=== PATIENT | male | born 1950 | race Caucasian/White ===

== ENCOUNTER 2017-12-04 18:30 | Inpatient (IN) | payer MEDICARE, MEDICAID, SELFPAY ==
[2017-02-20 12:18] VITALS: BMI 46.4
[2017-12-04 18:59] VITALS: BP 154/86; PULSE 102; RESP 18; TEMP 36.7; O2SAT 94; BMI 35.9
--- NOTE | 2017-12-04 19:48 | PCM.HP.STD ---
Problem List (1) Fall Status: Acute (2) Traumatic brain injury Status: Acute (3) Intraparenchymal hemorrhage of brain Status: Acute (4) Subarachnoid hemorrhage Status: Acute (5) Subdural hematoma Status: Acute (6) Intraventricular hemorrhage Status: Acute (7) Right scapula fracture Status: Acute (8) Alcohol intoxication Status: Acute (9) Tobacco abuse Status: Chronic (10) Sleep apnea Status: Chronic (11) Acute respiratory failure Status: Acute (12) Acute kidney injury Status: Acute (13) Aspiration pneumonia Status: Acute (14) Dysphagia Status: Acute (15) Diabetes mellitus Status: Chronic (16) Insomnia Status: Chronic (17) Vitamin D deficiency Status: Chronic (18) Depression Status: Chronic (19) GERD (gastroesophageal reflux disease) Status: Chronic (20) BPH (benign prostatic hyperplasia) Status: Chronic (21) Restless leg syndrome Status: Chronic (22) Hyperlipidemia Status: Chronic Qualifiers: (23) COPD (chronic obstructive pulmonary disease) Status: Chronic (24) Hypertension Status: Chronic Qualifiers: (25) Morbid obesity Status: Chronic (26) CAD (coronary artery disease) Status: Chronic History of Present Illness Date of Admission: 12/04/17 Chief Complaint: Here for rehabilitation, strengthening, prior to disposition determination. The patient is a 67 year old Male with below past medical history presented to [facility] as trauma after a falling down 15 steps while intoxicated by alcohol. Patient suffered multiple brain bleeds including intraparenchymal hemorrhage, subarachnoid hemorrhage, subdural hematoma, intraventricular hemorrhage, pulmonary contusions. He had right scapular fracture which was treated conservatively without surgery, also had right iliac hematoma. Patient suffered right sided weakness, was intubated, and admitted to NSICU. His respiratory status improved, and he was extubated, and transferred to the floor. However, he was weak, and had increased respiratory secretions, developed respiratory distress, and was transferred back to SICU and reintubated. He was eventually weaned off ventilator and extubated, transferred to the floor again. Again, he went into respiratory distress, transferred back to SICU and reintubated. Was extubated again, became stronger, respiratory secretions decreased, and was able to clear his secretions. Due to risk of aspiration,failed swallowing study, NPO recommended, PEG tube was placed for feeding. Patient is DNRCC-A and does not want tracheostomy. He suffers right hemiplegia, flaccid paralysis. He is on home CPAP with setting of 14CM, with 5 Liters oxygen bled in. He is on Flagyl, Cefepime via left upper extremity PICC for aspiration pneumonia, fever. He has moist non-productive cough, and was given Lasix 40MG IV for fluid overload. He is incontinent of urine. He has stage 2 coccyx pressure ulcer. 12/04/2017 Admit to TCU with debility, here for rehabilitation, strengthening, prior to disposition determination. 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) S/P CABG x3 with right radial to LAD, SVG to RCA, and SVG to OM 2; stenting to LAD in February 2017; Presence of aortocoronary bypass graft (Chronic) CABG X 3 2001 ?, Radial artery -LAD, SVG-RCA, SVG-OM2 Non-ST elevation myocardial infarction (NSTEMI), initial care episode (Chronic) 02/16/17 Nicotine dependence (Chronic) Ischemic cardiomyopathy (Chronic) Restless leg syndrome (Chronic) Hyperlipidemia (Chronic) COPD (chronic obstructive pulmonary disease) (Chronic) Hypertension (Chronic) Morbid obesity (Chronic) CAD (coronary artery disease) (Chronic) Stented coronary artery (Chronic) [facility] w/[id number] LAD (grafts occluded X 3) 02/20/17 Former smoker (Chronic) quit February 2017 Diabetes mellitus type 2 in obese (Chronic) Hx of CABG (Chronic) CABG X3 rADIAL ARTERY-lad, svg-rca, svg-om2. MULTIPLE CORONARY STENTS Medical History: Medical History (Last Updated 10/13/17 @ 09:44 by Jeannie Zavala) Encounter for long-term current use of high risk medication (Acute) Z79.899 Obstructive sleep apnea (Acute) G47.33 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) I25.810 S/P CABG x3 with right radial to LAD, SVG to RCA, and SVG to OM 2; stenting to LAD in February 2017; Non-ST elevation myocardial infarction (NSTEMI), initial care episode (Chronic) I21.4 02/16/17 Nicotine dependence (Chronic) F17.200 Ischemic cardiomyopathy (Chronic) I25.5 FUO (fever of unknown origin) (Acute) Restless leg syndrome (Chronic) Hyperlipidemia (Chronic) E78.5 Hypertensive emergency (Acute) I16.1 Demand ischemia (Acute) I24.8 COPD (chronic obstructive pulmonary disease) (Chronic) J44.9 Hypertension (Chronic) I10 Morbid obesity (Chronic) E66.01 Systolic CHF, acute (Acute) I50.21 CAD (coronary artery disease) (Chronic) I25.10 Stented coronary artery (Chronic) [facility] w/[id number] LAD (grafts occluded X 3) 02/20/17 Former smoker (Chronic) Z87.891 quit February 2017 Acute respiratory failure with hypoxemia (Acute) J96.01 Diabetes mellitus type 2 in obese (Chronic) E11.69, E66.9 Allergies atorvastatin Allergy (Verified 10/16/17 09:47) Hives cilostazol Allergy (Verified 10/16/17 09:47) Hives colestipol Allergy (Verified 10/16/17 09:47) Hives diltiazem Allergy (Verified 10/16/17 09:47) Hives gemfibrozil Allergy (Verified 10/16/17 09:47) Hives naproxen [From Naprosyn] Allergy (Verified 10/16/17 09:47) Hives niacin Allergy (Verified 10/16/17 09:47) Hives Penicillins Allergy (Verified 10/16/17 09:47) Hives pravastatin Allergy (Verified 10/16/17 09:47) Hives procaine [From Novocain] Allergy (Verified 10/16/17 09:47) Hives rosuvastatin Allergy (Verified 10/16/17 09:47) Hives simvastatin Allergy (Verified 10/16/17 09:47) Hives isosorbide Adverse Reaction (Severe, Verified 10/16/17 09:47) Unknown Home Medications: Ambulatory Orders Medication Instructions Recorded Amitriptyline HCl 100 mg GT QHS 02/16/17 Cholecalciferol (Vitamin D3) 5,000 unit GT DAILY 02/16/17 [Vitamin D3] Duloxetine HCl 60 mg GT DAILY 02/16/17 Lactase 1 tab GT TIDCM 02/16/17 Lansoprazole [Prevacid] 30 mg GT BIDCM 02/16/17 Nitroglycerin 0.4 mg SL PRN PRN 02/16/17 Ropinirole HCl [Requip] 0.5 mg GT QHS 02/16/17 Tamsulosin HCl [Flomax] 0.4 mg GT QHS 02/16/17 traMADol [Ultram] 50 mg GT TID PRN 02/16/17 Nicotine [Nicoderm] 14 mg TRANSDERM. DAILY 03/30/17 lisinopril 20 mg tablet 20 mg GT QDAY 05/20/17 glyburide 5 mg tablet 5 mg GT DAILY@1800 10/13/17 Acetaminophen 650 mg GT 4X/DAY PRN 12/04/17 Acetylcysteine 200 mg MC Q4H 12/04/17 Albuterol Inhaler [Ventolin Hfa 1 - 2 puff INHALATION 4X/DAY PRN 12/04/17 (SP)] PRN Amantadine Liquid 100 mg GT DAILY 12/04/17 Aspirin [Aspirin, Baby] 81 mg GT DAILY@0800 12/04/17 Budesonide Aerosol [Pulmicort 0.5 mg INHALATION BID 12/04/17 Aerosol] Cefepime HCl [Maxipime] 2 gm IV Q12 12/04/17 Clopidogrel Bisulfate [Plavix] 75 mg GT DAILY 12/04/17 Furosemide [Lasix] 40 mg GT BID 12/04/17 Guaifenesin [Mucinex] 600 mg PO BID 12/04/17 Insulin Glargine,Hum.rec.anlog 10 unit SQ DAILY@0600 12/04/17 [Lantus] Insulin Glargine,Hum.rec.anlog 15 unit SQ QHS 12/04/17 [Lantus] Ipratropium [Atrovent Aerosols] 0.5 mg INHALATION Q6H.RT 12/04/17 Isosorbide Mononitrate [Imdur] 60 mg GT BID 12/04/17 Magnesium Oxide [Mag-Ox 400] 400 mg GT TIDCM 12/04/17 Metoprolol Tartrate [Lopressor 75 mg GT TID 12/04/17 (beta stepan)] Metronidazole [Flagyl] 500 mg IV Q8H 12/04/17 Potassium Chloride [K-Dur] 20 meq GT DAILY@0800 12/04/17 Pravastatin [Pravachol] 80 mg PO QHS 12/04/17 ranitidine 150 mg capsule 150 mg GT QHS 12/04/17 Surgical History: Surgical History (Last Reviewed 10/16/17 @ 09:47 by Adele Bueno) Presence of coronary angioplasty implant and graft (Acute) Z95.5 Presence of aortocoronary bypass graft (Chronic) Z95.1 CABG X 3 2002 ?, Radial artery -LAD, SVG-RCA, SVG-OM2 Hx of CABG (Chronic) CABG X3 rADIAL ARTERY-lad, svg-rca, svg-om2. MULTIPLE CORONARY STENTS Surgical History: angioplasty, coronary bypass surgery, - - PEG tube. Psychiatric History: Depression Lives: Spouse/ Significant Other Smoking Status: Current every day smoker Tobacco Use: Cigarettes Alcohol: Heavy Drugs: None - *Family History Maternal Family History: Family History (Last Updated 10/16/17 @ 09:48 by Adele Bueno) Brother Heart disease Father Heart disease History Items: No pertinent history Paternal Family History: Family History (Last Updated 10/16/17 @ 09:48 by Adele Bueno) Brother Heart disease Father Heart disease History Items: No pertinent history Review of Systems Constitutional: Denies: Chills, Fever, Weight Change HEENT: Denies: Head Aches, Sinus Congestion, Sinus Drainage Cardiovascular: Denies: Chest Pain, Palpitations Respiratory: Denies: Cough, Shortness of breath at rest, Sputum production Gastrointestinal: Denies: Abdominal Pain, Nausea, Vomiting Genitourinary: Denies: Dysuria Musculoskeletal: Denies: Joint Pain, Joint Tenderness Skin: Denies: Rash, Wounds Neurological: Denies: Numbness, Tingling, Focal weakness Psychiatric: Denies: Anxiety, Depression, Homicidal Ideations, Suicidal Ideations Hematologic/ Lymphatic: Denies: Easy Bruising, Easy Bleeding VTE Information - Inpt Only VTE Present on Admission: No VTE Mechan Device Prophylaxis: Knee High OTILIA Hose VTE Pharm Prophylaxis ordered?: No Patient Problems: Active and Suspected Problems (Last Updated 10/13/17 @ 09:44 by Jeannie Zavala) Fall (Acute) Traumatic brain injury (Acute) Intraparenchymal hemorrhage of brain (Acute) Subarachnoid hemorrhage (Acute) Subdural hematoma (Acute) Intraventricular hemorrhage (Acute) Right scapula fracture (Acute) Alcohol intoxication (Acute) Acute respiratory failure (Acute) Acute kidney injury (Acute) Aspiration pneumonia (Acute) Dysphagia (Acute) - Physical Exam General: Alert, Oriented x3, Cooperative HEENT: Atraumatic, PERRLA, EOMI, Normocephalic Neck: Supple, No JVD, Negative Carotid Bruits Lungs: Clear to auscultation, Normal air movement Cardiovascular: Regular rate, No murmurs Abdomen: Bowel Sounds Present, Soft, Non Tender, - - PEG. Extremities: No edema, Capillary Refill Less than 3 Seconds, - - LUE PICC line. Skin: No rashes, No breakdown Musculoskeletal: No Tenderness to Palpation of Joints or Extremities Neurological: Cranial nerves II-XII grossly intact, - - Right hemiplegia. Psych/Mental Status: Normal Affect, Appropriate Finger Stick Blood Glucose 95 Assessment/Plan All Active Problems (Last Updated 10/13/17 @ 09:44 by Jeannie Zavala) Fall (Acute) Traumatic brain injury (Acute) Intraparenchymal hemorrhage of brain (Acute) Subarachnoid hemorrhage (Acute) Subdural hematoma (Acute) Intraventricular hemorrhage (Acute) Right scapula fracture (Acute) Alcohol intoxication (Acute) Acute respiratory failure (Acute) Acute kidney injury (Acute) Aspiration pneumonia (Acute) Dysphagia (Acute) Encounter for long-term current use of high risk medication (Acute) Obstructive sleep apnea (Acute) Presence of coronary angioplasty implant and graft (Acute) FUO (fever of unknown origin) (Acute) Hypertensive emergency (Acute) Demand ischemia (Acute) Systolic CHF, acute (Acute) Acute respiratory failure with hypoxemia (Acute) Acute respiratory failure with hypoxia and hypercarbia (Resolved) Multifocal community-acquired pneumonia (Resolved) Severe sepsis (Resolved) 67 year old male with below past medical history hospitalized for fall, traumatic brain injury, brain bleed resulting in right hemiplegia, complicated by aspiration pneumonia requiring PEG tube placement, admitted to TCU with debility, here for rehabilitation, strengthening, prior to disposition determination. Debility - PT/OT. Dysphagia - ST. Pain - Tylenol 650MG GT Q6H PRN mild pain, Tramadol 50MG TID PRN moderate pain. Bowel - Miralax 17GM GT daily, Dulcolax 10MG GT daily PRN. Pneumonia vaccination - Administer Prevnar 13 and/or Pneumovax 23 as necessary. DVT prophylaxis - Hold due to recent brain bleed. COPD - Pulmicort 0.5MG BID, Albuterol MDI 1-2 puffs 4x/day PRN, Atrovent 0.5MG Q6H. Congestion - Mucomyst 200MG inhaled Q4H thru 12/07/2017, Mucinex 600MG GT BID. Traumatic Brain Injury - Amantadine 100MG GT daily. Restless Legs syndrome - Mirapex 0.25MG GT QHS, Taper off Elavil ([employer] Drug) Coronary Artery Disease - Metoprolol 75MG TID, Aspirin 81MG daily, NTG 0.4MG PRN. Aspiration pneumonia - Cefepime 2GM IV Q12H thru 12/06/2017, Flagyl 500MG IV Q8H thru 12/07/2017. Vitamin D deficiency - D3 5000IU daily. Depression - Monitor. Edema - Lasix 40MG GT BID. Diabetes Mellitus II - Lantus 15 units BID, Humalog 10 units TID. Lactose intolerance - Lactase 1 tablet GT TID. GERD - Lansoprazole 30MG GT BID. Hypomagnesemia - Mag Oxide 400MG GT TID. Tobacco Abuse - Nicotine patch 14MG TD daily. Nutrition - Pivot 1.5 108ML/hour. Hypokalemia - K-Dur 20MEQ daily. Hyperlipidemia - Pravastatin 80MG GT QHS. BPH - Monitor. Code Status - DNRCC-A, resident does not want trach, if he does not progress with therapy, consider hospice care.
--- NOTE | 2017-12-04 20:04 | HP.PCM_ITS ---
Problem List (1) Fall Status: Acute (2) Traumatic brain injury Status: Acute (3) Intraparenchymal hemorrhage of brain Status: Acute (4) Subarachnoid hemorrhage Status: Acute (5) Subdural hematoma Status: Acute (6) Intraventricular hemorrhage Status: Acute (7) Right scapula fracture Status: Acute (8) Alcohol intoxication Status: Acute (9) Tobacco abuse Status: Chronic (10) Sleep apnea Status: Chronic (11) Acute respiratory failure Status: Acute (12) Acute kidney injury Status: Acute (13) Aspiration pneumonia Status: Acute (14) Dysphagia Status: Acute (15) Diabetes mellitus Status: Chronic (16) Insomnia Status: Chronic (17) Vitamin D deficiency Status: Chronic (18) Depression Status: Chronic (19) GERD (gastroesophageal reflux disease) Status: Chronic (20) BPH (benign prostatic hyperplasia) Status: Chronic (21) Restless leg syndrome Status: Chronic (22) Hyperlipidemia Status: Chronic Qualifiers: (23) COPD (chronic obstructive pulmonary disease) Status: Chronic (24) Hypertension Status: Chronic Qualifiers: (25) Morbid obesity Status: Chronic (26) CAD (coronary artery disease) Status: Chronic History of Present Illness Date of Admission: 12/04/17 Chief Complaint: Here for rehabilitation, strengthening, prior to disposition determination. The patient is a 67 year old Male with below past medical history presented to [facility] as trauma after a falling down 15 steps while intoxicated by alcohol. Patient suffered multiple brain bleeds including intraparenchymal hemorrhage, subarachnoid hemorrhage, subdural hematoma, intraventricular hemorrhage, pulmonary contusions. He had right scapular fracture which was treated conservatively without surgery, also had right iliac hematoma. Patient suffered right sided weakness, was intubated, and admitted to NSICU. His respiratory status improved, and he was extubated, and transferred to the floor. However, he was weak, and had increased respiratory secretions, developed respiratory distress, and was transferred back to SICU and reintubated. He was eventually weaned off ventilator and extubated, transferred to the floor again. Again, he went into respiratory distress, transferred back to SICU and reintubated. Was extubated again, became stronger, respiratory secretions decreased, and was able to clear his secretions. Due to risk of aspiration,failed swallowing study, NPO recommended, PEG tube was placed for feeding. Patient is DNRCC-A and does not want tracheostomy. He suffers right hemiplegia, flaccid paralysis. He is on home CPAP with setting of 14CM, with 5 Liters oxygen bled in. He is on Flagyl, Cefepime via left upper extremity PICC for aspiration pneumonia , fever. He has moist non-productive cough, and was given Lasix 40MG IV for fluid overload. He is incontinent of urine. He has stage 2 coccyx pressure ulcer. 12/04/2017 Admit to TCU with debility, here for rehabilitation, strengthening, prior to disposition determination. 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) S/P CABG x3 with right radial to LAD, SVG to RCA, and SVG to OM 2; stenting to LAD in February 2017; Presence of aortocoronary bypass graft (Chronic) CABG X 3 2001 ?, Radial artery -LAD, SVG-RCA, SVG-OM2 Non-ST elevation myocardial infarction (NSTEMI), initial care episode (Chronic) 02/16/17 Nicotine dependence (Chronic) Ischemic cardiomyopathy (Chronic) Restless leg syndrome (Chronic) Hyperlipidemia (Chronic) COPD (chronic obstructive pulmonary disease) (Chronic) Hypertension (Chronic) Morbid obesity (Chronic) CAD (coronary artery disease) (Chronic) Stented coronary artery (Chronic) [facility] w/PRC-EYN-Pbql LAD (grafts occluded X 3) 02/20/17 Former smoker (Chronic) quit February 2017 Diabetes mellitus type 2 in obese (Chronic) Hx of CABG (Chronic) CABG X3 rADIAL ARTERY-lad, svg-rca, svg-om2. MULTIPLE CORONARY STENTS Medical History: Medical History (Last Updated 10/13/17 @ 09:44 by Jeannie Zavala) Encounter for long-term current use of high risk medication (Acute) Z79.899 Obstructive sleep apnea (Acute) G47.33 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) I25.810 S/P CABG x3 with right radial to LAD, SVG to RCA, and SVG to OM 2; stenting to LAD in February 2017; Non-ST elevation myocardial infarction (NSTEMI), initial care episode (Chronic) I21.4 02/16/17 Nicotine dependence (Chronic) F17.200 Ischemic cardiomyopathy (Chronic) I25.5 FUO (fever of unknown origin) (Acute) Restless leg syndrome (Chronic) Hyperlipidemia (Chronic) E78.5 Hypertensive emergency (Acute) I16.1 Demand ischemia (Acute) I24.8 COPD (chronic obstructive pulmonary disease) (Chronic) J44.9 Hypertension (Chronic) I10 Morbid obesity (Chronic) E66.01 Systolic CHF, acute (Acute) I50.21 CAD (coronary artery disease) (Chronic) I25.10 Stented coronary artery (Chronic) [facility] w/VCI-DEX-Xhpw LAD (grafts occluded X 3) 02/20/17 Former smoker (Chronic) Z87.891 quit February 2017 Acute respiratory failure with hypoxemia (Acute) J96.01 Diabetes mellitus type 2 in obese (Chronic) E11.69, E66.9 Allergies atorvastatin Allergy (Verified 10/16/17 09:47) Hives cilostazol Allergy (Verified 10/16/17 09:47) Hives colestipol Allergy (Verified 10/16/17 09:47) Hives diltiazem Allergy (Verified 10/16/17 09:47) Hives gemfibrozil Allergy (Verified 10/16/17 09:47) Hives naproxen [From Naprosyn] Allergy (Verified 10/16/17 09:47) Hives niacin Allergy (Verified 10/16/17 09:47) Hives Penicillins Allergy (Verified 10/16/17 09:47) Hives pravastatin Allergy (Verified 10/16/17 09:47) Hives procaine [From Novocain] Allergy (Verified 10/16/17 09:47) Hives rosuvastatin Allergy (Verified 10/16/17 09:47) Hives simvastatin Allergy (Verified 10/16/17 09:47) Hives isosorbide Adverse Reaction (Severe, Verified 10/16/17 09:47) Unknown Home Medications: Ambulatory Orders Medication Instructions Recorded Amitriptyline HCl 100 mg GT QHS 02/16/17 Cholecalciferol (Vitamin D3) 5,000 unit GT DAILY 02/16/17 [Vitamin D3] Duloxetine HCl 60 mg GT DAILY 02/16/17 Lactase 1 tab GT TIDCM 02/16/17 Lansoprazole [Prevacid] 30 mg GT BIDCM 02/16/17 Nitroglycerin 0.4 mg SL PRN PRN 02/16/17 Ropinirole HCl [Requip] 0.5 mg GT QHS 02/16/17 Tamsulosin HCl [Flomax] 0.4 mg GT QHS 02/16/17 traMADol [Ultram] 50 mg GT TID PRN 02/16/17 Nicotine [Nicoderm] 14 mg TRANSDERM. DAILY 03/30/17 lisinopril 20 mg tablet 20 mg GT QDAY 05/20/17 glyburide 5 mg tablet 5 mg GT DAILY@1800 10/13/17 Acetaminophen 650 mg GT 4X/DAY PRN 12/04/17 Acetylcysteine 200 mg MC Q4H 12/04/17 Albuterol Inhaler [Ventolin Hfa 1 - 2 puff INHALATION 4X/DAY PRN 12/04/17 (SP)] PRN Amantadine Liquid 100 mg GT DAILY 12/04/17 Aspirin [Aspirin, Baby] 81 mg GT DAILY@0800 12/04/17 Budesonide Aerosol [Pulmicort 0.5 mg INHALATION BID 12/04/17 Aerosol] Cefepime HCl [Maxipime] 2 gm IV Q12 12/04/17 Clopidogrel Bisulfate [Plavix] 75 mg GT DAILY 12/04/17 Furosemide [Lasix] 40 mg GT BID 12/04/17 Guaifenesin [Mucinex] 600 mg PO BID 12/04/17 Insulin Glargine,Hum.rec.anlog 10 unit SQ DAILY@0600 12/04/17 [Lantus] Insulin Glargine,Hum.rec.anlog 15 unit SQ QHS 12/04/17 [Lantus] Ipratropium [Atrovent Aerosols] 0.5 mg INHALATION Q6H.RT 12/04/17 Isosorbide Mononitrate [Imdur] 60 mg GT BID 12/04/17 Magnesium Oxide [Mag-Ox 400] 400 mg GT TIDCM 12/04/17 Metoprolol Tartrate [Lopressor 75 mg GT TID 12/04/17 (beta stepan)] Metronidazole [Flagyl] 500 mg IV Q8H 12/04/17 Potassium Chloride [K-Dur] 20 meq GT DAILY@0800 12/04/17 Pravastatin [Pravachol] 80 mg PO QHS 12/04/17 ranitidine 150 mg capsule 150 mg GT QHS 12/04/17 Surgical History: Surgical History (Last Reviewed 10/16/17 @ 09:47 by Adele Bueno) Presence of coronary angioplasty implant and graft (Acute) Z95.5 Presence of aortocoronary bypass graft (Chronic) Z95.1 CABG X 3 2002 ?, Radial artery -LAD, SVG-RCA, SVG-OM2 Hx of CABG (Chronic) CABG X3 rADIAL ARTERY-lad, svg-rca, svg-om2. MULTIPLE CORONARY STENTS Surgical History: angioplasty, coronary bypass surgery, - - PEG tube. Psychiatric History: Depression Lives: Spouse/ Significant Other Smoking Status: Current every day smoker Tobacco Use: Cigarettes Alcohol: Heavy Drugs: None - *Family History Maternal Family History: Family History (Last Updated 10/16/17 @ 09:48 by Adele Bueno) Brother Heart disease Father Heart disease History Items: No pertinent history Paternal Family History: Family History (Last Updated 10/16/17 @ 09:48 by Adele Bueno) Brother Heart disease Father Heart disease History Items: No pertinent history Review of Systems Constitutional: Denies: Chills, Fever, Weight Change HEENT: Denies: Head Aches, Sinus Congestion, Sinus Drainage Cardiovascular: Denies: Chest Pain, Palpitations Respiratory: Denies: Cough, Shortness of breath at rest, Sputum production Gastrointestinal: Denies: Abdominal Pain, Nausea, Vomiting Genitourinary: Denies: Dysuria Musculoskeletal: Denies: Joint Pain, Joint Tenderness Skin: Denies: Rash, Wounds Neurological: Denies: Numbness, Tingling, Focal weakness Psychiatric: Denies: Anxiety, Depression, Homicidal Ideations, Suicidal Ideations Hematologic/ Lymphatic: Denies: Easy Bruising, Easy Bleeding VTE Information - Inpt Only VTE Present on Admission: No VTE Mechan Device Prophylaxis: Knee High OTILIA Hose VTE Pharm Prophylaxis ordered?: No Patient Problems: Active and Suspected Problems (Last Updated 10/13/17 @ 09:44 by Jeannie Zavala) Fall (Acute) Traumatic brain injury (Acute) Intraparenchymal hemorrhage of brain (Acute) Subarachnoid hemorrhage (Acute) Subdural hematoma (Acute) Intraventricular hemorrhage (Acute) Right scapula fracture (Acute) Alcohol intoxication (Acute) Acute respiratory failure (Acute) Acute kidney injury (Acute) Aspiration pneumonia (Acute) Dysphagia (Acute) - Physical Exam General: Alert, Oriented x3, Cooperative HEENT: Atraumatic, PERRLA, EOMI, Normocephalic Neck: Supple, No JVD, Negative Carotid Bruits Lungs: Clear to auscultation, Normal air movement Cardiovascular: Regular rate, No murmurs Abdomen: Bowel Sounds Present, Soft, Non Tender, - - PEG. Extremities: No edema, Capillary Refill Less than 3 Seconds, - - LUE PICC line. Skin: No rashes, No breakdown Musculoskeletal: No Tenderness to Palpation of Joints or Extremities Neurological: Cranial nerves II-XII grossly intact, - - Right hemiplegia. Psych/Mental Status: Normal Affect, Appropriate Finger Stick Blood Glucose 95 Assessment/Plan All Active Problems (Last Updated 10/13/17 @ 09:44 by Jeannie Zavala) Fall (Acute) Traumatic brain injury (Acute) Intraparenchymal hemorrhage of brain (Acute) Subarachnoid hemorrhage (Acute) Subdural hematoma (Acute) Intraventricular hemorrhage (Acute) Right scapula fracture (Acute) Alcohol intoxication (Acute) Acute respiratory failure (Acute) Acute kidney injury (Acute) Aspiration pneumonia (Acute) Dysphagia (Acute) Encounter for long-term current use of high risk medication (Acute) Obstructive sleep apnea (Acute) Presence of coronary angioplasty implant and graft (Acute) FUO (fever of unknown origin) (Acute) Hypertensive emergency (Acute) Demand ischemia (Acute) Systolic CHF, acute (Acute) Acute respiratory failure with hypoxemia (Acute) Acute respiratory failure with hypoxia and hypercarbia (Resolved) Multifocal community-acquired pneumonia (Resolved) Severe sepsis (Resolved) 67 year old male with below past medical history hospitalized for fall, traumatic brain injury, brain bleed resulting in right hemiplegia, complicated by aspiration pneumonia requiring PEG tube placement, admitted to TCU with debility, here for rehabilitation, strengthening, prior to disposition determination. * Debility - PT/OT. * Dysphagia - ST. * Pain - Tylenol 650MG GT Q6H PRN mild pain, Tramadol 50MG TID PRN moderate pain. * Bowel - Miralax 17GM GT daily, Dulcolax 10MG GT daily PRN. * Pneumonia vaccination - Administer Prevnar 13 and/or Pneumovax 23 as necessary. * DVT prophylaxis - Hold due to recent brain bleed. * COPD - Pulmicort 0.5MG BID, Albuterol MDI 1-2 puffs 4x/day PRN, Atrovent 0.5MG Q6H. * Congestion - Mucomyst 200MG inhaled Q4H thru 12/07/2017, Mucinex 600MG GT BID. * Traumatic Brain Injury - Amantadine 100MG GT daily. * Restless Legs syndrome - Mirapex 0.25MG GT QHS, Taper off Elavil ([employer]) * Coronary Artery Disease - Metoprolol 75MG TID, Aspirin 81MG daily, NTG 0.4MG PRN. * Aspiration pneumonia - Cefepime 2GM IV Q12H thru 12/06/2017, Flagyl 500MG IV Q8H thru 12/07/2017. * Vitamin D deficiency - D3 5000IU daily. * Depression - Monitor. * Edema - Lasix 40MG GT BID. * Diabetes Mellitus II - Lantus 15 units BID, Humalog 10 units TID. * Lactose intolerance - Lactase 1 tablet GT TID. * GERD - Lansoprazole 30MG GT BID. * Hypomagnesemia - Mag Oxide 400MG GT TID. * Tobacco Abuse - Nicotine patch 14MG TD daily. * Nutrition - Pivot 1.5 108ML/hour. * Hypokalemia - K-Dur 20MEQ daily. * Hyperlipidemia - Pravastatin 80MG GT QHS. * BPH - Monitor. * Code Status - DNRCC-A, resident does not want trach, if he does not progress with therapy, consider hospice care.
[2017-12-04 20:05] VITALS: BMI 35.9
[2017-12-04 21:06] LABS: Bedside Glucose 128 mg/dL (70-110)
[2017-12-04 21:06] LABS: Bedside Glucose 131 mg/dL (70-110)
[2017-12-04 22:41] VITALS: PULSE 110; RESP 20; O2SAT 95
[2017-12-04] MEDS: Cefepime HCl 2 GM in 0.9% NS 100 ML Minibag Q12 IV (23:31)
[2017-12-04 23:39] VITALS: BP 159/79; PULSE 108
[2017-12-04] MEDS: Pramipexole Di-HCl 0.25 MG Tablet GT (23:39)
[2017-12-04] MEDS: Amitriptyline 100 MG Tablet GT (23:39)
[2017-12-04] MEDS: traMADol 50 MG Tablet GT (23:39)
[2017-12-04] MEDS: Metoprolol Tartrate 25 MG Tablet 75 MG GT (23:39)
[2017-12-04] MEDS: 0.9% NaCl IVPB Med Flush (250 mL) 15 ML IV (23:58)
[2017-12-05] VITALS (8 sets, daily range): BP systolic 134–155; BP diastolic 68–76; PULSE 87–107; RESP 16–25; TEMP 36.7; O2SAT 94–98
[2017-12-05] MEDS: Acetylcysteine 800 MG/4 ML VIAL.NEB. 200 MG INHALATION ×4 (00:09→19:02)
[2017-12-05] MEDS: Ipratropium 0.5 MG/2.5 ML SOLUTION INHALATION ×4 (00:10→19:02)
--- NOTE | 2017-12-05 01:59 | NURSING ---
Mucinex ordered adjusted with Dr Luis for peg tube administration. Pharmacist Darnell recommends starting pt at Robitussin 10ml QID and increase as needed. Will continue to monitor.
[2017-12-05] MEDS: Cefepime HCl 2 GM in 0.9% NS 100 ML Minibag Q12 IV ×2 (04:59→18:00)
[2017-12-05] MEDS: Clopidogrel Bisulfate 75 MG Tablet GT (05:05)
[2017-12-05] MEDS: Furosemide 40 MG Tablet GT ×2 (05:05→18:04)
[2017-12-05] MEDS: Lisinopril 20 MG Tablet GT (05:05)
[2017-12-05] MEDS: Metoprolol Tartrate 25 MG Tablet 75 MG GT ×3 (05:06→21:14)
[2017-12-05] MEDS: Polyethylene Glycol 3350 17 GM PACKET GT (05:06)
[2017-12-05] MEDS: guaiFENesin 10 ML UDC (200MG/10ML) GT ×4 (05:22→21:16)
[2017-12-05] MEDS: AMANTADINE HCL 50 MG/5ML 100 MG GT (05:22)
[2017-12-05 07:01] LABS: Bedside Glucose 179 mg/dL (70-110)
[2017-12-05 07:11] LABS: Absolute Lymphocyte Count 1.81 X10^3/ul (0.83-4.51); Absolute Neutrophil Count 6.7 X10^3/uL (2.0-7.7); Basophil# 0.04 X10^3/uL; Basophil% 0.4 % (0-1); Eosinophil# 0.11 X10^3/uL; Eosinophils% 1.1 % (0-5); Hematocrit 34.6 % (40-54); Hemoglobin 10.7 g/dl (13.0-16.5); Lymphocyte # 1.81 X10^3/ul (4.0); Lymphocyte % 18.6 % (19-41); Mean Corp Hgb Conc 30.9 g/gl (32-36); Mean Corpuscular Hgb 31.4 pg (27.0-32.0); Mean Corpuscular Volume 101.5 fL (80-94); Mean Platelet Vol. 11.1 fl (6.2-12.0); Monocyte# 0.96 X10^3/uL; Monocyte% 9.8 % (0-10); Neutrophil # 6.74 X10^3/uL (2.7-7.7); Neutrophil % 69.2 % (47-70); Platelet Count 251 K/mm3 (150-450); RBC Distribution Width SD 57.1 fl (35.1-43.9); Red Blood Count 3.41 M/mm3 (4.6-6.2); White Blood Count 9.8 K/mm3 (4.4-11.0)
[2017-12-05] MEDS: Budesonide Respules 0.5 MG/2 ML AMPUL.NEB. INHALATION ×2 (07:12→19:02)
[2017-12-05 07:14] LABS: POSITIVE COUNT NO; POSITIVE DIFFERENTIAL NO; POSITIVE MORPHOLOGY NO
[2017-12-05 07:52] LABS: Anion Gap 6 (5-15); BUN 21 mg/dL (7-18); BUN/Creat Ratio 38.9 RATIO (10-20); Calcium,Total 9.4 mg/dL (8.5-10.1); Chloride 104 mmol/L (98-107); Creatinine, Serum 0.54 mg/dL (0.70-1.30); EST Glomerular Filtration Rate 161 mL/min (>60); Est Glom Filt Rate - Afr Amer 195 mL/min (>60); Estimated Creatinine Clearance 78.68 ml/min; Glucose 172 mg/dL (74-106); Potassium 3.3 mmol/L (3.5-5.1); Sodium Level 142 mmol/L (136-145)
[2017-12-05] MEDS: Aspirin 81 MG TAB.CHEW GT (10:03)
[2017-12-05] MEDS: Magnesium Oxide 400 MG Tablet GT ×3 (10:04→18:04)
[2017-12-05] MEDS: Pivot 1.5 Cal 1,000 ML 108 ML GT (10:06)
[2017-12-05 11:51] LABS: Bedside Glucose 243 mg/dL (70-110)
[2017-12-05] MEDS: Tuberculin,Purif.prot.deriv. 50 TU/ML Vial 5 ML ID (12:36)
[2017-12-05] MEDS: 0.9% NaCl PICC Flush IV ×2 (13:45→21:31)
--- NOTE | 2017-12-05 15:01 | NURSING ---
Dr Brown from [facility] called this RN and explained that some meds that were on their D/C list were not actually being given. they were holding the lisinopril, gliburide, plavix, flomax, imdur, and celexa. he stated that they had ordered amantadine for 30 days to improve neuro function. antibiotics to be given at least until December 06 as prophylactic measure of aspiration pneumonia. Dr Luis was informed and stated to follow med recommendations per [facility] MD. Dr Brown said to call him if there were any further questions or concerns.
[2017-12-05 16:45] LABS: Bedside Glucose 346 mg/dL (70-110)
[2017-12-05 21:11] LABS: Bedside Glucose 362 mg/dL (70-110)
[2017-12-05] MEDS: Amitriptyline 25 MG Tablet 50 MG GT (21:14)
[2017-12-05] MEDS: Pravastatin 80 MG Tablet GT (21:14)
[2017-12-05] MEDS: Pramipexole Di-HCl 0.25 MG Tablet GT (21:14)
[2017-12-05] MEDS: 0.9% NaCl IVPB Med Flush (250 mL) 15 ML IV (21:31)
--- NOTE | 2017-12-05 22:17 | NURSING ---
Dr Luis aware of blood sugar of 362 this evening. Insulins previously adjusted, NNO.
[2017-12-06] VITALS (7 sets, daily range): BP systolic 141–170; BP diastolic 69–89; PULSE 78–101; RESP 18–24; TEMP 36.3; O2SAT 24–97
[2017-12-06] MEDS: Cefepime HCl 2 GM in 0.9% NS 100 ML Minibag Q12 IV ×2 (05:10→17:58)
[2017-12-06] MEDS: 0.9% NaCl PICC Flush IV ×3 (05:10→21:52)
[2017-12-06] MEDS: Furosemide 40 MG Tablet GT ×2 (06:24→17:57)
[2017-12-06] MEDS: AMANTADINE HCL 50 MG/5ML 100 MG GT (06:24)
[2017-12-06] MEDS: Polyethylene Glycol 3350 17 GM PACKET GT (06:25)
[2017-12-06] MEDS: Metoprolol Tartrate 25 MG Tablet 75 MG GT ×3 (06:25→21:52)
[2017-12-06] MEDS: guaiFENesin 10 ML UDC (200MG/10ML) GT ×4 (06:26→22:13)
[2017-12-06 06:32] LABS: Anion Gap 8 (5-15); BUN 23 mg/dL (7-18); BUN/Creat Ratio 43.9 RATIO (10-20); Chloride 104 mmol/L (98-107); Creatinine, Serum 0.52 mg/dL (0.70-1.30); EST Glomerular Filtration Rate 167 mL/min (>60); Est Glom Filt Rate - Afr Amer 202 mL/min (>60); Estimated Creatinine Clearance 78.68 ml/min; Glucose 214 mg/dL (74-106); Potassium 3.6 mmol/L (3.5-5.1); Sodium Level 143 mmol/L (136-145)
[2017-12-06 07:06] LABS: Bedside Glucose 194 mg/dL (70-110)
[2017-12-06] MEDS: Ipratropium 0.5 MG/2.5 ML SOLUTION INHALATION ×3 (07:08→19:35)
[2017-12-06] MEDS: Budesonide Respules 0.5 MG/2 ML AMPUL.NEB. INHALATION ×2 (07:08→19:40)
[2017-12-06] MEDS: Acetylcysteine 800 MG/4 ML VIAL.NEB. 200 MG INHALATION ×3 (07:08→19:35)
[2017-12-06] MEDS: Aspirin 81 MG TAB.CHEW GT (09:44)
[2017-12-06] MEDS: Magnesium Oxide 400 MG Tablet GT ×3 (09:44→17:56)
[2017-12-06] MEDS: Insulin Lispro 100 UNIT/ML INSULN.PEN 10 UNIT SC ×3 (09:53→17:53)
[2017-12-06] MEDS: Pivot 1.5 Cal 1,000 ML 108 ML GT (10:30)
[2017-12-06 11:46] LABS: Bedside Glucose 215 mg/dL (70-110)
[2017-12-06 17:10] LABS: Bedside Glucose 344 mg/dL (70-110)
[2017-12-06 20:55] LABS: Bedside Glucose 367 mg/dL (70-110)
[2017-12-06] MEDS: Amitriptyline 25 MG Tablet 50 MG GT (21:52)
[2017-12-06] MEDS: Pramipexole Di-HCl 0.25 MG Tablet GT (21:52)
[2017-12-06] MEDS: Pravastatin 80 MG Tablet GT (21:52)
[2017-12-06] MEDS: Menthol/Lanolin/Calamine/Znox 113 GM Tube 1 APPLIC TOPICAL (22:01)
[2017-12-07] VITALS (7 sets, daily range): BP systolic 152–155; BP diastolic 68–85; PULSE 89–107; RESP 16–20; TEMP 36.7; O2SAT 92–99
[2017-12-07 02:46] LABS: Bedside Glucose 207 mg/dL (70-110)
[2017-12-07] MEDS: 0.9% NaCl PICC Flush IV ×3 (04:50→20:06)
[2017-12-07] MEDS: Magnesium Oxide 400 MG Tablet GT ×3 (04:52→17:59)
[2017-12-07] MEDS: Polyethylene Glycol 3350 17 GM PACKET GT (04:53)
[2017-12-07] MEDS: Metoprolol Tartrate 25 MG Tablet 75 MG GT ×3 (04:53→19:54)
[2017-12-07] MEDS: Furosemide 40 MG Tablet GT ×2 (04:53→18:00)
[2017-12-07] MEDS: AMANTADINE HCL 50 MG/5ML 100 MG GT (04:54)
[2017-12-07] MEDS: guaiFENesin 10 ML UDC (200MG/10ML) GT ×4 (05:09→19:54)
[2017-12-07] MEDS: Menthol/Lanolin/Calamine/Znox 113 GM Tube 1 APPLIC TOPICAL ×3 (05:09→19:54)
[2017-12-07] MEDS: Ipratropium 0.5 MG/2.5 ML SOLUTION INHALATION ×2 (06:33→12:27)
[2017-12-07] MEDS: Budesonide Respules 0.5 MG/2 ML AMPUL.NEB. INHALATION (06:33)
[2017-12-07] MEDS: Acetylcysteine 800 MG/4 ML VIAL.NEB. 200 MG INHALATION ×2 (06:33→12:27)
[2017-12-07 07:01] LABS: Bedside Glucose 242 mg/dL (70-110)
[2017-12-07] MEDS: Pivot 1.5 Cal 1,000 ML 108 ML GT ×2 (08:12→19:51)
[2017-12-07] MEDS: Insulin Lispro 100 UNIT/ML INSULN.PEN 10 UNIT SC ×3 (08:12→17:58)
[2017-12-07] MEDS: Aspirin 81 MG TAB.CHEW GT (08:13)
[2017-12-07 11:21] LABS: Bedside Glucose 363 mg/dL (70-110)
--- NOTE | 2017-12-07 12:14 | RAD_ITS ---
STUDY: X-RAY CHEST REASON FOR EXAM: Male, 67 years old. Positive TB test. TECHNIQUE: AP and lateral views of the chest. COMPARISON: Comparison is made with prior study dated April 02, 2017. FINDINGS: A left-sided PICC line catheter is in situ. The tip is at the junction of the superior vena cava and right atrium. Mild degree of increased markings at the lung bases. This is slightly worse on the left side. This may represent a mild degree of bibasilar atelectasis and/or infiltrate superimposed on scarring. Follow-up is recommended. There is no demonstrated pleural abnormality. Sternal cerclage wires and vascular clips are present from a prior sternotomy and coronary artery bypass graft procedure (CABG). Normal mediastinum and ita. Normal visualized pulmonary arteries. There is atherosclerotic tortuosity of the aortic arch and descending thoracic aorta. Normal visualized thoracic spine. Normal visualized ribs, clavicles, and shoulders. There is no demonstrated abnormality of the visualized soft tissue structures of the upper abdomen. RAD/Chest PA and Lateral IMPRESSION: Increased markings at the lung bases suggestive of atelectasis and/or early infiltrate superimposed on scarring. Electronically Signed: Bakari Briggs MD at 15:52 EDT Tel [phone], Service support ,
--- NOTE | 2017-12-07 12:16 | NURSING ---
Dr Luis notified of pt + TB test, pt states he had it 45 yrs. new order chest xray. also fire lookout changed water flushes to 160cc q4h, run pivot as ordered but change run time from 1999 to 0800
--- NOTE | 2017-12-07 14:26 | NURSING ---
Was consulted on patient for pressure area coccyx. pt is currently with therapy. will assess at a later time.
--- NOTE | 2017-12-07 14:53 | PCM.PN.RX ---
<Sid Amanda D - Last Filed: 12/07/17 14:53> Progress Note - Pharmacy Subjective: [facility] Admission Objective: Allergies atorvastatin Allergy (Verified 10/16/17 09:47) Hives cilostazol Allergy (Verified 10/16/17 09:47) Hives colestipol Allergy (Verified 10/16/17 09:47) Hives diltiazem Allergy (Verified 10/16/17 09:47) Hives gemfibrozil Allergy (Verified 10/16/17 09:47) Hives naproxen [From Naprosyn] Allergy (Verified 10/16/17 09:47) Hives niacin Allergy (Verified 10/16/17 09:47) Hives Penicillins Allergy (Verified 10/16/17 09:47) Hives pravastatin Allergy (Verified 10/16/17 09:47) Hives procaine [From Novocain] Allergy (Verified 10/16/17 09:47) Hives rosuvastatin Allergy (Verified 10/16/17 09:47) Hives simvastatin Allergy (Verified 10/16/17 09:47) Hives isosorbide Adverse Reaction (Severe, Verified 10/16/17 09:47) Unknown Current Medications Generic Name Dose Route Start Last Admin Trade Name Freq PRN Reason Stop Dose Admin Acetaminophen 650 mg 12/04/17 20:58 Tylenol Liquid GT 4X/DAY PRN PRN MILD PAIN (1-3/10) Acetylcysteine 200 mg 12/05/17 00:00 12/07/17 12:27 Mucomyst INHALATION 12/22/17 00:01 200 mg Q6H.RT BULL Administration Albuterol Sulfate 1 - 2 puff 12/04/17 20:24 Ventolin Hfa (Sp) INHALATION 4X/DAY PRN PRN SOB &/OR WHEEZING Amantadine HCl 100 mg 12/05/17 06:00 12/07/17 04:54 GT 100 mg DAILY BULL Administration Amitriptyline HCl 50 mg 12/05/17 22:00 12/06/17 21:52 Elavil GT 12/08/17 22:01 50 mg QHS BULL Administration Amitriptyline HCl 25 mg 12/09/17 22:00 Elavil PO 12/12/17 22:01 QHS BULL Aspirin 81 mg 12/05/17 08:00 12/07/17 08:13 Aspirin, Baby GT 81 mg DAILY@0800 BULL Administration Bisacodyl 10 mg 12/04/17 20:57 Dulcolax RECTAL DAILY PRN Constipation Budesonide 0.5 mg 12/05/17 06:00 12/07/17 06:33 Pulmicort Aerosol INHALATION 0.5 mg BID.RT BULL Administration Calamine/Phenol 1 applic 12/06/17 22:00 12/07/17 14:44 Calmoseptine Ointment TOPICAL 1 applicatio TID BULL Administration Protocol Cholecalciferol 5,000 unit 12/05/17 06:00 12/07/17 04:52 Vitamin D GT 5,000 unit DAILY BULL Administration Furosemide 40 mg 12/05/17 06:00 12/07/17 04:53 Lasix GT 40 mg BID BULL Administration Guaifenesin 10 ml 12/05/17 06:00 12/07/17 11:47 Robitussin GT 10 ml 0600,1200,1800,2200 BULL Administration Heparin Sodium (Beef Lung) 500 unit 12/04/17 21:35 Heparin 500 Unit/5 Ml (100/Ml) IV UD PRN HEPARIN FLUSH Sodium Chloride 250 mls @ 15 mls/hr 12/04/17 21:35 12/05/17 21:31 IV 15 mls/hr .[id number] PRN Administration SALINE FLUSH Lactose 1,000 mls @ 108 mls/hr 12/07/17 20:00 Pivot 1.5 Luis GT .[id number] [facility] Insulin Glargine 15 units 12/06/17 06:00 12/07/17 06:46 Lantus ([facility]) SC 15 units BID BULL Administration Insulin Human Lispro 10 unit 12/06/17 06:45 12/07/17 11:44 Humalog Kwikpen ([facility]) SC 10 units TIDAC BULL Administration Ipratropium [place] 0.5 mg 12/05/17 00:00 12/07/17 12:27 Atrovent INHALATION 0.5 mg Q6H.RT BULL Administration Lansoprazole 30 mg 12/05/17 08:00 12/07/17 11:43 Prevacid PO 30 mg BIDCM BULL Administration Magnesium Oxide 400 mg 12/05/17 07:45 12/07/17 11:44 Mag-Ox 400 GT 400 mg TIDCM BULL Administration Metoprolol Tartrate 75 mg 12/04/17 22:00 12/07/17 04:53 Lopressor (Beta [facility]) GT 75 mg TID BULL Administration Nicotine 14 mg 12/05/17 06:00 12/07/17 04:53 Nicoderm Cq ([facility]) TRANSDERM. 14 mg DAILY BULL Administration Nitroglycerin 0.4 mg 12/04/17 20:24 Nitrostat SUBLINGUAL Q5M PRN CARDIAC/CHEST PAIN Polyethylene Glycol 17 gm 12/05/17 06:00 12/07/17 04:53 Miralax GT 17 gm DAILY BULL Administration Potassium Chloride 20 meq 12/05/17 17:00 12/07/17 08:13 K-Dur NG 20 meq BIDCM BULL Administration Pramipexole Dihydrochloride 0.25 mg 12/04/17 22:00 12/06/17 21:52 Mirapex GT 0.25 mg QHS BULL Administration Pravastatin Sodium 80 mg 12/04/17 22:00 12/06/17 21:52 Pravachol GT 80 mg QHS BULL Administration Sodium Chloride 10 - 20 ml 12/04/17 21:35 12/07/17 04:50 IV 20 ml UD PRN Administration PICC FLUSH Tramadol HCl 50 mg 12/04/17 20:58 12/04/17 23:39 Ultram GT 50 mg TID PRN PRN Administration MODERATE PAIN (4-5/10) Tuberculin PPD 5 tu 12/12/17 10:00 Tubersol, Aplisol, Ppd ID 12/12/17 10:01 X1 ONE Problem List (Last Updated 10/13/17 @ 09:44 by Jeannie Zavala) Fall (Acute) Traumatic brain injury (Acute) Intraparenchymal hemorrhage of brain (Acute) Subarachnoid hemorrhage (Acute) Subdural hematoma (Acute) Intraventricular hemorrhage (Acute) Right scapula fracture (Acute) Alcohol intoxication (Acute) Tobacco abuse (Chronic) Sleep apnea (Chronic) Acute respiratory failure (Acute) Acute kidney injury (Acute) Aspiration pneumonia (Acute) Dysphagia (Acute) Diabetes mellitus (Chronic) Insomnia (Chronic) Vitamin D deficiency (Chronic) Depression (Chronic) GERD (gastroesophageal reflux disease) (Chronic) BPH (benign prostatic hyperplasia) (Chronic) Vital Signs Temp Pulse Resp BP Pulse Ox 97.3 F L 89 16 152/80 H 95 12/06/17 16:00 12/07/17 12:27 12/07/17 12:27 12/07/17 04:53 12/07/17 06:33 Oxygen Flow Rate (L/min) 6 Oxygen Delivery Method Nasal Cannula Weight: 120.202 kg Body Mass Index (BMI) 35.9 Finger Stick Blood Glucose 95 Sodium 143 mmol/L (136-145) 12/06/17 05:52 Potassium 3.6 mmol/L (3.5-5.1) 12/06/17 05:52 Chloride 104 mmol/L (98-107) 12/06/17 05:52 Carbon Dioxide 31.0 mmol/L (21.0-32.0) 12/06/17 05:52 Anion Gap 8 (5-15) 12/06/17 05:52 BUN 23 mg/dL (7-18) H 12/06/17 05:52 Creatinine 0.52 mg/dL (0.70-1.30) L 12/06/17 05:52 Est GFR (MDRD) Af Amer 202 mL/min (>60) 12/06/17 05:52 Est GFR (MDRD) Non-Af 167 mL/min (>60) 12/06/17 05:52 BUN/Creatinine Ratio 43.9 RATIO (10-20) H 12/06/17 05:52 Glucose 214 mg/dL (74-106) H 12/06/17 05:52 Assessment/Plan: 1) Pain APAP for mild pain, tramadol for moderate pain. Continue to monitor prn medication use, daily pain scores. 2) Pulm Budesonide, albuterol prn, acetylcysteine inh, guaifenesin syrup, ipratropium. Continue to monitor prn medication use, for shortness of breath. 3) TBI Amantadine daily. Continue to monitor clinically. 4) HLD Pravastatin at HS. Continue to monitor lipids. 5) CAD ASA, metoprolol, ntg prn. Continue to monitor prn medication use, BP/HR, s/s chest pain. 6) Edema Furosemide/KCl. Continue to monitor renal function, electrolytes, swelling. 7) DM2 Insulin glargine, lispro. Avg BGT > 200 mg/dL. Continue to monitor BGT, s/s hyper/hypoglycemia, insulin requirements. 8) GI Lansoprazole twice daily. Continue to monitor s/s GI distress. 9) Nutrition Pivot, Mg, D. Continue to monitor electrolytes. 10) Restless Legs Pramipexole at HS (tapering off amitriptyline). Continue to monitor for restless legs. Psychotropic Medications: None Unnecessary Medications: None Bowel Regimen: 11) PEG, prn bisacodyl. Continue to monitor prn medication use, for constipation/diarrhea. Date of Note:: 12/07/17 - Provider Comments Provider responsibility: Provider responsible to enter orders to implement recommendations <Pierre Luis Chi - Last Filed: 12/07/17 17:52> Progress Note - Pharmacy Subjective: [] Objective: Allergies atorvastatin Allergy (Verified 10/16/17 09:47) Hives cilostazol Allergy (Verified 10/16/17 09:47) Hives colestipol Allergy (Verified 10/16/17 09:47) Hives diltiazem Allergy (Verified 10/16/17 09:47) Hives gemfibrozil Allergy (Verified 10/16/17 09:47) Hives naproxen [From Naprosyn] Allergy (Verified 10/16/17 09:47) Hives niacin Allergy (Verified 10/16/17 09:47) Hives Penicillins Allergy (Verified 10/16/17 09:47) Hives pravastatin Allergy (Verified 10/16/17 09:47) Hives procaine [From Novocain] Allergy (Verified 10/16/17 09:47) Hives rosuvastatin Allergy (Verified 10/16/17 09:47) Hives simvastatin Allergy (Verified 10/16/17 09:47) Hives isosorbide Adverse Reaction (Severe, Verified 10/16/17 09:47) Unknown Current Medications Generic Name Dose Route Start Last Admin Trade Name Freq PRN Reason Stop Dose Admin Acetaminophen 650 mg 12/04/17 20:58 Tylenol Liquid GT 4X/DAY PRN PRN MILD PAIN (1-3/10) Acetylcysteine 200 mg 12/05/17 00:00 12/07/17 12:27 Mucomyst INHALATION 12/22/17 00:01 200 mg Q6H.RT BULL Administration Albuterol Sulfate 1 - 2 puff 12/04/17 20:24 Ventolin Hfa (Sp) INHALATION 4X/DAY PRN PRN SOB &/OR WHEEZING Amantadine HCl 100 mg 12/05/17 06:00 12/07/17 04:54 GT 100 mg DAILY BULL Administration Amitriptyline HCl 50 mg 12/05/17 22:00 12/06/17 21:52 Elavil GT 12/08/17 22:01 50 mg QHS BULL Administration Amitriptyline HCl 25 mg 12/09/17 22:00 Elavil PO 12/12/17 22:01 QHS BULL Aspirin 81 mg 12/05/17 08:00 12/07/17 08:13 Aspirin, Baby GT 81 mg DAILY@0800 [facility] Administration Bisacodyl 10 mg 12/04/17 20:57 Dulcolax RECTAL DAILY PRN Constipation Budesonide 0.5 mg 12/05/17 06:00 12/07/17 06:33 Pulmicort Aerosol INHALATION 0.5 mg BID.RT [facility] Administration Calamine/Phenol 1 applic 12/06/17 22:00 12/07/17 14:44 Calmoseptine Ointment TOPICAL 1 applicatio TID [facility] Administration Protocol Cholecalciferol 5,000 unit 12/05/17 06:00 12/07/17 04:52 Vitamin D GT 5,000 unit DAILY [facility] Administration Furosemide 40 mg 12/05/17 06:00 12/07/17 04:53 Lasix GT 40 mg BID BULL Administration Guaifenesin 10 ml 12/05/17 06:00 12/07/17 11:47 Robitussin GT 10 ml 0600,1200,1800,2200 [facility] Administration Heparin Sodium (Beef Lung) 500 unit 12/04/17 21:35 Heparin 500 Unit/5 Ml (100/Ml) IV UD PRN HEPARIN FLUSH Sodium Chloride 250 mls @ 15 mls/hr 12/04/17 21:35 12/05/17 21:31 IV 15 mls/hr .[id number] PRN Administration SALINE FLUSH Lactose 1,000 mls @ 108 mls/hr 12/07/17 20:00 Pivot 1.5 Luis GT .[id number] [facility] Insulin Glargine 15 units 12/06/17 06:00 12/07/17 06:46 Lantus ([facility]) SC 15 units BID BULL Administration Insulin Human Lispro 10 unit 12/06/17 06:45 12/07/17 11:44 Humalog Kwikpen ([facility]) SC 10 units TIDAC BULL Administration Ipratropium [place] 0.5 mg 12/05/17 00:00 12/07/17 12:27 Atrovent INHALATION 0.5 mg Q6H.RT BULL Administration Lansoprazole 30 mg 12/05/17 08:00 12/07/17 11:43 Prevacid PO 30 mg BIDCM BULL Administration Magnesium Oxide 400 mg 12/05/17 07:45 12/07/17 11:44 Mag-Ox 400 GT 400 mg TIDCM BULL Administration Metoprolol Tartrate 75 mg 12/04/17 22:00 12/07/17 15:02 Lopressor (Beta [facility]) GT 75 mg TID BULL Administration Nicotine 14 mg 12/05/17 06:00 12/07/17 04:53 Nicoderm Cq ([facility]) TRANSDERM. 14 mg DAILY BULL Administration Nitroglycerin 0.4 mg 12/04/17 20:24 Nitrostat SUBLINGUAL Q5M PRN CARDIAC/CHEST PAIN Polyethylene Glycol 17 gm 12/05/17 06:00 12/07/17 04:53 Miralax GT 17 gm DAILY BULL Administration Potassium Chloride 20 meq 12/05/17 17:00 12/07/17 08:13 K-Dur NG 20 meq BIDCM BULL Administration Pramipexole Dihydrochloride 0.25 mg 12/04/17 22:00 12/06/17 21:52 Mirapex GT 0.25 mg QHS BULL Administration Pravastatin Sodium 80 mg 12/04/17 22:00 12/06/17 21:52 Pravachol GT 80 mg QHS BULL Administration Sodium Chloride 10 - 20 ml 12/04/17 21:35 12/07/17 04:50 IV 20 ml UD PRN Administration PICC FLUSH Tramadol HCl 50 mg 12/04/17 20:58 12/04/17 23:39 Ultram GT 50 mg TID PRN PRN Administration MODERATE PAIN (4-5/10) Tuberculin PPD 5 tu 12/12/17 10:00 Tubersol, Aplisol, Ppd ID 12/12/17 10:01 X1 ONE Problem List (Last Updated 10/13/17 @ 09:44 by Jeannie Zavala) Fall (Acute) Traumatic brain injury (Acute) Intraparenchymal hemorrhage of brain (Acute) Subarachnoid hemorrhage (Acute) Subdural hematoma (Acute) Intraventricular hemorrhage (Acute) Right scapula fracture (Acute) Alcohol intoxication (Acute) Tobacco abuse (Chronic) Sleep apnea (Chronic) Acute respiratory failure (Acute) Acute kidney injury (Acute) Aspiration pneumonia (Acute) Dysphagia (Acute) Diabetes mellitus (Chronic) Insomnia (Chronic) Vitamin D deficiency (Chronic) Depression (Chronic) GERD (gastroesophageal reflux disease) (Chronic) BPH (benign prostatic hyperplasia) (Chronic) Vital Signs Temp Pulse Resp BP Pulse Ox 98.0 F 99 18 153/68 H 99 12/07/17 16:00 12/07/17 16:00 12/07/17 16:00 12/07/17 16:00 12/07/17 16:00 Oxygen Flow Rate (L/min) 4 Oxygen Delivery Method Nasal Cannula Weight: 120.202 kg Body Mass Index (BMI) 35.9 Finger Stick Blood Glucose 95 Sodium 143 mmol/L (136-145) 12/06/17 05:52 Potassium 3.6 mmol/L (3.5-5.1) 12/06/17 05:52 Chloride 104 mmol/L (98-107) 12/06/17 05:52 Carbon Dioxide 31.0 mmol/L (21.0-32.0) 12/06/17 05:52 Anion Gap 8 (5-15) 12/06/17 05:52 BUN 23 mg/dL (7-18) H 12/06/17 05:52 Creatinine 0.52 mg/dL (0.70-1.30) L 12/06/17 05:52 Est GFR (MDRD) Af Amer 202 mL/min (>60) 12/06/17 05:52 Est GFR (MDRD) Non-Af 167 mL/min (>60) 12/06/17 05:52 BUN/Creatinine Ratio 43.9 RATIO (10-20) H 12/06/17 05:52 Glucose 214 mg/dL (74-106) H 12/06/17 05:52 Assessment/Plan: Psychotropic Medications: Unnecessary Medications: Bowel Regimen: - Provider Comments Provider responsibility: Provider responsible to enter orders to implement recommendations Provider Comments to Recommendations by Pharmacy: Agree
--- NOTE | 2017-12-07 15:03 | PHA.CONS_ITS ---
<Sid Amanda D - Last Filed: 12/07/17 14:53> Progress Note - Pharmacy Subjective: TCU Admission Objective: Allergies atorvastatin Allergy (Verified 10/16/17 09:47) Hives cilostazol Allergy (Verified 10/16/17 09:47) Hives colestipol Allergy (Verified 10/16/17 09:47) Hives diltiazem Allergy (Verified 10/16/17 09:47) Hives gemfibrozil Allergy (Verified 10/16/17 09:47) Hives naproxen [From Naprosyn] Allergy (Verified 10/16/17 09:47) Hives niacin Allergy (Verified 10/16/17 09:47) Hives Penicillins Allergy (Verified 10/16/17 09:47) Hives pravastatin Allergy (Verified 10/16/17 09:47) Hives procaine [From Novocain] Allergy (Verified 10/16/17 09:47) Hives rosuvastatin Allergy (Verified 10/16/17 09:47) Hives simvastatin Allergy (Verified 10/16/17 09:47) Hives isosorbide Adverse Reaction (Severe, Verified 10/16/17 09:47) Unknown Current Medications Generic Name Dose Route Start Last Admin Trade Name Freq PRN Reason Stop Dose Admin Acetaminophen 650 mg 12/04/17 20:58 Tylenol Liquid GT 4X/DAY PRN PRN MILD PAIN (1-3/10) Acetylcysteine 200 mg 12/05/17 00:00 12/07/17 12:27 Mucomyst INHALATION 12/22/17 00:01 200 mg Q6H.RT BULL Administration Albuterol Sulfate 1 - 2 puff 12/04/17 20:24 Ventolin Hfa (Sp) INHALATION 4X/DAY PRN PRN SOB &/OR WHEEZING Amantadine HCl 100 mg 12/05/17 06:00 12/07/17 04:54 GT 100 mg DAILY BULL Administration Amitriptyline HCl 50 mg 12/05/17 22:00 12/06/17 21:52 Elavil GT 12/08/17 22:01 50 mg QHS BULL Administration Amitriptyline HCl 25 mg 12/09/17 22:00 Elavil PO 12/12/17 22:01 QHS BULL Aspirin 81 mg 12/05/17 08:00 12/07/17 08:13 Aspirin, Baby GT 81 mg DAILY@0800 BULL Administration Bisacodyl 10 mg 12/04/17 20:57 Dulcolax RECTAL DAILY PRN Constipation Budesonide 0.5 mg 12/05/17 06:00 12/07/17 06:33 Pulmicort Aerosol INHALATION 0.5 mg BID.RT BULL Administration Calamine/Phenol 1 applic 12/06/17 22:00 12/07/17 14:44 Calmoseptine Ointment TOPICAL 1 applicatio TID BULL Administration Protocol Cholecalciferol 5,000 unit 12/05/17 06:00 12/07/17 04:52 Vitamin D GT 5,000 unit DAILY BULL Administration Furosemide 40 mg 12/05/17 06:00 12/07/17 04:53 Lasix GT 40 mg BID BULL Administration Guaifenesin 10 ml 12/05/17 06:00 12/07/17 11:47 Robitussin GT 10 ml 0600,1200,1800,2200 BULL Administration Heparin Sodium (Beef Lung) 500 unit 12/04/17 21:35 Heparin 500 Unit/5 Ml (100/Ml) IV UD PRN HEPARIN FLUSH Sodium Chloride 250 mls @ 15 mls/hr 12/04/17 21:35 12/05/17 21:31 IV 15 mls/hr .[id number] PRN Administration SALINE FLUSH Lactose 1,000 mls @ 108 mls/hr 12/07/17 20:00 Pivot 1.5 Luis GT .[id number] [facility] Insulin Glargine 15 units 12/06/17 06:00 12/07/17 06:46 Lantus ([facility]) SC 15 units BID BULL Administration Insulin Human Lispro 10 unit 12/06/17 06:45 12/07/17 11:44 Humalog Kwikpen ([facility]) SC 10 units TIDAC BULL Administration Ipratropium Hector 0.5 mg 12/05/17 00:00 12/07/17 12:27 Atrovent INHALATION 0.5 mg Q6H.RT BULL Administration Lansoprazole 30 mg 12/05/17 08:00 12/07/17 11:43 Prevacid PO 30 mg BIDCM BULL Administration Magnesium Oxide 400 mg 12/05/17 07:45 12/07/17 11:44 Mag-Ox 400 GT 400 mg TIDCM BULL Administration Metoprolol Tartrate 75 mg 12/04/17 22:00 12/07/17 04:53 Lopressor (Beta [facility]ante) GT 75 mg TID BULL Administration Nicotine 14 mg 12/05/17 06:00 12/07/17 04:53 Nicoderm Cq ([facility]) TRANSDERM. 14 mg DAILY BULL Administration Nitroglycerin 0.4 mg 12/04/17 20:24 Nitrostat SUBLINGUAL Q5M PRN CARDIAC/CHEST PAIN Polyethylene Glycol 17 gm 12/05/17 06:00 12/07/17 04:53 Miralax GT 17 gm DAILY BULL Administration Potassium Chloride 20 meq 12/05/17 17:00 12/07/17 08:13 K-Dur NG 20 meq BIDCM BULL Administration Pramipexole Dihydrochloride 0.25 mg 12/04/17 22:00 12/06/17 21:52 Mirapex GT 0.25 mg QHS BULL Administration Pravastatin Sodium 80 mg 12/04/17 22:00 12/06/17 21:52 Pravachol GT 80 mg QHS BULL Administration Sodium Chloride 10 - 20 ml 12/04/17 21:35 12/07/17 04:50 IV 20 ml UD PRN Administration PICC FLUSH Tramadol HCl 50 mg 12/04/17 20:58 12/04/17 23:39 Ultram GT 50 mg TID PRN PRN Administration MODERATE PAIN (4-5/10) Tuberculin PPD 5 tu 12/12/17 10:00 Tubersol, Aplisol, Ppd ID 12/12/17 10:01 X1 ONE Problem List (Last Updated 10/13/17 @ 09:44 by Jeannie Zavala) Fall (Acute) Traumatic brain injury (Acute) Intraparenchymal hemorrhage of brain (Acute) Subarachnoid hemorrhage (Acute) Subdural hematoma (Acute) Intraventricular hemorrhage (Acute) Right scapula fracture (Acute) Alcohol intoxication (Acute) Tobacco abuse (Chronic) Sleep apnea (Chronic) Acute respiratory failure (Acute) Acute kidney injury (Acute) Aspiration pneumonia (Acute) Dysphagia (Acute) Diabetes mellitus (Chronic) Insomnia (Chronic) Vitamin D deficiency (Chronic) Depression (Chronic) GERD (gastroesophageal reflux disease) (Chronic) BPH (benign prostatic hyperplasia) (Chronic) Vital Signs Temp Pulse Resp BP Pulse Ox 97.3 F L 89 16 152/80 H 95 12/06/17 16:00 12/07/17 12:27 12/07/17 12:27 12/07/17 04:53 12/07/17 06:33 Oxygen Flow Rate (L/min) 6 Oxygen Delivery Method Nasal Cannula Weight: 120.202 kg Body Mass Index (BMI) 35.9 Finger Stick Blood Glucose 95 Sodium 143 mmol/L (136-145) 12/06/17 05:52 Potassium 3.6 mmol/L (3.5-5.1) 12/06/17 05:52 Chloride 104 mmol/L (98-107) 12/06/17 05:52 Carbon Dioxide 31.0 mmol/L (21.0-32.0) 12/06/17 05:52 Anion Gap 8 (5-15) 12/06/17 05:52 BUN 23 mg/dL (7-18) H 12/06/17 05:52 Creatinine 0.52 mg/dL (0.70-1.30) L 12/06/17 05:52 Est GFR (MDRD) Af Amer 202 mL/min (>60) 12/06/17 05:52 Est GFR (MDRD) Non-Af 167 mL/min (>60) 12/06/17 05:52 BUN/Creatinine Ratio 43.9 RATIO (10-20) H 12/06/17 05:52 Glucose 214 mg/dL (74-106) H 12/06/17 05:52 Assessment/Plan: 1) Pain APAP for mild pain, tramadol for moderate pain. Continue to monitor prn medication use, daily pain scores. 2) Pulm Budesonide, albuterol prn, acetylcysteine inh, guaifenesin syrup, ipratropium. Continue to monitor prn medication use, for shortness of breath. 3) TBI Amantadine daily. Continue to monitor clinically. 4) HLD Pravastatin at HS. Continue to monitor lipids. 5) CAD ASA, metoprolol, ntg prn. Continue to monitor prn medication use, BP/HR, s/s chest pain. 6) Edema Furosemide/KCl. Continue to monitor renal function, electrolytes, swelling. 7) DM2 Insulin glargine, lispro. Avg BGT > 200 mg/dL. Continue to monitor BGT, s/s hyper/hypoglycemia, insulin requirements. 8) GI Lansoprazole twice daily. Continue to monitor s/s GI distress. 9) Nutrition Pivot, Mg, D. Continue to monitor electrolytes. 10) Restless Legs Pramipexole at HS (tapering off amitriptyline). Continue to monitor for restless legs. Psychotropic Medications: None Unnecessary Medications: None Bowel Regimen: 11) PEG, prn bisacodyl. Continue to monitor prn medication use, for constipation /diarrhea. Date of Note:: 12/07/17 - Provider Comments Provider responsibility: Provider responsible to enter orders to implement recommendations <Pierre Luis Chi - Last Filed: 12/07/17 17:52> Progress Note - Pharmacy Subjective: [] Objective: Allergies atorvastatin Allergy (Verified 10/16/17 09:47) Hives cilostazol Allergy (Verified 10/16/17 09:47) Hives colestipol Allergy (Verified 10/16/17 09:47) Hives diltiazem Allergy (Verified 10/16/17 09:47) Hives gemfibrozil Allergy (Verified 10/16/17 09:47) Hives naproxen [From Naprosyn] Allergy (Verified 10/16/17 09:47) Hives niacin Allergy (Verified 10/16/17 09:47) Hives Penicillins Allergy (Verified 10/16/17 09:47) Hives pravastatin Allergy (Verified 10/16/17 09:47) Hives procaine [From Novocain] Allergy (Verified 10/16/17 09:47) Hives rosuvastatin Allergy (Verified 10/16/17 09:47) Hives simvastatin Allergy (Verified 10/16/17 09:47) Hives isosorbide Adverse Reaction (Severe, Verified 10/16/17 09:47) Unknown Current Medications Generic Name Dose Route Start Last Admin Trade Name Freq PRN Reason Stop Dose Admin Acetaminophen 650 mg 12/04/17 20:58 Tylenol Liquid GT 4X/DAY PRN PRN MILD PAIN (1-3/10) Acetylcysteine 200 mg 12/05/17 00:00 12/07/17 12:27 Mucomyst INHALATION 12/22/17 00:01 200 mg Q6H.RT BULL Administration Albuterol Sulfate 1 - 2 puff 12/04/17 20:24 Ventolin Hfa (Sp) INHALATION 4X/DAY PRN PRN SOB &/OR WHEEZING Amantadine HCl 100 mg 12/05/17 06:00 12/07/17 04:54 GT 100 mg DAILY BULL Administration Amitriptyline HCl 50 mg 12/05/17 22:00 12/06/17 21:52 Elavil GT 12/08/17 22:01 50 mg QHS BULL Administration Amitriptyline HCl 25 mg 12/09/17 22:00 Elavil PO 12/12/17 22:01 QHS BULL Aspirin 81 mg 12/05/17 08:00 12/07/17 08:13 Aspirin, Baby GT 81 mg DAILY@0800 [facility] Administration Bisacodyl 10 mg 12/04/17 20:57 Dulcolax RECTAL DAILY PRN Constipation Budesonide 0.5 mg 12/05/17 06:00 12/07/17 06:33 Pulmicort Aerosol INHALATION 0.5 mg BID.RT [facility] Administration Calamine/Phenol 1 applic 12/06/17 22:00 12/07/17 14:44 Calmoseptine Ointment TOPICAL 1 applicatio TID [facility] Administration Protocol Cholecalciferol 5,000 unit 12/05/17 06:00 12/07/17 04:52 Vitamin D GT 5,000 unit DAILY [facility] Administration Furosemide 40 mg 12/05/17 06:00 12/07/17 04:53 Lasix GT 40 mg BID BULL Administration Guaifenesin 10 ml 12/05/17 06:00 12/07/17 11:47 Robitussin GT 10 ml 0600,1200,1800,2200 [facility] Administration Heparin Sodium (Beef Lung) 500 unit 12/04/17 21:35 Heparin 500 Unit/5 Ml (100/Ml) IV UD PRN HEPARIN FLUSH Sodium Chloride 250 mls @ 15 mls/hr 12/04/17 21:35 12/05/17 21:31 IV 15 mls/hr .[id number] PRN Administration SALINE FLUSH Lactose 1,000 mls @ 108 mls/hr 12/07/17 20:00 Pivot 1.5 Luis GT .[id number] [facility] Insulin Glargine 15 units 12/06/17 06:00 12/07/17 06:46 Lantus ([facility]) SC 15 units BID BULL Administration Insulin Human Lispro 10 unit 12/06/17 06:45 12/07/17 11:44 Humalog Kwikpen ([facility]) SC 10 units TIDAC BULL Administration Ipratropium Hector 0.5 mg 12/05/17 00:00 12/07/17 12:27 Atrovent INHALATION 0.5 mg Q6H.RT BULL Administration Lansoprazole 30 mg 12/05/17 08:00 12/07/17 11:43 Prevacid PO 30 mg BIDCM BULL Administration Magnesium Oxide 400 mg 12/05/17 07:45 12/07/17 11:44 Mag-Ox 400 GT 400 mg TIDCM BULL Administration Metoprolol Tartrate 75 mg 12/04/17 22:00 12/07/17 15:02 Lopressor (Beta [facility]ante) GT 75 mg TID BULL Administration Nicotine 14 mg 12/05/17 06:00 12/07/17 04:53 Nicoderm Cq ([facility]) TRANSDERM. 14 mg DAILY BULL Administration Nitroglycerin 0.4 mg 12/04/17 20:24 Nitrostat SUBLINGUAL Q5M PRN CARDIAC/CHEST PAIN Polyethylene Glycol 17 gm 12/05/17 06:00 12/07/17 04:53 Miralax GT 17 gm DAILY BULL Administration Potassium Chloride 20 meq 12/05/17 17:00 12/07/17 08:13 K-Dur NG 20 meq BIDCM BULL Administration Pramipexole Dihydrochloride 0.25 mg 12/04/17 22:00 12/06/17 21:52 Mirapex GT 0.25 mg QHS BULL Administration Pravastatin Sodium 80 mg 12/04/17 22:00 12/06/17 21:52 Pravachol GT 80 mg QHS BULL Administration Sodium Chloride 10 - 20 ml 12/04/17 21:35 12/07/17 04:50 IV 20 ml UD PRN Administration PICC FLUSH Tramadol HCl 50 mg 12/04/17 20:58 12/04/17 23:39 Ultram GT 50 mg TID PRN PRN Administration MODERATE PAIN (4-5/10) Tuberculin PPD 5 tu 12/12/17 10:00 Tubersol, Aplisol, Ppd ID 12/12/17 10:01 X1 ONE Problem List (Last Updated 10/13/17 @ 09:44 by Jeannie Zavala) Fall (Acute) Traumatic brain injury (Acute) Intraparenchymal hemorrhage of brain (Acute) Subarachnoid hemorrhage (Acute) Subdural hematoma (Acute) Intraventricular hemorrhage (Acute) Right scapula fracture (Acute) Alcohol intoxication (Acute) Tobacco abuse (Chronic) Sleep apnea (Chronic) Acute respiratory failure (Acute) Acute kidney injury (Acute) Aspiration pneumonia (Acute) Dysphagia (Acute) Diabetes mellitus (Chronic) Insomnia (Chronic) Vitamin D deficiency (Chronic) Depression (Chronic) GERD (gastroesophageal reflux disease) (Chronic) BPH (benign prostatic hyperplasia) (Chronic) Vital Signs Temp Pulse Resp BP Pulse Ox 98.0 F 99 18 153/68 H 99 12/07/17 16:00 12/07/17 16:00 12/07/17 16:00 12/07/17 16:00 12/07/17 16:00 Oxygen Flow Rate (L/min) 4 Oxygen Delivery Method Nasal Cannula Weight: 120.202 kg Body Mass Index (BMI) 35.9 Finger Stick Blood Glucose 95 Sodium 143 mmol/L (136-145) 12/06/17 05:52 Potassium 3.6 mmol/L (3.5-5.1) 12/06/17 05:52 Chloride 104 mmol/L (98-107) 12/06/17 05:52 Carbon Dioxide 31.0 mmol/L (21.0-32.0) 12/06/17 05:52 Anion Gap 8 (5-15) 12/06/17 05:52 BUN 23 mg/dL (7-18) H 12/06/17 05:52 Creatinine 0.52 mg/dL (0.70-1.30) L 12/06/17 05:52 Est GFR (MDRD) Af Amer 202 mL/min (>60) 12/06/17 05:52 Est GFR (MDRD) Non-Af 167 mL/min (>60) 12/06/17 05:52 BUN/Creatinine Ratio 43.9 RATIO (10-20) H 12/06/17 05:52 Glucose 214 mg/dL (74-106) H 12/06/17 05:52 Assessment/Plan: Psychotropic Medications: Unnecessary Medications: Bowel Regimen: - Provider Comments Provider responsibility: Provider responsible to enter orders to implement recommendations Provider Comments to Recommendations by Pharmacy: Agree
[2017-12-07 16:46] LABS: Bedside Glucose 192 mg/dL (70-110)
[2017-12-07] MEDS: Pramipexole Di-HCl 0.25 MG Tablet GT (19:54)
[2017-12-07] MEDS: Amitriptyline 25 MG Tablet 50 MG GT (19:54)
[2017-12-07] MEDS: Pravastatin 80 MG Tablet GT (19:55)
[2017-12-07 21:26] LABS: Bedside Glucose 183 mg/dL (70-110)
[2017-12-08] VITALS (8 sets, daily range): BP systolic 150–151; BP diastolic 73–76; PULSE 82–112; RESP 18–20; TEMP 36.9; O2SAT 97–98
[2017-12-08 00:15] LABS: Bedside Glucose 337 mg/dL (70-110)
[2017-12-08] MEDS: Pivot 1.5 Cal 1,000 ML 108 ML GT ×2 (02:34→20:15)
[2017-12-08] MEDS: Polyethylene Glycol 3350 17 GM PACKET GT (06:22)
[2017-12-08] MEDS: guaiFENesin 10 ML UDC (200MG/10ML) GT ×4 (06:22→21:26)
[2017-12-08] MEDS: Furosemide 40 MG Tablet GT ×2 (06:23→18:58)
[2017-12-08] MEDS: Metoprolol Tartrate 25 MG Tablet 75 MG GT ×3 (06:23→21:27)
[2017-12-08] MEDS: AMANTADINE HCL 50 MG/5ML 100 MG GT (06:23)
[2017-12-08] MEDS: Menthol/Lanolin/Calamine/Znox 113 GM Tube 1 APPLIC TOPICAL ×3 (06:42→21:36)
[2017-12-08 06:46] LABS: Bedside Glucose 386 mg/dL (70-110)
[2017-12-08] MEDS: Ipratropium 0.5 MG/2.5 ML SOLUTION INHALATION ×3 (07:40→20:00)
[2017-12-08] MEDS: Acetylcysteine 800 MG/4 ML VIAL.NEB. 200 MG INHALATION ×3 (07:40→20:00)
[2017-12-08] MEDS: Budesonide Respules 0.5 MG/2 ML AMPUL.NEB. INHALATION ×2 (07:40→20:10)
--- NOTE | 2017-12-08 09:06 | CASEMGMT ---
Plan of care meeting held. Resident present as well as resident spouse. No discharge date set at this time. Resident to continue with further care and treatment on the Transitional Care Unit at this time. Current discharge plan is for resident to discharge home with spouse. Resident and resident spouse aware that a plan B may need to be put in place such as further placement in a facility. This adoption social worker providing resident spouse with a list of facilities within the [facility]. Resident spouse reporting that a first choice for a facility would be the [facility] [place] and the second choice would be [facility]. Resident does have an insurance update due on 12/10/17 and is aware that continued stay approval is not guaranteed. Support given. Will continue to follow. Tentative Discharge Plan: Home vs. extended care facility. Nora JERONIMO, MANUFACTURING PROJECT MANAGER
[2017-12-08] MEDS: Aspirin 81 MG TAB.CHEW GT (10:01)
[2017-12-08] MEDS: Magnesium Oxide 400 MG Tablet GT ×3 (10:01→18:58)
[2017-12-08] MEDS: Insulin Lispro 100 UNIT/ML INSULN.PEN 13 UNIT SC ×3 (10:05→18:59)
--- NOTE | 2017-12-08 10:57 | NURSING ---
Per patient and family request, provide mouth care every 2 hours, trim patients nails and keep patient shaved. Also, per 's request, podiatry consult done to have patient's toenails trimmed.
[2017-12-08 11:21] LABS: Bedside Glucose 342 mg/dL (70-110)
--- NOTE | 2017-12-08 12:04 | PCM.PROGNOTE ---
Patient Problems: Active and Suspected Problems (Last Updated 10/13/17 @ 09:44 by Jeannie Zavala) Fall (Acute) Traumatic brain injury (Acute) Intraparenchymal hemorrhage of brain (Acute) Subarachnoid hemorrhage (Acute) Subdural hematoma (Acute) Intraventricular hemorrhage (Acute) Right scapula fracture (Acute) Alcohol intoxication (Acute) Acute respiratory failure (Acute) Acute kidney injury (Acute) Aspiration pneumonia (Acute) Dysphagia (Acute) Subjective: This 67-year-old male was consulted to podiatry for thickened, discolored, elongated, tender toenails 1, 2, 3, 4 and 5 of the right and left foot. Patient resting comfortably bedside. He is unable to properly communicate due to traumatic brain injury. - Physical Exam General: Alert, Cooperative, No apparent distress Extremities: No cyanosis, Capillary Refill Less than 3 Seconds - 2 distal digits 1 through 5 bilateral, Diminished Peripheral Pulses - DP pulses nonpalpable and PT pulses palpable bilateral, Edema - Slight lower extremity edema Skin: - - Thickened, discolored, elongated, tender toenails with the presence of subungual debris of toenails 1, 2, 3, 4, and 5 of the right and left foot. Musculoskeletal: Muscle Wasting Neurological: Sensory exam intact to light touch and pain Psych/Mental Status: - - Traumatic brain injury following fall Vital Signs Temp Pulse Resp BP Pulse Ox 98.0 F 87 20 H 155/85 H 92 12/07/17 16:00 12/08/17 07:35 12/08/17 07:35 12/07/17 19:54 12/07/17 20:08 Oxygen Flow Rate (L/min) 2 Oxygen Delivery Method Nasal Cannula Weight: 120.202 kg Body Mass Index (BMI) 35.9 Finger Stick Blood Glucose 95 Intake and Output for Last 24 Hours 12/06/17 12/07/17 12/08/17 23:59 23:59 23:59 Intake Total 1470 / 1470 442 / 442 Balance 1470 / 1470 442 / 442 POC Glucose 12/08/17 12/08/17 12/08/17 11:17 06:40 00:08 POC Glucose 342 H 386 H 337 H 12/07/17 12/07/17 21:18 16:36 POC Glucose 183 H 192 H Medical Necessity - Tobacco Use Smoking Status: Current every day smoker Tobacco Use: Cigarettes Assessment/Plan All Active Problems (Last Updated 10/13/17 @ 09:44 by Jeannie Zavala) Fall (Acute) Traumatic brain injury (Acute) Intraparenchymal hemorrhage of brain (Acute) Subarachnoid hemorrhage (Acute) Subdural hematoma (Acute) Intraventricular hemorrhage (Acute) Right scapula fracture (Acute) Alcohol intoxication (Acute) Acute respiratory failure (Acute) Acute kidney injury (Acute) Aspiration pneumonia (Acute) Dysphagia (Acute) Encounter for long-term current use of high risk medication (Acute) Obstructive sleep apnea (Acute) Presence of coronary angioplasty implant and graft (Acute) FUO (fever of unknown origin) (Acute) Hypertensive emergency (Acute) Demand ischemia (Acute) Systolic CHF, acute (Acute) Acute respiratory failure with hypoxemia (Acute) Acute respiratory failure with hypoxia and hypercarbia (Resolved) Multifocal community-acquired pneumonia (Resolved) Severe sepsis (Resolved) Tinea unguium Pain right toe(s) Pain left toe(s) Patient was carefully examined and evaluated. Toenails 1, 2, 3, 4, and 5 of the right and left foot were carefully debrided in length using a nail nipper. This was done without incident. No rough edges remained following debridement. Patient to continue with OTILIA hose bilateral. At this time, the patient can be followed on an as-needed basis by podiatry. Thank you for this consult. Please contact with any questions or concerns.
--- NOTE | 2017-12-08 14:50 | NURSING ---
Still unable to assess coccyx at this time. pt is currently with therapy. patient is not able to get back into bed at this time either because the bed is broken. Maintenance called for repair. CAMILA Brown and CAMILA Benedict aware that this nurse has not been able to assess coccyx wound.
[2017-12-08 17:01] LABS: Bedside Glucose 218 mg/dL (70-110)
[2017-12-08 21:01] LABS: Bedside Glucose 197 mg/dL (70-110)
[2017-12-08] MEDS: Pramipexole Di-HCl 0.25 MG Tablet GT (21:26)
[2017-12-08] MEDS: Amitriptyline 25 MG Tablet 50 MG GT (21:26)
[2017-12-08] MEDS: Pravastatin 80 MG Tablet GT (21:27)
[2017-12-09] VITALS (8 sets, daily range): BP systolic 140–153; BP diastolic 65–75; PULSE 80–103; RESP 18–22; TEMP 36.4; O2SAT 93–97
[2017-12-09] MEDS: Pivot 1.5 Cal 1,000 ML 108 ML GT (01:18)
[2017-12-09] MEDS: Polyethylene Glycol 3350 17 GM PACKET GT (05:11)
[2017-12-09] MEDS: Metoprolol Tartrate 25 MG Tablet 75 MG GT ×3 (05:14→20:52)
[2017-12-09] MEDS: AMANTADINE HCL 50 MG/5ML 100 MG GT (05:15)
[2017-12-09] MEDS: 0.9% NaCl PICC Flush IV ×3 (05:15→21:05)
[2017-12-09] MEDS: Furosemide 40 MG Tablet GT ×2 (05:15→19:29)
[2017-12-09] MEDS: Menthol/Lanolin/Calamine/Znox 113 GM Tube 1 APPLIC TOPICAL ×2 (05:16→20:55)
[2017-12-09] MEDS: guaiFENesin 10 ML UDC (200MG/10ML) GT ×3 (05:16→19:30)
[2017-12-09 06:55] LABS: Bedside Glucose 360 mg/dL (70-110)
[2017-12-09] MEDS: Budesonide Respules 0.5 MG/2 ML AMPUL.NEB. INHALATION ×2 (07:10→20:51)
[2017-12-09] MEDS: Acetylcysteine 800 MG/4 ML VIAL.NEB. 200 MG INHALATION (07:10)
[2017-12-09] MEDS: Ipratropium 0.5 MG/2.5 ML SOLUTION INHALATION ×2 (07:10→20:45)
[2017-12-09] MEDS: Insulin Lispro 100 UNIT/ML INSULN.PEN 13 UNIT SC (08:18)
[2017-12-09] MEDS: Aspirin 81 MG TAB.CHEW GT (08:24)
[2017-12-09] MEDS: Magnesium Oxide 400 MG Tablet GT ×3 (08:24→19:29)
[2017-12-09 11:10] LABS: Bedside Glucose 351 mg/dL (70-110)
[2017-12-09] MEDS: traMADol 50 MG Tablet GT (11:58)
[2017-12-09] MEDS: Insulin Lispro 100 UNIT/ML INSULN.PEN 17 UNIT SC ×2 (13:39→19:36)
[2017-12-09 17:06] LABS: Bedside Glucose 162 mg/dL (70-110)
[2017-12-09] MEDS: Acetaminophen 650 MG/20 ML UDC GT (19:32)
[2017-12-09] MEDS: Pramipexole Di-HCl 0.25 MG Tablet GT (20:52)
[2017-12-09] MEDS: Pravastatin 80 MG Tablet GT (20:52)
[2017-12-09] MEDS: Amitriptyline 25 MG Tablet PO (20:55)
[2017-12-09 21:21] LABS: Bedside Glucose 198 mg/dL (70-110)
[2017-12-10] VITALS (9 sets, daily range): BP systolic 135–179; BP diastolic 78–95; PULSE 76–121; RESP 18–20; TEMP 35.6; O2SAT 91–98
[2017-12-10] MEDS: Pivot 1.5 Cal 1,000 ML 108 ML GT (01:09)
[2017-12-10] MEDS: guaiFENesin 10 ML UDC (200MG/10ML) GT ×5 (01:10→21:08)
[2017-12-10 04:01] LABS: Bedside Glucose 235 mg/dL (70-110)
[2017-12-10] MEDS: Polyethylene Glycol 3350 17 GM PACKET GT (05:40)
[2017-12-10] MEDS: Furosemide 40 MG Tablet GT ×2 (05:41→17:42)
[2017-12-10] MEDS: Menthol/Lanolin/Calamine/Znox 113 GM Tube 1 APPLIC TOPICAL ×3 (05:42→21:08)
[2017-12-10] MEDS: Metoprolol Tartrate 25 MG Tablet 75 MG GT ×3 (05:42→21:08)
[2017-12-10] MEDS: Acetaminophen 650 MG/20 ML UDC GT (05:45)
[2017-12-10] MEDS: AMANTADINE HCL 50 MG/5ML 100 MG GT (05:45)
[2017-12-10 06:21] LABS: Bedside Glucose 377 mg/dL (70-110)
[2017-12-10] MEDS: Ipratropium 0.5 MG/2.5 ML SOLUTION INHALATION ×3 (07:31→19:05)
[2017-12-10] MEDS: Acetylcysteine 800 MG/4 ML VIAL.NEB. 200 MG INHALATION ×3 (07:32→19:05)
[2017-12-10] MEDS: Budesonide Respules 0.5 MG/2 ML AMPUL.NEB. INHALATION ×2 (07:33→19:05)
[2017-12-10] MEDS: Aspirin 81 MG TAB.CHEW GT (09:10)
[2017-12-10] MEDS: Magnesium Oxide 400 MG Tablet GT ×3 (09:11→17:42)
[2017-12-10] MEDS: Insulin Lispro 100 UNIT/ML INSULN.PEN 17 UNIT SC ×3 (09:14→17:45)
[2017-12-10] MEDS: traMADol 50 MG Tablet GT (09:51)
[2017-12-10 11:25] LABS: Bedside Glucose 261 mg/dL (70-110)
--- NOTE | 2017-12-10 11:29 | CASEMGMT ---
Insurance Clinical information faxed. Pending continued stay approval at this time. Auth#[id number] Nora JERONIMO, GUN EXAMINER
--- NOTE | 2017-12-10 16:29 | NURSING ---
This nurse called to Pt bedside family notified that Pt has passed, No spontaneous movements are present, there is no response to verbal or tactile stimuli, pupils are dilated and fixed, no lungs sounds appreciated over either lung field, no cardioid pulses palpable, No heartbeat heard from auscultation. No readable BP on monitor, Cheryl JENSEN to verify. Pt time of 1605. Family grieving appropriately.
[2017-12-10 16:51] LABS: Bedside Glucose 206 mg/dL (70-110)
[2017-12-10] MEDS: 0.9% NaCl PICC Flush IV ×2 (18:22→21:03)
[2017-12-10] MEDS: Pravastatin 80 MG Tablet GT (21:08)
[2017-12-10] MEDS: Amitriptyline 25 MG Tablet PO (21:08)
[2017-12-10] MEDS: Pramipexole Di-HCl 0.25 MG Tablet GT (21:08)
--- NOTE | 2017-12-10 21:47 | NURSING ---
Dr Luis aware unable to flush red lumen. N.O. for cathflo. Repeat if needed.
--- NOTE | 2017-12-10 21:48 | NURSING ---
RN entered room to find O2 off SPO2 91%. O2 applied 3L pt 98%. O2 decreased to 2L SPO2 93%. Will continue to monitor and asses.
[2017-12-11] VITALS (8 sets, daily range): BP systolic 132–168; BP diastolic 87–94; PULSE 87–110; RESP 18–20; TEMP 36.7; O2SAT 92–99
[2017-12-11] MEDS: Pivot 1.5 Cal 1,000 ML 108 ML GT (01:33)
[2017-12-11 03:01] LABS: Bedside Glucose 271 mg/dL (70-110)
--- NOTE | 2017-12-11 04:22 | NURSING ---
Pt not void since beginning of shift. Bladder scan 515. St Cath 520. Will continue to monitor and asses.
[2017-12-11] MEDS: Menthol/Lanolin/Calamine/Znox 113 GM Tube 1 APPLIC TOPICAL ×3 (04:45→21:57)
[2017-12-11] MEDS: Polyethylene Glycol 3350 17 GM PACKET GT (04:45)
[2017-12-11] MEDS: Nystatin Powder 15gm Bottle 1 APPLIC TOPICAL ×2 (04:45→22:17)
[2017-12-11] MEDS: AMANTADINE HCL 50 MG/5ML 100 MG GT (04:45)
[2017-12-11] MEDS: Metoprolol Tartrate 25 MG Tablet 75 MG GT ×3 (04:45→22:08)
[2017-12-11] MEDS: Furosemide 40 MG Tablet GT ×2 (04:45→18:15)
[2017-12-11] MEDS: Acetaminophen 650 MG/20 ML UDC GT ×2 (04:46→22:20)
[2017-12-11] MEDS: guaiFENesin 10 ML UDC (200MG/10ML) GT ×4 (04:46→22:20)
[2017-12-11] MEDS: Alteplase 2 MG/2 ML Vial IV (05:50)
[2017-12-11 07:01] LABS: Bedside Glucose 398 mg/dL (70-110)
[2017-12-11] MEDS: Ipratropium 0.5 MG/2.5 ML SOLUTION INHALATION ×3 (07:29→20:18)
[2017-12-11] MEDS: Acetylcysteine 800 MG/4 ML VIAL.NEB. 200 MG INHALATION ×2 (07:29→13:10)
[2017-12-11] MEDS: Budesonide Respules 0.5 MG/2 ML AMPUL.NEB. INHALATION ×2 (07:29→20:19)
[2017-12-11] MEDS: Insulin Lispro 100 UNIT/ML INSULN.PEN 20 UNIT SC ×2 (09:29→12:22)
[2017-12-11] MEDS: Magnesium Oxide 400 MG Tablet GT ×3 (09:31→18:15)
[2017-12-11] MEDS: Aspirin 81 MG TAB.CHEW GT (09:31)
--- NOTE | 2017-12-11 09:39 | NURSING ---
Blood sugars reviewed by Dr. Luis, insulins increased, pt updated.
[2017-12-11 11:21] LABS: Bedside Glucose 295 mg/dL (70-110)
--- NOTE | 2017-12-11 14:48 | NURSING ---
wound photo: sacrum
--- NOTE | 2017-12-11 15:03 | CASEMGMT ---
Insurance Continued stay approved with next update due on 12/15/17. Auth#[id number] Nora JERONIMO, FORGING OPERATOR
--- NOTE | 2017-12-11 15:24 | RAD_ITS ---
STUDY: X-RAY CHEST REASON FOR EXAM: Male, 67 years old. Follow-up positive TB test. TECHNIQUE: PA and lateral chest COMPARISON: 12/07/2017. FINDINGS: Median sternotomy, CABG. No cardiomegaly. Normal mediastinal silhouette, ita and pleural margins. Left PICC line tip in distal SVC near SVC atrial junction. Mild chronic interstitial changes of the lungs, favoring mild COPD/emphysema. Correlate any smoking history. The lungs are otherwise clear. No effusion or pneumothorax. No acute osseous or upper abdominal process. RAD/Chest PA and Lateral IMPRESSION: No acute cardiopulmonary process. There is no specific evidence of acute or chronic tuberculosis infection. Electronically Signed: José Miguel Ramírez, at 15:45 EDT Tel , Service support ,
[2017-12-11] MEDS: 0.9% NaCl PICC Flush IV (16:18)
[2017-12-11 16:46] LABS: Bedside Glucose 134 mg/dL (70-110)
--- NOTE | 2017-12-11 17:01 | CASEMGMT ---
Brief interview for mental status (BIMS) and resident mood interview (PHQ-9) completed on this day. BIMS score 11/20. PHQ-9 score 12/02
[2017-12-11] MEDS: Insulin Lispro 100 UNIT/ML INSULN.PEN 23 UNIT SC (18:18)
[2017-12-11 21:15] LABS: Bedside Glucose 94 mg/dL (70-110)
[2017-12-11] MEDS: Amitriptyline 25 MG Tablet PO (21:58)
[2017-12-11] MEDS: Pramipexole Di-HCl 0.25 MG Tablet GT (22:16)
[2017-12-11] MEDS: Pravastatin 80 MG Tablet GT (22:18)
[2017-12-12] VITALS (11 sets, daily range): BP systolic 155–165; BP diastolic 84–103; PULSE 85–122; RESP 18–34; TEMP 36.4–36.6; O2SAT 92–94
[2017-12-12] MEDS: Pivot 1.5 Cal 1,000 ML 108 ML GT ×2 (00:22→21:55)
[2017-12-12] MEDS: Ipratropium 0.5 MG/2.5 ML SOLUTION INHALATION ×4 (01:35→19:29)
[2017-12-12 02:00] LABS: Bedside Glucose 165 mg/dL (70-110)
[2017-12-12] MEDS: Budesonide Respules 0.5 MG/2 ML AMPUL.NEB. INHALATION ×2 (06:25→19:29)
[2017-12-12] MEDS: AMANTADINE HCL 50 MG/5ML 100 MG GT (06:26)
[2017-12-12] MEDS: Menthol/Lanolin/Calamine/Znox 113 GM Tube 1 APPLIC TOPICAL ×2 (06:26→21:53)
[2017-12-12] MEDS: Furosemide 40 MG Tablet GT ×2 (06:27→18:14)
[2017-12-12] MEDS: Nystatin Powder 15gm Bottle 1 APPLIC TOPICAL ×2 (06:27→21:54)
[2017-12-12] MEDS: guaiFENesin 10 ML UDC (200MG/10ML) GT ×4 (06:28→21:52)
[2017-12-12] MEDS: Insulin Lispro 100 UNIT/ML INSULN.PEN 23 UNIT SC ×2 (06:35→11:17)
[2017-12-12 06:45] LABS: Bedside Glucose 339 mg/dL (70-110)
[2017-12-12] MEDS: Metoprolol Tartrate 25 MG Tablet 75 MG GT ×3 (06:48→21:52)
[2017-12-12] MEDS: Magnesium Oxide 400 MG Tablet GT ×3 (06:50→18:14)
--- NOTE | 2017-12-12 07:09 | NURSING ---
Pt resting comfortably on entering room. Respiratory staff entered room at same time to give breathing treatment. During breathing treatment pt became very restless and RR increased to 34bpm. Denies pain. Hr increased also but had just had breathing treatment. Meds given for elevated blood pressure. Handed over to AM staff to monitor pt to see if he settles down and HR/RR slow down once pt settles.
[2017-12-12] MEDS: 0.9% NaCl PICC Flush IV ×3 (07:30→18:30)
[2017-12-12 07:41] LABS: Absolute Lymphocyte Count 1.48 X10^3/ul (0.83-4.51); Absolute Neutrophil Count 8.4 X10^3/uL (2.0-7.7); Basophil# 0.03 X10^3/uL; Basophil% 0.3 % (0-1); Eosinophils% 0.9 % (0-5); Hemoglobin 12.1 g/dl (13.0-16.5); Lymphocyte # 1.48 X10^3/ul (4.0); Mean Corpuscular Hgb 31.1 pg (27.0-32.0); Mean Corpuscular Volume 100.3 fL (80-94); Mean Platelet Vol. 11.3 fl (6.2-12.0); Monocyte# 0.53 X10^3/uL; Neutrophil # 8.44 X10^3/uL (2.7-7.7); Neutrophil % 79.6 % (47-70); Platelet Count 281 K/mm3 (150-450); RBC Distribution Width CV 15.8 % (11.6-14.6); RBC Distribution Width SD 57.4 fl (35.1-43.9); Red Blood Count 3.89 M/mm3 (4.6-6.2); White Blood Count 10.6 K/mm3 (4.4-11.0)
[2017-12-12 07:43] LABS: POSITIVE COUNT NO; POSITIVE DIFFERENTIAL NO; POSITIVE MORPHOLOGY NO
[2017-12-12 07:55] LABS: Anion Gap 8 (5-15); BUN 28 mg/dL (7-18); BUN/Creat Ratio 41.2 RATIO (10-20); Calcium,Total 9.3 mg/dL (8.5-10.1); Chloride 101 mmol/L (98-107); Creatinine, Serum 0.68 mg/dL (0.70-1.30); EST Glomerular Filtration Rate 124 mL/min (>60); Est Glom Filt Rate - Afr Amer 150 mL/min (>60); Estimated Creatinine Clearance 78.68 ml/min; Glucose 306 mg/dL (74-106); Potassium 3.5 mmol/L (3.5-5.1); Sodium Level 141 mmol/L (136-145)
[2017-12-12] MEDS: Aspirin 81 MG TAB.CHEW GT (08:20)
[2017-12-12 11:16] LABS: Bedside Glucose 195 mg/dL (70-110)
[2017-12-12] MEDS: Acetaminophen 650 MG/20 ML UDC GT (11:22)
--- NOTE | 2017-12-12 13:51 | NURSING ---
Dr. Luis reviewed morning labs, NNO
[2017-12-12] MEDS: traMADol 50 MG Tablet GT (14:13)
--- NOTE | 2017-12-12 16:48 | NURSING ---
Dr. Luis updated on vitals, RR, pulse and BP high today. Placed on home CPAP during nap. CXR from yesterday reviewed. N.O. to change Ventolin inhaler to aerosol and begin steroids. Pt updated and LM for .
[2017-12-12 17:00] LABS: Bedside Glucose 98 mg/dL (70-110)
--- NOTE | 2017-12-12 17:53 | NURSING ---
R' is coughing persistent this afternoon, reports small amounts of yellow and brown tinged sputum. Encouraged to use incentive spirometer. Will continue to monitor
[2017-12-12] MEDS: MethylPREDNISolone 125 MG/2 ML Vial IV (18:35)
[2017-12-12 20:51] LABS: Bedside Glucose 148 mg/dL (70-110)
[2017-12-12] MEDS: MethylPREDNISolone DosePak 4 MG BOX PO (21:51)
[2017-12-12] MEDS: Pravastatin 80 MG Tablet GT (21:53)
[2017-12-12] MEDS: Amitriptyline 25 MG Tablet PO (21:53)
[2017-12-12] MEDS: Pramipexole Di-HCl 0.25 MG Tablet GT (21:53)
[2017-12-13 00:24] LABS: D-Dimer Quantitative (DVT/PE) 1.85 FEU/ug/m (0.27-0.49)
[2017-12-13 00:45] VITALS: PULSE 85; RESP 18
[2017-12-13] MEDS: Ipratropium 0.5 MG/2.5 ML SOLUTION INHALATION ×2 (00:45→07:03)
[2017-12-13] MEDS: Furosemide 40 MG Tablet GT (06:29)
[2017-12-13] MEDS: Magnesium Oxide 400 MG Tablet GT (06:29)
[2017-12-13] MEDS: Nystatin Powder 15gm Bottle 1 APPLIC TOPICAL (06:30)
[2017-12-13] MEDS: guaiFENesin 10 ML UDC (200MG/10ML) GT (06:31)
[2017-12-13 06:32] VITALS: PULSE 76
[2017-12-13] MEDS: Metoprolol Tartrate 25 MG Tablet 75 MG GT (06:32)
[2017-12-13] MEDS: AMANTADINE HCL 50 MG/5ML 100 MG GT (06:34)
[2017-12-13] MEDS: Menthol/Lanolin/Calamine/Znox 113 GM Tube 1 APPLIC TOPICAL (06:35)
[2017-12-13 06:41] LABS: Bedside Glucose 396 mg/dL (70-110)
[2017-12-13] MEDS: Insulin Lispro 100 UNIT/ML INSULN.PEN 20 UNIT SC (06:49)
[2017-12-13 07:03] VITALS: PULSE 120; RESP 20; O2SAT 94
[2017-12-13] MEDS: Budesonide Respules 0.5 MG/2 ML AMPUL.NEB. INHALATION (07:03)
[2017-12-13] MEDS: Aspirin 81 MG TAB.CHEW GT (09:02)
[2017-12-13] MEDS: MethylPREDNISolone DosePak 4 MG BOX PO (09:02)
--- NOTE | 2017-12-13 10:32 | NURSING ---
Addendum entered by Cindy Huitron 12/13/17 15:16: Patient being admitted to PCU for dx of acute hypoxic respiratory failure. here to collect belongings. Dr. Luis aware. Original Note: Upon assessment, patient tachypneic with c/o SOB. Oxygen level 77% on 3L, oxygen increased to 4L and oxygen increased to 83%. RT at bedside, NRB mask put on, patient increased to 91% on 15L, with some deep breathing, increased to 98%. Lungs course in upper lobes and diminished in posterior lobes, respirations 24/min. Patient has moist, ENTERTAINMENT MANAGER cough. Dr. Luis updated, NO to send to ER for evaluation. Patient's at bedside and aware of order to send to ER. Report called to CAMILA Alcocer in ER. Patient left until at 1030 via bed with NRB on at 15L, satting 98% before leaving unit.
--- NOTE | 2017-12-13 14:51 | PCM.DC ---
- Discharge Diagnoses Current Active Problems: Current Active and Chronic Problems (Last Updated 10/13/17 @ 09:44 by Jeannie Zavala) Fall (Acute) Traumatic brain injury (Acute) Intraparenchymal hemorrhage of brain (Acute) Subarachnoid hemorrhage (Acute) Subdural hematoma (Acute) Intraventricular hemorrhage (Acute) Right scapula fracture (Acute) Alcohol intoxication (Acute) Tobacco abuse (Chronic) Sleep apnea (Chronic) Acute respiratory failure (Acute) Acute kidney injury (Acute) Aspiration pneumonia (Acute) Dysphagia (Acute) Diabetes mellitus (Chronic) Insomnia (Chronic) Vitamin D deficiency (Chronic) Depression (Chronic) GERD (gastroesophageal reflux disease) (Chronic) BPH (benign prostatic hyperplasia) (Chronic) You will use the following diet at home:: Other - Tubefeeding only. Discharge Activity: Use Walker Weight Bearing Status: Weight bearing as tolerated Call your doctor if you observe: Fever of 101 or Higher, Inability to urinate, Inability to have a bowel movement, Shortness of breath, Chest pain, Uncontrolled pain Allergies/Adverse Reactions: Allergies atorvastatin Allergy (Verified 10/16/17 09:47) Hives cilostazol Allergy (Verified 10/16/17 09:47) Hives colestipol Allergy (Verified 10/16/17 09:47) Hives diltiazem Allergy (Verified 10/16/17 09:47) Hives gemfibrozil Allergy (Verified 10/16/17 09:47) Hives naproxen [From Naprosyn] Allergy (Verified 10/16/17 09:47) Hives niacin Allergy (Verified 10/16/17 09:47) Hives Penicillins Allergy (Verified 10/16/17 09:47) Hives pravastatin Allergy (Verified 10/16/17 09:47) Hives procaine [From Novocain] Allergy (Verified 10/16/17 09:47) Hives rosuvastatin Allergy (Verified 10/16/17 09:47) Hives simvastatin Allergy (Verified 10/16/17 09:47) Hives isosorbide Adverse Reaction (Severe, Verified 10/16/17 09:47) Unknown Medications to take at Discharge Amitriptyline HCl 100 mg GT QHS 02/16/17 Cholecalciferol (Vitamin D3) [Vitamin D3] 5,000 unit GT DAILY 02/16/17 Duloxetine HCl 60 mg GT DAILY 02/16/17 Lactase 1 tab GT TIDCM 02/16/17 Lansoprazole [Prevacid] 30 mg GT BIDCM 02/16/17 Nitroglycerin 0.4 mg SL PRN PRN 02/16/17 Ropinirole HCl [Requip] 0.5 mg GT QHS 02/16/17 Tamsulosin HCl [Flomax] 0.4 mg GT QHS 02/16/17 traMADol [Ultram] 50 mg GT TID PRN 02/16/17 Nicotine [Nicoderm] 14 mg TRANSDERM. DAILY 03/30/17 lisinopril 20 mg tablet 20 mg GT QDAY 05/20/17 glyburide 5 mg tablet 5 mg GT DAILY@1800 10/13/17 Acetaminophen 650 mg GT 4X/DAY PRN 12/04/17 Acetylcysteine 200 mg MC Q4H 12/04/17 Albuterol Inhaler [Ventolin Hfa (SP)] 1 - 2 puff INHALATION 4X/DAY PRN PRN 12/04/17 Amantadine Liquid 100 mg GT DAILY 12/04/17 Aspirin [Aspirin, Baby] 81 mg GT DAILY@0800 12/04/17 Budesonide Aerosol [Pulmicort Aerosol] 0.5 mg INHALATION BID 12/04/17 Cefepime HCl [Maxipime] 2 gm IV Q12 12/04/17 Clopidogrel Bisulfate [Plavix] 75 mg GT DAILY 12/04/17 Furosemide [Lasix] 40 mg GT BID 12/04/17 Guaifenesin [Mucinex] 600 mg PO BID 12/04/17 Insulin Glargine,Hum.rec.anlog [Lantus] 10 unit SQ DAILY@0600 12/04/17 Insulin Glargine,Hum.rec.anlog [Lantus] 15 unit SQ QHS 12/04/17 Ipratropium [Atrovent Aerosols] 0.5 mg INHALATION Q6H.RT 12/04/17 Isosorbide Mononitrate [Imdur] 60 mg GT BID 12/04/17 Magnesium Oxide [Mag-Ox 400] 400 mg GT TIDCM 12/04/17 Metoprolol Tartrate [Lopressor (beta stepan)] 75 mg GT TID 12/04/17 Metronidazole [Flagyl] 500 mg IV Q8H 12/04/17 Potassium Chloride [K-Dur] 20 meq GT DAILY@0800 12/04/17 Pravastatin [Pravachol] 80 mg PO QHS 12/04/17 ranitidine 150 mg capsule 150 mg GT QHS 12/04/17 Primary Care Physician: Julissa Lamb MD [Primary Care Provider] - Please follow up with your Primary Care Physician in: 1 week. Test Results: Test results from this visit will be discussed in further detail at your follow-up appointment, if applicable. Proposed Discharge Date: 12/13/17
[2017-12-13 14:53] VITALS: BP 138/78; PULSE 120; RESP 24; TEMP 36.8; O2SAT 90
--- NOTE | 2017-12-13 14:54 | PCM.DC.SUM ---
Discharge Date and Diagnosis - Problem List Patient Problems: Active and Suspected Problems (Last Updated 10/13/17 @ 09:44 by Jeannie Zavala) Fall (Acute) Traumatic brain injury (Acute) Intraparenchymal hemorrhage of brain (Acute) Subarachnoid hemorrhage (Acute) Subdural hematoma (Acute) Intraventricular hemorrhage (Acute) Right scapula fracture (Acute) Alcohol intoxication (Acute) Acute respiratory failure (Acute) Acute kidney injury (Acute) Aspiration pneumonia (Acute) Dysphagia (Acute) Date of Admission: 12/04/17 Date of Discharge: 12/13/17 - Primary Discharge Diagnosis Active and Suspected Problems (Last Updated 10/13/17 @ 09:44 by Jeannie Zavala) Fall (Acute) Traumatic brain injury (Acute) Intraparenchymal hemorrhage of brain (Acute) Subarachnoid hemorrhage (Acute) Subdural hematoma (Acute) Intraventricular hemorrhage (Acute) Right scapula fracture (Acute) Alcohol intoxication (Acute) Acute respiratory failure (Acute) Acute kidney injury (Acute) Aspiration pneumonia (Acute) Dysphagia (Acute) - Secondary Discharge Diagnosis Chronic Problems (Last Reviewed 10/16/17 @ 09:47 by Adele Bueno) Tobacco abuse (Chronic) Sleep apnea (Chronic) Diabetes mellitus (Chronic) Insomnia (Chronic) Vitamin D deficiency (Chronic) Depression (Chronic) GERD (gastroesophageal reflux disease) (Chronic) BPH (benign prostatic hyperplasia) (Chronic) 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) S/P CABG x3 with right radial to LAD, SVG to RCA, and SVG to OM 2; stenting to LAD in February 2017; Presence of aortocoronary bypass graft (Chronic) CABG X 3 2001 ?, Radial artery -LAD, SVG-RCA, SVG-OM2 Non-ST elevation myocardial infarction (NSTEMI), initial care episode (Chronic) 02/16/17 Nicotine dependence (Chronic) Ischemic cardiomyopathy (Chronic) Restless leg syndrome (Chronic) Hyperlipidemia (Chronic) COPD (chronic obstructive pulmonary disease) (Chronic) Hypertension (Chronic) Morbid obesity (Chronic) CAD (coronary artery disease) (Chronic) Stented coronary artery (Chronic) [facility] w/[id number] LAD (grafts occluded X 3) 02/20/17 Former smoker (Chronic) quit February 2017 Diabetes mellitus type 2 in obese (Chronic) Hx of CABG (Chronic) CABG X3 rADIAL ARTERY-lad, svg-rca, svg-om2. MULTIPLE CORONARY STENTS Hospital Course and Treatment Imaging Results: 12/04/17 20:47 NPO [Diet: Nothing Per Oral] Is pt able to select menu?: No Clinical Impression(s) from Imaging Studies Chest X-Ray 12/11/17 15:24 IMPRESSION: No acute cardiopulmonary process. There is no specific evidence of acute or chronic tuberculosis infection. Electronically Signed: José Miguel Ramírez, at 15:45 EDT Tel , Service support , Labs (Last 48 Hours) 12/11/17 12/11/17 12/12/17 16:38 21:10 01:36 WBC RBC Hgb Hct MCV MCH MCHC RDW RDW Differential Plt Count MPV Immature Gran % (Auto) Neut % (Auto) Lymph % (Auto) [place] % (Auto) Eos % (Auto) Baso % (Auto) Absolute Neuts (auto) Absolute Lymphs (auto) Total Counted D-Dimer Quant (PE/DVT) Sodium Potassium Chloride Carbon Dioxide Anion Gap BUN Creatinine Estim Creat Clear Calc Est GFR (MDRD) Af Amer Est GFR (MDRD) Non-Af BUN/Creatinine Ratio Glucose Calcium POC Glucose 134 H 94 165 H 12/12/17 12/12/17 12/12/17 06:34 07:25 07:25 WBC 10.6 RBC 3.89 L Hgb 12.1 L Hct 39.0 L MCV 100.3 H MCH 31.1 MCHC 31.0 L RDW 15.8 H RDW Differential 57.4 H Plt Count 281 MPV 11.3 Immature Gran % (Auto) 0.200 Neut % (Auto) 79.6 H Lymph % (Auto) 14.0 L [place] % (Auto) 5.0 Eos % (Auto) 0.9 Baso % (Auto) 0.3 Absolute Neuts (auto) 8.4 H Absolute Lymphs (auto) 1.48 Total Counted Not Reportable D-Dimer Quant (PE/DVT) Sodium 141 Potassium 3.5 Chloride 101 Carbon Dioxide 32.0 Anion Gap 8 BUN 28 H Creatinine 0.68 L Estim Creat Clear Calc 78.68 Est GFR (MDRD) Af Amer 150 Est GFR (MDRD) Non-Af 124 BUN/Creatinine Ratio 41.2 H Glucose 306 H Calcium 9.3 POC Glucose 339 H 12/12/17 12/12/17 12/12/17 11:09 16:52 20:42 WBC RBC Hgb Hct MCV MCH MCHC RDW RDW Differential Plt Count MPV Immature Gran % (Auto) Neut % (Auto) Lymph % (Auto) [place] % (Auto) Eos % (Auto) Baso % (Auto) Absolute Neuts (auto) Absolute Lymphs (auto) Total Counted D-Dimer Quant (PE/DVT) Sodium Potassium Chloride Carbon Dioxide Anion Gap BUN Creatinine Estim Creat Clear Calc Est GFR (MDRD) Af Amer Est GFR (MDRD) Non-Af BUN/Creatinine Ratio Glucose Calcium POC Glucose 195 H 98 148 H 12/12/17 12/13/17 23:20 06:30 WBC RBC Hgb Hct MCV MCH MCHC RDW RDW Differential Plt Count MPV Immature Gran % (Auto) Neut % (Auto) Lymph % (Auto) [place] % (Auto) Eos % (Auto) Baso % (Auto) Absolute Neuts (auto) Absolute Lymphs (auto) Total Counted D-Dimer Quant (PE/DVT) 1.85 H* Sodium Potassium Chloride Carbon Dioxide Anion Gap BUN Creatinine Estim Creat Clear Calc Est GFR (MDRD) Af Amer Est GFR (MDRD) Non-Af BUN/Creatinine Ratio Glucose Calcium POC Glucose 396 H Consultations 12/06/17 15:31 Consult: Onc/Wound/vegetable preparer Routine Comment: Reason for Consult:: coccyx wound Operations: None Procedures: None Summary of Care Provided: The patient is a 67 year old Male with below past medical history hospitalized for fall, traumatic brain injury, brain bleed resulting in right hemiplegia, complicated by aspiration pneumonia requiring PEG tube placement, admitted to TCU with debility, here for rehabilitation, strengthening, prior to disposition determination. Discharge to [facility] Emergency Department for evaluation and admission to Hospital. Discharge Diet: - - Tubefeeding only. Discharge Activity: Use Walker Weight Bearing Status: Weight bearing as tolerated Call your doctor if you observe: Fever of 101 or Higher, Inability to urinate, Inability to have a bowel movement, Shortness of breath, Chest pain, Uncontrolled pain Home Medications: Medications to take at Discharge Amitriptyline HCl 100 mg GT QHS 02/16/17 Cholecalciferol (Vitamin D3) [Vitamin D3] 5,000 unit GT DAILY 02/16/17 Duloxetine HCl 60 mg GT DAILY 02/16/17 Lactase 1 tab GT TIDCM 02/16/17 Lansoprazole [Prevacid] 30 mg GT BIDCM 02/16/17 Nitroglycerin 0.4 mg SL PRN PRN 02/16/17 Ropinirole HCl [Requip] 0.5 mg GT QHS 02/16/17 Tamsulosin HCl [Flomax] 0.4 mg GT QHS 02/16/17 traMADol [Ultram] 50 mg GT TID PRN 02/16/17 Nicotine [Nicoderm] 14 mg TRANSDERM. DAILY 03/30/17 lisinopril 20 mg tablet 20 mg GT QDAY 05/20/17 glyburide 5 mg tablet 5 mg GT DAILY@1800 10/13/17 Acetaminophen 650 mg GT 4X/DAY PRN 12/04/17 Acetylcysteine 200 mg MC Q4H 12/04/17 Albuterol Inhaler [Ventolin Hfa (SP)] 1 - 2 puff INHALATION 4X/DAY PRN PRN 12/04/17 Amantadine Liquid 100 mg GT DAILY 12/04/17 Aspirin [Aspirin, Baby] 81 mg GT DAILY@0800 12/04/17 Budesonide Aerosol [Pulmicort Aerosol] 0.5 mg INHALATION BID 12/04/17 Cefepime HCl [Maxipime] 2 gm IV Q12 12/04/17 Clopidogrel Bisulfate [Plavix] 75 mg GT DAILY 12/04/17 Furosemide [Lasix] 40 mg GT BID 12/04/17 Guaifenesin [Mucinex] 600 mg PO BID 12/04/17 Insulin Glargine,Hum.rec.anlog [Lantus] 10 unit SQ DAILY@0600 12/04/17 Insulin Glargine,Hum.rec.anlog [Lantus] 15 unit SQ QHS 12/04/17 Ipratropium [Atrovent Aerosols] 0.5 mg INHALATION Q6H.RT 12/04/17 Isosorbide Mononitrate [Imdur] 60 mg GT BID 12/04/17 Magnesium Oxide [Mag-Ox 400] 400 mg GT TIDCM 12/04/17 Metoprolol Tartrate [Lopressor (beta stepan)] 75 mg GT TID 12/04/17 Metronidazole [Flagyl] 500 mg IV Q8H 12/04/17 Potassium Chloride [K-Dur] 20 meq GT DAILY@0800 12/04/17 Pravastatin [Pravachol] 80 mg PO QHS 12/04/17 ranitidine 150 mg capsule 150 mg GT QHS 12/04/17 Primary Care Physician: Julissa Lamb MD [Primary Care Provider] - Please follow up with your Primary Care Physician in: 1 week. Disposition: Acute care Hospital Minutes spent on discharge:: 15 Patient Condition:: Guarded Medical Necessity - Tobacco Use Smoking Status: Current every day smoker Tobacco Use: Cigarettes Meaningful Use Info Meaningful Use Diagnoses (Choose all that apply): None applicable
--- NOTE | 2017-12-14 12:54 | CASEMGMT ---
Insurance Notified insurance of resident discharge on 12/13/17 to acute hospital setting. Auth#[id number] Nora JERONIMO, MOHS SURGEON/GENERAL DERMATOLOGIST
--- NOTE | 2017-12-16 15:44 | MDS.RN ---
Information for the mds was obtained from review of the clinical record, interview of resident, staff, and direct observation of resident's care.
== END 2017-12-13 15:20 | disposition short-term general hospital (02) | DRG 949 ==
PROVIDERS: Admitting Provider Family Medicine Geriatric Medicine; Family Provider Family Medicine; PCP Family Medicine; Visit Provider Family Medicine Geriatric Medicine
DX: S06.6X9D Traumatic subarachnoid hemorrhage with loss of consciousness of unspecified duration, subsequent encounter (principal); I50.21 Acute systolic (congestive) heart failure; J69.0 Pneumonitis due to inhalation of food and vomit; I25.810 Atherosclerosis of coronary artery bypass graft(s) without angina pectoris; W10.8XXD Fall (on) (from) other stairs and steps, subsequent encounter; S06.5X9D Traumatic subdural hemorrhage with loss of consciousness of unspecified duration, subsequent encounter; L89.152 Pressure ulcer of sacral region, stage 2; R32 Unspecified urinary incontinence; G25.81 Restless legs syndrome; E66.01 Morbid (severe) obesity due to excess calories; Z68.36 Body mass index [BMI] 36.0-36.9, adult; Z71.3 Dietary counseling and surveillance; K21.9 Gastro-esophageal reflux disease without esophagitis; N40.0 Benign prostatic hyperplasia without lower urinary tract symptoms; I25.2 Old myocardial infarction; J44.9 Chronic obstructive pulmonary disease, unspecified; Z95.1 Presence of aortocoronary bypass graft; S42.101D Fracture of unspecified part of scapula, right shoulder, subsequent encounter for fracture with routine healing; E78.5 Hyperlipidemia, unspecified; I11.0 Hypertensive heart disease with heart failure; F32.9 Major depressive disorder, single episode, unspecified; G47.33 Obstructive sleep apnea (adult) (pediatric); F17.210 Nicotine dependence, cigarettes, uncomplicated; Z66 Do not resuscitate; E87.6 Hypokalemia; L60.8 Other nail disorders; R13.10 Dysphagia, unspecified; B35.1 Tinea unguium; M79.675 Pain in left toe(s); M79.674 Pain in right toe(s); S06.369D Traumatic hemorrhage of cerebrum, unspecified, with loss of consciousness of unspecified duration, subsequent encounter
CPT/HCPCS: 71046; 80048; 82962; 85025; 85379; 92526; 92610; 94640; 97110; 97112; 97140; 97162; 97163; 97167; 97530; 97535; 97537; 97802; 99406; J2997; J7050; A4216

== ENCOUNTER 2017-12-13 10:48 | Inpatient (IN) | payer MEDICARE, MEDICAID, SELFPAY ==
[2017-02-20 12:18] VITALS: BMI 46.4
[2017-12-13] VITALS (12 sets, daily range): BP systolic 132–172; BP diastolic 65–102; PULSE 82–123; RESP 15–28; TEMP 36.7–37.7; O2SAT 96–100; BMI 35.4; BMI 35.3
--- NOTE | 2017-12-13 10:54 | EKG12_ITS ---
Test Reason : SOB Blood Pressure : / mmHG Vent. Rate : 120 BPM Atrial Rate : 120 BPM P-R Int : 136 ms QRS Dur : 102 ms QT Int : 334 ms P-R-T Axes : 061 045 -07 degrees QTc Int : 472 ms Sinus tachycardia with Premature supraventricular complexes Inferior infarct , age undetermined , cannot be excluded Abnormal ECG Confirmed by SANDRA MATTA, ANTONY ([id number]), food expeditor NEL FERRO ([id number]) on 12/17/2017 1:04:08 PM Referred By: PHILLIP Confirmed By:ANTONY FLORES MD
--- NOTE | 2017-12-13 10:56 | RAD_ITS ---
STUDY: X-RAY CHEST REASON FOR EXAM: Male, 67 years old. Cough and shortness of breath. TECHNIQUE: AP upright portable view. COMPARISON: 12/11/2017. FINDINGS: Left PICC line catheter tip remains in the SVC/right upper atrial chamber junction. The sternal wires are not fractured. Breast shadow in the right midlung. The lungs are clear. There is no demonstrated pleural abnormality. Normal size heart. Normal mediastinum and ita. Normal visualized pulmonary arteries. Normal visualized aortic arch and descending thoracic aorta. Normal visualized thoracic spine. Normal visualized ribs, clavicles, and shoulders. There is no demonstrated abnormality of the visualized soft tissue structures of the upper abdomen. RAD/Chest 1 View (Portable) IMPRESSION: 1. No acute cardiopulmonary pathology. 2. No interval changes when compared to 12/11/2017. Electronically Signed: Cristofer Vann MD at 11:12 EDT , Service support ,
--- NOTE | 2017-12-13 11:03 | ED.DCSUM_ITS ---
- ER Visit Summary Date of Service: 12/13/17 Chief Complaint: Shortness of breath History of Present Illness: The patient is a 67 M presents to the emergency department from TCU with increasing dyspnea. Patient has a rather complex medical history. He was recently hospitalized at [facility]. The patient was a trauma. He fell down 15 stairs while intoxicated. He had intraparenchymal, subdural, and subarachnoid hemorrhage. He was intubated for a period of time. When extubated, was found that he had right-sided weakness. The patient does have underlying history of coronary vascular disease and CHF. He is verbal, but will only answer questions yes or no. states that he is confused but this is his baseline. The patient has been being treated for aspiration pneumonia. He is on IV antibiotics through PICC line. Over the past 24 hours, his shortness of breath is worsened. He has been on oxygen, but his oxygen demand has increased. He denies any chest pain. He has had a scant cough with difficulty clearing his secretions. He denies any abdominal pain. The patient apparently had an elevated d-dimer last night. He is not an anticoagulation candidate given recent multiple brain hemorrhages. Physical Examination: Vital signs reviewed General: Well-nourished, well-developed Head: Normocephalic, atraumatic Eyes: Pupils equal and reactive, extraocular muscles intact Neck, supple, no lymphadenopathy Heart: Regular tachycardic rhythm Respiratory: No distress, diminished lung sounds throughout Abdomen: Soft, nontender, nondistended, no peritoneal signs Back: Nontender Extremities: Nontender, no edema, no cords Skin: Normal color no rash Neuro: Diffuse right-sided weakness, chronic Test Results: [] Emergency Department Course and Treatment: The patient presents with shortness of breath, low-grade fever, and chills. Sepsis workup was pursued. His EKG shows sinus tachycardia without evidence of acute ischemia. Chest x-ray does not show volume overload or infiltrate. Screening labs do show leukocytosis and a lactate of 2. Cardiac enzymes are normal. Urine shows no infection. I was concerned given the patient's dyspnea and increasing oxygen requirement. I did obtain a CT of his chest. There is no large pulmonary embolus that is visible. There is atelectasis but no definitive infiltrate. Blood cultures were obtained. At this time, the patient does meet sepsis criteria but I am unsure of the cause. He has multiple risks and has had an indwelling PICC for over 3 weeks. The patient will be started on broad-spectrum antibiotics here and he was discussed with the hospitalist will be admitted to the PCU. The patient is DNR comfort care arrest with no intubation. This was relayed to the hospitalist. Treatment Plan: [] Disposition: Admission Impression: 1. Sepsis 2. Dyspnea This note was generated with [employer] dictation software. It may contain incorrect words, spelling, and punctuation that were not noted in review of the chart prior to signing ED Disposition - Plan for ED Patient: Chief Complaint: Shortness of Breath Referrals: Julissa Lamb MD [Primary Care Provider] -
[2017-12-13 11:16] LABS: Absolute Lymphocyte Count 1.81 X10^3/ul (0.83-4.51); Basophil# 0.02 X10^3/uL; Basophil% 0.1 % (0-1); Eosinophil# 0.01 X10^3/uL; Eosinophils% 0.1 % (0-5); Hemoglobin 12.5 g/dl (13.0-16.5); Lymphocyte # 1.81 X10^3/ul (4.0); Lymphocyte % 12.2 % (19-41); Mean Corp Hgb Conc 31.3 g/gl (32-36); Mean Corpuscular Hgb 30.8 pg (27.0-32.0); Mean Corpuscular Volume 98.5 fL (80-94); Mean Platelet Vol. 11.7 fl (6.2-12.0); Monocyte# 0.92 X10^3/uL; Monocyte% 6.2 % (0-10); Neutrophil # 12.03 X10^3/uL (2.7-7.7); Neutrophil % 81.3 % (47-70); Platelet Count 316 K/mm3 (150-450); RBC Distribution Width CV 15.9 % (11.6-14.6); RBC Distribution Width SD 57.5 fl (35.1-43.9); Red Blood Count 4.06 M/mm3 (4.6-6.2); White Blood Count 14.8 K/mm3 (4.4-11.0)
[2017-12-13 11:17] LABS: POSITIVE COUNT NO; POSITIVE DIFFERENTIAL NO; POSITIVE MORPHOLOGY NO
--- NOTE | 2017-12-13 11:20 | CT_ITS ---
STUDY: CTA CHEST REASON FOR EXAM: Male, 67 years old. Hypoxia. Elevated WBC. Elevated d-dimer. RADIATION DOSAGE (If Supplied By Facility): CTDIvol = ( 13.35 ) mGy, DLP = ( 732.37 ) mGycm TECHNIQUE: The examination was performed with the intravenous administration of 100mL ml of Isovue 370 contrast material. Post-processing of the angiographic images was performed, with multiplanar reformation and MIP reconstruction. Individualized dose optimization techniques were used for this CT. COMPARISON: None. FINDINGS: Normal enhancement of the main pulmonary artery and right and left pulmonary arteries. Suboptimal contrast enhancement of the bilateral peripheral pulmonary arteries. No central pulmonary thromboemboli. Peripheral pulmonary thromboemboli cannot be evaluated. Normal thoracic aorta and visualized great vessels. There is no demonstrated aortic dissection. Normal cardiac size. No pericardial fluid. Median sternotomy from prior CABG procedure. Normal mediastinum. Normal hilar regions. Normal visualized trachea and bronchi. Mild pulmonary hypoinflation. Minimal subsegmental atelectasis in the posterior lung bases. No suspicious pulmonary nodules or infiltrates. Normal pleura. Normal chest wall structures. Acute fractures of the right scapula. Normal visualized upper abdomen. CT/CTA Chest W/WO Contrast IMPRESSION: 1. No CTA evidence of central pulmonary thromboemboli but suboptimal contrast opacification of the peripheral pulmonary arteries. Peripheral pulmonary thromboemboli cannot be excluded. Ventilation/perfusion lung scan may be helpful for further evaluation. 2. No CTA evidence of thoracic aortic aneurysm or thoracic aortic dissection. 3. Minimal subsegmental atelectases in the posterior lung bases. 4. Acute fracture comminution of the right scapula. Electronically Signed: Cristofer Vann MD at 12:30 EDT , Service support ,
[2017-12-13 11:31] LABS: ALB/GLOB Ratio 0.6 RATIO (0.9-2.4); AST(SGOT) 27 U/L (15-37); Alanine Aminotransfer ALT/SGPT 80 U/L (16-61); Albumin, Serum 3.2 g/dL (3.2-5.0); Alkaline Phosphatase 88 U/L (45-117); Anion Gap 7 (5-15); BUN 33 mg/dL (7-18); Calcium,Total 9.4 mg/dL (8.5-10.1); Chloride 102 mmol/L (98-107); Creatinine, Serum 0.77 mg/dL (0.70-1.30); EST Glomerular Filtration Rate 107 mL/min (>60); Est Glom Filt Rate - Afr Amer 130 mL/min (>60); Estimated Creatinine Clearance 74.01 ml/min; Globulin 5.2 g/dL (2.2-4.2); Glucose 278 mg/dL (74-106); Protein, Total 8.4 g/dL (6.4-8.2); Sodium Level 141 mmol/L (136-145)
[2017-12-13 11:38] LABS: Mucous, Urine 0 SEEN /hpf (<or=2+); Red Blood Cells-Urine 0 SEEN /hpf (0-5); Squamous Epithelial Cells - UA 0 SEEN /hpf (0-5); White Blood Cells 0 SEEN /hpf (0-5)
[2017-12-13 11:43] LABS: BNP,B-Type NATRIURETIC PEPTIDE 125.6 pg/mL (0-100)
[2017-12-13 11:46] LABS: Color, Urine Yellow (Yellow); Glucose, Dipstick 1000 mg/dl (Normal); Ketone-Dipstick Negative (Negative); Leukocyte Esterase-Dipstick Negative /ul (Negative); Nitrite-Dipstick Negative (Negative); Occult Blood-Urine 10 /ul (Negative); Protein-Dipstick Negative (Negative); Specific Gravity, Urine 1.015 (1.002-1.030); Urine Bilirubin Dipstick Negative (Negative); Urine Clarity Clear (Clear); Urine Urobilinogen Normal (Normal)
[2017-12-13 11:56] LABS: Bacteria RARE /hpf (None Seen); Hyaline Cast 0-5 SEEN /lpf (0-5)
[2017-12-13 12:16] LABS: Allen Test POS; Base Excess 8 mmol/L (-2 to +2); Blood Gas Specimen Type ART; O2 Delivery Device NRB Mask; PO2 188 mmHG (75-100); SITE R Radial; SO2 100 % (95-99); Time Given 1205; Total Carbon Dioxide 33 mmol/L; pCO2 43.6 mmHg (35-45); pH 7.47 (7.35-7.45)
--- NOTE | 2017-12-13 13:34 | ED.RN ---
called pharmacy at 10 min after order placed to remind about antibiotics and now at 38 min and also called for trandate for BP
[2017-12-13 15:04] LABS: Reflex Lactate? Y
--- NOTE | 2017-12-13 15:05 | PCM.HP.STD ---
Problem List (1) Acute and chronic respiratory failure with hypoxia Status: Acute (2) Traumatic brain injury Status: Chronic Qualifiers: Encounter type: sequela Loss of consciousness presence/duration: with LOC of unspecified duration Qualified Code(s): S06.9X9S - Unspecified intracranial injury with loss of consciousness of unspecified duration, sequela (3) Intraparenchymal hemorrhage of brain Status: Acute (4) Subarachnoid hemorrhage Status: Chronic (5) Subdural hematoma Status: Chronic (6) Intraventricular hemorrhage Status: Chronic (7) Right scapula fracture Status: Chronic (8) Tobacco abuse Status: Chronic (9) Sleep apnea Status: Chronic (10) Dysphagia Status: Chronic (11) Diabetes mellitus Status: Chronic Qualifiers: Diabetes mellitus type: type 2 Diabetes mellitus complication status: with unspecified complications (12) Depression Status: Chronic (13) GERD (gastroesophageal reflux disease) Status: Chronic (14) BPH (benign prostatic hyperplasia) Status: Chronic (15) Obstructive sleep apnea Status: Chronic (16) Arteriosclerosis of arterial coronary artery bypass graft Status: Chronic Comment: S/P CABG x3 with right radial to LAD, SVG to RCA, and SVG to OM 2; stenting to LAD in February 2017; (17) Presence of aortocoronary bypass graft Status: Chronic Comment: CABG X 3 2001 ?, Radial artery -LAD, SVG-RCA, SVG-OM2 (18) Ischemic cardiomyopathy Status: Chronic (19) Restless leg syndrome Status: Chronic (20) COPD (chronic obstructive pulmonary disease) Status: Chronic (21) Hypertension Status: Chronic Qualifiers: (22) Morbid obesity Status: Chronic (23) CAD (coronary artery disease) Status: Chronic (24) Former smoker Status: Chronic Comment: quit February 2017 (25) Diabetes mellitus type 2 in obese Status: Chronic (26) Hx of CABG Status: Chronic Comment: CABG X3 rADIAL ARTERY-lad, svg-rca, svg-om2. MULTIPLE CORONARY STENTS History of Present Illness Date of Admission: 12/13/17 Chief Complaint: Shortness of breath x 1 day The patient is a 67 M was transferred from the TCU to the ED because of increasing dyspnea. Patient has a significant medical history of CAD status post CABG about 20 years ago and coronary stents in 2017, systolic heart failure, COPD, obstructive sleep apnea, diabetes; tobacco abuse and was hospitalized in a hospital at [facility] ( around October 27) after sustaining a traumatic brain injury (including intraparenchymal, subdural, and subarachnoid hemorrhage) secondary to a fall while intoxicated with alcohol. After his intracranial injury he was found to have right sided stroke. During the course of his hospitalization at [facility], he was intubated about 2 times. He has had bouts of aspiration pneumonia and has received multiple doses of cefepime and Flagyl. He had a PICC line placed for antibiotics administration. After his hospitalization at [facility] he was brought to a transitional care unit for rehabilitation. Because of his multiple aspiration patient has been on tube feeding. A day before this admission he was noted to have increasing shortness of breath and a positive d-dimer. He denies any vomiting. His oxygen saturation was in the 70s-80s requiring non-rebreather mask. At the Emergency department his d-dimer was elevated, chest x-ray and CTA showed minimal subsegmental atelectases in the posterior lung bases. Past Medical History Past Medical History (Chronic Problems): Chronic Problems (Last Reviewed 10/16/17 @ 09:47 by Adele Bueno) Traumatic brain injury (Chronic) Subarachnoid hemorrhage (Chronic) Subdural hematoma (Chronic) Intraventricular hemorrhage (Chronic) Right scapula fracture (Chronic) Tobacco abuse (Chronic) Sleep apnea (Chronic) Dysphagia (Chronic) Diabetes mellitus (Chronic) Insomnia (Chronic) Vitamin D deficiency (Chronic) Depression (Chronic) GERD (gastroesophageal reflux disease) (Chronic) BPH (benign prostatic hyperplasia) (Chronic) Obstructive sleep apnea (Chronic) 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) S/P CABG x3 with right radial to LAD, SVG to RCA, and SVG to OM 2; stenting to LAD in February 2017; Presence of aortocoronary bypass graft (Chronic) CABG X 3 2001 ?, Radial artery -LAD, SVG-RCA, SVG-OM2 Non-ST elevation myocardial infarction (NSTEMI), initial care episode (Chronic) 02/16/17 Nicotine dependence (Chronic) Ischemic cardiomyopathy (Chronic) Restless leg syndrome (Chronic) Hyperlipidemia (Chronic) COPD (chronic obstructive pulmonary disease) (Chronic) Hypertension (Chronic) Morbid obesity (Chronic) CAD (coronary artery disease) (Chronic) Stented coronary artery (Chronic) [facility] [id number] LAD (grafts occluded X 3) 02/20/17 Former smoker (Chronic) quit February 2017 Diabetes mellitus type 2 in obese (Chronic) Hx of CABG (Chronic) CABG X3 rADIAL ARTERY-lad, svg-rca, svg-om2. MULTIPLE CORONARY STENTS Medical History: Medical History (Last Updated 10/13/17 @ 09:44 by Jeannie Zavala) Encounter for long-term current use of high risk medication (Acute) Z79.899 Obstructive sleep apnea (Chronic) G47.33 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) I25.810 S/P CABG x3 with right radial to LAD, SVG to RCA, and SVG to OM 2; stenting to LAD in February 2017; Non-ST elevation myocardial infarction (NSTEMI), initial care episode (Chronic) I21.4 02/16/17 Nicotine dependence (Chronic) F17.200 Ischemic cardiomyopathy (Chronic) I25.5 FUO (fever of unknown origin) (Acute) Restless leg syndrome (Chronic) Hyperlipidemia (Chronic) E78.5 Hypertensive emergency (Acute) I16.1 Demand ischemia (Acute) I24.8 COPD (chronic obstructive pulmonary disease) (Chronic) J44.9 Hypertension (Chronic) I10 Morbid obesity (Chronic) E66.01 Systolic CHF, acute (Acute) I50.21 CAD (coronary artery disease) (Chronic) I25.10 Stented coronary artery (Chronic) [facility] w/[id number] LAD (grafts occluded X 3) 02/20/17 Former smoker (Chronic) Z87.891 quit February 2017 Acute respiratory failure with hypoxemia (Acute) J96.01 Diabetes mellitus type 2 in obese (Chronic) E11.69, E66.9 Allergies atorvastatin Allergy (Verified 10/16/17 09:47) Hives cilostazol Allergy (Verified 10/16/17 09:47) Hives colestipol Allergy (Verified 10/16/17 09:47) Hives diltiazem Allergy (Verified 10/16/17 09:47) Hives gemfibrozil Allergy (Verified 10/16/17 09:47) Hives naproxen [From Naprosyn] Allergy (Verified 10/16/17 09:47) Hives niacin Allergy (Verified 10/16/17 09:47) Hives Penicillins Allergy (Verified 10/16/17 09:47) Hives pravastatin Allergy (Verified 10/16/17 09:47) Hives procaine [From Novocain] Allergy (Verified 10/16/17 09:47) Hives rosuvastatin Allergy (Verified 10/16/17 09:47) Hives simvastatin Allergy (Verified 10/16/17 09:47) Hives isosorbide Adverse Reaction (Severe, Verified 10/16/17 09:47) Unknown Home Medications: Ambulatory Orders Medication Instructions Recorded Amitriptyline HCl 100 mg GT QHS 02/16/17 Cholecalciferol (Vitamin D3) 5,000 unit GT DAILY 02/16/17 [Vitamin D3] Duloxetine HCl 60 mg GT DAILY 02/16/17 Lactase 1 tab GT TIDCM 02/16/17 Lansoprazole [Prevacid] 30 mg GT BIDCM 02/16/17 Nitroglycerin 0.4 mg SL PRN PRN 02/16/17 Ropinirole HCl [Requip] 0.5 mg GT QHS 02/16/17 Tamsulosin HCl [Flomax] 0.4 mg GT QHS 02/16/17 traMADol [Ultram] 50 mg GT TID PRN 02/16/17 Nicotine [Nicoderm] 14 mg TRANSDERM. DAILY 03/30/17 lisinopril 20 mg tablet 20 mg GT QDAY 05/20/17 glyburide 5 mg tablet 5 mg GT DAILY@1800 10/13/17 Acetaminophen 650 mg GT 4X/DAY PRN 12/04/17 Acetylcysteine 200 mg MC Q4H 12/04/17 Albuterol Inhaler [Ventolin Hfa 1 - 2 puff INHALATION 4X/DAY PRN 12/04/17 (SP)] PRN Amantadine Liquid 100 mg GT DAILY 12/04/17 Aspirin [Aspirin, Baby] 81 mg GT DAILY@0800 12/04/17 Budesonide Aerosol [Pulmicort 0.5 mg INHALATION BID 12/04/17 Aerosol] Cefepime HCl [Maxipime] 2 gm IV Q12 12/04/17 Clopidogrel Bisulfate [Plavix] 75 mg GT DAILY 12/04/17 Furosemide [Lasix] 40 mg GT BID 12/04/17 Guaifenesin [Mucinex] 600 mg PO BID 12/04/17 Insulin Glargine,Hum.rec.anlog 10 unit SQ DAILY@0600 12/04/17 [Lantus] Insulin Glargine,Hum.rec.anlog 15 unit SQ QHS 12/04/17 [Lantus] Ipratropium [Atrovent Aerosols] 0.5 mg INHALATION Q6H.RT 12/04/17 Isosorbide Mononitrate [Imdur] 60 mg GT BID 12/04/17 Magnesium Oxide [Mag-Ox 400] 400 mg GT TIDCM 12/04/17 Metoprolol Tartrate [Lopressor 75 mg GT TID 12/04/17 (beta stepan)] Metronidazole [Flagyl] 500 mg IV Q8H 12/04/17 Potassium Chloride [K-Dur] 20 meq GT DAILY@0800 12/04/17 Pravastatin [Pravachol] 80 mg PO QHS 12/04/17 ranitidine 150 mg capsule 150 mg GT QHS 12/04/17 Surgical History: Surgical History (Last Reviewed 10/16/17 @ 09:47 by Adele Bueno) Presence of coronary angioplasty implant and graft (Acute) Z95.5 Presence of aortocoronary bypass graft (Chronic) Z95.1 CABG X 3 2002 ?, Radial artery -LAD, SVG-RCA, SVG-OM2 Hx of CABG (Chronic) CABG X3 rADIAL ARTERY-lad, svg-rca, svg-om2. MULTIPLE CORONARY STENTS Surgical History: angioplasty, coronary bypass surgery, - - PEG tube. Psychiatric History: Depression Smoking Status: Former smoker - *Family History Maternal Family History: Family History (Last Updated 10/16/17 @ 09:48 by Adele Bueno) Brother Heart disease Father Heart disease History Items: No pertinent history, - - Alzheimer Paternal Family History: Family History (Last Updated 10/16/17 @ 09:48 by Adele Bueno) Brother Heart disease Father Heart disease History Items: No pertinent history Review of Systems Constitutional: Reports: Malaise Eyes: Denies: Pain HEENT: Reports: Dysphasia. Denies: Head Aches, Hearing Changes Cardiovascular: Denies: Chest Pain, Chest Pressure Respiratory: Reports: - - wet cough but unable to clear secretions. Gastrointestinal: Denies: Abdominal Pain, Nausea, Vomiting Genitourinary: Denies: Dysuria Musculoskeletal: Reports: Shoulder Pain Skin: Reports: Wounds - coccyx-sacral, - Neurological: Reports: Difficulty swallowing, Focal weakness Hematologic/ Lymphatic: Denies: Easy Bruising, Easy Bleeding VTE Information - Inpt Only VTE Present on Admission: No VTE Mechan Device Prophylaxis: None VTE Pharm Prophylaxis ordered?: Yes Patient Problems: Active and Suspected Problems (Last Updated 10/13/17 @ 09:44 by Jeannie Zavala) Acute and chronic respiratory failure with hypoxia (Acute) - Physical Exam General: Alert, Oriented x3, Cooperative HEENT: Normocephalic Oral: Dry Mucosa Neck: No JVD Lungs: Diminished Cardiovascular: Tachycardic Abdomen: Bowel Sounds Present Extremities: Tenderness - Right shoulder Lymphatic: No Cervical, Supraclavicular, or Inguinal Adenopathy Neurological: - - Flaccid right upper extremity, flaccid right lower extremity. Psych/Mental Status: Normal Affect Vital Signs Temp Pulse Resp BP Pulse Ox 99.8 F H 105 H 22 H 171/102 H 100 12/13/17 10:50 12/13/17 14:04 12/13/17 14:04 12/13/17 14:04 12/13/17 14:04 Oxygen Flow Rate (L/min) 4 Oxygen Delivery Method Nasal Cannula Assessment/Plan All Active Problems (Last Updated 10/13/17 @ 09:44 by Jeannie Zavala) Fall (Acute) Intraparenchymal hemorrhage of brain (Acute) Alcohol intoxication (Resolved) Acute respiratory failure (Acute) Acute kidney injury (Acute) Aspiration pneumonia (Acute) Acute and chronic respiratory failure with hypoxia (Acute) Encounter for long-term current use of high risk medication (Acute) Presence of coronary angioplasty implant and graft (Acute) FUO (fever of unknown origin) (Acute) Hypertensive emergency (Acute) Demand ischemia (Acute) Systolic CHF, acute (Acute) Acute respiratory failure with hypoxemia (Acute) Acute respiratory failure with hypoxia and hypercarbia (Resolved) Multifocal community-acquired pneumonia (Resolved) Severe sepsis (Resolved) This is a 67-year-old patient with past medical history systolic heart failure, COPD, CAD status post CABG and stents, and with multiple aspiration pneumonia after a traumatic brain injury who presented with increasing shortness of breath above his baseline and also was found to be severely hypoxic. Acute on chronic respiratory failure with hypoxia White blood count 14.8 Lactic acid 2.5 With his recurrent bouts of aspiration pneumonia although his chest x-ray is not impressive will treat empirically for aspiration pneumonia with cefepime and metronidazole. Patient is allergic to penicillins (hives). This patient has been admitted in the healthcare settings since October 2017 and he is at risk for multidrug-resistant pneumonia. Vancomycin ?1 dose was ordered at the ED. Vancomycin IV continued. Pharmacy to dose. MRSA screening ordered. If MRSA screen is negative vancomycin can be discontinued. We will hydrate with gentle IV fluids in view of positive lactic acidosis. He has a history of systolic heart failure but he does not look fluid overloaded at this time and his BNP is in the 100s. Repeat lactic acid per protocol. Blood cultures x2 from PICC line and peripherally are pending. Pulmonary toileting Sputum cultures, strep antigen and Legionella antigen ordered Diabetes mellitus type 2 Glyburide continued Home basal insulin a continued Placed on every 6 Accu-Cheks with correction scale. We will continue his tube feeding that he was on falls at transitional care units [employer] consult for tube feeding. Hypertension Isosorbide mononitrate, lisinopril,metoprolol continued. At admission received labetalol 10 mg IV ?1. Tobacco abuse Nicotine 14 mg patch discontinued in view of his recent change in condition. If his acute symptoms resolved. Recommend to discontinue Nicotine patch. Fracture of the right shoulder Family stated that this is not new. Continue tramadol. BPH Home medications continued Pressure Ulcer Wound Care consult. DVT prophylaxis Lovenox subcutaneous. Code Visit Inpatient E&M: 35742 Init Hosp L2
[2017-12-13 16:05] LABS: Lactic Acid 2.5 mmol/L (0.4-2.0)
--- NOTE | 2017-12-13 16:06 | PCM.RX.CS ---
Consult Pharmacy has been consulted to manage selected antiobiotic: Vancomycin Type of Consult: New start Suspected Infection: Other Prior Doses of Antibiotics Received/Current Regimen: VANCOMYCIN 1500MG X1 IN ED 12/13 @1345 Labs: Sodium 141 mmol/L (136-145) 12/13/17 10:58 Potassium 4.0 mmol/L (3.5-5.1) 12/13/17 10:58 Chloride 102 mmol/L (98-107) 12/13/17 10:58 Carbon Dioxide 32.0 mmol/L (21.0-32.0) 12/13/17 10:58 Anion Gap 7 (5-15) 12/13/17 10:58 BUN 33 mg/dL (7-18) H 12/13/17 10:58 Creatinine 0.77 mg/dL (0.70-1.30) 12/13/17 10:58 Est GFR (MDRD) Af Amer 130 mL/min (>60) 12/13/17 10:58 Est GFR (MDRD) Non-Af 107 mL/min (>60) 12/13/17 10:58 BUN/Creatinine Ratio 43.0 RATIO (10-20) H 12/13/17 10:58 Glucose 278 mg/dL (74-106) H 12/13/17 10:58 Weight used for dosin kg Estimated Creatinine Clearance: 74ML/MIN Goal Trough: 15-20 mcg/mL Pharmacy Plan for Drug Dosing: PLAN/RECOMMENDATIONS 1. Vancomycin 1750mg IV Q12hrs to start 12/14 @0200 2. Trough scheduled 12/15 @0130, prior to 4th total vancomycin dose 3. Pharmacy Service will continue to monitor and adjust dosing as required.
[2017-12-13] MEDS: 0.9% Normal Saline 1,000 ML 75 ML IV (17:52)
[2017-12-13] MEDS: Insulin Lispro 100 UNIT/ML INSULN.PEN SQ (18:18)
[2017-12-13] MEDS: Magnesium Oxide 400 MG Tablet GT (18:19)
[2017-12-13 18:36] LABS: Bedside Glucose 277 mg/dL (70-110)
[2017-12-13] MEDS: Ipratropium/Albuterol Sulfate 3 ML AMPUL.NEB INHALATION (19:01)
[2017-12-13] MEDS: Budesonide Respules 0.5 MG/2 ML AMPUL.NEB. INHALATION (19:02)
[2017-12-13 19:33] LABS: M R Staph aureus DNA By PCR Negative (Negative); Probe Check PASS; Specimen Processing Control PASS
[2017-12-13] MEDS: Pivot 1.5 Cal 1,000 ML 108 ML GT (20:49)
[2017-12-13] MEDS: Tamsulosin HCl 0.4 MG Capsule PO (21:58)
[2017-12-13] MEDS: amLODIPine 10 MG Tablet PO (21:58)
[2017-12-13] MEDS: Pramipexole Di-HCl 0.25 MG Tablet GT (21:59)
[2017-12-13] MEDS: Metoprolol Tartrate 50 MG Tablet 150 MG GT (21:59)
[2017-12-13] MEDS: Amitriptyline 100 MG Tablet GT (22:00)
[2017-12-13] MEDS: Pravastatin 80 MG Tablet PO (22:00)
[2017-12-13 22:46] LABS: Bedside Glucose 271 mg/dL (70-110)
[2017-12-14] VITALS (19 sets, daily range): BP systolic 103–138; BP diastolic 52–68; PULSE 73–118; RESP 18–22; TEMP 36.9–37.3; O2SAT 93–98
[2017-12-14] MEDS: 0.9% NaCl PICC Flush IV ×5 (00:06→21:41)
[2017-12-14] MEDS: Insulin Lispro 100 UNIT/ML INSULN.PEN SQ ×5 (00:07→23:56)
[2017-12-14 00:16] LABS: Bedside Glucose 368 mg/dL (70-110)
[2017-12-14 05:17] LABS: Absolute Lymphocyte Count 1.42 X10^3/ul (0.83-4.51); Absolute Neutrophil Count 8.7 X10^3/uL (2.0-7.7); Basophil# 0.03 X10^3/uL; Basophil% 0.3 % (0-1); Eosinophil# 0.04 X10^3/uL; Eosinophils% 0.4 % (0-5); Hematocrit 35.6 % (40-54); Hemoglobin 10.7 g/dl (13.0-16.5); Lymphocyte # 1.42 X10^3/ul (4.0); Mean Corp Hgb Conc 30.1 g/gl (32-36); Mean Corpuscular Hgb 30.5 pg (27.0-32.0); Mean Corpuscular Volume 101.4 fL (80-94); Mean Platelet Vol. 11.8 fl (6.2-12.0); Monocyte# 0.76 X10^3/uL; Monocyte% 6.9 % (0-10); Neutrophil % 79.3 % (47-70); Platelet Count 255 K/mm3 (150-450); RBC Distribution Width CV 16.6 % (11.6-14.6); RBC Distribution Width SD 61.3 fl (35.1-43.9); Red Blood Count 3.51 M/mm3 (4.6-6.2)
[2017-12-14 05:31] LABS: Anion Gap 8 (5-15); BUN 36 mg/dL (7-18); BUN/Creat Ratio 54.6 RATIO (10-20); Chloride 107 mmol/L (98-107); Creatinine, Serum 0.66 mg/dL (0.70-1.30); EST Glomerular Filtration Rate 128 mL/min (>60); Est Glom Filt Rate - Afr Amer 155 mL/min (>60); Estimated Creatinine Clearance 74.01 ml/min; Glucose 384 mg/dL (74-106); Potassium 4.1 mmol/L (3.5-5.1); Sodium Level 145 mmol/L (136-145)
[2017-12-14 06:06] LABS: Bedside Glucose 394 mg/dL (70-110)
[2017-12-14 06:33] LABS: POSITIVE COUNT NO; POSITIVE DIFFERENTIAL NO; POSITIVE MORPHOLOGY NO
[2017-12-14] MEDS: Metoprolol Tartrate 50 MG Tablet 150 MG GT ×3 (07:00→21:13)
[2017-12-14] MEDS: Pivot 1.5 Cal 1,000 ML 108 ML GT ×2 (07:04→21:01)
[2017-12-14] MEDS: Ipratropium/Albuterol Sulfate 3 ML AMPUL.NEB INHALATION ×3 (07:23→19:30)
[2017-12-14] MEDS: Lisinopril 20 MG Tablet GT (11:00)
[2017-12-14] MEDS: amLODIPine 10 MG Tablet PO (11:00)
[2017-12-14] MEDS: Aspirin 81 MG TAB.CHEW GT (11:00)
[2017-12-14] MEDS: Magnesium Oxide 400 MG Tablet GT ×2 (11:00→16:22)
[2017-12-14] MEDS: Clopidogrel Bisulfate 75 MG Tablet GT (11:00)
[2017-12-14] MEDS: AMANTADINE HCL 50 MG/5ML 100 MG GT (11:04)
[2017-12-14] MEDS: Enoxaparin 40 MG/0.4 ML Syringe SC (11:07)
[2017-12-14 12:51] LABS: Bedside Glucose 327 mg/dL (70-110)
--- NOTE | 2017-12-14 13:27 | PCM.PN.HOSP ---
Patient Problems: Active and Suspected Problems (Last Updated 10/13/17 @ 09:44 by Jeannie Zavala) Acute and chronic respiratory failure with hypoxia (Acute) Subjective: breathing better. +productive cough. Vitals/I&O's: Vital Signs Temp Pulse Resp BP Pulse Ox 36.9 C 100 18 135/68 H 96 12/14/17 11:00 12/14/17 11:00 12/14/17 11:00 12/14/17 11:00 12/14/17 11:00 Oxygen Flow Rate (L/min) 2 Oxygen Delivery Method CPAP Weight: 111.9 kg Body Mass Index (BMI) 35.3 Intake and Output for Last 24 Hours 12/12/17 12/13/17 12/14/17 23:59 23:59 23:59 Intake Total 1868 3133 / 3133 Balance 1868 3133 / 3133 General: Alert, No apparent distress, - - on CPAP. no resp distress. hypophonic voice. HEENT: Atraumatic, Normocephalic Neck: No Nodes, Thyroid Normal Size and Texture Lungs: No rhonchi, No wheeze, Diminished Cardiovascular: Regular rate, Regular Rhythm, Normal S1, Normal S2 Abdomen: Bowel Sounds Present, Soft, Non Tender, Non-Distended Extremities: No edema, No Calf Tenderness Musculoskeletal: No Tenderness to Palpation of Joints or Extremities, No Muscle Wasting Psych/Mental Status: Normal Affect, Appropriate Laboratory Results 12/13/17 15:24: Lactic Acid 2.5 H 12/13/17 18:00: MRSA (PCR) Negative 12/13/17 18:17: POC Glucose 277 H 12/13/17 21:58: POC Glucose 271 H 12/14/17 00:05: POC Glucose 368 H 12/14/17 05:05: WBC 11.0, RBC 3.51 L, Hgb 10.7 L, Hct 35.6 L, MCV 101.4 H, MCH 30.5, MCHC 30.1 L, RDW 16.6 H, RDW Differential 61.3 H, Plt Count 255, MPV 11.8, Immature Gran % (Auto) 0.100, Neut % (Auto) 79.3 H, Lymph % (Auto) 13.0 L, [place] % (Auto) 6.9, Eos % (Auto) 0.4, Baso % (Auto) 0.3, Absolute Neuts (auto) 8.7 H, Absolute Lymphs (auto) 1.42, Total Counted Not Reportable 12/14/17 05:05: Sodium 145, Potassium 4.1, Chloride 107, Carbon Dioxide 30.0, Anion Gap 8, BUN 36 H, Creatinine 0.66 L, Estim Creat Clear Calc 74.01, Est GFR (MDRD) Af Amer 155, Est GFR (MDRD) Non-Af 128, BUN/Creatinine Ratio 54.6 H, Glucose 384 H, Calcium 9.0 12/14/17 06:00: POC Glucose 394 H 12/14/17 12:39: POC Glucose 327 H Current Medications Acetaminophen (Tylenol Liquid) 650 mg GT Q4H PRN PRN PRN Reason: FEVER Al Hydroxide/Mg Hydroxide (Mylanta Ii) 30 ml GT Q6H PRN PRN PRN Reason: Gastric burning Albuterol Sulfate (Ventolin Aerosols) 2.5 mg INHALATION Q2H PRN PRN PRN Reason: SHORTNESS OF BREATH Albuterol/Ipratropium (Duoneb) 3 ml INHALATION Q6H.RT [facility] Last Admin: 12/14/17 13:01 Dose: 3 ml Amantadine HCl () 100 mg GT DAILY [facility] Last Admin: 12/14/17 11:04 Dose: 100 mg Amitriptyline HCl (Elavil) 100 mg GT QHS [facility] Last Admin: 12/13/17 22:00 Dose: 100 mg Amlodipine Besylate (Norvasc) 10 mg PO DAILY [facility] Last Admin: 12/14/17 11:00 Dose: 10 mg Aspirin (Aspirin, Baby) 81 mg GT DAILY@0800 [facility] Last Admin: 12/14/17 11:00 Dose: 81 mg Bisacodyl (Dulcolax) 5 mg PO DAILY PRN PRN PRN Reason: Constipation Budesonide (Pulmicort Aerosol) 0.5 mg INHALATION BID [facility] Last Admin: 12/13/17 19:02 Dose: 0.5 mg Cholecalciferol (Vitamin D) 5,000 unit GT DAILY [facility] Last Admin: 12/14/17 11:00 Dose: 5,000 unit Clopidogrel Bisulfate (Plavix) 75 mg GT DAILY [facility] Last Admin: 12/14/17 11:00 Dose: 75 mg Dextromethorphan HBr (Robitussin Pediatric, Benylin Pediatric) 30 mg PO TID [facility] Last Admin: 12/14/17 07:02 Dose: 30 mg Dextrose (D50w Syringe) 0 gm IV X1 PRN; Protocol PRN Reason: Hypoglycemia Enoxaparin Sodium (Lovenox) 40 mg SC DAILY@1000 [facility] Last Admin: 12/14/17 11:07 Dose: 40 mg Glucagon () 1 mg IM .X1 PRN PRN Reason: Hypoglycemia Heparin Sodium (Beef Lung) (Heparin 500 Unit/5 Ml (100/Ml)) 500 unit IV UD PRN PRN Reason: HEPARIN FLUSH Metronidazole (Flagyl) 500 mg in 100 mls @ 100 mls/hr IV Q8 [facility] Last Admin: 12/14/17 06:59 Dose: 100 mls/hr Vancomycin IV Pharmacy to Dose (1 ea/ Sodium Chloride) 500 mls @ 250 mls/hr IV PRN PRN PRN Reason: Protocol Vancomycin HCl 1,750 mg/ (Sodium Chloride) 535 mls @ 260 mls/hr IV Q12H [facility] Last Admin: 12/14/17 01:43 Dose: 260 mls/hr Lactose (Pivot 1.5 Luis) 1,000 mls @ 108 mls/hr GT .Q9H16M [facility] Last Admin: 12/14/17 07:04 Dose: 108 mls/hr Cefepime HCl 2 gm/ Sodium (Chloride) 100 mls @ 200 mls/hr IV Q12 [facility] Last Admin: 12/14/17 11:00 Dose: 200 mls/hr Insulin Glargine (Lantus (Bkc)) 10 units SC DAILY [facility] Last Admin: 12/14/17 11:07 Dose: 10 unit Insulin Glargine (Lantus (Bkc)) 15 units SC QHS [facility] Last Admin: 12/13/17 22:01 Dose: 15 u Insulin Human Lispro (Humalog Kwikpen (Bk)) 0 unit SQ Q6 BULL PRN Reason: Protocol Last Admin: 12/14/17 12:40 Dose: 3 units Lansoprazole (Prevacid) 30 mg PO BIDCM [facility] Last Admin: 12/14/17 11:04 Dose: 30 mg Lisinopril (Zestril) 20 mg GT DAILY [facility] Last Admin: 12/14/17 11:00 Dose: 20 mg Magnesium Hydroxide (Milk Of Magnesia) 30 ml PO DAILY PRN PRN Reason: Constipation Magnesium Oxide (Mag-Ox 400) 400 mg GT TIDCM [facility] Last Admin: 12/14/17 12:36 Dose: Not Given Metoprolol Tartrate (Lopressor (Beta Devante)) 150 mg GT TID [facility] Last Admin: 12/14/17 07:00 Dose: 150 mg Nicotine (Nicoderm Cq (Pbkc)) 14 mg TRANSDERM. DAILY [facility] Last Admin: 12/14/17 11:00 Dose: 14 mg Nitroglycerin (Nitrostat) 0.4 mg SUBLINGUAL PRN PRN PRN Reason: CARDIAC/CHEST PAIN Ondansetron HCl (Zofran) 4 mg IV Q8H PRN PRN PRN Reason: NAUSEA Pramipexole Dihydrochloride (Mirapex) 0.25 mg GT QHS [facility] Last Admin: 12/13/17 21:59 Dose: 0.25 mg Pravastatin Sodium (Pravachol) 80 mg PO QHS [facility] Last Admin: 12/13/17 22:00 Dose: 80 mg Sodium Chloride () 10 - 20 ml IV UD PRN PRN Reason: PICC FLUSH Last Admin: 12/14/17 07:04 Dose: 10 ml Tamsulosin HCl (Flomax) 0.4 mg PO QHS [facility] Last Admin: 12/13/17 21:58 Dose: 0.4 mg Tramadol HCl (Ultram) 50 mg GT TID PRN PRN Reason: PAIN Zolpidem Tartrate (Ambien (Generic)) 5 mg PO QHS PRN PRN PRN Reason: INSOMNIA Medical Necessity - Tobacco Use Smoking Status: Former smoker Assessment/Plan All Active Problems (Last Updated 10/13/17 @ 09:44 by Jeannie Zavala) Fall (Acute) Intraparenchymal hemorrhage of brain (Acute) Alcohol intoxication (Resolved) Acute respiratory failure (Acute) Acute kidney injury (Acute) Aspiration pneumonia (Acute) Acute and chronic respiratory failure with hypoxia (Acute) Encounter for long-term current use of high risk medication (Acute) Presence of coronary angioplasty implant and graft (Acute) FUO (fever of unknown origin) (Acute) Hypertensive emergency (Acute) Demand ischemia (Acute) Systolic CHF, acute (Acute) Acute respiratory failure with hypoxemia (Acute) Acute respiratory failure with hypoxia and hypercarbia (Resolved) Multifocal community-acquired pneumonia (Resolved) Severe sepsis (Resolved) 1. acute on chronic hypoxic resp failure improved secondary to pneumonia 2. presumed gram negative pneumonia cefepime and vanc pulm toilet 3. TBI after falling down stairs while intoxicated w ICH, SAH, SDH, IVH. right sided weakness 4. Dysphagia s/p PEG 5. DVT proph: SCDs, DC lovenox given TBI 6. CAD. ASA and metoprolol. Code Visit Inpatient E&M: 10514 Subs Hosp L2
--- NOTE | 2017-12-14 13:37 | PN_ITS ---
Patient Problems: Active and Suspected Problems (Last Updated 10/13/17 @ 09:44 by Jeannie Zavala) Acute and chronic respiratory failure with hypoxia (Acute) Subjective: breathing better. +productive cough. Vitals/I&O's: Vital Signs Temp Pulse Resp BP Pulse Ox 36.9 C 100 18 135/68 H 96 12/14/17 11:00 12/14/17 11:00 12/14/17 11:00 12/14/17 11:00 12/14/17 11:00 Oxygen Flow Rate (L/min) 2 Oxygen Delivery Method CPAP Weight: 111.9 kg Body Mass Index (BMI) 35.3 Intake and Output for Last 24 Hours 12/12/17 12/13/17 12/14/17 23:59 23:59 23:59 Intake Total 1868 3133 / 3133 Balance 1868 3133 / 3133 General: Alert, No apparent distress, - - on CPAP. no resp distress. hypophonic voice. HEENT: Atraumatic, Normocephalic Neck: No Nodes, Thyroid Normal Size and Texture Lungs: No rhonchi, No wheeze, Diminished Cardiovascular: Regular rate, Regular Rhythm, Normal S1, Normal S2 Abdomen: Bowel Sounds Present, Soft, Non Tender, Non-Distended Extremities: No edema, No Calf Tenderness Musculoskeletal: No Tenderness to Palpation of Joints or Extremities, No Muscle Wasting Psych/Mental Status: Normal Affect, Appropriate Laboratory Results 12/13/17 15:24: Lactic Acid 2.5 H 12/13/17 18:00: MRSA (PCR) Negative 12/13/17 18:17: POC Glucose 277 H 12/13/17 21:58: POC Glucose 271 H 12/14/17 00:05: POC Glucose 368 H 12/14/17 05:05: WBC 11.0, RBC 3.51 L, Hgb 10.7 L, Hct 35.6 L, MCV 101.4 H, MCH 30.5, MCHC 30.1 L, RDW 16.6 H, RDW Differential 61.3 H, Plt Count 255, MPV 11.8 , Immature Gran % (Auto) 0.100, Neut % (Auto) 79.3 H, Lymph % (Auto) 13.0 L, [place] % (Auto) 6.9, Eos % (Auto) 0.4, Baso % (Auto) 0.3, Absolute Neuts (auto) 8.7 H, Absolute Lymphs (auto) 1.42, Total Counted Not Reportable 12/14/17 05:05: Sodium 145, Potassium 4.1, Chloride 107, Carbon Dioxide 30.0, Anion Gap 8, BUN 36 H, Creatinine 0.66 L, Estim Creat Clear Calc 74.01, Est GFR (MDRD) Af Amer 155, Est GFR (MDRD) Non-Af 128, BUN/Creatinine Ratio 54.6 H, Glucose 384 H, Calcium 9.0 12/14/17 06:00: POC Glucose 394 H 12/14/17 12:39: POC Glucose 327 H Current Medications Acetaminophen (Tylenol Liquid) 650 mg GT Q4H PRN PRN PRN Reason: FEVER Al Hydroxide/Mg Hydroxide (Mylanta Ii) 30 ml GT Q6H PRN PRN PRN Reason: Gastric burning Albuterol Sulfate (Ventolin Aerosols) 2.5 mg INHALATION Q2H PRN PRN PRN Reason: SHORTNESS OF BREATH Albuterol/Ipratropium (Duoneb) 3 ml INHALATION Q6H.RT [facility] Last Admin: 12/14/17 13:01 Dose: 3 ml Amantadine HCl () 100 mg GT DAILY [facility] Last Admin: 12/14/17 11:04 Dose: 100 mg Amitriptyline HCl (Elavil) 100 mg GT QHS [facility] Last Admin: 12/13/17 22:00 Dose: 100 mg Amlodipine Besylate (Norvasc) 10 mg PO DAILY [facility] Last Admin: 12/14/17 11:00 Dose: 10 mg Aspirin (Aspirin, Baby) 81 mg GT DAILY@0800 [facility] Last Admin: 12/14/17 11:00 Dose: 81 mg Bisacodyl (Dulcolax) 5 mg PO DAILY PRN PRN PRN Reason: Constipation Budesonide (Pulmicort Aerosol) 0.5 mg INHALATION BID [facility] Last Admin: 12/13/17 19:02 Dose: 0.5 mg Cholecalciferol (Vitamin D) 5,000 unit GT DAILY [facility] Last Admin: 12/14/17 11:00 Dose: 5,000 unit Clopidogrel Bisulfate (Plavix) 75 mg GT DAILY [facility] Last Admin: 12/14/17 11:00 Dose: 75 mg Dextromethorphan HBr (Robitussin Pediatric, Benylin Pediatric) 30 mg PO TID [facility] Last Admin: 12/14/17 07:02 Dose: 30 mg Dextrose (D50w Syringe) 0 gm IV X1 PRN; Protocol PRN Reason: Hypoglycemia Enoxaparin Sodium (Lovenox) 40 mg SC DAILY@1000 [facility] Last Admin: 12/14/17 11:07 Dose: 40 mg Glucagon () 1 mg IM .X1 PRN PRN Reason: Hypoglycemia Heparin Sodium (Beef Lung) (Heparin 500 Unit/5 Ml (100/Ml)) 500 unit IV UD PRN PRN Reason: HEPARIN FLUSH Metronidazole (Flagyl) 500 mg in 100 mls @ 100 mls/hr IV Q8 [facility] Last Admin: 12/14/17 06:59 Dose: 100 mls/hr Vancomycin IV Pharmacy to Dose (1 ea/ Sodium Chloride) 500 mls @ 250 mls/hr IV PRN PRN PRN Reason: Protocol Vancomycin HCl 1,750 mg/ (Sodium Chloride) 535 mls @ 260 mls/hr IV Q12H [facility] Last Admin: 12/14/17 01:43 Dose: 260 mls/hr Lactose (Pivot 1.5 Luis) 1,000 mls @ 108 mls/hr GT .Q9H16M [facility] Last Admin: 12/14/17 07:04 Dose: 108 mls/hr Cefepime HCl 2 gm/ Sodium (Chloride) 100 mls @ 200 mls/hr IV Q12 [facility] Last Admin: 12/14/17 11:00 Dose: 200 mls/hr Insulin Glargine (Lantus (Bkc)) 10 units SC DAILY [facility] Last Admin: 12/14/17 11:07 Dose: 10 unit Insulin Glargine (Lantus (Bkc)) 15 units SC QHS [facility] Last Admin: 12/13/17 22:01 Dose: 15 u Insulin Human Lispro (Humalog Kwikpen (Bk)) 0 unit SQ Q6 BULL PRN Reason: Protocol Last Admin: 12/14/17 12:40 Dose: 3 units Lansoprazole (Prevacid) 30 mg PO BIDCM [facility] Last Admin: 12/14/17 11:04 Dose: 30 mg Lisinopril (Zestril) 20 mg GT DAILY [facility] Last Admin: 12/14/17 11:00 Dose: 20 mg Magnesium Hydroxide (Milk Of Magnesia) 30 ml PO DAILY PRN PRN Reason: Constipation Magnesium Oxide (Mag-Ox 400) 400 mg GT TIDCM [facility] Last Admin: 12/14/17 12:36 Dose: Not Given Metoprolol Tartrate (Lopressor (Beta Devante)) 150 mg GT TID [facility] Last Admin: 12/14/17 07:00 Dose: 150 mg Nicotine (Nicoderm Cq (Pbkc)) 14 mg TRANSDERM. DAILY [facility] Last Admin: 12/14/17 11:00 Dose: 14 mg Nitroglycerin (Nitrostat) 0.4 mg SUBLINGUAL PRN PRN PRN Reason: CARDIAC/CHEST PAIN Ondansetron HCl (Zofran) 4 mg IV Q8H PRN PRN PRN Reason: NAUSEA Pramipexole Dihydrochloride (Mirapex) 0.25 mg GT QHS [facility] Last Admin: 12/13/17 21:59 Dose: 0.25 mg Pravastatin Sodium (Pravachol) 80 mg PO QHS [facility] Last Admin: 12/13/17 22:00 Dose: 80 mg Sodium Chloride () 10 - 20 ml IV UD PRN PRN Reason: PICC FLUSH Last Admin: 12/14/17 07:04 Dose: 10 ml Tamsulosin HCl (Flomax) 0.4 mg PO QHS [facility] Last Admin: 12/13/17 21:58 Dose: 0.4 mg Tramadol HCl (Ultram) 50 mg GT TID PRN PRN Reason: PAIN Zolpidem Tartrate (Ambien (Generic)) 5 mg PO QHS PRN PRN PRN Reason: INSOMNIA Medical Necessity - Tobacco Use Smoking Status: Former smoker Assessment/Plan All Active Problems (Last Updated 10/13/17 @ 09:44 by Jeannie Zavala) Fall (Acute) Intraparenchymal hemorrhage of brain (Acute) Alcohol intoxication (Resolved) Acute respiratory failure (Acute) Acute kidney injury (Acute) Aspiration pneumonia (Acute) Acute and chronic respiratory failure with hypoxia (Acute) Encounter for long-term current use of high risk medication (Acute) Presence of coronary angioplasty implant and graft (Acute) FUO (fever of unknown origin) (Acute) Hypertensive emergency (Acute) Demand ischemia (Acute) Systolic CHF, acute (Acute) Acute respiratory failure with hypoxemia (Acute) Acute respiratory failure with hypoxia and hypercarbia (Resolved) Multifocal community-acquired pneumonia (Resolved) Severe sepsis (Resolved) 1. acute on chronic hypoxic resp failure * improved * secondary to pneumonia 2. presumed gram negative pneumonia * cefepime and vanc * pulm toilet 3. 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 * right sided weakness 4. Dysphagia * s/p PEG 5. DVT proph: SCDs, DC lovenox given TBI 6. CAD. ASA and metoprolol. Code Visit Inpatient E&M: 82440 Subs Hosp L2
--- NOTE | 2017-12-14 14:12 | PCM.CONS.GEN ---
Problem List (1) Acute and chronic respiratory failure with hypoxia Status: Acute (2) COPD (chronic obstructive pulmonary disease) Status: Chronic (3) Traumatic brain injury Status: Chronic Qualifiers: Encounter type: sequela Loss of consciousness presence/duration: with LOC of unspecified duration Qualified Code(s): S06.9X9S - Unspecified intracranial injury with loss of consciousness of unspecified duration, sequela (4) Intraparenchymal hemorrhage of brain Status: Chronic (5) Subarachnoid hemorrhage Status: Chronic (6) Subdural hematoma Status: Chronic (7) Dysphagia Status: Chronic (8) Aspiration pneumonia Status: Acute (9) Diabetes mellitus Status: Chronic Qualifiers: Diabetes mellitus type: type 2 Diabetes mellitus assisted insulin use: with assisted use Diabetes mellitus complication status: with unspecified complications Qualified Code(s): E11.8 - Type 2 diabetes mellitus with unspecified complications; 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 (10) Depression Status: Chronic (11) GERD (gastroesophageal reflux disease) Status: Chronic Qualifiers: Esophagitis presence: esophagitis presence not specified Qualified Code(s): K21.9 - Gastro-esophageal reflux disease without esophagitis (12) BPH (benign prostatic hyperplasia) Status: Chronic (13) Obstructive sleep apnea Status: Chronic (14) Presence of aortocoronary bypass graft Status: Chronic Comment: CABG X 3 2001 ?, Radial artery -LAD, SVG-RCA, SVG-OM2 (15) Ischemic cardiomyopathy Status: Chronic (16) FUO (fever of unknown origin) Status: Acute (17) Restless leg syndrome Status: Chronic (18) Hyperlipidemia Status: Chronic Qualifiers: (19) Hypertension Status: Chronic Qualifiers: (20) Morbid obesity Status: Chronic (21) CAD (coronary artery disease) Status: Chronic Reason for Consult Date of Consultation: 12/14/17 Reason for Consultation: respiratory failure History of Present Illness: The patient is a 67 year old M with a complicated past medical history as below, presented to the ED from the TCU with increasing dyspnea. Patient is confused at baseline and is verbal and will answer yes/no questions at times. According to his [id number], who is a nurse at the hospital, he is able to carry on conversations which is new for him since being at [facility]. He does have residual right-sided weakness from intraparenchymal, subdural, and subarachnoid hemorrhages status post traumatic brain injury from fall. He was hospitalized for an extensive period of time at [facility]. He has been on the transitional care unit since December 04. Review of systems and most of HPI obtained from patient's gtoinjoe-qe-egn, as he was lethargic at the time of interview. She does state he had some fevers, increased cough, shortness of breath, and hypoxia in TCU. His pulse ox was 78% on his baseline requirement of 2 L. Prior to events and stay at [facility], the patient did not require any home oxygen therapy. He does have a CPAP unit that he is compliant with 14 cm of H20. His baseline inhaler therapy includes Pulmicort and ipratropium. He does not use albuterol anymore. He does have a significant smoking history of 2 packs a day for 50 years. He has not smoked since his traumatic fall. He has never followed with pulmonology in the past. 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 The patient has self-reported COPD, known pulmonary function tests to clarify. Plain film chest x-ray showed no acute pathology. CTA of the chest demonstrated no evidence of central pulmonary thromboemboli, but suboptimal contrast opacification of the peripheral pulmonary arteries. No evidence of aneurysm or dissection. Minimal subsegmental atelectasis in the posterior lung bases, and acute fracture of the right scapula which was reportedly a result of his fall several weeks ago. Initial vitals BP 155/81, pulse 117, RR 28, 99.8?F, and 100% on nonrebreather. Initial labs showed leukocytosis of 14,800, hemoglobin 12.5, neutrophil 81.3% lymphocytes 12.2%. Chemistry remarkable for a BUN of 33 and creatinine 0.77. Glucose elevated to 70. Lactate also elevated at 2.5. BNP mildly elevated at 125. ALT 80. Urinalysis positive for glucose and 10 occult. Nitrates were negative and rare bacteria present. MRSA PCR was negative. Urine strep/Legionella antigens were negative. Blood cultures were obtained and are pending. The patient was given broad-spectrum antibiotics and IV fluids and was transferred to the progressive care unit for further evaluation and management. Patient has been maintained on 2 L of oxygen and CPAP. His LOC fluctuates by family reporting he is holding conversations and joking around. He does have residual right-sided weakness. Past Medical History Past Medical History (Chronic Problems): Chronic Problems (Last Reviewed 10/16/17 @ 09:47 by Adele Bueno) Traumatic brain injury (Chronic) Intraparenchymal hemorrhage of brain (Chronic) Subarachnoid hemorrhage (Chronic) Subdural hematoma (Chronic) Intraventricular hemorrhage (Chronic) Right scapula fracture (Chronic) Tobacco abuse (Chronic) Sleep apnea (Chronic) Acute kidney injury (Chronic) Dysphagia (Chronic) Diabetes mellitus (Chronic) Insomnia (Chronic) Vitamin D deficiency (Chronic) Depression (Chronic) GERD (gastroesophageal reflux disease) (Chronic) BPH (benign prostatic hyperplasia) (Chronic) Obstructive sleep apnea (Chronic) 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) S/P CABG x3 with right radial to LAD, SVG to RCA, and SVG to OM 2; stenting to LAD in February 2017; Presence of aortocoronary bypass graft (Chronic) CABG X 3 2001 ?, Radial artery -LAD, SVG-RCA, SVG-OM2 Non-ST elevation myocardial infarction (NSTEMI), initial care episode (Chronic) 02/16/17 Ischemic cardiomyopathy (Chronic) Restless leg syndrome (Chronic) Hyperlipidemia (Chronic) COPD (chronic obstructive pulmonary disease) (Chronic) Hypertension (Chronic) Morbid obesity (Chronic) CAD (coronary artery disease) (Chronic) Stented coronary artery (Chronic) [facility] w/[id number] LAD (grafts occluded X 3) 02/20/17 Former smoker (Chronic) quit February 2017 Diabetes mellitus type 2 in obese (Chronic) Hx of CABG (Chronic) CABG X3 rADIAL ARTERY-lad, svg-rca, svg-om2. MULTIPLE CORONARY STENTS Medical History: Medical History (Last Updated 12/14/17 @ 15:23 by Jocelyn Machuca, KELLY-C) Encounter for long-term current use of high risk medication (Acute) Z79.899 Obstructive sleep apnea (Chronic) G47.33 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) I25.810 S/P CABG x3 with right radial to LAD, SVG to RCA, and SVG to OM 2; stenting to LAD in February 2017; Non-ST elevation myocardial infarction (NSTEMI), initial care episode (Chronic) I21.4 02/16/17 Ischemic cardiomyopathy (Chronic) I25.5 FUO (fever of unknown origin) (Acute) Restless leg syndrome (Chronic) Hyperlipidemia (Chronic) E78.5 Hypertensive emergency (Acute) I16.1 Demand ischemia (Acute) I24.8 COPD (chronic obstructive pulmonary disease) (Chronic) J44.9 Hypertension (Chronic) I10 Morbid obesity (Chronic) E66.01 Systolic CHF, acute (Acute) I50.21 CAD (coronary artery disease) (Chronic) I25.10 Stented coronary artery (Chronic) [facility] w/EHR-VUL-Fmcq LAD (grafts occluded X 3) 02/20/17 Former smoker (Chronic) Z87.891 quit February 2017 Acute respiratory failure with hypoxemia (Acute) J96.01 Diabetes mellitus type 2 in obese (Chronic) E11.69, E66.9 Nicotine dependence F17.200 Allergies atorvastatin Allergy (Verified 10/16/17 09:47) Hives cilostazol Allergy (Verified 10/16/17 09:47) Hives colestipol Allergy (Verified 10/16/17 09:47) Hives diltiazem Allergy (Verified 10/16/17 09:47) Hives gemfibrozil Allergy (Verified 10/16/17 09:47) Hives naproxen [From Naprosyn] Allergy (Verified 10/16/17 09:47) Hives niacin Allergy (Verified 10/16/17 09:47) Hives Penicillins Allergy (Verified 10/16/17 09:47) Hives pravastatin Allergy (Verified 10/16/17 09:47) Hives procaine [From Novocain] Allergy (Verified 10/16/17 09:47) Hives rosuvastatin Allergy (Verified 10/16/17 09:47) Hives simvastatin Allergy (Verified 10/16/17 09:47) Hives isosorbide Adverse Reaction (Severe, Verified 10/16/17 09:47) Unknown Home Medications: Ambulatory Orders Medication Instructions Recorded Amitriptyline HCl 100 mg GT QHS 02/16/17 Cholecalciferol (Vitamin D3) 5,000 unit GT DAILY 02/16/17 [Vitamin D3] Duloxetine HCl 60 mg GT DAILY 02/16/17 Lactase 1 tab GT TIDCM 02/16/17 Lansoprazole [Prevacid] 30 mg GT BIDCM 02/16/17 Nitroglycerin 0.4 mg SL PRN PRN 02/16/17 Ropinirole HCl [Requip] 0.5 mg GT QHS 02/16/17 Tamsulosin HCl [Flomax] 0.4 mg GT QHS 02/16/17 traMADol [Ultram] 50 mg GT TID PRN 02/16/17 Nicotine [Nicoderm] 14 mg TRANSDERM. DAILY 03/30/17 lisinopril 20 mg tablet 20 mg GT QDAY 05/20/17 glyburide 5 mg tablet 5 mg GT DAILY@1800 10/13/17 Acetaminophen 650 mg GT 4X/DAY PRN 12/04/17 Acetylcysteine 200 mg MC Q4H 12/04/17 Albuterol Inhaler [Ventolin Hfa 1 - 2 puff INHALATION 4X/DAY PRN 12/04/17 (SP)] PRN Amantadine Liquid 100 mg GT DAILY 12/04/17 Aspirin [Aspirin, Baby] 81 mg GT DAILY@0800 12/04/17 Budesonide Aerosol [Pulmicort 0.5 mg INHALATION BID 12/04/17 Aerosol] Cefepime HCl [Maxipime] 2 gm IV Q12 12/04/17 Clopidogrel Bisulfate [Plavix] 75 mg GT DAILY 12/04/17 Furosemide [Lasix] 40 mg GT BID 12/04/17 Guaifenesin [Mucinex] 600 mg PO BID 12/04/17 Insulin Glargine,Hum.rec.anlog 10 unit SQ DAILY@0600 12/04/17 [Lantus] Insulin Glargine,Hum.rec.anlog 15 unit SQ QHS 12/04/17 [Lantus] Ipratropium [Atrovent Aerosols] 0.5 mg INHALATION Q6H.RT 12/04/17 Isosorbide Mononitrate [Imdur] 60 mg GT BID 12/04/17 Magnesium Oxide [Mag-Ox 400] 400 mg GT TIDCM 12/04/17 Metoprolol Tartrate [Lopressor 75 mg GT TID 12/04/17 (beta stepan)] Metronidazole [Flagyl] 500 mg IV Q8H 12/04/17 Potassium Chloride [K-Dur] 20 meq GT DAILY@0800 12/04/17 Pravastatin [Pravachol] 80 mg PO QHS 12/04/17 ranitidine 150 mg capsule 150 mg GT QHS 12/04/17 Surgical History: Surgical History (Last Reviewed 10/16/17 @ 09:47 by Adele Bueno) Presence of coronary angioplasty implant and graft (Acute) Z95.5 Presence of aortocoronary bypass graft (Chronic) Z95.1 CABG X 3 2002 ?, Radial artery -LAD, SVG-RCA, SVG-OM2 Hx of CABG (Chronic) CABG X3 rADIAL ARTERY-lad, svg-rca, svg-om2. MULTIPLE CORONARY STENTS Surgical History: angioplasty, coronary bypass surgery, - - PEG tube. Psychiatric History: Depression Lives: Spouse/ Significant Other Smoking Status: Former smoker Tobacco Use: Cigarettes Alcohol: Heavy - No alcohol since traumatic brain injury Drugs: None - *Family History Maternal Family History: Family History (Last Updated 10/16/17 @ 09:48 by Adele Bueno) Brother Heart disease Father Heart disease History Items: No pertinent history, - - Alzheimer Paternal Family History: Family History (Last Updated 10/16/17 @ 09:48 by Aedle Bueno) Brother Heart disease Father Heart disease History Items: No pertinent history Review of Systems Unable to obtain accurate/complete ROS d/t: Lethargy Patient Problems: Active and Suspected Problems (Last Updated 12/14/17 @ 15:23 by Jocelyn Machuca NP-C) Acute and chronic respiratory failure with hypoxia (Acute) Subjective: Patient was seen and examined. He is wearing his CPAP and oxygenating appropriately. Otherwise, he has been weaned to 2 L per nasal cannula. He is intermittently tachycardic but remains afebrile. Blood pressure is stable. Objective: Clinical Impression(s) from Imaging Studies Chest X-Ray 12/13/17 10:56 IMPRESSION: 1. No acute cardiopulmonary pathology. 2. No interval changes when compared to 12/11/2017. Electronically Signed: Cristofer Vann MD at 11:12 EDT , Service support , Chest CTA 12/13/17 11:20 IMPRESSION: 1. No CTA evidence of central pulmonary thromboemboli but suboptimal contrast opacification of the peripheral pulmonary arteries. Peripheral pulmonary thromboemboli cannot be excluded. Ventilation/perfusion lung scan may be helpful for further evaluation. 2. No CTA evidence of thoracic aortic aneurysm or thoracic aortic dissection. 3. Minimal subsegmental atelectases in the posterior lung bases. 4. Acute fracture comminution of the right scapula. Electronically Signed: Cristofer Vann MD at 12:30 EDT , Service support , - Physical Exam General: No apparent distress, Lethargic HEENT: Atraumatic, PERRLA, Normocephalic Oral: No Gingival or Mucosal Lesions/ Ulcerations, Dry Mucosa Neck: Supple, No Nodes, Trachea Midline Lungs: No rhonchi, No wheeze, Diminished, - - Bibasilar posterior rales. Symmetric expansion, no dullness to percussion. No tachypnea or accessory muscle use. Cardiovascular: Regular rate, Regular Rhythm, Normal S1, Normal S2, No murmurs, No rub noted, No Gallop Abdomen: Bowel Sounds Present, Soft, Non Tender, Obese, - - PEG tube site left upper quadrant intact, no erythema or drainage Extremities: No cyanosis, No edema, Capillary Refill Less than 3 Seconds, Clubbing, Peripheral Pulses Normal Skin: No rashes, No breakdown Musculoskeletal: No Tenderness to Palpation of Joints or Extremities Lymphatic: No Cervical, Supraclavicular, or Inguinal Adenopathy Neurological: - - Decreased LOC, awakens to voice. Moving left extremities, right upper extremity with minimal movement. Psych/Mental Status: - - Lethargic. Mumbling Vital Signs Temp Pulse Resp BP Pulse Ox 98.5 F 99 20 H 135/68 H 96 12/14/17 11:00 12/14/17 13:01 12/14/17 13:01 12/14/17 11:00 12/14/17 11:00 Oxygen Flow Rate (L/min) 2 Oxygen Delivery Method CPAP Weight: 246 lb 11.156 oz Body Mass Index (BMI) 35.3 Intake and Output for Last 24 Hours 12/12/17 12/13/17 12/14/17 23:59 23:59 23:59 Intake Total 1868 / 1868 3133 / 3133 Balance 1868 / 1868 3133 / 3133 Laboratory Tests Past 24 Hrs 12/13/17 12/13/17 12/14/17 15:24 18:00 05:05 WBC 11.0 RBC 3.51 L Hgb 10.7 L Hct 35.6 L MCV 101.4 H MCH 30.5 MCHC 30.1 L RDW 16.6 H RDW Differential 61.3 H Plt Count 255 MPV 11.8 Immature Gran % (Auto) 0.100 Neut % (Auto) 79.3 H Lymph % (Auto) 13.0 L [place] % (Auto) 6.9 Eos % (Auto) 0.4 Baso % (Auto) 0.3 Absolute Neuts (auto) 8.7 H Absolute Lymphs (auto) 1.42 Total Counted Not Reportable Sodium Potassium Chloride Carbon Dioxide Anion Gap BUN Creatinine Estim Creat Clear Calc Est GFR (MDRD) Af Amer Est GFR (MDRD) Non-Af BUN/Creatinine Ratio Glucose Lactic Acid 2.5 H Calcium MRSA (PCR) Negative 12/14/17 05:05 WBC RBC Hgb Hct MCV MCH MCHC RDW RDW Differential Plt Count MPV Immature Gran % (Auto) Neut % (Auto) Lymph % (Auto) [place] % (Auto) Eos % (Auto) Baso % (Auto) Absolute Neuts (auto) Absolute Lymphs (auto) Total Counted Sodium 145 Potassium 4.1 Chloride 107 Carbon Dioxide 30.0 Anion Gap 8 BUN 36 H Creatinine 0.66 L Estim Creat Clear Calc 74.01 Est GFR (MDRD) Af Amer 155 Est GFR (MDRD) Non-Af 128 BUN/Creatinine Ratio 54.6 H Glucose 384 H Lactic Acid Calcium 9.0 MRSA (PCR) POC Glucose 12/14/17 12/14/17 12/14/17 12:39 06:00 00:05 POC Glucose 327 H 394 H 368 H 12/13/17 12/13/17 21:58 18:17 POC Glucose 271 H 277 H Assessment/Plan All Active Problems (Last Updated 12/14/17 @ 15:23 by Jocelyn Machuca, KELLY-C) Fall (Acute) Alcohol intoxication (Resolved) Acute respiratory failure (Acute) Aspiration pneumonia (Acute) Acute and chronic respiratory failure with hypoxia (Acute) Encounter for long-term current use of high risk medication (Acute) Presence of coronary angioplasty implant and graft (Acute) FUO (fever of unknown origin) (Acute) Hypertensive emergency (Acute) Demand ischemia (Acute) Systolic CHF, acute (Acute) Acute respiratory failure with hypoxemia (Acute) Acute respiratory failure with hypoxia and hypercarbia (Resolved) Multifocal community-acquired pneumonia (Resolved) Severe sepsis (Resolved) RECOMMENDATIONS 1. Wean oxygen supplementation to keep saturations 88% or above 2. Encourage incentive spirometer/Acapella 3. Continue PT/OT 4. Continue bronchodilators and Pulmicort 5. Continue broad-spectrum antibiotics pending infectious workup 6. If patient unable to perform IS/CPT, can try vest therapy 7. Maintain strict aspiration precautions 8. Consult speech therapy, known to them 9. PEG tube management per hospitalist 10. Obtain sputum culture 11. Likely okay to discontinue nicotine therapy 12. Avoid sedating medications IMPRESSIONS 1. Acute on chronic hypoxic respiratory failure Likely secondary to recurrent aspiration pneumonia. Patient has been weaned to 2 L while on TCU, had abrupt decline in respiratory status. Chest x-ray relatively unremarkable, CT of the chest does have evidence of right upper lobe consolidation, reviewed with Dr. Swain. No evidence of PE but suboptimal contrast. The patient is on broad-spectrum antibiotics, continue pending infectious workup. Unclear why he is on Flagyl. Patient does have a PICC line that appears intact without any evidence of infection. MRSA nasal was negative. Encourage incentive spirometer/Acapella, can transition to vest therapy if patient remains lethargic or too weak to perform pulmonary toileting. He is hemodynamically stable. He did tolerate vest therapy well at [facility] per [id number]-vb-jef, Lary. 2. Dysphagia Chronic, has PEG tube with nutritional supplement. Consult speech for ongoing therapy. Consult nutrition for recommendations of tube feeds, patient does have elevated blood sugars. 3. History of tobacco abuse and self-reported COPD Patient has not smoked several months, would likely be okay to discontinue his nicotine patch. No pulmonary function tests available. 4. HTN/morbid obesity/CHF/type 2 diabetes/history of CABG/BPH/GERD/depression/JIM/subarachnoid, subdural, and intraparenchymal hemorrhage/TBI Complicates care, management, recovery, and prognosis. Continue home medications via PEG tube as indicated.
--- NOTE | 2017-12-14 14:23 | CON.PCM_ITS ---
Problem List (1) Acute and chronic respiratory failure with hypoxia Status: Acute (2) COPD (chronic obstructive pulmonary disease) Status: Chronic (3) Traumatic brain injury Status: Chronic Qualifiers: Encounter type: sequela Loss of consciousness presence/duration: with LOC of unspecified duration Qualified Code(s): S06.9X9S - Unspecified intracranial injury with loss of consciousness of unspecified duration, sequela (4) Intraparenchymal hemorrhage of brain Status: Chronic (5) Subarachnoid hemorrhage Status: Chronic (6) Subdural hematoma Status: Chronic (7) Dysphagia Status: Chronic (8) Aspiration pneumonia Status: Acute (9) Diabetes mellitus Status: Chronic Qualifiers: Diabetes mellitus type: type 2 Diabetes mellitus mcc insulin use: with mcc use Diabetes mellitus complication status: with unspecified complications Qualified Code(s): E11.8 - Type 2 diabetes mellitus with unspecified complications; 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 (10) Depression Status: Chronic (11) GERD (gastroesophageal reflux disease) Status: Chronic Qualifiers: Esophagitis presence: esophagitis presence not specified Qualified Code(s) : K21.9 - Gastro-esophageal reflux disease without esophagitis (12) BPH (benign prostatic hyperplasia) Status: Chronic (13) Obstructive sleep apnea Status: Chronic (14) Presence of aortocoronary bypass graft Status: Chronic Comment: CABG X 3 2001 ?, Radial artery -LAD, SVG-RCA, SVG- OM2 (15) Ischemic cardiomyopathy Status: Chronic (16) FUO (fever of unknown origin) Status: Acute (17) Restless leg syndrome Status: Chronic (18) Hyperlipidemia Status: Chronic Qualifiers: (19) Hypertension Status: Chronic Qualifiers: (20) Morbid obesity Status: Chronic (21) CAD (coronary artery disease) Status: Chronic Reason for Consult Date of Consultation: 12/14/17 Reason for Consultation: respiratory failure History of Present Illness: The patient is a 67 year old M with a complicated past medical history as below , presented to the ED from the TCU with increasing dyspnea. Patient is confused at baseline and is verbal and will answer yes/no questions at times. According to his atswmcgh-oh-fqa, who is a nurse at the hospital, he is able to carry on conversations which is new for him since being at [facility]. He does have residual right-sided weakness from intraparenchymal, subdural, and subarachnoid hemorrhages status post traumatic brain injury from fall. He was hospitalized for an extensive period of time at [facility]. He has been on the transitional care unit since December 04. Review of systems and most of HPI obtained from patient's dybmptaf-qa-jpm, as he was lethargic at the time of interview. She does state he had some fevers, increased cough, shortness of breath, and hypoxia in TCU. His pulse ox was 78% on his baseline requirement of 2 L. Prior to events and stay at [facility], the patient did not require any home oxygen therapy. He does have a CPAP unit that he is compliant with 14 cm of H20. His baseline inhaler therapy includes Pulmicort and ipratropium. He does not use albuterol anymore. He does have a significant smoking history of 2 packs a day for 50 years. He has not smoked since his traumatic fall. He has never followed with pulmonology in the past. 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 The patient has self-reported COPD, known pulmonary function tests to clarify. Plain film chest x-ray showed no acute pathology. CTA of the chest demonstrated no evidence of central pulmonary thromboemboli, but suboptimal contrast opacification of the peripheral pulmonary arteries. No evidence of aneurysm or dissection. Minimal subsegmental atelectasis in the posterior lung bases, and acute fracture of the right scapula which was reportedly a result of his fall several weeks ago. Initial vitals BP 155/81, pulse 117, RR 28, 99.8?F , and 100% on nonrebreather. Initial labs showed leukocytosis of 14,800, hemoglobin 12.5, neutrophil 81.3% lymphocytes 12.2%. Chemistry remarkable for a BUN of 33 and creatinine 0.77. Glucose elevated to 70. Lactate also elevated at 2.5. BNP mildly elevated at 125. ALT 80. Urinalysis positive for glucose and 10 occult. Nitrates were negative and rare bacteria present. MRSA PCR was negative. Urine strep/Legionella antigens were negative. Blood cultures were obtained and are pending. The patient was given broad-spectrum antibiotics and IV fluids and was transferred to the progressive care unit for further evaluation and management. Patient has been maintained on 2 L of oxygen and CPAP. His LOC fluctuates by family reporting he is holding conversations and joking around. He does have residual right-sided weakness. Past Medical History Past Medical History (Chronic Problems): Chronic Problems (Last Reviewed 10/16/17 @ 09:47 by Adele Bueno) Traumatic brain injury (Chronic) Intraparenchymal hemorrhage of brain (Chronic) Subarachnoid hemorrhage (Chronic) Subdural hematoma (Chronic) Intraventricular hemorrhage (Chronic) Right scapula fracture (Chronic) Tobacco abuse (Chronic) Sleep apnea (Chronic) Acute kidney injury (Chronic) Dysphagia (Chronic) Diabetes mellitus (Chronic) Insomnia (Chronic) Vitamin D deficiency (Chronic) Depression (Chronic) GERD (gastroesophageal reflux disease) (Chronic) BPH (benign prostatic hyperplasia) (Chronic) Obstructive sleep apnea (Chronic) 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) S/P CABG x3 with right radial to LAD, SVG to RCA, and SVG to OM 2; stenting to LAD in February 2017; Presence of aortocoronary bypass graft (Chronic) CABG X 3 2001 ?, Radial artery -LAD, SVG-RCA, SVG-OM2 Non-ST elevation myocardial infarction (NSTEMI), initial care episode (Chronic) 02/16/17 Ischemic cardiomyopathy (Chronic) Restless leg syndrome (Chronic) Hyperlipidemia (Chronic) COPD (chronic obstructive pulmonary disease) (Chronic) Hypertension (Chronic) Morbid obesity (Chronic) CAD (coronary artery disease) (Chronic) Stented coronary artery (Chronic) [facility] w/[id number] LAD (grafts occluded X 3) 02/20/17 Former smoker (Chronic) quit February 2017 Diabetes mellitus type 2 in obese (Chronic) Hx of CABG (Chronic) CABG X3 rADIAL ARTERY-lad, svg-rca, svg-om2. MULTIPLE CORONARY STENTS Medical History: Medical History (Last Updated 12/14/17 @ 15:23 by Jocelyn Machuca, KELLY-C) Encounter for long-term current use of high risk medication (Acute) Z79.899 Obstructive sleep apnea (Chronic) G47.33 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) I25.810 S/P CABG x3 with right radial to LAD, SVG to RCA, and SVG to OM 2; stenting to LAD in February 2017; Non-ST elevation myocardial infarction (NSTEMI), initial care episode (Chronic) I21.4 02/16/17 Ischemic cardiomyopathy (Chronic) I25.5 FUO (fever of unknown origin) (Acute) Restless leg syndrome (Chronic) Hyperlipidemia (Chronic) E78.5 Hypertensive emergency (Acute) I16.1 Demand ischemia (Acute) I24.8 COPD (chronic obstructive pulmonary disease) (Chronic) J44.9 Hypertension (Chronic) I10 Morbid obesity (Chronic) E66.01 Systolic CHF, acute (Acute) I50.21 CAD (coronary artery disease) (Chronic) I25.10 Stented coronary artery (Chronic) [facility] w/[id number]-[id number]-Gwav LAD (grafts occluded X 3) 02/20/17 Former smoker (Chronic) Z87.891 quit February 2017 Acute respiratory failure with hypoxemia (Acute) J96.01 Diabetes mellitus type 2 in obese (Chronic) E11.69, E66.9 Nicotine dependence F17.200 Allergies atorvastatin Allergy (Verified 10/16/17 09:47) Hives cilostazol Allergy (Verified 10/16/17 09:47) Hives colestipol Allergy (Verified 10/16/17 09:47) Hives diltiazem Allergy (Verified 10/16/17 09:47) Hives gemfibrozil Allergy (Verified 10/16/17 09:47) Hives naproxen [From Naprosyn] Allergy (Verified 10/16/17 09:47) Hives niacin Allergy (Verified 10/16/17 09:47) Hives Penicillins Allergy (Verified 10/16/17 09:47) Hives pravastatin Allergy (Verified 10/16/17 09:47) Hives procaine [From Novocain] Allergy (Verified 10/16/17 09:47) Hives rosuvastatin Allergy (Verified 10/16/17 09:47) Hives simvastatin Allergy (Verified 10/16/17 09:47) Hives isosorbide Adverse Reaction (Severe, Verified 10/16/17 09:47) Unknown Home Medications: Ambulatory Orders Medication Instructions Recorded Amitriptyline HCl 100 mg GT QHS 02/16/17 Cholecalciferol (Vitamin D3) 5,000 unit GT DAILY 02/16/17 [Vitamin D3] Duloxetine HCl 60 mg GT DAILY 02/16/17 Lactase 1 tab GT TIDCM 02/16/17 Lansoprazole [Prevacid] 30 mg GT BIDCM 02/16/17 Nitroglycerin 0.4 mg SL PRN PRN 02/16/17 Ropinirole HCl [Requip] 0.5 mg GT QHS 02/16/17 Tamsulosin HCl [Flomax] 0.4 mg GT QHS 02/16/17 traMADol [Ultram] 50 mg GT TID PRN 02/16/17 Nicotine [Nicoderm] 14 mg TRANSDERM. DAILY 03/30/17 lisinopril 20 mg tablet 20 mg GT QDAY 05/20/17 glyburide 5 mg tablet 5 mg GT DAILY@1800 10/13/17 Acetaminophen 650 mg GT 4X/DAY PRN 12/04/17 Acetylcysteine 200 mg MC Q4H 12/04/17 Albuterol Inhaler [Ventolin Hfa 1 - 2 puff INHALATION 4X/DAY PRN 12/04/17 (SP)] PRN Amantadine Liquid 100 mg GT DAILY 12/04/17 Aspirin [Aspirin, Baby] 81 mg GT DAILY@0800 12/04/17 Budesonide Aerosol [Pulmicort 0.5 mg INHALATION BID 12/04/17 Aerosol] Cefepime HCl [Maxipime] 2 gm IV Q12 12/04/17 Clopidogrel Bisulfate [Plavix] 75 mg GT DAILY 12/04/17 Furosemide [Lasix] 40 mg GT BID 12/04/17 Guaifenesin [Mucinex] 600 mg PO BID 12/04/17 Insulin Glargine,Hum.rec.anlog 10 unit SQ DAILY@0600 12/04/17 [Lantus] Insulin Glargine,Hum.rec.anlog 15 unit SQ QHS 12/04/17 [Lantus] Ipratropium [Atrovent Aerosols] 0.5 mg INHALATION Q6H.RT 12/04/17 Isosorbide Mononitrate [Imdur] 60 mg GT BID 12/04/17 Magnesium Oxide [Mag-Ox 400] 400 mg GT TIDCM 12/04/17 Metoprolol Tartrate [Lopressor 75 mg GT TID 12/04/17 (beta stepan)] Metronidazole [Flagyl] 500 mg IV Q8H 12/04/17 Potassium Chloride [K-Dur] 20 meq GT DAILY@0800 12/04/17 Pravastatin [Pravachol] 80 mg PO QHS 12/04/17 ranitidine 150 mg capsule 150 mg GT QHS 12/04/17 Surgical History: Surgical History (Last Reviewed 10/16/17 @ 09:47 by Adele Bueno) Presence of coronary angioplasty implant and graft (Acute) Z95.5 Presence of aortocoronary bypass graft (Chronic) Z95.1 CABG X 3 2002 ?, Radial artery -LAD, SVG-RCA, SVG-OM2 Hx of CABG (Chronic) CABG X3 rADIAL ARTERY-lad, svg-rca, svg-om2. MULTIPLE CORONARY STENTS Surgical History: angioplasty, coronary bypass surgery, - - PEG tube. Psychiatric History: Depression Lives: Spouse/ Significant Other Smoking Status: Former smoker Tobacco Use: Cigarettes Alcohol: Heavy - No alcohol since traumatic brain injury Drugs: None - *Family History Maternal Family History: Family History (Last Updated 10/16/17 @ 09:48 by Adele Bueno) Brother Heart disease Father Heart disease History Items: No pertinent history, - - Alzheimer Paternal Family History: Family History (Last Updated 10/16/17 @ 09:48 by Adele Bueno) Brother Heart disease Father Heart disease History Items: No pertinent history Review of Systems Unable to obtain accurate/complete ROS d/t: Lethargy Patient Problems: Active and Suspected Problems (Last Updated 12/14/17 @ 15:23 by Jocelyn Machuca NP-C) Acute and chronic respiratory failure with hypoxia (Acute) Subjective: Patient was seen and examined. He is wearing his CPAP and oxygenating appropriately. Otherwise, he has been weaned to 2 L per nasal cannula. He is intermittently tachycardic but remains afebrile. Blood pressure is stable. Objective: Clinical Impression(s) from Imaging Studies Chest X-Ray 12/13/17 10:56 IMPRESSION: 1. No acute cardiopulmonary pathology. 2. No interval changes when compared to 12/11/2017. Electronically Signed: Cristofer Vann MD at 11:12 EDT , Service support , Chest CTA 12/13/17 11:20 IMPRESSION: 1. No CTA evidence of central pulmonary thromboemboli but suboptimal contrast opacification of the peripheral pulmonary arteries. Peripheral pulmonary thromboemboli cannot be excluded. Ventilation/perfusion lung scan may be helpful for further evaluation. 2. No CTA evidence of thoracic aortic aneurysm or thoracic aortic dissection. 3. Minimal subsegmental atelectases in the posterior lung bases. 4. Acute fracture comminution of the right scapula. Electronically Signed: Cristofer Vann MD at 12:30 EDT , Service support , - Physical Exam General: No apparent distress, Lethargic HEENT: Atraumatic, PERRLA, Normocephalic Oral: No Gingival or Mucosal Lesions/ Ulcerations, Dry Mucosa Neck: Supple, No Nodes, Trachea Midline Lungs: No rhonchi, No wheeze, Diminished, - - Bibasilar posterior rales. Symmetric expansion, no dullness to percussion. No tachypnea or accessory muscle use. Cardiovascular: Regular rate, Regular Rhythm, Normal S1, Normal S2, No murmurs, No rub noted, No Gallop Abdomen: Bowel Sounds Present, Soft, Non Tender, Obese, - - PEG tube site left upper quadrant intact, no erythema or drainage Extremities: No cyanosis, No edema, Capillary Refill Less than 3 Seconds, Clubbing, Peripheral Pulses Normal Skin: No rashes, No breakdown Musculoskeletal: No Tenderness to Palpation of Joints or Extremities Lymphatic: No Cervical, Supraclavicular, or Inguinal Adenopathy Neurological: - - Decreased LOC, awakens to voice. Moving left extremities, right upper extremity with minimal movement. Psych/Mental Status: - - Lethargic. Mumbling Vital Signs Temp Pulse Resp BP Pulse Ox 98.5 F 99 20 H 135/68 H 96 12/14/17 11:00 12/14/17 13:01 12/14/17 13:01 12/14/17 11:00 12/14/17 11:00 Oxygen Flow Rate (L/min) 2 Oxygen Delivery Method CPAP Weight: 246 lb 11.156 oz Body Mass Index (BMI) 35.3 Intake and Output for Last 24 Hours 12/12/17 12/13/17 12/14/17 23:59 23:59 23:59 Intake Total 1868 / 1868 3133 / 3133 Balance 1868 / 1868 3133 / 3133 Laboratory Tests Past 24 Hrs 12/13/17 12/13/17 12/14/17 15:24 18:00 05:05 WBC 11.0 RBC 3.51 L Hgb 10.7 L Hct 35.6 L MCV 101.4 H MCH 30.5 MCHC 30.1 L RDW 16.6 H RDW Differential 61.3 H Plt Count 255 MPV 11.8 Immature Gran % (Auto) 0.100 Neut % (Auto) 79.3 H Lymph % (Auto) 13.0 L [place] % (Auto) 6.9 Eos % (Auto) 0.4 Baso % (Auto) 0.3 Absolute Neuts (auto) 8.7 H Absolute Lymphs (auto) 1.42 Total Counted Not Reportable Sodium Potassium Chloride Carbon Dioxide Anion Gap BUN Creatinine Estim Creat Clear Calc Est GFR (MDRD) Af Amer Est GFR (MDRD) Non-Af BUN/Creatinine Ratio Glucose Lactic Acid 2.5 H Calcium MRSA (PCR) Negative 12/14/17 05:05 WBC RBC Hgb Hct MCV MCH MCHC RDW RDW Differential Plt Count MPV Immature Gran % (Auto) Neut % (Auto) Lymph % (Auto) [place] % (Auto) Eos % (Auto) Baso % (Auto) Absolute Neuts (auto) Absolute Lymphs (auto) Total Counted Sodium 145 Potassium 4.1 Chloride 107 Carbon Dioxide 30.0 Anion Gap 8 BUN 36 H Creatinine 0.66 L Estim Creat Clear Calc 74.01 Est GFR (MDRD) Af Amer 155 Est GFR (MDRD) Non-Af 128 BUN/Creatinine Ratio 54.6 H Glucose 384 H Lactic Acid Calcium 9.0 MRSA (PCR) POC Glucose 12/14/17 12/14/17 12/14/17 12:39 06:00 00:05 POC Glucose 327 H 394 H 368 H 12/13/17 12/13/17 21:58 18:17 POC Glucose 271 H 277 H Assessment/Plan All Active Problems (Last Updated 12/14/17 @ 15:23 by Jocelyn Machuca, KELLY-C) Fall (Acute) Alcohol intoxication (Resolved) Acute respiratory failure (Acute) Aspiration pneumonia (Acute) Acute and chronic respiratory failure with hypoxia (Acute) Encounter for long-term current use of high risk medication (Acute) Presence of coronary angioplasty implant and graft (Acute) FUO (fever of unknown origin) (Acute) Hypertensive emergency (Acute) Demand ischemia (Acute) Systolic CHF, acute (Acute) Acute respiratory failure with hypoxemia (Acute) Acute respiratory failure with hypoxia and hypercarbia (Resolved) Multifocal community-acquired pneumonia (Resolved) Severe sepsis (Resolved) RECOMMENDATIONS 1. Wean oxygen supplementation to keep saturations 88% or above 2. Encourage incentive spirometer/Acapella 3. Continue PT/OT 4. Continue bronchodilators and Pulmicort 5. Continue broad-spectrum antibiotics pending infectious workup 6. If patient unable to perform IS/CPT, can try vest therapy 7. Maintain strict aspiration precautions 8. Consult speech therapy, known to them 9. PEG tube management per hospitalist 10. Obtain sputum culture 11. Likely okay to discontinue nicotine therapy 12. Avoid sedating medications IMPRESSIONS 1. Acute on chronic hypoxic respiratory failure Likely secondary to recurrent aspiration pneumonia. Patient has been weaned to 2 L while on TCU, had abrupt decline in respiratory status. Chest x-ray relatively unremarkable, CT of the chest does have evidence of right upper lobe consolidation, reviewed with Dr. Swain. No evidence of PE but suboptimal contrast. The patient is on broad-spectrum antibiotics, continue pending infectious workup. Unclear why he is on Flagyl. Patient does have a PICC line that appears intact without any evidence of infection. MRSA nasal was negative. Encourage incentive spirometer/Acapella, can transition to vest therapy if patient remains lethargic or too weak to perform pulmonary toileting. He is hemodynamically stable. He did tolerate vest therapy well at [facility] per [id number], Lary. 2. Dysphagia Chronic, has PEG tube with nutritional supplement. Consult speech for ongoing therapy. Consult nutrition for recommendations of tube feeds, patient does have elevated blood sugars. 3. History of tobacco abuse and self-reported COPD Patient has not smoked several months, would likely be okay to discontinue his nicotine patch. No pulmonary function tests available. 4. HTN/morbid obesity/CHF/type 2 diabetes/history of CABG/BPH/GERD/depression/ JIM/subarachnoid, subdural, and intraparenchymal hemorrhage/TBI Complicates care, management, recovery, and prognosis. Continue home medications via PEG tube as indicated.
[2017-12-14 19:06] LABS: Bedside Glucose 233 mg/dL (70-110)
[2017-12-14] MEDS: Budesonide Respules 0.5 MG/2 ML AMPUL.NEB. INHALATION (19:30)
[2017-12-14] MEDS: Pravastatin 80 MG Tablet PO (21:13)
[2017-12-14] MEDS: Tamsulosin HCl 0.4 MG Capsule PO ×2 (21:13)
[2017-12-14] MEDS: Amitriptyline 100 MG Tablet GT (21:14)
[2017-12-14] MEDS: Pramipexole Di-HCl 0.25 MG Tablet GT (21:17)
[2017-12-14] MEDS: traMADol 50 MG Tablet GT (21:27)
[2017-12-14 23:26] LABS: Bedside Glucose 209 mg/dL (70-110)
[2017-12-15] VITALS (18 sets, daily range): BP systolic 129–165; BP diastolic 68–80; PULSE 71–101; RESP 16–21; TEMP 36.5–37.1; O2SAT 94–98
[2017-12-15] LABS: Bedside Glucose 296 mg/dL (70-110)
[2017-12-15] MEDS: Ipratropium/Albuterol Sulfate 3 ML AMPUL.NEB INHALATION ×4 (01:00→18:45)
[2017-12-15 01:57] LABS: Absolute Lymphocyte Count 1.72 X10^3/ul (0.83-4.51); Absolute Neutrophil Count 8.4 X10^3/uL (2.0-7.7); Basophil# 0.04 X10^3/uL; Basophil% 0.4 % (0-1); Eosinophil# 0.04 X10^3/uL; Eosinophils% 0.4 % (0-5); Hematocrit 34.1 % (40-54); Hemoglobin 10.4 g/dl (13.0-16.5); Lymphocyte # 1.72 X10^3/ul (4.0); Lymphocyte % 15.5 % (19-41); Mean Corp Hgb Conc 30.5 g/gl (32-36); Mean Corpuscular Hgb 31.7 pg (27.0-32.0); Mean Platelet Vol. 12.3 fl (6.2-12.0); Monocyte# 0.87 X10^3/uL; Monocyte% 7.8 % (0-10); Neutrophil # 8.42 X10^3/uL (2.7-7.7); Neutrophil % 75.8 % (47-70); POSITIVE COUNT NO; POSITIVE DIFFERENTIAL NO; POSITIVE MORPHOLOGY NO; Platelet Count 208 K/mm3 (150-450); RBC Distribution Width CV 16.7 % (11.6-14.6); RBC Distribution Width SD 61.9 fl (35.1-43.9); Red Blood Count 3.28 M/mm3 (4.6-6.2); White Blood Count 11.1 K/mm3 (4.4-11.0)
[2017-12-15] MEDS: 0.9% NaCl PICC Flush IV (02:17)
[2017-12-15 03:32] LABS: Vancomycin, Trough Level 13.9 ug/mL (5.0-15.0)
[2017-12-15 03:36] LABS: Anion Gap 10 (5-15); BUN 29 mg/dL (7-18); BUN/Creat Ratio 55.9 RATIO (10-20); Calcium,Total 8.7 mg/dL (8.5-10.1); Chloride 112 mmol/L (98-107); Creatinine, Serum 0.52 mg/dL (0.70-1.30); EST Glomerular Filtration Rate 169 mL/min (>60); Est Glom Filt Rate - Afr Amer 204 mL/min (>60); Estimated Creatinine Clearance 74.01 ml/min; Glucose 319 mg/dL (74-106); Potassium 3.9 mmol/L (3.5-5.1); Sodium Level 149 mmol/L (136-145)
[2017-12-15 06:05] LABS: Bedside Glucose 312 mg/dL (70-110)
[2017-12-15] MEDS: Pivot 1.5 Cal 1,000 ML 108 ML GT ×2 (06:24→23:18)
[2017-12-15] MEDS: Metoprolol Tartrate 50 MG Tablet 150 MG GT ×3 (06:25→22:27)
[2017-12-15] MEDS: Insulin Lispro 100 UNIT/ML INSULN.PEN SQ ×4 (06:26→23:56)
[2017-12-15] MEDS: Budesonide Respules 0.5 MG/2 ML AMPUL.NEB. INHALATION ×2 (06:51→18:45)
--- NOTE | 2017-12-15 07:20 | PCM.RX.CS ---
Consult Pharmacy has been consulted to manage selected antiobiotic: Vancomycin Type of Consult: Follow-up Suspected Infection: Pneumonia Prior Doses of Antibiotics Received/Current Regimen: Medications Vancomycin HCl 1,750 mg/ (Sodium Chloride) 535 mls @ 260 mls/hr IV Q12H BULL Last Admin: 12/15/17 02:16 Dose: 260 mls/hr Labs: Sodium 149 mmol/L (136-145) H 12/15/17 01:45 Potassium 3.9 mmol/L (3.5-5.1) 12/15/17 01:45 Chloride 112 mmol/L (98-107) H 12/15/17 01:45 Carbon Dioxide 27.0 mmol/L (21.0-32.0) 12/15/17 01:45 Anion Gap 10 (5-15) 12/15/17 01:45 BUN 29 mg/dL (7-18) H 12/15/17 01:45 Creatinine 0.52 mg/dL (0.70-1.30) L 12/15/17 01:45 Est GFR (MDRD) Af Amer 204 mL/min (>60) 12/15/17 01:45 Est GFR (MDRD) Non-Af 169 mL/min (>60) 12/15/17 01:45 BUN/Creatinine Ratio 55.9 RATIO (10-20) H 12/15/17 01:45 Glucose 319 mg/dL (74-106) H 12/15/17 01:45 Vancomycin Trough 13.9 ug/mL (5.0-15.0) 12/15/17 01:45 Weight used for dosin kg Estimated Creatinine Clearance: 74 mL/min Goal Trough: 15-20 mcg/mL Pharmacy Plan for Drug Dosing: Vancomycin trough below goal. However, considering patient's large BMI, subtherapeutic loading dose, and lack of positive microbiologic data will recommend to continue at this time. Will d/w physician to consider d/c. Will not plan to re-check trough at this time. Pharmacy Service will continue to monitor and adjust dosing as required.
[2017-12-15] MEDS: Aspirin 81 MG TAB.CHEW GT (08:09)
[2017-12-15] MEDS: Magnesium Oxide 400 MG Tablet GT ×3 (08:09→17:20)
[2017-12-15] MEDS: AMANTADINE HCL 50 MG/5ML 100 MG GT (08:11)
[2017-12-15] MEDS: amLODIPine 10 MG Tablet PO (08:12)
[2017-12-15] MEDS: Lisinopril 20 MG Tablet GT (08:14)
[2017-12-15 09:31] LABS: Bedside Glucose 261 mg/dL (70-110)
[2017-12-15] MEDS: Acetaminophen 650 MG/20 ML UDC GT (10:13)
--- NOTE | 2017-12-15 10:37 | NURSING ---
wound photo: sacrum
--- NOTE | 2017-12-15 11:00 | PCM.PROGNOTE ---
Patient Problems: Active and Suspected Problems (Last Updated 12/14/17 @ 15:23 by Jocelyn Machuca, DIRECTOR PERSONAL-C) Acute and chronic respiratory failure with hypoxia (Acute) Subjective: Patient was seen and examined. He is more alert this morning, conversing. is at the bedside. He sounds more congested this morning, reports he is unable to expectorate any sputum. She is assisting him with using the incentive spirometer and Acapella. Objective: Some lab and culture data reviewed. Urine strep/Legionella antigens were negative. Blood cultures from 12/13 are still pending. - Physical Exam General: Alert, No apparent distress, - - Oriented to self HEENT: Atraumatic, Normocephalic Oral: Moist Mucosa Neck: Supple, Trachea Midline Lungs: No wheeze, Diminished, Rales, Rhonchi, - - Symmetric expansion Cardiovascular: Regular rate, Regular Rhythm, Normal S1, Normal S2, No murmurs, No rub noted, No Gallop Abdomen: Bowel Sounds Present, Soft, Non Tender, Non-Distended, Obese, - - PEG tube site intact with abdominal binder Extremities: No cyanosis, No edema Skin: - - No changes from previous Musculoskeletal: No Tenderness to Palpation of Joints or Extremities Lymphatic: No Cervical, Supraclavicular, or Inguinal Adenopathy Neurological: - - More alert today, following commands Psych/Mental Status: Flat Affect Vital Signs Temp Pulse Resp BP Pulse Ox 97.7 F L 79 16 165/80 H 97 12/15/17 05:36 12/15/17 07:16 12/15/17 06:50 12/15/17 06:25 12/15/17 06:50 Oxygen Flow Rate (L/min) 4 Oxygen Delivery Method Nasal Cannula Weight: 246 lb 11.156 oz Body Mass Index (BMI) 35.3 Intake and Output for Last 24 Hours 12/13/17 12/14/17 12/15/17 23:59 23:59 23:59 Intake Total 1868 5135 / 5135 1611 / 1611 Balance 1868 5135 / 5135 1611 / 1611 Laboratory Tests Past 24 Hrs 12/15/17 12/15/17 12/15/17 01:45 01:45 01:45 WBC 11.1 H RBC 3.28 L Hgb 10.4 L Hct 34.1 L MCV 104.0 H MCH 31.7 MCHC 30.5 L RDW 16.7 H RDW Differential 61.9 H Plt Count 208 MPV 12.3 H Immature Gran % (Auto) 0.100 Neut % (Auto) 75.8 H Lymph % (Auto) 15.5 L Collin % (Auto) 7.8 Eos % (Auto) 0.4 Baso % (Auto) 0.4 Absolute Neuts (auto) 8.4 H Absolute Lymphs (auto) 1.72 Total Counted Not Reportable Sodium 149 H Potassium 3.9 Chloride 112 H Carbon Dioxide 27.0 Anion Gap 10 BUN 29 H Creatinine 0.52 L Estim Creat Clear Calc 74.01 Est GFR (MDRD) Af Amer 204 Est GFR (MDRD) Non-Af 169 BUN/Creatinine Ratio 55.9 H Glucose 319 H Calcium 8.7 Vancomycin Trough 13.9 POC Glucose 12/15/17 12/14/17 12/14/17 05:53 23:53 21:05 POC Glucose 312 H 296 H 209 H 12/14/17 12/14/17 12/13/17 18:51 12:39 16:02 POC Glucose 233 H 327 H 261 H Medical Necessity - Tobacco Use Smoking Status: Former smoker Tobacco Use: Cigarettes Assessment/Plan All Active Problems (Last Updated 12/14/17 @ 15:23 by Jocelyn Machuca, DIRECTOR PERSONAL-C) Fall (Acute) Alcohol intoxication (Resolved) Acute respiratory failure (Acute) Aspiration pneumonia (Acute) Acute and chronic respiratory failure with hypoxia (Acute) FUO (fever of unknown origin) (Acute) Demand ischemia (Resolved) Systolic CHF, acute (Acute) Acute respiratory failure with hypoxia and hypercarbia (Resolved) Multifocal community-acquired pneumonia (Resolved) Severe sepsis (Resolved) RECOMMENDATIONS 1. Wean oxygen supplementation to keep saturations 88% or above 2. Encourage incentive spirometer/Acapella 3. Continue PT/OT 4. Continue bronchodilators and Pulmicort 5. Continue broad-spectrum antibiotics 6. Switch to vest therapy 7. Maintain strict aspiration precautions 8. Obtain sputum culture 9. Likely okay to discontinue nicotine therapy 10. Avoid sedating medications IMPRESSIONS 1. Acute on chronic hypoxic respiratory failure Likely secondary to recurrent aspiration pneumonia. Patient has been weaned to 2 L while on TCU, had abrupt decline in respiratory status. Chest x-ray relatively unremarkable, CT of the chest does have evidence of right upper lobe consolidation, reviewed with Dr. Swain. No evidence of PE but suboptimal contrast. The patient is on broad-spectrum antibiotics, continue pending infectious workup. Patient does have a PICC line that appears intact without any evidence of infection. MRSA nasal was negative. Patient having difficulty with effective incentive spirometer/Acapella, sounds congested today, transition to vest therapy. 2. Dysphagia Chronic, has PEG tube with nutritional supplement. Consult speech for ongoing therapy. Consult nutrition for recommendations of tube feeds, patient does have elevated blood sugars. 3. History of tobacco abuse and self-reported COPD Patient has not smoked several months, would likely be okay to discontinue his nicotine patch. No pulmonary function tests available. 4. HTN/morbid obesity/CHF/type 2 diabetes/history of CABG/BPH/GERD/depression/JIM/subarachnoid, subdural, and intraparenchymal hemorrhage/TBI Complicates care, management, recovery, and prognosis. Continue home medications via PEG tube as indicated. This note was generated with [employer] dictation software. It may contain incorrect words, spelling, and punctuation that were not noted in checking the note before signing.
--- NOTE | 2017-12-15 11:00 | CASEMGMT ---
Social Work Patient spouse provided this social media coordinator with completed medicaid application. Medicaid application faxed to [employer]. Social work to continue to follow as needed. Nora JERONIMO, GATE TENDER
--- NOTE | 2017-12-15 11:10 | PN_ITS ---
Patient Problems: Active and Suspected Problems (Last Updated 12/14/17 @ 15:23 by Jocelyn Machuca , SMOKED MEAT PREPARER-C) Acute and chronic respiratory failure with hypoxia (Acute) Subjective: Patient was seen and examined. He is more alert this morning, conversing. is at the bedside. He sounds more congested this morning, reports he is unable to expectorate any sputum. She is assisting him with using the incentive spirometer and Acapella. Objective: Some lab and culture data reviewed. Urine strep/Legionella antigens were negative. Blood cultures from 12/13 are still pending. - Physical Exam General: Alert, No apparent distress, - - Oriented to self HEENT: Atraumatic, Normocephalic Oral: Moist Mucosa Neck: Supple, Trachea Midline Lungs: No wheeze, Diminished, Rales, Rhonchi, - - Symmetric expansion Cardiovascular: Regular rate, Regular Rhythm, Normal S1, Normal S2, No murmurs, No rub noted, No Gallop Abdomen: Bowel Sounds Present, Soft, Non Tender, Non-Distended, Obese, - - PEG tube site intact with abdominal binder Extremities: No cyanosis, No edema Skin: - - No changes from previous Musculoskeletal: No Tenderness to Palpation of Joints or Extremities Lymphatic: No Cervical, Supraclavicular, or Inguinal Adenopathy Neurological: - - More alert today, following commands Psych/Mental Status: Flat Affect Vital Signs Temp Pulse Resp BP Pulse Ox 97.7 F L 79 16 165/80 H 97 12/15/17 05:36 12/15/17 07:16 12/15/17 06:50 12/15/17 06:25 12/15/17 06:50 Oxygen Flow Rate (L/min) 4 Oxygen Delivery Method Nasal Cannula Weight: 246 lb 11.156 oz Body Mass Index (BMI) 35.3 Intake and Output for Last 24 Hours 12/13/17 12/14/17 12/15/17 23:59 23:59 23:59 Intake Total 1868 5135 / 5135 1611 / 1611 Balance 1868 5135 / 5135 1611 / 1611 Laboratory Tests Past 24 Hrs 12/15/17 12/15/17 12/15/17 01:45 01:45 01:45 WBC 11.1 H RBC 3.28 L Hgb 10.4 L Hct 34.1 L MCV 104.0 H MCH 31.7 MCHC 30.5 L RDW 16.7 H RDW Differential 61.9 H Plt Count 208 MPV 12.3 H Immature Gran % (Auto) 0.100 Neut % (Auto) 75.8 H Lymph % (Auto) 15.5 L Door % (Auto) 7.8 Eos % (Auto) 0.4 Baso % (Auto) 0.4 Absolute Neuts (auto) 8.4 H Absolute Lymphs (auto) 1.72 Total Counted Not Reportable Sodium 149 H Potassium 3.9 Chloride 112 H Carbon Dioxide 27.0 Anion Gap 10 BUN 29 H Creatinine 0.52 L Estim Creat Clear Calc 74.01 Est GFR (MDRD) Af Amer 204 Est GFR (MDRD) Non-Af 169 BUN/Creatinine Ratio 55.9 H Glucose 319 H Calcium 8.7 Vancomycin Trough 13.9 POC Glucose 12/15/17 12/14/17 12/14/17 05:53 23:53 21:05 POC Glucose 312 H 296 H 209 H 12/14/17 12/14/17 12/13/17 18:51 12:39 16:02 POC Glucose 233 H 327 H 261 H Medical Necessity - Tobacco Use Smoking Status: Former smoker Tobacco Use: Cigarettes Assessment/Plan All Active Problems (Last Updated 12/14/17 @ 15:23 by Jocelyn Machuca, SMOKED MEAT PREPARER-C) Fall (Acute) Alcohol intoxication (Resolved) Acute respiratory failure (Acute) Aspiration pneumonia (Acute) Acute and chronic respiratory failure with hypoxia (Acute) FUO (fever of unknown origin) (Acute) Demand ischemia (Resolved) Systolic CHF, acute (Acute) Acute respiratory failure with hypoxia and hypercarbia (Resolved) Multifocal community-acquired pneumonia (Resolved) Severe sepsis (Resolved) RECOMMENDATIONS 1. Wean oxygen supplementation to keep saturations 88% or above 2. Encourage incentive spirometer/Acapella 3. Continue PT/OT 4. Continue bronchodilators and Pulmicort 5. Continue broad-spectrum antibiotics 6. Switch to vest therapy 7. Maintain strict aspiration precautions 8. Obtain sputum culture 9. Likely okay to discontinue nicotine therapy 10. Avoid sedating medications IMPRESSIONS 1. Acute on chronic hypoxic respiratory failure Likely secondary to recurrent aspiration pneumonia. Patient has been weaned to 2 L while on TCU, had abrupt decline in respiratory status. Chest x-ray relatively unremarkable, CT of the chest does have evidence of right upper lobe consolidation, reviewed with Dr. Swain. No evidence of PE but suboptimal contrast. The patient is on broad-spectrum antibiotics, continue pending infectious workup. Patient does have a PICC line that appears intact without any evidence of infection. MRSA nasal was negative. Patient having difficulty with effective incentive spirometer/Acapella, sounds congested today, transition to vest therapy. 2. Dysphagia Chronic, has PEG tube with nutritional supplement. Consult speech for ongoing therapy. Consult nutrition for recommendations of tube feeds, patient does have elevated blood sugars. 3. History of tobacco abuse and self-reported COPD Patient has not smoked several months, would likely be okay to discontinue his nicotine patch. No pulmonary function tests available. 4. HTN/morbid obesity/CHF/type 2 diabetes/history of CABG/BPH/GERD/depression/ JIM/subarachnoid, subdural, and intraparenchymal hemorrhage/TBI Complicates care, management, recovery, and prognosis. Continue home medications via PEG tube as indicated. This note was generated with [employer] dictation software. It may contain incorrect words, spelling, and punctuation that were not noted in checking the note before signing.
--- NOTE | 2017-12-15 11:11 | PCM.PN.HOSP ---
Patient Problems: Active and Suspected Problems (Last Updated 12/14/17 @ 15:23 by Jocelyn Machuca, INSURANCE UNDERWRITER-C) Acute and chronic respiratory failure with hypoxia (Acute) Subjective: Breathing well on nasal canula. Vitals/I&O's: Vital Signs Temp Pulse Resp BP Pulse Ox 36.5 C L 79 16 165/80 H 97 12/15/17 05:36 12/15/17 07:16 12/15/17 06:50 12/15/17 06:25 12/15/17 06:50 Oxygen Flow Rate (L/min) 4 Oxygen Delivery Method Nasal Cannula Weight: 111.9 kg Body Mass Index (BMI) 35.3 Intake and Output for Last 24 Hours 12/13/17 12/14/17 12/15/17 23:59 23:59 23:59 Intake Total 1868 5135 / 5135 1611 / 1611 Balance 1868 5135 / 5135 1611 / 1611 General: Alert, Cooperative, No apparent distress, - - hypophonic. HEENT: Atraumatic, Normocephalic Oral: Moist Mucosa, No Gingival or Mucosal Lesions/ Ulcerations Neck: No Nodes, Thyroid Normal Size and Texture Lungs: Diminished, - - coarse BS bilaterally. Cardiovascular: Regular rate, Regular Rhythm, Normal S1, Normal S2, No murmurs Abdomen: Bowel Sounds Present, Soft, Non Tender, Non-Distended Extremities: No edema, No Calf Tenderness Psych/Mental Status: Normal Affect, Appropriate Laboratory Results 12/13/17 16:02: POC Glucose 261 H 12/14/17 12:39: POC Glucose 327 H 12/14/17 18:51: POC Glucose 233 H 12/14/17 21:05: POC Glucose 209 H 12/14/17 23:53: POC Glucose 296 H 12/15/17 01:45: Vancomycin Trough 13.9 12/15/17 01:45: WBC 11.1 H, RBC 3.28 L, Hgb 10.4 L, Hct 34.1 L, MCV 104.0 H, MCH 31.7, MCHC 30.5 L, RDW 16.7 H, RDW Differential 61.9 H, Plt Count 208, MPV 12.3 H, Immature Gran % (Auto) 0.100, Neut % (Auto) 75.8 H, Lymph % (Auto) 15.5 L, Randall % (Auto) 7.8, Eos % (Auto) 0.4, Baso % (Auto) 0.4, Absolute Neuts (auto) 8.4 H, Absolute Lymphs (auto) 1.72, Total Counted Not Reportable 12/15/17 01:45: Sodium 149 H, Potassium 3.9, Chloride 112 H, Carbon Dioxide 27.0, Anion Gap 10, BUN 29 H, Creatinine 0.52 L, Estim Creat Clear Calc 74.01, Est GFR (MDRD) Af Amer 204, Est GFR (MDRD) Non-Af 169, BUN/Creatinine Ratio 55.9 H, Glucose 319 H, Calcium 8.7 12/15/17 05:53: POC Glucose 312 H Current Medications Acetaminophen (Tylenol Liquid) 650 mg GT Q4H PRN PRN PRN Reason: FEVER Last Admin: 12/15/17 10:13 Dose: 650 mg Al Hydroxide/Mg Hydroxide (Mylanta Ii) 30 ml GT Q6H PRN PRN PRN Reason: Gastric burning Albuterol Sulfate (Ventolin Aerosols) 2.5 mg INHALATION Q2H PRN PRN PRN Reason: SHORTNESS OF BREATH Albuterol/Ipratropium (Duoneb) 3 ml INHALATION Q6H.RT [facility] Last Admin: 12/15/17 06:50 Dose: 3 ml Amantadine HCl () 100 mg GT DAILY [facility] Last Admin: 12/15/17 08:11 Dose: 100 mg Amitriptyline HCl (Elavil) 100 mg GT QHS [facility] Last Admin: 12/14/17 21:14 Dose: 100 mg Amlodipine Besylate (Norvasc) 10 mg PO DAILY [facility] Last Admin: 12/15/17 08:12 Dose: 10 mg Aspirin (Aspirin, Baby) 81 mg GT DAILY@0800 [facility] Last Admin: 12/15/17 08:09 Dose: 81 mg Bisacodyl (Dulcolax) 5 mg PO DAILY PRN PRN PRN Reason: Constipation Budesonide (Pulmicort Aerosol) 0.5 mg INHALATION BID [facility] Last Admin: 12/15/17 06:51 Dose: 0.5 mg Cholecalciferol (Vitamin D) 5,000 unit GT DAILY [facility] Last Admin: 12/15/17 08:13 Dose: 5,000 unit Dextromethorphan HBr (Robitussin Pediatric, Benylin Pediatric) 30 mg PO TID [facility] Last Admin: 12/15/17 06:25 Dose: 30 mg Dextrose (D50w Syringe) 0 gm IV X1 PRN; Protocol PRN Reason: Hypoglycemia Glucagon () 1 mg IM .X1 PRN PRN Reason: Hypoglycemia Heparin Sodium (Beef Lung) (Heparin 500 Unit/5 Ml (100/Ml)) 500 unit IV UD PRN PRN Reason: HEPARIN FLUSH Metronidazole (Flagyl) 500 mg in 100 mls @ 100 mls/hr IV Q8 [facility] Last Admin: 12/15/17 06:25 Dose: 100 mls/hr Lactose (Pivot 1.5 Luis) 1,000 mls @ 108 mls/hr GT .[id number] [facility] Last Admin: 12/15/17 06:24 Dose: 108 mls/hr Cefepime HCl 2 gm/ Sodium (Chloride) 100 mls @ 200 mls/hr IV Q12 [facility] Last Admin: 12/15/17 10:10 Dose: 200 mls/hr Insulin Glargine (Lantus (Bkc)) 10 units SC DAILY [facility] Last Admin: 12/15/17 10:12 Dose: 10 unit Insulin Glargine (Lantus (Bkc)) 15 units SC QHS [facility] Last Admin: 12/14/17 21:16 Dose: 15 u Insulin Human Lispro (Humalog Kwikpen (Bkc)) 0 unit SQ Q6 [facility] PRN Reason: Protocol Last Admin: 12/15/17 06:26 Dose: 3 units Lansoprazole (Prevacid) 30 mg PO BIDCM [facility] Last Admin: 12/15/17 08:10 Dose: 30 mg Lisinopril (Zestril) 20 mg GT DAILY [facility] Last Admin: 12/15/17 08:14 Dose: 20 mg Magnesium Hydroxide (Milk Of Magnesia) 30 ml PO DAILY PRN PRN Reason: Constipation Magnesium Oxide (Mag-Ox 400) 400 mg GT TIDCM [facility] Last Admin: 12/15/17 08:09 Dose: 400 mg Metoprolol Tartrate (Lopressor (Beta Devante)) 150 mg GT TID [facility] Last Admin: 12/15/17 06:25 Dose: 150 mg Multi-Ingredient Cream (Eucerin) 1 applic TOPICAL BID [facility] PRN Reason: Protocol Last Admin: 12/15/17 08:11 Dose: 1 applic Nicotine (Nicoderm Cq (Pbkc)) 14 mg TRANSDERM. DAILY [facility] Last Admin: 12/15/17 08:12 Dose: 14 mg Nitroglycerin (Nitrostat) 0.4 mg SUBLINGUAL PRN PRN PRN Reason: CARDIAC/CHEST PAIN Ondansetron HCl (Zofran) 4 mg IV Q8H PRN PRN PRN Reason: NAUSEA Pramipexole Dihydrochloride (Mirapex) 0.25 mg GT QHS [facility] Last Admin: 12/14/17 21:17 Dose: 0.25 mg Pravastatin Sodium (Pravachol) 80 mg PO QHS [facility] Last Admin: 12/14/17 21:13 Dose: 80 mg Sodium Chloride () 10 - 20 ml IV UD PRN PRN Reason: PICC FLUSH Last Admin: 12/15/17 02:17 Dose: 10 ml Tamsulosin HCl (Flomax) 0.4 mg PO QHS [facility] Last Admin: 12/14/17 21:13 Dose: 0.4 mg Tramadol HCl (Ultram) 50 mg GT TID PRN PRN Reason: PAIN Last Admin: 12/14/17 21:27 Dose: 50 mg Zolpidem Tartrate (Ambien (Generic)) 5 mg PO QHS PRN PRN PRN Reason: INSOMNIA Medical Necessity - Tobacco Use Smoking Status: Former smoker Tobacco Use: Cigarettes Assessment/Plan All Active Problems (Last Updated 12/14/17 @ 15:23 by Jocelyn Machuca, INSURANCE UNDERWRITER-C) Fall (Acute) Alcohol intoxication (Resolved) Acute respiratory failure (Acute) Aspiration pneumonia (Acute) Acute and chronic respiratory failure with hypoxia (Acute) Encounter for long-term current use of high risk medication (Acute) Presence of coronary angioplasty implant and graft (Acute) FUO (fever of unknown origin) (Acute) Hypertensive emergency (Acute) Demand ischemia (Acute) Systolic CHF, acute (Acute) Acute respiratory failure with hypoxemia (Acute) Acute respiratory failure with hypoxia and hypercarbia (Resolved) Multifocal community-acquired pneumonia (Resolved) Severe sepsis (Resolved) 1. acute on chronic hypoxic resp failure improved secondary to pneumonia 2. presumed gram negative pneumonia cefepime and vanc pulm toilet pulmonology on consult vest therapy 3. TBI after falling down stairs while intoxicated w ICH, SAH, SDH, IVH. right sided weakness SNF/rehab upon discharge 4. Dysphagia s/p PEG speech therapy. 5. DVT proph: SCDs, DC lovenox given TBI 6. CAD. ASA and metoprolol. DW patient's at bedside. Code Visit Inpatient E&M: 95027 Subs Hosp L2
--- NOTE | 2017-12-15 11:14 | PN_ITS ---
Patient Problems: Active and Suspected Problems (Last Updated 12/14/17 @ 15:23 by Jocelyn Machuca , BEAUTY THERAPIST-C) Acute and chronic respiratory failure with hypoxia (Acute) Subjective: Breathing well on nasal canula. Vitals/I&O's: Vital Signs Temp Pulse Resp BP Pulse Ox 36.5 C L 79 16 165/80 H 97 12/15/17 05:36 12/15/17 07:16 12/15/17 06:50 12/15/17 06:25 12/15/17 06:50 Oxygen Flow Rate (L/min) 4 Oxygen Delivery Method Nasal Cannula Weight: 111.9 kg Body Mass Index (BMI) 35.3 Intake and Output for Last 24 Hours 12/13/17 12/14/17 12/15/17 23:59 23:59 23:59 Intake Total 1868 5135 / 5135 1611 / 1611 Balance 1868 5135 / 5135 1611 / 1611 General: Alert, Cooperative, No apparent distress, - - hypophonic. HEENT: Atraumatic, Normocephalic Oral: Moist Mucosa, No Gingival or Mucosal Lesions/ Ulcerations Neck: No Nodes, Thyroid Normal Size and Texture Lungs: Diminished, - - coarse BS bilaterally. Cardiovascular: Regular rate, Regular Rhythm, Normal S1, Normal S2, No murmurs Abdomen: Bowel Sounds Present, Soft, Non Tender, Non-Distended Extremities: No edema, No Calf Tenderness Psych/Mental Status: Normal Affect, Appropriate Laboratory Results 12/13/17 16:02: POC Glucose 261 H 12/14/17 12:39: POC Glucose 327 H 12/14/17 18:51: POC Glucose 233 H 12/14/17 21:05: POC Glucose 209 H 12/14/17 23:53: POC Glucose 296 H 12/15/17 01:45: Vancomycin Trough 13.9 12/15/17 01:45: WBC 11.1 H, RBC 3.28 L, Hgb 10.4 L, Hct 34.1 L, MCV 104.0 H, MCH 31.7, MCHC 30.5 L, RDW 16.7 H, RDW Differential 61.9 H, Plt Count 208, MPV 12.3 H, Immature Gran % (Auto) 0.100, Neut % (Auto) 75.8 H, Lymph % (Auto) 15.5 L, [place] % (Auto) 7.8, Eos % (Auto) 0.4, Baso % (Auto) 0.4, Absolute Neuts (auto ) 8.4 H, Absolute Lymphs (auto) 1.72, Total Counted Not Reportable 12/15/17 01:45: Sodium 149 H, Potassium 3.9, Chloride 112 H, Carbon Dioxide 27.0 , Anion Gap 10, BUN 29 H, Creatinine 0.52 L, Estim Creat Clear Calc 74.01, Est GFR (MDRD) Af Amer 204, Est GFR (MDRD) Non-Af 169, BUN/Creatinine Ratio 55.9 H, Glucose 319 H, Calcium 8.7 12/15/17 05:53: POC Glucose 312 H Current Medications Acetaminophen (Tylenol Liquid) 650 mg GT Q4H PRN PRN PRN Reason: FEVER Last Admin: 12/15/17 10:13 Dose: 650 mg Al Hydroxide/Mg Hydroxide (Mylanta Ii) 30 ml GT Q6H PRN PRN PRN Reason: Gastric burning Albuterol Sulfate (Ventolin Aerosols) 2.5 mg INHALATION Q2H PRN PRN PRN Reason: SHORTNESS OF BREATH Albuterol/Ipratropium (Duoneb) 3 ml INHALATION Q6H.RT [facility] Last Admin: 12/15/17 06:50 Dose: 3 ml Amantadine HCl () 100 mg GT DAILY [facility] Last Admin: 12/15/17 08:11 Dose: 100 mg Amitriptyline HCl (Elavil) 100 mg GT QHS [facility] Last Admin: 12/14/17 21:14 Dose: 100 mg Amlodipine Besylate (Norvasc) 10 mg PO DAILY [facility] Last Admin: 12/15/17 08:12 Dose: 10 mg Aspirin (Aspirin, Baby) 81 mg GT DAILY@0800 [facility] Last Admin: 12/15/17 08:09 Dose: 81 mg Bisacodyl (Dulcolax) 5 mg PO DAILY PRN PRN PRN Reason: Constipation Budesonide (Pulmicort Aerosol) 0.5 mg INHALATION BID [facility] Last Admin: 12/15/17 06:51 Dose: 0.5 mg Cholecalciferol (Vitamin D) 5,000 unit GT DAILY [facility] Last Admin: 12/15/17 08:13 Dose: 5,000 unit Dextromethorphan HBr (Robitussin Pediatric, Benylin Pediatric) 30 mg PO TID [facility] Last Admin: 12/15/17 06:25 Dose: 30 mg Dextrose (D50w Syringe) 0 gm IV X1 PRN; Protocol PRN Reason: Hypoglycemia Glucagon () 1 mg IM .X1 PRN PRN Reason: Hypoglycemia Heparin Sodium (Beef Lung) (Heparin 500 Unit/5 Ml (100/Ml)) 500 unit IV UD PRN PRN Reason: HEPARIN FLUSH Metronidazole (Flagyl) 500 mg in 100 mls @ 100 mls/hr IV Q8 [facility] Last Admin: 12/15/17 06:25 Dose: 100 mls/hr Lactose (Pivot 1.5 Luis) 1,000 mls @ 108 mls/hr GT .Q9H16M [facility] Last Admin: 12/15/17 06:24 Dose: 108 mls/hr Cefepime HCl 2 gm/ Sodium (Chloride) 100 mls @ 200 mls/hr IV Q12 [facility] Last Admin: 12/15/17 10:10 Dose: 200 mls/hr Insulin Glargine (Lantus (Bkc)) 10 units SC DAILY [facility] Last Admin: 12/15/17 10:12 Dose: 10 unit Insulin Glargine (Lantus (Bkc)) 15 units SC QHS [facility] Last Admin: 12/14/17 21:16 Dose: 15 u Insulin Human Lispro (Humalog Kwikpen (Bkc)) 0 unit SQ Q6 [facility] PRN Reason: Protocol Last Admin: 12/15/17 06:26 Dose: 3 units Lansoprazole (Prevacid) 30 mg PO BIDCM [facility] Last Admin: 12/15/17 08:10 Dose: 30 mg Lisinopril (Zestril) 20 mg GT DAILY [facility] Last Admin: 12/15/17 08:14 Dose: 20 mg Magnesium Hydroxide (Milk Of Magnesia) 30 ml PO DAILY PRN PRN Reason: Constipation Magnesium Oxide (Mag-Ox 400) 400 mg GT TIDCM [facility] Last Admin: 12/15/17 08:09 Dose: 400 mg Metoprolol Tartrate (Lopressor (Beta Devante)) 150 mg GT TID [facility] Last Admin: 12/15/17 06:25 Dose: 150 mg Multi-Ingredient Cream (Eucerin) 1 applic TOPICAL BID [facility] PRN Reason: Protocol Last Admin: 12/15/17 08:11 Dose: 1 applic Nicotine (Nicoderm Cq (Pbkc)) 14 mg TRANSDERM. DAILY [facility] Last Admin: 12/15/17 08:12 Dose: 14 mg Nitroglycerin (Nitrostat) 0.4 mg SUBLINGUAL PRN PRN PRN Reason: CARDIAC/CHEST PAIN Ondansetron HCl (Zofran) 4 mg IV Q8H PRN PRN PRN Reason: NAUSEA Pramipexole Dihydrochloride (Mirapex) 0.25 mg GT QHS [facility] Last Admin: 12/14/17 21:17 Dose: 0.25 mg Pravastatin Sodium (Pravachol) 80 mg PO QHS [facility] Last Admin: 12/14/17 21:13 Dose: 80 mg Sodium Chloride () 10 - 20 ml IV UD PRN PRN Reason: PICC FLUSH Last Admin: 12/15/17 02:17 Dose: 10 ml Tamsulosin HCl (Flomax) 0.4 mg PO QHS [facility] Last Admin: 12/14/17 21:13 Dose: 0.4 mg Tramadol HCl (Ultram) 50 mg GT TID PRN PRN Reason: PAIN Last Admin: 12/14/17 21:27 Dose: 50 mg Zolpidem Tartrate (Ambien (Generic)) 5 mg PO QHS PRN PRN PRN Reason: INSOMNIA Medical Necessity - Tobacco Use Smoking Status: Former smoker Tobacco Use: Cigarettes Assessment/Plan All Active Problems (Last Updated 12/14/17 @ 15:23 by Jocelyn Machuca, BEAUTY THERAPIST-C) Fall (Acute) Alcohol intoxication (Resolved) Acute respiratory failure (Acute) Aspiration pneumonia (Acute) Acute and chronic respiratory failure with hypoxia (Acute) Encounter for long-term current use of high risk medication (Acute) Presence of coronary angioplasty implant and graft (Acute) FUO (fever of unknown origin) (Acute) Hypertensive emergency (Acute) Demand ischemia (Acute) Systolic CHF, acute (Acute) Acute respiratory failure with hypoxemia (Acute) Acute respiratory failure with hypoxia and hypercarbia (Resolved) Multifocal community-acquired pneumonia (Resolved) Severe sepsis (Resolved) 1. acute on chronic hypoxic resp failure * improved * secondary to pneumonia 2. presumed gram negative pneumonia * cefepime and vanc * pulm toilet * pulmonology on consult * vest therapy 3. 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 * right sided weakness * SNF/rehab upon discharge 4. Dysphagia * s/p PEG * speech therapy. 5. DVT proph: SCDs, DC lovenox given TBI 6. CAD. ASA and metoprolol. DW patient's at bedside. Code Visit Inpatient E&M: 09668 Subs Hosp L2
[2017-12-15 12:00] LABS: Bedside Glucose 292 mg/dL (70-110)
[2017-12-15] MEDS: traMADol 50 MG Tablet GT (14:10)
[2017-12-15] MEDS: Furosemide 40 MG Tablet PO ×2 (14:10→19:55)
[2017-12-15 17:51] LABS: Bedside Glucose 231 mg/dL (70-110)
[2017-12-15] MEDS: Amitriptyline 100 MG Tablet GT (22:25)
[2017-12-15] MEDS: Pramipexole Di-HCl 0.25 MG Tablet GT (22:27)
[2017-12-15] MEDS: Pravastatin 80 MG Tablet PO (22:27)
[2017-12-15 23:55] LABS: Bedside Glucose 186 mg/dL (70-110)
[2017-12-16] VITALS (19 sets, daily range): BP systolic 97–164; BP diastolic 42–67; PULSE 76–98; RESP 16–20; TEMP 36.9–37.2; O2SAT 94–96
[2017-12-16 00:06] LABS: Bedside Glucose 190 mg/dL (70-110)
[2017-12-16] MEDS: Ipratropium/Albuterol Sulfate 3 ML AMPUL.NEB INHALATION ×4 (00:24→19:26)
[2017-12-16] MEDS: 0.9% NaCl PICC Flush IV ×2 (04:42→04:50)
[2017-12-16] MEDS: Metoprolol Tartrate 50 MG Tablet 150 MG GT ×3 (05:04→21:36)
[2017-12-16 05:08] LABS: Absolute Neutrophil Count 7.8 X10^3/uL (2.0-7.7); Basophil# 0.04 X10^3/uL; Basophil% 0.4 % (0-1); Eosinophil# 0.05 X10^3/uL; Eosinophils% 0.5 % (0-5); Hematocrit 35.2 % (40-54); Hemoglobin 10.8 g/dl (13.0-16.5); Lymphocyte % 14.9 % (19-41); Mean Corp Hgb Conc 30.7 g/gl (32-36); Mean Corpuscular Hgb 31.8 pg (27.0-32.0); Mean Corpuscular Volume 103.5 fL (80-94); Mean Platelet Vol. 12.6 fl (6.2-12.0); Monocyte# 0.69 X10^3/uL; Monocyte% 6.9 % (0-10); Neutrophil # 7.76 X10^3/uL (2.7-7.7); Neutrophil % 77.1 % (47-70); Platelet Count 212 K/mm3 (150-450); RBC Distribution Width SD 59.2 fl (35.1-43.9); White Blood Count 10.1 K/mm3 (4.4-11.0)
[2017-12-16 05:10] LABS: POSITIVE COUNT NO; POSITIVE DIFFERENTIAL NO; POSITIVE MORPHOLOGY NO
[2017-12-16] MEDS: Insulin Lispro 100 UNIT/ML INSULN.PEN SQ ×3 (05:11→17:00)
[2017-12-16 05:24] LABS: Anion Gap 7 (5-15); BUN 25 mg/dL (7-18); BUN/Creat Ratio 43.6 RATIO (10-20); Chloride 108 mmol/L (98-107); Creatinine, Serum 0.57 mg/dL (0.70-1.30); EST Glomerular Filtration Rate 150 mL/min (>60); Est Glom Filt Rate - Afr Amer 182 mL/min (>60); Estimated Creatinine Clearance 74.01 ml/min; Glucose 364 mg/dL (74-106); Potassium 3.4 mmol/L (3.5-5.1); Sodium Level 146 mmol/L (136-145)
[2017-12-16 05:31] LABS: Bedside Glucose 358 mg/dL (70-110)
[2017-12-16] MEDS: Budesonide Respules 0.5 MG/2 ML AMPUL.NEB. INHALATION ×2 (06:38→19:26)
[2017-12-16] MEDS: Magnesium Oxide 400 MG Tablet GT ×3 (07:57→17:00)
[2017-12-16] MEDS: Aspirin 81 MG TAB.CHEW GT (07:57)
[2017-12-16] MEDS: AMANTADINE HCL 50 MG/5ML 100 MG GT (07:58)
[2017-12-16] MEDS: amLODIPine 10 MG Tablet PO (08:00)
[2017-12-16] MEDS: Lisinopril 20 MG Tablet GT (08:01)
[2017-12-16] MEDS: Furosemide 40 MG Tablet PO ×2 (08:02→17:00)
--- NOTE | 2017-12-16 10:33 | PCM.PROGNOTE ---
Patient Problems: Active and Suspected Problems (Last Updated 12/15/17 @ 11:14 by Jocelyn Machuca, INSURANCE LOSS ASSESSOR-C) Acute and chronic respiratory failure with hypoxia (Acute) Subjective: Patient was seen and examined. His is at the bedside. She reports he was just alert and conversing, he seems fatigued at this time. Also had a large amount of expectorated mucus, she was unaware we needed a sample so this was thrown away. Kyaw does complain of some shortness of breath and coarse cough. Objective: Recent lab and culture data reviewed. Blood cultures from 12/13 are pending. Urine strep/Legionella antigens were negative. Patient remains afebrile and hemodynamically stable. He is maintaining appropriate saturations on 3 L of oxygen, weaned from 4 L. - Physical Exam General: Alert, Oriented x3, Cooperative, No apparent distress HEENT: Atraumatic, Normocephalic Oral: Moist Mucosa, No Gingival or Mucosal Lesions/ Ulcerations Neck: Supple, No Nodes, Thyroid Normal Size and Texture Lungs: No wheeze, Diminished, Rales, Rhonchi, - - Symmetric expansion, no tachypnea or accessory muscle use Cardiovascular: Regular rate, Regular Rhythm, Normal S1, Normal S2 Abdomen: Bowel Sounds Present, Soft, Non Tender, Obese Extremities: No cyanosis, No edema Skin: - - No changes from previous Musculoskeletal: No Tenderness to Palpation of Joints or Extremities Lymphatic: No Cervical, Supraclavicular, or Inguinal Adenopathy Neurological: - - Semi-lethargic, states was just alert and conversing. Psych/Mental Status: - - Calm, cooperative Vital Signs Temp Pulse Resp BP Pulse Ox 99.0 F 90 18 97/50 L 96 12/16/17 09:22 12/16/17 09:22 12/16/17 09:22 12/16/17 09:22 12/16/17 09:22 Oxygen Flow Rate (L/min) 3 Oxygen Delivery Method Nasal Cannula Weight: 246 lb 11.156 oz Body Mass Index (BMI) 35.3 Intake and Output for Last 24 Hours 12/14/17 12/15/17 12/16/17 23:59 23:59 23:59 Intake Total 5135 / 5135 2896 / 2896 1743 / 1743 Balance 5135 / 5135 2896 / 2896 1743 / 1743 Laboratory Tests Past 24 Hrs 12/16/17 12/16/17 04:55 04:55 WBC 10.1 RBC 3.40 L Hgb 10.8 L Hct 35.2 L MCV 103.5 H MCH 31.8 MCHC 30.7 L RDW 16.0 H RDW Differential 59.2 H Plt Count 212 MPV 12.6 H Immature Gran % (Auto) 0.200 Neut % (Auto) 77.1 H Lymph % (Auto) 14.9 L [place] % (Auto) 6.9 Eos % (Auto) 0.5 Baso % (Auto) 0.4 Absolute Neuts (auto) 7.8 H Absolute Lymphs (auto) 1.50 Total Counted Not Reportable Sodium 146 H Potassium 3.4 L Chloride 108 H Carbon Dioxide 31.0 Anion Gap 7 BUN 25 H Creatinine 0.57 L Estim Creat Clear Calc 74.01 Est GFR (MDRD) Af Amer 182 Est GFR (MDRD) Non-Af 150 BUN/Creatinine Ratio 43.6 H Glucose 364 H Calcium 9.0 POC Glucose 12/16/17 12/15/17 12/15/17 05:09 23:55 22:21 POC Glucose 358 H 190 H 186 H 12/15/17 12/15/17 17:23 11:58 POC Glucose 231 H 292 H Medical Necessity - Tobacco Use Smoking Status: Former smoker Tobacco Use: Cigarettes Assessment/Plan All Active Problems (Last Updated 12/15/17 @ 11:14 by Jocelyn Machuca, INSURANCE LOSS ASSESSOR-C) Fall (Acute) Alcohol intoxication (Resolved) Acute respiratory failure (Acute) Aspiration pneumonia (Acute) Acute and chronic respiratory failure with hypoxia (Acute) FUO (fever of unknown origin) (Acute) Demand ischemia (Resolved) Systolic CHF, acute (Acute) Acute respiratory failure with hypoxia and hypercarbia (Resolved) Multifocal community-acquired pneumonia (Resolved) Severe sepsis (Resolved) RECOMMENDATIONS 1. Wean oxygen supplementation to keep saturations 88% or above 2. Encourage incentive spirometer/Acapella 3. Continue PT/OT 4. Continue bronchodilators and Pulmicort 5. Continue broad-spectrum antibiotics 6. Continue vest therapy in conjunction with aerosols 7. Maintain strict aspiration precautions 8. Obtain sputum culture today 9. Avoid sedating medications IMPRESSIONS 1. Acute on chronic hypoxic respiratory failure Likely secondary to recurrent aspiration pneumonia. Patient has been weaned to 2 L while on TCU, had abrupt decline in respiratory status. Chest x-ray relatively unremarkable, CT of the chest does have evidence of right upper lobe consolidation, reviewed with Dr. Swain. No evidence of PE but suboptimal contrast. The patient is on broad-spectrum antibiotics, continue pending infectious workup. Patient does have a PICC line that appears intact without any evidence of infection. MRSA nasal was negative. Patient having difficulty with effective incentive spirometer/Acapella, improved with vest therapy. Vest therapy in conjunction with aerosols. Wean oxygen supplementation and maintain aspiration precautions. 2. Dysphagia Chronic, has PEG tube with nutritional supplement. Consult speech for ongoing therapy. Consult nutrition for recommendations of tube feeds, patient does have elevated blood sugars. Adjust insulin as indicated. 3. History of tobacco abuse and self-reported COPD Patient has not smoked several months, would likely be okay to discontinue his nicotine patch. No pulmonary function tests available. 4. HTN/morbid obesity/CHF/type 2 diabetes/history of CABG/BPH/GERD/depression/JIM/subarachnoid, subdural, and intraparenchymal hemorrhage/TBI Complicates care, management, recovery, and prognosis. Continue home medications via PEG tube as indicated. This note was generated with [employer] software. It may contain incorrect words, spelling, and punctuation that were not noted in checking the note before signing.
--- NOTE | 2017-12-16 10:47 | PN_ITS ---
Patient Problems: Active and Suspected Problems (Last Updated 12/15/17 @ 11:14 by Jocelyn Machuca , LIGHTNING ROD INSTALLER-C) Acute and chronic respiratory failure with hypoxia (Acute) Subjective: Patient was seen and examined. His is at the bedside. She reports he was just alert and conversing, he seems fatigued at this time. Also had a large amount of expectorated mucus, she was unaware we needed a sample so this was thrown away. Kyaw does complain of some shortness of breath and coarse cough. Objective: Recent lab and culture data reviewed. Blood cultures from 12/13 are pending. Urine strep/Legionella antigens were negative. Patient remains afebrile and hemodynamically stable. He is maintaining appropriate saturations on 3 L of oxygen, weaned from 4 L. - Physical Exam General: Alert, Oriented x3, Cooperative, No apparent distress HEENT: Atraumatic, Normocephalic Oral: Moist Mucosa, No Gingival or Mucosal Lesions/ Ulcerations Neck: Supple, No Nodes, Thyroid Normal Size and Texture Lungs: No wheeze, Diminished, Rales, Rhonchi, - - Symmetric expansion, no tachypnea or accessory muscle use Cardiovascular: Regular rate, Regular Rhythm, Normal S1, Normal S2 Abdomen: Bowel Sounds Present, Soft, Non Tender, Obese Extremities: No cyanosis, No edema Skin: - - No changes from previous Musculoskeletal: No Tenderness to Palpation of Joints or Extremities Lymphatic: No Cervical, Supraclavicular, or Inguinal Adenopathy Neurological: - - Semi-lethargic, states was just alert and conversing. Psych/Mental Status: - - Calm, cooperative Vital Signs Temp Pulse Resp BP Pulse Ox 99.0 F 90 18 97/50 L 96 12/16/17 09:22 12/16/17 09:22 12/16/17 09:22 12/16/17 09:22 12/16/17 09:22 Oxygen Flow Rate (L/min) 3 Oxygen Delivery Method Nasal Cannula Weight: 246 lb 11.156 oz Body Mass Index (BMI) 35.3 Intake and Output for Last 24 Hours 12/14/17 12/15/17 12/16/17 23:59 23:59 23:59 Intake Total 5135 / 5135 2896 / 2896 1743 / 1743 Balance 5135 / 5135 2896 / 2896 1743 / 1743 Laboratory Tests Past 24 Hrs 12/16/17 12/16/17 04:55 04:55 WBC 10.1 RBC 3.40 L Hgb 10.8 L Hct 35.2 L MCV 103.5 H MCH 31.8 MCHC 30.7 L RDW 16.0 H RDW Differential 59.2 H Plt Count 212 MPV 12.6 H Immature Gran % (Auto) 0.200 Neut % (Auto) 77.1 H Lymph % (Auto) 14.9 L [place] % (Auto) 6.9 Eos % (Auto) 0.5 Baso % (Auto) 0.4 Absolute Neuts (auto) 7.8 H Absolute Lymphs (auto) 1.50 Total Counted Not Reportable Sodium 146 H Potassium 3.4 L Chloride 108 H Carbon Dioxide 31.0 Anion Gap 7 BUN 25 H Creatinine 0.57 L Estim Creat Clear Calc 74.01 Est GFR (MDRD) Af Amer 182 Est GFR (MDRD) Non-Af 150 BUN/Creatinine Ratio 43.6 H Glucose 364 H Calcium 9.0 POC Glucose 12/16/17 12/15/17 12/15/17 05:09 23:55 22:21 POC Glucose 358 H 190 H 186 H 12/15/17 12/15/17 17:23 11:58 POC Glucose 231 H 292 H Medical Necessity - Tobacco Use Smoking Status: Former smoker Tobacco Use: Cigarettes Assessment/Plan All Active Problems (Last Updated 12/15/17 @ 11:14 by Jocelyn Machuca, LIGHTNING ROD INSTALLER-C) Fall (Acute) Alcohol intoxication (Resolved) Acute respiratory failure (Acute) Aspiration pneumonia (Acute) Acute and chronic respiratory failure with hypoxia (Acute) FUO (fever of unknown origin) (Acute) Demand ischemia (Resolved) Systolic CHF, acute (Acute) Acute respiratory failure with hypoxia and hypercarbia (Resolved) Multifocal community-acquired pneumonia (Resolved) Severe sepsis (Resolved) RECOMMENDATIONS 1. Wean oxygen supplementation to keep saturations 88% or above 2. Encourage incentive spirometer/Acapella 3. Continue PT/OT 4. Continue bronchodilators and Pulmicort 5. Continue broad-spectrum antibiotics 6. Continue vest therapy in conjunction with aerosols 7. Maintain strict aspiration precautions 8. Obtain sputum culture today 9. Avoid sedating medications IMPRESSIONS 1. Acute on chronic hypoxic respiratory failure Likely secondary to recurrent aspiration pneumonia. Patient has been weaned to 2 L while on TCU, had abrupt decline in respiratory status. Chest x-ray relatively unremarkable, CT of the chest does have evidence of right upper lobe consolidation, reviewed with Dr. wSain. No evidence of PE but suboptimal contrast. The patient is on broad-spectrum antibiotics, continue pending infectious workup. Patient does have a PICC line that appears intact without any evidence of infection. MRSA nasal was negative. Patient having difficulty with effective incentive spirometer/Acapella, improved with vest therapy. Vest therapy in conjunction with aerosols. Wean oxygen supplementation and maintain aspiration precautions. 2. Dysphagia Chronic, has PEG tube with nutritional supplement. Consult speech for ongoing therapy. Consult nutrition for recommendations of tube feeds, patient does have elevated blood sugars. Adjust insulin as indicated. 3. History of tobacco abuse and self-reported COPD Patient has not smoked several months, would likely be okay to discontinue his nicotine patch. No pulmonary function tests available. 4. HTN/morbid obesity/CHF/type 2 diabetes/history of CABG/BPH/GERD/depression/ JIM/subarachnoid, subdural, and intraparenchymal hemorrhage/TBI Complicates care, management, recovery, and prognosis. Continue home medications via PEG tube as indicated. This note was generated with [employer] software. It may contain incorrect words, spelling, and punctuation that were not noted in checking the note before signing.
[2017-12-16 11:21] LABS: Bedside Glucose 288 mg/dL (70-110)
--- NOTE | 2017-12-16 12:46 | PCM.PROGNOTE ---
<Lula Ledesma - Last Filed: 12/16/17 13:01> Patient Problems: Active and Suspected Problems (Last Updated 12/15/17 @ 11:14 by Jocelyn Machuca, KELLY-C) Acute and chronic respiratory failure with hypoxia (Acute) Subjective: Patient seen and examined. No acute events overnight. Patient continues to feel improved. at bedside. States patient has had increased productive cough following vest therapy. - Physical Exam General: Alert, Oriented x3, Cooperative, No apparent distress HEENT: Atraumatic, PERRLA, EOMI, Normocephalic Oral: Moist Mucosa Neck: Supple, No JVD, Negative Carotid Bruits Lungs: Diminished, Rales, Rhonchi Cardiovascular: Regular rate, Regular Rhythm, Normal S1, Normal S2 Abdomen: Bowel Sounds Present, Soft, Non Tender, Non-Distended, Obese, - - PEG tube site intact. Extremities: No clubbing, No cyanosis, No edema, Capillary Refill Less than 3 Seconds Skin: No rashes, - - Abrasion bridge of nose. Coccyx pressure ulcer, dressing dry and intact. Musculoskeletal: No Tenderness to Palpation of Joints or Extremities Neurological: Cranial nerves II-XII grossly intact, Neuro grossly intact Psych/Mental Status: Normal Affect, Appropriate Vital Signs Temp Pulse Resp BP Pulse Ox 99.0 F 93 18 97/50 L 96 12/16/17 09:22 12/16/17 11:22 12/16/17 09:22 12/16/17 09:22 12/16/17 09:22 Oxygen Flow Rate (L/min) 3 Oxygen Delivery Method Nasal Cannula Weight: 111.9 kg Body Mass Index (BMI) 35.3 Intake and Output for Last 24 Hours 12/14/17 12/15/17 12/16/17 23:59 23:59 23:59 Intake Total 5135 / 5135 2896 / 2896 2008 Balance 5135 / 5135 2896 / 2896 2008 Laboratory Tests Past 24 Hrs 12/16/17 12/16/17 04:55 04:55 WBC 10.1 RBC 3.40 L Hgb 10.8 L Hct 35.2 L MCV 103.5 H MCH 31.8 MCHC 30.7 L RDW 16.0 H RDW Differential 59.2 H Plt Count 212 MPV 12.6 H Immature Gran % (Auto) 0.200 Neut % (Auto) 77.1 H Lymph % (Auto) 14.9 L [place] % (Auto) 6.9 Eos % (Auto) 0.5 Baso % (Auto) 0.4 Absolute Neuts (auto) 7.8 H Absolute Lymphs (auto) 1.50 Total Counted Not Reportable Sodium 146 H Potassium 3.4 L Chloride 108 H Carbon Dioxide 31.0 Anion Gap 7 BUN 25 H Creatinine 0.57 L Estim Creat Clear Calc 74.01 Est GFR (MDRD) Af Amer 182 Est GFR (MDRD) Non-Af 150 BUN/Creatinine Ratio 43.6 H Glucose 364 H Calcium 9.0 POC Glucose 12/16/17 12/16/17 12/15/17 10:57 05:09 23:55 POC Glucose 288 H 358 H 190 H 12/15/17 12/15/17 22:21 17:23 POC Glucose 186 H 231 H Medical Necessity - Tobacco Use Smoking Status: Former smoker Tobacco Use: Cigarettes Assessment/Plan All Active Problems (Last Updated 12/15/17 @ 11:14 by Jocelyn Machuca, KELLY-C) Fall (Acute) Alcohol intoxication (Resolved) Acute respiratory failure (Acute) Aspiration pneumonia (Acute) Acute and chronic respiratory failure with hypoxia (Acute) FUO (fever of unknown origin) (Acute) Demand ischemia (Resolved) Systolic CHF, acute (Acute) Acute respiratory failure with hypoxia and hypercarbia (Resolved) Multifocal community-acquired pneumonia (Resolved) Severe sepsis (Resolved) Patient is a 67-year-old male admitted 12/13/2017 from TCU due to increased dyspnea. He has a past medical history of CAD status post CABG and stents, chronic systolic CHF, COPD, JIM, type 2 diabetes mellitus, tobacco dependence, recent traumatic brain injury including intraparenchymal, subdural and subarachnoid hemorrhage secondary to fall while intoxicated with alcohol, recent right-sided CVA. 1. Acute on chronic hypoxic respiratory failure secondary to recurrent aspiration pneumonia- Pulmonary medicine following. Continue vest therapy. Obtain sputum for culture. Continue IV cefepime. Continue supplemental oxygen to maintain O2 at or above 90%. Remain n.p.o. Tube feed in place. ST consulted. Blood cultures pending. MRSA PCR negative. Vancomycin discontinued. 2. Recent traumatic brain injury/CVA-residual right-sided weakness, dysphasia. PT/OT/ST. S/p PEG tube. Rehab vs. TCU at [place]. 3. Coccyx pressure ulcer-present on admission. Wound RN consult. Frequent position changes. Continue Mepilex dressing. 4. CAD status post CABG and stents-continue aspirin, metoprolol. Reported allergy to statin. 5. Type 2 diabetes [id number] before meals at bedtime with sliding scale insulin. Blood glucose stable. 6. Chronic systolic CHF-stable, continue Lasix and lisinopril regimen. 7. Hypertension-stable, continue current regimen. 8. COPD-no acute exacerbation. Continue albuterol and DuoNeb aerosols. 9. Obstructive sleep apnea-continue CPAP nightly, as needed. 10. Tobacco dependence-nicotine replacement patch discontinued. 11. BPH-continue Flomax regimen. DVT prophylaxis-SCDs [place] planning: Rehab vs. TCU pending pre-cert. This patient was seen by SB Penny under the supervision of Dr. Felix. <Darnell Felix - Last Filed: 12/16/17 14:53> - Physical Exam General: Alert, Oriented x3, Cooperative, No apparent distress HEENT: Atraumatic, PERRLA, EOMI, Normocephalic Oral: Moist Mucosa Lungs: Diminished, Rhonchi Cardiovascular: Regular rate, Regular Rhythm, Normal S1, Normal S2 Abdomen: Bowel Sounds Present, Soft, Non Tender, Non-Distended Extremities: No edema, No Calf Tenderness Skin: - Psych/Mental Status: Normal Affect, Appropriate Vital Signs Temp Pulse Resp BP Pulse Ox 37.2 C 89 18 97/50 L 94 12/16/17 09:22 12/16/17 13:25 12/16/17 12:49 12/16/17 09:22 12/16/17 12:49 Oxygen Flow Rate (L/min) 3 Oxygen Delivery Method Nasal Cannula Weight: 111.9 kg Body Mass Index (BMI) 35.3 Intake and Output for Last 24 Hours 12/14/17 12/15/17 12/16/17 23:59 23:59 23:59 Intake Total 2086 / 5125 2896 / 2896 2008 Balance 5135 / 5105 2896 / 2896 2008 Microbiology Past 72 Hours 12/16/17 12:32 Gram Stain - Final Sputum, Expectorated/Coughed Laboratory Tests Past 24 Hrs 12/16/17 12/16/17 04:55 04:55 WBC 10.1 RBC 3.40 L Hgb 10.8 L Hct 35.2 L MCV 103.5 H MCH 31.8 MCHC 30.7 L RDW 16.0 H RDW Differential 59.2 H Plt Count 212 MPV 12.6 H Immature Gran % (Auto) 0.200 Neut % (Auto) 77.1 H Lymph % (Auto) 14.9 L [place] % (Auto) 6.9 Eos % (Auto) 0.5 Baso % (Auto) 0.4 Absolute Neuts (auto) 7.8 H Absolute Lymphs (auto) 1.50 Total Counted Not Reportable Sodium 146 H Potassium 3.4 L Chloride 108 H Carbon Dioxide 31.0 Anion Gap 7 BUN 25 H Creatinine 0.57 L Estim Creat Clear Calc 74.01 Est GFR (MDRD) Af Amer 182 Est GFR (MDRD) Non-Af 150 BUN/Creatinine Ratio 43.6 H Glucose 364 H Calcium 9.0 POC Glucose 12/16/17 12/16/17 12/15/17 10:57 05:09 23:55 POC Glucose 288 H 358 H 190 H 12/15/17 12/15/17 22:21 17:23 POC Glucose 186 H 231 H Assessment/Plan Patient seen and examined independently. Data reviewed. I agree with the above note by the nurse practitioner. 1. acute on chronic hypoxic resp failure improved secondary to pneumonia 2. presumed gram negative pneumonia cefepime and vanc pulm toilet pulmonology on consult vest therapy 3. TBI after falling down stairs while intoxicated w ICH, SAH, SDH, IVH. right sided weakness SNF/rehab upon discharge 4. Dysphagia s/p PEG speech therapy. 5. DVT proph: SCDs, DC lovenox given TBI 6. CAD. ASA and metoprolol. Code Visit Inpatient E&M: 15256 Subs Hosp L2
--- NOTE | 2017-12-16 13:01 | PN_ITS ---
<Lula Ledesma - Last Filed: 12/16/17 13:01> Patient Problems: Active and Suspected Problems (Last Updated 12/15/17 @ 11:14 by Jocelyn Machuca , KELLY-C) Acute and chronic respiratory failure with hypoxia (Acute) Subjective: Patient seen and examined. No acute events overnight. Patient continues to feel improved. at bedside. States patient has had increased productive cough following vest therapy. - Physical Exam General: Alert, Oriented x3, Cooperative, No apparent distress HEENT: Atraumatic, PERRLA, EOMI, Normocephalic Oral: Moist Mucosa Neck: Supple, No JVD, Negative Carotid Bruits Lungs: Diminished, Rales, Rhonchi Cardiovascular: Regular rate, Regular Rhythm, Normal S1, Normal S2 Abdomen: Bowel Sounds Present, Soft, Non Tender, Non-Distended, Obese, - - PEG tube site intact. Extremities: No clubbing, No cyanosis, No edema, Capillary Refill Less than 3 Seconds Skin: No rashes, - - Abrasion bridge of nose. Coccyx pressure ulcer, dressing dry and intact. Musculoskeletal: No Tenderness to Palpation of Joints or Extremities Neurological: Cranial nerves II-XII grossly intact, Neuro grossly intact Psych/Mental Status: Normal Affect, Appropriate Vital Signs Temp Pulse Resp BP Pulse Ox 99.0 F 93 18 97/50 L 96 12/16/17 09:22 12/16/17 11:22 12/16/17 09:22 12/16/17 09:22 12/16/17 09:22 Oxygen Flow Rate (L/min) 3 Oxygen Delivery Method Nasal Cannula Weight: 111.9 kg Body Mass Index (BMI) 35.3 Intake and Output for Last 24 Hours 12/14/17 12/15/17 12/16/17 23:59 23:59 23:59 Intake Total 5135 / 5135 2896 / 2896 2008 Balance 5135 / 5135 2896 / 2896 2008 Laboratory Tests Past 24 Hrs 12/16/17 12/16/17 04:55 04:55 WBC 10.1 RBC 3.40 L Hgb 10.8 L Hct 35.2 L MCV 103.5 H MCH 31.8 MCHC 30.7 L RDW 16.0 H RDW Differential 59.2 H Plt Count 212 MPV 12.6 H Immature Gran % (Auto) 0.200 Neut % (Auto) 77.1 H Lymph % (Auto) 14.9 L [place] % (Auto) 6.9 Eos % (Auto) 0.5 Baso % (Auto) 0.4 Absolute Neuts (auto) 7.8 H Absolute Lymphs (auto) 1.50 Total Counted Not Reportable Sodium 146 H Potassium 3.4 L Chloride 108 H Carbon Dioxide 31.0 Anion Gap 7 BUN 25 H Creatinine 0.57 L Estim Creat Clear Calc 74.01 Est GFR (MDRD) Af Amer 182 Est GFR (MDRD) Non-Af 150 BUN/Creatinine Ratio 43.6 H Glucose 364 H Calcium 9.0 POC Glucose 12/16/17 12/16/17 12/15/17 10:57 05:09 23:55 POC Glucose 288 H 358 H 190 H 12/15/17 12/15/17 22:21 17:23 POC Glucose 186 H 231 H Medical Necessity - Tobacco Use Smoking Status: Former smoker Tobacco Use: Cigarettes Assessment/Plan All Active Problems (Last Updated 12/15/17 @ 11:14 by Jocelyn Machuca, KELLY-C) Fall (Acute) Alcohol intoxication (Resolved) Acute respiratory failure (Acute) Aspiration pneumonia (Acute) Acute and chronic respiratory failure with hypoxia (Acute) FUO (fever of unknown origin) (Acute) Demand ischemia (Resolved) Systolic CHF, acute (Acute) Acute respiratory failure with hypoxia and hypercarbia (Resolved) Multifocal community-acquired pneumonia (Resolved) Severe sepsis (Resolved) Patient is a 67-year-old male admitted 12/13/2017 from TCU due to increased dyspnea. He has a past medical history of CAD status post CABG and stents, chronic systolic CHF, COPD, JIM, type 2 diabetes mellitus, tobacco dependence, recent traumatic brain injury including intraparenchymal, subdural and subarachnoid hemorrhage secondary to fall while intoxicated with alcohol, recent right-sided CVA. 1. Acute on chronic hypoxic respiratory failure secondary to recurrent aspiration pneumonia- Pulmonary medicine following. Continue vest therapy. Obtain sputum for culture. Continue IV cefepime. Continue supplemental oxygen to maintain O2 at or above 90%. Remain n.p.o. Tube feed in place. ST consulted. Blood cultures pending. MRSA PCR negative. Vancomycin discontinued. 2. Recent traumatic brain injury/CVA-residual right-sided weakness, dysphasia. PT/OT/ST. S/p PEG tube. Rehab vs. TCU at [place]. 3. Coccyx pressure ulcer-present on admission. Wound RN consult. Frequent position changes. Continue Mepilex dressing. 4. CAD status post CABG and stents-continue aspirin, metoprolol. Reported allergy to statin. 5. Type 2 diabetes [id number] before meals at bedtime with sliding scale insulin. Blood glucose stable. 6. Chronic systolic CHF-stable, continue Lasix and lisinopril regimen. 7. Hypertension-stable, continue current regimen. 8. COPD-no acute exacerbation. Continue albuterol and DuoNeb aerosols. 9. Obstructive sleep apnea-continue CPAP nightly, as needed. 10. Tobacco dependence-nicotine replacement patch discontinued. 11. BPH-continue Flomax regimen. DVT prophylaxis-SCDs [place] planning: Rehab vs. TCU pending pre-cert. This patient was seen by SB Penny under the supervision of Dr. Felix. <Darnell Felix - Last Filed: 12/16/17 14:53> - Physical Exam General: Alert, Oriented x3, Cooperative, No apparent distress HEENT: Atraumatic, PERRLA, EOMI, Normocephalic Oral: Moist Mucosa Lungs: Diminished, Rhonchi Cardiovascular: Regular rate, Regular Rhythm, Normal S1, Normal S2 Abdomen: Bowel Sounds Present, Soft, Non Tender, Non-Distended Extremities: No edema, No Calf Tenderness Skin: - Psych/Mental Status: Normal Affect, Appropriate Vital Signs Temp Pulse Resp BP Pulse Ox 37.2 C 89 18 97/50 L 94 12/16/17 09:22 12/16/17 13:25 12/16/17 12:49 12/16/17 09:22 12/16/17 12:49 Oxygen Flow Rate (L/min) 3 Oxygen Delivery Method Nasal Cannula Weight: 111.9 kg Body Mass Index (BMI) 35.3 Intake and Output for Last 24 Hours 12/14/17 12/15/17 12/16/17 23:59 23:59 23:59 Intake Total 8283 / 5182 2896 / 2896 2008 Balance 5135 / 5194 2896 / 2896 2008 Microbiology Past 72 Hours 12/16/17 12:32 Gram Stain - Final Sputum, Expectorated/Coughed Laboratory Tests Past 24 Hrs 12/16/17 12/16/17 04:55 04:55 WBC 10.1 RBC 3.40 L Hgb 10.8 L Hct 35.2 L MCV 103.5 H MCH 31.8 MCHC 30.7 L RDW 16.0 H RDW Differential 59.2 H Plt Count 212 MPV 12.6 H Immature Gran % (Auto) 0.200 Neut % (Auto) 77.1 H Lymph % (Auto) 14.9 L [place] % (Auto) 6.9 Eos % (Auto) 0.5 Baso % (Auto) 0.4 Absolute Neuts (auto) 7.8 H Absolute Lymphs (auto) 1.50 Total Counted Not Reportable Sodium 146 H Potassium 3.4 L Chloride 108 H Carbon Dioxide 31.0 Anion Gap 7 BUN 25 H Creatinine 0.57 L Estim Creat Clear Calc 74.01 Est GFR (MDRD) Af Amer 182 Est GFR (MDRD) Non-Af 150 BUN/Creatinine Ratio 43.6 H Glucose 364 H Calcium 9.0 POC Glucose 12/16/17 12/16/17 12/15/17 10:57 05:09 23:55 POC Glucose 288 H 358 H 190 H 12/15/17 12/15/17 22:21 17:23 POC Glucose 186 H 231 H Assessment/Plan Patient seen and examined independently. Data reviewed. I agree with the above note by the nurse practitioner. 1. acute on chronic hypoxic resp failure * improved * secondary to pneumonia 2. presumed gram negative pneumonia * cefepime and vanc * pulm toilet * pulmonology on consult * vest therapy 3. 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 * right sided weakness * SNF/rehab upon discharge 4. Dysphagia * s/p PEG * speech therapy. 5. DVT proph: SCDs, DC lovenox given TBI 6. CAD. ASA and metoprolol. Code Visit Inpatient E&M: 54024 Subs Hosp L2
[2017-12-16 17:16] LABS: Bedside Glucose 243 mg/dL (70-110)
[2017-12-16] MEDS: Pivot 1.5 Cal 1,000 ML 108 ML GT (20:06)
[2017-12-16] MEDS: Amitriptyline 100 MG Tablet GT (21:35)
[2017-12-16] MEDS: Tamsulosin HCl 0.4 MG Capsule PO (21:36)
[2017-12-16] MEDS: Pramipexole Di-HCl 0.25 MG Tablet GT (21:38)
[2017-12-16] MEDS: Pravastatin 80 MG Tablet PO (21:39)
[2017-12-16] MEDS: traMADol 50 MG Tablet GT (22:59)
[2017-12-16 23:26] LABS: Bedside Glucose 267 mg/dL (70-110)
[2017-12-17] VITALS (16 sets, daily range): BP systolic 115–158; BP diastolic 57–78; PULSE 78–105; RESP 16–20; TEMP 36.6–37.1; O2SAT 94–97
[2017-12-17] MEDS: Insulin Lispro 100 UNIT/ML INSULN.PEN SQ ×5 (00:43→23:42)
[2017-12-17 00:46] LABS: Bedside Glucose 369 mg/dL (70-110)
[2017-12-17 05:12] LABS: Hematocrit 35.4 % (40-54); Hemoglobin 10.9 g/dl (13.0-16.5); Mean Corp Hgb Conc 30.8 g/gl (32-36); Mean Corpuscular Hgb 31.7 pg (27.0-32.0); Mean Corpuscular Volume 102.9 fL (80-94); Mean Platelet Vol. 12.9 fl (6.2-12.0); Platelet Count 190 K/mm3 (150-450); RBC Distribution Width CV 15.8 % (11.6-14.6); RBC Distribution Width SD 58.7 fl (35.1-43.9); Red Blood Count 3.44 M/mm3 (4.6-6.2); White Blood Count 9.4 K/mm3 (4.4-11.0)
[2017-12-17 05:18] LABS: Scan Indicated on CBC? Y/N NO
[2017-12-17 05:21] LABS: Anion Gap 5 (5-15); BUN 33 mg/dL (7-18); BUN/Creat Ratio 53.1 RATIO (10-20); Calcium,Total 8.9 mg/dL (8.5-10.1); Chloride 107 mmol/L (98-107); Creatinine, Serum 0.62 mg/dL (0.70-1.30); EST Glomerular Filtration Rate 137 mL/min (>60); Est Glom Filt Rate - Afr Amer 166 mL/min (>60); Estimated Creatinine Clearance 74.01 ml/min; Glucose 410 mg/dL (74-106); Potassium 3.4 mmol/L (3.5-5.1); Sodium Level 146 mmol/L (136-145)
[2017-12-17] MEDS: Ipratropium/Albuterol Sulfate 3 ML AMPUL.NEB INHALATION ×2 (06:46→13:08)
[2017-12-17] MEDS: Budesonide Respules 0.5 MG/2 ML AMPUL.NEB. INHALATION (06:46)
[2017-12-17] MEDS: Metoprolol Tartrate 50 MG Tablet 150 MG GT ×3 (07:13→23:52)
[2017-12-17] MEDS: Pivot 1.5 Cal 1,000 ML 108 ML GT ×2 (07:21→19:50)
[2017-12-17 07:36] LABS: Bedside Glucose 346 mg/dL (70-110)
--- NOTE | 2017-12-17 08:15 | PCM.PROGNOTE ---
Patient Problems: Active and Suspected Problems (Last Updated 12/15/17 @ 11:14 by Jocelyn Machuca, FLAVOR MAKER-C) Acute and chronic respiratory failure with hypoxia (Acute) Subjective: Patient did well overnight. Patient was on CPAP therapy and tolerated this well. Vest therapy has been initiated and patient reports good response. Patient remains on supplemental oxygen. Nursing reports elevated blood sugars overnight. Patient with no real complaints this morning. Patient tolerating tube feeds. - Physical Exam General: Alert, Cooperative, No apparent distress, - - Appears older than stated age. No accessory muscle use noted. HEENT: Atraumatic, PERRLA, EOMI, Normocephalic, - - No scleral injection or icterus noted. Oral: Moist Mucosa, No Gingival or Mucosal Lesions/ Ulcerations Neck: Supple, No JVD, No Nodes, Trachea Midline Lungs: No wheeze, Diminished, Rhonchi - Continues to improve, - - Symmetric expansion Cardiovascular: Regular rate, Regular Rhythm, Normal S1, Normal S2, No murmurs, No rub noted, No Gallop Abdomen: Bowel Sounds Present, Soft, Non Tender, Non-Distended, Obese Extremities: No clubbing, No cyanosis, No edema, Capillary Refill Less than 3 Seconds Skin: No rashes, No breakdown Musculoskeletal: No Tenderness to Palpation of Joints or Extremities Lymphatic: No Cervical, Supraclavicular, or Inguinal Adenopathy Neurological: - - Neurologic exam is grossly unchanged compared to previous. Patient is alert and interactive. Psych/Mental Status: Normal Affect Vital Signs Temp Pulse Resp BP Pulse Ox 36.9 C 100 16 137/73 H 97 12/17/17 06:55 12/17/17 07:16 12/17/17 06:55 12/17/17 06:55 12/17/17 06:55 Oxygen Flow Rate (L/min) 3 Oxygen Delivery Method Nasal Cannula Weight: 111.9 kg Body Mass Index (BMI) 35.3 Intake and Output for Last 24 Hours 12/15/17 12/16/17 12/17/17 23:59 23:59 23:59 Intake Total 2896 / 2896 2489 / 2489 1839 / 1839 Balance 2896 / 2896 2489 / 2489 1839 / 1839 Microbiology Past 72 Hours 12/16/17 12:32 Gram Stain - Final Sputum, Expectorated/Coughed Laboratory Tests Past 24 Hrs 12/17/17 12/17/17 04:55 04:55 WBC 9.4 RBC 3.44 L Hgb 10.9 L Hct 35.4 L MCV 102.9 H MCH 31.7 MCHC 30.8 L RDW 15.8 H RDW Differential 58.7 H Plt Count 190 MPV 12.9 H Sodium 146 H Potassium 3.4 L Chloride 107 Carbon Dioxide 34.0 H Anion Gap 5 BUN 33 H Creatinine 0.62 L Estim Creat Clear Calc 74.01 Est GFR (MDRD) Af Amer 166 Est GFR (MDRD) Non-Af 137 BUN/Creatinine Ratio 53.1 H Glucose 410 H Calcium 8.9 POC Glucose 12/17/17 12/17/17 12/16/17 07:09 00:37 21:33 POC Glucose 346 H 369 H 267 H 12/16/17 12/16/17 16:51 10:57 POC Glucose 243 H 288 H Medical Necessity - Tobacco Use Smoking Status: Former smoker Tobacco Use: Cigarettes Assessment/Plan All Active Problems (Last Updated 12/15/17 @ 11:14 by Jocelyn Machuca, FLAVOR MAKER-C) Fall (Acute) Alcohol intoxication (Resolved) Acute respiratory failure (Acute) Aspiration pneumonia (Acute) Acute and chronic respiratory failure with hypoxia (Acute) FUO (fever of unknown origin) (Acute) Demand ischemia (Resolved) Systolic CHF, acute (Acute) Acute respiratory failure with hypoxia and hypercarbia (Resolved) Multifocal community-acquired pneumonia (Resolved) Severe sepsis (Resolved) RECOMMENDATIONS 1. Wean oxygen supplementation to keep saturations 88% or above 2. Encourage incentive spirometer/Acapella/Vest 3. Continue PT/OT 4. Continue bronchodilators and Pulmicort 5. Antibiotics per primary service 6. Increase insulin, basal and sliding scale 7. Maintain strict aspiration precautions IMPRESSIONS 1. Acute on chronic hypoxic respiratory failure Patient appears to be responding to aggressive pulmonary toileting measures. Patient is currently on broad-spectrum antibiotics, but cultures have been no growth to date. Patient does have a weak cough secondary to neurologic condition. We will continue with aggressive pulmonary toileting. Wean oxygen as tolerated. Continue with Pulmicort therapy. 2. Dysphagia Chronic, has PEG tube with nutritional supplement. Consult speech for ongoing therapy. Nutrition providing recommendations of tube feeds, patient does have elevated blood sugars. Adjust insulin as indicated. 3. History of tobacco abuse and self-reported COPD Patient has not smoked several months, would likely be okay to discontinue his nicotine patch. No pulmonary function tests available. 4. HTN/morbid obesity/CHF/type 2 diabetes/history of CABG/BPH/GERD/depression/JIM/subarachnoid, subdural, and intraparenchymal hemorrhage/TBI Complicates care, management, recovery, and prognosis. Continue home medications via PEG tube as indicated. Increased basal and sliding scale insulin today. Patient appears to have responded to reinitiation of baseline Lasix therapy. This note was generated with [employer] dictation software. It may contain incorrect words, spelling, and punctuation that were not noted in checking the note before signing. Code Visit Inpatient E&M: 73745 Subs Hosp L3
[2017-12-17] MEDS: Magnesium Oxide 400 MG Tablet GT ×3 (08:20→17:35)
[2017-12-17] MEDS: Aspirin 81 MG TAB.CHEW GT (08:20)
--- NOTE | 2017-12-17 08:21 | PN_ITS ---
Patient Problems: Active and Suspected Problems (Last Updated 12/15/17 @ 11:14 by Jocelyn Machuca , MODERATE NEEDS TEACHER-C) Acute and chronic respiratory failure with hypoxia (Acute) Subjective: Patient did well overnight. Patient was on CPAP therapy and tolerated this well. Vest therapy has been initiated and patient reports good response. Patient remains on supplemental oxygen. Nursing reports elevated blood sugars overnight. Patient with no real complaints this morning. Patient tolerating tube feeds. - Physical Exam General: Alert, Cooperative, No apparent distress, - - Appears older than stated age. No accessory muscle use noted. HEENT: Atraumatic, PERRLA, EOMI, Normocephalic, - - No scleral injection or icterus noted. Oral: Moist Mucosa, No Gingival or Mucosal Lesions/ Ulcerations Neck: Supple, No JVD, No Nodes, Trachea Midline Lungs: No wheeze, Diminished, Rhonchi - Continues to improve, - - Symmetric expansion Cardiovascular: Regular rate, Regular Rhythm, Normal S1, Normal S2, No murmurs, No rub noted, No Gallop Abdomen: Bowel Sounds Present, Soft, Non Tender, Non-Distended, Obese Extremities: No clubbing, No cyanosis, No edema, Capillary Refill Less than 3 Seconds Skin: No rashes, No breakdown Musculoskeletal: No Tenderness to Palpation of Joints or Extremities Lymphatic: No Cervical, Supraclavicular, or Inguinal Adenopathy Neurological: - - Neurologic exam is grossly unchanged compared to previous. Patient is alert and interactive. Psych/Mental Status: Normal Affect Vital Signs Temp Pulse Resp BP Pulse Ox 36.9 C 100 16 137/73 H 97 12/17/17 06:55 12/17/17 07:16 12/17/17 06:55 12/17/17 06:55 12/17/17 06:55 Oxygen Flow Rate (L/min) 3 Oxygen Delivery Method Nasal Cannula Weight: 111.9 kg Body Mass Index (BMI) 35.3 Intake and Output for Last 24 Hours 12/15/17 12/16/17 12/17/17 23:59 23:59 23:59 Intake Total 2896 / 2896 2489 / 2489 1839 / 1839 Balance 2896 / 2896 2489 / 2489 1839 / 1839 Microbiology Past 72 Hours 12/16/17 12:32 Gram Stain - Final Sputum, Expectorated/Coughed Laboratory Tests Past 24 Hrs 12/17/17 12/17/17 04:55 04:55 WBC 9.4 RBC 3.44 L Hgb 10.9 L Hct 35.4 L MCV 102.9 H MCH 31.7 MCHC 30.8 L RDW 15.8 H RDW Differential 58.7 H Plt Count 190 MPV 12.9 H Sodium 146 H Potassium 3.4 L Chloride 107 Carbon Dioxide 34.0 H Anion Gap 5 BUN 33 H Creatinine 0.62 L Estim Creat Clear Calc 74.01 Est GFR (MDRD) Af Amer 166 Est GFR (MDRD) Non-Af 137 BUN/Creatinine Ratio 53.1 H Glucose 410 H Calcium 8.9 POC Glucose 12/17/17 12/17/17 12/16/17 07:09 00:37 21:33 POC Glucose 346 H 369 H 267 H 12/16/17 12/16/17 16:51 10:57 POC Glucose 243 H 288 H Medical Necessity - Tobacco Use Smoking Status: Former smoker Tobacco Use: Cigarettes Assessment/Plan All Active Problems (Last Updated 12/15/17 @ 11:14 by Jocelyn Machuca, MODERATE NEEDS TEACHER-C) Fall (Acute) Alcohol intoxication (Resolved) Acute respiratory failure (Acute) Aspiration pneumonia (Acute) Acute and chronic respiratory failure with hypoxia (Acute) FUO (fever of unknown origin) (Acute) Demand ischemia (Resolved) Systolic CHF, acute (Acute) Acute respiratory failure with hypoxia and hypercarbia (Resolved) Multifocal community-acquired pneumonia (Resolved) Severe sepsis (Resolved) RECOMMENDATIONS 1. Wean oxygen supplementation to keep saturations 88% or above 2. Encourage incentive spirometer/Acapella/Vest 3. Continue PT/OT 4. Continue bronchodilators and Pulmicort 5. Antibiotics per primary service 6. Increase insulin, basal and sliding scale 7. Maintain strict aspiration precautions IMPRESSIONS 1. Acute on chronic hypoxic respiratory failure Patient appears to be responding to aggressive pulmonary toileting measures. Patient is currently on broad-spectrum antibiotics, but cultures have been no growth to date. Patient does have a weak cough secondary to neurologic condition. We will continue with aggressive pulmonary toileting. Wean oxygen as tolerated. Continue with Pulmicort therapy. 2. Dysphagia Chronic, has PEG tube with nutritional supplement. Consult speech for ongoing therapy. Nutrition providing recommendations of tube feeds, patient does have elevated blood sugars. Adjust insulin as indicated. 3. History of tobacco abuse and self-reported COPD Patient has not smoked several months, would likely be okay to discontinue his nicotine patch. No pulmonary function tests available. 4. HTN/morbid obesity/CHF/type 2 diabetes/history of CABG/BPH/GERD/ depression/JIM/subarachnoid, subdural, and intraparenchymal hemorrhage/TBI Complicates care, management, recovery, and prognosis. Continue home medications via PEG tube as indicated. Increased basal and sliding scale insulin today. Patient appears to have responded to reinitiation of baseline Lasix therapy. This note was generated with [employer] dictation software. It may contain incorrect words, spelling, and punctuation that were not noted in checking the note before signing. Code Visit Inpatient E&M: 73190 Subs Hosp L3
[2017-12-17] MEDS: Acetaminophen 650 MG/20 ML UDC GT (09:49)
--- NOTE | 2017-12-17 10:07 | CASEMGMT ---
CONTRERAS spoke with Yari and Noni and at this time patient is not appropriate for the 4th floor rehab unit. Yari started the pre-cert request this am for patient to go back to TCU at d/c. Plan: d/c back to TCU when ready and pending insurance approval. Nydia MADDEN MSW
[2017-12-17] MEDS: amLODIPine 10 MG Tablet PO (11:05)
[2017-12-17] MEDS: Furosemide 40 MG Tablet PO ×2 (11:05→17:35)
[2017-12-17] MEDS: Lisinopril 20 MG Tablet GT (11:06)
--- NOTE | 2017-12-17 11:26 | PCM.RX.CS ---
Consult Pharmacy has been consulted to manage selected antiobiotic: Vancomycin Type of Consult: New start Suspected Infection: Pneumonia Labs: Sodium 146 mmol/L (136-145) H 12/17/17 04:55 Potassium 3.4 mmol/L (3.5-5.1) L 12/17/17 04:55 Chloride 107 mmol/L (98-107) 12/17/17 04:55 Carbon Dioxide 34.0 mmol/L (21.0-32.0) H 12/17/17 04:55 Anion Gap 5 (5-15) 12/17/17 04:55 BUN 33 mg/dL (7-18) H 12/17/17 04:55 Creatinine 0.62 mg/dL (0.70-1.30) L 12/17/17 04:55 Est GFR (MDRD) Af Amer 166 mL/min (>60) 12/17/17 04:55 Est GFR (MDRD) Non-Af 137 mL/min (>60) 12/17/17 04:55 BUN/Creatinine Ratio 53.1 RATIO (10-20) H 12/17/17 04:55 Glucose 410 mg/dL (74-106) H 12/17/17 04:55 Vancomycin Trough 13.9 ug/mL (5.0-15.0) 12/15/17 01:45 Microbiology: Microbiology 12/16/17 12:32 Sputum, Expectorated/Coughed Gram Stain - Final 12/16/17 12:32 Sputum, Expectorated/Coughed Respiratory Culture - Preliminary Staphylococcus aureus Yeast Weight used for dosin kg Estimated Creatinine Clearance: 74 ml/min Goal Trough: 15-20 mcg/mL Pharmacy Plan for Drug Dosing: Recommend vancomycin per previous regimen [place] 1750mg IV q12h. Recommend no trough at this time until culture/sensitivity returns tomorrow. Pharmacy Service will continue to monitor and adjust dosing as required.
[2017-12-17] MEDS: AMANTADINE HCL 50 MG/5ML 100 MG GT (12:26)
[2017-12-17] MEDS: traMADol 50 MG Tablet GT (12:29)
[2017-12-17 12:30] LABS: Bedside Glucose 278 mg/dL (70-110)
--- NOTE | 2017-12-17 12:47 | PCM.PROGNOTE ---
<Julio Estrada - Last Filed: 12/17/17 12:47> Patient Problems: Active and Suspected Problems (Last Updated 12/15/17 @ 11:14 by Jocelyn Machuca, KELLY-C) Acute and chronic respiratory failure with hypoxia (Acute) Subjective: Pt does not feel SOB. He is very weak. He is able to speak with very weak voice. He struggles to have more than a whisper. No fever or chills. He and family are agreeable to TCU placement. - Physical Exam General: Alert, Oriented x3, Cooperative HEENT: Atraumatic, PERRLA, EOMI, Normocephalic Neck: Supple, No JVD, Negative Carotid Bruits Lungs: Diminished Cardiovascular: Regular rate, No murmurs Abdomen: Bowel Sounds Present, Soft, Non Tender Extremities: No edema, Capillary Refill Less than 3 Seconds Skin: No rashes, No breakdown Musculoskeletal: No Tenderness to Palpation of Joints or Extremities Neurological: Cranial nerves II-XII grossly intact Psych/Mental Status: Normal Affect, Appropriate, Alert and oriented to time, place, person, mood and affect Vital Signs Temp Pulse Resp BP Pulse Ox 98.7 F 80 18 123/57 H 97 12/17/17 12:35 12/17/17 12:35 12/17/17 12:35 12/17/17 12:35 12/17/17 12:35 Oxygen Flow Rate (L/min) 3 Oxygen Delivery Method Nasal Cannula Weight: 111.9 kg Body Mass Index (BMI) 35.3 Intake and Output for Last 24 Hours 12/15/17 12/16/17 12/17/17 23:59 23:59 23:59 Intake Total 2896 / 2896 2489 / 2489 2206 / 2206 Balance 2896 / 2896 2489 / 2489 2206 / 2206 Microbiology Past 72 Hours 12/16/17 12:32 Gram Stain - Final Sputum, Expectorated/Coughed Respiratory Culture - Preliminary Staphylococcus aureus Yeast Laboratory Tests Past 24 Hrs 12/17/17 12/17/17 04:55 04:55 WBC 9.4 RBC 3.44 L Hgb 10.9 L Hct 35.4 L MCV 102.9 H MCH 31.7 MCHC 30.8 L RDW 15.8 H RDW Differential 58.7 H Plt Count 190 MPV 12.9 H Sodium 146 H Potassium 3.4 L Chloride 107 Carbon Dioxide 34.0 H Anion Gap 5 BUN 33 H Creatinine 0.62 L Estim Creat Clear Calc 74.01 Est GFR (MDRD) Af Amer 166 Est GFR (MDRD) Non-Af 137 BUN/Creatinine Ratio 53.1 H Glucose 410 H Calcium 8.9 POC Glucose 12/17/17 12/17/17 12/17/17 12:21 07:09 00:37 POC Glucose 278 H 346 H 369 H 12/16/17 12/16/17 21:33 16:51 POC Glucose 267 H 243 H Medical Necessity - Tobacco Use Smoking Status: Former smoker Tobacco Use: Cigarettes Assessment/Plan All Active Problems (Last Updated 12/15/17 @ 11:14 by Jocelyn Machuca, CHROME PLATER-C) Fall (Acute) Alcohol intoxication (Resolved) Acute respiratory failure (Acute) Aspiration pneumonia (Acute) Acute and chronic respiratory failure with hypoxia (Acute) FUO (fever of unknown origin) (Acute) Demand ischemia (Resolved) Systolic CHF, acute (Acute) Acute respiratory failure with hypoxia and hypercarbia (Resolved) Multifocal community-acquired pneumonia (Resolved) Severe sepsis (Resolved) 1. Acute on chronic hypoxic respiratory failure 2/2 recurrent aspiration pna - conitnue speech therapy. Sputum with MRSA, on vanco (restarted) and cefipime. NPO. PEG feedings. Strep/legionella antigens neg. Blood cultures pending. Afebrile, no white count. Pulm following. 2. Dysphagia - 2/2 TBI fall down stairs with cerebral hemorrhages. ST. Peg feedings. 3. Coccyx pressure ulcer present on admission - wound care nursing following. 4. CAD - hx CABG, stents - continiue asa/bb/DANII inhibitor. statin allergy. 5. T2DM - fluctuant - insulins being increased while here. 6. Chronic systolic CHF-stable continue Lasix and DANII inhibitor 7. Hypertension-stable, continue current regimen 8. COPD with no acute exacerbation-continue aerosols 9. Obstructive sleep apnea-continue CPAP at night 10. Tobacco dependence-off patch 11. BPH-continue Flomax 12. Macrocytic anemia - stable. Check folate/b12. 13. Hypokalemia - repleted. DVT prophylaxis-SCDs Discharge planning: Not a candidate for rehab given his severe weakness, plans to go to TCU. Precert is pending. This patient was seen by Julio Estrada PA-C under the supervision of Doctor Isidro. <Darnell Felix - Last Filed: 12/17/17 13:56> Subjective: Feeling better. Breathing better. Coughing up some phlegm. - Physical Exam General: Alert, Cooperative HEENT: Atraumatic, PERRLA, EOMI Neck: No Nodes, Thyroid Normal Size and Texture Lungs: Diminished, - - coarse breath sounds bilaterally. Cardiovascular: Regular rate, Regular Rhythm, Normal S1, Normal S2, No murmurs Abdomen: Bowel Sounds Present, Soft, Non Tender, Non-Distended Extremities: No edema, No Calf Tenderness Skin: No rashes, No breakdown Psych/Mental Status: Normal Affect, Appropriate Vital Signs Temp Pulse Resp BP Pulse Ox 37.1 C 81 16 123/57 H 97 12/17/17 12:35 12/17/17 13:08 12/17/17 13:08 12/17/17 12:35 12/17/17 12:35 Oxygen Flow Rate (L/min) 3 Oxygen Delivery Method Nasal Cannula Weight: 111.9 kg Body Mass Index (BMI) 35.3 Intake and Output for Last 24 Hours 12/15/17 12/16/17 12/17/17 23:59 23:59 23:59 Intake Total 2896 / 2896 2489 / 2489 2206 / 2206 Balance 2896 / 2896 2489 / 2489 2206 / 2206 Microbiology Past 72 Hours 12/16/17 12:32 Gram Stain - Final Sputum, Expectorated/Coughed Respiratory Culture - Preliminary Staphylococcus aureus Yeast Laboratory Tests Past 24 Hrs 12/17/17 12/17/17 12/17/17 04:55 04:55 04:55 WBC 9.4 RBC 3.44 L Hgb 10.9 L Hct 35.4 L MCV 102.9 H MCH 31.7 MCHC 30.8 L RDW 15.8 H RDW Differential 58.7 H Plt Count 190 MPV 12.9 H Sodium 146 H Potassium 3.4 L Chloride 107 Carbon Dioxide 34.0 H Anion Gap 5 BUN 33 H Creatinine 0.62 L Estim Creat Clear Calc 74.01 Est GFR (MDRD) Af Amer 166 Est GFR (MDRD) Non-Af 137 BUN/Creatinine Ratio 53.1 H Glucose 410 H Calcium 8.9 Vitamin B12 Pending Folate 07/12/18 04:55 WBC RBC Hgb Hct MCV MCH MCHC RDW RDW Differential Plt Count MPV Sodium Potassium Chloride Carbon Dioxide Anion Gap BUN Creatinine Estim Creat Clear Calc Est GFR (MDRD) Af Amer Est GFR (MDRD) Non-Af BUN/Creatinine Ratio Glucose Calcium Vitamin B12 Folate Pending POC Glucose 12/17/17 12/17/17 12/17/17 12:21 07:09 00:37 POC Glucose 278 H 346 H 369 H 12/16/17 12/16/17 21:33 16:51 POC Glucose 267 H 243 H Assessment/Plan Patient seen and examined independently. Data reviewed. I agree with the above note by the physician showroom sales assistant. 1. acute on chronic hypoxic resp failure improved secondary to pneumonia Wean oxygen as tolerated 2. presumed gram negative pneumonia/aspiration number cefepime and vanc pulm toilet pulmonology on consult vest therapy Sputum positive for staph aureus 3. TBI after falling down stairs while intoxicated w ICH, SAH, SDH, IVH. right sided weakness SNF/rehab upon discharge 4. Dysphagia s/p PEG speech therapy. 5. DVT proph: SCDs, DC lovenox given TBI 6. CAD. ASA and metoprolol. Code Visit Inpatient E&M: 47640 Subs Hosp L2
--- NOTE | 2017-12-17 12:57 | PN_ITS ---
<Julio Estrada - Last Filed: 12/17/17 12:47> Patient Problems: Active and Suspected Problems (Last Updated 12/15/17 @ 11:14 by Jocelyn Machuca , KELLY-C) Acute and chronic respiratory failure with hypoxia (Acute) Subjective: Pt does not feel SOB. He is very weak. He is able to speak with very weak voice. He struggles to have more than a whisper. No fever or chills. He and family are agreeable to TCU placement. - Physical Exam General: Alert, Oriented x3, Cooperative HEENT: Atraumatic, PERRLA, EOMI, Normocephalic Neck: Supple, No JVD, Negative Carotid Bruits Lungs: Diminished Cardiovascular: Regular rate, No murmurs Abdomen: Bowel Sounds Present, Soft, Non Tender Extremities: No edema, Capillary Refill Less than 3 Seconds Skin: No rashes, No breakdown Musculoskeletal: No Tenderness to Palpation of Joints or Extremities Neurological: Cranial nerves II-XII grossly intact Psych/Mental Status: Normal Affect, Appropriate, Alert and oriented to time, place, person, mood and affect Vital Signs Temp Pulse Resp BP Pulse Ox 98.7 F 80 18 123/57 H 97 12/17/17 12:35 12/17/17 12:35 12/17/17 12:35 12/17/17 12:35 12/17/17 12:35 Oxygen Flow Rate (L/min) 3 Oxygen Delivery Method Nasal Cannula Weight: 111.9 kg Body Mass Index (BMI) 35.3 Intake and Output for Last 24 Hours 12/15/17 12/16/17 12/17/17 23:59 23:59 23:59 Intake Total 2896 / 2896 2489 / 2489 2206 / 2206 Balance 2896 / 2896 2489 / 2489 2206 / 2206 Microbiology Past 72 Hours 12/16/17 12:32 Gram Stain - Final Sputum, Expectorated/Coughed Respiratory Culture - Preliminary Staphylococcus aureus Yeast Laboratory Tests Past 24 Hrs 12/17/17 12/17/17 04:55 04:55 WBC 9.4 RBC 3.44 L Hgb 10.9 L Hct 35.4 L MCV 102.9 H MCH 31.7 MCHC 30.8 L RDW 15.8 H RDW Differential 58.7 H Plt Count 190 MPV 12.9 H Sodium 146 H Potassium 3.4 L Chloride 107 Carbon Dioxide 34.0 H Anion Gap 5 BUN 33 H Creatinine 0.62 L Estim Creat Clear Calc 74.01 Est GFR (MDRD) Af Amer 166 Est GFR (MDRD) Non-Af 137 BUN/Creatinine Ratio 53.1 H Glucose 410 H Calcium 8.9 POC Glucose 12/17/17 12/17/17 12/17/17 12:21 07:09 00:37 POC Glucose 278 H 346 H 369 H 12/16/17 12/16/17 21:33 16:51 POC Glucose 267 H 243 H Medical Necessity - Tobacco Use Smoking Status: Former smoker Tobacco Use: Cigarettes Assessment/Plan All Active Problems (Last Updated 12/15/17 @ 11:14 by Jocelyn Machuca, DOUBLE END TRIMMER-C) Fall (Acute) Alcohol intoxication (Resolved) Acute respiratory failure (Acute) Aspiration pneumonia (Acute) Acute and chronic respiratory failure with hypoxia (Acute) FUO (fever of unknown origin) (Acute) Demand ischemia (Resolved) Systolic CHF, acute (Acute) Acute respiratory failure with hypoxia and hypercarbia (Resolved) Multifocal community-acquired pneumonia (Resolved) Severe sepsis (Resolved) 1. Acute on chronic hypoxic respiratory failure 2/2 recurrent aspiration pna - conitnue speech therapy. Sputum with MRSA, on vanco (restarted) and cefipime. NPO. PEG feedings. Strep/legionella antigens neg. Blood cultures pending. Afebrile, no white count. Pulm following. 2. Dysphagia - 2/2 TBI fall down stairs with cerebral hemorrhages. ST. Peg feedings. 3. Coccyx pressure ulcer present on admission - wound care nursing following. 4. CAD - hx CABG, stents - continiue asa/bb/DANII inhibitor. statin allergy. 5. T2DM - fluctuant - insulins being increased while here. 6. Chronic systolic CHF-stable continue Lasix and DANII inhibitor 7. Hypertension-stable, continue current regimen 8. COPD with no acute exacerbation-continue aerosols 9. Obstructive sleep apnea-continue CPAP at night 10. Tobacco dependence-off patch 11. BPH-continue Flomax 12. Macrocytic anemia - stable. Check folate/b12. 13. Hypokalemia - repleted. DVT prophylaxis-SCDs Discharge planning: Not a candidate for rehab given his severe weakness, plans to go to TCU. Precert is pending. This patient was seen by Julio Estrada PA-C under the supervision of Doctor Isidro. <Darnell Felix - Last Filed: 12/17/17 13:56> Subjective: Feeling better. Breathing better. Coughing up some phlegm. - Physical Exam General: Alert, Cooperative HEENT: Atraumatic, PERRLA, EOMI Neck: No Nodes, Thyroid Normal Size and Texture Lungs: Diminished, - - coarse breath sounds bilaterally. Cardiovascular: Regular rate, Regular Rhythm, Normal S1, Normal S2, No murmurs Abdomen: Bowel Sounds Present, Soft, Non Tender, Non-Distended Extremities: No edema, No Calf Tenderness Skin: No rashes, No breakdown Psych/Mental Status: Normal Affect, Appropriate Vital Signs Temp Pulse Resp BP Pulse Ox 37.1 C 81 16 123/57 H 97 12/17/17 12:35 12/17/17 13:08 12/17/17 13:08 12/17/17 12:35 12/17/17 12:35 Oxygen Flow Rate (L/min) 3 Oxygen Delivery Method Nasal Cannula Weight: 111.9 kg Body Mass Index (BMI) 35.3 Intake and Output for Last 24 Hours 12/15/17 12/16/17 12/17/17 23:59 23:59 23:59 Intake Total 2896 / 2896 2489 / 2489 2206 / 2206 Balance 2896 / 2896 2489 / 2489 2206 / 2206 Microbiology Past 72 Hours 12/16/17 12:32 Gram Stain - Final Sputum, Expectorated/Coughed Respiratory Culture - Preliminary Staphylococcus aureus Yeast Laboratory Tests Past 24 Hrs 12/17/17 12/17/17 12/17/17 04:55 04:55 04:55 WBC 9.4 RBC 3.44 L Hgb 10.9 L Hct 35.4 L MCV 102.9 H MCH 31.7 MCHC 30.8 L RDW 15.8 H RDW Differential 58.7 H Plt Count 190 MPV 12.9 H Sodium 146 H Potassium 3.4 L Chloride 107 Carbon Dioxide 34.0 H Anion Gap 5 BUN 33 H Creatinine 0.62 L Estim Creat Clear Calc 74.01 Est GFR (MDRD) Af Amer 166 Est GFR (MDRD) Non-Af 137 BUN/Creatinine Ratio 53.1 H Glucose 410 H Calcium 8.9 Vitamin B12 Pending Folate 07/12/18 04:55 WBC RBC Hgb Hct MCV MCH MCHC RDW RDW Differential Plt Count MPV Sodium Potassium Chloride Carbon Dioxide Anion Gap BUN Creatinine Estim Creat Clear Calc Est GFR (MDRD) Af Amer Est GFR (MDRD) Non-Af BUN/Creatinine Ratio Glucose Calcium Vitamin B12 Folate Pending POC Glucose 12/17/17 12/17/17 12/17/17 12:21 07:09 00:37 POC Glucose 278 H 346 H 369 H 12/16/17 12/16/17 21:33 16:51 POC Glucose 267 H 243 H Assessment/Plan Patient seen and examined independently. Data reviewed. I agree with the above note by the physician assistant business manager. 1. acute on chronic hypoxic resp failure * improved * secondary to pneumonia * Wean oxygen as tolerated 2. presumed gram negative pneumonia/aspiration number * cefepime and vanc * pulm toilet * pulmonology on consult * vest therapy * Sputum positive for staph aureus 3. 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 * right sided weakness * SNF/rehab upon discharge 4. Dysphagia * s/p PEG * speech therapy. 5. DVT proph: SCDs, DC lovenox given TBI 6. CAD. ASA and metoprolol. Code Visit Inpatient E&M: 23170 Subs Hosp L2
[2017-12-17 18:11] LABS: Bedside Glucose 206 mg/dL (70-110)
[2017-12-17] MEDS: Amitriptyline 100 MG Tablet GT (23:52)
[2017-12-17] MEDS: Tamsulosin HCl 0.4 MG Capsule PO (23:52)
[2017-12-17] MEDS: Pramipexole Di-HCl 0.25 MG Tablet GT (23:53)
[2017-12-17] MEDS: Pravastatin 80 MG Tablet GT (23:53)
[2017-12-18] VITALS (15 sets, daily range): BP systolic 109–143; BP diastolic 58–73; PULSE 70–89; RESP 14–20; TEMP 36.6–36.9; O2SAT 93–98
[2017-12-18 00:40] LABS: Bedside Glucose 290 mg/dL (70-110)
[2017-12-18] MEDS: Ipratropium/Albuterol Sulfate 3 ML AMPUL.NEB INHALATION ×3 (01:55→18:41)
[2017-12-18] MEDS: 0.9% NaCl PICC Flush IV ×2 (04:53→21:43)
[2017-12-18 05:03] LABS: Absolute Neutrophil Count 6.7 X10^3/uL (2.0-7.7); Basophil# 0.06 X10^3/uL; Basophil% 0.6 % (0-1); Eosinophil# 0.08 X10^3/uL; Eosinophils% 0.9 % (0-5); Hemoglobin 11.1 g/dl (13.0-16.5); Lymphocyte % 18.3 % (19-41); Mean Corp Hgb Conc 31.7 g/gl (32-36); Mean Corpuscular Hgb 32.3 pg (27.0-32.0); Mean Corpuscular Volume 101.7 fL (80-94); Mean Platelet Vol. 12.6 fl (6.2-12.0); Monocyte# 0.76 X10^3/uL; Monocyte% 8.2 % (0-10); Neutrophil # 6.66 X10^3/uL (2.7-7.7); Neutrophil % 71.8 % (47-70); Platelet Count 189 K/mm3 (150-450); RBC Distribution Width CV 15.5 % (11.6-14.6); RBC Distribution Width SD 56.7 fl (35.1-43.9); Red Blood Count 3.44 M/mm3 (4.6-6.2); White Blood Count 9.3 K/mm3 (4.4-11.0)
[2017-12-18 05:08] LABS: POSITIVE COUNT NO; POSITIVE DIFFERENTIAL NO; POSITIVE MORPHOLOGY NO
[2017-12-18 05:40] LABS: Anion Gap 8 (5-15); BUN 31 mg/dL (7-18); BUN/Creat Ratio 51.3 RATIO (10-20); Calcium,Total 8.8 mg/dL (8.5-10.1); Chloride 105 mmol/L (98-107); EST Glomerular Filtration Rate 142 mL/min (>60); Est Glom Filt Rate - Afr Amer 171 mL/min (>60); Estimated Creatinine Clearance 74.01 ml/min; Glucose 419 mg/dL (74-106); Potassium 3.2 mmol/L (3.5-5.1); Sodium Level 145 mmol/L (136-145)
[2017-12-18] MEDS: Metoprolol Tartrate 50 MG Tablet 150 MG GT ×3 (06:08→21:57)
[2017-12-18] MEDS: Insulin Lispro 100 UNIT/ML INSULN.PEN SQ ×3 (06:22→17:46)
[2017-12-18 06:45] LABS: Bedside Glucose 385 mg/dL (70-110)
[2017-12-18] MEDS: Budesonide Respules 0.5 MG/2 ML AMPUL.NEB. INHALATION ×2 (06:47→18:41)
[2017-12-18 07:01] LABS: Bedside Glucose 376 mg/dL (70-110)
[2017-12-18] MEDS: Magnesium Oxide 400 MG Tablet GT ×3 (08:10→17:47)
[2017-12-18] MEDS: Aspirin 81 MG TAB.CHEW GT (08:13)
--- NOTE | 2017-12-18 08:31 | PCM.PROGNOTE ---
Patient Problems: Active and Suspected Problems (Last Updated 12/15/17 @ 11:14 by Jocelyn Machuca, SALES TECH[employer]ICIAN [employer]-C) Acute and chronic respiratory failure with hypoxia (Acute) Subjective: Patient did well overnight. No acute issues were reported. Patient continues to have high blood sugars. Patient is tolerating tube feeds per nursing. Patient is more groggy this morning compared to yesterday, but is still doing well on nasal cannula oxygen. - Physical Exam General: - - RASS -1. Peers older than stated age. Obese. HEENT: Atraumatic, PERRLA, EOMI, Normocephalic, - - No scleral icterus or injection noted. Oral: Moist Mucosa, No Gingival or Mucosal Lesions/ Ulcerations Neck: Supple, No JVD, No Nodes, Trachea Midline Lungs: No rhonchi, No wheeze, No rales, Diminished, - - Fair effort. No cough with deep inhalation. Cardiovascular: Regular rate, Regular Rhythm, Normal S1, Normal S2, No murmurs, No rub noted, No Gallop Abdomen: Bowel Sounds Present, Soft, Non Tender, Non-Distended, Obese, - - PEG is clean, dry and intact. Extremities: No clubbing, No cyanosis, No edema, Capillary Refill Less than 3 Seconds Skin: - - No significant change compared to previous Musculoskeletal: No Tenderness to Palpation of Joints or Extremities Lymphatic: No Cervical, Supraclavicular, or Inguinal Adenopathy Neurological: - - Unchanged compared to previous except less interactive today compared to previous Psych/Mental Status: Flat Affect Vital Signs Temp Pulse Resp BP Pulse Ox 36.9 C 70 20 H 143/73 H 96 12/18/17 05:50 12/18/17 06:59 12/18/17 06:47 12/18/17 05:50 12/18/17 06:47 Oxygen Flow Rate (L/min) 3 Oxygen Delivery Method Nasal Cannula Weight: 111.9 kg Body Mass Index (BMI) 35.3 Intake and Output for Last 24 Hours 12/16/17 12/17/17 12/18/17 23:59 23:59 23:59 Intake Total 2489 / 2489 4301 / 4301 1545 / 1545 Output Total 0 / 0 Balance 2489 / 2489 4301 / 4301 1545 / 1545 Microbiology Past 72 Hours 12/16/17 12:32 Gram Stain - Final Sputum, Expectorated/Coughed Respiratory Culture - Preliminary Staphylococcus aureus Yeast Laboratory Tests Past 24 Hrs 12/17/17 12/17/17 12/18/17 04:55 04:55 04:50 WBC 9.3 RBC 3.44 L Hgb 11.1 L Hct 35.0 L MCV 101.7 H MCH 32.3 H MCHC 31.7 L RDW 15.5 H RDW Differential 56.7 H Plt Count 189 MPV 12.6 H Immature Gran % (Auto) 0.200 Neut % (Auto) 71.8 H Lymph % (Auto) 18.3 L [place] % (Auto) 8.2 Eos % (Auto) 0.9 Baso % (Auto) 0.6 Absolute Neuts (auto) 6.7 Absolute Lymphs (auto) 1.70 Total Counted Not Reportable Sodium Potassium Chloride Carbon Dioxide Anion Gap BUN Creatinine Estim Creat Clear Calc Est GFR (MDRD) Af Amer Est GFR (MDRD) Non-Af BUN/Creatinine Ratio Glucose Calcium Vitamin B12 Pending Folate 28.20 12/18/17 04:50 WBC RBC Hgb Hct MCV MCH MCHC RDW RDW Differential Plt Count MPV Immature Gran % (Auto) Neut % (Auto) Lymph % (Auto) [place] % (Auto) Eos % (Auto) Baso % (Auto) Absolute Neuts (auto) Absolute Lymphs (auto) Total Counted Sodium 145 Potassium 3.2 L Chloride 105 Carbon Dioxide 32.0 Anion Gap 8 BUN 31 H Creatinine 0.60 L Estim Creat Clear Calc 74.01 Est GFR (MDRD) Af Amer 171 Est GFR (MDRD) Non-Af 142 BUN/Creatinine Ratio 51.3 H Glucose 419 H Calcium 8.8 Vitamin B12 Folate POC Glucose 12/18/17 12/18/17 12/17/17 06:55 06:20 23:35 POC Glucose 376 H 385 H 290 H 12/17/17 12/17/17 17:30 12:21 POC Glucose 206 H 278 H Medical Necessity - Tobacco Use Smoking Status: Former smoker Tobacco Use: Cigarettes Assessment/Plan All Active Problems (Last Updated 12/15/17 @ 11:14 by Jocelyn Machuca, SALES TECHNICIAN HOME [employer]-C) Fall (Acute) Alcohol intoxication (Resolved) Acute respiratory failure (Acute) Aspiration pneumonia (Acute) Acute and chronic respiratory failure with hypoxia (Acute) FUO (fever of unknown origin) (Acute) Demand ischemia (Resolved) Systolic CHF, acute (Acute) Acute respiratory failure with hypoxia and hypercarbia (Resolved) Multifocal community-acquired pneumonia (Resolved) Severe sepsis (Resolved) RECOMMENDATIONS 1. Wean oxygen supplementation to keep saturations 88% or above 2. Encourage incentive spirometer/Acapella/Vest 3. Continue PT/OT 4. Continue bronchodilators and Pulmicort 5. Antibiotics per primary service 6. Increase basal insulin and continue sliding scale 7. Maintain strict aspiration precautions IMPRESSIONS 1. Acute on chronic hypoxic respiratory failure Patient appears to be responding to aggressive pulmonary toileting measures. Patient is currently on broad-spectrum antibiotics, but cultures have been no growth to date. Patient does have a weak cough secondary to neurologic condition. We will continue with aggressive pulmonary toileting. Wean oxygen as tolerated. Continue with Pulmicort therapy. Clinical suspicion that vest therapy will be required indefinitely, including as an outpatient given his weak cough from a neurologic insult. 2. Dysphagia Chronic, has PEG tube with nutritional supplement. Consult speech for ongoing therapy. Nutrition providing recommendations of tube feeds, patient does have elevated blood sugars. Adjust insulin as indicated. 3. History of tobacco abuse and self-reported COPD Patient has not smoked several months, would likely be okay to discontinue his nicotine patch. No pulmonary function tests available. 4. HTN/morbid obesity/CHF/type 2 diabetes/history of CABG/BPH/GERD/depression/JIM/subarachnoid, subdural, and intraparenchymal hemorrhage/TBI Complicates care, management, recovery, and prognosis. Continue home medications via PEG tube as indicated. Increased basal and continued sliding scale insulin today. Patient appears to have responded to reinitiation of baseline Lasix therapy. This note was generated with [employer] dictation software. It may contain incorrect words, spelling, and punctuation that were not noted in checking the note before signing. Code Visit Inpatient E&M: 92979 Subs Hosp L3
--- NOTE | 2017-12-18 08:35 | PN_ITS ---
Patient Problems: Active and Suspected Problems (Last Updated 12/15/17 @ 11:14 by Jocelyn Machuca , [employer]-C) Acute and chronic respiratory failure with hypoxia (Acute) Subjective: Patient did well overnight. No acute issues were reported. Patient continues to have high blood sugars. Patient is tolerating tube feeds per nursing. Patient is more groggy this morning compared to yesterday, but is still doing well on nasal cannula oxygen. - Physical Exam General: - - RASS -1. Peers older than stated age. Obese. HEENT: Atraumatic, PERRLA, EOMI, Normocephalic, - - No scleral icterus or injection noted. Oral: Moist Mucosa, No Gingival or Mucosal Lesions/ Ulcerations Neck: Supple, No JVD, No Nodes, Trachea Midline Lungs: No rhonchi, No wheeze, No rales, Diminished, - - Fair effort. No cough with deep inhalation. Cardiovascular: Regular rate, Regular Rhythm, Normal S1, Normal S2, No murmurs, No rub noted, No Gallop Abdomen: Bowel Sounds Present, Soft, Non Tender, Non-Distended, Obese, - - PEG is clean, dry and intact. Extremities: No clubbing, No cyanosis, No edema, Capillary Refill Less than 3 Seconds Skin: - - No significant change compared to previous Musculoskeletal: No Tenderness to Palpation of Joints or Extremities Lymphatic: No Cervical, Supraclavicular, or Inguinal Adenopathy Neurological: - - Unchanged compared to previous except less interactive today compared to previous Psych/Mental Status: Flat Affect Vital Signs Temp Pulse Resp BP Pulse Ox 36.9 C 70 20 H 143/73 H 96 12/18/17 05:50 12/18/17 06:59 12/18/17 06:47 12/18/17 05:50 12/18/17 06:47 Oxygen Flow Rate (L/min) 3 Oxygen Delivery Method Nasal Cannula Weight: 111.9 kg Body Mass Index (BMI) 35.3 Intake and Output for Last 24 Hours 12/16/17 12/17/17 12/18/17 23:59 23:59 23:59 Intake Total 2489 / 2489 4301 / 4301 1545 / 1545 Output Total 0 / 0 Balance 2489 / 2489 4301 / 4301 1545 / 1545 Microbiology Past 72 Hours 12/16/17 12:32 Gram Stain - Final Sputum, Expectorated/Coughed Respiratory Culture - Preliminary Staphylococcus aureus Yeast Laboratory Tests Past 24 Hrs 12/17/17 12/17/17 12/18/17 04:55 04:55 04:50 WBC 9.3 RBC 3.44 L Hgb 11.1 L Hct 35.0 L MCV 101.7 H MCH 32.3 H MCHC 31.7 L RDW 15.5 H RDW Differential 56.7 H Plt Count 189 MPV 12.6 H Immature Gran % (Auto) 0.200 Neut % (Auto) 71.8 H Lymph % (Auto) 18.3 L [place] % (Auto) 8.2 Eos % (Auto) 0.9 Baso % (Auto) 0.6 Absolute Neuts (auto) 6.7 Absolute Lymphs (auto) 1.70 Total Counted Not Reportable Sodium Potassium Chloride Carbon Dioxide Anion Gap BUN Creatinine Estim Creat Clear Calc Est GFR (MDRD) Af Amer Est GFR (MDRD) Non-Af BUN/Creatinine Ratio Glucose Calcium Vitamin B12 Pending Folate 28.20 12/18/17 04:50 WBC RBC Hgb Hct MCV MCH MCHC RDW RDW Differential Plt Count MPV Immature Gran % (Auto) Neut % (Auto) Lymph % (Auto) [place] % (Auto) Eos % (Auto) Baso % (Auto) Absolute Neuts (auto) Absolute Lymphs (auto) Total Counted Sodium 145 Potassium 3.2 L Chloride 105 Carbon Dioxide 32.0 Anion Gap 8 BUN 31 H Creatinine 0.60 L Estim Creat Clear Calc 74.01 Est GFR (MDRD) Af Amer 171 Est GFR (MDRD) Non-Af 142 BUN/Creatinine Ratio 51.3 H Glucose 419 H Calcium 8.8 Vitamin B12 Folate POC Glucose 12/18/17 12/18/17 12/17/17 06:55 06:20 23:35 POC Glucose 376 H 385 H 290 H 12/17/17 12/17/17 17:30 12:21 POC Glucose 206 H 278 H Medical Necessity - Tobacco Use Smoking Status: Former smoker Tobacco Use: Cigarettes Assessment/Plan All Active Problems (Last Updated 12/15/17 @ 11:14 by Jocelyn Machuca, [employer]-C) Fall (Acute) Alcohol intoxication (Resolved) Acute respiratory failure (Acute) Aspiration pneumonia (Acute) Acute and chronic respiratory failure with hypoxia (Acute) FUO (fever of unknown origin) (Acute) Demand ischemia (Resolved) Systolic CHF, acute (Acute) Acute respiratory failure with hypoxia and hypercarbia (Resolved) Multifocal community-acquired pneumonia (Resolved) Severe sepsis (Resolved) RECOMMENDATIONS 1. Wean oxygen supplementation to keep saturations 88% or above 2. Encourage incentive spirometer/Acapella/Vest 3. Continue PT/OT 4. Continue bronchodilators and Pulmicort 5. Antibiotics per primary service 6. Increase basal insulin and continue sliding scale 7. Maintain strict aspiration precautions IMPRESSIONS 1. Acute on chronic hypoxic respiratory failure Patient appears to be responding to aggressive pulmonary toileting measures. Patient is currently on broad-spectrum antibiotics, but cultures have been no growth to date. Patient does have a weak cough secondary to neurologic condition. We will continue with aggressive pulmonary toileting. Wean oxygen as tolerated. Continue with Pulmicort therapy. Clinical suspicion that vest therapy will be required indefinitely, including as an outpatient given his weak cough from a neurologic insult. 2. Dysphagia Chronic, has PEG tube with nutritional supplement. Consult speech for ongoing therapy. Nutrition providing recommendations of tube feeds, patient does have elevated blood sugars. Adjust insulin as indicated. 3. History of tobacco abuse and self-reported COPD Patient has not smoked several months, would likely be okay to discontinue his nicotine patch. No pulmonary function tests available. 4. HTN/morbid obesity/CHF/type 2 diabetes/history of CABG/BPH/GERD/ depression/JIM/subarachnoid, subdural, and intraparenchymal hemorrhage/TBI Complicates care, management, recovery, and prognosis. Continue home medications via PEG tube as indicated. Increased basal and continued sliding scale insulin today. Patient appears to have responded to reinitiation of baseline Lasix therapy. This note was generated with [employer] dictation software. It may contain incorrect words, spelling, and punctuation that were not noted in checking the note before signing. Code Visit Inpatient E&M: 95356 Subs Hosp L3
[2017-12-18 08:59] LABS: Vitamin B12 1154 pg/mL (211-911)
[2017-12-18 09:28] LABS: Magnesium 2.1 mg/dL (1.6-2.6)
[2017-12-18 09:40] LABS: Phosphorus 3.1 mg/dL (2.5-4.9)
[2017-12-18] MEDS: AMANTADINE HCL 50 MG/5ML 100 MG GT (10:39)
[2017-12-18] MEDS: Furosemide 40 MG Tablet GT ×2 (10:41→17:47)
[2017-12-18] MEDS: amLODIPine 10 MG Tablet GT (10:41)
[2017-12-18] MEDS: Lisinopril 20 MG Tablet GT (10:42)
--- NOTE | 2017-12-18 10:49 | CASEMGMT ---
Addendum entered by Nydia Paniagua 12/18/17 11:02: CONTRERAS let patient and his know this information. Nydia RAMOS Original Note: Received insurance approval for patient to go to [facility]. Pre-cert is good through the weekend. SW will put a green sheet on chart if patient is not ready today. Plan: [facility] when ready. Nydia RAMOS
[2017-12-18 12:36] LABS: Bedside Glucose 266 mg/dL (70-110)
--- NOTE | 2017-12-18 13:56 | PCM.PROGNOTE ---
<Julio Estrada - Last Filed: 12/18/17 13:56> Patient Problems: Active and Suspected Problems (Last Updated 12/15/17 @ 11:14 by Jocelyn Machuca, KELLY-C) Acute and chronic respiratory failure with hypoxia (Acute) Subjective: Patient resting comfortably in bed with at bedside. No acute issues overnight. Patient without fevers or chills, no increased shortness of breath, no cough. Still remains very weak, has a very weak voice. With encouragement he is able to speak up loudly for conversation. He and his are agreeable to placement when approved. They are accepted to TCU and they have about however we are waiting for the final culture on the staph aureus to come back. - Physical Exam General: Alert, Oriented x3, Cooperative HEENT: Atraumatic, PERRLA, EOMI, Normocephalic Neck: Supple, No JVD, Negative Carotid Bruits Lungs: Diminished Cardiovascular: Regular rate, No murmurs Abdomen: Bowel Sounds Present, Soft, Non Tender Extremities: No edema, Capillary Refill Less than 3 Seconds Skin: No rashes, No breakdown Musculoskeletal: No Tenderness to Palpation of Joints or Extremities Neurological: Cranial nerves II-XII grossly intact Psych/Mental Status: Normal Affect, Appropriate, Alert and oriented to time, place, person, mood and affect Vital Signs Temp Pulse Resp BP Pulse Ox 97.9 F 78 16 109/58 L 98 12/18/17 11:50 12/18/17 11:50 12/18/17 11:50 12/18/17 11:50 12/18/17 11:50 Oxygen Flow Rate (L/min) 3 Oxygen Delivery Method Nasal Cannula Weight: 111.9 kg Body Mass Index (BMI) 35.3 Intake and Output for Last 24 Hours 12/16/17 12/17/17 12/18/17 23:59 23:59 23:59 Intake Total 2489 / 2489 4301 / 4301 1879 / 1879 Output Total 0 / 0 Balance 2489 / 2489 4301 / 4301 1879 Microbiology Past 72 Hours 12/16/17 12:32 Gram Stain - Final Sputum, Expectorated/Coughed Respiratory Culture - Preliminary Staphylococcus aureus Presumptive C albicans Laboratory Tests Past 24 Hrs 12/17/17 12/17/17 12/18/17 04:55 04:55 04:50 WBC 9.3 RBC 3.44 L Hgb 11.1 L Hct 35.0 L MCV 101.7 H MCH 32.3 H MCHC 31.7 L RDW 15.5 H RDW Differential 56.7 H Plt Count 189 MPV 12.6 H Immature Gran % (Auto) 0.200 Neut % (Auto) 71.8 H Lymph % (Auto) 18.3 L [place] % (Auto) 8.2 Eos % (Auto) 0.9 Baso % (Auto) 0.6 Absolute Neuts (auto) 6.7 Absolute Lymphs (auto) 1.70 Total Counted Not Reportable Sodium Potassium Chloride Carbon Dioxide Anion Gap BUN Creatinine Estim Creat Clear Calc Est GFR (MDRD) Af Amer Est GFR (MDRD) Non-Af BUN/Creatinine Ratio Glucose Calcium Phosphorus Magnesium Vitamin B12 1154 H Folate 28.20 12/18/17 12/18/17 12/18/17 04:50 04:50 04:50 WBC RBC Hgb Hct MCV MCH MCHC RDW RDW Differential Plt Count MPV Immature Gran % (Auto) Neut % (Auto) Lymph % (Auto) [place] % (Auto) Eos % (Auto) Baso % (Auto) Absolute Neuts (auto) Absolute Lymphs (auto) Total Counted Sodium 145 Potassium 3.2 L Chloride 105 Carbon Dioxide 32.0 Anion Gap 8 BUN 31 H Creatinine 0.60 L Estim Creat Clear Calc 74.01 Est GFR (MDRD) Af Amer 171 Est GFR (MDRD) Non-Af 142 BUN/Creatinine Ratio 51.3 H Glucose 419 H Calcium 8.8 Phosphorus 3.1 Magnesium 2.1 Vitamin B12 Folate POC Glucose 12/18/17 12/18/17 12/18/17 12:24 06:55 06:20 POC Glucose 266 H 376 H 385 H 12/17/17 12/17/17 23:35 17:30 POC Glucose 290 H 206 H Medical Necessity - Tobacco Use Smoking Status: Former smoker Tobacco Use: Cigarettes Assessment/Plan All Active Problems (Last Updated 12/15/17 @ 11:14 by Jocelyn Machuca NP-C) Fall (Acute) Alcohol intoxication (Resolved) Acute respiratory failure (Acute) Aspiration pneumonia (Acute) Acute and chronic respiratory failure with hypoxia (Acute) FUO (fever of unknown origin) (Acute) Demand ischemia (Resolved) Systolic CHF, acute (Acute) Acute respiratory failure with hypoxia and hypercarbia (Resolved) Multifocal community-acquired pneumonia (Resolved) Severe sepsis (Resolved) 1. Acute on chronic hypoxic respiratory failure 2/2 recurrent aspiration pna - conitnue speech therapy. Sputum with Staph - nondifferentiated at this point, on vanco and cefipime. NPO. PEG feedings. Strep/legionella antigens neg. Blood cultures pending. Afebrile, no white count. Pulm following. I called microbiology to discuss his culture and sensitivity report, they report that the MRSA versus non-MRSA results will not be back till tomorrow he will remain on empiric antibiotics until we have the final C&S tomorrow. 2. Dysphagia - 2/2 TBI fall down stairs with cerebral hemorrhages. ST. Peg feedings. 3. Coccyx pressure ulcer present on admission - wound care nursing following. 4. CAD - hx CABG, stents - continiue asa/bb/DANII inhibitor. statin allergy. 5. T2DM - fluctuant - insulins being increased while here. 6. Chronic systolic CHF-stable continue Lasix and DANII inhibitor. No edema. Lungs are clear, diminished. 7. Hypertension-stable, continue current regimen 8. COPD with no acute exacerbation-continue aerosols 9. Obstructive sleep apnea-continue CPAP at night 10. Tobacco dependence-off patch 11. BPH-continue Flomax 12. Macrocytic anemia - stable. Check folate/b12. 13. Hypokalemia - repleted. Mag and phos are normal today. DVT prophylaxis-SCDs Discharge planning: Plan is to discharge the patient to TCU tomorrow, his culture and sensitivity report should be back so that we can direct his therapy for the staph infection. This patient was seen by Julio Estrada PA-C under the supervision of Doctor Isidro. <Darnell Felix - Last Filed: 12/18/17 15:43> Subjective: Breathing better. Expectorating more phlegm. - Physical Exam General: Alert, Cooperative HEENT: Atraumatic, PERRLA, EOMI, Normocephalic Oral: Moist Mucosa, No Gingival or Mucosal Lesions/ Ulcerations Neck: No Nuchal Rigidity, Thyroid Normal Size and Texture Lungs: Diminished, - - coarse breath sounds bilaterally. Cardiovascular: Regular rate, Regular Rhythm, Normal S1, Normal S2, No murmurs Abdomen: Bowel Sounds Present, Soft, Non Tender Extremities: No edema, No Calf Tenderness Skin: No rashes Psych/Mental Status: Normal Affect, Appropriate Vital Signs Temp Pulse Resp BP Pulse Ox 36.6 C 78 16 109/58 L 98 12/18/17 11:50 12/18/17 14:58 12/18/17 11:50 12/18/17 11:50 12/18/17 11:50 Oxygen Flow Rate (L/min) 3 Oxygen Delivery Method Nasal Cannula Weight: 111.9 kg Body Mass Index (BMI) 35.3 Intake and Output for Last 24 Hours 12/16/17 12/17/17 12/18/17 23:59 23:59 23:59 Intake Total 2489 / 2489 4301 / 4301 1880 / 1880 Output Total 0 / 0 Balance 2489 / 2489 4301 / 4301 1880 / 1880 Microbiology Past 72 Hours 12/16/17 12:32 Gram Stain - Final Sputum, Expectorated/Coughed Respiratory Culture - Preliminary Staphylococcus aureus Presumptive C albicans Laboratory Tests Past 24 Hrs 12/17/17 12/18/17 12/18/17 04:55 04:50 04:50 WBC 9.3 RBC 3.44 L Hgb 11.1 L Hct 35.0 L MCV 101.7 H MCH 32.3 H MCHC 31.7 L RDW 15.5 H RDW Differential 56.7 H Plt Count 189 MPV 12.6 H Immature Gran % (Auto) 0.200 Neut % (Auto) 71.8 H Lymph % (Auto) 18.3 L [place] % (Auto) 8.2 Eos % (Auto) 0.9 Baso % (Auto) 0.6 Absolute Neuts (auto) 6.7 Absolute Lymphs (auto) 1.70 Total Counted Not Reportable Sodium 145 Potassium 3.2 L Chloride 105 Carbon Dioxide 32.0 Anion Gap 8 BUN 31 H Creatinine 0.60 L Estim Creat Clear Calc 74.01 Est GFR (MDRD) Af Amer 171 Est GFR (MDRD) Non-Af 142 BUN/Creatinine Ratio 51.3 H Glucose 419 H Calcium 8.8 Phosphorus Magnesium Vitamin B12 1154 H 12/18/17 12/18/17 04:50 04:50 WBC RBC Hgb Hct MCV MCH MCHC RDW RDW Differential Plt Count MPV Immature Gran % (Auto) Neut % (Auto) Lymph % (Auto) [place] % (Auto) Eos % (Auto) Baso % (Auto) Absolute Neuts (auto) Absolute Lymphs (auto) Total Counted Sodium Potassium Chloride Carbon Dioxide Anion Gap BUN Creatinine Estim Creat Clear Calc Est GFR (MDRD) Af Amer Est GFR (MDRD) Non-Af BUN/Creatinine Ratio Glucose Calcium Phosphorus 3.1 Magnesium 2.1 Vitamin B12 POC Glucose 12/18/17 12/18/17 12/18/17 12:24 06:55 06:20 POC Glucose 266 H 376 H 385 H 12/17/17 12/17/17 23:35 17:30 POC Glucose 290 H 206 H Assessment/Plan Patient seen and examined independently. Data reviewed. I agree with the above note by the physician assistant in nursing. 1. acute on chronic hypoxic resp failure improved secondary to pneumonia Wean oxygen as tolerated 2. presumed gram negative pneumonia/aspiration number cefepime and vanc pulm toilet pulmonology on consult vest therapy Sputum positive for staph aureus, sensitivities pending. deescalate therapy pending final culture results. 3. TBI after falling down stairs while intoxicated w ICH, SAH, SDH, IVH. right sided weakness SNF/rehab upon discharge 4. Dysphagia s/p PEG speech therapy. 5. DVT proph: SCDs, DC lovenox given TBI 6. CAD. ASA and metoprolol. Code Visit Inpatient E&M: 76401 Subs Hosp L2
--- NOTE | 2017-12-18 14:01 | PN_ITS ---
<Julio Estrada - Last Filed: 12/18/17 13:56> Patient Problems: Active and Suspected Problems (Last Updated 12/15/17 @ 11:14 by Jocelyn Machuca , KELLY-C) Acute and chronic respiratory failure with hypoxia (Acute) Subjective: Patient resting comfortably in bed with at bedside. No acute issues overnight. Patient without fevers or chills, no increased shortness of breath, no cough. Still remains very weak, has a very weak voice. With encouragement he is able to speak up loudly for conversation. He and his are agreeable to placement when approved. They are accepted to TCU and they have about however we are waiting for the final culture on the staph aureus to come back. - Physical Exam General: Alert, Oriented x3, Cooperative HEENT: Atraumatic, PERRLA, EOMI, Normocephalic Neck: Supple, No JVD, Negative Carotid Bruits Lungs: Diminished Cardiovascular: Regular rate, No murmurs Abdomen: Bowel Sounds Present, Soft, Non Tender Extremities: No edema, Capillary Refill Less than 3 Seconds Skin: No rashes, No breakdown Musculoskeletal: No Tenderness to Palpation of Joints or Extremities Neurological: Cranial nerves II-XII grossly intact Psych/Mental Status: Normal Affect, Appropriate, Alert and oriented to time, place, person, mood and affect Vital Signs Temp Pulse Resp BP Pulse Ox 97.9 F 78 16 109/58 L 98 12/18/17 11:50 12/18/17 11:50 12/18/17 11:50 12/18/17 11:50 12/18/17 11:50 Oxygen Flow Rate (L/min) 3 Oxygen Delivery Method Nasal Cannula Weight: 111.9 kg Body Mass Index (BMI) 35.3 Intake and Output for Last 24 Hours 12/16/17 12/17/17 12/18/17 23:59 23:59 23:59 Intake Total 2489 / 2489 4301 / 4301 1879 / 1879 Output Total 0 / 0 Balance 2489 / 2489 4301 / 4301 1879 Microbiology Past 72 Hours 12/16/17 12:32 Gram Stain - Final Sputum, Expectorated/Coughed Respiratory Culture - Preliminary Staphylococcus aureus Presumptive C albicans Laboratory Tests Past 24 Hrs 12/17/17 12/17/17 12/18/17 04:55 04:55 04:50 WBC 9.3 RBC 3.44 L Hgb 11.1 L Hct 35.0 L MCV 101.7 H MCH 32.3 H MCHC 31.7 L RDW 15.5 H RDW Differential 56.7 H Plt Count 189 MPV 12.6 H Immature Gran % (Auto) 0.200 Neut % (Auto) 71.8 H Lymph % (Auto) 18.3 L Reynolds % (Auto) 8.2 Eos % (Auto) 0.9 Baso % (Auto) 0.6 Absolute Neuts (auto) 6.7 Absolute Lymphs (auto) 1.70 Total Counted Not Reportable Sodium Potassium Chloride Carbon Dioxide Anion Gap BUN Creatinine Estim Creat Clear Calc Est GFR (MDRD) Af Amer Est GFR (MDRD) Non-Af BUN/Creatinine Ratio Glucose Calcium Phosphorus Magnesium Vitamin B12 1154 H Folate 28.20 12/18/17 12/18/17 12/18/17 04:50 04:50 04:50 WBC RBC Hgb Hct MCV MCH MCHC RDW RDW Differential Plt Count MPV Immature Gran % (Auto) Neut % (Auto) Lymph % (Auto) Reynolds % (Auto) Eos % (Auto) Baso % (Auto) Absolute Neuts (auto) Absolute Lymphs (auto) Total Counted Sodium 145 Potassium 3.2 L Chloride 105 Carbon Dioxide 32.0 Anion Gap 8 BUN 31 H Creatinine 0.60 L Estim Creat Clear Calc 74.01 Est GFR (MDRD) Af Amer 171 Est GFR (MDRD) Non-Af 142 BUN/Creatinine Ratio 51.3 H Glucose 419 H Calcium 8.8 Phosphorus 3.1 Magnesium 2.1 Vitamin B12 Folate POC Glucose 12/18/17 12/18/17 12/18/17 12:24 06:55 06:20 POC Glucose 266 H 376 H 385 H 12/17/17 12/17/17 23:35 17:30 POC Glucose 290 H 206 H Medical Necessity - Tobacco Use Smoking Status: Former smoker Tobacco Use: Cigarettes Assessment/Plan All Active Problems (Last Updated 12/15/17 @ 11:14 by Jocelyn Machuca NP-C) Fall (Acute) Alcohol intoxication (Resolved) Acute respiratory failure (Acute) Aspiration pneumonia (Acute) Acute and chronic respiratory failure with hypoxia (Acute) FUO (fever of unknown origin) (Acute) Demand ischemia (Resolved) Systolic CHF, acute (Acute) Acute respiratory failure with hypoxia and hypercarbia (Resolved) Multifocal community-acquired pneumonia (Resolved) Severe sepsis (Resolved) 1. Acute on chronic hypoxic respiratory failure 2/2 recurrent aspiration pna - conitnue speech therapy. Sputum with Staph - nondifferentiated at this point, on vanco and cefipime. NPO. PEG feedings. Strep/legionella antigens neg. Blood cultures pending. Afebrile, no white count. Pulm following. I called microbiology to discuss his culture and sensitivity report, they report that the MRSA versus non-MRSA results will not be back till tomorrow he will remain on empiric antibiotics until we have the final C&S tomorrow. 2. Dysphagia - 2/2 TBI fall down stairs with cerebral hemorrhages. ST. Peg feedings. 3. Coccyx pressure ulcer present on admission - wound care nursing following. 4. CAD - hx CABG, stents - continiue asa/bb/DANII inhibitor. statin allergy. 5. T2DM - fluctuant - insulins being increased while here. 6. Chronic systolic CHF-stable continue Lasix and DANII inhibitor. No edema. Lungs are clear, diminished. 7. Hypertension-stable, continue current regimen 8. COPD with no acute exacerbation-continue aerosols 9. Obstructive sleep apnea-continue CPAP at night 10. Tobacco dependence-off patch 11. BPH-continue Flomax 12. Macrocytic anemia - stable. Check folate/b12. 13. Hypokalemia - repleted. Mag and phos are normal today. DVT prophylaxis-SCDs Discharge planning: Plan is to discharge the patient to TCU tomorrow, his culture and sensitivity report should be back so that we can direct his therapy for the staph infection. This patient was seen by Julio Estrada PA-C under the supervision of Doctor Isidro. <Darnell Felix - Last Filed: 12/18/17 15:43> Subjective: Breathing better. Expectorating more phlegm. - Physical Exam General: Alert, Cooperative HEENT: Atraumatic, PERRLA, EOMI, Normocephalic Oral: Moist Mucosa, No Gingival or Mucosal Lesions/ Ulcerations Neck: No Nuchal Rigidity, Thyroid Normal Size and Texture Lungs: Diminished, - - coarse breath sounds bilaterally. Cardiovascular: Regular rate, Regular Rhythm, Normal S1, Normal S2, No murmurs Abdomen: Bowel Sounds Present, Soft, Non Tender Extremities: No edema, No Calf Tenderness Skin: No rashes Psych/Mental Status: Normal Affect, Appropriate Vital Signs Temp Pulse Resp BP Pulse Ox 36.6 C 78 16 109/58 L 98 12/18/17 11:50 12/18/17 14:58 12/18/17 11:50 12/18/17 11:50 12/18/17 11:50 Oxygen Flow Rate (L/min) 3 Oxygen Delivery Method Nasal Cannula Weight: 111.9 kg Body Mass Index (BMI) 35.3 Intake and Output for Last 24 Hours 12/16/17 12/17/17 12/18/17 23:59 23:59 23:59 Intake Total 2489 / 2489 4301 / 4301 1880 / 1880 Output Total 0 / 0 Balance 2489 / 2489 4301 / 4301 1880 / 1880 Microbiology Past 72 Hours 12/16/17 12:32 Gram Stain - Final Sputum, Expectorated/Coughed Respiratory Culture - Preliminary Staphylococcus aureus Presumptive C albicans Laboratory Tests Past 24 Hrs 12/17/17 12/18/17 12/18/17 04:55 04:50 04:50 WBC 9.3 RBC 3.44 L Hgb 11.1 L Hct 35.0 L MCV 101.7 H MCH 32.3 H MCHC 31.7 L RDW 15.5 H RDW Differential 56.7 H Plt Count 189 MPV 12.6 H Immature Gran % (Auto) 0.200 Neut % (Auto) 71.8 H Lymph % (Auto) 18.3 L Reynolds % (Auto) 8.2 Eos % (Auto) 0.9 Baso % (Auto) 0.6 Absolute Neuts (auto) 6.7 Absolute Lymphs (auto) 1.70 Total Counted Not Reportable Sodium 145 Potassium 3.2 L Chloride 105 Carbon Dioxide 32.0 Anion Gap 8 BUN 31 H Creatinine 0.60 L Estim Creat Clear Calc 74.01 Est GFR (MDRD) Af Amer 171 Est GFR (MDRD) Non-Af 142 BUN/Creatinine Ratio 51.3 H Glucose 419 H Calcium 8.8 Phosphorus Magnesium Vitamin B12 1154 H 12/18/17 12/18/17 04:50 04:50 WBC RBC Hgb Hct MCV MCH MCHC RDW RDW Differential Plt Count MPV Immature Gran % (Auto) Neut % (Auto) Lymph % (Auto) Reynolds % (Auto) Eos % (Auto) Baso % (Auto) Absolute Neuts (auto) Absolute Lymphs (auto) Total Counted Sodium Potassium Chloride Carbon Dioxide Anion Gap BUN Creatinine Estim Creat Clear Calc Est GFR (MDRD) Af Amer Est GFR (MDRD) Non-Af BUN/Creatinine Ratio Glucose Calcium Phosphorus 3.1 Magnesium 2.1 Vitamin B12 POC Glucose 12/18/17 12/18/17 12/18/17 12:24 06:55 06:20 POC Glucose 266 H 376 H 385 H 12/17/17 12/17/17 23:35 17:30 POC Glucose 290 H 206 H Assessment/Plan Patient seen and examined independently. Data reviewed. I agree with the above note by the physician construction project assistant. 1. acute on chronic hypoxic resp failure * improved * secondary to pneumonia * Wean oxygen as tolerated 2. presumed gram negative pneumonia/aspiration number * cefepime and vanc * pulm toilet * pulmonology on consult * vest therapy * Sputum positive for staph aureus, sensitivities pending. * deescalate therapy pending final culture results. 3. 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 * right sided weakness * SNF/rehab upon discharge 4. Dysphagia * s/p PEG * speech therapy. 5. DVT proph: SCDs, DC lovenox given TBI 6. CAD. ASA and metoprolol. Code Visit Inpatient E&M: 60498 Subs Hosp L2
[2017-12-18] MEDS: Insulin Lispro 100 UNIT/ML INSULN.PEN 10 UNIT SC (17:46)
[2017-12-18 18:06] LABS: Bedside Glucose 195 mg/dL (70-110)
[2017-12-18] MEDS: Amitriptyline 100 MG Tablet GT (21:56)
[2017-12-18] MEDS: Tamsulosin HCl 0.4 MG Capsule PO (21:57)
[2017-12-18] MEDS: Pramipexole Di-HCl 0.25 MG Tablet GT (21:57)
[2017-12-18] MEDS: Pravastatin 80 MG Tablet GT (21:58)
[2017-12-18 22:36] LABS: Bedside Glucose 243 mg/dL (70-110)
[2017-12-19] VITALS (10 sets, daily range): BP systolic 108–150; BP diastolic 61–79; PULSE 72–87; RESP 15–19; TEMP 36.1–36.8; O2SAT 95–99
[2017-12-19] MEDS: Insulin Lispro 100 UNIT/ML INSULN.PEN SQ ×3 (00:19→11:36)
[2017-12-19] MEDS: Insulin Lispro 100 UNIT/ML INSULN.PEN 10 UNIT SC ×3 (00:20→11:37)
[2017-12-19] MEDS: Ipratropium/Albuterol Sulfate 3 ML AMPUL.NEB INHALATION ×3 (00:37→13:22)
[2017-12-19 00:56] LABS: Bedside Glucose 277 mg/dL (70-110)
[2017-12-19] MEDS: Pivot 1.5 Cal 1,000 ML 108 ML GT (03:49)
[2017-12-19 05:25] LABS: Anion Gap 7 (5-15); BUN 30 mg/dL (7-18); BUN/Creat Ratio 58.5 RATIO (10-20); Calcium,Total 8.7 mg/dL (8.5-10.1); Chloride 104 mmol/L (98-107); Creatinine, Serum 0.51 mg/dL (0.70-1.30); EST Glomerular Filtration Rate 171 mL/min (>60); Est Glom Filt Rate - Afr Amer 207 mL/min (>60); Estimated Creatinine Clearance 74.01 ml/min; Glucose 344 mg/dL (74-106); Potassium 3.1 mmol/L (3.5-5.1); Sodium Level 143 mmol/L (136-145)
[2017-12-19] MEDS: Metoprolol Tartrate 50 MG Tablet 150 MG GT ×2 (05:36→14:06)
[2017-12-19] MEDS: Budesonide Respules 0.5 MG/2 ML AMPUL.NEB. INHALATION (07:05)
[2017-12-19 07:06] LABS: Bedside Glucose 305 mg/dL (70-110)
--- NOTE | 2017-12-19 07:24 | PCM.PROGNOTE ---
Patient Problems: Active and Suspected Problems (Last Updated 12/15/17 @ 11:14 by Jocelyn Machuca, REPAIRER RECREATIONAL VEHICLE-C) Acute and chronic respiratory failure with hypoxia (Acute) Subjective: Patient did well overnight. No acute issues were reported. Patient reportedly wore his CPAP. Patient was being seen by respiratory on my arrival and was to have a vest therapy. Patient reportedly has tolerated tube feeds without difficulty. Patient with no complaints this morning. - Physical Exam General: Alert, Cooperative, No apparent distress, - - Speaking in full sentences. HEENT: Atraumatic, PERRLA, EOMI, Normocephalic, - - No scleral icterus or injection noted. Oral: Moist Mucosa, No Gingival or Mucosal Lesions/ Ulcerations Neck: Supple, No JVD, No Nodes, Trachea Midline Lungs: No rhonchi, No wheeze, No rales, Diminished, - - Symmetric expansion. No dullness to percussion. Cardiovascular: Regular rate, Regular Rhythm, Normal S1, Normal S2, No murmurs, No rub noted, No Gallop Abdomen: Bowel Sounds Present, Soft, Non Tender, Non-Distended, - - PEG is clean, dry and intact. Extremities: No clubbing, No cyanosis, No edema, Capillary Refill Less than 3 Seconds Skin: - - No significant change compared to previous Musculoskeletal: No Tenderness to Palpation of Joints or Extremities Lymphatic: No Cervical, Supraclavicular, or Inguinal Adenopathy Neurological: - - Grossly unchanged from previous Psych/Mental Status: Appropriate, Flat Affect Vital Signs Temp Pulse Resp BP Pulse Ox 36.8 C 84 15 150/79 H 95 12/19/17 03:46 12/19/17 05:36 12/19/17 03:46 12/19/17 05:36 12/19/17 03:46 Oxygen Flow Rate (L/min) 3 Oxygen Delivery Method CPAP Weight: 111.9 kg Body Mass Index (BMI) 35.3 Intake and Output for Last 24 Hours 12/17/17 12/18/17 12/19/17 23:59 23:59 23:59 Intake Total 4301 / 4301 3706 / 3706 1108 / 1108 Output Total 0 / 0 Balance 4301 / 4301 3706 / 3706 1108 / 1108 Microbiology Past 72 Hours 12/16/17 12:32 Gram Stain - Final Sputum, Expectorated/Coughed Respiratory Culture - Preliminary Staphylococcus aureus Presumptive C albicans Laboratory Tests Past 24 Hrs 12/17/17 12/18/17 12/18/17 04:55 04:50 04:50 Sodium Potassium Chloride Carbon Dioxide Anion Gap BUN Creatinine Estim Creat Clear Calc Est GFR (MDRD) Af Amer Est GFR (MDRD) Non-Af BUN/Creatinine Ratio Glucose Calcium Phosphorus 3.1 Magnesium 2.1 Vitamin B12 1154 H 12/19/17 05:00 Sodium 143 Potassium 3.1 L Chloride 104 Carbon Dioxide 32.0 Anion Gap 7 BUN 30 H Creatinine 0.51 L Estim Creat Clear Calc 74.01 Est GFR (MDRD) Af Amer 207 Est GFR (MDRD) Non-Af 171 BUN/Creatinine Ratio 58.5 H Glucose 344 H Calcium 8.7 Phosphorus Magnesium Vitamin B12 POC Glucose 12/19/17 12/19/17 12/18/17 06:59 00:17 21:50 POC Glucose 305 H 277 H 243 H 12/18/17 12/18/17 17:41 12:24 POC Glucose 195 H 266 H Medical Necessity - Tobacco Use Smoking Status: Former smoker Tobacco Use: Cigarettes Assessment/Plan All Active Problems (Last Updated 12/15/17 @ 11:14 by Jocelyn Machuca, REPAIRER [employer]LE-C) Fall (Acute) Alcohol intoxication (Resolved) Acute respiratory failure (Acute) Aspiration pneumonia (Acute) Acute and chronic respiratory failure with hypoxia (Acute) FUO (fever of unknown origin) (Acute) Demand ischemia (Resolved) Systolic CHF, acute (Acute) Acute respiratory failure with hypoxia and hypercarbia (Resolved) Multifocal community-acquired pneumonia (Resolved) Severe sepsis (Resolved) RECOMMENDATIONS 1. Wean oxygen supplementation to keep saturations 88% or above 2. Encourage incentive spirometer/Acapella/Vest 3. Continue PT/OT 4. Continue bronchodilators and Pulmicort 5. Antibiotics per primary service 6. Increase basal insulin and continue sliding scale 7. Maintain strict aspiration precautions IMPRESSIONS 1. Acute on chronic hypoxic respiratory failure Patient appears to be responding to aggressive pulmonary toileting measures. Patient is currently on broad-spectrum antibiotics, but cultures have been no growth to date. Patient does have a weak cough secondary to neurologic condition. We will continue with aggressive pulmonary toileting. Wean oxygen as tolerated. Continue with Pulmicort therapy. Clinical suspicion that vest therapy will be required indefinitely, including as an outpatient given his weak cough from a neurologic insult. Pulmonary toileting will be vital to avoiding future pulmonary complications. 2. Dysphagia Chronic, has PEG tube with nutritional supplement. Consult speech for ongoing therapy. Nutrition providing recommendations of tube feeds, patient does have elevated blood sugars. Adjust insulin as indicated. 3. History of tobacco abuse and self-reported COPD Patient has not smoked several months. No pulmonary function tests available. Will treat empirically. Doubt patient would be able to perform pulmonary function testing maneuvers. 4. HTN/morbid obesity/CHF/type 2 diabetes/history of CABG/BPH/GERD/depression/JIM/subarachnoid, subdural, and intraparenchymal hemorrhage/TBI Complicates care, management, recovery, and prognosis. Continue home medications via PEG tube as indicated. Increased basal and continued sliding scale insulin today. Patient appears to have responded to reinitiation of baseline Lasix therapy. Continue with potassium supplementation as indicated. This note was generated with [employer] dictation software. It may contain incorrect words, spelling, and punctuation that were not noted in checking the note before signing. Code Visit Inpatient E&M: 99384 Subs Hosp L3
--- NOTE | 2017-12-19 07:28 | PN_ITS ---
Patient Problems: Active and Suspected Problems (Last Updated 12/15/17 @ 11:14 by Jocelyn Machuca , PROJECT DEVELOPMENT LEADER-C) Acute and chronic respiratory failure with hypoxia (Acute) Subjective: Patient did well overnight. No acute issues were reported. Patient reportedly wore his CPAP. Patient was being seen by respiratory on my arrival and was to have a vest therapy. Patient reportedly has tolerated tube feeds without difficulty. Patient with no complaints this morning. - Physical Exam General: Alert, Cooperative, No apparent distress, - - Speaking in full sentences. HEENT: Atraumatic, PERRLA, EOMI, Normocephalic, - - No scleral icterus or injection noted. Oral: Moist Mucosa, No Gingival or Mucosal Lesions/ Ulcerations Neck: Supple, No JVD, No Nodes, Trachea Midline Lungs: No rhonchi, No wheeze, No rales, Diminished, - - Symmetric expansion. No dullness to percussion. Cardiovascular: Regular rate, Regular Rhythm, Normal S1, Normal S2, No murmurs, No rub noted, No Gallop Abdomen: Bowel Sounds Present, Soft, Non Tender, Non-Distended, - - PEG is clean , dry and intact. Extremities: No clubbing, No cyanosis, No edema, Capillary Refill Less than 3 Seconds Skin: - - No significant change compared to previous Musculoskeletal: No Tenderness to Palpation of Joints or Extremities Lymphatic: No Cervical, Supraclavicular, or Inguinal Adenopathy Neurological: - - Grossly unchanged from previous Psych/Mental Status: Appropriate, Flat Affect Vital Signs Temp Pulse Resp BP Pulse Ox 36.8 C 84 15 150/79 H 95 12/19/17 03:46 12/19/17 05:36 12/19/17 03:46 12/19/17 05:36 12/19/17 03:46 Oxygen Flow Rate (L/min) 3 Oxygen Delivery Method CPAP Weight: 111.9 kg Body Mass Index (BMI) 35.3 Intake and Output for Last 24 Hours 12/17/17 12/18/17 12/19/17 23:59 23:59 23:59 Intake Total 4301 / 4301 3706 / 3706 1108 / 1108 Output Total 0 / 0 Balance 4301 / 4301 3706 / 3706 1108 / 1108 Microbiology Past 72 Hours 12/16/17 12:32 Gram Stain - Final Sputum, Expectorated/Coughed Respiratory Culture - Preliminary Staphylococcus aureus Presumptive C albicans Laboratory Tests Past 24 Hrs 12/17/17 12/18/17 12/18/17 04:55 04:50 04:50 Sodium Potassium Chloride Carbon Dioxide Anion Gap BUN Creatinine Estim Creat Clear Calc Est GFR (MDRD) Af Amer Est GFR (MDRD) Non-Af BUN/Creatinine Ratio Glucose Calcium Phosphorus 3.1 Magnesium 2.1 Vitamin B12 1154 H 12/19/17 05:00 Sodium 143 Potassium 3.1 L Chloride 104 Carbon Dioxide 32.0 Anion Gap 7 BUN 30 H Creatinine 0.51 L Estim Creat Clear Calc 74.01 Est GFR (MDRD) Af Amer 207 Est GFR (MDRD) Non-Af 171 BUN/Creatinine Ratio 58.5 H Glucose 344 H Calcium 8.7 Phosphorus Magnesium Vitamin B12 POC Glucose 12/19/17 12/19/17 12/18/17 06:59 00:17 21:50 POC Glucose 305 H 277 H 243 H 12/18/17 12/18/17 17:41 12:24 POC Glucose 195 H 266 H Medical Necessity - Tobacco Use Smoking Status: Former smoker Tobacco Use: Cigarettes Assessment/Plan All Active Problems (Last Updated 12/15/17 @ 11:14 by Jocelyn Machuca, PROJECT DEVELOPMENT LEADER-C) Fall (Acute) Alcohol intoxication (Resolved) Acute respiratory failure (Acute) Aspiration pneumonia (Acute) Acute and chronic respiratory failure with hypoxia (Acute) FUO (fever of unknown origin) (Acute) Demand ischemia (Resolved) Systolic CHF, acute (Acute) Acute respiratory failure with hypoxia and hypercarbia (Resolved) Multifocal community-acquired pneumonia (Resolved) Severe sepsis (Resolved) RECOMMENDATIONS 1. Wean oxygen supplementation to keep saturations 88% or above 2. Encourage incentive spirometer/Acapella/Vest 3. Continue PT/OT 4. Continue bronchodilators and Pulmicort 5. Antibiotics per primary service 6. Increase basal insulin and continue sliding scale 7. Maintain strict aspiration precautions IMPRESSIONS 1. Acute on chronic hypoxic respiratory failure Patient appears to be responding to aggressive pulmonary toileting measures. Patient is currently on broad-spectrum antibiotics, but cultures have been no growth to date. Patient does have a weak cough secondary to neurologic condition. We will continue with aggressive pulmonary toileting. Wean oxygen as tolerated. Continue with Pulmicort therapy. Clinical suspicion that vest therapy will be required indefinitely, including as an outpatient given his weak cough from a neurologic insult. Pulmonary toileting will be vital to avoiding future pulmonary complications. 2. Dysphagia Chronic, has PEG tube with nutritional supplement. Consult speech for ongoing therapy. Nutrition providing recommendations of tube feeds, patient does have elevated blood sugars. Adjust insulin as indicated. 3. History of tobacco abuse and self-reported COPD Patient has not smoked several months. No pulmonary function tests available. Will treat empirically. Doubt patient would be able to perform pulmonary function testing maneuvers. 4. HTN/morbid obesity/CHF/type 2 diabetes/history of CABG/BPH/GERD/ depression/JIM/subarachnoid, subdural, and intraparenchymal hemorrhage/TBI Complicates care, management, recovery, and prognosis. Continue home medications via PEG tube as indicated. Increased basal and continued sliding scale insulin today. Patient appears to have responded to reinitiation of baseline Lasix therapy. Continue with potassium supplementation as indicated. This note was generated with [employer] dictation software. It may contain incorrect words, spelling, and punctuation that were not noted in checking the note before signing. Code Visit Inpatient E&M: 62798 Subs Hosp L3
[2017-12-19 07:46] LABS: Bedside Glucose 321 mg/dL (70-110)
[2017-12-19] MEDS: amLODIPine 10 MG Tablet GT (08:46)
[2017-12-19] MEDS: Magnesium Oxide 400 MG Tablet GT ×2 (08:46→11:37)
[2017-12-19] MEDS: Lisinopril 20 MG Tablet GT (08:48)
[2017-12-19] MEDS: Furosemide 40 MG Tablet GT (08:48)
[2017-12-19] MEDS: Aspirin 81 MG TAB.CHEW GT (08:49)
[2017-12-19] MEDS: AMANTADINE HCL 50 MG/5ML 100 MG GT (08:53)
--- NOTE | 2017-12-19 10:26 | PCM.TXEXTCAR ---
- Routine Orders/Code Status Suppository Type: Dulcolax 10mg Suppository Frequency: Daily PRN O2 Frequency: Continuous Routine Lab Work: CBC - 3 days, BMP - daily x 3 Code Status: [facility] - Wound(s) coccyx Wound Type: Pressure Injury Dressing Change: Mepilex bridge of nose Wound Type: Abrasion - Therapies Physical Therapy: Eval and Treat Occupational Therapy: Eval and Treat Speech Therapy: Eval and Treat - Problem/Diagnosis (1) Aspiration pneumonia Status: Acute Current Visit: No (2) Traumatic brain injury Status: Chronic Current Visit: No (3) Tobacco abuse Status: Chronic Current Visit: No (4) Dysphagia Status: Chronic Current Visit: No (5) Insomnia Status: Chronic Current Visit: No (6) Vitamin D deficiency Status: Chronic Current Visit: No (7) Depression Status: Chronic Current Visit: No (8) GERD (gastroesophageal reflux disease) Status: Chronic Current Visit: No (9) BPH (benign prostatic hyperplasia) Status: Chronic Current Visit: No (10) Acute and chronic respiratory failure with hypoxia Status: Acute Current Visit: Yes (11) Obstructive sleep apnea Status: Chronic Current Visit: No (12) Ischemic cardiomyopathy Status: Chronic Current Visit: No (13) Restless leg syndrome Status: Chronic Current Visit: No (14) Hyperlipidemia Status: Chronic Current Visit: No (15) COPD (chronic obstructive pulmonary disease) Status: Chronic Current Visit: No (16) Hypertension Status: Chronic Current Visit: No (17) Morbid obesity Status: Chronic Current Visit: No (18) CAD (coronary artery disease) Status: Chronic Current Visit: No (19) Stented coronary artery Status: Chronic Comment: [facility] w/[id number] LAD (grafts occluded X 3) 02/20/17 Current Visit: No (20) Former smoker Status: Chronic Comment: quit February 2017 Current Visit: No (21) Diabetes mellitus type 2 in obese Status: Chronic Current Visit: No (22) Hx of CABG Status: Chronic Comment: CABG X3 rADIAL ARTERY-lad, svg-rca, [id number]. MULTIPLE CORONARY STENTS Current Visit: No - Allergies/Procedures Done in Hospital Allergies/Adverse Reactions: Allergies atorvastatin Allergy (Verified 10/16/17 09:47) Hives cilostazol Allergy (Verified 10/16/17 09:47) Hives colestipol Allergy (Verified 10/16/17 09:47) Hives diltiazem Allergy (Verified 10/16/17 09:47) Hives gemfibrozil Allergy (Verified 10/16/17 09:47) Hives naproxen [From Naprosyn] Allergy (Verified 10/16/17 09:47) Hives niacin Allergy (Verified 10/16/17 09:47) Hives Penicillins Allergy (Verified 10/16/17 09:47) Hives pravastatin Allergy (Verified 10/16/17 09:47) Hives procaine [From Novocain] Allergy (Verified 10/16/17 09:47) Hives rosuvastatin Allergy (Verified 10/16/17 09:47) Hives simvastatin Allergy (Verified 10/16/17 09:47) Hives isosorbide Adverse Reaction (Severe, Verified 10/16/17 09:47) Unknown Procedures: None - Type of Care/Length of Stay Estimated LOS: Convalescent Care Less Than 30 days Type of Care Needed: Skilled Rehab Potential: Fair Prognosis: Fair - Additional Orders/Day of Discharge Additional Orders: continue daily chest vest therapy Day of Discharge: 12/19/17 - Dietary and Speech Recommendations Dietitian Recommendations/Changes: To help with glycemic control, rec change to Glucerna 1.5 at 116 cc/hr 8p-8a (12 hours/day) with 170 cc H2O flushes every 4 hours to provide 2088 calories, 115g protein, and 2076 cc total fluid per day. - Follow Up Care Primary Care Physician: Julissa Lamb MD [Primary Care Provider] - Please follow up with your Primary Care Physician in: 2 weeks Please Follow Up With: Griffin Swain MD When: 2 weeks
--- NOTE | 2017-12-19 10:32 | TREXTCAR_ITS ---
- Routine Orders/Code Status Suppository Type: Dulcolax 10mg Suppository Frequency: Daily PRN O2 Frequency: Continuous Routine Lab Work: CBC - 3 days, BMP - daily x 3 [facility] coccyx Wound Type: Pressure Injury Dressing Change: Mepilex bridge of nose Wound Type: Abrasion - Therapies Physical Therapy: Eval and Treat Occupational Therapy: Eval and Treat Speech Therapy: Eval and Treat - Problem/Diagnosis (1) Aspiration pneumonia Status: Acute Current Visit: No (2) Traumatic brain injury Status: Chronic Current Visit: No (3) Tobacco abuse Status: Chronic Current Visit: No (4) Dysphagia Status: Chronic Current Visit: No (5) Insomnia Status: Chronic Current Visit: No (6) Vitamin D deficiency Status: Chronic Current Visit: No (7) Depression Status: Chronic Current Visit: No (8) GERD (gastroesophageal reflux disease) Status: Chronic Current Visit: No (9) BPH (benign prostatic hyperplasia) Status: Chronic Current Visit: No (10) Acute and chronic respiratory failure with hypoxia Status: Acute Current Visit: Yes (11) Obstructive sleep apnea Status: Chronic Current Visit: No (12) Ischemic cardiomyopathy Status: Chronic Current Visit: No (13) Restless leg syndrome Status: Chronic Current Visit: No (14) Hyperlipidemia Status: Chronic Current Visit: No (15) COPD (chronic obstructive pulmonary disease) Status: Chronic Current Visit: No (16) Hypertension Status: Chronic Current Visit: No (17) Morbid obesity Status: Chronic Current Visit: No (18) CAD (coronary artery disease) Status: Chronic Current Visit: No (19) Stented coronary artery Status: Chronic Comment: [facility] w/[id number] LAD (grafts occluded X 3) 02/20/17 Current Visit: No (20) Former smoker Status: Chronic Comment: quit February 2017 Current Visit: No (21) Diabetes mellitus type 2 in obese Status: Chronic Current Visit: No (22) Hx of CABG Status: Chronic Comment: CABG X3 rADIAL ARTERY-lad, svg-rca, svg-om2. MULTIPLE CORONARY STENTS Current Visit: No - Allergies/Procedures Done in Hospital Allergies/Adverse Reactions: Allergies atorvastatin Allergy (Verified 10/16/17 09:47) Hives cilostazol Allergy (Verified 10/16/17 09:47) Hives colestipol Allergy (Verified 10/16/17 09:47) Hives diltiazem Allergy (Verified 10/16/17 09:47) Hives gemfibrozil Allergy (Verified 10/16/17 09:47) Hives naproxen [From Naprosyn] Allergy (Verified 10/16/17 09:47) Hives niacin Allergy (Verified 10/16/17 09:47) Hives Penicillins Allergy (Verified 10/16/17 09:47) Hives pravastatin Allergy (Verified 10/16/17 09:47) Hives procaine [From Novocain] Allergy (Verified 10/16/17 09:47) Hives rosuvastatin Allergy (Verified 10/16/17 09:47) Hives simvastatin Allergy (Verified 10/16/17 09:47) Hives isosorbide Adverse Reaction (Severe, Verified 10/16/17 09:47) Unknown Procedures: None - Type of Care/Length of Stay Estimated LOS: Convalescent Care Less Than 30 days Type of Care Needed: Skilled Rehab Potential: Fair Prognosis: Fair - Additional Orders/Day of Discharge Additional Orders: continue daily chest vest therapy Day of Discharge: 12/19/17 - Dietary and Speech Recommendations Dietitian Recommendations/Changes: To help with glycemic control, rec change to Glucerna 1.5 at 116 cc/hr 8p-8a (12 hours/day) with 170 cc H2O flushes every 4 hours to provide 2088 calories, 115g protein, and 2076 cc total fluid per day. - Follow Up Care Primary Care Physician: Julissa Lamb MD [Primary Care Provider] - Please follow up with your Primary Care Physician in: 2 weeks Please Follow Up With: Griffin Swain MD When: 2 weeks
[2017-12-19 12:31] LABS: Bedside Glucose 252 mg/dL (70-110)
--- NOTE | 2017-12-19 12:50 | PCM.DC.SUM ---
<Julio Estrada - Last Filed: 12/19/17 12:50> Discharge Date and Diagnosis - Problem List Patient Problems: Active and Suspected Problems (Last Updated 12/15/17 @ 11:14 by Jocelyn Machuca NP-C) Acute and chronic respiratory failure with hypoxia (Acute) Date of Admission: 12/13/17 Date of Discharge: 12/19/17 - Primary Discharge Diagnosis Active and Suspected Problems (Last Updated 12/15/17 @ 11:14 by Jocelyn Machuca NP-C) Acute and chronic respiratory failure with hypoxia (Acute) Aspiration pna, MSSA COPD Dysphagia Traumatic brain injury with hx intracranial hemorrhages CAD, hx CABG, ischemic cardiomyopathy DMt2 HTN Hx tobacco abuse in remission JIM Depression GERD - Secondary Discharge Diagnosis Chronic Problems (Last Updated 12/15/17 @ 11:14 by Jocelyn Machuca NP-C) Traumatic brain injury (Chronic) Intraparenchymal hemorrhage of brain (Chronic) Subarachnoid hemorrhage (Chronic) Subdural hematoma (Chronic) Intraventricular hemorrhage (Chronic) Right scapula fracture (Chronic) Tobacco abuse (Chronic) Dysphagia (Chronic) Insomnia (Chronic) Vitamin D deficiency (Chronic) Depression (Chronic) GERD (gastroesophageal reflux disease) (Chronic) BPH (benign prostatic hyperplasia) (Chronic) Encounter for long-term current use of high risk medication (Chronic) Obstructive sleep apnea (Chronic) 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) S/P CABG x3 with right radial to LAD, SVG to RCA, and SVG to OM 2; stenting to LAD in February 2017; Presence of coronary angioplasty implant and graft (Chronic) Presence of aortocoronary bypass graft (Chronic) CABG X 3 2001 ?, Radial artery -LAD, SVG-RCA, SVG-OM2 Non-ST elevation myocardial infarction (NSTEMI), initial care episode (Chronic) 02/16/17 Ischemic cardiomyopathy (Chronic) Restless leg syndrome (Chronic) Hyperlipidemia (Chronic) Hypertensive emergency (Chronic) COPD (chronic obstructive pulmonary disease) (Chronic) Hypertension (Chronic) Morbid obesity (Chronic) CAD (coronary artery disease) (Chronic) Stented coronary artery (Chronic) [facility] w/ICG-[id number]-Kquu LAD (grafts occluded X 3) 02/20/17 Former smoker (Chronic) quit February 2017 Diabetes mellitus type 2 in obese (Chronic) Hx of CABG (Chronic) CABG X3 rADIAL ARTERY-lad, svg-rca, svg-om2. MULTIPLE CORONARY STENTS Hospital Course and Treatment Imaging Results: RAD/Chest 1 View (Portable) IMPRESSION: 1. No acute cardiopulmonary pathology. 2. No interval changes when compared to 12/11/2017. CT/CTA Chest W/WO Contrast IMPRESSION: 1. No CTA evidence of central pulmonary thromboemboli but suboptimal contrast opacification of the peripheral pulmonary arteries. Peripheral pulmonary thromboemboli cannot be excluded. Ventilation/perfusion lung scan may be helpful for further evaluation. 2. No CTA evidence of thoracic aortic aneurysm or thoracic aortic dissection. 3. Minimal subsegmental atelectases in the posterior lung bases. 4. Acute fracture comminution of the right scapula. Consultations Wiliam - Pulm 12/13/17 15:38 Consult: Onc/Wound/acoustic warfare analyst Routine Comment: Reason for Consult:: Pressure ulcer Operations: None Procedures: None Summary of Care Provided: Physical exam on day of discharge: General: Resting comfortably NAD Psych: A/Ox3 normal affect HEENT: PEARRLA AT NC Neck: Supple NT CV: RRR no m/t/r/g/h Resp: CTA, no adventitious sounds, diminished throughout. Abd: [id number] Soft NT no guarding or rigidity Ext: DP2+= no edema Skin: W/D normal turgor Lymph/Heme: No active bleeding or adenopathy Neuro: CN2-12 intact Hospital course: The patient is a 67 year old M with medical history as above notable for traumatic brain injury and subsequent right sided stroke and a history of aspiration pneumonia currently on PEG feedings, with dysphagia, sleep apnea, COPD, who presented to the emergency room from the TCU with increased shortness of breath and productive cough. He is found to have leukocytosis and lactic acidosis, was in acute on chronic hypoxic respiratory failure, was felt to have recurrence of aspiration pneumonia given his history and was admitted to the PCU with pulmonary consultation. He was started on vancomycin and cefepime was added. Blood cultures were obtained. He is maintained with antibiotics, aerosol treatments, chest physiotherapy, PT OT and speech therapy involvement. He was maintained on CPAP at night. Patient did very well. Sputum cultures were obtained which grew out MSSA. He completed 7 days of IV antibiotic therapy while here and will be transitioned to p.o. Levaquin for a total of 8 days of therapy. He remained very weak and was agreeable to returning back to TCU for further rehab. Patient was not on oxygen prior to this admission but he is currently requiring oxygenation via nasal cannula and will need to continue this at least temporarily as he recovers from this hospital stay and pneumonia. He will also need to continue his CPAP at night. He will need to continue following up with pulmonology as an outpatient. He will need to continue PEG tube feedings and speech therapy. Also of note his potassium has been running low and increase supplementation has been ordered, this will necessitate monitoring his BMP closely over the next few days to ensure adequate supplementation. His magnesium and phosphorus are normal. His insulins were also adjusted while here as his blood sugars were poorly controlled. He is discharged to TCU in stable condition. This patient was seen by Julio Estrada PA-C under the supervision of Doctor Isidro. [] Discharge Diet: Low fat/ Low Cholesterol, 1800 Calorie Control Diet, 2000 mg Sodium Diet Discharge Activity: Return to Normal Activity Home Medications: Medications to take at Discharge Amitriptyline HCl 100 mg GT QHS 02/16/17 Cholecalciferol (Vitamin D3) [Vitamin D3] 5,000 unit GT DAILY 02/16/17 Duloxetine HCl 60 mg GT DAILY 02/16/17 Lactase 1 tab GT TIDCM 02/16/17 Lansoprazole [Prevacid] 30 mg GT BIDCM 02/16/17 Nitroglycerin 0.4 mg SL PRN PRN 02/16/17 Ropinirole HCl [Requip] 0.5 mg GT QHS 02/16/17 Tamsulosin HCl [Flomax] 0.4 mg GT QHS 02/16/17 traMADol [Ultram] 50 mg GT TID PRN 02/16/17 lisinopril 20 mg tablet 20 mg GT QDAY 05/20/17 Albuterol Inhaler [Ventolin Hfa] 1 - 2 puff INHALATION 4X/DAY PRN PRN 12/04/17 Amantadine Liquid 100 mg GT DAILY 12/04/17 Aspirin [Aspirin, Baby] 81 mg GT DAILY@0800 12/04/17 Budesonide Aerosol [Pulmicort Respules] 0.5 mg INHALATION BID 12/04/17 Magnesium Oxide [Mag-Ox 400] 400 mg GT TIDCM 12/04/17 Pravastatin [Pravachol] 80 mg PO QHS 12/04/17 ranitidine 150 mg capsule 150 mg GT QHS 12/04/17 Acetaminophen Liquid [Tylenol Liquid] 650 mg GT Q4H PRN PRN udc 12/19/17 Albuterol Aerosols [Ventolin Aerosols] 2.5 mg INHALATION Q2H PRN PRN vial.neb. 12/19/17 Amlodipine [Norvasc] 10 mg GT DAILY tablet 12/19/17 Bisacodyl [Dulcolax] 5 mg PO DAILY PRN PRN tablet 12/19/17 Furosemide [Lasix] 40 mg GT BIDLX tablet 12/19/17 Insulin Glargine [Lantus SoloStar Pen] 35 units SC DAILY pen 12/19/17 Insulin Glargine [Lantus SoloStar Pen] 50 units SC QHS pen 12/19/17 Insulin Lispro [Humalog KwikPen] 10 unit SC Q6 insuln.pen 12/19/17 Ipratropium/Albuterol Sulfate [Duoneb] 3 ml INHALATION Q6H.RT ampul.neb 12/19/17 Levofloxacin [Levaquin] 750 mg PO DAILY #1 tablet 12/19/17 Mag Hydrox/Al Hydrox/Simeth [Mylanta II] 30 ml GT Q6H PRN PRN udc 12/19/17 Magnesium Hydroxide [Milk Of Magnesia] 30 ml GT DAILY PRN udc 12/19/17 Metoprolol Tartrate [Lopressor (beta stepan)] 150 mg GT TID tablet 12/19/17 Mineral Oil/Petrolatum,White [Eucerin] 1 applic TOPICAL BID jar 12/19/17 Potassium Cloride Effervescent [Potassium Chl 25 Meq Eff (For Liquid)] 50 meq GT BIDCM tablet.eff 12/19/17 Pramipexole Di-HCl [Mirapex] 0.25 mg GT QHS tablet 12/19/17 Zolpidem Tartrate [Ambien] 5 mg GT QHS PRN PRN tablet 12/19/17 Following Prescrptions Were Given to Patient: Levofloxacin [Levaquin] 750 mg PO DAILY #1 tablet Primary Care Physician: Julissa Lamb MD [Primary Care Provider] - Please follow up with your Primary Care Physician in: 2 weeks Please Follow Up With: Griffin Swain MD When: 2 weeks Disposition: Nursing Home facility Minutes spent on discharge:: 35 Patient Condition:: Stable Medical Necessity - Tobacco Use Smoking Status: Former smoker Tobacco Use: Cigarettes Meaningful Use Info Meaningful Use Diagnoses (Choose all that apply): None applicable <Darnell Felix - Last Filed: 12/19/17 13:17> Discharge Date and Diagnosis - Primary Discharge Diagnosis Active and Suspected Problems (Last Updated 12/15/17 @ 11:14 by Jocelyn Machuca NP-C) Acute and chronic respiratory failure with hypoxia (Acute) - Secondary Discharge Diagnosis Chronic Problems (Last Updated 12/15/17 @ 11:14 by Jocelyn Machuca NP-C) Traumatic brain injury (Chronic) Intraparenchymal hemorrhage of brain (Chronic) Subarachnoid hemorrhage (Chronic) Subdural hematoma (Chronic) Intraventricular hemorrhage (Chronic) Right scapula fracture (Chronic) Tobacco abuse (Chronic) Dysphagia (Chronic) Insomnia (Chronic) Vitamin D deficiency (Chronic) Depression (Chronic) GERD (gastroesophageal reflux disease) (Chronic) BPH (benign prostatic hyperplasia) (Chronic) Encounter for long-term current use of high risk medication (Chronic) Obstructive sleep apnea (Chronic) 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) S/P CABG x3 with right radial to LAD, SVG to RCA, and SVG to OM 2; stenting to LAD in February 2017; Presence of coronary angioplasty implant and graft (Chronic) Presence of aortocoronary bypass graft (Chronic) CABG X 3 2001 ?, Radial artery -LAD, SVG-RCA, SVG-OM2 Non-ST elevation myocardial infarction (NSTEMI), initial care episode (Chronic) 02/16/17 Ischemic cardiomyopathy (Chronic) Restless leg syndrome (Chronic) Hyperlipidemia (Chronic) Hypertensive emergency (Chronic) COPD (chronic obstructive pulmonary disease) (Chronic) Hypertension (Chronic) Morbid obesity (Chronic) CAD (coronary artery disease) (Chronic) Stented coronary artery (Chronic) [facility] w/[id number] LAD (grafts occluded X 3) 02/20/17 Former smoker (Chronic) quit February 2017 Diabetes mellitus type 2 in obese (Chronic) Hx of CABG (Chronic) CABG X3 rADIAL ARTERY-lad, svg-rca, svg-om2. MULTIPLE CORONARY STENTS Hospital Course and Treatment Consultations 12/13/17 15:38 Consult: Onc/Wound/acoustic warfare analyst Routine Comment: Reason for Consult:: Pressure ulcer Operations: None Procedures: None Summary of Care Provided: Patient seen and examined independently. Data reviewed. I agree with the above note by the physician front office medical assistant. The patient is a 67 year old M presents with recurrent pneumonia. Additionally, patient had acute on chronic hypoxic respiratory failures. Patient's events them from traumatic brain injury and bleeds that patient had after falling downstairs roughly 2 months ago. Patient had a comp gated course at outside hospitals and other facilities. Patient was admitted and started broad-spectrum antibiotics. Culture eventually grew out MSSA that was sensitive to Levaquin. Patient was seen in consultation by pulmonology. Patient did require chest physiotherapy to help with expectoration. Patient has a very weak cough and phonation likely related with his traumatic brain injury and hemorrhagic bleeds. Patient has remained stable and patient will be discharged to transitional care unit in stable condition. [] Discharge Diet: Low fat/ Low Cholesterol, 1800 Calorie Control Diet, 2000 mg Sodium Diet Discharge Activity: Return to Normal Activity Disposition: Nursing Home facility Minutes spent on discharge:: 35 Patient Condition:: Stable Meaningful Use Info Meaningful Use Diagnoses (Choose all that apply): None applicable Code Visit Inpatient E&M: 83806 Disch Hosp
--- NOTE | 2017-12-19 13:00 | DS.PCM_ITS ---
<Julio Estrada - Last Filed: 12/19/17 12:50> Discharge Date and Diagnosis - Problem List Patient Problems: Active and Suspected Problems (Last Updated 12/15/17 @ 11:14 by Jocelyn Machuca NP-C) Acute and chronic respiratory failure with hypoxia (Acute) Date of Admission: 12/13/17 Date of Discharge: 12/19/17 - Primary Discharge Diagnosis Active and Suspected Problems (Last Updated 12/15/17 @ 11:14 by Jocelyn Machuca NP-C) Acute and chronic respiratory failure with hypoxia (Acute) Aspiration pna, MSSA COPD Dysphagia Traumatic brain injury with hx intracranial hemorrhages CAD, hx CABG, ischemic cardiomyopathy DMt2 HTN Hx tobacco abuse in remission JIM Depression GERD - Secondary Discharge Diagnosis Chronic Problems (Last Updated 12/15/17 @ 11:14 by Jocelyn Machuca NP-C) Traumatic brain injury (Chronic) Intraparenchymal hemorrhage of brain (Chronic) Subarachnoid hemorrhage (Chronic) Subdural hematoma (Chronic) Intraventricular hemorrhage (Chronic) Right scapula fracture (Chronic) Tobacco abuse (Chronic) Dysphagia (Chronic) Insomnia (Chronic) Vitamin D deficiency (Chronic) Depression (Chronic) GERD (gastroesophageal reflux disease) (Chronic) BPH (benign prostatic hyperplasia) (Chronic) Encounter for long-term current use of high risk medication (Chronic) Obstructive sleep apnea (Chronic) 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) S/P CABG x3 with right radial to LAD, SVG to RCA, and SVG to OM 2; stenting to LAD in February 2017; Presence of coronary angioplasty implant and graft (Chronic) Presence of aortocoronary bypass graft (Chronic) CABG X 3 2001 ?, Radial artery -LAD, SVG-RCA, SVG-OM2 Non-ST elevation myocardial infarction (NSTEMI), initial care episode (Chronic) 02/16/17 Ischemic cardiomyopathy (Chronic) Restless leg syndrome (Chronic) Hyperlipidemia (Chronic) Hypertensive emergency (Chronic) COPD (chronic obstructive pulmonary disease) (Chronic) Hypertension (Chronic) Morbid obesity (Chronic) CAD (coronary artery disease) (Chronic) Stented coronary artery (Chronic) [facility] w/[id number] LAD (grafts occluded X 3) 02/20/17 Former smoker (Chronic) quit February 2017 Diabetes mellitus type 2 in obese (Chronic) Hx of CABG (Chronic) CABG X3 rADIAL ARTERY-lad, svg-rca, svg-om2. MULTIPLE CORONARY STENTS Hospital Course and Treatment Imaging Results: RAD/Chest 1 View (Portable) IMPRESSION: 1. No acute cardiopulmonary pathology. 2. No interval changes when compared to 12/11/2017. CT/CTA Chest W/WO Contrast IMPRESSION: 1. No CTA evidence of central pulmonary thromboemboli but suboptimal contrast opacification of the peripheral pulmonary arteries. Peripheral pulmonary thromboemboli cannot be excluded. Ventilation/perfusion lung scan may be helpful for further evaluation. 2. No CTA evidence of thoracic aortic aneurysm or thoracic aortic dissection. 3. Minimal subsegmental atelectases in the posterior lung bases. 4. Acute fracture comminution of the right scapula. Consultations Wiliam - Pulm 12/13/17 15:38 Consult: Onc/Wound/leach runner Routine Comment: Reason for Consult:: Pressure ulcer Operations: None Procedures: None Summary of Care Provided: Physical exam on day of discharge: General: Resting comfortably NAD Psych: A/Ox3 normal affect HEENT: PEARRLA AT NC Neck: Supple NT CV: RRR no m/t/r/g/h Resp: CTA, no adventitious sounds, diminished throughout. Abd: [id number] Soft NT no guarding or rigidity Ext: DP2+= no edema Skin: W/D normal turgor Lymph/Heme: No active bleeding or adenopathy Neuro: CN2-12 intact Hospital course: The patient is a 67 year old M with medical history as above notable for traumatic brain injury and subsequent right sided stroke and a history of aspiration pneumonia currently on PEG feedings, with dysphagia, sleep apnea, COPD, who presented to the emergency room from the TCU with increased shortness of breath and productive cough. He is found to have leukocytosis and lactic acidosis, was in acute on chronic hypoxic respiratory failure, was felt to have recurrence of aspiration pneumonia given his history and was admitted to the PCU with pulmonary consultation. He was started on vancomycin and cefepime was added. Blood cultures were obtained. He is maintained with antibiotics, aerosol treatments, chest physiotherapy, PT OT and speech therapy involvement. He was maintained on CPAP at night. Patient did very well. Sputum cultures were obtained which grew out MSSA. He completed 7 days of IV antibiotic therapy while here and will be transitioned to p.o. Levaquin for a total of 8 days of therapy. He remained very weak and was agreeable to returning back to TCU for further rehab. Patient was not on oxygen prior to this admission but he is currently requiring oxygenation via nasal cannula and will need to continue this at least temporarily as he recovers from this hospital stay and pneumonia. He will also need to continue his CPAP at night. He will need to continue following up with pulmonology as an outpatient. He will need to continue PEG tube feedings and speech therapy. Also of note his potassium has been running low and increase supplementation has been ordered, this will necessitate monitoring his BMP closely over the next few days to ensure adequate supplementation. His magnesium and phosphorus are normal. His insulins were also adjusted while here as his blood sugars were poorly controlled. He is discharged to TCU in stable condition. This patient was seen by Julio Estrada PA-C under the supervision of Doctor Isidro. [] Discharge Diet: Low fat/ Low Cholesterol, 1800 Calorie Control Diet, 2000 mg Sodium Diet Discharge Activity: Return to Normal Activity Home Medications: Medications to take at Discharge Amitriptyline HCl 100 mg GT QHS 02/16/17 Cholecalciferol (Vitamin D3) [Vitamin D3] 5,000 unit GT DAILY 02/16/17 Duloxetine HCl 60 mg GT DAILY 02/16/17 Lactase 1 tab GT TIDCM 02/16/17 Lansoprazole [Prevacid] 30 mg GT BIDCM 02/16/17 Nitroglycerin 0.4 mg SL PRN PRN 02/16/17 Ropinirole HCl [Requip] 0.5 mg GT QHS 02/16/17 Tamsulosin HCl [Flomax] 0.4 mg GT QHS 02/16/17 traMADol [Ultram] 50 mg GT TID PRN 02/16/17 lisinopril 20 mg tablet 20 mg GT QDAY 05/20/17 Albuterol Inhaler [Ventolin Hfa] 1 - 2 puff INHALATION 4X/DAY PRN PRN 12/04/17 Amantadine Liquid 100 mg GT DAILY 12/04/17 Aspirin [Aspirin, Baby] 81 mg GT DAILY@0800 12/04/17 Budesonide Aerosol [Pulmicort Respules] 0.5 mg INHALATION BID 12/04/17 Magnesium Oxide [Mag-Ox 400] 400 mg GT TIDCM 12/04/17 Pravastatin [Pravachol] 80 mg PO QHS 12/04/17 ranitidine 150 mg capsule 150 mg GT QHS 12/04/17 Acetaminophen Liquid [Tylenol Liquid] 650 mg GT Q4H PRN PRN udc 12/19/17 Albuterol Aerosols [Ventolin Aerosols] 2.5 mg INHALATION Q2H PRN PRN vial.neb. 12/19/17 Amlodipine [Norvasc] 10 mg GT DAILY tablet 12/19/17 Bisacodyl [Dulcolax] 5 mg PO DAILY PRN PRN tablet 12/19/17 Furosemide [Lasix] 40 mg GT BIDLX tablet 12/19/17 Insulin Glargine [Lantus SoloStar Pen] 35 units SC DAILY pen 12/19/17 Insulin Glargine [Lantus SoloStar Pen] 50 units SC QHS pen 12/19/17 Insulin Lispro [Humalog KwikPen] 10 unit SC Q6 insuln.pen 12/19/17 Ipratropium/Albuterol Sulfate [Duoneb] 3 ml INHALATION Q6H.RT ampul.neb Levofloxacin [Levaquin] 750 mg PO DAILY #1 tablet 12/19/17 Mag Hydrox/Al Hydrox/Simeth [Mylanta II] 30 ml GT Q6H PRN PRN udc 12/19/17 Magnesium Hydroxide [Milk Of Magnesia] 30 ml GT DAILY PRN udc 12/19/17 Metoprolol Tartrate [Lopressor (beta stepan)] 150 mg GT TID tablet 12/19/17 Mineral Oil/Petrolatum,White [Eucerin] 1 applic TOPICAL BID jar 12/19/17 Potassium Cloride Effervescent [Potassium Chl 25 Meq Eff (For Liquid)] 50 meq GT BIDCM tablet.eff 12/19/17 Pramipexole Di-HCl [Mirapex] 0.25 mg GT QHS tablet 12/19/17 Zolpidem Tartrate [Ambien] 5 mg GT QHS PRN PRN tablet 12/19/17 Following Prescrptions Were Given to Patient: Levofloxacin [Levaquin] 750 mg PO DAILY #1 tablet Primary Care Physician: Julissa Lamb MD [Primary Care Provider] - Please follow up with your Primary Care Physician in: 2 weeks Please Follow Up With: Griffin Swain MD When: 2 weeks Disposition: [facility] facility Minutes spent on discharge:: 35 Patient Condition:: Stable Medical Necessity - Tobacco Use Smoking Status: Former smoker Tobacco Use: Cigarettes Meaningful Use Info Meaningful Use Diagnoses (Choose all that apply): None applicable <Darnell Felix - Last Filed: 12/19/17 13:17> Discharge Date and Diagnosis - Primary Discharge Diagnosis Active and Suspected Problems (Last Updated 12/15/17 @ 11:14 by Jocelyn Machuca NP-C) Acute and chronic respiratory failure with hypoxia (Acute) - Secondary Discharge Diagnosis Chronic Problems (Last Updated 12/15/17 @ 11:14 by Jocelyn Machuca NP-C) Traumatic brain injury (Chronic) Intraparenchymal hemorrhage of brain (Chronic) Subarachnoid hemorrhage (Chronic) Subdural hematoma (Chronic) Intraventricular hemorrhage (Chronic) Right scapula fracture (Chronic) Tobacco abuse (Chronic) Dysphagia (Chronic) Insomnia (Chronic) Vitamin D deficiency (Chronic) Depression (Chronic) GERD (gastroesophageal reflux disease) (Chronic) BPH (benign prostatic hyperplasia) (Chronic) Encounter for long-term current use of high risk medication (Chronic) Obstructive sleep apnea (Chronic) 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) S/P CABG x3 with right radial to LAD, SVG to RCA, and SVG to OM 2; stenting to LAD in February 2017; Presence of coronary angioplasty implant and graft (Chronic) Presence of aortocoronary bypass graft (Chronic) CABG X 3 2001 ?, Radial artery -LAD, SVG-RCA, SVG-OM2 Non-ST elevation myocardial infarction (NSTEMI), initial care episode (Chronic) 02/16/17 Ischemic cardiomyopathy (Chronic) Restless leg syndrome (Chronic) Hyperlipidemia (Chronic) Hypertensive emergency (Chronic) COPD (chronic obstructive pulmonary disease) (Chronic) Hypertension (Chronic) Morbid obesity (Chronic) CAD (coronary artery disease) (Chronic) Stented coronary artery (Chronic) [facility] w/[id number] LAD (grafts occluded X 3) 02/20/17 Former smoker (Chronic) quit February 2017 Diabetes mellitus type 2 in obese (Chronic) Hx of CABG (Chronic) CABG X3 rADIAL ARTERY-lad, svg-rca, svg-om2. MULTIPLE CORONARY STENTS Hospital Course and Treatment Consultations 12/13/17 15:38 Consult: Onc/Wound/leach runner Routine Comment: Reason for Consult:: Pressure ulcer Operations: None Procedures: None Summary of Care Provided: Patient seen and examined independently. Data reviewed. I agree with the above note by the physician customer service assistant. The patient is a 67 year old M presents with recurrent pneumonia. Additionally , patient had acute on chronic hypoxic respiratory failures. Patient's events them from traumatic brain injury and bleeds that patient had after falling downstairs roughly 2 months ago. Patient had a comp gated course at outside hospitals and other facilities. Patient was admitted and started broad- spectrum antibiotics. Culture eventually grew out MSSA that was sensitive to Levaquin. Patient was seen in consultation by pulmonology. Patient did require chest physiotherapy to help with expectoration. Patient has a very weak cough and phonation likely related with his traumatic brain injury and hemorrhagic bleeds. Patient has remained stable and patient will be discharged to transitional care unit in stable condition. [] Discharge Diet: Low fat/ Low Cholesterol, 1800 Calorie Control Diet, 2000 mg Sodium Diet Discharge Activity: Return to Normal Activity Disposition: [facility] facility Minutes spent on discharge:: 35 Patient Condition:: Stable Meaningful Use Info Meaningful Use Diagnoses (Choose all that apply): None applicable Code Visit Inpatient E&M: 15042 Disch Hosp
== END 2017-12-19 14:25 | disposition skilled nursing facility (03) | DRG 178 ==
LOC: ED 11:38 → PCU 15:00
PROVIDERS: Nurse Practitioner Family; Physician Assistant; Admitting Provider Hospitalist; Emergency Provider Emergency Medicine; Family Provider Family Medicine; PCP Family Medicine
DX: J69.0 Pneumonitis due to inhalation of food and vomit (principal); G81.91 Hemiplegia, unspecified affecting right dominant side; I50.22 Chronic systolic (congestive) heart failure; J96.11 Chronic respiratory failure with hypoxia; Z79.4 Long term (current) use of insulin; Z95.1 Presence of aortocoronary bypass graft; I25.10 Atherosclerotic heart disease of native coronary artery without angina pectoris; Z66 Do not resuscitate; Z95.5 Presence of coronary angioplasty implant and graft; Z93.1 Gastrostomy status; Z88.0 Allergy status to penicillin; N40.0 Benign prostatic hyperplasia without lower urinary tract symptoms; F32.9 Major depressive disorder, single episode, unspecified; K21.9 Gastro-esophageal reflux disease without esophagitis; G47.33 Obstructive sleep apnea (adult) (pediatric); Z87.891 Personal history of nicotine dependence; G25.81 Restless legs syndrome; S06.6X9S Traumatic subarachnoid hemorrhage with loss of consciousness of unspecified duration, sequela; W10.9XXS Fall (on) (from) unspecified stairs and steps, sequela; S06.369S Traumatic hemorrhage of cerebrum, unspecified, with loss of consciousness of unspecified duration, sequela; R13.10 Dysphagia, unspecified; L89.150 Pressure ulcer of sacral region, unstageable; I11.0 Hypertensive heart disease with heart failure; J44.9 Chronic obstructive pulmonary disease, unspecified; D53.9 Nutritional anemia, unspecified; E87.6 Hypokalemia; E11.9 Type 2 diabetes mellitus without complications; B95.61 Methicillin susceptible Staphylococcus aureus infection as the cause of diseases classified elsewhere
CPT/HCPCS: 36415; 36592; 36600; 71045; 71275; 80048; 80053; 80202; 81001; 82607; 82746; 82803; 82962; 83605; 83735; 83880; 84100; 84484; 85025; 85027; 87040; 87070; 87077; 87186; 87205; 87449; 87641; 92526; 93005; 94640; 94667; 94668; 97110; 97112; 97161; 97165; 97530; 97802; 99282; J7030; J7040; Q9967; A4216

== ENCOUNTER 2017-12-19 14:40 | Inpatient (IN) | payer MEDICARE, MEDICAID, SELFPAY ==
[2017-02-20 12:18] VITALS: BMI 46.4
[2017-12-19 15:07] VITALS: BP 129/60; PULSE 65; RESP 20; TEMP 36.4; O2SAT 96; BMI 31.4; BMI 31.5
--- NOTE | 2017-12-19 15:27 | NURSING ---
PT ARRIVED VIA BED FROM PCU, AT SIDE
--- NOTE | 2017-12-19 15:53 | PCM.HP.STD ---
Problem List (1) Sepsis Status: Acute (2) Healthcare associated bacteremia due to Staphylococcus aureus Status: Acute (3) Right hemiplegia Status: Chronic (4) Congestive heart failure Status: Chronic (5) Alcohol abuse Status: Chronic (6) Sleep apnea Status: Chronic (7) Diabetes mellitus Status: Chronic (8) Fall Status: Chronic (9) Intraparenchymal hemorrhage of brain Status: Chronic (10) Subarachnoid hemorrhage Status: Chronic (11) Subdural hematoma Status: Chronic (12) Intraventricular hemorrhage Status: Chronic (13) Right scapula fracture Status: Chronic (14) Tobacco abuse Status: Chronic (15) Aspiration pneumonia Status: Acute (16) Dysphagia Status: Chronic (17) Depression Status: Chronic (18) GERD (gastroesophageal reflux disease) Status: Chronic Qualifiers: (19) BPH (benign prostatic hyperplasia) Status: Chronic (20) Restless leg syndrome Status: Chronic (21) COPD (chronic obstructive pulmonary disease) Status: Chronic (22) Hypertension Status: Chronic Qualifiers: (23) CAD (coronary artery disease) Status: Chronic History of Present Illness Date of Admission: 12/19/17 Chief Complaint: Here for rehabilitation, strengthening, prior to disposition determination. The patient is a 67 year old Male with complicated past medical history presented to [facility] Emergency Department 12/13/2017 with acute shortness of breath. TCU resident with worsening shortness of breath. Recent fall, head trauma, IPH, SDH, SAH, IVH. Right hemiplegia. TF via PEG. Was on IV antibiotics for aspiration pneumonia. EKG sinus tachycardia. Chest X-ray okay. Elevated WBC, Lactate 2, Troponin negative, UA negative. CT chest negative pulmonary embolism, but atelectasis present. Broad spectrum IV antibiotics given. 12/13/2017 Admit to Hospital. Vancomycin, Cefepime, Flagyl for Aspiration pneumonia, Healthcare associated pneumonia. l IV fluids for sepsis. Pancultured. 12/14/2017 Cefepime, Vancomycin for gram negative pneumonia. Pulmonary toilet. 12/16/2017 Add VEST therapy. 12/17/2017 Wean oxygen. Sputum growing S. Aureus. 12/18/2017 Sputum S. Aureus sensitive to multiple antibiotics. Deescalate antibiotic therapy. 12/19/2017 Admit to TCU with debility, here for rehabilitation, strengthening, prior to disposition determination. Past Medical History Past Medical History (Chronic Problems): Chronic Problems (Last Updated 12/15/17 @ 11:14 by Jocelyn Machuca BROOMCORN THRESHER-C) Right hemiplegia (Chronic) Congestive heart failure (Chronic) Alcohol abuse (Chronic) Sleep apnea (Chronic) Diabetes mellitus (Chronic) Fall (Chronic) Traumatic brain injury (Chronic) Intraparenchymal hemorrhage of brain (Chronic) Subarachnoid hemorrhage (Chronic) Subdural hematoma (Chronic) Intraventricular hemorrhage (Chronic) Right scapula fracture (Chronic) Tobacco abuse (Chronic) Dysphagia (Chronic) Insomnia (Chronic) Vitamin D deficiency (Chronic) Depression (Chronic) GERD (gastroesophageal reflux disease) (Chronic) BPH (benign prostatic hyperplasia) (Chronic) Encounter for long-term current use of high risk medication (Chronic) Obstructive sleep apnea (Chronic) 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) S/P CABG x3 with right radial to LAD, SVG to RCA, and SVG to OM 2; stenting to LAD in February 2017; Presence of coronary angioplasty implant and graft (Chronic) Presence of aortocoronary bypass graft (Chronic) CABG X 3 2002 ?, Radial artery -LAD, SVG-RCA, SVG-OM2 Non-ST elevation myocardial infarction (NSTEMI), initial care episode (Chronic) 02/16/17 Ischemic cardiomyopathy (Chronic) Restless leg syndrome (Chronic) Hyperlipidemia (Chronic) Hypertensive emergency (Chronic) COPD (chronic obstructive pulmonary disease) (Chronic) Hypertension (Chronic) Morbid obesity (Chronic) CAD (coronary artery disease) (Chronic) Stented coronary artery (Chronic) [facility] w/[id number] LAD (grafts occluded X 3) 02/20/17 Former smoker (Chronic) quit February 2017 Diabetes mellitus type 2 in obese (Chronic) Hx of CABG (Chronic) CABG X3 rADIAL ARTERY-lad, svg-rca, svg-om2. MULTIPLE CORONARY STENTS Medical History: Medical History (Last Updated 12/15/17 @ 11:14 by Jocelyn Machuca BROOMCORN THRESHER-C) Encounter for long-term current use of high risk medication (Chronic) Z79.899 Obstructive sleep apnea (Chronic) G47.33 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) I25.810 S/P CABG x3 with right radial to LAD, SVG to RCA, and SVG to OM 2; stenting to LAD in February 2017; Non-ST elevation myocardial infarction (NSTEMI), initial care episode (Chronic) I21.4 02/16/17 Ischemic cardiomyopathy (Chronic) I25.5 FUO (fever of unknown origin) (Acute) Restless leg syndrome (Chronic) Hyperlipidemia (Chronic) E78.5 Hypertensive emergency (Chronic) I16.1 Demand ischemia (Resolved) I24.8 COPD (chronic obstructive pulmonary disease) (Chronic) J44.9 Hypertension (Chronic) I10 Morbid obesity (Chronic) E66.01 Systolic CHF, acute (Acute) I50.21 CAD (coronary artery disease) (Chronic) I25.10 Stented coronary artery (Chronic) [facility] w/GID-YRO-Rumu LAD (grafts occluded X 3) 02/20/17 Former smoker (Chronic) Z87.891 quit February 2017 Diabetes mellitus type 2 in obese (Chronic) E11.69, E66.9 Nicotine dependence F17.200 Allergies atorvastatin Allergy (Verified 10/16/17 09:47) Hives cilostazol Allergy (Verified 10/16/17 09:47) Hives colestipol Allergy (Verified 10/16/17 09:47) Hives diltiazem Allergy (Verified 10/16/17 09:47) Hives gemfibrozil Allergy (Verified 10/16/17 09:47) Hives naproxen [From Naprosyn] Allergy (Verified 10/16/17 09:47) Hives niacin Allergy (Verified 10/16/17 09:47) Hives Penicillins Allergy (Verified 10/16/17 09:47) Hives pravastatin Allergy (Verified 10/16/17 09:47) Hives procaine [From Novocain] Allergy (Verified 10/16/17 09:47) Hives rosuvastatin Allergy (Verified 10/16/17 09:47) Hives simvastatin Allergy (Verified 10/16/17 09:47) Hives isosorbide Adverse Reaction (Severe, Verified 10/16/17 09:47) Unknown Home Medications: Ambulatory Orders Medication Instructions Recorded Amitriptyline HCl 100 mg GT QHS 02/16/17 Cholecalciferol (Vitamin D3) 5,000 unit GT DAILY 02/16/17 [Vitamin D3] Duloxetine HCl 60 mg GT DAILY 02/16/17 Lactase 1 tab GT TIDCM 02/16/17 Lansoprazole [Prevacid] 30 mg GT BIDCM 02/16/17 Nitroglycerin 0.4 mg SL PRN PRN 02/16/17 Ropinirole HCl [Requip] 0.5 mg GT QHS 02/16/17 Tamsulosin HCl [Flomax] 0.4 mg GT QHS 02/16/17 traMADol [Ultram] 50 mg GT TID PRN 02/16/17 lisinopril 20 mg tablet 20 mg GT QDAY 05/20/17 Albuterol Inhaler [Ventolin Hfa] 1 - 2 puff INHALATION 4X/DAY PRN 12/04/17 PRN Amantadine Liquid 100 mg GT DAILY 12/04/17 Aspirin [Aspirin, Baby] 81 mg GT DAILY@0800 12/04/17 Budesonide Aerosol [Pulmicort 0.5 mg INHALATION BID 12/04/17 Respules] Magnesium Oxide [Mag-Ox 400] 400 mg GT TIDCM 12/04/17 Pravastatin [Pravachol] 80 mg PO QHS 12/04/17 ranitidine 150 mg capsule 150 mg GT QHS 12/04/17 Acetaminophen Liquid [Tylenol 650 mg GT Q4H PRN PRN udc 12/19/17 Liquid] Albuterol Aerosols [Ventolin 2.5 mg INHALATION Q2H PRN PRN 12/19/17 Aerosols] vial.neb. Amlodipine [Norvasc] 10 mg GT DAILY 12/19/17 Bisacodyl [Dulcolax] 5 mg PO DAILY PRN PRN tablet 12/19/17 Furosemide [Lasix] 40 mg GT BIDLX 12/19/17 Insulin Glargine [Lantus SoloStar 35 units SC DAILY 12/19/17 Pen] Insulin Glargine [Lantus SoloStar 50 units SC QHS 12/19/17 Pen] Insulin Lispro [Humalog KwikPen] 10 unit SC Q6 12/19/17 Ipratropium/Albuterol Sulfate 3 ml INHALATION Q6H.RT 12/19/17 [Duoneb] Levofloxacin [Levaquin] 750 mg PO DAILY 12/19/17 Mag Hydrox/Al Hydrox/Simeth 30 ml GT Q6H PRN PRN udc 12/19/17 [Mylanta II] Magnesium Hydroxide [Milk Of 30 ml GT DAILY PRN udc 12/19/17 Magnesia] Metoprolol Tartrate [Lopressor 150 mg GT TID 12/19/17 (beta stepan)] Mineral Oil/Petrolatum,White 1 applic TOPICAL BID 12/19/17 [Eucerin] Potassium Cloride Effervescent 50 meq GT BIDCM 12/19/17 [Potassium Chl 25 Meq Eff (For Liquid)] Pramipexole Di-HCl [Mirapex] 0.25 mg GT QHS 12/19/17 Zolpidem Tartrate [Ambien] 5 mg GT QHS PRN PRN tablet 12/19/17 Surgical History: Surgical History (Last Updated 12/15/17 @ 11:14 by Jocelyn Machuca NP-C) Presence of coronary angioplasty implant and graft (Chronic) Z95.5 Presence of aortocoronary bypass graft (Chronic) Z95.1 CABG X 3 2002 ?, Radial artery -LAD, SVG-RCA, SVG-OM2 Hx of CABG (Chronic) CABG X3 rADIAL ARTERY-lad, svg-rca, svg-om2. MULTIPLE CORONARY STENTS Surgical History: angioplasty, coronary bypass surgery - x 3., - - PEG tube. Psychiatric History: Depression Lives: Spouse/ Significant Other Smoking Status: Former smoker Tobacco Use: Non-smoker Alcohol: Heavy Drugs: None - *Family History Maternal Family History: Family History (Last Updated 10/16/17 @ 09:48 by Adele Bueno) Brother Heart disease Father Heart disease History Items: No pertinent history, - - Alzheimer Paternal Family History: Family History (Last Updated 10/16/17 @ 09:48 by Adele Bueno) Brother Heart disease Father Heart disease History Items: No pertinent history Review of Systems Constitutional: Denies: Chills, Fever, Weight Change HEENT: Denies: Head Aches, Sinus Congestion, Sinus Drainage Cardiovascular: Denies: Chest Pain, Palpitations Respiratory: Denies: Cough, Shortness of breath at rest, Sputum production Gastrointestinal: Denies: Abdominal Pain, Nausea, Vomiting Genitourinary: Denies: Dysuria Musculoskeletal: Denies: Joint Pain, Joint Tenderness Skin: Denies: Rash, Wounds Neurological: Denies: Numbness, Tingling, Focal weakness Psychiatric: Denies: Anxiety, Depression, Homicidal Ideations, Suicidal Ideations Hematologic/ Lymphatic: Denies: Easy Bruising, Easy Bleeding VTE Information - Inpt Only VTE Present on Admission: No VTE Mechan Device Prophylaxis: SCD's VTE Pharm Prophylaxis ordered?: No Reason prophylaxis not ordered:: Medical Contraindication - Recent brain bleed. Patient Problems: Active and Suspected Problems (Last Updated 12/15/17 @ 11:14 by Jocelyn Machuca BROOMC[employer] THRESHER-C) Sepsis (Acute) Healthcare associated bacteremia due to Staphylococcus aureus (Acute) - Physical Exam General: Alert, Oriented x3, Cooperative HEENT: Atraumatic, PERRLA, EOMI, Normocephalic Neck: Supple, No JVD, Negative Carotid Bruits Lungs: Clear to auscultation, Normal air movement Cardiovascular: Regular rate, No murmurs Abdomen: Bowel Sounds Present, Soft, Non Tender, - - PEG tube. Extremities: No edema, Capillary Refill Less than 3 Seconds, - - LUE PICC. Skin: No rashes, No breakdown Musculoskeletal: No Tenderness to Palpation of Joints or Extremities Neurological: Cranial nerves II-XII grossly intact Psych/Mental Status: Normal Affect, Appropriate Vital Signs Temp Pulse Resp BP Pulse Ox 97.6 F L 65 20 H 129/60 H 96 12/19/17 15:07 12/19/17 15:07 12/19/17 15:07 12/19/17 15:07 12/19/17 15:07 Oxygen Flow Rate (L/min) 4 Oxygen Delivery Method Nasal Cannula Weight: 111.13 kg Body Mass Index (BMI) 31.4 Finger Stick Blood Glucose 95 Assessment/Plan All Active Problems (Last Updated 12/15/17 @ 11:14 by Jocelyn Machuca BROOMCORN THRESHER-C) Sepsis (Acute) Healthcare associated bacteremia due to Staphylococcus aureus (Acute) Alcohol intoxication (Resolved) Acute respiratory failure (Acute) Aspiration pneumonia (Acute) Acute and chronic respiratory failure with hypoxia (Acute) FUO (fever of unknown origin) (Acute) Demand ischemia (Resolved) Systolic CHF, acute (Acute) Acute respiratory failure with hypoxia and hypercarbia (Resolved) Multifocal community-acquired pneumonia (Resolved) Severe sepsis (Resolved) 67 year old male with below past medical history significant for recent fall, head trauma, brain bleed, stroke, hospitalized for sepsis, shortness of breath secondary to s. aureus pneumonia, aspiration pneumonia, admitted to TCU with debility, here for rehabilitation, strengthening, prior to disposition determination. Debility - PT/OT. Dysphagia - ST. Pain - Tylenol 650MG Q4H PRN mild pain, Tramadol 50MG TID PRN moderate pain. Bowel - Miralax 17GM daily, Dulcolax 10MG daily PRN. Pneumonia vaccination - Administer Prevnar 13 and/or Pneumovax 23 as necessary. DVT prophylaxis - Hold due to recent brain bleed. COPD - Pulmicort 0.5MG BID, Duoneb 3ML Q6H, Albuterol 2.5MG Q2H PRN, Albuterol MDI 1-2 puffs 4x/day PRN. Traumatic brain injury - Amantadine 100MG daily. Restless Leg syndrome - Elavil 100MG QHS, Mirapex 0.25MG QHS. Hypertension - Metoprolol 150MG TID, Lisinopril 20MG daily, Amlodipine 10MG daily. Coronary Artery Disease - Metoprolol 150MG TID, Lisinopril 20MG daily, Aspirin 81MG daily. Vitamin D deficiency - D3 5000IU daily. Depression - Duloxetine 60MG daily. Edema - Lasix 40MG BID. Diabetes Mellitus II - Lantus 33 units QAM, 50 units QHS, Humalog 10 units SC Q6H. Lactose intolerance - Lactase 1 tablet TID. GERD - Lansoprazole 30MG BID, Ranitidine 150MG QHS, Mylanta 2 30ML GT Q6H PRN. S. Aureus HCAP - Levaquin 750MG daily thru 12/20/2017. Hypomagnesemia - Magnesium Oxide 40MG TID. Skin irritation - Eucerin BID bilateral legs, feet. Nutrition - Pivot 1.5 108ML/hour. Hypokalemia - KCL 50MEQ BID. Hyperlipidemia - Pravastatin 80MG QHS. BPH - Tamsulosin 0.4MG QHS. Insomnia - Zolpidem 5MG QHS PRN.
--- NOTE | 2017-12-19 16:03 | HP.PCM_ITS ---
Problem List (1) Sepsis Status: Acute (2) Healthcare associated bacteremia due to Staphylococcus aureus Status: Acute (3) Right hemiplegia Status: Chronic (4) Congestive heart failure Status: Chronic (5) Alcohol abuse Status: Chronic (6) Sleep apnea Status: Chronic (7) Diabetes mellitus Status: Chronic (8) Fall Status: Chronic (9) Intraparenchymal hemorrhage of brain Status: Chronic (10) Subarachnoid hemorrhage Status: Chronic (11) Subdural hematoma Status: Chronic (12) Intraventricular hemorrhage Status: Chronic (13) Right scapula fracture Status: Chronic (14) Tobacco abuse Status: Chronic (15) Aspiration pneumonia Status: Acute (16) Dysphagia Status: Chronic (17) Depression Status: Chronic (18) GERD (gastroesophageal reflux disease) Status: Chronic Qualifiers: (19) BPH (benign prostatic hyperplasia) Status: Chronic (20) Restless leg syndrome Status: Chronic (21) COPD (chronic obstructive pulmonary disease) Status: Chronic (22) Hypertension Status: Chronic Qualifiers: (23) CAD (coronary artery disease) Status: Chronic History of Present Illness Date of Admission: 12/19/17 Chief Complaint: Here for rehabilitation, strengthening, prior to disposition determination. The patient is a 67 year old Male with complicated past medical history presented to [facility] Emergency Department 12/13/2017 with acute shortness of breath. TCU resident with worsening shortness of breath. Recent fall, head trauma, IPH, SDH, SAH, IVH. Right hemiplegia. TF via PEG. Was on IV antibiotics for aspiration pneumonia. EKG sinus tachycardia. Chest X-ray okay. Elevated WBC, Lactate 2, Troponin negative, UA negative. CT chest negative pulmonary embolism, but atelectasis present. Broad spectrum IV antibiotics given. 12/13/2017 Admit to Hospital. Vancomycin, Cefepime, Flagyl for Aspiration pneumonia, Healthcare associated pneumonia. l IV fluids for sepsis. Pancultured. 12/14/2017 Cefepime, Vancomycin for gram negative pneumonia. Pulmonary toilet. 12/16/2017 Add VEST therapy. 12/17/2017 Wean oxygen. Sputum growing S. Aureus. 12/18/2017 Sputum S. Aureus sensitive to multiple antibiotics. Deescalate antibiotic therapy. 12/19/2017 Admit to TCU with debility, here for rehabilitation, strengthening, prior to disposition determination. Past Medical History Past Medical History (Chronic Problems): Chronic Problems (Last Updated 12/15/17 @ 11:14 by Jocelyn Machuca COLLECTION CORRESPONDENT-C) Right hemiplegia (Chronic) Congestive heart failure (Chronic) Alcohol abuse (Chronic) Sleep apnea (Chronic) Diabetes mellitus (Chronic) Fall (Chronic) Traumatic brain injury (Chronic) Intraparenchymal hemorrhage of brain (Chronic) Subarachnoid hemorrhage (Chronic) Subdural hematoma (Chronic) Intraventricular hemorrhage (Chronic) Right scapula fracture (Chronic) Tobacco abuse (Chronic) Dysphagia (Chronic) Insomnia (Chronic) Vitamin D deficiency (Chronic) Depression (Chronic) GERD (gastroesophageal reflux disease) (Chronic) BPH (benign prostatic hyperplasia) (Chronic) Encounter for long-term current use of high risk medication (Chronic) Obstructive sleep apnea (Chronic) 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) S/P CABG x3 with right radial to LAD, SVG to RCA, and SVG to OM 2; stenting to LAD in February 2017; Presence of coronary angioplasty implant and graft (Chronic) Presence of aortocoronary bypass graft (Chronic) CABG X 3 2002 ?, Radial artery -LAD, SVG-RCA, SVG-OM2 Non-ST elevation myocardial infarction (NSTEMI), initial care episode (Chronic) 02/16/17 Ischemic cardiomyopathy (Chronic) Restless leg syndrome (Chronic) Hyperlipidemia (Chronic) Hypertensive emergency (Chronic) COPD (chronic obstructive pulmonary disease) (Chronic) Hypertension (Chronic) Morbid obesity (Chronic) CAD (coronary artery disease) (Chronic) Stented coronary artery (Chronic) [facility] w/[id number] LAD (grafts occluded X 3) 02/20/17 Former smoker (Chronic) quit February 2017 Diabetes mellitus type 2 in obese (Chronic) Hx of CABG (Chronic) CABG X3 rADIAL ARTERY-lad, svg-rca, svg-om2. MULTIPLE CORONARY STENTS Medical History: Medical History (Last Updated 12/15/17 @ 11:14 by Jocelyn Machuca COLLECTION CORRESPONDENT-C) Encounter for long-term current use of high risk medication (Chronic) Z79.899 Obstructive sleep apnea (Chronic) G47.33 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) I25.810 S/P CABG x3 with right radial to LAD, SVG to RCA, and SVG to OM 2; stenting to LAD in February 2017; Non-ST elevation myocardial infarction (NSTEMI), initial care episode (Chronic) I21.4 02/16/17 Ischemic cardiomyopathy (Chronic) I25.5 FUO (fever of unknown origin) (Acute) Restless leg syndrome (Chronic) Hyperlipidemia (Chronic) E78.5 Hypertensive emergency (Chronic) I16.1 Demand ischemia (Resolved) I24.8 COPD (chronic obstructive pulmonary disease) (Chronic) J44.9 Hypertension (Chronic) I10 Morbid obesity (Chronic) E66.01 Systolic CHF, acute (Acute) I50.21 CAD (coronary artery disease) (Chronic) I25.10 Stented coronary artery (Chronic) [facility] w/[id number] LAD (grafts occluded X 3) 02/20/17 Former smoker (Chronic) Z87.891 quit February 2017 Diabetes mellitus type 2 in obese (Chronic) E11.69, E66.9 Nicotine dependence F17.200 Allergies atorvastatin Allergy (Verified 10/16/17 09:47) Hives cilostazol Allergy (Verified 10/16/17 09:47) Hives colestipol Allergy (Verified 10/16/17 09:47) Hives diltiazem Allergy (Verified 10/16/17 09:47) Hives gemfibrozil Allergy (Verified 10/16/17 09:47) Hives naproxen [From Naprosyn] Allergy (Verified 10/16/17 09:47) Hives niacin Allergy (Verified 10/16/17 09:47) Hives Penicillins Allergy (Verified 10/16/17 09:47) Hives pravastatin Allergy (Verified 10/16/17 09:47) Hives procaine [From Novocain] Allergy (Verified 10/16/17 09:47) Hives rosuvastatin Allergy (Verified 10/16/17 09:47) Hives simvastatin Allergy (Verified 10/16/17 09:47) Hives isosorbide Adverse Reaction (Severe, Verified 10/16/17 09:47) Unknown Home Medications: Ambulatory Orders Medication Instructions Recorded Amitriptyline HCl 100 mg GT QHS 02/16/17 Cholecalciferol (Vitamin D3) 5,000 unit GT DAILY 02/16/17 [Vitamin D3] Duloxetine HCl 60 mg GT DAILY 02/16/17 Lactase 1 tab GT TIDCM 02/16/17 Lansoprazole [Prevacid] 30 mg GT BIDCM 02/16/17 Nitroglycerin 0.4 mg SL PRN PRN 02/16/17 Ropinirole HCl [Requip] 0.5 mg GT QHS 02/16/17 Tamsulosin HCl [Flomax] 0.4 mg GT QHS 02/16/17 traMADol [Ultram] 50 mg GT TID PRN 02/16/17 lisinopril 20 mg tablet 20 mg GT QDAY 05/20/17 Albuterol Inhaler [Ventolin Hfa] 1 - 2 puff INHALATION 4X/DAY PRN 12/04/17 PRN Amantadine Liquid 100 mg GT DAILY 12/04/17 Aspirin [Aspirin, Baby] 81 mg GT DAILY@0800 12/04/17 Budesonide Aerosol [Pulmicort 0.5 mg INHALATION BID 12/04/17 Respules] Magnesium Oxide [Mag-Ox 400] 400 mg GT TIDCM 12/04/17 Pravastatin [Pravachol] 80 mg PO QHS 12/04/17 ranitidine 150 mg capsule 150 mg GT QHS 12/04/17 Acetaminophen Liquid [Tylenol 650 mg GT Q4H PRN PRN udc 12/19/17 Liquid] Albuterol Aerosols [Ventolin 2.5 mg INHALATION Q2H PRN PRN 12/19/17 Aerosols] vial.neb. Amlodipine [Norvasc] 10 mg GT DAILY 12/19/17 Bisacodyl [Dulcolax] 5 mg PO DAILY PRN PRN tablet 12/19/17 Furosemide [Lasix] 40 mg GT BIDLX 12/19/17 Insulin Glargine [Lantus SoloStar 35 units SC DAILY 12/19/17 Pen] Insulin Glargine [Lantus SoloStar 50 units SC QHS 12/19/17 Pen] Insulin Lispro [Humalog KwikPen] 10 unit SC Q6 12/19/17 Ipratropium/Albuterol Sulfate 3 ml INHALATION Q6H.RT 12/19/17 [Duoneb] Levofloxacin [Levaquin] 750 mg PO DAILY 12/19/17 Mag Hydrox/Al Hydrox/Simeth 30 ml GT Q6H PRN PRN udc 12/19/17 [Mylanta II] Magnesium Hydroxide [Milk Of 30 ml GT DAILY PRN udc 12/19/17 Magnesia] Metoprolol Tartrate [Lopressor 150 mg GT TID 12/19/17 (beta stepan)] Mineral Oil/Petrolatum,White 1 applic TOPICAL BID 12/19/17 [Eucerin] Potassium Cloride Effervescent 50 meq GT BIDCM 12/19/17 [Potassium Chl 25 Meq Eff (For Liquid)] Pramipexole Di-HCl [Mirapex] 0.25 mg GT QHS 12/19/17 Zolpidem Tartrate [Ambien] 5 mg GT QHS PRN PRN tablet 12/19/17 Surgical History: Surgical History (Last Updated 12/15/17 @ 11:14 by Jocelyn Machuca NP-C) Presence of coronary angioplasty implant and graft (Chronic) Z95.5 Presence of aortocoronary bypass graft (Chronic) Z95.1 CABG X 3 2002 ?, Radial artery -LAD, SVG-RCA, SVG-OM2 Hx of CABG (Chronic) CABG X3 rADIAL ARTERY-lad, svg-rca, svg-om2. MULTIPLE CORONARY STENTS Surgical History: angioplasty, coronary bypass surgery - x 3., - - PEG tube. Psychiatric History: Depression Lives: Spouse/ Significant Other Smoking Status: Former smoker Tobacco Use: Non-smoker Alcohol: Heavy Drugs: None - *Family History Maternal Family History: Family History (Last Updated 10/16/17 @ 09:48 by Adele Bueno) Brother Heart disease Father Heart disease History Items: No pertinent history, - - Alzheimer Paternal Family History: Family History (Last Updated 10/16/17 @ 09:48 by Adele Bueno) Brother Heart disease Father Heart disease History Items: No pertinent history Review of Systems Constitutional: Denies: Chills, Fever, Weight Change HEENT: Denies: Head Aches, Sinus Congestion, Sinus Drainage Cardiovascular: Denies: Chest Pain, Palpitations Respiratory: Denies: Cough, Shortness of breath at rest, Sputum production Gastrointestinal: Denies: Abdominal Pain, Nausea, Vomiting Genitourinary: Denies: Dysuria Musculoskeletal: Denies: Joint Pain, Joint Tenderness Skin: Denies: Rash, Wounds Neurological: Denies: Numbness, Tingling, Focal weakness Psychiatric: Denies: Anxiety, Depression, Homicidal Ideations, Suicidal Ideations Hematologic/ Lymphatic: Denies: Easy Bruising, Easy Bleeding VTE Information - Inpt Only VTE Present on Admission: No VTE Mechan Device Prophylaxis: SCD's VTE Pharm Prophylaxis ordered?: No Reason prophylaxis not ordered:: Medical Contraindication - Recent brain bleed. Patient Problems: Active and Suspected Problems (Last Updated 12/15/17 @ 11:14 by Jocelyn Machuca COLLECTION CORRESPONDENT-C) Sepsis (Acute) Healthcare associated bacteremia due to Staphylococcus aureus (Acute) - Physical Exam General: Alert, Oriented x3, Cooperative HEENT: Atraumatic, PERRLA, EOMI, Normocephalic Neck: Supple, No JVD, Negative Carotid Bruits Lungs: Clear to auscultation, Normal air movement Cardiovascular: Regular rate, No murmurs Abdomen: Bowel Sounds Present, Soft, Non Tender, - - PEG tube. Extremities: No edema, Capillary Refill Less than 3 Seconds, - - LUE PICC. Skin: No rashes, No breakdown Musculoskeletal: No Tenderness to Palpation of Joints or Extremities Neurological: Cranial nerves II-XII grossly intact Psych/Mental Status: Normal Affect, Appropriate Vital Signs Temp Pulse Resp BP Pulse Ox 97.6 F L 65 20 H 129/60 H 96 12/19/17 15:07 12/19/17 15:07 12/19/17 15:07 12/19/17 15:07 12/19/17 15:07 Oxygen Flow Rate (L/min) 4 Oxygen Delivery Method Nasal Cannula Weight: 111.13 kg Body Mass Index (BMI) 31.4 Finger Stick Blood Glucose 95 Assessment/Plan All Active Problems (Last Updated 12/15/17 @ 11:14 by Jocelyn Machuca NP-C) Sepsis (Acute) Healthcare associated bacteremia due to Staphylococcus aureus (Acute) Alcohol intoxication (Resolved) Acute respiratory failure (Acute) Aspiration pneumonia (Acute) Acute and chronic respiratory failure with hypoxia (Acute) FUO (fever of unknown origin) (Acute) Demand ischemia (Resolved) Systolic CHF, acute (Acute) Acute respiratory failure with hypoxia and hypercarbia (Resolved) Multifocal community-acquired pneumonia (Resolved) Severe sepsis (Resolved) 67 year old male with below past medical history significant for recent fall, head trauma, brain bleed, stroke, hospitalized for sepsis, shortness of breath secondary to s. aureus pneumonia, aspiration pneumonia, admitted to TCU with debility, here for rehabilitation, strengthening, prior to disposition determination. * Debility - PT/OT. * Dysphagia - ST. * Pain - Tylenol 650MG Q4H PRN mild pain, Tramadol 50MG TID PRN moderate pain. * Bowel - Miralax 17GM daily, Dulcolax 10MG daily PRN. * Pneumonia vaccination - Administer Prevnar 13 and/or Pneumovax 23 as necessary. * DVT prophylaxis - Hold due to recent brain bleed. * COPD - Pulmicort 0.5MG BID, Duoneb 3ML Q6H, Albuterol 2.5MG Q2H PRN, Albuterol MDI 1-2 puffs 4x/day PRN. * Traumatic brain injury - Amantadine 100MG daily. * Restless Leg syndrome - Elavil 100MG QHS, Mirapex 0.25MG QHS. * Hypertension - Metoprolol 150MG TID, Lisinopril 20MG daily, Amlodipine 10MG daily. * Coronary Artery Disease - Metoprolol 150MG TID, Lisinopril 20MG daily, Aspirin 81MG daily. * Vitamin D deficiency - D3 5000IU daily. * Depression - Duloxetine 60MG daily. * Edema - Lasix 40MG BID. * Diabetes Mellitus II - Lantus 33 units QAM, 50 units QHS, Humalog 10 units SC Q6H. * Lactose intolerance - Lactase 1 tablet TID. * GERD - Lansoprazole 30MG BID, Ranitidine 150MG QHS, Mylanta 2 30ML GT Q6H PRN. * S. Aureus HCAP - Levaquin 750MG daily thru 12/20/2017. * Hypomagnesemia - Magnesium Oxide 40MG TID. * Skin irritation - Eucerin BID bilateral legs, feet. * Nutrition - Pivot 1.5 108ML/hour. * Hypokalemia - KCL 50MEQ BID. * Hyperlipidemia - Pravastatin 80MG QHS. * BPH - Tamsulosin 0.4MG QHS. * Insomnia - Zolpidem 5MG QHS PRN.
[2017-12-19] MEDS: Insulin Lispro 100 UNIT/ML INSULN.PEN 10 UNIT SC (18:05)
--- NOTE | 2017-12-19 18:13 | NURSING ---
Mouth care given. Peg tube flushed per orders.
[2017-12-19 20:05] VITALS: PULSE 79; RESP 17; O2SAT 99
[2017-12-19] MEDS: Ipratropium/Albuterol Sulfate 3 ML AMPUL.NEB INHALATION (20:05)
[2017-12-19] MEDS: Budesonide Respules 0.5 MG/2 ML AMPUL.NEB. INHALATION (20:05)
[2017-12-19] MEDS: Pivot 1.5 Cal 1,000 ML 108 ML GT (20:33)
[2017-12-19] MEDS: Pravastatin 80 MG Tablet PO (20:41)
[2017-12-19] MEDS: Amitriptyline 100 MG Tablet GT (20:41)
[2017-12-19] MEDS: Pramipexole Di-HCl 0.25 MG Tablet GT (20:41)
[2017-12-19] MEDS: Magnesium Oxide 400 MG Tablet GT (20:41)
[2017-12-19 20:42] VITALS: BP 124/67; PULSE 79
[2017-12-19] MEDS: Metoprolol Tartrate 50 MG Tablet 150 MG GT (20:42)
[2017-12-19] MEDS: Tamsulosin HCl 0.4 MG Capsule PO (20:55)
[2017-12-19 22:25] LABS: Bedside Glucose 149 mg/dL (70-110)
[2017-12-19] MEDS: Zolpidem Tartrate 5 MG Tablet GT (22:57)
[2017-12-19] MEDS: 0.9% NaCl PICC Flush IV (23:04)
[2017-12-20] VITALS (9 sets, daily range): BP systolic 135–149; BP diastolic 71–89; PULSE 77–98; RESP 16–18; TEMP 36.2; O2SAT 95–100
[2017-12-20 00:26] LABS: Bedside Glucose 222 mg/dL (70-110)
[2017-12-20] MEDS: Insulin Lispro 100 UNIT/ML INSULN.PEN 10 UNIT SC ×4 (00:35→17:41)
[2017-12-20] MEDS: 0.9% NaCl PICC Flush IV ×2 (04:36→12:07)
[2017-12-20] MEDS: levoFLOXacin 750 MG Tablet GT (04:44)
[2017-12-20] MEDS: amLODIPine 10 MG Tablet GT (04:44)
[2017-12-20] MEDS: Furosemide 40 MG Tablet GT ×2 (04:44→13:59)
[2017-12-20] MEDS: Polyethylene Glycol 3350 17 GM PACKET GT (04:44)
[2017-12-20] MEDS: Lisinopril 20 MG Tablet GT (04:44)
[2017-12-20] MEDS: Metoprolol Tartrate 50 MG Tablet 150 MG GT ×3 (04:44→19:52)
[2017-12-20] MEDS: Acetaminophen 650 MG/20 ML UDC GT (04:44)
[2017-12-20] MEDS: AMANTADINE HCL 50 MG/5ML 100 MG GT (04:46)
[2017-12-20 05:02] LABS: Absolute Lymphocyte Count 1.71 X10^3/ul (0.83-4.51); Absolute Neutrophil Count 5.4 X10^3/uL (2.0-7.7); Basophil# 0.04 X10^3/uL; Basophil% 0.5 % (0-1); Eosinophil# 0.07 X10^3/uL; Eosinophils% 0.9 % (0-5); Hematocrit 33.8 % (40-54); Hemoglobin 10.7 g/dl (13.0-16.5); Lymphocyte # 1.71 X10^3/ul (4.0); Lymphocyte % 21.6 % (19-41); Mean Corp Hgb Conc 31.7 g/gl (32-36); Mean Corpuscular Hgb 31.8 pg (27.0-32.0); Mean Corpuscular Volume 100.3 fL (80-94); Mean Platelet Vol. 13.2 fl (6.2-12.0); Monocyte# 0.67 X10^3/uL; Monocyte% 8.4 % (0-10); Neutrophil # 5.42 X10^3/uL (2.7-7.7); Neutrophil % 68.3 % (47-70); Platelet Count 171 K/mm3 (150-450); RBC Distribution Width CV 15.3 % (11.6-14.6); Red Blood Count 3.37 M/mm3 (4.6-6.2); White Blood Count 7.9 K/mm3 (4.4-11.0)
[2017-12-20 05:06] LABS: Anion Gap 8 (5-15); BUN 27 mg/dL (7-18); BUN/Creat Ratio 53.3 RATIO (10-20); Chloride 104 mmol/L (98-107); Creatinine, Serum 0.51 mg/dL (0.70-1.30); EST Glomerular Filtration Rate 173 mL/min (>60); Est Glom Filt Rate - Afr Amer 210 mL/min (>60); Estimated Creatinine Clearance 83.34 ml/min; Glucose 331 mg/dL (74-106); Potassium 3.6 mmol/L (3.5-5.1); Sodium Level 143 mmol/L (136-145)
[2017-12-20 05:09] LABS: POSITIVE COUNT NO; POSITIVE DIFFERENTIAL NO; POSITIVE MORPHOLOGY NO
[2017-12-20] MEDS: Pivot 1.5 Cal 1,000 ML 108 ML GT ×2 (06:33→20:03)
[2017-12-20] MEDS: Budesonide Respules 0.5 MG/2 ML AMPUL.NEB. INHALATION ×2 (07:07→18:57)
[2017-12-20] MEDS: Ipratropium/Albuterol Sulfate 3 ML AMPUL.NEB INHALATION ×3 (07:07→18:57)
[2017-12-20 07:26] LABS: Bedside Glucose 315 mg/dL (70-110)
[2017-12-20] MEDS: Magnesium Oxide 400 MG Tablet GT ×3 (08:34→17:40)
[2017-12-20] MEDS: Aspirin 81 MG TAB.CHEW GT (08:34)
[2017-12-20] MEDS: traMADol 50 MG Tablet GT ×3 (08:37→19:56)
--- NOTE | 2017-12-20 08:47 | NURSING ---
Pivot stopped per order, meds given via PEG tube. pt c/o pain rt hip 01/15, ultram given. Tylenol ineffective. Pt resting in bed, staff going to get pt up to chair via faustino. Soft touch call light in reach.
[2017-12-20 11:40] LABS: Bedside Glucose 267 mg/dL (70-110)
--- NOTE | 2017-12-20 12:12 | NURSING ---
TB test not given, pt had positive reactor last week, chest xray done negative.
[2017-12-20 17:15] LABS: Bedside Glucose 205 mg/dL (70-110)
[2017-12-20] MEDS: Amitriptyline 100 MG Tablet GT (19:51)
[2017-12-20] MEDS: Pramipexole Di-HCl 0.25 MG Tablet GT (19:51)
[2017-12-20] MEDS: Pravastatin 80 MG Tablet PO (19:52)
[2017-12-20] MEDS: Bisacodyl 10 MG Suppository RECTAL (19:52)
[2017-12-20] MEDS: Tamsulosin HCl 0.4 MG Capsule PO (19:52)
[2017-12-20 21:16] LABS: Bedside Glucose 158 mg/dL (70-110)
--- NOTE | 2017-12-20 21:16 | NURSING ---
Dr. Luis updated on pt not feeling well and strong odor to urine. New order to straight cath x1 for UA and culture.
[2017-12-20 21:55] LABS: Bacteria 0 SEEN /hpf (None Seen); Mucous, Urine 0 SEEN /hpf (<or=2+); Red Blood Cells-Urine 0 SEEN /hpf (0-5); Squamous Epithelial Cells - UA 0 SEEN /hpf (0-5); White Blood Cells 0 SEEN /hpf (0-5)
[2017-12-20 21:57] LABS: Color, Urine Yellow (Yellow); Glucose, Dipstick 50 mg/dl (Normal); Ketone-Dipstick Negative (Negative); Leukocyte Esterase-Dipstick Negative /ul (Negative); Nitrite-Dipstick Negative (Negative); Occult Blood-Urine Negative /ul (Negative); Protein-Dipstick Negative (Negative); Specific Gravity, Urine 1.015 (1.002-1.030); Urine Bilirubin Dipstick Negative (Negative); Urine Clarity Clear (Clear); Urine Urobilinogen Normal (Normal)
[2017-12-21] VITALS (9 sets, daily range): BP systolic 122–142; BP diastolic 55–85; PULSE 86–101; RESP 12–18; TEMP 36.5; O2SAT 94–99
[2017-12-21] MEDS: Insulin Lispro 100 UNIT/ML INSULN.PEN 10 UNIT SC ×4 (00:14→17:23)
[2017-12-21 00:25] LABS: Bedside Glucose 289 mg/dL (70-110)
[2017-12-21] MEDS: Ipratropium/Albuterol Sulfate 3 ML AMPUL.NEB INHALATION ×4 (01:20→19:16)
[2017-12-21] MEDS: Pivot 1.5 Cal 1,000 ML 108 ML GT ×2 (04:16→20:20)
[2017-12-21] MEDS: Metoprolol Tartrate 50 MG Tablet 150 MG GT ×3 (04:17→20:19)
[2017-12-21] MEDS: amLODIPine 10 MG Tablet GT (04:17)
[2017-12-21] MEDS: Lisinopril 20 MG Tablet GT (04:18)
[2017-12-21] MEDS: Furosemide 40 MG Tablet GT ×2 (04:18→14:44)
[2017-12-21] MEDS: Polyethylene Glycol 3350 17 GM PACKET GT (04:18)
[2017-12-21] MEDS: AMANTADINE HCL 50 MG/5ML 100 MG GT (04:18)
[2017-12-21] MEDS: 0.9% NaCl PICC Flush IV ×2 (04:26→14:44)
[2017-12-21 06:45] LABS: Bedside Glucose 339 mg/dL (70-110)
[2017-12-21] MEDS: Budesonide Respules 0.5 MG/2 ML AMPUL.NEB. INHALATION ×2 (07:30→19:16)
[2017-12-21 07:45] LABS: Bedside Glucose 143 mg/dL (70-110)
[2017-12-21] MEDS: Magnesium Oxide 400 MG Tablet GT ×3 (08:09→17:18)
[2017-12-21] MEDS: Aspirin 81 MG TAB.CHEW GT (08:09)
[2017-12-21] MEDS: traMADol 50 MG Tablet GT (10:26)
[2017-12-21 11:26] LABS: Bedside Glucose 328 mg/dL (70-110)
[2017-12-21 17:20] LABS: Bedside Glucose 249 mg/dL (70-110)
[2017-12-21] MEDS: Pravastatin 80 MG Tablet PO (20:19)
[2017-12-21] MEDS: Tamsulosin HCl 0.4 MG Capsule PO (20:19)
[2017-12-21] MEDS: Pramipexole Di-HCl 0.25 MG Tablet GT (20:19)
[2017-12-21] MEDS: Amitriptyline 100 MG Tablet GT (20:19)
[2017-12-21 21:46] LABS: Bedside Glucose 224 mg/dL (70-110)
[2017-12-22] VITALS (7 sets, daily range): BP systolic 116–146; BP diastolic 66–80; PULSE 84–105; RESP 18–21; TEMP 36.8; O2SAT 95–100
[2017-12-22 00:16] LABS: Bedside Glucose 295 mg/dL (70-110)
[2017-12-22] MEDS: Insulin Lispro 100 UNIT/ML INSULN.PEN 10 UNIT SC ×2 (00:21→07:16)
[2017-12-22] MEDS: Pivot 1.5 Cal 1,000 ML 108 ML GT (03:43)
[2017-12-22] MEDS: Furosemide 40 MG Tablet GT ×2 (05:59→13:35)
[2017-12-22] MEDS: Metoprolol Tartrate 50 MG Tablet 150 MG GT ×3 (05:59→20:27)
[2017-12-22] MEDS: Lisinopril 20 MG Tablet GT (05:59)
[2017-12-22] MEDS: amLODIPine 10 MG Tablet GT (05:59)
[2017-12-22] MEDS: Polyethylene Glycol 3350 17 GM PACKET GT (06:00)
[2017-12-22 07:06] LABS: Bedside Glucose 322 mg/dL (70-110)
[2017-12-22] MEDS: Ipratropium/Albuterol Sulfate 3 ML AMPUL.NEB INHALATION ×3 (07:30→18:35)
[2017-12-22] MEDS: Budesonide Respules 0.5 MG/2 ML AMPUL.NEB. INHALATION ×2 (07:35→18:35)
--- NOTE | 2017-12-22 08:20 | NURSING ---
Dr. Luis reviewed blood sugars, insulins increased.
[2017-12-22] MEDS: AMANTADINE HCL 50 MG/5ML 100 MG GT (09:01)
[2017-12-22] MEDS: Magnesium Oxide 400 MG Tablet GT ×3 (09:01→17:05)
[2017-12-22] MEDS: Aspirin 81 MG TAB.CHEW GT (09:01)
[2017-12-22] MEDS: traMADol 50 MG Tablet GT (09:06)
--- NOTE | 2017-12-22 10:30 | CPS ---
did not do vest, pt sleeping
[2017-12-22 11:46] LABS: Bedside Glucose 254 mg/dL (70-110)
[2017-12-22] MEDS: Insulin Lispro 100 UNIT/ML INSULN.PEN 27 UNIT SC ×2 (13:34→22:04)
--- NOTE | 2017-12-22 14:05 | CASEMGMT ---
Insurance Clinical information faxed. Pending continued stay approval at this time. Auth#[id number] Nora JERONIMO, SLEEPING CAR SERVICE ATTENDANT
[2017-12-22 14:06] LABS: Bedside Glucose 240 mg/dL (70-110)
[2017-12-22 17:11] LABS: Bedside Glucose 93 mg/dL (70-110)
[2017-12-22] MEDS: 0.9% NaCl PICC Flush IV (18:30)
[2017-12-22] MEDS: Amitriptyline 100 MG Tablet GT (20:26)
[2017-12-22] MEDS: Tamsulosin HCl 0.4 MG Capsule PO (20:26)
[2017-12-22] MEDS: Pramipexole Di-HCl 0.25 MG Tablet GT (20:27)
[2017-12-22] MEDS: Pravastatin 80 MG Tablet PO (20:27)
[2017-12-22 21:01] LABS: Bedside Glucose 126 mg/dL (70-110)
[2017-12-23] VITALS (7 sets, daily range): BP systolic 100–118; BP diastolic 59–71; PULSE 82–112; RESP 18; TEMP 36.1; O2SAT 91
[2017-12-23 00:26] LABS: Bedside Glucose 141 mg/dL (70-110)
[2017-12-23] MEDS: Ipratropium/Albuterol Sulfate 3 ML AMPUL.NEB INHALATION ×3 (01:23→19:02)
[2017-12-23 02:16] LABS: Bedside Glucose 214 mg/dL (70-110)
[2017-12-23] MEDS: Pivot 1.5 Cal 1,000 ML 108 ML GT ×3 (03:46→20:15)
[2017-12-23] MEDS: AMANTADINE HCL 50 MG/5ML 100 MG GT (05:47)
[2017-12-23] MEDS: Metoprolol Tartrate 50 MG Tablet 150 MG GT ×3 (05:48→20:17)
[2017-12-23] MEDS: Furosemide 40 MG Tablet GT ×2 (05:48→13:55)
[2017-12-23] MEDS: Lisinopril 20 MG Tablet GT (05:50)
[2017-12-23] MEDS: amLODIPine 10 MG Tablet GT (05:50)
[2017-12-23] MEDS: Polyethylene Glycol 3350 17 GM PACKET GT (05:50)
[2017-12-23] MEDS: Insulin Lispro 100 UNIT/ML INSULN.PEN 27 UNIT SC ×3 (06:47→22:07)
[2017-12-23] MEDS: Budesonide Respules 0.5 MG/2 ML AMPUL.NEB. INHALATION ×2 (07:05→19:02)
[2017-12-23 07:15] LABS: Bedside Glucose 317 mg/dL (70-110)
[2017-12-23] MEDS: Magnesium Oxide 400 MG Tablet GT ×3 (09:42→18:13)
[2017-12-23] MEDS: Aspirin 81 MG TAB.CHEW GT (09:42)
--- NOTE | 2017-12-23 09:56 | NURSING ---
TF stopped at 0930. No residual, PEG in place.
--- NOTE | 2017-12-23 10:34 | CASEMGMT ---
Plan of care meeting held. Resident present as well as resident spouse. No discharge date set at this time. Resident to continue to with further care and treatment on the Transitional Care Unit. Resident currently has a pending [facility] application. Resident spouse has been working with [facility] on this. Team recommending for resident to transition to a facility at time of discharge as this time. Resident pending insurance approval. Resident spouse voicing that first choice for prison at this time would be [facility] and second choice would be [facility]. Support given. Will continue to follow. Nora JERONIMO, BENCH MECHANIC
[2017-12-23 12:11] LABS: Bedside Glucose 281 mg/dL (70-110)
[2017-12-23] MEDS: 0.9% NaCl PICC Flush IV ×2 (12:17→20:17)
[2017-12-23] MEDS: traMADol 50 MG Tablet GT (12:21)
--- NOTE | 2017-12-23 12:39 | CASEMGMT ---
Insurance Continued stay approved with next update due on 12/28/17. Auth#[id number] Nora JERONIMO, UTILITY MECHANIC
[2017-12-23 17:11] LABS: Bedside Glucose 102 mg/dL (70-110)
[2017-12-23] MEDS: Amitriptyline 100 MG Tablet GT (20:13)
[2017-12-23] MEDS: Pramipexole Di-HCl 0.25 MG Tablet GT (20:13)
[2017-12-23] MEDS: Pravastatin 80 MG Tablet PO (20:14)
[2017-12-23] MEDS: Tamsulosin HCl 0.4 MG Capsule PO (20:14)
[2017-12-23 21:20] LABS: Bedside Glucose 164 mg/dL (70-110)
[2017-12-24] VITALS (9 sets, daily range): BP systolic 104–125; BP diastolic 63–78; PULSE 80–115; RESP 16–20; TEMP 35.7; O2SAT 94–99
[2017-12-24 00:26] LABS: Bedside Glucose 268 mg/dL (70-110)
[2017-12-24] MEDS: Pivot 1.5 Cal 1,000 ML 108 ML GT ×2 (01:21→20:35)
[2017-12-24] MEDS: Ipratropium/Albuterol Sulfate 3 ML AMPUL.NEB INHALATION ×4 (01:30→19:45)
[2017-12-24] MEDS: Furosemide 40 MG Tablet GT ×2 (05:04→13:47)
[2017-12-24] MEDS: Metoprolol Tartrate 50 MG Tablet 150 MG GT ×3 (05:04→20:36)
[2017-12-24] MEDS: Lisinopril 20 MG Tablet GT (05:04)
[2017-12-24] MEDS: Polyethylene Glycol 3350 17 GM PACKET GT (05:04)
[2017-12-24] MEDS: amLODIPine 10 MG Tablet GT (05:04)
[2017-12-24] MEDS: Insulin Lispro 100 UNIT/ML INSULN.PEN 27 UNIT SC ×3 (06:45→20:53)
[2017-12-24 07:06] LABS: Bedside Glucose 365 mg/dL (70-110)
[2017-12-24] MEDS: Budesonide Respules 0.5 MG/2 ML AMPUL.NEB. INHALATION ×2 (07:21→19:45)
[2017-12-24] MEDS: AMANTADINE HCL 50 MG/5ML 100 MG GT (08:39)
[2017-12-24] MEDS: Magnesium Oxide 400 MG Tablet GT ×3 (08:40→17:26)
[2017-12-24] MEDS: Aspirin 81 MG TAB.CHEW GT (08:40)
--- NOTE | 2017-12-24 11:00 | MDS.RN ---
Pain interview for [facility] 12/26/17 completed.
[2017-12-24 11:25] LABS: Bedside Glucose 321 mg/dL (70-110)
--- NOTE | 2017-12-24 11:46 | CASEMGMT ---
BIMS and PHQ9 interviews completed for MDS assessment. BIMS score 04/22 PHQ9 score 10/02. KANDACE Smith
--- NOTE | 2017-12-24 12:57 | PCM.PN.RX ---
Progress Note - Pharmacy Subjective: TCU Admission Objective: Allergies atorvastatin Allergy (Verified 10/16/17 09:47) Hives cilostazol Allergy (Verified 10/16/17 09:47) Hives colestipol Allergy (Verified 10/16/17 09:47) Hives diltiazem Allergy (Verified 10/16/17 09:47) Hives gemfibrozil Allergy (Verified 10/16/17 09:47) Hives naproxen [From Naprosyn] Allergy (Verified 10/16/17 09:47) Hives niacin Allergy (Verified 10/16/17 09:47) Hives Penicillins Allergy (Verified 10/16/17 09:47) Hives pravastatin Allergy (Verified 10/16/17 09:47) Hives procaine [From Novocain] Allergy (Verified 10/16/17 09:47) Hives rosuvastatin Allergy (Verified 10/16/17 09:47) Hives simvastatin Allergy (Verified 10/16/17 09:47) Hives isosorbide Adverse Reaction (Severe, Verified 10/16/17 09:47) Unknown Current Medications Generic Name Dose Route Start Last Admin Trade Name Freq PRN Reason Stop Dose Admin Acetaminophen 650 mg 12/19/17 16:24 12/20/17 04:44 Tylenol Liquid GT 650 mg Q4H PRN PRN Administration MILD PAIN (1-3/10) Al Hydroxide/Mg Hydroxide 30 ml 12/19/17 15:28 Mylanta Ii GT Q6H PRN PRN Gastric burning Albuterol Sulfate 2.5 mg 12/19/17 15:28 Ventolin Aerosols INHALATION Q2H PRN PRN SHORTNESS OF BREATH Albuterol/Ipratropium 3 ml 12/19/17 15:30 12/24/17 07:21 Duoneb INHALATION 3 ml Q6H.RT BULL Administration Amantadine HCl 100 mg 12/20/17 06:00 12/24/17 08:39 GT 100 mg DAILY BULL Administration Amitriptyline HCl 100 mg 12/19/17 22:00 12/23/17 20:13 Elavil GT 100 mg QHS BULL Administration Amlodipine Besylate 10 mg 12/20/17 06:00 12/24/17 05:04 Norvasc GT 10 mg DAILY BULL Administration Aspirin 81 mg 12/20/17 08:00 12/24/17 08:40 Aspirin, Baby GT 81 mg DAILY@0800 BULL Administration Bisacodyl 10 mg 12/20/17 14:29 12/20/17 19:52 Dulcolax RECTAL 10 mg DAILY PRN Administration Constipation Budesonide 0.5 mg 12/20/17 06:00 12/24/17 07:21 Pulmicort Aerosol INHALATION 0.5 mg BID.RT BULL Administration Furosemide 40 mg 12/20/17 06:00 12/24/17 05:04 Lasix GT 40 mg BIDLX BULL Administration Heparin Sodium (Beef Lung) 500 unit 12/19/17 18:09 Heparin 500 Unit/5 Ml (100/Ml) IV UD PRN HEPARIN FLUSH Lactose 1,000 mls @ 108 mls/hr 12/19/17 20:00 12/24/17 12:24 Pivot 1.5 Luis GT Not Given .Q9H16M BULL Insulin Glargine 40 units 12/22/17 18:00 12/24/17 06:44 Lantus ([facility]) SC 40 units BID BULL Administration Insulin Human Lispro 27 unit 12/22/17 14:00 12/24/17 12:25 Humalog Kwikpen ([facility]) SC 27 units TID BULL Administration Lansoprazole 30 mg 12/20/17 17:00 12/24/17 08:40 Prevacid PO 30 mg BIDCM BULL Administration Lisinopril 20 mg 12/20/17 06:00 12/24/17 05:04 Zestril GT 20 mg DAILY BULL Administration Magnesium Oxide 400 mg 12/19/17 17:45 12/24/17 12:25 Mag-Ox 400 GT 400 mg TIDCM BULL Administration Metoprolol Tartrate 150 mg 12/19/17 22:00 12/24/17 05:04 Lopressor (Beta Devante) GT 150 mg TID BULL Administration Multi-Ingredient Cream 1 applic 12/19/17 18:00 12/24/17 05:05 Eucerin TOPICAL 1 applic BID BULL Administration Protocol Nitroglycerin 0.4 mg 12/19/17 15:30 Nitrostat SUBLINGUAL PRN PRN CARDIAC/CHEST PAIN Polyethylene Glycol 17 gm 12/20/17 06:00 12/24/17 05:04 Miralax GT 17 gm DAILY BULL Administration Potassium Bicarb/Potassium Chloride 50 meq 12/19/17 17:00 12/24/17 08:40 Potassium Chl 25 Meq Eff (For Liquid) GT 50 meq BIDCM BULL Administration Pramipexole Dihydrochloride 0.25 mg 12/19/17 22:00 12/23/17 20:13 Mirapex GT 0.25 mg QHS BULL Administration Pravastatin Sodium 80 mg 12/19/17 22:00 12/23/17 20:14 Pravachol PO 80 mg QHS BULL Administration Sodium Chloride 10 - 20 ml 12/19/17 18:09 12/23/17 20:17 IV 20 ml UD PRN Administration PICC FLUSH Tamsulosin HCl 0.4 mg 12/19/17 22:00 12/23/17 20:14 Flomax PO 0.4 mg QHS BULL Administration Tramadol HCl 50 mg 12/19/17 16:24 12/23/17 12:21 Ultram GT 50 mg TID PRN Administration MODERATE PAIN (4-5/10) Zolpidem Tartrate 5 mg 12/19/17 15:30 12/19/17 22:57 Ambien (Generic) GT 5 mg QHS PRN PRN Administration INSOMNIA Problem List (Last Updated 12/15/17 @ 11:14 by Jocelyn aMchuca, DITCH DIGGER-C) Sepsis (Acute) Healthcare associated bacteremia due to Staphylococcus aureus (Acute) Right hemiplegia (Chronic) Congestive heart failure (Chronic) Alcohol abuse (Chronic) Sleep apnea (Chronic) Diabetes mellitus (Chronic) Vital Signs Temp Pulse Resp BP Pulse Ox 97.0 F L 90 16 125/78 H 95 12/23/17 16:00 12/24/17 07:21 12/24/17 07:21 12/24/17 05:04 12/24/17 07:21 Oxygen Flow Rate (L/min) 1.5 Oxygen Delivery Method Nasal Cannula Weight: 111.13 kg Body Mass Index (BMI) 31.4 Finger Stick Blood Glucose 95 Sodium 143 mmol/L (136-145) 12/20/17 04:45 Potassium 3.6 mmol/L (3.5-5.1) 12/20/17 04:45 Chloride 104 mmol/L (98-107) 12/20/17 04:45 Carbon Dioxide 31.0 mmol/L (21.0-32.0) 12/20/17 04:45 Anion Gap 8 (5-15) 12/20/17 04:45 BUN 27 mg/dL (7-18) H 12/20/17 04:45 Creatinine 0.51 mg/dL (0.70-1.30) L 12/20/17 04:45 Est GFR (MDRD) Af Amer 210 mL/min (>60) 12/20/17 04:45 Est GFR (MDRD) Non-Af 173 mL/min (>60) 12/20/17 04:45 BUN/Creatinine Ratio 53.3 RATIO (10-20) H 12/20/17 04:45 Glucose 331 mg/dL (74-106) H 12/20/17 04:45 Assessment/Plan: 1) Pain APAP for mild pain, tramadol for moderate pain. Continue to monitor daily pain scores, prn medication use. 2) HTN/CAD Amlodipine, lisinopril, metoprolol, prn ntg, pravastatin, ASA. Continue to monitor BP/HR, renal function, electrolytes, lipids, s/s chest pain. 3) DM2 Insulin glargine, lispro 3x daily. Continue to monitor BGT, s/s hyper/hypoglycemia. 4) Pulm Budesonide,Duoneb aerosols scheduled, albuterol aerosols prn. Continue to monitor prn medication use, for shortness of breath. 5) TBI Amantadine. Continue to monitor clinically. 6) Edema Furosemide. Continue to monitor swelling, electrolytes, renal function. 7) BPH Tamsulosin at HS. Continue to monitor s/s BPH. 8) RLS Amitriptyline, pramipexole at HS. Continue to monitor for symptoms. 9) GI Lansoprazole twice daily, Maalox prn. Continue to monitor prn medication use, s/s GI distress. Psychotropic Medications: 10) Insomnia Zolpidem at HS prn. Continue to monitor prn medication use, for insomnia. Unnecessary Medications: None Bowel Regimen: 11) PEG daily, prn bisacodyl. Continue to monitor Date of Note:: 12/24/17 - Provider Comments Provider responsibility: Provider responsible to enter orders to implement recommendations
--- NOTE | 2017-12-24 13:09 | PHA.CONS_ITS ---
Progress Note - Pharmacy Subjective: TCU Admission Objective: Allergies atorvastatin Allergy (Verified 10/16/17 09:47) Hives cilostazol Allergy (Verified 10/16/17 09:47) Hives colestipol Allergy (Verified 10/16/17 09:47) Hives diltiazem Allergy (Verified 10/16/17 09:47) Hives gemfibrozil Allergy (Verified 10/16/17 09:47) Hives naproxen [From Naprosyn] Allergy (Verified 10/16/17 09:47) Hives niacin Allergy (Verified 10/16/17 09:47) Hives Penicillins Allergy (Verified 10/16/17 09:47) Hives pravastatin Allergy (Verified 10/16/17 09:47) Hives procaine [From Novocain] Allergy (Verified 10/16/17 09:47) Hives rosuvastatin Allergy (Verified 10/16/17 09:47) Hives simvastatin Allergy (Verified 10/16/17 09:47) Hives isosorbide Adverse Reaction (Severe, Verified 10/16/17 09:47) Unknown Current Medications Generic Name Dose Route Start Last Admin Trade Name Freq PRN Reason Stop Dose Admin Acetaminophen 650 mg 12/19/17 16:24 12/20/17 04:44 Tylenol Liquid GT 650 mg Q4H PRN PRN Administration MILD PAIN (1-3/10) Al Hydroxide/Mg Hydroxide 30 ml 12/19/17 15:28 Mylanta Ii GT Q6H PRN PRN Gastric burning Albuterol Sulfate 2.5 mg 12/19/17 15:28 Ventolin Aerosols INHALATION Q2H PRN PRN SHORTNESS OF BREATH Albuterol/Ipratropium 3 ml 12/19/17 15:30 12/24/17 07:21 Duoneb INHALATION 3 ml Q6H.RT BULL Administration Amantadine HCl 100 mg 12/20/17 06:00 12/24/17 08:39 GT 100 mg DAILY BULL Administration Amitriptyline HCl 100 mg 12/19/17 22:00 12/23/17 20:13 Elavil GT 100 mg QHS BULL Administration Amlodipine Besylate 10 mg 12/20/17 06:00 12/24/17 05:04 Norvasc GT 10 mg DAILY BULL Administration Aspirin 81 mg 12/20/17 08:00 12/24/17 08:40 Aspirin, Baby GT 81 mg DAILY@0800 BULL Administration Bisacodyl 10 mg 12/20/17 14:29 12/20/17 19:52 Dulcolax RECTAL 10 mg DAILY PRN Administration Constipation Budesonide 0.5 mg 12/20/17 06:00 12/24/17 07:21 Pulmicort Aerosol INHALATION 0.5 mg BID.RT BULL Administration Furosemide 40 mg 12/20/17 06:00 12/24/17 05:04 Lasix GT 40 mg BIDLX BULL Administration Heparin Sodium (Beef Lung) 500 unit 12/19/17 18:09 Heparin 500 Unit/5 Ml (100/Ml) IV UD PRN HEPARIN FLUSH Lactose 1,000 mls @ 108 mls/hr 12/19/17 20:00 12/24/17 12:24 Pivot 1.5 Luis GT Not Given .Q9H16M BULL Insulin Glargine 40 units 12/22/17 18:00 12/24/17 06:44 Lantus ([facility]) SC 40 units BID BLUL Administration Insulin Human Lispro 27 unit 12/22/17 14:00 12/24/17 12:25 Humalog Kwikpen ([facility]) SC 27 units TID BULL Administration Lansoprazole 30 mg 12/20/17 17:00 12/24/17 08:40 Prevacid PO 30 mg BIDCM BULL Administration Lisinopril 20 mg 12/20/17 06:00 12/24/17 05:04 Zestril GT 20 mg DAILY BULL Administration Magnesium Oxide 400 mg 12/19/17 17:45 12/24/17 12:25 Mag-Ox 400 GT 400 mg TIDCM BULL Administration Metoprolol Tartrate 150 mg 12/19/17 22:00 12/24/17 05:04 Lopressor (Beta [facility]) GT 150 mg TID BULL Administration Multi-Ingredient Cream 1 applic 12/19/17 18:00 12/24/17 05:05 Eucerin TOPICAL 1 applic BID BULL Administration Protocol Nitroglycerin 0.4 mg 12/19/17 15:30 Nitrostat SUBLINGUAL PRN PRN CARDIAC/CHEST PAIN Polyethylene Glycol 17 gm 12/20/17 06:00 12/24/17 05:04 Miralax GT 17 gm DAILY BULL Administration Potassium Bicarb/Potassium Chloride 50 meq 12/19/17 17:00 12/24/17 08:40 Potassium Chl 25 Meq Eff (For Liquid) GT 50 meq BIDCM BULL Administration Pramipexole Dihydrochloride 0.25 mg 12/19/17 22:00 12/23/17 20:13 Mirapex GT 0.25 mg QHS BULL Administration Pravastatin Sodium 80 mg 12/19/17 22:00 12/23/17 20:14 Pravachol PO 80 mg QHS BULL Administration Sodium Chloride 10 - 20 ml 12/19/17 18:09 12/23/17 20:17 IV 20 ml UD PRN Administration PICC FLUSH Tamsulosin HCl 0.4 mg 12/19/17 22:00 12/23/17 20:14 Flomax PO 0.4 mg QHS BULL Administration Tramadol HCl 50 mg 12/19/17 16:24 12/23/17 12:21 Ultram GT 50 mg TID PRN Administration MODERATE PAIN (4-5/10) Zolpidem Tartrate 5 mg 12/19/17 15:30 12/19/17 22:57 Ambien (Generic) GT 5 mg QHS PRN PRN Administration INSOMNIA Problem List (Last Updated 12/15/17 @ 11:14 by Jocelyn Machuca, PROP MAKER-C) Sepsis (Acute) Healthcare associated bacteremia due to Staphylococcus aureus (Acute) Right hemiplegia (Chronic) Congestive heart failure (Chronic) Alcohol abuse (Chronic) Sleep apnea (Chronic) Diabetes mellitus (Chronic) Vital Signs Temp Pulse Resp BP Pulse Ox 97.0 F L 90 16 125/78 H 95 12/23/17 16:00 12/24/17 07:21 12/24/17 07:21 12/24/17 05:04 12/24/17 07:21 Oxygen Flow Rate (L/min) 1.5 Oxygen Delivery Method Nasal Cannula Weight: 111.13 kg Body Mass Index (BMI) 31.4 Finger Stick Blood Glucose 95 Sodium 143 mmol/L (136-145) 12/20/17 04:45 Potassium 3.6 mmol/L (3.5-5.1) 12/20/17 04:45 Chloride 104 mmol/L (98-107) 12/20/17 04:45 Carbon Dioxide 31.0 mmol/L (21.0-32.0) 12/20/17 04:45 Anion Gap 8 (5-15) 12/20/17 04:45 BUN 27 mg/dL (7-18) H 12/20/17 04:45 Creatinine 0.51 mg/dL (0.70-1.30) L 12/20/17 04:45 Est GFR (MDRD) Af Amer 210 mL/min (>60) 12/20/17 04:45 Est GFR (MDRD) Non-Af 173 mL/min (>60) 12/20/17 04:45 BUN/Creatinine Ratio 53.3 RATIO (10-20) H 12/20/17 04:45 Glucose 331 mg/dL (74-106) H 12/20/17 04:45 Assessment/Plan: 1) Pain APAP for mild pain, tramadol for moderate pain. Continue to monitor daily pain scores, prn medication use. 2) HTN/CAD Amlodipine, lisinopril, metoprolol, prn ntg, pravastatin, ASA. Continue to monitor BP/HR, renal function, electrolytes, lipids, s/s chest pain. 3) DM2 Insulin glargine, lispro 3x daily. Continue to monitor BGT, s/s hyper/ hypoglycemia. 4) Pulm Budesonide,Duoneb aerosols scheduled, albuterol aerosols prn. Continue to monitor prn medication use, for shortness of breath. 5) TBI Amantadine. Continue to monitor clinically. 6) Edema Furosemide. Continue to monitor swelling, electrolytes, renal function. 7) BPH Tamsulosin at HS. Continue to monitor s/s BPH. 8) RLS Amitriptyline, pramipexole at HS. Continue to monitor for symptoms. 9) GI Lansoprazole twice daily, Maalox prn. Continue to monitor prn medication use , s/s GI distress. Psychotropic Medications: 10) Insomnia Zolpidem at HS prn. Continue to monitor prn medication use, for insomnia. Unnecessary Medications: None Bowel Regimen: 11) PEG daily, prn bisacodyl. Continue to monitor Date of Note:: 12/24/17 - Provider Comments Provider responsibility: Provider responsible to enter orders to implement recommendations
[2017-12-24] MEDS: 0.9% NaCl PICC Flush IV (13:45)
[2017-12-24] MEDS: Mag Hydrox/Al Hydrox/Simeth 30 ML UDC GT (13:56)
[2017-12-24 17:05] LABS: Bedside Glucose 130 mg/dL (70-110)
[2017-12-24] MEDS: Tamsulosin HCl 0.4 MG Capsule PO (20:36)
[2017-12-24] MEDS: Amitriptyline 100 MG Tablet GT (20:36)
[2017-12-24] MEDS: Pramipexole Di-HCl 0.25 MG Tablet GT (20:37)
[2017-12-24] MEDS: Pravastatin 80 MG Tablet PO (20:37)
[2017-12-24 21:05] LABS: Bedside Glucose 152 mg/dL (70-110)
[2017-12-25] VITALS (8 sets, daily range): BP systolic 111–151; BP diastolic 60–79; PULSE 84–107; RESP 16–18; TEMP 36.7; O2SAT 92–99
[2017-12-25] MEDS: traMADol 50 MG Tablet GT (00:15)
[2017-12-25 00:31] LABS: Bedside Glucose 209 mg/dL (70-110)
[2017-12-25] MEDS: Polyethylene Glycol 3350 17 GM PACKET GT (04:55)
[2017-12-25] MEDS: Metoprolol Tartrate 50 MG Tablet 150 MG GT ×3 (04:55→19:49)
[2017-12-25] MEDS: amLODIPine 10 MG Tablet GT (04:55)
[2017-12-25] MEDS: Lisinopril 20 MG Tablet GT (04:56)
[2017-12-25] MEDS: Furosemide 40 MG Tablet GT ×2 (04:56→14:30)
[2017-12-25] MEDS: 0.9% NaCl PICC Flush IV ×3 (05:10→22:27)
[2017-12-25] MEDS: AMANTADINE HCL 50 MG/5ML 100 MG GT (05:18)
[2017-12-25 06:16] LABS: Bedside Glucose 325 mg/dL (70-110)
[2017-12-25] MEDS: Insulin Lispro 100 UNIT/ML INSULN.PEN 27 UNIT SC ×3 (06:19→22:26)
[2017-12-25] MEDS: Ipratropium/Albuterol Sulfate 3 ML AMPUL.NEB INHALATION ×3 (06:45→19:50)
[2017-12-25] MEDS: Budesonide Respules 0.5 MG/2 ML AMPUL.NEB. INHALATION ×2 (06:45→20:00)
[2017-12-25] MEDS: Magnesium Oxide 400 MG Tablet GT ×3 (09:15→17:23)
[2017-12-25] MEDS: Aspirin 81 MG TAB.CHEW GT (09:16)
[2017-12-25 11:10] LABS: Bedside Glucose 189 mg/dL (70-110)
[2017-12-25] MEDS: Acetaminophen 650 MG/20 ML UDC GT (11:31)
--- NOTE | 2017-12-25 13:30 | CPS ---
pt refused vest therapy, pt was sleeping and is very tired this round
[2017-12-25 14:46] LABS: Bedside Glucose 228 mg/dL (70-110)
[2017-12-25 17:01] LABS: Bedside Glucose 148 mg/dL (70-110)
[2017-12-25] MEDS: Pramipexole Di-HCl 0.25 MG Tablet GT (19:49)
[2017-12-25] MEDS: Pravastatin 80 MG Tablet PO (19:49)
[2017-12-25] MEDS: Amitriptyline 100 MG Tablet GT (19:49)
[2017-12-25] MEDS: Tamsulosin HCl 0.4 MG Capsule PO (19:49)
[2017-12-25] MEDS: Pivot 1.5 Cal 1,000 ML 108 ML GT (20:00)
[2017-12-25 21:21] LABS: Bedside Glucose 106 mg/dL (70-110)
[2017-12-26] VITALS (8 sets, daily range): BP systolic 116–122; BP diastolic 63–70; PULSE 80–108; RESP 18–20; TEMP 36.6; O2SAT 97
[2017-12-26 00:11] LABS: Bedside Glucose 229 mg/dL (70-110)
--- NOTE | 2017-12-26 02:03 | NURSING ---
Pt complaint of having the urge to void but unable to. Bladder scan 959. Pt straight cathed for 1100cc. Pt resting in bed with cpap on. Call light in reach.
[2017-12-26] MEDS: Polyethylene Glycol 3350 17 GM PACKET GT (04:44)
[2017-12-26] MEDS: Furosemide 40 MG Tablet GT ×2 (04:44→14:22)
[2017-12-26] MEDS: Metoprolol Tartrate 50 MG Tablet 150 MG GT ×3 (04:44→20:35)
[2017-12-26] MEDS: Lisinopril 20 MG Tablet GT (04:45)
[2017-12-26] MEDS: amLODIPine 10 MG Tablet GT (04:45)
[2017-12-26] MEDS: AMANTADINE HCL 50 MG/5ML 100 MG GT (04:46)
[2017-12-26] MEDS: Pivot 1.5 Cal 1,000 ML 108 ML GT (05:35)
[2017-12-26] MEDS: Insulin Lispro 100 UNIT/ML INSULN.PEN 27 UNIT SC (06:42)
[2017-12-26 07:15] LABS: Bedside Glucose 316 mg/dL (70-110)
[2017-12-26] MEDS: Ipratropium/Albuterol Sulfate 3 ML AMPUL.NEB INHALATION ×4 (07:15→18:57)
[2017-12-26] MEDS: Budesonide Respules 0.5 MG/2 ML AMPUL.NEB. INHALATION ×2 (07:30→18:57)
[2017-12-26] MEDS: Magnesium Oxide 400 MG Tablet GT ×3 (08:15→17:38)
[2017-12-26] MEDS: Aspirin 81 MG TAB.CHEW GT (08:15)
[2017-12-26] MEDS: 0.9% NaCl PICC Flush IV (09:09)
[2017-12-26 11:50] LABS: Bedside Glucose 248 mg/dL (70-110)
[2017-12-26] MEDS: Insulin Lispro 100 UNIT/ML INSULN.PEN 30 UNIT SC ×2 (14:22→22:22)
[2017-12-26 15:01] LABS: Bedside Glucose 203 mg/dL (70-110)
--- NOTE | 2017-12-26 16:15 | NURSING ---
Dr. Luis updated on PVR, N.O. to insert FC, pt and aware
[2017-12-26 17:11] LABS: Bedside Glucose 237 mg/dL (70-110)
[2017-12-26] MEDS: Tamsulosin HCl 0.4 MG Capsule PO (20:35)
[2017-12-26] MEDS: Pravastatin 80 MG Tablet PO (20:36)
[2017-12-26] MEDS: Amitriptyline 100 MG Tablet GT (20:36)
[2017-12-26] MEDS: Pramipexole Di-HCl 0.25 MG Tablet GT (20:37)
[2017-12-26 22:05] LABS: Bedside Glucose 234 mg/dL (70-110)
[2017-12-27] VITALS (8 sets, daily range): BP systolic 109–133; BP diastolic 55–75; PULSE 78–108; RESP 18–20; TEMP 36.4; O2SAT 92–96
[2017-12-27 00:15] LABS: Bedside Glucose 237 mg/dL (70-110)
[2017-12-27] MEDS: Ipratropium/Albuterol Sulfate 3 ML AMPUL.NEB INHALATION ×4 (00:50→19:44)
[2017-12-27] MEDS: Pivot 1.5 Cal 1,000 ML 108 ML GT (04:58)
[2017-12-27] MEDS: Lisinopril 20 MG Tablet GT (05:04)
[2017-12-27] MEDS: Polyethylene Glycol 3350 17 GM PACKET GT (05:04)
[2017-12-27] MEDS: Metoprolol Tartrate 50 MG Tablet 150 MG GT ×3 (05:04→20:34)
[2017-12-27] MEDS: amLODIPine 10 MG Tablet GT (05:04)
[2017-12-27] MEDS: Furosemide 40 MG Tablet GT ×2 (05:05→14:50)
[2017-12-27] MEDS: AMANTADINE HCL 50 MG/5ML 100 MG GT (05:09)
[2017-12-27] MEDS: Acetaminophen 650 MG/20 ML UDC GT ×2 (05:12→21:50)
[2017-12-27] MEDS: 0.9% NaCl PICC Flush IV (05:31)
[2017-12-27] MEDS: Insulin Lispro 100 UNIT/ML INSULN.PEN 30 UNIT SC ×3 (05:42→21:49)
[2017-12-27 06:03] LABS: Absolute Lymphocyte Count 1.86 X10^3/ul (0.83-4.51); Absolute Neutrophil Count 7.9 X10^3/uL (2.0-7.7); Basophil# 0.04 X10^3/uL; Basophil% 0.4 % (0-1); Eosinophil# 0.23 X10^3/uL; Eosinophils% 2.1 % (0-5); Hemoglobin 11.4 g/dl (13.0-16.5); Lymphocyte # 1.86 X10^3/ul (4.0); Mean Corp Hgb Conc 31.7 g/gl (32-36); Mean Corpuscular Hgb 31.6 pg (27.0-32.0); Mean Corpuscular Volume 99.7 fL (80-94); Mean Platelet Vol. 13.4 fl (6.2-12.0); Monocyte# 0.83 X10^3/uL; Monocyte% 7.6 % (0-10); Neutrophil # 7.94 X10^3/uL (2.7-7.7); Neutrophil % 72.6 % (47-70); Platelet Count 203 K/mm3 (150-450); RBC Distribution Width CV 15.2 % (11.6-14.6); Red Blood Count 3.61 M/mm3 (4.6-6.2); White Blood Count 10.9 K/mm3 (4.4-11.0)
[2017-12-27 06:04] LABS: POSITIVE COUNT NO; POSITIVE DIFFERENTIAL NO; POSITIVE MORPHOLOGY NO
[2017-12-27 06:06] LABS: Bedside Glucose 315 mg/dL (70-110)
[2017-12-27 06:19] LABS: Anion Gap 9 (5-15); BUN 38 mg/dL (7-18); BUN/Creat Ratio 57.5 RATIO (10-20); Calcium,Total 9.6 mg/dL (8.5-10.1); Chloride 99 mmol/L (98-107); Creatinine, Serum 0.66 mg/dL (0.70-1.30); EST Glomerular Filtration Rate 128 mL/min (>60); Est Glom Filt Rate - Afr Amer 154 mL/min (>60); Estimated Creatinine Clearance 83.34 ml/min; Glucose 305 mg/dL (74-106); Potassium 4.8 mmol/L (3.5-5.1); Sodium Level 138 mmol/L (136-145)
[2017-12-27] MEDS: Budesonide Respules 0.5 MG/2 ML AMPUL.NEB. INHALATION ×2 (06:54→19:44)
[2017-12-27 07:16] LABS: Bedside Glucose 297 mg/dL (70-110)
[2017-12-27] MEDS: Aspirin 81 MG TAB.CHEW GT (08:18)
[2017-12-27] MEDS: Magnesium Oxide 400 MG Tablet GT ×3 (08:18→17:20)
[2017-12-27 11:05] LABS: Bedside Glucose 188 mg/dL (70-110)
[2017-12-27] MEDS: traMADol 50 MG Tablet GT (11:28)
--- NOTE | 2017-12-27 16:20 | NURSING ---
Dr. Luis reviewed AM labs, NNO
[2017-12-27 17:00] LABS: Bedside Glucose 137 mg/dL (70-110)
[2017-12-27] MEDS: Amitriptyline 100 MG Tablet GT (20:35)
[2017-12-27] MEDS: Tamsulosin HCl 0.4 MG Capsule PO (20:35)
[2017-12-27] MEDS: Pramipexole Di-HCl 0.25 MG Tablet GT (20:36)
[2017-12-27] MEDS: Pravastatin 80 MG Tablet PO (20:36)
[2017-12-27 21:36] LABS: Bedside Glucose 115 mg/dL (70-110)
[2017-12-28] VITALS (12 sets, daily range): BP systolic 103–118; BP diastolic 57–68; PULSE 71–108; RESP 16–28; TEMP 36.3; O2SAT 94–98
[2017-12-28 00:30] LABS: Bedside Glucose 144 mg/dL (70-110)
[2017-12-28] MEDS: Ipratropium/Albuterol Sulfate 3 ML AMPUL.NEB INHALATION ×4 (00:54→18:59)
[2017-12-28] MEDS: amLODIPine 10 MG Tablet GT (03:45)
[2017-12-28] MEDS: Lisinopril 20 MG Tablet GT (03:45)
[2017-12-28] MEDS: Metoprolol Tartrate 50 MG Tablet 150 MG GT ×3 (03:45→20:00)
[2017-12-28] MEDS: Pivot 1.5 Cal 1,000 ML 108 ML GT ×2 (03:45→20:08)
[2017-12-28] MEDS: Furosemide 40 MG Tablet GT ×2 (03:46→12:36)
[2017-12-28] MEDS: AMANTADINE HCL 50 MG/5ML 100 MG GT (03:46)
[2017-12-28 05:41] LABS: Bedside Glucose 306 mg/dL (70-110)
[2017-12-28] MEDS: Insulin Lispro 100 UNIT/ML INSULN.PEN 30 UNIT SC ×2 (06:00→21:34)
[2017-12-28] MEDS: Budesonide Respules 0.5 MG/2 ML AMPUL.NEB. INHALATION ×2 (07:06→18:59)
[2017-12-28] MEDS: Magnesium Oxide 400 MG Tablet GT ×3 (08:26→17:29)
[2017-12-28] MEDS: Aspirin 81 MG TAB.CHEW GT (08:26)
[2017-12-28] MEDS: traMADol 50 MG Tablet GT (09:47)
[2017-12-28 11:40] LABS: Bedside Glucose 135 mg/dL (70-110)
[2017-12-28] MEDS: Acetaminophen 650 MG/20 ML UDC GT (12:36)
--- NOTE | 2017-12-28 12:45 | NURSING ---
O2 WAS REMOVED THIS MORNING. TOLERATING SPO2 ON ROOM AIR. SPO2 CHECKED AT THIS TIME. 96% ON ROOM AIR. WILL LEAVE O2 OFF AT THIS TIME AND MONITOR T/O THE DAY. DENIES SOB.
--- NOTE | 2017-12-28 12:57 | CASEMGMT ---
Insurance Clinical information faxed. Pending continued stay approval at this time. Auth#[id number] Nora JERONIMO, ROLLED HAM LACER
--- NOTE | 2017-12-28 14:32 | CPS ---
Patient sleeping after aerosol, placed on CPAP with 2 lpm bleed in.
--- NOTE | 2017-12-28 15:41 | NURSING ---
wound photo: sacrum
[2017-12-28 17:01] LABS: Bedside Glucose 213 mg/dL (70-110)
--- NOTE | 2017-12-28 17:28 | NURSING ---
R' HAS MAINTAINED ROOM AIR T/O DAY. R' 96% RA AT THIS TIME.
[2017-12-28] MEDS: Pravastatin 80 MG Tablet PO (19:59)
[2017-12-28] MEDS: Pramipexole Di-HCl 0.25 MG Tablet GT (20:00)
[2017-12-28] MEDS: Tamsulosin HCl 0.4 MG Capsule PO (20:00)
[2017-12-28] MEDS: Amitriptyline 100 MG Tablet GT (20:00)
[2017-12-28 21:16] LABS: Bedside Glucose 204 mg/dL (70-110)
[2017-12-29 00:35] LABS: Bedside Glucose 262 mg/dL (70-110)
[2017-12-29 01:23] VITALS: PULSE 82; RESP 18
[2017-12-29] MEDS: Ipratropium/Albuterol Sulfate 3 ML AMPUL.NEB INHALATION ×2 (01:23→07:20)
[2017-12-29] MEDS: 0.9% NaCl PICC Flush IV ×2 (01:47→15:43)
[2017-12-29] MEDS: Pivot 1.5 Cal 1,000 ML 108 ML GT (01:47)
[2017-12-29 04:45] VITALS: BP 151/71; PULSE 102
[2017-12-29] MEDS: amLODIPine 10 MG Tablet GT (04:45)
[2017-12-29] MEDS: Lisinopril 20 MG Tablet GT (04:45)
[2017-12-29] MEDS: Furosemide 40 MG Tablet GT ×2 (04:45→14:37)
[2017-12-29] MEDS: Metoprolol Tartrate 50 MG Tablet 150 MG GT ×3 (04:45→21:15)
[2017-12-29] MEDS: AMANTADINE HCL 50 MG/5ML 100 MG GT (04:51)
[2017-12-29] MEDS: Menthol/Lanolin/Calamine/Znox 113 GM Tube 1 APPLIC TOPICAL (04:59)
[2017-12-29] MEDS: Insulin Lispro 100 UNIT/ML INSULN.PEN 30 UNIT SC ×3 (06:52→21:23)
[2017-12-29 07:05] LABS: Bedside Glucose 342 mg/dL (70-110)
[2017-12-29 07:20] VITALS: PULSE 88; RESP 20; O2SAT 91
[2017-12-29 07:20] LABS: Bedside Glucose 372 mg/dL (70-110)
[2017-12-29] MEDS: Budesonide Respules 0.5 MG/2 ML AMPUL.NEB. INHALATION (07:20)
[2017-12-29] MEDS: Aspirin 81 MG TAB.CHEW GT (09:35)
[2017-12-29] MEDS: Magnesium Oxide 400 MG Tablet GT ×3 (09:35→17:54)
--- NOTE | 2017-12-29 09:44 | CASEMGMT ---
Insurance Continued stay approved with next update due on 01/04/18. Auth#[id number] Nora JERONIMO, CAMPUS RECRUITING COORDINATOR
[2017-12-29 11:35] LABS: Bedside Glucose 295 mg/dL (70-110)
[2017-12-29 14:36] VITALS: BP 109/70; PULSE 105
[2017-12-29 15:31] VITALS: BP 139/69; PULSE 87; RESP 18; TEMP 36.1; O2SAT 99
[2017-12-29 16:56] LABS: Bedside Glucose 141 mg/dL (70-110)
[2017-12-29 21:15] VITALS: BP 107/57; PULSE 93
[2017-12-29] MEDS: Pravastatin 80 MG Tablet PO (21:16)
[2017-12-29] MEDS: Pramipexole Di-HCl 0.25 MG Tablet GT (21:16)
[2017-12-29] MEDS: Tamsulosin HCl 0.4 MG Capsule PO (21:16)
[2017-12-29] MEDS: Amitriptyline 100 MG Tablet GT (21:17)
[2017-12-29 21:46] LABS: Bedside Glucose 107 mg/dL (70-110)
[2017-12-29 23:56] LABS: Bedside Glucose 85 mg/dL (70-110)
[2017-12-30] VITALS (9 sets, daily range): BP systolic 99–121; BP diastolic 46–84; PULSE 68–107; RESP 18–22; TEMP 36.1; O2SAT 91–98
[2017-12-30] MEDS: Ipratropium/Albuterol Sulfate 3 ML AMPUL.NEB INHALATION ×4 (00:17→19:40)
[2017-12-30] MEDS: Pivot 1.5 Cal 1,000 ML 108 ML GT ×3 (02:11→23:46)
[2017-12-30] MEDS: Menthol/Lanolin/Calamine/Znox 113 GM Tube 1 APPLIC TOPICAL (04:34)
--- NOTE | 2017-12-30 06:25 | NURSING ---
Patient's BP 100/[address] Luis notified orders given to d/c norvasc and give lisinopril, lopressor, and lasix.
[2017-12-30] MEDS: Metoprolol Tartrate 50 MG Tablet 150 MG GT ×3 (06:35→20:28)
[2017-12-30] MEDS: AMANTADINE HCL 50 MG/5ML 100 MG GT (06:35)
[2017-12-30] MEDS: Lisinopril 20 MG Tablet GT (06:36)
[2017-12-30] MEDS: Furosemide 40 MG Tablet GT ×2 (06:36→15:02)
--- NOTE | 2017-12-30 06:48 | NURSING ---
Dr. Luis notfied of patient tube feed residual of 60cc. Orders given to continue tube feed.
[2017-12-30] MEDS: Budesonide Respules 0.5 MG/2 ML AMPUL.NEB. INHALATION ×2 (07:07→19:40)
[2017-12-30 07:11] LABS: Bedside Glucose 334 mg/dL (70-110)
[2017-12-30] MEDS: Insulin Lispro 100 UNIT/ML INSULN.PEN 30 UNIT SC ×2 (07:11→14:59)
[2017-12-30] MEDS: Magnesium Oxide 400 MG Tablet GT ×3 (09:57→17:57)
[2017-12-30] MEDS: Aspirin 81 MG TAB.CHEW GT (09:57)
[2017-12-30] MEDS: traMADol 50 MG Tablet GT ×2 (10:01→17:59)
[2017-12-30 11:41] LABS: Bedside Glucose 238 mg/dL (70-110)
[2017-12-30] MEDS: Metoclopramide 10 MG/10 ML UDC GT ×3 (12:18→20:27)
[2017-12-30] MEDS: Acetaminophen 650 MG/20 ML UDC GT (14:59)
[2017-12-30] MEDS: 0.9% NaCl PICC Flush IV ×2 (15:02→20:39)
[2017-12-30 15:16] LABS: Bedside Glucose 141 mg/dL (70-110)
[2017-12-30 17:06] LABS: Bedside Glucose 91 mg/dL (70-110)
[2017-12-30] MEDS: Amitriptyline 100 MG Tablet GT (20:27)
[2017-12-30] MEDS: Pramipexole Di-HCl 0.25 MG Tablet GT (20:27)
[2017-12-30] MEDS: Tamsulosin HCl 0.4 MG Capsule PO (20:27)
[2017-12-30] MEDS: Pravastatin 80 MG Tablet PO (20:27)
[2017-12-30 20:50] LABS: Bedside Glucose 67 mg/dL (70-110)
[2017-12-30 21:36] LABS: Bedside Glucose 85 mg/dL (70-110)
[2017-12-31] VITALS (8 sets, daily range): BP systolic 102–141; BP diastolic 46–82; PULSE 77–93; RESP 16–20; TEMP 36; O2SAT 94–98
[2017-12-31 00:26] LABS: Bedside Glucose 199 mg/dL (70-110)
[2017-12-31] MEDS: Ipratropium/Albuterol Sulfate 3 ML AMPUL.NEB INHALATION ×3 (00:38→20:20)
[2017-12-31] MEDS: Lisinopril 20 MG Tablet GT (04:45)
[2017-12-31] MEDS: AMANTADINE HCL 50 MG/5ML 100 MG GT (04:45)
[2017-12-31] MEDS: Metoprolol Tartrate 50 MG Tablet 150 MG GT ×3 (04:46→19:58)
[2017-12-31] MEDS: Furosemide 40 MG Tablet GT ×2 (04:46→12:27)
[2017-12-31] MEDS: Menthol/Lanolin/Calamine/Znox 113 GM Tube 1 APPLIC TOPICAL (04:47)
[2017-12-31] MEDS: Insulin Lispro 100 UNIT/ML INSULN.PEN 13 UNIT SC ×3 (06:24→18:04)
[2017-12-31 06:35] LABS: Bedside Glucose 383 mg/dL (70-110)
[2017-12-31] MEDS: Budesonide Respules 0.5 MG/2 ML AMPUL.NEB. INHALATION ×2 (06:40→20:20)
--- NOTE | 2017-12-31 08:30 | NURSING ---
pt wound drsg changed to bilat buttocks, wound open, red. humphrey davenport noted, minimal amt. aqaucel AG applied after cleansing, pt incont of stool. covered with ABD.
[2017-12-31] MEDS: Aspirin 81 MG TAB.CHEW GT (09:17)
[2017-12-31] MEDS: Magnesium Oxide 400 MG Tablet GT ×3 (09:17→18:02)
[2017-12-31] MEDS: Metoclopramide 10 MG/10 ML UDC GT ×4 (09:17→19:58)
--- NOTE | 2017-12-31 09:34 | NURSING ---
pivot stopped, meds given via PEG tube. Pt tolerated well. at bedside. Dressing changed to bilat buttocks, cleansed then Aquacel AG applied with ABD. Flushed PEG with 160cc h20.
[2017-12-31 11:11] LABS: Bedside Glucose 332 mg/dL (70-110)
[2017-12-31] MEDS: 0.9% NaCl PICC Flush IV (12:19)
--- NOTE | 2017-12-31 14:14 | CASEMGMT ---
Brief interview for mental status (BIMS) and resident mood interview (PHQ-9) completed on this day. BIMS score 10/15. PHQ-9 score 10/02
--- NOTE | 2017-12-31 14:27 | MDS.RN ---
Information for the mds was obtained from review of the clinical record, interview of resident, staff, and direct observation of resident's care.
--- NOTE | 2017-12-31 15:25 | MDS.RN ---
Pain interview for ifrah 01/02/18 completed.
[2017-12-31 17:10] LABS: Bedside Glucose 145 mg/dL (70-110)
[2017-12-31] MEDS: Pravastatin 80 MG Tablet PO (19:58)
[2017-12-31] MEDS: Pramipexole Di-HCl 0.25 MG Tablet GT (19:58)
[2017-12-31] MEDS: Tamsulosin HCl 0.4 MG Capsule PO (19:58)
[2017-12-31] MEDS: Amitriptyline 100 MG Tablet GT (19:58)
[2017-12-31] MEDS: Pivot 1.5 Cal 1,000 ML 108 ML GT (20:14)
[2017-12-31 20:56] LABS: Bedside Glucose 145 mg/dL (70-110)
[2018-01-01] VITALS (7 sets, daily range): BP systolic 116–125; BP diastolic 58–70; PULSE 80–99; RESP 12–20; TEMP 36.1; O2SAT 93–95
[2018-01-01 00:16] LABS: Bedside Glucose 226 mg/dL (70-110)
[2018-01-01] MEDS: Ipratropium/Albuterol Sulfate 3 ML AMPUL.NEB INHALATION ×3 (01:12→19:30)
[2018-01-01] MEDS: Lisinopril 20 MG Tablet GT (04:27)
[2018-01-01] MEDS: Metoprolol Tartrate 50 MG Tablet 150 MG GT ×3 (04:27→21:54)
[2018-01-01] MEDS: Furosemide 40 MG Tablet GT ×2 (04:27→14:37)
[2018-01-01] MEDS: Menthol/Lanolin/Calamine/Znox 113 GM Tube 1 APPLIC TOPICAL (04:28)
[2018-01-01] MEDS: 0.9% NaCl PICC Flush IV ×2 (04:43→12:18)
[2018-01-01] MEDS: Pivot 1.5 Cal 1,000 ML 108 ML GT ×2 (05:48→12:04)
[2018-01-01] MEDS: AMANTADINE HCL 50 MG/5ML 100 MG GT (05:49)
[2018-01-01] MEDS: Metoclopramide 10 MG/10 ML UDC GT ×2 (05:49→12:03)
[2018-01-01] MEDS: Insulin Lispro 100 UNIT/ML INSULN.PEN 13 UNIT SC ×3 (05:58→17:23)
[2018-01-01 06:16] LABS: Bedside Glucose 359 mg/dL (70-110)
[2018-01-01] MEDS: Budesonide Respules 0.5 MG/2 ML AMPUL.NEB. INHALATION ×2 (06:55→19:30)
[2018-01-01] MEDS: Magnesium Oxide 400 MG Tablet GT ×3 (07:40→16:48)
[2018-01-01] MEDS: Aspirin 81 MG TAB.CHEW GT (07:40)
[2018-01-01 11:56] LABS: Bedside Glucose 238 mg/dL (70-110)
[2018-01-01] MEDS: traMADol 50 MG Tablet GT ×2 (12:04→21:53)
[2018-01-01 17:15] LABS: Bedside Glucose 159 mg/dL (70-110)
[2018-01-01 21:06] LABS: Bedside Glucose 118 mg/dL (70-110)
[2018-01-01] MEDS: Pramipexole Di-HCl 0.25 MG Tablet GT (21:55)
[2018-01-01] MEDS: Pravastatin 80 MG Tablet PO (21:55)
[2018-01-01] MEDS: Tamsulosin HCl 0.4 MG Capsule PO (21:56)
[2018-01-01] MEDS: Amitriptyline 100 MG Tablet GT (21:57)
[2018-01-01] MEDS: BACITRACIN 15 GM Tube 1 APPLIC TOPICAL (22:07)
[2018-01-02] VITALS (8 sets, daily range): BP systolic 99–135; BP diastolic 60–73; PULSE 76–109; RESP 16–18; TEMP 36.7; O2SAT 94–97
[2018-01-02 00:30] LABS: Bedside Glucose 217 mg/dL (70-110)
[2018-01-02] MEDS: Furosemide 40 MG Tablet GT ×2 (04:56→12:29)
[2018-01-02] MEDS: Metoprolol Tartrate 50 MG Tablet 150 MG GT ×3 (04:56→20:18)
[2018-01-02] MEDS: Lisinopril 20 MG Tablet GT (04:57)
[2018-01-02] MEDS: Menthol/Lanolin/Calamine/Znox 113 GM Tube 1 APPLIC TOPICAL (04:57)
[2018-01-02] MEDS: 0.9% NaCl PICC Flush IV (05:05)
[2018-01-02] MEDS: BACITRACIN 15 GM Tube 1 APPLIC TOPICAL ×2 (05:11→20:18)
[2018-01-02] MEDS: AMANTADINE HCL 50 MG/5ML 100 MG GT (05:36)
[2018-01-02] MEDS: Pivot 1.5 Cal 1,000 ML 108 ML GT ×2 (05:39→20:18)
[2018-01-02] MEDS: Budesonide Respules 0.5 MG/2 ML AMPUL.NEB. INHALATION ×2 (06:58→19:20)
[2018-01-02] MEDS: Ipratropium/Albuterol Sulfate 3 ML AMPUL.NEB INHALATION ×3 (06:58→19:25)
[2018-01-02 07:11] LABS: Bedside Glucose 385 mg/dL (70-110)
[2018-01-02] MEDS: Insulin Lispro 100 UNIT/ML INSULN.PEN 13 UNIT SC ×3 (09:18→17:41)
[2018-01-02] MEDS: Aspirin 81 MG TAB.CHEW GT (09:19)
[2018-01-02] MEDS: Magnesium Oxide 400 MG Tablet GT ×3 (09:19→17:43)
[2018-01-02 11:51] LABS: Bedside Glucose 314 mg/dL (70-110)
--- NOTE | 2018-01-02 13:44 | NURSING ---
Patient's blood sugars elevated, NO to increase HS dose of lantus to 22 units.
[2018-01-02] MEDS: traMADol 50 MG Tablet GT (15:43)
[2018-01-02 17:06] LABS: Bedside Glucose 225 mg/dL (70-110)
[2018-01-02] MEDS: Acetaminophen 650 MG/20 ML UDC GT (17:43)
[2018-01-02] MEDS: Pravastatin 80 MG Tablet PO (20:17)
[2018-01-02] MEDS: Amitriptyline 100 MG Tablet GT (20:17)
[2018-01-02] MEDS: Pramipexole Di-HCl 0.25 MG Tablet GT (20:17)
[2018-01-02] MEDS: Tamsulosin HCl 0.4 MG Capsule PO (20:18)
[2018-01-02 21:11] LABS: Bedside Glucose 177 mg/dL (70-110)
[2018-01-03] VITALS (7 sets, daily range): BP systolic 114–130; BP diastolic 62–71; PULSE 84–104; RESP 15–18; TEMP 35.7; O2SAT 93–99
[2018-01-03 00:20] LABS: Bedside Glucose 212 mg/dL (70-110)
[2018-01-03] MEDS: Pivot 1.5 Cal 1,000 ML 108 ML GT ×3 (02:53→20:02)
[2018-01-03] MEDS: Menthol/Lanolin/Calamine/Znox 113 GM Tube 1 APPLIC TOPICAL (05:19)
[2018-01-03] MEDS: BACITRACIN 15 GM Tube 1 APPLIC TOPICAL ×2 (05:19→20:02)
[2018-01-03] MEDS: Lisinopril 20 MG Tablet GT (05:22)
[2018-01-03] MEDS: Furosemide 40 MG Tablet GT ×2 (05:22→14:24)
[2018-01-03] MEDS: Metoprolol Tartrate 50 MG Tablet 150 MG GT ×3 (05:22→20:02)
[2018-01-03] MEDS: AMANTADINE HCL 50 MG/5ML 100 MG GT (05:23)
[2018-01-03 06:05] LABS: Absolute Lymphocyte Count 1.77 X10^3/ul (0.83-4.51); Basophil# 0.04 X10^3/uL; Basophil% 0.4 % (0-1); Eosinophil# 0.21 X10^3/uL; Eosinophils% 1.9 % (0-5); Hematocrit 34.3 % (40-54); Hemoglobin 11.1 g/dl (13.0-16.5); Lymphocyte # 1.77 X10^3/ul (4.0); Lymphocyte % 16.1 % (19-41); Mean Corp Hgb Conc 32.4 g/gl (32-36); Mean Corpuscular Hgb 31.1 pg (27.0-32.0); Mean Corpuscular Volume 96.1 fL (80-94); Mean Platelet Vol. 12.4 fl (6.2-12.0); Monocyte# 0.89 X10^3/uL; Monocyte% 8.1 % (0-10); Neutrophil # 8.04 X10^3/uL (2.7-7.7); Neutrophil % 73.1 % (47-70); Platelet Count 196 K/mm3 (150-450); RBC Distribution Width CV 14.6 % (11.6-14.6); RBC Distribution Width SD 48.9 fl (35.1-43.9); Red Blood Count 3.57 M/mm3 (4.6-6.2)
[2018-01-03 06:12] LABS: POSITIVE COUNT NO; POSITIVE DIFFERENTIAL NO; POSITIVE MORPHOLOGY NO
[2018-01-03 06:21] LABS: Anion Gap 10 (5-15); BUN 36 mg/dL (7-18); BUN/Creat Ratio 56.2 RATIO (10-20); Calcium,Total 9.5 mg/dL (8.5-10.1); Chloride 94 mmol/L (98-107); Creatinine, Serum 0.64 mg/dL (0.70-1.30); EST Glomerular Filtration Rate 132 mL/min (>60); Est Glom Filt Rate - Afr Amer 160 mL/min (>60); Estimated Creatinine Clearance 83.34 ml/min; Glucose 330 mg/dL (74-106); Potassium 4.7 mmol/L (3.5-5.1); Sodium Level 132 mmol/L (136-145)
[2018-01-03 06:50] LABS: Bedside Glucose 347 mg/dL (70-110)
[2018-01-03] MEDS: Ipratropium/Albuterol Sulfate 3 ML AMPUL.NEB INHALATION ×3 (08:05→19:20)
[2018-01-03] MEDS: Budesonide Respules 0.5 MG/2 ML AMPUL.NEB. INHALATION ×2 (08:05→19:20)
[2018-01-03] MEDS: Aspirin 81 MG TAB.CHEW GT (09:15)
[2018-01-03] MEDS: traMADol 50 MG Tablet GT ×2 (09:15→17:53)
[2018-01-03] MEDS: Magnesium Oxide 400 MG Tablet GT ×3 (09:15→17:45)
[2018-01-03] MEDS: Insulin Lispro 100 UNIT/ML INSULN.PEN 13 UNIT SC ×3 (09:16→17:44)
[2018-01-03 11:56] LABS: Bedside Glucose 272 mg/dL (70-110)
[2018-01-03] MEDS: Acetaminophen 650 MG/20 ML UDC GT (14:24)
[2018-01-03 17:05] LABS: Bedside Glucose 147 mg/dL (70-110)
--- NOTE | 2018-01-03 18:03 | NURSING ---
Dressing changed to patient's coccyx, patient tolerated well. Turned onto right side.
--- NOTE | 2018-01-03 19:54 | NURSING ---
Per Biju RECREATIONAL SPORTS DIRECTOR, pts lantus dose increased to 22u with breakfast d/t increased blood sugar readings. Pt updated.
[2018-01-03] MEDS: Amitriptyline 100 MG Tablet GT (20:01)
[2018-01-03] MEDS: Tamsulosin HCl 0.4 MG Capsule PO (20:01)
[2018-01-03] MEDS: Pramipexole Di-HCl 0.25 MG Tablet GT (20:01)
[2018-01-03] MEDS: Pravastatin 80 MG Tablet PO (20:01)
[2018-01-03 21:11] LABS: Bedside Glucose 101 mg/dL (70-110)
[2018-01-03] MEDS: 0.9% NaCl PICC Flush IV (22:43)
[2018-01-04] VITALS (7 sets, daily range): BP systolic 101–113; BP diastolic 48–62; PULSE 76–102; RESP 16–20; TEMP 36.4; O2SAT 98
[2018-01-04 00:45] LABS: Bedside Glucose 242 mg/dL (70-110)
[2018-01-04] MEDS: Pivot 1.5 Cal 1,000 ML 108 ML GT ×2 (00:58→23:28)
[2018-01-04] MEDS: Metoprolol Tartrate 50 MG Tablet 150 MG GT ×3 (05:43→19:48)
[2018-01-04] MEDS: Furosemide 40 MG Tablet GT ×2 (05:43→13:35)
[2018-01-04] MEDS: AMANTADINE HCL 50 MG/5ML 100 MG GT (05:43)
[2018-01-04] MEDS: Lisinopril 20 MG Tablet GT (05:43)
[2018-01-04] MEDS: Menthol/Lanolin/Calamine/Znox 113 GM Tube 1 APPLIC TOPICAL (05:43)
[2018-01-04] MEDS: BACITRACIN 15 GM Tube 1 APPLIC TOPICAL ×2 (05:44→19:59)
[2018-01-04 07:06] LABS: Bedside Glucose 337 mg/dL (70-110)
[2018-01-04] MEDS: Budesonide Respules 0.5 MG/2 ML AMPUL.NEB. INHALATION ×2 (07:36→19:00)
[2018-01-04] MEDS: Ipratropium/Albuterol Sulfate 3 ML AMPUL.NEB INHALATION ×2 (07:36→19:00)
[2018-01-04] MEDS: Aspirin 81 MG TAB.CHEW GT (08:06)
[2018-01-04] MEDS: Magnesium Oxide 400 MG Tablet GT ×3 (08:06→17:37)
[2018-01-04] MEDS: Insulin Lispro 100 UNIT/ML INSULN.PEN 13 UNIT SC ×3 (08:14→17:37)
--- NOTE | 2018-01-04 11:25 | CASEMGMT ---
Insurance Clinical information faxed. Pending continued stay approval at this time. Auth#[id number] Nora JERONIMO, LANDSCAPE ARCHITECTURE PROFESSOR
[2018-01-04 11:31] LABS: Bedside Glucose 234 mg/dL (70-110)
--- NOTE | 2018-01-04 11:37 | NURSING ---
wound photo: sacrum
--- NOTE | 2018-01-04 12:44 | NURSING ---
L UA PICC dressing changed. Pt tolerated well.
[2018-01-04 17:05] LABS: Bedside Glucose 159 mg/dL (70-110)
[2018-01-04] MEDS: Amitriptyline 100 MG Tablet GT (19:47)
[2018-01-04] MEDS: Tamsulosin HCl 0.4 MG Capsule PO (19:47)
[2018-01-04] MEDS: Pravastatin 80 MG Tablet PO (19:48)
[2018-01-04] MEDS: Pramipexole Di-HCl 0.25 MG Tablet GT (19:48)
[2018-01-04] MEDS: Acetaminophen 650 MG/20 ML UDC GT (19:49)
[2018-01-04 21:10] LABS: Bedside Glucose 166 mg/dL (70-110)
[2018-01-05] VITALS (8 sets, daily range): BP systolic 101–123; BP diastolic 54–72; PULSE 88–106; RESP 16–20; TEMP 36.9; O2SAT 90–98
[2018-01-05 00:10] LABS: Bedside Glucose 274 mg/dL (70-110)
[2018-01-05] MEDS: Ipratropium/Albuterol Sulfate 3 ML AMPUL.NEB INHALATION ×4 (00:45→19:15)
[2018-01-05] MEDS: BACITRACIN 15 GM Tube 1 APPLIC TOPICAL ×2 (04:39→20:19)
[2018-01-05] MEDS: Menthol/Lanolin/Calamine/Znox 113 GM Tube 1 APPLIC TOPICAL (04:39)
[2018-01-05] MEDS: Metoprolol Tartrate 50 MG Tablet 150 MG GT ×3 (04:42→20:06)
[2018-01-05] MEDS: AMANTADINE HCL 50 MG/5ML 100 MG GT (04:42)
[2018-01-05] MEDS: Lisinopril 20 MG Tablet GT (04:43)
[2018-01-05] MEDS: Furosemide 40 MG Tablet GT ×2 (04:43→13:16)
[2018-01-05 06:55] LABS: Bedside Glucose 348 mg/dL (70-110)
[2018-01-05] MEDS: Budesonide Respules 0.5 MG/2 ML AMPUL.NEB. INHALATION ×2 (07:59→19:15)
[2018-01-05] MEDS: Aspirin 81 MG TAB.CHEW GT (08:56)
[2018-01-05] MEDS: Magnesium Oxide 400 MG Tablet GT ×3 (08:56→16:39)
[2018-01-05] MEDS: Insulin Lispro 100 UNIT/ML INSULN.PEN 13 UNIT SC ×3 (08:57→17:54)
[2018-01-05] MEDS: 0.9% NaCl PICC Flush IV ×3 (09:14→20:21)
--- NOTE | 2018-01-05 09:24 | CASEMGMT ---
Insurance Continued stay approved with next update due on 01/11/18. Auth#[id number] Nora JERONIMO, [employer]
[2018-01-05] MEDS: Acetaminophen 650 MG/20 ML UDC GT ×2 (09:31→20:06)
--- NOTE | 2018-01-05 09:35 | CPS ---
Patient was on O2 through CPAP at night.
[2018-01-05 11:41] LABS: Bedside Glucose 318 mg/dL (70-110)
[2018-01-05] MEDS: traMADol 50 MG Tablet GT (13:16)
--- NOTE | 2018-01-05 15:02 | CASEMGMT ---
Social Work Nursing reporting to this social work therapist that resident was reporting to want to harm self. This social work therapist met with resident in room and completed suicide screening. Resident denies to have any thoughts of hurting self and to have been responding to horrible pain. Resident reporting to have no plans of hurting self. Resident reporting to have too much to live for, family would be so sad in regards to taking own life. Resident reporting to be feeling better now and to not have as much pain. Support given. Will continue to follow as needed. Nora JERONIMO, DEPOSITION OPERATOR
[2018-01-05 17:01] LABS: Bedside Glucose 152 mg/dL (70-110)
[2018-01-05] MEDS: Pivot 1.5 Cal 1,000 ML 108 ML GT (20:05)
[2018-01-05] MEDS: Pramipexole Di-HCl 0.25 MG Tablet GT (20:07)
[2018-01-05] MEDS: Tamsulosin HCl 0.4 MG Capsule PO (20:07)
[2018-01-05] MEDS: Pravastatin 80 MG Tablet PO (20:07)
[2018-01-05] MEDS: Amitriptyline 100 MG Tablet GT (20:07)
--- NOTE | 2018-01-05 20:26 | CPS ---
pt has own cpap with 5 l/m bleed-had radiologic technology program director look at nasal pillows due to large leak-replaced pillows
[2018-01-05 21:36] LABS: Bedside Glucose 138 mg/dL (70-110)
[2018-01-06] VITALS (9 sets, daily range): BP systolic 105–124; BP diastolic 59–68; PULSE 71–117; RESP 16–20; TEMP 36.8; O2SAT 94–100
[2018-01-06 00:06] LABS: Bedside Glucose 223 mg/dL (70-110)
[2018-01-06] MEDS: Metoprolol Tartrate 50 MG Tablet 150 MG GT ×3 (05:01→20:20)
[2018-01-06] MEDS: Lisinopril 20 MG Tablet GT (05:02)
[2018-01-06] MEDS: Furosemide 40 MG Tablet GT ×2 (05:02→14:18)
[2018-01-06] MEDS: AMANTADINE HCL 50 MG/5ML 100 MG GT (05:03)
[2018-01-06] MEDS: Menthol/Lanolin/Calamine/Znox 113 GM Tube 1 APPLIC TOPICAL (05:11)
[2018-01-06] MEDS: BACITRACIN 15 GM Tube 1 APPLIC TOPICAL ×2 (05:11→20:28)
[2018-01-06] MEDS: 0.9% NaCl PICC Flush IV ×3 (06:49→20:24)
[2018-01-06 07:00] LABS: Bedside Glucose 326 mg/dL (70-110)
[2018-01-06] MEDS: Ipratropium/Albuterol Sulfate 3 ML AMPUL.NEB INHALATION ×3 (08:01→19:10)
[2018-01-06] MEDS: Budesonide Respules 0.5 MG/2 ML AMPUL.NEB. INHALATION ×2 (08:02→19:10)
[2018-01-06] MEDS: Magnesium Oxide 400 MG Tablet GT ×3 (09:05→18:04)
[2018-01-06] MEDS: Aspirin 81 MG TAB.CHEW GT (09:05)
[2018-01-06] MEDS: Insulin Lispro 100 UNIT/ML INSULN.PEN 13 UNIT SC ×3 (09:05→18:01)
[2018-01-06 11:26] LABS: Bedside Glucose 255 mg/dL (70-110)
--- NOTE | 2018-01-06 13:30 | SP.MBSS_ITS ---
PRIMARY / SECONDARY DIAGNOSIS: dysphagia (R13.12) REFERRING PHYSICIAN: Dr. Ruddy Luis MD CURRENT DIET: NPO with PEG (Pivot 1.5 at 70cc/hr.) DENTITION: natural; disrepair MENTAL STATUS: impaired RESPIRATORY STATUS: O2 via room air PREVIOUS MODIFIED BARIUM SWALLOW STUDY: none REASON FOR REFERRAL: Patient is a 67 year old male referred for a modified barium swallow (MBS) study to objectively assess the Patients oropharyngeal swallow function under fluoroscopy secondary to a recent traumatic brain injury status post mechanical fall resulting in multiple intracranial hemorrhages (intraparenchymal hemorrhage , subarachnoid hemorrhage, subdural hematoma) in addition to subacute bilateral basal ganglia lacunar infarcts all resulting in right hemiplegia / flaccid paralysis, complicated by recurrent respiratory distress with aspiration pneumonia requiring multiple (x3) and prolonged intubations > 1 week and percutaneous endoscopic gastrostomy (PEG) tube placement. Patient currently admitted to [facility], initially admitted to [facility], family details what could be described as a tortuous course in regards to care and recovery prior to current admission, with the Patient initially intubated for 9 days; extubated and immediately developed aspiration pneumonia (was likely prematurely advanced to PO diet via subjective means) and intubated for another 9 days; extubated and again developed pulmonary complications requiring BiPaP intervention. This is combined with 2 additional intubations within the last year (February and March of 2017; pulmonary edema with acute hypoxemia and hypercarbic respiratory failure). Patients family reports no objective assessment of the oropharyngeal swallow function have been completed. Patient requires objective assessment of the oropharyngeal swallow function to be completed prior to any consideration for PO diet texture advancement due to multiple high risk factors for aspiration / SILENT aspiration (diagnosis of chronic obstructive pulmonary disease, dystussia, significance of intracranial hemorrhage, bilateral subacute basal ganglia infarcts ,iatrogenic factors / multiple and prolonged intubations ) in addition to high risk factors for pulmonary complications associated with aspiration (recent and frequent acute respiratory failure / aspiration pneumonia , non-ambulatory status requiring Kathryn transfer, inability to maintain seated upright posture, cognitive impairments, inability to provide own oral care, oral mucosa disrepair). MEDICAL HISTORY: Chronic obstructive pulmonary disease, acute respiratory failure with hypoxemia , non-ST elevation myocardial infarction, systolic congestive heart failure, coronary artery disease, arteriosclerosis of arterial coronary artery bypass graft status post coronary artery bypass graft x3 with stenting of the coronary artery, demand ischemia, ischemic cardiomyopathy, hypertension with hypertensive emergency, hyperlipidemia, hypertension, encounter for long-term current use of high risk medication, obstructive sleep apnea, type II diabetes mellitus, morbid obesity, nicotine dependence, former smoker (quit February 2017), restless leg syndrome. STUDY FINDINGS: Patient participated in a Modified Barium Swallow (MBS) study on 01/06/2018. Dr. Briggs was the radiologist present for this evaluation. This study was recorded in the lateral view and images were sent to PACs for storage. The following consistencies were presented to this patient for analysis of oropharyngeal swallow function: thin liquids, nectar thickened liquids, honey thickened liquids, pudding, and a regular textured, [place]aya Do[place] cookie. Results of the MBS are as follows: PENETRATION / ASPIRATION SCALE (JUAREZ): 1 = does not enter airway 2 = enters airway/above vocal folds/ejected 3 = enters airway/above vocal folds/not ejected 4 = enters airway/contacts vocal folds/ejected 5 = enters airway/contacts vocal folds/not ejected 6 = enters airway/below vocal folds/ejected 7 = enters airway/below vocal folds/not ejected despite effort 8 = enters airway/below vocal folds/no effort VIDEOFLOROSCOPIC SCALE SCORE (JUAREZ): Grade I = aspiration of material that has penetrated into the laryngeal vestibule, intact cough reflex Grade II = aspiration < 10 % of the bolus, intact cough reflex Grade III = aspiration of < 10 % of the bolus, reduced cough reflex or aspiration of > 10 % of the bolus, intact cough reflex Grade IV = aspiration of > 10 % of the bolus, reduced cough reflex PENETRATION / ASPIRATION SCALE (SCORE) WITH VIDEOFLOROSCOPIC SCALE SCORE: Thin liquid - 5 mL tsp.: 5 Thin liquids via cup (single sip): 2 Thin liquids via straw (single sip): 2 Thin liquids via straw (single sip): 2 Thin liquids via straw (sequential swallows): 8 - Grade III [place] thickened liquids via straw (single sip): 5 [place] thickened liquids via straw (single sip): 1 [place] thickened liquids via straw (single sip): 1 Honey thickened liquids via straw (single sip): 1 Honey thickened liquids via straw (single sip): 1 Honey thickened liquids via straw (sequential swallows): 1 Pudding via spoon: 1 Pudding via spoon: 1 Regular textured cookie: 1 Honey thickened liquids via straw (sequential swallow): 1 IMPRESSION: DIAGNOSIS: moderate oropharyngeal dysphagia (R13.12) ORAL PHASE CHARACTERIZED BY: LABIAL SEAL: no labial escape TONGUE CONTROL DURING BOLUS MANIPULATION: posterior escape of less than half of bolus BOLUS PREPARATION / MASTICATION: timely and efficient chewing and mashing BOLUS TRANSPORT / LINGUAL MOTION: slowed tongue motion ORAL RESIDUE: intermittent residue collection on oral structures PHARYNGEAL PHASE CHARACTERIZED BY: INITIATION OF PHARYNGEAL SWALLOW: bolus head in pyriforms at first hyoid excursion SOFT PALATE ELEVATION: no bolus between soft palate and pharyngeal wall LARYNGEAL ELEVATION: partial superior movement of thyroid cartilage/partial approximation of arytenoids cartilage to epiglottic petiole ANTERIOR HYOID EXCURSION: partial anterior movement EPIGLOTTIC MOVEMENT: complete epiglottic inversion LARYNGEAL VESTIBULE CLOSURE AT HEIGHT OF SWALLOW: incomplete laryngeal vestibule closure with narrow column of air/contrast in laryngeal vestibule PHARYNGEAL STRIPPING WAVE: pharyngeal stripping wave present / complete PHARYNGOESOPHAGEAL SEGMENT OPENING: complete distension and complete duration with no obstruction of flow TONGUE BASE RETRACTION: trace column of contrast between tongue base and posterior pharyngeal wall PHARYNGEAL RESIDUE: collection of residue within or on pharyngeal structures ESOPHAGEAL PHASE CHARACTERIZED BY: ESOPHAGEAL BOLUS CLEARANCE IN THE UPRIGHT POSITION: could not view EFFECTS OF TREATMENT STRATEGIES ATTEMPTED: Cued double swallow = effective Reduced bolus size = moderately effective DIET TEXTURE RECOMMENDATIONS: Will recommend a pureed textured, honey thickened liquid diet (following completion of a meal analysis) with continued use of alternative means of nutrition as needed. COMPENSATORY STRATEGIES RECOMMENDED: 100% supervision with assistance as needed, double swallow, reduced bolus volume, reduced rate of intake, straws with all liquids, seated upright at 90 degrees during PO intake, remain upright for 30-60 minutes post meal (GERD precaution), medications with applesauce. INTERPRETATION OF RESULTS: Patient presents with moderate oropharyngeal dysphagia (R13.12) secondary to recent traumatic brain injury status post mechanical fall resulting in multiple intracranial hemorrhages (intraparenchymal hemorrhage, subarachnoid hemorrhage, subdural hematoma) complicated by subacute bilateral basal ganglia lacunar infarcts and iatrogenic factors (multiple and prolonged intubations > 1 week). Oral phase primarily marked by suboptimal oral clearance secondary to mild reduction in intraoral strength, with mild slowing of movements (little impact noted under fluoroscopy). Pharyngeal phase primarily marked by impaired pharyngeal swallow onset timing resulting in suboptimal bolus location upon swallow onset; and impaired closure of the airway during deglutition attributed to reduced hyolaryngeal excursion resulting in poor laryngeal vestibule closure / pressure with insufficient / inconsistent laryngeal vestibule pressure generated to expel penetrated material; all deficits contributing to prandial penetration and SILENT aspiration of thin liquids. Large irregular collection posteriorly to the faucial pillars during the initial trials particularly with thin liquids; strongly suspect this is associated with dried collections of mucosa that released, as the mass reduced in size as trials progressed, with little appearance towards end of study, with the Patient frequently presenting with large collections of dried mucosa requiring removal via [place] suction throughout admission. All deficits ameliorated with bolus viscosity adjustments. Noted insufficient / inconsistent cough response to expel penetrated material / laryngotracheal aspiration (dystussia). Patient noted to SILENTLY aspirate with thin liquids, with clinical assessment at bedside relying on identification of classic overt signs and symptoms of aspiration unreliable. RECOMMENDATIONS: Would strongly discourage advancement past nectar thickened liquids without completion of a repeat modified barium swallow study due to the extent of aspirate identified that was SILENT in nature. Recommend a repeat modified barium swallow study within 4-6 weeks (if clinically appropriate) to further assess the presence and extent of silent and overt aspiration prior to advancement to thin liquids Patient currently placed on the [place] Free Water Protocol (FFWP), though would recommend removal from the FFWP prior to advancement to a PO diet, as the Patient has demonstrated a tortuous recovery course, with the Patient and family understandably expressing desire to proceed with more cautious approach. Recommend exercising caution with re-initiation of PO diet, with the Patient presenting with high risk factors for pulmonary complications associated with aspiration (recent and frequent acute respiratory failure / aspiration pneumonia, non-ambulatory status requiring Kathryn transfer, inability to maintain seated upright posture, cognitive impairments, inability to provide own oral care, oral mucosa disrepair), with continued access to alternative means of nutrition available. Patient considered at high risk of fatigue with return to PO intake, would consider limitations on meal duration. Patient requires intensive skilled speech-language intervention targeting continued diet texture management; training and implementation of recommended compensatory strategies; training and implementation of recommended oropharyngeal strengthening exercises to facilitate improved oropharyngeal strength and coordination; Patient and caregiver training targeting meal preparation / thickened liquid preparation. ADDITIONAL COMMENTS/RECOMMENDATIONS: Results and recommendations were discussed with the Patient immediately following MBS completion, with the Patient verbalizing understanding and agreement with all recommendations and education provided. IMAGE COUNT: [id number]
--- NOTE | 2018-01-06 13:30 | RAD_ITS ---
STUDY: SWALLOWING STUDY REASON FOR EXAM: Male, 67 years old. History of stroke. TECHNIQUE: The examination was performed with Speech Pathology in attendance. Under fluoroscopic observation, the patient ingested thin barium, thick barium, barium pudding, and barium coated cracker. FLUOROSCOPY TIME: 3:53 minutes/seconds. [id number] fluoroscopic images were obtained. RADIOLOGIST INVOLVEMENT: Radiologist was present and providing direct supervision. COMPARISON: None. FINDINGS: The following was observed during swallowing of the various mixtures of barium: Thin Barium: Penetration and silent aspiration with ingestion of thin liquids. Thick Barium: Penetration with ingestion of nectar thickened liquids. Honey thickened liquids are unremarkable. Barium Pudding: There was no evidence of aspiration or laryngeal penetration. Barium Coated Cracker: There was no evidence of aspiration or laryngeal penetration. RAD/Swallowing Function w/Video IMPRESSION: Penetration and silent aspiration with ingestion of thin liquids. Penetration with nectar thickened liquids. The swallow study findings were discussed with the patient by the speech pathologist at the conclusion of the examination. Please see speech pathology report for more information and recommendations. Electronically Signed: Bakari Briggs MD at 14:02 EDT Tel [phone], Service support ,
[2018-01-06] MEDS: Acetaminophen 650 MG/20 ML UDC GT (14:18)
--- NOTE | 2018-01-06 16:42 | NURSING ---
diamond expert rec: increase TF 120cc/hr x14 hrs/day w/200cc water flushes Q4h, running from 7p to 9am. orders changed.
[2018-01-06 17:06] LABS: Bedside Glucose 203 mg/dL (70-110)
[2018-01-06] MEDS: Pivot 1.5 Cal 1,000 ML 120 ML GT (19:02)
--- NOTE | 2018-01-06 19:02 | NURSING ---
tube feed started per new orders.
[2018-01-06] MEDS: Pramipexole Di-HCl 0.25 MG Tablet GT (20:20)
[2018-01-06] MEDS: Amitriptyline 100 MG Tablet GT (20:20)
[2018-01-06] MEDS: Pravastatin 80 MG Tablet PO (20:20)
[2018-01-06] MEDS: Tamsulosin HCl 0.4 MG Capsule PO (20:20)
[2018-01-06 21:26] LABS: Bedside Glucose 139 mg/dL (70-110)
[2018-01-07] VITALS (9 sets, daily range): BP systolic 104–122; BP diastolic 59–76; PULSE 78–106; RESP 16–18; TEMP 36.1; O2SAT 95–98
[2018-01-07 00:11] LABS: Bedside Glucose 234 mg/dL (70-110)
[2018-01-07] MEDS: Metoprolol Tartrate 50 MG Tablet 150 MG GT ×3 (04:45→20:32)
[2018-01-07] MEDS: AMANTADINE HCL 50 MG/5ML 100 MG GT (04:45)
[2018-01-07] MEDS: Lisinopril 20 MG Tablet GT (04:46)
[2018-01-07] MEDS: BACITRACIN 15 GM Tube 1 APPLIC TOPICAL ×2 (04:46→20:32)
[2018-01-07] MEDS: Furosemide 40 MG Tablet GT ×2 (04:46→12:56)
[2018-01-07] MEDS: Menthol/Lanolin/Calamine/Znox 113 GM Tube 1 APPLIC TOPICAL (04:47)
[2018-01-07] MEDS: Pivot 1.5 Cal 1,000 ML 120 ML GT ×2 (04:57→19:54)
[2018-01-07 07:06] LABS: Bedside Glucose 333 mg/dL (70-110)
[2018-01-07] MEDS: Ipratropium/Albuterol Sulfate 3 ML AMPUL.NEB INHALATION ×3 (07:06→19:50)
[2018-01-07] MEDS: Budesonide Respules 0.5 MG/2 ML AMPUL.NEB. INHALATION ×2 (07:06→19:50)
[2018-01-07] MEDS: Insulin Lispro 100 UNIT/ML INSULN.PEN 13 UNIT SC ×3 (09:07→17:43)
[2018-01-07] MEDS: Magnesium Oxide 400 MG Tablet GT ×3 (09:10→17:45)
[2018-01-07] MEDS: Aspirin 81 MG TAB.CHEW GT (09:10)
[2018-01-07] MEDS: traMADol 50 MG Tablet GT (09:24)
--- NOTE | 2018-01-07 09:35 | NURSING ---
Thorough mouth care provided, patient drank 200mL of water while sitting at a 90 degree angle, taking small sips. Tolerated well. HOB left at 50 degree angle. Will continue to monitor.
--- NOTE | 2018-01-07 11:15 | NURSING ---
NO for weekly CBC and BMP, Biju Cruz DNP updated on wound decline (foul odor, green color) NO for wound culture and to cleanse wound with dynahex and rinse with NS BID and cover with aquacel AG and CDD.
[2018-01-07 12:01] LABS: Bedside Glucose 251 mg/dL (70-110)
--- NOTE | 2018-01-07 12:49 | NURSING ---
Bedside swallow eval complete, per ST, okay for patient to start puree, honey thick liquid diet. D/C bates water protocol.
--- NOTE | 2018-01-07 15:14 | MDS.RN ---
Information for the mds was obtained from review of the clinical record, interview of resident, staff, and direct observation of resident's care.
[2018-01-07 17:01] LABS: Bedside Glucose 166 mg/dL (70-110)
[2018-01-07] MEDS: 0.9% NaCl PICC Flush IV ×2 (17:50→22:00)
[2018-01-07] MEDS: Pramipexole Di-HCl 0.25 MG Tablet GT (20:32)
[2018-01-07] MEDS: Amitriptyline 100 MG Tablet GT (20:32)
[2018-01-07] MEDS: Pravastatin 80 MG Tablet PO (20:32)
[2018-01-07] MEDS: Tamsulosin HCl 0.4 MG Capsule PO (20:32)
[2018-01-07 21:11] LABS: Bedside Glucose 292 mg/dL (70-110)
[2018-01-08] VITALS (8 sets, daily range): BP systolic 100–148; BP diastolic 50–72; PULSE 83–102; RESP 16–18; TEMP 36.3; O2SAT 95–100
[2018-01-08 00:46] LABS: Bedside Glucose 306 mg/dL (70-110)
[2018-01-08] MEDS: Ipratropium/Albuterol Sulfate 3 ML AMPUL.NEB INHALATION ×3 (01:03→17:00)
[2018-01-08] MEDS: Pivot 1.5 Cal 1,000 ML 120 ML GT (02:30)
[2018-01-08] MEDS: Metoprolol Tartrate 50 MG Tablet 150 MG GT ×3 (05:59→21:31)
[2018-01-08] MEDS: Furosemide 40 MG Tablet GT ×2 (05:59→13:26)
[2018-01-08] MEDS: Lisinopril 20 MG Tablet GT (05:59)
[2018-01-08] MEDS: AMANTADINE HCL 50 MG/5ML 100 MG GT (05:59)
[2018-01-08] MEDS: Menthol/Lanolin/Calamine/Znox 113 GM Tube 1 APPLIC TOPICAL (06:00)
[2018-01-08] MEDS: BACITRACIN 15 GM Tube 1 APPLIC TOPICAL ×2 (06:01→21:32)
[2018-01-08 07:10] LABS: Bedside Glucose 290 mg/dL (70-110)
[2018-01-08] MEDS: Magnesium Oxide 400 MG Tablet GT ×3 (08:56→17:37)
[2018-01-08] MEDS: Aspirin 81 MG TAB.CHEW GT (08:56)
[2018-01-08] MEDS: Insulin Lispro 100 UNIT/ML INSULN.PEN 13 UNIT SC (08:56)
[2018-01-08] MEDS: traMADol 50 MG Tablet GT (09:00)
[2018-01-08 11:51] LABS: Bedside Glucose 421 mg/dL (70-110)
[2018-01-08] MEDS: Insulin Lispro 100 UNIT/ML INSULN.PEN 17 UNIT SC ×2 (12:00→17:35)
[2018-01-08] MEDS: Budesonide Respules 0.5 MG/2 ML AMPUL.NEB. INHALATION ×2 (12:23→17:00)
[2018-01-08 16:56] LABS: Bedside Glucose 240 mg/dL (70-110)
[2018-01-08] MEDS: 0.9% NaCl PICC Flush IV ×2 (17:50→22:24)
[2018-01-08] MEDS: Tamsulosin HCl 0.4 MG Capsule PO (21:31)
[2018-01-08] MEDS: Pramipexole Di-HCl 0.25 MG Tablet GT (21:31)
[2018-01-08] MEDS: Pravastatin 80 MG Tablet PO (21:31)
[2018-01-08] MEDS: Amitriptyline 100 MG Tablet GT (21:31)
[2018-01-08 21:51] LABS: Bedside Glucose 237 mg/dL (70-110)
[2018-01-09] VITALS (7 sets, daily range): BP systolic 98–139; BP diastolic 64–80; PULSE 78–112; RESP 18–20; TEMP 36.4; O2SAT 93–95
[2018-01-09 00:10] LABS: Bedside Glucose 188 mg/dL (70-110)
[2018-01-09] MEDS: BACITRACIN 15 GM Tube 1 APPLIC TOPICAL ×2 (05:46→21:00)
[2018-01-09] MEDS: Menthol/Lanolin/Calamine/Znox 113 GM Tube 1 APPLIC TOPICAL (05:46)
[2018-01-09] MEDS: Furosemide 40 MG Tablet GT (05:48)
[2018-01-09] MEDS: Metoprolol Tartrate 50 MG Tablet 150 MG GT (05:48)
[2018-01-09] MEDS: Lisinopril 20 MG Tablet GT (05:48)
[2018-01-09 07:01] LABS: Bedside Glucose 212 mg/dL (70-110)
[2018-01-09] MEDS: Budesonide Respules 0.5 MG/2 ML AMPUL.NEB. INHALATION ×2 (07:18→19:49)
[2018-01-09] MEDS: Ipratropium/Albuterol Sulfate 3 ML AMPUL.NEB INHALATION ×3 (07:18→19:49)
[2018-01-09] MEDS: Aspirin 81 MG TAB.CHEW GT (09:18)
[2018-01-09] MEDS: Magnesium Oxide 400 MG Tablet GT (09:18)
[2018-01-09] MEDS: AMANTADINE HCL 50 MG/5ML 100 MG GT (09:19)
[2018-01-09] MEDS: Insulin Lispro 100 UNIT/ML INSULN.PEN 17 UNIT SC ×2 (09:19→12:03)
[2018-01-09] MEDS: traMADol 50 MG Tablet PO (11:14)
[2018-01-09] MEDS: Magnesium Oxide 400 MG Tablet PO ×2 (11:15→16:59)
[2018-01-09] MEDS: 0.9% NaCl PICC Flush IV (11:17)
[2018-01-09 11:20] LABS: Bedside Glucose 303 mg/dL (70-110)
[2018-01-09] MEDS: Furosemide 40 MG Tablet PO (13:45)
[2018-01-09] MEDS: Acetaminophen 325 MG Tablet 650 MG PO (13:45)
[2018-01-09] MEDS: Metoprolol Tartrate 50 MG Tablet 150 MG PO ×2 (13:45→20:50)
[2018-01-09 17:01] LABS: Bedside Glucose 123 mg/dL (70-110)
--- NOTE | 2018-01-09 17:58 | NURSING ---
DR RHODES UPDATED ON PT BLOOD SUGAR 123, NEW ORDER TO HOLD HYNALOG 17 UNITS
--- NOTE | 2018-01-09 18:31 | NURSING ---
Addendum entered by Barbara Benjamin 01/09/18 21:06: Dr. Luis updated on both lumens being occluded. New order to d/c PICC line. Original Note: tried flushing picc, totally occluded. dr luis notified, new order for cathflo. supervision notified.
[2018-01-09] MEDS: Pramipexole Di-HCl 0.25 MG Tablet PO (20:50)
[2018-01-09] MEDS: Tamsulosin HCl 0.4 MG Capsule PO (20:50)
[2018-01-09] MEDS: Amitriptyline 100 MG Tablet PO (20:51)
[2018-01-09] MEDS: Pravastatin 80 MG Tablet PO (20:51)
[2018-01-09] MEDS: Petrolatum,White 5 GM PACKET 1 APPLIC TOPICAL (21:20)
[2018-01-09 21:26] LABS: Bedside Glucose 215 mg/dL (70-110)
--- NOTE | 2018-01-09 22:54 | NURSING ---
PICC line removed from [facility]. PICC trimmed at 53cm. Pt tolerated well. Occlusive dressing with petroleum jelly applied.
[2018-01-10] VITALS (8 sets, daily range): BP systolic 113–141; BP diastolic 52–73; PULSE 98–113; RESP 18–20; TEMP 37.3; O2SAT 93–98
[2018-01-10 00:16] LABS: Bedside Glucose 174 mg/dL (70-110)
[2018-01-10] MEDS: Lisinopril 20 MG Tablet PO (05:35)
[2018-01-10] MEDS: Furosemide 40 MG Tablet PO ×2 (05:35→12:30)
[2018-01-10] MEDS: Metoprolol Tartrate 50 MG Tablet 150 MG PO ×3 (05:35→20:36)
[2018-01-10] MEDS: Amantadine 100 MG Capsule PO (05:36)
[2018-01-10] MEDS: BACITRACIN 15 GM Tube 1 APPLIC TOPICAL ×2 (05:36→20:37)
[2018-01-10] MEDS: Menthol/Lanolin/Calamine/Znox 113 GM Tube 1 APPLIC TOPICAL (05:47)
[2018-01-10 06:17] LABS: Absolute Lymphocyte Count 1.54 X10^3/ul (0.83-4.51); Absolute Neutrophil Count 8.7 X10^3/uL (2.0-7.7); Basophil# 0.02 X10^3/uL; Basophil% 0.2 % (0-1); Eosinophil# 0.21 X10^3/uL; Eosinophils% 1.8 % (0-5); Hematocrit 33.5 % (40-54); Hemoglobin 10.9 g/dl (13.0-16.5); Lymphocyte # 1.54 X10^3/ul (4.0); Lymphocyte % 13.2 % (19-41); Mean Corp Hgb Conc 32.5 g/gl (32-36); Mean Corpuscular Hgb 31.1 pg (27.0-32.0); Mean Corpuscular Volume 95.7 fL (80-94); Mean Platelet Vol. 11.4 fl (6.2-12.0); Monocyte% 10.3 % (0-10); Neutrophil # 8.68 X10^3/uL (2.7-7.7); Neutrophil % 74.1 % (47-70); Platelet Count 212 K/mm3 (150-450); RBC Distribution Width CV 14.4 % (11.6-14.6); RBC Distribution Width SD 48.5 fl (35.1-43.9); White Blood Count 11.7 K/mm3 (4.4-11.0)
[2018-01-10 06:23] LABS: POSITIVE COUNT NO; POSITIVE DIFFERENTIAL NO; POSITIVE MORPHOLOGY NO
[2018-01-10] MEDS: Ipratropium/Albuterol Sulfate 3 ML AMPUL.NEB INHALATION ×4 (06:30→19:20)
[2018-01-10] MEDS: Budesonide Respules 0.5 MG/2 ML AMPUL.NEB. INHALATION ×2 (06:30→19:20)
[2018-01-10 06:36] LABS: Anion Gap 8 (5-15); BUN 26 mg/dL (7-18); BUN/Creat Ratio 38.5 RATIO (10-20); Calcium,Total 9.8 mg/dL (8.5-10.1); Chloride 98 mmol/L (98-107); Creatinine, Serum 0.68 mg/dL (0.70-1.30); EST Glomerular Filtration Rate 124 mL/min (>60); Est Glom Filt Rate - Afr Amer 150 mL/min (>60); Estimated Creatinine Clearance 83.34 ml/min; Glucose 162 mg/dL (74-106); Potassium 4.9 mmol/L (3.5-5.1); Sodium Level 132 mmol/L (136-145)
[2018-01-10 06:51] LABS: Bedside Glucose 160 mg/dL (70-110)
[2018-01-10] MEDS: Aspirin 81 MG TAB.CHEW PO (09:07)
[2018-01-10] MEDS: Magnesium Oxide 400 MG Tablet PO ×3 (09:07→17:54)
[2018-01-10] MEDS: Insulin Lispro 100 UNIT/ML INSULN.PEN 17 UNIT SC ×3 (09:09→17:56)
[2018-01-10] MEDS: traMADol 50 MG Tablet PO (10:14)
[2018-01-10 11:31] LABS: Bedside Glucose 296 mg/dL (70-110)
--- NOTE | 2018-01-10 12:16 | NURSING ---
Envision wound mattress delivered and set up
[2018-01-10 16:55] LABS: Bedside Glucose 211 mg/dL (70-110)
[2018-01-10] MEDS: Pivot 1.5 Cal 1,000 ML BOTTLE 480 ML GT (18:06)
[2018-01-10] MEDS: Mag Hydrox/Al Hydrox/Simeth 30 ML UDC PO (20:06)
[2018-01-10] MEDS: Amitriptyline 100 MG Tablet PO (20:36)
[2018-01-10] MEDS: Pramipexole Di-HCl 0.25 MG Tablet PO (20:36)
[2018-01-10] MEDS: Pravastatin 80 MG Tablet PO (20:36)
[2018-01-10] MEDS: Tamsulosin HCl 0.4 MG Capsule PO (20:36)
[2018-01-10 20:46] LABS: Bedside Glucose 238 mg/dL (70-110)
[2018-01-11 05:46] VITALS: BP 132/64; PULSE 92
[2018-01-11] MEDS: Furosemide 40 MG Tablet PO ×2 (05:46→15:28)
[2018-01-11] MEDS: Lisinopril 20 MG Tablet PO (05:46)
[2018-01-11] MEDS: Amantadine 100 MG Capsule PO (05:46)
[2018-01-11] MEDS: Metoprolol Tartrate 50 MG Tablet 150 MG PO ×2 (05:46→21:32)
[2018-01-11] MEDS: BACITRACIN 15 GM Tube 1 APPLIC TOPICAL ×2 (05:50→21:39)
[2018-01-11] MEDS: Menthol/Lanolin/Calamine/Znox 113 GM Tube 1 APPLIC TOPICAL (05:51)
[2018-01-11 06:45] LABS: Bedside Glucose 218 mg/dL (70-110)
[2018-01-11] MEDS: Insulin Lispro 100 UNIT/ML INSULN.PEN 17 UNIT SC ×3 (09:46→18:10)
[2018-01-11] MEDS: Magnesium Oxide 400 MG Tablet PO ×3 (09:49→18:12)
[2018-01-11] MEDS: Aspirin 81 MG TAB.CHEW PO (09:49)
[2018-01-11] MEDS: traMADol 50 MG Tablet PO (09:57)
--- NOTE | 2018-01-11 10:01 | NURSING ---
Dr. Wilkerson in to see patient, states he will order ATB's for patient for positive wound culture.
--- NOTE | 2018-01-11 10:34 | PCM.HP.ID ---
Problem List (1) Infected decubitus ulcer Status: Acute Reason for Consult: mssa infection Consulted by: Dr. Luis History of Present Illness: The patient is a 67 year old M with admission to [facility] in December with resp failure, treated for mssa and aspiration pneumonia. Transferred to TCU 12/19 to complete course of levaquin. Breathing better, but has developed painful sacral decub ulcer with purulent drainage, surrounding redness. Area worsening per nursing. No fever. Pain is moderate, stabbing/dull. Wound cx sent, now with enterococcus, mssa, and strep. Full ROS Performed and neg except as noted above. - Medical History Past Medical History (Chronic Problems): Chronic Problems (Last Reviewed 12/31/17 @ 08:29 by Salome Angulo NP-C) Right hemiplegia (Chronic) Congestive heart failure (Chronic) Alcohol abuse (Chronic) Sleep apnea (Chronic) Diabetes mellitus (Chronic) Fall (Chronic) Traumatic brain injury (Chronic) Intraparenchymal hemorrhage of brain (Chronic) Subarachnoid hemorrhage (Chronic) Subdural hematoma (Chronic) Intraventricular hemorrhage (Chronic) Right scapula fracture (Chronic) Tobacco abuse (Chronic) Dysphagia (Chronic) Insomnia (Chronic) Vitamin D deficiency (Chronic) Depression (Chronic) GERD (gastroesophageal reflux disease) (Chronic) BPH (benign prostatic hyperplasia) (Chronic) Encounter for long-term current use of high risk medication (Chronic) Obstructive sleep apnea (Chronic) 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) S/P CABG x3 with right radial to LAD, SVG to RCA, and SVG to OM 2; stenting to LAD in February 2017; Presence of coronary angioplasty implant and graft (Chronic) Presence of aortocoronary bypass graft (Chronic) CABG X 3 2001 ?, Radial artery -LAD, SVG-RCA, SVG-OM2 Non-ST elevation myocardial infarction (NSTEMI), initial care episode (Chronic) 02/16/17 Ischemic cardiomyopathy (Chronic) Restless leg syndrome (Chronic) Hyperlipidemia (Chronic) Hypertensive emergency (Chronic) COPD (chronic obstructive pulmonary disease) (Chronic) Hypertension (Chronic) Morbid obesity (Chronic) CAD (coronary artery disease) (Chronic) Stented coronary artery (Chronic) [facility] w/TSH-MDJ-Autv LAD (grafts occluded X 3) 02/20/17 Former smoker (Chronic) quit February 2017 Diabetes mellitus type 2 in obese (Chronic) Hx of CABG (Chronic) CABG X3 rADIAL ARTERY-lad, svg-rca, svg-om2. MULTIPLE CORONARY STENTS Allergies/Adverse Reactions: Allergies atorvastatin Allergy (Verified 12/29/17 08:28) Hives cilostazol Allergy (Verified 12/29/17 08:28) Hives colestipol Allergy (Verified 12/29/17 08:28) Hives diltiazem Allergy (Verified 12/29/17 08:28) Hives gemfibrozil Allergy (Verified 12/29/17 08:28) Hives naproxen [From Naprosyn] Allergy (Verified 12/29/17 08:28) Hives niacin Allergy (Verified 12/29/17 08:28) Hives Penicillins Allergy (Verified 12/29/17 08:28) Hives pravastatin Allergy (Verified 12/29/17 08:28) Hives procaine [From Novocain] Allergy (Verified 12/29/17 08:28) Hives rosuvastatin Allergy (Verified 12/29/17 08:28) Hives simvastatin Allergy (Verified 12/29/17 08:28) Hives isosorbide Adverse Reaction (Severe, Verified 12/29/17 08:28) Unknown Home Medications: Ambulatory Orders Medication Instructions Recorded Amitriptyline HCl 100 mg GT QHS 02/16/17 Cholecalciferol (Vitamin D3) 5,000 unit GT DAILY 02/16/17 [Vitamin D3] Duloxetine HCl 60 mg GT DAILY 02/16/17 Lactase 1 tab GT TIDCM 02/16/17 Lansoprazole [Prevacid] 30 mg GT BIDCM 02/16/17 Nitroglycerin 0.4 mg SL PRN PRN 02/16/17 Ropinirole HCl [Requip] 0.5 mg GT QHS 02/16/17 Tamsulosin HCl [Flomax] 0.4 mg GT QHS 02/16/17 traMADol [Ultram] 50 mg GT TID PRN 02/16/17 lisinopril 20 mg tablet 20 mg GT QDAY 05/20/17 Albuterol Inhaler [Ventolin Hfa] 1 - 2 puff INHALATION 4X/DAY PRN 12/04/17 PRN Amantadine Liquid 100 mg GT DAILY 12/04/17 Aspirin [Aspirin, Baby] 81 mg GT DAILY@0800 12/04/17 Budesonide Aerosol [Pulmicort 0.5 mg INHALATION BID 12/04/17 Respules] Magnesium Oxide [Mag-Ox 400] 400 mg GT TIDCM 12/04/17 Pravastatin [Pravachol] 80 mg PO QHS 12/04/17 ranitidine 150 mg capsule 150 mg GT QHS 12/04/17 Acetaminophen Liquid [Tylenol 650 mg GT Q4H PRN PRN udc 12/19/17 Liquid] Albuterol Aerosols [Ventolin 2.5 mg INHALATION Q2H PRN PRN 12/19/17 Aerosols] vial.neb. Amlodipine [Norvasc] 10 mg GT DAILY 12/19/17 Bisacodyl [Dulcolax] 5 mg PO DAILY PRN PRN tab 12/19/17 Furosemide [Lasix] 40 mg GT BIDLX 12/19/17 Insulin Glargine [Lantus SoloStar 35 units SC DAILY 12/19/17 Pen] Insulin Glargine [Lantus SoloStar 50 units SC QHS 12/19/17 Pen] Insulin Lispro [Humalog KwikPen] 10 unit SC Q6 12/19/17 Ipratropium/Albuterol Sulfate 3 ml INHALATION Q6H.RT 12/19/17 [Duoneb] Levofloxacin [Levaquin] 750 mg PO DAILY 12/19/17 Mag Hydrox/Al Hydrox/Simeth 30 ml GT Q6H PRN PRN udc 12/19/17 [Mylanta II] Magnesium Hydroxide [Milk Of 30 ml GT DAILY PRN udc 12/19/17 Magnesia] Metoprolol Tartrate [Lopressor 150 mg GT TID 12/19/17 (beta stepan)] Mineral Oil/Petrolatum,White 1 applic TOPICAL BID 12/19/17 [Eucerin] Potassium Cloride Effervescent 50 meq GT BIDCM 12/19/17 [Potassium Chl 25 Meq Eff (For Liquid)] Pramipexole Di-HCl [Mirapex] 0.25 mg GT QHS 12/19/17 Zolpidem Tartrate [Ambien] 5 mg GT QHS PRN PRN tab 12/19/17 Vital Signs Temp Pulse Resp BP Pulse Ox 99.1 F 92 20 H 132/64 H 93 01/10/18 15:44 01/11/18 05:46 01/10/18 19:35 01/11/18 05:46 01/10/18 15:44 Oxygen Flow Rate (L/min) 5 Oxygen Delivery Method Room Air Weight: 106.367 kg Body Mass Index (BMI) 31.4 Finger Stick Blood Glucose 95 Microbiology Past 72 Hours 01/07/18 15:20 Gram Stain - Final Wound - Other Wound Culture - Final Staphylococcus aureus Enterococcus faecalis Streptococcus pseudoporcinus - Other Studies Radiology: [] reviewed Other Studies: [] Route of nutrition/ use of supplements: [] Nutritional Intake: [] IV Site: [] Lane Catheter: [] - Physical Exam General: Alert, Oriented x3, Cooperative HEENT: PERRLA, EOMI Neck: Supple Lungs: Clear to auscultation, Normal air movement Cardiovascular: Regular rate, Regular Rhythm, No murmurs Abdomen: Soft, Non Tender, Non-Distended Extremities: No edema Skin: - - reviewed photo of sacral wound Musculoskeletal: No Tenderness to Palpation of Joints or Extremities Neurological: Cranial nerves II-XII grossly intact - Assessment/Plan Antibiotics: [] Assessment/Plan: [] Active and Suspected Problems (Last Reviewed 12/31/17 @ 08:29 by Salome Angulo, KELLY-C) Infected sacral decub ulcer - cx with mssa, e.faecalis, strep. Recent admit with aspiration pneumonia and sputum cx with mssa. H/o hives with PCN, but tolerated cefepime while at [facility]. Cannot do linezolid due to tramadol and TCA. Will start iv vanc and po flagyl. Will follow, thank you.
[2018-01-11 11:31] LABS: Bedside Glucose 346 mg/dL (70-110)
--- NOTE | 2018-01-11 11:49 | NURSING ---
Dr. Wilkerson in to see patient, NO for IV vanco 1500mg IV [id number] and flagyl 500mg PO TID x 3 days. PT BP 86/54 after therapy with pulse of 90. Recheck after 15 minutes 79/50, 88. Dr. Luis updated, NO for 1L NS bolus and then recheck BP. cda teacher called to placement of PICC line, will be here at 1300 to insert line. Patient and updated.
--- NOTE | 2018-01-11 14:10 | PCM.RX.CS ---
Consult Pharmacy has been consulted to manage selected antiobiotic: Vancomycin Type of Consult: New start Suspected Infection: Skin/Soft tissue Prior Doses of Antibiotics Received/Current Regimen: Received 1500mg IV on 01.11.18 @1400. Labs: Sodium 132 mmol/L (136-145) L 01/10/18 06:05 Potassium 4.9 mmol/L (3.5-5.1) 01/10/18 06:05 Chloride 98 mmol/L (98-107) 01/10/18 06:05 Carbon Dioxide 26.0 mmol/L (21.0-32.0) 01/10/18 06:05 Anion Gap 8 (5-15) 01/10/18 06:05 BUN 26 mg/dL (7-18) H 01/10/18 06:05 Creatinine 0.68 mg/dL (0.70-1.30) L 01/10/18 06:05 Est GFR (MDRD) Af Amer 150 mL/min (>60) 01/10/18 06:05 Est GFR (MDRD) Non-Af 124 mL/min (>60) 01/10/18 06:05 BUN/Creatinine Ratio 38.5 RATIO (10-20) H 01/10/18 06:05 Glucose 162 mg/dL (74-106) H 01/10/18 06:05 Microbiology: Microbiology 01/07/18 15:20 Wound - Other Gram Stain - Final 01/07/18 15:20 Wound - Other Wound Culture - Final Staphylococcus aureus Enterococcus faecalis Streptococcus pseudoporcinus 12/20/17 21:42 Urine, Clean Catch Urine Culture - Final Culture exhibits no growth. Weight used for dosin.4 kg Estimated Creatinine Clearance: 83 ml/min Goal Trough: 15-20 mcg/mL Pharmacy Plan for Drug Dosing: Labs reviewed. Cr 0.68 and CrCl ~83. Will begin dose of 1750mg IV q12h and obtain trough level before 4th dose on 01.13.18 @2330. Pharmacy Service will continue to monitor and adjust dosing as required.
--- NOTE | 2018-01-11 15:00 | CASEMGMT ---
Insurance Clinical information faxed. Pending continued stay approval at this time. Auth#[id number] Nora JERONIMO, HEAD CHARRER
[2018-01-11] MEDS: 0.9% NaCl PICC Flush IV (15:22)
[2018-01-11 15:25] VITALS: BP 86/49; PULSE 102; RESP 20; TEMP 36.1; O2SAT 91
[2018-01-11] MEDS: 0.9% Normal Saline 1,000 ML 500 ML IV (15:26)
[2018-01-11] MEDS: metroNIDAZOLE 500 MG Tablet PO ×2 (15:27→21:33)
[2018-01-11 15:33] VITALS: BP 86/49; PULSE 102
--- NOTE | 2018-01-11 15:58 | NURSING ---
Addendum entered by Cindy Huitron 01/12/18 11:14: [facility] to p/u patient at 1500 by cot. Original Note: Appt made for 01/14 at 1530 at wound center for patient to have wound debrided. updated.
[2018-01-11 16:51] LABS: Bedside Glucose 251 mg/dL (70-110)
--- NOTE | 2018-01-11 17:50 | NURSING ---
sing lumen PICC inserted into left basilic vein by audit specialist. Total length 48cm, inserted at 46cm. Patient tolerated well. verified by EKG technology, in SVC. Dressing with tegaderm and gauze.
[2018-01-11 18:30] VITALS: PULSE 104; RESP 20
[2018-01-11] MEDS: Ipratropium/Albuterol Sulfate 3 ML AMPUL.NEB INHALATION (18:30)
[2018-01-11] MEDS: Budesonide Respules 0.5 MG/2 ML AMPUL.NEB. INHALATION (18:30)
[2018-01-11 20:06] LABS: Bedside Glucose 182 mg/dL (70-110)
[2018-01-11 21:15] LABS: Bedside Glucose 170 mg/dL (70-110)
[2018-01-11 21:32] VITALS: BP 124/74; PULSE 115
[2018-01-11] MEDS: Pramipexole Di-HCl 0.25 MG Tablet PO (21:32)
[2018-01-11] MEDS: Pravastatin 80 MG Tablet PO (21:32)
[2018-01-11] MEDS: Tamsulosin HCl 0.4 MG Capsule PO (21:32)
[2018-01-11] MEDS: Amitriptyline 100 MG Tablet PO (21:33)
[2018-01-12] MEDS: 0.9% NaCl PICC Flush IV ×3 (05:17→17:44)
[2018-01-12 05:51] VITALS: PULSE 100
[2018-01-12] MEDS: metroNIDAZOLE 500 MG Tablet PO ×3 (05:51→21:18)
[2018-01-12] MEDS: BACITRACIN 15 GM Tube 1 APPLIC TOPICAL ×2 (05:51→21:22)
[2018-01-12] MEDS: Furosemide 40 MG Tablet PO ×2 (05:51→14:58)
[2018-01-12] MEDS: Metoprolol Tartrate 50 MG Tablet 150 MG PO ×3 (05:51→21:18)
[2018-01-12] MEDS: Amantadine 100 MG Capsule PO (05:51)
[2018-01-12] MEDS: Lisinopril 20 MG Tablet PO (05:51)
[2018-01-12] MEDS: Menthol/Lanolin/Calamine/Znox 113 GM Tube 1 APPLIC TOPICAL (05:52)
[2018-01-12 06:25] LABS: Bedside Glucose 134 mg/dL (70-110)
[2018-01-12 07:15] VITALS: PULSE 80; RESP 16; O2SAT 94
[2018-01-12] MEDS: Ipratropium/Albuterol Sulfate 3 ML AMPUL.NEB INHALATION ×2 (07:15→13:30)
[2018-01-12] MEDS: Budesonide Respules 0.5 MG/2 ML AMPUL.NEB. INHALATION (07:15)
[2018-01-12] MEDS: Insulin Lispro 100 UNIT/ML INSULN.PEN 17 UNIT SC ×3 (07:40→17:35)
[2018-01-12] MEDS: Magnesium Oxide 400 MG Tablet PO ×3 (07:42→17:36)
[2018-01-12] MEDS: Aspirin 81 MG TAB.CHEW PO (07:43)
[2018-01-12] MEDS: traMADol 50 MG Tablet PO ×3 (07:50→21:16)
[2018-01-12 11:36] LABS: Bedside Glucose 213 mg/dL (70-110)
[2018-01-12] MEDS: Acetaminophen 325 MG Tablet 650 MG PO (11:54)
[2018-01-12 13:30] VITALS: PULSE 81; RESP 18
[2018-01-12 14:58] VITALS: PULSE 100
[2018-01-12 16:00] VITALS: BP 129/57; PULSE 103; RESP 18; TEMP 36.6; O2SAT 100
[2018-01-12 17:05] LABS: Bedside Glucose 204 mg/dL (70-110)
--- NOTE | 2018-01-12 19:43 | NURSING ---
PICC line dressing changed to LISA. sterile technique maintained. Patient tolerated well.
[2018-01-12 21:11] LABS: Bedside Glucose 177 mg/dL (70-110)
[2018-01-12 21:18] VITALS: BP 121/63; PULSE 92
[2018-01-12] MEDS: Tamsulosin HCl 0.4 MG Capsule PO (21:18)
[2018-01-12] MEDS: Pramipexole Di-HCl 0.25 MG Tablet PO (21:18)
[2018-01-12] MEDS: Amitriptyline 100 MG Tablet PO (21:19)
[2018-01-12] MEDS: Pravastatin 80 MG Tablet PO (21:19)
[2018-01-13] VITALS (7 sets, daily range): BP systolic 84–147; BP diastolic 34–75; PULSE 77–115; RESP 16–18; TEMP 36.4; O2SAT 95–99
[2018-01-13] MEDS: Metoprolol Tartrate 50 MG Tablet 150 MG PO ×2 (05:01→19:58)
[2018-01-13] MEDS: metroNIDAZOLE 500 MG Tablet PO ×3 (05:01→19:58)
[2018-01-13] MEDS: Furosemide 40 MG Tablet PO ×2 (05:01→15:04)
[2018-01-13] MEDS: Lisinopril 20 MG Tablet PO (05:02)
[2018-01-13] MEDS: Amantadine 100 MG Capsule PO (05:02)
[2018-01-13] MEDS: Menthol/Lanolin/Calamine/Znox 113 GM Tube 1 APPLIC TOPICAL (05:03)
[2018-01-13] MEDS: BACITRACIN 15 GM Tube 1 APPLIC TOPICAL ×2 (05:04→19:59)
[2018-01-13] MEDS: 0.9% NaCl PICC Flush IV ×2 (06:14→17:46)
[2018-01-13 06:35] LABS: Vancomycin, Trough Level 15.9 ug/mL (5.0-15.0)
[2018-01-13 06:56] LABS: Bedside Glucose 152 mg/dL (70-110)
[2018-01-13] MEDS: Budesonide Respules 0.5 MG/2 ML AMPUL.NEB. INHALATION ×2 (07:00→19:40)
[2018-01-13] MEDS: Ipratropium/Albuterol Sulfate 3 ML AMPUL.NEB INHALATION ×3 (07:00→19:40)
[2018-01-13] MEDS: Aspirin 81 MG TAB.CHEW PO (08:29)
[2018-01-13] MEDS: Magnesium Oxide 400 MG Tablet PO ×3 (08:29→17:40)
[2018-01-13] MEDS: Insulin Lispro 100 UNIT/ML INSULN.PEN 17 UNIT SC ×3 (08:31→17:36)
--- NOTE | 2018-01-13 09:19 | CASEMGMT ---
Insurance Continued stay approved with next update due on 01/15/18. Auth#[id number] Nora JERONIMO, RING CUTTER LATHE OPERATOR
--- NOTE | 2018-01-13 09:20 | PCM.RX.CS ---
Consult Pharmacy has been consulted to manage selected antiobiotic: Vancomycin Type of Consult: Follow-up Suspected Infection: Other Prior Doses of Antibiotics Received/Current Regimen: Currently on vancomycin 1750mg IV q12h with the previous 2 doses given on 01/12/18 at 17:43 and today 01/13/18 at 06:06 Labs: Sodium 132 mmol/L (136-145) L 01/10/18 06:05 Potassium 4.9 mmol/L (3.5-5.1) 01/10/18 06:05 Chloride 98 mmol/L (98-107) 01/10/18 06:05 Carbon Dioxide 26.0 mmol/L (21.0-32.0) 01/10/18 06:05 Anion Gap 8 (5-15) 01/10/18 06:05 BUN 26 mg/dL (7-18) H 01/10/18 06:05 Creatinine 0.68 mg/dL (0.70-1.30) L 01/10/18 06:05 Est GFR (MDRD) Af Amer 150 mL/min (>60) 01/10/18 06:05 Est GFR (MDRD) Non-Af 124 mL/min (>60) 01/10/18 06:05 BUN/Creatinine Ratio 38.5 RATIO (10-20) H 01/10/18 06:05 Glucose 162 mg/dL (74-106) H 01/10/18 06:05 Vancomycin Trough 15.9 ug/mL (5.0-15.0) H 01/13/18 06:00 Microbiology: Microbiology 01/07/18 15:20 Wound - Other Gram Stain - Final 01/07/18 15:20 Wound - Other Wound Culture - Final Staphylococcus aureus Enterococcus faecalis Streptococcus pseudoporcinus 12/20/17 21:42 Urine, Clean Catch Urine Culture - Final Culture exhibits no growth. Goal Trough: 15-20 mcg/mL Pharmacy Plan for Drug Dosing: Trough obtained at 06:00 before this morning's dose was 15.9. Since it is within goal range of 15-20, recommend to continue same dosing of 1750mg IV q12h and recheck trough in 4 days. Pharmacy Service will continue to monitor and adjust dosing as required. Follow-Up Labs: Trough Vancomycin Labs to be done on [date and time ordered]: 01/17/18 05:30
[2018-01-13 11:01] LABS: Bedside Glucose 267 mg/dL (70-110)
[2018-01-13] MEDS: traMADol 50 MG Tablet PO (11:39)
[2018-01-13] MEDS: Acetaminophen 325 MG Tablet 650 MG PO (13:12)
--- NOTE | 2018-01-13 13:26 | NURSING ---
[place] ordered per patternmaker metal recommendation for wound healing.
[2018-01-13 16:56] LABS: Bedside Glucose 190 mg/dL (70-110)
[2018-01-13] MEDS: Pravastatin 80 MG Tablet PO (19:58)
[2018-01-13] MEDS: Pramipexole Di-HCl 0.25 MG Tablet PO (19:58)
[2018-01-13] MEDS: Amitriptyline 100 MG Tablet PO (19:59)
[2018-01-13] MEDS: Tamsulosin HCl 0.4 MG Capsule PO (19:59)
[2018-01-13 20:51] LABS: Bedside Glucose 180 mg/dL (70-110)
[2018-01-14] MEDS: traMADol 50 MG Tablet PO (05:21)
[2018-01-14] MEDS: Amantadine 100 MG Capsule PO (05:32)
[2018-01-14] MEDS: Furosemide 40 MG Tablet PO ×2 (05:32→12:21)
[2018-01-14 05:33] VITALS: BP 150/73; PULSE 109
[2018-01-14] MEDS: metroNIDAZOLE 500 MG Tablet PO ×3 (05:33→21:01)
[2018-01-14] MEDS: Metoprolol Tartrate 50 MG Tablet 150 MG PO ×3 (05:33→21:01)
[2018-01-14] MEDS: BACITRACIN 15 GM Tube 1 APPLIC TOPICAL ×2 (05:34→21:02)
[2018-01-14] MEDS: Menthol/Lanolin/Calamine/Znox 113 GM Tube 1 APPLIC TOPICAL (05:34)
[2018-01-14] MEDS: 0.9% NaCl PICC Flush IV ×2 (05:35→17:21)
[2018-01-14] MEDS: 0.9% NaCl IVPB Med Flush (250 mL) 15 ML IV (05:41)
[2018-01-14 06:46] LABS: Bedside Glucose 170 mg/dL (70-110)
[2018-01-14 07:04] VITALS: PULSE 85; RESP 18; O2SAT 98
[2018-01-14] MEDS: Ipratropium/Albuterol Sulfate 3 ML AMPUL.NEB INHALATION ×2 (07:04→19:05)
[2018-01-14] MEDS: Budesonide Respules 0.5 MG/2 ML AMPUL.NEB. INHALATION ×2 (07:04→19:05)
[2018-01-14] MEDS: Magnesium Oxide 400 MG Tablet PO ×3 (08:57→17:27)
[2018-01-14] MEDS: Aspirin 81 MG TAB.CHEW PO (08:57)
[2018-01-14] MEDS: Insulin Lispro 100 UNIT/ML INSULN.PEN 17 UNIT SC ×3 (08:58→17:42)
--- NOTE | 2018-01-14 10:58 | PCM.PN.ID ---
Patient Problems: Active and Suspected Problems (Last Reviewed 12/31/17 @ 08:29 by Salome Angulo NP-C) Sepsis (Acute) Healthcare associated bacteremia due to Staphylococcus aureus (Acute) Infected decubitus ulcer (Acute) Subjective: Feeling ok, no issues with picc. Ulcer still sore. No fever. - Physical Exam General: Alert, Cooperative, No apparent distress Lungs: Clear to auscultation, Normal air movement Cardiovascular: Regular rate, Regular Rhythm Abdomen: Soft, Non Tender, Non-Distended Skin: Ulcer/ Wound - sacrum bandaged Vital Signs Temp Pulse Resp BP Pulse Ox 97.6 F L 85 18 150/73 H 98 01/13/18 15:16 01/14/18 07:04 01/14/18 07:04 01/14/18 05:33 01/14/18 07:04 Oxygen Flow Rate (L/min) 5 Oxygen Delivery Method Room Air Weight: 106.367 kg Body Mass Index (BMI) 31.4 Finger Stick Blood Glucose 95 Intake and Output for Last 24 Hours 01/12/18 01/13/18 01/14/18 23:59 23:59 23:59 Intake Total 2540 / 2540 1080 / 1080 360 / 360 Output Total 4025 / 4025 5475 / 5475 850 / 850 Balance -1485 / -1485 -4395 / -4395 -490 / -490 Microbiology Past 72 Hours 01/07/18 15:20 Gram Stain - Final Wound - Other Wound Culture - Final Staphylococcus aureus Enterococcus faecalis Streptococcus pseudoporcinus POC Glucose 01/14/18 01/13/18 01/13/18 06:18 20:40 16:51 POC Glucose 170 H 180 H 190 H 01/13/18 10:53 POC Glucose 267 H Medical Necessity - Tobacco Use Smoking Status: Former smoker Tobacco Use: Non-smoker Route of nutrition/ use of supplements: [] Nutritional Intake: [] IV Site: [] Lane Catheter: [] - Assessment/Plan Antibiotics: [] Assessment/Plan: [] Active and Suspected Problems (Last Reviewed 12/31/17 @ 08:29 by Salome Angulo INFRASTRUCTURE ENGINEER-C) Infected sacral decub ulcer - cx with mssa, e.faecalis, strep. Recent admit with aspiration pneumonia and sputum cx with mssa. H/o hives with PCN, but tolerated cefepime while at [facility]. Cannot do linezolid due to tramadol and TCA. On iv vanc and po flagyl. Will follow
[2018-01-14 11:26] LABS: Bedside Glucose 210 mg/dL (70-110)
[2018-01-14 12:24] VITALS: BP 118/69; PULSE 101
--- NOTE | 2018-01-14 13:24 | MDS.RN ---
Pain interview for TAMICA 01/16/18 completed.
[2018-01-14 15:25] VITALS: BP 112/62; PULSE 87; RESP 18; TEMP 36.9; O2SAT 95
--- NOTE | 2018-01-14 17:36 | NURSING ---
PT RETURNED FROM WOUND CENTER WITH NEW DRESSING CHANGES TO COCCYX WOUND, ALSO ORDER FOR SURGICAL CONSULT FOR WOUND DEBRIDEMENT.
[2018-01-14 17:41] LABS: Bedside Glucose 117 mg/dL (70-110)
[2018-01-14 19:05] VITALS: PULSE 90; RESP 18; O2SAT 96
[2018-01-14 21:01] VITALS: BP 137/53; PULSE 111
[2018-01-14] MEDS: Pravastatin 80 MG Tablet PO (21:01)
[2018-01-14] MEDS: Pramipexole Di-HCl 0.25 MG Tablet PO (21:01)
[2018-01-14] MEDS: Amitriptyline 100 MG Tablet PO (21:01)
[2018-01-14] MEDS: Tamsulosin HCl 0.4 MG Capsule PO (21:02)
[2018-01-14 21:06] LABS: Bedside Glucose 254 mg/dL (70-110)
[2018-01-15] VITALS (7 sets, daily range): BP systolic 116–159; BP diastolic 41–87; PULSE 78–108; RESP 16–20; TEMP 36.9; O2SAT 94–95; BMI 30.1
[2018-01-15] MEDS: 0.9% NaCl PICC Flush IV (05:14)
[2018-01-15] MEDS: 0.9% NaCl IVPB Med Flush (250 mL) 15 ML IV (05:15)
[2018-01-15] MEDS: Menthol/Lanolin/Calamine/Znox 113 GM Tube 1 APPLIC TOPICAL (05:21)
[2018-01-15] MEDS: BACITRACIN 15 GM Tube 1 APPLIC TOPICAL (05:22)
[2018-01-15] MEDS: metroNIDAZOLE 500 MG Tablet PO ×2 (05:24→13:21)
[2018-01-15] MEDS: Amantadine 100 MG Capsule PO (05:24)
[2018-01-15] MEDS: Furosemide 40 MG Tablet PO ×2 (05:24→12:04)
[2018-01-15] MEDS: Metoprolol Tartrate 50 MG Tablet 150 MG PO ×2 (05:24→12:06)
[2018-01-15] MEDS: Collagenase 30gm Tube 1 APPLIC TOPICAL (05:26)
[2018-01-15 06:21] LABS: Bedside Glucose 151 mg/dL (70-110)
--- NOTE | 2018-01-15 07:09 | WC ---
01/13/18: 15:00 Patient referred for wound center consult by Dr. Wilkerson, and Dr. Luis for pressure ulcer to to [facility]; duration > 2 months. Patient arrived via ED Cart from TCU Room #19 with nurse and nurse promotions assistant in attendance. Wound history is related to traumatic injury suffered after falling down stairs and suffering TBI in October 2017. Mr. Vargas was flown to [facility] for treatment. He was later transferred to [facility] December 19, 2017 for rehabilitive care. It was noted on admission, the ulcer was present according to Mrs. Vargas (Please review H&P and transfer records). Wound regimen at this time was calcium alginate dressing being covered with gauze; off-loading air mattress; SCD's for phlebitis protocol, I.V. antibiotics (Vancomycin q12h), frequent turning & repositioning while in bed. Examination of ulcer shows an area measuring 7.0 X 8.0 X 0.5 of devitalized, unstage able ulcer. Ulcer bed has hard, necrotic eschar of approximately 60%. Remainder is soft, white slough. Periwound is pale red. Mr. Vargas was seen by JOSE Crane. Attempt to excisionally debride slough and necrotic tissue using #7 currette was minimally successful. Recommendations for wound care was as follows: 1. Surgery Consult with possible future use of VAC 2. Collagenase Santyl to be applied nickel-thick daily covered with fluffed gauze and topped with Optifoam (Non-Adhesive) and secured using Medipore tape. 3. Continue turning and repositioning q2h and keep patient off of back as much as possible. 4. Increase protein supplements He was transported back to the hospital on ED Cart with assistance of nurse, clinical nursing intern, and wound center nurse.
[2018-01-15] MEDS: Budesonide Respules 0.5 MG/2 ML AMPUL.NEB. INHALATION (07:23)
[2018-01-15] MEDS: Ipratropium/Albuterol Sulfate 3 ML AMPUL.NEB INHALATION ×2 (07:23→14:25)
[2018-01-15] MEDS: Aspirin 81 MG TAB.CHEW PO (08:13)
[2018-01-15] MEDS: Magnesium Oxide 400 MG Tablet PO ×2 (08:14→12:04)
[2018-01-15] MEDS: Insulin Lispro 100 UNIT/ML INSULN.PEN 17 UNIT SC ×2 (08:14→12:04)
--- NOTE | 2018-01-15 11:28 | CASEMGMT ---
Insurance Clinical information faxed. Pending continued stay approval at this time. Auth#[id number] Nora JERONIMO, COMMUNITY DEVELOPMENT AIDE
[2018-01-15 11:41] LABS: Bedside Glucose 275 mg/dL (70-110)
[2018-01-15] MEDS: traMADol 50 MG Tablet PO (12:29)
[2018-01-15] MEDS: Pivot 1.5 Cal 1,000 ML BOTTLE 480 ML GT (13:04)
--- NOTE | 2018-01-15 13:37 | CASEMGMT ---
Brief interview for mental status (BIMS) and resident mood interview (PHQ-9) completed on this day. BIMS score 05/22. PHQ-9 score 08/04
--- NOTE | 2018-01-15 13:56 | CON.PCM_ITS ---
Reason for Consult Date of Consultation: 01/15/18 History of Present Illness: The patient is a 67 year old M admitted to's TCU for rehabilitation following a recent fall with intracranial bleeds and right-sided paraplegia. Patient has been seen the wound center for treatment of his sacral ulcer however per nursing it has gotten worse and looks darker in the center and his white blood cell count on 01/10 was 11.7. Currently patient complains about pain at his sacrum and Dr. Wilkerson with infectious disease also currently following the patient in TCU. Past Medical History Past Medical History (Chronic Problems): Chronic Problems (Last Reviewed 12/31/17 @ 08:29 by Salome Angulo, KELLY-C) Right hemiplegia (Chronic) Congestive heart failure (Chronic) Alcohol abuse (Chronic) Sleep apnea (Chronic) Diabetes mellitus (Chronic) Fall (Chronic) Traumatic brain injury (Chronic) Intraparenchymal hemorrhage of brain (Chronic) Subarachnoid hemorrhage (Chronic) Subdural hematoma (Chronic) Intraventricular hemorrhage (Chronic) Right scapula fracture (Chronic) Tobacco abuse (Chronic) Dysphagia (Chronic) Insomnia (Chronic) Vitamin D deficiency (Chronic) Depression (Chronic) GERD (gastroesophageal reflux disease) (Chronic) BPH (benign prostatic hyperplasia) (Chronic) Encounter for long-term current use of high risk medication (Chronic) Obstructive sleep apnea (Chronic) 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) S/P CABG x3 with right radial to LAD, SVG to RCA, and SVG to OM 2; stenting to LAD in February 2017; Presence of coronary angioplasty implant and graft (Chronic) Presence of aortocoronary bypass graft (Chronic) CABG X 3 2001 ?, Radial artery -LAD, SVG-RCA, SVG-OM2 Non-ST elevation myocardial infarction (NSTEMI), initial care episode (Chronic) 02/16/17 Ischemic cardiomyopathy (Chronic) Restless leg syndrome (Chronic) Hyperlipidemia (Chronic) Hypertensive emergency (Chronic) COPD (chronic obstructive pulmonary disease) (Chronic) Hypertension (Chronic) Morbid obesity (Chronic) CAD (coronary artery disease) (Chronic) Stented coronary artery (Chronic) [facility] w/[id number] LAD (grafts occluded X 3) 02/20/17 Former smoker (Chronic) quit February 2017 Diabetes mellitus type 2 in obese (Chronic) Hx of CABG (Chronic) CABG X3 rADIAL ARTERY-lad, svg-rca, svg-om2. MULTIPLE CORONARY STENTS Medical History: Medical History (Last Reviewed 12/31/17 @ 08:29 by SB Reeder) Encounter for long-term current use of high risk medication (Chronic) Z79.899 Obstructive sleep apnea (Chronic) G47.33 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) I25.810 S/P CABG x3 with right radial to LAD, SVG to RCA, and SVG to OM 2; stenting to LAD in February 2017; Non-ST elevation myocardial infarction (NSTEMI), initial care episode (Chronic) I21.4 02/16/17 Ischemic cardiomyopathy (Chronic) I25.5 FUO (fever of unknown origin) (Acute) Restless leg syndrome (Chronic) Hyperlipidemia (Chronic) E78.5 Hypertensive emergency (Chronic) I16.1 Demand ischemia (Resolved) I24.8 COPD (chronic obstructive pulmonary disease) (Chronic) J44.9 Hypertension (Chronic) I10 Morbid obesity (Chronic) E66.01 Systolic CHF, acute (Acute) I50.21 CAD (coronary artery disease) (Chronic) I25.10 Stented coronary artery (Chronic) [facility] w/[id number] LAD (grafts occluded X 3) 02/20/17 Former smoker (Chronic) Z87.891 quit February 2017 Diabetes mellitus type 2 in obese (Chronic) E11.69, E66.9 Nicotine dependence F17.200 Allergies atorvastatin Allergy (Verified 12/29/17 08:28) Hives cilostazol Allergy (Verified 12/29/17 08:28) Hives colestipol Allergy (Verified 12/29/17 08:28) Hives diltiazem Allergy (Verified 12/29/17 08:28) Hives gemfibrozil Allergy (Verified 12/29/17 08:28) Hives naproxen [From Naprosyn] Allergy (Verified 12/29/17 08:28) Hives niacin Allergy (Verified 12/29/17 08:28) Hives Penicillins Allergy (Verified 12/29/17 08:28) Hives pravastatin Allergy (Verified 12/29/17 08:28) Hives procaine [From Novocain] Allergy (Verified 12/29/17 08:28) Hives rosuvastatin Allergy (Verified 12/29/17 08:28) Hives simvastatin Allergy (Verified 12/29/17 08:28) Hives isosorbide Adverse Reaction (Severe, Verified 12/29/17 08:28) Unknown Home Medications: Ambulatory Orders Medication Instructions Recorded Amitriptyline HCl 100 mg GT QHS 02/16/17 Cholecalciferol (Vitamin D3) 5,000 unit GT DAILY 02/16/17 [Vitamin D3] Duloxetine HCl 60 mg GT DAILY 02/16/17 Lactase 1 tab GT TIDCM 02/16/17 Lansoprazole [Prevacid] 30 mg GT BIDCM 02/16/17 Nitroglycerin 0.4 mg SL PRN PRN 02/16/17 Ropinirole HCl [Requip] 0.5 mg GT QHS 02/16/17 Tamsulosin HCl [Flomax] 0.4 mg GT QHS 02/16/17 traMADol [Ultram] 50 mg GT TID PRN 02/16/17 lisinopril 20 mg tablet 20 mg GT QDAY 05/20/17 Albuterol Inhaler [Ventolin Hfa] 1 - 2 puff INHALATION 4X/DAY PRN 12/04/17 PRN Amantadine Liquid 100 mg GT DAILY 12/04/17 Aspirin [Aspirin, Baby] 81 mg GT DAILY@0800 12/04/17 Budesonide Aerosol [Pulmicort 0.5 mg INHALATION BID 12/04/17 Respules] Magnesium Oxide [Mag-Ox 400] 400 mg GT TIDCM 12/04/17 Pravastatin [Pravachol] 80 mg PO QHS 12/04/17 ranitidine 150 mg capsule 150 mg GT QHS 12/04/17 Acetaminophen Liquid [Tylenol 650 mg GT Q4H PRN PRN udc 12/19/17 Liquid] Albuterol Aerosols [Ventolin 2.5 mg INHALATION Q2H PRN PRN 12/19/17 Aerosols] vial.neb. Amlodipine [Norvasc] 10 mg GT DAILY 12/19/17 Bisacodyl [Dulcolax] 5 mg PO DAILY PRN PRN tab 12/19/17 Furosemide [Lasix] 40 mg GT BIDLX 12/19/17 Insulin Glargine [Lantus SoloStar 35 units SC DAILY 12/19/17 Pen] Insulin Glargine [Lantus SoloStar 50 units SC QHS 12/19/17 Pen] Insulin Lispro [Humalog KwikPen] 10 unit SC Q6 12/19/17 Ipratropium/Albuterol Sulfate 3 ml INHALATION Q6H.RT 12/19/17 [Duoneb] Levofloxacin [Levaquin] 750 mg PO DAILY 12/19/17 Mag Hydrox/Al Hydrox/Simeth 30 ml GT Q6H PRN PRN udc 12/19/17 [Mylanta II] Magnesium Hydroxide [Milk Of 30 ml GT DAILY PRN udc 12/19/17 Magnesia] Metoprolol Tartrate [Lopressor 150 mg GT TID 12/19/17 (beta stepan)] Mineral Oil/Petrolatum,White 1 applic TOPICAL BID 12/19/17 [Eucerin] Potassium Cloride Effervescent 50 meq GT BIDCM 12/19/17 [Potassium Chl 25 Meq Eff (For Liquid)] Pramipexole Di-HCl [Mirapex] 0.25 mg GT QHS 12/19/17 Zolpidem Tartrate [Ambien] 5 mg GT QHS PRN PRN tab 12/19/17 Surgical History: Surgical History (Last Reviewed 12/31/17 @ 08:29 by SB Reeder) Presence of coronary angioplasty implant and graft (Chronic) Z95.5 Presence of aortocoronary bypass graft (Chronic) Z95.1 CABG X 3 2002 ?, Radial artery -LAD, SVG-RCA, SVG-OM2 Hx of CABG (Chronic) CABG X3 rADIAL ARTERY-lad, svg-rca, svg-om2. MULTIPLE CORONARY STENTS Surgical History: angioplasty, coronary bypass surgery - x 3., - - PEG tube. Psychiatric History: Depression Lives: Spouse/ Significant Other Smoking Status: Former smoker Tobacco Use: Non-smoker Alcohol: Heavy Drugs: None - *Family History Maternal Family History: Family History (Last Reviewed 12/31/17 @ 08:29 by SB Reeder) Brother Heart disease Father Heart disease History Items: No pertinent history, - - Alzheimer Paternal Family History: Family History (Last Reviewed 12/31/17 @ 08:29 by SB Reeder) Brother Heart disease Father Heart disease History Items: No pertinent history Review of Systems Constitutional: Denies: Chills Eyes: Denies: Blurred vision Cardiovascular: Denies: Chest Pain Respiratory: Denies: Shortness of breath at rest Gastrointestinal: Denies: Abdominal Pain Skin: Reports: Wounds - sacral wound Neurological: Reports: - - right paraplegia Patient Problems: Active and Suspected Problems (Last Reviewed 12/31/17 @ 08:29 by Salome Angulo [employer]-C) Sepsis (Acute) Healthcare associated bacteremia due to Staphylococcus aureus (Acute) Infected decubitus ulcer (Acute) - Physical Exam General: Alert, Oriented x3, Cooperative HEENT: Atraumatic Lungs: Normal air movement Cardiovascular: Regular rate Abdomen: Soft, Non Tender, Non-Distended, - - PEG in place, no rebound or guarding Skin: Ulcer/ Wound - Sacral wound with necrotic tissue about 3 x 4 cm at the superior gluteal cleft with surrounding erythema Neurological: Cranial nerves II-XII grossly intact, - - Right-sided paraplegia Psych/Mental Status: Normal Affect Vital Signs Temp Pulse Resp BP Pulse Ox 98.4 F 108 H 18 116/41 L 95 01/14/18 15:25 01/15/18 13:30 01/15/18 13:30 01/15/18 13:30 01/15/18 13:30 Oxygen Flow Rate (L/min) 5 Oxygen Delivery Method Room Air Weight: 234 lb 8 oz Body Mass Index (BMI) 31.4 Finger Stick Blood Glucose 95 Intake and Output for Last 24 Hours 01/13/18 01/14/18 01/15/18 23:59 23:59 23:59 Intake Total 1080 / 1080 1020 / 1020 1420 / 1420 Output Total 5475 / 5475 3400 / 3400 Balance -4395 / -4395 -2380 / -2380 1420 / 1420 POC Glucose 01/15/18 01/15/18 01/14/18 11:24 06:12 20:53 POC Glucose 275 H 151 H 254 H 01/14/18 17:32 POC Glucose 117 H Assessment/Plan All Active Problems (Last Reviewed 12/31/17 @ 08:29 by Salome Angulo [employer]) Sepsis (Acute) Healthcare associated bacteremia due to Staphylococcus aureus (Acute) Infected decubitus ulcer (Acute) Alcohol intoxication (Resolved) Acute respiratory failure (Acute) Aspiration pneumonia (Acute) Acute and chronic respiratory failure with hypoxia (Acute) FUO (fever of unknown origin) (Acute) Demand ischemia (Resolved) Systolic CHF, acute (Acute) Acute respiratory failure with hypoxia and hypercarbia (Resolved) Multifocal community-acquired pneumonia (Resolved) Severe sepsis (Resolved) 67 y/o male with infected sacral wound, intracranial bleeds s/p recent fall, right side paraplegia, DM 1. Patient does have an infected sacral ulcer with necrotic tissue about 3 x 4 cm area at his superior gluteal cleft. Discussed patient would recommend debridement of the sacral wound. Discussed risk including but not limited to eating further debridement, bleeding, issues with wound healing and, anesthesia. Patient is agreeable to proceed with debridement of sacral wound. We will plan for wet-to-dry dressings 3 times daily after the debridement and consult wound care. Dr. Felix is agreeable to admit after debridement. Currently Dr. Juarez is not in town, plan to consult him once he is back on the . 2. Continue antibiotics per DIMITRIOS Arias M.D. Pager: [phone] [facility] [address] [place] [address], [facility], [address] [place] [address] Office: [phone] Code Visit Inpatient E&M: 12800 Init Hosp L1 - .57 modifier
--- NOTE | 2018-01-15 14:02 | NURSING ---
dr bender in to see coccyx wound and planning afternoon surgery. cps called for ekg and labs ordered. attempted to contact but no answer and message left.
[2018-01-15 14:18] LABS: Absolute Lymphocyte Count 1.48 X10^3/ul (0.83-4.51); Absolute Neutrophil Count 7.6 X10^3/uL (2.0-7.7); Basophil# 0.03 X10^3/uL; Basophil% 0.3 % (0-1); Eosinophil# 0.13 X10^3/uL; Eosinophils% 1.3 % (0-5); Hemoglobin 9.3 g/dl (13.0-16.5); Lymphocyte # 1.48 X10^3/ul (4.0); Lymphocyte % 15.1 % (19-41); Mean Corp Hgb Conc 32.1 g/gl (32-36); Mean Corpuscular Hgb 30.5 pg (27.0-32.0); Mean Corpuscular Volume 95.1 fL (80-94); Monocyte# 0.53 X10^3/uL; Monocyte% 5.4 % (0-10); Neutrophil # 7.58 X10^3/uL (2.7-7.7); Neutrophil % 77.4 % (47-70); Platelet Count 263 K/mm3 (150-450); RBC Distribution Width CV 14.3 % (11.6-14.6); RBC Distribution Width SD 49.5 fl (35.1-43.9); Red Blood Count 3.05 M/mm3 (4.6-6.2); White Blood Count 9.8 K/mm3 (4.4-11.0)
[2018-01-15 14:19] LABS: POSITIVE COUNT NO; POSITIVE DIFFERENTIAL NO; POSITIVE MORPHOLOGY NO
[2018-01-15 16:56] LABS: Bedside Glucose 157 mg/dL (70-110)
[2018-01-15 17:31] LABS: Bedside Glucose 138 mg/dL (70-110)
--- NOTE | 2018-01-16 08:12 | NURSING ---
Dr. Arias calls TCU, states pt did well overnight and will come back to TCU today. N.O. for wet to dry dressing to coccyx TID, to be seen by wound nurse Thursday, can continue with faraz as previously ordered.
--- NOTE | 2018-01-16 11:51 | NURSING ---
Pt returned from [facility] at this time
[2018-01-16] MEDS: Insulin Lispro 100 UNIT/ML INSULN.PEN 17 UNIT SC ×2 (12:05→18:09)
[2018-01-16 13:00] LABS: Bedside Glucose 228 mg/dL (70-110)
[2018-01-16 13:40] VITALS: PULSE 71; RESP 18
[2018-01-16] MEDS: Ipratropium/Albuterol Sulfate 3 ML AMPUL.NEB INHALATION ×2 (13:40→19:15)
[2018-01-16 14:32] VITALS: BP 139/63; PULSE 102
[2018-01-16] MEDS: Furosemide 40 MG Tablet PO (14:32)
[2018-01-16] MEDS: Metoprolol Tartrate 50 MG Tablet 150 MG PO ×2 (14:32→21:11)
[2018-01-16 14:43] VITALS: BP 139/63; PULSE 102; RESP 17; TEMP 36.9; O2SAT 94
[2018-01-16] MEDS: traMADol 50 MG Tablet PO (14:46)
[2018-01-16 17:00] LABS: Bedside Glucose 141 mg/dL (70-110)
[2018-01-16] MEDS: 0.9% NaCl PICC Flush IV ×2 (18:04→21:06)
[2018-01-16] MEDS: Magnesium Oxide 400 MG Tablet PO (18:08)
[2018-01-16 19:15] VITALS: PULSE 68; RESP 18; O2SAT 94
[2018-01-16] MEDS: Budesonide Respules 0.5 MG/2 ML AMPUL.NEB. INHALATION (19:15)
[2018-01-16 21:01] LABS: Bedside Glucose 180 mg/dL (70-110)
[2018-01-16 21:11] VITALS: BP 141/59; PULSE 90
[2018-01-16] MEDS: metroNIDAZOLE 500 MG Tablet PO (21:11)
[2018-01-16] MEDS: Amitriptyline 100 MG Tablet PO (21:12)
[2018-01-16] MEDS: Tamsulosin HCl 0.4 MG Capsule PO (21:12)
[2018-01-16] MEDS: Pravastatin 80 MG Tablet PO (21:12)
[2018-01-16] MEDS: Pramipexole Di-HCl 0.25 MG Tablet PO (21:13)
[2018-01-16] MEDS: BACITRACIN 15 GM Tube 1 APPLIC TOPICAL (21:18)
[2018-01-17] VITALS (7 sets, daily range): BP systolic 126–148; BP diastolic 68–71; PULSE 84–105; RESP 16–18; TEMP 36.7; O2SAT 98–99
[2018-01-17] MEDS: BACITRACIN 15 GM Tube 1 APPLIC TOPICAL ×2 (05:12→20:33)
[2018-01-17] MEDS: Menthol/Lanolin/Calamine/Znox 113 GM Tube 1 APPLIC TOPICAL (05:13)
[2018-01-17] MEDS: Metoprolol Tartrate 50 MG Tablet 150 MG PO ×3 (05:14→20:27)
[2018-01-17] MEDS: metroNIDAZOLE 500 MG Tablet PO ×3 (05:14→20:27)
[2018-01-17] MEDS: Furosemide 40 MG Tablet PO ×2 (05:15→13:49)
[2018-01-17] MEDS: Amantadine 100 MG Capsule PO (05:16)
[2018-01-17 05:36] LABS: Absolute Lymphocyte Count 1.56 X10^3/ul (0.83-4.51); Absolute Neutrophil Count 5.6 X10^3/uL (2.0-7.7); Basophil# 0.02 X10^3/uL; Basophil% 0.2 % (0-1); Eosinophil# 0.15 X10^3/uL; Eosinophils% 1.8 % (0-5); Hemoglobin 9.1 g/dl (13.0-16.5); Lymphocyte # 1.56 X10^3/ul (4.0); Lymphocyte % 19.2 % (19-41); Mean Corp Hgb Conc 32.5 g/gl (32-36); Mean Corpuscular Hgb 31.5 pg (27.0-32.0); Mean Corpuscular Volume 96.9 fL (80-94); Mean Platelet Vol. 9.9 fl (6.2-12.0); Monocyte# 0.78 X10^3/uL; Monocyte% 9.6 % (0-10); Neutrophil # 5.56 X10^3/uL (2.7-7.7); Neutrophil % 68.6 % (47-70); Platelet Count 241 K/mm3 (150-450); RBC Distribution Width CV 13.9 % (11.6-14.6); RBC Distribution Width SD 46.6 fl (35.1-43.9); Red Blood Count 2.89 M/mm3 (4.6-6.2); White Blood Count 8.1 K/mm3 (4.4-11.0)
[2018-01-17 05:37] LABS: POSITIVE COUNT NO; POSITIVE DIFFERENTIAL NO; POSITIVE MORPHOLOGY NO
[2018-01-17] MEDS: 0.9% NaCl IVPB Med Flush (250 mL) 15 ML IV (06:04)
[2018-01-17] MEDS: 0.9% NaCl PICC Flush IV ×3 (06:08→17:31)
[2018-01-17 06:31] LABS: Bedside Glucose 111 mg/dL (70-110)
[2018-01-17 06:53] LABS: Vancomycin, Trough Level 17.1 ug/mL (5.0-15.0)
[2018-01-17 06:55] LABS: Anion Gap 13 (5-15); BUN 6 mg/dL (7-18); BUN/Creat Ratio 16.1 RATIO (10-20); Calcium,Total 8.6 mg/dL (8.5-10.1); Chloride 103 mmol/L (98-107); Creatinine, Serum 0.37 mg/dL (0.70-1.30); EST Glomerular Filtration Rate 247 mL/min (>60); Est Glom Filt Rate - Afr Amer 299 mL/min (>60); Estimated Creatinine Clearance 83.34 ml/min; Glucose 99 mg/dL (74-106); Sodium Level 142 mmol/L (136-145)
--- NOTE | 2018-01-17 07:02 | PCM.RX.CS ---
Consult Pharmacy has been consulted to manage selected antiobiotic: Vancomycin Type of Consult: Follow-up Suspected Infection: Skin/Soft tissue Prior Doses of Antibiotics Received/Current Regimen: Medications Vancomycin HCl 1,750 mg/ (Sodium Chloride) 535 mls @ 250 mls/hr IV Q12H BULL Last Admin: 01/17/18 06:04 Dose: 250 mls/hr Labs: Sodium 142 mmol/L (136-145) 01/17/18 05:30 Potassium 4.0 mmol/L (3.5-5.1) 01/17/18 05:30 Chloride 103 mmol/L (98-107) 01/17/18 05:30 Carbon Dioxide 26.0 mmol/L (21.0-32.0) 01/17/18 05:30 Anion Gap 13 (5-15) 01/17/18 05:30 BUN 6 mg/dL (7-18) L 01/17/18 05:30 Creatinine 0.37 mg/dL (0.70-1.30) L 01/17/18 05:30 Est GFR (MDRD) Af Amer 299 mL/min (>60) 01/17/18 05:30 Est GFR (MDRD) Non-Af 247 mL/min (>60) 01/17/18 05:30 BUN/Creatinine Ratio 16.1 RATIO (10-20) 01/17/18 05:30 Glucose 99 mg/dL (74-106) 01/17/18 05:30 Vancomycin Trough 17.1 ug/mL (5.0-15.0) H 01/17/18 05:30 Microbiology: Microbiology 01/07/18 15:20 Wound - Other Gram Stain - Final 01/07/18 15:20 Wound - Other Wound Culture - Final Staphylococcus aureus Enterococcus faecalis Streptococcus pseudoporcinus 12/20/17 21:42 Urine, Clean Catch Urine Culture - Final Culture exhibits no growth. Weight used for dosin.4 kg Estimated Creatinine Clearance: 83 Goal Trough: 15-20 mcg/mL Pharmacy Plan for Drug Dosing: Pharmacy Service will continue to monitor and adjust dosing as required. Follow-Up Labs: Trough Vancomycin Labs to be done on [date and time ordered]: 01/18/18 @2577
--- NOTE | 2018-01-17 08:20 | PCM.PN.SRG ---
Patient Problems: Active and Suspected Problems (Last Updated 01/15/18 @ 18:40 by Darnell Felix DO) Infected decubitus ulcer (Acute) Subjective: pt reports sacrum is less sore than before debridement - Physical Exam General: Alert, Oriented x3, Cooperative, No apparent distress Lungs: Normal air movement Skin: Ulcer/ Wound - sacral wound base still healthy appearing with viable fat at base, no necrotic tissue seen Vital Signs Temp Pulse Resp BP Pulse Ox 98.4 F 84 18 137/71 H 94 01/16/18 14:43 01/17/18 05:14 01/16/18 19:15 01/17/18 05:14 01/16/18 19:15 Oxygen Flow Rate (L/min) 5 Oxygen Delivery Method Room Air Weight: 234 lb 8 oz Body Mass Index (BMI) 30.1 Finger Stick Blood Glucose 95 Intake and Output for Last 24 Hours 01/15/18 01/16/18 01/17/18 23:59 23:59 23:59 Intake Total 1420 / 1420 240 / 240 Output Total 1000 / 1000 3050 / 3050 350 / 350 Balance 420 / 420 -2810 / -2810 -350 / -350 Laboratory Tests Past 24 Hrs 01/17/18 01/17/18 01/17/18 05:30 05:30 05:30 WBC 8.1 RBC 2.89 L Hgb 9.1 L Hct 28.0 L MCV 96.9 H MCH 31.5 MCHC 32.5 RDW 13.9 RDW Differential 46.6 H Plt Count 241 MPV 9.9 Immature Gran % (Auto) 0.600 Neut % (Auto) 68.6 Lymph % (Auto) 19.2 [place] % (Auto) 9.6 Eos % (Auto) 1.8 Baso % (Auto) 0.2 Absolute Neuts (auto) 5.6 Absolute Lymphs (auto) 1.56 Total Counted Not Reportable Sodium 142 Potassium 4.0 Chloride 103 Carbon Dioxide 26.0 Anion Gap 13 BUN 6 L Creatinine 0.37 L Estim Creat Clear Calc 83.34 Est GFR (MDRD) Af Amer 299 Est GFR (MDRD) Non-Af 247 BUN/Creatinine Ratio 16.1 Glucose 99 Calcium 8.6 Vancomycin Trough 17.1 H POC Glucose 01/17/18 01/16/18 01/16/18 06:13 20:57 16:49 POC Glucose 111 H 180 H 141 H 01/16/18 12:03 POC Glucose 228 H Medical Necessity - Tobacco Use Smoking Status: Former smoker Tobacco Use: Non-smoker Assessment/Plan All Active Problems (Last Updated 01/15/18 @ 18:40 by Darnell Felix DO) Alcohol intoxication (Resolved) Acute respiratory failure (Acute) Aspiration pneumonia (Acute) Acute and chronic respiratory failure with hypoxia (Acute) Sepsis (Resolved) Healthcare associated bacteremia due to Staphylococcus aureus (Resolved) Infected decubitus ulcer (Acute) Infected decubitus ulcer (Acute) FUO (fever of unknown origin) (Acute) Demand ischemia (Resolved) Systolic CHF, acute (Acute) Acute respiratory failure with hypoxia and hypercarbia (Resolved) Multifocal community-acquired pneumonia (Resolved) Severe sepsis (Resolved) 67 y/o M s/p debridement of infected sacral decubitus ulcer 1. continue wound care- wet to dry TID with calmoseptine on superficial debrided areas. c/s wound care nurse 2. continue abx per ID, cx pending- GNR,
[2018-01-17] MEDS: Magnesium Oxide 400 MG Tablet PO ×3 (08:21→18:20)
[2018-01-17] MEDS: Aspirin 81 MG TAB.CHEW PO (08:23)
[2018-01-17] MEDS: Insulin Lispro 100 UNIT/ML INSULN.PEN 17 UNIT SC ×3 (08:26→18:18)
[2018-01-17 11:46] LABS: Bedside Glucose 197 mg/dL (70-110)
[2018-01-17] MEDS: Ipratropium/Albuterol Sulfate 3 ML AMPUL.NEB INHALATION ×2 (12:56→19:27)
--- NOTE | 2018-01-17 15:44 | NURSING ---
Dr. Luis reviewed AM labs, NNO
[2018-01-17 16:56] LABS: Bedside Glucose 157 mg/dL (70-110)
[2018-01-17] MEDS: Budesonide Respules 0.5 MG/2 ML AMPUL.NEB. INHALATION (19:27)
[2018-01-17] MEDS: Pramipexole Di-HCl 0.25 MG Tablet PO (20:28)
[2018-01-17] MEDS: Pravastatin 80 MG Tablet PO (20:28)
[2018-01-17] MEDS: Tamsulosin HCl 0.4 MG Capsule PO (20:28)
[2018-01-17] MEDS: Amitriptyline 100 MG Tablet PO (20:28)
[2018-01-17 21:15] LABS: Bedside Glucose 255 mg/dL (70-110)
[2018-01-18] VITALS (7 sets, daily range): BP systolic 145–150; BP diastolic 78–91; PULSE 82–100; RESP 16–18; TEMP 36.5; O2SAT 97–98
[2018-01-18] MEDS: Furosemide 40 MG Tablet PO ×2 (04:59→13:25)
[2018-01-18] MEDS: Amantadine 100 MG Capsule PO (04:59)
[2018-01-18] MEDS: metroNIDAZOLE 500 MG Tablet PO ×3 (04:59→20:04)
[2018-01-18] MEDS: Metoprolol Tartrate 50 MG Tablet 150 MG PO ×3 (05:00→20:04)
[2018-01-18] MEDS: 0.9% NaCl IVPB Med Flush (250 mL) 15 ML IV (05:00)
[2018-01-18] MEDS: Menthol/Lanolin/Calamine/Znox 113 GM Tube 1 APPLIC TOPICAL (05:10)
[2018-01-18] MEDS: BACITRACIN 15 GM Tube 1 APPLIC TOPICAL ×2 (05:11→20:11)
[2018-01-18] MEDS: 0.9% NaCl PICC Flush IV ×5 (05:27→21:22)
[2018-01-18 06:46] LABS: Bedside Glucose 151 mg/dL (70-110)
[2018-01-18] MEDS: Ipratropium/Albuterol Sulfate 3 ML AMPUL.NEB INHALATION ×3 (07:25→19:32)
[2018-01-18] MEDS: Budesonide Respules 0.5 MG/2 ML AMPUL.NEB. INHALATION ×2 (07:25→19:32)
[2018-01-18] MEDS: Insulin Lispro 100 UNIT/ML INSULN.PEN 17 UNIT SC ×3 (08:38→17:53)
[2018-01-18] MEDS: Magnesium Oxide 400 MG Tablet PO ×3 (08:40→17:28)
[2018-01-18] MEDS: Aspirin 81 MG TAB.CHEW PO (08:40)
[2018-01-18 11:06] LABS: Bedside Glucose 236 mg/dL (70-110)
--- NOTE | 2018-01-18 12:30 | NURSING ---
Addendum entered by Ailin Arreguin 01/18/18 15:15: Dr Wilkerson in to assess sacral wound, no new orders. continue IV ATB's Original Note: Dr Cheatham assess wound to coccyx. Wet to dry dressing applied.
--- NOTE | 2018-01-18 12:40 | PCM.PN.SRG ---
Patient Problems: Active and Suspected Problems (Last Updated 01/15/18 @ 18:40 by Darnell Felix DO) Infected decubitus ulcer (Acute) Subjective: Patient states he does have occasional burning at the area otherwise he is doing well. - Physical Exam General: Alert, Oriented x3, Cooperative, No apparent distress Skin: Ulcer/ Wound - Sacral ulcer may be a small amount of slough in the wound base however base was also viable fat previously which makes a little more difficult to tell but his erythema is improved continue wet to dries Vital Signs Temp Pulse Resp BP Pulse Ox 98.0 F 83 18 145/91 H 97 01/17/18 15:49 01/18/18 07:25 01/18/18 07:25 01/18/18 05:00 01/18/18 07:25 Oxygen Flow Rate (L/min) 5 Oxygen Delivery Method Room Air Weight: 234 lb 8 oz Body Mass Index (BMI) 30.1 Finger Stick Blood Glucose 95 Intake and Output for Last 24 Hours 01/16/18 01/17/18 01/18/18 23:59 23:59 23:59 Intake Total 240 / 240 1080 / 1080 360 / 360 Output Total 3050 / 3050 7400 / 7400 1600 / 1600 Balance -2810 / -2810 -6320 / -6320 -1240 / -1240 POC Glucose 01/18/18 01/18/18 01/17/18 11:00 06:38 21:02 POC Glucose 236 H 151 H 255 H 01/17/18 16:42 POC Glucose 157 H Medical Necessity - Tobacco Use Smoking Status: Former smoker Tobacco Use: Non-smoker Assessment/Plan All Active Problems (Last Updated 01/15/18 @ 18:40 by Darnell Felix DO) Alcohol intoxication (Resolved) Acute respiratory failure (Acute) Aspiration pneumonia (Acute) Acute and chronic respiratory failure with hypoxia (Acute) Sepsis (Resolved) Healthcare associated bacteremia due to Staphylococcus aureus (Resolved) Infected decubitus ulcer (Acute) Infected decubitus ulcer (Acute) FUO (fever of unknown origin) (Acute) Demand ischemia (Resolved) Systolic CHF, acute (Acute) Acute respiratory failure with hypoxia and hypercarbia (Resolved) Multifocal community-acquired pneumonia (Resolved) Severe sepsis (Resolved) 67 y/o M s/p debridement of infected sacral decubitus ulcer 1. continue wound care- wet to dry be sure to use unfold 4 x 4 completely so it is only 1 layer thick so will be more effective at debriding some of the tissue TID with calmoseptine on superficial debrided areas. c/s wound care nurse 2. continue abx per ID, cx pending- GNR-E. coli Joann Arias M.D. Pager: [phone] [facility] [address] [place] [address], [facility], [address] [place] [address] Office: [phone]
[2018-01-18] MEDS: traMADol 50 MG Tablet PO ×2 (13:28→20:37)
--- NOTE | 2018-01-18 14:27 | NURSING ---
dr mai aware of recent wound cultures of sacrum. Meds adjusted.
--- NOTE | 2018-01-18 14:57 | PCM.PN.ID ---
Patient Problems: Active and Suspected Problems (Last Updated 01/15/18 @ 18:40 by Darnell Felix DO) Infected decubitus ulcer (Acute) Subjective: Feeling better, back in TCU, no fever, no n/v/d. - Physical Exam General: Alert, Cooperative, No apparent distress Lungs: Clear to auscultation, Normal air movement Cardiovascular: Regular rate, Regular Rhythm Abdomen: Soft, Non Tender, Non-Distended Skin: No rashes, Incision - bandaged Vital Signs Temp Pulse Resp BP Pulse Ox 98.0 F 99 16 145/91 H 97 01/17/18 15:49 01/18/18 13:25 01/18/18 13:11 01/18/18 05:00 01/18/18 07:25 Oxygen Flow Rate (L/min) 5 Oxygen Delivery Method Room Air Weight: 106.367 kg Body Mass Index (BMI) 30.1 Finger Stick Blood Glucose 95 Intake and Output for Last 24 Hours 01/16/18 01/17/18 01/18/18 23:59 23:59 23:59 Intake Total 240 / 240 1080 / 1080 840 / 840 Output Total 3050 / 3050 7400 / 7400 3000 / 3000 Balance -2810 / -2810 -6320 / -6320 -2160 / -2160 POC Glucose 01/18/18 01/18/18 01/17/18 11:00 06:38 21:02 POC Glucose 236 H 151 H 255 H 01/17/18 16:42 POC Glucose 157 H Medical Necessity - Tobacco Use Smoking Status: Former smoker Tobacco Use: Non-smoker Route of nutrition/ use of supplements: [] Nutritional Intake: [] IV Site: [] Lane Catheter: [] - Assessment/Plan Antibiotics: [] Assessment/Plan: [] Active and Suspected Problems (Last Reviewed 12/31/17 @ 08:29 by Salome Angulo, KELLY-C) Infected sacral decub ulcer - wound cx with mssa, e.faecalis, strep. Recent admit with aspiration pneumonia and sputum cx with mssa. H/o hives with PCN, but tolerated cefepime while at [facility]. Surg cx with ecoli. On iv vanc, ceftriaxone, and po flagyl. Feeling better. Will follow
[2018-01-18 16:55] LABS: Bedside Glucose 185 mg/dL (70-110)
[2018-01-18] MEDS: Pramipexole Di-HCl 0.25 MG Tablet PO (20:04)
[2018-01-18] MEDS: Amitriptyline 100 MG Tablet PO (20:04)
[2018-01-18] MEDS: Pravastatin 80 MG Tablet PO (20:04)
[2018-01-18] MEDS: Tamsulosin HCl 0.4 MG Capsule PO (20:04)
[2018-01-18 21:06] LABS: Bedside Glucose 231 mg/dL (70-110)
[2018-01-18 21:28] LABS: Vancomycin, Trough Level 12.7 ug/mL (5.0-15.0)
--- NOTE | 2018-01-18 22:34 | PCM.RX.CS ---
Consult Pharmacy has been consulted to manage selected antiobiotic: Vancomycin Type of Consult: Follow-up Suspected Infection: Skin/Soft tissue Prior Doses of Antibiotics Received/Current Regimen: Medications Vancomycin HCl 1,750 mg/ (Sodium Chloride) 535 mls @ 250 mls/hr IV Q12H BULL Last Admin: 01/18/18 21:22 Dose: 250 mls/hr Labs: Sodium 142 mmol/L (136-145) 01/17/18 05:30 Potassium 4.0 mmol/L (3.5-5.1) 01/17/18 05:30 Chloride 103 mmol/L (98-107) 01/17/18 05:30 Carbon Dioxide 26.0 mmol/L (21.0-32.0) 01/17/18 05:30 Anion Gap 13 (5-15) 01/17/18 05:30 BUN 6 mg/dL (7-18) L 01/17/18 05:30 Creatinine 0.37 mg/dL (0.70-1.30) L 01/17/18 05:30 Est GFR (MDRD) Af Amer 299 mL/min (>60) 01/17/18 05:30 Est GFR (MDRD) Non-Af 247 mL/min (>60) 01/17/18 05:30 BUN/Creatinine Ratio 16.1 RATIO (10-20) 01/17/18 05:30 Glucose 99 mg/dL (74-106) 01/17/18 05:30 Vancomycin Trough 12.7 ug/mL (5.0-15.0) 01/18/18 20:34 Microbiology: Microbiology 01/07/18 15:20 Wound - Other Gram Stain - Final 01/07/18 15:20 Wound - Other Wound Culture - Final Staphylococcus aureus Enterococcus faecalis Streptococcus pseudoporcinus 12/20/17 21:42 Urine, Clean Catch Urine Culture - Final Culture exhibits no growth. Weight used for dosin.4 kg Estimated Creatinine Clearance: 83 Goal Trough: 15-20 mcg/mL Pharmacy Plan for Drug Dosing: Received trough level of 12.7, but was drawn at a 15+ hour level, so will continue with current dose and redraw after 4 doses. Pharmacy Service will continue to monitor and adjust dosing as required. Follow-Up Labs: Trough Vancomycin Labs to be done on [date and time ordered]: 01/20/18 @0956
[2018-01-19] VITALS (7 sets, daily range): BP systolic 136–163; BP diastolic 64–77; PULSE 88–103; RESP 18–20; TEMP 36.9; O2SAT 96–98
[2018-01-19] MEDS: 0.9% NaCl PICC Flush IV ×4 (05:07→17:45)
[2018-01-19] MEDS: 0.9% NaCl IVPB Med Flush (250 mL) 15 ML IV (05:07)
[2018-01-19] MEDS: traMADol 50 MG Tablet PO ×3 (05:12→22:41)
[2018-01-19] MEDS: Metoprolol Tartrate 50 MG Tablet 150 MG PO ×3 (05:15→20:46)
[2018-01-19] MEDS: Furosemide 40 MG Tablet PO ×2 (05:15→14:56)
[2018-01-19] MEDS: metroNIDAZOLE 500 MG Tablet PO ×3 (05:15→20:46)
[2018-01-19] MEDS: Amantadine 100 MG Capsule PO (05:15)
[2018-01-19] MEDS: Menthol/Lanolin/Calamine/Znox 113 GM Tube 1 APPLIC TOPICAL (05:16)
[2018-01-19] MEDS: BACITRACIN 15 GM Tube 1 APPLIC TOPICAL (05:17)
[2018-01-19 06:25] LABS: Bedside Glucose 126 mg/dL (70-110)
[2018-01-19] MEDS: Budesonide Respules 0.5 MG/2 ML AMPUL.NEB. INHALATION ×2 (07:20→19:00)
[2018-01-19] MEDS: Ipratropium/Albuterol Sulfate 3 ML AMPUL.NEB INHALATION (07:20)
[2018-01-19] MEDS: Aspirin 81 MG TAB.CHEW PO (07:48)
[2018-01-19] MEDS: Magnesium Oxide 400 MG Tablet PO ×3 (07:49→17:46)
--- NOTE | 2018-01-19 08:07 | NURSING ---
Blood sugar is [address] Bonilla in room and informed him. Dr. Bonilla verbally said it was okay not to give 17 units of Novolog this morning as it was scheduled to be given.
--- NOTE | 2018-01-19 08:19 | PCM.TCUNOT ---
Subjective: Resident feeling better after sacral decubitus ulcer debridement. He has no complaints to me, but reported right shoulder pain, ultram not helping, increased swelling in right arm. Vitals/I&O's: Vital Signs Temp Pulse Resp BP Pulse Ox 97.7 F L 88 18 136/66 H 96 01/18/18 15:13 01/19/18 07:20 01/19/18 07:20 01/19/18 05:15 01/19/18 07:20 Oxygen Flow Rate (L/min) 5 Oxygen Delivery Method Room Air Weight: 110.903 kg Body Mass Index (BMI) 30.1 Finger Stick Blood Glucose 95 Intake and Output for Last 24 Hours 01/17/18 01/18/18 01/19/18 23:59 23:59 23:59 Intake Total 1080 / 1080 1080 / 1080 Output Total 7400 / 7400 5400 / 5400 2049 / 2049 Balance -6320 / -6320 -4320 / -4320 -2049 / -2049 Laboratory Results 01/18/18 11:00: POC Glucose 236 H 01/18/18 16:51: POC Glucose 185 H 01/18/18 20:34: Vancomycin Trough 12.7 01/18/18 20:58: POC Glucose 231 H 01/19/18 06:07: POC Glucose 126 H Past Medical History Past Medical History (Chronic Problems): Chronic Problems (Last Reviewed 01/15/18 @ 18:40 by Darnell Felix DO) Fall (Chronic) Traumatic brain injury (Chronic) Intraparenchymal hemorrhage of brain (Chronic) Subarachnoid hemorrhage (Chronic) Subdural hematoma (Chronic) Intraventricular hemorrhage (Chronic) Right scapula fracture (Chronic) Tobacco abuse (Chronic) Dysphagia (Chronic) Insomnia (Chronic) Vitamin D deficiency (Chronic) Depression (Chronic) GERD (gastroesophageal reflux disease) (Chronic) BPH (benign prostatic hyperplasia) (Chronic) Right hemiplegia (Chronic) Congestive heart failure (Chronic) Alcohol abuse (Chronic) Sleep apnea (Chronic) Diabetes mellitus (Chronic) Encounter for long-term current use of high risk medication (Chronic) Obstructive sleep apnea (Chronic) 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) S/P CABG x3 with right radial to LAD, SVG to RCA, and SVG to OM 2; stenting to LAD in February 2017; Presence of coronary angioplasty implant and graft (Chronic) Presence of aortocoronary bypass graft (Chronic) CABG X 3 2002 ?, Radial artery -LAD, SVG-RCA, SVG-OM2 Non-ST elevation myocardial infarction (NSTEMI), initial care episode (Chronic) 02/16/17 Ischemic cardiomyopathy (Chronic) Restless leg syndrome (Chronic) Hyperlipidemia (Chronic) Hypertensive emergency (Chronic) COPD (chronic obstructive pulmonary disease) (Chronic) Hypertension (Chronic) Morbid obesity (Chronic) CAD (coronary artery disease) (Chronic) Stented coronary artery (Chronic) [facility] w/[id number] LAD (grafts occluded X 3) 02/20/17 Former smoker (Chronic) quit February 2017 Diabetes mellitus type 2 in obese (Chronic) Hx of CABG (Chronic) CABG X3 rADIAL ARTERY-lad, svg-rca, svg-om2. 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) I25.810 S/P CABG x3 with right radial to LAD, SVG to RCA, and SVG to OM 2; stenting to LAD in February 2017; Non-ST elevation myocardial infarction (NSTEMI), initial care episode (Chronic) I21.4 02/16/17 Ischemic cardiomyopathy (Chronic) I25.5 FUO (fever of unknown origin) (Acute) Restless leg syndrome (Chronic) Hyperlipidemia (Chronic) E78.5 Hypertensive emergency (Chronic) I16.1 Demand ischemia (Resolved) I24.8 COPD (chronic obstructive pulmonary disease) (Chronic) J44.9 Hypertension (Chronic) I10 Morbid obesity (Chronic) E66.01 Systolic CHF, acute (Acute) I50.21 CAD (coronary artery disease) (Chronic) I25.10 Stented coronary artery (Chronic) [facility] w/[id number] LAD (grafts occluded X 3) 02/20/17 Former smoker (Chronic) Z87.891 quit February 2017 Diabetes mellitus type 2 in obese (Chronic) E11.69, E66.9 PEG (percutaneous endoscopic gastrostomy) adjustment/replacement/removal Z43.1 Nicotine dependence F17.200 Allergies atorvastatin Allergy (Verified 12/29/17 08:28) Hives cilostazol Allergy (Verified 12/29/17 08:28) Hives colestipol Allergy (Verified 12/29/17 08:28) Hives diltiazem Allergy (Verified 12/29/17 08:28) Hives gemfibrozil Allergy (Verified 12/29/17 08:28) Hives naproxen [From Naprosyn] Allergy (Verified 12/29/17 08:28) Hives niacin Allergy (Verified 12/29/17 08:28) Hives Penicillins Allergy (Verified 12/29/17 08:28) Hives pravastatin Allergy (Verified 12/29/17 08:28) Hives procaine [From Novocain] Allergy (Verified 12/29/17 08:28) Hives rosuvastatin Allergy (Verified 12/29/17 08:28) Hives simvastatin Allergy (Verified 12/29/17 08:28) Hives isosorbide Adverse Reaction (Severe, Verified 12/29/17 08:28) Unknown Home Medications: Ambulatory Orders Medication Instructions Recorded Acetaminophen [Tylenol] 650 mg PO Q6H PRN PRN 01/16/18 Albuterol Aerosols [Ventolin 2.5 mg INHALATION Q2H PRN PRN 01/16/18 Aerosols] Amantadine [Symmetrel] 100 mg PO DAILY capsule 01/16/18 Amitriptyline HCl 100 mg PO QHS 01/16/18 Amlodipine [Norvasc] 10 mg PO DAILY tablet 01/16/18 Argin/Glut/Cahmb/Collag/Mv-Min 1 packet PO BID 01/16/18 [[place] Packet] Aspirin [Aspirin, Baby] 81 mg PO DAILY@0800 tab.chew 01/16/18 Bacitracin Ointment 1 applicatio TOPICAL BID 01/16/18 Bisacodyl [Laxative Suppository] 10 mg RC PRN PRN 01/16/18 Budesonide Aerosol [Pulmicort 0.5 mg INHALATION BID 01/16/18 Respules] Cholecalciferol (VIT D3) [Vitamin 5,000 unit PO DAILY tablet 01/16/18 D3] Collagenase [Santyl] 1 applic TOPICAL DAILY 01/16/18 Duloxetine Hcl [Cymbalta] 60 mg PO DAILY capsule 01/16/18 Furosemide [Lasix] 40 mg PO BIDLX tablet 01/16/18 Insulin Glargine [Lantus SoloStar 25 units SQ BID 01/16/18 Pen] Insulin Lispro [Humalog Benjie 17 unit SQ TIDCM 01/16/18 Kwikpen] Ipratropium/Albuterol Sulfate 3 ml INHALATION Q6HWA.RT 01/16/18 [Duoneb] Lansoprazole [Prevacid] 30 mg PO BID 01/16/18 Magnesium 400 mg PO TIDCM 01/16/18 Magnesium Oxide [Mag-Ox 400] 400 mg PO TIDCM tablet 01/16/18 Menthol/Lanolin/Calamine/Znox 1 applic TOPICAL DAILY 01/16/18 [Calmoseptine Ointment] Metoprolol Tartrate 50 mg PO BID 01/16/18 Metronidazole [Flagyl] 500 mg PO BID 01/16/18 Mineral Oil/Petrolatum,White 1 applic TOPICAL BID PRN PRN 01/16/18 [Eucerin] Nitroglycerin [Nitrostat] 0.4 mg SUBLINGUAL Q5M PRN 01/16/18 Pivot 1.5 Luis 480 ml GT TID 01/16/18 Polyethylene Glycol 3350 [Miralax] 17 gm PO DAILY 01/16/18 Potassium Chl 25 Meq Eff (For 50 meq PO BID 01/16/18 Liquid) Potassium Cloride Effervescent 50 meq PO BIDCM tablet.eff 01/16/18 [Potassium Chl 25 Meq Eff (For Liquid)] Pramipexole Di-HCl [Mirapex] 0.125 mg PO QHS 01/16/18 Pravastatin [Pravachol] 80 mg PO QHS 01/16/18 Tamsulosin HCl [Flomax] 0.4 mg PO DAILY 01/16/18 Vancomycin/0.9 % Sod Chloride 1.75 gm IV Q12H 01/16/18 [Vanco 1.75 G/250 ml-0.9% NaCl] Zolpidem Tartrate [Ambien] 5 mg PO QHS PRN PRN 01/16/18 traMADol [Ultram] 50 mg PO TID PRN 01/16/18 Surgical History: Surgical History (Last Reviewed 01/15/18 @ 18:40 by Darnell Felix DO) Presence of coronary angioplasty implant and graft (Chronic) Z95.5 Presence of aortocoronary bypass graft (Chronic) Z95.1 CABG X 3 2002 ?, Radial artery -LAD, SVG-RCA, SVG-OM2 Hx of CABG (Chronic) CABG X3 rADIAL ARTERY-lad, svg-rca, svg-om2. MULTIPLE CORONARY STENTS Surgical History: angioplasty, coronary bypass surgery - x 3., - - PEG tube. Psychiatric History: Depression Lives: Spouse/ Significant Other Smoking Status: Former smoker Tobacco Use: Non-smoker Alcohol: Heavy Drugs: None - *Family History Maternal Family History: Family History (Last Reviewed 01/15/18 @ 18:40 by Darnell Felix DO) Brother Heart disease Father Heart disease History Items: No pertinent history, - - Alzheimer Paternal Family History: Family History (Last Reviewed 01/15/18 @ 18:40 by Darnell Felix DO) Brother Heart disease Father Heart disease History Items: No pertinent history Review of Systems Constitutional: Denies: Chills, Fever, Weight Change HEENT: Denies: Head Aches, Sinus Congestion, Sinus Drainage Cardiovascular: Denies: Chest Pain, Palpitations Respiratory: Denies: Cough, Shortness of breath at rest, Sputum production Gastrointestinal: Denies: Abdominal Pain, Nausea, Vomiting Genitourinary: Denies: Dysuria Musculoskeletal: Denies: Joint Pain, Joint Tenderness Skin: Denies: Rash, Wounds Neurological: Denies: Numbness, Tingling, Focal weakness Psychiatric: Denies: Anxiety, Depression, Homicidal Ideations, Suicidal Ideations Hematologic/ Lymphatic: Denies: Easy Bruising, Easy Bleeding Patient Problems: Active and Suspected Problems (Last Updated 01/15/18 @ 18:40 by Darnell Felix DO) Infected decubitus ulcer (Acute) - Physical Exam General: Alert, Oriented x3, Cooperative HEENT: Atraumatic, PERRLA, EOMI, Normocephalic Neck: Supple, No JVD, Negative Carotid Bruits Lungs: Clear to auscultation, Normal air movement Cardiovascular: Regular rate, No murmurs Abdomen: Bowel Sounds Present, Soft, Non Tender Extremities: No edema, Capillary Refill Less than 3 Seconds Skin: No rashes, No breakdown Musculoskeletal: No Tenderness to Palpation of Joints or Extremities Neurological: Cranial nerves II-XII grossly intact Psych/Mental Status: Normal Affect, Appropriate Vital Signs Temp Pulse Resp BP Pulse Ox 97.7 F L 88 18 136/66 H 96 01/18/18 15:13 01/19/18 07:20 01/19/18 07:20 01/19/18 05:15 01/19/18 07:20 Oxygen Flow Rate (L/min) 5 Oxygen Delivery Method Room Air Weight: 110.903 kg Body Mass Index (BMI) 30.1 Finger Stick Blood Glucose 95 Intake and Output for Last 24 Hours 01/17/18 01/18/18 01/19/18 23:59 23:59 23:59 Intake Total 1080 / 1080 1080 / 1080 Output Total 7400 / 7400 5400 / 5400 2049 Balance -6320 / -6320 -4320 / -4320 -2049 / -2049 Laboratory Tests Past 24 Hrs 01/18/18 20:34 Vancomycin Trough 12.7 POC Glucose 01/19/18 01/18/18 01/18/18 06:07 20:58 16:51 POC Glucose 126 H 231 H 185 H 01/18/18 11:00 POC Glucose 236 H Assessment/Plan All Active Problems (Last Updated 01/15/18 @ 18:40 by Darnell Felix DO) Alcohol intoxication (Resolved) Acute respiratory failure (Acute) Aspiration pneumonia (Acute) Acute and chronic respiratory failure with hypoxia (Acute) Sepsis (Resolved) Healthcare associated bacteremia due to Staphylococcus aureus (Resolved) Infected decubitus ulcer (Acute) Infected decubitus ulcer (Acute) FUO (fever of unknown origin) (Acute) Demand ischemia (Resolved) Systolic CHF, acute (Acute) Acute respiratory failure with hypoxia and hypercarbia (Resolved) Multifocal community-acquired pneumonia (Resolved) Severe sepsis (Resolved) 67 year old male with below past medical history significant for recent fall, head trauma, brain bleed, stroke, hospitalized for sepsis, shortness of breath secondary to s. aureus pneumonia, aspiration pneumonia, admitted to TCU with debility, here for rehabilitation, strengthening, prior to disposition determination. Debility - PT/OT. Dysphagia - ST, Eating well now, Discontinue Pivot. Pain - Tylenol 1000MG Q8H PRN mild pain, Tramadol 50MG TID PRN moderate pain. Bowel - Miralax 17GM daily, Dulcolax 10MG daily PRN. Pneumonia vaccination - Administer Prevnar 13 and/or Pneumovax 23 as necessary. DVT prophylaxis - Hold due to recent brain bleed. COPD - Pulmicort 0.5MG BID, Duoneb 3ML Q6H PRN. Traumatic brain injury - Amantadine 100MG daily. Restless Leg syndrome - Taper off Elavil, Mirapex 0.25MG QHS. Hypertension - Metoprolol 150MG TID. Coronary Artery Disease - Metoprolol 150MG TID, Aspirin 81MG daily. Edema - Lasix 40MG BID. Diabetes Mellitus II - Lantus 25 units twice daily, Humalog 17 units TID. GERD - Lansoprazole 30MG daily Infected sacral decubitus - Appreciate Dr. Hugo pelletier, Appreciate Dr. Wilkerson antibiotic management, Ceftriaxone 2GM IV Q24H, Vancomycin 1.75GM IV Q12H, Flagyl 500MG TID. Hypomagnesemia - Magnesium Oxide 40MG TID. Skin irritation - Eucerin BID bilateral legs, feet. Hypokalemia - KCL 50MEQ BID. Hyperlipidemia - Pravastatin 80MG QHS. BPH - Tamsulosin 0.4MG QHS. Insomnia - Zolpidem 5MG QHS PRN. Right shoulder pain - X-ray right shoulder. Right upper extremity swelling - Doppler ultrasound of bilateral upper extremities to evaluate for DVT.
[2018-01-19 11:11] LABS: Bedside Glucose 287 mg/dL (70-110)
[2018-01-19] MEDS: Insulin Lispro 100 UNIT/ML INSULN.PEN 17 UNIT SC (11:33)
--- NOTE | 2018-01-19 11:57 | NURSING ---
Was sitting in chair. Assisted back into bed using SaraLift. Painful. Will medicate.
--- NOTE | 2018-01-19 13:00 | RAD_ITS ---
RAD/Shoulder min 2 Views IMPRESSION: There is a mildly displaced scapular fracture inferior to the glenoid which could be acute. Electronically Signed: Carlyn Padilla MD at 13:37 EDT , Service support ,
--- NOTE | 2018-01-19 14:30 | NURSING ---
Per [facility] who came up and performed Ultrasound on pt, Mr. Vargas is negative for DVT.
--- NOTE | 2018-01-19 15:14 | PCM.PN.SRG ---
Patient Problems: Active and Suspected Problems (Last Updated 01/15/18 @ 18:40 by Darnell Felix DO) Infected decubitus ulcer (Acute) Subjective: Patient still states that his sacral area and feels better and has no complaints currently - Physical Exam General: Alert, Oriented x3, Cooperative, No apparent distress Skin: Ulcer/ Wound - Sacral ulcer with some slough at the base was able to debride some with scissors, wet-to-dry replaced Vital Signs Temp Pulse Resp BP Pulse Ox 97.7 F L 88 18 136/66 H 96 01/18/18 15:13 01/19/18 07:20 01/19/18 07:20 01/19/18 05:15 01/19/18 07:20 Oxygen Flow Rate (L/min) 5 Oxygen Delivery Method Room Air Weight: 244 lb 8 oz Body Mass Index (BMI) 30.1 Finger Stick Blood Glucose 95 Intake and Output for Last 24 Hours 01/17/18 01/18/18 01/19/18 23:59 23:59 23:59 Intake Total 1080 / 1080 1080 / 1080 720 / 720 Output Total 7400 / 7400 5400 / 5400 3250 / 3250 Balance -6320 / -6320 -4320 / -4320 -2530 / -2530 Laboratory Tests Past 24 Hrs 01/18/18 20:34 Vancomycin Trough 12.7 POC Glucose 01/19/18 01/19/18 01/18/18 10:59 06:07 20:58 POC Glucose 287 H 126 H 231 H 01/18/18 16:51 POC Glucose 185 H Medical Necessity - Tobacco Use Smoking Status: Former smoker Tobacco Use: Non-smoker Assessment/Plan All Active Problems (Last Updated 01/15/18 @ 18:40 by Darnell Felix DO) Alcohol intoxication (Resolved) Acute respiratory failure (Acute) Aspiration pneumonia (Acute) Acute and chronic respiratory failure with hypoxia (Acute) Sepsis (Resolved) Healthcare associated bacteremia due to Staphylococcus aureus (Resolved) Infected decubitus ulcer (Acute) Infected decubitus ulcer (Acute) FUO (fever of unknown origin) (Acute) Demand ischemia (Resolved) Systolic CHF, acute (Acute) Acute respiratory failure with hypoxia and hypercarbia (Resolved) Multifocal community-acquired pneumonia (Resolved) Severe sepsis (Resolved) 67 y/o M s/p debridement of infected sacral decubitus ulcer 1. continue wound care- wet to dry be sure to use unfold 4 x 4 completely so it is only 1 layer thick so will be more effective at debriding some of the tissue TID with calmoseptine on superficial debrided areas. c/s wound care nurse. Able to debride some of the base slough at bedside likely will need additional debridement at bedside not think it would require a trip to the OR. Also asked Dr. Juarez to take a look to get his opinion. 2. continue abx per ID, cx - GNR-E. coli Joann Arias M.D. Pager: [phone] [facility] [address] [place] [address], [facility], [address] [place] [address] Office: [phone]
[2018-01-19 17:11] LABS: Bedside Glucose 99 mg/dL (70-110)
--- NOTE | 2018-01-19 18:23 | NURSING ---
Addendum entered by Natalee Pickard 01/19/18 18:26: Orders from Dr Luis to hold all insulin at this time. Original Note: Resident blood sugar 99. Low appetite this evening and eats only 25% of supper. Dr Luis made aware for insulin coverage.
--- NOTE | 2018-01-19 18:30 | NURSING ---
Dr Luis aware of Rt shoulder xray results. no new orders received.
[2018-01-19] MEDS: Pravastatin 80 MG Tablet PO (20:47)
[2018-01-19] MEDS: Tamsulosin HCl 0.4 MG Capsule PO (20:47)
[2018-01-19] MEDS: Amitriptyline 25 MG Tablet 50 MG PO (20:48)
[2018-01-19] MEDS: Pramipexole Di-HCl 0.25 MG Tablet PO (20:49)
[2018-01-19 21:15] LABS: Bedside Glucose 195 mg/dL (70-110)
[2018-01-20 05:10] VITALS: BP 146/65; PULSE 91
[2018-01-20] MEDS: Metoprolol Tartrate 50 MG Tablet 150 MG PO ×3 (05:10→20:56)
[2018-01-20] MEDS: Amantadine 100 MG Capsule PO (05:10)
[2018-01-20] MEDS: metroNIDAZOLE 500 MG Tablet PO ×3 (05:11→20:54)
[2018-01-20] MEDS: Furosemide 40 MG Tablet PO ×2 (05:11→14:45)
[2018-01-20] MEDS: Menthol/Lanolin/Calamine/Znox 113 GM Tube 1 APPLIC TOPICAL (05:15)
[2018-01-20] MEDS: 0.9% NaCl IVPB Med Flush (250 mL) 15 ML IV (05:19)
[2018-01-20] MEDS: 0.9% NaCl PICC Flush IV (06:04)
[2018-01-20 06:21] LABS: Bedside Glucose 149 mg/dL (70-110)
[2018-01-20 06:21] LABS: Vancomycin, Trough Level 15.8 ug/mL (5.0-15.0)
[2018-01-20 07:12] VITALS: PULSE 81; RESP 16; O2SAT 97
[2018-01-20] MEDS: Budesonide Respules 0.5 MG/2 ML AMPUL.NEB. INHALATION ×2 (07:12→18:55)
--- NOTE | 2018-01-20 08:14 | PCM.RX.CS ---
Consult Pharmacy has been consulted to manage selected antiobiotic: Vancomycin Type of Consult: Follow-up Suspected Infection: Skin/Soft tissue Prior Doses of Antibiotics Received/Current Regimen: Currently on 1750mg iv q12h Labs: Sodium 142 mmol/L (136-145) 01/17/18 05:30 Potassium 4.0 mmol/L (3.5-5.1) 01/17/18 05:30 Chloride 103 mmol/L (98-107) 01/17/18 05:30 Carbon Dioxide 26.0 mmol/L (21.0-32.0) 01/17/18 05:30 Anion Gap 13 (5-15) 01/17/18 05:30 BUN 6 mg/dL (7-18) L 01/17/18 05:30 Creatinine 0.37 mg/dL (0.70-1.30) L 01/17/18 05:30 Est GFR (MDRD) Af Amer 299 mL/min (>60) 01/17/18 05:30 Est GFR (MDRD) Non-Af 247 mL/min (>60) 01/17/18 05:30 BUN/Creatinine Ratio 16.1 RATIO (10-20) 01/17/18 05:30 Glucose 99 mg/dL (74-106) 01/17/18 05:30 Vancomycin Trough 15.8 ug/mL (5.0-15.0) H 01/20/18 05:15 Microbiology: Microbiology 01/07/18 15:20 Wound - Other Gram Stain - Final 01/07/18 15:20 Wound - Other Wound Culture - Final Staphylococcus aureus Enterococcus faecalis Streptococcus pseudoporcinus 12/20/17 21:42 Urine, Clean Catch Urine Culture - Final Culture exhibits no growth. Weight used for dosin.9 kg Estimated Creatinine Clearance: ~83 ml/min Goal Trough: 15-20 mcg/mL Pharmacy Plan for Drug Dosing: Vancomycin trough today (01/20/18) 15.8 and in goal range of 15-20 mcg/ml. Renal status remains same. Will continue same regimen and get another vancomycin trough level in 4 days (01/24/18 @0530). Pharmacy Service will continue to monitor and adjust dosing as required. Follow-Up Labs: Trough Vancomycin - 01.24.18 @0530
[2018-01-20] MEDS: Insulin Lispro 100 UNIT/ML INSULN.PEN 7 UNIT SC ×3 (08:41→18:32)
[2018-01-20] MEDS: Magnesium Oxide 400 MG Tablet PO ×3 (08:42→18:32)
[2018-01-20] MEDS: Aspirin 81 MG TAB.CHEW PO (08:42)
[2018-01-20] MEDS: traMADol 50 MG Tablet PO ×2 (08:53→20:52)
--- NOTE | 2018-01-20 09:36 | CASEMGMT ---
Plan of care meeting held. Resident present as well as resident spouse. No discharge date set at this time. Resident to continue with further care and treatment on the Transitional Care Unit. Resident has an insurance update due on 01/21/18 and aware that continued stay approval is not guaranteed at this time. Resident plans to discharge to home with spouse versus extended care facility ([facility] choice). Support given. Will continue to follow. Nora JERONIMO, ENVIRONMENTAL STUDIES DEPARTMENT CHAIR
[2018-01-20 11:50] LABS: Bedside Glucose 206 mg/dL (70-110)
--- NOTE | 2018-01-20 12:03 | NURSING ---
Right arm/shoulder xray reviewed by Dr. Luis. Injury is not new and patient can continue to bear weight as tolerated to the right arm.
[2018-01-20 14:42] VITALS: PULSE 108
--- NOTE | 2018-01-20 14:49 | NURSING ---
dressing to coccyx changed by Renae Guerrero RN wound nurse.
[2018-01-20 15:30] VITALS: BP 153/78; PULSE 103; RESP 18; TEMP 36.4; O2SAT 96
--- NOTE | 2018-01-20 15:45 | NURSING ---
wound photo: sacrum
--- NOTE | 2018-01-20 16:42 | NURSING ---
diet changed to CHO control, cardiac. Per STUNT PERFORMER now mechanical soft diet.
[2018-01-20 17:06] LABS: Bedside Glucose 177 mg/dL (70-110)
--- NOTE | 2018-01-20 17:09 | NURSING ---
Pt having a lot of breakthrough pain with ultram. Dr. Luis updated, NO for oxyir 5mg PO q4 hours PRN
--- NOTE | 2018-01-20 18:31 | PCM.CONS.GEN ---
Reason for Consult Date of Consultation: 01/20/18 Reason for Consultation: Sacral pressure sore. REFERRING PHYSICIAN: Dr. Arias. COMPUTER REPAIRER: Dr. Juarez. History of Present Illness: The patient is a 67 year old M admitted to's TCU for rehabilitation following a recent fall with intracranial bleeds and right-sided paraplegia. During this time, he developed a sacral pressure sore. He is complaints of pain in his sacral area. Dr. Arias took the patient to surgery on 01/15/18 where a sacral debridement was done. She reports there was bleeding in the subcutaneous tissue after removing some nonviable tissue. Wet to dry dressings were started. Preoperative cultures showed Enterococcus faecalis, Staphylococcus aureus, and Streptococcus pseudoporcinus. Operative culture showed E.coli. He is currently on Vancomycin, Ceftriaxone, and Flagyl. Over the next couple of days, some of the tissue in the wound did not look healthy with some evidence of fat necrosis. Bone is palpable. With the polymicrobial nature of the infection, there is concern about extension of the infection down to the bone. I was asked to evaluate this patient for surgical options for further treatment. Past Medical History Past Medical History (Chronic Problems): Chronic Problems (Last Reviewed 01/15/18 @ 18:40 by Darnell Felix DO) Hemiplegia affecting right dominant side (Chronic) 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, stage 4 (Chronic) Fall (Chronic) Traumatic brain injury (Chronic) Intraparenchymal hemorrhage of brain (Chronic) Subarachnoid hemorrhage (Chronic) Subdural hematoma (Chronic) Intraventricular hemorrhage (Chronic) Right scapula fracture (Chronic) Tobacco abuse (Chronic) Dysphagia (Chronic) Insomnia (Chronic) Vitamin D deficiency (Chronic) Depression (Chronic) GERD (gastroesophageal reflux disease) (Chronic) BPH (benign prostatic hyperplasia) (Chronic) Right hemiplegia (Chronic) Congestive heart failure (Chronic) Alcohol abuse (Chronic) Sleep apnea (Chronic) Diabetes mellitus (Chronic) Encounter for long-term current use of high risk medication (Chronic) Obstructive sleep apnea (Chronic) 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) S/P CABG x3 with right radial to LAD, SVG to RCA, and SVG to OM 2; stenting to LAD in February 2017; Presence of coronary angioplasty implant and graft (Chronic) Presence of aortocoronary bypass graft (Chronic) CABG X 3 2002 ?, Radial artery -LAD, SVG-RCA, SVG-OM2 Non-ST elevation myocardial infarction (NSTEMI), initial care episode (Chronic) 02/16/17 Ischemic cardiomyopathy (Chronic) Restless leg syndrome (Chronic) Hyperlipidemia (Chronic) Hypertensive emergency (Chronic) COPD (chronic obstructive pulmonary disease) (Chronic) Hypertension (Chronic) Morbid obesity (Chronic) CAD (coronary artery disease) (Chronic) Stented coronary artery (Chronic) [facility] w/[id number] LAD (grafts occluded X 3) 02/20/17 Former smoker (Chronic) quit February 2017 Diabetes mellitus type 2 in obese (Chronic) Hx of CABG (Chronic) CABG X3 rADIAL ARTERY-lad, svg-rca, svg-om2. 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) I25.810 S/P CABG x3 with right radial to LAD, SVG to RCA, and SVG to OM 2; stenting to LAD in February 2017; Non-ST elevation myocardial infarction (NSTEMI), initial care episode (Chronic) I21.4 02/16/17 Ischemic cardiomyopathy (Chronic) I25.5 FUO (fever of unknown origin) (Acute) Restless leg syndrome (Chronic) Hyperlipidemia (Chronic) E78.5 Hypertensive emergency (Chronic) I16.1 Demand ischemia (Resolved) I24.8 COPD (chronic obstructive pulmonary disease) (Chronic) J44.9 Hypertension (Chronic) I10 Morbid obesity (Chronic) E66.01 Systolic CHF, acute (Acute) I50.21 CAD (coronary artery disease) (Chronic) I25.10 Stented coronary artery (Chronic) [facility] w/[id number]-[id number]-[id number] LAD (grafts occluded X 3) 02/20/17 Former smoker (Chronic) Z87.891 quit February 2017 Diabetes mellitus type 2 in obese (Chronic) E11.69, E66.9 PEG (percutaneous endoscopic gastrostomy) adjustment/replacement/removal Z43.1 Nicotine dependence F17.200 Allergies atorvastatin Allergy (Verified 12/29/17 08:28) Hives cilostazol Allergy (Verified 12/29/17 08:28) Hives colestipol Allergy (Verified 12/29/17 08:28) Hives diltiazem Allergy (Verified 12/29/17 08:28) Hives gemfibrozil Allergy (Verified 12/29/17 08:28) Hives naproxen [From Naprosyn] Allergy (Verified 12/29/17 08:28) Hives niacin Allergy (Verified 12/29/17 08:28) Hives Penicillins Allergy (Verified 12/29/17 08:28) Hives pravastatin Allergy (Verified 12/29/17 08:28) Hives procaine [From Novocain] Allergy (Verified 12/29/17 08:28) Hives rosuvastatin Allergy (Verified 12/29/17 08:28) Hives simvastatin Allergy (Verified 12/29/17 08:28) Hives isosorbide Adverse Reaction (Severe, Verified 12/29/17 08:28) Unknown Current Medications Acetaminophen (Tylenol) 1,000 mg PO Q8H PRN PRN PRN Reason: MILD PAIN (1-3/10) Albuterol/Ipratropium (Duoneb) 3 ml INHALATION Q6HWA.RT PRN PRN Reason: SHORTNESS OF BREATH Amantadine HCl (Symmetrel) 100 mg PO DAILY [facility] Last Admin: 01/20/18 05:10 Dose: 100 mg Amitriptyline HCl (Elavil) 50 mg PO HS BULL Stop: 01/22/18 22:01 Last Admin: 01/19/18 20:48 Dose: 50 mg Amitriptyline HCl (Elavil) 25 mg PO QHS BULL Stop: 01/26/18 22:01 Aspirin (Aspirin, Baby) 81 mg PO DAILY@0800 BULL Last Admin: 01/20/18 08:42 Dose: 81 mg Bisacodyl (Dulcolax) 10 mg RECTAL DAILY PRN PRN Reason: Constipation Last Admin: 12/20/17 19:52 Dose: 10 mg Budesonide (Pulmicort Aerosol) 0.5 mg INHALATION BID.RT BULL Last Admin: 01/20/18 07:12 Dose: 0.5 mg Calamine/Phenol (Calmoseptine Ointment) 1 applic TOPICAL DAILY BULL PRN Reason: Protocol Last Admin: 01/20/18 05:15 Dose: 1 applicatio Dextrose (D50w Syringe) 0 gm IV X1 PRN; Protocol PRN Reason: Hypoglycemia Furosemide (Lasix) 40 mg PO BIDLX [facility] Last Admin: 01/20/18 14:45 Dose: 40 mg Glucagon () 1 mg IM .X1 PRN PRN Reason: Hypoglycemia Heparin Sodium (Beef Lung) (Heparin 500 Unit/5 Ml (100/Ml)) 500 unit IV UD PRN PRN Reason: HEPARIN FLUSH Last Admin: 01/06/18 06:49 Dose: 500 unit Sodium Chloride () 250 mls @ 15 mls/hr IV .[id number] PRN PRN Reason: SALINE FLUSH Last Admin: 01/20/18 05:19 Dose: 15 mls/hr Ceftriaxone Sodium 2 gm/ (Dextrose) 50 mls @ 100 mls/hr IV Q24 BULL Last Admin: 01/20/18 08:54 Dose: 100 mls/hr Insulin Glargine (Lantus (Bkc)) 10 units SC BID [facility] Last Admin: 01/20/18 06:00 Dose: 10 units Insulin Human Lispro (Humalog Kwikpen (Bkc)) 7 unit SC TIDCM [facility] Last Admin: 01/20/18 11:52 Dose: 7 u Lansoprazole (Prevacid) 30 mg PO DAILY [facility] Last Admin: 01/20/18 05:12 Dose: 30 mg Magnesium Oxide (Mag-Ox 400) 400 mg PO TIDCM [facility] Last Admin: 01/20/18 11:52 Dose: 400 mg Metoprolol Tartrate (Lopressor (Beta Devante)) 150 mg PO TID [facility] Last Admin: 01/20/18 14:42 Dose: 150 mg Metronidazole (Flagyl) 500 mg PO TID [facility] Last Admin: 01/20/18 14:45 Dose: 500 mg Multi-Ingredient Cream (Eucerin) 1 applic TOPICAL 0600,2200 [facility] PRN Reason: Protocol Last Admin: 01/20/18 05:08 Dose: 1 applicatio Nitroglycerin (Nitrostat) 0.4 mg SUBLINGUAL PRN PRN PRN Reason: CARDIAC/CHEST PAIN Nutritional Formula ([place] - [place] Flavor) 1 packet PO BIDCM [facility] Last Admin: 01/20/18 08:42 Dose: 1 packet Oxycodone HCl (Oxyir) 5 mg PO Q4H PRN PRN PRN Reason: SEVERE PAIN (6-10/10) Polyethylene Glycol (Miralax) 17 gm PO DAILY [facility] Last Admin: 01/20/18 05:11 Dose: Not Given Potassium Bicarb/Potassium Chloride (Potassium Chl 25 Meq Eff (For Liquid)) [facility] Last Admin: 01/20/18 08:41 Dose: 50 meq Pramipexole Dihydrochloride (Mirapex) 0.25 mg PO QHS [facility] Last Admin: 01/19/18 20:49 Dose: 0.25 mg Pravastatin Sodium (Pravachol) 80 mg PO QHS [facility] Last Admin: 01/19/18 20:47 Dose: 80 mg Sodium Chloride () 10 - 20 ml IV UD PRN PRN Reason: PICC FLUSH Last Admin: 01/20/18 06:04 Dose: 20 ml Tamsulosin HCl (Flomax) 0.4 mg PO QHS [facility] Last Admin: 01/19/18 20:47 Dose: 0.4 mg Tramadol HCl (Ultram) 50 mg PO TID PRN PRN Reason: MODERATE PAIN (4-5/10) Last Admin: 01/20/18 08:53 Dose: 50 mg Zolpidem Tartrate (Ambien (Generic)) 5 mg PO QHS PRN PRN PRN Reason: INSOMNIA Vancomycin Home Medications: Ambulatory Orders Medication Instructions Recorded Acetaminophen [Tylenol] 650 mg PO Q6H PRN PRN 01/16/18 Amantadine [Symmetrel] 100 mg PO DAILY capsule 01/16/18 Budesonide Aerosol [Pulmicort 0.5 mg INHALATION BID 01/16/18 Respules] Furosemide [Lasix] 40 mg PO BIDLX tablet 01/16/18 Insulin Glargine [Lantus SoloStar 15 units SQ BID 01/16/18 Pen] Insulin Lispro [Humalog Benjie 7 unit SQ TIDCM 01/16/18 Kwikpen] Ipratropium/Albuterol Sulfate 3 ml INHALATION Q2H PRN PRN 01/16/18 [Duoneb] Metoprolol Tartrate 150 mg PO TID 01/16/18 Nitroglycerin [Nitrostat] 0.4 mg SUBLINGUAL Q5M PRN 01/16/18 Polyethylene Glycol 3350 [Miralax] 17 gm PO DAILY 01/16/18 Potassium Cloride Effervescent 50 meq PO BIDCM tablet.eff 01/16/18 [Potassium Chl 25 Meq Eff (For Liquid)] Pravastatin [Pravachol] 80 mg PO QHS 01/16/18 Tamsulosin HCl [Flomax] 0.4 mg PO QHS 01/16/18 Zolpidem Tartrate [Ambien] 5 mg PO QHS PRN PRN 01/16/18 traMADol [Ultram] 50 mg PO TID PRN PRN 01/16/18 Argin/Glut/Cahmb/Collag/Mv-Min 1 each PO BIDCM 01/22/18 [[place] Packet] Magnesium Oxide [Mag-Ox 400] 400 mg PO TIDCM 01/22/18 Pantoprazole Sodium [Protonix] 40 mg PO DAILY 01/22/18 Piperacil/Tazobactam [Zosyn] 3.375 gm IV Q8 01/22/18 Pramipexole Di-HCl [Mirapex] 0.25 mg PO QHS 01/22/18 Surgical History: Surgical History (Last Reviewed 01/15/18 @ 18:40 by Darnell Felix DO) Presence of coronary angioplasty implant and graft (Chronic) Z95.5 Presence of aortocoronary bypass graft (Chronic) Z95.1 CABG X 3 2002 ?, Radial artery -LAD, SVG-RCA, SVG-OM2 Hx of CABG (Chronic) CABG X3 rADIAL ARTERY-lad, svg-rca, svg-om2. MULTIPLE CORONARY STENTS Surgical History: angioplasty, coronary bypass surgery - x 3., - - PEG tube. Psychiatric History: Depression Lives: Spouse/ Significant Other Smoking Status: Former smoker Tobacco Use: Non-smoker Alcohol: Heavy Drugs: None - *Family History Maternal Family History: Family History (Last Reviewed 01/15/18 @ 18:40 by Darnell Felix DO) Brother Heart disease Father Heart disease History Items: No pertinent history, - - Alzheimer Paternal Family History: Family History (Last Reviewed 01/15/18 @ 18:40 by Darnell Felix DO) Brother Heart disease Father Heart disease History Items: No pertinent history Review of Systems Comment: Constitutional: Denies: Anorexia, Chills, Fever. Eyes: Denies: Blurred vision, Double vision. HEENT: Denies: Head Aches, Sinus Congestion, Sinus Drainage. Cardiovascular: Denies: Chest Pain, Palpitations. Respiratory: Denies: Cough, Shortness of breath at rest, Sputum production. Gastrointestinal: Denies: Abdominal Pain, Nausea, Vomiting. Genitourinary: Denies: Dysuria. Musculoskeletal: Denies: Joint Pain, Joint Tenderness. Skin: Reports: - - Sacral pressure sore. Neurological: Reports: - - Right-sided hemiparesis since traumatic brain injury, - - Dysphasia status post traumatic brain injury. Hr is now able to eat a modified diet. Psychiatric: Denies: Anxiety, Depression. Endocrine: Denies: Change in Body Habitus. Hematologic/ Lymphatic: Denies: Easy Bruising, Easy Bleeding, Hx of blood clot. - Physical Exam General - Alert and Oriented HEENT - PERRL. EOMI. Throat is clear. Neck - Supple and nontender. No cervical adenopathy. Lungs - Clear to auscultation. Heart - Regular rate and rhythm. Abdomen - Soft and nondistended. PEG tube in place. Extremities - Mild edema in lower extremities. No axillary adenopathy. Radial pulses are palpable. No calf tenderness. Neuro - Flaccid on the right side. Muscle strength 5 out of 5 in the left upper extremity. Diminished DTRs in the right patellar reflex Psych - Normal mood and affect. Wound - Large sacral pressure sore. Measures 7 x 8 x 2.5 cm. Some fat necrosis present. Bone is palpable. Some fibrous nonviable tissue present at the base over the bone. Clinical concern for osteomyelitis. Some periwound redness from moisture. Neurological: - - Psych/Mental Status: Normal Affect, Appropriate Vital Signs Temp Pulse Resp BP Pulse Ox 97.5 F L 103 H 18 153/78 H 96 01/20/18 15:30 01/20/18 15:30 01/20/18 15:30 01/20/18 15:30 01/20/18 15:30 Oxygen Flow Rate (L/min) 5 Oxygen Delivery Method Room Air Weight: 244 lb 8 oz Body Mass Index (BMI) 30.1 Finger Stick Blood Glucose 95 Intake and Output for Last 24 Hours 01/18/18 01/19/18 01/20/18 23:59 23:59 23:59 Intake Total 1080 / 1080 960 / 960 360 / 360 Output Total 5400 / 5400 5950 / 5950 3200 / 3200 Balance -4320 / -4320 -4990 / -4990 -2840 / -2840 Laboratory Tests Past 24 Hrs 01/20/18 05:15 Vancomycin Trough 15.8 H POC Glucose 01/20/18 01/20/18 01/20/18 16:49 11:48 06:00 POC Glucose 177 H 206 H 149 H 01/19/18 21:05 POC Glucose 195 H Assessment/Plan All Active Problems (Last Updated 01/15/18 @ 18:40 by Darnell Felix, DO) Alcohol intoxication (Resolved) Acute respiratory failure (Acute) Aspiration pneumonia (Acute) Acute and chronic respiratory failure with hypoxia (Acute) Sepsis (Resolved) Healthcare associated bacteremia due to Staphylococcus aureus (Resolved) Infected decubitus ulcer (Acute) Infected decubitus ulcer (Acute) FUO (fever of unknown origin) (Acute) Demand ischemia (Resolved) Systolic CHF, acute (Acute) Acute respiratory failure with hypoxia and hypercarbia (Resolved) Multifocal community-acquired pneumonia (Resolved) Severe sepsis (Resolved) 1. Sacral pressure sore, Stage IV. 2. Traumatic brain injury. 3. Right sided hemiplegia. 4. Osteomyelitis. Continue IV Vancomycin and Ceftriaxone and PO Flagyl. Cultures thus far show Enterococcus faecalis, Staphylococcus aureus, Streptococcus pseudoporcinus, and E. coli. The patient would benefit from the use of the VAC for wound care. However there is evidence of further fat necrosis and nonviable tissue with possible bone involvement. So it was recommended to the patient to proceed with further operative intervention with excision of this sacral pressure sore with partial ostectomy for osteomyelitis. Can then proceed with the VAC postop. Will need a preop CT Pelvis to look at the bone. At the time of the surgery, soft tissue and bone will be sent to Pathology and to Microbiology to rule out carcinoma and to evaluate for osteomyelitis. Depending on the culture results, will need long term acute care registered nurse IV antibiotics. Anticipate increased metabolic demands from the infected sacral pressure sore. Will check a Prealbumin and encourage nutritional supplementation with protein to help the healing process. If stool contamination becomes an issue postop, then would need to be evaluated for a diverting colostomy. Patient was informed of the risks and complications of the procedure including alternatives to surgery. These were discussed with the patient personally. Patient voices understanding and wishes to proceed. Discussed with his . She was in agreement and wishes to proceed. After surgery, the patient may benefit from a short stay at an ECF. He will have complex wound care with the VAC combined with fci antibiotics. Code Visit Inpatient E&M: 21961 Init Hosp L2 - ICD-10 - L89.154, M46.28, S06.9x9A, G81.91
[2018-01-20 18:55] VITALS: PULSE 96; RESP 20
[2018-01-20] MEDS: Pramipexole Di-HCl 0.25 MG Tablet PO (20:54)
[2018-01-20] MEDS: Pravastatin 80 MG Tablet PO (20:54)
[2018-01-20] MEDS: Tamsulosin HCl 0.4 MG Capsule PO (20:54)
[2018-01-20] MEDS: Amitriptyline 25 MG Tablet 50 MG PO (20:54)
[2018-01-20 20:56] VITALS: BP 112/63; PULSE 99
[2018-01-20 21:05] LABS: Bedside Glucose 280 mg/dL (70-110)
[2018-01-21] VITALS (7 sets, daily range): BP systolic 118–163; BP diastolic 43–87; PULSE 84–102; RESP 16–18; TEMP 36.7; O2SAT 93–98
[2018-01-21] MEDS: Amantadine 100 MG Capsule PO (05:19)
[2018-01-21] MEDS: Furosemide 40 MG Tablet PO ×2 (05:19→12:23)
[2018-01-21] MEDS: Metoprolol Tartrate 50 MG Tablet 150 MG PO ×3 (05:19→20:19)
[2018-01-21] MEDS: metroNIDAZOLE 500 MG Tablet PO (05:19)
[2018-01-21] MEDS: Menthol/Lanolin/Calamine/Znox 113 GM Tube 1 APPLIC TOPICAL (05:20)
[2018-01-21] MEDS: oxyCODONE 5 MG Tablet PO ×2 (05:25→20:19)
[2018-01-21 05:35] LABS: Prealbumin 15.4 mg/dL (20.0-40.0)
[2018-01-21] MEDS: Budesonide Respules 0.5 MG/2 ML AMPUL.NEB. INHALATION ×2 (06:47→19:37)
[2018-01-21 08:30] LABS: Bedside Glucose 199 mg/dL (70-110)
--- NOTE | 2018-01-21 09:25 | MDS.RN ---
Pain interview for TAMICA 01/23/18 completed.
[2018-01-21] MEDS: Insulin Lispro 100 UNIT/ML INSULN.PEN 7 UNIT SC ×3 (09:35→17:08)
[2018-01-21] MEDS: Magnesium Oxide 400 MG Tablet PO ×3 (09:36→17:12)
[2018-01-21] MEDS: Aspirin 81 MG TAB.CHEW PO (09:37)
--- NOTE | 2018-01-21 09:45 | NURSING ---
to ct via bed at is time
--- NOTE | 2018-01-21 10:05 | PCM.PN.ID ---
Patient Problems: Active and Suspected Problems (Last Updated 01/15/18 @ 18:40 by Darnell Felix DO) Pressure injury of sacral region, stage 4 (Acute) Infected decubitus ulcer (Acute) Subjective: Pt gone to CT scan. - Physical Exam Vital Signs Temp Pulse Resp BP Pulse Ox 97.5 F L 84 18 136/74 H 93 01/20/18 15:30 01/21/18 06:47 01/21/18 06:47 01/21/18 05:19 01/21/18 06:47 Oxygen Flow Rate (L/min) 5 Oxygen Delivery Method Room Air Weight: 110.903 kg Body Mass Index (BMI) 30.1 Finger Stick Blood Glucose 95 Intake and Output for Last 24 Hours 01/19/18 01/20/18 01/21/18 23:59 23:59 23:59 Intake Total 960 / 960 1140 / 1140 Output Total 5950 / 5950 6200 / 6200 850 / 850 Balance -4990 / -4990 -5060 / -5060 -850 / -850 Laboratory Tests Past 24 Hrs 01/21/18 05:04 Prealbumin 15.4 L POC Glucose 01/21/18 01/20/18 01/20/18 08:16 20:51 16:49 POC Glucose 199 H 280 H 177 H 01/20/18 11:48 POC Glucose 206 H Medical Necessity - Tobacco Use Smoking Status: Former smoker Tobacco Use: Non-smoker Route of nutrition/ use of supplements: [] Nutritional Intake: [] IV Site: [] Lane Catheter: [] - Assessment/Plan Antibiotics: [] Assessment/Plan: [] Active and Suspected Problems (Last Reviewed 12/31/17 @ 08:29 by Salome Anguol, SALES DEVELOPMENT MANAGER-C) Infected sacral decub ulcer - wound cx with mssa, e.faecalis, strep. Recent admit with aspiration pneumonia and sputum cx with mssa. H/o hives with PCN, but tolerated zosyn and cefepime while at [facility]. Surg cx with ecoli. CT scan pending, bone palpable per Dr. Juarez. With suspected osteo, will consolidate abx to zosyn to cover the organisms seen. Further debridement planned. Will follow, d/w nursing.
--- NOTE | 2018-01-21 10:37 | CASEMGMT ---
Insurance Clinical information faxed. Pending continued stay approval at this time. Auth#[id number] Nora JERONIMO, INSURANCE DEFENSE ATTORNEY
[2018-01-21 11:21] LABS: Bedside Glucose 289 mg/dL (70-110)
[2018-01-21] MEDS: Piperacil/Tazobactam 3.375 GM/50 ML ML IV ×2 (14:03→21:22)
[2018-01-21] MEDS: 0.9% NaCl PICC Flush IV ×2 (14:03→21:22)
[2018-01-21] MEDS: 0.9% NaCl IVPB Med Flush (250 mL) 15 ML IV (14:15)
--- NOTE | 2018-01-21 16:27 | CASEMGMT ---
Brief interview for mental status (BIMS) and resident mood interview (PHQ-9) completed on this day. BIMS score 01/20. PHQ-9 score 08/04
[2018-01-21 16:56] LABS: Bedside Glucose 190 mg/dL (70-110)
[2018-01-21] MEDS: Ipratropium/Albuterol Sulfate 3 ML AMPUL.NEB INHALATION (19:37)
[2018-01-21] MEDS: Tamsulosin HCl 0.4 MG Capsule PO (20:18)
[2018-01-21] MEDS: Pramipexole Di-HCl 0.25 MG Tablet PO (20:19)
[2018-01-21] MEDS: Amitriptyline 25 MG Tablet 50 MG PO (20:19)
[2018-01-21] MEDS: Pravastatin 80 MG Tablet PO (21:22)
[2018-01-21 21:26] LABS: Bedside Glucose 279 mg/dL (70-110)
[2018-01-21] MEDS: traMADol 50 MG Tablet PO (23:29)
[2018-01-22 04:50] VITALS: PULSE 99
[2018-01-22] MEDS: Metoprolol Tartrate 50 MG Tablet 150 MG PO (04:50)
[2018-01-22 05:26] VITALS: O2SAT 96
--- NOTE | 2018-01-22 06:13 | NURSING ---
Report provided to Teresa in surgery.
--- NOTE | 2018-01-22 13:16 | CASEMGMT ---
Insurance VM left for Ana Maria at [facility] explaining pt was d/c from TCU on the date and admitted to the acute hospital. Pt plans to return when medically able and new precert will be requested. Auth # [id number] KANDACE Zheng
--- NOTE | 2018-01-25 09:40 | PCM.DC ---
You will use the following diet at home:: No restrictions, Regular Your food should be the consistency of: Regular Your liquids should be the consistency of: Regular/Thin Discharge Activity: Return to Normal Activity, May Shower, Use Walker Call your doctor if you observe: Fever of 101 or Higher, Inability to urinate, Inability to have a bowel movement, Shortness of breath, Chest pain, Uncontrolled pain Allergies/Adverse Reactions: Allergies atorvastatin Allergy (Verified 01/21/18 15:52) Hives cilostazol Allergy (Verified 01/21/18 15:52) Hives colestipol Allergy (Verified 01/21/18 15:52) Hives diltiazem Allergy (Verified 01/21/18 15:52) Hives gemfibrozil Allergy (Verified 01/21/18 15:52) Hives naproxen [From Naprosyn] Allergy (Verified 01/21/18 15:52) Hives niacin Allergy (Verified 01/21/18 15:52) Hives Penicillins Allergy (Verified 01/21/18 15:52) Hives pravastatin Allergy (Verified 01/21/18 15:52) Hives procaine [From Novocain] Allergy (Verified 01/21/18 15:52) Hives rosuvastatin Allergy (Verified 01/21/18 15:52) Hives simvastatin Allergy (Verified 01/21/18 15:52) Hives isosorbide Adverse Reaction (Severe, Verified 01/21/18 15:52) Unknown Medications to take at Discharge Acetaminophen [Tylenol] 650 mg PO Q6H PRN PRN 01/16/18 Amantadine [Symmetrel] 100 mg PO DAILY capsule 01/16/18 Budesonide Aerosol [Pulmicort Respules] 0.5 mg INHALATION BID 01/16/18 Furosemide [Lasix] 40 mg PO BIDLX tablet 01/16/18 Insulin Glargine [Lantus SoloStar Pen] 15 units SQ BID 01/16/18 Insulin Lispro [Humalog Benjie Kwikpen] 7 unit SQ TIDCM 01/16/18 Ipratropium/Albuterol Sulfate [Duoneb] 3 ml INHALATION Q2H PRN PRN 01/16/18 Metoprolol Tartrate 150 mg PO TID 01/16/18 Nitroglycerin [Nitrostat] 0.4 mg SUBLINGUAL Q5M PRN 01/16/18 Polyethylene Glycol 3350 [Miralax] 17 gm PO DAILY 01/16/18 Potassium Cloride Effervescent [Potassium Chl 25 Meq Eff (For Liquid)] 50 meq PO BIDCM tablet.eff 01/16/18 Pravastatin [Pravachol] 80 mg PO QHS 01/16/18 Tamsulosin HCl [Flomax] 0.4 mg PO QHS 01/16/18 Zolpidem Tartrate [Ambien] 5 mg PO QHS PRN PRN 01/16/18 traMADol [Ultram] 50 mg PO TID PRN PRN 01/16/18 Argin/Glut/Cahmb/Collag/Mv-Min [[place] Packet] 1 each PO BIDCM 01/22/18 Magnesium Oxide [Mag-Ox 400] 400 mg PO TIDCM 01/22/18 Pantoprazole Sodium [Protonix] 40 mg PO DAILY 01/22/18 Piperacil/Tazobactam [Zosyn] 3.375 gm IV Q8 01/22/18 Pramipexole Di-HCl [Mirapex] 0.25 mg PO QHS 01/22/18 Primary Care Physician: Julissa Lamb MD [Primary Care Provider] - Please follow up with your Primary Care Physician in: 1 week. Test Results: Test results from this visit will be discussed in further detail at your follow-up appointment, if applicable. Please Follow Up With: Reid Mcmahon for Dr. Griffin Swain When: 2 weeks Proposed Discharge Date: 01/22/18
--- NOTE | 2018-01-25 09:42 | PCM.DC.SUM ---
Discharge Date and Diagnosis Date of Admission: 12/19/17 Date of Discharge: 01/22/18 - Primary Discharge Diagnosis Sacral pressure ulcer. - Secondary Discharge Diagnosis Chronic Problems (Last Reviewed 01/15/18 @ 18:40 by Darnell Felix DO) Hemiplegia affecting right dominant side (Chronic) 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, stage 4 (Chronic) Fall (Chronic) Traumatic brain injury (Chronic) Intraparenchymal hemorrhage of brain (Chronic) Subarachnoid hemorrhage (Chronic) Subdural hematoma (Chronic) Intraventricular hemorrhage (Chronic) Right scapula fracture (Chronic) Tobacco abuse (Chronic) Dysphagia (Chronic) Insomnia (Chronic) Vitamin D deficiency (Chronic) Depression (Chronic) GERD (gastroesophageal reflux disease) (Chronic) BPH (benign prostatic hyperplasia) (Chronic) Right hemiplegia (Chronic) Congestive heart failure (Chronic) Alcohol abuse (Chronic) Sleep apnea (Chronic) Diabetes mellitus (Chronic) Encounter for long-term current use of high risk medication (Chronic) Obstructive sleep apnea (Chronic) 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) S/P CABG x3 with right radial to LAD, SVG to RCA, and SVG to OM 2; stenting to LAD in February 2017; Presence of coronary angioplasty implant and graft (Chronic) Presence of aortocoronary bypass graft (Chronic) CABG X 3 2001 ?, Radial artery -LAD, SVG-RCA, SVG-OM2 Non-ST elevation myocardial infarction (NSTEMI), initial care episode (Chronic) 02/16/17 Ischemic cardiomyopathy (Chronic) Restless leg syndrome (Chronic) Hyperlipidemia (Chronic) Hypertensive emergency (Chronic) COPD (chronic obstructive pulmonary disease) (Chronic) Hypertension (Chronic) Morbid obesity (Chronic) CAD (coronary artery disease) (Chronic) Stented coronary artery (Chronic) [facility] w/[id number] LAD (grafts occluded X 3) 02/20/17 Former smoker (Chronic) quit February 2017 Diabetes mellitus type 2 in obese (Chronic) Hx of CABG (Chronic) CABG X3 rADIAL ARTERY-lad, svg-rca, svg-om2. MULTIPLE CORONARY STENTS Hospital Course and Treatment Consultations 12/19/17 Consult: Onc/Wound/musculoskeletal physiotherapist Routine Comment: Reason for Consult:: COCCYX Operations: None Procedures: None Summary of Care Provided: The patient is a 67 year old Male with below past medical history significant for recent fall, head trauma, brain bleed, stroke, hospitalized for sepsis, shortness of breath secondary to s. aureus pneumonia, aspiration pneumonia, admitted to TCU with debility, here for rehabilitation, strengthening, prior to disposition determination. Discharge to [facility] for surgical debridement of sacral pressure ulcer per Dr. Juarez. Discharge Diet: No Restrictions Discharge Activity: Return to Normal Activity, May Shower, Use Walker Call your doctor if you observe: Fever of 101 or Higher, Inability to urinate, Inability to have a bowel movement, Shortness of breath, Chest pain, Uncontrolled pain Home Medications: Medications to take at Discharge Acetaminophen [Tylenol] 650 mg PO Q6H PRN PRN 01/16/18 Amantadine [Symmetrel] 100 mg PO DAILY capsule 01/16/18 Budesonide Aerosol [Pulmicort Respules] 0.5 mg INHALATION BID 01/16/18 Furosemide [Lasix] 40 mg PO BIDLX tablet 01/16/18 Insulin Glargine [Lantus SoloStar Pen] 15 units SQ BID 01/16/18 Insulin Lispro [Humalog Benjie Kwikpen] 7 unit SQ TIDCM 01/16/18 Ipratropium/Albuterol Sulfate [Duoneb] 3 ml INHALATION Q2H PRN PRN 01/16/18 Metoprolol Tartrate 150 mg PO TID 01/16/18 Nitroglycerin [Nitrostat] 0.4 mg SUBLINGUAL Q5M PRN 01/16/18 Polyethylene Glycol 3350 [Miralax] 17 gm PO DAILY 01/16/18 Potassium Cloride Effervescent [Potassium Chl 25 Meq Eff (For Liquid)] 50 meq PO BIDCM tablet.eff 01/16/18 Pravastatin [Pravachol] 80 mg PO QHS 01/16/18 Tamsulosin HCl [Flomax] 0.4 mg PO QHS 01/16/18 Zolpidem Tartrate [Ambien] 5 mg PO QHS PRN PRN 01/16/18 traMADol [Ultram] 50 mg PO TID PRN PRN 01/16/18 Argin/Glut/Cahmb/Collag/Mv-Min [[place] Packet] 1 each PO BIDCM 01/22/18 Magnesium Oxide [Mag-Ox 400] 400 mg PO TIDCM 01/22/18 Pantoprazole Sodium [Protonix] 40 mg PO DAILY 01/22/18 Piperacil/Tazobactam [Zosyn] 3.375 gm IV Q8 01/22/18 Pramipexole Di-HCl [Mirapex] 0.25 mg PO QHS 01/22/18 Primary Care Physician: Julissa Lamb MD [Primary Care Provider] - Please follow up with your Primary Care Physician in: 1 week. Please Follow Up With: Reid Mcmahon for Dr. Griffin Swain When: 2 weeks Disposition: Acute care Hospital Minutes spent on discharge:: 30 Patient Condition:: Stable Medical Necessity - Tobacco Use Smoking Status: Former smoker Tobacco Use: Non-smoker Meaningful Use Info Meaningful Use Diagnoses (Choose all that apply): None applicable
== END 2018-01-22 06:15 | disposition short-term general hospital (02) | DRG 949 ==
PROVIDERS: Internal Medicine Infectious Disease; Nurse Practitioner Family; Surgery; Admitting Provider Family Medicine Geriatric Medicine; Family Provider Family Medicine; PCP Family Medicine; Visit Provider Family Medicine Geriatric Medicine
DX: S06.6X9D Traumatic subarachnoid hemorrhage with loss of consciousness of unspecified duration, subsequent encounter (principal); J15.211 Pneumonia due to Methicillin susceptible Staphylococcus aureus; L89.154 Pressure ulcer of sacral region, stage 4; I50.23 Acute on chronic systolic (congestive) heart failure; M46.28 Osteomyelitis of vertebra, sacral and sacrococcygeal region; G81.91 Hemiplegia, unspecified affecting right dominant side; W19.XXXD Unspecified fall, subsequent encounter; G25.81 Restless legs syndrome; I25.10 Atherosclerotic heart disease of native coronary artery without angina pectoris; E55.9 Vitamin D deficiency, unspecified; K21.9 Gastro-esophageal reflux disease without esophagitis; N40.0 Benign prostatic hyperplasia without lower urinary tract symptoms; E78.5 Hyperlipidemia, unspecified; E87.6 Hypokalemia; Y95 Nosocomial condition; J44.9 Chronic obstructive pulmonary disease, unspecified; F32.9 Major depressive disorder, single episode, unspecified; S06.5X9D Traumatic subdural hemorrhage with loss of consciousness of unspecified duration, subsequent encounter; I11.0 Hypertensive heart disease with heart failure; G47.33 Obstructive sleep apnea (adult) (pediatric); S42.101D Fracture of unspecified part of scapula, right shoulder, subsequent encounter for fracture with routine healing; Z95.1 Presence of aortocoronary bypass graft; I25.2 Old myocardial infarction; Z87.891 Personal history of nicotine dependence; B95.61 Methicillin susceptible Staphylococcus aureus infection as the cause of diseases classified elsewhere; B95.2 Enterococcus as the cause of diseases classified elsewhere; B95.4 Other streptococcus as the cause of diseases classified elsewhere; B96.20 Unspecified Escherichia coli [E. coli] as the cause of diseases classified elsewhere; E11.69 Type 2 diabetes mellitus with other specified complication
CPT/HCPCS: 36415; 36569; 73030; 74230; 80048; 80202; 81001; 82962; 84134; 85025; 87070; 87077; 87086; 87186; 87205; 92507; 92526; 92610; 93970; 94640; 94667; 94668; 97032; 97110; 97112; 97140; 97162; 97165; 97166; 97530; 97535; 97802; 97803; J7030; J7040; J7050; A4216; J0696

== ENCOUNTER 2018-01-15 18:22 | Inpatient (IN) | payer MEDICARE, MEDICAID, SELFPAY ==
[2017-02-20 12:18] VITALS: BMI 46.4
[2018-01-15] VITALS (10 sets, daily range): BP systolic 106–141; BP diastolic 56–66; PULSE 80–99; RESP 16–20; TEMP 36.6–37.4; O2SAT 95–99; BMI 30.1
--- NOTE | 2018-01-15 18:34 | PCM.HP.STD ---
Problem List (1) Infected decubitus ulcer Status: Acute History of Present Illness Date of Admission: 01/15/18 Chief Complaint: infected sacral ulcer The patient is a 67 year old M who said very complicated and long hospitalizations. Patient had a traumatic brain injury of fall and was hospitalized there. Patient was taken to the transitional care unit on 04 December. Patient then subsequently developed acute hypoxic respiratory failure and was admitted to [facility] on December 13. Patient was hospitalized until the and completed 7 days of IV antibiotics and then transitioned over to oral Levaquin. Patient was seen in consultation by pulmonology during that hospitalization. Patient went back to the transitional care unit which is where he has been since then. During his stay in the transitional care unit the patient developed a sacral decubitus ulcer with purulent drainage. Appear to be worsening and infectious disease and general surgery were consulted. Infectious disease but the patient on metronidazole and vancomycin. Culture from January 07 grew out staph aureus, enterococcus and Streptococcus pseudoporcinus. Patient was seen by Dr. Abreu who is taking the patient for further debridement of the wound tonight. Patient currently denying any complaints. Denies any fever or chills. Otherwise feels well. Currently sitting in the PACU awaiting surgery. Past Medical History Past Medical History (Chronic Problems): Chronic Problems (Last Reviewed 12/31/17 @ 08:29 by Salome Angulo NP-C) Right hemiplegia (Chronic) Congestive heart failure (Chronic) Alcohol abuse (Chronic) Sleep apnea (Chronic) Diabetes mellitus (Chronic) Fall (Chronic) Traumatic brain injury (Chronic) Intraparenchymal hemorrhage of brain (Chronic) Subarachnoid hemorrhage (Chronic) Subdural hematoma (Chronic) Intraventricular hemorrhage (Chronic) Right scapula fracture (Chronic) Tobacco abuse (Chronic) Dysphagia (Chronic) Insomnia (Chronic) Vitamin D deficiency (Chronic) Depression (Chronic) GERD (gastroesophageal reflux disease) (Chronic) BPH (benign prostatic hyperplasia) (Chronic) Encounter for long-term current use of high risk medication (Chronic) Obstructive sleep apnea (Chronic) 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) S/P CABG x3 with right radial to LAD, SVG to RCA, and SVG to OM 2; stenting to LAD in February 2017; Presence of coronary angioplasty implant and graft (Chronic) Presence of aortocoronary bypass graft (Chronic) CABG X 3 2001 ?, Radial artery -LAD, SVG-RCA, SVG-OM2 Non-ST elevation myocardial infarction (NSTEMI), initial care episode (Chronic) 02/16/17 Ischemic cardiomyopathy (Chronic) Restless leg syndrome (Chronic) Hyperlipidemia (Chronic) Hypertensive emergency (Chronic) COPD (chronic obstructive pulmonary disease) (Chronic) Hypertension (Chronic) Morbid obesity (Chronic) CAD (coronary artery disease) (Chronic) Stented coronary artery (Chronic) [facility] w/[id number] LAD (grafts occluded X 3) 02/20/17 Former smoker (Chronic) quit February 2017 Diabetes mellitus type 2 in obese (Chronic) Hx of CABG (Chronic) CABG X3 rADIAL ARTERY-lad, svg-rca, svg-om2. 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) I25.810 S/P CABG x3 with right radial to LAD, SVG to RCA, and SVG to OM 2; stenting to LAD in February 2017; Non-ST elevation myocardial infarction (NSTEMI), initial care episode (Chronic) I21.4 02/16/17 Ischemic cardiomyopathy (Chronic) I25.5 FUO (fever of unknown origin) (Acute) Restless leg syndrome (Chronic) Hyperlipidemia (Chronic) E78.5 Hypertensive emergency (Chronic) I16.1 Demand ischemia (Resolved) I24.8 COPD (chronic obstructive pulmonary disease) (Chronic) J44.9 Hypertension (Chronic) I10 Morbid obesity (Chronic) E66.01 Systolic CHF, acute (Acute) I50.21 CAD (coronary artery disease) (Chronic) I25.10 Stented coronary artery (Chronic) [facility] w/[id number] LAD (grafts occluded X 3) 02/20/17 Former smoker (Chronic) Z87.891 quit February 2017 Diabetes mellitus type 2 in obese (Chronic) E11.69, E66.9 PEG (percutaneous endoscopic gastrostomy) adjustment/replacement/removal Z43.1 Nicotine dependence F17.200 Allergies atorvastatin Allergy (Verified 12/29/17 08:28) Hives cilostazol Allergy (Verified 12/29/17 08:28) Hives colestipol Allergy (Verified 12/29/17 08:28) Hives diltiazem Allergy (Verified 12/29/17 08:28) Hives gemfibrozil Allergy (Verified 12/29/17 08:28) Hives naproxen [From Naprosyn] Allergy (Verified 12/29/17 08:28) Hives niacin Allergy (Verified 12/29/17 08:28) Hives Penicillins Allergy (Verified 12/29/17 08:28) Hives pravastatin Allergy (Verified 12/29/17 08:28) Hives procaine [From Novocain] Allergy (Verified 12/29/17 08:28) Hives rosuvastatin Allergy (Verified 12/29/17 08:28) Hives simvastatin Allergy (Verified 12/29/17 08:28) Hives isosorbide Adverse Reaction (Severe, Verified 12/29/17 08:28) Unknown Home Medications: Ambulatory Orders Medication Instructions Recorded Amitriptyline HCl 100 mg GT QHS 02/16/17 Cholecalciferol (Vitamin D3) 5,000 unit GT DAILY 02/16/17 [Vitamin D3] Duloxetine HCl 60 mg GT DAILY 02/16/17 Lactase 1 tab GT TIDCM 02/16/17 Lansoprazole [Prevacid] 30 mg GT BIDCM 02/16/17 Nitroglycerin 0.4 mg SL PRN PRN 02/16/17 Ropinirole HCl [Requip] 0.5 mg GT QHS 02/16/17 Tamsulosin HCl [Flomax] 0.4 mg GT QHS 02/16/17 traMADol [Ultram] 50 mg GT TID PRN 02/16/17 lisinopril 20 mg tablet 20 mg GT QDAY 05/20/17 Albuterol Inhaler [Ventolin Hfa] 1 - 2 puff INHALATION 4X/DAY PRN 12/04/17 PRN Amantadine Liquid 100 mg GT DAILY 12/04/17 Aspirin [Aspirin, Baby] 81 mg GT DAILY@0800 12/04/17 Budesonide Aerosol [Pulmicort 0.5 mg INHALATION BID 12/04/17 Respules] Magnesium Oxide [Mag-Ox 400] 400 mg GT TIDCM 12/04/17 Pravastatin [Pravachol] 80 mg PO QHS 12/04/17 ranitidine 150 mg capsule 150 mg GT QHS 12/04/17 Acetaminophen Liquid [Tylenol 650 mg GT Q4H PRN PRN udc 12/19/17 Liquid] Albuterol Aerosols [Ventolin 2.5 mg INHALATION Q2H PRN PRN 12/19/17 Aerosols] vial.neb. Amlodipine [Norvasc] 10 mg GT DAILY 12/19/17 Bisacodyl [Dulcolax] 5 mg PO DAILY PRN PRN tab 12/19/17 Furosemide [Lasix] 40 mg GT BIDLX 12/19/17 Insulin Glargine [Lantus SoloStar 35 units SC DAILY 12/19/17 Pen] Insulin Glargine [Lantus SoloStar 50 units SC QHS 12/19/17 Pen] Insulin Lispro [Humalog KwikPen] 10 unit SC Q6 12/19/17 Ipratropium/Albuterol Sulfate 3 ml INHALATION Q6H.RT 12/19/17 [Duoneb] Levofloxacin [Levaquin] 750 mg PO DAILY 12/19/17 Mag Hydrox/Al Hydrox/Simeth 30 ml GT Q6H PRN PRN udc 12/19/17 [Mylanta II] Magnesium Hydroxide [Milk Of 30 ml GT DAILY PRN udc 12/19/17 Magnesia] Metoprolol Tartrate [Lopressor 150 mg GT TID 12/19/17 (beta stepan)] Mineral Oil/Petrolatum,White 1 applic TOPICAL BID 12/19/17 [Eucerin] Potassium Cloride Effervescent 50 meq GT BIDCM 12/19/17 [Potassium Chl 25 Meq Eff (For Liquid)] Pramipexole Di-HCl [Mirapex] 0.25 mg GT QHS 12/19/17 Zolpidem Tartrate [Ambien] 5 mg GT QHS PRN PRN tab 12/19/17 Surgical History: Surgical History (Last Reviewed 01/15/18 @ 18:40 by Darnell Felix DO) Presence of coronary angioplasty implant and graft (Chronic) Z95.5 Presence of aortocoronary bypass graft (Chronic) Z95.1 CABG X 3 2001 ?, Radial artery -LAD, SVG-RCA, SVG-OM2 Hx of CABG (Chronic) CABG X3 rADIAL ARTERY-lad, svg-rca, svg-om2. MULTIPLE CORONARY STENTS Surgical History: angioplasty, coronary bypass surgery - x 3., - - PEG tube. Psychiatric History: Depression Lives: - - Has been in the hospital or transitional care unit since November Smoking Status: Former smoker Tobacco Use: Non-smoker Alcohol: None Drugs: None - *Family History Maternal Family History: Family History (Last Reviewed 01/15/18 @ 18:40 by Darnell Felix DO) Brother Heart disease Father Heart disease History Items: No pertinent history, - - Alzheimer Paternal Family History: Family History (Last Reviewed 01/15/18 @ 18:40 by Darnell Felix DO) Brother Heart disease Father Heart disease History Items: No pertinent history Review of Systems Constitutional: Denies: Anorexia, Chills, Fever Eyes: Denies: Blurred vision, Double vision HEENT: Denies: Head Aches, Sinus Congestion, Sinus Drainage Cardiovascular: Denies: Chest Pain, Palpitations Respiratory: Denies: Cough, Shortness of breath at rest, Sputum production Gastrointestinal: Denies: Abdominal Pain, Nausea, Vomiting Genitourinary: Denies: Dysuria Musculoskeletal: Denies: Joint Pain, Joint Tenderness Skin: Reports: - - Sacral decubitus ulcer Neurological: Reports: - - Right-sided hemiparesis since traumatic brain injury, - - Dysphasia status post traumatic brain injury it is now able to eat a modified diet Psychiatric: Denies: Anxiety, Depression Endocrine: Denies: Change in Body Habitus Hematologic/ Lymphatic: Denies: Easy Bruising, Easy Bleeding, Hx of blood clot Comment: All review of systems are negative except as mentioned in the history of present illness and the other review of systems. VTE Information - Inpt Only VTE Present on Admission: No VTE Mechan Device Prophylaxis: SCD's VTE Pharm Prophylaxis ordered?: No Reason prophylaxis not ordered:: Medical Contraindication Patient Problems: Active and Suspected Problems (Last Reviewed 12/31/17 @ 08:29 by IRAIS ReederC) Sepsis (Acute) Healthcare associated bacteremia due to Staphylococcus aureus (Acute) Infected decubitus ulcer (Acute) Infected decubitus ulcer (Acute) - Physical Exam General: Alert, Cooperative, No apparent distress, Well developed, Well nourished HEENT: Atraumatic, Normocephalic Oral: Moist Mucosa, No Gingival or Mucosal Lesions/ Ulcerations Neck: No Nodes, Thyroid Normal Size and Texture Lungs: Clear to auscultation, Normal air movement, No rhonchi, No wheeze Cardiovascular: Regular rate, Regular Rhythm, Normal S1, Normal S2, No murmurs Abdomen: Bowel Sounds Present, Soft, Non Tender, Non-Distended, No Hepato-splenomegaly, - - PEG tube in left upper quadrant Extremities: No edema, No Calf Tenderness Skin: No rashes Musculoskeletal: No Tenderness to Palpation of Joints or Extremities, No Muscle Wasting Neurological: - - Flaccid on the right side. Muscle strength 5 out of 5 in the left upper extremity. Diminished DTRs in the right patellar reflex Psych/Mental Status: Normal Affect, Appropriate Vital Signs Temp Pulse Resp BP Pulse Ox 36.6 C 85 20 H 130/64 H 99 01/15/18 17:10 01/15/18 17:10 01/15/18 17:10 01/15/18 17:10 01/15/18 17:10 Oxygen Delivery Method Room Air Weight: 106.37 kg Body Mass Index (BMI) 30.1 Finger Stick Blood Glucose 95 Assessment/Plan All Active Problems (Last Reviewed 12/31/17 @ 08:29 by Salome Angulo, KELLY-C) Sepsis (Acute) Healthcare associated bacteremia due to Staphylococcus aureus (Acute) Infected decubitus ulcer (Acute) Infected decubitus ulcer (Acute) Alcohol intoxication (Resolved) Acute respiratory failure (Acute) Aspiration pneumonia (Acute) Acute and chronic respiratory failure with hypoxia (Acute) FUO (fever of unknown origin) (Acute) Demand ischemia (Resolved) Systolic CHF, acute (Acute) Acute respiratory failure with hypoxia and hypercarbia (Resolved) Multifocal community-acquired pneumonia (Resolved) Severe sepsis (Resolved) 1. Infected sacral decubitus ulcer Polymicrobial with MSSA, Enterococcus faecalis, and a strep species Continue with the antibiotics already prescribed by infectious disease with metronidazole and vancomycin Patient to have further I&D this evening Further wound care management by surgery and wound care Turn and reposition every 2 hours 2. Dysphagia Continue with modified diet with pur?ed and nectar thickened liquids Speech therapy 3. Traumatic brain injury Patient had subsequent intracranial hemorrhage, subarachnoid hemorrhage, subdural hemorrhage and intraventricular hemorrhage Patient with right-sided hemiplegia Physical and occupational therapy 4. Coronary artery disease Patient has Q waves in the inferior leads but that is unchanged Continue with aspirin and metoprolol Asymptomatic at this time 5. DVT prophylaxis with SCDs. Would continue to hold off on chemical prophylaxis given patient's traumatic brain injury and extensive hemorrhage that he had. Code Visit Inpatient E&M: 47320 Init Hosp L3
--- NOTE | 2018-01-15 18:40 | HP.PCM_ITS ---
Problem List (1) Infected decubitus ulcer Status: Acute History of Present Illness Date of Admission: 01/15/18 Chief Complaint: infected sacral ulcer The patient is a 67 year old M who said very complicated and long hospitalizations. Patient had a traumatic brain injury of fall and was hospitalized there. Patient was taken to the transitional care unit on 04 December. Patient then subsequently developed acute hypoxic respiratory failure and was admitted to [facility] on December 13. Patient was hospitalized until the and completed 7 days of IV antibiotics and then transitioned over to oral Levaquin. Patient was seen in consultation by pulmonology during that hospitalization. Patient went back to the transitional care unit which is where he has been since then. During his stay in the transitional care unit the patient developed a sacral decubitus ulcer with purulent drainage. Appear to be worsening and infectious disease and general surgery were consulted. Infectious disease but the patient on metronidazole and vancomycin. Culture from January 07 grew out staph aureus, enterococcus and Streptococcus pseudoporcinus. Patient was seen by Dr. Abreu who is taking the patient for further debridement of the wound tonight. Patient currently denying any complaints. Denies any fever or chills. Otherwise feels well. Currently sitting in the PACU awaiting surgery. Past Medical History Past Medical History (Chronic Problems): Chronic Problems (Last Reviewed 12/31/17 @ 08:29 by Salome Angulo NP-C) Right hemiplegia (Chronic) Congestive heart failure (Chronic) Alcohol abuse (Chronic) Sleep apnea (Chronic) Diabetes mellitus (Chronic) Fall (Chronic) Traumatic brain injury (Chronic) Intraparenchymal hemorrhage of brain (Chronic) Subarachnoid hemorrhage (Chronic) Subdural hematoma (Chronic) Intraventricular hemorrhage (Chronic) Right scapula fracture (Chronic) Tobacco abuse (Chronic) Dysphagia (Chronic) Insomnia (Chronic) Vitamin D deficiency (Chronic) Depression (Chronic) GERD (gastroesophageal reflux disease) (Chronic) BPH (benign prostatic hyperplasia) (Chronic) Encounter for long-term current use of high risk medication (Chronic) Obstructive sleep apnea (Chronic) 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) S/P CABG x3 with right radial to LAD, SVG to RCA, and SVG to OM 2; stenting to LAD in February 2017; Presence of coronary angioplasty implant and graft (Chronic) Presence of aortocoronary bypass graft (Chronic) CABG X 3 2001 ?, Radial artery -LAD, SVG-RCA, SVG-OM2 Non-ST elevation myocardial infarction (NSTEMI), initial care episode (Chronic) 02/16/17 Ischemic cardiomyopathy (Chronic) Restless leg syndrome (Chronic) Hyperlipidemia (Chronic) Hypertensive emergency (Chronic) COPD (chronic obstructive pulmonary disease) (Chronic) Hypertension (Chronic) Morbid obesity (Chronic) CAD (coronary artery disease) (Chronic) Stented coronary artery (Chronic) [facility] w/[id number] LAD (grafts occluded X 3) 02/20/17 Former smoker (Chronic) quit February 2017 Diabetes mellitus type 2 in obese (Chronic) Hx of CABG (Chronic) CABG X3 rADIAL ARTERY-lad, svg-rca, svg-om2. 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) I25.810 S/P CABG x3 with right radial to LAD, SVG to RCA, and SVG to OM 2; stenting to LAD in February 2017; Non-ST elevation myocardial infarction (NSTEMI), initial care episode (Chronic) I21.4 02/16/17 Ischemic cardiomyopathy (Chronic) I25.5 FUO (fever of unknown origin) (Acute) Restless leg syndrome (Chronic) Hyperlipidemia (Chronic) E78.5 Hypertensive emergency (Chronic) I16.1 Demand ischemia (Resolved) I24.8 COPD (chronic obstructive pulmonary disease) (Chronic) J44.9 Hypertension (Chronic) I10 Morbid obesity (Chronic) E66.01 Systolic CHF, acute (Acute) I50.21 CAD (coronary artery disease) (Chronic) I25.10 Stented coronary artery (Chronic) [facility] w/LRI-LNV-Rk[facility] LAD (grafts occluded X 3) 02/20/17 Former smoker (Chronic) Z87.891 quit February 2017 Diabetes mellitus type 2 in obese (Chronic) E11.69, E66.9 PEG (percutaneous endoscopic gastrostomy) adjustment/replacement/removal Z43.1 Nicotine dependence F17.200 Allergies atorvastatin Allergy (Verified 12/29/17 08:28) Hives cilostazol Allergy (Verified 12/29/17 08:28) Hives colestipol Allergy (Verified 12/29/17 08:28) Hives diltiazem Allergy (Verified 12/29/17 08:28) Hives gemfibrozil Allergy (Verified 12/29/17 08:28) Hives naproxen [From Naprosyn] Allergy (Verified 12/29/17 08:28) Hives niacin Allergy (Verified 12/29/17 08:28) Hives Penicillins Allergy (Verified 12/29/17 08:28) Hives pravastatin Allergy (Verified 12/29/17 08:28) Hives procaine [From Novocain] Allergy (Verified 12/29/17 08:28) Hives rosuvastatin Allergy (Verified 12/29/17 08:28) Hives simvastatin Allergy (Verified 12/29/17 08:28) Hives isosorbide Adverse Reaction (Severe, Verified 12/29/17 08:28) Unknown Home Medications: Ambulatory Orders Medication Instructions Recorded Amitriptyline HCl 100 mg GT QHS 02/16/17 Cholecalciferol (Vitamin D3) 5,000 unit GT DAILY 02/16/17 [Vitamin D3] Duloxetine HCl 60 mg GT DAILY 02/16/17 Lactase 1 tab GT TIDCM 02/16/17 Lansoprazole [Prevacid] 30 mg GT BIDCM 02/16/17 Nitroglycerin 0.4 mg SL PRN PRN 02/16/17 Ropinirole HCl [Requip] 0.5 mg GT QHS 02/16/17 Tamsulosin HCl [Flomax] 0.4 mg GT QHS 02/16/17 traMADol [Ultram] 50 mg GT TID PRN 02/16/17 lisinopril 20 mg tablet 20 mg GT QDAY 05/20/17 Albuterol Inhaler [Ventolin Hfa] 1 - 2 puff INHALATION 4X/DAY PRN 12/04/17 PRN Amantadine Liquid 100 mg GT DAILY 12/04/17 Aspirin [Aspirin, Baby] 81 mg GT DAILY@0800 12/04/17 Budesonide Aerosol [Pulmicort 0.5 mg INHALATION BID 12/04/17 Respules] Magnesium Oxide [Mag-Ox 400] 400 mg GT TIDCM 12/04/17 Pravastatin [Pravachol] 80 mg PO QHS 12/04/17 ranitidine 150 mg capsule 150 mg GT QHS 12/04/17 Acetaminophen Liquid [Tylenol 650 mg GT Q4H PRN PRN udc 12/19/17 Liquid] Albuterol Aerosols [Ventolin 2.5 mg INHALATION Q2H PRN PRN 12/19/17 Aerosols] vial.neb. Amlodipine [Norvasc] 10 mg GT DAILY 12/19/17 Bisacodyl [Dulcolax] 5 mg PO DAILY PRN PRN tab 12/19/17 Furosemide [Lasix] 40 mg GT BIDLX 12/19/17 Insulin Glargine [Lantus SoloStar 35 units SC DAILY 12/19/17 Pen] Insulin Glargine [Lantus SoloStar 50 units SC QHS 12/19/17 Pen] Insulin Lispro [Humalog KwikPen] 10 unit SC Q6 12/19/17 Ipratropium/Albuterol Sulfate 3 ml INHALATION Q6H.RT 12/19/17 [Duoneb] Levofloxacin [Levaquin] 750 mg PO DAILY 12/19/17 Mag Hydrox/Al Hydrox/Simeth 30 ml GT Q6H PRN PRN udc 12/19/17 [Mylanta II] Magnesium Hydroxide [Milk Of 30 ml GT DAILY PRN udc 12/19/17 Magnesia] Metoprolol Tartrate [Lopressor 150 mg GT TID 12/19/17 (beta stepan)] Mineral Oil/Petrolatum,White 1 applic TOPICAL BID 12/19/17 [Eucerin] Potassium Cloride Effervescent 50 meq GT BIDCM 12/19/17 [Potassium Chl 25 Meq Eff (For Liquid)] Pramipexole Di-HCl [Mirapex] 0.25 mg GT QHS 12/19/17 Zolpidem Tartrate [Ambien] 5 mg GT QHS PRN PRN tab 12/19/17 Surgical History: Surgical History (Last Reviewed 01/15/18 @ 18:40 by Darnell Felix DO) Presence of coronary angioplasty implant and graft (Chronic) Z95.5 Presence of aortocoronary bypass graft (Chronic) Z95.1 CABG X 3 2001 ?, Radial artery -LAD, SVG-RCA, SVG-OM2 Hx of CABG (Chronic) CABG X3 rADIAL ARTERY-lad, svg-rca, svg-om2. MULTIPLE CORONARY STENTS Surgical History: angioplasty, coronary bypass surgery - x 3., - - PEG tube. Psychiatric History: Depression Lives: - - Has been in the hospital or transitional care unit since November Smoking Status: Former smoker Tobacco Use: Non-smoker Alcohol: None Drugs: None - *Family History Maternal Family History: Family History (Last Reviewed 01/15/18 @ 18:40 by Darnell Felix DO) Brother Heart disease Father Heart disease History Items: No pertinent history, - - Alzheimer Paternal Family History: Family History (Last Reviewed 01/15/18 @ 18:40 by Darnell Felix DO) Brother Heart disease Father Heart disease History Items: No pertinent history Review of Systems Constitutional: Denies: Anorexia, Chills, Fever Eyes: Denies: Blurred vision, Double vision HEENT: Denies: Head Aches, Sinus Congestion, Sinus Drainage Cardiovascular: Denies: Chest Pain, Palpitations Respiratory: Denies: Cough, Shortness of breath at rest, Sputum production Gastrointestinal: Denies: Abdominal Pain, Nausea, Vomiting Genitourinary: Denies: Dysuria Musculoskeletal: Denies: Joint Pain, Joint Tenderness Skin: Reports: - - Sacral decubitus ulcer Neurological: Reports: - - Right-sided hemiparesis since traumatic brain injury , - - Dysphasia status post traumatic brain injury it is now able to eat a modified diet Psychiatric: Denies: Anxiety, Depression Endocrine: Denies: Change in Body Habitus Hematologic/ Lymphatic: Denies: Easy Bruising, Easy Bleeding, Hx of blood clot Comment: All review of systems are negative except as mentioned in the history of present illness and the other review of systems. VTE Information - Inpt Only VTE Present on Admission: No VTE Mechan Device Prophylaxis: SCD's VTE Pharm Prophylaxis ordered?: No Reason prophylaxis not ordered:: Medical Contraindication Patient Problems: Active and Suspected Problems (Last Reviewed 12/31/17 @ 08:29 by IRAIS ReederC) Sepsis (Acute) Healthcare associated bacteremia due to Staphylococcus aureus (Acute) Infected decubitus ulcer (Acute) Infected decubitus ulcer (Acute) - Physical Exam General: Alert, Cooperative, No apparent distress, Well developed, Well nourished HEENT: Atraumatic, Normocephalic Oral: Moist Mucosa, No Gingival or Mucosal Lesions/ Ulcerations Neck: No Nodes, Thyroid Normal Size and Texture Lungs: Clear to auscultation, Normal air movement, No rhonchi, No wheeze Cardiovascular: Regular rate, Regular Rhythm, Normal S1, Normal S2, No murmurs Abdomen: Bowel Sounds Present, Soft, Non Tender, Non-Distended, No Hepato- splenomegaly, - - PEG tube in left upper quadrant Extremities: No edema, No Calf Tenderness Skin: No rashes Musculoskeletal: No Tenderness to Palpation of Joints or Extremities, No Muscle Wasting Neurological: - - Flaccid on the right side. Muscle strength 5 out of 5 in the left upper extremity. Diminished DTRs in the right patellar reflex Psych/Mental Status: Normal Affect, Appropriate Vital Signs Temp Pulse Resp BP Pulse Ox 36.6 C 85 20 H 130/64 H 99 01/15/18 17:10 01/15/18 17:10 01/15/18 17:10 01/15/18 17:10 01/15/18 17:10 Oxygen Delivery Method Room Air Weight: 106.37 kg Body Mass Index (BMI) 30.1 Finger Stick Blood Glucose 95 Assessment/Plan All Active Problems (Last Reviewed 12/31/17 @ 08:29 by Salome Angulo, KELLY-C) Sepsis (Acute) Healthcare associated bacteremia due to Staphylococcus aureus (Acute) Infected decubitus ulcer (Acute) Infected decubitus ulcer (Acute) Alcohol intoxication (Resolved) Acute respiratory failure (Acute) Aspiration pneumonia (Acute) Acute and chronic respiratory failure with hypoxia (Acute) FUO (fever of unknown origin) (Acute) Demand ischemia (Resolved) Systolic CHF, acute (Acute) Acute respiratory failure with hypoxia and hypercarbia (Resolved) Multifocal community-acquired pneumonia (Resolved) Severe sepsis (Resolved) 1. Infected sacral decubitus ulcer * Polymicrobial with MSSA, Enterococcus faecalis, and a strep species * Continue with the antibiotics already prescribed by infectious disease with metronidazole and vancomycin * Patient to have further I&D this evening * Further wound care management by surgery and wound care * Turn and reposition every 2 hours 2. Dysphagia * Continue with modified diet with pur?ed and nectar thickened liquids * Speech therapy 3. Traumatic brain injury * Patient had subsequent intracranial hemorrhage, subarachnoid hemorrhage, subdural hemorrhage and intraventricular hemorrhage * Patient with right-sided hemiplegia * Physical and occupational therapy 4. Coronary artery disease * Patient has Q waves in the inferior leads but that is unchanged * Continue with aspirin and metoprolol * Asymptomatic at this time 5. DVT prophylaxis with SCDs. Would continue to hold off on chemical prophylaxis given patient's traumatic brain injury and extensive hemorrhage that he had. Code Visit Inpatient E&M: 30723 Init Hosp L3
--- NOTE | 2018-01-15 18:47 | PCM.OPRPT ---
Report of Operation Date of Procedure: 01/15/18 Pre-Operative Diagnosis: Infected, necrotic sacral wound Post-Operative Diagnosis: Same Surgery/Procedure Performed:: Debridement of necrotic sacral wound Type of Anesthesia:: General Anesthesiologist: Darnell Kauffman Special Medications: Patient was receiving vancomycin IV Flagyl for infected sacral wound on the floor Specimen's removed: Culture was taken of the necrotic tissue her Gram stain and anaerobic and aerobic cultures Estimated Blood Loss (mL): <10 cc Fluids Replaced: 1000 cc Description of Procedure: Patient was brought into the operating room general anesthesia was induced. Patient was placed in right lateral decubitus position. A timeout was completed verifying correct patient, procedure, site, positioning of special equipment prior to beginning procedure. His sacral area was prepped draped in usual sterile fashion with Betadine. The necrotic tissue was debrided from his sacral wound which they open wound measured 4 cm x 3 cm and was approximately 2 cm deep. Patient also had superficial debridement that was previously done by the wound center which was about an 8 cm x 8 cm area surrounding the wound and erythema extended from 11 cm to 10 cm with the wound at the center. Debridement was done with a 15 blade and 10 blade scalpel. Debridement continued until there was healthy bleeding tissue. Electrocautery was used for hemostasis. The wound was irrigated. And a wet-to-dry dressing was placed with Bactroban over the superficial debridement areas then ABD was placed. Patient was extubated and tolerated procedure well and taken to the PACU in stable condition. - Complications none
[2018-01-15 19:21] LABS: Bedside Glucose 92 mg/dL (70-110)
--- NOTE | 2018-01-15 20:57 | CPS ---
PATIENT HAS HOME CPAP. RT NOTED THAT PATIENT WEARS CPAP WITH 3 LPM BLED IN PER DR. GAMEZ NOTES/
[2018-01-15] MEDS: Ipratropium/Albuterol Sulfate 3 ML AMPUL.NEB INHALATION (20:58)
[2018-01-15] MEDS: Budesonide Respules 0.5 MG/2 ML AMPUL.NEB. INHALATION (20:59)
[2018-01-15] MEDS: Pravastatin 80 MG Tablet PO (21:16)
[2018-01-15] MEDS: Amitriptyline 100 MG Tablet PO (21:16)
[2018-01-15] MEDS: Tamsulosin HCl 0.4 MG Capsule PO (21:17)
[2018-01-15] MEDS: Pramipexole Di-HCl 0.25 MG Tablet PO (21:17)
[2018-01-15] MEDS: Metoprolol Tartrate 50 MG Tablet 150 MG PO (21:26)
[2018-01-15 21:40] LABS: Bedside Glucose 109 mg/dL (70-110)
--- NOTE | 2018-01-15 22:47 | CPS ---
rt assisted patient with home cpap setup with 5 lpm oxygen bled in.
[2018-01-15 23:56] LABS: Bedside Glucose 117 mg/dL (70-110)
[2018-01-16 00:39] VITALS: BP 131/69; PULSE 85; RESP 16; TEMP 37.1; O2SAT 96; BMI 30.1
[2018-01-16] MEDS: Ipratropium/Albuterol Sulfate 3 ML AMPUL.NEB INHALATION ×2 (01:13→07:17)
[2018-01-16 01:18] VITALS: PULSE 88; RESP 18; O2SAT 94
[2018-01-16 05:22] VITALS: BP 148/82; PULSE 106; RESP 16; TEMP 36.6; O2SAT 98
[2018-01-16 05:27] VITALS: PULSE 106
[2018-01-16] MEDS: Metoprolol Tartrate 50 MG Tablet 150 MG PO (05:27)
[2018-01-16 05:46] LABS: Bedside Glucose 105 mg/dL (70-110)
--- NOTE | 2018-01-16 07:07 | PCM.PN.SRG ---
Patient Problems: Active and Suspected Problems (Last Updated 01/15/18 @ 18:40 by Darnell Felix DO) Sepsis (Acute) Healthcare associated bacteremia due to Staphylococcus aureus (Acute) Infected decubitus ulcer (Acute) Infected decubitus ulcer (Acute) Subjective: pt sleeping comfortably, no current complaints - Physical Exam General: Alert, Cooperative, No apparent distress Lungs: Normal air movement Skin: Ulcer/ Wound - sacral wound packed with wet to dry, look healthy tissue/fat at bottom no further necrotic tissue seen. superficial debridement area w calmoseptine. Neurological: Cranial nerves II-XII grossly intact Vital Signs Temp Pulse Resp BP Pulse Ox 98 F 106 H 16 148/82 H 98 01/16/18 05:22 01/16/18 05:27 01/16/18 05:22 01/16/18 05:22 01/16/18 05:22 Oxygen Flow Rate (L/min) 5 Oxygen Delivery Method Bi-pap Weight: 234 lb 8.091 oz Body Mass Index (BMI) 30.1 Finger Stick Blood Glucose 95 Intake and Output for Last 24 Hours 01/14/18 01/15/18 01/16/18 23:59 23:59 23:59 Intake Total 1330 / 1330 1475 / 1475 Output Total 650 / 650 2650 / 2650 Balance 680 / 680 -1175 / -1175 POC Glucose 01/16/18 01/15/18 01/15/18 05:25 23:52 21:19 POC Glucose 105 117 H 109 01/15/18 19:16 POC Glucose 92 Medical Necessity - Tobacco Use Smoking Status: Former smoker Tobacco Use: Non-smoker Assessment/Plan All Active Problems (Last Updated 01/15/18 @ 18:40 by Darnell Feilx DO) Alcohol intoxication (Resolved) Acute respiratory failure (Acute) Aspiration pneumonia (Acute) Acute and chronic respiratory failure with hypoxia (Acute) Sepsis (Acute) Healthcare associated bacteremia due to Staphylococcus aureus (Acute) Infected decubitus ulcer (Acute) Infected decubitus ulcer (Acute) FUO (fever of unknown origin) (Acute) Demand ischemia (Resolved) Systolic CHF, acute (Acute) Acute respiratory failure with hypoxia and hypercarbia (Resolved) Multifocal community-acquired pneumonia (Resolved) Severe sepsis (Resolved) 67-year-old male status post day 1 debridement of sacral wound 1. Continue wound care wet-to-dry dressings 3 times daily and calmoseptine to the superficial debridement area surrounding the open wound 3 times daily. Continue to roll patient every 2 hours. Cultures pending. continue antibiotics per ID. Joann Arias M.D. Pager: [phone] [facility] [address] [place] [address], [address] [place] [address] Office: [phone]
--- NOTE | 2018-01-16 07:11 | PN.SURG_ITS ---
Patient Problems: Active and Suspected Problems (Last Updated 01/15/18 @ 18:40 by Darnell Felix DO ) Sepsis (Acute) Healthcare associated bacteremia due to Staphylococcus aureus (Acute) Infected decubitus ulcer (Acute) Infected decubitus ulcer (Acute) Subjective: pt sleeping comfortably, no current complaints - Physical Exam General: Alert, Cooperative, No apparent distress Lungs: Normal air movement Skin: Ulcer/ Wound - sacral wound packed with wet to dry, look healthy tissue/ fat at bottom no further necrotic tissue seen. superficial debridement area w calmoseptine. Neurological: Cranial nerves II-XII grossly intact Vital Signs Temp Pulse Resp BP Pulse Ox 98 F 106 H 16 148/82 H 98 01/16/18 05:22 01/16/18 05:27 01/16/18 05:22 01/16/18 05:22 01/16/18 05:22 Oxygen Flow Rate (L/min) 5 Oxygen Delivery Method Bi-pap Weight: 234 lb 8.091 oz Body Mass Index (BMI) 30.1 Finger Stick Blood Glucose 95 Intake and Output for Last 24 Hours 01/14/18 01/15/18 01/16/18 23:59 23:59 23:59 Intake Total 1330 / 1330 1475 / 1475 Output Total 650 / 650 2650 / 2650 Balance 680 / 680 -1175 / -1175 POC Glucose 01/16/18 01/15/18 01/15/18 05:25 23:52 21:19 POC Glucose 105 117 H 109 01/15/18 19:16 POC Glucose 92 Medical Necessity - Tobacco Use Smoking Status: Former smoker Tobacco Use: Non-smoker Assessment/Plan All Active Problems (Last Updated 01/15/18 @ 18:40 by Darnell Felix DO) Alcohol intoxication (Resolved) Acute respiratory failure (Acute) Aspiration pneumonia (Acute) Acute and chronic respiratory failure with hypoxia (Acute) Sepsis (Acute) Healthcare associated bacteremia due to Staphylococcus aureus (Acute) Infected decubitus ulcer (Acute) Infected decubitus ulcer (Acute) FUO (fever of unknown origin) (Acute) Demand ischemia (Resolved) Systolic CHF, acute (Acute) Acute respiratory failure with hypoxia and hypercarbia (Resolved) Multifocal community-acquired pneumonia (Resolved) Severe sepsis (Resolved) 67-year-old male status post day 1 debridement of sacral wound 1. Continue wound care wet-to-dry dressings 3 times daily and calmoseptine to the superficial debridement area surrounding the open wound 3 times daily. Continue to roll patient every 2 hours. Cultures pending. continue antibiotics per ID. Joann Arias M.D. Pager: [phone] [facility] [address] [place] [address], [address] [place] [address] Office: [phone]
[2018-01-16 07:17] VITALS: PULSE 90; RESP 16; O2SAT 95
[2018-01-16] MEDS: Budesonide Respules 0.5 MG/2 ML AMPUL.NEB. INHALATION (07:17)
[2018-01-16] MEDS: metroNIDAZOLE 500 MG Tablet PO ×2 (08:50→11:27)
[2018-01-16] MEDS: Magnesium Oxide 400 MG Tablet PO ×2 (08:50→11:27)
[2018-01-16] MEDS: Aspirin 81 MG TAB.CHEW PO (08:50)
[2018-01-16] MEDS: DULoxetine Hcl 60 MG Capsule PO (08:51)
[2018-01-16] MEDS: Furosemide 40 MG Tablet PO (08:52)
[2018-01-16] MEDS: amLODIPine 10 MG Tablet PO (08:52)
[2018-01-16] MEDS: Amantadine 100 MG Capsule PO (08:53)
[2018-01-16 08:59] LABS: Absolute Lymphocyte Count 1.41 X10^3/ul (0.83-4.51); Absolute Neutrophil Count 6.9 X10^3/uL (2.0-7.7); Basophil# 0.02 X10^3/uL; Basophil% 0.2 % (0-1); Eosinophil# 0.15 X10^3/uL; Eosinophils% 1.6 % (0-5); Hematocrit 31.2 % (40-54); Hemoglobin 9.8 g/dl (13.0-16.5); Lymphocyte # 1.41 X10^3/ul (4.0); Lymphocyte % 15.4 % (19-41); Mean Corp Hgb Conc 31.4 g/gl (32-36); Mean Corpuscular Hgb 29.9 pg (27.0-32.0); Mean Corpuscular Volume 95.1 fL (80-94); Mean Platelet Vol. 10.1 fl (6.2-12.0); Monocyte# 0.68 X10^3/uL; Monocyte% 7.4 % (0-10); Neutrophil # 6.86 X10^3/uL (2.7-7.7); Neutrophil % 75.2 % (47-70); Platelet Count 263 K/mm3 (150-450); RBC Distribution Width CV 14.4 % (11.6-14.6); RBC Distribution Width SD 49.8 fl (35.1-43.9); Red Blood Count 3.28 M/mm3 (4.6-6.2); White Blood Count 9.1 K/mm3 (4.4-11.0)
[2018-01-16 09:00] VITALS: BP 100/64; PULSE 99; RESP 18; TEMP 36.9; O2SAT 97
[2018-01-16 09:00] LABS: POSITIVE COUNT NO; POSITIVE DIFFERENTIAL NO; POSITIVE MORPHOLOGY NO
[2018-01-16 09:27] LABS: Anion Gap 12 (5-15); BUN 8 mg/dL (7-18); BUN/Creat Ratio 19.1 RATIO (10-20); Chloride 104 mmol/L (98-107); Creatinine, Serum 0.42 mg/dL (0.70-1.30); EST Glomerular Filtration Rate 216 mL/min (>60); Est Glom Filt Rate - Afr Amer 261 mL/min (>60); Estimated Creatinine Clearance 83.34 ml/min; Glucose 111 mg/dL (74-106); Potassium 3.7 mmol/L (3.5-5.1); Sodium Level 143 mmol/L (136-145)
--- NOTE | 2018-01-16 10:01 | PCM.PN.HOSP ---
Patient Problems: Active and Suspected Problems (Last Updated 01/15/18 @ 18:40 by Darnell Felix DO) Sepsis (Acute) Healthcare associated bacteremia due to Staphylococcus aureus (Acute) Infected decubitus ulcer (Acute) Infected decubitus ulcer (Acute) Subjective: No complaints today. Objective: s/p I+D last night. No issues intra nor post-op. Vitals/I&O's: Vital Signs Temp Pulse Resp BP Pulse Ox 36.6 C 90 16 148/82 H 95 01/16/18 05:22 01/16/18 07:17 01/16/18 07:17 01/16/18 05:22 01/16/18 07:17 Oxygen Flow Rate (L/min) 5 Oxygen Delivery Method Room Air Weight: 106.37 kg Body Mass Index (BMI) 30.1 Finger Stick Blood Glucose 95 Intake and Output for Last 24 Hours 01/14/18 01/15/18 01/16/18 23:59 23:59 23:59 Intake Total 1330 / 1330 1475 / 1475 Output Total 650 / 650 2650 / 2650 Balance 680 / 680 -1175 / -1175 General: Alert, Cooperative, No apparent distress HEENT: Atraumatic, Normocephalic Oral: Moist Mucosa, No Gingival or Mucosal Lesions/ Ulcerations Neck: No Nodes, Thyroid Normal Size and Texture Lungs: Clear to auscultation, Normal air movement, No rhonchi, No wheeze Cardiovascular: Regular rate, Regular Rhythm, Normal S1, Normal S2 Abdomen: Bowel Sounds Present, Soft, Non Tender, Non-Distended Extremities: No Calf Tenderness, Edema Skin: No rashes Musculoskeletal: No Tenderness to Palpation of Joints or Extremities, No Muscle Wasting Neurological: - - able to slightly clench right hand. Psych/Mental Status: Normal Affect, Appropriate Laboratory Results 01/15/18 19:16: POC Glucose 92 01/15/18 21:19: POC Glucose 109 01/15/18 23:52: POC Glucose 117 H 01/16/18 05:25: POC Glucose 105 01/16/18 08:16: WBC 9.1, RBC 3.28 L, Hgb 9.8 L, Hct 31.2 L, MCV 95.1 H, MCH 29.9, MCHC 31.4 L, RDW 14.4, RDW Differential 49.8 H, Plt Count 263, MPV 10.1, Immature Gran % (Auto) 0.200, Neut % (Auto) 75.2 H, Lymph % (Auto) 15.4 L, [place] % (Auto) 7.4, Eos % (Auto) 1.6, Baso % (Auto) 0.2, Absolute Neuts (auto) 6.9, Absolute Lymphs (auto) 1.41, Total Counted Not Reportable 01/16/18 08:16: Sodium 143, Potassium 3.7, Chloride 104, Carbon Dioxide 27.0, Anion Gap 12, BUN 8, Creatinine 0.42 L, Estim Creat Clear Calc 83.34, Est GFR (MDRD) Af Amer 261, Est GFR (MDRD) Non-Af 216, BUN/Creatinine Ratio 19.1, Glucose 111 H, Calcium 9.0 Current Medications Amantadine HCl (Symmetrel) 100 mg PO DAILY [facility] Last Admin: 01/16/18 08:53 Dose: 100 mg Amlodipine Besylate (Norvasc) 10 mg PO DAILY [facility] Last Admin: 01/16/18 08:52 Dose: 10 mg Aspirin (Aspirin, Baby) 81 mg PO DAILY@0800 [facility] Last Admin: 01/16/18 08:50 Dose: 81 mg Cholecalciferol (Vitamin D) 5,000 unit PO DAILY [facility] Last Admin: 01/16/18 08:52 Dose: 5,000 unit Duloxetine HCl (Cymbalta) 60 mg PO DAILY [facility] Last Admin: 01/16/18 08:51 Dose: 60 mg Furosemide (Lasix) 40 mg PO BIDLX [facility] Last Admin: 01/16/18 08:52 Dose: 40 mg Lansoprazole (Prevacid) 30 mg PO BIDCM [facility] Last Admin: 01/16/18 08:51 Dose: 30 mg Magnesium Oxide (Mag-Ox 400) 400 mg PO TIDCM [facility] Last Admin: 01/16/18 08:50 Dose: 400 mg Metronidazole (Flagyl) 500 mg PO TIDCM [facility] Last Admin: 01/16/18 08:50 Dose: 500 mg Potassium Bicarb/Potassium Chloride (Potassium Chl 25 Meq Eff (For Liquid)) 50 meq PO BIDCM [facility] Last Admin: 01/16/18 08:51 Dose: 50 meq Medical Necessity - Tobacco Use Smoking Status: Former smoker Tobacco Use: Non-smoker Assessment/Plan All Active Problems (Last Updated 01/15/18 @ 18:40 by Darnell Felix, ) Alcohol intoxication (Resolved) Acute respiratory failure (Acute) Aspiration pneumonia (Acute) Acute and chronic respiratory failure with hypoxia (Acute) Sepsis (Acute) Healthcare associated bacteremia due to Staphylococcus aureus (Acute) Infected decubitus ulcer (Acute) Infected decubitus ulcer (Acute) FUO (fever of unknown origin) (Acute) Demand ischemia (Resolved) Systolic CHF, acute (Acute) Acute respiratory failure with hypoxia and hypercarbia (Resolved) Multifocal community-acquired pneumonia (Resolved) Severe sepsis (Resolved) 1. Infected sacral decubitus ulcer s/p I+D on 01/15 prevsiously Polymicrobial with MSSA, Enterococcus faecalis, and a strep species (01/07). Culture from 01/15 pending. Continue with the antibiotics already prescribed by infectious disease with metronidazole and vancomycin Patient to have further I&D this evening Further wound care management by surgery and wound care Turn and reposition every [address] Cheatham, no further surgical inpatient needs and can follow up with him again in TCU 2. Dysphagia Continue with modified diet with pur?ed and nectar thickened liquids Speech therapy 3. Traumatic brain injury Patient had subsequent intracranial hemorrhage, subarachnoid hemorrhage, subdural hemorrhage and intraventricular hemorrhage Patient with right-sided hemiplegia Physical and occupational therapy 4. Coronary artery disease Patient has Q waves in the inferior leads but that is unchanged Continue with aspirin and metoprolol Asymptomatic at this time 5. DVT prophylaxis with SCDs. Would continue to hold off on chemical prophylaxis given patient's traumatic brain injury and extensive hemorrhage that he had. 6. Disposition: back to TCU today with general surgery and ID consults. and PT/OT/ST DW family at bedside.
--- NOTE | 2018-01-16 10:05 | PN_ITS ---
Patient Problems: Active and Suspected Problems (Last Updated 01/15/18 @ 18:40 by Darnell Felix DO ) Sepsis (Acute) Healthcare associated bacteremia due to Staphylococcus aureus (Acute) Infected decubitus ulcer (Acute) Infected decubitus ulcer (Acute) Subjective: No complaints today. Objective: s/p I+D last night. No issues intra nor post-op. Vitals/I&O's: Vital Signs Temp Pulse Resp BP Pulse Ox 36.6 C 90 16 148/82 H 95 01/16/18 05:22 01/16/18 07:17 01/16/18 07:17 01/16/18 05:22 01/16/18 07:17 Oxygen Flow Rate (L/min) 5 Oxygen Delivery Method Room Air Weight: 106.37 kg Body Mass Index (BMI) 30.1 Finger Stick Blood Glucose 95 Intake and Output for Last 24 Hours 01/14/18 01/15/18 01/16/18 23:59 23:59 23:59 Intake Total 1330 / 1330 1475 / 1475 Output Total 650 / 650 2650 / 2650 Balance 680 / 680 -1175 / -1175 General: Alert, Cooperative, No apparent distress HEENT: Atraumatic, Normocephalic Oral: Moist Mucosa, No Gingival or Mucosal Lesions/ Ulcerations Neck: No Nodes, Thyroid Normal Size and Texture Lungs: Clear to auscultation, Normal air movement, No rhonchi, No wheeze Cardiovascular: Regular rate, Regular Rhythm, Normal S1, Normal S2 Abdomen: Bowel Sounds Present, Soft, Non Tender, Non-Distended Extremities: No Calf Tenderness, Edema Skin: No rashes Musculoskeletal: No Tenderness to Palpation of Joints or Extremities, No Muscle Wasting Neurological: - - able to slightly clench right hand. Psych/Mental Status: Normal Affect, Appropriate Laboratory Results 01/15/18 19:16: POC Glucose 92 01/15/18 21:19: POC Glucose 109 01/15/18 23:52: POC Glucose 117 H 01/16/18 05:25: POC Glucose 105 01/16/18 08:16: WBC 9.1, RBC 3.28 L, Hgb 9.8 L, Hct 31.2 L, MCV 95.1 H, MCH 29.9 , MCHC 31.4 L, RDW 14.4, RDW Differential 49.8 H, Plt Count 263, MPV 10.1, Immature Gran % (Auto) 0.200, Neut % (Auto) 75.2 H, Lymph % (Auto) 15.4 L, [place] % (Auto) 7.4, Eos % (Auto) 1.6, Baso % (Auto) 0.2, Absolute Neuts (auto) 6.9, Absolute Lymphs (auto) 1.41, Total Counted Not Reportable 01/16/18 08:16: Sodium 143, Potassium 3.7, Chloride 104, Carbon Dioxide 27.0, Anion Gap 12, BUN 8, Creatinine 0.42 L, Estim Creat Clear Calc 83.34, Est GFR ( MDRD) Af Amer 261, Est GFR (MDRD) Non-Af 216, BUN/Creatinine Ratio 19.1, Glucose 111 H, Calcium 9.0 Current Medications Amantadine HCl (Symmetrel) 100 mg PO DAILY [facility] Last Admin: 01/16/18 08:53 Dose: 100 mg Amlodipine Besylate (Norvasc) 10 mg PO DAILY [facility] Last Admin: 01/16/18 08:52 Dose: 10 mg Aspirin (Aspirin, Baby) 81 mg PO DAILY@0800 [facility] Last Admin: 01/16/18 08:50 Dose: 81 mg Cholecalciferol (Vitamin D) 5,000 unit PO DAILY [facility] Last Admin: 01/16/18 08:52 Dose: 5,000 unit Duloxetine HCl (Cymbalta) 60 mg PO DAILY [facility] Last Admin: 01/16/18 08:51 Dose: 60 mg Furosemide (Lasix) 40 mg PO BIDLX [facility] Last Admin: 01/16/18 08:52 Dose: 40 mg Lansoprazole (Prevacid) 30 mg PO BIDCM [facility] Last Admin: 01/16/18 08:51 Dose: 30 mg Magnesium Oxide (Mag-Ox 400) 400 mg PO TIDCM [facility] Last Admin: 01/16/18 08:50 Dose: 400 mg Metronidazole (Flagyl) 500 mg PO TIDCM [facility] Last Admin: 01/16/18 08:50 Dose: 500 mg Potassium Bicarb/Potassium Chloride (Potassium Chl 25 Meq Eff (For Liquid)) 50 meq PO BIDCM [facility] Last Admin: 01/16/18 08:51 Dose: 50 meq Medical Necessity - Tobacco Use Smoking Status: Former smoker Tobacco Use: Non-smoker Assessment/Plan All Active Problems (Last Updated 01/15/18 @ 18:40 by Darnell Felix, ) Alcohol intoxication (Resolved) Acute respiratory failure (Acute) Aspiration pneumonia (Acute) Acute and chronic respiratory failure with hypoxia (Acute) Sepsis (Acute) Healthcare associated bacteremia due to Staphylococcus aureus (Acute) Infected decubitus ulcer (Acute) Infected decubitus ulcer (Acute) FUO (fever of unknown origin) (Acute) Demand ischemia (Resolved) Systolic CHF, acute (Acute) Acute respiratory failure with hypoxia and hypercarbia (Resolved) Multifocal community-acquired pneumonia (Resolved) Severe sepsis (Resolved) 1. Infected sacral decubitus ulcer * s/p I+D on 01/15 * prevsiously Polymicrobial with MSSA, Enterococcus faecalis, and a strep species (01/07). Culture from 01/15 pending. * Continue with the antibiotics already prescribed by infectious disease with metronidazole and vancomycin * Patient to have further I&D this evening * Further wound care management by surgery and wound care * Turn and reposition every 2 hours * Per Dr. Cheatham, no further surgical inpatient needs and can follow up with him again in TCU 2. Dysphagia * Continue with modified diet with pur?ed and nectar thickened liquids * Speech therapy 3. Traumatic brain injury * Patient had subsequent intracranial hemorrhage, subarachnoid hemorrhage, subdural hemorrhage and intraventricular hemorrhage * Patient with right-sided hemiplegia * Physical and occupational therapy 4. Coronary artery disease * Patient has Q waves in the inferior leads but that is unchanged * Continue with aspirin and metoprolol * Asymptomatic at this time 5. DVT prophylaxis with SCDs. Would continue to hold off on chemical prophylaxis given patient's traumatic brain injury and extensive hemorrhage that he had. 6. Disposition: back to TCU today with general surgery and ID consults. and PT/ OT/ST DW family at bedside.
--- NOTE | 2018-01-16 10:14 | PCM.TXEXTCAR ---
- Diet 01/16/18 09:48 Diet: Regular Diet Food consistency:: Puree Liquid Consistency:: [place] Thick Dietary Modifications:: Pureed Diet [place] Thick Liquids Is pt able to select menu?: Yes Diet Comments: 1:1 supervision/total feed; meds crushed in purees if able - Routine Orders/Code Status Routine Lab Work: CBC - every Thursday, BMP - every Thursday Code Status: Full Code - Wound(s) SACRAL Wound Type: Surgical Incision Dressing Change: Wet to Dry Dressing - TID and calmoseptine to superfical debridement area surrounding the open wound 3 times daily. Left Thigh Wound Type: Abrasion - Suggestions for Active Care Change Position every (hours): 2 - Therapies Weight Bearing: Full weight bearing Extremity Affected:: Right Upper Physical Therapy: Eval and Treat Occupational Therapy: Eval and Treat Speech Therapy: Eval and Treat - Problem/Diagnosis (1) Infected decubitus ulcer Status: Acute Current Visit: Yes - Allergies/Procedures Done in Hospital Allergies/Adverse Reactions: Allergies atorvastatin Allergy (Verified 12/29/17 08:28) Hives cilostazol Allergy (Verified 12/29/17 08:28) Hives colestipol Allergy (Verified 12/29/17 08:28) Hives diltiazem Allergy (Verified 12/29/17 08:28) Hives gemfibrozil Allergy (Verified 12/29/17 08:28) Hives naproxen [From Naprosyn] Allergy (Verified 12/29/17 08:28) Hives niacin Allergy (Verified 12/29/17 08:28) Hives Penicillins Allergy (Verified 12/29/17 08:28) Hives pravastatin Allergy (Verified 12/29/17 08:28) Hives procaine [From Novocain] Allergy (Verified 12/29/17 08:28) Hives rosuvastatin Allergy (Verified 12/29/17 08:28) Hives simvastatin Allergy (Verified 12/29/17 08:28) Hives isosorbide Adverse Reaction (Severe, Verified 12/29/17 08:28) Unknown Procedures: - - Debridement of necrotic sacral wound - Type of Care/Length of Stay Estimated LOS: Convalescent Care Less Than 30 days Type of Care Needed: Skilled Rehab Potential: Fair Prognosis: Fair - Additional Orders/Day of Discharge Additional Orders: Consult Dr. Arias (General Surgery) for sacral wound. Consult Dr. Wilkerson (ID) for infected sacral wound. Routine PICC care. H&P will serve as current which was dated: 01/15/18 Day of Discharge: 01/16/18 - Follow Up Care Primary Care Physician: Julissa Lamb MD [Primary Care Provider] - Within 2 Weeks
--- NOTE | 2018-01-16 10:19 | PCM.DC.SUM ---
Discharge Date and Diagnosis - Problem List Patient Problems: Active and Suspected Problems (Last Updated 01/15/18 @ 18:40 by Darnell Felix DO) Infected decubitus ulcer (Acute) Infected decubitus ulcer (Acute) Date of Admission: 01/15/18 Date of Discharge: 01/16/18 - Primary Discharge Diagnosis Active and Suspected Problems (Last Updated 01/15/18 @ 18:40 by Darnell Felix DO) Sepsis (Acute) Healthcare associated bacteremia due to Staphylococcus aureus (Acute) Infected decubitus ulcer (Acute) Infected decubitus ulcer (Acute) - Secondary Discharge Diagnosis Chronic Problems (Last Reviewed 01/15/18 @ 18:40 by Darnell Felix DO) Fall (Chronic) Traumatic brain injury (Chronic) Intraparenchymal hemorrhage of brain (Chronic) Subarachnoid hemorrhage (Chronic) Subdural hematoma (Chronic) Intraventricular hemorrhage (Chronic) Right scapula fracture (Chronic) Tobacco abuse (Chronic) Dysphagia (Chronic) Insomnia (Chronic) Vitamin D deficiency (Chronic) Depression (Chronic) GERD (gastroesophageal reflux disease) (Chronic) BPH (benign prostatic hyperplasia) (Chronic) Right hemiplegia (Chronic) Congestive heart failure (Chronic) Alcohol abuse (Chronic) Sleep apnea (Chronic) Diabetes mellitus (Chronic) Encounter for long-term current use of high risk medication (Chronic) Obstructive sleep apnea (Chronic) 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) S/P CABG x3 with right radial to LAD, SVG to RCA, and SVG to OM 2; stenting to LAD in February 2017; Presence of coronary angioplasty implant and graft (Chronic) Presence of aortocoronary bypass graft (Chronic) CABG X 3 2001 ?, Radial artery -LAD, SVG-RCA, SVG-OM2 Non-ST elevation myocardial infarction (NSTEMI), initial care episode (Chronic) 02/16/17 Ischemic cardiomyopathy (Chronic) Restless leg syndrome (Chronic) Hyperlipidemia (Chronic) Hypertensive emergency (Chronic) COPD (chronic obstructive pulmonary disease) (Chronic) Hypertension (Chronic) Morbid obesity (Chronic) CAD (coronary artery disease) (Chronic) Stented coronary artery (Chronic) [facility] w/[id number] LAD (grafts occluded X 3) 02/20/17 Former smoker (Chronic) quit February 2017 Diabetes mellitus type 2 in obese (Chronic) Hx of CABG (Chronic) CABG X3 rADIAL ARTERY-lad, svg-rca, svg-om2. MULTIPLE CORONARY STENTS Hospital Course and Treatment Consultations 01/15/18 18:58 Consult: Onc/Wound/lead ingot molder Routine Comment: Paula Cheatham Operations: - - I+D sacral wound Procedures: None Summary of Care Provided: The patient is a 67 year old M presents for I&D of neck parotic infected decubitus ulcer. Patient underwent an I&D of the wound on the by Dr. Arias. Patient was monitored on the floor overnight and had no acute issues. Plan is for the patient to return back to the transitional care unit to continue with therapy as well as wound care. 1. Infected sacral decubitus ulcer s/p I+D on 01/15 prevsiously Polymicrobial with MSSA, Enterococcus faecalis, and a strep species (01/07). Culture from 01/15 pending. Continue with the antibiotics already prescribed by infectious disease with metronidazole and vancomycin Patient to have further I&D this evening Further wound care management by surgery and wound care Turn and reposition every [address] Cheatham, no further surgical inpatient needs and can follow up with him again in TCU 2. Dysphagia Continue with modified diet with pur?ed and nectar thickened liquids Speech therapy 3. Traumatic brain injury Patient had subsequent intracranial hemorrhage, subarachnoid hemorrhage, subdural hemorrhage and intraventricular hemorrhage Patient with right-sided hemiplegia Physical and occupational therapy 4. Coronary artery disease Patient has Q waves in the inferior leads but that is unchanged Continue with aspirin and metoprolol Asymptomatic at this time[] Discharge Diet: - - pureed. nectal thickened liquids. Discharge Activity: Return to Normal Activity Call your doctor if you observe: Fever of 101 or Higher, Shortness of breath Home Medications: Medications to take at Discharge Acetaminophen [Tylenol] 650 mg PO Q6H PRN PRN 01/16/18 Albuterol Aerosols [Ventolin Aerosols] 2.5 mg INHALATION Q2H PRN PRN 01/16/18 Amantadine [Symmetrel] 100 mg PO DAILY capsule 01/16/18 Amitriptyline HCl 100 mg PO QHS 01/16/18 Amlodipine [Norvasc] 10 mg PO DAILY tablet 01/16/18 Argin/Glut/Cahmb/Collag/Mv-Min [[place] Packet] 1 packet PO BID 01/16/18 Aspirin [Aspirin, Baby] 81 mg PO DAILY@0800 tab.chew 01/16/18 Bacitracin Ointment 1 applicatio TOPICAL BID 01/16/18 Bisacodyl [Laxative Suppository] 10 mg RC PRN PRN 01/16/18 Budesonide Aerosol [Pulmicort Respules] 0.5 mg INHALATION BID 01/16/18 Cholecalciferol (VIT D3) [Vitamin D3] 5,000 unit PO DAILY tablet 01/16/18 Collagenase [Santyl] 1 applic TOPICAL DAILY 01/16/18 Duloxetine Hcl [Cymbalta] 60 mg PO DAILY capsule 01/16/18 Furosemide [Lasix] 40 mg PO BIDLX tablet 01/16/18 Insulin Glargine [Lantus SoloStar Pen] 25 units SQ BID 01/16/18 Insulin Lispro [Humalog Benjie Kwikpen] 17 unit SQ TIDCM 01/16/18 Ipratropium/Albuterol Sulfate [Duoneb] 3 ml INHALATION Q6HWA.RT 01/16/18 Lansoprazole [Prevacid] 30 mg PO BID 01/16/18 Magnesium 400 mg PO TIDCM 01/16/18 Magnesium Oxide [Mag-Ox 400] 400 mg PO TIDCM tablet 01/16/18 Menthol/Lanolin/Calamine/Znox [Calmoseptine Ointment] 1 applic TOPICAL DAILY 01/16/18 Metoprolol Tartrate 50 mg PO BID 01/16/18 Metronidazole [Flagyl] 500 mg PO BID 01/16/18 Mineral Oil/Petrolatum,White [Eucerin] 1 applic TOPICAL BID PRN PRN 01/16/18 Nitroglycerin [Nitrostat] 0.4 mg SUBLINGUAL Q5M PRN 01/16/18 Pivot 1.5 Luis 480 ml GT TID 01/16/18 Polyethylene Glycol 3350 [Miralax] 17 gm PO DAILY 01/16/18 Potassium Chl 25 Meq Eff (For Liquid) 50 meq PO BID 01/16/18 Potassium Cloride Effervescent [Potassium Chl 25 Meq Eff (For Liquid)] 50 meq PO BIDCM tablet.eff 01/16/18 Pramipexole Di-HCl [Mirapex] 0.125 mg PO QHS 01/16/18 Pravastatin [Pravachol] 80 mg PO QHS 01/16/18 Tamsulosin HCl [Flomax] 0.4 mg PO DAILY 01/16/18 Vancomycin/0.9 % Sod Chloride [Vanco 1.75 G/250 ml-0.9% NaCl] 1.75 gm IV Q12H 01/16/18 Zolpidem Tartrate [Ambien] 5 mg PO QHS PRN PRN 01/16/18 traMADol [Ultram] 50 mg PO TID PRN 01/16/18 Primary Care Physician: Julissa Lamb MD [Primary Care Provider] - Within 2 Weeks Disposition: Intermediate facility Minutes spent on discharge:: 32 Patient Condition:: Fair Medical Necessity - Tobacco Use Smoking Status: Former smoker Tobacco Use: Non-smoker Meaningful Use Info Meaningful Use Diagnoses (Choose all that apply): None applicable Code Visit OBSV E&M: 30879 Observation care discharge
--- NOTE | 2018-01-16 10:23 | DS.PCM_ITS ---
Discharge Date and Diagnosis - Problem List Patient Problems: Active and Suspected Problems (Last Updated 01/15/18 @ 18:40 by Darnell Felix DO ) Infected decubitus ulcer (Acute) Infected decubitus ulcer (Acute) Date of Admission: 01/15/18 Date of Discharge: 01/16/18 - Primary Discharge Diagnosis Active and Suspected Problems (Last Updated 01/15/18 @ 18:40 by Darnell Felix DO ) Sepsis (Acute) Healthcare associated bacteremia due to Staphylococcus aureus (Acute) Infected decubitus ulcer (Acute) Infected decubitus ulcer (Acute) - Secondary Discharge Diagnosis Chronic Problems (Last Reviewed 01/15/18 @ 18:40 by Darnell Felix DO) Fall (Chronic) Traumatic brain injury (Chronic) Intraparenchymal hemorrhage of brain (Chronic) Subarachnoid hemorrhage (Chronic) Subdural hematoma (Chronic) Intraventricular hemorrhage (Chronic) Right scapula fracture (Chronic) Tobacco abuse (Chronic) Dysphagia (Chronic) Insomnia (Chronic) Vitamin D deficiency (Chronic) Depression (Chronic) GERD (gastroesophageal reflux disease) (Chronic) BPH (benign prostatic hyperplasia) (Chronic) Right hemiplegia (Chronic) Congestive heart failure (Chronic) Alcohol abuse (Chronic) Sleep apnea (Chronic) Diabetes mellitus (Chronic) Encounter for long-term current use of high risk medication (Chronic) Obstructive sleep apnea (Chronic) 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) S/P CABG x3 with right radial to LAD, SVG to RCA, and SVG to OM 2; stenting to LAD in February 2017; Presence of coronary angioplasty implant and graft (Chronic) Presence of aortocoronary bypass graft (Chronic) CABG X 3 2001 ?, Radial artery -LAD, SVG-RCA, SVG-OM2 Non-ST elevation myocardial infarction (NSTEMI), initial care episode (Chronic) 02/16/17 Ischemic cardiomyopathy (Chronic) Restless leg syndrome (Chronic) Hyperlipidemia (Chronic) Hypertensive emergency (Chronic) COPD (chronic obstructive pulmonary disease) (Chronic) Hypertension (Chronic) Morbid obesity (Chronic) CAD (coronary artery disease) (Chronic) Stented coronary artery (Chronic) [facility] w/AMV-[id number] LAD (grafts occluded X 3) 02/20/17 Former smoker (Chronic) quit February 2017 Diabetes mellitus type 2 in obese (Chronic) Hx of CABG (Chronic) CABG X3 rADIAL ARTERY-lad, svg-rca, svg-om2. MULTIPLE CORONARY STENTS Hospital Course and Treatment Consultations 01/15/18 18:58 Consult: Onc/Wound/row boss Routine Comment: Paula Cheatham Operations: - - I+D sacral wound Procedures: None Summary of Care Provided: The patient is a 67 year old M presents for I&D of neck parotic infected decubitus ulcer. Patient underwent an I&D of the wound on the by Dr. Arias. Patient was monitored on the floor overnight and had no acute issues. Plan is for the patient to return back to the transitional care unit to continue with therapy as well as wound care. 1. Infected sacral decubitus ulcer * s/p I+D on 01/15 * prevsiously Polymicrobial with MSSA, Enterococcus faecalis, and a strep species (01/07). Culture from 01/15 pending. * Continue with the antibiotics already prescribed by infectious disease with metronidazole and vancomycin * Patient to have further I&D this evening * Further wound care management by surgery and wound care * Turn and reposition every 2 hours * Per Dr. Cheatham, no further surgical inpatient needs and can follow up with him again in TCU 2. Dysphagia * Continue with modified diet with pur?ed and nectar thickened liquids * Speech therapy 3. Traumatic brain injury * Patient had subsequent intracranial hemorrhage, subarachnoid hemorrhage, subdural hemorrhage and intraventricular hemorrhage * Patient with right-sided hemiplegia * Physical and occupational therapy 4. Coronary artery disease * Patient has Q waves in the inferior leads but that is unchanged * Continue with aspirin and metoprolol * Asymptomatic at this time[] Discharge Diet: - - pureed. nectal thickened liquids. Discharge Activity: Return to Normal Activity Call your doctor if you observe: Fever of 101 or Higher, Shortness of breath Home Medications: Medications to take at Discharge Acetaminophen [Tylenol] 650 mg PO Q6H PRN PRN 01/16/18 Albuterol Aerosols [Ventolin Aerosols] 2.5 mg INHALATION Q2H PRN PRN 01/16/18 Amantadine [Symmetrel] 100 mg PO DAILY capsule 01/16/18 Amitriptyline HCl 100 mg PO QHS 01/16/18 Amlodipine [Norvasc] 10 mg PO DAILY tablet 01/16/18 Argin/Glut/Cahmb/Collag/Mv-Min [[place] Packet] 1 packet PO BID 01/16/18 Aspirin [Aspirin, Baby] 81 mg PO DAILY@0800 tab.chew 01/16/18 Bacitracin Ointment 1 applicatio TOPICAL BID 01/16/18 Bisacodyl [Laxative Suppository] 10 mg RC PRN PRN 01/16/18 Budesonide Aerosol [Pulmicort Respules] 0.5 mg INHALATION BID 01/16/18 Cholecalciferol (VIT D3) [Vitamin D3] 5,000 unit PO DAILY tablet 01/16/18 Collagenase [Santyl] 1 applic TOPICAL DAILY 01/16/18 Duloxetine Hcl [Cymbalta] 60 mg PO DAILY capsule 01/16/18 Furosemide [Lasix] 40 mg PO BIDLX tablet 01/16/18 Insulin Glargine [Lantus SoloStar Pen] 25 units SQ BID 01/16/18 Insulin Lispro [Humalog Benjie Kwikpen] 17 unit SQ TIDCM 01/16/18 Ipratropium/Albuterol Sulfate [Duoneb] 3 ml INHALATION Q6HWA.RT 01/16/18 Lansoprazole [Prevacid] 30 mg PO BID 01/16/18 Magnesium 400 mg PO TIDCM 01/16/18 Magnesium Oxide [Mag-Ox 400] 400 mg PO TIDCM tablet 01/16/18 Menthol/Lanolin/Calamine/Znox [Calmoseptine Ointment] 1 applic TOPICAL DAILY 04/25 Metoprolol Tartrate 50 mg PO BID 01/16/18 Metronidazole [Flagyl] 500 mg PO BID 01/16/18 Mineral Oil/Petrolatum,White [Eucerin] 1 applic TOPICAL BID PRN PRN 01/16/18 Nitroglycerin [Nitrostat] 0.4 mg SUBLINGUAL Q5M PRN 01/16/18 Pivot 1.5 Luis 480 ml GT TID 01/16/18 Polyethylene Glycol 3350 [Miralax] 17 gm PO DAILY 01/16/18 Potassium Chl 25 Meq Eff (For Liquid) 50 meq PO BID 01/16/18 Potassium Cloride Effervescent [Potassium Chl 25 Meq Eff (For Liquid)] 50 meq PO BIDCM tablet.eff 01/16/18 Pramipexole Di-HCl [Mirapex] 0.125 mg PO QHS 01/16/18 Pravastatin [Pravachol] 80 mg PO QHS 01/16/18 Tamsulosin HCl [Flomax] 0.4 mg PO DAILY 01/16/18 Vancomycin/0.9 % Sod Chloride [Vanco 1.75 G/250 ml-0.9% NaCl] 1.75 gm IV Q12H Zolpidem Tartrate [Ambien] 5 mg PO QHS PRN PRN 01/16/18 traMADol [Ultram] 50 mg PO TID PRN 01/16/18 Primary Care Physician: Julissa Lamb MD [Primary Care Provider] - Within 2 Weeks Disposition: Detention facility Minutes spent on discharge:: 32 Patient Condition:: Fair Medical Necessity - Tobacco Use Smoking Status: Former smoker Tobacco Use: Non-smoker Meaningful Use Info Meaningful Use Diagnoses (Choose all that apply): None applicable Code Visit OBSV E&M: 01703 Observation care discharge
== END 2018-01-16 11:36 | disposition skilled nursing facility (03) | DRG 574 ==
LOC: SDC 01-16 07:52 → MS3 01-18 08:50
PROVIDERS: Family Provider Family Medicine; PCP Family Medicine; Visit Provider Surgery
PROC: 0WBL0ZZ Excision of Lower Back, Open Approach (ICD-10-PCS; principal; 2018-01-15 10:25)
DX: L89.159 Pressure ulcer of sacral region, unspecified stage (principal); I96 Gangrene, not elsewhere classified; G81.01 Flaccid hemiplegia affecting right dominant side; S06.6X9S Traumatic subarachnoid hemorrhage with loss of consciousness of unspecified duration, sequela; W19.XXXS Unspecified fall, sequela; S06.5X9S Traumatic subdural hemorrhage with loss of consciousness of unspecified duration, sequela; I25.10 Atherosclerotic heart disease of native coronary artery without angina pectoris; R13.10 Dysphagia, unspecified; Z87.891 Personal history of nicotine dependence
CPT/HCPCS: 36415; 80048; 82962; 85025; 87070; 87075; 87076; 87077; 87186; 87205; 94640; 94668; J7040

== ENCOUNTER → 2018-01-21 09:21 | Outpatient (CLI) | payer MEDICARE, SELFPAY ==
[2017-02-20 12:18] VITALS: BMI 46.4
== END ==
PROVIDERS: Family Provider Family Medicine; PCP Family Medicine; Visit Provider Family Medicine Geriatric Medicine
DX: L89.154 Pressure ulcer of sacral region, stage 4 (principal)
CPT/HCPCS: 72192

== ENCOUNTER 2018-01-22 09:09 | Inpatient (IN) | payer MEDICARE, OTHER, SELFPAY ==
[2017-02-20 12:18] VITALS: BMI 46.4
[2018-01-22] VITALS (13 sets, daily range): BP systolic 113–142; BP diastolic 52–74; PULSE 84–104; RESP 18–20; TEMP 36.3–37.4; O2SAT 95–98
[2018-01-22 06:56] LABS: Hematocrit 26.6 % (40-54); Hemoglobin 8.7 g/dl (13.0-16.5); Mean Corp Hgb Conc 32.7 g/gl (32-36); Mean Corpuscular Hgb 31.9 pg (27.0-32.0); Mean Corpuscular Volume 97.4 fL (80-94); Platelet Count 337 K/mm3 (150-450); RBC Distribution Width CV 14.5 % (11.6-14.6); RBC Distribution Width SD 48.1 fl (35.1-43.9); Red Blood Count 2.73 M/mm3 (4.6-6.2); Scan Indicated on CBC? Y/N NO; White Blood Count 10.1 K/mm3 (4.4-11.0)
[2018-01-22 07:00] LABS: Bedside Glucose 172 mg/dL (70-110)
[2018-01-22 07:05] LABS: International Normalized Ratio 1.1; Prothrombin Time (Protime)PT. 14.5 SECONDS (11.7-14.9)
[2018-01-22 07:06] LABS: Partial Thromboplast Time 31.3 Seconds (24.1-36.2)
[2018-01-22 07:12] LABS: AST(SGOT) 12 U/L (15-37); Alanine Aminotransfer ALT/SGPT 25 U/L (16-61); Albumin, Serum 2.5 g/dL (3.2-5.0); Alkaline Phosphatase 75 U/L (45-117); Globulin 4.1 g/dL (2.2-4.2); Protein, Total 6.6 g/dL (6.4-8.2)
--- NOTE | 2018-01-22 07:30 | PRES_PTH ---
PATIENT: FABY GARCIA LOC: [facility] U#:[id number] AGE/SX: 67/M ROOM: [facility] RE01/22/[address]: Dr. Clyde Mathews MD : 1950 BED: 1 DIS: 02/02/2018 SPEC #: [id number] RECD: 01/22/18 10:20 STATUS: CARLOS ALBERTO NICHOLS #: [id number] MARTÍN: 01/22/18 07:[address]: Scott Juarez DEPT: SURGICAL PATHOLOGY RECD BY: Isidro Mac ENTERED: 01/22/18 11:25 SP TYPE: PRESS SORE OTHR DR: MD Dr. Patricia Whipple MD Dr. Robert Leininger, MD Tissues: A - Ischium, NOS B - Ischium, NOS Procedures: Decalcification bone/plaque Surgery Specimen Level IV HEADER OPERATION: Excision infected sacral pressure sore stage IV with partial PRE-OP DIAGNOSIS: Infected sacral pressure sore TISSUE SUBMITTED: A. Bone sacral pressure sore, B. tissue sacral pressure sore MICROSCOPIC DIAGNOSIS A. Sacral bone, biopsy: Fragments of bone and cartilage with focal reactive and reparative change. No evidence of osteomyelitis. B. Skin and soft tissue, sacral region, excision: Ulceration with associated acute and chronic inflammation, granulation and fat necrosis. AM:yeyo 01/27/18 MICROSCOPIC DESCRIPTION Slides are reviewed. GROSS DESCRIPTION A - Received in fixative is one container labeled with the patient's name and designated bone sacral pressure sore. The specimen consists of multiple irregular fragments of pink-weston bone and soft tissue that in aggregate measure 5 x 3 x 0.2 cm. The specimen is totally submitted in two cassettes after decalcification. B - Received in fixative is one container labeled with the patient's name and designated tissue sacral pressure sore. The specimen consists of three irregular fragments of skin and soft tissue that in aggregate measure 11 x 7 x 2.5 cm. The larger fragment appears to contain an ulcerated area measuring 6 cm in greatest dimension and extending to a depth of possibly 2 cm. Serial sections do not reveal mass lesions. Warehouse Delivery Manager sections are submitted in two cassettes. / AM:yeyo 01/22/18 TC:2 CPT: 96832 x2, 04789
[2018-01-22 07:51] LABS: Hemoglobin A1c 8.3 % (4.2-6.3)
--- NOTE | 2018-01-22 09:00 | PCM.IMDPSTOP ---
Immediate Post-Op Note Date of Procedure: 01/22/18 Primary Surgeon/Physician: Scott Juarez orthodontic laboratory technician: None Pre-Operative Diagnosis: 1. Sacral pressure sore, Stage IV. 2. Traumatic brain injury. 3. Right sided hemiplegia. 4. Osteomyelitis. Post-Operative Diagnosis: Same. Surgery/Procedure Performed:: Excision sacral pressure sore, Stage IV, with partial ostectomy for osteomyelitis. Description of Surgical Findings:: The patient is a 67 year old M admitted to's TCU for rehabilitation following a recent fall with intracranial bleeds and right-sided paraplegia. During this time, he developed a sacral pressure sore. He is complaints of pain in his sacral area. Dr. Arias took the patient to surgery on 01/15/18 where a sacral debridement was done. She reports there was bleeding in the subcutaneous tissue after removing some nonviable tissue. Wet to dry dressings were started. Preoperative cultures showed Enterococcus faecalis, Staphylococcus aureus, and Streptococcus pseudoporcinus. Operative culture showed E.coli. He is currently on Vancomycin, Ceftriaxone, and Flagyl. Over the next couple of days, some of the tissue in the wound did not look healthy with some evidence of fat necrosis. Bone is palpable. With the polymicrobial nature of the infection, there is concern about extension of the infection down to the bone. I was asked to evaluate this patient for surgical options for further treatment. Today the patient underwent excision sacral pressure sore, Stage IV, with partial ostectomy for osteomyelitis. Size of defect sacral area - 13 x 7 x 3 cm. Estimated Blood Loss: 150 ml. Specimen's removed: 1. Sacral pressure sore soft tissue to Pathology and Microbiology. 2. Sacral pressure sore bone to Pathology and Microbiology. Drains: None. Type of Anesthesia:: General - Admit VTE Documentation VTE Present on Admission: No VTE Mechan Device Prophylaxis: SCD's VTE Pharm Prophylaxis ordered?: No
[2018-01-22 09:26] LABS: Bedside Glucose 212 mg/dL (70-110)
--- NOTE | 2018-01-22 10:35 | NURSING ---
Pt just returned to room from surgery. talked with . Dr Juarez had let this nurse know that patient will need a colostomy. is aware. patient appears comfortable at this time. pt will most likely need a wound VAC to the sacral wound as well. had previously discussed options for possible LTAC at discharge for a short time prior to patient returning to the assisted. will continue to follow.
--- NOTE | 2018-01-22 11:20 | PCM.PN.HOSP ---
Subjective: Medical management consult: 57-year-old male with multiple comorbidities, history of traumatic brain injury after a fall, right-sided paraplegia, recurrent admissions to the hospital for subsequent complication. He was recently admitted and discharged to the transitional care unit for infected sacral decubitus ulcer. Operative cultures had shown E. coli. Patient has been followed in the transitional care unit by infectious disease, plastic surgeon and wound nurse. He is being admitted today for extensive wound debridement. There is a suspicion of possible osteomyelitis with palpable bone on exam. IV vancomycin, ceftriaxone and p.o. Flagyl. Has past history of positive wound cultures for MSSA, E faecalis, strep. Since was seen in the postoperative.. He denied any pain at the time of exam. Denied any fever or chills or dizziness or palpitations. Vitals/I&O's: Vital Signs Temp Pulse Resp BP Pulse Ox 97.9 F 91 18 130/60 H 95 01/22/18 10:40 01/22/18 10:40 01/22/18 10:40 01/22/18 10:40 01/22/18 10:40 Oxygen Delivery Method Room Air Weight: 106.141 kg Body Mass Index (BMI) 30.0 Finger Stick Blood Glucose 212 Intake and Output for Last 24 Hours 01/20/18 01/21/18 01/22/18 23:59 23:59 23:59 Intake Total 1400 / 1400 Output Total 350 / 350 Balance 1050 / 1050 General: Alert, Oriented x3, Cooperative, No apparent distress HEENT: Atraumatic, PERRLA, EOMI, Normocephalic Oral: Moist Mucosa Neck: Supple, No JVD, Negative Carotid Bruits Lungs: Clear to auscultation, Normal air movement Cardiovascular: Regular rate, Regular Rhythm, Normal S1, Normal S2, No murmurs Abdomen: Bowel Sounds Present, Soft, Non Tender, Non-Distended Extremities: No edema Skin: No rashes, No breakdown Musculoskeletal: No Tenderness to Palpation of Joints or Extremities Lymphatic: No Cervical, Supraclavicular, or Inguinal Adenopathy Neurological: Cranial nerves II-XII grossly intact, Motor Exam 5/5 strength throughout - except for right sided flaccid Wound dressing, dry, intact and clean Psych/Mental Status: Normal Affect, Appropriate Laboratory Results 01/22/18 06:35: WBC 10.1, RBC 2.73 L, Hgb 8.7 L, Hct 26.6 L, MCV 97.4 H, MCH 31.9, MCHC 32.7, RDW 14.5, RDW Differential 48.1 H, Plt Count 337, MPV 10.0 01/22/18 06:35: PT 14.5, INR 1.1, APTT 31.3 01/22/18 06:35: Total Bilirubin 0.20, Direct Bilirubin 0.10, AST 12 L, ALT 25, Alkaline Phosphatase 75, Total Protein 6.6, Albumin 2.5 L, Globulin 4.1 01/22/18 06:35: Hemoglobin A1c 8.3 H 01/22/18 06:35: Blood Type O NEGATIVE, Antibody Screen NEGATIVE 01/22/18 06:50: POC Glucose 172 H 01/22/18 09:21: POC Glucose 212 H Current Medications Acetaminophen (Tylenol) 650 mg PO Q6H PRN PRN PRN Reason: pain/fever Albuterol Sulfate (Ventolin Aerosols) 2.5 mg INHALATION Q2H PRN PRN PRN Reason: SHORTNESS OF BREATH Albuterol/Ipratropium (Duoneb) 3 ml INHALATION Q6HWA.RT [facility] Amantadine HCl (Symmetrel) 100 mg PO DAILY [facility] Amitriptyline HCl (Elavil) 100 mg PO QHS [facility] Amlodipine Besylate (Norvasc) 10 mg PO DAILY [facility] Budesonide (Pulmicort Aerosol) 0.5 mg INHALATION BID [facility] Cholecalciferol (Vitamin D) 5,000 unit PO DAILY [facility] Diazepam (Valium) 2 mg PO 4X/DAY PRN PRN PRN Reason: SPASMS Duloxetine HCl (Cymbalta) 60 mg PO DAILY [facility] Furosemide (Lasix) 40 mg PO BIDLX [facility] Hydromorphone HCl (Dilaudid Inj) 0.5 mg IV Q4H PRN PRN PRN Reason: SEVERE PAIN (6-1010) Lactated Ringer's () 1,000 mls @ 60 mls/hr IV .[id number] [facility] Piperacillin Sod/Tazobactam Sod (Zosyn) 3.375 gm in 50 mls @ 12.5 mls/hr IV Q8 [facility] Lidocaine/Epinephrine (Lidocaine 1%/Epi 1:100,000 Mdv) 0 ml INFILT UD PRN Last Admin: 01/22/18 08:08 Dose: 10 ml Magnesium Oxide (Mag-Ox 400) 400 mg PO TIDCM [facility] Metoprolol Tartrate (Lopressor (Beta Devante)) 50 mg PO BID [facility] Nitroglycerin (Nitrostat) 0.4 mg SUBLINGUAL Q5M PRN PRN Reason: Chest Pain Non-Formulary Medication (Insulin Lispro [Humalog Benjie Kwikpen]) 17 unit SQ TIDCM [facility] Non-Formulary Medication (Lansoprazole) 30 mg PO BID [facility] Non-Formulary Medication (Pivot 1.5 Luis [Pivot 1.5 Luis]) 480 ml GT TID [facility] Nutritional Formula ([place] - [place] Flavor) 1 packet PO BIDCM [facility] Ondansetron HCl (Zofran) 4 mg IV Q6H PRN PRN PRN Reason: NAUSEA Oxycodone HCl (Oxyir) 10 mg PO Q4H PRN PRN PRN Reason: SEVERE PAIN (6-03/17) Polyethylene Glycol (Miralax) 17 gm PO DAILY [facility] Potassium Bicarb/Potassium Chloride (Potassium Chl 25 Meq Eff (For Liquid)) 50 meq PO BIDCM [facility] Pramipexole Dihydrochloride (Mirapex) 0.125 mg PO QHS [facility] Pravastatin Sodium (Pravachol) 80 mg PO QHS [facility] Promethazine HCl (Phenergan Tablet) 25 mg PO Q4H PRN PRN PRN Reason: NAUSEA/VOMITING Tamsulosin HCl (Flomax) 0.4 mg PO QHS [facility] Tramadol HCl (Ultram) 50 mg PO TID PRN PRN Reason: PAIN Zolpidem Tartrate (Ambien (Generic)) 5 mg PO QHS PRN PRN PRN Reason: SLEEP Medical Necessity - Tobacco Use Smoking Status: Former smoker Assessment/Plan All Active Problems (Last Updated 01/15/18 @ 18:40 by Darnell Felix DO) Pressure injury of sacral region, stage 4 (Acute) Alcohol intoxication (Resolved) Acute respiratory failure (Acute) Aspiration pneumonia (Acute) Acute and chronic respiratory failure with hypoxia (Acute) Sepsis (Resolved) Healthcare associated bacteremia due to Staphylococcus aureus (Resolved) Infected decubitus ulcer (Acute) Infected decubitus ulcer (Acute) FUO (fever of unknown origin) (Acute) Demand ischemia (Resolved) Systolic CHF, acute (Acute) Acute respiratory failure with hypoxia and hypercarbia (Resolved) Multifocal community-acquired pneumonia (Resolved) Severe sepsis (Resolved) 70-year-old male with multiple comorbidities including traumatic brain injury with right-sided paraplegia, recurrent admissions for infected sacral decubital ulcer comes in for extensive I&D. 1. Infected sacral decubitus ulcer/possible osteomyelitis, post wound debridement today History of MSSA, E. coli, strep in previous cultures, ID consulted, on IV Zosyn 2. Type II DM, on insulin, blood sugars controlled, will continue monitoring on current regimen with Accu-Cheks 3. Anemia, macrocytic, hemoglobin is 8.7, appears stable, would check folate and B12 4. History of traumatic brain injury, with right paraplegia, PT/OT to evaluate 5. CAD, on metoprolol, off aspirin 6. DVT PPx- SCDs, not on anticoagulation per primary. Code Visit Inpatient E&M: 98966 Subs Hosp L2
[2018-01-22] MEDS: Ipratropium/Albuterol Sulfate 3 ML AMPUL.NEB INHALATION (11:26)
[2018-01-22] MEDS: Budesonide Respules 0.5 MG/2 ML AMPUL.NEB. INHALATION (11:29)
--- NOTE | 2018-01-22 12:40 | PCM.PN.ID ---
Subjective: Feeling ok s/p OR this AM. No fever, no abd pain. - Physical Exam General: Alert, Cooperative Lungs: Clear to auscultation, Normal air movement Cardiovascular: Regular rate, Regular Rhythm Abdomen: Soft, Non Tender, Non-Distended Skin: No rashes Vital Signs Temp Pulse Resp BP Pulse Ox 97.9 F 97 18 130/60 H 95 01/22/18 10:40 01/22/18 11:29 01/22/18 11:29 01/22/18 10:40 01/22/18 10:40 Oxygen Delivery Method Room Air Weight: 106.141 kg Body Mass Index (BMI) 30.0 Finger Stick Blood Glucose 212 Intake and Output for Last 24 Hours 01/20/18 01/21/18 01/22/18 23:59 23:59 23:59 Intake Total 1400 / 1400 Output Total 350 / 350 Balance 1050 / 1050 Laboratory Tests Past 24 Hrs 01/22/18 01/22/18 01/22/18 06:35 06:35 06:35 WBC 10.1 RBC 2.73 L Hgb 8.7 L Hct 26.6 L MCV 97.4 H MCH 31.9 MCHC 32.7 RDW 14.5 RDW Differential 48.1 H Plt Count 337 MPV 10.0 PT 14.5 INR 1.1 APTT 31.3 Hemoglobin A1c Total Bilirubin 0.20 Direct Bilirubin 0.10 AST 12 L ALT 25 Alkaline Phosphatase 75 Total Protein 6.6 Albumin 2.5 L Globulin 4.1 Blood Type Antibody Screen 01/22/18 01/22/18 06:35 06:35 WBC RBC Hgb Hct MCV MCH MCHC RDW RDW Differential Plt Count MPV PT INR APTT Hemoglobin A1c 8.3 H Total Bilirubin Direct Bilirubin AST ALT Alkaline Phosphatase Total Protein Albumin Globulin Blood Type O NEGATIVE Antibody Screen NEGATIVE POC Glucose 01/22/18 01/22/18 09:21 06:50 POC Glucose 212 H 172 H Medical Necessity - Tobacco Use Smoking Status: Former smoker Route of nutrition/ use of supplements: [] Nutritional Intake: [] IV Site: [] Lane Catheter: [] - Assessment/Plan Antibiotics: [] Assessment/Plan: [] Infected sacral decub ulcer - wound cx with mssa, e.faecalis, strep. Recent admit with aspiration pneumonia and sputum cx with mssa. H/o hives with PCN, but tolerated zosyn and cefepime while at [facility]. Surg cx with ecoli. With suspected osteo, treat with zosyn to cover the organisms seen. Taken to OR by Dr. Juarez today. Will follow, d/w nursing.
--- NOTE | 2018-01-22 12:47 | CASEMGMT ---
Social Work Pt was admitted to acute hospital from TCU. Met with pt and in room. Pt states they are planning return to TCU upon discharge from acute hospital. Pt states physician has discussed would vac and possible colostomy the first part of next week. SW informed family that name will be placed on the TCU list. New precert will be needed prior to returning to TCU. Phone call to [facility] and information provided. Pt on TCU list and they can accept back. SW to follow for placement. Plan: TCU, pending insurance KANDACE Molina
[2018-01-22] MEDS: Insulin Lispro 100 UNIT/ML INSULN.PEN 7 UNIT SC ×2 (12:54→17:00)
[2018-01-22] MEDS: Amantadine 100 MG Capsule PO (12:56)
[2018-01-22] MEDS: Pantoprazole Sodium 40 MG Tablet PO (12:56)
[2018-01-22] MEDS: Magnesium Oxide 400 MG Tablet PO ×2 (12:56→16:58)
[2018-01-22] MEDS: Furosemide 40 MG Tablet PO ×2 (12:56→17:01)
[2018-01-22] MEDS: Metoprolol Tartrate 50 MG Tablet 150 MG PO ×2 (14:43→21:25)
[2018-01-22] MEDS: Piperacil/Tazobactam 3.375 GM/50 ML ML IV ×2 (14:44→21:26)
[2018-01-22 16:51] LABS: Bedside Glucose 165 mg/dL (70-110)
[2018-01-22] MEDS: Lactated Ringers 1,000 ML 60 ML IV (19:06)
[2018-01-22] MEDS: Amitriptyline 25 MG Tablet PO (21:25)
[2018-01-22] MEDS: Pramipexole Di-HCl 0.25 MG Tablet PO (21:25)
[2018-01-22] MEDS: Pravastatin 80 MG Tablet PO (21:25)
[2018-01-22] MEDS: Tamsulosin HCl 0.4 MG Capsule PO (21:25)
--- NOTE | 2018-01-22 22:34 | PCM.OPRPT ---
Report of Operation Date of Procedure: 01/22/18 Pre-Operative Diagnosis: 1. Sacral pressure sore, Stage IV. 2. Traumatic brain injury. 3. Right sided hemiplegia. 4. Osteomyelitis. Post-Operative Diagnosis: Same. Surgery/Procedure Performed:: Excision sacral pressure sore, Stage IV, with partial ostectomy for osteomyelitis. Description of Surgical Findings:: The patient is a 67 year old M admitted to's TCU for rehabilitation following a recent fall with intracranial bleeds and right-sided paraplegia. During this time, he developed a sacral pressure sore. He is complaints of pain in his sacral area. Dr. Arias took the patient to surgery on 01/15/18 where a sacral debridement was done. She reports there was bleeding in the subcutaneous tissue after removing some nonviable tissue. Wet to dry dressings were started. Preoperative cultures showed Enterococcus faecalis, Staphylococcus aureus, and Streptococcus pseudoporcinus. Operative culture showed E.coli. He is currently on Vancomycin, Ceftriaxone, and Flagyl. Over the next couple of days, some of the tissue in the wound did not look healthy with some evidence of fat necrosis. Bone is palpable. With the polymicrobial nature of the infection, there is concern about extension of the infection down to the bone. I was asked to evaluate this patient for surgical options for further treatment. Patient was informed of the risks and complications of the procedure including alternatives to surgery. These were discussed with the patient personally. Patient voices understanding and wishes to proceed. Size of defect sacral area - 13 x 7 x 3 cm. assistant purchasing manager: None Type of Anesthesia:: General Specimen's removed: 1. Sacral pressure sore soft tissue to Pathology and Microbiology. 2. Sacral pressure sore bone to Pathology and Microbiology. Drains: None. Estimated Blood Loss (mL): 150 ml. Description of Procedure: Patient was taken to the OR in supine position and was placed under general anesthesia. He was then placed in the prone position. His sacral and gluteal areas were prepped and draped in the usual fashion. SCD's were placed for DVT prophylaxis. Perioperative antibiotics were given intravenously. Using xylocaine with epinephrine, the sacral pressure sore was infiltrated. After waiting 5 minutes for the anesthetic to take effect, I excised the sacral pressure sore with a scalpel down through the subcutaneous tissue and muscle. A lot of fat necrosis was present. No pus was seen. The muscle looked a little bruised but viable. There was nonviable tissue adherent to the bone which was excised. With the extension of the pressure sore down to the bone, a partial ostectomy was then done using an osteotome and a mallet in a tangential fashion. Rongeurs were also used. A rasp was used to smooth out the bony edges. Half the soft tissue and half the bone will be sent to Pathology for analysis to rule out carcinoma and to evaluate for osteomyelitis. Half the soft tissue and half the bone will be sent to Microbiology for culture. A positive culture may necessitate antibiotic modification. The wound was irrigated with saline. Hemostasis was obtained with electrocautery The size of the sacral defect after the excision was 13 x 7 x 3 cm. The wound is very close to the anal opening. Stool contamination may be an issue postop in which case a diverting colostomy would be needed. The wound was then dressed with Mepitel nonadherent dressing followed by Betadine and Kerlix followed by dry Kerlix and ABD pads for a compression dressing. Patient tolerated the procedure well and was sent to PACU in satisfactory condition. He will be sent upstairs for continued postop care. The VAC will be placed tomorrow. His preop Hgb was 8.7. Not much blood loss was seen today, about 150 ml. Will check another Hgb and if it continues to drift downward, then he will need PRBC. In the meantime, will start Iron supplements. Grafts/Implants Used: None. - Complications None. - Admit VTE Documentation VTE Present on Admission: No VTE Mechan Device Prophylaxis: SCD's VTE Pharm Prophylaxis ordered?: No Code Visit Surgery Charges CPT - 57016 ICD-10 - L89.154, M46.28, S06.9x9A, G81.91
[2018-01-22 23:56] LABS: Bedside Glucose 204 mg/dL (70-110)
[2018-01-23] VITALS (9 sets, daily range): BP systolic 108–138; BP diastolic 55–70; PULSE 89–120; RESP 18–20; TEMP 36.7–38.4; O2SAT 94–98
--- NOTE | 2018-01-23 03:31 | NURSING ---
Pt has history of sleep apnea. He advised me that he sometimes wears oxygen at night. He is on a continuous pulse ox and his saturations would drop really low (like 50's) then pop right back up to 99%. He would appear to be fine when I would check on him but O2 placed at 2L via n/c as precaution. Will continue to monitor.
--- NOTE | 2018-01-23 03:55 | NURSING ---
Saturations running consistently in the upper 90's with the supplemental oxygen.
[2018-01-23] MEDS: Piperacil/Tazobactam 3.375 GM/50 ML ML IV ×3 (05:33→22:53)
[2018-01-23] MEDS: Metoprolol Tartrate 50 MG Tablet 150 MG PO ×3 (05:33→22:54)
[2018-01-23] MEDS: 0.9% NaCl PICC Flush 10 ML IV ×2 (05:36→05:37)
[2018-01-23 05:48] LABS: Hematocrit 29.5 % (40-54); Hemoglobin 9.5 g/dl (13.0-16.5); Mean Corp Hgb Conc 32.2 g/gl (32-36); Mean Corpuscular Hgb 31.3 pg (27.0-32.0); Mean Platelet Vol. 9.8 fl (6.2-12.0); Platelet Count 308 K/mm3 (150-450); RBC Distribution Width CV 14.7 % (11.6-14.6); Red Blood Count 3.04 M/mm3 (4.6-6.2); Scan Indicated on CBC? Y/N NO; White Blood Count 9.6 K/mm3 (4.4-11.0)
[2018-01-23 06:01] LABS: Anion Gap 9 (5-15); BUN 12 mg/dL (7-18); BUN/Creat Ratio 25.1 RATIO (10-20); Chloride 99 mmol/L (98-107); Creatinine, Serum 0.48 mg/dL (0.70-1.30); EST Glomerular Filtration Rate 185 mL/min (>60); Est Glom Filt Rate - Afr Amer 224 mL/min (>60); Estimated Creatinine Clearance 83.34 ml/min; Glucose 174 mg/dL (74-106); Potassium 3.6 mmol/L (3.5-5.1); Sodium Level 138 mmol/L (136-145)
[2018-01-23] MEDS: Budesonide Respules 0.5 MG/2 ML AMPUL.NEB. INHALATION (06:48)
[2018-01-23 08:46] LABS: Bedside Glucose 182 mg/dL (70-110)
--- NOTE | 2018-01-23 09:42 | PCM.PN.HOSP ---
Subjective: Seen and examined. Patient has history of right-sided hemiplegia from stroke and later on he fell down and unfortunately had intracranial bleed as he was on blood thinner and sustained traumatic brain injury. As per the , his right lower extremity recovered some movement but RUE has contracture and spasticity Patient had sacral decubitus ulcer stage IV and had excision of sacral decubitus ulcer with partial ostectomy. She could not sleep last night as he did not had on CPAP. He has history of JIM Vitals/I&O's: Vital Signs Temp Pulse Resp BP Pulse Ox 98.4 F 89 20 H 138/67 H 96 01/23/18 02:56 01/23/18 06:48 01/23/18 06:48 01/23/18 02:56 01/23/18 06:48 Oxygen Flow Rate (L/min) 2 Oxygen Delivery Method Nasal Cannula Weight: 234 lb Body Mass Index (BMI) 30.0 Finger Stick Blood Glucose 212 Intake and Output for Last 24 Hours 01/21/18 01/22/18 01/23/18 23:59 23:59 23:59 Intake Total 2300 / 2300 1625 / 1625 Output Total 3300 / 3300 2500 / 2500 Balance -1000 / -1000 -875 / -875 General: Alert, Oriented x3, Cooperative HEENT: Atraumatic, PERRLA, EOMI, Normocephalic Neck: Supple, No JVD, Negative Carotid Bruits Lungs: Clear to auscultation, No rhonchi, No wheeze, Diminished Cardiovascular: Regular rate, Regular Rhythm, Normal S1, Normal S2, No murmurs Abdomen: Bowel Sounds Present, Soft, Non Tender, Non-Distended Extremities: Capillary Refill Less than 3 Seconds, Edema - Mild dependent edema Skin: Ulcer/ Wound - Sacral decubitus ulcer stage IV with dressing on. Dressing is dry Musculoskeletal: No Tenderness to Palpation of Joints or Extremities, Arthritic Changes Neurological: Cranial nerves II-XII grossly intact, - - Right-sided hemiplegia Psych/Mental Status: Normal Affect, Appropriate Microbiology Past 72 Hours 01/22/18 Unknown Tissue - Sacral Gram Stain - Final 01/22/18 Unknown Bone - Site Gram Stain - Final Laboratory Results 01/22/18 06:35: Blood Type O NEGATIVE, Antibody Screen NEGATIVE 01/22/18 16:41: POC Glucose 165 H 01/22/18 21:30: POC Glucose 204 H 01/23/18 05:35: WBC 9.6, RBC 3.04 L, Hgb 9.5 L, Hct 29.5 L, MCV 97.0 H, MCH 31.3, MCHC 32.2, RDW 14.7 H, RDW Differential 48.0 H, Plt Count 308, MPV 9.8 01/23/18 05:35: Sodium 138, Potassium 3.6, Chloride 99, Carbon Dioxide 30.0, Anion Gap 9, BUN 12, Creatinine 0.48 L, Estim Creat Clear Calc 83.34, Est GFR (MDRD) Af Amer 224, Est GFR (MDRD) Non-Af 185, BUN/Creatinine Ratio 25.1 H, Glucose 174 H, Calcium 9.0 01/23/18 07:52: POC Glucose 182 H Current Medications Acetaminophen (Tylenol) 650 mg PO Q6H PRN PRN PRN Reason: pain/fever Albuterol/Ipratropium (Duoneb) 3 ml INHALATION Q2H PRN PRN PRN Reason: SHORTNESS OF BREATH Amantadine HCl (Symmetrel) 100 mg PO DAILY [facility] Last Admin: 01/22/18 12:56 Dose: 100 mg Amitriptyline HCl (Elavil) 25 mg PO QHS [facility] Stop: 01/26/18 22:01 Last Admin: 01/22/18 21:25 Dose: 25 mg Budesonide (Pulmicort Aerosol) 0.5 mg INHALATION BID [facility] Last Admin: 01/23/18 06:48 Dose: 0.5 mg Diazepam (Valium) 2 mg PO 4X/DAY PRN PRN PRN Reason: SPASMS Furosemide (Lasix) 40 mg PO BIDLX [facility] Last Admin: 01/22/18 17:01 Dose: 40 mg Hydromorphone HCl (Dilaudid Inj) 0.5 mg IV Q4H PRN PRN PRN Reason: SEVERE PAIN (6-10/10) Lactated Ringer's () 1,000 mls @ 60 mls/hr IV .[id number] [facility] Last Admin: 01/22/18 19:06 Dose: 60 mls/hr Piperacillin Sod/Tazobactam Sod (Zosyn) 3.375 gm in 50 mls @ 12.5 mls/hr IV Q8 [facility] Last Admin: 01/23/18 05:33 Dose: 12.5 mls/hr Insulin Glargine (Lantus (Bkc)) 15 units SC 0800,2200 [facility] Last Admin: 01/22/18 21:26 Dose: 15 u Insulin Human Lispro (Humalog Kwikpen (Bkc)) 7 unit SC TIDCM [facility] Last Admin: 01/22/18 17:00 Dose: 7 u Magnesium Oxide (Mag-Ox 400) 400 mg PO TIDCM [facility] Last Admin: 01/22/18 16:58 Dose: 400 mg Metoprolol Tartrate (Lopressor (Beta Devante)) 150 mg PO TID [facility] Last Admin: 01/23/18 05:33 Dose: 150 mg Nitroglycerin (Nitrostat) 0.4 mg SUBLINGUAL Q5M PRN PRN Reason: Chest Pain Nutritional Formula ([place] - [place] Flavor) 1 packet PO BIDCM [facility] Last Admin: 01/22/18 16:56 Dose: 1 packet Ondansetron HCl (Zofran) 4 mg IV Q6H PRN PRN PRN Reason: NAUSEA Oxycodone HCl (Oxyir) 10 mg PO Q4H PRN PRN PRN Reason: SEVERE PAIN (6-10/10) Pantoprazole Sodium (Protonix) 40 mg PO DAILY [facility] Last Admin: 01/22/18 12:56 Dose: 40 mg Polyethylene Glycol (Miralax) 17 gm PO DAILY [facility] Last Admin: 01/22/18 12:55 Dose: Not Given Potassium Bicarb/Potassium Chloride (Potassium Chl 25 Meq Eff (For Liquid)) [facility] Last Admin: 01/22/18 17:00 Dose: 50 meq Pramipexole Dihydrochloride (Mirapex) 0.25 mg PO QHS [facility] Last Admin: 01/22/18 21:25 Dose: 0.25 mg Pravastatin Sodium (Pravachol) 80 mg PO QHS [facility] Last Admin: 01/22/18 21:25 Dose: 80 mg Promethazine HCl (Phenergan Tablet) 25 mg PO Q4H PRN PRN PRN Reason: NAUSEA/VOMITING Sodium Chloride () 10 ml IV UD PRN PRN Reason: PICC FLUSH Last Admin: 01/23/18 05:37 Dose: 10 ml Tamsulosin HCl (Flomax) 0.4 mg PO QHS [facility] Last Admin: 01/22/18 21:25 Dose: 0.4 mg Tramadol HCl (Ultram) 50 mg PO TID PRN PRN PRN Reason: PAIN Zolpidem Tartrate (Ambien (Generic)) 5 mg PO QHS PRN PRN PRN Reason: SLEEP Medical Necessity - Tobacco Use Smoking Status: Former smoker Assessment/Plan All Active Problems (Last Updated 01/15/18 @ 18:40 by Darnell Felix DO) Pressure injury of sacral region, stage 4 (Acute) Alcohol intoxication (Resolved) Acute respiratory failure (Acute) Aspiration pneumonia (Acute) Acute and chronic respiratory failure with hypoxia (Acute) Sepsis (Resolved) Healthcare associated bacteremia due to Staphylococcus aureus (Resolved) Infected decubitus ulcer (Acute) Infected decubitus ulcer (Acute) FUO (fever of unknown origin) (Acute) Demand ischemia (Resolved) Systolic CHF, acute (Acute) Acute respiratory failure with hypoxia and hypercarbia (Resolved) Multifocal community-acquired pneumonia (Resolved) Severe sepsis (Resolved) 70-year-old male with multiple comorbidities including history of a stroke with residual right-sided hemiplegia and then traumatic brain injury and intracranial bleed after fall and on blood thinner, aspiration pneumonia, sleep apnea on CPAP, coronary artery disease status post CABG in 2001 and non-STEMI in February 2017, chronic systolic heart failure and other multiple comorbidities including hypertension, morbid obesity and diabetes mellitus type 2 was admitted with sacral decubitus ulcer stage IV with osteomyelitis. 1. Infected sacral decubitus ulcer stage IV with osteomyelitis status post excision of infected necrotic tissue and partial ostectomy: Patient prelim intraoperative wound culture is growing gram-negative rebecca. Previous wound culture on January 15, 2018 shows E. coli, Prevotella Buccae and MSSA and Enterococcus faecalis and Streptococcus pseudoporcinus. Patient is being seen by ID and patient is on IV Zosyn as per recommendation. Wound dressing as per Dr. Juarez. 2. Type II DM, on insulin, blood sugars controlled, will continue monitoring on current regimen with Accu-Cheks. Currently, blood sugar is controlled. Dose of NovoLog insulin and Lantus insulin adjusted. A1c on 01/22 8.3. 3. Anemia, macrocytic, hemoglobin is 8.7, appears stable, would check folate and B12 4. History of traumatic brain injury, with right paraplegia, PT/OT to evaluate 5. CAD, on metoprolol, off aspirin 6. DVT PPx- SCDs, not on anticoagulation per primary. I risk of bleeding because of previous intracranial bleed which was subdural bleed, SAH and intraparenchymal bleed. Microbiology Past 72 Hours 01/22/18 Unknown Tissue - Sacral Gram Stain - Final 01/22/18 Unknown Tissue - Sacral Wound Culture - Preliminary Gram negative rebecca 01/22/18 Unknown Bone - Site Gram Stain - Final 01/22/18 Unknown Bone - Site Wound Culture - Preliminary No growth-Final to follow Laboratory Results 01/22/18 16:41: POC Glucose 165 H 01/22/18 21:30: POC Glucose 204 H 01/23/18 05:35: WBC 9.6, RBC 3.04 L, Hgb 9.5 L, Hct 29.5 L, MCV 97.0 H, MCH 31.3, MCHC 32.2, RDW 14.7 H, RDW Differential 48.0 H, Plt Count 308, MPV 9.8 01/23/18 05:35: Sodium 138, Potassium 3.6, Chloride 99, Carbon Dioxide 30.0, Anion Gap 9, BUN 12, Creatinine 0.48 L, Estim Creat Clear Calc 83.34, Est GFR (MDRD) Af Amer 224, Est GFR (MDRD) Non-Af 185, BUN/Creatinine Ratio 25.1 H, Glucose 174 H, Calcium 9.0 01/23/18 07:52: POC Glucose 182 H Code Visit Inpatient E&M: 86536 Subs Hosp L3
[2018-01-23] MEDS: Insulin Lispro 100 UNIT/ML INSULN.PEN 7 UNIT SC ×2 (09:58→12:20)
[2018-01-23] MEDS: Furosemide 40 MG Tablet PO ×2 (10:01→16:59)
[2018-01-23] MEDS: Pantoprazole Sodium 40 MG Tablet PO (10:01)
[2018-01-23] MEDS: Amantadine 100 MG Capsule PO (10:01)
[2018-01-23] MEDS: Magnesium Oxide 400 MG Tablet PO ×3 (10:01→16:59)
[2018-01-23] MEDS: traMADol 50 MG Tablet PO (11:13)
[2018-01-23] MEDS: Lactated Ringers 1,000 ML 60 ML IV (11:14)
[2018-01-23 12:26] LABS: Bedside Glucose 259 mg/dL (70-110)
[2018-01-23 13:16] LABS: Bedside Glucose 176 mg/dL (70-110)
[2018-01-23] MEDS: Insulin Lispro 100 UNIT/ML INSULN.PEN 10 UNIT SC (16:59)
[2018-01-23 17:00] LABS: Bedside Glucose 229 mg/dL (70-110)
--- NOTE | 2018-01-23 20:05 | PCM.PN.SRG ---
Subjective: Postop #1 Patient is resting comfortably. - Physical Exam General: Alert, Oriented x3 HEENT: PERRLA, EOMI Oral: Moist Mucosa Neck: Supple Abdomen: Soft, Non-Distended Extremities: Edema - mild edema in lower extremities. Skin: Ulcer/ Wound - sacral pressure sore is stable. No further evidence of infection. Minor oozing at the edges that were easily controlled with gentle pressure. Will hold off on the VAC until tomorrow. Redressed the wound with Aquacel Silver and moistened Kerlix gauze. Psych/Mental Status: Normal Affect, Appropriate Vital Signs Temp Pulse Resp BP Pulse Ox 98.6 F 115 H 18 108/55 L 94 01/23/18 15:46 01/23/18 15:46 01/23/18 15:46 01/23/18 15:46 01/23/18 15:46 Oxygen Flow Rate (L/min) 2 Oxygen Delivery Method Room Air Weight: 233 lb 14.567 oz Body Mass Index (BMI) 30.0 Finger Stick Blood Glucose 212 Intake and Output for Last 24 Hours 01/21/18 01/22/18 01/23/18 23:59 23:59 23:59 Intake Total 2300 / 2300 3777 / 3777 Output Total 3300 / 3300 5200 / 5200 Balance -1000 / -1000 -1423 / -1423 Microbiology Past 72 Hours 01/22/18 Unknown Gram Stain - Final Tissue - Sacral Wound Culture - Preliminary Gram negative rebecca 01/22/18 Unknown Gram Stain - Final Bone - Site Wound Culture - Preliminary No growth-Final to follow Pathology - pending. Laboratory Tests Past 24 Hrs 01/23/18 01/23/18 05:35 05:35 WBC 9.6 RBC 3.04 L Hgb 9.5 L Hct 29.5 L MCV 97.0 H MCH 31.3 MCHC 32.2 RDW 14.7 H RDW Differential 48.0 H Plt Count 308 MPV 9.8 Sodium 138 Potassium 3.6 Chloride 99 Carbon Dioxide 30.0 Anion Gap 9 BUN 12 Creatinine 0.48 L Estim Creat Clear Calc 83.34 Est GFR (MDRD) Af Amer 224 Est GFR (MDRD) Non-Af 185 BUN/Creatinine Ratio 25.1 H Glucose 174 H Calcium 9.0 POC Glucose 01/23/18 01/23/18 01/23/18 16:50 12:11 07:52 POC Glucose 229 H 259 H 182 H 01/22/18 01/22/18 21:30 11:55 POC Glucose [address]/Pelvis without IV Contrast IMPRESSION: 1. Fluid collection of the subcutaneous fat lateral to the right hip measuring 12.2 x 6.0 x 2.8 cm. No gas is seen within this collection. This may represent seroma or abscess. 2. There is a skin ulcer posterior to the coccygeal tip. 3. A PEG tube is present. 4. There is a small fat-containing umbilical hernia. 5. Status post total right hip replacement changes are seen. 6. There are status post posterior spinal fusion changes with interpeduncular screws at the L5-S1 level. 7. The study is limited secondary to scanning artifact caused by right hip implants. Electronically Signed: Sukhwinder Carson MD at 16:59 EDT , Service support , Medical Necessity - Tobacco Use Smoking Status: Former smoker Assessment/Plan All Active Problems (Last Updated 01/15/18 @ 18:40 by Darnell Felix DO) Pressure injury of sacral region, stage 4 (Acute) Alcohol intoxication (Resolved) Acute respiratory failure (Acute) Aspiration pneumonia (Acute) Acute and chronic respiratory failure with hypoxia (Acute) Sepsis (Resolved) Healthcare associated bacteremia due to Staphylococcus aureus (Resolved) Infected decubitus ulcer (Acute) Infected decubitus ulcer (Acute) FUO (fever of unknown origin) (Acute) Demand ischemia (Resolved) Systolic CHF, acute (Acute) Acute respiratory failure with hypoxia and hypercarbia (Resolved) Multifocal community-acquired pneumonia (Resolved) Severe sepsis (Resolved) 1. Sacral pressure sore, Stage IV. 2. Traumatic brain injury. 3. Right sided hemiplegia. 4. Osteomyelitis. 5. Diabetes mellitus. Continue IV Zosyn. Operative culture shows Gram negative rebecca in the soft tissue thus far Pathology is pending. With suspected osteomyelitis, will need long-term IV antibiotics. Wound looked clean without further evidence of infection. Minor oozing noted. Easily controlled with gentle pressure. Wound redressed with Aquacel Silver. Will hold off on the VAC today and place it tomorrow. At the time of the surgery, soft tissue and bone will be sent to Pathology and to Microbiology to rule out carcinoma and to Prealbumin was 15.4. Encourage nutritional supplementation with protein to help the healing process. During the dressing change today, there was stool contamination in the wound. Also with the wound being very close to the anal opening, the patient will need to be evaluated for a diverting colostomy. Hgb is 9.5. Will start Iron supplementation. After surgery, the patient may benefit from a short stay at an ECF. He will have complex wound care with the VAC combined with long-term antibiotics.
[2018-01-23] MEDS: Pramipexole Di-HCl 0.25 MG Tablet PO (22:54)
[2018-01-23] MEDS: Tamsulosin HCl 0.4 MG Capsule PO (22:54)
[2018-01-23] MEDS: Pravastatin 80 MG Tablet PO (22:55)
[2018-01-23] MEDS: Amitriptyline 25 MG Tablet PO (22:56)
[2018-01-23 23:51] LABS: Bedside Glucose 273 mg/dL (70-110)
[2018-01-24] VITALS (13 sets, daily range): BP systolic 112–157; BP diastolic 56–78; PULSE 93–109; RESP 16–24; TEMP 36.8–37.4; O2SAT 95–99
[2018-01-24] MEDS: 0.9% NaCl PICC Flush 10 ML IV (06:02)
[2018-01-24] MEDS: Piperacil/Tazobactam 3.375 GM/50 ML ML IV ×3 (06:02→22:37)
[2018-01-24] MEDS: Metoprolol Tartrate 50 MG Tablet 150 MG PO ×3 (06:07→22:39)
[2018-01-24 06:44] LABS: Scan Indicated on CBC? Y/N NO
[2018-01-24 07:01] LABS: Anion Gap 9 (5-15); BUN 12 mg/dL (7-18); Calcium,Total 8.8 mg/dL (8.5-10.1); Chloride 101 mmol/L (98-107); Creatinine, Serum 0.52 mg/dL (0.70-1.30); EST Glomerular Filtration Rate 168 mL/min (>60); Est Glom Filt Rate - Afr Amer 203 mL/min (>60); Estimated Creatinine Clearance 83.34 ml/min; Glucose 207 mg/dL (74-106); Potassium 3.6 mmol/L (3.5-5.1); Sodium Level 139 mmol/L (136-145)
[2018-01-24] MEDS: Budesonide Respules 0.5 MG/2 ML AMPUL.NEB. INHALATION ×2 (07:13→19:21)
[2018-01-24 07:18] LABS: Hematocrit 28.6 % (40-54); Mean Corp Hgb Conc 31.5 g/gl (32-36); Mean Corpuscular Volume 95.3 fL (80-94)
[2018-01-24 07:19] LABS: Mean Platelet Vol. 10.2 fl (6.2-12.0); Platelet Count 298 K/mm3 (150-450); RBC Distribution Width CV 15.2 % (11.6-14.6); RBC Distribution Width SD 51.8 fl (35.1-43.9)
[2018-01-24 07:25] LABS: Erythrocyte Sedimentation Rate 75 mm/hr (0-20)
--- NOTE | 2018-01-24 07:51 | CPS ---
own cpap machine
[2018-01-24 08:15] LABS: Bedside Glucose 223 mg/dL (70-110)
[2018-01-24] MEDS: Acetaminophen 325 MG Tablet 650 MG PO (08:23)
[2018-01-24] MEDS: Furosemide 40 MG Tablet PO ×2 (08:24→17:06)
[2018-01-24] MEDS: Magnesium Oxide 400 MG Tablet PO ×3 (08:24→17:05)
[2018-01-24] MEDS: Insulin Lispro 100 UNIT/ML INSULN.PEN 10 UNIT SC (08:25)
[2018-01-24] MEDS: Amantadine 100 MG Capsule PO (08:26)
[2018-01-24] MEDS: Pantoprazole Sodium 40 MG Tablet PO (08:27)
[2018-01-24] MEDS: Iron Polysaccharide Complex 150 MG CAPSULE PO (10:44)
[2018-01-24] MEDS: diazePAM 2 MG Tablet PO (10:46)
--- NOTE | 2018-01-24 10:58 | PCM.PN.HOSP ---
Subjective: Patient had low-grade temperature 101.1?F yesterday at 8 PM, just one time. After that he is afebrile. Patient slept good on CPAP yesterday with 5 cm of H20 pressure. Patient sacral decubitus ulcer status post excision is very close to anal opening and Dr. Juarez suggested diverting colostomy. The wound was changed yesterday by Dr. Juarez and shows minor oozing at the edges. Dressing was changed with Aquacel silver and moisture with Kerlix gauze Vitals/I&O's: Vital Signs Temp Pulse Resp BP Pulse Ox 98.4 F 96 20 H 124/77 H 95 01/24/18 10:37 01/24/18 10:37 01/24/18 10:37 01/24/18 10:37 01/24/18 10:37 Oxygen Flow Rate (L/min) 5 Oxygen Delivery Method Room Air Weight: 233 lb 14.567 oz Body Mass Index (BMI) 30.0 Finger Stick Blood Glucose 212 Intake and Output for Last 24 Hours 01/22/18 01/23/18 01/24/18 23:59 23:59 23:59 Intake Total 2300 / 2300 3777 / 3777 942 / 942 Output Total 3300 / 3300 5200 / 5200 2650 / 2650 Balance -1000 / -1000 -1423 / -1423 -1708 / -1708 General: Alert, Oriented x3, Cooperative HEENT: Atraumatic, PERRLA, EOMI, Normocephalic Neck: Supple, No JVD, Negative Carotid Bruits Lungs: Clear to auscultation, No rhonchi, No wheeze, No rales, Diminished Cardiovascular: Regular rate, Regular Rhythm, Normal S1, Normal S2, No murmurs Abdomen: Bowel Sounds Present, Soft, Non Tender, Non-Distended Extremities: No edema, Capillary Refill Less than 3 Seconds Skin: Ulcer/ Wound - Excision of sacral decubitus with dressing on. Musculoskeletal: No Tenderness to Palpation of Joints or Extremities Neurological: Cranial nerves II-XII grossly intact Psych/Mental Status: Normal Affect, Appropriate Microbiology Past 72 Hours 01/22/18 Unknown Tissue - Sacral Gram Stain - Final 01/22/18 Unknown Tissue - Sacral Wound Culture - Preliminary Serratia marcescens GPC Poss Enterococcus sp 01/22/18 Unknown Bone - Site Gram Stain - Final 01/22/18 Unknown Bone - Site Wound Culture - Preliminary No growth-Final to follow Laboratory Results 01/22/18 11:55: POC Glucose 176 H 01/23/18 12:11: POC Glucose 259 H 01/23/18 16:50: POC Glucose 229 H 01/23/18 22:57: POC Glucose 273 H 01/24/18 05:50: WBC 9.0, RBC 3.00 L, Hgb 9.0 L, Hct 28.6 L, MCV 95.3 H, MCH 30.0, MCHC 31.5 L, RDW 15.2 H, RDW Differential 51.8 H, Plt Count 298, MPV 10.2, ESR 75 H 01/24/18 05:50: Sodium 139, Potassium 3.6, Chloride 101, Carbon Dioxide 29.0, Anion Gap 9, BUN 12, Creatinine 0.52 L, Estim Creat Clear Calc 83.34, Est GFR (MDRD) Af Amer 203, Est GFR (MDRD) Non-Af 168, BUN/Creatinine Ratio 23.0 H, Glucose 207 H, Calcium 8.8, C-React Prot Ext Range 45.60 H 01/24/18 08:01: POC Glucose 223 H Current Medications Acetaminophen (Tylenol) 650 mg PO Q6H PRN PRN PRN Reason: pain/fever Last Admin: 01/24/18 08:23 Dose: 650 mg Albuterol/Ipratropium (Duoneb) 3 ml INHALATION Q2H PRN PRN PRN Reason: SHORTNESS OF BREATH Amantadine HCl (Symmetrel) 100 mg PO DAILY [facility] Last Admin: 01/24/18 08:26 Dose: 100 mg Amitriptyline HCl (Elavil) 25 mg PO QHS [facility] Stop: 01/26/18 22:01 Last Admin: 01/23/18 22:56 Dose: 25 mg Budesonide (Pulmicort Aerosol) 0.5 mg INHALATION BID [facility] Last Admin: 01/24/18 07:13 Dose: 0.5 mg Diazepam (Valium) 2 mg PO 4X/DAY PRN PRN PRN Reason: SPASMS Last Admin: 01/24/18 10:46 Dose: 2 mg Furosemide (Lasix) 40 mg PO BIDLX [facility] Last Admin: 01/24/18 08:24 Dose: 40 mg Hydromorphone HCl (Dilaudid Inj) 0.5 mg IV Q4H PRN PRN PRN Reason: SEVERE PAIN (6-10/10) Piperacillin Sod/Tazobactam Sod (Zosyn) 3.375 gm in 50 mls @ 12.5 mls/hr IV Q8 [facility] Last Admin: 01/24/18 06:02 Dose: 12.5 mls/hr Lactated Ringer's () 1,000 mls @ 15 mls/hr IV .Q48H [facility] Insulin Glargine (Lantus ([facility])) 17 units SC 0800,2200 [facility] Last Admin: 01/24/18 08:26 Dose: 17 u Insulin Human Lispro (Humalog Kwikpen ([facility])) 10 unit SC TIDCM [facility] Last Admin: 01/24/18 08:25 Dose: 10 units Magnesium Oxide (Mag-Ox 400) 400 mg PO TIDCM [facility] Last Admin: 01/24/18 08:24 Dose: 400 mg Metoprolol Tartrate (Lopressor (Beta Devante)) 150 mg PO TID [facility] Last Admin: 01/24/18 06:07 Dose: 150 mg Nitroglycerin (Nitrostat) 0.4 mg SUBLINGUAL Q5M PRN PRN Reason: Chest Pain Nutritional Formula ([place] Flavor) [facility] Last Admin: 01/24/18 08:24 Dose: 1 packet Ondansetron HCl (Zofran) 4 mg IV Q6H PRN PRN PRN Reason: NAUSEA Oxycodone HCl (Oxyir) 10 mg PO Q4H PRN PRN PRN Reason: SEVERE PAIN (6-10/10) Pantoprazole Sodium (Protonix) 40 mg PO DAILY [facility] Last Admin: 01/24/18 08:27 Dose: 40 mg Polyethylene Glycol (Miralax) 17 gm PO DAILY [facility] Last Admin: 01/24/18 08:27 Dose: Not Given Polysaccharide Iron Complex (Ferrex 150) 150 mg PO DAILY@0700 [facility] Last Admin: 01/24/18 10:44 Dose: 150 mg Potassium Bicarb/Potassium Chloride (Potassium Chl 25 Meq Eff (For Liquid)) 50 meq PO BIDCM [facility] Last Admin: 01/24/18 08:23 Dose: 50 meq Pramipexole Dihydrochloride (Mirapex) 0.25 mg PO QHS [facility] Last Admin: 01/23/18 22:54 Dose: 0.25 mg Pravastatin Sodium (Pravachol) 80 mg PO QHS [facility] Last Admin: 01/23/18 22:55 Dose: 80 mg Promethazine HCl (Phenergan Tablet) 25 mg PO Q4H PRN PRN PRN Reason: NAUSEA/VOMITING Sodium Chloride () 10 ml IV UD PRN PRN Reason: PICC FLUSH Last Admin: 01/24/18 06:02 Dose: 10 ml Tamsulosin HCl (Flomax) 0.4 mg PO QHS [facility] Last Admin: 01/23/18 22:54 Dose: 0.4 mg Tramadol HCl (Ultram) 50 mg PO TID PRN PRN PRN Reason: PAIN Last Admin: 01/23/18 11:13 Dose: 50 mg Zolpidem Tartrate (Ambien (Generic)) 5 mg PO QHS PRN PRN PRN Reason: SLEEP Medical Necessity - Tobacco Use Smoking Status: Former smoker Assessment/Plan All Active Problems (Last Updated 01/15/18 @ 18:40 by Darnell Felix DO) Pressure injury of sacral region, stage 4 (Acute) Alcohol intoxication (Resolved) Acute respiratory failure (Acute) Aspiration pneumonia (Acute) Acute and chronic respiratory failure with hypoxia (Acute) Sepsis (Resolved) Healthcare associated bacteremia due to Staphylococcus aureus (Resolved) Infected decubitus ulcer (Acute) Infected decubitus ulcer (Acute) FUO (fever of unknown origin) (Acute) Demand ischemia (Resolved) Systolic CHF, acute (Acute) Acute respiratory failure with hypoxia and hypercarbia (Resolved) Multifocal community-acquired pneumonia (Resolved) Severe sepsis (Resolved) 70-year-old male with multiple comorbidities including history of a stroke with residual right-sided hemiplegia and then traumatic brain injury and intracranial bleed after fall and on blood thinner, aspiration pneumonia, sleep apnea on CPAP, coronary artery disease status post CABG in 2001 and non-STEMI in February 2017, chronic systolic heart failure and other multiple comorbidities including hypertension, morbid obesity and diabetes mellitus type 2 was admitted with sacral decubitus ulcer stage IV with osteomyelitis. 1. Infected sacral decubitus ulcer stage IV with osteomyelitis status post excision of infected necrotic tissue and partial ostectomy: Patient prelim intraoperative wound culture is growing Serratia and gram-positive cocci possible enterococcus. Previous wound culture on January 15, 2018 shows E. coli, Prevotella Buccae and MSSA and Enterococcus faecalis and Streptococcus pseudoporcinus. Patient is being seen by ID and patient is on IV Zosyn as per recommendation. Wound dressing as per Dr. Juarez. Vitamin C supplement and nutritional supplement 2. Type II DM, on insulin, blood sugars controlled, will continue monitoring on current regimen with Accu-Cheks. Blood sugar is in the range of 150-250 mg/dL. Dose of NovoLog insulin and Lantus insulin adjusted. A1c on 01/22 8.3. 3. Anemia, macrocytic, hemoglobin is 8.7, appears stable, folate and B12 are ordered. 4. History of traumatic brain injury, with right paraplegia, PT/OT to evaluate 5. CAD, on metoprolol, off aspirin 6. DVT PPx- SCDs, not on anticoagulation per primary. I risk of bleeding because of previous intracranial bleed which was subdural bleed, SAH and intraparenchymal bleed. Microbiology Past 72 Hours 01/22/18 Unknown Tissue - Sacral Gram Stain - Final 01/22/18 Unknown Tissue - Sacral Wound Culture - Preliminary Serratia marcescens GPC Poss Enterococcus sp 01/22/18 Unknown Bone - Site Gram Stain - Final 01/22/18 Unknown Bone - Site Wound Culture - Preliminary No growth-Final to follow Laboratory Results 01/22/18 11:55: POC Glucose 176 H 01/23/18 12:11: POC Glucose 259 H 01/23/18 16:50: POC Glucose 229 H 01/23/18 22:57: POC Glucose 273 H 01/24/18 05:50: WBC 9.0, RBC 3.00 L, Hgb 9.0 L, Hct 28.6 L, MCV 95.3 H, MCH 30.0, MCHC 31.5 L, RDW 15.2 H, RDW Differential 51.8 H, Plt Count 298, MPV 10.2, ESR 75 H 01/24/18 05:50: Sodium 139, Potassium 3.6, Chloride 101, Carbon Dioxide 29.0, Anion Gap 9, BUN 12, Creatinine 0.52 L, Estim Creat Clear Calc 83.34, Est GFR (MDRD) Af Amer 203, Est GFR (MDRD) Non-Af 168, BUN/Creatinine Ratio 23.0 H, Glucose 207 H, Calcium 8.8, C-React Prot Ext Range 45.60 H 01/24/18 08:01: POC Glucose 223 H Code Visit Inpatient E&M: 33301 Subs Hosp L3
--- NOTE | 2018-01-24 11:31 | NURSING ---
1053 was sent text by primary RN regarding consult 1053 replied asking if he can see tomorow. This nurse replied it is not emergant. (per Dr. Evans to be seen tomorrow) it sounds like Dr. Juarez was hoping he could get him into OR tomorrow. We can make him npo for surgery just incase if he wanted. 11:29 dr. Leslie replied it's gonna be pretty tight tomorrow and tues. right now I'm looking at thursday Dr. Evans informed of conversation.
[2018-01-24 12:00] LABS: Bedside Glucose 309 mg/dL (70-110)
[2018-01-24] MEDS: Ascorbic Acid 500 MG Tablet 1000 MG PO (12:09)
[2018-01-24] MEDS: traMADol 50 MG Tablet PO (12:09)
[2018-01-24] MEDS: Insulin Lispro 100 UNIT/ML INSULN.PEN 15 UNIT SC ×2 (12:10→17:06)
[2018-01-24 17:20] LABS: Bedside Glucose 220 mg/dL (70-110)
--- NOTE | 2018-01-24 18:43 | PCM.PN.SRG ---
Subjective: Postop #2 Patient is resting comfortably. - Physical Exam General: Alert, Oriented x3 HEENT: PERRLA, EOMI Oral: Moist Mucosa Neck: Supple Abdomen: Soft, Non-Distended Extremities: Edema - minor edema in lower extremities. Skin: Ulcer/ Wound - sacral pressure sore is stable. No further evidence of infection. Minor oozing at the edges that were easily controlled with gentle pressure. Will hold off on the VAC until tomorrow. Redressed the wound with Aquacel Silver and moistened Kerlix gauze. Psych/Mental Status: Normal Affect, Appropriate Vital Signs Temp Pulse Resp BP Pulse Ox 98.3 F 109 H 24 H 132/64 H 95 01/24/18 14:56 01/24/18 14:56 01/24/18 14:56 01/24/18 14:56 01/24/18 14:56 Oxygen Flow Rate (L/min) 5 Oxygen Delivery Method Room Air Weight: 233 lb 14.567 oz Body Mass Index (BMI) 30.0 Finger Stick Blood Glucose 212 Intake and Output for Last 24 Hours 01/22/18 01/23/18 01/24/18 23:59 23:59 23:59 Intake Total 2300 / 2300 3777 / 3777 2460 / 2460 Output Total 3300 / 3300 5200 / 5200 4675 / 4675 Balance -1000 / -1000 -1423 / -1423 -2215 / -2215 Microbiology Past 72 Hours 01/22/18 Unknown Gram Stain - Final Tissue - Sacral Wound Culture - Preliminary Serratia marcescens GPC Poss Enterococcus sp 01/22/18 Unknown Gram Stain - Final Bone - Site Wound Culture - Preliminary No growth-Final to follow Pathology - pending. Laboratory Tests Past 24 Hrs 01/24/18 01/24/18 05:50 05:50 WBC 9.0 RBC 3.00 L Hgb 9.0 L Hct 28.6 L MCV 95.3 H MCH 30.0 MCHC 31.5 L RDW 15.2 H RDW Differential 51.8 H Plt Count 298 MPV 10.2 ESR 75 H Sodium 139 Potassium 3.6 Chloride 101 Carbon Dioxide 29.0 Anion Gap 9 BUN 12 Creatinine 0.52 L Estim Creat Clear Calc 83.34 Est GFR (MDRD) Af Amer 203 Est GFR (MDRD) Non-Af 168 BUN/Creatinine Ratio 23.0 H Glucose 207 H Calcium 8.8 C-React Prot Ext Range 45.60 H POC Glucose 01/24/18 01/24/18 01/24/18 17:02 11:53 08:01 POC Glucose 220 H 309 H 223 H 01/23/18 22:57 POC Glucose 273 H Medical Necessity - Tobacco Use Smoking Status: Former smoker Assessment/Plan All Active Problems (Last Updated 01/15/18 @ 18:40 by Darnell Felix DO) Alcohol intoxication (Resolved) Acute respiratory failure (Acute) Aspiration pneumonia (Acute) Acute and chronic respiratory failure with hypoxia (Acute) Sepsis (Resolved) Healthcare associated bacteremia due to Staphylococcus aureus (Resolved) Infected decubitus ulcer (Acute) Infected decubitus ulcer (Acute) FUO (fever of unknown origin) (Acute) Demand ischemia (Resolved) Systolic CHF, acute (Acute) Acute respiratory failure with hypoxia and hypercarbia (Resolved) Multifocal community-acquired pneumonia (Resolved) Severe sepsis (Resolved) 1. Sacral pressure sore, Stage IV. 2. Traumatic brain injury. 3. Right sided hemiplegia. 4. Osteomyelitis. 5. Diabetes mellitus. Continue IV Zosyn. Operative culture shows Serratia marcescens and Gram positive cocci possible Enterococcus. Pathology is pending. With suspected osteomyelitis, will need chcf IV antibiotics. Wound looked clean without further evidence of infection. Minor oozing noted. Easily controlled with gentle pressure. Wound redressed with Aquacel Silver. Will hold off on the VAC today and place it tomorrow. Prealbumin was 15.4. Encourage nutritional supplementation with protein to help the healing process. During the dressing change today, there was stool contamination in the wound. Also with the wound being very close to the anal opening, the patient will need to be evaluated for a diverting colostomy. Hgb is stable at 9.0. Continue Iron supplementation. After surgery, the patient may benefit from a short stay at an ECF. He will have complex wound care with the VAC combined with chcf antibiotics.
[2018-01-24] MEDS: Lactated Ringers 1,000 ML 15 ML IV (22:00)
[2018-01-24] MEDS: 0.9% NaCl IVPB Med Flush (250 mL) 15 ML IV (22:00)
[2018-01-24 22:11] LABS: Bedside Glucose 276 mg/dL (70-110)
[2018-01-24] MEDS: Tamsulosin HCl 0.4 MG Capsule PO (22:39)
[2018-01-24] MEDS: Amitriptyline 25 MG Tablet PO (22:39)
[2018-01-24] MEDS: Pramipexole Di-HCl 0.25 MG Tablet PO (22:39)
[2018-01-24] MEDS: Pravastatin 80 MG Tablet PO (22:40)
[2018-01-25] VITALS (10 sets, daily range): BP systolic 118–149; BP diastolic 59–79; PULSE 85–114; RESP 16–19; TEMP 36.4–37.4; O2SAT 95–98
[2018-01-25] MEDS: Piperacil/Tazobactam 3.375 GM/50 ML ML IV ×3 (05:24→21:53)
[2018-01-25] MEDS: Metoprolol Tartrate 50 MG Tablet 150 MG PO ×3 (05:24→21:54)
[2018-01-25] MEDS: Iron Polysaccharide Complex 150 MG CAPSULE PO (06:49)
[2018-01-25] MEDS: traMADol 50 MG Tablet PO (06:49)
[2018-01-25] MEDS: Budesonide Respules 0.5 MG/2 ML AMPUL.NEB. INHALATION ×2 (07:26→19:13)
[2018-01-25] MEDS: 0.9% NaCl PICC Flush 10 ML IV ×4 (07:49→07:52)
[2018-01-25 08:08] LABS: Absolute Lymphocyte Count 1.35 X10^3/ul (0.83-4.51); Absolute Neutrophil Count 5.5 X10^3/uL (2.0-7.7); Basophil# 0.03 X10^3/uL; Basophil% 0.4 % (0-1); Eosinophil# 0.16 X10^3/uL; Hemoglobin 9.5 g/dl (13.0-16.5); Lymphocyte # 1.35 X10^3/ul (4.0); Lymphocyte % 16.7 % (19-41); Mean Corp Hgb Conc 32.8 g/gl (32-36); Mean Corpuscular Hgb 31.6 pg (27.0-32.0); Mean Corpuscular Volume 96.3 fL (80-94); Mean Platelet Vol. 10.3 fl (6.2-12.0); Monocyte# 1.01 X10^3/uL; Monocyte% 12.5 % (0-10); Neutrophil # 5.51 X10^3/uL (2.7-7.7); Neutrophil % 68.2 % (47-70); Platelet Count 288 K/mm3 (150-450); RBC Distribution Width CV 14.7 % (11.6-14.6); RBC Distribution Width SD 48.2 fl (35.1-43.9); Red Blood Count 3.01 M/mm3 (4.6-6.2); White Blood Count 8.1 K/mm3 (4.4-11.0)
[2018-01-25 08:18] LABS: POSITIVE COUNT NO; POSITIVE DIFFERENTIAL NO; POSITIVE MORPHOLOGY NO
[2018-01-25 08:29] LABS: Vitamin B12 722 pg/mL (211-911)
[2018-01-25 08:57] LABS: Anion Gap 6 (5-15); BUN 11 mg/dL (7-18); Calcium,Total 8.8 mg/dL (8.5-10.1); Chloride 100 mmol/L (98-107); Creatinine, Serum 0.55 mg/dL (0.70-1.30); EST Glomerular Filtration Rate 158 mL/min (>60); Est Glom Filt Rate - Afr Amer 191 mL/min (>60); Estimated Creatinine Clearance 83.34 ml/min; Glucose 242 mg/dL (74-106); Potassium 3.8 mmol/L (3.5-5.1); Sodium Level 137 mmol/L (136-145)
[2018-01-25] MEDS: Pantoprazole Sodium 40 MG Tablet PO (09:06)
[2018-01-25] MEDS: Furosemide 40 MG Tablet PO ×2 (09:06→16:42)
[2018-01-25] MEDS: Insulin Lispro 100 UNIT/ML INSULN.PEN 15 UNIT SC ×3 (09:07→16:40)
[2018-01-25] MEDS: Polyethylene Glycol 3350 17 GM PACKET PO (09:07)
[2018-01-25] MEDS: Magnesium Oxide 400 MG Tablet PO ×3 (09:08→16:42)
[2018-01-25] MEDS: Amantadine 100 MG Capsule PO (09:43)
[2018-01-25] MEDS: Ascorbic Acid 500 MG Tablet 1000 MG PO (09:43)
[2018-01-25 09:46] LABS: Bedside Glucose 290 mg/dL (70-110)
[2018-01-25] MEDS: oxyCODONE 5 MG Tablet 10 MG PO (09:47)
--- NOTE | 2018-01-25 10:18 | PCM.PN.SRG ---
Subjective: Patient known to me with infected sacral ulcer status post further debridement and need for diverting colostomy. - Physical Exam General: Alert, Oriented x3, Cooperative HEENT: Atraumatic Lungs: Normal air movement Cardiovascular: Regular rate Abdomen: Soft, Passing Flatus, Distended - Mild, Tender - Mild tenderness palpation left lower quadrant, patient did have significant stool burden and a CT from 01/21/2018 Vital Signs Temp Pulse Resp BP Pulse Ox 98.7 F 85 18 149/79 H 96 01/25/18 05:00 01/25/18 07:26 01/25/18 07:26 01/25/18 05:24 01/25/18 07:26 Oxygen Flow Rate (L/min) 5 Oxygen Delivery Method Room Air Weight: 233 lb 14.567 oz Body Mass Index (BMI) 30.0 Finger Stick Blood Glucose 212 Intake and Output for Last 24 Hours 01/23/18 01/24/18 01/25/18 23:59 23:59 23:59 Intake Total 3777 / 3777 2460 / 2460 618 / 618 Output Total 5200 / 5200 4675 / 4675 2975 / 2975 Balance -1423 / -1423 -2215 / -2215 -2357 / -2357 Microbiology Past 72 Hours 01/22/18 Unknown Gram Stain - Final Tissue - Sacral Wound Culture - Preliminary Serratia marcescens GPC Poss Enterococcus sp Anaerobic Culture - Preliminary Checking for anaerobes, further studies to follow. 01/22/18 Unknown Gram Stain - Final Bone - Site Wound Culture - Final No growth aerobically. Anaerobic Culture - Preliminary No growth in 48 hours. Laboratory Tests Past 24 Hrs 01/25/18 01/25/18 01/25/18 07:45 07:45 07:45 WBC 8.1 RBC 3.01 L Hgb 9.5 L Hct 29.0 L MCV 96.3 H MCH 31.6 MCHC 32.8 RDW 14.7 H RDW Differential 48.2 H Plt Count 288 MPV 10.3 Immature Gran % (Auto) 0.200 Neut % (Auto) 68.2 Lymph % (Auto) 16.7 L [place] % (Auto) 12.5 H Eos % (Auto) 2.0 Baso % (Auto) 0.4 Absolute Neuts (auto) 5.5 Absolute Lymphs (auto) 1.35 Total Counted Not Reportable Sodium 137 Potassium 3.8 Chloride 100 Carbon Dioxide 31.0 Anion Gap 6 BUN 11 Creatinine 0.55 L Estim Creat Clear Calc 83.34 Est GFR (MDRD) Af Amer 191 Est GFR (MDRD) Non-Af 158 BUN/Creatinine Ratio 20.0 Glucose 242 H Calcium 8.8 Vitamin B12 722 Folate 24.40 POC Glucose 01/25/18 01/24/18 01/24/18 08:43 22:05 17:02 POC Glucose 290 H 276 H 220 H 01/24/18 11:53 POC Glucose 309 H Medical Necessity - Tobacco Use Smoking Status: Former smoker Assessment/Plan All Active Problems (Last Updated 01/15/18 @ 18:40 by Darnell Felix DO) Alcohol intoxication (Resolved) Acute respiratory failure (Acute) Aspiration pneumonia (Acute) Acute and chronic respiratory failure with hypoxia (Acute) Sepsis (Resolved) Healthcare associated bacteremia due to Staphylococcus aureus (Resolved) Infected decubitus ulcer (Acute) Infected decubitus ulcer (Acute) FUO (fever of unknown origin) (Acute) Demand ischemia (Resolved) Systolic CHF, acute (Acute) Acute respiratory failure with hypoxia and hypercarbia (Resolved) Multifocal community-acquired pneumonia (Resolved) Severe sepsis (Resolved) 67-year-old male with infected sacral decubitus ulcer status post debridement, need for diverting colostomy 1. Discussed with the patient and his procedure for a laparoscopic diverting colostomy verse end colostomy. They were agreeable to either of the long as in the future they would be able to be reversed if needed. Discussed risk including but not limited to, bleeding, infection, hernia at colostomy site, injury to another organ i.e. small bowel or colon, and anesthesia. Discussed with patient and his that would plan for this week sometime however looking at his CT from the 01/21/18 and his I's and O's and it looks like he still has significant amount of stool in his colon which in order to do this more minimally invasive and start laparoscopic would need partial prep. We will plan to try to do this slowly and will start now with several laxatives. They have no further questions at this time. Joann Arias M.D. Pager: [phone] [facility] [address] [place] [address], [facility], [address] [place] [id number] Office: [phone] Code Visit Inpatient E&M: 93369 Subs Hosp L1
--- NOTE | 2018-01-25 11:36 | PCM.PN.HOSP ---
Subjective: right shoulder pain. continued slight improvements in movement of RUE and RLE. Vitals/I&O's: Vital Signs Temp Pulse Resp BP Pulse Ox 37.1 C 85 18 149/79 H 96 01/25/18 05:00 01/25/18 07:26 01/25/18 07:26 01/25/18 05:24 01/25/18 07:26 Oxygen Flow Rate (L/min) 5 Oxygen Delivery Method Room Air Weight: 106.1 kg Body Mass Index (BMI) 30.0 Finger Stick Blood Glucose 212 Intake and Output for Last 24 Hours 01/23/18 01/24/18 01/25/18 23:59 23:59 23:59 Intake Total 3777 / 3777 2460 / 2460 618 / 618 Output Total 5200 / 5200 4675 / 4675 2975 / 2975 Balance -1423 / -1423 -2215 / -2215 -2357 / -2357 General: Alert, No apparent distress, - - up at side of bed with therapy. HEENT: Atraumatic, Normocephalic Oral: Moist Mucosa, No Gingival or Mucosal Lesions/ Ulcerations Neck: No Nodes, Thyroid Normal Size and Texture Lungs: Clear to auscultation, Normal air movement, No rhonchi, No wheeze Cardiovascular: Regular rate, Regular Rhythm, Normal S1, Normal S2 Abdomen: Bowel Sounds Present, Soft, Non Tender, Non-Distended, No Hepato-splenomegaly Extremities: No edema, No Calf Tenderness Skin: - - sacral decubitus ulcer covered--did not remove. Musculoskeletal: No Tenderness to Palpation of Joints or Extremities, No Muscle Wasting Psych/Mental Status: Normal Affect, Appropriate Microbiology Past 72 Hours 01/22/18 Unknown Tissue - Sacral Gram Stain - Final 01/22/18 Unknown Tissue - Sacral Wound Culture - Preliminary Serratia marcescens GPC Poss Enterococcus sp 01/22/18 Unknown Tissue - Sacral Anaerobic Culture - Preliminary Checking for anaerobes, further studies to follow. 01/22/18 Unknown Bone - Site Gram Stain - Final 01/22/18 Unknown Bone - Site Wound Culture - Final No growth aerobically. 01/22/18 Unknown Bone - Site Anaerobic Culture - Preliminary No growth in 48 hours. Laboratory Results 01/24/18 11:53: POC Glucose 309 H 01/24/18 17:02: POC Glucose 220 H 01/24/18 22:05: POC Glucose 276 H 01/25/18 07:45: WBC 8.1, RBC 3.01 L, Hgb 9.5 L, Hct 29.0 L, MCV 96.3 H, MCH 31.6, MCHC 32.8, RDW 14.7 H, RDW Differential 48.2 H, Plt Count 288, MPV 10.3, Immature Gran % (Auto) 0.200, Neut % (Auto) 68.2, Lymph % (Auto) 16.7 L, [place] % (Auto) 12.5 H, Eos % (Auto) 2.0, Baso % (Auto) 0.4, Absolute Neuts (auto) 5.5, Absolute Lymphs (auto) 1.35, Total Counted Not Reportable 01/25/18 07:45: Sodium 137, Potassium 3.8, Chloride 100, Carbon Dioxide 31.0, Anion Gap 6, BUN 11, Creatinine 0.55 L, Estim Creat Clear Calc 83.34, Est GFR (MDRD) Af Amer 191, Est GFR (MDRD) Non-Af 158, BUN/Creatinine Ratio 20.0, Glucose 242 H, Calcium 8.8, Folate 24.40 01/25/18 07:45: Vitamin B12 722 01/25/18 08:43: POC Glucose 290 H Current Medications Acetaminophen (Tylenol) 650 mg PO Q6H PRN PRN PRN Reason: pain/fever Last Admin: 01/24/18 08:23 Dose: 650 mg Albuterol/Ipratropium (Duoneb) 3 ml INHALATION Q2H PRN PRN PRN Reason: SHORTNESS OF BREATH Amantadine HCl (Symmetrel) 100 mg PO DAILY [facility] Last Admin: 01/25/18 09:43 Dose: 100 mg Amitriptyline HCl (Elavil) 25 mg PO QHS [facility] Stop: 01/26/18 22:01 Last Admin: 01/24/18 22:39 Dose: 25 mg Ascorbic Acid (Vitamin C) 1,000 mg PO DAILY@0800 [facility] Last Admin: 01/25/18 09:43 Dose: 1,000 mg Budesonide (Pulmicort Aerosol) 0.5 mg INHALATION BID [facility] Last Admin: 01/25/18 07:26 Dose: 0.5 mg Diazepam (Valium) 2 mg PO 4X/DAY PRN PRN PRN Reason: SPASMS Last Admin: 01/24/18 10:46 Dose: 2 mg Furosemide (Lasix) 40 mg PO BIDLX [facility] Last Admin: 01/25/18 09:06 Dose: 40 mg Hydromorphone HCl (Dilaudid Inj) 0.5 mg IV Q4H PRN PRN PRN Reason: SEVERE PAIN (6-10/10) Piperacillin Sod/Tazobactam Sod (Zosyn) 3.375 gm in 50 mls @ 12.5 mls/hr IV Q8 [facility] Last Admin: 01/25/18 05:24 Dose: 12.5 mls/hr Lactated Ringer's () 1,000 mls @ 15 mls/hr IV .Q48H [facility] Last Admin: 01/24/18 22:00 Dose: 15 mls/hr Sodium Chloride () 250 mls @ 15 mls/hr IV .[id number] PRN PRN Reason: SALINE FLUSH Last Admin: 01/24/18 22:00 Dose: 15 mls/hr Insulin Glargine (Lantus (Bkc)) 20 units SC 0800,2200 [facility] Last Admin: 01/25/18 09:08 Dose: 20 u Insulin Human Lispro (Humalog Kwikpen (Bk)) 15 unit SC TIDCM [facility] Last Admin: 01/25/18 09:07 Dose: 15 u Lactobacillus Acidophilus (Acidophilus) 1 tablet PO BID [facility] Last Admin: 01/25/18 09:43 Dose: 1 tablet Magnesium Oxide (Mag-Ox 400) 400 mg PO TIDCM [facility] Last Admin: 01/25/18 09:08 Dose: 400 mg Metoprolol Tartrate (Lopressor (Beta Devante)) 150 mg PO TID [facility] Last Admin: 01/25/18 05:24 Dose: 150 mg Nitroglycerin (Nitrostat) 0.4 mg SUBLINGUAL Q5M PRN PRN Reason: Chest Pain Nutritional Formula ([place] - [place] Flavor) 1 packet PO BIDCM [facility] Last Admin: 01/25/18 09:07 Dose: 1 packet Ondansetron HCl (Zofran) 4 mg IV Q6H PRN PRN PRN Reason: NAUSEA Oxycodone HCl (Oxyir) 10 mg PO Q4H PRN PRN PRN Reason: SEVERE PAIN (6-10) Last Admin: 01/25/18 09:47 Dose: 10 mg Pantoprazole Sodium (Protonix) 40 mg PO DAILY [facility] Last Admin: 01/25/18 09:06 Dose: 40 mg Polyethylene Glycol (Miralax) 17 gm PO DAILY [facility] Last Admin: 01/25/18 09:07 Dose: 17 gm Polysaccharide Iron Complex (Ferrex 150) 150 mg PO DAILY@0700 [facility] Last Admin: 01/25/18 06:49 Dose: 150 mg Potassium Bicarb/Potassium Chloride (Potassium Chl 25 Meq Eff (For Liquid)) 50 meq PO BIDCM [facility] Last Admin: 01/25/18 09:07 Dose: 50 meq Pramipexole Dihydrochloride (Mirapex) 0.25 mg PO QHS [facility] Last Admin: 01/24/18 22:39 Dose: 0.25 mg Pravastatin Sodium (Pravachol) 80 mg PO QHS [facility] Last Admin: 01/24/18 22:40 Dose: 80 mg Promethazine HCl (Phenergan Tablet) 25 mg PO Q4H PRN PRN PRN Reason: NAUSEA/VOMITING Sodium Chloride () 10 ml IV UD PRN PRN Reason: PICC FLUSH Last Admin: 01/25/18 07:52 Dose: 10 ml Tamsulosin HCl (Flomax) 0.4 mg PO QHS [facility] Last Admin: 01/24/18 22:39 Dose: 0.4 mg Tramadol HCl (Ultram) 50 mg PO TID PRN PRN PRN Reason: PAIN Last Admin: 01/25/18 06:49 Dose: 50 mg Zolpidem Tartrate (Ambien (Generic)) 5 mg PO QHS PRN PRN PRN Reason: SLEEP Medical Necessity - Tobacco Use Smoking Status: Former smoker Assessment/Plan All Active Problems (Last Updated 01/15/18 @ 18:40 by Darnell Felix DO) Alcohol intoxication (Resolved) Acute respiratory failure (Acute) Aspiration pneumonia (Acute) Acute and chronic respiratory failure with hypoxia (Acute) Sepsis (Resolved) Healthcare associated bacteremia due to Staphylococcus aureus (Resolved) Infected decubitus ulcer (Acute) Infected decubitus ulcer (Acute) FUO (fever of unknown origin) (Acute) Demand ischemia (Resolved) Systolic CHF, acute (Acute) Acute respiratory failure with hypoxia and hypercarbia (Resolved) Multifocal community-acquired pneumonia (Resolved) Severe sepsis (Resolved) 1. Infected decubitus ulcer, stage IV + Seratia and GPC s/p Debridement on 01/22 for diverting colostomy later this week, tentatively ID, PRS following. 2. Dysphagia Continue with modified diet with pur?ed and nectar thickened liquids Speech therapy 3. Traumatic brain injury Patient had subsequent intracranial hemorrhage, subarachnoid hemorrhage, subdural hemorrhage and intraventricular hemorrhage Patient with right-sided hemiplegia Physical and occupational therapy 4. Coronary artery disease Continue with metoprolol. Resume ASA after surgery. Asymptomatic at this time 5. DVT prophylaxis with SCDs. Would continue to hold off on chemical prophylaxis given patient's traumatic brain injury and extensive hemorrhage that he had. DW patient's at bedside. Code Visit Inpatient E&M: 41600 Subs Hosp L2
--- NOTE | 2018-01-25 11:38 | PCM.PN.ID ---
Subjective: Feeling ok, no fever, no n/v. - Physical Exam General: Alert, Cooperative, No apparent distress Lungs: Clear to auscultation, Normal air movement Cardiovascular: Regular rate, Regular Rhythm Abdomen: Soft, Non Tender, Non-Distended Skin: Ulcer/ Wound - bandaged Vital Signs Temp Pulse Resp BP Pulse Ox 98.7 F 85 18 149/79 H 96 01/25/18 05:00 01/25/18 07:26 01/25/18 07:26 01/25/18 05:24 01/25/18 07:26 Oxygen Flow Rate (L/min) 5 Oxygen Delivery Method Room Air Weight: 106.1 kg Body Mass Index (BMI) 30.0 Finger Stick Blood Glucose 212 Intake and Output for Last 24 Hours 01/23/18 01/24/18 01/25/18 23:59 23:59 23:59 Intake Total 3777 / 3777 2460 / 2460 618 / 618 Output Total 5200 / 5200 4675 / 4675 2975 / 2975 Balance -1423 / -1423 -2215 / -2215 -2357 / -2357 Microbiology Past 72 Hours 01/22/18 Unknown Gram Stain - Final Tissue - Sacral Wound Culture - Preliminary Serratia marcescens GPC Poss Enterococcus sp Anaerobic Culture - Preliminary Checking for anaerobes, further studies to follow. 01/22/18 Unknown Gram Stain - Final Bone - Site Wound Culture - Final No growth aerobically. Anaerobic Culture - Preliminary No growth in 48 hours. Laboratory Tests Past 24 Hrs 01/25/18 01/25/18 01/25/18 07:45 07:45 07:45 WBC 8.1 RBC 3.01 L Hgb 9.5 L Hct 29.0 L MCV 96.3 H MCH 31.6 MCHC 32.8 RDW 14.7 H RDW Differential 48.2 H Plt Count 288 MPV 10.3 Immature Gran % (Auto) 0.200 Neut % (Auto) 68.2 Lymph % (Auto) 16.7 L [place] % (Auto) 12.5 H Eos % (Auto) 2.0 Baso % (Auto) 0.4 Absolute Neuts (auto) 5.5 Absolute Lymphs (auto) 1.35 Total Counted Not Reportable Sodium 137 Potassium 3.8 Chloride 100 Carbon Dioxide 31.0 Anion Gap 6 BUN 11 Creatinine 0.55 L Estim Creat Clear Calc 83.34 Est GFR (MDRD) Af Amer 191 Est GFR (MDRD) Non-Af 158 BUN/Creatinine Ratio 20.0 Glucose 242 H Calcium 8.8 Vitamin B12 722 Folate 24.40 POC Glucose 01/25/18 01/24/18 01/24/18 08:43 22:05 17:02 POC Glucose 290 H 276 H 220 H 01/24/18 11:53 POC Glucose 309 H Medical Necessity - Tobacco Use Smoking Status: Former smoker Route of nutrition/ use of supplements: [] Nutritional Intake: [] IV Site: [] Lane Catheter: [] - Assessment/Plan Antibiotics: [] Assessment/Plan: [] Infected sacral decub ulcer - wound cx with mssa, e.faecalis, strep. Recent admit with aspiration pneumonia and sputum cx with mssa. H/o hives with PCN, but tolerated zosyn and cefepime while at [facility]. Prior surg cx with ecoli. With suspected osteo, treat with zosyn to cover the organisms seen. Taken to OR by Dr. Juarez 01/22, surg cx from then with resistant serratia and possible enterococcus. Spoke with micro lab, and serratia is likely intermediate to zosyn. Will add bactrim for serratia coverage. Diverting ostomy planned. Will follow
--- NOTE | 2018-01-25 11:43 | NURSING ---
wound photo: sacrum
[2018-01-25 11:45] LABS: Bedside Glucose 305 mg/dL (70-110)
--- NOTE | 2018-01-25 12:13 | CASEMGMT ---
Addendum entered by Zakiya Duran 01/25/18 13:56: SW attempted to see pt to provide update on TCU accepting pt but pt soundly sleeping. SW will update pt at a later time. Original Note: Social Work Note Pt is scheduled to have surgery later this week possibly Thursday. SW placed a call to referral line to update Yrai of this. Plan: TCU pending pre-cert Zakiya Duran INFORMATION ASSURANCE MANAGER, SITE SAFETY REPRESENTATIVE
[2018-01-25] MEDS: Smz/Tmp Ds Tablet 1 TABLET PO ×2 (13:07→21:53)
[2018-01-25] MEDS: Magnesium Citrate 300 ML 150 ML PO (13:07)
--- NOTE | 2018-01-25 14:22 | NURSING ---
Patient marked in the left lower quadrant for a diverting loop colostomy with skin pen. applied an opsite to cover leobardo. plan is for surgery later this week after bowel prep. Discussed with . Colostomy booklet reviewed as well as some other ostomy education with patient and .
[2018-01-25] MEDS: Amitriptyline 25 MG Tablet PO (21:53)
[2018-01-25] MEDS: Tamsulosin HCl 0.4 MG Capsule PO (21:53)
[2018-01-25] MEDS: Pramipexole Di-HCl 0.25 MG Tablet PO (21:54)
[2018-01-25] MEDS: Pravastatin 80 MG Tablet PO (21:54)
[2018-01-25 22:20] LABS: Bedside Glucose 272 mg/dL (70-110)
--- NOTE | 2018-01-25 23:01 | PCM.PN.SRG ---
Subjective: Postop #3 Patient is resting comfortably. - Physical Exam General: Alert, Oriented x3 HEENT: PERRLA, EOMI Oral: Moist Mucosa Neck: Supple Abdomen: Soft, Non-Distended Extremities: Edema - mild edema in lower extremities. Skin: Ulcer/ Wound - sacral pressure sore is stable. No further evidence of infection. No bleeding seen. Difficult to place the VAC because of its proximity to the anal opening. Also a colostomy is being planned later in the week and the patient will undergo a bowel prep. Will place VAC after that surgery is done. The wound was redressed with Aquacel Silver and moistened Kerlix gauze. Neurological: Cranial nerves II-XII grossly intact Psych/Mental Status: Normal Affect, Appropriate Vital Signs Temp Pulse Resp BP Pulse Ox 97.5 F L 111 H 16 120/62 95 01/25/18 21:48 01/25/18 21:54 01/25/18 21:48 01/25/18 21:48 01/25/18 21:48 Oxygen Flow Rate (L/min) 5 Oxygen Delivery Method Room Air Weight: 233 lb 14.567 oz Body Mass Index (BMI) 30.0 Finger Stick Blood Glucose 212 Intake and Output for Last 24 Hours 01/23/18 01/24/18 01/25/18 23:59 23:59 23:59 Intake Total 3777 / 3777 2460 / 2460 1672 / 1672 Output Total 5200 / 5200 4675 / 4675 3875 / 3875 Balance -1423 / -1423 -2215 / -2215 -2203 / -2203 Microbiology Past 72 Hours 01/22/18 Unknown Gram Stain - Final Tissue - Sacral Wound Culture - Preliminary Serratia marcescens GPC Poss Enterococcus sp Anaerobic Culture - Preliminary Checking for anaerobes, further studies to follow. 01/22/18 Unknown Gram Stain - Final Bone - Site Wound Culture - Final No growth aerobically. Anaerobic Culture - Preliminary No growth in 48 hours. Pathology - pending Laboratory Tests Past 24 Hrs 01/25/18 01/25/18 01/25/18 07:45 07:45 07:45 WBC 8.1 RBC 3.01 L Hgb 9.5 L Hct 29.0 L MCV 96.3 H MCH 31.6 MCHC 32.8 RDW 14.7 H RDW Differential 48.2 H Plt Count 288 MPV 10.3 Immature Gran % (Auto) 0.200 Neut % (Auto) 68.2 Lymph % (Auto) 16.7 L [place] % (Auto) 12.5 H Eos % (Auto) 2.0 Baso % (Auto) 0.4 Absolute Neuts (auto) 5.5 Absolute Lymphs (auto) 1.35 Total Counted Not Reportable Sodium 137 Potassium 3.8 Chloride 100 Carbon Dioxide 31.0 Anion Gap 6 BUN 11 Creatinine 0.55 L Estim Creat Clear Calc 83.34 Est GFR (MDRD) Af Amer 191 Est GFR (MDRD) Non-Af 158 BUN/Creatinine Ratio 20.0 Glucose 242 H Calcium 8.8 Vitamin B12 722 Folate 24.40 POC Glucose 01/25/18 01/25/18 01/25/18 22:13 11:37 08:43 POC Glucose 272 H 305 H 290 H Medical Necessity - Tobacco Use Smoking Status: Former smoker Assessment/Plan All Active Problems (Last Updated 01/15/18 @ 18:40 by Darnell Felix DO) Alcohol intoxication (Resolved) Acute respiratory failure (Acute) Aspiration pneumonia (Acute) Acute and chronic respiratory failure with hypoxia (Acute) Sepsis (Resolved) Healthcare associated bacteremia due to Staphylococcus aureus (Resolved) Infected decubitus ulcer (Acute) Infected decubitus ulcer (Acute) FUO (fever of unknown origin) (Acute) Demand ischemia (Resolved) Systolic CHF, acute (Acute) Acute respiratory failure with hypoxia and hypercarbia (Resolved) Multifocal community-acquired pneumonia (Resolved) Severe sepsis (Resolved) 1. Sacral pressure sore, Stage IV. 2. Traumatic brain injury. 3. Right sided hemiplegia. 4. Osteomyelitis. 5. Diabetes mellitus. Continue IV Zosyn. Operative culture shows Serratia marcescens and Gram positive cocci possible Enterococcus. Bactrim was added. Pathology is pending. With suspected osteomyelitis, will need [facility]iary IV antibiotics. Wound looked clean without further evidence of infection. No bleeding seen. Wound redressed with Aquacel Silver. Will hold off on the VAC for now. Patient is going to have a colostomy later this week and will undergo a bowel prep. Will place the VAC after that surgery. Prealbumin was 15.4. Encourage nutritional supplementation with protein to help the healing process. Hgb is stable at 9.5. Continue Iron supplementation. After surgery, the patient may benefit from a short stay at an ECF. He will have complex wound care with the VAC combined with penitentiary antibiotics.
[2018-01-26] VITALS (9 sets, daily range): BP systolic 99–139; BP diastolic 54–80; PULSE 82–110; RESP 14–20; TEMP 36.6–37.2; O2SAT 95–100
[2018-01-26 01:41] LABS: Bedside Glucose 246 mg/dL (70-110)
[2018-01-26] MEDS: Iron Polysaccharide Complex 150 MG CAPSULE PO (06:08)
[2018-01-26] MEDS: Piperacil/Tazobactam 3.375 GM/50 ML ML IV ×3 (06:08→22:24)
[2018-01-26] MEDS: Metoprolol Tartrate 50 MG Tablet 150 MG PO ×3 (06:08→22:24)
[2018-01-26] MEDS: Budesonide Respules 0.5 MG/2 ML AMPUL.NEB. INHALATION ×2 (07:10→19:14)
[2018-01-26] MEDS: Insulin Lispro 100 UNIT/ML INSULN.PEN 15 UNIT SC ×3 (08:15→16:58)
[2018-01-26] MEDS: Smz/Tmp Ds Tablet 1 TABLET PO ×2 (08:15→16:58)
[2018-01-26] MEDS: Polyethylene Glycol 3350 17 GM PACKET PO (08:17)
[2018-01-26] MEDS: Ascorbic Acid 500 MG Tablet 1000 MG PO (08:17)
[2018-01-26] MEDS: Furosemide 40 MG Tablet PO ×2 (08:18→16:59)
[2018-01-26] MEDS: Pantoprazole Sodium 40 MG Tablet PO (08:18)
[2018-01-26] MEDS: Amantadine 100 MG Capsule PO (08:18)
[2018-01-26] MEDS: Magnesium Oxide 400 MG Tablet PO ×3 (08:18→16:58)
[2018-01-26] MEDS: traMADol 50 MG Tablet PO (08:56)
[2018-01-26 09:26] LABS: Bedside Glucose 201 mg/dL (70-110)
[2018-01-26 09:33] LABS: Hematocrit 28.3 % (40-54); Hemoglobin 8.8 g/dl (13.0-16.5); Mean Corp Hgb Conc 31.1 g/gl (32-36); Mean Corpuscular Hgb 29.8 pg (27.0-32.0); Mean Corpuscular Volume 95.9 fL (80-94); Mean Platelet Vol. 9.9 fl (6.2-12.0); Platelet Count 306 K/mm3 (150-450); RBC Distribution Width CV 15.2 % (11.6-14.6); RBC Distribution Width SD 53.1 fl (35.1-43.9); Red Blood Count 2.95 M/mm3 (4.6-6.2)
[2018-01-26 09:36] LABS: Scan Indicated on CBC? Y/N NO
--- NOTE | 2018-01-26 10:05 | NURSING ---
Talked with Dr Arias. plan is for diverting colostomy on 01/29/18. CAMILA Narvaez aware. plan will be for clear liquids Thursday and . pt is slowly getting bowel prep. patient and aware as well of plan for surgery Thursday. dressing to sacrum changed at this time. see wound intervention.
[2018-01-26 10:06] LABS: Anion Gap 5 (5-15); BUN 13 mg/dL (7-18); BUN/Creat Ratio 18.1 RATIO (10-20); Chloride 99 mmol/L (98-107); Creatinine, Serum 0.72 mg/dL (0.70-1.30); EST Glomerular Filtration Rate 116 mL/min (>60); Est Glom Filt Rate - Afr Amer 140 mL/min (>60); Estimated Creatinine Clearance 83.34 ml/min; Glucose 257 mg/dL (74-106); Potassium 4.9 mmol/L (3.5-5.1); Sodium Level 135 mmol/L (136-145)
--- NOTE | 2018-01-26 10:26 | PCM.PN.HOSP ---
Subjective: Doing ok, appears withdrawn and not very communicative. Denies significant abdominal pain Vitals/I&O's: Vital Signs Temp Pulse Resp BP Pulse Ox 99 F 82 20 H 137/64 H 95 01/26/18 03:05 01/26/18 07:10 01/26/18 07:10 01/26/18 06:08 01/26/18 07:10 Oxygen Flow Rate (L/min) 5 Oxygen Delivery Method Room Air Weight: 233 lb 14.567 oz Body Mass Index (BMI) 30.0 Finger Stick Blood Glucose 212 Intake and Output for Last 24 Hours 01/24/18 01/25/18 01/26/18 23:59 23:59 23:59 Intake Total 2460 / 2460 1672 / 1672 609.6 / 609.6 Output Total 4675 / 4675 3875 / 3875 1175 / 1175 Balance -2215 / -2215 -2203 / -2203 -565.4 / -565.4 General: Alert, Oriented x3, No apparent distress HEENT: Atraumatic, EOMI, Normocephalic Oral: Moist Mucosa Neck: Supple, No JVD Lungs: Clear to auscultation, Normal air movement, No rhonchi, No wheeze, No rales Cardiovascular: Regular rate, Regular Rhythm, Normal S1, Normal S2, No murmurs Abdomen: Soft, Non Tender, Non-Distended, No Hepato-splenomegaly Extremities: No edema Skin: Ulcer/ Wound - on buttock stage 4 decub Neurological: - - very minimal movement of his right arm, no facial droop or slurred speech Psych/Mental Status: Flat Affect Microbiology Past 72 Hours 01/22/18 Unknown Tissue - Sacral Gram Stain - Final 01/22/18 Unknown Tissue - Sacral Wound Culture - Final Serratia marcescens Vancomycin Resist. E. faecium 01/22/18 Unknown Tissue - Sacral Anaerobic Culture - Preliminary Checking for anaerobes, further studies to follow. 01/22/18 Unknown Bone - Site Gram Stain - Final 01/22/18 Unknown Bone - Site Wound Culture - Final No growth aerobically. 01/22/18 Unknown Bone - Site Anaerobic Culture - Preliminary No growth in 48 hours. Laboratory Results 01/25/18 11:37: POC Glucose 305 H 01/25/18 16:39: POC Glucose 246 H 01/25/18 22:13: POC Glucose 272 H 01/26/18 08:12: POC Glucose 201 H 01/26/18 09:15: WBC 8.0, RBC 2.95 L, Hgb 8.8 L, Hct 28.3 L, MCV 95.9 H, MCH 29.8, MCHC 31.1 L, RDW 15.2 H, RDW Differential 53.1 H, Plt Count 306, MPV 9.9 01/26/18 09:15: Sodium 135 L, Potassium 4.9, Chloride 99, Carbon Dioxide 31.0, Anion Gap 5, BUN 13, Creatinine 0.72, Estim Creat Clear Calc 83.34, Est GFR (MDRD) Af Amer 140, Est GFR (MDRD) Non-Af 116, BUN/Creatinine Ratio 18.1, Glucose 257 H, Calcium 9.0 Current Medications Acetaminophen (Tylenol) 650 mg PO Q6H PRN PRN PRN Reason: pain/fever Last Admin: 01/24/18 08:23 Dose: 650 mg Albuterol/Ipratropium (Duoneb) 3 ml INHALATION Q2H PRN PRN PRN Reason: SHORTNESS OF BREATH Amantadine HCl (Symmetrel) 100 mg PO DAILY [facility] Last Admin: 01/26/18 08:18 Dose: 100 mg Ascorbic Acid (Vitamin C) 1,000 mg PO DAILY@0800 [facility] Last Admin: 01/26/18 08:17 Dose: 1,000 mg Budesonide (Pulmicort Aerosol) 0.5 mg INHALATION BID.RT [facility] Diazepam (Valium) 2 mg PO 4X/DAY PRN PRN PRN Reason: SPASMS Last Admin: 01/24/18 10:46 Dose: 2 mg Furosemide (Lasix) 40 mg PO BIDLX [facility] Last Admin: 01/26/18 08:18 Dose: 40 mg Hydromorphone HCl (Dilaudid Inj) 0.5 mg IV Q4H PRN PRN PRN Reason: SEVERE PAIN (6-10/10) Piperacillin Sod/Tazobactam Sod (Zosyn) 3.375 gm in 50 mls @ 12.5 mls/hr IV Q8 [facility] Last Admin: 01/26/18 06:08 Dose: 12.5 mls/hr Lactated Ringer's () 1,000 mls @ 15 mls/hr IV .Q48H [facility] Last Admin: 01/24/18 22:00 Dose: 15 mls/hr Sodium Chloride () 250 mls @ 15 mls/hr IV .[id number] PRN PRN Reason: SALINE FLUSH Last Admin: 01/24/18 22:00 Dose: 15 mls/hr Insulin Glargine (Lantus ([facility])) 20 units SC 0800,2200 [facility] Last Admin: 01/26/18 08:16 Dose: 20 u Insulin Human Lispro (Humalog Kwikpen ([facility])) 15 unit SC TIDCM [facility] Last Admin: 01/26/18 08:15 Dose: 15 u Lactobacillus Acidophilus (Acidophilus) 1 tablet PO BID [facility] Last Admin: 01/26/18 08:17 Dose: 1 tablet Linezolid (Zyvox) 600 mg PO BID [facility] Magnesium Oxide (Mag-Ox 400) 400 mg PO TIDCM [facility] Last Admin: 01/26/18 08:18 Dose: 400 mg Metoprolol Tartrate (Lopressor (Beta Devante)) 150 mg PO TID [facility] Last Admin: 01/26/18 06:08 Dose: 150 mg Nitroglycerin (Nitrostat) 0.4 mg SUBLINGUAL Q5M PRN PRN Reason: Chest Pain Nutritional Formula ([place] Flavor) [facility] Last Admin: 01/26/18 08:15 Dose: 1 packet Ondansetron HCl (Zofran) 4 mg IV Q6H PRN PRN PRN Reason: NAUSEA Oxycodone HCl (Oxyir) 10 mg PO Q4H PRN PRN PRN Reason: SEVERE PAIN (6-10/10) Last Admin: 01/25/18 09:47 Dose: 10 mg Pantoprazole Sodium (Protonix) 40 mg PO DAILY [facility] Last Admin: 01/26/18 08:18 Dose: 40 mg Polyethylene Glycol (Miralax) 17 gm PO DAILY [facility] Last Admin: 01/26/18 08:17 Dose: 17 gm Polysaccharide Iron Complex (Ferrex 150) 150 mg PO DAILY@0700 [facility] Last Admin: 01/26/18 06:08 Dose: 150 mg Potassium Bicarb/Potassium Chloride (Potassium Chl 25 Meq Eff (For Liquid)) [facility] Last Admin: 01/26/18 08:16 Dose: 50 meq Pramipexole Dihydrochloride (Mirapex) 0.25 mg PO QHS [facility] Last Admin: 01/25/18 21:54 Dose: 0.25 mg Pravastatin Sodium (Pravachol) 80 mg PO QHS [facility] Last Admin: 01/25/18 21:54 Dose: 80 mg Promethazine HCl (Phenergan Tablet) 25 mg PO Q4H PRN PRN PRN Reason: NAUSEA/VOMITING Sodium Chloride () 10 ml IV UD PRN PRN Reason: PICC FLUSH Last Admin: 01/25/18 07:52 Dose: 10 ml Sodium Hypochlorite (Dakins Solution 0.25% (1/2 Strength)) 1 applic TOPICAL BID [facility] PRN Reason: Protocol Tamsulosin HCl (Flomax) 0.4 mg PO QHS [facility] Last Admin: 01/25/18 21:53 Dose: 0.4 mg Tramadol HCl (Ultram) 50 mg PO TID PRN PRN PRN Reason: PAIN Last Admin: 01/26/18 08:56 Dose: 50 mg Trimethoprim/Sulfamethoxazole (Bactrim Ds) [facility] Last Admin: 01/26/18 08:15 Dose: 1 tablet Zolpidem Tartrate (Ambien (Generic)) 5 mg PO QHS PRN PRN PRN Reason: SLEEP Medical Necessity - Tobacco Use Smoking Status: Former smoker Assessment/Plan All Active Problems (Last Updated 01/15/18 @ 18:40 by Darnell Felix DO) Alcohol intoxication (Resolved) Acute respiratory failure (Acute) Aspiration pneumonia (Acute) Acute and chronic respiratory failure with hypoxia (Acute) Sepsis (Resolved) Healthcare associated bacteremia due to Staphylococcus aureus (Resolved) Infected decubitus ulcer (Acute) Infected decubitus ulcer (Acute) FUO (fever of unknown origin) (Acute) Demand ischemia (Resolved) Systolic CHF, acute (Acute) Acute respiratory failure with hypoxia and hypercarbia (Resolved) Multifocal community-acquired pneumonia (Resolved) Severe sepsis (Resolved) 1. Infected Stage 4 ulcer - Cultures positive for serratia and VRE - Will need to broaden coverage, per ID - Hold tramadol given zyvox and risk for serotonin syndrome, dilaudid and oxy in place - Will have a diverting colostomy and a suprapubic catheter placed on thursday - goal to have wound vac placed by wound nurse on thursday after surgery - Plan to return to TCU for therapy 2. TBI/Dysphagia - Happened in October and has not been home since with extensive hospitalization both here and in [place] - right sided hemiplegia from the intracranial hemorrhage - c/w speech therapy as well as PT/OT 3. CAD/HTN/HLD/ischemic cardiomyopathy - stable - c/w metoprolol and can resume ASA next week - c/w lasix 4. IDDM2 - Blood sugars are elevated above 200 - Lantus 20 U and humalog 15 U TID - Will monitor and make adjustments 5. COPD - Stable - c/w duonebs and pulmicort 6. GERD - stable - c/w protonix 7. Insomnia - c/w zolpidem 8. restless legs syndrome - stable - c/w pramipexole DVT: SCDs Diet: DM Code: FULL Dispo: TCU Code Visit Inpatient E&M: 61691 Subs Hosp L3
--- NOTE | 2018-01-26 10:28 | PCM.PN.ID ---
Subjective: Feeling ok, no fever, no nausea. No new rash with bactrim. - Physical Exam General: Alert, Cooperative, No apparent distress Lungs: Clear to auscultation, Normal air movement Cardiovascular: Regular rate, Regular Rhythm Abdomen: Soft, Non Tender, Non-Distended Skin: No rashes, Ulcer/ Wound - sacrum, reviewed photo Vital Signs Temp Pulse Resp BP Pulse Ox 99 F 82 20 H 137/64 H 95 01/26/18 03:05 01/26/18 07:10 01/26/18 07:10 01/26/18 06:08 01/26/18 07:10 Oxygen Flow Rate (L/min) 5 Oxygen Delivery Method Room Air Weight: 106.1 kg Body Mass Index (BMI) 30.0 Finger Stick Blood Glucose 212 Intake and Output for Last 24 Hours 01/24/18 01/25/18 01/26/18 23:59 23:59 23:59 Intake Total 2460 / 2460 1672 / 1672 609.6 / 609.6 Output Total 4675 / 4675 3875 / 3875 1175 / 1175 Balance -2215 / -2215 -2203 / -2203 -565.4 / -565.4 Microbiology Past 72 Hours 01/22/18 Unknown Gram Stain - Final Tissue - Sacral Wound Culture - Final Serratia marcescens Vancomycin Resist. E. faecium Anaerobic Culture - Preliminary Checking for anaerobes, further studies to follow. 01/22/18 Unknown Gram Stain - Final Bone - Site Wound Culture - Final No growth aerobically. Anaerobic Culture - Preliminary No growth in 48 hours. Laboratory Tests Past 24 Hrs 01/26/18 01/26/18 09:15 09:15 WBC 8.0 RBC 2.95 L Hgb 8.8 L Hct 28.3 L MCV 95.9 H MCH 29.8 MCHC 31.1 L RDW 15.2 H RDW Differential 53.1 H Plt Count 306 MPV 9.9 Sodium 135 L Potassium 4.9 Chloride 99 Carbon Dioxide 31.0 Anion Gap 5 BUN 13 Creatinine 0.72 Estim Creat Clear Calc 83.34 Est GFR (MDRD) Af Amer 140 Est GFR (MDRD) Non-Af 116 BUN/Creatinine Ratio 18.1 Glucose 257 H Calcium 9.0 POC Glucose 01/26/18 01/25/18 01/25/18 08:12 22:13 16:39 POC Glucose 201 H 272 H 246 H 01/25/18 11:37 POC Glucose 305 H Medical Necessity - Tobacco Use Smoking Status: Former smoker Route of nutrition/ use of supplements: [] Nutritional Intake: [] IV Site: [] Lane Catheter: [] - Assessment/Plan Antibiotics: [] Assessment/Plan: [] Infected sacral decub ulcer - wound cx with mssa, e.faecalis, strep. Recent admit with aspiration pneumonia and sputum cx with mssa. H/o hives with PCN, but tolerated zosyn and cefepime while at [facility]. Prior surg cx with ecoli. With suspected osteo, treat with zosyn to cover the organisms seen. Taken to OR by Dr. Juarez 01/22, surg cx from then with resistant serratia and VRE. Added bactrim for serratia coverage; now will add linezolid for VRE. Stopped TCA, avoid or cut back on tramadol if possible. Diverting ostomy planned. Will follow, d/w primary team
[2018-01-26] MEDS: Magnesium Citrate 300 ML 150 ML PO ×2 (10:49→22:18)
[2018-01-26] MEDS: Linezolid 600 MG Tablet PO ×2 (11:52→22:25)
[2018-01-26] MEDS: 0.9% NaCl PICC Flush 10 ML IV (11:53)
[2018-01-26] MEDS: diazePAM 2 MG Tablet PO (11:59)
--- NOTE | 2018-01-26 12:01 | CASEMGMT ---
Social Work Note Pt is scheduled for surgery Thursday. CONTRERAS placed a call to Yari in TCU and updated her of this. Pre-cert will need to be submitted after pt's has surgery. Plan: TCU pending pre-cert Zakiya RAMOS, OWNER/PHOTOGRAPHER
[2018-01-26 12:16] LABS: Bedside Glucose 249 mg/dL (70-110)
--- NOTE | 2018-01-26 13:27 | PCM.PN.SRG ---
Subjective: Patient has no new complaints. He is having bowel movements with the magnesium citrate - Physical Exam General: Alert, Oriented x3, Cooperative, No apparent distress Abdomen: Soft, Non Tender, Non-Distended, - - Stoma site is marked and covered with OpSite, PEG is in place clean dry and intact Vital Signs Temp Pulse Resp BP Pulse Ox 97.8 F 91 14 99/54 L 96 01/26/18 09:00 01/26/18 09:00 01/26/18 09:00 01/26/18 09:00 01/26/18 09:00 Oxygen Flow Rate (L/min) 5 Oxygen Delivery Method Room Air Weight: 233 lb 14.567 oz Body Mass Index (BMI) 30.0 Finger Stick Blood Glucose 212 Intake and Output for Last 24 Hours 01/24/18 01/25/18 01/26/18 23:59 23:59 23:59 Intake Total 2460 / 2460 1672 / 1672 2362.6 / 2362.6 Output Total 4675 / 4675 3875 / 3875 2024 / 2024 Balance -2215 / -2215 -2203 / -2203 337.6 / 337.6 Microbiology Past 72 Hours 01/22/18 Unknown Gram Stain - Final Tissue - Sacral Wound Culture - Final Serratia marcescens Vancomycin Resist. E. faecium Anaerobic Culture - Preliminary Checking for anaerobes, further studies to follow. 01/22/18 Unknown Gram Stain - Final Bone - Site Wound Culture - Final No growth aerobically. Anaerobic Culture - Preliminary No growth in 48 hours. Laboratory Tests Past 24 Hrs 01/26/18 01/26/18 09:15 09:15 WBC 8.0 RBC 2.95 L Hgb 8.8 L Hct 28.3 L MCV 95.9 H MCH 29.8 MCHC 31.1 L RDW 15.2 H RDW Differential 53.1 H Plt Count 306 MPV 9.9 Sodium 135 L Potassium 4.9 Chloride 99 Carbon Dioxide 31.0 Anion Gap 5 BUN 13 Creatinine 0.72 Estim Creat Clear Calc 83.34 Est GFR (MDRD) Af Amer 140 Est GFR (MDRD) Non-Af 116 BUN/Creatinine Ratio 18.1 Glucose 257 H Calcium 9.0 POC Glucose 01/26/18 01/26/18 01/25/18 11:51 08:12 22:13 POC Glucose 249 H 201 H 272 H 08/20/18 16:39 POC Glucose 246 H Medical Necessity - Tobacco Use Smoking Status: Former smoker Assessment/Plan All Active Problems (Last Updated 01/15/18 @ 18:40 by Darnell Felix DO) Alcohol intoxication (Resolved) Acute respiratory failure (Acute) Aspiration pneumonia (Acute) Acute and chronic respiratory failure with hypoxia (Acute) Sepsis (Resolved) Healthcare associated bacteremia due to Staphylococcus aureus (Resolved) Infected decubitus ulcer (Acute) Infected decubitus ulcer (Acute) FUO (fever of unknown origin) (Acute) Demand ischemia (Resolved) Systolic CHF, acute (Acute) Acute respiratory failure with hypoxia and hypercarbia (Resolved) Multifocal community-acquired pneumonia (Resolved) Severe sepsis (Resolved) 67-year-old male with infected sacral decubitus ulcer status post debridement, need for diverting colostomy 1. We will plan for a diverting colostomy on Thursday at 9 AM. Will continue a slow bowel prep as he did have a lot of stool in his colon on previous CT. We will try to avoid a lot of diarrhea as that would just contaminate the wound. Discussed with the patient and his that likely would be doing a end colostomy due to the fact that would have less issues with hernias or prolapse and it could be used long-term if needed however would also be reversible if needed as well. Patient and his were agreeable with plan. Joann Arias M.D. Pager: [phone] [facility] [address] [place] [address], [facility], [address] [place] [address] Office: [phone] Code Visit Inpatient E&M: 36785 Subs Hosp L1
[2018-01-26 17:15] LABS: Bedside Glucose 226 mg/dL (70-110)
[2018-01-26] MEDS: Tamsulosin HCl 0.4 MG Capsule PO (22:23)
[2018-01-26] MEDS: Pravastatin 80 MG Tablet PO (22:24)
[2018-01-26] MEDS: Pramipexole Di-HCl 0.25 MG Tablet PO (22:24)
--- NOTE | 2018-01-26 22:33 | PCM.PN.SRG ---
Subjective: Postop #4 Patient is resting comfortably. Getting a bowel prep for colostomy surgery later in week. - Physical Exam Vital Signs Temp Pulse Resp BP Pulse Ox 98.4 F 106 H 18 139/80 H 95 01/26/18 20:50 01/26/18 20:50 01/26/18 20:50 01/26/18 20:50 01/26/18 20:50 Oxygen Flow Rate (L/min) 5 Oxygen Delivery Method Room Air Weight: 233 lb 14.567 oz Body Mass Index (BMI) 30.0 Finger Stick Blood Glucose 212 Intake and Output for Last 24 Hours 01/24/18 01/25/18 01/26/18 23:59 23:59 23:59 Intake Total 2460 / 2460 1672 / 1672 3069.6 / 3069.6 Output Total 4675 / 4675 3875 / 3875 2975 / 2975 Balance -2215 / -2215 -2203 / -2203 94.6 / 94.6 Microbiology Past 72 Hours 01/22/18 Unknown Gram Stain - Final Tissue - Sacral Wound Culture - Final Serratia marcescens Vancomycin Resist. E. faecium Anaerobic Culture - Preliminary Checking for anaerobes, further studies to follow. 01/22/18 Unknown Gram Stain - Final Bone - Site Wound Culture - Final No growth aerobically. Anaerobic Culture - Preliminary No growth in 48 hours. Laboratory Tests Past 24 Hrs 01/26/18 01/26/18 09:15 09:15 WBC 8.0 RBC 2.95 L Hgb 8.8 L Hct 28.3 L MCV 95.9 H MCH 29.8 MCHC 31.1 L RDW 15.2 H RDW Differential 53.1 H Plt Count 306 MPV 9.9 Sodium 135 L Potassium 4.9 Chloride 99 Carbon Dioxide 31.0 Anion Gap 5 BUN 13 Creatinine 0.72 Estim Creat Clear Calc 83.34 Est GFR (MDRD) Af Amer 140 Est GFR (MDRD) Non-Af 116 BUN/Creatinine Ratio 18.1 Glucose 257 H Calcium 9.0 POC Glucose 01/26/18 01/26/18 01/26/18 16:56 11:51 08:12 POC Glucose 226 H 249 H 201 H 01/25/18 16:39 POC Glucose 246 H Medical Necessity - Tobacco Use Smoking Status: Former smoker Assessment/Plan All Active Problems (Last Updated 01/15/18 @ 18:40 by Darnell Felix DO) Alcohol intoxication (Resolved) Acute respiratory failure (Acute) Aspiration pneumonia (Acute) Acute and chronic respiratory failure with hypoxia (Acute) Sepsis (Resolved) Healthcare associated bacteremia due to Staphylococcus aureus (Resolved) Infected decubitus ulcer (Acute) Infected decubitus ulcer (Acute) FUO (fever of unknown origin) (Acute) Demand ischemia (Resolved) Systolic CHF, acute (Acute) Acute respiratory failure with hypoxia and hypercarbia (Resolved) Multifocal community-acquired pneumonia (Resolved) Severe sepsis (Resolved) 1. Sacral pressure sore, Stage IV. 2. Traumatic brain injury. 3. Right sided hemiplegia. 4. Osteomyelitis. 5. Diabetes mellitus. 6. Moderate second degree malnutrition. Continue IV Zosyn and Bactrim. Operative culture shows Serratia marcescens and VRE. Zyvox was added. Pathology is pending. With suspected osteomyelitis, will need [facility] IV antibiotics. Wound looked clean without further evidence of infection. No bleeding seen. Wound redressed with Aquacel Silver. Will hold off on the VAC for now. Patient is going to have a colostomy later this week and is undergoing a bowel prep. Will place the VAC after that surgery. Hgb has decreased to 8.8 from 9.5. Continue Iron supplementation. After surgery, the patient may benefit from a short stay at an ECF. He will have complex wound care with the VAC combined with termite inspector antibiotics. Patient has had recent severe weight loss (>5% in 1 month) and moderate suboptimal energy intake. Prealbumin was 15.4. Encourage nutritional supplementation with protein to help the healing process. He is on [place].
[2018-01-27] VITALS (10 sets, daily range): BP systolic 101–153; BP diastolic 57–72; PULSE 81–106; RESP 16–19; TEMP 36.6–36.9; O2SAT 95–98
[2018-01-27 00:30] LABS: Bedside Glucose 273 mg/dL (70-110)
[2018-01-27 06:04] LABS: Absolute Lymphocyte Count 1.59 X10^3/ul (0.83-4.51); Absolute Neutrophil Count 4.7 X10^3/uL (2.0-7.7); Basophil# 0.04 X10^3/uL; Basophil% 0.5 % (0-1); Eosinophil# 0.17 X10^3/uL; Eosinophils% 2.3 % (0-5); Hematocrit 27.7 % (40-54); Hemoglobin 9.1 g/dl (13.0-16.5); Lymphocyte # 1.59 X10^3/ul (4.0); Lymphocyte % 21.2 % (19-41); Mean Corp Hgb Conc 32.9 g/gl (32-36); Mean Corpuscular Hgb 31.5 pg (27.0-32.0); Mean Corpuscular Volume 95.8 fL (80-94); Mean Platelet Vol. 10.2 fl (6.2-12.0); Monocyte# 0.97 X10^3/uL; Monocyte% 12.9 % (0-10); Neutrophil # 4.72 X10^3/uL (2.7-7.7); Neutrophil % 62.8 % (47-70); Platelet Count 271 K/mm3 (150-450); RBC Distribution Width CV 14.7 % (11.6-14.6); RBC Distribution Width SD 48.5 fl (35.1-43.9); Red Blood Count 2.89 M/mm3 (4.6-6.2); White Blood Count 7.5 K/mm3 (4.4-11.0)
[2018-01-27 06:07] LABS: POSITIVE COUNT NO; POSITIVE DIFFERENTIAL NO; POSITIVE MORPHOLOGY NO
[2018-01-27 06:22] LABS: Anion Gap 11 (5-15); BUN 15 mg/dL (7-18); BUN/Creat Ratio 27.2 RATIO (10-20); Chloride 99 mmol/L (98-107); Creatinine, Serum 0.55 mg/dL (0.70-1.30); EST Glomerular Filtration Rate 157 mL/min (>60); Est Glom Filt Rate - Afr Amer 190 mL/min (>60); Estimated Creatinine Clearance 83.34 ml/min; Glucose 236 mg/dL (74-106); Potassium 4.1 mmol/L (3.5-5.1); Sodium Level 137 mmol/L (136-145)
[2018-01-27] MEDS: Budesonide Respules 0.5 MG/2 ML AMPUL.NEB. INHALATION ×2 (06:26→19:27)
[2018-01-27] MEDS: Piperacil/Tazobactam 3.375 GM/50 ML ML IV ×3 (07:05→22:49)
[2018-01-27] MEDS: Metoprolol Tartrate 50 MG Tablet 150 MG PO ×2 (07:06→14:09)
[2018-01-27] MEDS: Iron Polysaccharide Complex 150 MG CAPSULE PO (07:06)
[2018-01-27] MEDS: Ascorbic Acid 500 MG Tablet 1000 MG PO (09:29)
[2018-01-27] MEDS: Polyethylene Glycol 3350 17 GM PACKET PO (09:30)
[2018-01-27] MEDS: Magnesium Oxide 400 MG Tablet PO (09:30)
[2018-01-27] MEDS: Amantadine 100 MG Capsule PO (09:30)
[2018-01-27] MEDS: Linezolid 600 MG Tablet PO (09:30)
[2018-01-27] MEDS: Pantoprazole Sodium 40 MG Tablet PO (09:30)
[2018-01-27] MEDS: Insulin Lispro 100 UNIT/ML INSULN.PEN 15 UNIT SC ×3 (09:31→16:55)
[2018-01-27] MEDS: Smz/Tmp Ds Tablet 1 TABLET PO (09:35)
[2018-01-27] MEDS: diazePAM 2 MG Tablet PO (09:35)
[2018-01-27] MEDS: Furosemide 40 MG Tablet PO (09:52)
--- NOTE | 2018-01-27 10:49 | PCM.PN.SRG ---
Subjective: pt having good response with slow prep- clears today. - Physical Exam General: Alert, Oriented x3, Cooperative, No apparent distress Abdomen: Soft, Non Tender, Non-Distended Vital Signs Temp Pulse Resp BP Pulse Ox 98.4 F 81 18 101/57 L 97 01/27/18 09:26 01/27/18 09:26 01/27/18 09:26 01/27/18 09:26 01/27/18 09:26 Oxygen Flow Rate (L/min) 5 Oxygen Delivery Method Room Air Weight: 233 lb 14.567 oz Body Mass Index (BMI) 30.0 Finger Stick Blood Glucose 212 Intake and Output for Last 24 Hours 01/25/18 01/26/18 01/27/18 23:59 23:59 23:59 Intake Total 1672 / 1672 3069.6 / 3069.6 546.4 / 546.4 Output Total 3875 / 3875 2975 / 2975 2850 / 2850 Balance -2203 / -2203 94.6 / 94.6 -2303.6 / -2303.6 Microbiology Past 72 Hours 01/22/18 Unknown Gram Stain - Final Bone - Site Wound Culture - Final No growth aerobically. Anaerobic Culture - Final No growth in 5 days. 01/22/18 Unknown Gram Stain - Final Tissue - Sacral Wound Culture - Final Serratia marcescens Vancomycin Resist. E. faecium Anaerobic Culture - Final No anaerobic bacteria isolated. Laboratory Tests Past 24 Hrs 01/27/18 01/27/18 05:50 05:50 WBC 7.5 RBC 2.89 L Hgb 9.1 L Hct 27.7 L MCV 95.8 H MCH 31.5 MCHC 32.9 RDW 14.7 H RDW Differential 48.5 H Plt Count 271 MPV 10.2 Immature Gran % (Auto) 0.300 Neut % (Auto) 62.8 Lymph % (Auto) 21.2 [place] % (Auto) 12.9 H Eos % (Auto) 2.3 Baso % (Auto) 0.5 Absolute Neuts (auto) 4.7 Absolute Lymphs (auto) 1.59 Total Counted Not Reportable Sodium 137 Potassium 4.1 Chloride 99 Carbon Dioxide 27.0 Anion Gap 11 BUN 15 Creatinine 0.55 L Estim Creat Clear Calc 83.34 Est GFR (MDRD) Af Amer 190 Est GFR (MDRD) Non-Af 157 BUN/Creatinine Ratio 27.2 H Glucose 236 H Calcium 9.0 POC Glucose 01/26/18 01/26/18 01/26/18 22:17 16:56 11:51 POC Glucose 273 H 226 H 249 H Medical Necessity - Tobacco Use Smoking Status: Former smoker Assessment/Plan All Active Problems (Last Updated 01/15/18 @ 18:40 by Darnell Felix DO) Malnutrition of moderate degree (Acute) Alcohol intoxication (Resolved) Acute respiratory failure (Acute) Aspiration pneumonia (Acute) Acute and chronic respiratory failure with hypoxia (Acute) Sepsis (Resolved) Healthcare associated bacteremia due to Staphylococcus aureus (Resolved) Infected decubitus ulcer (Acute) Infected decubitus ulcer (Acute) FUO (fever of unknown origin) (Acute) Demand ischemia (Resolved) Systolic CHF, acute (Acute) Acute respiratory failure with hypoxia and hypercarbia (Resolved) Multifocal community-acquired pneumonia (Resolved) Severe sepsis (Resolved) 67-year-old male with infected sacral decubitus ulcer status post debridement, need for diverting colostomy 1. We will plan for a diverting colostomy on Thursday at 9 AM. will check KUB to evaluate how the slow prep is going. Joann Arias M.D. Pager: [phone] [facility] [address] [place] [address], [facility], [address] [place] [id number] Office: [phone]
--- NOTE | 2018-01-27 12:06 | NURSING ---
spoke with Michelle Skiver Machine Operator regarding change in diet and NPO. states she will be up to see pt when done rounding on another floor and provide her recommendations
--- NOTE | 2018-01-27 12:21 | PCM.PN.HOSP ---
Subjective: Unchanged from yesterday. Did discuss his mental health and he feels that he is ok at the moment though at a time he was severely depressed with the state of his health. Objective: General: Alert, Oriented x3, No apparent distress HEENT: Atraumatic, EOMI, Normocephalic Oral: Moist Mucosa Neck: Supple, No JVD Lungs: Clear to auscultation, Normal air movement, No rhonchi, No wheeze, No rales Cardiovascular: Regular rate, Regular Rhythm, Normal S1, Normal S2, No murmurs Abdomen: Soft, Non Tender, Non-Distended, No Hepato-splenomegaly Extremities: No edema Skin: Ulcer/ Wound - on buttock stage 4 decub Neurological: - - very minimal movement of his right arm, no facial droop or slurred speech Psych/Mental Status: Flat Affect Vitals/I&O's: Vital Signs Temp Pulse Resp BP Pulse Ox 98.4 F 81 18 101/57 L 97 01/27/18 09:26 01/27/18 09:26 01/27/18 09:26 01/27/18 09:26 01/27/18 09:26 Oxygen Flow Rate (L/min) 5 Oxygen Delivery Method Room Air Weight: 233 lb 14.567 oz Body Mass Index (BMI) 30.0 Finger Stick Blood Glucose 212 Intake and Output for Last 24 Hours 01/25/18 01/26/18 01/27/18 23:59 23:59 23:59 Intake Total 1672 / 1672 3069.6 / 3069.6 546.4 / 546.4 Output Total 3875 / 3875 2975 / 2975 2850 / 2850 Balance -2203 / -2203 94.6 / 94.6 -2303.6 / -2303.6 Microbiology Past 72 Hours 01/22/18 Unknown Bone - Site Gram Stain - Final 01/22/18 Unknown Bone - Site Wound Culture - Final No growth aerobically. 01/22/18 Unknown Bone - Site Anaerobic Culture - Final No growth in 5 days. 01/22/18 Unknown Tissue - Sacral Gram Stain - Final 01/22/18 Unknown Tissue - Sacral Wound Culture - Final Serratia marcescens Vancomycin Resist. E. faecium 01/22/18 Unknown Tissue - Sacral Anaerobic Culture - Final No anaerobic bacteria isolated. Laboratory Results 01/26/18 16:56: POC Glucose 226 H 01/26/18 22:17: POC Glucose 273 H 01/27/18 05:50: WBC 7.5, RBC 2.89 L, Hgb 9.1 L, Hct 27.7 L, MCV 95.8 H, MCH 31.5, MCHC 32.9, RDW 14.7 H, RDW Differential 48.5 H, Plt Count 271, MPV 10.2, Immature Gran % (Auto) 0.300, Neut % (Auto) 62.8, Lymph % (Auto) 21.2, [place] % (Auto) 12.9 H, Eos % (Auto) 2.3, Baso % (Auto) 0.5, Absolute Neuts (auto) 4.7, Absolute Lymphs (auto) 1.59, Total Counted Not Reportable 01/27/18 05:50: Sodium 137, Potassium 4.1, Chloride 99, Carbon Dioxide 27.0, Anion Gap 11, BUN 15, Creatinine 0.55 L, Estim Creat Clear Calc 83.34, Est GFR (MDRD) Af Amer 190, Est GFR (MDRD) Non-Af 157, BUN/Creatinine Ratio 27.2 H, Glucose 236 H, Calcium 9.0 Current Medications Acetaminophen (Tylenol) 650 mg PO Q6H PRN PRN PRN Reason: pain/fever Last Admin: 01/24/18 08:23 Dose: 650 mg Albuterol/Ipratropium (Duoneb) 3 ml INHALATION Q2H PRN PRN PRN Reason: SHORTNESS OF BREATH Amantadine HCl (Symmetrel) 100 mg PO DAILY [facility] Last Admin: 01/27/18 09:30 Dose: 100 mg Ascorbic Acid (Vitamin C) 1,000 mg PO DAILY@0800 [facility] Last Admin: 01/27/18 09:29 Dose: 1,000 mg Budesonide (Pulmicort Aerosol) 0.5 mg INHALATION BID.RT [facility] Last Admin: 01/27/18 06:26 Dose: 0.5 mg Diazepam (Valium) 2 mg PO 4X/DAY PRN PRN PRN Reason: SPASMS Last Admin: 01/27/18 09:35 Dose: 2 mg Furosemide (Lasix) 40 mg PO BIDLX [facility] Last Admin: 01/27/18 09:52 Dose: 40 mg Hydromorphone HCl (Dilaudid Inj) 0.5 mg IV Q4H PRN PRN PRN Reason: SEVERE PAIN (6-10/10) Piperacillin Sod/Tazobactam Sod (Zosyn) 3.375 gm in 50 mls @ 12.5 mls/hr IV Q8 [facility] Last Admin: 01/27/18 07:05 Dose: 12.5 mls/hr Lactated Ringer's () 1,000 mls @ 15 mls/hr IV .Q48H [facility] Last Admin: 01/26/18 22:11 Dose: Not Given Sodium Chloride () 250 mls @ 15 mls/hr IV .[id number] PRN PRN Reason: SALINE FLUSH Last Admin: 01/24/18 22:00 Dose: 15 mls/hr Insulin Glargine (Lantus ([facility])) 30 units SC 0800,2200 [facility] Last Admin: 01/27/18 09:33 Dose: 30 units Insulin Human Lispro (Humalog Kwikpen ([facility])) 15 unit SC TIDCM [facility] Last Admin: 01/27/18 09:31 Dose: 15 u Lactobacillus Acidophilus (Acidophilus) 1 tablet PO BID [facility] Last Admin: 01/27/18 09:30 Dose: 1 tablet Linezolid (Zyvox) 600 mg PO BID [facility] Last Admin: 01/27/18 09:30 Dose: 600 mg Magnesium Citrate (Citrate Of Magnesia) 150 ml PO X1 ONE Stop: 01/27/18 13:01 Magnesium Oxide (Mag-Ox 400) 400 mg PO TIDCM [facility] Last Admin: 01/27/18 09:30 Dose: 400 mg Metoprolol Tartrate (Lopressor (Beta Devante)) 150 mg PO TID [facility] Last Admin: 01/27/18 07:06 Dose: 150 mg Nitroglycerin (Nitrostat) 0.4 mg SUBLINGUAL Q5M PRN PRN Reason: Chest Pain Nutritional Formula ([place] - [place] Flavor) 1 packet PO BIDCM [facility] Last Admin: 01/27/18 09:30 Dose: 1 packet Nutritional Formula (Lactose Free) (Ensure Clear) 120 ml PO TIDCM [facility] Last Admin: 01/27/18 12:08 Dose: Not Given Ondansetron HCl (Zofran) 4 mg IV Q6H PRN PRN PRN Reason: NAUSEA Oxycodone HCl (Oxyir) 10 mg PO Q4H PRN PRN PRN Reason: SEVERE PAIN (6-10/10) Last Admin: 01/25/18 09:47 Dose: 10 mg Pantoprazole Sodium (Protonix) 40 mg PO DAILY [facility] Last Admin: 01/27/18 09:30 Dose: 40 mg Polyethylene Glycol (Miralax) 17 gm PO DAILY [facility] Last Admin: 01/27/18 09:30 Dose: 17 gm Polysaccharide Iron Complex (Ferrex 150) 150 mg PO DAILY@0700 [facility] Last Admin: 01/27/18 07:06 Dose: 150 mg Potassium Bicarb/Potassium Chloride (Potassium Chl 25 Meq Eff (For Liquid)) [facility] Last Admin: 01/27/18 09:30 Dose: 50 meq Pramipexole Dihydrochloride (Mirapex) 0.25 mg PO QHS [facility] Last Admin: 01/26/18 22:24 Dose: 0.25 mg Pravastatin Sodium (Pravachol) 80 mg PO QHS [facility] Last Admin: 01/26/18 22:24 Dose: 80 mg Promethazine HCl (Phenergan Tablet) 25 mg PO Q4H PRN PRN PRN Reason: NAUSEA/VOMITING Sodium Chloride () 10 ml IV UD PRN PRN Reason: PICC FLUSH Last Admin: 01/26/18 11:53 Dose: 10 ml Sodium Hypochlorite (Dakins Solution 0.25% (1/2 Strength)) 1 applic TOPICAL BID [facility] PRN Reason: Protocol Last Admin: 01/27/18 09:32 Dose: 1 applicatio Tamsulosin HCl (Flomax) 0.4 mg PO QHS [facility] Last Admin: 01/26/18 22:23 Dose: 0.4 mg Trimethoprim/Sulfamethoxazole ([facility]rim Ds) [facility] Last Admin: 01/27/18 09:35 Dose: 1 tablet Zolpidem Tartrate (Ambien (Generic)) 5 mg PO QHS PRN PRN PRN Reason: SLEEP Medical Necessity - Tobacco Use Smoking Status: Former smoker Assessment/Plan All Active Problems (Last Updated 01/15/18 @ 18:40 by Darnell Felix DO) Malnutrition of moderate degree (Acute) Alcohol intoxication (Resolved) Acute respiratory failure (Acute) Aspiration pneumonia (Acute) Acute and chronic respiratory failure with hypoxia (Acute) Sepsis (Resolved) Healthcare associated bacteremia due to Staphylococcus aureus (Resolved) Infected decubitus ulcer (Acute) Infected decubitus ulcer (Acute) FUO (fever of unknown origin) (Acute) Demand ischemia (Resolved) Systolic CHF, acute (Acute) Acute respiratory failure with hypoxia and hypercarbia (Resolved) Multifocal community-acquired pneumonia (Resolved) Severe sepsis (Resolved) 1. 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 TBI/Dysphagia - Happened in October and has not been home since with extensive hospitalization both here and in [place] - right sided hemiplegia from the intracranial hemorrhage - c/w speech therapy as well as PT/OT 3. CAD/HTN/HLD/ischemic cardiomyopathy - stable - c/w metoprolol and can resume ASA next week - c/w lasix 4. IDDM2 - Blood sugars are elevated above 200 - Lantus 30 U BID and humalog 15 U TID 5. COPD - Stable - c/w duonebs and pulmicort 6. GERD - stable - c/w protonix 7. Insomnia - c/w zolpidem 8. restless legs syndrome - stable - c/w pramipexole 9. Depression - Was on a TCA which was discontinued because of the zyvox, will hold off on SSRI or SNRI until abx are completed - He will need outpatient mental health after discharge DVT: SCDs Diet: DM Code: FULL Dispo: TCU Code Visit Inpatient E&M: 11847 Subs Hosp L2
[2018-01-27 12:40] LABS: Bedside Glucose 281 mg/dL (70-110)
[2018-01-27 12:40] LABS: Bedside Glucose 236 mg/dL (70-110)
[2018-01-27] MEDS: Magnesium Citrate 300 ML 150 ML PO (14:10)
--- NOTE | 2018-01-27 15:50 | PCM.PN.SRG ---
Subjective: Postop #5 Patient is resting comfortably. - Physical Exam General: Alert, Oriented x3 HEENT: PERRLA, EOMI Oral: Moist Mucosa Neck: Supple Abdomen: Soft, Non-Distended Skin: Ulcer/ Wound - sacral pressure sore is stable. No further evidence of infection. No bleeding seen. Difficult to place the VAC because of its proximity to the anal opening. Also a colostomy is being planned later in the week and the patient will undergo a bowel prep. Will place VAC after that surgery is done. The wound was redressed with Aquacel Silver and moistened Kerlix gauze. Neurological: Cranial nerves II-XII grossly intact Psych/Mental Status: Normal Affect, Appropriate Vital Signs Temp Pulse Resp BP Pulse Ox 98.4 F 99 18 119/62 95 01/27/18 14:07 01/27/18 14:09 01/27/18 14:07 01/27/18 14:07 01/27/18 14:07 Oxygen Flow Rate (L/min) 5 Oxygen Delivery Method Room Air Weight: 233 lb 14.567 oz Body Mass Index (BMI) 30.0 Finger Stick Blood Glucose 212 Intake and Output for Last 24 Hours 01/25/18 01/26/18 01/27/18 23:59 23:59 23:59 Intake Total 1672 / 1672 3069.6 / 3069.6 846.4 / 846.4 Output Total 3875 / 3875 2975 / 2975 3575 / 3575 Balance -2203 / -2203 94.6 / 94.6 -2728.6 / -2728.6 Microbiology Past 72 Hours 01/22/18 Unknown Gram Stain - Final Bone - Site Wound Culture - Final No growth aerobically. Anaerobic Culture - Final No growth in 5 days. 01/22/18 Unknown Gram Stain - Final Tissue - Sacral Wound Culture - Final Serratia marcescens Vancomycin Resist. E. faecium Anaerobic Culture - Final No anaerobic bacteria isolated. Pathology - negative for osteomyelitis. Laboratory Tests Past 24 Hrs 01/27/18 01/27/18 05:50 05:50 WBC 7.5 RBC 2.89 L Hgb 9.1 L Hct 27.7 L MCV 95.8 H MCH 31.5 MCHC 32.9 RDW 14.7 H RDW Differential 48.5 H Plt Count 271 MPV 10.2 Immature Gran % (Auto) 0.300 Neut % (Auto) 62.8 Lymph % (Auto) 21.2 [place] % (Auto) 12.9 H Eos % (Auto) 2.3 Baso % (Auto) 0.5 Absolute Neuts (auto) 4.7 Absolute Lymphs (auto) 1.59 Total Counted Not Reportable Sodium 137 Potassium 4.1 Chloride 99 Carbon Dioxide 27.0 Anion Gap 11 BUN 15 Creatinine 0.55 L Estim Creat Clear Calc 83.34 Est GFR (MDRD) Af Amer 190 Est GFR (MDRD) Non-Af 157 BUN/Creatinine Ratio 27.2 H Glucose 236 H Calcium 9.0 POC Glucose 01/27/18 01/27/18 01/26/18 12:27 09:06 22:17 POC Glucose 236 H 281 H 273 H 01/26/18 16:56 POC Glucose 226 H Medical Necessity - Tobacco Use Smoking Status: Former smoker Assessment/Plan All Active Problems (Last Updated 01/15/18 @ 18:40 by Darnell Felix DO) Malnutrition of moderate degree (Acute) Alcohol intoxication (Resolved) Acute respiratory failure (Acute) Aspiration pneumonia (Acute) Acute and chronic respiratory failure with hypoxia (Acute) Sepsis (Resolved) Healthcare associated bacteremia due to Staphylococcus aureus (Resolved) Infected decubitus ulcer (Acute) Infected decubitus ulcer (Acute) FUO (fever of unknown origin) (Acute) Demand ischemia (Resolved) Systolic CHF, acute (Acute) Acute respiratory failure with hypoxia and hypercarbia (Resolved) Multifocal community-acquired pneumonia (Resolved) Severe sepsis (Resolved) 1. Sacral pressure sore, Stage IV. 2. Traumatic brain injury. 3. Right sided hemiplegia. 4. Osteomyelitis. 5. Diabetes mellitus. 6. Moderate second degree malnutrition. 7. VRE. Continue IV Zosyn and Bactrim and Zyvox. Operative culture shows Serratia marcescens and VRE. Pathology is negative for osteomyelitis. With pathology negative, osteomyelitis is still clinically suspected, and will need shelter IV antibiotics. Wound looked clean without further evidence of infection. No bleeding seen. Wound redressed with Aquacel Silver. Will hold off on the VAC for now. Patient is going to have a colostomy later this week on Thursday and is undergoing a bowel prep. Will place the VAC after that surgery. Hgb improved to 9.1 from 8.8. Continue Iron supplementation. After surgery, the patient may benefit from a short stay at an ECF. He will have complex wound care with the VAC combined with shelter antibiotics. Patient has had recent severe weight loss (>5% in 1 month) and moderate suboptimal energy intake. Prealbumin was 15.4. Encourage nutritional supplementation with protein to help the healing process. He is on [place].
[2018-01-27] MEDS: Magnesium Oxide 400 MG Tablet GT (16:54)
[2018-01-27] MEDS: diazePAM 2 MG Tablet GT (16:54)
[2018-01-27] MEDS: Furosemide 40 MG Tablet GT (16:54)
[2018-01-27] MEDS: Smz/Tmp Ds Tablet 1 TABLET GT (16:55)
[2018-01-27 17:46] LABS: Bedside Glucose 145 mg/dL (70-110)
[2018-01-27 18:31] LABS: Bedside Glucose 126 mg/dL (70-110)
[2018-01-27 19:16] LABS: Bedside Glucose 111 mg/dL (70-110)
[2018-01-27] MEDS: Tamsulosin HCl 0.4 MG Capsule PO (22:47)
[2018-01-27] MEDS: Linezolid 600 MG Tablet GT (22:47)
[2018-01-27] MEDS: Pravastatin 80 MG Tablet GT (22:47)
[2018-01-27] MEDS: Pramipexole Di-HCl 0.25 MG Tablet GT (22:48)
[2018-01-27] MEDS: Metoprolol Tartrate 50 MG Tablet 150 MG GT (22:48)
[2018-01-27] MEDS: Magnesium Citrate 300 ML 150 ML GT (22:49)
[2018-01-27 23:26] LABS: Bedside Glucose 137 mg/dL (70-110)
[2018-01-28] VITALS (10 sets, daily range): BP systolic 124–136; BP diastolic 70–85; PULSE 57–113; RESP 16–18; TEMP 36.7–36.9; O2SAT 93–99
[2018-01-28] MEDS: Iron Polysaccharide Complex 150 MG CAPSULE GT (06:35)
[2018-01-28] MEDS: Piperacil/Tazobactam 3.375 GM/50 ML ML IV ×3 (06:35→21:00)
[2018-01-28] MEDS: Metoprolol Tartrate 50 MG Tablet 150 MG GT ×3 (06:35→21:02)
[2018-01-28] MEDS: Insulin Lispro 100 UNIT/ML INSULN.PEN SC ×2 (06:39→12:29)
[2018-01-28] MEDS: Budesonide Respules 0.5 MG/2 ML AMPUL.NEB. INHALATION ×2 (07:05→19:30)
[2018-01-28 07:15] LABS: Bedside Glucose 212 mg/dL (70-110)
[2018-01-28] MEDS: Magnesium Citrate 300 ML PO ×2 (09:27→14:31)
[2018-01-28] MEDS: Furosemide 40 MG Tablet GT ×2 (09:28→16:56)
[2018-01-28] MEDS: Magnesium Oxide 400 MG Tablet GT ×3 (09:28→16:56)
[2018-01-28] MEDS: Ascorbic Acid 500 MG Tablet 1000 MG GT (09:28)
[2018-01-28] MEDS: Linezolid 600 MG Tablet GT ×2 (09:28→21:02)
[2018-01-28] MEDS: Amantadine 100 MG Capsule GT (09:28)
[2018-01-28] MEDS: Smz/Tmp Ds Tablet 1 TABLET GT (09:28)
[2018-01-28] MEDS: Polyethylene Glycol 3350 17 GM PACKET GT (09:29)
--- NOTE | 2018-01-28 10:23 | PCM.PN.HOSP ---
Subjective: Same as yesterday, NAD, unable to eat per speech so no receiving TF Objective: General: Alert, Oriented x3, No apparent distress HEENT: Atraumatic, EOMI, Normocephalic Oral: Moist Mucosa Neck: Supple, No JVD Lungs: Clear to auscultation, Normal air movement, No rhonchi, No wheeze, No rales Cardiovascular: Regular rate, Regular Rhythm, Normal S1, Normal S2, No murmurs Abdomen: Soft, Non Tender, Non-Distended, No Hepato-splenomegaly, PEG tube Extremities: No edema Skin: Ulcer/ Wound - on buttock stage 4 decub Neurological: - - very minimal movement of his right arm, no facial droop or slurred speech Vitals/I&O's: Vital Signs Temp Pulse Resp BP Pulse Ox 98.3 F 64 16 136/70 H 95 01/28/18 09:16 01/28/18 09:16 01/28/18 09:16 01/28/18 09:16 01/28/18 09:16 Oxygen Flow Rate (L/min) 5 Oxygen Delivery Method Room Air Weight: 233 lb 14.567 oz Body Mass Index (BMI) 30.0 Finger Stick Blood Glucose 212 Intake and Output for Last 24 Hours 01/26/18 01/27/18 01/28/18 23:59 23:59 23:59 Intake Total 3069.6 / 3069.6 1206.4 / 1206.4 720 / 720 Output Total 2975 / 2975 3575 / 3575 Balance 94.6 / 94.6 -2368.6 / -2368.6 720 / 720 Microbiology Past 72 Hours 01/22/18 Unknown Bone - Site Gram Stain - Final 01/22/18 Unknown Bone - Site Wound Culture - Final No growth aerobically. 01/22/18 Unknown Bone - Site Anaerobic Culture - Final No growth in 5 days. 01/22/18 Unknown Tissue - Sacral Gram Stain - Final 01/22/18 Unknown Tissue - Sacral Wound Culture - Final Serratia marcescens Vancomycin Resist. E. faecium 01/22/18 Unknown Tissue - Sacral Anaerobic Culture - Final No anaerobic bacteria isolated. Laboratory Results 01/27/18 09:06: POC Glucose 281 H 01/27/18 12:27: POC Glucose 236 H 01/27/18 16:47: POC Glucose 145 H 01/27/18 18:24: POC Glucose 126 H 01/27/18 19:11: POC Glucose 111 H 01/27/18 22:51: POC Glucose 137 H 01/28/18 06:37: POC Glucose 212 H Current Medications Acetaminophen (Tylenol Liquid) 650 mg GT Q6H PRN PRN PRN Reason: pain/fever Albuterol/Ipratropium (Duoneb) 3 ml INHALATION Q2H PRN PRN PRN Reason: SHORTNESS OF BREATH Amantadine HCl () 100 mg GT DAILY COUNT INCLUDES THE [facility] Last Admin: 01/28/18 09:58 Dose: Not Given Ascorbic Acid (Vitamin C) 1,000 mg GT DAILY@0800 COUNT INCLUDES THE [facility] Last Admin: 01/28/18 09:28 Dose: 1,000 mg Budesonide (Pulmicort Aerosol) 0.5 mg INHALATION BID.RT COUNT INCLUDES THE [facility] Last Admin: 01/28/18 07:05 Dose: 0.5 mg Diazepam (Valium) 2 mg GT 4X/DAY PRN PRN PRN Reason: SPASMS Last Admin: 01/27/18 16:54 Dose: 2 mg Ferrous Sulfate (Ferrous Sulfate Syrup) 300 mg GT DAILY COUNT INCLUDES THE [facility] Last Admin: 01/28/18 10:23 Dose: Not Given Furosemide (Lasix) 40 mg GT BIDLX COUNT INCLUDES THE [facility] Last Admin: 01/28/18 09:28 Dose: 40 mg Hydromorphone HCl (Dilaudid Inj) 0.5 mg IV Q4H PRN PRN PRN Reason: SEVERE PAIN (6-10/10) Piperacillin Sod/Tazobactam Sod (Zosyn) 3.375 gm in 50 mls @ 12.5 mls/hr IV Q8 COUNT INCLUDES THE [facility] Last Admin: 01/28/18 06:35 Dose: 12.5 mls/hr Lactated Ringer's () 1,000 mls @ 15 mls/hr IV .Q48H COUNT INCLUDES THE [facility] Last Admin: 01/26/18 22:11 Dose: Not Given Sodium Chloride () 250 mls @ 15 mls/hr IV .[id number] PRN PRN Reason: SALINE FLUSH Last Admin: 01/24/18 22:00 Dose: 15 mls/hr Enteral Nutritional Formula (Glucerna 1.5) 1,000 mls @ 30 mls/hr GT .[id number] COUNT INCLUDES THE [facility] Last Admin: 01/27/18 17:05 Dose: 30 mls/hr Insulin Glargine (Lantus (Bkc)) 30 units SC 0800,2200 COUNT INCLUDES THE [facility] Last Admin: 01/28/18 09:30 Dose: 30 units Insulin Human Lispro (Humalog Kwikpen (Bkc)) 15 unit SC TIDCM COUNT INCLUDES THE [facility] Last Admin: 01/28/18 08:51 Dose: Not Given Insulin Human Lispro (Humalog Kwikpen (Bkc)) 0 unit SC ACHS COUNT INCLUDES THE [facility] PRN Reason: Protocol Last Admin: 01/28/18 06:39 Dose: 4 units Lactobacillus Acidophilus (Acidophilus) 1 tablet GT BID COUNT INCLUDES THE [facility] Last Admin: 01/28/18 09:37 Dose: 1 tablet Lansoprazole (Prevacid) 30 mg PO DAILY COUNT INCLUDES THE [facility] Linezolid (Zyvox) 600 mg GT BID COUNT INCLUDES THE [facility] Last Admin: 01/28/18 09:28 Dose: 600 mg Magnesium Citrate (Citrate Of Magnesia) 300 ml PO X1 ONE Stop: 01/28/18 15:01 Magnesium Oxide (Mag-Ox 400) 400 mg GT TIDCM COUNT INCLUDES THE [facility] Last Admin: 01/28/18 09:28 Dose: 400 mg Metoprolol Tartrate (Lopressor (Beta Devante)) 150 mg GT TID COUNT INCLUDES THE [facility] Last Admin: 01/28/18 06:35 Dose: 150 mg Nitroglycerin (Nitrostat) 0.4 mg SUBLINGUAL Q5M PRN PRN Reason: Chest Pain Nutritional Formula ([place] Flavor) 1 packet GT BIDCM COUNT INCLUDES THE [facility] Last Admin: 01/28/18 09:27 Dose: 1 packet Ondansetron HCl (Zofran) 4 mg IV Q6H PRN PRN PRN Reason: NAUSEA Oxycodone HCl (Oxyir) 10 mg GT Q4H PRN PRN PRN Reason: SEVERE PAIN (6-10/10) Polyethylene Glycol (Miralax) 17 gm GT DAILY COUNT INCLUDES THE [facility] Last Admin: 01/28/18 09:29 Dose: 17 gm Potassium Bicarb/Potassium Chloride (Potassium Chl 25 Meq Eff (For Liquid)) 50 meq GT BIDCM COUNT INCLUDES THE [facility] Last Admin: 01/28/18 09:28 Dose: 50 meq Pramipexole Dihydrochloride (Mirapex) 0.25 mg GT QHS COUNT INCLUDES THE [facility] Last Admin: 01/27/18 22:48 Dose: 0.25 mg Pravastatin Sodium (Pravachol) 80 mg GT QHS BULL Last Admin: 01/27/18 22:47 Dose: 80 mg Promethazine HCl (Phenergan Tablet) 25 mg GT Q4H PRN PRN PRN Reason: NAUSEA/VOMITING Sodium Chloride () 10 ml IV UD PRN PRN Reason: PICC FLUSH Last Admin: 01/26/18 11:53 Dose: 10 ml Sodium Hypochlorite (Dakins Solution 0.25% (1/2 Strength)) 1 applic TOPICAL BID BULL PRN Reason: Protocol Last Admin: 01/27/18 23:53 Dose: 1 applicatio Trimethoprim/Sulfamethoxazole (Bactrim Suspension 800-160mg/20ml) 20 ml GT BID COUNT INCLUDES THE [facility] Last Admin: 01/28/18 10:22 Dose: Not Given Zolpidem Tartrate (Ambien (Generic)) 5 mg GT QHS PRN PRN PRN Reason: SLEEP Medical Necessity - Tobacco Use Smoking Status: Former smoker Assessment/Plan All Active Problems (Last Updated 01/15/18 @ 18:40 by Darnell Felix DO) Malnutrition of moderate degree (Acute) Alcohol intoxication (Resolved) Acute respiratory failure (Acute) Aspiration pneumonia (Acute) Acute and chronic respiratory failure with hypoxia (Acute) Sepsis (Resolved) Healthcare associated bacteremia due to Staphylococcus aureus (Resolved) Infected decubitus ulcer (Acute) Infected decubitus ulcer (Acute) FUO (fever of unknown origin) (Acute) Demand ischemia (Resolved) Systolic CHF, acute (Acute) Acute respiratory failure with hypoxia and hypercarbia (Resolved) Multifocal community-acquired pneumonia (Resolved) Severe sepsis (Resolved) 1. 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 TBI/Dysphagia - Happened in October and has not been home since with extensive hospitalization both here and in [place] - right sided hemiplegia from the intracranial hemorrhage - c/w speech therapy as well as PT/OT - Speech states that he should be NPO so TF started at 40cc/hr - Any medications that can be crushed or converted to liquid will be. 3. CAD/HTN/HLD/ischemic cardiomyopathy - stable - c/w metoprolol and can resume ASA next week - c/w lasix 4. IDDM2 - Blood sugars are elevated above 200 - Lantus 30 U BID and humalog 15 U TID, no that he is on TF, will do SSI and make the adjustments that way - May still need meal time insulin 5. COPD - Stable - c/w duonebs and pulmicort 6. GERD - stable - c/w protonix 7. Insomnia - c/w zolpidem 8. restless legs syndrome - stable - c/w pramipexole 9. Depression - Was on a TCA which was discontinued because of the zyvox, will hold off on SSRI or SNRI until abx are completed - He will need outpatient mental health after discharge DVT: SCDs Diet: DM Code: FULL Dispo: TCU Code Visit Inpatient E&M: 87333 Subs Hosp L2
--- NOTE | 2018-01-28 11:01 | PCM.PN.ID ---
Subjective: Feeling ok, some abd soreness, no fever, no rash with abx. - Physical Exam General: Alert, Cooperative, No apparent distress Lungs: Clear to auscultation, Normal air movement Cardiovascular: Regular rate, Regular Rhythm Abdomen: Soft, Non Tender, Non-Distended Skin: No rashes Vital Signs Temp Pulse Resp BP Pulse Ox 98.3 F 64 16 136/70 H 95 01/28/18 09:16 01/28/18 09:16 01/28/18 09:16 01/28/18 09:16 01/28/18 09:16 Oxygen Flow Rate (L/min) 5 Oxygen Delivery Method Room Air Weight: 106.1 kg Body Mass Index (BMI) 30.0 Finger Stick Blood Glucose 212 Intake and Output for Last 24 Hours 01/26/18 01/27/18 01/28/18 23:59 23:59 23:59 Intake Total 3069.6 / 3069.6 1206.4 / 1206.4 720 / 720 Output Total 2975 / 2975 3575 / 3575 Balance 94.6 / 94.6 -2368.6 / -2368.6 720 / 720 Microbiology Past 72 Hours 01/22/18 Unknown Gram Stain - Final Bone - Site Wound Culture - Final No growth aerobically. Anaerobic Culture - Final No growth in 5 days. 01/22/18 Unknown Gram Stain - Final Tissue - Sacral Wound Culture - Final Serratia marcescens Vancomycin Resist. E. faecium Anaerobic Culture - Final No anaerobic bacteria isolated. POC Glucose 01/28/18 01/27/18 01/27/18 06:37 22:51 19:11 POC Glucose 212 H 137 H 111 H 01/27/18 01/27/18 01/27/18 18:24 16:47 12:27 POC Glucose 126 H 145 H 236 H 01/27/18 09:06 POC Glucose 281 H Medical Necessity - Tobacco Use Smoking Status: Former smoker Route of nutrition/ use of supplements: [] Nutritional Intake: [] IV Site: [] Lane Catheter: [] - Assessment/Plan Antibiotics: [] Assessment/Plan: [] Infected sacral decub ulcer - wound cx with mssa, e.faecalis, strep. Recent admit with aspiration pneumonia and sputum cx with mssa. H/o hives with PCN, but tolerated zosyn and cefepime while at [facility]. Prior surg cx with ecoli. With suspected osteo, treating with zosyn to cover the organisms seen. Taken to OR by Dr. Juarez 01/22, surg cx from then with resistant serratia and VRE. Added bactrim for serratia coverage; added linezolid for VRE. Stopped TCA, avoid or cut back on tramadol if possible. Diverting ostomy planned. Will follow
[2018-01-28] MEDS: HYDROmorphone 0.5 MG/0.5 ML SYRINGE IV (11:07)
--- NOTE | 2018-01-28 11:40 | NURSING ---
wound photo: sacrum
[2018-01-28] MEDS: Insulin Lispro 100 UNIT/ML INSULN.PEN 15 UNIT SC ×2 (12:29→16:57)
[2018-01-28 14:36] LABS: Bedside Glucose 235 mg/dL (70-110)
--- NOTE | 2018-01-28 15:41 | PCM.PN.SRG ---
Subjective: Patient is having results from his bowel prep, was started on tube feeds yesterday was supposed to be on clears. - Physical Exam General: Alert, Oriented x3, Cooperative Abdomen: Soft, Non Tender - No guarding or rebound, Non-Distended Vital Signs Temp Pulse Resp BP Pulse Ox 98.5 F 113 H 18 124/85 H 97 01/28/18 15:08 01/28/18 15:08 01/28/18 15:08 01/28/18 15:08 01/28/18 15:08 Oxygen Flow Rate (L/min) 5 Oxygen Delivery Method Room Air Weight: 233 lb 14.567 oz Body Mass Index (BMI) 30.0 Finger Stick Blood Glucose 212 Intake and Output for Last 24 Hours 01/26/18 01/27/18 01/28/18 23:59 23:59 23:59 Intake Total 3069.6 / 3069.6 1206.4 / 1206.4 1680 / 1680 Output Total 2975 / 2975 3575 / 3575 Balance 94.6 / 94.6 -2368.6 / -2368.6 1680 / 1680 Microbiology Past 72 Hours 01/22/18 Unknown Gram Stain - Final Bone - Site Wound Culture - Final No growth aerobically. Anaerobic Culture - Final No growth in 5 days. 01/22/18 Unknown Gram Stain - Final Tissue - Sacral Wound Culture - Final Serratia marcescens Vancomycin Resist. E. faecium Anaerobic Culture - Final No anaerobic bacteria isolated. POC Glucose 01/28/18 01/28/18 01/27/18 12:26 06:37 22:51 POC Glucose 235 H 212 H 137 H 01/27/18 01/27/18 01/27/18 19:11 18:24 16:47 POC Glucose 111 H 126 H 145 H Medical Necessity - Tobacco Use Smoking Status: Former smoker Assessment/Plan All Active Problems (Last Updated 01/15/18 @ 18:40 by Darnell Felix DO) Malnutrition of moderate degree (Acute) Alcohol intoxication (Resolved) Acute respiratory failure (Acute) Aspiration pneumonia (Acute) Acute and chronic respiratory failure with hypoxia (Acute) Sepsis (Resolved) Healthcare associated bacteremia due to Staphylococcus aureus (Resolved) Infected decubitus ulcer (Acute) Infected decubitus ulcer (Acute) FUO (fever of unknown origin) (Acute) Demand ischemia (Resolved) Systolic CHF, acute (Acute) Acute respiratory failure with hypoxia and hypercarbia (Resolved) Multifocal community-acquired pneumonia (Resolved) Severe sepsis (Resolved) 67-year-old male with infected sacral decubitus ulcer status post debridement, need for diverting colostomy 1. We will plan for a diverting colostomy on Thursday at 9 AM. Patient will get another thing of mag citrate shortly for the second 1 today. Patient was started on tube feeds yesterday. We will stop tube feeds, but okay for Ensure clear per PEG. Joann Arias M.D. Pager: [phone] [facility] [address] [place] [address], [facility], [address] [place] [address] Office: [phone]
[2018-01-28 17:21] LABS: Bedside Glucose 121 mg/dL (70-110)
[2018-01-28] MEDS: Pramipexole Di-HCl 0.25 MG Tablet GT (21:01)
[2018-01-28] MEDS: Lactated Ringers 1,000 ML 15 ML IV (21:02)
[2018-01-28] MEDS: Pravastatin 80 MG Tablet GT (21:02)
[2018-01-28] MEDS: SMZ/TPM Suspension 20 ML GT (21:03)
[2018-01-28] MEDS: Fleet Enema 1 ML RECTAL (21:03)
[2018-01-28 21:36] LABS: Bedside Glucose 150 mg/dL (70-110)
[2018-01-29] VITALS (32 sets, daily range): BP systolic 85–203; BP diastolic 36–111; PULSE 80–140; RESP 12–32; TEMP 36.3–37.2; O2SAT 91–100
--- NOTE | 2018-01-29 01:26 | NURSING ---
Pt cleaned up from diarrhea. greenish and mucus. noted. Pt repostion in bed
[2018-01-29] MEDS: 0.9% Normal Saline 1,000 ML 100 ML IV ×2 (02:56→13:28)
[2018-01-29] MEDS: Piperacil/Tazobactam 3.375 GM/50 ML ML IV ×3 (05:02→22:21)
[2018-01-29] MEDS: Metoprolol Tartrate 50 MG Tablet 150 MG GT ×2 (05:05→14:25)
[2018-01-29] MEDS: 0.9% NaCl PICC Flush 10 ML IV ×3 (05:30→05:32)
[2018-01-29 05:51] LABS: Absolute Lymphocyte Count 1.73 X10^3/ul (0.83-4.51); Absolute Neutrophil Count 4.7 X10^3/uL (2.0-7.7); Basophil# 0.05 X10^3/uL; Basophil% 0.6 % (0-1); Eosinophil# 0.17 X10^3/uL; Eosinophils% 2.2 % (0-5); Hematocrit 32.8 % (40-54); Hemoglobin 10.2 g/dl (13.0-16.5); Lymphocyte # 1.73 X10^3/ul (4.0); Lymphocyte % 22.4 % (19-41); Mean Corp Hgb Conc 31.1 g/gl (32-36); Mean Corpuscular Hgb 30.1 pg (27.0-32.0); Mean Corpuscular Volume 96.8 fL (80-94); Monocyte# 1.02 X10^3/uL; Monocyte% 13.2 % (0-10); Neutrophil # 4.73 X10^3/uL (2.7-7.7); Neutrophil % 61.5 % (47-70); Platelet Count 386 K/mm3 (150-450); RBC Distribution Width CV 15.3 % (11.6-14.6); RBC Distribution Width SD 53.6 fl (35.1-43.9); Red Blood Count 3.39 M/mm3 (4.6-6.2); White Blood Count 7.7 K/mm3 (4.4-11.0)
[2018-01-29 05:52] LABS: POSITIVE COUNT NO; POSITIVE DIFFERENTIAL NO; POSITIVE MORPHOLOGY NO
[2018-01-29 06:07] LABS: Anion Gap 11 (5-15); BUN 18 mg/dL (7-18); BUN/Creat Ratio 29.5 RATIO (10-20); Calcium,Total 9.5 mg/dL (8.5-10.1); Chloride 104 mmol/L (98-107); Creatinine, Serum 0.61 mg/dL (0.70-1.30); EST Glomerular Filtration Rate 140 mL/min (>60); Est Glom Filt Rate - Afr Amer 169 mL/min (>60); Estimated Creatinine Clearance 83.34 ml/min; Glucose 159 mg/dL (74-106); Potassium 3.8 mmol/L (3.5-5.1); Sodium Level 142 mmol/L (136-145)
[2018-01-29 07:06] LABS: Bedside Glucose 178 mg/dL (70-110)
--- NOTE | 2018-01-29 07:22 | NURSING ---
report called to ac. crump.
--- NOTE | 2018-01-29 07:57 | NURSING ---
pt is currently off the unit for surgery. pt is scheduled for a diverting colostomy this am per Dr Arias.
--- NOTE | 2018-01-29 09:41 | CASEMGMT ---
Social Work Note Pt to have surgery today. Pt will need pre-cert to return go to TCU. Plan: TCU pending pre-cert Zakiya Duran [employer], VIBRATION ANALYST
[2018-01-29] MEDS: Bupivacaine Mpf 0.5% 30 ML VIAL (11:00)
--- NOTE | 2018-01-29 11:21 | PCM.OPRPT ---
Report of Operation Date of Procedure: 01/22/18 Pre-Operative Diagnosis: 1. Infected sacral pressure sore, Stage IV. 2. Traumatic brain injury. 3. Right sided hemiplegia. Post-Operative Diagnosis: Same. Surgery/Procedure Performed:: Laparoscopic diverting end sigmoid colostomy Type of Anesthesia:: General Anesthesiologist: Herminio Mcfadden Drains: None. Estimated Blood Loss (mL): <20 cc Fluids Replaced: 1600 cc Description of Procedure: Indications this is a 67-year-old male who is paraplegic due to a stroke and also has an infected stage IV sacral ulcer. Risks and benefits were discussed with the patient and his for a diverting end colostomy. Description procedure: The patient was placed on operating table in supine position. General Anesthesia was induced. A timeout was completed verifying correct patient, procedure, site, position, social, and special equipment prior to beginning procedure. An orogastric tube was placed. The abdomen was prepped and draped in usual sterile fashion. An incision was made in the natural skin line above the umbilicus. The fascia was elevated and incised. The peritoneum was elevated and incised. Entry into the peritoneum was confirmed visually and no bowel was noted in the vicinity of the incision. Jones trocar was placed. The abdomen was insufflated with carbon dioxide to a pressure of 12-15 mmHg. Patient tolerated insufflation well. The laparoscope was then inserted and abdomen inspected. No injuries from initial trocar placement were noted. Additional trochars were then inserted in the following locations 5 mm trocar in the left upper and lower quadrant. The table is placed in reverse Trendelenburg position. The left upper quadrant trocar was exchanged out for a 12 mm trocar under direct visualization. The sigmoid colon was grasped with atraumatic grasper and hemostat was used to tunnel under the proximal rectum making room for the [place] 60 stapler. 2 loads of the blue 60 were used to come across the proximal rectum. The Enseal was then used to divide some of the mesentery to the distal sigmoid to allow it to reach the abdominal wall without tension. Once enough length was obtained with the sigmoid colon. Attention was turned to the ostomy site. The premarked site skin was excised and [place]'s were used to dissect down to the fascia which again was incised with electrocautery the muscle was split and the peritoneum was excised with electrocautery. The distal sigmoid was brought through the hole and orientation was confirmed to be correct and non-twisted. The colon did appear to be viable. The 12 mm trocar sites were closed with 0 Vicryl [id number] sutures. And skin were closed with 4-0 Monocryl interrupted sutures and Steri-Strips. The incisions were protected and the distal sigmoid colon was matured using 3-0 Vicryl to the skin with full-thickness bites into the colon. Finger was easily able to be passed through the stoma. Colostomy appliance was placed. Patient tolerated procedure well. He was taken intubated to the ICU. - Complications none
--- NOTE | 2018-01-29 12:07 | PCM.PN.ID ---
Subjective: Now s/p OR for diverting ostomy. No fever. In icu, on vent. - Physical Exam General: - - sedated Lungs: Diminished Cardiovascular: Tachycardic Abdomen: Soft, Non-Distended Skin: Ulcer/ Wound - wound vac in place Vital Signs Temp Pulse Resp BP Pulse Ox 98.2 F 88 19 H 147/73 H 97 01/29/18 07:02 01/29/18 07:02 01/29/18 07:02 01/29/18 07:02 01/29/18 07:02 Oxygen Flow Rate (L/min) 5 Oxygen Delivery Method Room Air Weight: 106.1 kg Body Mass Index (BMI) 30.0 Finger Stick Blood Glucose 212 Intake and Output for Last 24 Hours 01/27/18 01/28/18 01/29/18 23:59 23:59 23:59 Intake Total 1206.4 / 1206.4 3141 / 3141 471 / 471 Output Total 3575 / 3575 1600 / 1600 325 / 325 Balance -2368.6 / -2368.6 1541 / 1541 146 / 146 Microbiology Past 72 Hours 01/22/18 Unknown Gram Stain - Final Bone - Site Wound Culture - Final No growth aerobically. Anaerobic Culture - Final No growth in 5 days. 01/22/18 Unknown Gram Stain - Final Tissue - Sacral Wound Culture - Final Serratia marcescens Vancomycin Resist. E. faecium Anaerobic Culture - Final No anaerobic bacteria isolated. Laboratory Tests Past 24 Hrs 01/29/18 01/29/18 05:30 05:30 WBC 7.7 RBC 3.39 L Hgb 10.2 L Hct 32.8 L MCV 96.8 H MCH 30.1 MCHC 31.1 L RDW 15.3 H RDW Differential 53.6 H Plt Count 386 MPV 10.0 Immature Gran % (Auto) 0.100 Neut % (Auto) 61.5 Lymph % (Auto) 22.4 [place] % (Auto) 13.2 H Eos % (Auto) 2.2 Baso % (Auto) 0.6 Absolute Neuts (auto) 4.7 Absolute Lymphs (auto) 1.73 Total Counted Not Reportable Sodium 142 Potassium 3.8 Chloride 104 Carbon Dioxide 27.0 Anion Gap 11 BUN 18 Creatinine 0.61 L Estim Creat Clear Calc 83.34 Est GFR (MDRD) Af Amer 169 Est GFR (MDRD) Non-Af 140 BUN/Creatinine Ratio 29.5 H Glucose 159 H Calcium 9.5 POC Glucose 01/29/18 01/28/18 01/28/18 06:55 21:22 16:53 POC Glucose 178 H 150 H 121 H 01/28/18 12:26 POC Glucose 235 H Medical Necessity - Tobacco Use Smoking Status: Former smoker Route of nutrition/ use of supplements: [] Nutritional Intake: [] IV Site: [] Lane Catheter: [] - Assessment/Plan Antibiotics: [] Assessment/Plan: [] Infected sacral decub ulcer - wound cx with mssa, e.faecalis, strep. Recent admit with aspiration pneumonia and sputum cx with mssa. H/o hives with PCN, but tolerated zosyn and cefepime while at [facility]. Prior surg cx with ecoli. With suspected osteo, treating with zosyn to cover the organisms seen. Taken to OR by Dr. Juarez 01/22, surg cx from then with resistant serratia and VRE. Added bactrim for serratia coverage; added linezolid for VRE. Stopped TCA, avoid or cut back on tramadol if possible. Diverting ostomy done 01/29. Plan will be for 6 weeks of abx but may need to replace linezolid due to risk of toxicity with long courses. Will follow
[2018-01-29 13:21] LABS: CPK Total, Creatine Kinase 49 U/L (39-308); Triglycerides 160 mg/dL
[2018-01-29] MEDS: Propofol 10MG/Ml 1,000 MG/100 ML Bottle 3.183 MG CONT INF (13:29)
--- NOTE | 2018-01-29 13:51 | PCM.CON.CC ---
Problem List (1) Malnutrition of moderate degree Status: Acute (2) Hemiplegia affecting right dominant side Status: Chronic Qualifiers: Hemiplegia type: unspecified type Hemiplegia etiology: late effect of cerebrovascular disease Cerebrovascular disease type: cerebral infarction Qualified Code(s): I69.351 - Hemiplegia and hemiparesis following cerebral infarction affecting right dominant side (3) Osteomyelitis of sacrum Status: Chronic (4) Pressure injury of sacral region, stage 4 Status: Chronic (5) Traumatic brain injury Status: Chronic Qualifiers: Encounter type: sequela Loss of consciousness presence/duration: with LOC of unspecified duration Qualified Code(s): S06.9X9S - Unspecified intracranial injury with loss of consciousness of unspecified duration, sequela (6) Intraparenchymal hemorrhage of brain Status: Chronic (7) Subdural hematoma Status: Chronic (8) Intraventricular hemorrhage Status: Chronic (9) Tobacco abuse Status: Chronic (10) Acute respiratory failure Status: Acute (11) Dysphagia Status: Chronic (12) Vitamin D deficiency Status: Chronic (13) Depression Status: Chronic (14) GERD (gastroesophageal reflux disease) Status: Chronic Qualifiers: (15) BPH (benign prostatic hyperplasia) Status: Chronic (16) Congestive heart failure Status: Chronic (17) Sleep apnea Status: Chronic Reason for Consult Date of Consultation: 01/29/18 Reason for Consultation: Respiratory failure History of Present Illness: The patient is a 67 year old M, with past medical history as listed below, who presented to [facility] on 01/22/2018 secondary to a chronic sacral wound infection. Patient has had a complicated hospital course, but went today for an elective diverting colostomy to help with wound healing. Patient has been followed by infectious disease throughout the hospital course. Patient has had significant issues with dysphasia secondary to traumatic brain injury and has been receiving tube feeds. Patient reportedly underwent diverting colostomy without any issues earlier today. However, given patient's significant past medical history and comorbidities, patient was transferred to the intensive care unit by anesthesia for recovery. Patient did not have an attempt at liberation prior to transfer to the intensive care unit. Patient reportedly had received a dose of cisatracurium and 50 mcg of fentanyl just prior to arrival. On arrival to the intensive care unit patient was tachycardic into the 150s and hypertensive with systolics over 180. Patient was placed on propofol and fentanyl drips with improvement in blood pressure and heart rate. Patient was then placed and a spontaneous breathing trial and has tolerated 1 hour. ABG is currently pending. Patient states pain is well controlled at this time. Patient's is at the bedside and states that he was of his usual health status just prior to the surgery. Patient had no new complaints. Patient does have a history of COPD, but is never had pulmonary function testing. Patient does have a history of MSSA pneumonia in the past. Past Medical History Past Medical History (Chronic Problems): Chronic Problems (Last Reviewed 01/15/18 @ 18:40 by Darnell Felix DO) Hemiplegia affecting right dominant side (Chronic) 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, stage 4 (Chronic) Fall (Chronic) Traumatic brain injury (Chronic) Intraparenchymal hemorrhage of brain (Chronic) Subarachnoid hemorrhage (Chronic) Subdural hematoma (Chronic) Intraventricular hemorrhage (Chronic) Right scapula fracture (Chronic) Tobacco abuse (Chronic) Dysphagia (Chronic) Insomnia (Chronic) Vitamin D deficiency (Chronic) Depression (Chronic) GERD (gastroesophageal reflux disease) (Chronic) BPH (benign prostatic hyperplasia) (Chronic) Right hemiplegia (Chronic) Congestive heart failure (Chronic) Alcohol abuse (Chronic) Sleep apnea (Chronic) Diabetes mellitus (Chronic) Encounter for long-term current use of high risk medication (Chronic) Obstructive sleep apnea (Chronic) 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) S/P CABG x3 with right radial to LAD, SVG to RCA, and SVG to OM 2; stenting to LAD in February 2017; Presence of coronary angioplasty implant and graft (Chronic) Presence of aortocoronary bypass graft (Chronic) CABG X 3 2001 ?, Radial artery -LAD, SVG-RCA, SVG-OM2 Non-ST elevation myocardial infarction (NSTEMI), initial care episode (Chronic) 02/16/17 Ischemic cardiomyopathy (Chronic) Restless leg syndrome (Chronic) Hyperlipidemia (Chronic) Hypertensive emergency (Chronic) COPD (chronic obstructive pulmonary disease) (Chronic) Hypertension (Chronic) Morbid obesity (Chronic) CAD (coronary artery disease) (Chronic) Stented coronary artery (Chronic) [facility] w/[id number]-[id number]-[id number] LAD (grafts occluded X 3) 02/20/17 Former smoker (Chronic) quit February 2017 Diabetes mellitus type 2 in obese (Chronic) Hx of CABG (Chronic) CABG X3 rADIAL ARTERY-lad, svg-rca, svg-om2. 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) I25.810 S/P CABG x3 with right radial to LAD, SVG to RCA, and SVG to OM 2; stenting to LAD in February 2017; Non-ST elevation myocardial infarction (NSTEMI), initial care episode (Chronic) I21.4 02/16/17 Ischemic cardiomyopathy (Chronic) I25.5 FUO (fever of unknown origin) (Acute) Restless leg syndrome (Chronic) Hyperlipidemia (Chronic) E78.5 Hypertensive emergency (Chronic) I16.1 Demand ischemia (Resolved) I24.8 COPD (chronic obstructive pulmonary disease) (Chronic) J44.9 Hypertension (Chronic) I10 Morbid obesity (Chronic) E66.01 Systolic CHF, acute (Acute) I50.21 CAD (coronary artery disease) (Chronic) I25.10 Stented coronary artery (Chronic) [facility] w/STU-[id number]-Spbx LAD (grafts occluded X 3) 02/20/17 Former smoker (Chronic) Z87.891 quit February 2017 Diabetes mellitus type 2 in obese (Chronic) E11.69, E66.9 PEG (percutaneous endoscopic gastrostomy) adjustment/replacement/removal Z43.1 Nicotine dependence F17.200 Allergies atorvastatin Allergy (Verified 01/21/18 15:52) Hives cilostazol Allergy (Verified 01/21/18 15:52) Hives colestipol Allergy (Verified 01/21/18 15:52) Hives diltiazem Allergy (Verified 01/21/18 15:52) Hives gemfibrozil Allergy (Verified 01/21/18 15:52) Hives naproxen [From Naprosyn] Allergy (Verified 01/21/18 15:52) Hives niacin Allergy (Verified 01/21/18 15:52) Hives Penicillins Allergy (Verified 01/21/18 15:52) Hives pravastatin Allergy (Verified 01/21/18 15:52) Hives procaine [From Novocain] Allergy (Verified 01/21/18 15:52) Hives rosuvastatin Allergy (Verified 01/21/18 15:52) Hives simvastatin Allergy (Verified 01/21/18 15:52) Hives isosorbide Adverse Reaction (Severe, Verified 01/21/18 15:52) Unknown Home Medications: Ambulatory Orders Medication Instructions Recorded Acetaminophen [Tylenol] 650 mg PO Q6H PRN PRN 01/16/18 Amantadine [Symmetrel] 100 mg PO DAILY capsule 01/16/18 Budesonide Aerosol [Pulmicort 0.5 mg INHALATION BID 01/16/18 Respules] Furosemide [Lasix] 40 mg PO BIDLX tablet 01/16/18 Insulin Glargine [Lantus SoloStar 15 units SQ BID 01/16/18 Pen] Insulin Lispro [Humalog Benjie 7 unit SQ TIDCM 01/16/18 Kwikpen] Ipratropium/Albuterol Sulfate 3 ml INHALATION Q2H PRN PRN 01/16/18 [Duoneb] Metoprolol Tartrate 150 mg PO TID 01/16/18 Nitroglycerin [Nitrostat] 0.4 mg SUBLINGUAL Q5M PRN 01/16/18 Polyethylene Glycol 3350 [Miralax] 17 gm PO DAILY 01/16/18 Potassium Cloride Effervescent 50 meq PO BIDCM tablet.eff 01/16/18 [Potassium Chl 25 Meq Eff (For Liquid)] Pravastatin [Pravachol] 80 mg PO QHS 01/16/18 Tamsulosin HCl [Flomax] 0.4 mg PO QHS 01/16/18 Zolpidem Tartrate [Ambien] 5 mg PO QHS PRN PRN 01/16/18 traMADol [Ultram] 50 mg PO TID PRN PRN 01/16/18 Argin/Glut/Cahmb/Collag/Mv-Min 1 each PO BIDCM 01/22/18 [[place] Packet] Magnesium Oxide [Mag-Ox 400] 400 mg PO TIDCM 01/22/18 Pantoprazole Sodium [Protonix] 40 mg PO DAILY 01/22/18 Piperacil/Tazobactam [Zosyn] 3.375 gm IV Q8 01/22/18 Pramipexole Di-HCl [Mirapex] 0.25 mg PO QHS 01/22/18 Surgical History: Surgical History (Last Reviewed 01/15/18 @ 18:40 by Darnell Felix DO) Presence of coronary angioplasty implant and graft (Chronic) Z95.5 Presence of aortocoronary bypass graft (Chronic) Z95.1 CABG X 3 2001 ?, Radial artery -LAD, SVG-RCA, SVG-OM2 Hx of CABG (Chronic) CABG X3 rADIAL ARTERY-lad, svg-rca, svg-om2. MULTIPLE CORONARY STENTS Surgical History: angioplasty, coronary bypass surgery - x 3., - - PEG tube. Psychiatric History: Depression Smoking Status: Former smoker - *Family History Maternal Family History: Family History (Last Reviewed 01/15/18 @ 18:40 by Darnell Felix DO) Brother Heart disease Father Heart disease History Items: No pertinent history, - - Alzheimer Paternal Family History: Family History (Last Reviewed 01/15/18 @ 18:40 by Darnell Felix DO) Brother Heart disease Father Heart disease History Items: No pertinent history Review of Systems Unable to obtain accurate/complete ROS d/t: Intubated. See HPI per 's report Objective: Chest x-ray was personally reviewed. This shows the OG is slightly high, along with the endotracheal tube. Endotracheal tube was advanced 2 cm, but repeat x-ray was not completed. - Physical Exam General: Alert, Cooperative, No apparent distress, - - RASS -1. Appears older than stated age. HEENT: Atraumatic, PERRLA, EOMI, Normocephalic, - - No scleral icterus or injection noted. Oral: Moist Mucosa, No Gingival or Mucosal Lesions/ Ulcerations Neck: Supple, No JVD, Negative Carotid Bruits, No Nodes, No Nuchal Rigidity, Trachea Midline Lungs: No rhonchi, No wheeze, No rales, Diminished, - - Metric expansion. No dullness to percussion. Cardiovascular: Normal S1, Normal S2, No murmurs, No rub noted, No Gallop, Tachycardic Abdomen: Soft, Non Tender, Bowel Sounds Not Present, Distended, Obese Extremities: No clubbing, No cyanosis, Capillary Refill Less than 3 Seconds, Edema Skin: Ulcer/ Wound - Sacral wound was not evaluated, - - Ostomy in abdomen appears clean, dry and intact. Musculoskeletal: No Tenderness to Palpation of Joints or Extremities Lymphatic: No Cervical, Supraclavicular, or Inguinal Adenopathy Neurological: - - Patient with minimal movement of his right arm. No facial droop or pupillary dysfunction noted. Psych/Mental Status: Flat Affect Vital Signs Temp Pulse Resp BP Pulse Ox 36.8 C 140 H 19 H 203/111 H 100 01/29/18 11:45 01/29/18 11:45 01/29/18 07:02 01/29/18 11:45 01/29/18 11:45 Oxygen Flow Rate (L/min) 5 Oxygen Delivery Method Ambu-Bag Weight: 106.1 kg Body Mass Index (BMI) 30.0 Finger Stick Blood Glucose 212 Intake and Output for Last 24 Hours 01/27/18 01/28/18 01/29/18 23:59 23:59 23:59 Intake Total 1206.4 / 1206.4 3141 / 3141 471 / 471 Output Total 3575 / 3575 1600 / 1600 325 / 325 Balance -2368.6 / -2368.6 1541 / 1541 146 / 146 Microbiology Past 72 Hours 01/22/18 Unknown Gram Stain - Final Bone - Site Wound Culture - Final No growth aerobically. Anaerobic Culture - Final No growth in 5 days. 01/22/18 Unknown Gram Stain - Final Tissue - Sacral Wound Culture - Final Serratia marcescens Vancomycin Resist. E. faecium Anaerobic Culture - Final No anaerobic bacteria isolated. Laboratory Tests Past 24 Hrs 01/29/18 01/29/18 01/29/18 05:30 05:30 05:30 WBC 7.7 RBC 3.39 L Hgb 10.2 L Hct 32.8 L MCV 96.8 H MCH 30.1 MCHC 31.1 L RDW 15.3 H RDW Differential 53.6 H Plt Count 386 MPV 10.0 Immature Gran % (Auto) 0.100 Neut % (Auto) 61.5 Lymph % (Auto) 22.4 [place] % (Auto) 13.2 H Eos % (Auto) 2.2 Baso % (Auto) 0.6 Absolute Neuts (auto) 4.7 Absolute Lymphs (auto) 1.73 Total Counted Not Reportable Sodium 142 Potassium 3.8 Chloride 104 Carbon Dioxide 27.0 Anion Gap 11 BUN 18 Creatinine 0.61 L Estim Creat Clear Calc 83.34 Est GFR (MDRD) Af Amer 169 Est GFR (MDRD) Non-Af 140 BUN/Creatinine Ratio 29.5 H Glucose 159 H Calcium 9.5 Total Creatine Kinase 49 Triglycerides 160 POC Glucose 01/29/18 01/28/18 01/28/18 06:55 21:22 16:53 POC Glucose 178 H 150 H 121 H 01/28/18 12:26 POC Glucose 235 H Clinical Impression(s) from Imaging Studies KUB X-Ray 01/28/18 19:00 IMPRESSION: No obstruction. Improvement of stool. Electronically Signed: Car Obrien MD at 22:57 EDT , Service support , Assessment/Plan RECOMMENDATIONS: 1. ABG at the end of spontaneous breathing trial 2. Potential extubation later today 3. Await wound nurse and ID recommendations 4. Reinitiation of tube feeds per surgery 5. Continue nocturnal CPAP IMPRESSIONS: 1. Respiratory failure/COPD Patient was then extubated following surgery. Patient was on room air previously. Patient has been tolerating a spontaneous breathing trial for approximately 1 hour. We will continue with duo nebs and Pulmicort therapy as patient does not appear to be an acute exacerbation of COPD. Peak airway pressures are acceptable. If patient fails spontaneous breathing trial, reinitiation of propofol and fentanyl drip would be appropriate. Patient would benefit from CPAP overnight given the reported history of JIM 2. Traumatic brain injury/dysphasia/PEG/history of GERD Patient's neurologic exam appears to be consistent with previous documentation. Patient is currently receiving PEG feeds. Dietitian has given recommendations, but would defer to surgery on reinitiation of therapy. Patient can be continued on Protonix. 3. Coronary artery disease/hypertension/hyperlipidemia/ischemic cardiomyopathy/chronic systolic congestive heart failure Patient with an extensive urinary history with non-ST elevation HI in the past. Patient has had some improvement with a last known ejection fraction of 45%. Patient is on medical therapy at this time. Monitor with telemetry for any malignant type rhythms postoperatively. 4. Diabetes mellitus type 2/insomnia/restless leg syndrome/depression Complicates care, management, recovery and prognosis. Patient does have basal insulin needs the majority of the time. 2 feeds are currently on hold. We will continue with a sliding scale insulin. TIME: 45 minutes critical care time spent addressing patient's respiratory failure, congestive heart failure, review of all data and collaboration with care team (12:30 PM to 2:30 PM) Code Visit 9xxxx: [id number] Critical care first hour
[2018-01-29 14:16] LABS: Base Excess 2 mmol/L (-2 to +2); Blood Gas Specimen Type ART; FI02 50; Mode CPAP PS; O2 Delivery Device Vent; PEEP 5; PO2 102 mmHG (75-100); PS 5; SITE L Radial; SO2 98 % (95-99); Time Given 1408; Total Carbon Dioxide 27 mmol/L; pCO2 38.9 mmHg (35-45); pH 7.43 (7.35-7.45)
[2018-01-29] MEDS: Insulin Lispro 100 UNIT/ML INSULN.PEN SC ×2 (14:20→18:07)
[2018-01-29] MEDS: Polyethylene Glycol 3350 17 GM PACKET GT (14:24)
[2018-01-29] MEDS: Magnesium Oxide 400 MG Tablet GT (14:24)
[2018-01-29] MEDS: Linezolid 600 MG Tablet GT ×2 (14:25→22:04)
--- NOTE | 2018-01-29 14:25 | NURSING ---
Pt is currently intubated in ICU. pt awake and alert. at bedside. CAMILA Alcantar stated she changed the sacral dressing when he returned from surgery. recommended the dressing be changed again later this evening as well. will wait to apply the wound VAC on Thursday since there will most likely be some residual stool. may still be difficult to get a good seal d/t mucous. stoma is nice and pink. there is a small amount of stool already noted in the ostomy bag as well as some bloody drainage. will monitor.
[2018-01-29] MEDS: Ferrous Sulfate 300 MG/5 ML UDC GT (14:29)
[2018-01-29] MEDS: SMZ/TPM Suspension 20 ML GT ×2 (14:29→22:04)
[2018-01-29] MEDS: AMANTADINE HCL 50 MG/5ML 100 MG GT (14:31)
[2018-01-29 15:51] LABS: Bedside Glucose 250 mg/dL (70-110)
--- NOTE | 2018-01-29 15:56 | PCM.PN.HOSP ---
Subjective: Seen after surgery, he is currently intubated, sedation is off and he is alert Objective: General: Intubated in ICU, Alert HEENT: Atraumatic, EOMI, Normocephalic Oral: Moist Mucosa Neck: Supple, No JVD Lungs: Clear to auscultation, Normal air movement, No rhonchi, No wheeze, No rales Cardiovascular: Regular rate, Regular Rhythm, Normal S1, Normal S2, No murmurs Abdomen: Soft,stoma appears healthy Extremities: No edema Skin: Ulcer/ Wound - on buttock stage 4 decub Vitals/I&O's: Vital Signs Temp Pulse Resp BP Pulse Ox 98.9 F 86 20 H 120/68 96 01/29/18 13:00 01/29/18 15:45 01/29/18 14:20 01/29/18 14:25 01/29/18 14:20 Oxygen Flow Rate (L/min) 2 Oxygen Delivery Method Nasal Cannula Weight: 233 lb 14.567 oz Body Mass Index (BMI) 30.0 Finger Stick Blood Glucose 250 Intake and Output for Last 24 Hours 01/27/18 01/28/18 01/29/18 23:59 23:59 23:59 Intake Total 1206.4 / 1206.4 3141 / 3141 471 / 471 Output Total 3575 / 3575 1600 / 1600 325 / 325 Balance -2368.6 / -2368.6 1541 / 1541 146 / 146 Microbiology Past 72 Hours 01/22/18 Unknown Bone - Site Gram Stain - Final 01/22/18 Unknown Bone - Site Wound Culture - Final No growth aerobically. 01/22/18 Unknown Bone - Site Anaerobic Culture - Final No growth in 5 days. 01/22/18 Unknown Tissue - Sacral Gram Stain - Final 01/22/18 Unknown Tissue - Sacral Wound Culture - Final Serratia marcescens Vancomycin Resist. E. faecium 01/22/18 Unknown Tissue - Sacral Anaerobic Culture - Final No anaerobic bacteria isolated. Laboratory Results 01/28/18 16:53: POC Glucose 121 H 01/28/18 21:22: POC Glucose 150 H 01/29/18 05:30: WBC 7.7, RBC 3.39 L, Hgb 10.2 L, Hct 32.8 L, MCV 96.8 H, MCH 30.1, MCHC 31.1 L, RDW 15.3 H, RDW Differential 53.6 H, Plt Count 386, MPV 10.0, Immature Gran % (Auto) 0.100, Neut % (Auto) 61.5, Lymph % (Auto) 22.4, Wolfe % (Auto) 13.2 H, Eos % (Auto) 2.2, Baso % (Auto) 0.6, Absolute Neuts (auto) 4.7, Absolute Lymphs (auto) 1.73, Total Counted Not Reportable 01/29/18 05:30: Sodium 142, Potassium 3.8, Chloride 104, Carbon Dioxide 27.0, Anion Gap 11, BUN 18, Creatinine 0.61 L, Estim Creat Clear Calc 83.34, Est GFR (MDRD) Af Amer 169, Est GFR (MDRD) Non-Af 140, BUN/Creatinine Ratio 29.5 H, Glucose 159 H, Calcium 9.5 01/29/18 05:30: Total Creatine Kinase 49, Triglycerides 160 01/29/18 06:55: POC Glucose 178 H 01/29/18 13:44: POC Glucose 250 H 01/29/18 14:09: Specimen Type ART, Sample Site L Radial, pH 7.43, Bicarbonate Actual 26.0, POC Total CO2 27, Base Excess 2, O2 Saturation 98, O2 % 50, ABG pCO2 38.9, ABG pO2 102 H, O2 Delivery Device Vent, Vent Mode CPAP PS, POC PEEP 5, POC Pressure Suppt 5, Blood Gas Notified Time 1408 Current Medications Acetaminophen (Tylenol Liquid) 650 mg GT Q6H PRN PRN PRN Reason: pain/fever Albuterol/Ipratropium (Duoneb) 3 ml INHALATION Q2H PRN PRN PRN Reason: SHORTNESS OF BREATH Amantadine HCl () 100 mg GT DAILY [facility] Last Admin: 01/29/18 14:31 Dose: 100 mg Ascorbic Acid (Vitamin C) 1,000 mg GT DAILY@0800 [facility] Last Admin: 01/29/18 08:17 Dose: Not Given Budesonide (Pulmicort Aerosol) 0.5 mg INHALATION BID.RT BULL Last Admin: 01/29/18 07:20 Dose: Not Given Diazepam (Valium) 2 mg GT 4X/DAY PRN PRN PRN Reason: SPASMS Last Admin: 01/27/18 16:54 Dose: 2 mg Ferrous Sulfate (Ferrous Sulfate Syrup) 300 mg GT DAILY [facility] Last Admin: 01/29/18 14:29 Dose: 300 mg Heparin Sodium (Beef Lung) (Heparin 500 Unit/5 Ml (100/Ml)) 500 unit IV UD PRN PRN Reason: HEPARIN FLUSH Piperacillin Sod/Tazobactam Sod (Zosyn) 3.375 gm in 50 mls @ 12.5 mls/hr IV Q8 [facility] Last Admin: 01/29/18 14:30 Dose: 12.5 mls/hr Sodium Chloride () 1,000 mls @ 100 mls/hr IV .Q10H [facility] Last Admin: 01/29/18 13:28 Dose: 100 mls/hr Fentanyl () 100 mls @ 5 mls/hr IV .Q20H [facility] Last Admin: 01/29/18 13:29 Dose: 5 mls/hr Propofol (Diprivan) 1,000 mg in 100 mls @ 3.183 mls/hr CONT INF .Q12H [facility]; 5 MCG/KG/MIN PRN Reason: Protocol Last Admin: 01/29/18 13:29 Dose: 3.183 mls/hr Insulin Human Lispro (Humalog Kwikpen (Bkc)) 0 unit SC ACHS [facility] PRN Reason: Protocol Last Admin: 01/29/18 14:20 Dose: 4 units Lactobacillus Acidophilus (Acidophilus) 1 tablet GT BID [facility] Last Admin: 01/29/18 14:25 Dose: 1 tablet Lansoprazole (Prevacid) 30 mg PO DAILY [facility] Last Admin: 01/29/18 14:30 Dose: 30 mg Linezolid (Zyvox) 600 mg GT BID [facility] Last Admin: 01/29/18 14:25 Dose: 600 mg Magnesium Oxide (Mag-Ox 400) 400 mg GT TIDCM [facility] Last Admin: 01/29/18 14:24 Dose: 400 mg Metoprolol Tartrate (Lopressor (Beta Devante)) 150 mg GT TID [facility] Last Admin: 01/29/18 14:25 Dose: 150 mg Nitroglycerin (Nitrostat) 0.4 mg SUBLINGUAL Q5M PRN PRN Reason: Chest Pain Nutritional Formula ([place] - [place] Flavor) 1 packet GT BIDCM [facility] Last Admin: 01/29/18 08:14 Dose: Not Given Ondansetron HCl (Zofran) 4 mg IV Q6H PRN PRN PRN Reason: NAUSEA Polyethylene Glycol (Miralax) 17 gm GT DAILY [facility] Last Admin: 01/29/18 14:24 Dose: 17 gm Pramipexole Dihydrochloride (Mirapex) 0.25 mg GT QHS [facility] Last Admin: 01/28/18 21:01 Dose: 0.25 mg Pravastatin Sodium (Pravachol) 80 mg GT QHS [facility] Last Admin: 01/28/18 21:02 Dose: 80 mg Sodium Chloride () 5 - 30 ml IV UD PRN PRN Reason: SALINE FLUSH Sodium Chloride () 10 - 20 ml IV UD PRN PRN Reason: PICC FLUSH Sodium Hypochlorite (Dakins Solution 0.25% (1/2 Strength)) 1 applic TOPICAL BID BULL PRN Reason: Protocol Last Admin: 01/29/18 14:12 Dose: Not Given Trimethoprim/Sulfamethoxazole (Bactrim Suspension 800-160mg/20ml) 20 ml GT BID [facility] Last Admin: 01/29/18 14:29 Dose: 20 ml Medical Necessity - Tobacco Use Smoking Status: Former smoker Assessment/Plan All Active Problems (Last Updated 01/15/18 @ 18:40 by Darnell Felix DO) Malnutrition of moderate degree (Acute) Alcohol intoxication (Resolved) Acute respiratory failure (Acute) Aspiration pneumonia (Acute) Acute and chronic respiratory failure with hypoxia (Acute) Sepsis (Resolved) Healthcare associated bacteremia due to Staphylococcus aureus (Resolved) Infected decubitus ulcer (Acute) Infected decubitus ulcer (Acute) FUO (fever of unknown origin) (Acute) Demand ischemia (Resolved) Systolic CHF, acute (Acute) Acute respiratory failure with hypoxia and hypercarbia (Resolved) Multifocal community-acquired pneumonia (Resolved) Severe sepsis (Resolved) 1. 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 TBI/Dysphagia - Happened in October and has not been home since with extensive hospitalization both here and in [place] - right sided hemiplegia from the intracranial hemorrhage - c/w speech therapy as well as PT/OT - Speech states that he should be NPO so TF started at 40cc/hr - Any medications that can be crushed or converted to liquid will be. 3. CAD/HTN/HLD/ischemic cardiomyopathy - stable - c/w metoprolol and can resume ASA next week 4. IDDM2 - Blood sugars are elevated above 200 - Lantus 30 U BID and humalog 15 U TID, no that he is on TF, will do SSI and make the adjustments that way - May still need meal time insulin 5. COPD - Stable - c/w duonebs and pulmicort and resp therapy 6. GERD - stable - c/w protonix 7. Insomnia - c/w zolpidem 8. restless legs syndrome - stable - c/w pramipexole 9. Depression - Was on a TCA which was discontinued because of the zyvox, will hold off on SSRI or SNRI until abx are completed - He will need outpatient mental health after discharge DVT: SCDs Diet: TF when ostomy functional Code: FULL Dispo: TCU Code Visit Inpatient E&M: [id number] Subs Hosp L2
[2018-01-29 18:25] LABS: M R Staph aureus DNA By PCR Negative (Negative); Probe Check PASS; Specimen Processing Control PASS
[2018-01-29 19:01] LABS: Bedside Glucose 193 mg/dL (70-110)
[2018-01-29] MEDS: Budesonide Respules 0.5 MG/2 ML AMPUL.NEB. INHALATION (19:07)
[2018-01-29] MEDS: Pramipexole Di-HCl 0.25 MG Tablet GT (22:03)
[2018-01-29] MEDS: Pravastatin 80 MG Tablet GT (22:03)
[2018-01-29 22:50] LABS: Bedside Glucose 118 mg/dL (70-110)
[2018-01-30] VITALS (18 sets, daily range): BP systolic 111–154; BP diastolic 45–78; PULSE 80–114; RESP 13–20; TEMP 36.6–37.2; O2SAT 95–100
[2018-01-30] MEDS: 0.9% Normal Saline 1,000 ML 100 ML IV ×3 (04:00→21:55)
[2018-01-30 04:28] LABS: Absolute Lymphocyte Count 1.61 X10^3/ul (0.83-4.51); Absolute Neutrophil Count 5.7 X10^3/uL (2.0-7.7); Basophil# 0.04 X10^3/uL; Basophil% 0.5 % (0-1); Eosinophil# 0.14 X10^3/uL; Eosinophils% 1.7 % (0-5); Hematocrit 30.3 % (40-54); Hemoglobin 9.3 g/dl (13.0-16.5); Lymphocyte # 1.61 X10^3/ul (4.0); Mean Corp Hgb Conc 30.7 g/gl (32-36); Mean Corpuscular Volume 97.7 fL (80-94); Mean Platelet Vol. 9.9 fl (6.2-12.0); Monocyte# 0.98 X10^3/uL; Monocyte% 11.6 % (0-10); Neutrophil # 5.69 X10^3/uL (2.7-7.7); Neutrophil % 67.1 % (47-70); Platelet Count 367 K/mm3 (150-450); RBC Distribution Width CV 15.4 % (11.6-14.6); RBC Distribution Width SD 55.2 fl (35.1-43.9); White Blood Count 8.5 K/mm3 (4.4-11.0)
[2018-01-30 04:29] LABS: Anion Gap 11 (5-15); BUN 11 mg/dL (7-18); BUN/Creat Ratio 18.9 RATIO (10-20); Calcium,Total 8.9 mg/dL (8.5-10.1); Chloride 105 mmol/L (98-107); Creatinine, Serum 0.58 mg/dL (0.70-1.30); EST Glomerular Filtration Rate 147 mL/min (>60); Est Glom Filt Rate - Afr Amer 178 mL/min (>60); Estimated Creatinine Clearance 83.34 ml/min; Glucose 153 mg/dL (74-106); POSITIVE COUNT NO; POSITIVE DIFFERENTIAL NO; POSITIVE MORPHOLOGY NO; Potassium 3.5 mmol/L (3.5-5.1); Sodium Level 143 mmol/L (136-145)
[2018-01-30] MEDS: CHLORHEXIDINE GLUC 2% CLOTH 1 EACH TOWELETTE TOPICAL (05:47)
[2018-01-30] MEDS: Piperacil/Tazobactam 3.375 GM/50 ML ML IV ×3 (05:47→21:55)
[2018-01-30] MEDS: Metoprolol Tartrate 50 MG Tablet 150 MG GT ×3 (06:01→21:54)
[2018-01-30 06:16] LABS: Bedside Glucose 148 mg/dL (70-110)
--- NOTE | 2018-01-30 06:51 | PCM.PN.INT ---
Subjective: Patient successfully liberated from the ventilator yesterday evening. Patient did have some transient desaturation overnight, but was not on his home CPAP when this occurred. Patient has been on minimal nasal cannula oxygen. No fever has been reported. Patient is not reporting any significant pain or nausea associated with initiation of tube feeds. General: Alert, Oriented x3, Cooperative, No apparent distress, - - Speaking at baseline. Obese. HEENT: Atraumatic, PERRLA, EOMI, Normocephalic, - - No scleral icterus or injection noted. Oral: Moist Mucosa, No Gingival or Mucosal Lesions/ Ulcerations Neck: Supple, No JVD, No Nodes, Trachea Midline Lungs: No rhonchi, No wheeze, No rales, Diminished, - - Fair effort. Cardiovascular: Normal S1, Normal S2, No murmurs, No rub noted, No Gallop, Tachycardic Abdomen: Bowel Sounds Present, Soft, Non Tender, Non-Distended, Obese, - - PEG and ostomy appeared clean, dry and intact. Extremities: No cyanosis, Capillary Refill Less than 3 Seconds, Edema Skin: - - Grossly unchanged compared to previous. Ostomy is pink. Musculoskeletal: No Tenderness to Palpation of Joints or Extremities Lymphatic: No Cervical, Supraclavicular, or Inguinal Adenopathy Neurological: Cranial nerves II-XII grossly intact, Neuro grossly intact, Motor Exam 5/5 strength throughout Psych/Mental Status: Normal Affect, Appropriate Vital Signs Temp Pulse Resp BP Pulse Ox 36.6 C 110 H 20 H 154/58 H 100 01/30/18 06:00 01/30/18 06:01 01/30/18 06:00 01/30/18 06:01 01/30/18 06:00 Oxygen Flow Rate (L/min) 2 Oxygen Delivery Method Nasal Cannula Weight: 105.9 kg Body Mass Index (BMI) 30.0 Finger Stick Blood Glucose 250 Intake and Output for Last 24 Hours 01/28/18 01/29/18 01/30/18 23:59 23:59 23:59 Intake Total 3141 / 3141 916.5 / 916.5 2178 / 2178 Output Total 1600 / 1600 825 / 825 625 / 625 Balance 1541 / 1541 91.5 / 91.5 1553 / 1553 Labs (Last 48 Hours) 01/28/18 01/28/18 01/28/18 06:37 12:26 16:53 WBC RBC Hgb Hct MCV MCH MCHC RDW RDW Differential Plt Count MPV Immature Gran % (Auto) Neut % (Auto) Lymph % (Auto) [place] % (Auto) Eos % (Auto) Baso % (Auto) Absolute Neuts (auto) Absolute Lymphs (auto) Total Counted Specimen Type Sample Site pH Bicarbonate Actual POC Total CO2 Base Excess O2 Saturation O2 % ABG pCO2 ABG pO2 O2 Delivery Device Vent Mode POC PEEP POC Pressure Suppt Blood Gas Notified Time Sodium Potassium Chloride Carbon Dioxide Anion Gap BUN Creatinine Estim Creat Clear Calc Est GFR (MDRD) Af Amer Est GFR (MDRD) Non-Af BUN/Creatinine Ratio Glucose Calcium Total Creatine Kinase Triglycerides MRSA (PCR) POC Glucose 212 H 235 H 121 H 01/28/18 01/29/18 01/29/18 21:22 05:30 05:30 WBC 7.7 RBC 3.39 L Hgb 10.2 L Hct 32.8 L MCV 96.8 H MCH 30.1 MCHC 31.1 L RDW 15.3 H RDW Differential 53.6 H Plt Count 386 MPV 10.0 Immature Gran % (Auto) 0.100 Neut % (Auto) 61.5 Lymph % (Auto) 22.4 [place] % (Auto) 13.2 H Eos % (Auto) 2.2 Baso % (Auto) 0.6 Absolute Neuts (auto) 4.7 Absolute Lymphs (auto) 1.73 Total Counted Not Reportable Specimen Type Sample Site pH Bicarbonate Actual POC Total CO2 Base Excess O2 Saturation O2 % ABG pCO2 ABG pO2 O2 Delivery Device Vent Mode POC PEEP POC Pressure Suppt Blood Gas Notified Time Sodium 142 Potassium 3.8 Chloride 104 Carbon Dioxide 27.0 Anion Gap 11 BUN 18 Creatinine 0.61 L Estim Creat Clear Calc 83.34 Est GFR (MDRD) Af Amer 169 Est GFR (MDRD) Non-Af 140 BUN/Creatinine Ratio 29.5 H Glucose 159 H Calcium 9.5 Total Creatine Kinase Triglycerides MRSA (PCR) POC Glucose 150 H 01/29/18 01/29/18 01/29/18 05:30 06:55 13:44 WBC RBC Hgb Hct MCV MCH MCHC RDW RDW Differential Plt Count MPV Immature Gran % (Auto) Neut % (Auto) Lymph % (Auto) [place] % (Auto) Eos % (Auto) Baso % (Auto) Absolute Neuts (auto) Absolute Lymphs (auto) Total Counted Specimen Type Sample Site pH Bicarbonate Actual POC Total CO2 Base Excess O2 Saturation O2 % ABG pCO2 ABG pO2 O2 Delivery Device Vent Mode POC PEEP POC Pressure Suppt Blood Gas Notified Time Sodium Potassium Chloride Carbon Dioxide Anion Gap BUN Creatinine Estim Creat Clear Calc Est GFR (MDRD) Af Amer Est GFR (MDRD) Non-Af BUN/Creatinine Ratio Glucose Calcium Total Creatine Kinase 49 Triglycerides 160 MRSA (PCR) POC Glucose 178 H 250 H 01/29/18 01/29/18 01/29/18 14:09 16:45 18:03 WBC RBC Hgb Hct MCV MCH MCHC RDW RDW Differential Plt Count MPV Immature Gran % (Auto) Neut % (Auto) Lymph % (Auto) [place] % (Auto) Eos % (Auto) Baso % (Auto) Absolute Neuts (auto) Absolute Lymphs (auto) Total Counted Specimen Type ART Sample Site L Radial pH 7.43 Bicarbonate Actual 26.0 POC Total CO2 27 Base Excess 2 O2 Saturation 98 O2 % 50 ABG pCO2 38.9 ABG pO2 102 H O2 Delivery Device Vent Vent Mode CPAP PS POC PEEP 5 POC Pressure Suppt 5 Blood Gas Notified Time 1408 Sodium Potassium Chloride Carbon Dioxide Anion Gap BUN Creatinine Estim Creat Clear Calc Est GFR (MDRD) Af Amer Est GFR (MDRD) Non-Af BUN/Creatinine Ratio Glucose Calcium Total Creatine Kinase Triglycerides MRSA (PCR) Negative POC Glucose 193 H 01/29/18 01/30/18 01/30/18 22:20 04:00 04:00 WBC 8.5 RBC 3.10 L Hgb 9.3 L Hct 30.3 L MCV 97.7 H MCH 30.0 MCHC 30.7 L RDW 15.4 H RDW Differential 55.2 H Plt Count 367 MPV 9.9 Immature Gran % (Auto) 0.100 Neut % (Auto) 67.1 Lymph % (Auto) 19.0 [place] % (Auto) 11.6 H Eos % (Auto) 1.7 Baso % (Auto) 0.5 Absolute Neuts (auto) 5.7 Absolute Lymphs (auto) 1.61 Total Counted Not Reportable Specimen Type Sample Site pH Bicarbonate Actual POC Total CO2 Base Excess O2 Saturation O2 % ABG pCO2 ABG pO2 O2 Delivery Device Vent Mode POC PEEP POC Pressure Suppt Blood Gas Notified Time Sodium 143 Potassium 3.5 Chloride 105 Carbon Dioxide 27.0 Anion Gap 11 BUN 11 Creatinine 0.58 L Estim Creat Clear Calc 83.34 Est GFR (MDRD) Af Amer 178 Est GFR (MDRD) Non-Af 147 BUN/Creatinine Ratio 18.9 Glucose 153 H Calcium 8.9 Total Creatine Kinase Triglycerides MRSA (PCR) POC Glucose 118 H 01/30/18 06:05 WBC RBC Hgb Hct MCV MCH MCHC RDW RDW Differential Plt Count MPV Immature Gran % (Auto) Neut % (Auto) Lymph % (Auto) [place] % (Auto) Eos % (Auto) Baso % (Auto) Absolute Neuts (auto) Absolute Lymphs (auto) Total Counted Specimen Type Sample Site pH Bicarbonate Actual POC Total CO2 Base Excess O2 Saturation O2 % ABG pCO2 ABG pO2 O2 Delivery Device Vent Mode POC PEEP POC Pressure Suppt Blood Gas Notified Time Sodium Potassium Chloride Carbon Dioxide Anion Gap BUN Creatinine Estim Creat Clear Calc Est GFR (MDRD) Af Amer Est GFR (MDRD) Non-Af BUN/Creatinine Ratio Glucose Calcium Total Creatine Kinase Triglycerides MRSA (PCR) POC Glucose 148 H Clinical Impression(s) from Imaging Studies Chest X-Ray 01/29/18 12:15 IMPRESSION: ET tube and enteric tube as above. Recommend advancement of the enteric tube. Mild CHF. Electronically Signed: Yvon Myers DO at 16:34 EDT Tel , Service support , Medical Necessity - Tobacco Use Smoking Status: Former smoker Assessment/Plan All Active Problems (Last Updated 01/15/18 @ 18:40 by Darnell Felix DO) Malnutrition of moderate degree (Acute) Alcohol intoxication (Resolved) Acute respiratory failure (Acute) Aspiration pneumonia (Acute) Acute and chronic respiratory failure with hypoxia (Acute) Sepsis (Resolved) Healthcare associated bacteremia due to Staphylococcus aureus (Resolved) Infected decubitus ulcer (Acute) Infected decubitus ulcer (Acute) FUO (fever of unknown origin) (Acute) Demand ischemia (Resolved) Systolic CHF, acute (Acute) Acute respiratory failure with hypoxia and hypercarbia (Resolved) Multifocal community-acquired pneumonia (Resolved) Severe sepsis (Resolved) RECOMMENDATIONS: 1. Increase activity as tolerated 2. Okay to continue with tube feeds 3. Continue wound nurse and ID recommendations 4. Reinitiation of baseline CPAP with sleep 5. Okay to leave the intensive care unit from my perspective 6. Hemodynamically stable. Will sign off from a critical care perspective IMPRESSIONS: 1. Respiratory failure/COPD Patient extubated yesterday and did well overnight. Patient did have transient desaturation overnight, but this may be secondary to uncontrolled sleep apnea. Patient should be on his baseline JIM therapy with CPAP. Wean oxygen back to room air. Continue with Pulmicort and DuoNeb's for therapeutic substitution of home medications. Patient does not appear to be in acute exacerbation at this time. 2. Traumatic brain injury/dysphasia/PEG/history of GERD Patient's neurologic exam appears to be consistent with previous documentation. Patient is currently receiving PEG feeds and tolerating well. Patient can be continued on Protonix. 3. Coronary artery disease/hypertension/hyperlipidemia/ischemic cardiomyopathy/chronic systolic congestive heart failure Patient with an extensive cardiac history with non-ST elevation VT in the past. Patient has had some improvement with a last known ejection fraction of 45%. Patient is on medical therapy at this time. Monitor with telemetry for any malignant type rhythms postoperatively. No significant ectopy noted on telemetry at this time. 4. Diabetes mellitus type 2/insomnia/restless leg syndrome/depression Complicates care, management, recovery and prognosis. Patient does have basal insulin needs the majority of the time. Tube feeds are currently running and patient is tolerating well. Defer to hospitalist on reinitiation of basal insulin. Consider decreasing Lopressor to 200 mg twice daily Code Visit Inpatient E&M: 45899 Subs Hosp L3
[2018-01-30] MEDS: Budesonide Respules 0.5 MG/2 ML AMPUL.NEB. INHALATION ×2 (07:23→20:05)
--- NOTE | 2018-01-30 07:49 | PCM.PN.HOSP ---
Subjective: Extubated yesterday. No shortness of breath. No abdominal pain. Vitals/I&O's: Vital Signs Temp Pulse Resp BP Pulse Ox 36.6 C 110 H 20 H 154/58 H 100 01/30/18 06:00 01/30/18 06:01 01/30/18 06:00 01/30/18 06:01 01/30/18 06:00 Oxygen Flow Rate (L/min) 2 Oxygen Delivery Method Nasal Cannula Weight: 105.9 kg Body Mass Index (BMI) 30.0 Finger Stick Blood Glucose 250 Intake and Output for Last 24 Hours 01/28/18 01/29/18 01/30/18 23:59 23:59 23:59 Intake Total 3141 / 3141 916.5 / 916.5 2178 / 2178 Output Total 1600 / 1600 825 / 825 625 / 625 Balance 1541 / 1541 91.5 / 91.5 1553 / 1553 General: Alert, No apparent distress, - - no respiratory distress. no conversational dyspnea. HEENT: Atraumatic, Normocephalic Oral: Moist Mucosa, No Gingival or Mucosal Lesions/ Ulcerations Neck: No Nodes, Thyroid Normal Size and Texture Lungs: Clear to auscultation, No rhonchi, No wheeze, Diminished Cardiovascular: Regular rate, Regular Rhythm, Normal S1, Normal S2, No murmurs Abdomen: Bowel Sounds Present, Soft, Non Tender, Non-Distended, No Hepato-splenomegaly, - - colostomy in place with dark brown stool. Extremities: No edema, No Calf Tenderness Skin: No rashes, No breakdown Musculoskeletal: No Tenderness to Palpation of Joints or Extremities, No Muscle Wasting Neurological: - - able to flex fingers on right hand, cannot extend. no clonus. Psych/Mental Status: Normal Affect, Appropriate Microbiology Past 72 Hours 01/22/18 Unknown Bone - Site Gram Stain - Final 01/22/18 Unknown Bone - Site Wound Culture - Final No growth aerobically. 01/22/18 Unknown Bone - Site Anaerobic Culture - Final No growth in 5 days. 01/22/18 Unknown Tissue - Sacral Gram Stain - Final 01/22/18 Unknown Tissue - Sacral Wound Culture - Final Serratia marcescens Vancomycin Resist. E. faecium 01/22/18 Unknown Tissue - Sacral Anaerobic Culture - Final No anaerobic bacteria isolated. Laboratory Results 01/29/18 05:30: Total Creatine Kinase 49, Triglycerides 160 01/29/18 13:44: POC Glucose 250 H 01/29/18 14:09: Specimen Type ART, Sample Site L Radial, pH 7.43, Bicarbonate Actual 26.0, POC Total CO2 27, Base Excess 2, O2 Saturation 98, O2 % 50, ABG pCO2 38.9, ABG pO2 102 H, O2 Delivery Device Vent, Vent Mode CPAP PS, POC PEEP 5, POC Pressure Suppt 5, Blood Gas Notified Time 1408 01/29/18 16:45: MRSA (PCR) Negative 01/29/18 18:03: POC Glucose 193 H 01/29/18 22:20: POC Glucose 118 H 01/30/18 04:00: WBC 8.5, RBC 3.10 L, Hgb 9.3 L, Hct 30.3 L, MCV 97.7 H, MCH 30.0, MCHC 30.7 L, RDW 15.4 H, RDW Differential 55.2 H, Plt Count 367, MPV 9.9, Immature Gran % (Auto) 0.100, Neut % (Auto) 67.1, Lymph % (Auto) 19.0, [place] % (Auto) 11.6 H, Eos % (Auto) 1.7, Baso % (Auto) 0.5, Absolute Neuts (auto) 5.7, Absolute Lymphs (auto) 1.61, Total Counted Not Reportable 01/30/18 04:00: Sodium 143, Potassium 3.5, Chloride 105, Carbon Dioxide 27.0, Anion Gap 11, BUN 11, Creatinine 0.58 L, Estim Creat Clear Calc 83.34, Est GFR (MDRD) Af Amer 178, Est GFR (MDRD) Non-Af 147, BUN/Creatinine Ratio 18.9, Glucose 153 H, Calcium 8.9 01/30/18 06:05: POC Glucose 148 H Current Medications Acetaminophen (Tylenol Liquid) 650 mg GT Q6H PRN PRN PRN Reason: pain/fever Albuterol/Ipratropium (Duoneb) 3 ml INHALATION Q2H PRN PRN PRN Reason: SHORTNESS OF BREATH Amantadine HCl () 100 mg GT DAILY [facility] Last Admin: 01/29/18 14:31 Dose: 100 mg Ascorbic Acid (Vitamin C) 1,000 mg GT DAILY@0800 [facility] Last Admin: 01/29/18 08:17 Dose: Not Given Budesonide (Pulmicort Aerosol) 0.5 mg INHALATION BID.RT [facility] Last Admin: 01/30/18 07:23 Dose: 0.5 mg Chlorhexidine Gluconate () 1 each TOPICAL DAILY [facility] Last Admin: 01/30/18 05:47 Dose: 1 each Diazepam (Valium) 2 mg GT 4X/DAY PRN PRN PRN Reason: SPASMS Last Admin: 01/27/18 16:54 Dose: 2 mg Ferrous Sulfate (Ferrous Sulfate Syrup) 300 mg GT DAILY [facility] Last Admin: 01/29/18 14:29 Dose: 300 mg Heparin Sodium (Beef Lung) (Heparin 500 Unit/5 Ml (100/Ml)) 500 unit IV UD PRN PRN Reason: HEPARIN FLUSH Piperacillin Sod/Tazobactam Sod (Zosyn) 3.375 gm in 50 mls @ 12.5 mls/hr IV Q8 [facility] Last Admin: 01/30/18 05:47 Dose: 12.5 mls/hr Sodium Chloride () 1,000 mls @ 100 mls/hr IV .Q10H [facility] Last Admin: 01/30/18 04:00 Dose: 100 mls/hr Enteral Nutritional Formula (Glucerna 1.5) 1,000 mls @ 60 mls/hr GT .[id number] [facility] Last Admin: 01/29/18 22:03 Dose: 60 mls/hr Insulin Human Lispro (Humalog Kwikpen (Bkc)) 0 unit SC ACHS [facility] PRN Reason: Protocol Last Admin: 01/30/18 06:09 Dose: Not Given Lactobacillus Acidophilus (Acidophilus) 1 tablet GT BID [facility] Last Admin: 01/29/18 22:03 Dose: 1 tablet Lansoprazole (Prevacid) 30 mg PO DAILY [facility] Last Admin: 01/29/18 14:30 Dose: 30 mg Linezolid (Zyvox) 600 mg GT BID [facility] Last Admin: 01/29/18 22:04 Dose: 600 mg Magnesium Oxide (Mag-Ox 400) 400 mg GT TIDCM [facility] Last Admin: 01/29/18 17:57 Dose: Not Given Metoprolol Tartrate (Lopressor (Beta Devante)) 150 mg GT TID [facility] Last Admin: 01/30/18 06:01 Dose: 150 mg Nitroglycerin (Nitrostat) 0.4 mg SUBLINGUAL Q5M PRN PRN Reason: Chest Pain Nutritional Formula ([place] Flavor) [facility] Last Admin: 01/29/18 18:05 Dose: Not Given Ondansetron HCl (Zofran) 4 mg IV Q6H PRN PRN PRN Reason: NAUSEA Polyethylene Glycol (Miralax) 17 gm GT DAILY [facility] Last Admin: 01/29/18 14:24 Dose: 17 gm Pramipexole Dihydrochloride (Mirapex) 0.25 mg GT QHS [facility] Last Admin: 01/29/18 22:03 Dose: 0.25 mg Pravastatin Sodium (Pravachol) 80 mg GT QHS [facility] Last Admin: 01/29/18 22:03 Dose: 80 mg Sodium Chloride () 5 - 30 ml IV UD PRN PRN Reason: SALINE FLUSH Sodium Chloride () 10 - 20 ml IV UD PRN PRN Reason: PICC FLUSH Sodium Hypochlorite (Dakins Solution 0.25% (1/2 Strength)) 1 applic TOPICAL BID [facility] PRN Reason: Protocol Last Admin: 01/29/18 22:22 Dose: 1 applicatio Trimethoprim/Sulfamethoxazole (Bactrim Suspension 800-160mg/20ml) 20 ml GT BID [facility] Last Admin: 01/29/18 22:04 Dose: 20 ml Medical Necessity - Tobacco Use Smoking Status: Former smoker Assessment/Plan All Active Problems (Last Updated 01/15/18 @ 18:40 by Darnell Felix DO) Malnutrition of moderate degree (Acute) Alcohol intoxication (Resolved) Acute respiratory failure (Acute) Aspiration pneumonia (Acute) Acute and chronic respiratory failure with hypoxia (Acute) Sepsis (Resolved) Healthcare associated bacteremia due to Staphylococcus aureus (Resolved) Infected decubitus ulcer (Acute) Infected decubitus ulcer (Acute) FUO (fever of unknown origin) (Acute) Demand ischemia (Resolved) Systolic CHF, acute (Acute) Acute respiratory failure with hypoxia and hypercarbia (Resolved) Multifocal community-acquired pneumonia (Resolved) Severe sepsis (Resolved) 1. Infected decubitus ulcer, stage IV s/p Debridement on 01/22 +Serratia and VRE ID, PRS following. 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 Dysphagia Continue with modified diet with pur?ed and nectar thickened liquids, when cleared for diet per gen surg. Continue IVF until permitted to eat Speech therapy 3. Traumatic brain injury Patient had subsequent intracranial hemorrhage, subarachnoid hemorrhage, subdural hemorrhage and intraventricular hemorrhage Patient with right-sided hemiplegia Physical and occupational therapy 4. Coronary artery disease Continue with metoprolol. Resume ASA when ok with surgery. Asymptomatic at this time 5. DVT prophylaxis with SCDs. Would continue to hold off on chemical prophylaxis given patient's traumatic brain injury and extensive hemorrhage that he had. 6. History of respiratory failure pt transferred to ICU as a precaution after surgery yesterday. extubated and on room air with no events transfer out of ICU today. Code Visit Inpatient E&M: 98110 Subs Hosp L3
[2018-01-30] MEDS: Magnesium Oxide 400 MG Tablet GT ×3 (07:55→16:45)
[2018-01-30] MEDS: Ascorbic Acid 500 MG Tablet 1000 MG GT (07:56)
[2018-01-30] MEDS: Ferrous Sulfate 300 MG/5 ML UDC GT (09:24)
[2018-01-30] MEDS: SMZ/TPM Suspension 20 ML GT ×2 (09:24→21:56)
[2018-01-30] MEDS: Linezolid 600 MG Tablet GT ×2 (09:24→21:55)
[2018-01-30] MEDS: Polyethylene Glycol 3350 17 GM PACKET GT (09:25)
[2018-01-30] MEDS: AMANTADINE HCL 50 MG/5ML 100 MG GT (09:28)
[2018-01-30 12:10] LABS: Bedside Glucose 201 mg/dL (70-110)
--- NOTE | 2018-01-30 12:22 | PCM.PN.SRG ---
Subjective: Stomal output good. Pain is controlled. Objective: Significant amount of stool is located within the stoma bag at this time unable to really visualize the stoma but he has no abdominal pain whatsoever. - Physical Exam Vital Signs Temp Pulse Resp BP Pulse Ox 98.5 F 92 16 112/63 95 01/30/18 11:00 01/30/18 11:00 01/30/18 11:00 01/30/18 11:00 01/30/18 11:00 Oxygen Flow Rate (L/min) 2 Oxygen Delivery Method Room Air Weight: 233 lb 7.512 oz Body Mass Index (BMI) 30.0 Finger Stick Blood Glucose 250 Intake and Output for Last 24 Hours 01/28/18 01/29/18 01/30/18 23:59 23:59 23:59 Intake Total 3141 / 3141 916.5 / 916.5 2985 / 2985 Output Total 1600 / 1600 825 / 825 1175 / 1175 Balance 1541 / 1541 91.5 / 91.5 1810 / 1810 Laboratory Tests Past 24 Hrs 01/29/18 01/29/18 01/29/18 05:30 14:09 16:45 WBC RBC Hgb Hct MCV MCH MCHC RDW RDW Differential Plt Count MPV Immature Gran % (Auto) Neut % (Auto) Lymph % (Auto) [place] % (Auto) Eos % (Auto) Baso % (Auto) Absolute Neuts (auto) Absolute Lymphs (auto) Total Counted Specimen Type ART Sample Site L Radial pH 7.43 Bicarbonate Actual 26.0 POC Total CO2 27 Base Excess 2 O2 Saturation 98 O2 % 50 ABG pCO2 38.9 ABG pO2 102 H O2 Delivery Device Vent Vent Mode CPAP PS POC PEEP 5 POC Pressure Suppt 5 Blood Gas Notified Time 1408 Sodium Potassium Chloride Carbon Dioxide Anion Gap BUN Creatinine Estim Creat Clear Calc Est GFR (MDRD) Af Amer Est GFR (MDRD) Non-Af BUN/Creatinine Ratio Glucose Calcium Total Creatine Kinase 49 Triglycerides 160 MRSA (PCR) Negative 01/30/18 01/30/18 04:00 04:00 WBC 8.5 RBC 3.10 L Hgb 9.3 L Hct 30.3 L MCV 97.7 H MCH 30.0 MCHC 30.7 L RDW 15.4 H RDW Differential 55.2 H Plt Count 367 MPV 9.9 Immature Gran % (Auto) 0.100 Neut % (Auto) 67.1 Lymph % (Auto) 19.0 [place] % (Auto) 11.6 H Eos % (Auto) 1.7 Baso % (Auto) 0.5 Absolute Neuts (auto) 5.7 Absolute Lymphs (auto) 1.61 Total Counted Not Reportable Specimen Type Sample Site pH Bicarbonate Actual POC Total CO2 Base Excess O2 Saturation O2 % ABG pCO2 ABG pO2 O2 Delivery Device Vent Mode POC PEEP POC Pressure Suppt Blood Gas Notified Time Sodium 143 Potassium 3.5 Chloride 105 Carbon Dioxide 27.0 Anion Gap 11 BUN 11 Creatinine 0.58 L Estim Creat Clear Calc 83.34 Est GFR (MDRD) Af Amer 178 Est GFR (MDRD) Non-Af 147 BUN/Creatinine Ratio 18.9 Glucose 153 H Calcium 8.9 Total Creatine Kinase Triglycerides MRSA (PCR) POC Glucose 01/30/18 01/30/18 01/29/18 12:01 06:05 22:20 POC Glucose 201 H 148 H 118 H 01/29/18 01/29/18 18:03 13:44 POC Glucose 193 H 250 H Medical Necessity - Tobacco Use Smoking Status: Former smoker Assessment/Plan All Active Problems (Last Updated 01/15/18 @ 18:40 by Darnell Felix DO) Malnutrition of moderate degree (Acute) Alcohol intoxication (Resolved) Acute respiratory failure (Acute) Aspiration pneumonia (Acute) Acute and chronic respiratory failure with hypoxia (Acute) Sepsis (Resolved) Healthcare associated bacteremia due to Staphylococcus aureus (Resolved) Infected decubitus ulcer (Acute) Infected decubitus ulcer (Acute) FUO (fever of unknown origin) (Acute) Demand ischemia (Resolved) Systolic CHF, acute (Acute) Acute respiratory failure with hypoxia and hypercarbia (Resolved) Multifocal community-acquired pneumonia (Resolved) Severe sepsis (Resolved) Postop day 1 Stoma functioning appropriately.
[2018-01-30] MEDS: Acetaminophen 650 MG/20 ML UDC GT (12:25)
[2018-01-30] MEDS: Insulin Lispro 100 UNIT/ML INSULN.PEN SC ×3 (12:25→22:02)
[2018-01-30 17:00] LABS: Bedside Glucose 244 mg/dL (70-110)
[2018-01-30] MEDS: Pramipexole Di-HCl 0.25 MG Tablet GT (21:59)
[2018-01-30] MEDS: Pravastatin 80 MG Tablet GT (21:59)
[2018-01-30 23:01] LABS: Bedside Glucose 229 mg/dL (70-110)
[2018-01-31] VITALS (10 sets, daily range): BP systolic 133–162; BP diastolic 66–84; PULSE 76–111; RESP 16–18; TEMP 36.5–36.8; O2SAT 95–99
[2018-01-31] MEDS: Piperacil/Tazobactam 3.375 GM/50 ML ML IV ×3 (05:15→22:48)
[2018-01-31] MEDS: Metoprolol Tartrate 50 MG Tablet 150 MG GT ×3 (05:16→22:49)
[2018-01-31] MEDS: 0.9% NaCl Peripheral Flush Adult/Peds IV (06:21)
[2018-01-31 06:32] LABS: Absolute Lymphocyte Count 1.55 X10^3/ul (0.83-4.51); Absolute Neutrophil Count 5.1 X10^3/uL (2.0-7.7); Basophil# 0.03 X10^3/uL; Basophil% 0.4 % (0-1); Eosinophil# 0.19 X10^3/uL; Eosinophils% 2.5 % (0-5); Hematocrit 27.8 % (40-54); Hemoglobin 8.8 g/dl (13.0-16.5); Lymphocyte # 1.55 X10^3/ul (4.0); Lymphocyte % 20.4 % (19-41); Mean Corp Hgb Conc 31.7 g/gl (32-36); Mean Corpuscular Hgb 30.6 pg (27.0-32.0); Mean Corpuscular Volume 96.5 fL (80-94); Mean Platelet Vol. 9.4 fl (6.2-12.0); Monocyte# 0.73 X10^3/uL; Monocyte% 9.6 % (0-10); Neutrophil # 5.06 X10^3/uL (2.7-7.7); Neutrophil % 66.8 % (47-70); Platelet Count 311 K/mm3 (150-450); RBC Distribution Width CV 14.5 % (11.6-14.6); RBC Distribution Width SD 48.1 fl (35.1-43.9); Red Blood Count 2.88 M/mm3 (4.6-6.2); White Blood Count 7.6 K/mm3 (4.4-11.0)
[2018-01-31 06:34] LABS: POSITIVE COUNT NO; POSITIVE DIFFERENTIAL NO; POSITIVE MORPHOLOGY NO
[2018-01-31 06:43] LABS: Anion Gap 9 (5-15); BUN 8 mg/dL (7-18); BUN/Creat Ratio 15.7 RATIO (10-20); Calcium,Total 8.7 mg/dL (8.5-10.1); Chloride 104 mmol/L (98-107); Creatinine, Serum 0.51 mg/dL (0.70-1.30); EST Glomerular Filtration Rate 172 mL/min (>60); Est Glom Filt Rate - Afr Amer 208 mL/min (>60); Estimated Creatinine Clearance 83.34 ml/min; Glucose 174 mg/dL (74-106); Potassium 3.6 mmol/L (3.5-5.1); Sodium Level 139 mmol/L (136-145)
[2018-01-31 06:45] LABS: Bedside Glucose 184 mg/dL (70-110)
[2018-01-31] MEDS: Insulin Lispro 100 UNIT/ML INSULN.PEN SC ×4 (07:59→22:59)
[2018-01-31] MEDS: Magnesium Oxide 400 MG Tablet GT ×3 (08:00→16:43)
[2018-01-31] MEDS: Ascorbic Acid 500 MG Tablet 1000 MG GT (08:01)
[2018-01-31] MEDS: SMZ/TPM Suspension 20 ML GT ×2 (08:02→22:52)
[2018-01-31] MEDS: AMANTADINE HCL 50 MG/5ML 100 MG GT (08:02)
[2018-01-31] MEDS: Polyethylene Glycol 3350 17 GM PACKET GT (08:04)
[2018-01-31] MEDS: Ferrous Sulfate 300 MG/5 ML UDC GT (08:04)
[2018-01-31] MEDS: Linezolid 600 MG Tablet GT ×2 (08:05→22:54)
--- NOTE | 2018-01-31 10:07 | PCM.PN.HOSP ---
Subjective: Patient was coughing and that was nonproductive but did have some abdominal discomforts around his stoma. Objective: Patient's asked me to stay in the room could tell the patient something. What she told the patient was that his brother, Damien, in her last night earlier this morning. Patient was visibly upset and tearful with this. Vitals/I&O's: Vital Signs Temp Pulse Resp BP Pulse Ox 36.5 C L 76 18 162/84 H 95 01/31/18 07:54 01/31/18 07:54 01/31/18 07:54 01/31/18 07:54 01/31/18 07:54 Oxygen Flow Rate (L/min) 2 Oxygen Delivery Method Room Air Weight: 111.9 kg Body Mass Index (BMI) 30.0 Finger Stick Blood Glucose 250 Intake and Output for Last 24 Hours 01/29/18 01/30/18 01/31/18 23:59 23:59 23:59 Intake Total 916.5 / 916.5 5415 / 5415 692 / 692 Output Total 825 / 825 2775 / 2775 1000 / 1000 Balance 91.5 / 91.5 2640 / 2640 -308 / -308 General: Alert, No apparent distress HEENT: Atraumatic, Normocephalic Oral: Moist Mucosa, No Gingival or Mucosal Lesions/ Ulcerations Neck: No Nodes, Thyroid Normal Size and Texture Lungs: Clear to auscultation, Normal air movement, No rhonchi, No wheeze Cardiovascular: Regular rate, Regular Rhythm, Normal S1, Normal S2, No murmurs Abdomen: Bowel Sounds Present, Soft, Non Tender, Non-Distended, No Hepato-splenomegaly, - - Stoma in left lower quadrant. Dark brown stool in the colostomy bag. Extremities: No edema, No Calf Tenderness Skin: No rashes, No breakdown Psych/Mental Status: Normal Affect, Appropriate Laboratory Results 01/30/18 12:01: POC Glucose 201 H 01/30/18 16:36: POC Glucose 244 H 01/30/18 22:01: POC Glucose 229 H 01/31/18 06:20: WBC 7.6, RBC 2.88 L, Hgb 8.8 L, Hct 27.8 L, MCV 96.5 H, MCH 30.6, MCHC 31.7 L, RDW 14.5, RDW Differential 48.1 H, Plt Count 311, MPV 9.4, Immature Gran % (Auto) 0.300, Neut % (Auto) 66.8, Lymph % (Auto) 20.4, [place] % (Auto) 9.6, Eos % (Auto) 2.5, Baso % (Auto) 0.4, Absolute Neuts (auto) 5.1, Absolute Lymphs (auto) 1.55, Total Counted Not Reportable 01/31/18 06:20: Sodium 139, Potassium 3.6, Chloride 104, Carbon Dioxide 26.0, Anion Gap 9, BUN 8, Creatinine 0.51 L, Estim Creat Clear Calc 83.34, Est GFR (MDRD) Af Amer 208, Est GFR (MDRD) Non-Af 172, BUN/Creatinine Ratio 15.7, Glucose 174 H, Calcium 8.7 01/31/18 06:37: POC Glucose 184 H Current Medications Acetaminophen (Tylenol Liquid) 650 mg GT Q6H PRN PRN PRN Reason: pain/fever Last Admin: 01/30/18 12:25 Dose: 650 mg Albuterol/Ipratropium (Duoneb) 3 ml INHALATION Q2H PRN PRN PRN Reason: SHORTNESS OF BREATH Amantadine HCl () 100 mg GT DAILY [facility] Last Admin: 01/31/18 08:02 Dose: 100 mg Ascorbic Acid (Vitamin C) 1,000 mg GT DAILY@0800 [facility] Last Admin: 01/31/18 08:01 Dose: 1,000 mg Budesonide (Pulmicort Aerosol) 0.5 mg INHALATION BID.RT [facility] Last Admin: 01/31/18 08:10 Dose: Not Given Diazepam (Valium) 2 mg GT 4X/DAY PRN PRN PRN Reason: SPASMS Last Admin: 01/27/18 16:54 Dose: 2 mg Ferrous Sulfate (Ferrous Sulfate Syrup) 300 mg GT DAILY [facility] Last Admin: 01/31/18 08:04 Dose: 300 mg Heparin Sodium (Beef Lung) (Heparin 500 Unit/5 Ml (100/Ml)) 500 unit IV UD PRN PRN Reason: HEPARIN FLUSH Piperacillin Sod/Tazobactam Sod (Zosyn) 3.375 gm in 50 mls @ 12.5 mls/hr IV Q8 [facility] Last Admin: 01/31/18 05:15 Dose: 12.5 mls/hr Sodium Chloride () 1,000 mls @ 100 mls/hr IV .Q10H [facility] Last Admin: 01/30/18 21:55 Dose: 100 mls/hr Insulin Human Lispro (Humalog Kwikpen (Bkc)) 0 unit SC ACHS [facility] PRN Reason: Protocol Last Admin: 01/31/18 07:59 Dose: 2 units Lactobacillus Acidophilus (Acidophilus) 1 tablet GT BID [facility] Last Admin: 01/31/18 08:01 Dose: 1 tablet Lansoprazole (Prevacid) 30 mg PO DAILY [facility] Last Admin: 01/31/18 08:05 Dose: 30 mg Linezolid (Zyvox) 600 mg GT BID [facility] Last Admin: 01/31/18 08:05 Dose: 600 mg Magnesium Oxide (Mag-Ox 400) 400 mg GT TIDCM [facility] Last Admin: 01/31/18 08:00 Dose: 400 mg Metoprolol Tartrate (Lopressor (Beta Devante)) 150 mg GT TID [facility] Last Admin: 01/31/18 05:16 Dose: 150 mg Nitroglycerin (Nitrostat) 0.4 mg SUBLINGUAL Q5M PRN PRN Reason: Chest Pain Nutritional Formula ([place] Flavor) 1 packet GT BIDCM [facility] Last Admin: 01/31/18 08:00 Dose: 1 packet Ondansetron HCl (Zofran) 4 mg IV Q6H PRN PRN PRN Reason: NAUSEA Polyethylene Glycol (Miralax) 17 gm GT DAILY [facility] Last Admin: 01/31/18 08:04 Dose: 17 gm Pramipexole Dihydrochloride (Mirapex) 0.25 mg GT QHS [facility] Last Admin: 01/30/18 21:59 Dose: 0.25 mg Pravastatin Sodium (Pravachol) 80 mg GT QHS [facility] Last Admin: 01/30/18 21:59 Dose: 80 mg Sodium Chloride () 5 - 30 ml IV UD PRN PRN Reason: SALINE FLUSH Last Admin: 01/31/18 06:21 Dose: 30 ml Sodium Chloride () 10 - 20 ml IV UD PRN PRN Reason: PICC FLUSH Sodium Hypochlorite (Dakins Solution 0.25% (1/2 Strength)) 1 applic TOPICAL BID [facility] PRN Reason: Protocol Last Admin: 01/30/18 21:56 Dose: 1 applicatio Trimethoprim/Sulfamethoxazole (Bactrim Suspension 800-160mg/20ml) 20 ml GT BID [facility] Last Admin: 01/31/18 08:02 Dose: 20 ml Medical Necessity - Tobacco Use Smoking Status: Former smoker Assessment/Plan All Active Problems (Last Updated 01/15/18 @ 18:40 by Darnell Felix DO) Malnutrition of moderate degree (Acute) Alcohol intoxication (Resolved) Acute respiratory failure (Acute) Aspiration pneumonia (Acute) Acute and chronic respiratory failure with hypoxia (Acute) Sepsis (Resolved) Healthcare associated bacteremia due to Staphylococcus aureus (Resolved) Infected decubitus ulcer (Acute) Infected decubitus ulcer (Acute) FUO (fever of unknown origin) (Acute) Demand ischemia (Resolved) Systolic CHF, acute (Acute) Acute respiratory failure with hypoxia and hypercarbia (Resolved) Multifocal community-acquired pneumonia (Resolved) Severe sepsis (Resolved) 1. Infected decubitus ulcer, stage IV s/p Debridement on 01/22 +Serratia and VRE ID, PRS following. 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 Dysphagia Diet upgraded to regular texture on Patient ate 100% of his meals yesterday and his tube feeds have been held. I do not know off hand when his PEG tube was put in but we will need to remain in at least 2 months after it was placed to prevent peritonitis. Patient will need to follow-up with his general surgeon at a later point to see if that will need to stand or be removed. The patient still eating regularly. 3. Traumatic brain injury Patient had subsequent intracranial hemorrhage, subarachnoid hemorrhage, subdural hemorrhage and intraventricular hemorrhage Patient with right-sided hemiplegia Physical and occupational therapy 4. Coronary artery disease Continue with metoprolol. Resume ASA when ok with surgery. Asymptomatic at this time 5. DVT prophylaxis with SCDs. Would continue to hold off on chemical prophylaxis given patient's traumatic brain injury and extensive hemorrhage that he had. 6. History of respiratory failure pt transferred to ICU as a precaution after surgery yesterday. extubated and on room air with no events transfer out of ICU today. 7. Grief Patient just informed today that his way apparently unexpectedly Patient informed that if he is having difficulty coping that he could certainly requests us to prescribe him something but will hold off at this point time Code Visit Inpatient E&M: 95297 Subs Hosp L2
--- NOTE | 2018-01-31 10:50 | PN.SURG_ITS ---
Subjective: Patient much more awake today. Tolerating p.o. and tube feeds have been stopped. Ostomy functioning well. Objective: Abdomen is soft ostomy is palpable significant amount of liquid stool in the bag. - Physical Exam Vital Signs Temp Pulse Resp BP Pulse Ox 97.7 F L 76 18 162/84 H 95 01/31/18 07:54 01/31/18 07:54 01/31/18 07:54 01/31/18 07:54 01/31/18 07:54 Oxygen Flow Rate (L/min) 2 Oxygen Delivery Method Room Air Weight: 246 lb 11.156 oz Body Mass Index (BMI) 30.0 Finger Stick Blood Glucose 250 Intake and Output for Last 24 Hours 01/29/18 01/30/18 01/31/18 23:59 23:59 23:59 Intake Total 916.5 / 916.5 5415 / 5415 692 / 692 Output Total 825 / 825 2775 / 2775 1000 / 1000 Balance 91.5 / 91.5 2640 / 2640 -308 / -308 Laboratory Tests Past 24 Hrs 01/31/18 01/31/18 06:20 06:20 WBC 7.6 RBC 2.88 L Hgb 8.8 L Hct 27.8 L MCV 96.5 H MCH 30.6 MCHC 31.7 L RDW 14.5 RDW Differential 48.1 H Plt Count 311 MPV 9.4 Immature Gran % (Auto) 0.300 Neut % (Auto) 66.8 Lymph % (Auto) 20.4 [place] % (Auto) 9.6 Eos % (Auto) 2.5 Baso % (Auto) 0.4 Absolute Neuts (auto) 5.1 Absolute Lymphs (auto) 1.55 Total Counted Not Reportable Sodium 139 Potassium 3.6 Chloride 104 Carbon Dioxide 26.0 Anion Gap 9 BUN 8 Creatinine 0.51 L Estim Creat Clear Calc 83.34 Est GFR (MDRD) Af Amer 208 Est GFR (MDRD) Non-Af 172 BUN/Creatinine Ratio 15.7 Glucose 174 H Calcium 8.7 POC Glucose 01/31/18 01/30/18 01/30/18 06:37 22:01 16:36 POC Glucose 184 H 229 H 244 H 01/30/18 12:01 POC Glucose 201 H Medical Necessity - Tobacco Use Smoking Status: Former smoker Assessment/Plan All Active Problems (Last Updated 01/15/18 @ 18:40 by Darnell Felix DO) Malnutrition of moderate degree (Acute) Alcohol intoxication (Resolved) Acute respiratory failure (Acute) Aspiration pneumonia (Acute) Acute and chronic respiratory failure with hypoxia (Acute) Sepsis (Resolved) Healthcare associated bacteremia due to Staphylococcus aureus (Resolved) Infected decubitus ulcer (Acute) Infected decubitus ulcer (Acute) FUO (fever of unknown origin) (Acute) Demand ischemia (Resolved) Systolic CHF, acute (Acute) Acute respiratory failure with hypoxia and hypercarbia (Resolved) Multifocal community-acquired pneumonia (Resolved) Severe sepsis (Resolved) Continuing to improve stoma functioning appropriately.
[2018-01-31] MEDS: Budesonide Respules 0.5 MG/2 ML AMPUL.NEB. INHALATION ×2 (11:41→19:22)
[2018-01-31 11:46] LABS: Bedside Glucose 288 mg/dL (70-110)
[2018-01-31] MEDS: 0.9% Normal Saline 1,000 ML 100 ML IV (16:43)
[2018-01-31 16:51] LABS: Bedside Glucose 228 mg/dL (70-110)
[2018-01-31] MEDS: Pramipexole Di-HCl 0.25 MG Tablet GT (22:51)
[2018-01-31] MEDS: Pravastatin 80 MG Tablet GT (22:52)
[2018-01-31 23:40] LABS: Bedside Glucose 206 mg/dL (70-110)
[2018-02-01] VITALS (29 sets, daily range): BP systolic 98–198; BP diastolic 57–114; PULSE 64–128; RESP 12–40; TEMP 36.3–36.8; O2SAT 93–100
--- NOTE | 2018-02-01 01:47 | NURSING ---
Addendum entered by Maureen Glover 02/01/18 02:41: Pt had been turned per [facility] at 0115 and was not in distress. Original Note: 0141 pt rang d/t feeling sob, audibly moist resps., stopped IVF. 0143 CPS paged, VS obtained O2 sat 84 on RA placed on NRB @15L [address] Evans, RT at bedside 0145 decided to call METALS ANALYST, bgt 260, 208/109, p-128, r-32, 93% NRB, t-98.0 0150 placed on Bipap, 25/03 50% 0153 Lasix 40mg IVP given per Loyda RN [address] Evans, called lab for stat labs [address] Evans admit to PCU stepdown
[2018-02-01] MEDS: Furosemide 40 MG/4 ML Vial IV (01:53)
[2018-02-01 01:55] LABS: Bedside Glucose 260 mg/dL (70-110)
[2018-02-01] MEDS: 0.9% NaCl Peripheral Flush Adult/Peds IV (02:07)
--- NOTE | 2018-02-01 02:09 | PCM.RRT.NO ---
Rapid Response Note Rapid response note Patient has been getting progressively worse dyspnea for last few hours that culminated into respiratory failure and rapid response was called. When I saw the patient, he was very short of breath, tachypneic, labored breathing and hypoxic Vitals heart rate 115/min, blood pressure 136/96, respiratory rate 44/min. On exam Air entry severely diminished bilaterally. Diffuse coarse crepitations present. Heart S1-S2, regular. Tachycardia Patient had recent laparoscopic diverting and sigmoid colostomy on 01/29/2018. Patient immediately put on BiPAP to keep pulse ox more than 92%. Currently on BiPAP 18/10 mmHg. Patient on IV fluid normal saline 100 mL/h. 1. Acute hypoxic respiratory failure secondary to pulmonary congestion/pulmonary edema DC IV fluid. Lasix 40 mg IV stat. Stat labs ordered including CBC, BMP, magnesium, troponin, chest x-ray and EKG. Continue BiPAP and DuoNeb. Monitor intake and output. Patient transferred to stepdown unit for continued monitoring. Portable chest x-ray reviewed. Increased interstitial markings/edema in both lower lobes. Official report pending - Physical Exam General: Oriented x3, Cooperative, Lethargic HEENT: Atraumatic, PERRLA, EOMI, Normocephalic Oral: Dry Mucosa Neck: Supple, Negative Carotid Bruits, JVD, Bilateral Lungs: Diminished, Rales, Short of Breath, Tachypneic, Using Accessory Muscles Cardiovascular: Normal S1, Normal S2, No murmurs, Tachycardic Abdomen: Bowel Sounds Present, Soft, Non Tender Extremities: Edema Skin: No rashes, Ulcer/ Wound Vital Signs Temp Pulse Resp BP Pulse Ox 98.3 F 95 16 162/83 H 98 01/31/18 19:51 01/31/18 22:49 01/31/18 19:51 01/31/18 22:49 01/31/18 19:51 Oxygen Flow Rate (L/min) 2 Oxygen Delivery Method Room Air Weight: 246 lb 11.156 oz Body Mass Index (BMI) 30.0 Finger Stick Blood Glucose 250 Intake and Output for Last 24 Hours 01/30/18 01/31/18 02/01/18 23:59 23:59 23:59 Intake Total 5415 / 5415 2237 / 2237 1029 / 1029 Output Total 2775 / 2775 3650 / 3650 1100 / 1100 Balance 2640 / 2640 -1413 / -1413 -71 / -71 Laboratory Tests Past 24 Hrs 01/31/18 01/31/18 06:20 06:20 WBC 7.6 RBC 2.88 L Hgb 8.8 L Hct 27.8 L MCV 96.5 H MCH 30.6 MCHC 31.7 L RDW 14.5 RDW Differential 48.1 H Plt Count 311 MPV 9.4 Immature Gran % (Auto) 0.300 Neut % (Auto) 66.8 Lymph % (Auto) 20.4 [place] % (Auto) 9.6 Eos % (Auto) 2.5 Baso % (Auto) 0.4 Absolute Neuts (auto) 5.1 Absolute Lymphs (auto) 1.55 Total Counted Not Reportable Sodium 139 Potassium 3.6 Chloride 104 Carbon Dioxide 26.0 Anion Gap 9 BUN 8 Creatinine 0.51 L Estim Creat Clear Calc 83.34 Est GFR (MDRD) Af Amer 208 Est GFR (MDRD) Non-Af 172 BUN/Creatinine Ratio 15.7 Glucose 174 H Calcium 8.7 POC Glucose 02/01/18 01/31/18 01/31/18 01:44 22:59 16:39 POC Glucose 260 H 206 H 228 H 01/31/18 01/31/18 11:01 06:37 POC Glucose 288 H 184 H Assessment/Plan All Active Problems (Last Updated 01/15/18 @ 18:40 by Darnell Felix DO) Malnutrition of moderate degree (Acute) Alcohol intoxication (Resolved) Acute respiratory failure (Acute) Aspiration pneumonia (Acute) Acute and chronic respiratory failure with hypoxia (Acute) Sepsis (Resolved) Healthcare associated bacteremia due to Staphylococcus aureus (Resolved) Infected decubitus ulcer (Acute) Infected decubitus ulcer (Acute) FUO (fever of unknown origin) (Acute) Demand ischemia (Resolved) Systolic CHF, acute (Acute) Acute respiratory failure with hypoxia and hypercarbia (Resolved) Multifocal community-acquired pneumonia (Resolved) Severe sepsis (Resolved)
--- NOTE | 2018-02-01 02:15 | NURSING ---
CXR completed. Report called to Renae JENSEN on PCU. Pt transferred to PCU 111 per Charge Nurse Jose Alberto Scales, and Junior RT.
[2018-02-01 02:26] LABS: Absolute Lymphocyte Count 2.41 X10^3/ul (0.83-4.51); Absolute Neutrophil Count 5.4 X10^3/uL (2.0-7.7); Basophil# 0.05 X10^3/uL; Basophil% 0.6 % (0-1); Eosinophils% 2.2 % (0-5); Hematocrit 34.1 % (40-54); Hemoglobin 10.6 g/dl (13.0-16.5); Lymphocyte # 2.41 X10^3/ul (4.0); Lymphocyte % 26.8 % (19-41); Mean Corp Hgb Conc 31.1 g/gl (32-36); Mean Corpuscular Hgb 29.9 pg (27.0-32.0); Mean Corpuscular Volume 96.1 fL (80-94); Monocyte# 0.89 X10^3/uL; Monocyte% 9.9 % (0-10); Neutrophil # 5.42 X10^3/uL (2.7-7.7); Neutrophil % 60.2 % (47-70); Platelet Count 454 K/mm3 (150-450); RBC Distribution Width CV 14.7 % (11.6-14.6); RBC Distribution Width SD 51.4 fl (35.1-43.9); Red Blood Count 3.55 M/mm3 (4.6-6.2)
[2018-02-01 02:29] LABS: POSITIVE COUNT NO; POSITIVE DIFFERENTIAL NO; POSITIVE MORPHOLOGY NO
--- NOTE | 2018-02-01 02:32 | NURSING ---
Pts Farideh made aware that pt transferred to PCU room 111 d/t shortness of breath and Rapid Reponse team called.
[2018-02-01 02:35] LABS: Anion Gap 13 (5-15); BUN 10 mg/dL (7-18); BUN/Creat Ratio 14.7 RATIO (10-20); Calcium,Total 8.8 mg/dL (8.5-10.1); Chloride 106 mmol/L (98-107); Creatinine, Serum 0.68 mg/dL (0.70-1.30); EST Glomerular Filtration Rate 124 mL/min (>60); Est Glom Filt Rate - Afr Amer 150 mL/min (>60); Estimated Creatinine Clearance 83.34 ml/min; Glucose 300 mg/dL (74-106); Magnesium 1.8 mg/dL (1.6-2.6); Potassium 3.3 mmol/L (3.5-5.1); Sodium Level 140 mmol/L (136-145)
--- NOTE | 2018-02-01 02:40 | NURSING ---
AT 0141 HEARD PT CALL OUT HELP WENT TO ROOM TO SEE WHAT PT NEEDED, COMBO WELDER IN ROOM. PT STATES HE WAS HAVING DIFFICULTY GETTING HIS BREATH. PRIMARY RN NOTIFIED AND WENT TO GET NRB TO PLACE ON PT. REPOSITIONED PT. @ 143 CALLED CPS TO SEE PT. SEE OTHER CHARTING BY PRIMARY RN.
[2018-02-01] MEDS: Piperacil/Tazobactam 3.375 GM/50 ML ML IV ×3 (05:26→21:20)
[2018-02-01] MEDS: Metoprolol Tartrate 50 MG Tablet 150 MG GT ×3 (05:27→21:23)
[2018-02-01 06:55] LABS: Bedside Glucose 223 mg/dL (70-110)
[2018-02-01] MEDS: Budesonide Respules 0.5 MG/2 ML AMPUL.NEB. INHALATION ×2 (07:24→22:16)
[2018-02-01] MEDS: Insulin Lispro 100 UNIT/ML INSULN.PEN SC ×4 (09:34→21:17)
[2018-02-01] MEDS: Magnesium Oxide 400 MG Tablet GT ×3 (09:34→16:40)
[2018-02-01] MEDS: Ascorbic Acid 500 MG Tablet 1000 MG GT (09:36)
[2018-02-01] MEDS: Polyethylene Glycol 3350 17 GM PACKET GT (09:36)
[2018-02-01] MEDS: Ferrous Sulfate 300 MG/5 ML UDC GT (09:36)
[2018-02-01] MEDS: SMZ/TPM Suspension 20 ML GT ×2 (09:37→21:22)
[2018-02-01] MEDS: Linezolid 600 MG Tablet GT ×2 (09:37→21:24)
[2018-02-01] MEDS: AMANTADINE HCL 50 MG/5ML 100 MG GT (09:54)
[2018-02-01 10:26] LABS: Potassium 3.6 mmol/L (3.5-5.1)
[2018-02-01] MEDS: Acetaminophen 650 MG/20 ML UDC GT (10:35)
[2018-02-01] MEDS: diazePAM 2 MG Tablet GT (10:35)
[2018-02-01 12:00] LABS: Bedside Glucose 258 mg/dL (70-110)
--- NOTE | 2018-02-01 12:15 | NURSING ---
Removed ostomy appliance to assess stoma and peristomal skin. there are a few blistered areas noted just lateral to the flange. pt has been picking at a lot of things this morning. stoma is pink, and viable. stoma still edematous. measures approx 2 1/4 peristomal skin is intact other than the blisters. there has been a moderate amount of soft brown stool. peristomal skin cleansed with Dial soap and water. pat dry. applied a new flat 2 piece [place] appliance. pt tolerated well.
--- NOTE | 2018-02-01 12:23 | NURSING ---
stoma photo: left lower abdomen
--- NOTE | 2018-02-01 12:24 | NURSING ---
wound photo: sacrum
--- NOTE | 2018-02-01 13:21 | PCM.PN.SRG ---
Subjective: Patient seen earlier today approximately 1130. Patient was getting a wound VAC placed. Patient denies abdominal pain and has been having good colostomy output - Physical Exam General: Alert, Oriented x3, Cooperative, No apparent distress Abdomen: Soft, Non Tender, Non-Distended, - - Positive PEG in place, incision clean dry and intact, colostomy minimally congested, colostomy bag just changed. Vital Signs Temp Pulse Resp BP Pulse Ox 98 F 95 18 115/57 L 96 02/01/18 11:51 02/01/18 11:59 02/01/18 11:51 02/01/18 11:51 02/01/18 11:51 Oxygen Flow Rate (L/min) 2 Oxygen Delivery Method Room Air Weight: 245 lb 13.047 oz Body Mass Index (BMI) 30.0 Finger Stick Blood Glucose 250 Intake and Output for Last 24 Hours 01/30/18 01/31/18 02/01/18 23:59 23:59 23:59 Intake Total 5415 / 5415 2237 / 2237 1715 / 1715 Output Total 2775 / 2775 3650 / 3650 3350 / 3350 Balance 2640 / 2640 -1413 / -1413 -1635 / -1635 Laboratory Tests Past 24 Hrs 02/01/18 02/01/18 02/01/18 02:00 02:00 09:55 WBC 9.0 RBC 3.55 L Hgb 10.6 L Hct 34.1 L MCV 96.1 H MCH 29.9 MCHC 31.1 L RDW 14.7 H RDW Differential 51.4 H Plt Count 454 H MPV 10.0 Immature Gran % (Auto) 0.300 Neut % (Auto) 60.2 Lymph % (Auto) 26.8 [place] % (Auto) 9.9 Eos % (Auto) 2.2 Baso % (Auto) 0.6 Absolute Neuts (auto) 5.4 Absolute Lymphs (auto) 2.41 Total Counted Not Reportable Sodium 140 Potassium 3.3 L 3.6 Chloride 106 Carbon Dioxide 21.0 Anion Gap 13 BUN 10 Creatinine 0.68 L Estim Creat Clear Calc 83.34 Est GFR (MDRD) Af Amer 150 Est GFR (MDRD) Non-Af 124 BUN/Creatinine Ratio 14.7 Glucose 300 H Calcium 8.8 Magnesium 1.8 Troponin I 0.026 POC Glucose 02/01/18 02/01/18 02/01/18 11:40 06:50 01:44 POC Glucose 258 H 223 H 260 H 01/31/18 01/31/18 22:59 16:39 POC Glucose 206 H 228 H Medical Necessity - Tobacco Use Smoking Status: Former smoker Assessment/Plan All Active Problems (Last Updated 01/15/18 @ 18:40 by Darnell Felix DO) Malnutrition of moderate degree (Acute) Alcohol intoxication (Resolved) Acute respiratory failure (Acute) Aspiration pneumonia (Acute) Acute and chronic respiratory failure with hypoxia (Acute) Sepsis (Resolved) Healthcare associated bacteremia due to Staphylococcus aureus (Resolved) Infected decubitus ulcer (Acute) Infected decubitus ulcer (Acute) FUO (fever of unknown origin) (Acute) Demand ischemia (Resolved) Systolic CHF, acute (Acute) Acute respiratory failure with hypoxia and hypercarbia (Resolved) Multifocal community-acquired pneumonia (Resolved) Severe sepsis (Resolved) 67-year-old male with infected sacral decubitus ulcer status post debridement, postop day 3, laparoscopic diverting colostomy 1. Patient's colostomy appears to be viable and functioning well. No further intervention per surgery. Joann Arias M.D. Pager: [phone] [facility] [address] [place] [address], [facility], [address] [place] [address] Office: [phone]
--- NOTE | 2018-02-01 14:25 | PCM.PN.HOSP ---
Subjective: Complaining of pain after vac change and PT. He is able to eat and his ostomy is functioning. 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 Objective: General: Alert and oriented x3 NAD HEENT: Atraumatic, EOMI, Normocephalic Oral: Moist Mucosa Neck: Supple, No JVD Lungs: Clear to auscultation, Normal air movement, No rhonchi, No wheeze, No rales Cardiovascular: Regular rate, Regular Rhythm, Normal S1, Normal S2, No murmurs Abdomen: Soft,stoma appears healthy Extremities: No edema Skin: Ulcer/ Wound - on buttock stage 4 decub, wound vac in place and suction stable Vitals/I&O's: Vital Signs Temp Pulse Resp BP Pulse Ox 98 F 95 18 115/57 L 96 02/01/18 11:51 02/01/18 11:59 02/01/18 11:51 02/01/18 11:51 02/01/18 11:51 Oxygen Flow Rate (L/min) 2 Oxygen Delivery Method Room Air Weight: 245 lb 13.047 oz Body Mass Index (BMI) 30.0 Finger Stick Blood Glucose 250 Intake and Output for Last 24 Hours 01/30/18 01/31/18 02/01/18 23:59 23:59 23:59 Intake Total 5415 / 5415 2237 / 2237 1715 / 1715 Output Total 2775 / 2775 3650 / 3650 3350 / 3350 Balance 2640 / 2640 -1413 / -1413 -1635 / -1635 Laboratory Results 01/31/18 16:39: POC Glucose 228 H 01/31/18 22:59: POC Glucose 206 H 02/01/18 01:44: POC Glucose 260 H 02/01/18 02:00: WBC 9.0, RBC 3.55 L, Hgb 10.6 L, Hct 34.1 L, MCV 96.1 H, MCH 29.9, MCHC 31.1 L, RDW 14.7 H, RDW Differential 51.4 H, Plt Count 454 H, MPV 10.0, Immature Gran % (Auto) 0.300, Neut % (Auto) 60.2, Lymph % (Auto) 26.8, [place] % (Auto) 9.9, Eos % (Auto) 2.2, Baso % (Auto) 0.6, Absolute Neuts (auto) 5.4, Absolute Lymphs (auto) 2.41, Total Counted Not Reportable 02/01/18 02:00: Sodium 140, Potassium 3.3 L, Chloride 106, Carbon Dioxide 21.0, Anion Gap 13, BUN 10, Creatinine 0.68 L, Estim Creat Clear Calc 83.34, Est GFR (MDRD) Af Amer 150, Est GFR (MDRD) Non-Af 124, BUN/Creatinine Ratio 14.7, Glucose 300 H, Calcium 8.8, Magnesium 1.8, Troponin I 0.026 02/01/18 06:50: POC Glucose 223 H 02/01/18 09:55: Potassium 3.6 02/01/18 11:40: POC Glucose 258 H Current Medications Acetaminophen (Tylenol Liquid) 650 mg GT Q6H PRN PRN PRN Reason: pain/fever Last Admin: 02/01/18 10:35 Dose: 650 mg Albuterol/Ipratropium (Duoneb) 3 ml INHALATION Q2H PRN PRN PRN Reason: SHORTNESS OF BREATH Amantadine HCl () 100 mg GT DAILY [facility] Last Admin: 02/01/18 09:54 Dose: 100 mg Ascorbic Acid (Vitamin C) 1,000 mg GT DAILY@0800 [facility] Last Admin: 02/01/18 09:36 Dose: 1,000 mg Budesonide (Pulmicort Aerosol) 0.5 mg INHALATION BID.RT [facility] Last Admin: 02/01/18 07:24 Dose: 0.5 mg Diazepam (Valium) 2 mg GT 4X/DAY PRN PRN PRN Reason: SPASMS Last Admin: 02/01/18 10:35 Dose: 2 mg Ferrous Sulfate (Ferrous Sulfate Syrup) 300 mg GT DAILY [facility] Last Admin: 02/01/18 09:36 Dose: 300 mg Heparin Sodium (Beef Lung) (Heparin 500 Unit/5 Ml (100/Ml)) 500 unit IV UD PRN PRN Reason: HEPARIN FLUSH Piperacillin Sod/Tazobactam Sod (Zosyn) 3.375 gm in 50 mls @ 12.5 mls/hr IV Q8 [facility] Last Admin: 02/01/18 05:26 Dose: 12.5 mls/hr Insulin Human Lispro (Humalog Kwikpen (Bkc)) 0 unit SC ACHS [facility] PRN Reason: Protocol Last Admin: 02/01/18 11:49 Dose: 4 units Lactobacillus Acidophilus (Acidophilus) 1 tablet GT BID [facility] Last Admin: 02/01/18 09:35 Dose: 1 tablet Lansoprazole (Prevacid) 30 mg PO DAILY [facility] Last Admin: 02/01/18 09:38 Dose: 30 mg Linezolid (Zyvox) 600 mg GT BID [facility] Last Admin: 02/01/18 09:37 Dose: 600 mg Magnesium Oxide (Mag-Ox 400) 400 mg GT TIDCM [facility] Last Admin: 02/01/18 09:34 Dose: 400 mg Metoprolol Tartrate (Lopressor (Beta Devante)) 150 mg GT TID [facility] Last Admin: 02/01/18 05:27 Dose: 150 mg Nitroglycerin (Nitrostat) 0.4 mg SUBLINGUAL Q5M PRN PRN Reason: Chest Pain Nutritional Formula ([place] Flavor) 1 packet GT BIDCM [facility] Last Admin: 02/01/18 09:35 Dose: 1 packet Ondansetron HCl (Zofran) 4 mg IV Q6H PRN PRN PRN Reason: NAUSEA Oxycodone HCl (Oxyir) 5 mg PO Q6H PRN PRN PRN Reason: SEVERE PAIN (6-10/10) Polyethylene Glycol (Miralax) 17 gm GT DAILY [facility] Last Admin: 02/01/18 09:36 Dose: 17 gm Pramipexole Dihydrochloride (Mirapex) 0.25 mg GT QHS [facility] Last Admin: 01/31/18 22:51 Dose: 0.25 mg Pravastatin Sodium (Pravachol) 80 mg GT QHS [facility] Last Admin: 01/31/18 22:52 Dose: 80 mg Sodium Chloride () 5 - 30 ml IV UD PRN PRN Reason: SALINE FLUSH Last Admin: 02/01/18 02:07 Dose: 10 ml Sodium Chloride () 10 - 20 ml IV UD PRN PRN Reason: PICC FLUSH Sodium Hypochlorite (Dakins Solution 0.25% (1/2 Strength)) 1 applic TOPICAL BID [facility] PRN Reason: Protocol Last Admin: 02/01/18 11:48 Dose: Not Given Trimethoprim/Sulfamethoxazole (Bactrim Suspension 800-160mg/20ml) 20 ml GT BID [facility] Last Admin: 02/01/18 09:37 Dose: 20 ml Medical Necessity - Tobacco Use Smoking Status: Former smoker Assessment/Plan All Active Problems (Last Updated 01/15/18 @ 18:40 by Darnell Felix DO) Malnutrition of moderate degree (Acute) Alcohol intoxication (Resolved) Acute respiratory failure (Acute) Aspiration pneumonia (Acute) Acute and chronic respiratory failure with hypoxia (Acute) Sepsis (Resolved) Healthcare associated bacteremia due to Staphylococcus aureus (Resolved) Infected decubitus ulcer (Acute) Infected decubitus ulcer (Acute) FUO (fever of unknown origin) (Acute) Demand ischemia (Resolved) Systolic CHF, acute (Acute) Acute respiratory failure with hypoxia and hypercarbia (Resolved) Multifocal community-acquired pneumonia (Resolved) Severe sepsis (Resolved) 1. 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 TBI/Dysphagia - Happened in October and has not been home since with extensive hospitalization both here and in [place] - right sided hemiplegia from the intracranial hemorrhage - c/w speech therapy as well as PT/OT - He is able to tolerate a PO diet - Any medications that can be crushed or converted to liquid will be. 3. CAD/HTN/HLD/ischemic cardiomyopathy - stable - c/w metoprolol and can resume ASA when ok with surgery 4. IDDM2 - Blood sugars are elevated above 200 - Lantus 15 U BID and SSI, will adjust as needed - May still need meal time insulin 5. COPD - Stable - c/w duonebs and pulmicort and resp therapy 6. GERD - stable - c/w protonix 7. Insomnia - c/w zolpidem 8. restless legs syndrome - stable - c/w pramipexole 9. Depression - Was on a TCA which was discontinued because of the zyvox, will hold off on SSRI or SNRI until abx are completed - He will need outpatient mental health after discharge DVT: SCDs Diet: TF when ostomy functional Code: FULL Dispo: TCU Code Visit Inpatient E&M: 38303 Subs Hosp L2
[2018-02-01 16:55] LABS: Bedside Glucose 183 mg/dL (70-110)
--- NOTE | 2018-02-01 17:03 | NURSING ---
This RN taking over care at this time
[2018-02-01] MEDS: Pramipexole Di-HCl 0.25 MG Tablet GT (21:23)
[2018-02-01] MEDS: Pravastatin 80 MG Tablet GT (21:24)
--- NOTE | 2018-02-01 23:17 | CPS ---
pt on own cpap unit from home, resting well
--- NOTE | 2018-02-01 23:33 | PCM.PN.SRG ---
Subjective: Postop #10 Above events noted. VAC placed today. Had diverting colostomy 01/29/18. - Physical Exam General: Alert, Oriented x3 HEENT: PERRLA, EOMI Oral: Moist Mucosa Neck: Supple Abdomen: Soft, Non-Distended Skin: Ulcer/ Wound - sacral pressure sore wound is stable. No more evidence of infection. VAC placed today without difficulty. Psych/Mental Status: Normal Affect, Appropriate Vital Signs Temp Pulse Resp BP Pulse Ox 97.9 F 92 18 169/83 H 97 02/01/18 20:59 02/01/18 22:20 02/01/18 22:20 02/01/18 20:59 02/01/18 20:59 Oxygen Flow Rate (L/min) 2 Oxygen Delivery Method Room Air Weight: 245 lb 13.047 oz Body Mass Index (BMI) 30.0 Finger Stick Blood Glucose 250 Intake and Output for Last 24 Hours 01/30/18 01/31/18 02/01/18 23:59 23:59 23:59 Intake Total 5415 / 5415 2237 / 2237 2458.7 / 2458.7 Output Total 2775 / 2775 3650 / 3650 4725 / 4725 Balance 2640 / 2640 -1413 / -1413 -2266.3 / -2266.3 Laboratory Tests Past 24 Hrs 02/01/18 02/01/18 02/01/18 02:00 02:00 09:55 WBC 9.0 RBC 3.55 L Hgb 10.6 L Hct 34.1 L MCV 96.1 H MCH 29.9 MCHC 31.1 L RDW 14.7 H RDW Differential 51.4 H Plt Count 454 H MPV 10.0 Immature Gran % (Auto) 0.300 Neut % (Auto) 60.2 Lymph % (Auto) 26.8 [place] % (Auto) 9.9 Eos % (Auto) 2.2 Baso % (Auto) 0.6 Absolute Neuts (auto) 5.4 Absolute Lymphs (auto) 2.41 Total Counted Not Reportable Sodium 140 Potassium 3.3 L 3.6 Chloride 106 Carbon Dioxide 21.0 Anion Gap 13 BUN 10 Creatinine 0.68 L Estim Creat Clear Calc 83.34 Est GFR (MDRD) Af Amer 150 Est GFR (MDRD) Non-Af 124 BUN/Creatinine Ratio 14.7 Glucose 300 H Calcium 8.8 Magnesium 1.8 Troponin I 0.026 POC Glucose 02/01/18 02/01/18 02/01/18 16:37 11:40 06:50 POC Glucose 183 H 258 H 223 H 02/01/18 01/31/18 01:44 22:59 POC Glucose 260 H 206 H Medical Necessity - Tobacco Use Smoking Status: Former smoker Assessment/Plan All Active Problems (Last Updated 01/15/18 @ 18:40 by Darnell Felix DO) Malnutrition of moderate degree (Acute) Alcohol intoxication (Resolved) Acute respiratory failure (Acute) Aspiration pneumonia (Acute) Acute and chronic respiratory failure with hypoxia (Acute) Sepsis (Resolved) Healthcare associated bacteremia due to Staphylococcus aureus (Resolved) Infected decubitus ulcer (Acute) Infected decubitus ulcer (Acute) FUO (fever of unknown origin) (Acute) Demand ischemia (Resolved) Systolic CHF, acute (Acute) Acute respiratory failure with hypoxia and hypercarbia (Resolved) Multifocal community-acquired pneumonia (Resolved) Severe sepsis (Resolved) 1. Sacral pressure sore, Stage IV. 2. Traumatic brain injury. 3. Right sided hemiplegia. 4. Osteomyelitis. 5. Diabetes mellitus. 6. Moderate second degree malnutrition. 7. VRE. Continue IV Zosyn and Bactrim and Zyvox. Operative culture shows Serratia marcescens and VRE. Pathology is negative for osteomyelitis. With pathology negative, osteomyelitis is still clinically suspected, and will need urology teacher IV antibiotics. Wound looked clean without further evidence of infection. No bleeding seen. VAC placed today. His diverting colostomy was done 01/29/18 and is healing satisfactory and is functional. Hgb improved to 10.6. Continue Iron supplementation. After surgery, the patient may benefit from a short stay at an [facility]. He will have complex wound care with the VAC combined with urology teacher antibiotics. TCU evaluation is in process. Patient has had recent severe weight loss (>5% in 1 month) and moderate suboptimal energy intake. Prealbumin was 15.4. Encourage nutritional supplementation with protein to help the healing process. He is on [place].
[2018-02-02] VITALS (11 sets, daily range): BP systolic 152–189; BP diastolic 71–95; PULSE 80–113; RESP 16–26; TEMP 36.4–36.9; O2SAT 96–97
[2018-02-02] LABS: Bedside Glucose 253 mg/dL (70-110)
--- NOTE | 2018-02-02 00:08 | NURSING ---
Per SUPERVISOR [employer] report, pt took CPAP off and does not want it back on.
[2018-02-02] MEDS: Ipratropium/Albuterol Sulfate 3 ML AMPUL.NEB INHALATION ×2 (01:28→06:48)
--- NOTE | 2018-02-02 02:38 | NURSING ---
Verbal handoff given to Orquidea Talavera RN. She will resume care of pt.
[2018-02-02] MEDS: Piperacil/Tazobactam 3.375 GM/50 ML ML IV ×2 (05:35→15:15)
[2018-02-02] MEDS: Metoprolol Tartrate 50 MG Tablet 150 MG GT (05:36)
[2018-02-02] MEDS: Budesonide Respules 0.5 MG/2 ML AMPUL.NEB. INHALATION (06:48)
[2018-02-02 07:36] LABS: Bedside Glucose 186 mg/dL (70-110)
[2018-02-02] MEDS: SMZ/TPM Suspension 20 ML GT (10:05)
[2018-02-02] MEDS: Acetaminophen 650 MG/20 ML UDC GT (10:05)
[2018-02-02] MEDS: Magnesium Oxide 400 MG Tablet GT (10:06)
[2018-02-02] MEDS: Linezolid 600 MG Tablet GT (10:06)
[2018-02-02] MEDS: Ascorbic Acid 500 MG Tablet 1000 MG GT (10:06)
[2018-02-02] MEDS: Ferrous Sulfate 300 MG/5 ML UDC GT (10:07)
[2018-02-02] MEDS: Polyethylene Glycol 3350 17 GM PACKET GT (10:07)
[2018-02-02] MEDS: AMANTADINE HCL 50 MG/5ML 100 MG GT (10:09)
[2018-02-02] MEDS: Insulin Lispro 100 UNIT/ML INSULN.PEN SC ×3 (10:09→17:11)
--- NOTE | 2018-02-02 11:21 | PCM.PN.ID ---
Subjective: Alert overall clinically stable no specific complaints. Tolerating antimicrobial therapy in the form of Zyvox, Zosyn, oral Bactrim. VAC is in place. Objective: Alert and oriented ?3 does not appear toxic abdomen is obese but soft wound VAC is in place in his buttocks area - Physical Exam Vital Signs Temp Pulse Resp BP Pulse Ox 98.5 F 83 16 181/95 H 96 02/02/18 09:52 02/02/18 09:52 02/02/18 09:52 02/02/18 09:52 02/02/18 09:52 Oxygen Flow Rate (L/min) 3 Oxygen Delivery Method Room Air Weight: 101 kg Body Mass Index (BMI) 30.0 Finger Stick Blood Glucose 250 Intake and Output for Last 24 Hours 01/31/18 02/01/18 02/02/18 23:59 23:59 23:59 Intake Total 2237 / 2237 2938.7 / 2938.7 746 / 746 Output Total 3650 / 3650 4725 / 4725 900 / 900 Balance -1413 / -1413 -1786.3 / -1786.3 -154 / -154 POC Glucose 02/02/18 02/01/18 02/01/18 07:04 21:15 16:37 POC Glucose 186 H 253 H 183 H 02/01/18 11:40 POC Glucose 258 H Medical Necessity - Tobacco Use Smoking Status: Former smoker Route of nutrition/ use of supplements: [] Nutritional Intake: [] IV Site: [] Lane Catheter: [] - Assessment/Plan Antibiotics: [] Assessment/Plan: [] Complicated decubitus ulcer infection polymicrobial process. Will continue current antimicrobial therapy and continue supportive care. Recent laboratory studies reviewed.
--- NOTE | 2018-02-02 11:23 | CASEMGMT ---
Addendum entered by Nydia Paniagua 02/02/18 12:00: Received a call from Dr Juarez and he is okay with patient going to TCU today. He will be up between 2p and 3p to do d/c paperwork. SW notified RN, supercharge repair supervisor, pocket secretary assembler, Noni in rehab, and patient's . Plan: [facility] TCU under skilled level of care. Nydia RAMOS Original Note: Patient was approved to go back to [facility] TCU. CONTRERAS notified hospitalist who indicated Dr Juarez is the primary on the case. CONTRERAS called Dr Juarez and left him a message inquiring if he is ok with patient going today and when he will be in to do paperwork. Plan: [facility] TCU under skilled level of care. Nydia MADDEN MSW
[2018-02-02] MEDS: Magnesium Oxide 400 MG Tablet PO ×2 (11:39→17:09)
[2018-02-02 11:51] LABS: Bedside Glucose 292 mg/dL (70-110)
--- NOTE | 2018-02-02 14:25 | PCM.PROGNOTE ---
<Julio Estrada - Last Filed: 02/02/18 14:25> Subjective: Patient doing well. Was somewhat agitated with therapy this AM, but has improved. His pain is worse with activity in bed. Minimal at rest. No fever / chill. Tolerating diet. No choking, no cough/sob. Wound vac in place. - Physical Exam General: Alert, Oriented x3, Cooperative HEENT: Atraumatic, PERRLA, EOMI, Normocephalic Neck: Supple, No JVD, Negative Carotid Bruits Lungs: Clear to auscultation, Normal air movement Cardiovascular: Regular rate, No murmurs Abdomen: Bowel Sounds Present, Soft, Non Tender Extremities: No edema, Capillary Refill Less than 3 Seconds Skin: No rashes, No breakdown Musculoskeletal: No Tenderness to Palpation of Joints or Extremities Neurological: Cranial nerves II-XII grossly intact Psych/Mental Status: Normal Affect, Appropriate, Alert and oriented to time, place, person, mood and affect Vital Signs Temp Pulse Resp BP Pulse Ox 98.5 F 95 16 181/95 H 96 02/02/18 09:52 02/02/18 11:03 02/02/18 09:52 02/02/18 09:52 02/02/18 09:52 Oxygen Flow Rate (L/min) 3 Oxygen Delivery Method Room Air Weight: 222 lb 10.67 oz Body Mass Index (BMI) 30.0 Finger Stick Blood Glucose 250 Intake and Output for Last 24 Hours 01/31/18 02/01/18 02/02/18 23:59 23:59 23:59 Intake Total 2237 / 2237 2938.7 / 2938.7 1427 / 1427 Output Total 3650 / 3650 4725 / 4725 1500 / 1500 Balance -1413 / -1413 -1786.3 / -1786.3 -73 / -73 POC Glucose 02/02/18 02/02/18 02/01/18 11:37 07:04 21:15 POC Glucose 292 H 186 H 253 H 02/01/18 16:37 POC Glucose 183 H Medical Necessity - Tobacco Use Smoking Status: Former smoker Assessment/Plan All Active Problems (Last Updated 01/15/18 @ 18:40 by Darnell Felix DO) Malnutrition of moderate degree (Acute) Alcohol intoxication (Resolved) Acute respiratory failure (Acute) Aspiration pneumonia (Acute) Acute and chronic respiratory failure with hypoxia (Acute) Sepsis (Resolved) Healthcare associated bacteremia due to Staphylococcus aureus (Resolved) Infected decubitus ulcer (Acute) Infected decubitus ulcer (Acute) FUO (fever of unknown origin) (Acute) Demand ischemia (Resolved) Systolic CHF, acute (Acute) Acute respiratory failure with hypoxia and hypercarbia (Resolved) Multifocal community-acquired pneumonia (Resolved) Severe sepsis (Resolved) 1. Infected stage 4 pressure injury s/p surgical excision ([place]) 01/22 with negative bone cultures. VRE and serratia - abx per ID total 6 weeks. Wound vac. Wound care. Afebrile, no leukocytosis. Weekly cbc/bmp per id. S/p end colostomy 01/29 (Psych[facility]) to facilitate wound healing. Ostomy care as directed. 2. TBI - severe debility leading to above. Also with dysphagia from this. Has PEG but is now on oral diet. Crush pills that may be crushed or liquid if possible. Continue speech therapy at SNF. 3. CAD/HLD/HTN/ischemic CM - continue home meds. resume asa per surgery. 4. IDDM2 - continue medications as ordered 5. COPD - stable. Pulmicort, duonebs, albuterol ih. 6. GERD - ppi 7. Insomnia - zolpidem 8. RLS - pramipexole 9. Depression - hold serotonergics while on zyvox, elevated risk of serotonin syndrome. No Ultram for the same reason. 10. JIM - continue cpap qhs. pt has machine. needs to continue at SNF. DVT ppx: scds DC planning: to TCU today Thank you for the opportunity to participate in the care of this patient. This patient was seen by Julio Estrada PA-C under the supervision of Doctor Mathews. <Clyde Mathews F - Last Filed: 02/02/18 15:42> - Physical Exam Vital Signs Temp Pulse Resp BP Pulse Ox 97.5 F L 113 H 18 152/71 H 97 02/02/18 15:20 02/02/18 15:20 02/02/18 15:20 02/02/18 15:20 02/02/18 15:20 Oxygen Flow Rate (L/min) 3 Oxygen Delivery Method Room Air Weight: 222 lb 10.67 oz Body Mass Index (BMI) 30.0 Finger Stick Blood Glucose 250 Intake and Output for Last 24 Hours 01/31/18 02/01/18 02/02/18 23:59 23:59 23:59 Intake Total 2237 / 2237 2938.7 / 2938.7 1427 / 1427 Output Total 3650 / 3650 4725 / 4725 1500 / 1500 Balance -1413 / -1413 -1786.3 / -1786.3 -73 / -73 POC Glucose 02/02/18 02/02/18 02/01/18 11:37 07:04 21:15 POC Glucose 292 H 186 H 253 H 02/01/18 16:37 POC Glucose 183 H Assessment/Plan Addendum: Dr. Mathews I personally examined the patient and reviewed the chart. I agree with the above. Mr. Vargas has been steadily improving and is currently able to take both food and his medications orally. His his colostomy is also functional. I agree with the plan to transfer patient to transitional care unit today for further therapy. He will need to continue pain medications as needed for wound VAC changes and physical therapy given the pain that it causes to be moved. Code Visit Inpatient E&M: 86892 Subs Hosp L2
--- NOTE | 2018-02-02 14:51 | NURSING ---
There is a moderate amount of soft brown stool noted in the colostomy appliance. nurse states that patient had pulled off the appliance early this am. patient has still been picking at things. was pulling at his burks catheter when this nurse was in the room. tucked blankets around pt to hopefully keep patient from picking. VAC dressing intact. Good seal noted at 150mmHg low continuous suction. Dressing to be changed tomorrow.
[2018-02-02] MEDS: Metoprolol Tartrate 50 MG Tablet 150 MG PO (15:15)
[2018-02-02] MEDS: 0.9% NaCl Peripheral Flush Adult/Peds IV (15:16)
--- NOTE | 2018-02-02 15:19 | PCM.PN.SRG ---
Subjective: Postop #11 Patient resting comfortably. - Physical Exam General: Alert, Oriented x3 HEENT: PERRLA, EOMI Oral: Moist Mucosa Neck: Supple Abdomen: Soft, Non-Distended, - - stoma pink and functioning. Skin: Ulcer/ Wound - sacral pressure sore wound is stable. VAC in place. Minimal drainage in the canister. Psych/Mental Status: Normal Affect, Appropriate Vital Signs Temp Pulse Resp BP Pulse Ox 98.5 F 111 H 16 181/95 H 96 02/02/18 09:52 02/02/18 15:15 02/02/18 09:52 02/02/18 09:52 02/02/18 09:52 Oxygen Flow Rate (L/min) 3 Oxygen Delivery Method Room Air Weight: 222 lb 10.67 oz Body Mass Index (BMI) 30.0 Finger Stick Blood Glucose 250 Intake and Output for Last 24 Hours 01/31/18 02/01/18 02/02/18 23:59 23:59 23:59 Intake Total 2237 / 2237 2938.7 / 2938.7 1427 / 1427 Output Total 3650 / 3650 4725 / 4725 1500 / 1500 Balance -1413 / -1413 -1786.3 / -1786.3 -73 / -73 POC Glucose 02/02/18 02/02/18 02/01/18 11:37 07:04 21:15 POC Glucose 292 H 186 H 253 H 02/01/18 16:37 POC Glucose 183 H Medical Necessity - Tobacco Use Smoking Status: Former smoker Assessment/Plan All Active Problems (Last Updated 01/15/18 @ 18:40 by Darnell Felix DO) Malnutrition of moderate degree (Acute) Alcohol intoxication (Resolved) Acute respiratory failure (Acute) Aspiration pneumonia (Acute) Acute and chronic respiratory failure with hypoxia (Acute) Sepsis (Resolved) Healthcare associated bacteremia due to Staphylococcus aureus (Resolved) Infected decubitus ulcer (Acute) Infected decubitus ulcer (Acute) FUO (fever of unknown origin) (Acute) Demand ischemia (Resolved) Systolic CHF, acute (Acute) Acute respiratory failure with hypoxia and hypercarbia (Resolved) Multifocal community-acquired pneumonia (Resolved) Severe sepsis (Resolved) 1. Sacral pressure sore, Stage IV. 2. Traumatic brain injury. 3. Right sided hemiplegia. 4. Osteomyelitis. 5. Diabetes mellitus. 6. Moderate second degree malnutrition. 7. VRE. Continue IV Zosyn and Bactrim and Zyvox. Operative culture shows Serratia marcescens and VRE. Pathology is negative for osteomyelitis. With pathology negative, osteomyelitis is still clinically suspected, and will need chcf IV antibiotics. VAC in place. Minimal drainage in the canister. His diverting colostomy was done 01/29/18 and is healing satisfactory and is functional. Hgb improved to 10.6. Continue Iron supplementation. After surgery, the patient may benefit from a short stay at an ECF. He will have complex wound care with the VAC combined with predatory animal exterminator antibiotics. TCU evaluation has been approved. Discharge to TCU today. [facility]up at [facility] after discharge from TCU. Patient has had recent severe weight loss (>5% in 1 month) and moderate suboptimal energy intake. Prealbumin was 15.4. Encourage nutritional supplementation with protein to help the healing process. He is on [place].
--- NOTE | 2018-02-02 15:19 | PCM.TXEXTCAR ---
- Diet 01/30/18 11:34 Diet: Regular Diet Dietary Modifications:: Mechanical Soft Diet [place] Thick Liquids Type of Dietary Supplement:: Ensure Clear Is pt able to select menu?: Yes - Routine Orders/Code Status Lane Catheter Size: [address] Catheter: monthly and prn Routine Lab Work: CBC - qweekly., BMP - qweekly., - - ESR and CRP qweekly. - Wound(s) SACRUM Wound Type: Pressure Injury Dressing Change: applied KCI wound VAC Abdomen Wound Type: Surgical Incision Dressing Change: Dry Sterile Dressing Abdomen Proximal to Stoma appliance Wound Type: blister - Suggestions for Active Care Change Position every (hours): 2 - Therapies Weight Bearing: Weight bearing as tolerated - with assist during therapy. Physical Therapy: Eval and Treat Occupational Therapy: Eval and Treat - Allergies/Procedures Done in Hospital Allergies/Adverse Reactions: Allergies atorvastatin Allergy (Verified 01/21/18 15:52) Hives cilostazol Allergy (Verified 01/21/18 15:52) Hives colestipol Allergy (Verified 01/21/18 15:52) Hives diltiazem Allergy (Verified 01/21/18 15:52) Hives gemfibrozil Allergy (Verified 01/21/18 15:52) Hives naproxen [From Naprosyn] Allergy (Verified 01/21/18 15:52) Hives niacin Allergy (Verified 01/21/18 15:52) Hives Penicillins Allergy (Verified 01/21/18 15:52) Hives pravastatin Allergy (Verified 01/21/18 15:52) Hives procaine [From Novocain] Allergy (Verified 01/21/18 15:52) Hives rosuvastatin Allergy (Verified 01/21/18 15:52) Hives simvastatin Allergy (Verified 01/21/18 15:52) Hives isosorbide Adverse Reaction (Severe, Verified 01/21/18 15:52) Unknown Procedures: PICC line placement, Wound Vac placement, - - 01/22/18 - Excision sacral pressure sore, Stage IV, with partial ostectomy for osteomyelitis. 01/29/18 - Diverting colostomy. - Type of Care/Length of Stay Estimated LOS: More Than 30 Days Type of Care Needed: Skilled Rehab Potential: Fair Prognosis: Fair - Additional Orders/Day of Discharge H&P will serve as current which was dated: 01/20/18 Day of Discharge: 02/02/18 - Dietary and Speech Recommendations Dietitian Recommendations/Changes: Suggest therapeutic diet change to Carbohdrate-Controlled. Please reweigh ?? accuracy of wt loss as noted. Continue PO as tolerated with speech to adjust consistency/texture as indicated. Rec continue Kingston bid for wound healing. Consider TF support as indicated of Glucerna 1.5 Luis at goal rate 60 ml/hr w/ 180 cc H2O flush every 4 hours to provide 2160 kcal, 119 gm protein & 2173 cc free water/d w/ water flush of 180 cc H2O q 4 hours. - Follow Up Care Primary Care Physician: Julissa Lamb MD [Primary Care Provider] - Please Follow Up With: Scott Juarez MD - call [phone] for appt. When: after discharge, at wound center.
--- NOTE | 2018-02-02 15:37 | PCM.DC.SUM ---
Discharge Date and Diagnosis Date of Admission: 01/22/18 Date of Discharge: 02/02/18 - Primary Discharge Diagnosis Sacral pressure sore, Stage IV. Moderate second degree malnutrition. VRE. - Secondary Discharge Diagnosis Hemiplegia affecting right dominant side Osteomyelitis of sacrum Fall Traumatic brain injury Intraparenchymal hemorrhage of brain Subarachnoid hemorrhage Subdural hematoma Intraventricular hemorrhage Right scapula fracture Dysphagia Insomnia Vitamin D deficiency Depression GERD (gastroesophageal reflux disease) BPH (benign prostatic hyperplasia) Congestive heart failure Alcohol abuse Sleep apnea Diabetes mellitus Encounter for long-term current use of high risk medication Obstructive sleep apnea Presence of coronary angioplasty implant and graft Presence of aortocoronary bypass graft Non-ST elevation myocardial infarction (NSTEMI), initial care episode Ischemic cardiomyopathy Restless leg syndrome Hyperlipidemia Hypertensive emergency COPD (chronic obstructive pulmonary disease) Hypertension Morbid obesity CAD (coronary artery disease) Stented coronary artery Former smoker Anemia of chronic disease Hospital Course and Treatment Imaging Results: Diagnostic Data KUB X-Ray 01/28/18 19:00 IMPRESSION: No obstruction. Improvement of stool. Electronically Signed: Car Obrien MD at 22:57 EDT , Service support , Chest X-Ray 02/01/18 01:58 IMPRESSION: Interval improvement of acute CHF. Mild persistent interstitial prominence in the lower lung dover is probably chronic. Electronically Signed: Trenton Kinney MD at 2:52 EDT , Service support , Consultations 01/25/18 06:59 Consult: Onc/Wound/pals specialist Routine Comment: Reason for Consult:: VAC [facility] Hospitalist Group - Dr. Evans, Dr. Felix, Dr. Mathews. Infectious Diseases - Dr. Wilkerson, Dr. Ovalles. General Surgery - Dr. Arias, Dr. Joshi. [facility] - Dr. Swain. Operations: - - 01/22/18 - Excision sacral pressure sore, Stage IV, with partial ostectomy for osteomyelitis. 01/29/18 - Laparoscopic diverting end sigmoid colostomy. Procedures: PICC line placement, Wound vac placement Summary of Care Provided: The patient is a 67 year old M admitted to TCU for rehabilitation following a recent fall with intracranial bleeds and right-sided paraplegia. During this time, he developed a sacral pressure sore. He is complaints of pain in his sacral area. Dr. Arias took the patient to surgery on 01/15/18 where a sacral debridement was done. She reports there was bleeding in the subcutaneous tissue after removing some nonviable tissue. Wet to dry dressings were started. Preoperative cultures showed Enterococcus faecalis, Staphylococcus aureus, and Streptococcus pseudoporcinus. Operative culture showed E.coli. He was started on Vancomycin, Ceftriaxone, and Flagyl. He was later changed to Zosyn. Over the next couple of days, some of the tissue in the wound did not look healthy with some evidence of fat necrosis. Bone is palpable. With the polymicrobial nature of the infection, there is concern about extension of the infection down to the bone. I was asked to evaluate this patient for surgical options for further treatment. Further operative excision was recommended. He was taken to the OR on 01/22/18 where he underwent excision sacral pressure sore, Stage IV, with partial ostectomy for osteomyelitis. He tolerated the procedure well. It was difficult to place a VAC postop because of stool contamination in the wound as well as proximity of the wound to the anal opening. So daily Silver dressing changes were started. His Zosyn was continued postop. Hospitalist Group was consulted for medical management. Infectious Diseases was consulted for antibiotic management. Operative cultures showed Serratia marcescens and VRE. His antibiotics were changed as Bactrim and Zyvox were added to the Zosyn. His Pathology was negative for osteomyelitis. General Surgery was consulted because of stool contamination in the wound. A diverting colostomy was done on 01/29/18. After the diverting colostomy was done, the VAC was placed without difficulty. It will be changed three times per week at 150 mmHg continuous suction. Postop he spent some time in the ICU with an [facility] consult for management while in the ICU. He was transferred back to the floor when stable. He was approved to go to TCU on 02/02/18 and was discharged. His Hgb was low indicative of anemia of chronic disease. No bleeding was noted in the wound postop and there was minimal blood loss during surgery. Iron supplementation was started. His Hgb was 8.7 the day of surgery and at discharge it improved to 10.6. Patient has had recent severe weight loss (>5% in 1 month) and moderate suboptimal energy intake. Prealbumin was 15.4. Encourage nutritional supplementation with protein to help the healing process. He is on [place] in addition to tube feedings. He will continue Zosyn, Bactrim, and Zyvox while in TCU. He will followup to see me at the Wound Center after discharge from TCU. Discharge Diet: No Restrictions, - - encourage nutritional supplementation with protein to help the healing process. Call your doctor if your incision/area has: Continuous Slow Oozing, Sudden Increased Bleeding, Increased Pain/ Swelling, Increased Redness, Foul Smelling Discharge, Swelling at the incision site Call your doctor if you observe: Fever of 101 or Higher, Coldness, Increased Pain, Shortness of breath, Chest pain, Calf discomfort, Uncontrolled pain Suture Line Care: - - vac changes three times per week at 150 mmHg continuous suction. Cleanse incision/area with: Soap & Water - may cleanse the sacral wound with soap and water at the time of the vac change. Catheter: Lane to large bag Home Medications: Medications to take at Discharge Acetaminophen [Tylenol] 650 mg PO Q6H PRN PRN 01/16/18 Insulin Glargine [Lantus SoloStar Pen] 15 units SQ BID 01/16/18 Insulin Lispro [Humalog Benjie Kwikpen] 7 unit SQ TIDCM 01/16/18 Ipratropium/Albuterol Sulfate [Duoneb] 3 ml INHALATION Q2H PRN PRN 01/16/18 Metoprolol Tartrate 150 mg PO TID 01/16/18 Nitroglycerin [Nitrostat] 0.4 mg SUBLINGUAL Q5M PRN 01/16/18 Polyethylene Glycol 3350 [Miralax] 17 gm PO DAILY 01/16/18 Pravastatin [Pravachol] 80 mg PO QHS 01/16/18 Tamsulosin HCl [Flomax] 0.4 mg PO QHS 01/16/18 Zolpidem Tartrate [Ambien] 5 mg PO QHS PRN PRN 01/16/18 Argin/Glut/Cahmb/Collag/Mv-Min [[place] Packet] 1 each PO BIDCM 01/22/18 Magnesium Oxide [Mag-Ox 400] 400 mg PO TIDCM 01/22/18 Pantoprazole Sodium [Protonix] 40 mg PO DAILY 01/22/18 Piperacil/Tazobactam [Zosyn] 3.375 gm IV Q8 01/22/18 Pramipexole Di-HCl [Mirapex] 0.25 mg PO QHS 01/22/18 Amantadine [Symmetrel] 100 mg PO DAILY 02/02/18 Ascorbic Acid [Vitamin C] 1,000 mg PO DAILY@0800 02/02/18 Budesonide Aerosol [Pulmicort Respules] 0.5 mg INHALATION BID.RT 02/02/18 Diazepam [Valium] 2 mg PO 4X/DAY PRN PRN #30 tab 02/02/18 Furosemide [Lasix] 40 mg PO BIDLX 02/02/18 Heparin Sodium,Porcine/Pf [Heparin 500 Unit/5 ml (100/ml)] 500 unit IV UD PRN syringe 02/02/18 Iron Polysaccharide Complex [Ferrex 150] 150 mg PO DAILY 02/02/18 Lactobacillus Acidophilus [Acidophilus] 1 tablet PO BID 02/02/18 Lansoprazole [Prevacid] 30 mg PO DAILY 02/02/18 Linezolid [Zyvox] 600 mg PO BID 02/02/18 Nutritional Supplement [[place] - ORANGE FLAVOR] 1 packet PO BIDCM 02/02/18 Ondansetron [Zofran] 4 mg IV Q6H PRN PRN vial 02/02/18 Oxycodone [Oxyir] 5 mg PO 4X/DAY PRN PRN 7 Days #30 tab 02/02/18 Potassium Cloride Effervescent [Potassium Chl 25 Meq Eff (For Liquid)] 50 meq PO BIDCM 02/02/18 Smz/Tmp Ds [Bactrim Ds] 1 tablet PO BIDCM 02/02/18 traMADol [Ultram] 50 mg PO TID PRN PRN 7 Days #20 tab 02/02/18 Following Prescrptions Were Given to Patient: Diazepam [Valium] 2 mg PO 4X/DAY PRN PRN #30 tab PRN Reason: SPASMS Oxycodone [Oxyir] 5 mg PO 4X/DAY PRN PRN 7 Days #30 tab PRN Reason: Pain traMADol [Ultram] 50 mg PO TID PRN PRN 7 Days #20 tab PRN Reason: Pain Primary Care Physician: Julissa Lamb MD [Primary Care Provider] - Please Follow Up With: Scott Juarez MD - call [phone] for appt. When: after discharge, at wound center. Disposition: [facility] facility Minutes spent on discharge:: 35 Patient Condition:: Stable Medical Necessity - Tobacco Use Smoking Status: Former smoker Meaningful Use Info Meaningful Use Diagnoses (Choose all that apply): None applicable
[2018-02-02] MEDS: Smz/Tmp Ds Tablet 1 TABLET PO (17:11)
[2018-02-02 17:25] LABS: Bedside Glucose 201 mg/dL (70-110)
--- NOTE | 2018-02-02 17:27 | NURSING ---
Report called to [facility] in TCU
== END 2018-02-02 17:44 | disposition skilled nursing facility (03) | DRG 579 ==
LOC: MS3 15:33 → ICU 01-29 10:07 → MS3 01-30 10:27 → PCU 02-01 02:29
PROVIDERS: Internal Medicine; Internal Medicine Critical Care Medicine; Surgery; Admitting Provider Surgery; Family Provider Family Medicine; PCP Family Medicine; Visit Provider Family Medicine
PROC: 0KBP0ZZ Excision of Left Hip Muscle, Open Approach (ICD-10-PCS; principal; 2018-01-22 07:15)
PROC: 0D1N4Z4 Bypass Sigmoid Colon to Cutaneous, Percutaneous Endoscopic Approach (ICD-10-PCS; principal; 2018-01-29 08:45)
DX: L89.154 Pressure ulcer of sacral region, stage 4 (principal); J96.01 Acute respiratory failure with hypoxia; E44.0 Moderate protein-calorie malnutrition; G81.91 Hemiplegia, unspecified affecting right dominant side; M46.28 Osteomyelitis of vertebra, sacral and sacrococcygeal region; Z68.30 Body mass index [BMI] 30.0-30.9, adult; N40.0 Benign prostatic hyperplasia without lower urinary tract symptoms; G47.33 Obstructive sleep apnea (adult) (pediatric); K21.9 Gastro-esophageal reflux disease without esophagitis; I25.10 Atherosclerotic heart disease of native coronary artery without angina pectoris; G25.81 Restless legs syndrome; E78.5 Hyperlipidemia, unspecified; Z87.891 Personal history of nicotine dependence; Z95.5 Presence of coronary angioplasty implant and graft; S06.6X9S Traumatic subarachnoid hemorrhage with loss of consciousness of unspecified duration, sequela; S06.5X9S Traumatic subdural hemorrhage with loss of consciousness of unspecified duration, sequela; W19.XXXS Unspecified fall, sequela; E11.9 Type 2 diabetes mellitus without complications; Z79.4 Long term (current) use of insulin; I25.2 Old myocardial infarction; D53.9 Nutritional anemia, unspecified; Z95.1 Presence of aortocoronary bypass graft; B95.2 Enterococcus as the cause of diseases classified elsewhere; B96.89 Other specified bacterial agents as the cause of diseases classified elsewhere; Z16.21 Resistance to vancomycin; Z93.1 Gastrostomy status; J44.9 Chronic obstructive pulmonary disease, unspecified; I25.5 Ischemic cardiomyopathy; E55.9 Vitamin D deficiency, unspecified; R13.10 Dysphagia, unspecified; G47.00 Insomnia, unspecified
CPT/HCPCS: 31720; 36600; 71045; 72192; 74018; 80048; 80076; 82550; 82607; 82746; 82803; 82962; 83036; 83735; 84132; 84478; 84484; 85025; 85027; 85610; 85652; 85730; 86140; 86850; 86900; 87070; 87075; 87077; 87102; 87106; 87186; 87205; 87206; 87641; 88305; 88311; 92507; 92526; 92611; 93005; 94002; 94640; 94660; 97110; 97140; 97163; 97166; 97530; 97535; 97802; 97803; 99406; J7030; J7050; J7120; A4216; C1760; J1940; J2405

== ENCOUNTER 2018-02-02 17:54 | Inpatient (IN) | payer OTHER, MEDICARE, MEDICAID, SELFPAY ==
[2017-02-20 12:18] VITALS: BMI 46.4
[2018-02-02 18:08] VITALS: BP 151/83; PULSE 86; RESP 18; TEMP 36.8; O2SAT 96; BMI 33.0
[2018-02-02 18:58] VITALS: PULSE 88; RESP 18; O2SAT 98
[2018-02-02] MEDS: Budesonide Respules 0.5 MG/2 ML AMPUL.NEB. INHALATION (18:58)
--- NOTE | 2018-02-02 20:31 | PCM.HP.STD ---
Problem List (1) Traumatic brain injury Status: Chronic Qualifiers: (2) Dysphagia Status: Chronic (3) Insomnia Status: Chronic (4) Vitamin D deficiency Status: Chronic (5) Depression Status: Chronic (6) GERD (gastroesophageal reflux disease) Status: Chronic Qualifiers: (7) BPH (benign prostatic hyperplasia) Status: Chronic (8) Right hemiplegia Status: Chronic (9) Congestive heart failure Status: Chronic (10) Alcohol abuse Status: Chronic (11) Sleep apnea Status: Chronic (12) Diabetes mellitus Status: Chronic (13) Infected decubitus ulcer Status: Acute (14) Restless leg syndrome Status: Chronic (15) Hyperlipidemia Status: Chronic Qualifiers: (16) COPD (chronic obstructive pulmonary disease) Status: Chronic (17) Hypertension Status: Chronic Qualifiers: (18) CAD (coronary artery disease) Status: Chronic History of Present Illness Date of Admission: 02/02/18 Chief Complaint: Here for rehabilitation, strengthening, wound care, intravenous antibiotics, prior to disposition determination. The patient is a 67 year old Male with below past medical history TCU resident with non-healing stage 4 sacral pressure ulcer. 01/22/2018 Dr. Juarez performed excision sacral pressure ulcer, stage 4, with partial ostectomy for osteomyelitis, wound VAC applied. 01/22/2018 Dr. Arias performed laparoscopic diverting end sigmoid colostomy. Wound culture grew VRE, serratia, Dr. Wilkerson recommend IV antibiotics x 6 weeks. He is on oral diet, PEG tube not used. Hold SSRI, Tramadol while on Zyvox due to risk of serotonin syndrome. 02/02/2018 Admit to TCU with debility, here for rehabilitation, strengthening, wound care, intravenous antibiotics, prior to disposition determination. Past Medical History Past Medical History (Chronic Problems): Chronic Problems (Last Reviewed 01/15/18 @ 18:40 by Darnell Fleix DO) Hemiplegia affecting right dominant side (Chronic) 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, stage 4 (Chronic) Fall (Chronic) Traumatic brain injury (Chronic) Intraparenchymal hemorrhage of brain (Chronic) Subarachnoid hemorrhage (Chronic) Subdural hematoma (Chronic) Intraventricular hemorrhage (Chronic) Right scapula fracture (Chronic) Tobacco abuse (Chronic) Dysphagia (Chronic) Insomnia (Chronic) Vitamin D deficiency (Chronic) Depression (Chronic) GERD (gastroesophageal reflux disease) (Chronic) BPH (benign prostatic hyperplasia) (Chronic) Right hemiplegia (Chronic) Congestive heart failure (Chronic) Alcohol abuse (Chronic) Sleep apnea (Chronic) Diabetes mellitus (Chronic) Encounter for long-term current use of high risk medication (Chronic) Obstructive sleep apnea (Chronic) 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) S/P CABG x3 with right radial to LAD, SVG to RCA, and SVG to OM 2; stenting to LAD in February 2017; Presence of coronary angioplasty implant and graft (Chronic) Presence of aortocoronary bypass graft (Chronic) CABG X 3 2002 ?, Radial artery -LAD, SVG-RCA, SVG-OM2 Non-ST elevation myocardial infarction (NSTEMI), initial care episode (Chronic) 02/16/17 Ischemic cardiomyopathy (Chronic) Restless leg syndrome (Chronic) Hyperlipidemia (Chronic) Hypertensive emergency (Chronic) COPD (chronic obstructive pulmonary disease) (Chronic) Hypertension (Chronic) Morbid obesity (Chronic) CAD (coronary artery disease) (Chronic) Stented coronary artery (Chronic) [facility] w/MVO-BBS-Ordt LAD (grafts occluded X 3) 02/20/17 Former smoker (Chronic) quit February 2017 Diabetes mellitus type 2 in obese (Chronic) Hx of CABG (Chronic) CABG X3 rADIAL ARTERY-lad, svg-rca, svg-om2. 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) I25.810 S/P CABG x3 with right radial to LAD, SVG to RCA, and SVG to OM 2; stenting to LAD in February 2017; Non-ST elevation myocardial infarction (NSTEMI), initial care episode (Chronic) I21.4 02/16/17 Ischemic cardiomyopathy (Chronic) I25.5 FUO (fever of unknown origin) (Acute) Restless leg syndrome (Chronic) Hyperlipidemia (Chronic) E78.5 Hypertensive emergency (Chronic) I16.1 Demand ischemia (Resolved) I24.8 COPD (chronic obstructive pulmonary disease) (Chronic) J44.9 Hypertension (Chronic) I10 Morbid obesity (Chronic) E66.01 Systolic CHF, acute (Acute) I50.21 CAD (coronary artery disease) (Chronic) I25.10 Stented coronary artery (Chronic) [facility] w/CGY-ICP-Brkj LAD (grafts occluded X 3) 02/20/17 Former smoker (Chronic) Z87.891 quit February 2017 Diabetes mellitus type 2 in obese (Chronic) E11.69, E66.9 PEG (percutaneous endoscopic gastrostomy) adjustment/replacement/removal Z43.1 Nicotine dependence F17.200 Allergies atorvastatin Allergy (Verified 01/21/18 15:52) Hives cilostazol Allergy (Verified 01/21/18 15:52) Hives colestipol Allergy (Verified 01/21/18 15:52) Hives diltiazem Allergy (Verified 01/21/18 15:52) Hives gemfibrozil Allergy (Verified 01/21/18 15:52) Hives naproxen [From Naprosyn] Allergy (Verified 01/21/18 15:52) Hives niacin Allergy (Verified 01/21/18 15:52) Hives Penicillins Allergy (Verified 01/21/18 15:52) Hives pravastatin Allergy (Verified 01/21/18 15:52) Hives procaine [From Novocain] Allergy (Verified 01/21/18 15:52) Hives rosuvastatin Allergy (Verified 01/21/18 15:52) Hives simvastatin Allergy (Verified 01/21/18 15:52) Hives isosorbide Adverse Reaction (Severe, Verified 01/21/18 15:52) Unknown Home Medications: Ambulatory Orders Medication Instructions Recorded Acetaminophen [Tylenol] 650 mg PO Q6H PRN PRN 01/16/18 Budesonide Aerosol [Pulmicort 0.5 mg INHALATION BID 01/16/18 Respules] Insulin Glargine [Lantus SoloStar 15 units SQ BID 01/16/18 Pen] Insulin Lispro [Humalog Benjie 7 unit SQ TIDCM 01/16/18 Kwikpen] Ipratropium/Albuterol Sulfate 3 ml INHALATION Q2H PRN PRN 01/16/18 [Duoneb] Metoprolol Tartrate 150 mg PO TID 01/16/18 Nitroglycerin [Nitrostat] 0.4 mg SUBLINGUAL Q5M PRN 01/16/18 Polyethylene Glycol 3350 [Miralax] 17 gm PO DAILY 01/16/18 Pravastatin [Pravachol] 80 mg PO QHS 01/16/18 Tamsulosin HCl [Flomax] 0.4 mg PO QHS 01/16/18 Zolpidem Tartrate [Ambien] 5 mg PO QHS PRN PRN 01/16/18 Argin/Glut/Cahmb/Collag/Mv-Min 1 each PO BIDCM 01/22/18 [[place] Packet] Magnesium Oxide [Mag-Ox 400] 400 mg PO TIDCM 01/22/18 Pantoprazole Sodium [Protonix] 40 mg PO DAILY 01/22/18 Piperacil/Tazobactam [Zosyn] 3.375 gm IV Q8 01/22/18 Pramipexole Di-HCl [Mirapex] 0.25 mg PO QHS 01/22/18 Amantadine [Symmetrel] 100 mg PO DAILY 02/02/18 Ascorbic Acid [Vitamin C] 1,000 mg PO DAILY@0800 02/02/18 Budesonide Aerosol [Pulmicort 0.5 mg INHALATION BID.RT 02/02/18 Respules] Diazepam [Valium] 2 mg PO 4X/DAY PRN PRN #30 tab 02/02/18 Furosemide [Lasix] 40 mg PO BIDLX 02/02/18 Heparin Sodium,Porcine/Pf [Heparin 500 unit IV UD PRN syringe 02/02/18 500 Unit/5 ml (100/ml)] Insulin Glargine [Lantus SoloStar 15 units SC BID 02/02/18 Pen] Insulin Lispro [Humalog KwikPen] See Protocol SC ACHS 02/02/18 Iron Polysaccharide Complex 150 mg PO DAILY 02/02/18 [Ferrex 150] Lactobacillus Acidophilus 1 tablet PO BID 02/02/18 [Acidophilus] Lansoprazole [Prevacid] 30 mg PO DAILY 02/02/18 Linezolid [Zyvox] 600 mg PO BID 02/02/18 Magnesium Oxide [Mag-Ox 400] 400 mg PO TIDCM 02/02/18 Metoprolol Tartrate [Lopressor 150 mg PO TID 02/02/18 (beta stepan)] Nutritional Supplement [[place] - 1 packet PO BIDCM 02/02/18 ORANGE FLAVOR] Ondansetron [Zofran] 4 mg IV Q6H PRN PRN vial 02/02/18 Oxycodone [Oxyir] 5 mg PO 4X/DAY PRN PRN 7 Days #30 02/02/18 tab Oxycodone [Oxyir] 5 mg PO Q6H PRN PRN 7 Days #30 02/02/18 tablet Piperacil/Tazobactam [Zosyn] 3.375 gm IV Q8 02/02/18 Potassium Cloride Effervescent 50 meq PO BIDCM 02/02/18 [Potassium Chl 25 Meq Eff (For Liquid)] Pramipexole Di-HCl [Mirapex] 0.25 mg PO QHS 02/02/18 Smz/Tmp Ds [Bactrim Ds] 1 tablet PO BIDCM 02/02/18 traMADol [Ultram] 50 mg PO TID PRN PRN 7 Days #20 tab 02/02/18 Surgical History: Surgical History (Last Reviewed 01/15/18 @ 18:40 by Darnell Felix DO) Presence of coronary angioplasty implant and graft (Chronic) Z95.5 Presence of aortocoronary bypass graft (Chronic) Z95.1 CABG X 3 2001 ?, Radial artery -LAD, SVG-RCA, SVG-OM2 Hx of CABG (Chronic) CABG X3 rADIAL ARTERY-lad, svg-rca, svg-om2. MULTIPLE CORONARY STENTS Surgical History: angioplasty, coronary bypass surgery - x 3., - - PEG tube, Diverting colostomy. Psychiatric History: Depression Lives: Long-Term Smoking Status: Former smoker Tobacco Use: Cigarettes Alcohol: Heavy Drugs: None - *Family History Maternal Family History: Family History (Last Reviewed 01/15/18 @ 18:40 by Darnell Felix DO) Brother Heart disease Father Heart disease History Items: No pertinent history, - - Alzheimer Paternal Family History: Family History (Last Reviewed 01/15/18 @ 18:40 by Darnell Felix DO) Brother Heart disease Father Heart disease History Items: No pertinent history Review of Systems Constitutional: Denies: Chills, Fever, Weight Change HEENT: Denies: Head Aches, Sinus Congestion, Sinus Drainage Cardiovascular: Denies: Chest Pain, Palpitations Respiratory: Denies: Cough, Shortness of breath at rest, Sputum production Gastrointestinal: Denies: Abdominal Pain, Nausea, Vomiting Genitourinary: Denies: Dysuria Musculoskeletal: Denies: Joint Pain, Joint Tenderness Skin: Denies: Rash, Wounds Neurological: Denies: Numbness, Tingling, Focal weakness Psychiatric: Denies: Anxiety, Depression, Homicidal Ideations, Suicidal Ideations Hematologic/ Lymphatic: Denies: Easy Bruising, Easy Bleeding VTE Information - Inpt Only VTE Present on Admission: No VTE Mechan Device Prophylaxis: Knee High OTILIA Hose VTE Pharm Prophylaxis ordered?: Yes - Physical Exam General: Alert, Oriented x3, Cooperative HEENT: Atraumatic, PERRLA, EOMI, Normocephalic Neck: Supple, No JVD, Negative Carotid Bruits Lungs: Clear to auscultation, Normal air movement Cardiovascular: Regular rate, No murmurs Abdomen: Bowel Sounds Present, Soft, Non Tender, - - PEG, colostomy, indwelling burks catheter. Extremities: No edema, Capillary Refill Less than 3 Seconds, - - LUE PICC line. Skin: No rashes, No breakdown Musculoskeletal: No Tenderness to Palpation of Joints or Extremities Neurological: Cranial nerves II-XII grossly intact Psych/Mental Status: Normal Affect, Appropriate Weight: 113.443 kg Body Mass Index (BMI) 33.0 Finger Stick Blood Glucose 250 Assessment/Plan All Active Problems (Last Updated 01/15/18 @ 18:40 by Darnell Felix DO) Malnutrition of moderate degree (Acute) Alcohol intoxication (Resolved) Acute respiratory failure (Acute) Aspiration pneumonia (Acute) Acute and chronic respiratory failure with hypoxia (Acute) Sepsis (Resolved) Healthcare associated bacteremia due to Staphylococcus aureus (Resolved) Infected decubitus ulcer (Acute) Infected decubitus ulcer (Acute) FUO (fever of unknown origin) (Acute) Demand ischemia (Resolved) Systolic CHF, acute (Acute) Acute respiratory failure with hypoxia and hypercarbia (Resolved) Multifocal community-acquired pneumonia (Resolved) Severe sepsis (Resolved) 67 year old male with below past medical history hospitalized for infected stage 4 sacral pressure ulcer, underwent debridement with wound VAC 01/22/[address] Juarez, diverting colostomy per Dr. Arias, admitted to TCU with debility, here for rehabilitation, strengthening, wound care, intravenous antibiotics, prior to disposition determination. Debility - PT/OT. Dysphagia - ST. Pain - Tylenol 1000MG Q8H PRN mild pain, Oxycodone 5MG Q6H PRN severe pain. Bowel - Miralax 17GM daily, Senna/colace 2 tablets BID, Dulcolax 10MG PO daily PRN. Pneumonia vaccination - Administer Prevnar 13 and/or Pneumovax 23 as necessary. DVT prophylaxis - Lovenox 40MG SC daily. TBI - Amantadine 100MG daily. Vitamin C deficiency - Vitamin C 1000MG daily. COPD - Pulmicort 0.5MG BID, Duoneb 3ML Q2H PRN. Anxiety - Diazepam 2MG 4x/day PRN. Edema - Lasix 40MG BID. Diabetes Mellitus II - Lantus 15 units BID. Iron deficiency anemia - Ferrex 150MG daily. C. Diff prophylaxis - Lactobacillus 1 tablet BID. GERD - Pantoprazole 40MG daily. Infected sacral pressure ulcer - Zyvox 600MG BID, Zosyn 3.375GM IV Q8H, Bactrim DS 1 tablet BID, stop date per Dr. Wilkerson. Wound VAC per wound care team, [place] 1 packet BID. Hypomagnesemia - Mag Oxide 400MG TID. Coronary Artery Disease - Metoprolol 150MG TID, NTG 0.4MG SL Q5M PRN. Nausea - Zofran 4MG IV Q6H PRN. Hypokalemia - KCL 50MEQ BID. Restless Leg syndrome - Mirapex 0.25MG QHS. Hyperlipidemia - Pravastatin 80Mg QHS. BPH - Tamsulosin 0.4MG QHS. Insomnia - Zolpidem 5MG QHS PRN.
[2018-02-02 23:38] VITALS: PULSE 100
[2018-02-02] MEDS: Pravastatin 80 MG Tablet PO (23:38)
[2018-02-02] MEDS: Linezolid 600 MG Tablet PO (23:38)
[2018-02-02] MEDS: Pramipexole Di-HCl 0.25 MG Tablet PO (23:38)
[2018-02-02] MEDS: Metoprolol Tartrate 50 MG Tablet 150 MG PO (23:38)
[2018-02-02] MEDS: Piperacil/Tazobactam 3.375 GM Q8 PREMIX IV (23:38)
[2018-02-02] MEDS: Tamsulosin HCl 0.4 MG Capsule PO (23:38)
[2018-02-02 23:39] VITALS: PULSE 100
[2018-02-03] MEDS: 0.9% NaCl PICC Flush IV ×4 (05:52→21:49)
[2018-02-03] MEDS: Piperacil/Tazobactam 3.375 GM Q8 PREMIX IV ×3 (05:56→21:50)
[2018-02-03] MEDS: 0.9% NaCl IVPB Med Flush (250 mL) 15 ML IV (05:56)
[2018-02-03 06:14] VITALS: BP 151/93; PULSE 98
[2018-02-03] MEDS: Amantadine 100 MG Capsule PO (06:14)
[2018-02-03] MEDS: Metoprolol Tartrate 50 MG Tablet 150 MG PO ×3 (06:14→21:50)
[2018-02-03] MEDS: Furosemide 40 MG Tablet PO ×2 (06:14→13:32)
[2018-02-03] MEDS: Pantoprazole Sodium 40 MG Tablet PO (06:14)
[2018-02-03] MEDS: Linezolid 600 MG Tablet PO ×2 (06:14→17:03)
[2018-02-03] MEDS: Enoxaparin 40 MG/0.4 ML Syringe SC (06:15)
[2018-02-03] MEDS: Iron Polysaccharide Complex 150 MG CAPSULE PO (06:16)
--- NOTE | 2018-02-03 06:38 | NURSING ---
Code status discussed with pt, pt wishes to be a full code
[2018-02-03 06:43] LABS: Anion Gap 9 (5-15); BUN 10 mg/dL (7-18); BUN/Creat Ratio 17.6 RATIO (10-20); Calcium,Total 8.9 mg/dL (8.5-10.1); Chloride 106 mmol/L (98-107); Creatinine, Serum 0.57 mg/dL (0.70-1.30); EST Glomerular Filtration Rate 152 mL/min (>60); Est Glom Filt Rate - Afr Amer 184 mL/min (>60); Estimated Creatinine Clearance 81.01 ml/min; Glucose 209 mg/dL (74-106); Potassium 3.3 mmol/L (3.5-5.1); Sodium Level 141 mmol/L (136-145)
[2018-02-03 06:44] LABS: Absolute Lymphocyte Count 1.68 X10^3/ul (0.83-4.51); Absolute Neutrophil Count 5.2 X10^3/uL (2.0-7.7); Basophil# 0.03 X10^3/uL; Basophil% 0.4 % (0-1); Eosinophil# 0.25 X10^3/uL; Eosinophils% 3.1 % (0-5); Hemoglobin 9.5 g/dl (13.0-16.5); Lymphocyte # 1.68 X10^3/ul (4.0); Lymphocyte % 21.2 % (19-41); Mean Corp Hgb Conc 30.6 g/gl (32-36); Mean Corpuscular Hgb 29.1 pg (27.0-32.0); Mean Corpuscular Volume 95.1 fL (80-94); Mean Platelet Vol. 9.9 fl (6.2-12.0); Monocyte# 0.77 X10^3/uL; Monocyte% 9.7 % (0-10); Neutrophil % 65.5 % (47-70); Platelet Count 340 K/mm3 (150-450); RBC Distribution Width CV 15.2 % (11.6-14.6); RBC Distribution Width SD 51.9 fl (35.1-43.9); Red Blood Count 3.26 M/mm3 (4.6-6.2); White Blood Count 7.9 K/mm3 (4.4-11.0)
[2018-02-03 06:47] LABS: POSITIVE COUNT NO; POSITIVE DIFFERENTIAL NO; POSITIVE MORPHOLOGY NO
[2018-02-03 07:06] LABS: Bedside Glucose 199 mg/dL (70-110)
[2018-02-03 07:31] VITALS: PULSE 82; RESP 18; O2SAT 96
[2018-02-03] MEDS: Budesonide Respules 0.5 MG/2 ML AMPUL.NEB. INHALATION ×2 (07:31→19:08)
[2018-02-03] MEDS: Ascorbic Acid 500 MG Tablet 1000 MG PO (09:02)
[2018-02-03] MEDS: Magnesium Oxide 400 MG Tablet PO ×3 (09:03→17:01)
[2018-02-03] MEDS: Smz/Tmp Ds Tablet 1 TABLET PO ×2 (09:03→17:02)
[2018-02-03] MEDS: oxyCODONE 5 MG Tablet PO (12:26)
[2018-02-03 13:32] VITALS: BP 132/74; PULSE 105
--- NOTE | 2018-02-03 15:45 | NURSING ---
wound photo: sacrum
[2018-02-03 16:00] VITALS: BP 152/85; PULSE 84; RESP 18; TEMP 36.6; O2SAT 97
[2018-02-03] MEDS: Senna/Docusate Sodium 1 Tablet 2 TABLET PO (17:03)
[2018-02-03 17:05] LABS: Bedside Glucose 307 mg/dL (70-110)
[2018-02-03 19:25] VITALS: PULSE 97; RESP 18
[2018-02-03 21:50] VITALS: PULSE 102
[2018-02-03] MEDS: Pravastatin 80 MG Tablet PO (21:50)
[2018-02-03] MEDS: Tamsulosin HCl 0.4 MG Capsule PO (21:50)
[2018-02-03] MEDS: Pramipexole Di-HCl 0.25 MG Tablet PO (21:50)
[2018-02-04] VITALS (7 sets, daily range): BP systolic 117–137; BP diastolic 70–77; PULSE 80–112; RESP 17–18; TEMP 35.6; O2SAT 97
--- NOTE | 2018-02-04 00:32 | NURSING ---
Pt remains in contact isolation
[2018-02-04] MEDS: Piperacil/Tazobactam 3.375 GM Q8 PREMIX IV ×3 (05:07→21:17)
[2018-02-04] MEDS: 0.9% NaCl IVPB Med Flush (250 mL) 15 ML IV (05:07)
[2018-02-04] MEDS: 0.9% NaCl PICC Flush IV ×3 (05:07→21:22)
[2018-02-04] MEDS: Iron Polysaccharide Complex 150 MG CAPSULE PO (05:30)
[2018-02-04] MEDS: Linezolid 600 MG Tablet PO ×2 (05:30→17:24)
[2018-02-04] MEDS: Metoprolol Tartrate 50 MG Tablet 150 MG PO ×3 (05:30→21:16)
[2018-02-04] MEDS: Amantadine 100 MG Capsule PO (05:30)
[2018-02-04] MEDS: Furosemide 40 MG Tablet PO ×2 (05:30→14:21)
[2018-02-04] MEDS: Pantoprazole Sodium 40 MG Tablet PO (05:30)
[2018-02-04] MEDS: Enoxaparin 40 MG/0.4 ML Syringe SC (05:30)
[2018-02-04 05:44] LABS: Anion Gap 9 (5-15); BUN 12 mg/dL (7-18); BUN/Creat Ratio 19.4 RATIO (10-20); Calcium,Total 9.1 mg/dL (8.5-10.1); Chloride 104 mmol/L (98-107); Creatinine, Serum 0.62 mg/dL (0.70-1.30); EST Glomerular Filtration Rate 138 mL/min (>60); Est Glom Filt Rate - Afr Amer 166 mL/min (>60); Estimated Creatinine Clearance 81.01 ml/min; Glucose 208 mg/dL (74-106); Potassium 3.9 mmol/L (3.5-5.1); Sodium Level 141 mmol/L (136-145)
[2018-02-04 07:00] LABS: Bedside Glucose 263 mg/dL (70-110)
[2018-02-04] MEDS: Magnesium Oxide 400 MG Tablet PO ×3 (09:07→17:23)
[2018-02-04] MEDS: Smz/Tmp Ds Tablet 1 TABLET PO ×2 (09:07→17:22)
[2018-02-04] MEDS: Ascorbic Acid 500 MG Tablet 1000 MG PO (09:08)
[2018-02-04] MEDS: Insulin Lispro 100 UNIT/ML INSULN.PEN 7 UNIT SC ×3 (09:12→17:22)
[2018-02-04] MEDS: oxyCODONE 5 MG Tablet PO ×2 (09:23→21:17)
--- NOTE | 2018-02-04 11:10 | PCM.PN.RX ---
<JenniferernestoregisSid D - Last Filed: 02/04/18 11:10> Progress Note - Pharmacy Subjective: [] Objective: Allergies atorvastatin Allergy (Verified 01/21/18 15:52) Hives cilostazol Allergy (Verified 01/21/18 15:52) Hives colestipol Allergy (Verified 01/21/18 15:52) Hives diltiazem Allergy (Verified 01/21/18 15:52) Hives gemfibrozil Allergy (Verified 01/21/18 15:52) Hives naproxen [From Naprosyn] Allergy (Verified 01/21/18 15:52) Hives niacin Allergy (Verified 01/21/18 15:52) Hives Penicillins Allergy (Verified 01/21/18 15:52) Hives pravastatin Allergy (Verified 01/21/18 15:52) Hives procaine [From Novocain] Allergy (Verified 01/21/18 15:52) Hives rosuvastatin Allergy (Verified 01/21/18 15:52) Hives simvastatin Allergy (Verified 01/21/18 15:52) Hives isosorbide Adverse Reaction (Severe, Verified 01/21/18 15:52) Unknown Current Medications Generic Name Dose Route Start Last Admin Trade Name Freq PRN Reason Stop Dose Admin Acetaminophen 1,000 mg 02/02/18 20:57 Tylenol PO Q8H PRN PRN MILD PAIN (1-3/10) Albuterol/Ipratropium 3 ml 02/02/18 18:40 Duoneb INHALATION Q2H PRN PRN SHORTNESS OF BREATH Amantadine HCl 100 mg 02/03/18 06:00 02/04/18 05:30 Symmetrel PO 100 mg DAILY BULL Administration Ascorbic Acid 1,000 mg 02/03/18 08:00 02/04/18 09:08 Vitamin C PO 1,000 mg DAILY@0800 BULL Administration Bisacodyl 10 mg 02/02/18 20:57 Dulcolax PO DAILY PRN Constipation Budesonide 0.5 mg 02/03/18 06:00 02/04/18 07:59 Pulmicort Aerosol INHALATION Not Given BID.RT BULL Diazepam 2 mg 02/02/18 18:40 Valium PO 4X/DAY PRN PRN SPASMS Enoxaparin Sodium 40 mg 02/03/18 06:00 02/04/18 05:30 Lovenox SC 40 mg DAILY@0600 BULL Administration Furosemide 40 mg 02/03/18 06:00 02/04/18 05:30 Lasix PO 40 mg BIDLX BULL Administration Heparin Sodium (Beef Lung) 500 unit 02/03/18 02:45 Heparin 500 Unit/5 Ml (100/Ml) IV UD PRN HEPARIN FLUSH Piperacillin Sod/Tazobactam Sod 3.375 gm in 50 mls @ 12.5 mls/hr 02/02/18 22:00 02/04/18 05:07 Zosyn IV 12.5 mls/hr Q8 BULL Administration Sodium Chloride 250 mls @ 15 mls/hr 02/03/18 02:45 02/04/18 05:07 IV 15 mls/hr .[id number] PRN Administration SALINE FLUSH Insulin Glargine 10 units 02/04/18 18:00 Lantus ([facility]) SC BID BULL Insulin Human Lispro 7 unit 02/04/18 11:45 02/04/18 09:12 Humalog Kwikpen ([facility]) SC 7 units TIDAC [facility] Administration Lactobacillus Acidophilus 1 tablet 02/03/18 06:00 02/04/18 05:30 Acidophilus PO 1 tablet BID [facility] Administration Linezolid 600 mg 02/02/18 19:30 02/04/18 05:30 Zyvox PO 600 mg BID BULL Administration Magnesium Oxide 400 mg 02/03/18 07:45 02/04/18 09:07 Mag-Ox 400 PO 400 mg TIDCM [facility] Administration Metoprolol Tartrate 150 mg 02/02/18 22:00 02/04/18 05:30 Lopressor (Beta Devante) PO 150 mg TID [facility] Administration Multi-Ingredient Cream 1 applic 02/03/18 22:00 02/04/18 05:06 Eucerin TOPICAL 1 applicatio 0600,2200 [facility] Administration Protocol Nitroglycerin 0.4 mg 02/02/18 18:40 Nitrostat SUBLINGUAL Q5M PRN Chest Pain Nutritional Formula 1 packet 02/03/18 08:00 02/04/18 09:07 [place] Flavor PO 1 packet BIDCM [facility] Administration Ondansetron HCl 4 mg 02/02/18 18:40 Zofran IV Q6H PRN PRN NAUSEA Oxycodone HCl 5 mg 02/02/18 18:40 02/04/18 09:23 Oxyir PO 5 mg Q6H PRN PRN Administration SEVERE PAIN (6-10/10) Pantoprazole Sodium 40 mg 02/03/18 06:00 02/04/18 05:30 Protonix PO 40 mg DAILY BULL Administration Polyethylene Glycol 17 gm 02/03/18 06:00 02/04/18 05:06 Miralax PO Not Given DAILY [facility] Polysaccharide Iron Complex 150 mg 02/03/18 06:00 02/04/18 05:30 Ferrex 150 PO 150 mg DAILY [facility] Administration Potassium Bicarb/Potassium Chloride 50 meq 02/03/18 08:00 02/04/18 09:08 Potassium Chl 25 Meq Eff (For Liquid) PO 50 meq BIDCM [facility] Administration Pramipexole Dihydrochloride 0.25 mg 02/02/18 22:00 02/03/18 21:50 Mirapex PO 0.25 mg QHS BULL Administration Pravastatin Sodium 80 mg 02/02/18 22:00 02/03/18 21:50 Pravachol PO 80 mg QHS [facility] Administration Senna/Docusate Sodium 2 tablet 02/03/18 06:00 02/04/18 05:06 Senokot-S, Page-Colace PO Not Given BID [facility] Sodium Chloride 10 - 20 ml 02/03/18 02:45 02/04/18 05:07 IV 20 ml UD PRN Administration PICC FLUSH Tamsulosin HCl 0.4 mg 02/02/18 22:00 02/03/18 21:50 Flomax PO 0.4 mg QHS [facility] Administration Trimethoprim/Sulfamethoxazole 1 tablet 02/03/18 08:00 02/04/18 09:07 Bactrim Ds PO 1 tablet BIDCM [facility] Administration Zolpidem Tartrate 5 mg 02/02/18 18:40 Ambien (Generic) PO QHS PRN PRN SLEEP Vital Signs Temp Pulse Resp BP Pulse Ox 97.9 F 112 H 18 152/85 H 97 02/03/18 16:00 02/04/18 05:30 02/03/18 19:25 02/03/18 16:00 02/03/18 16:00 Oxygen Delivery Method Room Air Weight: 106.367 kg Body Mass Index (BMI) 33.0 Finger Stick Blood Glucose 250 Sodium 141 mmol/L (136-145) 02/04/18 05:15 Potassium 3.9 mmol/L (3.5-5.1) 02/04/18 05:15 Chloride 104 mmol/L (98-107) 02/04/18 05:15 Carbon Dioxide 28.0 mmol/L (21.0-32.0) 02/04/18 05:15 Anion Gap 9 (5-15) 02/04/18 05:15 BUN 12 mg/dL (7-18) 02/04/18 05:15 Creatinine 0.62 mg/dL (0.70-1.30) L 02/04/18 05:15 Est GFR (MDRD) Af Amer 166 mL/min (>60) 02/04/18 05:15 Est GFR (MDRD) Non-Af 138 mL/min (>60) 02/04/18 05:15 BUN/Creatinine Ratio 19.4 RATIO (10-20) 02/04/18 05:15 Glucose 208 mg/dL (74-106) H 02/04/18 05:15 Assessment/Plan: 1) Pain APAP for mild pain, oxycodone for severe pain, diazepam for spasms. Continue to monitor daily pain scores, prn medication use. 2) HTN/CAD Metoprolol, prn ntg, pravastatin, ASA. Continue to monitor BP/HR, renal function, electrolytes, lipids, s/s chest pain. 3) DM2 Insulin glargine, lispro with meals. Continue to monitor BGT, s/s hyper/hypoglycemia. 4) Pulm Budesonide, Duoneb aerosols prn. Continue to monitor prn medication use, for shortness of breath. 5) TBI Amantadine. Continue to monitor clinically. 6) Edema Furosemide/KCl. Continue to monitor swelling, electrolytes, renal function. 7) BPH Tamsulosin at HS. Continue to monitor s/s BPH. 8) RLS Pramipexole at HS. Continue to monitor for symptoms. 9) GI Pantoprazole daily, lactobacillus, ondansetron prn. Continue to monitor prn medication use, s/s GI distress. 10) Nutrition [place], MgOx, Fe, C. Continue to monitor electrolytes. 11) DVT PPx Enoxaparin daily. Continue to monitor s/s bleeding/clot. 12) ID Linezolid, pip/tazo, smx/tmp. ID following. Continue to monitor renal function, electrolytes, s/s infection. Psychotropic Medications: 13) Insomnia Zolpidem at HS prn. Continue to monitor prn medication use, for insomnia. Unnecessary Medications: None Bowel Regimen: 14) PEG daily, senna/s, prn bisacodyl. Continue to monitor Date of Note:: 02/04/18 - Provider Comments Provider responsibility: Provider responsible to enter orders to implement recommendations <Pierre Luis Chi - Last Filed: 02/04/18 18:23> Progress Note - Pharmacy Subjective: [] Objective: Allergies atorvastatin Allergy (Verified 01/21/18 15:52) Hives cilostazol Allergy (Verified 01/21/18 15:52) Hives colestipol Allergy (Verified 01/21/18 15:52) Hives diltiazem Allergy (Verified 01/21/18 15:52) Hives gemfibrozil Allergy (Verified 01/21/18 15:52) Hives naproxen [From Naprosyn] Allergy (Verified 01/21/18 15:52) Hives niacin Allergy (Verified 01/21/18 15:52) Hives Penicillins Allergy (Verified 01/21/18 15:52) Hives pravastatin Allergy (Verified 01/21/18 15:52) Hives procaine [From Novocain] Allergy (Verified 01/21/18 15:52) Hives rosuvastatin Allergy (Verified 01/21/18 15:52) Hives simvastatin Allergy (Verified 01/21/18 15:52) Hives isosorbide Adverse Reaction (Severe, Verified 01/21/18 15:52) Unknown Current Medications Generic Name Dose Route Start Last Admin Trade Name Freq PRN Reason Stop Dose Admin Acetaminophen 1,000 mg 02/02/18 20:57 Tylenol PO Q8H PRN PRN MILD PAIN (1-3/10) Albuterol/Ipratropium 3 ml 02/02/18 18:40 Duoneb INHALATION Q2H PRN PRN SHORTNESS OF BREATH Amantadine HCl 100 mg 02/03/18 06:00 02/04/18 05:30 Symmetrel PO 100 mg DAILY BULL Administration Ascorbic Acid 1,000 mg 02/03/18 08:00 02/04/18 09:08 Vitamin C PO 1,000 mg DAILY@0800 BULL Administration Bisacodyl 10 mg 02/02/18 20:57 Dulcolax PO DAILY PRN Constipation Budesonide 0.5 mg 02/03/18 06:00 02/04/18 07:59 Pulmicort Aerosol INHALATION Not Given BID.RT BULL Diazepam 2 mg 02/02/18 18:40 Valium PO 4X/DAY PRN PRN SPASMS Enoxaparin Sodium 40 mg 02/03/18 06:00 02/04/18 05:30 Lovenox SC 40 mg DAILY@0600 BULL Administration Furosemide 40 mg 02/03/18 06:00 02/04/18 14:21 Lasix PO 40 mg BIDLX BULL Administration Heparin Sodium (Beef Lung) 500 unit 02/03/18 02:45 Heparin 500 Unit/5 Ml (100/Ml) IV UD PRN HEPARIN FLUSH Piperacillin Sod/Tazobactam Sod 3.375 gm in 50 mls @ 12.5 mls/hr 02/02/18 22:00 02/04/18 14:21 Zosyn IV 12.5 mls/hr Q8 BULL Administration Sodium Chloride 250 mls @ 15 mls/hr 02/03/18 02:45 02/04/18 05:07 IV 15 mls/hr .[id number] PRN Administration SALINE FLUSH Insulin Glargine 10 units 02/04/18 18:00 02/04/18 17:24 Lantus ([facility]) SC 10 u BID BULL Administration Insulin Human Lispro 7 unit 02/04/18 11:45 02/04/18 17:22 Humalog Kwikpen ([facility]) SC 7 units TIDAC [facility] Administration Lactobacillus Acidophilus 1 tablet 02/03/18 06:00 02/04/18 17:24 Acidophilus PO 1 tablet BID BULL Administration Linezolid 600 mg 02/02/18 19:30 02/04/18 17:24 Zyvox PO 600 mg BID BULL Administration Magnesium Oxide 400 mg 02/03/18 07:45 02/04/18 17:23 Mag-Ox 400 PO 400 mg TIDCM BULL Administration Metoprolol Tartrate 150 mg 02/02/18 22:00 02/04/18 14:22 Lopressor (Beta [facility]) PO 150 mg TID [facility] Administration Multi-Ingredient Cream 1 applic 02/03/18 22:00 02/04/18 05:06 Eucerin TOPICAL 1 applicatio 0600,2200 [facility] Administration Protocol Nitroglycerin 0.4 mg 02/02/18 18:40 Nitrostat SUBLINGUAL Q5M PRN Chest Pain Nutritional Formula 1 packet 02/03/18 08:00 02/04/18 17:22 [place] Flavor PO 1 packet BIDCM [facility] Administration Ondansetron HCl 4 mg 02/02/18 18:40 Zofran IV Q6H PRN PRN NAUSEA Oxycodone HCl 5 mg 02/02/18 18:40 02/04/18 09:23 Oxyir PO 5 mg Q6H PRN PRN Administration SEVERE PAIN (6-10/10) Pantoprazole Sodium 40 mg 02/03/18 06:00 02/04/18 05:30 Protonix PO 40 mg DAILY [facility] Administration Polyethylene Glycol 17 gm 02/03/18 06:00 02/04/18 05:06 Miralax PO Not Given DAILY [facility] Polysaccharide Iron Complex 150 mg 02/03/18 06:00 02/04/18 05:30 Ferrex 150 PO 150 mg DAILY [facility] Administration Potassium Bicarb/Potassium Chloride 50 meq 02/03/18 08:00 02/04/18 17:23 Potassium Chl 25 Meq Eff (For Liquid) PO 50 meq BIDCM [facility] Administration Pramipexole Dihydrochloride 0.25 mg 02/02/18 22:00 02/03/18 21:50 Mirapex PO 0.25 mg QHS [facility] Administration Pravastatin Sodium 80 mg 02/02/18 22:00 02/03/18 21:50 Pravachol PO 80 mg QHS [facility] Administration Senna/Docusate Sodium 2 tablet 02/03/18 06:00 02/04/18 17:24 Senokot-S, Page-Colace PO 2 tablet BID [facility] Administration Sodium Chloride 10 - 20 ml 02/03/18 02:45 02/04/18 14:22 IV 20 ml UD PRN Administration PICC FLUSH Tamsulosin HCl 0.4 mg 02/02/18 22:00 02/03/18 21:50 Flomax PO 0.4 mg QHS [facility] Administration Trimethoprim/Sulfamethoxazole 1 tablet 02/03/18 08:00 02/04/18 17:22 Bactrim Ds PO 1 tablet BIDCM BULL Administration Zolpidem Tartrate 5 mg 02/02/18 18:40 Ambien (Generic) PO QHS PRN PRN SLEEP Vital Signs Temp Pulse Resp BP Pulse Ox 96.0 F L 80 18 137/77 H 97 02/04/18 15:44 02/04/18 15:44 02/04/18 15:44 02/04/18 15:44 02/04/18 15:44 Oxygen Delivery Method Room Air Weight: 106.367 kg Body Mass Index (BMI) 33.0 Finger Stick Blood Glucose 250 Sodium 141 mmol/L (136-145) 02/04/18 05:15 Potassium 3.9 mmol/L (3.5-5.1) 02/04/18 05:15 Chloride 104 mmol/L (98-107) 02/04/18 05:15 Carbon Dioxide 28.0 mmol/L (21.0-32.0) 02/04/18 05:15 Anion Gap 9 (5-15) 02/04/18 05:15 BUN 12 mg/dL (7-18) 02/04/18 05:15 Creatinine 0.62 mg/dL (0.70-1.30) L 02/04/18 05:15 Est GFR (MDRD) Af Amer 166 mL/min (>60) 02/04/18 05:15 Est GFR (MDRD) Non-Af 138 mL/min (>60) 02/04/18 05:15 BUN/Creatinine Ratio 19.4 RATIO (10-20) 02/04/18 05:15 Glucose 208 mg/dL (74-106) H 02/04/18 05:15 Assessment/Plan: Psychotropic Medications: Unnecessary Medications: Bowel Regimen: - Provider Comments Provider responsibility: Provider responsible to enter orders to implement recommendations Provider Comments to Recommendations by Pharmacy: Agree
--- NOTE | 2018-02-04 11:16 | PHA.CONS_ITS ---
<JenniferernestoreigsSid D - Last Filed: 02/04/18 11:10> Progress Note - Pharmacy Subjective: [] Objective: Allergies atorvastatin Allergy (Verified 01/21/18 15:52) Hives cilostazol Allergy (Verified 01/21/18 15:52) Hives colestipol Allergy (Verified 01/21/18 15:52) Hives diltiazem Allergy (Verified 01/21/18 15:52) Hives gemfibrozil Allergy (Verified 01/21/18 15:52) Hives naproxen [From Naprosyn] Allergy (Verified 01/21/18 15:52) Hives niacin Allergy (Verified 01/21/18 15:52) Hives Penicillins Allergy (Verified 01/21/18 15:52) Hives pravastatin Allergy (Verified 01/21/18 15:52) Hives procaine [From Novocain] Allergy (Verified 01/21/18 15:52) Hives rosuvastatin Allergy (Verified 01/21/18 15:52) Hives simvastatin Allergy (Verified 01/21/18 15:52) Hives isosorbide Adverse Reaction (Severe, Verified 01/21/18 15:52) Unknown Current Medications Generic Name Dose Route Start Last Admin Trade Name Freq PRN Reason Stop Dose Admin Acetaminophen 1,000 mg 02/02/18 20:57 Tylenol PO Q8H PRN PRN MILD PAIN (1-3/10) Albuterol/Ipratropium 3 ml 02/02/18 18:40 Duoneb INHALATION Q2H PRN PRN SHORTNESS OF BREATH Amantadine HCl 100 mg 02/03/18 06:00 02/04/18 05:30 Symmetrel PO 100 mg DAILY BULL Administration Ascorbic Acid 1,000 mg 02/03/18 08:00 02/04/18 09:08 Vitamin C PO 1,000 mg DAILY@0800 BULL Administration Bisacodyl 10 mg 02/02/18 20:57 Dulcolax PO DAILY PRN Constipation Budesonide 0.5 mg 02/03/18 06:00 02/04/18 07:59 Pulmicort Aerosol INHALATION Not Given BID.RT BULL Diazepam 2 mg 02/02/18 18:40 Valium PO 4X/DAY PRN PRN SPASMS Enoxaparin Sodium 40 mg 02/03/18 06:00 02/04/18 05:30 Lovenox SC 40 mg DAILY@0600 BULL Administration Furosemide 40 mg 02/03/18 06:00 02/04/18 05:30 Lasix PO 40 mg BIDLX BULL Administration Heparin Sodium (Beef Lung) 500 unit 02/03/18 02:45 Heparin 500 Unit/5 Ml (100/Ml) IV UD PRN HEPARIN FLUSH Piperacillin Sod/Tazobactam Sod 3.375 gm in 50 mls @ 12.5 mls/hr 02/02/18 22: 00 02/04/18 05:07 Zosyn IV 12.5 mls/hr Q8 BULL Administration Sodium Chloride 250 mls @ 15 mls/hr 02/03/18 02:45 02/04/18 05:07 IV 15 mls/hr .[id number] PRN Administration SALINE FLUSH Insulin Glargine 10 units 02/04/18 18:00 Lantus ([facility]) SC BID BULL Insulin Human Lispro 7 unit 02/04/18 11:45 02/04/18 09:12 Humalog Kwikpen ([facility]) SC 7 units TIDAC [facility] Administration Lactobacillus Acidophilus 1 tablet 02/03/18 06:00 02/04/18 05:30 Acidophilus PO 1 tablet BID [facility] Administration Linezolid 600 mg 02/02/18 19:30 02/04/18 05:30 Zyvox PO 600 mg BID BULL Administration Magnesium Oxide 400 mg 02/03/18 07:45 02/04/18 09:07 Mag-Ox 400 PO 400 mg TIDCM [facility] Administration Metoprolol Tartrate 150 mg 02/02/18 22:00 02/04/18 05:30 Lopressor (Beta Devante) PO 150 mg TID [facility] Administration Multi-Ingredient Cream 1 applic 02/03/18 22:00 02/04/18 05:06 Eucerin TOPICAL 1 applicatio 0600,2200 [facility] Administration Protocol Nitroglycerin 0.4 mg 02/02/18 18:40 Nitrostat SUBLINGUAL Q5M PRN Chest Pain Nutritional Formula 1 packet 02/03/18 08:00 02/04/18 09:07 [place] Flavor PO 1 packet BIDCM [facility] Administration Ondansetron HCl 4 mg 02/02/18 18:40 Zofran IV Q6H PRN PRN NAUSEA Oxycodone HCl 5 mg 02/02/18 18:40 02/04/18 09:23 Oxyir PO 5 mg Q6H PRN PRN Administration SEVERE PAIN (6-10/10) Pantoprazole Sodium 40 mg 02/03/18 06:00 02/04/18 05:30 Protonix PO 40 mg DAILY BULL Administration Polyethylene Glycol 17 gm 02/03/18 06:00 02/04/18 05:06 Miralax PO Not Given DAILY [facility] Polysaccharide Iron Complex 150 mg 02/03/18 06:00 02/04/18 05:30 Ferrex 150 PO 150 mg DAILY BULL Administration Potassium Bicarb/Potassium Chloride 50 meq 02/03/18 08:00 02/04/18 09:08 Potassium Chl 25 Meq Eff (For Liquid) PO 50 meq BIDCM [facility] Administration Pramipexole Dihydrochloride 0.25 mg 02/02/18 22:00 02/03/18 21:50 Mirapex PO 0.25 mg QHS BULL Administration Pravastatin Sodium 80 mg 02/02/18 22:00 02/03/18 21:50 Pravachol PO 80 mg QHS [facility] Administration Senna/Docusate Sodium 2 tablet 02/03/18 06:00 02/04/18 05:06 Senokot-S, Page-Colace PO Not Given BID [facility] Sodium Chloride 10 - 20 ml 02/03/18 02:45 02/04/18 05:07 IV 20 ml UD PRN Administration PICC FLUSH Tamsulosin HCl 0.4 mg 02/02/18 22:00 02/03/18 21:50 Flomax PO 0.4 mg QHS [facility] Administration Trimethoprim/Sulfamethoxazole 1 tablet 02/03/18 08:00 02/04/18 09:07 Bactrim Ds PO 1 tablet BIDCM [facility] Administration Zolpidem Tartrate 5 mg 02/02/18 18:40 Ambien (Generic) PO QHS PRN PRN SLEEP Vital Signs Temp Pulse Resp BP Pulse Ox 97.9 F 112 H 18 152/85 H 97 02/03/18 16:00 02/04/18 05:30 02/03/18 19:25 02/03/18 16:00 02/03/18 16:00 Oxygen Delivery Method Room Air Weight: 106.367 kg Body Mass Index (BMI) 33.0 Finger Stick Blood Glucose 250 Sodium 141 mmol/L (136-145) 02/04/18 05:15 Potassium 3.9 mmol/L (3.5-5.1) 02/04/18 05:15 Chloride 104 mmol/L (98-107) 02/04/18 05:15 Carbon Dioxide 28.0 mmol/L (21.0-32.0) 02/04/18 05:15 Anion Gap 9 (5-15) 02/04/18 05:15 BUN 12 mg/dL (7-18) 02/04/18 05:15 Creatinine 0.62 mg/dL (0.70-1.30) L 02/04/18 05:15 Est GFR (MDRD) Af Amer 166 mL/min (>60) 02/04/18 05:15 Est GFR (MDRD) Non-Af 138 mL/min (>60) 02/04/18 05:15 BUN/Creatinine Ratio 19.4 RATIO (10-20) 02/04/18 05:15 Glucose 208 mg/dL (74-106) H 02/04/18 05:15 Assessment/Plan: 1) Pain APAP for mild pain, oxycodone for severe pain, diazepam for spasms. Continue to monitor daily pain scores, prn medication use. 2) HTN/CAD Metoprolol, prn ntg, pravastatin, ASA. Continue to monitor BP/HR, renal function, electrolytes, lipids, s/s chest pain. 3) DM2 Insulin glargine, lispro with meals. Continue to monitor BGT, s/s hyper/ hypoglycemia. 4) Pulm Budesonide, Duoneb aerosols prn. Continue to monitor prn medication use, for shortness of breath. 5) TBI Amantadine. Continue to monitor clinically. 6) Edema Furosemide/KCl. Continue to monitor swelling, electrolytes, renal function. 7) BPH Tamsulosin at HS. Continue to monitor s/s BPH. 8) RLS Pramipexole at HS. Continue to monitor for symptoms. 9) GI Pantoprazole daily, lactobacillus, ondansetron prn. Continue to monitor prn medication use, s/s GI distress. 10) Nutrition [place], MgOx, Fe, C. Continue to monitor electrolytes. 11) DVT PPx Enoxaparin daily. Continue to monitor s/s bleeding/clot. 12) ID Linezolid, pip/tazo, smx/tmp. ID following. Continue to monitor renal function, electrolytes, s/s infection. Psychotropic Medications: 13) Insomnia Zolpidem at HS prn. Continue to monitor prn medication use, for insomnia. Unnecessary Medications: None Bowel Regimen: 14) PEG daily, senna/s, prn bisacodyl. Continue to monitor Date of Note:: 02/04/18 - Provider Comments Provider responsibility: Provider responsible to enter orders to implement recommendations <Pierre Luis Chi - Last Filed: 02/04/18 18:23> Progress Note - Pharmacy Subjective: [] Objective: Allergies atorvastatin Allergy (Verified 01/21/18 15:52) Hives cilostazol Allergy (Verified 01/21/18 15:52) Hives colestipol Allergy (Verified 01/21/18 15:52) Hives diltiazem Allergy (Verified 01/21/18 15:52) Hives gemfibrozil Allergy (Verified 01/21/18 15:52) Hives naproxen [From Naprosyn] Allergy (Verified 01/21/18 15:52) Hives niacin Allergy (Verified 01/21/18 15:52) Hives Penicillins Allergy (Verified 01/21/18 15:52) Hives pravastatin Allergy (Verified 01/21/18 15:52) Hives procaine [From Novocain] Allergy (Verified 01/21/18 15:52) Hives rosuvastatin Allergy (Verified 01/21/18 15:52) Hives simvastatin Allergy (Verified 01/21/18 15:52) Hives isosorbide Adverse Reaction (Severe, Verified 01/21/18 15:52) Unknown Current Medications Generic Name Dose Route Start Last Admin Trade Name Freq PRN Reason Stop Dose Admin Acetaminophen 1,000 mg 02/02/18 20:57 Tylenol PO Q8H PRN PRN MILD PAIN (1-3/10) Albuterol/Ipratropium 3 ml 02/02/18 18:40 Duoneb INHALATION Q2H PRN PRN SHORTNESS OF BREATH Amantadine HCl 100 mg 02/03/18 06:00 02/04/18 05:30 Symmetrel PO 100 mg DAILY BULL Administration Ascorbic Acid 1,000 mg 02/03/18 08:00 02/04/18 09:08 Vitamin C PO 1,000 mg DAILY@0800 BULL Administration Bisacodyl 10 mg 02/02/18 20:57 Dulcolax PO DAILY PRN Constipation Budesonide 0.5 mg 02/03/18 06:00 02/04/18 07:59 Pulmicort Aerosol INHALATION Not Given BID.RT BULL Diazepam 2 mg 02/02/18 18:40 Valium PO 4X/DAY PRN PRN SPASMS Enoxaparin Sodium 40 mg 02/03/18 06:00 02/04/18 05:30 Lovenox SC 40 mg DAILY@0600 BULL Administration Furosemide 40 mg 02/03/18 06:00 02/04/18 14:21 Lasix PO 40 mg BIDLX BULL Administration Heparin Sodium (Beef Lung) 500 unit 02/03/18 02:45 Heparin 500 Unit/5 Ml (100/Ml) IV UD PRN HEPARIN FLUSH Piperacillin Sod/Tazobactam Sod 3.375 gm in 50 mls @ 12.5 mls/hr 02/02/18 22: 00 02/04/18 14:21 Zosyn IV 12.5 mls/hr Q8 BULL Administration Sodium Chloride 250 mls @ 15 mls/hr 02/03/18 02:45 02/04/18 05:07 IV 15 mls/hr .[id number] PRN Administration SALINE FLUSH Insulin Glargine 10 units 02/04/18 18:00 02/04/18 17:24 Lantus ([facility]) SC 10 u BID BULL Administration Insulin Human Lispro 7 unit 02/04/18 11:45 02/04/18 17:22 Humalog Kwikpen ([facility]) SC 7 units TIDAC [facility] Administration Lactobacillus Acidophilus 1 tablet 02/03/18 06:00 02/04/18 17:24 Acidophilus PO 1 tablet BID BULL Administration Linezolid 600 mg 02/02/18 19:30 02/04/18 17:24 Zyvox PO 600 mg BID BULL Administration Magnesium Oxide 400 mg 02/03/18 07:45 02/04/18 17:23 Mag-Ox 400 PO 400 mg TIDCM [facility] Administration Metoprolol Tartrate 150 mg 02/02/18 22:00 02/04/18 14:22 Lopressor (Beta Devante) PO 150 mg TID [facility] Administration Multi-Ingredient Cream 1 applic 02/03/18 22:00 02/04/18 05:06 Eucerin TOPICAL 1 applicatio 0600,2200 [facility] Administration Protocol Nitroglycerin 0.4 mg 02/02/18 18:40 Nitrostat SUBLINGUAL Q5M PRN Chest Pain Nutritional Formula 1 packet 02/03/18 08:00 02/04/18 17:22 [place] Flavor PO 1 packet BIDCM [facility] Administration Ondansetron HCl 4 mg 02/02/18 18:40 Zofran IV Q6H PRN PRN NAUSEA Oxycodone HCl 5 mg 02/02/18 18:40 02/04/18 09:23 Oxyir PO 5 mg Q6H PRN PRN Administration SEVERE PAIN (6-10/10) Pantoprazole Sodium 40 mg 02/03/18 06:00 02/04/18 05:30 Protonix PO 40 mg DAILY [facility] Administration Polyethylene Glycol 17 gm 02/03/18 06:00 02/04/18 05:06 Miralax PO Not Given DAILY [facility] Polysaccharide Iron Complex 150 mg 02/03/18 06:00 02/04/18 05:30 Ferrex 150 PO 150 mg DAILY [facility] Administration Potassium Bicarb/Potassium Chloride 50 meq 02/03/18 08:00 02/04/18 17:23 Potassium Chl 25 Meq Eff (For Liquid) PO 50 meq BIDCM [facility] Administration Pramipexole Dihydrochloride 0.25 mg 02/02/18 22:00 02/03/18 21:50 Mirapex PO 0.25 mg QHS [facility] Administration Pravastatin Sodium 80 mg 02/02/18 22:00 02/03/18 21:50 Pravachol PO 80 mg QHS [facility] Administration Senna/Docusate Sodium 2 tablet 02/03/18 06:00 02/04/18 17:24 Senokot-S, Page-Colace PO 2 tablet BID [facility] Administration Sodium Chloride 10 - 20 ml 02/03/18 02:45 02/04/18 14:22 IV 20 ml UD PRN Administration PICC FLUSH Tamsulosin HCl 0.4 mg 02/02/18 22:00 02/03/18 21:50 Flomax PO 0.4 mg QHS [facility] Administration Trimethoprim/Sulfamethoxazole 1 tablet 02/03/18 08:00 02/04/18 17:22 Bactrim Ds PO 1 tablet BIDCM [facility] Administration Zolpidem Tartrate 5 mg 02/02/18 18:40 Ambien (Generic) PO QHS PRN PRN SLEEP Vital Signs Temp Pulse Resp BP Pulse Ox 96.0 F L 80 18 137/77 H 97 02/04/18 15:44 02/04/18 15:44 02/04/18 15:44 02/04/18 15:44 02/04/18 15:44 Oxygen Delivery Method Room Air Weight: 106.367 kg Body Mass Index (BMI) 33.0 Finger Stick Blood Glucose 250 Sodium 141 mmol/L (136-145) 02/04/18 05:15 Potassium 3.9 mmol/L (3.5-5.1) 02/04/18 05:15 Chloride 104 mmol/L (98-107) 02/04/18 05:15 Carbon Dioxide 28.0 mmol/L (21.0-32.0) 02/04/18 05:15 Anion Gap 9 (5-15) 02/04/18 05:15 BUN 12 mg/dL (7-18) 02/04/18 05:15 Creatinine 0.62 mg/dL (0.70-1.30) L 02/04/18 05:15 Est GFR (MDRD) Af Amer 166 mL/min (>60) 02/04/18 05:15 Est GFR (MDRD) Non-Af 138 mL/min (>60) 02/04/18 05:15 BUN/Creatinine Ratio 19.4 RATIO (10-20) 02/04/18 05:15 Glucose 208 mg/dL (74-106) H 02/04/18 05:15 Assessment/Plan: Psychotropic Medications: Unnecessary Medications: Bowel Regimen: - Provider Comments Provider responsibility: Provider responsible to enter orders to implement recommendations Provider Comments to Recommendations by Pharmacy: Agree
[2018-02-04 11:46] LABS: Bedside Glucose 362 mg/dL (70-110)
--- NOTE | 2018-02-04 12:42 | NURSING ---
R' REMAINS IN CONTACT ISOLATION THIS SHIFT. ALL CARE PROVIDED IN ROOM T/O SHIFT
[2018-02-04 16:45] LABS: Bedside Glucose 237 mg/dL (70-110)
[2018-02-04] MEDS: Senna/Docusate Sodium 1 Tablet 2 TABLET PO (17:24)
[2018-02-04] MEDS: Budesonide Respules 0.5 MG/2 ML AMPUL.NEB. INHALATION (19:12)
[2018-02-04 20:55] LABS: Bedside Glucose 311 mg/dL (70-110)
[2018-02-04] MEDS: Tamsulosin HCl 0.4 MG Capsule PO (21:16)
[2018-02-04] MEDS: Pramipexole Di-HCl 0.25 MG Tablet PO (21:16)
[2018-02-04] MEDS: Pravastatin 80 MG Tablet PO (21:16)
[2018-02-05 06:31] LABS: Bedside Glucose 193 mg/dL (70-110)
[2018-02-05] MEDS: Piperacil/Tazobactam 3.375 GM Q8 PREMIX IV ×3 (06:39→21:21)
[2018-02-05] MEDS: Senna/Docusate Sodium 1 Tablet 2 TABLET PO ×2 (06:39→18:25)
[2018-02-05] MEDS: Amantadine 100 MG Capsule PO (06:39)
[2018-02-05] MEDS: Iron Polysaccharide Complex 150 MG CAPSULE PO (06:39)
[2018-02-05] MEDS: Furosemide 40 MG Tablet PO ×2 (06:39→13:29)
[2018-02-05] MEDS: Linezolid 600 MG Tablet PO ×2 (06:39→18:25)
[2018-02-05] MEDS: 0.9% NaCl IVPB Med Flush (250 mL) 15 ML IV ×2 (06:39→21:21)
[2018-02-05] MEDS: 0.9% NaCl PICC Flush IV ×3 (06:39→21:20)
[2018-02-05 06:40] VITALS: BP 155/82; PULSE 109; RESP 16; O2SAT 97
[2018-02-05] MEDS: Ipratropium/Albuterol Sulfate 3 ML AMPUL.NEB INHALATION (06:40)
[2018-02-05] MEDS: Pantoprazole Sodium 40 MG Tablet PO (06:40)
[2018-02-05] MEDS: Metoprolol Tartrate 50 MG Tablet 150 MG PO ×3 (06:40→21:21)
[2018-02-05] MEDS: Enoxaparin 40 MG/0.4 ML Syringe SC (06:42)
[2018-02-05] MEDS: Magnesium Oxide 400 MG Tablet PO ×3 (09:03→18:25)
[2018-02-05] MEDS: Ascorbic Acid 500 MG Tablet 1000 MG PO (09:03)
[2018-02-05] MEDS: oxyCODONE 5 MG Tablet PO (09:03)
[2018-02-05] MEDS: Insulin Lispro 100 UNIT/ML INSULN.PEN 10 UNIT SC ×2 (09:04→12:09)
[2018-02-05] MEDS: Smz/Tmp Ds Tablet 1 TABLET PO ×2 (09:04→18:11)
--- NOTE | 2018-02-05 10:37 | NURSING ---
Colostomy appliance changed. peristomal skin is intact. stoma remains pink, moist. measures approx 2. still some mild edema noted. cleansed peristomal skin with Dial soap and water. pat dry. reapplied a 2 piece flat [place] appliance with a small amount of stoma paste. pt tolerated well.
--- NOTE | 2018-02-05 11:11 | CASEMGMT ---
Insurance Clinical updates faxed. Will await continued stay determination. Auth # [id number] KANDACE Smith
[2018-02-05 11:21] LABS: Bedside Glucose 343 mg/dL (70-110)
[2018-02-05 13:29] VITALS: BP 130/69; PULSE 109
[2018-02-05 16:00] VITALS: BP 127/73; PULSE 91; RESP 20; TEMP 36.4; O2SAT 97
[2018-02-05 17:00] LABS: Bedside Glucose 182 mg/dL (70-110)
[2018-02-05] MEDS: Insulin Lispro 100 UNIT/ML INSULN.PEN 13 UNIT SC (18:20)
[2018-02-05] MEDS: Budesonide Respules 0.5 MG/2 ML AMPUL.NEB. INHALATION (19:03)
[2018-02-05 19:10] VITALS: PULSE 91; RESP 18
[2018-02-05 21:11] LABS: Bedside Glucose 177 mg/dL (70-110)
[2018-02-05] MEDS: Tamsulosin HCl 0.4 MG Capsule PO (21:18)
[2018-02-05] MEDS: Pravastatin 80 MG Tablet PO (21:18)
[2018-02-05] MEDS: Pramipexole Di-HCl 0.25 MG Tablet PO (21:18)
[2018-02-05 21:21] VITALS: BP 144/60; PULSE 105
[2018-02-06] MEDS: Linezolid 600 MG Tablet PO ×2 (05:38→18:08)
[2018-02-06] MEDS: Iron Polysaccharide Complex 150 MG CAPSULE PO (05:38)
[2018-02-06] MEDS: Pantoprazole Sodium 40 MG Tablet PO (05:38)
[2018-02-06] MEDS: Enoxaparin 40 MG/0.4 ML Syringe SC (05:38)
[2018-02-06] MEDS: Furosemide 40 MG Tablet PO ×2 (05:38→14:09)
[2018-02-06] MEDS: Amantadine 100 MG Capsule PO (05:38)
[2018-02-06 05:39] VITALS: BP 127/80; PULSE 114
[2018-02-06] MEDS: Metoprolol Tartrate 50 MG Tablet 150 MG PO ×3 (05:39→21:47)
[2018-02-06] MEDS: 0.9% NaCl PICC Flush IV ×2 (05:39→14:09)
[2018-02-06] MEDS: Senna/Docusate Sodium 1 Tablet 2 TABLET PO ×2 (05:39→18:08)
[2018-02-06] MEDS: Piperacil/Tazobactam 3.375 GM Q8 PREMIX IV ×3 (05:59→21:44)
[2018-02-06 06:55] LABS: Bedside Glucose 206 mg/dL (70-110)
[2018-02-06 07:10] VITALS: PULSE 87; RESP 16
[2018-02-06] MEDS: Budesonide Respules 0.5 MG/2 ML AMPUL.NEB. INHALATION (07:10)
[2018-02-06] MEDS: Magnesium Oxide 400 MG Tablet PO ×3 (08:27→18:08)
[2018-02-06] MEDS: Smz/Tmp Ds Tablet 1 TABLET PO ×2 (08:28→18:08)
[2018-02-06] MEDS: Ascorbic Acid 500 MG Tablet 1000 MG PO (08:28)
[2018-02-06] MEDS: Insulin Lispro 100 UNIT/ML INSULN.PEN 13 UNIT SC ×3 (08:28→18:09)
[2018-02-06] MEDS: oxyCODONE 5 MG Tablet PO (10:51)
[2018-02-06 11:30] LABS: Bedside Glucose 285 mg/dL (70-110)
[2018-02-06 14:10] VITALS: BP 128/73; PULSE 108
[2018-02-06 15:30] VITALS: BP 142/74; PULSE 94; RESP 18; TEMP 36.6; O2SAT 97
[2018-02-06 16:56] LABS: Bedside Glucose 263 mg/dL (70-110)
[2018-02-06] MEDS: 0.9% NaCl IVPB Med Flush (250 mL) 15 ML IV (21:45)
[2018-02-06] MEDS: Pramipexole Di-HCl 0.25 MG Tablet PO (21:46)
[2018-02-06] MEDS: Tamsulosin HCl 0.4 MG Capsule PO (21:46)
[2018-02-06 21:47] VITALS: BP 145/78; PULSE 99
[2018-02-06] MEDS: Pravastatin 80 MG Tablet PO (21:47)
[2018-02-07 00:05] LABS: Bedside Glucose 217 mg/dL (70-110)
--- NOTE | 2018-02-07 00:09 | NURSING ---
02/06/18 @ 2100: INFORMED BY SHEEP SORTER THAT PATIENT HAD PULLED OFF HIS COLOSTOMY BAG AND THERE WAS STOOL ON LINENS & PATIENTS HANDS. PT GIVEN A BATH AND LINENS CHANGED. OBTAINED A NEW COLOSTOMY BAG FROM SMOKING TOBACCO PACKER HAND AND REATTACHED TO OSTOMY AT THIS TIME.
[2018-02-07] MEDS: Piperacil/Tazobactam 3.375 GM Q8 PREMIX IV ×3 (04:54→21:04)
[2018-02-07] MEDS: Enoxaparin 40 MG/0.4 ML Syringe SC (04:57)
[2018-02-07] MEDS: Pantoprazole Sodium 40 MG Tablet PO (04:58)
[2018-02-07] MEDS: Senna/Docusate Sodium 1 Tablet 2 TABLET PO ×2 (04:58→18:04)
[2018-02-07] MEDS: Magnesium Oxide 400 MG Tablet PO ×3 (04:58→18:03)
[2018-02-07] MEDS: Furosemide 40 MG Tablet PO ×2 (04:59)
[2018-02-07] MEDS: Linezolid 600 MG Tablet PO ×2 (04:59→18:04)
[2018-02-07 05:01] VITALS: BP 138/66; PULSE 104
[2018-02-07] MEDS: Metoprolol Tartrate 50 MG Tablet 150 MG PO ×3 (05:01→21:05)
[2018-02-07] MEDS: Iron Polysaccharide Complex 150 MG CAPSULE PO (05:03)
[2018-02-07 06:56] LABS: Bedside Glucose 223 mg/dL (70-110)
--- NOTE | 2018-02-07 07:11 | PCA ---
res. taking off ostomy bag an playing in bm, rn aware
[2018-02-07] MEDS: Budesonide Respules 0.5 MG/2 ML AMPUL.NEB. INHALATION (07:15)
--- NOTE | 2018-02-07 07:18 | NURSING ---
PT NOTED TO HAVE PULLED OFF HIS COLOSTOMY BAG THIS AM . PARTIAL BATH GIVEN AND NEW APPARATUS AND BAG APPLIED.
[2018-02-07 07:43] VITALS: PULSE 88; RESP 18
[2018-02-07] MEDS: Ascorbic Acid 500 MG Tablet 1000 MG PO (08:43)
[2018-02-07] MEDS: Smz/Tmp Ds Tablet 1 TABLET PO ×2 (08:43→18:03)
[2018-02-07] MEDS: Insulin Lispro 100 UNIT/ML INSULN.PEN 13 UNIT SC (08:44)
[2018-02-07 11:30] LABS: Bedside Glucose 256 mg/dL (70-110)
[2018-02-07] MEDS: Insulin Lispro 100 UNIT/ML INSULN.PEN 17 UNIT SC ×2 (12:11→18:05)
[2018-02-07] MEDS: oxyCODONE 5 MG Tablet PO (12:50)
[2018-02-07 13:53] VITALS: PULSE 105
[2018-02-07 15:10] VITALS: BP 139/59; PULSE 90; RESP 22; TEMP 36.3; O2SAT 95
[2018-02-07 16:50] LABS: Bedside Glucose 202 mg/dL (70-110)
[2018-02-07 20:51] LABS: Bedside Glucose 152 mg/dL (70-110)
[2018-02-07 21:05] VITALS: BP 137/63; PULSE 91
[2018-02-07] MEDS: 0.9% NaCl IVPB Med Flush (250 mL) 15 ML IV (21:05)
[2018-02-07] MEDS: Tamsulosin HCl 0.4 MG Capsule PO (21:05)
[2018-02-07] MEDS: Pramipexole Di-HCl 0.25 MG Tablet PO (21:05)
[2018-02-07] MEDS: Pravastatin 80 MG Tablet PO (21:05)
[2018-02-07] MEDS: 0.9% NaCl PICC Flush IV (21:16)
[2018-02-08 05:10] VITALS: BP 178/82; PULSE 101
[2018-02-08] MEDS: Pantoprazole Sodium 40 MG Tablet PO (05:10)
[2018-02-08] MEDS: Furosemide 40 MG Tablet PO ×2 (05:10→14:32)
[2018-02-08] MEDS: Polyethylene Glycol 3350 17 GM PACKET PO (05:10)
[2018-02-08] MEDS: Linezolid 600 MG Tablet PO ×2 (05:10→17:07)
[2018-02-08] MEDS: Senna/Docusate Sodium 1 Tablet 2 TABLET PO ×2 (05:10→17:06)
[2018-02-08] MEDS: Metoprolol Tartrate 50 MG Tablet 150 MG PO ×3 (05:10→21:07)
[2018-02-08] MEDS: Amantadine 100 MG Capsule PO (05:10)
[2018-02-08] MEDS: Iron Polysaccharide Complex 150 MG CAPSULE PO (05:10)
[2018-02-08] MEDS: Enoxaparin 40 MG/0.4 ML Syringe SC (05:11)
[2018-02-08] MEDS: Piperacil/Tazobactam 3.375 GM Q8 PREMIX IV ×3 (05:15→21:06)
[2018-02-08] MEDS: 0.9% NaCl PICC Flush IV ×3 (05:26→21:04)
[2018-02-08 06:56] LABS: Bedside Glucose 190 mg/dL (70-110)
[2018-02-08 07:18] VITALS: PULSE 88; RESP 16
[2018-02-08] MEDS: Budesonide Respules 0.5 MG/2 ML AMPUL.NEB. INHALATION ×2 (07:18→18:53)
[2018-02-08] MEDS: Insulin Lispro 100 UNIT/ML INSULN.PEN 17 UNIT SC ×2 (08:08→11:40)
--- NOTE | 2018-02-08 08:39 | NURSING ---
Pt pulled off colostomy appliance, colostomy appliance reapplied at this time. Peristomal skin is intact. Cleansed peristomal skin with soap and water, patted dry. Reapplied a 2 piece flat [place] appliance with stoma paste. Pt tolerated well.
[2018-02-08] MEDS: Magnesium Oxide 400 MG Tablet PO ×3 (09:30→17:06)
[2018-02-08] MEDS: Smz/Tmp Ds Tablet 1 TABLET PO ×2 (09:30→17:06)
[2018-02-08] MEDS: Ascorbic Acid 500 MG Tablet 1000 MG PO (09:30)
[2018-02-08 11:26] LABS: Bedside Glucose 241 mg/dL (70-110)
[2018-02-08] MEDS: oxyCODONE 5 MG Tablet PO (11:40)
--- NOTE | 2018-02-08 12:26 | NURSING ---
R' REMAINS IN CONTACT ISOLATION THIS SHIFT.
[2018-02-08 14:30] VITALS: BP 152/76; PULSE 111
[2018-02-08 14:32] VITALS: BP 152/76; PULSE 111
--- NOTE | 2018-02-08 15:24 | NURSING ---
Code status discussed with , VERONIKA, states pt wishes to be a DNRCC-A, pt agrees.
[2018-02-08 16:51] LABS: Bedside Glucose 148 mg/dL (70-110)
[2018-02-08] MEDS: Insulin Lispro 100 UNIT/ML INSULN.PEN 13 UNIT SC (17:19)
[2018-02-08 18:53] VITALS: PULSE 79; RESP 16
[2018-02-08 21:01] LABS: Bedside Glucose 202 mg/dL (70-110)
[2018-02-08] MEDS: diazePAM 2 MG Tablet PO (21:04)
[2018-02-08] MEDS: Tamsulosin HCl 0.4 MG Capsule PO (21:04)
[2018-02-08] MEDS: Pravastatin 80 MG Tablet PO (21:04)
[2018-02-08] MEDS: Pramipexole Di-HCl 0.25 MG Tablet PO (21:04)
[2018-02-08] MEDS: 0.9% NaCl IVPB Med Flush (250 mL) 15 ML IV (21:05)
[2018-02-08 21:07] VITALS: BP 107/62; PULSE 101
--- NOTE | 2018-02-09 02:05 | NURSING ---
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
[2018-02-09] MEDS: oxyCODONE 5 MG Tablet PO ×2 (03:30→12:50)
--- NOTE | 2018-02-09 04:57 | NURSING ---
Addendum entered by Ailin Arreguin 02/09/18 11:02: clarified with Dr soas if PICC in correct position for use. Original Note: Addendum entered by Ailin Arreguin 02/09/18 09:48: Chest xray done, picc still in midportion of SVC. Zosyn started, infusing. Will get zosyn back on schedule. Flushed well and good blood return. slight redness noted at insertion site but no discharge noted. pt denies pain or issues. Original Note: Prior to drsg change PICC catheter exposed 4 cm. Pt became tense and anxious during drsg change PICC migrated outward while being held steady by RN. PICC exposed at 5cm. Insertion site noted to red and raised. Will notify Dr Luis.
[2018-02-09 05:36] LABS: Bedside Glucose 182 mg/dL (70-110)
[2018-02-09] MEDS: Iron Polysaccharide Complex 150 MG CAPSULE PO (06:03)
[2018-02-09] MEDS: Pantoprazole Sodium 40 MG Tablet PO (06:03)
[2018-02-09] MEDS: Senna/Docusate Sodium 1 Tablet 2 TABLET PO ×2 (06:03→17:28)
[2018-02-09] MEDS: Amantadine 100 MG Capsule PO (06:03)
[2018-02-09] MEDS: Linezolid 600 MG Tablet PO ×2 (06:03→17:29)
[2018-02-09] MEDS: Furosemide 40 MG Tablet PO ×2 (06:03→13:29)
[2018-02-09] MEDS: Enoxaparin 40 MG/0.4 ML Syringe SC (06:04)
[2018-02-09] MEDS: Polyethylene Glycol 3350 17 GM PACKET PO (06:04)
[2018-02-09] MEDS: Nystatin Powder 15gm Bottle 1 APPLIC TOPICAL ×2 (06:04→20:54)
[2018-02-09 06:13] VITALS: BP 131/74; PULSE 96
[2018-02-09] MEDS: Metoprolol Tartrate 50 MG Tablet 150 MG PO ×3 (06:13→20:52)
[2018-02-09 06:15] LABS: Bedside Glucose 193 mg/dL (70-110)
[2018-02-09 06:40] VITALS: PULSE 80; RESP 16
[2018-02-09] MEDS: Budesonide Respules 0.5 MG/2 ML AMPUL.NEB. INHALATION (06:40)
[2018-02-09] MEDS: Magnesium Oxide 400 MG Tablet PO ×3 (08:30→17:28)
[2018-02-09] MEDS: Smz/Tmp Ds Tablet 1 TABLET PO ×2 (08:30→17:28)
[2018-02-09] MEDS: Ascorbic Acid 500 MG Tablet 1000 MG PO (08:30)
[2018-02-09] MEDS: Insulin Lispro 100 UNIT/ML INSULN.PEN 13 UNIT SC ×3 (08:31→17:28)
--- NOTE | 2018-02-09 09:42 | NURSING ---
pt remains in isolation, receiving all treatments in room
[2018-02-09] MEDS: Piperacil/Tazobactam 3.375 GM Q8 PREMIX IV ×3 (09:43→22:01)
[2018-02-09] MEDS: 0.9% NaCl PICC Flush IV ×3 (09:44→20:49)
[2018-02-09 11:21] LABS: Bedside Glucose 279 mg/dL (70-110)
--- NOTE | 2018-02-09 12:14 | CASEMGMT ---
Insurance Continued stay approved with next update due on 02/15/18. Auth#[id number] Nora JERONIMO, TYRE RETREADER
[2018-02-09 13:29] VITALS: PULSE 103
[2018-02-09 13:32] VITALS: BP 129/68; PULSE 102; RESP 18; TEMP 36.6; O2SAT 95
--- NOTE | 2018-02-09 15:37 | CASEMGMT ---
Brief interview for mental status (BIMS) and resident mood interview (PHQ-9) completed on this day. BIMS score 11/20. PHQ-9 score
[2018-02-09 16:56] LABS: Bedside Glucose 151 mg/dL (70-110)
[2018-02-09] MEDS: 0.9% NaCl IVPB Med Flush (250 mL) 15 ML IV (20:44)
[2018-02-09 20:52] VITALS: BP 120/72; PULSE 91
[2018-02-09] MEDS: Pravastatin 80 MG Tablet PO (20:52)
[2018-02-09] MEDS: Pramipexole Di-HCl 0.25 MG Tablet PO (20:52)
[2018-02-09] MEDS: Tamsulosin HCl 0.4 MG Capsule PO (20:52)
[2018-02-09] MEDS: Zolpidem Tartrate 5 MG Tablet PO (20:53)
[2018-02-09 21:11] LABS: Bedside Glucose 141 mg/dL (70-110)
[2018-02-10] MEDS: Iron Polysaccharide Complex 150 MG CAPSULE PO (04:33)
[2018-02-10] MEDS: Furosemide 40 MG Tablet PO ×2 (04:33→13:00)
[2018-02-10] MEDS: Linezolid 600 MG Tablet PO ×2 (04:33→18:13)
[2018-02-10] MEDS: Pantoprazole Sodium 40 MG Tablet PO (04:33)
[2018-02-10] MEDS: Amantadine 100 MG Capsule PO (04:33)
[2018-02-10] MEDS: Polyethylene Glycol 3350 17 GM PACKET PO (04:33)
[2018-02-10] MEDS: Senna/Docusate Sodium 1 Tablet 2 TABLET PO ×2 (04:33→18:12)
[2018-02-10] MEDS: Nystatin Powder 15gm Bottle 1 APPLIC TOPICAL ×2 (04:34→22:15)
[2018-02-10] MEDS: Enoxaparin 40 MG/0.4 ML Syringe SC (04:36)
[2018-02-10] MEDS: oxyCODONE 5 MG Tablet PO (04:42)
[2018-02-10 04:46] VITALS: BP 106/65; PULSE 94
[2018-02-10] MEDS: Metoprolol Tartrate 50 MG Tablet 150 MG PO ×3 (04:46→22:23)
[2018-02-10] MEDS: 0.9% NaCl PICC Flush IV ×2 (04:53→22:06)
[2018-02-10] MEDS: Piperacil/Tazobactam 3.375 GM Q8 PREMIX IV ×3 (05:03→22:07)
[2018-02-10 05:08] LABS: Absolute Lymphocyte Count 2.05 X10^3/ul (0.83-4.51); Absolute Neutrophil Count 4.9 X10^3/uL (2.0-7.7); Basophil# 0.04 X10^3/uL; Basophil% 0.5 % (0-1); Eosinophils% 2.5 % (0-5); Hematocrit 35.1 % (40-54); Hemoglobin 11.1 g/dl (13.0-16.5); Lymphocyte # 2.05 X10^3/ul (4.0); Lymphocyte % 26.1 % (19-41); Mean Corp Hgb Conc 31.6 g/gl (32-36); Mean Corpuscular Hgb 30.1 pg (27.0-32.0); Mean Corpuscular Volume 95.1 fL (80-94); Mean Platelet Vol. 9.4 fl (6.2-12.0); Monocyte# 0.65 X10^3/uL; Monocyte% 8.3 % (0-10); Neutrophil # 4.91 X10^3/uL (2.7-7.7); Neutrophil % 62.5 % (47-70); Platelet Count 269 K/mm3 (150-450); RBC Distribution Width CV 15.9 % (11.6-14.6); RBC Distribution Width SD 53.7 fl (35.1-43.9); Red Blood Count 3.69 M/mm3 (4.6-6.2); White Blood Count 7.9 K/mm3 (4.4-11.0)
[2018-02-10 05:15] LABS: POSITIVE COUNT NO; POSITIVE DIFFERENTIAL NO; POSITIVE MORPHOLOGY NO
[2018-02-10 05:23] LABS: Anion Gap 10 (5-15); BUN 18 mg/dL (7-18); BUN/Creat Ratio 22.8 RATIO (10-20); Calcium,Total 9.6 mg/dL (8.5-10.1); Chloride 100 mmol/L (98-107); Creatinine, Serum 0.79 mg/dL (0.70-1.30); EST Glomerular Filtration Rate 104 mL/min (>60); Est Glom Filt Rate - Afr Amer 126 mL/min (>60); Estimated Creatinine Clearance 81.01 ml/min; Glucose 163 mg/dL (74-106); Potassium 3.9 mmol/L (3.5-5.1); Sodium Level 137 mmol/L (136-145)
[2018-02-10 06:56] LABS: Bedside Glucose 158 mg/dL (70-110)
[2018-02-10 07:08] VITALS: PULSE 77; RESP 18; O2SAT 99
[2018-02-10] MEDS: Budesonide Respules 0.5 MG/2 ML AMPUL.NEB. INHALATION ×2 (07:08→19:08)
--- NOTE | 2018-02-10 08:25 | NURSING ---
Pt grabbing and pulling at groin area frequently. Dr. Luis updated. NO for bacitracin to tip of penis BID
--- NOTE | 2018-02-10 09:08 | CASEMGMT ---
Plan of care meeting held. Resident present as well as resident spouse. No discharge date set at this time. Resident with an insurance update due on 02/15/18 and is aware that continued stay approval is not guaranteed. Resident plans to discharge to home with spouse versus nursing facility under pending medicaid. Res[facility] for facility [facility] [place]. Resident to continue with further care and treatment on the Transitional Care Unit at this time. Support given. Will continue to follow. Nora JERONIMO, TECHNICAL SALES MANAGER
[2018-02-10] MEDS: Smz/Tmp Ds Tablet 1 TABLET PO ×2 (09:51→18:12)
[2018-02-10] MEDS: Magnesium Oxide 400 MG Tablet PO ×3 (09:51→18:11)
[2018-02-10] MEDS: Ascorbic Acid 500 MG Tablet 1000 MG PO (09:52)
[2018-02-10 12:00] LABS: Bedside Glucose 341 mg/dL (70-110)
[2018-02-10] MEDS: Insulin Lispro 100 UNIT/ML INSULN.PEN 13 UNIT SC ×2 (12:57→18:08)
--- NOTE | 2018-02-10 14:01 | CASEMGMT ---
Social Work Telephone call to [employer] to check on Medicaid application, voicemail left for Lisa. Will continue to follow. Nora JERONIMO, CHANGEOVER OPERATOR
--- NOTE | 2018-02-10 14:41 | NURSING ---
wound photo: sacrum
--- NOTE | 2018-02-10 14:42 | NURSING ---
Was called by TCU personal secretary that patient had pulled the wound VAC off. in room to see patient. was standing with the Lisa lift with therapy. patient had just pulled the bridged area off the left thigh. dressing was intact to the sacrum. removed the bridge from the left and just placed a new bridge to the right thigh since patient does not use the right arm much. Good seal noted at 150mmHg low continuous suction. Pt tolerated well. Discussed with CAMILA Brown.
[2018-02-10 15:55] VITALS: BP 126/76; PULSE 105
[2018-02-10 16:00] VITALS: BP 126/76; PULSE 105; RESP 18; TEMP 36.7; O2SAT 96
[2018-02-10 17:01] LABS: Bedside Glucose 140 mg/dL (70-110)
[2018-02-10 19:09] VITALS: PULSE 90; RESP 16
[2018-02-10 20:56] LABS: Bedside Glucose 174 mg/dL (70-110)
[2018-02-10] MEDS: 0.9% NaCl IVPB Med Flush (250 mL) 15 ML IV (22:03)
[2018-02-10] MEDS: Pramipexole Di-HCl 0.25 MG Tablet PO (22:14)
[2018-02-10] MEDS: Tamsulosin HCl 0.4 MG Capsule PO (22:14)
[2018-02-10] MEDS: Pravastatin 80 MG Tablet PO (22:14)
[2018-02-10 22:23] VITALS: BP 140/76; PULSE 88
[2018-02-10] MEDS: BACITRACIN 15 GM Tube 1 APPLIC TOPICAL (22:23)
[2018-02-11] MEDS: BACITRACIN 15 GM Tube 1 APPLIC TOPICAL ×2 (04:55→17:56)
[2018-02-11] MEDS: Senna/Docusate Sodium 1 Tablet 2 TABLET PO ×2 (04:57→17:45)
[2018-02-11] MEDS: Furosemide 40 MG Tablet PO ×2 (04:57→13:03)
[2018-02-11] MEDS: Iron Polysaccharide Complex 150 MG CAPSULE PO (04:57)
[2018-02-11] MEDS: Pantoprazole Sodium 40 MG Tablet PO (04:57)
[2018-02-11] MEDS: Linezolid 600 MG Tablet PO ×2 (04:57→17:45)
[2018-02-11] MEDS: Amantadine 100 MG Capsule PO (04:57)
[2018-02-11] MEDS: Polyethylene Glycol 3350 17 GM PACKET PO (04:58)
[2018-02-11] MEDS: Enoxaparin 40 MG/0.4 ML Syringe SC (04:58)
[2018-02-11 04:59] VITALS: BP 161/68; PULSE 92
[2018-02-11] MEDS: Metoprolol Tartrate 50 MG Tablet 150 MG PO ×3 (04:59→21:16)
[2018-02-11] MEDS: Piperacil/Tazobactam 3.375 GM Q8 PREMIX IV ×3 (05:10→21:11)
[2018-02-11] MEDS: Nystatin Powder 15gm Bottle 1 APPLIC TOPICAL ×2 (05:14→21:24)
[2018-02-11] MEDS: Budesonide Respules 0.5 MG/2 ML AMPUL.NEB. INHALATION ×2 (06:41→19:56)
[2018-02-11 06:42] VITALS: PULSE 76; RESP 20; O2SAT 100
[2018-02-11 06:51] LABS: Bedside Glucose 191 mg/dL (70-110)
[2018-02-11] MEDS: Smz/Tmp Ds Tablet 1 TABLET PO ×2 (08:22→17:45)
[2018-02-11] MEDS: Magnesium Oxide 400 MG Tablet PO ×3 (08:22→17:44)
[2018-02-11] MEDS: Insulin Lispro 100 UNIT/ML INSULN.PEN 13 UNIT SC ×3 (08:22→17:46)
[2018-02-11] MEDS: Ascorbic Acid 500 MG Tablet 1000 MG PO (08:22)
[2018-02-11 11:16] LABS: Bedside Glucose 242 mg/dL (70-110)
--- NOTE | 2018-02-11 11:42 | NURSING ---
Removed colostomy appliance. there was a moderate amount of a soft, brown, unformed stool in the ostomy appliance. peristomal skin intact. stoma is well bedded, pink, and moist. sutures remain. cleansed peristomal skin with warm water. pat dry. applied a new flat 2 piece [place] appliance with stoma paste. pt tolerated well. will continue to monitor. present at bedside.
[2018-02-11 13:05] VITALS: BP 141/71; PULSE 96
[2018-02-11] MEDS: 0.9% NaCl PICC Flush IV ×2 (13:06→21:16)
[2018-02-11 16:00] VITALS: BP 119/70; PULSE 79; RESP 18; TEMP 37.1; O2SAT 97
--- NOTE | 2018-02-11 16:51 | CASEMGMT ---
Social Work Telephone call from [employer], Lisa. Lisa reporting to be currently working on the Medicaid application at this time and to not have it completed yet. Notified resident spouse of above information. Will continue to follow. Nora JERONIMO, GEARMAN
[2018-02-11 17:00] LABS: Bedside Glucose 184 mg/dL (70-110)
[2018-02-11 19:56] VITALS: PULSE 78; RESP 18
[2018-02-11 20:45] LABS: Bedside Glucose 172 mg/dL (70-110)
[2018-02-11] MEDS: 0.9% NaCl IVPB Med Flush (250 mL) 15 ML IV (21:11)
[2018-02-11 21:16] VITALS: BP 139/52; PULSE 90
[2018-02-11] MEDS: Pravastatin 80 MG Tablet PO (21:17)
[2018-02-11] MEDS: Pramipexole Di-HCl 0.25 MG Tablet PO (21:17)
[2018-02-11] MEDS: Tamsulosin HCl 0.4 MG Capsule PO (21:17)
[2018-02-12] MEDS: Piperacil/Tazobactam 3.375 GM Q8 PREMIX IV ×3 (04:50→21:21)
[2018-02-12 04:54] VITALS: BP 138/70; PULSE 93
[2018-02-12] MEDS: Senna/Docusate Sodium 1 Tablet 2 TABLET PO ×2 (04:54→18:02)
[2018-02-12] MEDS: Metoprolol Tartrate 50 MG Tablet 150 MG PO ×3 (04:54→21:14)
[2018-02-12] MEDS: Furosemide 40 MG Tablet PO ×2 (04:54→13:07)
[2018-02-12] MEDS: Linezolid 600 MG Tablet PO ×2 (04:55→18:03)
[2018-02-12] MEDS: Polyethylene Glycol 3350 17 GM PACKET PO (04:55)
[2018-02-12] MEDS: Pantoprazole Sodium 40 MG Tablet PO (04:55)
[2018-02-12] MEDS: Amantadine 100 MG Capsule PO (04:55)
[2018-02-12] MEDS: Enoxaparin 40 MG/0.4 ML Syringe SC (04:55)
[2018-02-12] MEDS: Iron Polysaccharide Complex 150 MG CAPSULE PO (04:56)
[2018-02-12] MEDS: Nystatin Powder 15gm Bottle 1 APPLIC TOPICAL ×2 (05:08→21:18)
[2018-02-12] MEDS: BACITRACIN 15 GM Tube 1 APPLIC TOPICAL ×2 (05:10→18:05)
[2018-02-12 06:56] LABS: Bedside Glucose 149 mg/dL (70-110)
[2018-02-12] MEDS: Insulin Lispro 100 UNIT/ML INSULN.PEN 13 UNIT SC ×2 (08:58→12:23)
[2018-02-12] MEDS: Smz/Tmp Ds Tablet 1 TABLET PO ×2 (10:03→18:02)
[2018-02-12] MEDS: Magnesium Oxide 400 MG Tablet PO ×3 (10:03→18:03)
[2018-02-12] MEDS: Ascorbic Acid 500 MG Tablet 1000 MG PO (10:03)
[2018-02-12 11:00] VITALS: O2SAT 98
[2018-02-12 13:11] VITALS: BP 143/82; PULSE 106
[2018-02-12] MEDS: oxyCODONE 5 MG Tablet PO ×2 (13:12→23:04)
[2018-02-12] MEDS: 0.9% NaCl PICC Flush IV ×2 (13:15→21:24)
[2018-02-12 15:10] VITALS: BP 105/52; PULSE 74; RESP 17; TEMP 36.8; O2SAT 98
--- NOTE | 2018-02-12 15:59 | NURSING ---
concerned about pt d/t congestion/nasal stuffiness and sneezing today. Dr Luis updated, new order to start flonase & robitussin BID.
[2018-02-12 16:56] LABS: Bedside Glucose 95 mg/dL (70-110)
[2018-02-12] MEDS: guaiFENesin 10 ML UDC (200MG/10ML) GT (18:04)
[2018-02-12 18:40] LABS: Bedside Glucose 125 mg/dL (70-110)
[2018-02-12 19:10] VITALS: PULSE 82; RESP 18
[2018-02-12] MEDS: Budesonide Respules 0.5 MG/2 ML AMPUL.NEB. INHALATION (19:10)
[2018-02-12 21:11] LABS: Bedside Glucose 195 mg/dL (70-110)
[2018-02-12] MEDS: diazePAM 2 MG Tablet PO (21:13)
[2018-02-12 21:14] VITALS: BP 122/47; PULSE 95
[2018-02-12] MEDS: Tamsulosin HCl 0.4 MG Capsule PO (21:15)
[2018-02-12] MEDS: Pravastatin 80 MG Tablet PO (21:15)
[2018-02-12] MEDS: Pramipexole Di-HCl 0.25 MG Tablet PO (21:15)
[2018-02-12] MEDS: 0.9% NaCl IVPB Med Flush (250 mL) 15 ML IV (21:20)
--- NOTE | 2018-02-12 22:03 | PCA ---
Checked on resident at 2129, found that he had pulled off his ostomy bag and was playing in his stool. Bed bath was given to resident by this aide and RN OUTPATIENT SURGERY Parul Das and bag reattached. This aide asked Resident why he keeps pulling his bag off and he stated I don't know. RN Deidra Vegas was notified.
[2018-02-13] VITALS (7 sets, daily range): BP systolic 109–172; BP diastolic 55–69; PULSE 77–105; RESP 18; TEMP 35.6; O2SAT 97
[2018-02-13] MEDS: Piperacil/Tazobactam 3.375 GM Q8 PREMIX IV ×3 (04:59→21:49)
[2018-02-13] MEDS: Metoprolol Tartrate 50 MG Tablet 150 MG PO ×3 (05:00→22:03)
[2018-02-13] MEDS: guaiFENesin 10 ML UDC (200MG/10ML) GT ×2 (05:00→17:20)
[2018-02-13] MEDS: Linezolid 600 MG Tablet PO ×2 (05:01→17:19)
[2018-02-13] MEDS: Pantoprazole Sodium 40 MG Tablet PO (05:01)
[2018-02-13] MEDS: Polyethylene Glycol 3350 17 GM PACKET PO (05:02)
[2018-02-13] MEDS: Furosemide 40 MG Tablet PO ×2 (05:02→13:47)
[2018-02-13] MEDS: Amantadine 100 MG Capsule PO (05:02)
[2018-02-13] MEDS: Senna/Docusate Sodium 1 Tablet 2 TABLET PO ×2 (05:02→17:20)
[2018-02-13] MEDS: Iron Polysaccharide Complex 150 MG CAPSULE PO (05:03)
[2018-02-13] MEDS: Nystatin Powder 15gm Bottle 1 APPLIC TOPICAL ×2 (05:05→22:01)
[2018-02-13] MEDS: BACITRACIN 15 GM Tube 1 APPLIC TOPICAL ×2 (05:05→17:20)
[2018-02-13] MEDS: Enoxaparin 40 MG/0.4 ML Syringe SC (05:08)
[2018-02-13] MEDS: 0.9% NaCl PICC Flush IV ×3 (05:10→21:50)
[2018-02-13] MEDS: Fluticasone 0.05% 1 SPRAY NASAL.SRY 2 SPRAY NASAL (06:34)
[2018-02-13 06:56] LABS: Bedside Glucose 168 mg/dL (70-110)
[2018-02-13] MEDS: Budesonide Respules 0.5 MG/2 ML AMPUL.NEB. INHALATION ×2 (07:02→19:00)
[2018-02-13] MEDS: Ascorbic Acid 500 MG Tablet 1000 MG PO (09:35)
[2018-02-13] MEDS: Smz/Tmp Ds Tablet 1 TABLET PO ×2 (09:36→17:19)
[2018-02-13] MEDS: Magnesium Oxide 400 MG Tablet PO ×3 (09:36→17:17)
[2018-02-13] MEDS: Insulin Lispro 100 UNIT/ML INSULN.PEN 7 UNIT SC ×3 (09:37→17:18)
[2018-02-13] MEDS: oxyCODONE 5 MG Tablet PO ×2 (09:54→22:56)
[2018-02-13 11:30] LABS: Bedside Glucose 238 mg/dL (70-110)
[2018-02-13 17:01] LABS: Bedside Glucose 237 mg/dL (70-110)
--- NOTE | 2018-02-13 18:21 | NURSING ---
R' PULLING OSTOMY BAG OFF T/O SHIFT. TOTAL APPLIANCE CHANGED BY Sakina DUPREE RN. ALSO, ABDOMINAL BINDER PUT IN PLACE.
[2018-02-13 21:21] LABS: Bedside Glucose 198 mg/dL (70-110)
[2018-02-13] MEDS: 0.9% NaCl IVPB Med Flush (250 mL) 15 ML IV (21:49)
[2018-02-13] MEDS: Pravastatin 80 MG Tablet PO (22:02)
[2018-02-13] MEDS: Tamsulosin HCl 0.4 MG Capsule PO (22:02)
[2018-02-13] MEDS: Pramipexole Di-HCl 0.25 MG Tablet PO (22:02)
[2018-02-14] MEDS: Nystatin Powder 15gm Bottle 1 APPLIC TOPICAL ×2 (05:48→22:19)
[2018-02-14] MEDS: Piperacil/Tazobactam 3.375 GM Q8 PREMIX IV ×3 (05:48→22:18)
[2018-02-14] MEDS: BACITRACIN 15 GM Tube 1 APPLIC TOPICAL ×2 (05:50→17:36)
[2018-02-14] MEDS: Amantadine 100 MG Capsule PO (05:54)
[2018-02-14] MEDS: Fluticasone 0.05% 1 SPRAY NASAL.SRY 2 SPRAY NASAL (05:54)
[2018-02-14 05:55] VITALS: PULSE 99
[2018-02-14] MEDS: Iron Polysaccharide Complex 150 MG CAPSULE PO (05:55)
[2018-02-14] MEDS: Pantoprazole Sodium 40 MG Tablet PO (05:55)
[2018-02-14] MEDS: Senna/Docusate Sodium 1 Tablet 2 TABLET PO ×2 (05:55→17:37)
[2018-02-14] MEDS: Linezolid 600 MG Tablet PO ×2 (05:55→17:37)
[2018-02-14] MEDS: guaiFENesin 10 ML UDC (200MG/10ML) GT ×2 (05:55→17:38)
[2018-02-14] MEDS: Enoxaparin 40 MG/0.4 ML Syringe SC (05:55)
[2018-02-14] MEDS: Metoprolol Tartrate 50 MG Tablet 150 MG PO ×3 (05:55→22:21)
[2018-02-14] MEDS: Furosemide 40 MG Tablet PO ×2 (05:55→13:49)
[2018-02-14 06:56] VITALS: PULSE 75; RESP 16; O2SAT 99
[2018-02-14] MEDS: Budesonide Respules 0.5 MG/2 ML AMPUL.NEB. INHALATION ×2 (06:56→19:45)
[2018-02-14 07:11] LABS: Bedside Glucose 146 mg/dL (70-110)
[2018-02-14] MEDS: Insulin Lispro 100 UNIT/ML INSULN.PEN 7 UNIT SC ×3 (08:56→17:39)
[2018-02-14] MEDS: Magnesium Oxide 400 MG Tablet PO ×3 (08:58→17:37)
[2018-02-14] MEDS: Smz/Tmp Ds Tablet 1 TABLET PO ×2 (08:58→17:37)
[2018-02-14] MEDS: Ascorbic Acid 500 MG Tablet 1000 MG PO (08:58)
[2018-02-14 11:31] LABS: Bedside Glucose 222 mg/dL (70-110)
[2018-02-14 13:49] VITALS: PULSE 104
[2018-02-14] MEDS: 0.9% NaCl PICC Flush IV ×2 (13:50→22:18)
[2018-02-14 15:48] VITALS: BP 118/75; PULSE 83; RESP 18; TEMP 36.8; O2SAT 93
[2018-02-14 17:25] LABS: Bedside Glucose 152 mg/dL (70-110)
[2018-02-14 19:45] VITALS: PULSE 84; RESP 16
[2018-02-14 21:31] LABS: Bedside Glucose 164 mg/dL (70-110)
[2018-02-14] MEDS: 0.9% NaCl IVPB Med Flush (250 mL) 15 ML IV (22:18)
[2018-02-14 22:21] VITALS: PULSE 102
[2018-02-14] MEDS: Pramipexole Di-HCl 0.25 MG Tablet PO (22:21)
[2018-02-14] MEDS: Tamsulosin HCl 0.4 MG Capsule PO (22:21)
[2018-02-14] MEDS: Pravastatin 80 MG Tablet PO (22:21)
[2018-02-14] MEDS: oxyCODONE 5 MG Tablet PO (23:06)
[2018-02-14] MEDS: Acetaminophen 500 MG Tablet 1000 MG PO (23:06)
[2018-02-15] MEDS: 0.9% NaCl PICC Flush IV ×2 (05:58→21:14)
[2018-02-15] MEDS: Piperacil/Tazobactam 3.375 GM Q8 PREMIX IV ×3 (05:58→21:14)
[2018-02-15] MEDS: Fluticasone 0.05% 1 SPRAY NASAL.SRY 2 SPRAY NASAL (06:14)
[2018-02-15] MEDS: BACITRACIN 15 GM Tube 1 APPLIC TOPICAL ×2 (06:15→18:22)
[2018-02-15] MEDS: Nystatin Powder 15gm Bottle 1 APPLIC TOPICAL ×2 (06:16→21:27)
[2018-02-15] MEDS: Linezolid 600 MG Tablet PO ×2 (06:22→18:21)
[2018-02-15] MEDS: Pantoprazole Sodium 40 MG Tablet PO (06:22)
[2018-02-15] MEDS: Amantadine 100 MG Capsule PO (06:22)
[2018-02-15] MEDS: Furosemide 40 MG Tablet PO ×2 (06:22→14:30)
[2018-02-15] MEDS: guaiFENesin 10 ML UDC (200MG/10ML) GT ×2 (06:22→18:20)
[2018-02-15 06:23] VITALS: PULSE 102
[2018-02-15] MEDS: Iron Polysaccharide Complex 150 MG CAPSULE PO (06:23)
[2018-02-15] MEDS: Metoprolol Tartrate 50 MG Tablet 150 MG PO ×3 (06:23→21:16)
[2018-02-15] MEDS: Senna/Docusate Sodium 1 Tablet 2 TABLET PO ×2 (06:23→18:24)
[2018-02-15] MEDS: Enoxaparin 40 MG/0.4 ML Syringe SC (06:23)
[2018-02-15 06:50] VITALS: PULSE 90; RESP 18; O2SAT 94
[2018-02-15 07:06] LABS: Bedside Glucose 158 mg/dL (70-110)
[2018-02-15] MEDS: Insulin Lispro 100 UNIT/ML INSULN.PEN 7 UNIT SC ×3 (08:13→18:18)
[2018-02-15] MEDS: Smz/Tmp Ds Tablet 1 TABLET PO ×2 (08:14→18:17)
[2018-02-15] MEDS: Magnesium Oxide 400 MG Tablet PO ×3 (08:14→18:19)
[2018-02-15] MEDS: Ascorbic Acid 500 MG Tablet 1000 MG PO (08:15)
[2018-02-15 11:11] LABS: Bedside Glucose 264 mg/dL (70-110)
--- NOTE | 2018-02-15 11:32 | CASEMGMT ---
Insurance Clinical information faxed. Pending continued stay approval at this time. Auth#[id number] Nora JERONIMO, STOREHOUSE CLERK
--- NOTE | 2018-02-15 13:39 | MDS.RN ---
Information for the mds was obtained from review of the clinical record, interview of resident, staff, and direct observation of resident's care.
[2018-02-15 14:30] VITALS: BP 122/56; PULSE 93
--- NOTE | 2018-02-15 15:31 | NURSING ---
wound photo: sacrum
[2018-02-15 15:37] VITALS: BP 130/70; PULSE 97; RESP 18; TEMP 36.3; O2SAT 96
[2018-02-15 17:01] LABS: Bedside Glucose 164 mg/dL (70-110)
[2018-02-15] MEDS: oxyCODONE 5 MG Tablet PO (21:13)
[2018-02-15] MEDS: 0.9% NaCl IVPB Med Flush (250 mL) 15 ML IV (21:14)
[2018-02-15 21:16] VITALS: BP 129/65; PULSE 94
[2018-02-15] MEDS: Pramipexole Di-HCl 0.25 MG Tablet PO (21:16)
[2018-02-15] MEDS: Tamsulosin HCl 0.4 MG Capsule PO (21:16)
[2018-02-15] MEDS: Pravastatin 80 MG Tablet PO (21:16)
[2018-02-15 21:26] LABS: Bedside Glucose 190 mg/dL (70-110)
[2018-02-16 04:51] VITALS: BP 141/77; PULSE 90
[2018-02-16] MEDS: Metoprolol Tartrate 50 MG Tablet 150 MG PO ×3 (04:51→21:04)
[2018-02-16] MEDS: oxyCODONE 5 MG Tablet PO ×2 (04:51→16:45)
[2018-02-16] MEDS: Amantadine 100 MG Capsule PO (04:52)
[2018-02-16] MEDS: guaiFENesin 10 ML UDC (200MG/10ML) GT ×2 (04:52→16:47)
[2018-02-16] MEDS: Furosemide 40 MG Tablet PO ×2 (04:52→12:59)
[2018-02-16] MEDS: Polyethylene Glycol 3350 17 GM PACKET PO (04:53)
[2018-02-16] MEDS: Senna/Docusate Sodium 1 Tablet 2 TABLET PO ×2 (04:53→16:48)
[2018-02-16] MEDS: Enoxaparin 40 MG/0.4 ML Syringe SC (04:53)
[2018-02-16] MEDS: Pantoprazole Sodium 40 MG Tablet PO (04:53)
[2018-02-16] MEDS: Iron Polysaccharide Complex 150 MG CAPSULE PO (04:54)
[2018-02-16] MEDS: Linezolid 600 MG Tablet PO ×2 (04:54→16:47)
[2018-02-16] MEDS: Piperacil/Tazobactam 3.375 GM Q8 PREMIX IV ×3 (05:01→21:00)
[2018-02-16] MEDS: BACITRACIN 15 GM Tube 1 APPLIC TOPICAL ×2 (05:05→16:48)
[2018-02-16] MEDS: Fluticasone 0.05% 1 SPRAY NASAL.SRY 2 SPRAY NASAL (05:05)
[2018-02-16] MEDS: Nystatin Powder 15gm Bottle 1 APPLIC TOPICAL ×2 (05:07→21:11)
[2018-02-16 06:55] LABS: Bedside Glucose 159 mg/dL (70-110)
[2018-02-16] MEDS: Smz/Tmp Ds Tablet 1 TABLET PO ×2 (08:53→16:48)
[2018-02-16] MEDS: Ascorbic Acid 500 MG Tablet 1000 MG PO (08:53)
[2018-02-16] MEDS: Magnesium Oxide 400 MG Tablet PO ×3 (08:53→16:47)
[2018-02-16] MEDS: Insulin Lispro 100 UNIT/ML INSULN.PEN 7 UNIT SC ×3 (08:54→17:45)
--- NOTE | 2018-02-16 10:14 | NURSING ---
LIQUID POTASSIUM GIVEN VIA PEG TUBE. PT DOES NOT LIKE TO DRINK IT. FLUSHED WITH 100CC FOLLOWING ADMINISTRATION. PT TOLERATED WELL. RESTING IN BED, HOB ELEVATED. SPEECH WORKING WITH PT.
[2018-02-16 11:31] LABS: Bedside Glucose 269 mg/dL (70-110)
[2018-02-16 12:59] VITALS: BP 127/73; PULSE 91
[2018-02-16] MEDS: 0.9% NaCl PICC Flush IV ×2 (13:23→21:11)
[2018-02-16 16:00] VITALS: BP 126/62; PULSE 72; RESP 16; TEMP 36.2; O2SAT 98
--- NOTE | 2018-02-16 16:27 | CASEMGMT ---
Brief interview for mental status (BIMS) and resident mood interview (PHQ-9) completed on this day. BIMS score 01/20. PHQ-9 score
[2018-02-16 16:51] LABS: Bedside Glucose 118 mg/dL (70-110)
[2018-02-16 19:25] VITALS: PULSE 89; RESP 18
[2018-02-16] MEDS: Ipratropium/Albuterol Sulfate 3 ML AMPUL.NEB INHALATION (19:25)
[2018-02-16] MEDS: 0.9% NaCl IVPB Med Flush (250 mL) 15 ML IV (21:00)
[2018-02-16 21:04] VITALS: BP 135/75; PULSE 87
[2018-02-16] MEDS: Pravastatin 80 MG Tablet PO (21:04)
[2018-02-16] MEDS: Tamsulosin HCl 0.4 MG Capsule PO (21:04)
[2018-02-16] MEDS: Pramipexole Di-HCl 0.25 MG Tablet PO (21:05)
[2018-02-17] VITALS (7 sets, daily range): BP systolic 118–155; BP diastolic 65–79; PULSE 78–96; RESP 18; TEMP 35.2; O2SAT 98
[2018-02-17] MEDS: Furosemide 40 MG Tablet PO ×2 (04:57→13:39)
[2018-02-17] MEDS: Metoprolol Tartrate 50 MG Tablet 150 MG PO ×3 (04:57→21:55)
[2018-02-17] MEDS: guaiFENesin 10 ML UDC (200MG/10ML) GT ×2 (04:57→18:45)
[2018-02-17] MEDS: Linezolid 600 MG Tablet PO ×2 (04:58→17:35)
[2018-02-17] MEDS: Enoxaparin 40 MG/0.4 ML Syringe SC (04:58)
[2018-02-17] MEDS: Pantoprazole Sodium 40 MG Tablet PO (04:58)
[2018-02-17] MEDS: Amantadine 100 MG Capsule PO (04:58)
[2018-02-17] MEDS: Senna/Docusate Sodium 1 Tablet 2 TABLET PO ×2 (04:59→17:35)
[2018-02-17] MEDS: Iron Polysaccharide Complex 150 MG CAPSULE PO (04:59)
[2018-02-17] MEDS: Piperacil/Tazobactam 3.375 GM Q8 PREMIX IV ×3 (05:06→21:53)
[2018-02-17] MEDS: 0.9% NaCl PICC Flush IV ×4 (05:06→21:54)
[2018-02-17] MEDS: BACITRACIN 15 GM Tube 1 APPLIC TOPICAL ×2 (05:13→18:42)
[2018-02-17] MEDS: Fluticasone 0.05% 1 SPRAY NASAL.SRY 2 SPRAY NASAL (05:14)
[2018-02-17] MEDS: Nystatin Powder 15gm Bottle 1 APPLIC TOPICAL ×2 (05:15→22:04)
[2018-02-17 05:26] LABS: Absolute Lymphocyte Count 1.89 X10^3/ul (0.83-4.51); Absolute Neutrophil Count 3.9 X10^3/uL (2.0-7.7); Basophil# 0.04 X10^3/uL; Basophil% 0.6 % (0-1); Eosinophil# 0.18 X10^3/uL; Eosinophils% 2.7 % (0-5); Hematocrit 33.6 % (40-54); Hemoglobin 10.6 g/dl (13.0-16.5); Lymphocyte # 1.89 X10^3/ul (4.0); Mean Corp Hgb Conc 31.5 g/gl (32-36); Mean Corpuscular Hgb 30.3 pg (27.0-32.0); Mean Platelet Vol. 9.6 fl (6.2-12.0); Monocyte# 0.72 X10^3/uL; Monocyte% 10.7 % (0-10); Neutrophil # 3.92 X10^3/uL (2.7-7.7); Platelet Count 197 K/mm3 (150-450); RBC Distribution Width CV 16.4 % (11.6-14.6); RBC Distribution Width SD 56.3 fl (35.1-43.9); White Blood Count 6.8 K/mm3 (4.4-11.0)
[2018-02-17 05:34] LABS: POSITIVE COUNT NO; POSITIVE DIFFERENTIAL NO; POSITIVE MORPHOLOGY NO
[2018-02-17 05:38] LABS: Anion Gap 10 (5-15); BUN 18 mg/dL (7-18); BUN/Creat Ratio 25.8 RATIO (10-20); Calcium,Total 9.5 mg/dL (8.5-10.1); Chloride 101 mmol/L (98-107); EST Glomerular Filtration Rate 120 mL/min (>60); Est Glom Filt Rate - Afr Amer 145 mL/min (>60); Estimated Creatinine Clearance 81.01 ml/min; Glucose 139 mg/dL (74-106); Sodium Level 139 mmol/L (136-145)
[2018-02-17 07:01] LABS: Bedside Glucose 161 mg/dL (70-110)
[2018-02-17 07:11] LABS: Bedside Glucose 221 mg/dL (70-110)
[2018-02-17] MEDS: Insulin Lispro 100 UNIT/ML INSULN.PEN 7 UNIT SC ×3 (07:35→17:46)
[2018-02-17] MEDS: Budesonide Respules 0.5 MG/2 ML AMPUL.NEB. INHALATION ×2 (07:40→19:12)
[2018-02-17] MEDS: Magnesium Oxide 400 MG Tablet PO ×3 (08:58→17:35)
[2018-02-17] MEDS: Smz/Tmp Ds Tablet 1 TABLET PO ×2 (08:58→17:35)
[2018-02-17] MEDS: Ascorbic Acid 500 MG Tablet 1000 MG PO (08:58)
--- NOTE | 2018-02-17 09:31 | NURSING ---
Infectious disease consulted on pt coccyx wound infection for f/u. pt needs stop date on IV zosyn.
--- NOTE | 2018-02-17 09:44 | CASEMGMT ---
Addendum entered by Nora Adhikari 02/17/18 12:32: Resident with approximately 40 skilled days left. Original Note: Insurance Continued stay approved with next update due 02/23/18. Auth#[id number] Nora JERONIMO, BREAKDOWN MAN
[2018-02-17] MEDS: oxyCODONE 5 MG Tablet PO ×2 (10:47→17:50)
[2018-02-17 11:51] LABS: Bedside Glucose 227 mg/dL (70-110)
--- NOTE | 2018-02-17 12:36 | PCM.PN.ID ---
Subjective: Feeling ok, no fever, no n/v/d, no rash with iv abx, no problems with picc - Physical Exam General: Alert, Cooperative, No apparent distress Lungs: Clear to auscultation, Normal air movement Cardiovascular: Regular rate, Regular Rhythm Abdomen: Soft, Non Tender, Non-Distended Skin: No rashes, Ulcer/ Wound - wound vac in place Vital Signs Temp Pulse Resp BP Pulse Ox 97.1 F L 81 18 118/65 98 02/16/18 16:00 02/17/18 07:40 02/17/18 07:40 02/17/18 04:57 02/16/18 16:00 Oxygen Flow Rate (L/min) 5 Oxygen Delivery Method Room Air Weight: 106.197 kg Body Mass Index (BMI) 33.0 Finger Stick Blood Glucose 250 Intake and Output for Last 24 Hours 02/15/18 02/16/18 02/17/18 23:59 23:59 23:59 Intake Total 580 / 580 700 / 700 240 / 240 Output Total 3350 / 3350 2750 / 2750 1050 / 1050 Balance -2770 / -2770 -2050 / -2050 -810 / -810 Laboratory Tests Past 24 Hrs 02/17/18 02/17/18 05:00 05:00 WBC 6.8 RBC 3.50 L Hgb 10.6 L Hct 33.6 L MCV 96.0 H MCH 30.3 MCHC 31.5 L RDW 16.4 H RDW Differential 56.3 H Plt Count 197 MPV 9.6 Immature Gran % (Auto) 0.000 Neut % (Auto) 58.0 Lymph % (Auto) 28.0 [place] % (Auto) 10.7 H Eos % (Auto) 2.7 Baso % (Auto) 0.6 Absolute Neuts (auto) 3.9 Absolute Lymphs (auto) 1.89 Total Counted Not Reportable Sodium 139 Potassium 4.0 Chloride 101 Carbon Dioxide 28.0 Anion Gap 10 BUN 18 Creatinine 0.70 Estim Creat Clear Calc 81.01 Est GFR (MDRD) Af Amer 145 Est GFR (MDRD) Non-Af 120 BUN/Creatinine Ratio 25.8 H Glucose 139 H Calcium 9.5 POC Glucose 02/17/18 02/17/18 02/16/18 11:37 06:24 20:19 POC Glucose 227 H 161 H 221 H 02/16/18 16:45 POC Glucose 118 H Medical Necessity - Tobacco Use Smoking Status: Former smoker Tobacco Use: Cigarettes Route of nutrition/ use of supplements: [] Nutritional Intake: [] IV Site: [] Lane Catheter: [] - Assessment/Plan Antibiotics: [] Assessment/Plan: [] Sacral osteo - s/p OR 01/[address] Juarez. Micro (+) for mssa, VRE, ecoli, MDR serratia and others. On zosyn, bactrim, and linezolid for planned 6 week course. Reviewed labs, no signs of side effects. Planned stop date 03/05/18. Weekly bmp, cbc, and esr while on these abx. Will follow.
[2018-02-17 16:55] LABS: Bedside Glucose 193 mg/dL (70-110)
[2018-02-17 20:51] LABS: Bedside Glucose 208 mg/dL (70-110)
[2018-02-17] MEDS: Zolpidem Tartrate 5 MG Tablet PO (21:52)
[2018-02-17] MEDS: Acetaminophen 500 MG Tablet 1000 MG PO (21:52)
[2018-02-17] MEDS: 0.9% NaCl IVPB Med Flush (250 mL) 15 ML IV (21:53)
[2018-02-17] MEDS: Pramipexole Di-HCl 0.25 MG Tablet PO (21:55)
[2018-02-17] MEDS: Pravastatin 80 MG Tablet PO (21:55)
[2018-02-17] MEDS: Tamsulosin HCl 0.4 MG Capsule PO (21:56)
[2018-02-18] MEDS: oxyCODONE 5 MG Tablet PO ×2 (05:21→12:22)
[2018-02-18] MEDS: Piperacil/Tazobactam 3.375 GM Q8 PREMIX IV ×3 (05:21→21:55)
[2018-02-18 05:22] VITALS: BP 145/99; PULSE 96
[2018-02-18] MEDS: Senna/Docusate Sodium 1 Tablet 2 TABLET PO ×2 (05:22→16:42)
[2018-02-18] MEDS: Linezolid 600 MG Tablet PO ×2 (05:22→16:41)
[2018-02-18] MEDS: Metoprolol Tartrate 50 MG Tablet 150 MG PO ×3 (05:22→22:01)
[2018-02-18] MEDS: guaiFENesin 10 ML UDC (200MG/10ML) GT ×2 (05:22→16:40)
[2018-02-18] MEDS: Iron Polysaccharide Complex 150 MG CAPSULE PO (05:23)
[2018-02-18] MEDS: Amantadine 100 MG Capsule PO (05:23)
[2018-02-18] MEDS: Enoxaparin 40 MG/0.4 ML Syringe SC (05:24)
[2018-02-18] MEDS: Furosemide 40 MG Tablet PO ×2 (05:36→13:38)
[2018-02-18] MEDS: Fluticasone 0.05% 1 SPRAY NASAL.SRY 2 SPRAY NASAL (05:36)
[2018-02-18] MEDS: BACITRACIN 15 GM Tube 1 APPLIC TOPICAL ×2 (05:36→16:44)
[2018-02-18] MEDS: Nystatin Powder 15gm Bottle 1 APPLIC TOPICAL ×2 (05:37→22:02)
[2018-02-18] MEDS: Pantoprazole Sodium 40 MG Tablet PO (05:38)
[2018-02-18] MEDS: 0.9% NaCl PICC Flush IV ×3 (05:38→21:50)
[2018-02-18 07:01] LABS: Bedside Glucose 172 mg/dL (70-110)
[2018-02-18 07:02] VITALS: PULSE 88; RESP 16; O2SAT 95
[2018-02-18] MEDS: Budesonide Respules 0.5 MG/2 ML AMPUL.NEB. INHALATION ×2 (07:02→19:20)
[2018-02-18] MEDS: Smz/Tmp Ds Tablet 1 TABLET PO ×2 (08:42→16:43)
[2018-02-18] MEDS: Magnesium Oxide 400 MG Tablet PO ×3 (08:42→16:40)
[2018-02-18] MEDS: Ascorbic Acid 500 MG Tablet 1000 MG PO (08:42)
[2018-02-18] MEDS: Insulin Lispro 100 UNIT/ML INSULN.PEN 7 UNIT SC ×3 (08:43→17:45)
[2018-02-18 11:16] LABS: Bedside Glucose 204 mg/dL (70-110)
[2018-02-18 13:43] VITALS: BP 124/84; PULSE 110
[2018-02-18 15:58] VITALS: BP 134/85; PULSE 84; RESP 18; TEMP 36.2; O2SAT 96
[2018-02-18] MEDS: Acetaminophen 500 MG Tablet 1000 MG PO (16:37)
[2018-02-18 17:00] LABS: Bedside Glucose 214 mg/dL (70-110)
[2018-02-18 19:20] VITALS: PULSE 91; RESP 16
[2018-02-18 21:05] LABS: Bedside Glucose 224 mg/dL (70-110)
[2018-02-18] MEDS: 0.9% NaCl IVPB Med Flush (250 mL) 15 ML IV (21:50)
[2018-02-18 22:01] VITALS: BP 100/63; PULSE 89
[2018-02-18] MEDS: Pramipexole Di-HCl 0.25 MG Tablet PO (22:02)
[2018-02-18] MEDS: Pravastatin 80 MG Tablet PO (22:02)
[2018-02-18] MEDS: Tamsulosin HCl 0.4 MG Capsule PO (22:02)
[2018-02-19] MEDS: guaiFENesin 10 ML UDC (200MG/10ML) GT ×2 (04:49→16:56)
[2018-02-19] MEDS: Furosemide 40 MG Tablet PO ×2 (04:49→12:39)
[2018-02-19] MEDS: Enoxaparin 40 MG/0.4 ML Syringe SC (04:49)
[2018-02-19 04:51] VITALS: BP 118/67; PULSE 80
[2018-02-19] MEDS: Pantoprazole Sodium 40 MG Tablet PO (04:51)
[2018-02-19] MEDS: Polyethylene Glycol 3350 17 GM PACKET PO (04:51)
[2018-02-19] MEDS: Amantadine 100 MG Capsule PO (04:51)
[2018-02-19] MEDS: Senna/Docusate Sodium 1 Tablet 2 TABLET PO ×2 (04:51→16:58)
[2018-02-19] MEDS: Iron Polysaccharide Complex 150 MG CAPSULE PO (04:51)
[2018-02-19] MEDS: Metoprolol Tartrate 50 MG Tablet 150 MG PO ×3 (04:51→22:58)
[2018-02-19] MEDS: Linezolid 600 MG Tablet PO ×2 (04:51→16:58)
[2018-02-19] MEDS: BACITRACIN 15 GM Tube 1 APPLIC TOPICAL ×2 (04:52→17:09)
[2018-02-19] MEDS: Nystatin Powder 15gm Bottle 1 APPLIC TOPICAL ×2 (04:55→22:55)
[2018-02-19] MEDS: Fluticasone 0.05% 1 SPRAY NASAL.SRY 2 SPRAY NASAL (04:56)
[2018-02-19] MEDS: Piperacil/Tazobactam 3.375 GM Q8 PREMIX IV ×3 (05:03→22:49)
[2018-02-19 06:55] LABS: Bedside Glucose 158 mg/dL (70-110)
[2018-02-19] MEDS: Magnesium Oxide 400 MG Tablet PO ×3 (10:55→16:55)
[2018-02-19] MEDS: Ascorbic Acid 500 MG Tablet 1000 MG PO (10:55)
[2018-02-19] MEDS: Smz/Tmp Ds Tablet 1 TABLET PO ×2 (10:56→16:57)
[2018-02-19 11:31] LABS: Bedside Glucose 204 mg/dL (70-110)
[2018-02-19] MEDS: Insulin Lispro 100 UNIT/ML INSULN.PEN 7 UNIT SC ×2 (12:37→18:44)
[2018-02-19 12:42] VITALS: BP 136/74; PULSE 93
[2018-02-19] MEDS: 0.9% NaCl PICC Flush IV ×2 (13:41→22:49)
--- NOTE | 2018-02-19 14:32 | NURSING ---
Colostomy appliance changed. there was a moderate amount of thick brown stool noted in the appliance. peristomal skin is intact. sutures remains. stoma is pink, well budded, and moist. cleansed peristomal skin with warm water. pat dry. applied a new 2 piece [place] flat appliance with a small amount of stoma paste. pt tolerated well.
[2018-02-19 15:29] VITALS: BP 95/61; PULSE 80; RESP 18; TEMP 36.3; O2SAT 98
[2018-02-19] MEDS: oxyCODONE 5 MG Tablet PO (17:08)
[2018-02-19 17:10] LABS: Bedside Glucose 137 mg/dL (70-110)
[2018-02-19 19:35] VITALS: PULSE 88; RESP 16
[2018-02-19] MEDS: Budesonide Respules 0.5 MG/2 ML AMPUL.NEB. INHALATION (19:35)
[2018-02-19 21:21] LABS: Bedside Glucose 204 mg/dL (70-110)
[2018-02-19] MEDS: 0.9% NaCl IVPB Med Flush (250 mL) 15 ML IV (22:49)
[2018-02-19 22:58] VITALS: PULSE 92
[2018-02-19] MEDS: Pramipexole Di-HCl 0.25 MG Tablet PO (22:58)
[2018-02-19] MEDS: Tamsulosin HCl 0.4 MG Capsule PO (22:58)
[2018-02-19] MEDS: Pravastatin 80 MG Tablet PO (22:58)
[2018-02-20] MEDS: guaiFENesin 10 ML UDC (200MG/10ML) GT ×2 (05:38→17:02)
[2018-02-20] MEDS: Amantadine 100 MG Capsule PO (05:38)
[2018-02-20] MEDS: Furosemide 40 MG Tablet PO ×2 (05:38→14:01)
[2018-02-20] MEDS: Enoxaparin 40 MG/0.4 ML Syringe SC (05:38)
[2018-02-20] MEDS: Linezolid 600 MG Tablet PO ×2 (05:38→17:03)
[2018-02-20] MEDS: Senna/Docusate Sodium 1 Tablet 2 TABLET PO ×2 (05:38→17:04)
[2018-02-20] MEDS: BACITRACIN 15 GM Tube 1 APPLIC TOPICAL ×2 (05:38→16:58)
[2018-02-20] MEDS: Iron Polysaccharide Complex 150 MG CAPSULE PO (05:38)
[2018-02-20] MEDS: Fluticasone 0.05% 1 SPRAY NASAL.SRY 2 SPRAY NASAL (05:38)
[2018-02-20] MEDS: Pantoprazole Sodium 40 MG Tablet PO (05:38)
[2018-02-20 05:39] VITALS: PULSE 91
[2018-02-20] MEDS: Metoprolol Tartrate 50 MG Tablet 150 MG PO ×3 (05:39→21:19)
[2018-02-20] MEDS: 0.9% NaCl PICC Flush IV ×3 (05:39→21:19)
[2018-02-20] MEDS: Nystatin Powder 15gm Bottle 1 APPLIC TOPICAL ×2 (05:39→21:32)
[2018-02-20] MEDS: Piperacil/Tazobactam 3.375 GM Q8 PREMIX IV ×3 (05:39→21:19)
[2018-02-20 06:48] VITALS: PULSE 71; RESP 20; O2SAT 100
[2018-02-20] MEDS: Budesonide Respules 0.5 MG/2 ML AMPUL.NEB. INHALATION (06:48)
[2018-02-20 07:11] LABS: Bedside Glucose 199 mg/dL (70-110)
[2018-02-20] MEDS: Insulin Lispro 100 UNIT/ML INSULN.PEN 7 UNIT SC ×3 (08:06→17:54)
[2018-02-20] MEDS: Smz/Tmp Ds Tablet 1 TABLET PO ×2 (08:06→17:05)
[2018-02-20] MEDS: Magnesium Oxide 400 MG Tablet PO ×3 (08:07→17:03)
[2018-02-20] MEDS: Ascorbic Acid 500 MG Tablet 1000 MG PO (08:07)
[2018-02-20] MEDS: oxyCODONE 5 MG Tablet PO (09:20)
[2018-02-20 10:55] LABS: Bedside Glucose 256 mg/dL (70-110)
[2018-02-20 14:01] VITALS: BP 134/49; PULSE 103
[2018-02-20 16:00] VITALS: BP 128/62; PULSE 84; RESP 20; TEMP 36.4; O2SAT 99
[2018-02-20 17:21] LABS: Bedside Glucose 182 mg/dL (70-110)
[2018-02-20 20:56] LABS: Bedside Glucose 183 mg/dL (70-110)
[2018-02-20] MEDS: Pravastatin 80 MG Tablet PO (21:18)
[2018-02-20 21:19] VITALS: PULSE 98
[2018-02-20] MEDS: Tamsulosin HCl 0.4 MG Capsule PO (21:19)
[2018-02-20] MEDS: Pramipexole Di-HCl 0.25 MG Tablet PO (21:19)
[2018-02-20] MEDS: 0.9% NaCl IVPB Med Flush (250 mL) 15 ML IV (21:19)
[2018-02-21] MEDS: Zolpidem Tartrate 5 MG Tablet PO (00:29)
[2018-02-21] MEDS: Nystatin Powder 15gm Bottle 1 APPLIC TOPICAL ×2 (05:42→21:54)
[2018-02-21] MEDS: BACITRACIN 15 GM Tube 1 APPLIC TOPICAL ×2 (05:43→19:02)
[2018-02-21] MEDS: Piperacil/Tazobactam 3.375 GM Q8 PREMIX IV ×3 (05:45→21:50)
[2018-02-21] MEDS: 0.9% NaCl PICC Flush IV ×4 (05:45→21:51)
[2018-02-21] MEDS: guaiFENesin 10 ML UDC (200MG/10ML) GT ×2 (05:48→18:54)
[2018-02-21] MEDS: Linezolid 600 MG Tablet PO ×2 (05:48→18:01)
[2018-02-21] MEDS: Enoxaparin 40 MG/0.4 ML Syringe SC (05:48)
[2018-02-21] MEDS: Senna/Docusate Sodium 1 Tablet 2 TABLET PO ×2 (05:48→18:01)
[2018-02-21] MEDS: Iron Polysaccharide Complex 150 MG CAPSULE PO (05:48)
[2018-02-21 05:49] VITALS: BP 131/64; PULSE 94
[2018-02-21] MEDS: Metoprolol Tartrate 50 MG Tablet 150 MG PO ×3 (05:49→22:02)
[2018-02-21] MEDS: Pantoprazole Sodium 40 MG Tablet PO (05:49)
[2018-02-21] MEDS: Furosemide 40 MG Tablet PO ×2 (05:49→15:39)
[2018-02-21] MEDS: Fluticasone 0.05% 1 SPRAY NASAL.SRY 2 SPRAY NASAL (05:50)
[2018-02-21] MEDS: Amantadine 100 MG Capsule PO (05:51)
[2018-02-21 07:11] LABS: Bedside Glucose 158 mg/dL (70-110)
[2018-02-21] MEDS: Smz/Tmp Ds Tablet 1 TABLET PO ×2 (07:40→18:01)
[2018-02-21] MEDS: Ascorbic Acid 500 MG Tablet 1000 MG PO (07:40)
[2018-02-21] MEDS: Insulin Lispro 100 UNIT/ML INSULN.PEN 7 UNIT SC ×3 (07:40→18:03)
[2018-02-21] MEDS: Magnesium Oxide 400 MG Tablet PO ×3 (07:40→18:01)
[2018-02-21] MEDS: oxyCODONE 5 MG Tablet PO (08:51)
[2018-02-21 10:50] LABS: Bedside Glucose 209 mg/dL (70-110)
[2018-02-21 15:27] VITALS: BP 118/68; PULSE 104; RESP 18; TEMP 36.2; O2SAT 98
[2018-02-21 15:39] VITALS: PULSE 104
[2018-02-21 15:49] VITALS: PULSE 101; O2SAT 97
[2018-02-21 17:16] LABS: Bedside Glucose 168 mg/dL (70-110)
[2018-02-21 19:03] VITALS: PULSE 86; RESP 18
[2018-02-21] MEDS: Budesonide Respules 0.5 MG/2 ML AMPUL.NEB. INHALATION (19:03)
--- NOTE | 2018-02-21 20:01 | NURSING ---
Addendum entered by Julissa West 02/21/18 22:34: F/C removed, 10ccs of fluid withdrawn from balloon. Pt tolerated well. FR16 inserted at 2215. Sterile technique maintained. Pt tolerated well. Will continue to monitor and asses. Original Note: Dr Luis aware of F/C leaking, new order to change catheter.
[2018-02-21 20:56] LABS: Bedside Glucose 154 mg/dL (70-110)
[2018-02-21] MEDS: 0.9% NaCl IVPB Med Flush (250 mL) 15 ML IV (21:45)
[2018-02-21 22:02] VITALS: BP 122/78; PULSE 85
[2018-02-21] MEDS: Pramipexole Di-HCl 0.25 MG Tablet PO (22:02)
[2018-02-21] MEDS: Tamsulosin HCl 0.4 MG Capsule PO (22:02)
[2018-02-21] MEDS: Pravastatin 80 MG Tablet PO (22:02)
[2018-02-22 04:57] VITALS: BP 144/70; PULSE 91
[2018-02-22] MEDS: Amantadine 100 MG Capsule PO (04:57)
[2018-02-22] MEDS: Fluticasone 0.05% 1 SPRAY NASAL.SRY 2 SPRAY NASAL (04:57)
[2018-02-22] MEDS: Metoprolol Tartrate 50 MG Tablet 150 MG PO ×3 (04:57→22:07)
[2018-02-22] MEDS: Furosemide 40 MG Tablet PO ×2 (04:57→13:10)
[2018-02-22] MEDS: Polyethylene Glycol 3350 17 GM PACKET PO (04:57)
[2018-02-22] MEDS: Linezolid 600 MG Tablet PO ×2 (04:57→17:09)
[2018-02-22] MEDS: guaiFENesin 10 ML UDC (200MG/10ML) GT ×2 (04:58→17:09)
[2018-02-22] MEDS: Iron Polysaccharide Complex 150 MG CAPSULE PO (04:58)
[2018-02-22] MEDS: Pantoprazole Sodium 40 MG Tablet PO (04:58)
[2018-02-22] MEDS: BACITRACIN 15 GM Tube 1 APPLIC TOPICAL ×2 (04:58→13:10)
[2018-02-22] MEDS: Nystatin Powder 15gm Bottle 1 APPLIC TOPICAL ×2 (04:58→22:08)
[2018-02-22] MEDS: Enoxaparin 40 MG/0.4 ML Syringe SC (04:58)
[2018-02-22] MEDS: Senna/Docusate Sodium 1 Tablet 2 TABLET PO ×2 (04:58→17:10)
[2018-02-22] MEDS: Piperacil/Tazobactam 3.375 GM Q8 PREMIX IV ×3 (04:59→22:32)
[2018-02-22 06:50] VITALS: PULSE 71; RESP 16; O2SAT 94
[2018-02-22 08:16] LABS: Bedside Glucose 171 mg/dL (70-110)
[2018-02-22] MEDS: Insulin Lispro 100 UNIT/ML INSULN.PEN 7 UNIT SC ×3 (08:54→18:15)
[2018-02-22] MEDS: Magnesium Oxide 400 MG Tablet PO ×3 (08:56→17:10)
[2018-02-22] MEDS: Ascorbic Acid 500 MG Tablet 1000 MG PO (08:56)
[2018-02-22] MEDS: Smz/Tmp Ds Tablet 1 TABLET PO ×2 (08:56→17:10)
[2018-02-22] MEDS: oxyCODONE 5 MG Tablet PO ×2 (09:05→22:23)
[2018-02-22 11:31] LABS: Bedside Glucose 239 mg/dL (70-110)
[2018-02-22 13:10] VITALS: BP 122/77; PULSE 108
[2018-02-22 15:41] VITALS: BP 102/57; PULSE 64; RESP 18; TEMP 36.1; O2SAT 93
--- NOTE | 2018-02-22 15:56 | NURSING ---
wound photo: sacrum
[2018-02-22 17:01] LABS: Bedside Glucose 172 mg/dL (70-110)
[2018-02-22] MEDS: Budesonide Respules 0.5 MG/2 ML AMPUL.NEB. INHALATION (20:03)
[2018-02-22 20:04] VITALS: PULSE 70; RESP 18
[2018-02-22 21:11] LABS: Bedside Glucose 154 mg/dL (70-110)
[2018-02-22 22:07] VITALS: BP 100/63; PULSE 87
[2018-02-22] MEDS: Pramipexole Di-HCl 0.25 MG Tablet PO (22:08)
[2018-02-22] MEDS: Pravastatin 80 MG Tablet PO (22:08)
[2018-02-22] MEDS: 0.9% NaCl IVPB Med Flush (250 mL) 15 ML IV (22:16)
[2018-02-22] MEDS: Tamsulosin HCl 0.4 MG Capsule PO (22:16)
[2018-02-23] MEDS: Piperacil/Tazobactam 3.375 GM Q8 PREMIX IV ×3 (04:59→21:10)
[2018-02-23] MEDS: Nystatin Powder 15gm Bottle 1 APPLIC TOPICAL ×2 (05:00→21:18)
[2018-02-23] MEDS: Fluticasone 0.05% 1 SPRAY NASAL.SRY 2 SPRAY NASAL (05:02)
[2018-02-23] MEDS: BACITRACIN 15 GM Tube 1 APPLIC TOPICAL ×2 (05:03→18:53)
[2018-02-23] MEDS: Enoxaparin 40 MG/0.4 ML Syringe SC (05:04)
[2018-02-23 05:05] VITALS: BP 104/58; PULSE 90
[2018-02-23] MEDS: Iron Polysaccharide Complex 150 MG CAPSULE PO (05:05)
[2018-02-23] MEDS: Amantadine 100 MG Capsule PO (05:05)
[2018-02-23] MEDS: Senna/Docusate Sodium 1 Tablet 2 TABLET PO ×2 (05:05→17:22)
[2018-02-23] MEDS: Furosemide 40 MG Tablet PO ×2 (05:05→13:33)
[2018-02-23] MEDS: Linezolid 600 MG Tablet PO (05:05)
[2018-02-23] MEDS: Polyethylene Glycol 3350 17 GM PACKET PO (05:05)
[2018-02-23] MEDS: Metoprolol Tartrate 50 MG Tablet 150 MG PO ×3 (05:05→21:22)
[2018-02-23] MEDS: guaiFENesin 10 ML UDC (200MG/10ML) GT ×2 (05:05→17:22)
[2018-02-23] MEDS: Pantoprazole Sodium 40 MG Tablet PO (05:05)
[2018-02-23 06:45] VITALS: PULSE 80; RESP 16; O2SAT 99
[2018-02-23] MEDS: Ipratropium/Albuterol Sulfate 3 ML AMPUL.NEB INHALATION (06:45)
[2018-02-23 06:55] LABS: Bedside Glucose 165 mg/dL (70-110)
[2018-02-23] MEDS: Smz/Tmp Ds Tablet 1 TABLET PO ×2 (08:45→17:22)
[2018-02-23] MEDS: Ascorbic Acid 500 MG Tablet 1000 MG PO (08:45)
[2018-02-23] MEDS: Magnesium Oxide 400 MG Tablet PO ×3 (08:45→17:22)
[2018-02-23] MEDS: Insulin Lispro 100 UNIT/ML INSULN.PEN 7 UNIT SC ×3 (08:46→17:23)
[2018-02-23] MEDS: oxyCODONE 5 MG Tablet PO ×2 (08:53→14:53)
--- NOTE | 2018-02-23 11:20 | PCM.PN.ID ---
Subjective: Feeling ok, no n/v/d, no fever. - Physical Exam General: Alert, Cooperative, No apparent distress Lungs: Clear to auscultation, Normal air movement Cardiovascular: Regular rate, Regular Rhythm Abdomen: Soft, Non Tender, Non-Distended Skin: No rashes - wound vac in place Vital Signs Temp Pulse Resp BP Pulse Ox 97.0 F L 80 16 104/58 L 99 02/22/18 15:41 02/23/18 06:45 02/23/18 06:45 02/23/18 05:05 02/23/18 06:45 Oxygen Flow Rate (L/min) 5 Oxygen Delivery Method Room Air Weight: 104.043 kg Body Mass Index (BMI) 33.0 Finger Stick Blood Glucose 250 Intake and Output for Last 24 Hours 02/21/18 02/22/18 02/23/18 23:59 23:59 23:59 Intake Total 720 / 720 960 / 960 240 / 240 Output Total 3650 / 3650 1900 / 1900 2049 / 2049 Balance -2930 / -2930 -940 / -940 -1810 / -1810 POC Glucose 02/23/18 02/22/18 02/22/18 06:26 21:05 16:55 POC Glucose 165 H 154 H 172 H 02/22/18 11:27 POC Glucose 239 H Medical Necessity - Tobacco Use Smoking Status: Former smoker Tobacco Use: Cigarettes Route of nutrition/ use of supplements: [] Nutritional Intake: [] IV Site: [] Lane Catheter: [] - Assessment/Plan Antibiotics: [] Assessment/Plan: [] Sacral osteo - s/p OR 01/[address] Juarez. Micro (+) for mssa, VRE, ecoli, MDR serratia and others. On zosyn, bactrim, and linezolid for planned 6 week course. Reviewed labs, no signs of side effects. Planned stop date 03/05/18. Weekly bmp, cbc, and esr while on these abx. Will follow.
[2018-02-23 11:40] LABS: Bedside Glucose 276 mg/dL (70-110)
[2018-02-23 13:34] VITALS: BP 122/77; PULSE 107
[2018-02-23] MEDS: 0.9% NaCl IVPB Med Flush (250 mL) 15 ML IV ×2 (13:34→21:11)
--- NOTE | 2018-02-23 14:20 | CASEMGMT ---
Insurance Clinical update faxed. Will await continued stay determination. Auth # [id number] KANDACE Smith
[2018-02-23] MEDS: Acetaminophen 500 MG Tablet 1000 MG PO (14:52)
[2018-02-23 15:53] VITALS: BP 115/70; PULSE 54; RESP 18; TEMP 36; O2SAT 94
[2018-02-23 16:36] LABS: Bedside Glucose 240 mg/dL (70-110)
--- NOTE | 2018-02-23 16:47 | CASEMGMT ---
Insurance Continued stay approved. Update due 02/26/18 Auth # [id number] KANDACE Smith
[2018-02-23] MEDS: 0.9% NaCl PICC Flush IV (21:11)
[2018-02-23 21:21] LABS: Bedside Glucose 210 mg/dL (70-110)
[2018-02-23 21:22] VITALS: PULSE 95
[2018-02-23] MEDS: Pramipexole Di-HCl 0.25 MG Tablet PO (21:22)
[2018-02-23] MEDS: Tamsulosin HCl 0.4 MG Capsule PO (21:22)
[2018-02-23] MEDS: Pravastatin 80 MG Tablet PO (21:24)
[2018-02-24] MEDS: Piperacil/Tazobactam 3.375 GM Q8 PREMIX IV ×3 (05:39→21:11)
[2018-02-24] MEDS: 0.9% NaCl PICC Flush IV ×3 (05:39→21:12)
[2018-02-24] MEDS: Fluticasone 0.05% 1 SPRAY NASAL.SRY 2 SPRAY NASAL (05:40)
[2018-02-24] MEDS: BACITRACIN 15 GM Tube 1 APPLIC TOPICAL ×2 (05:40→13:53)
[2018-02-24] MEDS: Nystatin Powder 15gm Bottle 1 APPLIC TOPICAL ×2 (05:42→21:13)
[2018-02-24 05:43] VITALS: PULSE 99
[2018-02-24] MEDS: Senna/Docusate Sodium 1 Tablet 2 TABLET PO ×2 (05:43→17:43)
[2018-02-24] MEDS: Furosemide 40 MG Tablet PO ×2 (05:43→13:49)
[2018-02-24] MEDS: Pantoprazole Sodium 40 MG Tablet PO (05:43)
[2018-02-24] MEDS: Iron Polysaccharide Complex 150 MG CAPSULE PO (05:43)
[2018-02-24] MEDS: Metoprolol Tartrate 50 MG Tablet 150 MG PO ×3 (05:43→21:21)
[2018-02-24] MEDS: Enoxaparin 40 MG/0.4 ML Syringe SC (05:43)
[2018-02-24] MEDS: guaiFENesin 10 ML UDC (200MG/10ML) GT ×2 (05:43→17:43)
[2018-02-24] MEDS: Linezolid 600 MG Tablet PO ×2 (05:43→17:43)
[2018-02-24] MEDS: Amantadine 100 MG Capsule PO (05:44)
[2018-02-24 05:50] LABS: Absolute Lymphocyte Count 1.79 X10^3/ul (0.83-4.51); Absolute Neutrophil Count 3.6 X10^3/uL (2.0-7.7); Basophil# 0.02 X10^3/uL; Basophil% 0.3 % (0-1); Eosinophil# 0.16 X10^3/uL; Eosinophils% 2.5 % (0-5); Hemoglobin 10.6 g/dl (13.0-16.5); Lymphocyte # 1.79 X10^3/ul (4.0); Lymphocyte % 28.1 % (19-41); Mean Corp Hgb Conc 32.1 g/gl (32-36); Mean Corpuscular Hgb 31.3 pg (27.0-32.0); Mean Corpuscular Volume 97.3 fL (80-94); Mean Platelet Vol. 9.8 fl (6.2-12.0); Monocyte# 0.78 X10^3/uL; Monocyte% 12.3 % (0-10); Neutrophil % 56.6 % (47-70); Platelet Count 195 K/mm3 (150-450); RBC Distribution Width CV 16.4 % (11.6-14.6); RBC Distribution Width SD 55.6 fl (35.1-43.9); Red Blood Count 3.39 M/mm3 (4.6-6.2); White Blood Count 6.4 K/mm3 (4.4-11.0)
[2018-02-24 05:57] LABS: Anion Gap 8 (5-15); BUN 17 mg/dL (7-18); BUN/Creat Ratio 22.6 RATIO (10-20); Calcium,Total 9.3 mg/dL (8.5-10.1); Chloride 102 mmol/L (98-107); Creatinine, Serum 0.75 mg/dL (0.70-1.30); EST Glomerular Filtration Rate 110 mL/min (>60); Est Glom Filt Rate - Afr Amer 133 mL/min (>60); Estimated Creatinine Clearance 81.01 ml/min; Glucose 174 mg/dL (74-106); Potassium 4.1 mmol/L (3.5-5.1); Sodium Level 139 mmol/L (136-145)
[2018-02-24 06:02] LABS: POSITIVE COUNT NO; POSITIVE DIFFERENTIAL NO; POSITIVE MORPHOLOGY NO
[2018-02-24 07:20] VITALS: PULSE 88; RESP 18; O2SAT 97
[2018-02-24] MEDS: Budesonide Respules 0.5 MG/2 ML AMPUL.NEB. INHALATION (07:20)
[2018-02-24 07:21] LABS: Bedside Glucose 186 mg/dL (70-110)
[2018-02-24] MEDS: Insulin Lispro 100 UNIT/ML INSULN.PEN 7 UNIT SC ×3 (07:45→17:46)
[2018-02-24] MEDS: Smz/Tmp Ds Tablet 1 TABLET PO ×2 (07:51→17:43)
[2018-02-24] MEDS: Magnesium Oxide 400 MG Tablet PO ×3 (07:51→17:43)
[2018-02-24] MEDS: Ascorbic Acid 500 MG Tablet 1000 MG PO (07:51)
[2018-02-24] MEDS: oxyCODONE 5 MG Tablet PO (08:43)
[2018-02-24 09:09] LABS: Erythrocyte Sedimentation Rate 42 mm/hr (0-20)
[2018-02-24 11:31] LABS: Bedside Glucose 251 mg/dL (70-110)
[2018-02-24 13:49] VITALS: BP 125/75; PULSE 98
[2018-02-24 16:00] VITALS: BP 150/75; PULSE 74; RESP 18; TEMP 36.3; O2SAT 99
[2018-02-24 17:01] LABS: Bedside Glucose 156 mg/dL (70-110)
[2018-02-24] MEDS: 0.9% NaCl IVPB Med Flush (250 mL) 15 ML IV (21:12)
[2018-02-24 21:21] VITALS: PULSE 86
[2018-02-24] MEDS: Tamsulosin HCl 0.4 MG Capsule PO (21:21)
[2018-02-24] MEDS: Pramipexole Di-HCl 0.25 MG Tablet PO (21:21)
[2018-02-24] MEDS: Pravastatin 80 MG Tablet PO (21:21)
[2018-02-24 21:30] LABS: Bedside Glucose 113 mg/dL (70-110)
[2018-02-25] MEDS: Piperacil/Tazobactam 3.375 GM Q8 PREMIX IV ×3 (05:18→22:31)
[2018-02-25] MEDS: 0.9% NaCl PICC Flush IV ×3 (05:18→22:31)
[2018-02-25] MEDS: Fluticasone 0.05% 1 SPRAY NASAL.SRY 2 SPRAY NASAL (05:19)
[2018-02-25 05:20] VITALS: PULSE 91
[2018-02-25] MEDS: Pantoprazole Sodium 40 MG Tablet PO (05:20)
[2018-02-25] MEDS: Linezolid 600 MG Tablet PO ×2 (05:20→18:13)
[2018-02-25] MEDS: guaiFENesin 10 ML UDC (200MG/10ML) GT ×2 (05:20→18:13)
[2018-02-25] MEDS: Iron Polysaccharide Complex 150 MG CAPSULE PO (05:20)
[2018-02-25] MEDS: Senna/Docusate Sodium 1 Tablet 2 TABLET PO ×2 (05:20→18:13)
[2018-02-25] MEDS: BACITRACIN 15 GM Tube 1 APPLIC TOPICAL ×2 (05:20→13:10)
[2018-02-25] MEDS: Enoxaparin 40 MG/0.4 ML Syringe SC (05:20)
[2018-02-25] MEDS: Furosemide 40 MG Tablet PO ×2 (05:20→13:10)
[2018-02-25] MEDS: Nystatin Powder 15gm Bottle 1 APPLIC TOPICAL ×2 (05:20→22:37)
[2018-02-25] MEDS: Amantadine 100 MG Capsule PO (05:20)
[2018-02-25] MEDS: Metoprolol Tartrate 50 MG Tablet 150 MG PO ×3 (05:20→22:31)
[2018-02-25 06:40] VITALS: PULSE 78; RESP 16; O2SAT 93
[2018-02-25] MEDS: Budesonide Respules 0.5 MG/2 ML AMPUL.NEB. INHALATION (06:45)
[2018-02-25 07:06] LABS: Bedside Glucose 160 mg/dL (70-110)
[2018-02-25] MEDS: Smz/Tmp Ds Tablet 1 TABLET PO ×2 (07:59→18:13)
[2018-02-25] MEDS: Ascorbic Acid 500 MG Tablet 1000 MG PO (07:59)
[2018-02-25] MEDS: Magnesium Oxide 400 MG Tablet PO ×3 (07:59→18:14)
[2018-02-25] MEDS: Insulin Lispro 100 UNIT/ML INSULN.PEN 7 UNIT SC ×3 (08:01→18:17)
[2018-02-25 11:11] LABS: Bedside Glucose 325 mg/dL (70-110)
[2018-02-25] MEDS: oxyCODONE 5 MG Tablet PO (13:06)
[2018-02-25 13:09] VITALS: BP 129/74; PULSE 102
[2018-02-25 15:51] VITALS: BP 128/76; PULSE 81; RESP 16; TEMP 35.8; O2SAT 97
[2018-02-25 17:10] LABS: Bedside Glucose 218 mg/dL (70-110)
[2018-02-25 21:36] LABS: Bedside Glucose 222 mg/dL (70-110)
[2018-02-25 22:31] VITALS: BP 111/87; PULSE 99
[2018-02-25] MEDS: Tamsulosin HCl 0.4 MG Capsule PO (22:31)
[2018-02-25] MEDS: 0.9% NaCl IVPB Med Flush (250 mL) 15 ML IV (22:31)
[2018-02-25] MEDS: Pramipexole Di-HCl 0.25 MG Tablet PO (22:31)
[2018-02-25] MEDS: Pravastatin 80 MG Tablet PO (22:31)
[2018-02-25 23:02] VITALS: O2SAT 94
[2018-02-26] VITALS (7 sets, daily range): BP systolic 110–141; BP diastolic 65–76; PULSE 78–98; RESP 18; TEMP 35.8–36.4; O2SAT 93–97
[2018-02-26] MEDS: Senna/Docusate Sodium 1 Tablet 2 TABLET PO ×2 (05:34→17:27)
[2018-02-26] MEDS: Pantoprazole Sodium 40 MG Tablet PO (05:34)
[2018-02-26] MEDS: Furosemide 40 MG Tablet PO ×2 (05:34→14:11)
[2018-02-26] MEDS: Enoxaparin 40 MG/0.4 ML Syringe SC (05:35)
[2018-02-26] MEDS: guaiFENesin 10 ML UDC (200MG/10ML) GT ×2 (05:35→17:25)
[2018-02-26] MEDS: Linezolid 600 MG Tablet PO ×2 (05:35→17:28)
[2018-02-26] MEDS: Amantadine 100 MG Capsule PO (05:35)
[2018-02-26] MEDS: BACITRACIN 15 GM Tube 1 APPLIC TOPICAL (05:36)
[2018-02-26] MEDS: Fluticasone 0.05% 1 SPRAY NASAL.SRY 2 SPRAY NASAL (05:36)
[2018-02-26] MEDS: Nystatin Powder 15gm Bottle 1 APPLIC TOPICAL ×2 (05:37→20:44)
[2018-02-26] MEDS: Polyethylene Glycol 3350 17 GM PACKET PO (05:37)
[2018-02-26] MEDS: Iron Polysaccharide Complex 150 MG CAPSULE PO (05:38)
[2018-02-26] MEDS: Piperacil/Tazobactam 3.375 GM Q8 PREMIX IV ×3 (05:53→20:47)
[2018-02-26] MEDS: Metoprolol Tartrate 50 MG Tablet 150 MG PO ×3 (05:53→20:43)
[2018-02-26] MEDS: 0.9% NaCl PICC Flush IV (05:53)
[2018-02-26 07:10] LABS: Bedside Glucose 194 mg/dL (70-110)
--- NOTE | 2018-02-26 10:40 | NURSING ---
Colostomy appliance intact. the flange and pouch were changed on 02/25/18. pouch emptied for a large amount of thick brown stool.
[2018-02-26] MEDS: oxyCODONE 5 MG Tablet PO (11:07)
[2018-02-26] MEDS: Smz/Tmp Ds Tablet 1 TABLET PO ×2 (11:09→17:27)
[2018-02-26] MEDS: Magnesium Oxide 400 MG Tablet PO ×2 (11:09→17:26)
[2018-02-26] MEDS: Ascorbic Acid 500 MG Tablet 1000 MG PO (11:10)
[2018-02-26 11:41] LABS: Bedside Glucose 277 mg/dL (70-110)
[2018-02-26] MEDS: Insulin Lispro 100 UNIT/ML INSULN.PEN 7 UNIT SC ×2 (11:45→17:31)
--- NOTE | 2018-02-26 12:01 | CASEMGMT ---
Insurance Clinical update faxed. Will await continued stay determination. Auth # [id number] KANDACE Smith
[2018-02-26 16:56] LABS: Bedside Glucose 230 mg/dL (70-110)
[2018-02-26] MEDS: Budesonide Respules 0.5 MG/2 ML AMPUL.NEB. INHALATION (19:35)
[2018-02-26] MEDS: Tamsulosin HCl 0.4 MG Capsule PO (20:43)
[2018-02-26] MEDS: Pravastatin 80 MG Tablet PO (20:43)
[2018-02-26] MEDS: Pramipexole Di-HCl 0.25 MG Tablet PO (20:44)
[2018-02-26 21:11] LABS: Bedside Glucose 202 mg/dL (70-110)
[2018-02-27] VITALS (7 sets, daily range): BP systolic 124–126; BP diastolic 55–62; PULSE 70–89; RESP 15–20; TEMP 36.4; O2SAT 95–99
[2018-02-27] MEDS: Pantoprazole Sodium 40 MG Tablet PO (04:18)
[2018-02-27] MEDS: Furosemide 40 MG Tablet PO ×2 (04:18→13:53)
[2018-02-27] MEDS: Senna/Docusate Sodium 1 Tablet 2 TABLET PO ×2 (04:18→17:35)
[2018-02-27] MEDS: Iron Polysaccharide Complex 150 MG CAPSULE PO (04:18)
[2018-02-27] MEDS: Linezolid 600 MG Tablet PO ×2 (04:18→17:35)
[2018-02-27] MEDS: Amantadine 100 MG Capsule PO (04:19)
[2018-02-27] MEDS: Metoprolol Tartrate 50 MG Tablet 150 MG PO ×3 (04:20→20:14)
[2018-02-27] MEDS: Polyethylene Glycol 3350 17 GM PACKET PO (04:21)
[2018-02-27] MEDS: Enoxaparin 40 MG/0.4 ML Syringe SC (04:21)
[2018-02-27] MEDS: Fluticasone 0.05% 1 SPRAY NASAL.SRY 2 SPRAY NASAL (04:22)
[2018-02-27] MEDS: Nystatin Powder 15gm Bottle 1 APPLIC TOPICAL ×2 (04:22→23:49)
[2018-02-27] MEDS: guaiFENesin 10 ML UDC (200MG/10ML) GT ×2 (04:23→17:36)
[2018-02-27] MEDS: Magnesium Oxide 400 MG Tablet PO ×3 (06:20→17:36)
[2018-02-27] MEDS: Piperacil/Tazobactam 3.375 GM Q8 PREMIX IV ×3 (06:21→20:07)
[2018-02-27] MEDS: Insulin Lispro 100 UNIT/ML INSULN.PEN 7 UNIT SC ×3 (06:28→17:41)
[2018-02-27 06:41] LABS: Bedside Glucose 173 mg/dL (70-110)
[2018-02-27] MEDS: Budesonide Respules 0.5 MG/2 ML AMPUL.NEB. INHALATION ×2 (06:44→19:36)
[2018-02-27] MEDS: Ascorbic Acid 500 MG Tablet 1000 MG PO (09:50)
[2018-02-27] MEDS: Smz/Tmp Ds Tablet 1 TABLET PO ×2 (09:50→17:35)
[2018-02-27 11:51] LABS: Bedside Glucose 209 mg/dL (70-110)
[2018-02-27 17:06] LABS: Bedside Glucose 189 mg/dL (70-110)
[2018-02-27] MEDS: 0.9% NaCl PICC Flush IV (20:08)
[2018-02-27] MEDS: Pramipexole Di-HCl 0.25 MG Tablet PO (20:14)
[2018-02-27] MEDS: Tamsulosin HCl 0.4 MG Capsule PO (20:14)
[2018-02-27] MEDS: Pravastatin 80 MG Tablet PO (20:14)
[2018-02-27 21:30] LABS: Bedside Glucose 186 mg/dL (70-110)
[2018-02-27] MEDS: Zolpidem Tartrate 5 MG Tablet PO (23:02)
[2018-02-28] MEDS: Piperacil/Tazobactam 3.375 GM Q8 PREMIX IV ×3 (04:38→22:26)
[2018-02-28] MEDS: 0.9% NaCl PICC Flush IV ×2 (04:38→22:13)
[2018-02-28] MEDS: Enoxaparin 40 MG/0.4 ML Syringe SC (04:38)
[2018-02-28] MEDS: Pantoprazole Sodium 40 MG Tablet PO (04:38)
[2018-02-28] MEDS: Senna/Docusate Sodium 1 Tablet 2 TABLET PO ×2 (04:38→22:08)
[2018-02-28] MEDS: Furosemide 40 MG Tablet PO ×2 (04:39→14:09)
[2018-02-28] MEDS: Magnesium Oxide 400 MG Tablet PO ×3 (04:39→22:09)
[2018-02-28] MEDS: Fluticasone 0.05% 1 SPRAY NASAL.SRY 2 SPRAY NASAL (04:40)
[2018-02-28] MEDS: Iron Polysaccharide Complex 150 MG CAPSULE PO (04:40)
[2018-02-28] MEDS: Nystatin Powder 15gm Bottle 1 APPLIC TOPICAL ×2 (04:40→22:12)
[2018-02-28] MEDS: Amantadine 100 MG Capsule PO (04:41)
[2018-02-28] MEDS: Linezolid 600 MG Tablet PO ×2 (04:41→22:08)
[2018-02-28] MEDS: guaiFENesin 10 ML UDC (200MG/10ML) GT ×2 (04:42→22:08)
[2018-02-28] MEDS: Polyethylene Glycol 3350 17 GM PACKET PO (04:43)
[2018-02-28 05:05] VITALS: BP 126/96; PULSE 90
[2018-02-28] MEDS: Metoprolol Tartrate 50 MG Tablet 150 MG PO ×3 (05:05→22:13)
[2018-02-28] MEDS: Budesonide Respules 0.5 MG/2 ML AMPUL.NEB. INHALATION (06:40)
[2018-02-28 07:56] LABS: Bedside Glucose 201 mg/dL (70-110)
[2018-02-28] MEDS: Insulin Lispro 100 UNIT/ML INSULN.PEN 7 UNIT SC ×3 (08:03→17:42)
[2018-02-28] MEDS: Smz/Tmp Ds Tablet 1 TABLET PO ×2 (08:04→17:38)
[2018-02-28] MEDS: Ascorbic Acid 500 MG Tablet 1000 MG PO (08:04)
[2018-02-28 11:46] LABS: Bedside Glucose 222 mg/dL (70-110)
[2018-02-28 14:09] VITALS: BP 119/55; PULSE 101
[2018-02-28 14:17] VITALS: BP 119/55; PULSE 101; RESP 18; TEMP 37; O2SAT 98
[2018-02-28 16:56] LABS: Bedside Glucose 236 mg/dL (70-110)
[2018-02-28 20:56] LABS: Bedside Glucose 228 mg/dL (70-110)
[2018-02-28] MEDS: Pravastatin 80 MG Tablet PO (22:10)
[2018-02-28] MEDS: Pramipexole Di-HCl 0.25 MG Tablet PO (22:10)
[2018-02-28] MEDS: Tamsulosin HCl 0.4 MG Capsule PO (22:10)
[2018-02-28 22:13] VITALS: BP 127/70; PULSE 87
[2018-02-28] MEDS: 0.9% NaCl IVPB Med Flush (250 mL) 15 ML IV (22:22)
[2018-02-28] MEDS: oxyCODONE 5 MG Tablet PO (22:40)
[2018-03-01] MEDS: Nystatin Powder 15gm Bottle 1 APPLIC TOPICAL ×2 (04:36→22:02)
[2018-03-01] MEDS: Fluticasone 0.05% 1 SPRAY NASAL.SRY 2 SPRAY NASAL (04:37)
[2018-03-01 04:38] VITALS: BP 111/64; PULSE 82
[2018-03-01] MEDS: Iron Polysaccharide Complex 150 MG CAPSULE PO (04:38)
[2018-03-01] MEDS: Polyethylene Glycol 3350 17 GM PACKET PO (04:38)
[2018-03-01] MEDS: Metoprolol Tartrate 50 MG Tablet 150 MG PO ×3 (04:38→22:02)
[2018-03-01] MEDS: Amantadine 100 MG Capsule PO (04:38)
[2018-03-01] MEDS: Furosemide 40 MG Tablet PO ×2 (04:38→13:56)
[2018-03-01] MEDS: guaiFENesin 10 ML UDC (200MG/10ML) GT ×2 (04:38→17:24)
[2018-03-01] MEDS: Pantoprazole Sodium 40 MG Tablet PO (04:38)
[2018-03-01] MEDS: Senna/Docusate Sodium 1 Tablet 2 TABLET PO ×2 (04:39→17:24)
[2018-03-01] MEDS: Enoxaparin 40 MG/0.4 ML Syringe SC (04:39)
[2018-03-01] MEDS: Linezolid 600 MG Tablet PO ×2 (04:52→17:24)
[2018-03-01] MEDS: Piperacil/Tazobactam 3.375 GM Q8 PREMIX IV ×3 (05:03→22:15)
[2018-03-01 06:30] VITALS: PULSE 71; RESP 18; O2SAT 97
[2018-03-01] MEDS: Budesonide Respules 0.5 MG/2 ML AMPUL.NEB. INHALATION ×2 (06:30→19:35)
[2018-03-01 06:40] LABS: Bedside Glucose 165 mg/dL (70-110)
[2018-03-01] MEDS: Ascorbic Acid 500 MG Tablet 1000 MG PO (07:55)
[2018-03-01] MEDS: Smz/Tmp Ds Tablet 1 TABLET PO ×2 (07:55→17:24)
[2018-03-01] MEDS: Insulin Lispro 100 UNIT/ML INSULN.PEN 7 UNIT SC ×3 (07:55→17:25)
[2018-03-01] MEDS: Magnesium Oxide 400 MG Tablet PO ×3 (07:55→17:24)
--- NOTE | 2018-03-01 10:02 | NURSING ---
emptied colostomy bag of thick soft brown stool this AM. oral care provided d/t bates water protocol. Pt just assisted to bed via saralift to rest after therapy. at bedside. call light in reach.
--- NOTE | 2018-03-01 10:57 | CASEMGMT ---
Insurance Continued stay approved with update due 03/05. Pt will be sent to medical review at this review. 31 days left in benefit. Auth #[id number] KANDACE Smith
[2018-03-01 11:16] LABS: Bedside Glucose 264 mg/dL (70-110)
--- NOTE | 2018-03-01 13:13 | PCM.PN.ID ---
Subjective: Feeling fine, no fever, no abd pain - Physical Exam General: Alert, Cooperative, No apparent distress Lungs: Clear to auscultation, Normal air movement Cardiovascular: Regular rate, Regular Rhythm Abdomen: Soft, Non Tender, Non-Distended Skin: No rashes, Ulcer/ Wound - wound vac in place Vital Signs Temp Pulse Resp BP Pulse Ox 98.6 F 71 18 111/64 97 02/28/18 14:17 03/01/18 06:30 03/01/18 06:30 03/01/18 04:38 03/01/18 06:30 Oxygen Flow Rate (L/min) 5 Oxygen Delivery Method Room Air Weight: 105.857 kg Body Mass Index (BMI) 33.0 Finger Stick Blood Glucose 250 Intake and Output for Last 24 Hours 02/27/18 02/28/18 03/01/18 23:59 23:59 23:59 Intake Total 600 / 600 760 / 760 590 / 590 Output Total 5300 / 5300 4700 / 4700 1350 / 1350 Balance -4700 / -4700 -3940 / -3940 -760 / -760 POC Glucose 03/01/18 03/01/18 02/28/18 11:06 06:31 20:46 POC Glucose 264 H 165 H 228 H 02/28/18 16:49 POC Glucose 236 H Medical Necessity - Tobacco Use Smoking Status: Former smoker Tobacco Use: Cigarettes Route of nutrition/ use of supplements: [] Nutritional Intake: [] IV Site: [] Lane Catheter: [] - Assessment/Plan Antibiotics: [] Assessment/Plan: [] Sacral osteo - s/p OR 01/[address] Juarez. Micro (+) for mssa, VRE, ecoli, MDR serratia and others. On zosyn, bactrim, and linezolid for planned 6 week course. Reviewed labs, no signs of side effects. Planned stop date 03/05/18. Weekly bmp, cbc, and esr while on these abx. Will follow.
[2018-03-01 13:55] VITALS: PULSE 87
--- NOTE | 2018-03-01 14:28 | NURSING ---
wound photo: sacrum
[2018-03-01 15:46] VITALS: BP 129/77; PULSE 68; RESP 16; TEMP 35.7; O2SAT 98
[2018-03-01 17:11] LABS: Bedside Glucose 177 mg/dL (70-110)
[2018-03-01 19:35] VITALS: PULSE 72; RESP 18
--- NOTE | 2018-03-01 20:02 | PCM.TCUNOT ---
Subjective: Resident seen in room, in bed. He has no complaints, starting t eat his supper. Dr. Wilkerson saw resident today, antibiotic stop date is 03/05/2018. Vitals/I&O's: Vital Signs Temp Pulse Resp BP Pulse Ox 96.3 F L 68 16 129/77 H 98 03/01/18 15:46 03/01/18 15:46 03/01/18 15:46 03/01/18 15:46 03/01/18 15:46 Oxygen Flow Rate (L/min) 5 Oxygen Delivery Method Room Air Weight: 105.857 kg Body Mass Index (BMI) 33.0 Finger Stick Blood Glucose 250 Intake and Output for Last 24 Hours 02/27/18 02/28/18 03/01/18 23:59 23:59 23:59 Intake Total 600 / 600 760 / 760 770 / 770 Output Total 5300 / 5300 4700 / 4700 2100 / 2100 Balance -4700 / -4700 -3940 / -3940 -1330 / -1330 Laboratory Results 02/28/18 20:46: POC Glucose 228 H 03/01/18 06:31: POC Glucose 165 H 03/01/18 11:06: POC Glucose 264 H 03/01/18 16:57: POC Glucose 177 H Past Medical History Past Medical History (Chronic Problems): Chronic Problems (Last Reviewed 01/15/18 @ 18:40 by Darnell Felix DO) Hemiplegia affecting right dominant side (Chronic) 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, stage 4 (Chronic) Fall (Chronic) Traumatic brain injury (Chronic) Intraparenchymal hemorrhage of brain (Chronic) Subarachnoid hemorrhage (Chronic) Subdural hematoma (Chronic) Intraventricular hemorrhage (Chronic) Right scapula fracture (Chronic) Tobacco abuse (Chronic) Dysphagia (Chronic) Insomnia (Chronic) Vitamin D deficiency (Chronic) Depression (Chronic) GERD (gastroesophageal reflux disease) (Chronic) BPH (benign prostatic hyperplasia) (Chronic) Right hemiplegia (Chronic) Congestive heart failure (Chronic) Alcohol abuse (Chronic) Sleep apnea (Chronic) Diabetes mellitus (Chronic) Encounter for long-term current use of high risk medication (Chronic) Obstructive sleep apnea (Chronic) 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) S/P CABG x3 with right radial to LAD, SVG to RCA, and SVG to OM 2; stenting to LAD in February 2017; Presence of coronary angioplasty implant and graft (Chronic) Presence of aortocoronary bypass graft (Chronic) CABG X 3 2002 ?, Radial artery -LAD, SVG-RCA, SVG-OM2 Non-ST elevation myocardial infarction (NSTEMI), initial care episode (Chronic) 02/16/17 Ischemic cardiomyopathy (Chronic) Restless leg syndrome (Chronic) Hyperlipidemia (Chronic) Hypertensive emergency (Chronic) COPD (chronic obstructive pulmonary disease) (Chronic) Hypertension (Chronic) Morbid obesity (Chronic) CAD (coronary artery disease) (Chronic) Stented coronary artery (Chronic) [facility] w/SYC-WWM-Nlyy LAD (grafts occluded X 3) 02/20/17 Former smoker (Chronic) quit February 2017 Diabetes mellitus type 2 in obese (Chronic) Hx of CABG (Chronic) CABG X3 rADIAL ARTERY-lad, svg-rca, svg-om2. 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) I25.810 S/P CABG x3 with right radial to LAD, SVG to RCA, and SVG to OM 2; stenting to LAD in February 2017; Non-ST elevation myocardial infarction (NSTEMI), initial care episode (Chronic) I21.4 02/16/17 Ischemic cardiomyopathy (Chronic) I25.5 FUO (fever of unknown origin) (Acute) Restless leg syndrome (Chronic) Hyperlipidemia (Chronic) E78.5 Hypertensive emergency (Chronic) I16.1 Demand ischemia (Resolved) I24.8 COPD (chronic obstructive pulmonary disease) (Chronic) J44.9 Hypertension (Chronic) I10 Morbid obesity (Chronic) E66.01 Systolic CHF, acute (Acute) I50.21 CAD (coronary artery disease) (Chronic) I25.10 Stented coronary artery (Chronic) [facility] w/KPR-LZQ-Zpyo LAD (grafts occluded X 3) 02/20/17 Former smoker (Chronic) Z87.891 quit February 2017 Diabetes mellitus type 2 in obese (Chronic) E11.69, E66.9 PEG (percutaneous endoscopic gastrostomy) adjustment/replacement/removal Z43.1 Nicotine dependence F17.200 Allergies atorvastatin Allergy (Verified 01/21/18 15:52) Hives cilostazol Allergy (Verified 01/21/18 15:52) Hives colestipol Allergy (Verified 01/21/18 15:52) Hives diltiazem Allergy (Verified 01/21/18 15:52) Hives gemfibrozil Allergy (Verified 01/21/18 15:52) Hives naproxen [From Naprosyn] Allergy (Verified 01/21/18 15:52) Hives niacin Allergy (Verified 01/21/18 15:52) Hives Penicillins Allergy (Verified 01/21/18 15:52) Hives pravastatin Allergy (Verified 01/21/18 15:52) Hives procaine [From Novocain] Allergy (Verified 01/21/18 15:52) Hives rosuvastatin Allergy (Verified 01/21/18 15:52) Hives simvastatin Allergy (Verified 01/21/18 15:52) Hives isosorbide Adverse Reaction (Severe, Verified 01/21/18 15:52) Unknown Home Medications: Ambulatory Orders Medication Instructions Recorded Acetaminophen [Tylenol] 650 mg PO Q6H PRN PRN 01/16/18 Insulin Glargine [Lantus SoloStar 15 units SQ BID 01/16/18 Pen] Insulin Lispro [Humalog Benjie 7 unit SQ TIDCM 01/16/18 Kwikpen] Ipratropium/Albuterol Sulfate 3 ml INHALATION Q2H PRN PRN 01/16/18 [Duoneb] Metoprolol Tartrate 150 mg PO TID 01/16/18 Nitroglycerin [Nitrostat] 0.4 mg SUBLINGUAL Q5M PRN 01/16/18 Polyethylene Glycol 3350 [Miralax] 17 gm PO DAILY 01/16/18 Pravastatin [Pravachol] 80 mg PO QHS 01/16/18 Tamsulosin HCl [Flomax] 0.4 mg PO QHS 01/16/18 Zolpidem Tartrate [Ambien] 5 mg PO QHS PRN PRN 01/16/18 Argin/Glut/Cahmb/Collag/Mv-Min 1 each PO BIDCM 01/22/18 [[place] Packet] Magnesium Oxide [Mag-Ox 400] 400 mg PO TIDCM 01/22/18 Pantoprazole Sodium [Protonix] 40 mg PO DAILY 01/22/18 Piperacil/Tazobactam [Zosyn] 3.375 gm IV Q8 01/22/18 Pramipexole Di-HCl [Mirapex] 0.25 mg PO QHS 01/22/18 Amantadine [Symmetrel] 100 mg PO DAILY 02/02/18 Ascorbic Acid [Vitamin C] 1,000 mg PO DAILY@0800 02/02/18 Budesonide Aerosol [Pulmicort 0.5 mg INHALATION BID.RT 02/02/18 Respules] Diazepam [Valium] 2 mg PO 4X/DAY PRN PRN #30 tab 02/02/18 Furosemide [Lasix] 40 mg PO BIDLX 02/02/18 Heparin Sodium,Porcine/Pf [Heparin 500 unit IV UD PRN syringe 02/02/18 500 Unit/5 ml (100/ml)] Iron Polysaccharide Complex 150 mg PO DAILY 02/02/18 [Ferrex 150] Lactobacillus Acidophilus 1 tablet PO BID 02/02/18 [Acidophilus] Lansoprazole [Prevacid] 30 mg PO DAILY 02/02/18 Linezolid [Zyvox] 600 mg PO BID 02/02/18 Nutritional Supplement [[place] - 1 packet PO BIDCM 02/02/18 [place]ANGE FLAVOR] Ondansetron [Zofran] 4 mg IV Q6H PRN PRN vial 02/02/18 Oxycodone [Oxyir] 5 mg PO 4X/DAY PRN PRN 7 Days #30 02/02/18 tab Potassium Cloride Effervescent 50 meq PO BIDCM 02/02/18 [Potassium Chl 25 Meq Eff (For Liquid)] Smz/Tmp Ds [Bactrim Ds] 1 tablet PO BIDCM 02/02/18 traMADol [Ultram] 50 mg PO TID PRN PRN 7 Days #20 tab 02/02/18 Surgical History: Surgical History (Last Reviewed 01/15/18 @ 18:40 by Darnell Felix DO) Presence of coronary angioplasty implant and graft (Chronic) Z95.5 Presence of aortocoronary bypass graft (Chronic) Z95.1 CABG X 3 2001 ?, Radial artery -LAD, SVG-RCA, SVG-OM2 Hx of CABG (Chronic) CABG X3 rADIAL ARTERY-lad, svg-rca, svg-om2. MULTIPLE CORONARY STENTS Surgical History: angioplasty, coronary bypass surgery - x 3., - - PEG tube, Diverting colostomy. Psychiatric History: Depression Lives: Longterm Smoking Status: Former smoker Tobacco Use: Cigarettes Alcohol: Heavy Drugs: None - *Family History Maternal Family History: Family History (Last Reviewed 01/15/18 @ 18:40 by Darnell Felix DO) Brother Heart disease Father Heart disease History Items: No pertinent history, - - Alzheimer Paternal Family History: Family History (Last Reviewed 01/15/18 @ 18:40 by Darnell Felix DO) Brother Heart disease Father Heart disease History Items: No pertinent history Review of Systems Constitutional: Denies: Chills, Fever, Weight Change HEENT: Denies: Head Aches, Sinus Congestion, Sinus Drainage Cardiovascular: Denies: Chest Pain, Palpitations Respiratory: Denies: Cough, Shortness of breath at rest, Sputum production Gastrointestinal: Denies: Abdominal Pain, Nausea, Vomiting Genitourinary: Denies: Dysuria Musculoskeletal: Denies: Joint Pain, Joint Tenderness Skin: Denies: Rash, Wounds Neurological: Denies: Numbness, Tingling, Focal weakness Psychiatric: Denies: Anxiety, Depression, Homicidal Ideations, Suicidal Ideations Hematologic/ Lymphatic: Denies: Easy Bruising, Easy Bleeding - Physical Exam General: Alert, Oriented x3, Cooperative HEENT: Atraumatic, PERRLA, EOMI, Normocephalic Neck: Supple, No JVD, Negative Carotid Bruits Lungs: Clear to auscultation, Normal air movement Cardiovascular: Regular rate, No murmurs Abdomen: Bowel Sounds Present, Soft, Non Tender Extremities: No edema, Capillary Refill Less than 3 Seconds Skin: No rashes, No breakdown, Ulcer/ Wound - Sacral pressure ulcer per wound care team. Musculoskeletal: No Tenderness to Palpation of Joints or Extremities Neurological: Cranial nerves II-XII grossly intact Psych/Mental Status: Normal Affect, Appropriate Vital Signs Temp Pulse Resp BP Pulse Ox 96.3 F L 68 16 129/77 H 98 03/01/18 15:46 03/01/18 15:46 03/01/18 15:46 03/01/18 15:46 03/01/18 15:46 Oxygen Flow Rate (L/min) 5 Oxygen Delivery Method Room Air Weight: 105.857 kg Body Mass Index (BMI) 33.0 Finger Stick Blood Glucose 250 Intake and Output for Last 24 Hours 02/27/18 02/28/18 03/01/18 23:59 23:59 23:59 Intake Total 600 / 600 760 / 760 770 / 770 Output Total 5300 / 5300 4700 / 4700 2100 / 2100 Balance -4700 / -4700 -3940 / -3940 -1330 / -1330 POC Glucose 03/01/18 03/01/18 03/01/18 16:57 11:06 06:31 POC Glucose 177 H 264 H 165 H 02/28/18 20:46 POC Glucose 228 H Assessment/Plan All Active Problems (Last Updated 01/15/18 @ 18:40 by Darnell Felix DO) Malnutrition of moderate degree (Acute) Alcohol intoxication (Resolved) Acute respiratory failure (Acute) Aspiration pneumonia (Acute) Acute and chronic respiratory failure with hypoxia (Acute) Sepsis (Resolved) Healthcare associated bacteremia due to Staphylococcus aureus (Resolved) Infected decubitus ulcer (Acute) Infected decubitus ulcer (Acute) FUO (fever of unknown origin) (Acute) Demand ischemia (Resolved) Systolic CHF, acute (Acute) Acute respiratory failure with hypoxia and hypercarbia (Resolved) Multifocal community-acquired pneumonia (Resolved) Severe sepsis (Resolved) 67 year old male with below past medical history hospitalized for infected stage 4 sacral pressure ulcer, underwent debridement with wound VAC 01/22/[address] Juarez, diverting colostomy per Dr. Arias, admitted to TCU with debility, here for rehabilitation, strengthening, wound care, intravenous antibiotics, prior to disposition determination. Debility - PT/OT. Dysphagia - ST. Pain - Tylenol 1000MG Q8H PRN mild pain, Oxycodone 5MG Q6H PRN severe pain. Bowel - Miralax 17GM daily, Senna/colace 2 tablets BID, Dulcolax 10MG PO daily PRN. Pneumonia vaccination - Administer Prevnar 13 and/or Pneumovax 23 as necessary. DVT prophylaxis - Lovenox 40MG SC daily. TBI - Amantadine 100MG daily. Vitamin C deficiency - Vitamin C 1000MG daily. COPD - Pulmicort 0.5MG BID, Duoneb 3ML Q2H PRN. Anxiety - Diazepam 2MG 4x/day PRN. Edema - Lasix 40MG BID. Diabetes Mellitus II - Lantus 10 units BID, Humalog 7 units TID. Iron deficiency anemia - Ferrex 150MG daily. C. Diff prophylaxis - Lactobacillus 1 tablet BID. GERD - Pantoprazole 40MG daily. Infected sacral pressure ulcer - Zyvox 600MG BID, Zosyn 3.375GM IV Q8H, Bactrim DS 1 tablet BID, stop date 03/05/[address] Wilkerson. Wound VAC per wound care team, [place] 1 packet BID. Hypomagnesemia - Mag Oxide 400MG TID. Coronary Artery Disease - Metoprolol 150MG TID, NTG 0.4MG SL Q5M PRN. Nausea - Zofran 4MG IV Q6H PRN. Hypokalemia - KCL 50MEQ BID. Restless Leg syndrome - Mirapex 0.25MG QHS. Hyperlipidemia - Pravastatin 80Mg QHS. BPH - Tamsulosin 0.4MG QHS. Insomnia - Zolpidem 5MG QHS PRN.
--- NOTE | 2018-03-01 20:06 | PN_ITS ---
Subjective: Resident seen in room, in bed. He has no complaints, starting t eat his supper. Dr. Wilkerson saw resident today, antibiotic stop date is 03/05/2018. Vitals/I&O's: Vital Signs Temp Pulse Resp BP Pulse Ox 96.3 F L 68 16 129/77 H 98 03/01/18 15:46 03/01/18 15:46 03/01/18 15:46 03/01/18 15:46 03/01/18 15:46 Oxygen Flow Rate (L/min) 5 Oxygen Delivery Method Room Air Weight: 105.857 kg Body Mass Index (BMI) 33.0 Finger Stick Blood Glucose 250 Intake and Output for Last 24 Hours 02/27/18 02/28/18 03/01/18 23:59 23:59 23:59 Intake Total 600 / 600 760 / 760 770 / 770 Output Total 5300 / 5300 4700 / 4700 2100 / 2100 Balance -4700 / -4700 -3940 / -3940 -1330 / -1330 Laboratory Results 02/28/18 20:46: POC Glucose 228 H 03/01/18 06:31: POC Glucose 165 H 03/01/18 11:06: POC Glucose 264 H 03/01/18 16:57: POC Glucose 177 H Past Medical History Past Medical History (Chronic Problems): Chronic Problems (Last Reviewed 01/15/18 @ 18:40 by Darnell Felix DO) Hemiplegia affecting right dominant side (Chronic) 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, stage 4 (Chronic) Fall (Chronic) Traumatic brain injury (Chronic) Intraparenchymal hemorrhage of brain (Chronic) Subarachnoid hemorrhage (Chronic) Subdural hematoma (Chronic) Intraventricular hemorrhage (Chronic) Right scapula fracture (Chronic) Tobacco abuse (Chronic) Dysphagia (Chronic) Insomnia (Chronic) Vitamin D deficiency (Chronic) Depression (Chronic) GERD (gastroesophageal reflux disease) (Chronic) BPH (benign prostatic hyperplasia) (Chronic) Right hemiplegia (Chronic) Congestive heart failure (Chronic) Alcohol abuse (Chronic) Sleep apnea (Chronic) Diabetes mellitus (Chronic) Encounter for long-term current use of high risk medication (Chronic) Obstructive sleep apnea (Chronic) 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) S/P CABG x3 with right radial to LAD, SVG to RCA, and SVG to OM 2; stenting to LAD in February 2017; Presence of coronary angioplasty implant and graft (Chronic) Presence of aortocoronary bypass graft (Chronic) CABG X 3 2002 ?, Radial artery -LAD, SVG-RCA, SVG-OM2 Non-ST elevation myocardial infarction (NSTEMI), initial care episode (Chronic) 02/16/17 Ischemic cardiomyopathy (Chronic) Restless leg syndrome (Chronic) Hyperlipidemia (Chronic) Hypertensive emergency (Chronic) COPD (chronic obstructive pulmonary disease) (Chronic) Hypertension (Chronic) Morbid obesity (Chronic) CAD (coronary artery disease) (Chronic) Stented coronary artery (Chronic) [facility] w/[id number]-[id number] LAD (grafts occluded X 3) 02/20/17 Former smoker (Chronic) quit February 2017 Diabetes mellitus type 2 in obese (Chronic) Hx of CABG (Chronic) CABG X3 rADIAL ARTERY-lad, svg-rca, svg-om2. 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) I25.810 S/P CABG x3 with right radial to LAD, SVG to RCA, and SVG to OM 2; stenting to LAD in February 2017; Non-ST elevation myocardial infarction (NSTEMI), initial care episode (Chronic) I21.4 02/16/17 Ischemic cardiomyopathy (Chronic) I25.5 FUO (fever of unknown origin) (Acute) Restless leg syndrome (Chronic) Hyperlipidemia (Chronic) E78.5 Hypertensive emergency (Chronic) I16.1 Demand ischemia (Resolved) I24.8 COPD (chronic obstructive pulmonary disease) (Chronic) J44.9 Hypertension (Chronic) I10 Morbid obesity (Chronic) E66.01 Systolic CHF, acute (Acute) I50.21 CAD (coronary artery disease) (Chronic) I25.10 Stented coronary artery (Chronic) [facility] w/ABR-CQV-Yjym LAD (grafts occluded X 3) 02/20/17 Former smoker (Chronic) Z87.891 quit February 2017 Diabetes mellitus type 2 in obese (Chronic) E11.69, E66.9 PEG (percutaneous endoscopic gastrostomy) adjustment/replacement/removal Z43.1 Nicotine dependence F17.200 Allergies atorvastatin Allergy (Verified 01/21/18 15:52) Hives cilostazol Allergy (Verified 01/21/18 15:52) Hives colestipol Allergy (Verified 01/21/18 15:52) Hives diltiazem Allergy (Verified 01/21/18 15:52) Hives gemfibrozil Allergy (Verified 01/21/18 15:52) Hives naproxen [From Naprosyn] Allergy (Verified 01/21/18 15:52) Hives niacin Allergy (Verified 01/21/18 15:52) Hives Penicillins Allergy (Verified 01/21/18 15:52) Hives pravastatin Allergy (Verified 01/21/18 15:52) Hives procaine [From Novocain] Allergy (Verified 01/21/18 15:52) Hives rosuvastatin Allergy (Verified 01/21/18 15:52) Hives simvastatin Allergy (Verified 01/21/18 15:52) Hives isosorbide Adverse Reaction (Severe, Verified 01/21/18 15:52) Unknown Home Medications: Ambulatory Orders Medication Instructions Recorded Acetaminophen [Tylenol] 650 mg PO Q6H PRN PRN 01/16/18 Insulin Glargine [Lantus SoloStar 15 units SQ BID 01/16/18 Pen] Insulin Lispro [Humalog Benjie 7 unit SQ TIDCM 01/16/18 Kwikpen] Ipratropium/Albuterol Sulfate 3 ml INHALATION Q2H PRN PRN 01/16/18 [Duoneb] Metoprolol Tartrate 150 mg PO TID 01/16/18 Nitroglycerin [Nitrostat] 0.4 mg SUBLINGUAL Q5M PRN 01/16/18 Polyethylene Glycol 3350 [Miralax] 17 gm PO DAILY 01/16/18 Pravastatin [Pravachol] 80 mg PO QHS 01/16/18 Tamsulosin HCl [Flomax] 0.4 mg PO QHS 01/16/18 Zolpidem Tartrate [Ambien] 5 mg PO QHS PRN PRN 01/16/18 Argin/Glut/Cahmb/Collag/Mv-Min 1 each PO BIDCM 01/22/18 [[place] Packet] Magnesium Oxide [Mag-Ox 400] 400 mg PO TIDCM 01/22/18 Pantoprazole Sodium [Protonix] 40 mg PO DAILY 01/22/18 Piperacil/Tazobactam [Zosyn] 3.375 gm IV Q8 01/22/18 Pramipexole Di-HCl [Mirapex] 0.25 mg PO QHS 01/22/18 Amantadine [Symmetrel] 100 mg PO DAILY 02/02/18 Ascorbic Acid [Vitamin C] 1,000 mg PO DAILY@0800 02/02/18 Budesonide Aerosol [Pulmicort 0.5 mg INHALATION BID.RT 02/02/18 Respules] Diazepam [Valium] 2 mg PO 4X/DAY PRN PRN #30 tab 02/02/18 Furosemide [Lasix] 40 mg PO BIDLX 02/02/18 Heparin Sodium,Porcine/Pf [Heparin 500 unit IV UD PRN syringe 02/02/18 500 Unit/5 ml (100/ml)] Iron Polysaccharide Complex 150 mg PO DAILY 02/02/18 [Ferrex 150] Lactobacillus Acidophilus 1 tablet PO BID 02/02/18 [Acidophilus] Lansoprazole [Prevacid] 30 mg PO DAILY 02/02/18 Linezolid [Zyvox] 600 mg PO BID 02/02/18 Nutritional Supplement [[place] - 1 packet PO BIDCM 02/02/18 ORANGE FLAVOR] Ondansetron [Zofran] 4 mg IV Q6H PRN PRN vial 02/02/18 Oxycodone [Oxyir] 5 mg PO 4X/DAY PRN PRN 7 Days #30 02/02/18 tab Potassium Cloride Effervescent 50 meq PO BIDCM 02/02/18 [Potassium Chl 25 Meq Eff (For Liquid)] Smz/Tmp Ds [Bactrim Ds] 1 tablet PO BIDCM 02/02/18 traMADol [Ultram] 50 mg PO TID PRN PRN 7 Days #20 tab 02/02/18 Surgical History: Surgical History (Last Reviewed 01/15/18 @ 18:40 by Darnell Felix DO) Presence of coronary angioplasty implant and graft (Chronic) Z95.5 Presence of aortocoronary bypass graft (Chronic) Z95.1 CABG X 3 2001 ?, Radial artery -LAD, SVG-RCA, SVG-OM2 Hx of CABG (Chronic) CABG X3 rADIAL ARTERY-lad, svg-rca, svg-om2. MULTIPLE CORONARY STENTS Surgical History: angioplasty, coronary bypass surgery - x 3., - - PEG tube, Diverting colostomy. Psychiatric History: Depression Lives: [facility] Smoking Status: Former smoker Tobacco Use: Cigarettes Alcohol: Heavy Drugs: None - *Family History Maternal Family History: Family History (Last Reviewed 01/15/18 @ 18:40 by Darnell Felix DO) Brother Heart disease Father Heart disease History Items: No pertinent history, - - Alzheimer Paternal Family History: Family History (Last Reviewed 01/15/18 @ 18:40 by Darnell Felix DO) Brother Heart disease Father Heart disease History Items: No pertinent history Review of Systems Constitutional: Denies: Chills, Fever, Weight Change HEENT: Denies: Head Aches, Sinus Congestion, Sinus Drainage Cardiovascular: Denies: Chest Pain, Palpitations Respiratory: Denies: Cough, Shortness of breath at rest, Sputum production Gastrointestinal: Denies: Abdominal Pain, Nausea, Vomiting Genitourinary: Denies: Dysuria Musculoskeletal: Denies: Joint Pain, Joint Tenderness Skin: Denies: Rash, Wounds Neurological: Denies: Numbness, Tingling, Focal weakness Psychiatric: Denies: Anxiety, Depression, Homicidal Ideations, Suicidal Ideations Hematologic/ Lymphatic: Denies: Easy Bruising, Easy Bleeding - Physical Exam General: Alert, Oriented x3, Cooperative HEENT: Atraumatic, PERRLA, EOMI, Normocephalic Neck: Supple, No JVD, Negative Carotid Bruits Lungs: Clear to auscultation, Normal air movement Cardiovascular: Regular rate, No murmurs Abdomen: Bowel Sounds Present, Soft, Non Tender Extremities: No edema, Capillary Refill Less than 3 Seconds Skin: No rashes, No breakdown, Ulcer/ Wound - Sacral pressure ulcer per wound care team. Musculoskeletal: No Tenderness to Palpation of Joints or Extremities Neurological: Cranial nerves II-XII grossly intact Psych/Mental Status: Normal Affect, Appropriate Vital Signs Temp Pulse Resp BP Pulse Ox 96.3 F L 68 16 129/77 H 98 03/01/18 15:46 03/01/18 15:46 03/01/18 15:46 03/01/18 15:46 03/01/18 15:46 Oxygen Flow Rate (L/min) 5 Oxygen Delivery Method Room Air Weight: 105.857 kg Body Mass Index (BMI) 33.0 Finger Stick Blood Glucose 250 Intake and Output for Last 24 Hours 02/27/18 02/28/18 03/01/18 23:59 23:59 23:59 Intake Total 600 / 600 760 / 760 770 / 770 Output Total 5300 / 5300 4700 / 4700 2100 / 2100 Balance -4700 / -4700 -3940 / -3940 -1330 / -1330 POC Glucose 03/01/18 03/01/18 03/01/18 16:57 11:06 06:31 POC Glucose 177 H 264 H 165 H 02/28/18 20:46 POC Glucose 228 H Assessment/Plan All Active Problems (Last Updated 01/15/18 @ 18:40 by Darnell Felix DO) Malnutrition of moderate degree (Acute) Alcohol intoxication (Resolved) Acute respiratory failure (Acute) Aspiration pneumonia (Acute) Acute and chronic respiratory failure with hypoxia (Acute) Sepsis (Resolved) Healthcare associated bacteremia due to Staphylococcus aureus (Resolved) Infected decubitus ulcer (Acute) Infected decubitus ulcer (Acute) FUO (fever of unknown origin) (Acute) Demand ischemia (Resolved) Systolic CHF, acute (Acute) Acute respiratory failure with hypoxia and hypercarbia (Resolved) Multifocal community-acquired pneumonia (Resolved) Severe sepsis (Resolved) 67 year old male with below past medical history hospitalized for infected stage 4 sacral pressure ulcer, underwent debridement with wound VAC 01/22/[address] Juarez, diverting colostomy per Dr. Arias, admitted to TCU with debility, here for rehabilitation, strengthening, wound care, intravenous antibiotics, prior to disposition determination. * Debility - PT/OT. * Dysphagia - ST. * Pain - Tylenol 1000MG Q8H PRN mild pain, Oxycodone 5MG Q6H PRN severe pain. * Bowel - Miralax 17GM daily, Senna/colace 2 tablets BID, Dulcolax 10MG PO daily PRN. * Pneumonia vaccination - Administer Prevnar 13 and/or Pneumovax 23 as necessary. * DVT prophylaxis - Lovenox 40MG SC daily. * TBI - Amantadine 100MG daily. * Vitamin C deficiency - Vitamin C 1000MG daily. * COPD - Pulmicort 0.5MG BID, Duoneb 3ML Q2H PRN. * Anxiety - Diazepam 2MG 4x/day PRN. * Edema - Lasix 40MG BID. * Diabetes Mellitus II - Lantus 10 units BID, Humalog 7 units TID. * Iron deficiency anemia - Ferrex 150MG daily. * C. Diff prophylaxis - Lactobacillus 1 tablet BID. * GERD - Pantoprazole 40MG daily. * Infected sacral pressure ulcer - Zyvox 600MG BID, Zosyn 3.375GM IV Q8H, Bactrim DS 1 tablet BID, stop date 03/05/[address] Wilkerson. Wound VAC per wound care team, [place] 1 packet BID. * Hypomagnesemia - Mag Oxide 400MG TID. * Coronary Artery Disease - Metoprolol 150MG TID, NTG 0.4MG SL Q5M PRN. * Nausea - Zofran 4MG IV Q6H PRN. * Hypokalemia - KCL 50MEQ BID. * Restless Leg syndrome - Mirapex 0.25MG QHS. * Hyperlipidemia - Pravastatin 80Mg QHS. * BPH - Tamsulosin 0.4MG QHS. * Insomnia - Zolpidem 5MG QHS PRN.
[2018-03-01 21:41] LABS: Bedside Glucose 217 mg/dL (70-110)
[2018-03-01] MEDS: Pramipexole Di-HCl 0.25 MG Tablet PO (22:01)
[2018-03-01] MEDS: Pravastatin 80 MG Tablet PO (22:01)
[2018-03-01 22:02] VITALS: BP 128/76; PULSE 94
[2018-03-01] MEDS: 0.9% NaCl PICC Flush IV (22:03)
[2018-03-01] MEDS: Tamsulosin HCl 0.4 MG Capsule PO (22:06)
[2018-03-01] MEDS: oxyCODONE 5 MG Tablet PO (22:06)
[2018-03-01] MEDS: 0.9% NaCl IVPB Med Flush (250 mL) 15 ML IV (22:11)
[2018-03-02] MEDS: Iron Polysaccharide Complex 150 MG CAPSULE PO (05:08)
[2018-03-02] MEDS: Nystatin Powder 15gm Bottle 1 APPLIC TOPICAL ×2 (05:08→22:03)
[2018-03-02] MEDS: Linezolid 600 MG Tablet PO ×2 (05:08→17:00)
[2018-03-02] MEDS: guaiFENesin 10 ML UDC (200MG/10ML) GT ×2 (05:08→17:01)
[2018-03-02] MEDS: Polyethylene Glycol 3350 17 GM PACKET PO (05:08)
[2018-03-02] MEDS: Furosemide 40 MG Tablet PO ×2 (05:08→13:11)
[2018-03-02] MEDS: Amantadine 100 MG Capsule PO (05:08)
[2018-03-02] MEDS: Pantoprazole Sodium 40 MG Tablet PO (05:08)
[2018-03-02] MEDS: Senna/Docusate Sodium 1 Tablet 2 TABLET PO ×2 (05:08→17:01)
[2018-03-02 05:09] VITALS: BP 111/69; PULSE 90
[2018-03-02] MEDS: Fluticasone 0.05% 1 SPRAY NASAL.SRY 2 SPRAY NASAL (05:09)
[2018-03-02] MEDS: Metoprolol Tartrate 50 MG Tablet 150 MG PO ×3 (05:09→22:01)
[2018-03-02] MEDS: Enoxaparin 40 MG/0.4 ML Syringe SC (05:09)
[2018-03-02] MEDS: Piperacil/Tazobactam 3.375 GM Q8 PREMIX IV ×3 (05:18→22:14)
[2018-03-02 06:15] LABS: Bedside Glucose 157 mg/dL (70-110)
[2018-03-02 06:41] VITALS: PULSE 71; RESP 18; O2SAT 97
[2018-03-02] MEDS: Budesonide Respules 0.5 MG/2 ML AMPUL.NEB. INHALATION (06:41)
[2018-03-02] MEDS: Smz/Tmp Ds Tablet 1 TABLET PO ×2 (07:46→17:01)
[2018-03-02] MEDS: Magnesium Oxide 400 MG Tablet PO ×3 (07:46→17:00)
[2018-03-02] MEDS: Ascorbic Acid 500 MG Tablet 1000 MG PO (07:46)
[2018-03-02] MEDS: Insulin Lispro 100 UNIT/ML INSULN.PEN 7 UNIT SC ×3 (07:47→17:50)
[2018-03-02] MEDS: oxyCODONE 5 MG Tablet PO (09:24)
--- NOTE | 2018-03-02 09:50 | NURSING ---
removed colostomy appliance. there was a moderate amount of thick brown stool in appliance. stoma is slightly budded, pink, and moist. stoma measures approx 1 1/4. peristomal skin is intact. sutures still noted. cleansed with warm water. pat dry. applied a new 2 piece flat appliance with a small amount of stoma paste. pt tolerated well. will continue to monitor.
--- NOTE | 2018-03-02 10:16 | MDS.RN ---
Information for the mds was obtained from review of the clinical record, interview of resident, staff, and direct observation of resident's care.
[2018-03-02 11:16] LABS: Bedside Glucose 270 mg/dL (70-110)
[2018-03-02 13:12] VITALS: BP 142/60; PULSE 94
--- NOTE | 2018-03-02 13:25 | NURSING ---
Addendum entered by Ailin Arreguin 03/02/18 18:59: ASSISTANT CLINICAL NURSE MANAGER here and inserted new picc awaiting chest xray results for placement Original Note: Addendum entered by Ailin Arreguin 03/02/18 15:58: dr sorensen notified, xray results, new order for inserting new Picc placement. computer bookkeeper notified, will be here around 4:30-5:30 Original Note: PICC dressing changed, when charting, realized line was out 1cm more than last dressing change. Zosyn stopped and portable cxr ordered to check for placement.
[2018-03-02] MEDS: 0.9% NaCl PICC Flush IV ×2 (13:31→22:16)
--- NOTE | 2018-03-02 13:43 | RAD_ITS ---
STUDY: X-RAY CHEST REASON FOR EXAM: Male, 67 years old. PICC line placement. TECHNIQUE: Single AP portable view of the chest. COMPARISON: Comparison is made with prior study dated February 09, 2018. FINDINGS: A left-sided PICC line catheter as been placed. The tip is at the junction of the superior vena cava and left brachiocephalic vein. The lungs are clear and expanded. There is no demonstrated pleural abnormality. Sternal cerclage wires and vascular clips are present from a prior sternotomy and coronary artery bypass graft procedure (CABG). Normal mediastinum and ita. Normal visualized pulmonary arteries. Normal visualized aortic arch and descending thoracic aorta. Normal visualized thoracic spine. Normal visualized ribs, clavicles, and shoulders. There is no demonstrated abnormality of the visualized soft tissue structures of the upper abdomen. RAD/CXR for Line Placement IMPRESSION: The tip of the left PICC line catheter is at the junction of the superior vena cava and left brachiocephalic vein. Electronically Signed: Bakari Briggs MD at 14:13 EDT Tel [phone], Service support ,
--- NOTE | 2018-03-02 15:38 | CASEMGMT ---
Brief interview for mental status (BIMS) and resident mood interview (PHQ-9) completed on this day. BIMS score 13/15. PHQ-9 score
[2018-03-02 15:52] VITALS: BP 120/64; PULSE 73; RESP 18; TEMP 36.6; O2SAT 97
[2018-03-02 17:05] LABS: Bedside Glucose 208 mg/dL (70-110)
--- NOTE | 2018-03-02 19:05 | RAD_ITS ---
STUDY: X-RAY CHEST REASON FOR EXAM: Male, 67 years old. Line placement TECHNIQUE: Single AP portable view of the chest. COMPARISON: March 02, 2018, earlier the same day FINDINGS: PICC on the right has been advanced and extends to the lower superior vena cava. The lungs are clear and expanded. There is no demonstrated pleural abnormality. Sternal cerclage wires and vascular clips are present from a prior sternotomy and coronary artery bypass graft procedure (CABG). Normal mediastinum and ita. Normal visualized pulmonary arteries. Normal visualized aortic arch and descending thoracic aorta. Normal visualized thoracic spine. Normal visualized ribs, clavicles, and shoulders. There is no demonstrated abnormality of the visualized soft tissue structures of the upper abdomen. RAD/CXR for Line Placement IMPRESSION: Adjustment of catheter. No focal infiltrate. No pneumothorax. Electronically Signed: Car Obrien MD at 20:02 EDT , Service support ,
[2018-03-02 21:16] LABS: Bedside Glucose 244 mg/dL (70-110)
[2018-03-02 22:01] VITALS: BP 114/67; PULSE 89
[2018-03-02] MEDS: Pravastatin 80 MG Tablet PO (22:01)
[2018-03-02] MEDS: Pramipexole Di-HCl 0.25 MG Tablet PO (22:01)
[2018-03-02] MEDS: Tamsulosin HCl 0.4 MG Capsule PO (22:02)
[2018-03-02] MEDS: 0.9% NaCl IVPB Med Flush (250 mL) 15 ML IV (22:11)
[2018-03-03 04:28] LABS: Absolute Lymphocyte Count 1.53 X10^3/ul (0.83-4.51); Absolute Neutrophil Count 3.3 X10^3/uL (2.0-7.7); Basophil# 0.02 X10^3/uL; Basophil% 0.4 % (0-1); Eosinophil# 0.18 X10^3/uL; Eosinophils% 3.2 % (0-5); Hematocrit 34.1 % (40-54); Hemoglobin 10.8 g/dl (13.0-16.5); Lymphocyte # 1.53 X10^3/ul (4.0); Lymphocyte % 27.1 % (19-41); Mean Corp Hgb Conc 31.7 g/gl (32-36); Mean Corpuscular Hgb 30.5 pg (27.0-32.0); Mean Corpuscular Volume 96.3 fL (80-94); Mean Platelet Vol. 9.5 fl (6.2-12.0); Monocyte# 0.59 X10^3/uL; Monocyte% 10.5 % (0-10); Neutrophil # 3.31 X10^3/uL (2.7-7.7); Neutrophil % 58.6 % (47-70); Platelet Count 210 K/mm3 (150-450); RBC Distribution Width CV 17.1 % (11.6-14.6); RBC Distribution Width SD 60.6 fl (35.1-43.9); Red Blood Count 3.54 M/mm3 (4.6-6.2); White Blood Count 5.6 K/mm3 (4.4-11.0)
[2018-03-03 04:34] LABS: Anion Gap 9 (5-15); BUN 15 mg/dL (7-18); BUN/Creat Ratio 19.8 RATIO (10-20); Calcium,Total 9.1 mg/dL (8.5-10.1); Chloride 103 mmol/L (98-107); Creatinine, Serum 0.76 mg/dL (0.70-1.30); EST Glomerular Filtration Rate 109 mL/min (>60); Est Glom Filt Rate - Afr Amer 132 mL/min (>60); Estimated Creatinine Clearance 81.01 ml/min; Glucose 152 mg/dL (74-106); POSITIVE COUNT NO; POSITIVE DIFFERENTIAL NO; POSITIVE MORPHOLOGY NO; Potassium 4.1 mmol/L (3.5-5.1); Sodium Level 139 mmol/L (136-145)
[2018-03-03] MEDS: Fluticasone 0.05% 1 SPRAY NASAL.SRY 2 SPRAY NASAL (04:49)
[2018-03-03] MEDS: Enoxaparin 40 MG/0.4 ML Syringe SC (04:50)
[2018-03-03] MEDS: Nystatin Powder 15gm Bottle 1 APPLIC TOPICAL ×2 (04:51→22:04)
[2018-03-03 04:52] VITALS: BP 110/75; PULSE 85
[2018-03-03] MEDS: Metoprolol Tartrate 50 MG Tablet 150 MG PO ×3 (04:52→21:51)
[2018-03-03] MEDS: Iron Polysaccharide Complex 150 MG CAPSULE PO (04:52)
[2018-03-03] MEDS: Amantadine 100 MG Capsule PO (04:52)
[2018-03-03] MEDS: Pantoprazole Sodium 40 MG Tablet PO (04:52)
[2018-03-03] MEDS: oxyCODONE 5 MG Tablet PO ×2 (04:52→21:56)
[2018-03-03] MEDS: Furosemide 40 MG Tablet PO ×2 (04:53→13:09)
[2018-03-03] MEDS: Linezolid 600 MG Tablet PO ×2 (04:53→17:30)
[2018-03-03] MEDS: Senna/Docusate Sodium 1 Tablet 2 TABLET PO ×2 (04:53→17:30)
[2018-03-03] MEDS: Polyethylene Glycol 3350 17 GM PACKET PO (04:53)
[2018-03-03] MEDS: Piperacil/Tazobactam 3.375 GM Q8 PREMIX IV ×3 (05:08→21:50)
[2018-03-03] MEDS: Budesonide Respules 0.5 MG/2 ML AMPUL.NEB. INHALATION ×2 (06:40→20:03)
[2018-03-03 06:55] LABS: Bedside Glucose 163 mg/dL (70-110)
[2018-03-03 07:24] LABS: Erythrocyte Sedimentation Rate 46 mm/hr (0-20)
--- NOTE | 2018-03-03 07:58 | NURSING ---
Addendum entered by Julissa West 03/03/18 08:04: Rt fifth toe cleansed with NS, DSD applied. Original Note: RN administering medications this AM. LEG ASSEMBLER providing AM care. RN noticed bright red blood on sheets next to right foot. Right fifth toe with blood. Toe nail noted in bed next to right foot. LEG ASSEMBLER applied lotion to feet shortly prior to blood found on sheets. No blood noted on right foot when lotion was applied. Will update Dr Luis.
[2018-03-03] MEDS: Magnesium Oxide 400 MG Tablet PO ×3 (08:51→17:30)
[2018-03-03] MEDS: Insulin Lispro 100 UNIT/ML INSULN.PEN 7 UNIT SC ×3 (08:51→17:43)
[2018-03-03] MEDS: Ascorbic Acid 500 MG Tablet 1000 MG PO (08:52)
[2018-03-03] MEDS: Acetaminophen 500 MG Tablet 1000 MG PO (09:06)
--- NOTE | 2018-03-03 10:48 | NURSING ---
Pt's PEG site with redness and green discharge. Dr. Luis made aware, NO for bacitracin ointment to site BID. Patient's right 5th toenail fell off, NO to apply CDD daily.
[2018-03-03 11:35] LABS: Bedside Glucose 247 mg/dL (70-110)
[2018-03-03] MEDS: Smz/Tmp Ds Tablet 1 TABLET PO ×2 (13:04→17:30)
[2018-03-03 14:31] VITALS: BP 140/77; PULSE 103
[2018-03-03 16:00] VITALS: BP 120/68; PULSE 95; RESP 18; TEMP 36.1; O2SAT 97
[2018-03-03 17:21] LABS: Bedside Glucose 162 mg/dL (70-110)
[2018-03-03 20:12] VITALS: PULSE 76; RESP 18
[2018-03-03 21:10] LABS: Bedside Glucose 209 mg/dL (70-110)
[2018-03-03] MEDS: 0.9% NaCl IVPB Med Flush (250 mL) 15 ML IV (21:50)
[2018-03-03 21:51] VITALS: BP 120/68; PULSE 96
[2018-03-03] MEDS: Tamsulosin HCl 0.4 MG Capsule PO (21:51)
[2018-03-03] MEDS: Pravastatin 80 MG Tablet PO (21:51)
[2018-03-03] MEDS: Pramipexole Di-HCl 0.25 MG Tablet PO (21:51)
[2018-03-03] MEDS: 0.9% NaCl PICC Flush IV (21:52)
[2018-03-04] MEDS: BACITRACIN 15 GM Tube 1 APPLIC TOPICAL ×2 (05:08→14:16)
[2018-03-04] MEDS: Piperacil/Tazobactam 3.375 GM Q8 PREMIX IV ×3 (05:09→21:31)
[2018-03-04 05:12] VITALS: BP 120/74; PULSE 101
[2018-03-04] MEDS: Furosemide 40 MG Tablet PO ×2 (05:12→13:20)
[2018-03-04] MEDS: Pantoprazole Sodium 40 MG Tablet PO (05:12)
[2018-03-04] MEDS: Iron Polysaccharide Complex 150 MG CAPSULE PO (05:12)
[2018-03-04] MEDS: Linezolid 600 MG Tablet PO ×2 (05:12→18:44)
[2018-03-04] MEDS: Amantadine 100 MG Capsule PO (05:12)
[2018-03-04] MEDS: Enoxaparin 40 MG/0.4 ML Syringe SC (05:12)
[2018-03-04] MEDS: Polyethylene Glycol 3350 17 GM PACKET PO (05:12)
[2018-03-04] MEDS: Senna/Docusate Sodium 1 Tablet 2 TABLET PO ×2 (05:12→16:50)
[2018-03-04] MEDS: Metoprolol Tartrate 50 MG Tablet 150 MG PO ×3 (05:12→21:30)
[2018-03-04] MEDS: Fluticasone 0.05% 1 SPRAY NASAL.SRY 2 SPRAY NASAL (05:14)
[2018-03-04] MEDS: Nystatin Powder 15gm Bottle 1 APPLIC TOPICAL ×2 (05:26→21:31)
[2018-03-04 06:48] VITALS: PULSE 72; RESP 18
[2018-03-04] MEDS: Budesonide Respules 0.5 MG/2 ML AMPUL.NEB. INHALATION (06:48)
[2018-03-04 06:51] LABS: Bedside Glucose 187 mg/dL (70-110)
[2018-03-04] MEDS: Magnesium Oxide 400 MG Tablet PO ×3 (09:27→16:50)
[2018-03-04] MEDS: Smz/Tmp Ds Tablet 1 TABLET PO ×2 (09:27→16:50)
[2018-03-04] MEDS: Ascorbic Acid 500 MG Tablet 1000 MG PO (09:28)
[2018-03-04] MEDS: Insulin Lispro 100 UNIT/ML INSULN.PEN 7 UNIT SC ×3 (09:29→16:59)
[2018-03-04 11:31] LABS: Bedside Glucose 259 mg/dL (70-110)
[2018-03-04 13:17] VITALS: BP 131/63; PULSE 106; RESP 18; TEMP 37; O2SAT 97
[2018-03-04 13:20] VITALS: BP 131/63; PULSE 106
[2018-03-04 16:36] LABS: Bedside Glucose 194 mg/dL (70-110)
[2018-03-04 21:21] LABS: Bedside Glucose 215 mg/dL (70-110)
[2018-03-04 21:30] VITALS: PULSE 98
[2018-03-04] MEDS: 0.9% NaCl IVPB Med Flush (250 mL) 15 ML IV (21:30)
[2018-03-04] MEDS: Pravastatin 80 MG Tablet PO (21:30)
[2018-03-04] MEDS: Pramipexole Di-HCl 0.25 MG Tablet PO (21:30)
[2018-03-04] MEDS: Tamsulosin HCl 0.4 MG Capsule PO (21:30)
[2018-03-04] MEDS: 0.9% NaCl PICC Flush IV (21:31)
[2018-03-05] VITALS (7 sets, daily range): BP systolic 109–147; BP diastolic 51–68; PULSE 69–99; RESP 16–20; TEMP 35.8–36.4; O2SAT 94–98
[2018-03-05] MEDS: Metoprolol Tartrate 50 MG Tablet 150 MG PO ×3 (05:22→20:36)
[2018-03-05] MEDS: Furosemide 40 MG Tablet PO ×2 (05:23→13:43)
[2018-03-05] MEDS: Enoxaparin 40 MG/0.4 ML Syringe SC (05:23)
[2018-03-05] MEDS: Senna/Docusate Sodium 1 Tablet 2 TABLET PO ×2 (05:23→17:13)
[2018-03-05] MEDS: Pantoprazole Sodium 40 MG Tablet PO (05:23)
[2018-03-05] MEDS: Amantadine 100 MG Capsule PO (05:23)
[2018-03-05] MEDS: Linezolid 600 MG Tablet PO (05:23)
[2018-03-05] MEDS: oxyCODONE 5 MG Tablet PO ×3 (05:24→22:58)
[2018-03-05] MEDS: Polyethylene Glycol 3350 17 GM PACKET PO (05:24)
[2018-03-05] MEDS: Acetaminophen 500 MG Tablet 1000 MG PO (05:24)
[2018-03-05] MEDS: Fluticasone 0.05% 1 SPRAY NASAL.SRY 2 SPRAY NASAL (05:25)
[2018-03-05] MEDS: BACITRACIN 15 GM Tube 1 APPLIC TOPICAL ×2 (05:25→13:49)
[2018-03-05] MEDS: Piperacil/Tazobactam 3.375 GM Q8 PREMIX IV (05:26)
[2018-03-05] MEDS: Iron Polysaccharide Complex 150 MG CAPSULE PO (05:27)
[2018-03-05] MEDS: Nystatin Powder 15gm Bottle 1 APPLIC TOPICAL ×2 (05:55→20:38)
[2018-03-05] MEDS: Budesonide Respules 0.5 MG/2 ML AMPUL.NEB. INHALATION (06:44)
[2018-03-05 07:31] LABS: Bedside Glucose 204 mg/dL (70-110)
[2018-03-05] MEDS: Ascorbic Acid 500 MG Tablet 1000 MG PO (07:57)
[2018-03-05] MEDS: Smz/Tmp Ds Tablet 1 TABLET PO (07:57)
[2018-03-05] MEDS: Magnesium Oxide 400 MG Tablet PO ×3 (07:57→17:13)
[2018-03-05] MEDS: Insulin Lispro 100 UNIT/ML INSULN.PEN 7 UNIT SC ×3 (07:58→17:19)
[2018-03-05 11:20] LABS: Bedside Glucose 224 mg/dL (70-110)
--- NOTE | 2018-03-05 11:54 | CASEMGMT ---
Insurance Clinical information faxed. Pending continued stay approval at this time. Auth#[id number] Nora JERONIMO, MERCHANDISE PLANNER
--- NOTE | 2018-03-05 14:31 | PCM.PN.ID ---
Subjective: Feeling ok, no fever, no abd pain. - Physical Exam General: Alert, Cooperative, No apparent distress Lungs: Clear to auscultation, Normal air movement Cardiovascular: Regular rate, Regular Rhythm Abdomen: Soft, Non Tender, Non-Distended Skin: No rashes Vital Signs Temp Pulse Resp BP Pulse Ox 97.5 F L 91 20 H 136/51 H 98 03/05/18 05:15 03/05/18 13:44 03/05/18 06:44 03/05/18 13:44 03/05/18 06:44 Oxygen Flow Rate (L/min) 5 Oxygen Delivery Method CPAP Weight: 106.708 kg Body Mass Index (BMI) 33.0 Finger Stick Blood Glucose 250 Intake and Output for Last 24 Hours 03/03/18 03/04/18 03/05/18 23:59 23:59 23:59 Intake Total 600 / 600 1020 / 1020 720 / 720 Output Total 2200 / 2200 2750 / 2750 1350 / 1350 Balance -1600 / -1600 -1730 / -1730 -630 / -630 POC Glucose 03/05/18 03/05/18 03/04/18 10:58 07:20 20:53 POC Glucose 224 H 204 H 215 H 03/04/18 16:28 POC Glucose 194 H Medical Necessity - Tobacco Use Smoking Status: Former smoker Tobacco Use: Cigarettes Route of nutrition/ use of supplements: [] Nutritional Intake: [] IV Site: [] Lane Catheter: [] - Assessment/Plan Antibiotics: [] Assessment/Plan: [] Sacral osteo - s/p OR 01/[address] Juarez. Micro (+) for mssa, VRE, ecoli, MDR serratia and others. On zosyn, bactrim, and linezolid for planned 6 week course. Reviewed labs, no signs of side effects. Planned stop date today and will monitor off of abx. Will follow.
[2018-03-05 17:11] LABS: Bedside Glucose 211 mg/dL (70-110)
[2018-03-05] MEDS: Tamsulosin HCl 0.4 MG Capsule PO (20:36)
[2018-03-05] MEDS: Pramipexole Di-HCl 0.25 MG Tablet PO (20:38)
[2018-03-05] MEDS: Pravastatin 80 MG Tablet PO (20:38)
[2018-03-05] MEDS: 0.9% NaCl PICC Flush IV (20:51)
[2018-03-05 21:26] LABS: Bedside Glucose 219 mg/dL (70-110)
--- NOTE | 2018-03-05 22:33 | NURSING ---
Offered to apply pt's cpap at this time, pt refused.
[2018-03-06] MEDS: Polyethylene Glycol 3350 17 GM PACKET PO (04:26)
[2018-03-06] MEDS: Fluticasone 0.05% 1 SPRAY NASAL.SRY 2 SPRAY NASAL (04:26)
[2018-03-06] MEDS: Iron Polysaccharide Complex 150 MG CAPSULE PO (04:29)
[2018-03-06] MEDS: Furosemide 40 MG Tablet PO ×2 (04:29→13:29)
[2018-03-06] MEDS: Enoxaparin 40 MG/0.4 ML Syringe SC (04:29)
[2018-03-06 04:30] VITALS: BP 109/63; PULSE 93
[2018-03-06] MEDS: Pantoprazole Sodium 40 MG Tablet PO (04:30)
[2018-03-06] MEDS: Amantadine 100 MG Capsule PO (04:30)
[2018-03-06] MEDS: Metoprolol Tartrate 50 MG Tablet 150 MG PO ×3 (04:30→22:21)
[2018-03-06] MEDS: Senna/Docusate Sodium 1 Tablet 2 TABLET PO ×2 (04:30→17:30)
[2018-03-06] MEDS: Nystatin Powder 15gm Bottle 1 APPLIC TOPICAL ×2 (04:30→22:21)
[2018-03-06] MEDS: BACITRACIN 15 GM Tube 1 APPLIC TOPICAL ×2 (04:31→13:35)
[2018-03-06] MEDS: Budesonide Respules 0.5 MG/2 ML AMPUL.NEB. INHALATION (06:37)
[2018-03-06 06:38] VITALS: PULSE 94; RESP 16; O2SAT 93
[2018-03-06 07:01] LABS: Bedside Glucose 190 mg/dL (70-110)
[2018-03-06] MEDS: Insulin Lispro 100 UNIT/ML INSULN.PEN 7 UNIT SC ×3 (09:20→17:35)
[2018-03-06] MEDS: Magnesium Oxide 400 MG Tablet PO ×3 (09:21→17:31)
[2018-03-06] MEDS: Ascorbic Acid 500 MG Tablet 1000 MG PO (09:22)
[2018-03-06 11:01] LABS: Bedside Glucose 282 mg/dL (70-110)
[2018-03-06 13:31] VITALS: BP 123/73; PULSE 107
[2018-03-06] MEDS: oxyCODONE 5 MG Tablet PO (13:34)
[2018-03-06 15:15] VITALS: BP 128/66; PULSE 75; RESP 16; TEMP 36; O2SAT 98
[2018-03-06 17:01] LABS: Bedside Glucose 190 mg/dL (70-110)
[2018-03-06 21:26] LABS: Bedside Glucose 254 mg/dL (70-110)
[2018-03-06 22:00] VITALS: O2SAT 97
[2018-03-06 22:21] VITALS: PULSE 107
[2018-03-06] MEDS: Pramipexole Di-HCl 0.25 MG Tablet PO (22:21)
[2018-03-06] MEDS: Pravastatin 80 MG Tablet PO (22:21)
[2018-03-06] MEDS: Tamsulosin HCl 0.4 MG Capsule PO (22:21)
[2018-03-07] MEDS: Nystatin Powder 15gm Bottle 1 APPLIC TOPICAL ×2 (06:34→20:19)
[2018-03-07] MEDS: Enoxaparin 40 MG/0.4 ML Syringe SC (06:34)
[2018-03-07] MEDS: Fluticasone 0.05% 1 SPRAY NASAL.SRY 2 SPRAY NASAL (06:34)
[2018-03-07 06:35] VITALS: PULSE 99
[2018-03-07] MEDS: Senna/Docusate Sodium 1 Tablet 2 TABLET PO ×2 (06:35→16:32)
[2018-03-07] MEDS: Furosemide 40 MG Tablet PO ×2 (06:35→13:12)
[2018-03-07] MEDS: Metoprolol Tartrate 50 MG Tablet 150 MG PO ×3 (06:35→20:17)
[2018-03-07] MEDS: Iron Polysaccharide Complex 150 MG CAPSULE PO (06:35)
[2018-03-07] MEDS: Pantoprazole Sodium 40 MG Tablet PO (06:35)
[2018-03-07] MEDS: Amantadine 100 MG Capsule PO (06:35)
[2018-03-07] MEDS: BACITRACIN 15 GM Tube 1 APPLIC TOPICAL ×2 (06:44→16:33)
[2018-03-07 06:52] VITALS: PULSE 92; RESP 18; O2SAT 91
[2018-03-07] MEDS: Budesonide Respules 0.5 MG/2 ML AMPUL.NEB. INHALATION (06:52)
[2018-03-07 07:01] LABS: Bedside Glucose 154 mg/dL (70-110)
[2018-03-07] MEDS: Insulin Lispro 100 UNIT/ML INSULN.PEN 7 UNIT SC ×3 (08:15→17:37)
[2018-03-07] MEDS: Ascorbic Acid 500 MG Tablet 1000 MG PO (08:15)
[2018-03-07] MEDS: Magnesium Oxide 400 MG Tablet PO ×3 (08:15→16:32)
[2018-03-07 11:16] LABS: Bedside Glucose 346 mg/dL (70-110)
[2018-03-07 13:12] VITALS: PULSE 104
[2018-03-07 15:39] VITALS: BP 143/68; PULSE 76; RESP 20; TEMP 37; O2SAT 99
[2018-03-07 17:00] LABS: Bedside Glucose 195 mg/dL (70-110)
[2018-03-07] MEDS: Pravastatin 80 MG Tablet PO (20:16)
[2018-03-07] MEDS: oxyCODONE 5 MG Tablet PO (20:16)
[2018-03-07] MEDS: Pramipexole Di-HCl 0.25 MG Tablet PO (20:16)
[2018-03-07 20:17] VITALS: PULSE 92
[2018-03-07] MEDS: Tamsulosin HCl 0.4 MG Capsule PO (20:17)
[2018-03-07 21:26] LABS: Bedside Glucose 237 mg/dL (70-110)
[2018-03-07 22:30] VITALS: O2SAT 97
[2018-03-08] MEDS: Fluticasone 0.05% 1 SPRAY NASAL.SRY 2 SPRAY NASAL (06:06)
[2018-03-08] MEDS: Nystatin Powder 15gm Bottle 1 APPLIC TOPICAL ×2 (06:06→20:48)
[2018-03-08 06:07] VITALS: PULSE 99
[2018-03-08] MEDS: Amantadine 100 MG Capsule PO (06:07)
[2018-03-08] MEDS: Senna/Docusate Sodium 1 Tablet 2 TABLET PO ×2 (06:07→17:08)
[2018-03-08] MEDS: Iron Polysaccharide Complex 150 MG CAPSULE PO (06:07)
[2018-03-08] MEDS: Metoprolol Tartrate 50 MG Tablet 150 MG PO ×3 (06:07→20:39)
[2018-03-08] MEDS: Enoxaparin 40 MG/0.4 ML Syringe SC (06:07)
[2018-03-08] MEDS: Pantoprazole Sodium 40 MG Tablet PO (06:07)
[2018-03-08] MEDS: BACITRACIN 15 GM Tube 1 APPLIC TOPICAL ×2 (06:07→12:48)
[2018-03-08] MEDS: Furosemide 40 MG Tablet PO ×2 (06:07→12:47)
[2018-03-08 07:01] LABS: Bedside Glucose 187 mg/dL (70-110)
[2018-03-08 07:25] VITALS: PULSE 88; RESP 18
[2018-03-08] MEDS: Budesonide Respules 0.5 MG/2 ML AMPUL.NEB. INHALATION (07:25)
[2018-03-08] MEDS: Ascorbic Acid 500 MG Tablet 1000 MG PO (07:55)
[2018-03-08] MEDS: Magnesium Oxide 400 MG Tablet PO ×3 (07:55→17:08)
[2018-03-08] MEDS: Insulin Lispro 100 UNIT/ML INSULN.PEN 7 UNIT SC ×3 (07:56→17:15)
[2018-03-08 11:11] LABS: Bedside Glucose 308 mg/dL (70-110)
[2018-03-08] MEDS: oxyCODONE 5 MG Tablet PO ×2 (11:42→20:42)
--- NOTE | 2018-03-08 11:51 | NURSING ---
wound photo: sacrum
--- NOTE | 2018-03-08 12:14 | NURSING ---
Colostomy appliance changed. peristomal skin is intact. stoma sits slightly above skin level. stoma is pink and moist. measures approx 1 1/2. cleansed peristomal skin with warm water. pat dry. applied a new 2 piece flat Dianne appliance with a small amount of stoma paste. pt tolerated well.
[2018-03-08 12:47] VITALS: BP 119/63; PULSE 102
--- NOTE | 2018-03-08 12:48 | PCM.PN.ID ---
Subjective: Feeling well, no fever, no nausea. - Physical Exam General: Alert, Cooperative, No apparent distress Lungs: Clear to auscultation, Normal air movement Cardiovascular: Regular rate, Regular Rhythm Abdomen: Soft, Non Tender, Non-Distended Skin: No rashes Vital Signs Temp Pulse Resp BP Pulse Ox 98.6 F 88 18 143/68 H 97 03/07/18 15:39 03/08/18 07:25 03/08/18 07:25 03/07/18 15:39 03/07/18 22:30 Oxygen Flow Rate (L/min) 2 Oxygen Delivery Method Room Air Weight: 106.254 kg Body Mass Index (BMI) 33.0 Finger Stick Blood Glucose 250 Intake and Output for Last 24 Hours 03/06/18 03/07/18 03/08/18 23:59 23:59 23:59 Intake Total 840 / 840 920 / 920 600 / 600 Output Total 3150 / 3150 3200 / 3200 1050 / 1050 Balance -2310 / -2310 -2280 / -2280 -450 / -450 POC Glucose 03/08/18 03/08/18 03/07/18 11:03 06:50 21:14 POC Glucose 308 H 187 H 237 H 03/07/18 16:52 POC Glucose 195 H Medical Necessity - Tobacco Use Smoking Status: Former smoker Tobacco Use: Cigarettes Route of nutrition/ use of supplements: [] Nutritional Intake: [] IV Site: [] Lane Catheter: [] - Assessment/Plan Antibiotics: [] Assessment/Plan: [] Sacral osteo - s/p OR 01/[address] Juarez. Micro (+) for mssa, VRE, ecoli, MDR serratia and others. On zosyn, bactrim, and linezolid for 6 week course, stopped 03/05. Stable off abx. Will follow as needed, please call with any ?s.
--- NOTE | 2018-03-08 13:01 | CASEMGMT ---
Insurance Continued stay approval denied at this time with last cover day being 03/10/18 and resident to discharge or financial responsibility to begin 03/11/18. Auth#[id number] Nora JERONIMO, HYDROSTATIC TESTER
--- NOTE | 2018-03-08 14:27 | CASEMGMT ---
Brief interview for mental status (BIMS) and resident mood interview (PHQ-9) completed on this day. BIMS score 13/15. PHQ-9 score
--- NOTE | 2018-03-08 14:28 | CASEMGMT ---
Addendum entered by Nora Adhikari 03/08/18 14:33: Resident will discharge to intermediate level of care to extended care facility. Original Note: Social Work Spoke with resident and resident spouse in room. This psychotherapist social worker communicating that continued stay has been denied by insurance with a last cover day of 03/10/18 and resident to discharge or financial responsibility to begin on 03/11/18. Resident and resident spouse voicing understanding and plan for resident to transition to an extended care facility, the [place] [facility] [place]. Resident is pending Medicaid at this time. Resident and resident spouse aware of appeal process and are choosing to not appeal at this time. Support given. [facility] Voicemail left inquire about Medicaid pending number. Telephone call to [facility], [place]. Voicemail left for [place] inquiring about bed openings and Medicaid pending. Transfer form initiated. Proposed discharge date: 03/11/18 PLAN: Discharge to the [facility] pending approval. Nora JERONIMO, ACCOUNTING RECRUITER
--- NOTE | 2018-03-08 14:41 | CASEMGMT ---
Social Work Telephone call from [employer] [facility], [place]. Resident pending medicaid number is: [id number]. Proposed discharge date: 03/11/18 PLAN: Discharge to the [place] [facility] [place], [facility] pending approval. Nora JERONIMO, PLACEMENT SPECIALIST
[2018-03-08 15:23] VITALS: BP 121/74; PULSE 88; RESP 18; TEMP 36.1; O2SAT 98
[2018-03-08 17:00] LABS: Bedside Glucose 242 mg/dL (70-110)
[2018-03-08] MEDS: 0.9% NaCl PICC Flush IV ×2 (17:06→19:47)
[2018-03-08 19:55] VITALS: O2SAT 99
[2018-03-08 20:39] VITALS: BP 128/76; PULSE 105
[2018-03-08] MEDS: Tamsulosin HCl 0.4 MG Capsule PO (20:39)
[2018-03-08] MEDS: Pramipexole Di-HCl 0.25 MG Tablet PO (20:39)
[2018-03-08] MEDS: Pravastatin 80 MG Tablet PO (20:39)
[2018-03-08 21:01] LABS: Bedside Glucose 297 mg/dL (70-110)
--- NOTE | 2018-03-08 21:55 | TREXTCAR_ITS ---
- Diet 02/03/18 15:20 Diet: Cardiac: Calorie-Controlled Food consistency:: Mechanical Soft/Ground Liquid Consistency:: [place] Thick Dietary Modifications:: Mechanical Soft Diet [place] Thick Liquids Type of Dietary Supplement:: Ensure Clear Is pt able to select menu?: Yes Diet Comments: low sodium How many daily calories?: 2000 calorie - Routine Orders/Code Status Suppository Type: Dulcolax 10mg Suppository Frequency: Daily PRN Routine Lab Work: CBC, BMP Code Status: DNRCC-A - Wound(s) mid Lower abd Wound Type: Surgical Incision Rt lower Abd Wound Type: Surgical Incision RUQ Wound Type: Surgical Incision Coccyx Wound Type: Pressure Injury Dressing Change: KCI wound vac LLQ Wound Type: Blister sacrum Wound Type: Pressure Injury Dressing Change: KCI wound VAC Right fifth toe Wound Type: Toe nail removal Dressing Change: Dry Sterile Dressing Peg tube site Wound Type: Surgical Incision Dressing Change: bacitracin, DSD - Therapies Weight Bearing: Weight bearing as tolerated Extremity Affected:: Bilateral Lower Physical Therapy: Eval and Treat Occupational Therapy: Eval and Treat - Problem/Diagnosis (1) Traumatic brain injury Status: Chronic Current Visit: No (2) Dysphagia Status: Chronic Current Visit: No (3) Insomnia Status: Chronic Current Visit: No (4) Vitamin D deficiency Status: Chronic Current Visit: No (5) Depression Status: Chronic Current Visit: No (6) GERD (gastroesophageal reflux disease) Status: Chronic Current Visit: No (7) BPH (benign prostatic hyperplasia) Status: Chronic Current Visit: No (8) Right hemiplegia Status: Chronic Current Visit: No (9) Congestive heart failure Status: Chronic Current Visit: No (10) Alcohol abuse Status: Chronic Current Visit: No (11) Sleep apnea Status: Chronic Current Visit: No (12) Diabetes mellitus Status: Chronic Current Visit: No (13) Infected decubitus ulcer Status: Acute Current Visit: No (14) Restless leg syndrome Status: Chronic Current Visit: No (15) Hyperlipidemia Status: Chronic Current Visit: No (16) COPD (chronic obstructive pulmonary disease) Status: Chronic Current Visit: No (17) Hypertension Status: Chronic Current Visit: No (18) CAD (coronary artery disease) Status: Chronic Current Visit: No - Allergies/Procedures Done in Hospital Allergies/Adverse Reactions: Allergies atorvastatin Allergy (Verified 01/21/18 15:52) Hives cilostazol Allergy (Verified 01/21/18 15:52) Hives colestipol Allergy (Verified 01/21/18 15:52) Hives diltiazem Allergy (Verified 01/21/18 15:52) Hives gemfibrozil Allergy (Verified 01/21/18 15:52) Hives naproxen [From Naprosyn] Allergy (Verified 01/21/18 15:52) Hives niacin Allergy (Verified 01/21/18 15:52) Hives Penicillins Allergy (Verified 01/21/18 15:52) Hives pravastatin Allergy (Verified 01/21/18 15:52) Hives procaine [From Novocain] Allergy (Verified 01/21/18 15:52) Hives rosuvastatin Allergy (Verified 01/21/18 15:52) Hives simvastatin Allergy (Verified 01/21/18 15:52) Hives isosorbide Adverse Reaction (Severe, Verified 01/21/18 15:52) Unknown - Type of Care/Length of Stay Estimated LOS: More Than 30 Days Type of Care Needed: Intermediate Rehab Potential: Fair Prognosis: Fair - Additional Orders/Day of Discharge Day of Discharge: 03/11/18 - Dietary and Speech Recommendations Dietitian Recommendations/Changes: Will continue to provide magic cup instead of ensure clear per res preference and d/t thickened liquids. Rec continue [place] bid to help w/ skin healing - Follow Up Care Primary Care Physician: Julissa Lamb MD [Primary Care Provider] - Please follow up with your Primary Care Physician in: 1 week.
--- NOTE | 2018-03-08 21:55 | PCM.DC.SUM ---
Discharge Date and Diagnosis Date of Admission: 02/02/18 Date of Discharge: 03/11/18 - Secondary Discharge Diagnosis Chronic Problems (Last Reviewed 01/15/18 @ 18:40 by Darnell Felix DO) Hemiplegia affecting right dominant side (Chronic) 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, stage 4 (Chronic) Fall (Chronic) Traumatic brain injury (Chronic) Intraparenchymal hemorrhage of brain (Chronic) Subarachnoid hemorrhage (Chronic) Subdural hematoma (Chronic) Intraventricular hemorrhage (Chronic) Right scapula fracture (Chronic) Tobacco abuse (Chronic) Dysphagia (Chronic) Insomnia (Chronic) Vitamin D deficiency (Chronic) Depression (Chronic) GERD (gastroesophageal reflux disease) (Chronic) BPH (benign prostatic hyperplasia) (Chronic) Right hemiplegia (Chronic) Congestive heart failure (Chronic) Alcohol abuse (Chronic) Sleep apnea (Chronic) Diabetes mellitus (Chronic) Encounter for long-term current use of high risk medication (Chronic) Obstructive sleep apnea (Chronic) 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) S/P CABG x3 with right radial to LAD, SVG to RCA, and SVG to OM 2; stenting to LAD in February 2017; Presence of coronary angioplasty implant and graft (Chronic) Presence of aortocoronary bypass graft (Chronic) CABG X 3 2001 ?, Radial artery -LAD, SVG-RCA, SVG-OM2 Non-ST elevation myocardial infarction (NSTEMI), initial care episode (Chronic) 02/16/17 Ischemic cardiomyopathy (Chronic) Restless leg syndrome (Chronic) Hyperlipidemia (Chronic) Hypertensive emergency (Chronic) COPD (chronic obstructive pulmonary disease) (Chronic) Hypertension (Chronic) Morbid obesity (Chronic) CAD (coronary artery disease) (Chronic) Stented coronary artery (Chronic) [facility] w/[id number] LAD (grafts occluded X 3) 02/20/17 Former smoker (Chronic) quit February 2017 Diabetes mellitus type 2 in obese (Chronic) Hx of CABG (Chronic) CABG X3 rADIAL ARTERY-lad, svg-rca, svg-om2. MULTIPLE CORONARY STENTS Hospital Course and Treatment Imaging Results: 02/03/18 15:20 Diet: Cardiac: Calorie-Controlled Food consistency:: Mechanical Soft/Ground Liquid Consistency:: [place] Thick Dietary Modifications:: Mechanical Soft Diet [place] Thick Liquids Type of Dietary Supplement:: Ensure Clear Is pt able to select menu?: Yes Diet Comments: low sodium How many daily calories?: 2000 calorie Clinical Impression(s) from Imaging Studies Chest X-Ray 03/02/18 19:05 IMPRESSION: Adjustment of catheter. No focal infiltrate. No pneumothorax. 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 01/29/18 - Laparoscopic diverting end sigmoid colostomy. Procedures: None Summary of Care Provided: The patient is a 67 year old Male with below past medical history hospitalized for infected stage 4 sacral pressure ulcer, underwent debridement with wound VAC 01/22/[address] Juarez, diverting colostomy per Dr. Arias, admitted to TCU with debility, here for rehabilitation, strengthening, wound care, intravenous antibiotics, prior to disposition determination. Resident finished 6 weeks of antibiotics 03/05/2018. Follow up with Dr. Wilkerson as necessary. Discharge to the [facility] [place], intermediate level of care. Discharge Diet: - - Mechanical soft, nectar thick liquids. Discharge Activity: Return to Normal Activity, Use Walker Weight Bearing Status: Weight bearing as tolerated Call your doctor if you observe: Fever of 101 or Higher, Inability to urinate, Inability to have a bowel movement, Shortness of breath, Chest pain, Uncontrolled pain Home Medications: Medications to take at Discharge Ipratropium/Albuterol Sulfate [Duoneb] 3 ml INHALATION Q2H PRN PRN 01/16/18 Metoprolol Tartrate 150 mg PO TID 01/16/18 Nitroglycerin [Nitrostat] 0.4 mg SUBLINGUAL Q5M PRN 01/16/18 Polyethylene Glycol 3350 [Miralax] 17 gm PO DAILY 01/16/18 Pravastatin [Pravachol] 80 mg PO QHS 01/16/18 Tamsulosin HCl [Flomax] 0.4 mg PO QHS 01/16/18 Argin/Glut/Cahmb/Collag/Mv-Min [[place] Packet] 1 each PO BIDCM 01/22/18 Magnesium Oxide [Mag-Ox 400] 400 mg PO TIDCM 01/22/18 Pantoprazole Sodium [Protonix] 40 mg PO DAILY 01/22/18 Pramipexole Di-HCl [Mirapex] 0.25 mg PO QHS 01/22/18 Amantadine [Symmetrel] 100 mg PO DAILY 02/02/18 Ascorbic Acid [Vitamin C] 1,000 mg PO DAILY@0800 02/02/18 Budesonide Aerosol [Pulmicort Respules] 0.5 mg INHALATION BID.RT 02/02/18 Furosemide [Lasix] 40 mg PO BIDLX 02/02/18 Heparin Sodium,Porcine/Pf [Heparin 500 Unit/5 ml (100/ml)] 500 unit IV UD PRN syringe 02/02/18 Iron Polysaccharide Complex [Ferrex 150] 150 mg PO DAILY 02/02/18 Lactobacillus Acidophilus [Acidophilus] 1 tablet PO BID 02/02/18 Nutritional Supplement [[place] - ORANGE FLAVOR] 1 packet PO BIDCM 02/02/18 Oxycodone [Oxyir] 5 mg PO 4X/DAY PRN PRN 7 Days #30 tab 02/02/18 Potassium Cloride Effervescent [Potassium Chl 25 Meq Eff (For Liquid)] 50 meq PO BIDCM 02/02/18 Acetaminophen [Tylenol] 1,000 mg PO Q8H PRN PRN tablet 03/08/18 Bacitracin Ointment 1 applic TOPICAL BID tube 03/08/18 Bisacodyl [Dulcolax] 10 mg PO DAILY PRN tablet 03/08/18 Budesonide Aerosol [Pulmicort Respules] 0.5 mg INHALATION BID.RT ampul.neb. 03/08/18 Fluticasone 0.05% [Flonase Nasal [place]] 2 spray NASAL DAILY nasal.sry 03/08/18 Insulin Glargine [Lantus SoloStar Pen] 10 units SC BID pen 03/08/18 Insulin Lispro [Humalog KwikPen] 7 unit SC TIDAC insuln.pen 03/08/18 Magnesium Oxide [Mag-Ox 400] 400 mg PO TIDCM tablet 03/08/18 Metoprolol Tartrate [Lopressor (beta stepan)] 150 mg PO TID tablet 03/08/18 Mineral Oil/Petrolatum,White [Eucerin] 1 applic TOPICAL 0600,2200 jar 03/08/18 Nystatin Powder [Mycostatin Powder] 1 applic TOPICAL 0600,2200 bottle 03/08/18 Oxycodone [Oxyir] 5 mg PO Q6H PRN PRN #30 tab 03/08/18 Polyethylene Glycol 3350 [Miralax] 17 gm PO DAILY packet 03/08/18 Senna/Docusate Sodium [Senokot-S] 2 tablet PO BID tablet 03/08/18 Following Prescrptions Were Given to Patient: Oxycodone [Oxyir] 5 mg PO Q6H PRN PRN #30 tab PRN Reason: Severe Pain (6-10/10) Primary Care Physician: Julissa Lamb MD [Primary Care Provider] - Please follow up with your Primary Care Physician in: 1 week. Disposition: Asstd Living/Non-Skill OR Minutes spent on discharge:: 35 Patient Condition:: Stable Medical Necessity - Tobacco Use Smoking Status: Former smoker Tobacco Use: Cigarettes Meaningful Use Info Meaningful Use Diagnoses (Choose all that apply): None applicable
--- NOTE | 2018-03-08 21:58 | DS.PCM_ITS ---
Discharge Date and Diagnosis Date of Admission: 02/02/18 Date of Discharge: 03/11/18 - Secondary Discharge Diagnosis Chronic Problems (Last Reviewed 01/15/18 @ 18:40 by Darnell Felix DO) Hemiplegia affecting right dominant side (Chronic) 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, stage 4 (Chronic) Fall (Chronic) Traumatic brain injury (Chronic) Intraparenchymal hemorrhage of brain (Chronic) Subarachnoid hemorrhage (Chronic) Subdural hematoma (Chronic) Intraventricular hemorrhage (Chronic) Right scapula fracture (Chronic) Tobacco abuse (Chronic) Dysphagia (Chronic) Insomnia (Chronic) Vitamin D deficiency (Chronic) Depression (Chronic) GERD (gastroesophageal reflux disease) (Chronic) BPH (benign prostatic hyperplasia) (Chronic) Right hemiplegia (Chronic) Congestive heart failure (Chronic) Alcohol abuse (Chronic) Sleep apnea (Chronic) Diabetes mellitus (Chronic) Encounter for long-term current use of high risk medication (Chronic) Obstructive sleep apnea (Chronic) 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) S/P CABG x3 with right radial to LAD, SVG to RCA, and SVG to OM 2; stenting to LAD in February 2017; Presence of coronary angioplasty implant and graft (Chronic) Presence of aortocoronary bypass graft (Chronic) CABG X 3 2001 ?, Radial artery -LAD, SVG-RCA, SVG-OM2 Non-ST elevation myocardial infarction (NSTEMI), initial care episode (Chronic) 02/16/17 Ischemic cardiomyopathy (Chronic) Restless leg syndrome (Chronic) Hyperlipidemia (Chronic) Hypertensive emergency (Chronic) COPD (chronic obstructive pulmonary disease) (Chronic) Hypertension (Chronic) Morbid obesity (Chronic) CAD (coronary artery disease) (Chronic) Stented coronary artery (Chronic) [facility] w/[id number] LAD (grafts occluded X 3) 02/20/17 Former smoker (Chronic) quit February 2017 Diabetes mellitus type 2 in obese (Chronic) Hx of CABG (Chronic) CABG X3 rADIAL ARTERY-lad, svg-rca, svg-om2. MULTIPLE CORONARY STENTS Hospital Course and Treatment Imaging Results: 02/03/18 15:20 Diet: Cardiac: Calorie-Controlled Food consistency:: Mechanical Soft/Ground Liquid Consistency:: [place] Thick Dietary Modifications:: Mechanical Soft Diet [place] Thick Liquids Type of Dietary Supplement:: Ensure Clear Is pt able to select menu?: Yes Diet Comments: low sodium How many daily calories?: 2000 calorie Clinical Impression(s) from Imaging Studies Chest X-Ray 03/02/18 19:05 IMPRESSION: Adjustment of catheter. No focal infiltrate. No pneumothorax. 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 01/29/18 - Laparoscopic diverting end sigmoid colostomy. Procedures: None Summary of Care Provided: The patient is a 67 year old Male with below past medical history hospitalized for infected stage 4 sacral pressure ulcer, underwent debridement with wound VAC 01/22/[address] Juarez, diverting colostomy per Dr. Arias, admitted to TCU with debility, here for rehabilitation, strengthening, wound care, intravenous antibiotics, prior to disposition determination. Resident finished 6 weeks of antibiotics 03/05/2018. Follow up with Dr. Wilkerson as necessary. Discharge to the [facility] [place], intermediate level of care. Discharge Diet: - - Mechanical soft, nectar thick liquids. Discharge Activity: Return to Normal Activity, Use Walker Weight Bearing Status: Weight bearing as tolerated Call your doctor if you observe: Fever of 101 or Higher, Inability to urinate, Inability to have a bowel movement, Shortness of breath, Chest pain, Uncontrolled pain Home Medications: Medications to take at Discharge Ipratropium/Albuterol Sulfate [Duoneb] 3 ml INHALATION Q2H PRN PRN 01/16/18 Metoprolol Tartrate 150 mg PO TID 01/16/18 Nitroglycerin [Nitrostat] 0.4 mg SUBLINGUAL Q5M PRN 01/16/18 Polyethylene Glycol 3350 [Miralax] 17 gm PO DAILY 01/16/18 Pravastatin [Pravachol] 80 mg PO QHS 01/16/18 Tamsulosin HCl [Flomax] 0.4 mg PO QHS 01/16/18 Argin/Glut/Cahmb/Collag/Mv-Min [[place] Packet] 1 each PO BIDCM 01/22/18 Magnesium Oxide [Mag-Ox 400] 400 mg PO TIDCM 01/22/18 Pantoprazole Sodium [Protonix] 40 mg PO DAILY 01/22/18 Pramipexole Di-HCl [Mirapex] 0.25 mg PO QHS 01/22/18 Amantadine [Symmetrel] 100 mg PO DAILY 02/02/18 Ascorbic Acid [Vitamin C] 1,000 mg PO DAILY@0800 02/02/18 Budesonide Aerosol [Pulmicort Respules] 0.5 mg INHALATION BID.RT 02/02/18 Furosemide [Lasix] 40 mg PO BIDLX 02/02/18 Heparin Sodium,Porcine/Pf [Heparin 500 Unit/5 ml (100/ml)] 500 unit IV UD PRN syringe 02/02/18 Iron Polysaccharide Complex [Ferrex 150] 150 mg PO DAILY 02/02/18 Lactobacillus Acidophilus [Acidophilus] 1 tablet PO BID 02/02/18 Nutritional Supplement [[place] - ORANGE FLAVOR] 1 packet PO BIDCM 02/02/18 Oxycodone [Oxyir] 5 mg PO 4X/DAY PRN PRN 7 Days #30 tab 02/02/18 Potassium Cloride Effervescent [Potassium Chl 25 Meq Eff (For Liquid)] 50 meq PO BIDCM 02/02/18 Acetaminophen [Tylenol] 1,000 mg PO Q8H PRN PRN tablet 03/08/18 Bacitracin Ointment 1 applic TOPICAL BID tube 03/08/18 Bisacodyl [Dulcolax] 10 mg PO DAILY PRN tablet 03/08/18 Budesonide Aerosol [Pulmicort Respules] 0.5 mg INHALATION BID.RT ampul.neb. 03/08/18 Fluticasone 0.05% [Flonase Nasal [place]] 2 spray NASAL DAILY nasal.sry 03/08/18 Insulin Glargine [Lantus SoloStar Pen] 10 units SC BID pen 03/08/18 Insulin Lispro [Humalog KwikPen] 7 unit SC TIDAC insuln.pen 03/08/18 Magnesium Oxide [Mag-Ox 400] 400 mg PO TIDCM tablet 03/08/18 Metoprolol Tartrate [Lopressor (beta stepan)] 150 mg PO TID tablet 03/08/18 Mineral Oil/Petrolatum,White [Eucerin] 1 applic TOPICAL 0600,2200 jar 03/08/18 Nystatin Powder [Mycostatin Powder] 1 applic TOPICAL 0600,2200 bottle 03/08/18 Oxycodone [Oxyir] 5 mg PO Q6H PRN PRN #30 tab 03/08/18 Polyethylene Glycol 3350 [Miralax] 17 gm PO DAILY packet 03/08/18 Senna/Docusate Sodium [Senokot-S] 2 tablet PO BID tablet 03/08/18 Following Prescrptions Were Given to Patient: Oxycodone [Oxyir] 5 mg PO Q6H PRN PRN #30 tab PRN Reason: Severe Pain (6-10/10) Primary Care Physician: Julissa Lamb MD [Primary Care Provider] - Please follow up with your Primary Care Physician in: 1 week. Disposition: Asstd Living/Non-Skill [place] Minutes spent on discharge:: 35 Patient Condition:: Stable Medical Necessity - Tobacco Use Smoking Status: Former smoker Tobacco Use: Cigarettes Meaningful Use Info Meaningful Use Diagnoses (Choose all that apply): None applicable
[2018-03-09] MEDS: BACITRACIN 15 GM Tube 1 APPLIC TOPICAL ×2 (05:06→15:09)
[2018-03-09 05:07] VITALS: BP 116/72; PULSE 103
[2018-03-09] MEDS: Metoprolol Tartrate 50 MG Tablet 150 MG PO ×3 (05:07→20:10)
[2018-03-09] MEDS: Fluticasone 0.05% 1 SPRAY NASAL.SRY 2 SPRAY NASAL (05:07)
[2018-03-09] MEDS: Iron Polysaccharide Complex 150 MG CAPSULE PO (05:08)
[2018-03-09] MEDS: Senna/Docusate Sodium 1 Tablet 2 TABLET PO ×2 (05:08→17:34)
[2018-03-09] MEDS: Amantadine 100 MG Capsule PO (05:08)
[2018-03-09] MEDS: Enoxaparin 40 MG/0.4 ML Syringe SC (05:08)
[2018-03-09] MEDS: Polyethylene Glycol 3350 17 GM PACKET PO (05:08)
[2018-03-09] MEDS: Furosemide 40 MG Tablet PO ×2 (05:08→15:02)
[2018-03-09] MEDS: Pantoprazole Sodium 40 MG Tablet PO (05:08)
[2018-03-09] MEDS: Nystatin Powder 15gm Bottle 1 APPLIC TOPICAL ×2 (05:21→20:10)
[2018-03-09] MEDS: oxyCODONE 5 MG Tablet PO ×2 (05:26→20:08)
[2018-03-09 06:45] VITALS: PULSE 71; RESP 16; O2SAT 96
[2018-03-09] MEDS: Ipratropium/Albuterol Sulfate 3 ML AMPUL.NEB INHALATION (06:45)
[2018-03-09 06:46] LABS: Bedside Glucose 202 mg/dL (70-110)
[2018-03-09] MEDS: Ascorbic Acid 500 MG Tablet 1000 MG PO (08:17)
[2018-03-09] MEDS: Insulin Lispro 100 UNIT/ML INSULN.PEN 7 UNIT SC ×3 (08:18→17:27)
[2018-03-09] MEDS: Magnesium Oxide 400 MG Tablet PO ×3 (08:18→17:28)
[2018-03-09 11:45] LABS: Bedside Glucose 232 mg/dL (70-110)
--- NOTE | 2018-03-09 12:48 | CASEMGMT ---
Social Work Telephone call from [facility]. [facility] reporting to not be able to accept resident at this time. Spoke with resident and resident spouse in room, resident requesting for referral to now be made to [facility], Telephone call to Briseyda ACEVEDO. Briseyda reporting to not have any long-term beds open at this time. Spoke with resident and resident spouse in room again, resident now requesting for referral to be made to [facility]. Telephone call to Tatyana Ferreira. Tatyana reporting to possibly have an opening and to be able to look over the case. Clinical information faxed. Proposed discharge date: 03/11/18 PLAN: Discharge to [facility] pending approval. Nora JERONIMO, PULLING UNIT FLOORHAND
--- NOTE | 2018-03-09 14:09 | CASEMGMT ---
Social Work Resident family now requesting for this social science analyst to look into [facility] as well as [facility]. Telephone call to [facility], they do not have any openings at this time, notified family. Proposed discharge date: 03/11/18 PLAN: Discharge to [facility], pending approval. Nora JERONIMO, ONCOLOGY TECHNICIAN
[2018-03-09 15:02] VITALS: BP 143/68; PULSE 98
[2018-03-09 15:23] VITALS: BP 143/68; PULSE 98; RESP 18; TEMP 36.6; O2SAT 97
[2018-03-09 17:11] LABS: Bedside Glucose 246 mg/dL (70-110)
[2018-03-09] MEDS: 0.9% NaCl PICC Flush IV ×2 (17:42→19:56)
[2018-03-09 20:10] VITALS: BP 119/59; PULSE 91
[2018-03-09] MEDS: Pramipexole Di-HCl 0.25 MG Tablet PO (20:10)
[2018-03-09] MEDS: Pravastatin 80 MG Tablet PO (20:10)
[2018-03-09] MEDS: Tamsulosin HCl 0.4 MG Capsule PO (20:10)
[2018-03-09 21:31] LABS: Bedside Glucose 299 mg/dL (70-110)
[2018-03-10 04:40] VITALS: BP 126/74; PULSE 94
[2018-03-10] MEDS: Polyethylene Glycol 3350 17 GM PACKET PO (04:40)
[2018-03-10] MEDS: Furosemide 40 MG Tablet PO ×2 (04:40→12:44)
[2018-03-10] MEDS: Amantadine 100 MG Capsule PO (04:40)
[2018-03-10] MEDS: Nystatin Powder 15gm Bottle 1 APPLIC TOPICAL ×2 (04:40→20:20)
[2018-03-10] MEDS: Senna/Docusate Sodium 1 Tablet 2 TABLET PO ×2 (04:40→16:46)
[2018-03-10] MEDS: Enoxaparin 40 MG/0.4 ML Syringe SC (04:40)
[2018-03-10] MEDS: Metoprolol Tartrate 50 MG Tablet 150 MG PO ×3 (04:40→20:21)
[2018-03-10] MEDS: Pantoprazole Sodium 40 MG Tablet PO (04:40)
[2018-03-10] MEDS: Fluticasone 0.05% 1 SPRAY NASAL.SRY 2 SPRAY NASAL (04:41)
[2018-03-10] MEDS: BACITRACIN 15 GM Tube 1 APPLIC TOPICAL ×2 (04:41→12:52)
[2018-03-10] MEDS: Iron Polysaccharide Complex 150 MG CAPSULE PO (04:41)
[2018-03-10 06:10] LABS: Bedside Glucose 192 mg/dL (70-110)
[2018-03-10 07:45] VITALS: PULSE 76; RESP 20
[2018-03-10] MEDS: Budesonide Respules 0.5 MG/2 ML AMPUL.NEB. INHALATION (07:45)
[2018-03-10] MEDS: Insulin Lispro 100 UNIT/ML INSULN.PEN 7 UNIT SC ×3 (08:52→18:01)
[2018-03-10] MEDS: Ascorbic Acid 500 MG Tablet 1000 MG PO (09:25)
[2018-03-10] MEDS: Magnesium Oxide 400 MG Tablet PO ×3 (09:26→16:47)
[2018-03-10] MEDS: oxyCODONE 5 MG Tablet PO ×2 (10:04→20:16)
[2018-03-10] MEDS: 0.9% NaCl PICC Flush IV ×2 (11:10→20:20)
[2018-03-10 11:21] LABS: Bedside Glucose 300 mg/dL (70-110)
--- NOTE | 2018-03-10 11:28 | CASEMGMT ---
Social Work Telephone call from Tatyana Ferreira. Tatyana voicing to be unable to accept resident due to now not having an opening. Spoke with resident and resident family, Resident requesting for this social services aide to make referral to [facility] ([facility]). Support given[facility] This social services aide making referral. [facility] reporting to be able to accept resident. Clinical information faxed. Will fax discharge orders and Level of Care response when obtained. Level of Care submitted to [facility]. Proposed discharge date: 03/11/18 PLAN: Discharge to [facility] intermediate level of care. Nora JERONIMO, AUTOMATIC RIVETING MACHINE OPERATOR
[2018-03-10 12:44] VITALS: BP 136/75; PULSE 102
--- NOTE | 2018-03-10 14:16 | NURSING ---
In to assess the wound to the sacrum. wound VAC dressing is intact. plan to leave the dressing in place since patient is leaving for the snf in the morning. will remove wound VAC at that time and apply a wet to dry dressing. wound vac will be reapplied at the snf tomorrow.
--- NOTE | 2018-03-10 14:44 | CASEMGMT ---
Social Work Spoke with resident and resident family in room. Resident to have transportation set up via cot per resident request. Therapy also recommending cot transfer for safety. Telephone call to [place], Transportation set up for 03/11/18 at 10:30am. Transportation form completed and placed with resident discharge information. Pending Level of Care at this time. Proposed discharge date: 03/11/18 at 10:30am to [facility]. Nora JERONIMO, CITY MAGISTRATE
[2018-03-10 15:57] VITALS: BP 132/76; PULSE 18; RESP 18; TEMP 36.1; O2SAT 96
[2018-03-10 16:51] LABS: Bedside Glucose 256 mg/dL (70-110)
[2018-03-10] MEDS: Pravastatin 80 MG Tablet PO (20:20)
[2018-03-10 20:21] VITALS: BP 129/76; PULSE 95
[2018-03-10] MEDS: Pramipexole Di-HCl 0.25 MG Tablet PO (20:21)
[2018-03-10] MEDS: Tamsulosin HCl 0.4 MG Capsule PO (20:21)
[2018-03-10 20:51] LABS: Bedside Glucose 262 mg/dL (70-110)
[2018-03-11] MEDS: Enoxaparin 40 MG/0.4 ML Syringe SC (04:21)
[2018-03-11] MEDS: BACITRACIN 15 GM Tube 1 APPLIC TOPICAL (04:24)
[2018-03-11] MEDS: Pantoprazole Sodium 40 MG Tablet PO (04:25)
[2018-03-11] MEDS: Furosemide 40 MG Tablet PO (04:25)
[2018-03-11 04:26] VITALS: BP 123/57; PULSE 94
[2018-03-11] MEDS: Amantadine 100 MG Capsule PO (04:26)
[2018-03-11] MEDS: Metoprolol Tartrate 50 MG Tablet 150 MG PO (04:26)
[2018-03-11] MEDS: Senna/Docusate Sodium 1 Tablet 2 TABLET PO (04:27)
[2018-03-11] MEDS: Iron Polysaccharide Complex 150 MG CAPSULE PO (04:27)
[2018-03-11] MEDS: Polyethylene Glycol 3350 17 GM PACKET PO (04:32)
[2018-03-11] MEDS: oxyCODONE 5 MG Tablet PO (04:36)
[2018-03-11] MEDS: Nystatin Powder 15gm Bottle 1 APPLIC TOPICAL (04:46)
[2018-03-11] MEDS: Fluticasone 0.05% 1 SPRAY NASAL.SRY 2 SPRAY NASAL (04:48)
[2018-03-11 06:55] LABS: Bedside Glucose 203 mg/dL (70-110)
[2018-03-11] MEDS: Magnesium Oxide 400 MG Tablet PO (08:17)
[2018-03-11] MEDS: Ascorbic Acid 500 MG Tablet 1000 MG PO (08:17)
[2018-03-11] MEDS: Insulin Lispro 100 UNIT/ML INSULN.PEN 7 UNIT SC (08:18)
--- NOTE | 2018-03-11 10:28 | CASEMGMT ---
Social Work Level of Care and PASRR results obtained. Faxed to [facility] along with discharge information. Proposed discharge date: 03/11/18 PLAN: Discharge to [facility] under intermediate level of care. Nora JERONIMO, LUNCH TRUCK OPERATOR
[2018-03-11 10:30] VITALS: BP 128/72; PULSE 108; RESP 18; TEMP 36.4; O2SAT 95
--- NOTE | 2018-03-11 12:24 | CASEMGMT ---
Insurance Notified insurance of resident discharge to [facility] on 03/11/18. Auth#[id number] Nora JERONIMO, ASSISTED SALES REPRESENTATIVE
--- NOTE | 2018-03-15 09:36 | MDS.RN ---
Information for the mds was obtained from review of the clinical record, interview of resident, staff, and direct observation of resident's care. resident remained non-ambulatory during assessment lookback periods
--- NOTE | 2018-03-23 13:27 | MDS.RN ---
Information for the mds was obtained from review of the clinical record, interview of resident, staff, and direct observation of resident's care. resident was non-ambulatory during lookback period ifrah 03/11/18 and did not ambulate in room/halls.
== END 2018-03-11 10:45 | disposition intermediate care facility (04) | DRG 947 ==
PROVIDERS: Admitting Provider Family Medicine Geriatric Medicine; Family Provider Family Medicine; PCP Family Medicine; Visit Provider Family Medicine Geriatric Medicine
DX: R53.81 Other malaise (principal); L89.154 Pressure ulcer of sacral region, stage 4; J96.21 Acute and chronic respiratory failure with hypoxia; I50.21 Acute systolic (congestive) heart failure; G81.91 Hemiplegia, unspecified affecting right dominant side; M46.28 Osteomyelitis of vertebra, sacral and sacrococcygeal region; Z93.3 Colostomy status; J44.9 Chronic obstructive pulmonary disease, unspecified; Z87.820 Personal history of traumatic brain injury; E78.5 Hyperlipidemia, unspecified; N40.0 Benign prostatic hyperplasia without lower urinary tract symptoms; G25.81 Restless legs syndrome; E87.6 Hypokalemia; I25.10 Atherosclerotic heart disease of native coronary artery without angina pectoris; K21.9 Gastro-esophageal reflux disease without esophagitis; D50.9 Iron deficiency anemia, unspecified; E11.622 Type 2 diabetes mellitus with other skin ulcer; I11.0 Hypertensive heart disease with heart failure; F41.9 Anxiety disorder, unspecified; F32.9 Major depressive disorder, single episode, unspecified; Z95.1 Presence of aortocoronary bypass graft; G47.33 Obstructive sleep apnea (adult) (pediatric); Z87.891 Personal history of nicotine dependence; Z23 Encounter for immunization; E11.69 Type 2 diabetes mellitus with other specified complication; B95.2 Enterococcus as the cause of diseases classified elsewhere; B95.61 Methicillin susceptible Staphylococcus aureus infection as the cause of diseases classified elsewhere; B96.89 Other specified bacterial agents as the cause of diseases classified elsewhere; Z16.21 Resistance to vancomycin
CPT/HCPCS: 36569; 71045; 80048; 82962; 85025; 85652; 92507; 92526; 92610; 94640; 97014; 97032; 97110; 97127; 97162; 97167; 97530; 97535; 97542; 97802; 99406; J7050; 90686; A4216; G0283; G0515

== ENCOUNTER 2018-04-17 02:18 | Inpatient (IN) | payer MEDICARE, MEDICAID, SELFPAY ==
[2017-02-20 12:18] VITALS: BMI 46.4
[2018-04-17] VITALS (29 sets, daily range): BP systolic 92–138; BP diastolic 33–72; PULSE 74–152; RESP 18–40; TEMP 36–38.8; O2SAT 93–100; BMI 29.6; BMI 29.7
--- NOTE | 2018-04-17 02:45 | EKG12_ITS ---
Test Reason : SEPSIS Blood Pressure : / mmHG Vent. Rate : 132 BPM Atrial Rate : 132 BPM P-R Int : 134 ms QRS Dur : 098 ms QT Int : 296 ms P-R-T Axes : 050 063 121 degrees QTc Int : 438 ms Sinus tachycardia Possible Left atrial enlargement Cannot rule out Inferior infarct , age undetermined Abnormal ECG Confirmed by SHERYL MATTA, ALVARO ([id number]), script editor NEL FERRO ([id number]) on 04/20/2018 3:50:40 PM Referred By: DR DANIELLE Confirmed By:ALVARO SAUCEDO MD
[2018-04-17] MEDS: 0.9% Normal Saline 1,000 ML 999 ML IV ×2 (02:58→04:10)
--- NOTE | 2018-04-17 03:00 | RAD_ITS ---
STUDY: X-RAY CHEST REASON FOR EXAM: Male, 67 years old. Fever TECHNIQUE: Single AP portable view of the chest. COMPARISON: None. FINDINGS: The lungs are clear and expanded. There is no demonstrated pleural abnormality. Normal size heart. Normal mediastinum and ita. Normal visualized pulmonary arteries. Normal visualized aortic arch and descending thoracic aorta. Normal visualized thoracic spine. There is degenerative osteoarthritis of the bilateral shoulders. There is no demonstrated abnormality of the visualized soft tissue structures of the upper abdomen. RAD/Chest 1 View (Portable) IMPRESSION: Degenerative changes, as described above. No demonstrated acute cardiopulmonary process. Electronically Signed: Robert Solano MD at 3:30 EST Tel , Service support ,
[2018-04-17 03:06] LABS: Absolute Lymphocyte Count 0.39 X10^3/ul (0.83-4.51); Absolute Neutrophil Count 10.8 X10^3/uL (2.0-7.7); Basophil# 0.02 X10^3/uL; Basophil% 0.2 % (0-1); Differential Indicated SCAN CRITERIA MET; Eosinophil# 0.01 X10^3/uL; Eosinophils% 0.1 % (0-5); Hematocrit 37.2 % (40-54); International Normalized Ratio 1.2; Lymphocyte # 0.39 X10^3/ul (4.0); Lymphocyte % 3.3 % (19-41); Mean Corp Hgb Conc 32.3 g/gl (32-36); Mean Corpuscular Hgb 29.6 pg (27.0-32.0); Mean Corpuscular Volume 91.9 fL (80-94); Mean Platelet Vol. 11.2 fl (6.2-12.0); Monocyte# 0.41 X10^3/uL; Monocyte% 3.5 % (0-10); Neutrophil # 10.83 X10^3/uL (2.7-7.7); Neutrophil % 92.4 % (47-70); POSITIVE COUNT NO; POSITIVE DIFFERENTIAL YES; POSITIVE MORPHOLOGY NO; Platelet Count 228 K/mm3 (150-450); Prothrombin Time (Protime)PT. 14.8 SECONDS (11.7-14.9); RBC Distribution Width CV 15.7 % (11.6-14.6); RBC Distribution Width SD 51.1 fl (35.1-43.9); Red Blood Count 4.05 M/mm3 (4.6-6.2); White Blood Count 11.7 K/mm3 (4.4-11.0)
[2018-04-17 03:07] LABS: Partial Thromboplast Time 29.8 Seconds (24.1-36.2)
[2018-04-17 03:12] LABS: Mucous, Urine 0 SEEN /hpf (<or=2+); Squamous Epithelial Cells - UA 0 SEEN /hpf (0-5)
[2018-04-17 03:15] LABS: ALB/GLOB Ratio 0.5 RATIO (0.9-2.4); AST(SGOT) 14 U/L (15-37); Alanine Aminotransfer ALT/SGPT 39 U/L (16-61); Albumin, Serum 2.5 g/dL (3.2-5.0); Alkaline Phosphatase 133 U/L (45-117); Anion Gap 13 (5-15); BUN 15 mg/dL (7-18); BUN/Creat Ratio 13.9 RATIO (10-20); Calcium,Total 8.5 mg/dL (8.5-10.1); Chloride 102 mmol/L (98-107); Creatinine, Serum 1.08 mg/dL (0.70-1.30); EST Glomerular Filtration Rate 72 mL/min (>60); Est Glom Filt Rate - Afr Amer 88 mL/min (>60); Estimated Creatinine Clearance 77.17 ml/min; Globulin 4.7 g/dL (2.2-4.2); Glucose 248 mg/dL (74-106); Potassium 3.8 mmol/L (3.5-5.1); Protein, Total 7.2 g/dL (6.4-8.2); Sodium Level 139 mmol/L (136-145)
[2018-04-17 03:25] LABS: Color, Urine Yellow (Yellow); Glucose, Dipstick 1000 mg/dl (Normal); Ketone-Dipstick Negative (Negative); Leukocyte Esterase-Dipstick 500 /ul (Negative); Nitrite-Dipstick Negative (Negative); Occult Blood-Urine 250 /ul (Negative); Protein-Dipstick 30 mg/dl (Negative); Urine Bilirubin Dipstick Negative (Negative); Urine Clarity Sl. Cloudy (Clear); Urine Urobilinogen Normal (Normal)
[2018-04-17 03:30] LABS: Lactic Acid 3.7 mmol/L (0.4-2.0)
--- NOTE | 2018-04-17 03:30 | ED.RN ---
DR DANIELLE NOTIFIED OF LACTIC ACID RESULTS
[2018-04-17 03:31] LABS: Bacteria 3+ /hpf (None Seen); Red Blood Cells-Urine 5-10 SEEN /hpf (0-5); White Blood Cells >100 SEEN /hpf (0-5)
--- NOTE | 2018-04-17 04:43 | PCM.HP.STD ---
Problem List (1) Complicated CAUTI Status: Acute (2) Severe sepsis Status: Acute (3) Malnutrition of moderate degree Status: Acute (4) Hemiplegia affecting right dominant side Status: Chronic Qualifiers: Hemiplegia type: unspecified type Hemiplegia etiology: late effect of cerebrovascular disease Cerebrovascular disease type: cerebral infarction Qualified Code(s): I69.351 - Hemiplegia and hemiparesis following cerebral infarction affecting right dominant side (5) Osteomyelitis of sacrum Status: Chronic (6) Pressure injury of sacral region, stage 4 Status: Chronic (7) Fall Status: Chronic (8) Traumatic brain injury Status: Chronic Qualifiers: (9) Intraparenchymal hemorrhage of brain Status: Chronic (10) Subarachnoid hemorrhage Status: Chronic (11) Subdural hematoma Status: Chronic (12) Intraventricular hemorrhage Status: Chronic (13) Right scapula fracture Status: Chronic (14) Alcohol intoxication Status: Resolved (15) Tobacco abuse Status: Chronic (16) Acute respiratory failure Status: Acute (17) Aspiration pneumonia Status: Acute (18) Dysphagia Status: Chronic (19) Insomnia Status: Chronic (20) Vitamin D deficiency Status: Chronic (21) Depression Status: Chronic (22) GERD (gastroesophageal reflux disease) Status: Chronic Qualifiers: (23) BPH (benign prostatic hyperplasia) Status: Chronic (24) Acute and chronic respiratory failure with hypoxia Status: Acute (25) Sepsis Status: Resolved (26) Healthcare associated bacteremia due to Staphylococcus aureus Status: Resolved (27) Right hemiplegia Status: Chronic (28) Congestive heart failure Status: Chronic (29) Alcohol abuse Status: Chronic (30) Sleep apnea Status: Chronic (31) Diabetes mellitus Status: Chronic (32) Infected decubitus ulcer Status: Resolved (33) Infected decubitus ulcer Status: Acute (34) Encounter for long-term current use of high risk medication Status: Chronic (35) Obstructive sleep apnea Status: Chronic (36) Arteriosclerosis of arterial coronary artery bypass graft Status: Chronic Comment: S/P CABG x3 with right radial to LAD, SVG to RCA, and SVG to OM 2; stenting to LAD in February 2017; (37) Presence of coronary angioplasty implant and graft Status: Chronic (38) Presence of aortocoronary bypass graft Status: Chronic Comment: CABG X 3 2001 ?, Radial artery -LAD, SVG-RCA, SVG-OM2 (39) Non-ST elevation myocardial infarction (NSTEMI), initial care episode Status: Chronic Comment: 02/16/17 (40) Ischemic cardiomyopathy Status: Chronic (41) FUO (fever of unknown origin) Status: Acute (42) Restless leg syndrome Status: Chronic (43) Hyperlipidemia Status: Chronic Qualifiers: (44) Hypertensive emergency Status: Chronic (45) Demand ischemia Status: Resolved (46) COPD (chronic obstructive pulmonary disease) Status: Chronic (47) Hypertension Status: Chronic Qualifiers: (48) Morbid obesity Status: Chronic (49) Systolic CHF, acute Status: Acute (50) CAD (coronary artery disease) Status: Chronic (51) Stented coronary artery Status: Chronic Comment: [facility] w/[id number] LAD (grafts occluded X 3) 02/20/17 (52) Former smoker Status: Chronic Comment: quit February 2017 (53) Diabetes mellitus type 2 in obese Status: Chronic (54) Hx of CABG Status: Chronic Comment: CABG X3 rADIAL ARTERY-lad, svg-rca, svg-om2. MULTIPLE CORONARY STENTS History of Present Illness Date of Admission: 04/17/18 Chief Complaint: High fever in SNF yesterday night The patient is a 67 year old M with multiple comorbidities with subdural hematoma/subarachnoid hemorrhage with right-sided hemiplegia, sacral stage IV decubitus ulcer status post ostectomy was sent from [facility] for high fever. As per the the noted temperature 105?F there. In ED, temperature was 101.4 Fahrenheit, heart rate 133, respiratory rate 40/min and pulse ox 97% on 4 L of oxygen. Lactic acid 3.7. Patient blood pressure was low 94/60. Patient has indwelling Lane catheter secondary to neurogenic bladder, diverting colostomy and PEG tube during sacral ostectomy surgery. As per the he was not on oxygen there. EKG shows sinus tachycardia at 132 bpm. Chest x-ray does not show acute change. Mild leukocytosis 11.7 thousand with left shift, neutrophils 92%. UA positive of WBC more than 100 cells, LE 500, nitrite -3+ bacteria. [] Patient further admitted for management Past Medical History Past Medical History (Chronic Problems): Chronic Problems (Last Reviewed 01/15/18 @ 18:40 by Darnell Felix DO) Hemiplegia affecting right dominant side (Chronic) 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, stage 4 (Chronic) Fall (Chronic) Traumatic brain injury (Chronic) Intraparenchymal hemorrhage of brain (Chronic) Subarachnoid hemorrhage (Chronic) Subdural hematoma (Chronic) Intraventricular hemorrhage (Chronic) Right scapula fracture (Chronic) Tobacco abuse (Chronic) Dysphagia (Chronic) Insomnia (Chronic) Vitamin D deficiency (Chronic) Depression (Chronic) GERD (gastroesophageal reflux disease) (Chronic) BPH (benign prostatic hyperplasia) (Chronic) Right hemiplegia (Chronic) Congestive heart failure (Chronic) Alcohol abuse (Chronic) Sleep apnea (Chronic) Diabetes mellitus (Chronic) Encounter for long-term current use of high risk medication (Chronic) Obstructive sleep apnea (Chronic) 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) S/P CABG x3 with right radial to LAD, SVG to RCA, and SVG to OM 2; stenting to LAD in February 2017; Presence of coronary angioplasty implant and graft (Chronic) Presence of aortocoronary bypass graft (Chronic) CABG X 3 2002 ?, Radial artery -LAD, SVG-RCA, SVG-OM2 Non-ST elevation myocardial infarction (NSTEMI), initial care episode (Chronic) 02/16/17 Ischemic cardiomyopathy (Chronic) Restless leg syndrome (Chronic) Hyperlipidemia (Chronic) Hypertensive emergency (Chronic) COPD (chronic obstructive pulmonary disease) (Chronic) Hypertension (Chronic) Morbid obesity (Chronic) CAD (coronary artery disease) (Chronic) Stented coronary artery (Chronic) [facility] w/SDO-[id number]-Yubh LAD (grafts occluded X 3) 02/20/17 Former smoker (Chronic) quit February 2017 Diabetes mellitus type 2 in obese (Chronic) Hx of CABG (Chronic) CABG X3 rADIAL ARTERY-lad, svg-rca, svg-om2. MULTIPLE CORONARY STENTS Medical History: Medical History (Last Updated 01/15/18 @ 18:40 by aDrnell Felix DO) Encounter for long-term current use of high risk medication (Chronic) Z79.899 Obstructive sleep apnea (Chronic) G47.33 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) I25.810 S/P CABG x3 with right radial to LAD, SVG to RCA, and SVG to OM 2; stenting to LAD in February 2017; Non-ST elevation myocardial infarction (NSTEMI), initial care episode (Chronic) I21.4 9/11/17 Ischemic cardiomyopathy (Chronic) I25.5 FUO (fever of unknown origin) (Acute) Restless leg syndrome (Chronic) Hyperlipidemia (Chronic) E78.5 Hypertensive emergency (Chronic) I16.1 Demand ischemia (Resolved) I24.8 COPD (chronic obstructive pulmonary disease) (Chronic) J44.9 Hypertension (Chronic) I10 Morbid obesity (Chronic) E66.01 Systolic CHF, acute (Acute) I50.21 CAD (coronary artery disease) (Chronic) I25.10 Former smoker (Chronic) Z87.891 quit February 2017 Diabetes mellitus type 2 in obese (Chronic) E11.69, E66.9 PEG (percutaneous endoscopic gastrostomy) adjustment/replacement/removal Z43.1 Nicotine dependence F17.200 Allergies atorvastatin Allergy (Verified 04/17/18 03:12) Hives cilostazol Allergy (Verified 04/17/18 03:12) Hives colestipol Allergy (Verified 04/17/18 03:12) Hives diltiazem Allergy (Verified 04/17/18 03:12) Hives gemfibrozil Allergy (Verified 04/17/18 03:12) Hives naproxen [From Naprosyn] Allergy (Verified 04/17/18 03:12) Hives niacin Allergy (Verified 04/17/18 03:12) Hives Penicillins Allergy (Verified 04/17/18 03:12) Hives pravastatin Allergy (Verified 04/17/18 03:12) Hives procaine [From Novocain] Allergy (Verified 04/17/18 03:12) Hives rosuvastatin Allergy (Verified 04/17/18 03:12) Hives simvastatin Allergy (Verified 04/17/18 03:12) Hives isosorbide Adverse Reaction (Severe, Verified 04/17/18 03:12) Unknown Home Medications: Ambulatory Orders Medication Instructions Recorded Ipratropium/Albuterol Sulfate 3 ml INHALATION Q2H PRN PRN 01/16/18 [Duoneb] Metoprolol Tartrate 150 mg PO TID 01/16/18 Nitroglycerin [Nitrostat] 0.4 mg SUBLINGUAL Q5M PRN 01/16/18 Polyethylene Glycol 3350 [Miralax] 17 gm PO DAILY 01/16/18 Pravastatin [Pravachol] 80 mg PO QHS 01/16/18 Tamsulosin HCl [Flomax] 0.4 mg PO QHS 01/16/18 Argin/Glut/Cahmb/Collag/Mv-Min 1 each PO BIDCM 01/22/18 [[place] Packet] Magnesium Oxide [Mag-Ox 400] 400 mg PO TIDCM 01/22/18 Pantoprazole Sodium [Protonix] 40 mg PO DAILY 01/22/18 Pramipexole Di-HCl [Mirapex] 0.25 mg PO QHS 01/22/18 Amantadine [Symmetrel] 100 mg PO DAILY 02/02/18 Ascorbic Acid [Vitamin C] 1,000 mg PO DAILY@0800 02/02/18 Budesonide Aerosol [Pulmicort 0.5 mg INHALATION BID.RT 02/02/18 Respules] Furosemide [Lasix] 40 mg PO BIDLX 02/02/18 Heparin Sodium,Porcine/Pf [Heparin 500 unit IV UD PRN syringe 02/02/18 500 Unit/5 ml (100/ml)] Iron Polysaccharide Complex 150 mg PO DAILY 02/02/18 [Ferrex 150] Lactobacillus Acidophilus 1 tablet PO BID 02/02/18 [Acidophilus] Nutritional Supplement [[place] - 1 packet PO BIDCM 02/02/18 ORANGE FLAVOR] Oxycodone [Oxyir] 5 mg PO 4X/DAY PRN PRN 7 Days #30 02/02/18 tab Potassium Cloride Effervescent 50 meq PO BIDCM 02/02/18 [Potassium Chl 25 Meq Eff (For Liquid)] Acetaminophen [Tylenol] 1,000 mg PO Q8H PRN PRN tablet 03/08/18 Bacitracin Ointment 1 applic TOPICAL BID tube 03/08/18 Bisacodyl [Dulcolax] 10 mg PO DAILY PRN tablet 03/08/18 Budesonide Aerosol [Pulmicort 0.5 mg INHALATION BID.RT 03/08/18 Respules] ampul.neb. Fluticasone 0.05% [Flonase Nasal 2 spray NASAL DAILY nasal.sry 03/08/18 [place]] Insulin Glargine [Lantus SoloStar 10 units SC BID pen 03/08/18 Pen] Insulin Lispro [Humalog KwikPen] 7 unit SC TIDAC insuln.pen 03/08/18 Magnesium Oxide [Mag-Ox 400] 400 mg PO TIDCM tablet 03/08/18 Metoprolol Tartrate [Lopressor 150 mg PO TID tablet 03/08/18 (beta stepan)] Mineral Oil/Petrolatum,White 1 applic TOPICAL 0600,2200 jar 03/08/18 [Eucerin] Nystatin Powder [Mycostatin Powder] 1 applic TOPICAL 0600,2200 bottle 03/08/18 Oxycodone [Oxyir] 5 mg PO Q6H PRN PRN #30 tab 03/08/18 Polyethylene Glycol 3350 [Miralax] 17 gm PO DAILY packet 03/08/18 Senna/Docusate Sodium [Senokot-S] 2 tablet PO BID tablet 03/08/18 Surgical History: Surgical History (Last Reviewed 01/15/18 @ 18:40 by Darnell Felix DO) Presence of coronary angioplasty implant and graft (Chronic) Z95.5 Presence of aortocoronary bypass graft (Chronic) Z95.1 CABG X 3 2001 ?, Radial artery -LAD, SVG-RCA, SVG-OM2 Stented coronary artery (Chronic) [facility] w/TAE-[id number]-Ekri LAD (grafts occluded X 3) 02/20/17 Hx of CABG (Chronic) CABG X3 rADIAL ARTERY-lad, svg-rca, svg-om2. MULTIPLE CORONARY STENTS Surgical History: angioplasty, coronary bypass surgery - x 3., - - PEG tube, Diverting colostomy. Psychiatric History: Depression Smoking Status: Former smoker - *Family History Maternal Family History: Family History (Last Reviewed 01/15/18 @ 18:40 by Darnell Felix DO) Brother Heart disease Father Heart disease History Items: No pertinent history, - - Alzheimer Paternal Family History: Family History (Last Reviewed 01/15/18 @ 18:40 by Darnell Felix DO) Brother Heart disease Father Heart disease History Items: No pertinent history Review of Systems Constitutional: Reports: Anorexia, Chills, Fever, Weakness, Weight Change HEENT: Reports: Difficulty Hearing, Difficulty Swallowing, Dysphasia Cardiovascular: Denies: Chest Pain Respiratory: Reports: Cough - Chronic cough but no change, Shortness of breath upon exertion. Denies: Shortness of breath at rest, Sputum production Gastrointestinal: Denies: Abdominal Pain, Nausea, Vomiting Genitourinary: Reports: - - Indwelling Lane catheter. Patient does not have sensation of bladder Musculoskeletal: Reports: Joint stiffness Skin: Denies: Rash, Wounds Neurological: Reports: - - Right-sided hemiplegia. Psychiatric: Reports: Anxiety, Depression Hematologic/ Lymphatic: Denies: Easy Bruising, Easy Bleeding VTE Information - Inpt Only VTE Present on Admission: No VTE Mechan Device Prophylaxis: None VTE Pharm Prophylaxis ordered?: Yes Patient Problems: Active and Suspected Problems (Last Updated 01/15/18 @ 18:40 by Darnell Felix DO) Complicated CAUTI (Acute) Severe sepsis (Acute) - Physical Exam General: Oriented x3, Cooperative, Lethargic HEENT: Atraumatic, PERRLA, EOMI, Normocephalic Oral: Dry Mucosa Neck: Supple, No JVD, Negative Carotid Bruits Lungs: Normal air movement, No rhonchi, No wheeze, No rales, Diminished - Diminished in bilateral lung bases Cardiovascular: Regular rate, No murmurs Abdomen: Bowel Sounds Present, Soft, Non Tender, Non-Distended, - - PEG tube present. Diverting colostomy present Extremities: Capillary Refill Less than 3 Seconds, Edema Skin: No rashes, No breakdown Musculoskeletal: No Tenderness to Palpation of Joints or Extremities, Arthritic Changes, Muscle Wasting Neurological: Cranial nerves II-XII grossly intact, - - Chronic right-sided hemiplegia secondary to stroke Right upper extremity has contracture. Psych/Mental Status: Normal Affect, Appropriate Vital Signs Temp Pulse Resp BP Pulse Ox 99.2 F H 120 H 26 H 94/60 98 04/17/18 04:13 04/17/18 04:11 04/17/18 04:11 04/17/18 04:11 04/17/18 04:11 Oxygen Flow Rate (L/min) 2 Oxygen Delivery Method Nasal Cannula Weight: 233 lb 14.567 oz Body Mass Index (BMI) 30.0 Finger Stick Blood Glucose 250 Laboratory Tests Past 24 Hrs 04/17/18 04/17/18 04/17/18 02:40 02:40 02:40 WBC 11.7 H RBC 4.05 L Hgb 12.0 L Hct 37.2 L MCV 91.9 MCH 29.6 MCHC 32.3 RDW 15.7 H RDW Differential 51.1 H Plt Count 228 MPV 11.2 Immature Gran % (Auto) 0.500 Neut % (Auto) 92.4 H Lymph % (Auto) 3.3 L Early % (Auto) 3.5 Eos % (Auto) 0.1 Baso % (Auto) 0.2 Absolute Neuts (auto) 10.8 H Absolute Lymphs (auto) 0.39 L Total Counted Not Reportable PT 14.8 INR 1.2 APTT 29.8 Sodium Potassium Chloride Carbon Dioxide Anion Gap BUN Creatinine Estim Creat Clear Calc Est GFR (MDRD) Af Amer Est GFR (MDRD) Non-Af BUN/Creatinine Ratio Glucose Lactic Acid 3.7 H Calcium Total Bilirubin AST ALT Alkaline Phosphatase Troponin I Total Protein Albumin Globulin Albumin/Globulin Ratio Urine Color Urine Clarity Urine pH Ur Specific [place] Urine Protein Urine Glucose (UA) Urine Ketones Urine Occult Blood Urine Nitrite Urine Bilirubin Urine Urobilinogen Ur Leukocyte Esterase Urine RBC Urine WBC Ur Squamous Epith Cells Urine Bacteria Urine Mucus 04/17/18 04/17/18 02:40 03:08 WBC RBC Hgb Hct MCV MCH MCHC RDW RDW Differential Plt Count MPV Immature Gran % (Auto) Neut % (Auto) Lymph % (Auto) Early % (Auto) Eos % (Auto) Baso % (Auto) Absolute Neuts (auto) Absolute Lymphs (auto) Total Counted PT INR APTT Sodium 139 Potassium 3.8 Chloride 102 Carbon Dioxide 24.0 Anion Gap 13 BUN 15 Creatinine 1.08 Estim Creat Clear Calc 77.17 Est GFR (MDRD) Af Amer 88 Est GFR (MDRD) Non-Af 72 BUN/Creatinine Ratio 13.9 Glucose 248 H Lactic Acid Calcium 8.5 Total Bilirubin 0.50 AST 14 L ALT 39 Alkaline Phosphatase 133 H Troponin I < 0.015 Total Protein 7.2 Albumin 2.5 L Globulin 4.7 H Albumin/Globulin Ratio 0.5 L Urine Color Yellow Urine Clarity Sl. Cloudy Urine pH 8.0 Ur Specific [place] 1.010 Urine Protein 30 H Urine Glucose (UA) 1000 H Urine Ketones Negative Urine Occult Blood 250 H Urine Nitrite Negative Urine Bilirubin Negative Urine Urobilinogen Normal Ur Leukocyte Esterase 500 H Urine RBC 5-10 SEEN Urine WBC >100 SEEN Ur Squamous Epith Cells 0 SEEN Urine Bacteria 3+ Urine Mucus 0 SEEN Assessment/Plan All Active Problems (Last Updated 01/15/18 @ 18:40 by Darnell Felix DO) Complicated CAUTI (Acute) Severe sepsis (Acute) Malnutrition of moderate degree (Acute) Alcohol intoxication (Resolved) Acute respiratory failure (Acute) Aspiration pneumonia (Acute) Acute and chronic respiratory failure with hypoxia (Acute) Sepsis (Resolved) Healthcare associated bacteremia due to Staphylococcus aureus (Resolved) Infected decubitus ulcer (Resolved) Infected decubitus ulcer (Acute) FUO (fever of unknown origin) (Acute) Demand ischemia (Resolved) Systolic CHF, acute (Acute) Acute respiratory failure with hypoxia and hypercarbia (Resolved) Multifocal community-acquired pneumonia (Resolved) Severe sepsis (Resolved) The patient is a 67 year old M with multiple comorbidities with subdural hematoma/subarachnoid hemorrhage with right-sided hemiplegia, sacral stage IV decubitus ulcer status post ostectomy was sent from [facility] for high fever. As per the the noted temperature 105?F there. In ED, temperature was 101.4 Fahrenheit, heart rate 133, respiratory rate 40/min and pulse ox 97% on 4 L of oxygen. Lactic acid 3.7. Patient blood pressure was low 94/60. Patient denies any recent URI or flulike symptoms although patient has chronic cough secondary to COPD Patient has indwelling Lane catheter secondary to neurogenic bladder, diverting colostomy and PEG tube during sacral ostectomy surgery. As per the he was not on oxygen there. EKG shows sinus tachycardia at 132 bpm. Chest x-ray does not show acute change. Mild leukocytosis 11.7 thousand with left shift, neutrophils 92%. UA positive of WBC more than 100 cells, LE 500, nitrite -3+ bacteria. [] Patient further admitted for management 1. Severe sepsis (T 101.4 Fahrenheit, heart rate 133, respiratory rate 40/min and pulse ox 97% on 4 L of oxygen. Lactic acid 3.7. BP low 94/60), most probably secondary to complicated catheter associated UTI: Patient is being admitted on stepdown unit. IV fluid normal saline 2 L bolus and then 150 mill per hour. Monitor intake and output. The patient was given aztreonam 2 g in ED. Started on ceftriaxone 1 g every 12 hourly. Kidney and bladder ultrasound. 2. Chronic sacral decubitus ulcer stage IV status post ostectomy: The patient had diverting colostomy and PEG tube in January 2018. Prior to that he had excision sacral pressure stage IV with partial ostectomy by Dr. Slaby. On inspection, wound has minimal yellow slough but otherwise looks good. Wound care nurse consult for dressing recommendation. 3. History of stroke with right-sided hemiplegia and then traumatic brain injury and intracranial bleed after a fall on anticoagulant is not, aspiration pneumonia: Currently on PEG tube feeding. PT and OT ordered. 4. Type 2 diabetes mellitus: A1c tomorrow a.m. Accu-Chek every 6 hours and cover with NovoLog sliding scale. 5. Coronary artery status post CABG in 2001 and non-STEMI in February 2017, chronic systolic heart failure and hypertension: Patient is more stable we will continue the home medication 6. sleep apnea on CPAP and COPD 10. Anemia of chronic disease 11. DVT prophylaxis: On SCDs. Patient during the previous admission has not been on anticoagulation secondary to history of previous intracranial bleed which was subdural bleed, SAH and intraparenchymal bleed. Multiple comorbidities complicates the present care and expect difficult and delay recovery Advanced directive: Patient is DNR CC arrest. Patient does not want artificial life support including intubation, ventilator and/chest compression but okay with vasopressor, central venous catheter if needed. Patient is DNR CC Arrest. Total time spent in [id number] encounter in discussion of advanced directive 18 minutes. This was discussed with the patient's near the bedside Code Visit Inpatient E&M: 04674 Init Hosp L3 Procedures: 58057 Advncd Care Plan 30 Min
--- NOTE | 2018-04-17 04:49 | ED.VISSUMM ---
- ER Visit Summary Date of Service: 04/17/18 Chief Complaint: Fever History of Present Illness: The patient is a 67 M who presents with a fever. He presents from a nursing facility. 1 hour before presentation here they checked his temperature and it was 105 degrees. He had one episode of emesis per the nursing staff. Myelitis with debridement by plastic surgery. Family states that in the last couple of days he has been at his baseline health. He is not currently on antibiotics. Physical Examination: Temperature 101.4, heart rate 133, respiratory rate 40, pulse ox 97% on 4 L Patient has no appearance Moist mucous membranes Heart regular rhythm tachycardia Tachypnea but lungs are clear without rales rhonchi or wheezes Abdomen soft nontender nondistended, colostomy and G-tube are noted Sacral wound appears clean and dry do not appreciate erythema odor or drainage Right-sided weakness He is alert Test Results: EKG shows sinus rhythm at a rate of 132 with inferior Q waves. There does appear to be some mild lateral ST depression. Chest x-ray shows no acute process. Labs notable for white blood cell count 11.7, lactic acid 3.7, troponin is normal. Urine and blood cultures have been sent. Urinalysis consistent with infection with 500 leukocyte esterase 250 blood greater than 100 WBCs and bacteria. Emergency Department Course and Treatment: Patient was treated with IV fluids. He does meet criteria for severe sepsis. He has had a borderline blood pressures but never actually been hypotensive he has never had a systolic of less than 90 or a map of less than 65 while here in the emergency department. He was given 2 L of IV fluid. He has a penicillin allergy. He was treated with aztreonam based on [facility] guidelines. He was discussed with hospitalist and admitted. Treatment Plan: [] Disposition: Admit Impression: Severe sepsis UTI This note was generated with [employer] dictation software. It may contain incorrect words, spelling, and punctuation that were not noted in review of the chart prior to signing ED Disposition - Plan for ED Patient: Chief Complaint: Fever Referrals: Julissa Lamb MD [Primary Care Provider] -
--- NOTE | 2018-04-17 04:53 | ED.DCSUM_ITS ---
- ER Visit Summary Date of Service: 04/17/18 Chief Complaint: Fever History of Present Illness: The patient is a 67 M who presents with a fever. He presents from a nursing facility. 1 hour before presentation here they checked his temperature and it was 105 degrees. He had one episode of emesis per the [facility]. Myelitis with debridement by plastic surgery. Family states that in the last couple of days he has been at his baseline health. He is not currently on antibiotics. Physical Examination: Temperature 101.4, heart rate 133, respiratory rate 40, pulse ox 97% on 4 L Patient has no appearance Moist mucous membranes Heart regular rhythm tachycardia Tachypnea but lungs are clear without rales rhonchi or wheezes Abdomen soft nontender nondistended, colostomy and G-tube are noted Sacral wound appears clean and dry do not appreciate erythema odor or drainage Right-sided weakness He is alert Test Results: EKG shows sinus rhythm at a rate of 132 with inferior Q waves. There does appear to be some mild lateral ST depression. Chest x-ray shows no acute process. Labs notable for white blood cell count 11.7, lactic acid 3.7, troponin is normal. Urine and blood cultures have been sent. Urinalysis consistent with infection with 500 leukocyte esterase 250 blood greater than 100 WBCs and bacteria. Emergency Department Course and Treatment: Patient was treated with IV fluids. He does meet criteria for severe sepsis. He has had a borderline blood pressures but never actually been hypotensive he has never had a systolic of less than 90 or a map of less than 65 while here in the emergency department. He was given 2 L of IV fluid. He has a penicillin allergy. He was treated with aztreonam based [facility]. He was discussed with hospitalist and admitted. Treatment Plan: [] Disposition: Admit Impression: Severe sepsis UTI This note was generated with [employer] dictation software. It may contain incorrect words, spelling, and punctuation that were not noted in review of the chart prior to signing ED Disposition - Plan for ED Patient: Chief Complaint: Fever Referrals: Julissa Lamb MD [Primary Care Provider] -
[2018-04-17] MEDS: 0.9% Normal Saline 1,000 ML 150 ML IV ×2 (06:26→13:13)
[2018-04-17 06:54] LABS: Reflex Lactate? Y
[2018-04-17] MEDS: Ceftriaxone 1 GM/50 ML BAG IV ×2 (07:18→22:30)
[2018-04-17 07:55] LABS: Lactic Acid 1.6 mmol/L (0.4-2.0)
[2018-04-17 09:16] LABS: M R Staph aureus DNA By PCR POSITIVE (Negative); Probe Check PASS
[2018-04-17 09:18] LABS: M R Staph aureus DNA By PCR Negative (Negative); Probe Check PASS; Specimen Processing Control PASS; Staph aureus DNA By PCR NEGATIVE (Negative)
[2018-04-17 11:02] LABS: Hematocrit 34.7 % (40-54); Hemoglobin 10.9 g/dl (13.0-16.5); Mean Corp Hgb Conc 31.4 g/gl (32-36); Mean Corpuscular Hgb 29.5 pg (27.0-32.0); Mean Platelet Vol. 11.3 fl (6.2-12.0); Platelet Count 192 K/mm3 (150-450); RBC Distribution Width CV 16.2 % (11.6-14.6); RBC Distribution Width SD 56.4 fl (35.1-43.9); Red Blood Count 3.69 M/mm3 (4.6-6.2); White Blood Count 11.1 K/mm3 (4.4-11.0)
[2018-04-17 11:04] LABS: Scan Indicated on CBC? Y/N NO
[2018-04-17] MEDS: Polyethylene Glycol 3350 17 GM PACKET GT (11:09)
[2018-04-17] MEDS: Famotidine 20 MG Tablet PO (11:09)
[2018-04-17 12:10] LABS: Bedside Glucose 232 mg/dL (70-110)
--- NOTE | 2018-04-17 12:30 | NURSING ---
Addendum entered by Fermin Spears 04/17/18 19:05: [address] Felix of [facility]. Per hospitalist, Lula, BARREL TESTER to see patient. RN spoke with Lula and updated her on patient status. States she will be in to see patient. Original Note: RN in to see patient. Noted shivering and complaints of being cold. Tachypneic. HR elevated. Lung sounds clear. IV fluids infusing @ 150ml/hr. Elevated temp 101.8 Ax.
--- NOTE | 2018-04-17 12:56 | PCM.PROGNOTE ---
<Lula Ledesma - Last Filed: 04/17/18 13:32> Patient Problems: Active and Suspected Problems (Last Updated 01/15/18 @ 18:40 by Darnell Felix DO) Complicated CAUTI (Acute) Severe sepsis (Acute) Subjective: Patient seen and examined. at bedside. Patient lethargic on assessment. Nursing reports patient with fever and rigors this morning, tachypnea. T-max 101.8. - Physical Exam General: Lethargic HEENT: Atraumatic, PERRLA, EOMI, Normocephalic Oral: Dry Mucosa Neck: Supple, No JVD, Negative Carotid Bruits Lungs: Clear to auscultation, Diminished Cardiovascular: Regular Rhythm, Normal S1, Normal S2, No murmurs, Tachycardic Abdomen: Bowel Sounds Present, Soft, Non Tender, Non-Distended, - - PEG tube intact. Extremities: No clubbing, No cyanosis, No edema, Capillary Refill Less than 3 Seconds Skin: No rashes, No breakdown, - - chronic sacral decubitus ulcer stage IV, present on admission. 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 Psych/Mental Status: - - Unable to assess due to lethargy. Vital Signs Temp Pulse Resp BP Pulse Ox 101.8 F H 136 H 34 H 129/52 H 99 04/17/18 12:00 04/17/18 12:00 04/17/18 12:00 04/17/18 12:00 04/17/18 12:00 Oxygen Flow Rate (L/min) 5 Oxygen Delivery Method Nasal Cannula Weight: 231 lb 0.711 oz Body Mass Index (BMI) 29.6 Finger Stick Blood Glucose 250 Intake and Output for Last 24 Hours 04/15/18 04/16/18 04/17/18 23:59 23:59 23:59 Intake Total 145 / 145 Balance 145 / 145 Laboratory Tests Past 24 Hrs 04/17/18 04/17/18 04/17/18 02:40 02:40 02:40 WBC 11.7 H RBC 4.05 L Hgb 12.0 L Hct 37.2 L MCV 91.9 MCH 29.6 MCHC 32.3 RDW 15.7 H RDW Differential 51.1 H Plt Count 228 MPV 11.2 Immature Gran % (Auto) 0.500 Neut % (Auto) 92.4 H Lymph % (Auto) 3.3 L [place] % (Auto) 3.5 Eos % (Auto) 0.1 Baso % (Auto) 0.2 Absolute Neuts (auto) 10.8 H Absolute Lymphs (auto) 0.39 L Total Counted Not Reportable PT 14.8 INR 1.2 APTT 29.8 Sodium Potassium Chloride Carbon Dioxide Anion Gap BUN Creatinine Estim Creat Clear Calc Est GFR (MDRD) Af Amer Est GFR (MDRD) Non-Af BUN/Creatinine Ratio Glucose Lactic Acid 3.7 H Calcium Total Bilirubin AST ALT Alkaline Phosphatase Troponin I Total Protein Albumin Globulin Albumin/Globulin Ratio Urine Color Urine Clarity Urine pH Ur Specific [place] Urine Protein Urine Glucose (UA) Urine Ketones Urine Occult Blood Urine Nitrite Urine Bilirubin Urine Urobilinogen Ur Leukocyte Esterase Urine RBC Urine WBC Ur Squamous Epith Cells Urine Bacteria Urine Mucus S.aureus Protein A PCR MRSA (PCR) 04/17/18 04/17/18 04/17/18 02:40 03:08 06:55 WBC RBC Hgb Hct MCV MCH MCHC RDW RDW Differential Plt Count MPV Immature Gran % (Auto) Neut % (Auto) Lymph % (Auto) [place] % (Auto) Eos % (Auto) Baso % (Auto) Absolute Neuts (auto) Absolute Lymphs (auto) Total Counted PT INR APTT Sodium 139 Potassium 3.8 Chloride 102 Carbon Dioxide 24.0 Anion Gap 13 BUN 15 Creatinine 1.08 Estim Creat Clear Calc 77.17 Est GFR (MDRD) Af Amer 88 Est GFR (MDRD) Non-Af 72 BUN/Creatinine Ratio 13.9 Glucose 248 H Lactic Acid Calcium 8.5 Total Bilirubin 0.50 AST 14 L ALT 39 Alkaline Phosphatase 133 H Troponin I < 0.015 Total Protein 7.2 Albumin 2.5 L Globulin 4.7 H Albumin/Globulin Ratio 0.5 L Urine Color Yellow Urine Clarity Sl. Cloudy Urine pH 8.0 Ur Specific [place] 1.010 Urine Protein 30 H Urine Glucose (UA) 1000 H Urine Ketones Negative Urine Occult Blood 250 H Urine Nitrite Negative Urine Bilirubin Negative Urine Urobilinogen Normal Ur Leukocyte Esterase 500 H Urine RBC 5-10 SEEN Urine WBC >100 SEEN Ur Squamous Epith Cells 0 SEEN Urine Bacteria 3+ Urine Mucus 0 SEEN S.aureus Protein A PCR NEGATIVE MRSA (PCR) Negative 04/17/18 04/17/18 04/17/18 07:15 07:47 10:36 WBC 11.1 H RBC 3.69 L Hgb 10.9 L Hct 34.7 L MCV 94.0 MCH 29.5 MCHC 31.4 L RDW 16.2 H RDW Differential 56.4 H Plt Count 192 MPV 11.3 Immature Gran % (Auto) Neut % (Auto) Lymph % (Auto) [place] % (Auto) Eos % (Auto) Baso % (Auto) Absolute Neuts (auto) Absolute Lymphs (auto) Total Counted PT INR APTT Sodium Potassium Chloride Carbon Dioxide Anion Gap BUN Creatinine Estim Creat Clear Calc Est GFR (MDRD) Af Amer Est GFR (MDRD) Non-Af BUN/Creatinine Ratio Glucose Lactic Acid 1.6 Calcium Total Bilirubin AST ALT Alkaline Phosphatase Troponin I Total Protein Albumin Globulin Albumin/Globulin Ratio Urine Color Urine Clarity Urine pH Ur Specific [place] Urine Protein Urine Glucose (UA) Urine Ketones Urine Occult Blood Urine Nitrite Urine Bilirubin Urine Urobilinogen Ur Leukocyte Esterase Urine RBC Urine WBC Ur Squamous Epith Cells Urine Bacteria Urine Mucus S.aureus Protein A PCR MRSA (PCR) POSITIVE H POC Glucose 04/17/18 11:37 POC Glucose 232 H Medical Necessity - Tobacco Use Smoking Status: Former smoker Assessment/Plan All Active Problems (Last Updated 01/15/18 @ 18:40 by Darnell Felix DO) Complicated CAUTI (Acute) Severe sepsis (Acute) Alcohol intoxication (Resolved) Sepsis (Resolved) Healthcare associated bacteremia due to Staphylococcus aureus (Resolved) Infected decubitus ulcer (Resolved) Infected decubitus ulcer (Resolved) Demand ischemia (Resolved) Acute respiratory failure with hypoxia and hypercarbia (Resolved) Multifocal community-acquired pneumonia (Resolved) Severe sepsis (Resolved) 1. Severe sepsis secondary to catheter associated UTI-UA positive on admission. Urine and blood cultures pending. Wound culture sent today as well to rule out other infectious source. Chest x-ray without acute process on admission. White count improving. T-max 101.8. Tylenol as needed for fever. Continue IV Rocephin. If catheter has not been changed recently, will need replaced. Patient has chronic Lane due to neurogenic bladder. Lactic acidosis resolved. 2. Chronic sacral decubitus ulcer stage IV-status post diverting colostomy and PEG tube January 2018. Wound does not appear infected. Culture sent regardless given severe sepsis on admission. Wound RN consult. Frequent position changes. Sacral cultures positive for MDR serratia marcescens, VRE, MSSA, e.coli. Osteomyelitis suspected during prior admission which was ruled out. Patient underwent excision of sacral pressure sore 01/22/[address] Juarez. Wound vac was place after that time and patient completed extensive course of antibiotics which were completed 03/05/18. ID involved with patient in the past. Consider ID consult if wound cx significant. 3. History of CVA with residual right-sided hemiplegia, history of traumatic brain injury and intracranial bleed following mechanical fall on anticoagulation- Currently residing in SNF. PT/OT/ST. S/P peg tube. Continue tube feeds. Continue statin. 4. Type 2 diabetes [id number] before meals at bedtime with sliding scale insulin. Continue home long-acting and lispro regimen. 5. CAD status post CABG X3 and stents- Follows with Dr. Roche. 6. Ischemic cardiomyopathy-echo March 2017 with EF 45%. 7. Hypertension- stable, continue home metoprolol regimen. 8. Hyperlipidemia-continue statin. 9. JIM- continue CPAP. 10. Chronic COPD- no acute exacerbation. Albuterol aerosol as needed. 11. BPH- Continue home flomax regimen. Lane in place due to neurogenic bladder. 12. GERD- continue PPI. 13. Anemia of chronic disease/iron deficiency anemia-continue iron supplementation. Stable. CODE STATUS: DNR CCA DVT prophylaxis-SCDs. Pharmacologic prophylaxis contraindicated due to history of intracranial bleed. This patient was seen by SB Penny under the supervision of Dr. Felix. <Darnell Felix - Last Filed: 04/17/18 14:10> Subjective: Had rigors earlier, improved after tylenol. - Physical Exam General: - - awake. NAD. afebrile. HEENT: Atraumatic, Normocephalic Lungs: Clear to auscultation, No rhonchi, No wheeze, Diminished Cardiovascular: Regular rate, Regular Rhythm, Normal S1, Normal S2, No murmurs Abdomen: Bowel Sounds Present, Soft, Non Tender, Non-Distended, - Extremities: No edema, No Calf Tenderness Skin: No rashes, No breakdown, - Neurological: - Vital Signs Temp Pulse Resp BP Pulse Ox 38.8 C H 129 H 21 H 138/72 H 99 04/17/18 13:00 04/17/18 13:00 04/17/18 13:00 04/17/18 13:00 04/17/18 13:00 Oxygen Flow Rate (L/min) 5 Oxygen Delivery Method Nasal Cannula Weight: 104.8 kg Body Mass Index (BMI) 29.6 Finger Stick Blood Glucose 250 Intake and Output for Last 24 Hours 04/15/18 04/16/18 04/17/18 23:59 23:59 23:59 Intake Total 145 / 145 Balance 145 / 145 Laboratory Tests Past 24 Hrs 04/17/18 04/17/18 04/17/18 02:40 02:40 02:40 WBC 11.7 H RBC 4.05 L Hgb 12.0 L Hct 37.2 L MCV 91.9 MCH 29.6 MCHC 32.3 RDW 15.7 H RDW Differential 51.1 H Plt Count 228 MPV 11.2 Immature Gran % (Auto) 0.500 Neut % (Auto) 92.4 H Lymph % (Auto) 3.3 L [place] % (Auto) 3.5 Eos % (Auto) 0.1 Baso % (Auto) 0.2 Absolute Neuts (auto) 10.8 H Absolute Lymphs (auto) 0.39 L Total Counted Not Reportable PT 14.8 INR 1.2 APTT 29.8 Sodium Potassium Chloride Carbon Dioxide Anion Gap BUN Creatinine Estim Creat Clear Calc Est GFR (MDRD) Af Amer Est GFR (MDRD) Non-Af BUN/Creatinine Ratio Glucose Lactic Acid 3.7 H Calcium Total Bilirubin AST ALT Alkaline Phosphatase Troponin I Total Protein Albumin Globulin Albumin/Globulin Ratio Urine Color Urine Clarity Urine pH Ur Specific [place] Urine Protein Urine Glucose (UA) Urine Ketones Urine Occult Blood Urine Nitrite Urine Bilirubin Urine Urobilinogen Ur Leukocyte Esterase Urine RBC Urine WBC Ur Squamous Epith Cells Urine Bacteria Urine Mucus S.aureus Protein A PCR MRSA (PCR) 04/17/18 04/17/18 04/17/18 02:40 03:08 06:55 WBC RBC Hgb Hct MCV MCH MCHC RDW RDW Differential Plt Count MPV Immature Gran % (Auto) Neut % (Auto) Lymph % (Auto) [place] % (Auto) Eos % (Auto) Baso % (Auto) Absolute Neuts (auto) Absolute Lymphs (auto) Total Counted PT INR APTT Sodium 139 Potassium 3.8 Chloride 102 Carbon Dioxide 24.0 Anion Gap 13 BUN 15 Creatinine 1.08 Estim Creat Clear Calc 77.17 Est GFR (MDRD) Af Amer 88 Est GFR (MDRD) Non-Af 72 BUN/Creatinine Ratio 13.9 Glucose 248 H Lactic Acid Calcium 8.5 Total Bilirubin 0.50 AST 14 L ALT 39 Alkaline Phosphatase 133 H Troponin I < 0.015 Total Protein 7.2 Albumin 2.5 L Globulin 4.7 H Albumin/Globulin Ratio 0.5 L Urine Color Yellow Urine Clarity Sl. Cloudy Urine pH 8.0 Ur Specific [place] 1.010 Urine Protein 30 H Urine Glucose (UA) 1000 H Urine Ketones Negative Urine Occult Blood 250 H Urine Nitrite Negative Urine Bilirubin Negative Urine Urobilinogen Normal Ur Leukocyte Esterase 500 H Urine RBC 5-10 SEEN Urine WBC >100 SEEN Ur Squamous Epith Cells 0 SEEN Urine Bacteria 3+ Urine Mucus 0 SEEN S.aureus Protein A PCR NEGATIVE MRSA (PCR) Negative 04/17/18 04/17/18 04/17/18 07:15 07:47 10:36 WBC 11.1 H RBC 3.69 L Hgb 10.9 L Hct 34.7 L MCV 94.0 MCH 29.5 MCHC 31.4 L RDW 16.2 H RDW Differential 56.4 H Plt Count 192 MPV 11.3 Immature Gran % (Auto) Neut % (Auto) Lymph % (Auto) [place] % (Auto) Eos % (Auto) Baso % (Auto) Absolute Neuts (auto) Absolute Lymphs (auto) Total Counted PT INR APTT Sodium Potassium Chloride Carbon Dioxide Anion Gap BUN Creatinine Estim Creat Clear Calc Est GFR (MDRD) Af Amer Est GFR (MDRD) Non-Af BUN/Creatinine Ratio Glucose Lactic Acid 1.6 Calcium Total Bilirubin AST ALT Alkaline Phosphatase Troponin I Total Protein Albumin Globulin Albumin/Globulin Ratio Urine Color Urine Clarity Urine pH Ur Specific [place] Urine Protein Urine Glucose (UA) Urine Ketones Urine Occult Blood Urine Nitrite Urine Bilirubin Urine Urobilinogen Ur Leukocyte Esterase Urine RBC Urine WBC Ur Squamous Epith Cells Urine Bacteria Urine Mucus S.aureus Protein A PCR MRSA (PCR) POSITIVE H POC Glucose 04/17/18 11:37 POC Glucose 232 H Assessment/Plan Patient seen and examined independently. Data reviewed. I agree with the above note by the nurse practitioner. 1. Severe sepsis Present on arrival Secondary to UTI 2. Catheter associated UTI Continue with Rocephin Follow-up urine culture Change Lane catheter 3. Dysphagia Chronic PEG tube is infrequently being used, only for certain medications that the patient may not like the taste of. But essentially patient is taking everything by mouth now Patient to follow-up with his PCP. Would recommend patient follow-up with a automatic pinsetter adjuster or general surgeon who placed the PEG tube 4. Sacral decubitus ulcers Chronic Wound care Discussed with the patient's at bedside. Code Visit Inpatient E&M: [id number] Subs Hosp L2
[2018-04-17] MEDS: Acetaminophen 325 MG Tablet 650 MG PO (13:14)
--- NOTE | 2018-04-17 13:32 | PN_ITS ---
<Lula Ledesma - Last Filed: 04/17/18 13:32> Patient Problems: Active and Suspected Problems (Last Updated 01/15/18 @ 18:40 by Darnell Felix DO) Complicated CAUTI (Acute) Severe sepsis (Acute) Subjective: Patient seen and examined. at bedside. Patient lethargic on assessment. Nursing reports patient with fever and rigors this morning, tachypnea. T-max 101.8. - Physical Exam General: Lethargic HEENT: Atraumatic, PERRLA, EOMI, Normocephalic Oral: Dry Mucosa Neck: Supple, No JVD, Negative Carotid Bruits Lungs: Clear to auscultation, Diminished Cardiovascular: Regular Rhythm, Normal S1, Normal S2, No murmurs, Tachycardic Abdomen: Bowel Sounds Present, Soft, Non Tender, Non-Distended, - - PEG tube intact. Extremities: No clubbing, No cyanosis, No edema, Capillary Refill Less than 3 Seconds Skin: No rashes, No breakdown, - - chronic sacral decubitus ulcer stage IV, present on admission. 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 Psych/Mental Status: - - Unable to assess due to lethargy. Vital Signs Temp Pulse Resp BP Pulse Ox 101.8 F H 136 H 34 H 129/52 H 99 04/17/18 12:00 04/17/18 12:00 04/17/18 12:00 04/17/18 12:00 04/17/18 12:00 Oxygen Flow Rate (L/min) 5 Oxygen Delivery Method Nasal Cannula Weight: 231 lb 0.711 oz Body Mass Index (BMI) 29.6 Finger Stick Blood Glucose 250 Intake and Output for Last 24 Hours 04/15/18 04/16/18 04/17/18 23:59 23:59 23:59 Intake Total 145 / 145 Balance 145 / 145 Laboratory Tests Past 24 Hrs 04/17/18 04/17/18 04/17/18 02:40 02:40 02:40 WBC 11.7 H RBC 4.05 L Hgb 12.0 L Hct 37.2 L MCV 91.9 MCH 29.6 MCHC 32.3 RDW 15.7 H RDW Differential 51.1 H Plt Count 228 MPV 11.2 Immature Gran % (Auto) 0.500 Neut % (Auto) 92.4 H Lymph % (Auto) 3.3 L [place] % (Auto) 3.5 Eos % (Auto) 0.1 Baso % (Auto) 0.2 Absolute Neuts (auto) 10.8 H Absolute Lymphs (auto) 0.39 L Total Counted Not Reportable PT 14.8 INR 1.2 APTT 29.8 Sodium Potassium Chloride Carbon Dioxide Anion Gap BUN Creatinine Estim Creat Clear Calc Est GFR (MDRD) Af Amer Est GFR (MDRD) Non-Af BUN/Creatinine Ratio Glucose Lactic Acid 3.7 H Calcium Total Bilirubin AST ALT Alkaline Phosphatase Troponin I Total Protein Albumin Globulin Albumin/Globulin Ratio Urine Color Urine Clarity Urine pH Ur Specific [place] Urine Protein Urine Glucose (UA) Urine Ketones Urine Occult Blood Urine Nitrite Urine Bilirubin Urine Urobilinogen Ur Leukocyte Esterase Urine RBC Urine WBC Ur Squamous Epith Cells Urine Bacteria Urine Mucus S.aureus Protein A PCR MRSA (PCR) 04/17/18 04/17/18 04/17/18 02:40 03:08 06:55 WBC RBC Hgb Hct MCV MCH MCHC RDW RDW Differential Plt Count MPV Immature Gran % (Auto) Neut % (Auto) Lymph % (Auto) [place] % (Auto) Eos % (Auto) Baso % (Auto) Absolute Neuts (auto) Absolute Lymphs (auto) Total Counted PT INR APTT Sodium 139 Potassium 3.8 Chloride 102 Carbon Dioxide 24.0 Anion Gap 13 BUN 15 Creatinine 1.08 Estim Creat Clear Calc 77.17 Est GFR (MDRD) Af Amer 88 Est GFR (MDRD) Non-Af 72 BUN/Creatinine Ratio 13.9 Glucose 248 H Lactic Acid Calcium 8.5 Total Bilirubin 0.50 AST 14 L ALT 39 Alkaline Phosphatase 133 H Troponin I < 0.015 Total Protein 7.2 Albumin 2.5 L Globulin 4.7 H Albumin/Globulin Ratio 0.5 L Urine Color Yellow Urine Clarity Sl. Cloudy Urine pH 8.0 Ur Specific [place] 1.010 Urine Protein 30 H Urine Glucose (UA) 1000 H Urine Ketones Negative Urine Occult Blood 250 H Urine Nitrite Negative Urine Bilirubin Negative Urine Urobilinogen Normal Ur Leukocyte Esterase 500 H Urine RBC 5-10 SEEN Urine WBC >100 SEEN Ur Squamous Epith Cells 0 SEEN Urine Bacteria 3+ Urine Mucus 0 SEEN S.aureus Protein A PCR NEGATIVE MRSA (PCR) Negative 04/17/18 04/17/18 04/17/18 07:15 07:47 10:36 WBC 11.1 H RBC 3.69 L Hgb 10.9 L Hct 34.7 L MCV 94.0 MCH 29.5 MCHC 31.4 L RDW 16.2 H RDW Differential 56.4 H Plt Count 192 MPV 11.3 Immature Gran % (Auto) Neut % (Auto) Lymph % (Auto) [place] % (Auto) Eos % (Auto) Baso % (Auto) Absolute Neuts (auto) Absolute Lymphs (auto) Total Counted PT INR APTT Sodium Potassium Chloride Carbon Dioxide Anion Gap BUN Creatinine Estim Creat Clear Calc Est GFR (MDRD) Af Amer Est GFR (MDRD) Non-Af BUN/Creatinine Ratio Glucose Lactic Acid 1.6 Calcium Total Bilirubin AST ALT Alkaline Phosphatase Troponin I Total Protein Albumin Globulin Albumin/Globulin Ratio Urine Color Urine Clarity Urine pH Ur Specific [place] Urine Protein Urine Glucose (UA) Urine Ketones Urine Occult Blood Urine Nitrite Urine Bilirubin Urine Urobilinogen Ur Leukocyte Esterase Urine RBC Urine WBC Ur Squamous Epith Cells Urine Bacteria Urine Mucus S.aureus Protein A PCR MRSA (PCR) POSITIVE H POC Glucose 04/17/18 11:37 POC Glucose 232 H Medical Necessity - Tobacco Use Smoking Status: Former smoker Assessment/Plan All Active Problems (Last Updated 01/15/18 @ 18:40 by Darnell Felix DO) Complicated CAUTI (Acute) Severe sepsis (Acute) Alcohol intoxication (Resolved) Sepsis (Resolved) Healthcare associated bacteremia due to Staphylococcus aureus (Resolved) Infected decubitus ulcer (Resolved) Infected decubitus ulcer (Resolved) Demand ischemia (Resolved) Acute respiratory failure with hypoxia and hypercarbia (Resolved) Multifocal community-acquired pneumonia (Resolved) Severe sepsis (Resolved) 1. Severe sepsis secondary to catheter associated UTI-UA positive on admission. Urine and blood cultures pending. Wound culture sent today as well to rule out other infectious source. Chest x-ray without acute process on admission. White count improving. T-max 101.8. Tylenol as needed for fever. Continue IV Rocephin. If catheter has not been changed recently, will need replaced. Patient has chronic Lane due to neurogenic bladder. Lactic acidosis resolved. 2. Chronic sacral decubitus ulcer stage IV-status post diverting colostomy and PEG tube January 2018. Wound does not appear infected. Culture sent regardless given severe sepsis on admission. Wound RN consult. Frequent position changes. Sacral cultures positive for MDR serratia marcescens, VRE, MSSA, e.coli. Osteomyelitis suspected during prior admission which was ruled out. Patient un derwent excision of sacral pressure sore 01/22/[address] Juarez. Wound vac was place after that time and patient completed extensive course of antibiotics which were completed 03/05/18. ID involved with patient in the past. Consider ID consult if wound cx significant. 3. History of CVA with residual right-sided hemiplegia, history of traumatic brain injury and intracranial bleed following mechanical fall on anticoagulation- Currently residing in SNF. PT/OT/ST. S/P peg tube. Continue tube feeds. Continue statin. 4. Type 2 diabetes [id number]-Ebeln before meals at bedtime with sliding s wilfredo insulin. Continue home long-acting and lispro regimen. 5. CAD status post CABG X3 and stents- Follows with Dr. Roche. 6. Ischemic cardiomyopathy-echo March 2017 with EF 45%. 7. Hypertension- stable, continue home metoprolol regimen. 8. Hyperlipidemia-continue statin. 9. JIM- continue CPAP. 10. Chronic COPD- no acute exacerbation. Albuterol aerosol as needed. 11. BPH- Continue home flomax regimen. Lane in place due to neurogenic bladder. 12. GERD- continue PPI. 13. Anemia of chronic disease/iron deficiency anemia-continue iron supplementation. Stable. CODE STATUS: DNR CCA DVT prophylaxis-SCDs. Pharmacologic prophylaxis contraindicated due to history of intracranial bleed. This patient was seen by SB Penny under the supervision of Dr. Felix. <Darnell Felix - Last Filed: 04/17/18 14:10> Subjective: Had rigors earlier, improved after tylenol. - Physical Exam General: - - awake. NAD. afebrile. HEENT: Atraumatic, Normocephalic Lungs: Clear to auscultation, No rhonchi, No wheeze, Diminished Cardiovascular: Regular rate, Regular Rhythm, Normal S1, Normal S2, No murmurs Abdomen: Bowel Sounds Present, Soft, Non Tender, Non-Distended, - Extremities: No edema, No Calf Tenderness Skin: No rashes, No breakdown, - Neurological: - Vital Signs Temp Pulse Resp BP Pulse Ox 38.8 C H 129 H 21 H 138/72 H 99 04/17/18 13:00 04/17/18 13:00 04/17/18 13:00 04/17/18 13:00 04/17/18 13:00 Oxygen Flow Rate (L/min) 5 Oxygen Delivery Method Nasal Cannula Weight: 104.8 kg Body Mass Index (BMI) 29.6 Finger Stick Blood Glucose 250 Intake and Output for Last 24 Hours 04/15/18 04/16/18 04/17/18 23:59 23:59 23:59 Intake Total 145 / 145 Balance 145 / 145 Laboratory Tests Past 24 Hrs 04/17/18 04/17/18 04/17/18 02:40 02:40 02:40 WBC 11.7 H RBC 4.05 L Hgb 12.0 L Hct 37.2 L MCV 91.9 MCH 29.6 MCHC 32.3 RDW 15.7 H RDW Differential 51.1 H Plt Count 228 MPV 11.2 Immature Gran % (Auto) 0.500 Neut % (Auto) 92.4 H Lymph % (Auto) 3.3 L [place] % (Auto) 3.5 Eos % (Auto) 0.1 Baso % (Auto) 0.2 Absolute Neuts (auto) 10.8 H Absolute Lymphs (auto) 0.39 L Total Counted Not Reportable PT 14.8 INR 1.2 APTT 29.8 Sodium Potassium Chloride Carbon Dioxide Anion Gap BUN Creatinine Estim Creat Clear Calc Est GFR (MDRD) Af Amer Est GFR (MDRD) Non-Af BUN/Creatinine Ratio Glucose Lactic Acid 3.7 H Calcium Total Bilirubin AST ALT Alkaline Phosphatase Troponin I Total Protein Albumin Globulin Albumin/Globulin Ratio Urine Color Urine Clarity Urine pH Ur Specific [place] Urine Protein Urine Glucose (UA) Urine Ketones Urine Occult Blood Urine Nitrite Urine Bilirubin Urine Urobilinogen Ur Leukocyte Esterase Urine RBC Urine WBC Ur Squamous Epith Cells Urine Bacteria Urine Mucus S.aureus Protein A PCR MRSA (PCR) 04/17/18 04/17/18 04/17/18 02:40 03:08 06:55 WBC RBC Hgb Hct MCV MCH MCHC RDW RDW Differential Plt Count MPV Immature Gran % (Auto) Neut % (Auto) Lymph % (Auto) [place] % (Auto) Eos % (Auto) Baso % (Auto) Absolute Neuts (auto) Absolute Lymphs (auto) Total Counted PT INR APTT Sodium 139 Potassium 3.8 Chloride 102 Carbon Dioxide 24.0 Anion Gap 13 BUN 15 Creatinine 1.08 Estim Creat Clear Calc 77.17 Est GFR (MDRD) Af Amer 88 Est GFR (MDRD) Non-Af 72 BUN/Creatinine Ratio 13.9 Glucose 248 H Lactic Acid Calcium 8.5 Total Bilirubin 0.50 AST 14 L ALT 39 Alkaline Phosphatase 133 H Troponin I < 0.015 Total Protein 7.2 Albumin 2.5 L Globulin 4.7 H Albumin/Globulin Ratio 0.5 L Urine Color Yellow Urine Clarity Sl. Cloudy Urine pH 8.0 Ur Specific [place] 1.010 Urine Protein 30 H Urine Glucose (UA) 1000 H Urine Ketones Negative Urine Occult Blood 250 H Urine Nitrite Negative Urine Bilirubin Negative Urine Urobilinogen Normal Ur Leukocyte Esterase 500 H Urine RBC 5-10 SEEN Urine WBC >100 SEEN Ur Squamous Epith Cells 0 SEEN Urine Bacteria 3+ Urine Mucus 0 SEEN S.aureus Protein A PCR NEGATIVE MRSA (PCR) Negative 04/17/18 04/17/18 04/17/18 07:15 07:47 10:36 WBC 11.1 H RBC 3.69 L Hgb 10.9 L Hct 34.7 L MCV 94.0 MCH 29.5 MCHC 31.4 L RDW 16.2 H RDW Differential 56.4 H Plt Count 192 MPV 11.3 Immature Gran % (Auto) Neut % (Auto) Lymph % (Auto) [place] % (Auto) Eos % (Auto) Baso % (Auto) Absolute Neuts (auto) Absolute Lymphs (auto) Total Counted PT INR APTT Sodium Potassium Chloride Carbon Dioxide Anion Gap BUN Creatinine Estim Creat Clear Calc Est GFR (MDRD) Af Amer Est GFR (MDRD) Non-Af BUN/Creatinine Ratio Glucose Lactic Acid 1.6 Calcium Total Bilirubin AST ALT Alkaline Phosphatase Troponin I Total Protein Albumin Globulin Albumin/Globulin Ratio Urine Color Urine Clarity Urine pH Ur Specific [place] Urine Protein Urine Glucose (UA) Urine Ketones Urine Occult Blood Urine Nitrite Urine Bilirubin Urine Urobilinogen Ur Leukocyte Esterase Urine RBC Urine WBC Ur Squamous Epith Cells Urine Bacteria Urine Mucus S.aureus Protein A PCR MRSA (PCR) POSITIVE H POC Glucose 04/17/18 11:37 POC Glucose 232 H Assessment/Plan Patient seen and examined independently. Data reviewed. I agree with the above note by the nurse practitioner. 1. Severe sepsis * Present on arrival * Secondary to UTI 2. Catheter associated UTI * Continue with Rocephin * Follow-up urine culture * Change Lane catheter 3. Dysphagia * Chronic * PEG tube is infrequently being used, only for certain medications that the patient may not like the taste of. But essentially patient is taking everything by mouth now * Patient to follow-up with his PCP. Would recommend patient follow-up with a fisher eel spear or general surgeon who placed the PEG tube 4. Sacral decubitus ulcers * Chronic * Wound care Discussed with the patient's at bedside. Code Visit Inpatient E&M: 83884 Subs Hosp L2
--- NOTE | 2018-04-17 14:00 | NURSING ---
Patient doing much better. Resting comfortably. Respirations 25, easy and unlabored. HR in low 110's. States he is feeling better.
[2018-04-17] MEDS: Metoprolol Tartrate 100 MG Tablet PO (14:44)
--- NOTE | 2018-04-17 15:40 | CM.UR ---
Attempted to meet with patient. Lethargic. Spoke with . States he goes to [facility] in [place] but only for his diabetes. Also she anticipates him going back to [facility]. Alerted SW. Orquidea Coleman RN, [facility].
[2018-04-17] MEDS: CLARIFY ORDER NOTE (15:49)
--- NOTE | 2018-04-17 17:23 | NURSING ---
This RN taking over care at this time
[2018-04-17] MEDS: Magnesium Oxide 400 MG Tablet PO (17:24)
[2018-04-17] MEDS: Insulin Lispro 100 UNIT/ML INSULN.PEN 12 UNIT SC (17:24)
[2018-04-17] MEDS: Insulin Lispro 100 UNIT/ML INSULN.PEN SC ×2 (17:24→22:35)
[2018-04-17 17:40] LABS: Bedside Glucose 246 mg/dL (70-110)
[2018-04-17] MEDS: 0.9% NaCl Peripheral Flush Adult/Peds IV (22:30)
[2018-04-17] MEDS: Ammonium Lactate 225 gm Bottle 1 APPLIC TOPICAL (22:38)
[2018-04-17 23:16] LABS: Bedside Glucose 170 mg/dL (70-110)
[2018-04-18] VITALS (14 sets, daily range): BP systolic 93–139; BP diastolic 34–76; PULSE 71–99; RESP 16–20; TEMP 36.7–37.2; O2SAT 95–97
[2018-04-18 02:36] LABS: Bedside Glucose 154 mg/dL (70-110)
[2018-04-18] MEDS: Metoprolol Tartrate 100 MG Tablet PO ×3 (05:38→21:20)
--- NOTE | 2018-04-18 05:55 | US_ITS ---
STUDY: RENAL ULTRASOUND - COMPLETE REASON FOR EXAM: Male, 67 years old. Recurrent UTIs. Neurogenic bladder. TECHNIQUE: Ultrasound evaluation of the kidneys was performed with real-time and static cole-scale imaging. COMPARISON: None. FINDINGS: RIGHT KIDNEY: Normal location of the right kidney, which is normal in size. The right kidney measures 13.7 cm x 6.3 cm x 5.4 cm. There is a normal cortex of the right kidney. The renal cortex measures 1.6 cm. 2 cysts are seen. The larger measures 2.1 cm x 1.9 cm x 1.8 cm. There are no right renal calculi. There is no right hydronephrosis. DISTAL RIGHT URETER: There is non-visualization of the distal right ureter. There is no demonstrated right ureterovesical junction calculus. There is no demonstrated right ureteral jet. LEFT KIDNEY: Normal location of the left kidney, which is normal in size. The left kidney measures 13.0 cm x 6.7 cm x 6.5 cm. There is a normal cortex of the left kidney. The renal cortex measures 1.5 cm. There is a 2.1 cm x 1.5 cm x 1.8 cm cyst in the lower pole of the kidney. There are no left renal calculi. There is no left hydronephrosis. DISTAL LEFT URETER: There is non-visualization of the distal left ureter. There is no demonstrated left ureterovesical junction calculus. There is no demonstrated left ureteral jet. BLADDER: A Lane catheter is seen within the urinary bladder. The bladder is empty. US/Kidney and Bladder IMPRESSION: Small bilateral renal cysts. No evidence of hydronephrosis. Electronically Signed: Bakari Briggs MD at 11:14 EST Tel [phone], Service support ,
[2018-04-18 06:41] LABS: Hematocrit 33.2 % (40-54); Hemoglobin 10.1 g/dl (13.0-16.5); Mean Corp Hgb Conc 30.4 g/gl (32-36); Mean Corpuscular Hgb 29.1 pg (27.0-32.0); Mean Corpuscular Volume 95.7 fL (80-94); Mean Platelet Vol. 11.6 fl (6.2-12.0); Platelet Count 179 K/mm3 (150-450); RBC Distribution Width CV 16.1 % (11.6-14.6); RBC Distribution Width SD 54.5 fl (35.1-43.9); Red Blood Count 3.47 M/mm3 (4.6-6.2); White Blood Count 6.5 K/mm3 (4.4-11.0)
[2018-04-18 06:51] LABS: Scan Indicated on CBC? Y/N NO
[2018-04-18 06:56] LABS: Bedside Glucose 152 mg/dL (70-110)
[2018-04-18 07:08] LABS: Anion Gap 7 (5-15); BUN 12 mg/dL (7-18); BUN/Creat Ratio 18.9 RATIO (10-20); Calcium,Total 8.6 mg/dL (8.5-10.1); Chloride 108 mmol/L (98-107); Creatinine, Serum 0.64 mg/dL (0.70-1.30); EST Glomerular Filtration Rate 133 mL/min (>60); Est Glom Filt Rate - Afr Amer 161 mL/min (>60); Estimated Creatinine Clearance 83.34 ml/min; Glucose 163 mg/dL (74-106); Potassium 3.5 mmol/L (3.5-5.1); Sodium Level 143 mmol/L (136-145)
[2018-04-18] MEDS: Tamsulosin HCl 0.4 MG Capsule PO (08:07)
[2018-04-18] MEDS: Iron Polysaccharide Complex 150 MG CAPSULE PO (08:07)
[2018-04-18] MEDS: Insulin Lispro 100 UNIT/ML INSULN.PEN SC ×4 (08:08→21:26)
[2018-04-18] MEDS: Magnesium Oxide 400 MG Tablet PO ×3 (08:08→16:29)
[2018-04-18] MEDS: Insulin Lispro 100 UNIT/ML INSULN.PEN 12 UNIT SC ×3 (08:08→16:30)
[2018-04-18 08:56] LABS: Hemoglobin A1c 8.9 % (4.2-6.3)
[2018-04-18] MEDS: Ceftriaxone 1 GM/50 ML BAG IV ×2 (10:00→21:20)
[2018-04-18] MEDS: Famotidine 20 MG Tablet PO ×2 (10:00→21:20)
[2018-04-18] MEDS: Polyethylene Glycol 3350 17 GM PACKET GT (10:00)
[2018-04-18] MEDS: Amantadine 100 MG Capsule PO (10:00)
[2018-04-18] MEDS: Senna/Docusate Sodium 1 Tablet 2 TABLET PO ×2 (10:00→21:20)
[2018-04-18] MEDS: Pantoprazole Sodium 40 MG Tablet PO (10:00)
[2018-04-18] MEDS: Glucerna Shake 120 ML LIQUID PO ×4 (10:00→21:19)
[2018-04-18 12:10] LABS: Bedside Glucose 269 mg/dL (70-110)
--- NOTE | 2018-04-18 12:14 | PCM.PROGNOTE ---
<Lula Ledesma - Last Filed: 04/18/18 12:34> Patient Problems: Active and Suspected Problems (Last Updated 04/17/18 @ 14:09 by Darnell Felix DO) Complicated CAUTI (Acute) Severe sepsis (Acute) Subjective: Patient seen and examined. Feels improved today. Alert and oriented during assessment. Denies fever, chills. No other complaints. - Physical Exam General: Alert, Oriented x3, Cooperative HEENT: Atraumatic, PERRLA, EOMI, Normocephalic Oral: Moist Mucosa Neck: Supple, No JVD, Negative Carotid Bruits Lungs: Clear to auscultation, Diminished Cardiovascular: Regular rate, Regular Rhythm, Normal S1, Normal S2, No murmurs Abdomen: Bowel Sounds Present, Soft, Non Tender, Non-Distended, - - PEG tube intact Extremities: No clubbing, No cyanosis, No edema, Capillary Refill Less than 3 Seconds Skin: - - Chronic sacral decubitus ulcer stage IV, present on admission. 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 Psych/Mental Status: Normal Affect, Appropriate Vital Signs Temp Pulse Resp BP Pulse Ox 98.5 F 96 20 H 108/59 L 96 04/18/18 10:00 04/18/18 11:10 04/18/18 10:00 04/18/18 10:00 04/18/18 10:00 Oxygen Flow Rate (L/min) 5 Oxygen Delivery Method Room Air Weight: 231 lb 0.711 oz Body Mass Index (BMI) 29.6 Finger Stick Blood Glucose 250 Intake and Output for Last 24 Hours 04/16/18 04/17/18 04/18/18 23:59 23:59 23:59 Intake Total 1386 / 1386 138.3 / 138.3 Output Total 975 / 975 1650 / 1650 Balance 411 / 411 -1511.7 / -1511.7 Microbiology Past 72 Hours 04/17/18 03:08 Urine Culture - Preliminary Urine Catheter - Catheter GNR lactose jigger machine operator Gram negative rebecca Laboratory Tests Past 24 Hrs 04/18/18 04/18/18 04/18/18 06:15 06:15 06:15 WBC 6.5 RBC 3.47 L Hgb 10.1 L Hct 33.2 L MCV 95.7 H MCH 29.1 MCHC 30.4 L RDW 16.1 H RDW Differential 54.5 H Plt Count 179 MPV 11.6 Sodium 143 Potassium 3.5 Chloride 108 H Carbon Dioxide 28.0 Anion Gap 7 BUN 12 Creatinine 0.64 L Estim Creat Clear Calc 83.34 Est GFR (MDRD) Af Amer 161 Est GFR (MDRD) Non-Af 133 BUN/Creatinine Ratio 18.9 Glucose 163 H Hemoglobin A1c 8.9 H Calcium 8.6 POC Glucose 04/18/18 04/18/18 04/18/18 12:07 06:51 02:30 POC Glucose 269 H 152 H 154 H 04/17/18 04/17/18 22:21 17:23 POC Glucose 170 H 246 H Medical Necessity - Tobacco Use Smoking Status: Former smoker Assessment/Plan All Active Problems (Last Updated 04/17/18 @ 14:09 by Darnell Felix DO) Complicated CAUTI (Acute) Severe sepsis (Acute) Alcohol intoxication (Resolved) Sepsis (Resolved) Healthcare associated bacteremia due to Staphylococcus aureus (Resolved) Infected decubitus ulcer (Resolved) Infected decubitus ulcer (Resolved) Demand ischemia (Resolved) Acute respiratory failure with hypoxia and hypercarbia (Resolved) Multifocal community-acquired pneumonia (Resolved) Severe sepsis (Resolved) 1. Severe sepsis secondary to catheter associated UTI, present on admission-UA positive on admission. Urine culture GNR lactose jigger machine operator/gram negative rebecca. Blood cultures pending. Chest x-ray without acute process on admission. White count improved. Afebrile overnight. Tylenol as needed for fever. Continue IV Rocephin. Patient has chronic Lane due to neurogenic bladder. Catheter changed 04/17/18. Lactic acidosis resolved. 2. Chronic sacral decubitus ulcer stage IV-status post diverting colostomy and PEG tube January 2018. Wound does not appear infected. Culture sent regardless given severe sepsis on admission. Wound RN consult. Frequent position changes. Sacral cultures positive for MDR serratia marcescens, VRE, MSSA, e.coli. Osteomyelitis suspected during prior admission which was ruled out. Patient underwent excision of sacral pressure sore 01/22/[address] Juarez. Wound vac was place after that time and patient completed extensive course of antibiotics which were completed 03/05/18. ID involved with patient in the past. Consider ID consult if wound cx significant. 3. History of CVA with residual right-sided hemiplegia, history of traumatic brain injury and intracranial bleed following mechanical fall on anticoagulation- Currently residing in SNF. PT/OT/ST. S/P peg tube. PEG tube used infrequently. Tolerating regular diet. Continue statin. 4. Type 2 diabetes [id number]-[id number]-Gwrse before meals at bedtime with sliding scale insulin. Continue home long-acting and lispro regimen. Increase SSI to med-high dosing. 5. CAD status post CABG X3 and stents- Follows with Dr. Roche. 6. Ischemic cardiomyopathy-echo March 2017 with EF 45%. 7. Hypertension- stable, continue home metoprolol regimen. 8. Hyperlipidemia-continue statin. 9. JIM- continue CPAP. 10. Chronic COPD- no acute exacerbation. Albuterol aerosol as needed. 11. BPH- Continue home flomax regimen. Lane in place due to neurogenic bladder. 12. GERD- continue PPI. 13. Anemia of chronic disease/iron deficiency anemia-continue iron supplementation. Stable. CODE STATUS: DNR CCA DVT prophylaxis-SCDs. Pharmacologic prophylaxis contraindicated due to history of intracranial bleed. This patient was seen by SB Penny under the supervision of Dr. Felix. <Darnell Felix - Last Filed: 04/18/18 13:15> Subjective: Feeling well, no rigors. - Physical Exam General: Alert, Cooperative HEENT: Atraumatic, Normocephalic Oral: Moist Mucosa, No Gingival or Mucosal Lesions/ Ulcerations Lungs: Clear to auscultation, Normal air movement, No rhonchi, No wheeze Cardiovascular: Regular rate, Regular Rhythm, Normal S1, Normal S2, No murmurs Abdomen: Bowel Sounds Present, Soft, Non Tender, Non-Distended, - Extremities: No edema, No Calf Tenderness Skin: - Neurological: - Psych/Mental Status: Normal Affect, Appropriate Vital Signs Temp Pulse Resp BP Pulse Ox 36.9 C 99 20 H 108/59 L 96 04/18/18 10:00 04/18/18 12:59 04/18/18 10:00 04/18/18 10:00 04/18/18 10:00 Oxygen Flow Rate (L/min) 5 Oxygen Delivery Method Room Air Weight: 104.8 kg Body Mass Index (BMI) 29.6 Finger Stick Blood Glucose 250 Intake and Output for Last 24 Hours 04/16/18 04/17/18 04/18/18 23:59 23:59 23:59 Intake Total 1386 / 1386 1305.8 / 1305.8 Output Total 975 / 975 2049 Balance 411 / 411 -744.2 / -744.2 Microbiology Past 72 Hours 04/17/18 03:08 Urine Culture - Preliminary Urine Catheter - Catheter GNR lactose jigger machine operator Gram negative rebecca Laboratory Tests Past 24 Hrs 04/18/18 04/18/18 04/18/18 06:15 06:15 06:15 WBC 6.5 RBC 3.47 L Hgb 10.1 L Hct 33.2 L MCV 95.7 H MCH 29.1 MCHC 30.4 L RDW 16.1 H RDW Differential 54.5 H Plt Count 179 MPV 11.6 Sodium 143 Potassium 3.5 Chloride 108 H Carbon Dioxide 28.0 Anion Gap 7 BUN 12 Creatinine 0.64 L Estim Creat Clear Calc 83.34 Est GFR (MDRD) Af Amer 161 Est GFR (MDRD) Non-Af 133 BUN/Creatinine Ratio 18.9 Glucose 163 H Hemoglobin A1c 8.9 H Calcium 8.6 POC Glucose 04/18/18 04/18/18 04/18/18 12:07 06:51 02:30 POC Glucose 269 H 152 H 154 H 04/17/18 04/17/18 22:21 17:23 POC Glucose 170 H 246 H Assessment/Plan Patient seen and examined independently. Data reviewed. I agree with the above note by the nurse practitioner. 1. Severe sepsis resolved Present on arrival Secondary to UTI 2. Catheter associated UTI Continue with Rocephin Follow-up urine culture Lane changed 04/17 3. Dysphagia Chronic PEG tube is infrequently being used, only for certain medications that the patient may not like the taste of. But essentially patient is taking everything by mouth now Patient to follow-up with his PCP. Would recommend patient follow-up with a cant gang sawyer or general surgeon who placed the PEG tube 4. Sacral decubitus ulcers Chronic Wound care Discussed with the patient's at bedside. Code Visit Inpatient E&M: 37968 Subs Hosp L2
--- NOTE | 2018-04-18 12:34 | PN_ITS ---
<Lula Ledesma - Last Filed: 04/18/18 12:34> Patient Problems: Active and Suspected Problems (Last Updated 04/17/18 @ 14:09 by Darnell Felix DO) Complicated CAUTI (Acute) Severe sepsis (Acute) Subjective: Patient seen and examined. Feels improved today. Alert and oriented during assessment. Denies fever, chills. No other complaints. - Physical Exam General: Alert, Oriented x3, Cooperative HEENT: Atraumatic, PERRLA, EOMI, Normocephalic Oral: Moist Mucosa Neck: Supple, No JVD, Negative Carotid Bruits Lungs: Clear to auscultation, Diminished Cardiovascular: Regular rate, Regular Rhythm, Normal S1, Normal S2, No murmurs Abdomen: Bowel Sounds Present, Soft, Non Tender, Non-Distended, - - PEG tube intact Extremities: No clubbing, No cyanosis, No edema, Capillary Refill Less than 3 Seconds Skin: - - Chronic sacral decubitus ulcer stage IV, present on admission. 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 Psych/Mental Status: Normal Affect, Appropriate Vital Signs Temp Pulse Resp BP Pulse Ox 98.5 F 96 20 H 108/59 L 96 04/18/18 10:00 04/18/18 11:10 04/18/18 10:00 04/18/18 10:00 04/18/18 10:00 Oxygen Flow Rate (L/min) 5 Oxygen Delivery Method Room Air Weight: 231 lb 0.711 oz Body Mass Index (BMI) 29.6 Finger Stick Blood Glucose 250 Intake and Output for Last 24 Hours 04/16/18 04/17/18 04/18/18 23:59 23:59 23:59 Intake Total 1386 / 1386 138.3 / 138.3 Output Total 975 / 975 1650 / 1650 Balance 411 / 411 -1511.7 / -1511.7 Microbiology Past 72 Hours 04/17/18 03:08 Urine Culture - Preliminary Urine Catheter - Catheter GNR lactose supervisor cabinetmaker Gram negative rebecca Laboratory Tests Past 24 Hrs 04/18/18 04/18/18 04/18/18 06:15 06:15 06:15 WBC 6.5 RBC 3.47 L Hgb 10.1 L Hct 33.2 L MCV 95.7 H MCH 29.1 MCHC 30.4 L RDW 16.1 H RDW Differential 54.5 H Plt Count 179 MPV 11.6 Sodium 143 Potassium 3.5 Chloride 108 H Carbon Dioxide 28.0 Anion Gap 7 BUN 12 Creatinine 0.64 L Estim Creat Clear Calc 83.34 Est GFR (MDRD) Af Amer 161 Est GFR (MDRD) Non-Af 133 BUN/Creatinine Ratio 18.9 Glucose 163 H Hemoglobin A1c 8.9 H Calcium 8.6 POC Glucose 04/18/18 04/18/18 04/18/18 12:07 06:51 02:30 POC Glucose 269 H 152 H 154 H 04/17/18 04/17/18 22:21 17:23 POC Glucose 170 H 246 H Medical Necessity - Tobacco Use Smoking Status: Former smoker Assessment/Plan All Active Problems (Last Updated 04/17/18 @ 14:09 by Darnell Felix DO) Complicated CAUTI (Acute) Severe sepsis (Acute) Alcohol intoxication (Resolved) Sepsis (Resolved) Healthcare associated bacteremia due to Staphylococcus aureus (Resolved) Infected decubitus ulcer (Resolved) Infected decubitus ulcer (Resolved) Demand ischemia (Resolved) Acute respiratory failure with hypoxia and hypercarbia (Resolved) Multifocal community-acquired pneumonia (Resolved) Severe sepsis (Resolved) 1. Severe sepsis secondary to catheter associated UTI, present on admission-UA positive on admission. Urine culture GNR lactose supervisor cabinetmaker/gram negative rebecca. Blood cultures pending. Chest x-ray without acute process on admission. White count improved. Afebrile overnight. Tylenol as needed for fever. Continue IV Rocephin. Patient has chronic Lane due to neurogenic bladder. Catheter changed 04/17/18. Lactic acidosis resolved. 2. Chronic sacral decubitus ulcer stage IV-status post diverting colostomy and PEG tube January 2018. Wound does not appear infected. Culture sent regardless given severe sepsis on admission. Wound RN consult. Frequent position changes. Sacral cultures positive for MDR serratia marcescens, VRE, MSSA, e.coli. Osteomyelitis suspected during prior admission which was ruled out. Patient underwent excision of sacral pressure sore 01/22/[address] Juarez. Wound vac was place after that time and patient completed extensive course of antibiotics which were completed 03/05/18. ID involved with patient in the past. Consider ID consult if wound cx significant. 3. History of CVA with residual right-sided hemiplegia, history of traumatic brain injury and intracranial bleed following mechanical fall on anticoagulatio n- Currently residing in SNF. PT/OT/ST. S/P peg tube. PEG tube used infrequently. Tolerating regular diet. Continue statin. 4. Type 2 diabetes [id number] before meals at bedtime with sliding scale insulin. Continue home long-acting and lispro regimen. Increase SSI to med-high dosing. 5. CAD status post CABG X3 and stents- Follows with Dr. Roche. 6. Ischemic cardiomyopathy-echo March 2017 with EF 45%. 7. Hypertension- stable, continue home metoprolol regimen. 8. Hyperlipidemia-continue statin. 9. JIM- continue CPAP. 10. Chronic COPD- no acute exacerbation. Albuterol aerosol as needed. 11. BPH- Continue home flomax regimen. Lane in place due to neurogenic bladder. 12. GERD- continue PPI. 13. Anemia of chronic disease/iron deficiency anemia-continue iron supp lementation. Stable. CODE STATUS: DNR CCA DVT prophylaxis-SCDs. Pharmacologic prophylaxis contraindicated due to history of intracranial bleed. This patient was seen by SB Penny under the supervision of Dr. Felix. <Darnell Felix - Last Filed: 04/18/18 13:15> Subjective: Feeling well, no rigors. - Physical Exam General: Alert, Cooperative HEENT: Atraumatic, Normocephalic Oral: Moist Mucosa, No Gingival or Mucosal Lesions/ Ulcerations Lungs: Clear to auscultation, Normal air movement, No rhonchi, No wheeze Cardiovascular: Regular rate, Regular Rhythm, Normal S1, Normal S2, No murmurs Abdomen: Bowel Sounds Present, Soft, Non Tender, Non-Distended, - Extremities: No edema, No Calf Tenderness Skin: - Neurological: - Psych/Mental Status: Normal Affect, Appropriate Vital Signs Temp Pulse Resp BP Pulse Ox 36.9 C 99 20 H 108/59 L 96 04/18/18 10:00 04/18/18 12:59 04/18/18 10:00 04/18/18 10:00 04/18/18 10:00 Oxygen Flow Rate (L/min) 5 Oxygen Delivery Method Room Air Weight: 104.8 kg Body Mass Index (BMI) 29.6 Finger Stick Blood Glucose 250 Intake and Output for Last 24 Hours 04/16/18 04/17/18 04/18/18 23:59 23:59 23:59 Intake Total 1386 / 1386 1305.8 / 1305.8 Output Total 975 / 975 2049 / 2049 Balance 411 / 411 -744.2 / -744.2 Microbiology Past 72 Hours 04/17/18 03:08 Urine Culture - Preliminary Urine Catheter - Catheter GNR lactose supervisor cabinetmaker Gram negative rebecca Laboratory Tests Past 24 Hrs 04/18/18 04/18/18 04/18/18 06:15 06:15 06:15 WBC 6.5 RBC 3.47 L Hgb 10.1 L Hct 33.2 L MCV 95.7 H MCH 29.1 MCHC 30.4 L RDW 16.1 H RDW Differential 54.5 H Plt Count 179 MPV 11.6 Sodium 143 Potassium 3.5 Chloride 108 H Carbon Dioxide 28.0 Anion Gap 7 BUN 12 Creatinine 0.64 L Estim Creat Clear Calc 83.34 Est GFR (MDRD) Af Amer 161 Est GFR (MDRD) Non-Af 133 BUN/Creatinine Ratio 18.9 Glucose 163 H Hemoglobin A1c 8.9 H Calcium 8.6 POC Glucose 04/18/18 04/18/18 04/18/18 12:07 06:51 02:30 POC Glucose 269 H 152 H 154 H 04/17/18 04/17/18 22:21 17:23 POC Glucose 170 H 246 H Assessment/Plan Patient seen and examined independently. Data reviewed. I agree with the above note by the nurse practitioner. 1. Severe sepsis * resolved * Present on arrival * Secondary to UTI 2. Catheter associated UTI * Continue with Rocephin * Follow-up urine culture * Lane changed 04/17 3. Dysphagia * Chronic * PEG tube is infrequently being used, only for certain medications that the patient may not like the taste of. But essentially patient is taking everything by mouth now * Patient to follow-up with his PCP. Would recommend patient follow-up with a pie dough roller or general surgeon who placed the PEG tube 4. Sacral decubitus ulcers * Chronic * Wound care Discussed with the patient's at bedside. Code Visit Inpatient E&M: 39215 Subs Hosp L2
[2018-04-18 16:35] LABS: Bedside Glucose 279 mg/dL (70-110)
[2018-04-18] MEDS: Ammonium Lactate 225 gm Bottle 1 APPLIC TOPICAL (21:20)
[2018-04-18] MEDS: Pramipexole Di-HCl 0.25 MG Tablet PO (21:20)
[2018-04-18] MEDS: 0.9% NaCl Peripheral Flush Adult/Peds IV (21:38)
[2018-04-18] MEDS: oxyCODONE 5 MG Tablet PO (21:38)
[2018-04-18 22:46] LABS: Bedside Glucose 321 mg/dL (70-110)
--- NOTE | 2018-04-18 23:45 | CPS ---
Pt wears pap hs at home. Family brought machine in. This PULMONARY SPECIALIST set up pt home unit. No further needs at this time. Pt will call nursing when he is ready to place mask on.
[2018-04-19] VITALS (16 sets, daily range): BP systolic 116–153; BP diastolic 57–94; PULSE 66–117; RESP 16–18; TEMP 36.6–37.2; O2SAT 94–98
[2018-04-19 05:49] LABS: Hematocrit 33.6 % (40-54); Hemoglobin 10.6 g/dl (13.0-16.5); Mean Corp Hgb Conc 31.5 g/gl (32-36); Mean Corpuscular Hgb 29.4 pg (27.0-32.0); Mean Corpuscular Volume 93.3 fL (80-94); Mean Platelet Vol. 11.9 fl (6.2-12.0); Platelet Count 194 K/mm3 (150-450); RBC Distribution Width CV 15.5 % (11.6-14.6); RBC Distribution Width SD 50.4 fl (35.1-43.9); White Blood Count 6.2 K/mm3 (4.4-11.0)
[2018-04-19 06:01] LABS: Anion Gap 10 (5-15); BUN 13 mg/dL (7-18); BUN/Creat Ratio 21.7 RATIO (10-20); Calcium,Total 8.6 mg/dL (8.5-10.1); Chloride 104 mmol/L (98-107); EST Glomerular Filtration Rate 143 mL/min (>60); Est Glom Filt Rate - Afr Amer 173 mL/min (>60); Estimated Creatinine Clearance 83.34 ml/min; Glucose 176 mg/dL (74-106); Potassium 3.3 mmol/L (3.5-5.1); Sodium Level 140 mmol/L (136-145)
[2018-04-19 06:05] LABS: Scan Indicated on CBC? Y/N NO
[2018-04-19] MEDS: Metoprolol Tartrate 100 MG Tablet PO ×3 (06:11→23:30)
[2018-04-19 06:51] LABS: Bedside Glucose 197 mg/dL (70-110)
[2018-04-19] MEDS: Senna/Docusate Sodium 1 Tablet 2 TABLET PO ×2 (08:40→23:30)
[2018-04-19] MEDS: Magnesium Oxide 400 MG Tablet PO ×3 (08:40→16:56)
[2018-04-19] MEDS: Tamsulosin HCl 0.4 MG Capsule PO (08:40)
[2018-04-19] MEDS: Pantoprazole Sodium 40 MG Tablet PO (08:40)
[2018-04-19] MEDS: Amantadine 100 MG Capsule PO (08:40)
[2018-04-19] MEDS: Famotidine 20 MG Tablet PO ×2 (08:40→23:30)
[2018-04-19] MEDS: Polyethylene Glycol 3350 17 GM PACKET GT (08:41)
[2018-04-19] MEDS: Insulin Lispro 100 UNIT/ML INSULN.PEN 12 UNIT SC ×3 (08:42→16:55)
[2018-04-19] MEDS: Insulin Lispro 100 UNIT/ML INSULN.PEN SC ×4 (08:42→23:34)
[2018-04-19] MEDS: Iron Polysaccharide Complex 150 MG CAPSULE PO (08:42)
[2018-04-19] MEDS: Glucerna Shake 120 ML LIQUID PO ×4 (08:43→23:31)
--- NOTE | 2018-04-19 10:26 | CASEMGMT ---
Physician feels like patient could be d/c back to [facility] today. CONTRERAS called Lizzette at [facility] and let her know. CONTRERAS also asked Lula in Case Management office to please fax clinicals to [facility]. Nydia MADDEN MSW
--- NOTE | 2018-04-19 10:35 | CASEMGMT ---
Per CONTRERAS Stafford, updated clinical info needs sent to [facility]. Faxed med list, H&P, 04/18/18 progress note, PT and OT documentation to [facility]. Fax confirmation rec'd. Llua Odonnell LPN Clinical Support
[2018-04-19] MEDS: Ceftriaxone 1 GM/50 ML BAG IV ×2 (11:06→23:31)
[2018-04-19] MEDS: Acetaminophen 325 MG Tablet 650 MG PO (11:08)
[2018-04-19 11:56] LABS: Bedside Glucose 273 mg/dL (70-110)
--- NOTE | 2018-04-19 13:03 | PCM.PROGNOTE ---
Patient Problems: Active and Suspected Problems (Last Updated 04/17/18 @ 14:09 by Darnell Felix DO) Complicated CAUTI (Acute) Severe sepsis (Acute) Subjective: Patient seen and examined. Continues to feel improved. Denies fever, chills. No current complaints. - Physical Exam General: Alert, Oriented x3, Cooperative HEENT: Atraumatic, PERRLA, EOMI, Normocephalic Oral: Moist Mucosa Neck: Supple, No JVD, Negative Carotid Bruits Lungs: Clear to auscultation, Diminished Cardiovascular: Regular rate, Regular Rhythm, Normal S1, Normal S2, No murmurs Abdomen: Bowel Sounds Present, Soft, Non Tender, Non-Distended, - - PEG tube intact Extremities: No clubbing, No cyanosis, No edema, Capillary Refill Less than 3 Seconds Skin: No rashes, No breakdown, - - Chronic sacral decubitus ulcer stage IV, present on admission. 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 Psych/Mental Status: Normal Affect, Appropriate Vital Signs Temp Pulse Resp BP Pulse Ox 98.5 F 79 18 116/66 94 04/19/18 08:52 04/19/18 11:45 04/19/18 08:52 04/19/18 08:52 04/19/18 08:52 Oxygen Flow Rate (L/min) 5 Oxygen Delivery Method Room Air Weight: 231 lb 0.711 oz Body Mass Index (BMI) 29.6 Finger Stick Blood Glucose 250 Intake and Output for Last 24 Hours 04/17/18 04/18/18 04/19/18 23:59 23:59 23:59 Intake Total 1386 / 1386 2555.8 / 2555.8 1008 / 1008 Output Total 975 / 975 2950 / 2950 1950 / 1950 Balance 411 / 411 -394.2 / -394.2 -942 / -942 Microbiology Past 72 Hours 04/18/18 14:40 Gram Stain - Final Ulcer, Decubitus - Open/Non-Healing Wound Wound Culture - Preliminary Gram positive organism 04/17/18 03:08 Urine Culture - Preliminary Urine Catheter - Catheter GNR lactose customer service representative teacher Gram negative rebecca Laboratory Tests Past 24 Hrs 04/19/18 04/19/18 05:05 05:05 WBC 6.2 RBC 3.60 L Hgb 10.6 L Hct 33.6 L MCV 93.3 MCH 29.4 MCHC 31.5 L RDW 15.5 H RDW Differential 50.4 H Plt Count 194 MPV 11.9 Sodium 140 Potassium 3.3 L Chloride 104 Carbon Dioxide 26.0 Anion Gap 10 BUN 13 Creatinine 0.60 L Estim Creat Clear Calc 83.34 Est GFR (MDRD) Af Amer 173 Est GFR (MDRD) Non-Af 143 BUN/Creatinine Ratio 21.7 H Glucose 176 H Calcium 8.6 POC Glucose 04/19/18 04/19/18 04/18/18 11:05 06:44 21:24 POC Glucose 273 H 197 H 321 H 04/18/18 16:19 POC Glucose 279 H Medical Necessity - Tobacco Use Smoking Status: Former smoker Assessment/Plan All Active Problems (Last Updated 04/17/18 @ 14:09 by Darnell Felix DO) Complicated CAUTI (Acute) Severe sepsis (Acute) Alcohol intoxication (Resolved) Sepsis (Resolved) Healthcare associated bacteremia due to Staphylococcus aureus (Resolved) Infected decubitus ulcer (Resolved) Infected decubitus ulcer (Resolved) Demand ischemia (Resolved) Acute respiratory failure with hypoxia and hypercarbia (Resolved) Multifocal community-acquired pneumonia (Resolved) Severe sepsis (Resolved) 1. Severe sepsis secondary to catheter associated UTI, present on admission-UA positive on admission. Urine culture GNR lactose customer service representative teacher/gram negative rebecca. Blood cultures pending. Chest x-ray without acute process on admission. Leukocytosis resolved. Afebrile for greater than 24 hours. Continue IV Rocephin. Patient has chronic Lane due to neurogenic bladder. Catheter changed 04/17/18. Lactic acidosis resolved. ID consult pending. 2. Chronic sacral decubitus ulcer stage IV-status post diverting colostomy and PEG tube January 2018. Wound does not appear infected. Culture showing gram-positive organism. Possible colonization? Wound RN consult. Frequent position changes. Prior sacral cultures positive for MDR serratia marcescens, VRE, MSSA, e.coli. Osteomyelitis suspected during prior admission which was ruled out. Patient underwent excision of sacral pressure sore 01/22/[address] Juarez. Wound vac was place after that time and patient completed extensive course of antibiotics which were completed 03/05/18. ID consult pending. 3. History of CVA with residual right-sided hemiplegia, history of traumatic brain injury and intracranial bleed following mechanical fall on anticoagulation- Currently residing in SNF. PT/OT/ST. S/P peg tube. PEG tube used infrequently. Tolerating regular diet. Continue statin. 4. Type 2 diabetes [id number] before meals at bedtime with sliding scale insulin. Sliding scale increased. Glucose remains elevated. Increase Lantus regimen to 25 units twice daily. 5. CAD status post CABG X3 and stents- Follows with Dr. Roche. 6. Ischemic cardiomyopathy-echo March 2017 with EF 45%. 7. Hypertension- stable, continue home metoprolol regimen. 8. Hyperlipidemia-continue statin. 9. JIM- continue CPAP. 10. Chronic COPD- no acute exacerbation. Albuterol aerosol as needed. 11. BPH- Continue home flomax regimen. Lane in place due to neurogenic bladder. 12. GERD- continue PPI. 13. Anemia of chronic disease/iron deficiency anemia-continue iron supplementation. Stable. CODE STATUS: DNR CCA DVT prophylaxis-SCDs. Pharmacologic prophylaxis contraindicated due to history of intracranial bleed. This patient was seen by BS Penny under the supervision of Dr. Solo.
--- NOTE | 2018-04-19 13:12 | PN_ITS ---
Patient Problems: Active and Suspected Problems (Last Updated 04/17/18 @ 14:09 by Darnell Felix DO) Complicated CAUTI (Acute) Severe sepsis (Acute) Subjective: Patient seen and examined. Continues to feel improved. Denies fever, chills. No current complaints. - Physical Exam General: Alert, Oriented x3, Cooperative HEENT: Atraumatic, PERRLA, EOMI, Normocephalic Oral: Moist Mucosa Neck: Supple, No JVD, Negative Carotid Bruits Lungs: Clear to auscultation, Diminished Cardiovascular: Regular rate, Regular Rhythm, Normal S1, Normal S2, No murmurs Abdomen: Bowel Sounds Present, Soft, Non Tender, Non-Distended, - - PEG tube intact Extremities: No clubbing, No cyanosis, No edema, Capillary Refill Less than 3 Seconds Skin: No rashes, No breakdown, - - Chronic sacral decubitus ulcer stage IV, present on admission. 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 Psych/Mental Status: Normal Affect, Appropriate Vital Signs Temp Pulse Resp BP Pulse Ox 98.5 F 79 18 116/66 94 04/19/18 08:52 04/19/18 11:45 04/19/18 08:52 04/19/18 08:52 04/19/18 08:52 Oxygen Flow Rate (L/min) 5 Oxygen Delivery Method Room Air Weight: 231 lb 0.711 oz Body Mass Index (BMI) 29.6 Finger Stick Blood Glucose 250 Intake and Output for Last 24 Hours 04/17/18 04/18/18 04/19/18 23:59 23:59 23:59 Intake Total 1386 / 1386 2555.8 / 2555.8 1008 / 1008 Output Total 975 / 975 2950 / 2950 1950 / 1950 Balance 411 / 411 -394.2 / -394.2 -942 / -942 Microbiology Past 72 Hours 04/18/18 14:40 Gram Stain - Final Ulcer, Decubitus - Open/Non-Healing Wound Wound Culture - Preliminary Gram positive organism 04/17/18 03:08 Urine Culture - Preliminary Urine Catheter - Catheter GNR lactose tax attorney Gram negative rebecca Laboratory Tests Past 24 Hrs 04/19/18 04/19/18 05:05 05:05 WBC 6.2 RBC 3.60 L Hgb 10.6 L Hct 33.6 L MCV 93.3 MCH 29.4 MCHC 31.5 L RDW 15.5 H RDW Differential 50.4 H Plt Count 194 MPV 11.9 Sodium 140 Potassium 3.3 L Chloride 104 Carbon Dioxide 26.0 Anion Gap 10 BUN 13 Creatinine 0.60 L Estim Creat Clear Calc 83.34 Est GFR (MDRD) Af Amer 173 Est GFR (MDRD) Non-Af 143 BUN/Creatinine Ratio 21.7 H Glucose 176 H Calcium 8.6 POC Glucose 04/19/18 04/19/18 04/18/18 11:05 06:44 21:24 POC Glucose 273 H 197 H 321 H 04/18/18 16:19 POC Glucose 279 H Medical Necessity - Tobacco Use Smoking Status: Former smoker Assessment/Plan All Active Problems (Last Updated 04/17/18 @ 14:09 by Darnell Felix DO) Complicated CAUTI (Acute) Severe sepsis (Acute) Alcohol intoxication (Resolved) Sepsis (Resolved) Healthcare associated bacteremia due to Staphylococcus aureus (Resolved) Infected decubitus ulcer (Resolved) Infected decubitus ulcer (Resolved) Demand ischemia (Resolved) Acute respiratory failure with hypoxia and hypercarbia (Resolved) Multifocal community-acquired pneumonia (Resolved) Severe sepsis (Resolved) 1. Severe sepsis secondary to catheter associated UTI, present on admission-UA positive on admission. Urine culture GNR lactose tax attorney/gram negative rebecca. Blood cultures pending. Chest x-ray without acute process on admission. Leukocy tosis resolved. Afebrile for greater than 24 hours. Continue IV Rocephin. Patient has chronic Lane due to neurogenic bladder. Catheter changed 04/17/18. Lactic acidosis resolved. ID consult pending. 2. Chronic sacral decubitus ulcer stage IV-status post diverting colostomy and PEG tube January 2018. Wound does not appear infected. Culture showing gram- positive organism. Possible colonization? Wound RN consult. Frequent position changes. Prior sacral cultures positive for MDR serratia marcescens, VRE, MSSA, e.coli. Osteomyelitis suspected during prior admission which was ruled out. Patient underwent excision of sacral pressure sore 01/22/[address] Juarez. Wound vac was place after that time and patient completed extensive course of antibiotics which were completed 03/05/18. ID consult pending. 3. History of CVA with residual right-sided hemiplegia, history of traumatic brain injury and intracranial bleed following mechanical fall on anticoagulation- Currently residing in SNF. PT/OT/ST. S/P peg tube. PEG tube used infrequently. Tolerating regular diet. Continue statin. 4. Type 2 diabetes [id number] before meals at bedtime with sliding scale insulin. Sliding scale increased. Glucose remains elevated. Increase Lantus regimen to 25 units twice daily. 5. CAD status post CABG X3 and stents- Follows with Dr. Roche. 6. Ischemic cardiomyopathy-echo March 2017 with EF 45%. 7. Hypertension- stable, continue home metoprolol regimen. 8. Hyperlipidemia-continue statin. 9. JIM- continue CPAP. 10. Chronic COPD- no acute exacerbation. Albuterol aerosol as needed. 11. BPH- Continue home flomax regimen. Lane in place due to neurogenic bladder. 12. GERD- continue PPI. 13. Anemia of chronic disease/iron deficiency anemia-continue iron supplement ation. Stable. CODE STATUS: DNR CCA DVT prophylaxis-SCDs. Pharmacologic prophylaxis contraindicated due to history of intracranial bleed. This patient was seen by SB Penny under the supervision of Dr. Solo.
--- NOTE | 2018-04-19 13:40 | PCM.HP.ID ---
Problem List (1) Severe sepsis Status: Acute Reason for Consult: sepsis Consulted by: Dr. Solo History of Present Illness: The patient is a 67 year old M with R sided weakness, h/o sacral osteo, presented to ED from [facility] with acute onset of high fever, weakness, confusion, tachycardia. Fever over 101 here. Denies any focal complaints. Has chronic burks. No abd or flank pain. No cough or SOB. Cxs sent, started on ceftriaxone, feeling better. Full ROS performed and neg except as noted above. 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, stage 4 (Chronic) Fall (Chronic) Traumatic brain injury (Chronic) Intraparenchymal hemorrhage of brain (Chronic) Subarachnoid hemorrhage (Chronic) Subdural hematoma (Chronic) Intraventricular hemorrhage (Chronic) Right scapula fracture (Chronic) Tobacco abuse (Chronic) Dysphagia (Chronic) Insomnia (Chronic) Vitamin D deficiency (Chronic) Depression (Chronic) GERD (gastroesophageal reflux disease) (Chronic) BPH (benign prostatic hyperplasia) (Chronic) Right hemiplegia (Chronic) Congestive heart failure (Chronic) Alcohol abuse (Chronic) Sleep apnea (Chronic) Diabetes mellitus (Chronic) Encounter for long-term current use of high risk medication (Chronic) Obstructive sleep apnea (Chronic) 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) S/P CABG x3 with right radial to LAD, SVG to RCA, and SVG to OM 2; stenting to LAD in February 2017; Presence of coronary angioplasty implant and graft (Chronic) Presence of aortocoronary bypass graft (Chronic) CABG X 3 2001 ?, Radial artery -LAD, SVG-RCA, SVG-OM2 Non-ST elevation myocardial infarction (NSTEMI), initial care episode (Chronic) 02/16/17 Ischemic cardiomyopathy (Chronic) Restless leg syndrome (Chronic) Hyperlipidemia (Chronic) Hypertensive emergency (Chronic) COPD (chronic obstructive pulmonary disease) (Chronic) Hypertension (Chronic) Morbid obesity (Chronic) Systolic CHF, acute (Chronic) CAD (coronary artery disease) (Chronic) Stented coronary artery (Chronic) [facility] w/[id number] LAD (grafts occluded X 3) 02/20/17 Former smoker (Chronic) quit February 2017 Diabetes mellitus type 2 in obese (Chronic) Hx of CABG (Chronic) CABG X3 rADIAL ARTERY-lad, svg-rca, svg-om2. MULTIPLE CORONARY STENTS Allergies/Adverse Reactions: Allergies atorvastatin Allergy (Verified 04/17/18 03:12) Hives cilostazol Allergy (Verified 04/17/18 03:12) Hives colestipol Allergy (Verified 04/17/18 03:12) Hives diltiazem Allergy (Verified 04/17/18 03:12) Hives gemfibrozil Allergy (Verified 04/17/18 03:12) Hives naproxen [From Naprosyn] Allergy (Verified 04/17/18 03:12) Hives niacin Allergy (Verified 04/17/18 03:12) Hives Penicillins Allergy (Verified 04/17/18 03:12) Hives pravastatin Allergy (Verified 04/17/18 03:12) Hives procaine [From Novocain] Allergy (Verified 04/17/18 03:12) Hives rosuvastatin Allergy (Verified 04/17/18 03:12) Hives simvastatin Allergy (Verified 04/17/18 03:12) Hives isosorbide Adverse Reaction (Severe, Verified 04/17/18 03:12) Unknown Home Medications: Ambulatory Orders Medication Instructions Recorded Amantadine [Symmetrel] 100 mg PO DAILY 04/17/18 Ammonium Lactate [Amlactin] 3 gm TP QHS 04/17/18 Argin/Glut/Cahmb/Collag/Mv-Min 1 each PO BID 04/17/18 [[place] Packet] Ascorbic Acid [Vitamin C] 1,000 mg PO DAILY 04/17/18 Budesonide [Pulmicort] 0.5 mg IH BID 04/17/18 Fluticasone 0.05% [Flonase Nasal 2 spray NASAL DAILY 04/17/18 [place]] Furosemide [Lasix] 40 mg PO BIDLX 04/17/18 Insulin Aspart [Novolog Flexpen units SC TIDCM 04/17/18 ([facility])] Insulin Glargine,Hum.rec.anlog 20 unit SC BID 04/17/18 [Lantus] Insulin Lispro [Humalog] 12 unit SC TIDCM 04/17/18 Iron Polysaccharide Complex 150 mg PO DAILYCM 04/17/18 [Ferrex 150] L. Rhamnosus GG/Inulin [Culturelle 1 each PO BID 04/17/18 Capsule] Magnesium Oxide [Mag-Ox 400] 400 mg PO TID 04/17/18 Metoprolol Tartrate [Lopressor 100 mg PO TID 04/17/18 (Beta [place])] Mineral Oil/Petrolatum,White 1 applic TOPICAL DAILY PRN PRN 04/17/18 [Eucerin] Pantoprazole Sodium [Protonix] 40 mg PO DAILY 04/17/18 Polyethylene Glycol 3350 [Miralax] 17 gm PO DAILY 04/17/18 Pramipexole Di-HCl [Mirapex] 0.25 mg PO QHS 04/17/18 Pravastatin Sodium 80 mg PO QHS 04/17/18 Senna/Docusate Sodium [Senokot-S, 2 tablet PO BID 04/17/18 Page-Colace] Tamsulosin HCl [Flomax] 0.4 mg PO DAILY 04/17/18 - Social History SMOKING STATUS:: Former smoker Vital Signs Temp Pulse Resp BP Pulse Ox 98.5 F 79 18 116/66 94 04/19/18 08:52 04/19/18 11:45 04/19/18 08:52 04/19/18 08:52 04/19/18 08:52 Oxygen Flow Rate (L/min) 5 Oxygen Delivery Method Room Air Weight: 104.8 kg Body Mass Index (BMI) 29.6 Finger Stick Blood Glucose 250 Microbiology Past 72 Hours 04/18/18 14:40 Gram Stain - Final Ulcer, Decubitus - Open/Non-Healing Wound Wound Culture - Preliminary Gram positive organism 04/17/18 03:08 Urine Culture - Preliminary Urine Catheter - Catheter GNR lactose analytical manager Gram negative rebecca Laboratory Tests Past 24 Hrs 04/19/18 04/19/18 05:05 05:05 WBC 6.2 RBC 3.60 L Hgb 10.6 L Hct 33.6 L MCV 93.3 MCH 29.4 MCHC 31.5 L RDW 15.5 H RDW Differential 50.4 H Plt Count 194 MPV 11.9 Sodium 140 Potassium 3.3 L Chloride 104 Carbon Dioxide 26.0 Anion Gap 10 BUN 13 Creatinine 0.60 L Estim Creat Clear Calc 83.34 Est GFR (MDRD) Af Amer 173 Est GFR (MDRD) Non-Af 143 BUN/Creatinine Ratio 21.7 H Glucose 176 H Calcium 8.6 - Other Studies Radiology: [] reviewed Other Studies: [] Route of nutrition/ use of supplements: [] Nutritional Intake: [] IV Site: [] Burks Catheter: [] - Physical Exam General: Alert, Cooperative, No apparent distress HEENT: Atraumatic, PERRLA, EOMI Neck: Supple, No Nodes Lungs: Clear to auscultation, Normal air movement Cardiovascular: Regular rate, Regular Rhythm Abdomen: Soft, Non Tender, Non-Distended Extremities: Edema Skin: Ulcer/ Wound - bandaged IV Site: Peripheral, without redness Musculoskeletal: No Tenderness to Palpation of Joints or Extremities Neurological: Cranial nerves II-XII grossly intact - Assessment/Plan Antibiotics: [] Assessment/Plan: [] Active and Suspected Problems (Last Updated 04/17/18 @ 14:09 by Darnell Felix DO) Complicated CAUTI (Acute) Severe sepsis (Acute) Lactate improved, fever resolved, tachycardia improved. Ucx with GNR x2, continue ceftriaxone. Sacral wound appears to be doing well. Will follow, thank you.
--- NOTE | 2018-04-19 13:44 | CON.PCM_ITS ---
Problem List (1) Severe sepsis Status: Acute Reason for Consult: sepsis Consulted by: Dr. Solo History of Present Illness: The patient is a 67 year old M with R sided weakness, h/o sacral osteo, presented to ED from [facility] with acute onset of high fever, weakness, confusion, tachycardia. Fever over 101 here. Denies any focal complaints. Has chronic burks. No abd or flank pain. No cough or SOB. Cxs sent, started on ceftriaxone, feeling better. Full ROS performed and neg except as noted above. 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, stage 4 (Chronic) Fall (Chronic) Traumatic brain injury (Chronic) Intraparenchymal hemorrhage of brain (Chronic) Subarachnoid hemorrhage (Chronic) Subdural hematoma (Chronic) Intraventricular hemorrhage (Chronic) Right scapula fracture (Chronic) Tobacco abuse (Chronic) Dysphagia (Chronic) Insomnia (Chronic) Vitamin D deficiency (Chronic) Depression (Chronic) GERD (gastroesophageal reflux disease) (Chronic) BPH (benign prostatic hyperplasia) (Chronic) Right hemiplegia (Chronic) Congestive heart failure (Chronic) Alcohol abuse (Chronic) Sleep apnea (Chronic) Diabetes mellitus (Chronic) Encounter for long-term current use of high risk medication (Chronic) Obstructive sleep apnea (Chronic) 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) S/P CABG x3 with right radial to LAD, SVG to RCA, and SVG to OM 2; stenting to LAD in February 2017; Presence of coronary angioplasty implant and graft (Chronic) Presence of aortocoronary bypass graft (Chronic) CABG X 3 2001 ?, Radial artery -LAD, SVG-RCA, SVG-OM2 Non-ST elevation myocardial infarction (NSTEMI), initial care episode (Chronic) 02/16/17 Ischemic cardiomyopathy (Chronic) Restless leg syndrome (Chronic) Hyperlipidemia (Chronic) Hypertensive emergency (Chronic) COPD (chronic obstructive pulmonary disease) (Chronic) Hypertension (Chronic) Morbid obesity (Chronic) Systolic CHF, acute (Chronic) CAD (coronary artery disease) (Chronic) Stented coronary artery (Chronic) [facility] w/[id number] LAD (grafts occluded X 3) 02/20/17 Former smoker (Chronic) quit February 2017 Diabetes mellitus type 2 in obese (Chronic) Hx of CABG (Chronic) CABG X3 rADIAL ARTERY-lad, svg-rca, svg-om2. MULTIPLE CORONARY STENTS Allergies/Adverse Reactions: Allergies atorvastatin Allergy (Verified 04/17/18 03:12) Hives cilostazol Allergy (Verified 04/17/18 03:12) Hives colestipol Allergy (Verified 04/17/18 03:12) Hives diltiazem Allergy (Verified 04/17/18 03:12) Hives gemfibrozil Allergy (Verified 04/17/18 03:12) Hives naproxen [From Naprosyn] Allergy (Verified 04/17/18 03:12) Hives niacin Allergy (Verified 04/17/18 03:12) Hives Penicillins Allergy (Verified 04/17/18 03:12) Hives pravastatin Allergy (Verified 04/17/18 03:12) Hives procaine [From Novocain] Allergy (Verified 04/17/18 03:12) Hives rosuvastatin Allergy (Verified 04/17/18 03:12) Hives simvastatin Allergy (Verified 04/17/18 03:12) Hives isosorbide Adverse Reaction (Severe, Verified 04/17/18 03:12) Unknown Home Medications: Ambulatory Orders Medication Instructions Recorded Amantadine [Symmetrel] 100 mg PO DAILY 04/17/18 Ammonium Lactate [Amlactin] 3 gm TP QHS 04/17/18 Argin/Glut/Cahmb/Collag/Mv-Min 1 each PO BID 04/17/18 [[place] Packet] Ascorbic Acid [Vitamin C] 1,000 mg PO DAILY 04/17/18 Budesonide [Pulmicort] 0.5 mg IH BID 04/17/18 Fluticasone 0.05% [Flonase Nasal 2 spray NASAL DAILY 04/17/18 [place]] Furosemide [Lasix] 40 mg PO BIDLX 04/17/18 Insulin Aspart [Novolog Flexpen units SC TIDCM 04/17/18 ([facility])] Insulin Glargine,Hum.rec.anlog 20 unit SC BID 04/17/18 [Lantus] Insulin Lispro [Humalog] 12 unit SC TIDCM 04/17/18 Iron Polysaccharide Complex 150 mg PO DAILYCM 04/17/18 [Ferrex 150] L. Rhamnosus GG/Inulin [Culturelle 1 each PO BID 04/17/18 Capsule] Magnesium Oxide [Mag-Ox 400] 400 mg PO TID 04/17/18 Metoprolol Tartrate [Lopressor 100 mg PO TID 04/17/18 (Beta [place])] Mineral Oil/Petrolatum,White 1 applic TOPICAL DAILY PRN PRN 04/17/18 [Eucerin] Pantoprazole Sodium [Protonix] 40 mg PO DAILY 04/17/18 Polyethylene Glycol 3350 [Miralax] 17 gm PO DAILY 04/17/18 Pramipexole Di-HCl [Mirapex] 0.25 mg PO QHS 04/17/18 Pravastatin Sodium 80 mg PO QHS 04/17/18 Senna/Docusate Sodium [Senokot-S, 2 tablet PO BID 04/17/18 [place]-Colace] Tamsulosin HCl [Flomax] 0.4 mg PO DAILY 04/17/18 - Social History SMOKING STATUS:: Former smoker Vital Signs Temp Pulse Resp BP Pulse Ox 98.5 F 79 18 116/66 94 04/19/18 08:52 04/19/18 11:45 04/19/18 08:52 04/19/18 08:52 04/19/18 08:52 Oxygen Flow Rate (L/min) 5 Oxygen Delivery Method Room Air Weight: 104.8 kg Body Mass Index (BMI) 29.6 Finger Stick Blood Glucose 250 Microbiology Past 72 Hours 04/18/18 14:40 Gram Stain - Final Ulcer, Decubitus - Open/Non-Healing Wound Wound Culture - Preliminary Gram positive organism 04/17/18 03:08 Urine Culture - Preliminary Urine Catheter - Catheter GNR lactose ux interaction designer Gram negative rebecca Laboratory Tests Past 24 Hrs 04/19/18 04/19/18 05:05 05:05 WBC 6.2 RBC 3.60 L Hgb 10.6 L Hct 33.6 L MCV 93.3 MCH 29.4 MCHC 31.5 L RDW 15.5 H RDW Differential 50.4 H Plt Count 194 MPV 11.9 Sodium 140 Potassium 3.3 L Chloride 104 Carbon Dioxide 26.0 Anion Gap 10 BUN 13 Creatinine 0.60 L Estim Creat Clear Calc 83.34 Est GFR (MDRD) Af Amer 173 Est GFR (MDRD) Non-Af 143 BUN/Creatinine Ratio 21.7 H Glucose 176 H Calcium 8.6 - Other Studies Radiology: [] reviewed Other Studies: [] Route of nutrition/ use of supplements: [] Nutritional Intake: [] IV Site: [] Bukrs Catheter: [] - Physical Exam General: Alert, Cooperative, No apparent distress HEENT: Atraumatic, PERRLA, EOMI Neck: Supple, No Nodes Lungs: Clear to auscultation, Normal air movement Cardiovascular: Regular rate, Regular Rhythm Abdomen: Soft, Non Tender, Non-Distended Extremities: Edema Skin: Ulcer/ Wound - bandaged IV Site: Peripheral, without redness Musculoskeletal: No Tenderness to Palpation of Joints or Extremities Neurological: Cranial nerves II-XII grossly intact - Assessment/Plan Antibiotics: [] Assessment/Plan: [] Active and Suspected Problems (Last Updated 04/17/18 @ 14:09 by Darnell Felix DO) Complicated CAUTI (Acute) Severe sepsis (Acute) Lactate improved, fever resolved, tachycardia improved. Ucx with GNR x2, continue ceftriaxone. Sacral wound appears to be doing well. Will follow, thank you.
--- NOTE | 2018-04-19 16:02 | NURSING ---
wound photo: sacrum
--- NOTE | 2018-04-19 16:28 | CASEMGMT ---
CONTRERAS called [facility] and let Lizzette know that patient will not be d/c today. Nydia MADDEN MSW
[2018-04-19 17:10] LABS: Bedside Glucose 223 mg/dL (70-110)
[2018-04-19] MEDS: Pramipexole Di-HCl 0.25 MG Tablet PO (23:30)
[2018-04-19] MEDS: Ammonium Lactate 225 gm Bottle 1 APPLIC TOPICAL (23:36)
[2018-04-19 23:51] LABS: Bedside Glucose 163 mg/dL (70-110)
[2018-04-20 03:00] VITALS: PULSE 91
[2018-04-20 05:35] VITALS: BP 158/81; PULSE 92; RESP 20; TEMP 36.8; O2SAT 94
[2018-04-20 05:45] VITALS: O2SAT 94
[2018-04-20 05:46] VITALS: BP 158/81; PULSE 92
[2018-04-20] MEDS: Metoprolol Tartrate 100 MG Tablet PO (05:46)
[2018-04-20 06:09] LABS: Anion Gap 8 (5-15); BUN 10 mg/dL (7-18); BUN/Creat Ratio 17.9 RATIO (10-20); Calcium,Total 8.9 mg/dL (8.5-10.1); Chloride 108 mmol/L (98-107); Creatinine, Serum 0.56 mg/dL (0.70-1.30); EST Glomerular Filtration Rate 154 mL/min (>60); Est Glom Filt Rate - Afr Amer 187 mL/min (>60); Estimated Creatinine Clearance 83.34 ml/min; Glucose 170 mg/dL (74-106); Potassium 3.6 mmol/L (3.5-5.1); Sodium Level 142 mmol/L (136-145)
[2018-04-20 07:10] LABS: Bedside Glucose 181 mg/dL (70-110)
[2018-04-20 07:48] VITALS: PULSE 84
[2018-04-20] MEDS: Insulin Lispro 100 UNIT/ML INSULN.PEN SC ×2 (08:19→10:50)
[2018-04-20] MEDS: Insulin Lispro 100 UNIT/ML INSULN.PEN 12 UNIT SC ×2 (08:19→10:50)
[2018-04-20] MEDS: Iron Polysaccharide Complex 150 MG CAPSULE PO (08:20)
[2018-04-20] MEDS: Glucerna Shake 120 ML LIQUID PO (08:20)
[2018-04-20] MEDS: Tamsulosin HCl 0.4 MG Capsule PO (08:20)
[2018-04-20] MEDS: Polyethylene Glycol 3350 17 GM PACKET GT (08:20)
[2018-04-20] MEDS: Magnesium Oxide 400 MG Tablet PO ×2 (08:21→10:48)
[2018-04-20] MEDS: Famotidine 20 MG Tablet PO (08:21)
[2018-04-20] MEDS: Pantoprazole Sodium 40 MG Tablet PO (08:21)
[2018-04-20] MEDS: Senna/Docusate Sodium 1 Tablet 2 TABLET PO (08:21)
[2018-04-20] MEDS: Amantadine 100 MG Capsule PO (08:21)
--- NOTE | 2018-04-20 09:44 | CASEMGMT ---
Received call from Laurel at [facility] inquiring whether patient will be discharged today. Per , patient will be discharged at some point today but there's no tentative time and paperwork is not completed yet. Laurel updated via phone of same. Lula Odonnell LPN Clinical Support
[2018-04-20] MEDS: oxyCODONE 5 MG Tablet PO (10:07)
[2018-04-20] MEDS: Ciprofloxacin 500 MG Tablet PO (10:07)
[2018-04-20] MEDS: 0.9% NaCl Peripheral Flush Adult/Peds IV (10:09)
--- NOTE | 2018-04-20 10:25 | PCM.EXTCARCO ---
- Diet 04/17/18 05:58 Diet: Cardiac/Low Cholesterol Food consistency:: Regular Liquid Consistency:: [place] Thick Type of Dietary Supplement:: Ensure Clear - Routine Orders/Code Status Enema Type: Fleetz Enema Frequency: Daily PRN Suppository Type: Dulcolax 10mg Suppository Frequency: Daily PRN Change Lane Catheter: Monthly and as needed. Catheter changed 04/17/18. O2 Liters per Minute: 2-4 O2 Frequency: PRN Keep PO Greater than or Equal to (%): 90 Routine Lab Work: CBC, BMP, - - Q Week Code Status: [facility] - Wound(s) Sacral Wound Wound Type: Pressure Injury Dressing Change: Dakins moistened gauze - Suggestions for Active Care Change Position every (hours): 2 Times a day to sit in chair: 3 - Therapies Physical Therapy: Eval and Treat Occupational Therapy: Eval and Treat Speech Therapy: Eval and Treat - Problem/Diagnosis (1) Complicated CAUTI Status: Acute Current Visit: Yes (2) Severe sepsis Status: Acute Current Visit: Yes (3) BPH (benign prostatic hyperplasia) Status: Chronic Current Visit: No (4) CAD (coronary artery disease) Status: Chronic Current Visit: No (5) COPD (chronic obstructive pulmonary disease) Status: Chronic Current Visit: No (6) Depression Status: Chronic Current Visit: No (7) Diabetes mellitus Status: Chronic Current Visit: No (8) GERD (gastroesophageal reflux disease) Status: Chronic Current Visit: No (9) Hx of CABG Status: Chronic Comment: CABG X3 rADIAL ARTERY-lad, svg-rca, svg-om2. MULTIPLE CORONARY STENTS Current Visit: No (10) Hyperlipidemia Status: Chronic Current Visit: No (11) Hypertension Status: Chronic Current Visit: No (12) Morbid obesity Status: Chronic Current Visit: No (13) Obstructive sleep apnea Status: Chronic Current Visit: No (14) CVA (cerebral vascular accident) Status: Chronic Comment: Residual right-sided hemiplegia Current Visit: No - Allergies/Procedures Done in Hospital Allergies/Adverse Reactions: Allergies atorvastatin Allergy (Verified 04/17/18 03:12) Hives cilostazol Allergy (Verified 04/17/18 03:12) Hives colestipol Allergy (Verified 04/17/18 03:12) Hives diltiazem Allergy (Verified 04/17/18 03:12) Hives gemfibrozil Allergy (Verified 04/17/18 03:12) Hives naproxen [From Naprosyn] Allergy (Verified 04/17/18 03:12) Hives niacin Allergy (Verified 04/17/18 03:12) Hives Penicillins Allergy (Verified 04/17/18 03:12) Hives pravastatin Allergy (Verified 04/17/18 03:12) Hives procaine [From Novocain] Allergy (Verified 04/17/18 03:12) Hives rosuvastatin Allergy (Verified 04/17/18 03:12) Hives simvastatin Allergy (Verified 04/17/18 03:12) Hives isosorbide Adverse Reaction (Severe, Verified 04/17/18 03:12) Unknown Procedures: None - Type of Care/Length of Stay Estimated LOS: More Than 30 Days Type of Care Needed: Skilled Rehab Potential: Fair Prognosis: Fair - Additional Orders/Day of Discharge Additional Orders: CPAP Q HS. H&P will serve as current which was dated: 04/17/18 Day of Discharge: 04/20/18 - Dietary and Speech Recommendations Dietitian Recommendations/Changes: Rec MANUAL WRITER evaluation. Rec CHO controlled, low sodium diet- consistency per MANUAL WRITER. - Follow Up Care Primary Care Physician: Julissa Lamb MD [Primary Care Provider] - Please follow up with your Primary Care Physician in: 1 Week
--- NOTE | 2018-04-20 10:30 | TREXTCA.CO_ITS ---
- Diet 04/17/18 05:58 Diet: Cardiac/Low Cholesterol Food consistency:: Regular Liquid Consistency:: [place] Thick Type of Dietary Supplement:: Ensure Clear - Routine Orders/Code Status Enema Type: Fleetz Enema Frequency: Daily PRN Suppository Type: Dulcolax 10mg Suppository Frequency: Daily PRN Change Lane Catheter: Monthly and as needed. Catheter changed 04/17/18. O2 Liters per Minute: 2-4 O2 Frequency: PRN Keep PO Greater than or Equal to (%): 90 Routine Lab Work: CBC, BMP, - - Q Week Code Status: [facility] - Wound(s) Sacral Wound Wound Type: Pressure Injury Dressing Change: Dakins moistened gauze - Suggestions for Active Care Change Position every (hours): 2 Times a day to sit in chair: 3 - Therapies Physical Therapy: Eval and Treat Occupational Therapy: Eval and Treat Speech Therapy: Eval and Treat - Problem/Diagnosis (1) Complicated CAUTI Status: Acute Current Visit: Yes (2) Severe sepsis Status: Acute Current Visit: Yes (3) BPH (benign prostatic hyperplasia) Status: Chronic Current Visit: No (4) CAD (coronary artery disease) Status: Chronic Current Visit: No (5) COPD (chronic obstructive pulmonary disease) Status: Chronic Current Visit: No (6) Depression Status: Chronic Current Visit: No (7) Diabetes mellitus Status: Chronic Current Visit: No (8) GERD (gastroesophageal reflux disease) Status: Chronic Current Visit: No (9) Hx of CABG Status: Chronic Comment: CABG X3 rADIAL ARTERY-lad, svg-rca, svg-om2. MULTIPLE CORONARY STENTS Current Visit: No (10) Hyperlipidemia Status: Chronic Current Visit: No (11) Hypertension Status: Chronic Current Visit: No (12) Morbid obesity Status: Chronic Current Visit: No (13) Obstructive sleep apnea Status: Chronic Current Visit: No (14) CVA (cerebral vascular accident) Status: Chronic Comment: Residual right-sided hemiplegia Current Visit: No - Allergies/Procedures Done in Hospital Allergies/Adverse Reactions: Allergies atorvastatin Allergy (Verified 04/17/18 03:12) Hives cilostazol Allergy (Verified 04/17/18 03:12) Hives colestipol Allergy (Verified 04/17/18 03:12) Hives diltiazem Allergy (Verified 04/17/18 03:12) Hives gemfibrozil Allergy (Verified 04/17/18 03:12) Hives naproxen [From Naprosyn] Allergy (Verified 04/17/18 03:12) Hives niacin Allergy (Verified 04/17/18 03:12) Hives Penicillins Allergy (Verified 04/17/18 03:12) Hives pravastatin Allergy (Verified 04/17/18 03:12) Hives procaine [From Novocain] Allergy (Verified 04/17/18 03:12) Hives rosuvastatin Allergy (Verified 04/17/18 03:12) Hives simvastatin Allergy (Verified 04/17/18 03:12) Hives isosorbide Adverse Reaction (Severe, Verified 04/17/18 03:12) Unknown Procedures: None - Type of Care/Length of Stay Estimated LOS: More Than 30 Days Type of Care Needed: Skilled Rehab Potential: Fair Prognosis: Fair - Additional Orders/Day of Discharge Additional Orders: CPAP Q HS. H&P will serve as current which was dated: 04/17/18 Day of Discharge: 04/20/18 - Dietary and Speech Recommendations Dietitian Recommendations/Changes: Rec GARAGE MECHANIC evaluation. Rec CHO controlled, low sodium diet- consistency per GARAGE MECHANIC. - Follow Up Care Primary Care Physician: Julissa Lamb MD [Primary Care Provider] - Please follow up with your Primary Care Physician in: 1 Week
--- NOTE | 2018-04-20 10:34 | PCM.PN.ID ---
Patient Problems: Active and Suspected Problems (Last Updated 04/17/18 @ 14:09 by Darnell Felix DO) Complicated CAUTI (Acute) Severe sepsis (Acute) Subjective: Feeling better, no fever, no abd pain. - Physical Exam General: Alert, Cooperative, No apparent distress Lungs: Clear to auscultation, Normal air movement Cardiovascular: Regular rate, Regular Rhythm Abdomen: Soft, Non Tender, Non-Distended Skin: Ulcer/ Wound - over sacrum, reviewed photo Vital Signs Temp Pulse Resp BP Pulse Ox 98.2 F 84 20 H 158/81 H 94 04/20/18 05:35 04/20/18 07:48 04/20/18 05:35 04/20/18 05:46 04/20/18 05:45 Oxygen Flow Rate (L/min) 5 Oxygen Delivery Method Room Air Weight: 104.8 kg Body Mass Index (BMI) 29.6 Finger Stick Blood Glucose 250 Intake and Output for Last 24 Hours 04/18/18 04/19/18 04/20/18 23:59 23:59 23:59 Intake Total 2555.8 / 2555.8 1817 / 1817 173.3 / 173.3 Output Total 2950 / 2950 4450 / 4450 450 / 450 Balance -394.2 / -394.2 -2633 / -2633 -276.7 / -276.7 Microbiology Past 72 Hours 04/18/18 14:40 Gram Stain - Final Ulcer, Decubitus - Open/Non-Healing Wound Wound Culture - Final Gram positive rebecca 04/17/18 03:08 Urine Culture - Final Urine Catheter - Catheter Citrobacter freundii Providencia rettgeri 04/17/18 02:53 Blood Culture - Preliminary Blood Culture (Wb) - Left Hand No growth in 48 hours. 04/17/18 02:40 Blood Culture - Preliminary Blood Culture (Wb) - Anticubital Left No growth in 48 hours. Laboratory Tests Past 24 Hrs 04/20/18 05:20 Sodium 142 Potassium 3.6 Chloride 108 H Carbon Dioxide 26.0 Anion Gap 8 BUN 10 Creatinine 0.56 L Estim Creat Clear Calc 83.34 Est GFR (MDRD) Af Amer 187 Est GFR (MDRD) Non-Af 154 BUN/Creatinine Ratio 17.9 Glucose 170 H Calcium 8.9 POC Glucose 04/20/18 04/19/18 04/19/18 06:57 23:33 16:54 POC Glucose 181 H 163 H 223 H 04/19/18 11:05 POC Glucose 273 H Medical Necessity - Tobacco Use Smoking Status: Former smoker Route of nutrition/ use of supplements: [] Nutritional Intake: [] IV Site: [] Lane Catheter: [] - Assessment/Plan Antibiotics: [] Assessment/Plan: [] Active and Suspected Problems (Last Updated 04/17/18 @ 14:09 by Darnell Felix DO) Complicated CAUTI (Acute) Severe sepsis (Acute) Lactate improved, fever resolved, tachycardia improved. Ucx with jesse and [facility] for d/c to facility on po cipro and omnicef, stop date 04/26. Will follow, d/w primary team
--- NOTE | 2018-04-20 10:35 | PCM.DC.SUM ---
Discharge Date and Diagnosis Date of Admission: 04/17/18 Date of Discharge: 04/20/18 - Primary Discharge Diagnosis Active and Suspected Problems (Last Updated 04/17/18 @ 14:09 by Darnell Felix DO) 1. Severe sepsis secondary to Citrobacter freundii/providencia rettgeri catheter associated UTI, present on admission 2. Chronic stage IV sacral decubitus ulcer, present on admission 3. History of CVA with residual right-sided hemiplegia 4. Type 2 diabetes mellitus 5. CAD status post CABG x3 and stents 6. Ischemic cardiomyopathy 7. Hypertension 8. Hyperlipidemia 9. JIM 10. Chronic COPD 11. BPH 12. GERD 13. Anemia of chronic disease/iron deficiency anemia - Secondary Discharge Diagnosis Chronic Problems (Last Reviewed 01/15/18 @ 18:40 by Darnell Felix DO) CVA (cerebral vascular accident) (Chronic) Residual right-sided hemiplegia Malnutrition of moderate degree (Chronic) Hemiplegia affecting right dominant side (Chronic) 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, stage 4 (Chronic) Fall (Chronic) Traumatic brain injury (Chronic) Intraparenchymal hemorrhage of brain (Chronic) Subarachnoid hemorrhage (Chronic) Subdural hematoma (Chronic) Intraventricular hemorrhage (Chronic) Right scapula fracture (Chronic) Tobacco abuse (Chronic) Dysphagia (Chronic) Insomnia (Chronic) Vitamin D deficiency (Chronic) Depression (Chronic) GERD (gastroesophageal reflux disease) (Chronic) BPH (benign prostatic hyperplasia) (Chronic) Right hemiplegia (Chronic) Congestive heart failure (Chronic) Alcohol abuse (Chronic) Sleep apnea (Chronic) Diabetes mellitus (Chronic) Encounter for long-term current use of high risk medication (Chronic) Obstructive sleep apnea (Chronic) 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) S/P CABG x3 with right radial to LAD, SVG to RCA, and SVG to OM 2; stenting to LAD in February 2017; Presence of coronary angioplasty implant and graft (Chronic) Presence of aortocoronary bypass graft (Chronic) CABG X 3 2001 ?, Radial artery -LAD, SVG-RCA, SVG-OM2 Non-ST elevation myocardial infarction (NSTEMI), initial care episode (Chronic) 02/16/17 Ischemic cardiomyopathy (Chronic) Restless leg syndrome (Chronic) Hyperlipidemia (Chronic) Hypertensive emergency (Chronic) COPD (chronic obstructive pulmonary disease) (Chronic) Hypertension (Chronic) Morbid obesity (Chronic) Systolic CHF, acute (Chronic) CAD (coronary artery disease) (Chronic) Stented coronary artery (Chronic) [facility] w/HVR-TKX-Vlma LAD (grafts occluded X 3) 02/20/17 Former smoker (Chronic) quit February 2017 Diabetes mellitus type 2 in obese (Chronic) Hx of CABG (Chronic) CABG X3 rADIAL ARTERY-lad, svg-rca, svg-om2. MULTIPLE CORONARY STENTS Hospital Course and Treatment Imaging Results: Diagnostic Data Chest X-Ray 04/17/18 03:00 IMPRESSION: Degenerative changes, as described above. No demonstrated acute cardiopulmonary process. Electronically Signed: Robert Solano MD at 3:30 EST Tel , Service support , Renal Ultrasound 04/18/18 05:55 IMPRESSION: Small bilateral renal cysts. No evidence of hydronephrosis. Electronically Signed: Bakari Briggs MD at 11:14 EST Tel [phone], Service support , Consultations 04/17/18 04:53 Consult: Onc/Wound/government services professional Routine Comment: Dr. Wilkerson- ID Operations: None, - - 01/22/18 - Excision sacral pressure sore, Stage IV, with partial ostectomy for osteomyelitis. 01/29/18 - Laparoscopic diverting end sigmoid colostomy. Procedures: None Summary of Care Provided: The patient is a 67 year old M admitted 04/17/2018 due to fever. 1. Severe sepsis secondary to catheter associated UTI, present on admission-UA positive on admission. Urine culture with Citrobacter and Providencia. Blood cultures show no growth in 48 hours. Chest x-ray without acute process on admission. Leukocytosis resolved. Afebrile for greater than 48 hours. Patient has chronic Lane due to neurogenic bladder. Catheter changed 04/17/18. Patient will need catheter changed monthly and as needed at SNF. Lactic acidosis resolved. ID consulted for antibiotic management. Patient received IV Rocephin during admission. He will be discharged on Omnicef and Cipro p.o. with stop date 04/26/2018. 2. Chronic sacral decubitus ulcer stage IV-status post diverting colostomy and PEG tube January 2018. Wound does not appear infected. Culture showing gram-positive organism. Possible colonization? Prior sacral cultures positive for MDR serratia marcescens, VRE, MSSA, e.coli. Osteomyelitis suspected during prior admission which was ruled out. Patient underwent excision of sacral pressure sore 01/22/[address] Juarez. Wound vac was place after that time and patient completed extensive course of antibiotics which were completed 03/05/18. Continue daily dressing changes and frequent position changes. 3. History of CVA with residual right-sided hemiplegia, history of traumatic brain injury and intracranial bleed following mechanical fall on anticoagulation- Currently residing in SNF. PT/OT/ST. S/P peg tube. PEG tube used infrequently. Tolerating regular diet. Continue statin. discussed removing PEG tube. reports patient requires thickened liquids at times. Recommend leaving PEG tub in place until no further required food/liquid modifications. PEG tube can be removed at the discretion of SNF physician. 4. Type 2 diabetes glzlksks-Orit-Wmokd before meals at bedtime with sliding scale insulin. Lantus regimen increased to 25 units twice daily. Continue scheduled Humalog 12 units 3 times daily. 5. CAD status post CABG X3 and stents- Follows with Dr. Roche. 6. Ischemic cardiomyopathy-echo March 2017 with EF 45%. 7. Hypertension- stable, continue home metoprolol regimen. 8. Hyperlipidemia-continue statin. 9. JIM- continue CPAP QHS. 10. Chronic COPD- no acute exacerbation. 11. BPH- Continue home flomax regimen. Lane in place due to neurogenic bladder. 12. GERD- continue PPI. 13. Anemia of chronic disease/iron deficiency anemia-continue iron supplementation. General: Alert, Oriented x3, Cooperative HEENT: Atraumatic, PERRLA, EOMI, Normocephalic Oral: Moist Mucosa Neck: Supple, No JVD, Negative Carotid Bruits Lungs: Clear to auscultation, Diminished Cardiovascular: Regular rate, Regular Rhythm, Normal S1, Normal S2, No murmurs Abdomen: Bowel Sounds Present, Soft, Non Tender, Non-Distended, - - PEG tube intact Extremities: No clubbing, No cyanosis, No edema, Capillary Refill Less than 3 Seconds Skin: No rashes, No breakdown, Chronic sacral decubitus ulcer stage IV, present on admission. 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 Psych/Mental Status: Normal Affect, Appropriate Patient seen and examined prior to discharge. Physical assessment as noted above. Patient is stable for discharge to SNF. This patient was seen by SB Penny under the supervision of Dr. Solo. - Physical Exam Vital Signs Temp Pulse Resp BP Pulse Ox 98.2 F 84 20 H 158/81 H 94 04/20/18 05:35 04/20/18 07:48 04/20/18 05:35 04/20/18 05:46 04/20/18 05:45 Oxygen Flow Rate (L/min) 5 Oxygen Delivery Method Room Air Weight: 231 lb 0.711 oz Body Mass Index (BMI) 29.6 Finger Stick Blood Glucose 250 Intake and Output for Last 24 Hours 04/18/18 04/19/18 04/20/18 23:59 23:59 23:59 Intake Total 2555.8 / 2555.8 1817 / 1817 173.3 / 173.3 Output Total 2950 / 2950 4450 / 4450 450 / 450 Balance -394.2 / -394.2 -2633 / -2633 -276.7 / -276.7 Microbiology Past 72 Hours 04/18/18 14:40 Gram Stain - Final Ulcer, Decubitus - Open/Non-Healing Wound Wound Culture - Final Gram positive rebecca 04/17/18 03:08 Urine Culture - Final Urine Catheter - Catheter Citrobacter freundii Providencia rettgeri 04/17/18 02:53 Blood Culture - Preliminary Blood Culture (Wb) - Left Hand No growth in 48 hours. 04/17/18 02:40 Blood Culture - Preliminary Blood Culture (Wb) - Anticubital Left No growth in 48 hours. Laboratory Tests Past 24 Hrs 04/20/18 05:20 Sodium 142 Potassium 3.6 Chloride 108 H Carbon Dioxide 26.0 Anion Gap 8 BUN 10 Creatinine 0.56 L Estim Creat Clear Calc 83.34 Est GFR (MDRD) Af Amer 187 Est GFR (MDRD) Non-Af 154 BUN/Creatinine Ratio 17.9 Glucose 170 H Calcium 8.9 POC Glucose 11/13/18 11/12/18 11/12/18 06:57 23:33 16:54 POC Glucose 181 H 163 H 223 H 04/19/18 11:05 POC Glucose 273 H Home Medications: Medications to take at Discharge Amantadine [Symmetrel] 100 mg PO DAILY 04/17/18 Ammonium Lactate [Amlactin] 3 gm TP QHS 04/17/18 Argin/Glut/Cahmb/Collag/Mv-Min [[place] Packet] 1 each PO BID 04/17/18 Ascorbic Acid [Vitamin C] 1,000 mg PO DAILY 04/17/18 Budesonide [Pulmicort] 0.5 mg IH BID 04/17/18 Fluticasone 0.05% [Flonase Nasal [place]] 2 spray NASAL DAILY 04/17/18 Furosemide [Lasix] 40 mg PO BIDLX 04/17/18 Insulin Lispro [Humalog] 12 unit SC TIDCM 04/17/18 Iron Polysaccharide Complex [Ferrex 150] 150 mg PO DAILYCM 04/17/18 L. Rhamnosus GG/Inulin [Culturelle Capsule] 1 each PO BID 04/17/18 Magnesium Oxide [Mag-Ox 400] 400 mg PO TID 04/17/18 Metoprolol Tartrate [Lopressor (beta stepan)] 100 mg PO TID 04/17/18 Mineral Oil/Petrolatum,White [Eucerin] 1 applic TOPICAL DAILY PRN PRN 04/17/18 Pantoprazole Sodium [Protonix] 40 mg PO DAILY 04/17/18 Polyethylene Glycol 3350 [Miralax] 17 gm PO DAILY 04/17/18 Pramipexole Di-HCl [Mirapex] 0.25 mg PO QHS 04/17/18 Pravastatin Sodium 80 mg PO QHS 04/17/18 Senna/Docusate Sodium [Senokot-S] 2 tablet PO BID 04/17/18 Tamsulosin HCl [Flomax] 0.4 mg PO DAILY 04/17/18 Cefdinir [Omnicef [equiv]] 300 mg PO Q12 capsule 04/20/18 Ciprofloxacin [Cipro] 500 mg PO BID tablet 04/20/18 Insulin Glargine,Hum.rec.anlog [Lantus] 25 unit SC BID #0 04/20/18 Insulin Lispro [Humalog KwikPen] See Protocol SC ACHS insuln.pen 04/20/18 Primary Care Physician: Julissa Lamb MD [Primary Care Provider] - Please follow up with your Primary Care Physician in: 1 Week Disposition: Longterm facility Minutes spent on discharge:: 35 Patient Condition:: Stable Medical Necessity - Tobacco Use Smoking Status: Former smoker Meaningful Use Info Meaningful Use Diagnoses (Choose all that apply): None applicable
--- NOTE | 2018-04-20 10:40 | DS.PCM_ITS ---
Discharge Date and Diagnosis Date of Admission: 04/17/18 Date of Discharge: 04/20/18 - Primary Discharge Diagnosis Active and Suspected Problems (Last Updated 04/17/18 @ 14:09 by Darnell Felix DO) 1. Severe sepsis secondary to Citrobacter freundii/providencia rettgeri catheter associated UTI, present on admission 2. Chronic stage IV sacral decubitus ulcer, present on admission 3. History of CVA with residual right-sided hemiplegia 4. Type 2 diabetes mellitus 5. CAD status post CABG x3 and stents 6. Ischemic cardiomyopathy 7. Hypertension 8. Hyperlipidemia 9. JIM 10. Chronic COPD 11. BPH 12. GERD 13. Anemia of chronic disease/iron deficiency anemia - Secondary Discharge Diagnosis Chronic Problems (Last Reviewed 01/15/18 @ 18:40 by Darnell Felix DO) CVA (cerebral vascular accident) (Chronic) Residual right-sided hemiplegia Malnutrition of moderate degree (Chronic) Hemiplegia affecting right dominant side (Chronic) 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, stage 4 (Chronic) Fall (Chronic) Traumatic brain injury (Chronic) Intraparenchymal hemorrhage of brain (Chronic) Subarachnoid hemorrhage (Chronic) Subdural hematoma (Chronic) Intraventricular hemorrhage (Chronic) Right scapula fracture (Chronic) Tobacco abuse (Chronic) Dysphagia (Chronic) Insomnia (Chronic) Vitamin D deficiency (Chronic) Depression (Chronic) GERD (gastroesophageal reflux disease) (Chronic) BPH (benign prostatic hyperplasia) (Chronic) Right hemiplegia (Chronic) Congestive heart failure (Chronic) Alcohol abuse (Chronic) Sleep apnea (Chronic) Diabetes mellitus (Chronic) Encounter for long-term current use of high risk medication (Chronic) Obstructive sleep apnea (Chronic) 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) S/P CABG x3 with right radial to LAD, SVG to RCA, and SVG to OM 2; stenting to LAD in February 2017; Presence of coronary angioplasty implant and graft (Chronic) Presence of aortocoronary bypass graft (Chronic) CABG X 3 2001 ?, Radial artery -LAD, SVG-RCA, SVG-OM2 Non-ST elevation myocardial infarction (NSTEMI), initial care episode (Chronic) 02/16/17 Ischemic cardiomyopathy (Chronic) Restless leg syndrome (Chronic) Hyperlipidemia (Chronic) Hypertensive emergency (Chronic) COPD (chronic obstructive pulmonary disease) (Chronic) Hypertension (Chronic) Morbid obesity (Chronic) Systolic CHF, acute (Chronic) CAD (coronary artery disease) (Chronic) Stented coronary artery (Chronic) [facility] w/CSL-OBY-Qmki LAD (grafts occluded X 3) 02/20/17 Former smoker (Chronic) quit February 2017 Diabetes mellitus type 2 in obese (Chronic) Hx of CABG (Chronic) CABG X3 rADIAL ARTERY-lad, svg-rca, svg-om2. MULTIPLE CORONARY STENTS Hospital Course and Treatment Imaging Results: Diagnostic Data Chest X-Ray 04/17/18 03:00 IMPRESSION: Degenerative changes, as described above. No demonstrated acute cardiopulmonary process. Electronically Signed: Robert Solano MD at 3:30 EST Tel , Service support , Renal Ultrasound 04/18/18 05:55 IMPRESSION: Small bilateral renal cysts. No evidence of hydronephrosis. Electronically Signed: Bakari Briggs MD at 11:14 EST Tel [phone], Service support , Consultations 04/17/18 04:53 Consult: Onc/Wound/reading instructor Routine Comment: Dr. Wilkerson- ID Operations: None, - - 01/22/18 - Excision sacral pressure sore, Stage IV, with partial ostectomy for osteomyelitis. 01/29/18 - Laparoscopic diverting end sigmoid colostomy. Procedures: None Summary of Care Provided: The patient is a 67 year old M admitted 04/17/2018 due to fever. 1. Severe sepsis secondary to catheter associated UTI, present on admission-UA positive on admission. Urine culture with Citrobacter and Providencia. Blood cultures show no growth in 48 hours. Chest x-ray without acute process on admission. Leukocytosis resolved. Afebrile for greater than 48 hours. Patient has chronic Lane due to neurogenic bladder. Catheter changed 04/17/18. Patient will need catheter changed monthly and as needed at SNF. Lactic acidosis resolved. ID consulted for antibiotic management. Patient received IV Rocephin during admission. He will be discharged on Omnicef and Cipro p.o. with stop date 04/26/2018. 2. Chronic sacral decubitus ulcer stage IV-status post diverting colostomy and PEG tube January 2018. Wound does not appear infected. Culture showing gram- positive organism. Possible colonization? Prior sacral cultures positive for MDR serratia marcescens, VRE, MSSA, e.coli. Osteomyelitis suspected during prior admission which was ruled out. Patient underwent excision of sacral pressure sore 01/22/[address] Juarez. Wound vac was place after that time and patient completed extensive course of antibiotics which were completed 03/05/18. Continue daily dressing changes and frequent position changes. 3. History of CVA with residual right-sided hemiplegia, history of traumatic brain injury and intracranial bleed following mechanical fall on anticoagulation- Currently residing in SNF. PT/OT/ST. S/P peg tube. PEG tube used infrequently. Tolerating regular diet. Continue statin. discussed removing PEG tube. reports patient requires thickened liquids at times. Recommend leaving PEG tub in place until no further required food/liquid modifications. PEG tube can be removed at the discretion of SNF physician. 4. Type 2 diabetes oljghykp-Loag-Ybrul before meals at bedtime with sliding scale insulin. Lantus regimen increased to 25 units twice daily. Continue scheduled Humalog 12 units 3 times daily. 5. CAD status post CABG X3 and stents- Follows with Dr. Roche. 6. Ischemic cardiomyopathy-echo March 2017 with EF 45%. 7. Hypertension- stable, continue home metoprolol regimen. 8. Hyperlipidemia-continue statin. 9. JIM- continue CPAP QHS. 10. Chronic COPD- no acute exacerbation. 11. BPH- Continue home flomax regimen. Lane in place due to neurogenic bladder. 12. GERD- continue PPI. 13. Anemia of chronic disease/iron deficiency anemia-continue iron supplementation. General: Alert, Oriented x3, Cooperative HEENT: Atraumatic, PERRLA, EOMI, Normocephalic Oral: Moist Mucosa Neck: Supple, No JVD, Negative Carotid Bruits Lungs: Clear to auscultation, Diminished Cardiovascular: Regular rate, Regular Rhythm, Normal S1, Normal S2, No murmurs Abdomen: Bowel Sounds Present, Soft, Non Tender, Non-Distended, - - PEG tube intact Extremities: No clubbing, No cyanosis, No edema, Capillary Refill Less than 3 Seconds Skin: No rashes, No breakdown, Chronic sacral decubitus ulcer stage IV, present on admission. 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 Psych/Mental Status: Normal Affect, Appropriate Patient seen and examined prior to discharge. Physical assessment as noted above. Patient is stable for discharge to SNF. This patient was seen by SB Penny under the supervision of Dr. Solo. - Physical Exam Vital Signs Temp Pulse Resp BP Pulse Ox 98.2 F 84 20 H 158/81 H 94 04/20/18 05:35 04/20/18 07:48 04/20/18 05:35 04/20/18 05:46 04/20/18 05:45 Oxygen Flow Rate (L/min) 5 Oxygen Delivery Method Room Air Weight: 231 lb 0.711 oz Body Mass Index (BMI) 29.6 Finger Stick Blood Glucose 250 Intake and Output for Last 24 Hours 04/18/18 04/19/18 04/20/18 23:59 23:59 23:59 Intake Total 2555.8 / 2555.8 1817 / 1817 173.3 / 173.3 Output Total 2950 / 2950 4450 / 4450 450 / 450 Balance -394.2 / -394.2 -2633 / -2633 -276.7 / -276.7 Microbiology Past 72 Hours 04/18/18 14:40 Gram Stain - Final Ulcer, Decubitus - Open/Non-Healing Wound Wound Culture - Final Gram positive rebecca 04/17/18 03:08 Urine Culture - Final Urine Catheter - Catheter Citrobacter freundii Providencia rettgeri 04/17/18 02:53 Blood Culture - Preliminary Blood Culture (Wb) - Left Hand No growth in 48 hours. 04/17/18 02:40 Blood Culture - Preliminary Blood Culture (Wb) - Anticubital Left No growth in 48 hours. Laboratory Tests Past 24 Hrs 04/20/18 05:20 Sodium 142 Potassium 3.6 Chloride 108 H Carbon Dioxide 26.0 Anion Gap 8 BUN 10 Creatinine 0.56 L Estim Creat Clear Calc 83.34 Est GFR (MDRD) Af Amer 187 Est GFR (MDRD) Non-Af 154 BUN/Creatinine Ratio 17.9 Glucose 170 H Calcium 8.9 POC Glucose 11/13/18 11/12/18 11/12/18 06:57 23:33 16:54 POC Glucose 181 H 163 H 223 H 04/19/18 11:05 POC Glucose 273 H Home Medications: Medications to take at Discharge Amantadine [Symmetrel] 100 mg PO DAILY 04/17/18 Ammonium Lactate [Amlactin] 3 gm TP QHS 04/17/18 Argin/Glut/Cahmb/Collag/Mv-Min [[place] Packet] 1 each PO BID 04/17/18 Ascorbic Acid [Vitamin C] 1,000 mg PO DAILY 04/17/18 Budesonide [Pulmicort] 0.5 mg IH BID 04/17/18 Fluticasone 0.05% [Flonase Nasal [place]] 2 spray NASAL DAILY 04/17/18 Furosemide [Lasix] 40 mg PO BIDLX 04/17/18 Insulin Lispro [Humalog] 12 unit SC TIDCM 04/17/18 Iron Polysaccharide Complex [Ferrex 150] 150 mg PO DAILYCM 04/17/18 L. Rhamnosus GG/Inulin [Culturelle Capsule] 1 each PO BID 04/17/18 Magnesium Oxide [Mag-Ox 400] 400 mg PO TID 04/17/18 Metoprolol Tartrate [Lopressor (beta stepan)] 100 mg PO TID 04/17/18 Mineral Oil/Petrolatum,White [Eucerin] 1 applic TOPICAL DAILY PRN PRN 04/17/18 Pantoprazole Sodium [Protonix] 40 mg PO DAILY 04/17/18 Polyethylene Glycol 3350 [Miralax] 17 gm PO DAILY 04/17/18 Pramipexole Di-HCl [Mirapex] 0.25 mg PO QHS 04/17/18 Pravastatin Sodium 80 mg PO QHS 04/17/18 Senna/Docusate Sodium [Senokot-S] 2 tablet PO BID 04/17/18 Tamsulosin HCl [Flomax] 0.4 mg PO DAILY 04/17/18 Cefdinir [Omnicef [equiv]] 300 mg PO Q12 capsule 04/20/18 Ciprofloxacin [Cipro] 500 mg PO BID tablet 04/20/18 Insulin Glargine,Hum.rec.anlog [Lantus] 25 unit SC BID #0 04/20/18 Insulin Lispro [Humalog KwikPen] See Protocol SC ACHS insuln.pen 04/20/18 Primary Care Physician: Julissa Lamb MD [Primary Care Provider] - Please follow up with your Primary Care Physician in: 1 Week Disposition: Senior Care facility Minutes spent on discharge:: 35 Patient Condition:: Stable Medical Necessity - Tobacco Use Smoking Status: Former smoker Meaningful Use Info Meaningful Use Diagnoses (Choose all that apply): None applicable
[2018-04-20] MEDS: Cefdinir 300 MG Capsule PO (10:48)
--- NOTE | 2018-04-20 11:15 | CASEMGMT ---
Social Work Pt ready for d/c on this date. Met with pt and and informed. Pt prefers [facility]. Transportation arranged through [facility] with a 12:00 parts picker. Pt and nursing notified of d/c time. Orders faxed to [facility] and phone call to [place] to inform of d/c time. Plan: [facility] KANDACE Smith
[2018-04-20 11:31] LABS: Bedside Glucose 234 mg/dL (70-110)
[2018-04-20 11:35] VITALS: BP 154/78; PULSE 87; RESP 18; TEMP 36.9; O2SAT 94
== END 2018-04-20 12:05 | disposition skilled nursing facility (03) | DRG 698 ==
LOC: ED 03:24 → PCU 05:05
PROVIDERS: Nurse Practitioner Family; Admitting Provider Internal Medicine; Emergency Provider Emergency Medicine; Family Provider Family Medicine; PCP Family Medicine; Visit Provider Internal Medicine
DX: T83.511A Infection and inflammatory reaction due to indwelling urethral catheter, initial encounter (principal); A41.59 Other Gram-negative sepsis; R65.20 Severe sepsis without septic shock; L89.154 Pressure ulcer of sacral region, stage 4; I69.351 Hemiplegia and hemiparesis following cerebral infarction affecting right dominant side; I50.22 Chronic systolic (congestive) heart failure; N39.0 Urinary tract infection, site not specified; N31.9 Neuromuscular dysfunction of bladder, unspecified; Z93.3 Colostomy status; Z93.1 Gastrostomy status; E11.9 Type 2 diabetes mellitus without complications; I11.0 Hypertensive heart disease with heart failure; Z66 Do not resuscitate; I25.5 Ischemic cardiomyopathy; E78.5 Hyperlipidemia, unspecified; G47.33 Obstructive sleep apnea (adult) (pediatric); J44.9 Chronic obstructive pulmonary disease, unspecified; D63.8 Anemia in other chronic diseases classified elsewhere; I25.10 Atherosclerotic heart disease of native coronary artery without angina pectoris; I25.2 Old myocardial infarction; D50.9 Iron deficiency anemia, unspecified; Z95.1 Presence of aortocoronary bypass graft; Z87.891 Personal history of nicotine dependence; Z95.5 Presence of coronary angioplasty implant and graft; N40.0 Benign prostatic hyperplasia without lower urinary tract symptoms; K21.9 Gastro-esophageal reflux disease without esophagitis; Z87.820 Personal history of traumatic brain injury; Z79.4 Long term (current) use of insulin; Z79.899 Other long term (current) drug therapy
CPT/HCPCS: 36415; 71045; 76770; 80048; 80053; 81001; 82962; 83036; 83605; 84484; 85025; 85027; 85610; 85730; 87040; 87070; 87077; 87086; 87088; 87186; 87205; 87640; 87641; 93005; 94760; 97110; 97163; 97166; 97530; 97802; 99285; J7030; A4216

== ENCOUNTER 2018-07-14 09:24 | Day surgery (SDC) | payer MEDICARE, SELFPAY ==
[2017-02-20 12:18] VITALS: BMI 46.4
[2018-06-18 10:10] VITALS: BMI 29.5
[2018-07-14 10:19] VITALS: BP 122/57; PULSE 85; RESP 16; TEMP 36.9; O2SAT 96; BMI 29.6
[2018-07-14 11:11] LABS: Bedside Glucose 134 mg/dL (70-110)
[2018-07-14] MEDS: Cefazolin 2 GM in 0.9% Normal Saline 100 ML IV (13:30)
--- NOTE | 2018-07-14 13:42 | DCINST_ITS ---
Discharge Diet: Light diet - advance as tolerated Discharge Activity: Return to Normal Activity Call your doctor if your incision/area has: Sudden Increased Bleeding, Increased Redness Call your doctor if you observe: Fever of 101 or Higher Suture Line Care: Avoid Pulling/Pushing, Avoid Pinching/Bending Catheter: Lane to leg bag, Lane to large bag Drain: [place] Instructions: Discharge Instructions: Caring for Your Suprapubic Catheter Allergies/Adverse Reactions: Allergies atorvastatin Allergy (Verified 06/18/18 10:11) Hives cilostazol Allergy (Verified 06/18/18 10:11) Hives colestipol Allergy (Verified 06/18/18 10:11) Hives diltiazem Allergy (Verified 06/18/18 10:11) Hives gemfibrozil Allergy (Verified 06/18/18 10:11) Hives naproxen [From Naprosyn] Allergy (Verified 06/18/18 10:11) Hives niacin Allergy (Verified 06/18/18 10:11) Hives Penicillins Allergy (Verified 06/18/18 10:11) Hives pravastatin Allergy (Verified 06/18/18 10:11) Hives procaine [From Novocain] Allergy (Verified 06/18/18 10:11) Hives rosuvastatin Allergy (Verified 06/18/18 10:11) Hives simvastatin Allergy (Verified 06/18/18 10:11) Hives isosorbide Adverse Reaction (Severe, Verified 06/18/18 10:11) Unknown Medications to take at Discharge Amantadine [Symmetrel] 100 mg PO DAILY 04/17/18 Ammonium Lactate [Amlactin] 3 gm TP QHS 04/17/18 Ascorbic Acid [Vitamin C] 1,000 mg PO DAILY 04/17/18 Budesonide [Pulmicort] 0.5 mg IH BID 04/17/18 Fluticasone 0.05% [Flonase Nasal [place]] 2 spray NASAL DAILY 04/17/18 Insulin Lispro [Humalog] 12 unit SUBCUT TIDCM 04/17/18 Iron Polysaccharide Complex [Ferrex 150] 150 mg PO DAILYCM 04/17/18 L. Rhamnosus GG/Inulin [Culturelle Capsule] 1 ea PO BID 04/17/18 Magnesium Oxide [Mag-Ox 400] 400 mg PO TID 04/17/18 Metoprolol Tartrate [Lopressor (beta stepan)] 100 mg PO TID 04/17/18 Mineral Oil/Petrolatum,White [Eucerin] 1 applic TOPICAL DAILY PRN PRN 04/17/18 Pantoprazole Sodium [Protonix] 40 mg PO DAILY 04/17/18 Polyethylene Glycol 3350 [Miralax] 17 gm PO DAILY 04/17/18 Pramipexole Di-HCl [Mirapex] 0.25 mg PO QHS 04/17/18 Pravastatin Sodium 80 mg PO QHS 04/17/18 Senna/Docusate Sodium [Senokot-S] 2 tab PO BID 04/17/18 Tamsulosin HCl [Flomax] 0.4 mg PO DAILY 04/17/18 Insulin Glargine,Hum.rec.anlog [Lantus] 25 unit SUBCUT BID #0 04/20/18 Insulin Lispro [Humalog KwikPen] See Protocol SUBCUT ACHS insuln.pen 04/20/18 furosemide 40 mg tablet 40 mg PO BID tab 06/17/18 potassium chloride ER 20 mEq tablet,extended release(part/cryst) 20 meq PO DAILY 90 Days #90 tab 06/17/18 Nitrofurantoin Monohyd/M-Cryst [Macrobid 100 mg Capsule] 100 mg PO BID 07/09/18 Primary Care Physician: Julissa Lamb MD [Primary Care Provider] - Test Results: Test results from this visit will be discussed in further detail at your follow- up appointment, if applicable. Please Follow Up With: Deshawn Esteban MD When: 6 weeks with my office to change kimmie.
--- NOTE | 2018-07-14 14:02 | PCM.OPRPT ---
Report of Operation Date of Procedure: 07/14/18 Pre-Operative Diagnosis: Sacral decubitus ulcer and neurogenic bladder Post-Operative Diagnosis: The same urethral stricture Surgery/Procedure Performed:: Cystoscopy dilation of urethral stricture and placement of a suprapubic catheter Description of Surgical Findings:: 68-year-old male taken back to the operating room plan today is to place a suprapubic catheter he has chronic incontinence and difficulty emptying his bladder he has a sacral wound that is infected and is try to heal he has had a diverting colostomy and I have been requested to place a suprapubic catheter To divert the urine. 60-year-old male taken back to the operating room at the smooth induction of [facility] local he was placed supine on the table, penis and testicles are prepped and draped in usual sterile fashion went into the bladder through the urethra with a 18 Guamanian flexible cystoscope and encountered a stricture in the mid urethra and Metzenbaums a wire through the stricture dilated the stricture with Bridgett dilators over the wire after dilating the stricture I went into the bladder the entire length of the urethra was otherwise normal he has had a bulbar urethral stricture fairly tight long stricture and the prostate was enlarged with bilateral hypertrophy normal length and size just mild obstruction inside the bladder was fairly distended, I then looked to the dome of the bladder we infiltrated the skin in the midline with lidocaine and then the bladder was distended I used a suprapubic trocar to introduce the trocar into the bladder and then through the trocar introduced a 16 Guamanian catheter 16 Guamanian catheter was left in place the sheath was pulled out removed off the catheter catheter was stitched into the skin 10 cc in the balloon and was left to gravity drainage I then removed the flexible cystoscope bladder was draining minimal bleeding. Patient tolerated procedure well taken to PACU good condition. He will follow-up in 6 weeks to have the catheter changed Type of Anesthesia:: General Drains: sp tube - Admit VTE Documentation VTE Present on Admission: No VTE Mechan Device Prophylaxis: SCD's
--- NOTE | 2018-07-14 14:05 | OP.PCM_ITS ---
Report of Operation Date of Procedure: 07/14/18 Pre-Operative Diagnosis: Sacral decubitus ulcer and neurogenic bladder Post-Operative Diagnosis: The same urethral stricture Surgery/Procedure Performed:: Cystoscopy dilation of urethral stricture and placement of a suprapubic catheter Description of Surgical Findings:: 68-year-old male taken back to the operating room plan today is to place a suprapubic catheter he has chronic incontinence and difficulty emptying his bladder he has a sacral wound that is infected and is try to heal he has had a diverting colostomy and I have been requested to place a suprapubic catheter To divert the urine. 60-year-old male taken back to the operating room at the smooth induction of [facility] local he was placed supine on the table, penis and testicles are prepped and draped in usual sterile fashion went into the bladder through the urethra with a 18 Tongan flexible cystoscope and encountered a stricture in the mid urethra and Metzenbaums a wire through the stricture dilated the stricture with Bridgett di lators over the wire after dilating the stricture I went into the bladder the entire length of the urethra was otherwise normal he has had a bulbar urethral stricture fairly tight long stricture and the prostate was enlarged with bilateral hypertrophy normal length and size just mild obstruction inside the bladder was fairly distended, I then looked to the dome of the bladder we infiltrated the skin in the midline with lidocaine and then the bladder was distended I used a suprapubic trocar to introduce the trocar into the bladder and then through the trocar introduced a 16 Tongan catheter 16 Tongan catheter was left in place the sheath was pulled out removed off the catheter catheter was stitched into the skin 10 cc in the balloon and was left to gravity drainage I then removed the flexible cystoscope bladder was draining minimal bleeding. Patient tolerated procedure well taken to PACU good condition. He will follow- up in 6 weeks to have the catheter changed Type of Anesthesia:: General Drains: sp tube - Admit VTE Documentation VTE Present on Admission: No VTE Mechan Device Prophylaxis: SCD's
--- NOTE | 2018-07-14 14:09 | HP.PCM_ITS ---
History and Physical Date of Admission: 07/14/18 68 yo male new pt accompanied by his for urinary incontinence following CVA. On 10/27/17 he had a stroke then fell down the stairs and had TBI. He is at [facility]. Had burks catheter in place until about 2 mos ago. Hospitalized for sepsis secondary to CAUTI. Then he pulled burks out twice so it was left out since then. He is very frustrated and embarrassed by being wet all the time. Very recently he has started to have an occasional sensation of needing to urinate. Has right hemiplegia. Had large sacral wound, osteomyelitis, surgical debridement. Still has wound but smaller now. Has colostomy to protect the wound. Prior to CVA he was on tamsulosin for BPH with LUTS. Had PEG tube but that might be removed soon. Renal US 04/2018 neg for hydronephrosis. ALLERGIES: Atorvastatin Cilostazol Colestipol Diltiazem Gemfibrozil Isosorbide Nitrate Naproxen Niacin Penicillin Procaine Rosuvastatin Simvastatin MEDICATIONS: Flomax Amantadine Ammonium Lactate 12 % cream Antacid Bisacodyl Culturelle Eucerin Ferrex 150 Fleet Enema Flonase Allergy Relief Glucagon Emergency Kit Glucose Gel Guaifenesin Humalog Hydroxyzine Hcl Lantus Lasix Magnesium Oxide Metoprolol Tartrate Milk Of Magnesia Miralax Mirapex Nitroglycerin Oxycodone Hcl Potassium Chloride Pravastatin Sodium Protonix Pulmicort Santyl Senokot Tylenol Vitamin C PSH: None NON- PSH: Appendectomy Back Surgery (Unspecified) Cholecystectomy Colonoscopy Coronary Artery Bypass Grafting Hip Replacement Tonsillectomy PMH: Benign prostatic hyperplasia without lower urinary tract symptoms Urinary tract infection, site not specified NON- PMH: Allergic rhinitis, unspecified Atherosclerosis of CABG w/o angina pectoris Chronic obstructive pulmonary disease, unspecified Colostomy status Dysphagia, oropharyngeal phase Essential (primary) hypertension Gastro-esophageal reflux disease without esophagitis Heart failure, unspecified Hemiplga following cerebral infrc aff right dominant side Hyperlipidemia, unspecified Infection and inflammatory reaction due to indwelling urethral catheter, subsequent encounter Insomnia, unspecified Major depressive disorder, recurrent, unspecified Muscle weakness (generalized) Obstructive sleep apnea (adult) (pediatric) Old myocardial infarction Other cerebrovascular disease Other specified anxiety disorders Personal history of traumatic brain injury Pressure ulcer of sacral region, stage 4 Sepsis, unspecified organism Type 2 diabetes mellitus with other specified complication FAMILY HISTORY: Family History Unknown SOCIAL HISTORY: Marital Status: Preferred Language: Cypriot; Ethnicity: Not Or ; Race: White Current Smoking Status: Patient does not smoke anymore. Has not smoked since 04/08/2018. Smoked 1 pack per day. Tobacco Use Assessment Completed: Used Tobacco in last 30 days? Does not use smokeless tobacco. Has not drank since 06/08/1991. Does not use drugs. Drinks 3 caffeinated drinks per day. Has not had a blood transfusion. REVIEW OF SYSTEMS: Constitutional: Patient denies fever and chills. Ears, Nose, Mouth, Throat: Patient reports sleep apnea. Gastrointestinal: colostomy. Patient reports change in bowels. Patient denies abdominal pain and nausea/vomiting. Genitourinary: Patient reports leakage of urine and bedwetting. Patient denies frequent urination, urinary retention, get up at night to void, blood in urine, frequent urinary tract infections, history of stones, difficulty starting stream, and weak stream. Integumentary/Skin: sacral wound. Neurological: right hemiplegia. Patient reports stroke/tia. VITAL SIGNS: 06/29/2018 09:46 AM Weight 227 lb / 102.97 kg Height 75 in / 190.5 cm BP 142/78 mmHg BMI 28.4 kg/m? MULTI-SYSTEM PHYSICAL EXAMINATION: Notes: Pleasant male, tearful intermittently, in motorized wheelchair, R doreen plegia. Abd with PEG tube, colostomy bag LLQ. PAST DATA REVIEWED: Source Of History: Patient Records Review: Previous Hospital Records PROCEDURES: None ASSESSMENT: ICD-10 Details 1 : Neuromuscular dysfunction of bladder, unspecified - N31.9 2 Personal history of urinary (tract) infections - Z87.440 3 Benign prostatic hyperplasia without lower urinary tract symptoms - N40.0 4 Incontinence without sensory awareness - N39.42 5 NON-: Type 2 diabetes mellitus with other specified complication - E11.69 6 Pressure ulcer of sacral region, stage 4 - L89.154 7 Personal history of traumatic brain injury - Z87.820 8 Other cerebrovascular disease - I67.89 9 Colostomy status - Z93.3 PLAN: Document Letter(s): Created for Patient: Clinical Summary Notes: 68 yo male with neurogenic bladder secondary to CVA and TBI, with urinary incontinence, h/o BPH with LUTS, DM2, sacral wound, colostomy. Plan is for Dr Esteban to place a suprapubic tube, will be scheduled at [facility].
[2018-07-14 14:20] VITALS: BP 122/57; BP 145/77; PULSE 88; RESP 16; TEMP 36.4; O2SAT 98
[2018-07-14 14:25] VITALS: BP 122/57; BP 155/76; PULSE 86; RESP 16; O2SAT 99
[2018-07-14 14:30] VITALS: BP 122/57; BP 144/76; PULSE 88; RESP 16; O2SAT 98
[2018-07-14 14:35] VITALS: BP 122/57; BP 130/63; PULSE 87; RESP 16; TEMP 36.4; O2SAT 95
[2018-07-14 15:21] VITALS: BP 122/57; BP 125/78; PULSE 78; RESP 18; TEMP 36.6; O2SAT 98
== END 2018-07-14 15:24 | disposition home or self-care (01) ==
LOC: SDC 09:30 → AC 09:32
PROVIDERS: Family Provider Family Medicine; PCP Family Medicine; Referring Provider Urology; Visit Provider Urology
PROC: 0T9B40Z Drainage of Bladder with Drainage Device, Percutaneous Endoscopic Approach (ICD-10-PCS; CPT 52005; principal; 2018-07-14 11:20)
DX: N31.9 Neuromuscular dysfunction of bladder, unspecified (principal); N35.919 Unspecified urethral stricture, male, unspecified site; L89.154 Pressure ulcer of sacral region, stage 4; N39.498 Other specified urinary incontinence; I69.351 Hemiplegia and hemiparesis following cerebral infarction affecting right dominant side; N40.1 Benign prostatic hyperplasia with lower urinary tract symptoms; I25.10 Atherosclerotic heart disease of native coronary artery without angina pectoris; J44.9 Chronic obstructive pulmonary disease, unspecified; I10 Essential (primary) hypertension; K21.9 Gastro-esophageal reflux disease without esophagitis; Z87.820 Personal history of traumatic brain injury; E78.5 Hyperlipidemia, unspecified; G47.33 Obstructive sleep apnea (adult) (pediatric); I25.2 Old myocardial infarction; E11.69 Type 2 diabetes mellitus with other specified complication; Z79.899 Other long term (current) drug therapy; Z79.4 Long term (current) use of insulin; Z95.1 Presence of aortocoronary bypass graft; Z87.891 Personal history of nicotine dependence; Z93.3 Colostomy status; Z93.1 Gastrostomy status
CPT/HCPCS: 00800; 51102; 52281; 82962; J7120; J2405

== ENCOUNTER → 2018-12-29 | Outpatient (CLI) | payer MEDICARE, SELFPAY ==
[2017-02-20 12:18] VITALS: BMI 46.4
[2018-12-17 11:05] VITALS: BMI 33.3
--- NOTE | 2018-12-29 13:55 | ECHOD_ITS ---
Reason For Study: Dyspnea/SOB Procedure This was a 2D Doppler, Color Flow transthoracic echocardiogram. The study was technically difficult. Contrast injection was performed. Exam performed in department. Left Ventricle Mildly dilated left ventricle. The estimated ejection fraction is 55 %. Stage 1 diastolic dysfunction. No regional wall motion abnormalities noted. Right Ventricle Normal RV size. Normal systolic function. Atria The left atrium is moderately enlarged. Normal right atrium. Mitral Valve Mitral valve not well visualized. Tricuspid Valve Normal tricuspid valve. Aortic Valve The aortic valve is not well visualized. Pulmonic Valve The pulmonic valve is not well visualized. Great Vessels Normal aortic root. Pericardium/Pleural No pericardial effusion. Medication Diluted definity 4ml given slow IV push to enhance endocardial definition. MMode/2D Measurements & Calculations LVIDd: 6.5 cm IVSd: 1.4 cm Ao root diam: 3.4 cm LVIDs: 4.8 cm LVPWd: 1.2 cm FS: 25.8 % LAV(MOD-bp): 85.9 ml LVAd ap4: 44.8 cm2 SV(MOD-sp4): 107.2 ml LAV(MOD-bp) Indexed: 35.4 ml/m2 EDV(MOD-sp4): 187.0 ml LAV(MOD-sp2): 86.1 ml EDV(sp4-el): 193.6 ml LAV(MOD-sp4): 77.0 ml LVAs ap4: 28.1 cm2 ESV(MOD-sp4): 79.7 ml ESV(sp4-el): 79.6 ml EF(MOD-sp4): 57.4 % EF(sp4-el): 58.9 % SV(sp4-el): 114.0 ml LA A4 area: 24.6 cm2 LA dimension(2D): 4.4 cm RA A4 area: 15.1 cm2 Doppler Measurements & Calculations MV E max elijah: 72.4 cm/sec Lat Peak E' Elijah: 3.7 cm/sec Med Peak E' Elijah: 5.8 cm/sec MV A max elijah: 107.3 cm/sec E/E' lat: 19.7 E/E' med: 12.5 MV E/A: 0.67 Ao V2 max: 106.8 cm/sec LV V1 max: 96.5 cm/sec PA V2 max: 87.6 cm/sec Ao max P.6 mmHg LV V1 max P.7 mmHg Ao V2 mean: 76.3 cm/sec Ao mean P.6 mmHg Ao V2 VTI: 26.0 cm Interpretation Summary Mildly dilated left ventricle. The estimated ejection fraction is 55 %. Stage 1 diastolic dysfunction. The study was technically difficult. Contrast injection was performed. Compared to previous study, the left ventricular systolic function has improved.. Ordering Physician: Ramesh Siddiqi Referring Physician: Julissa Lamb Performed By: Malu Siddiqi, LAMIN, RVT
== END | disposition home or self-care (01) ==
LOC: CVS 13:55
PROVIDERS: Family Provider Family Medicine; PCP Family Medicine; Referring Provider Nurse Practitioner Family; Visit Provider Nurse Practitioner Family
DX: I25.810 Atherosclerosis of coronary artery bypass graft(s) without angina pectoris (principal); I25.5 Ischemic cardiomyopathy; R06.09 Other forms of dyspnea
CPT/HCPCS: 93306; Q9957; A4216; C8929

== ENCOUNTER → 2019-02-15 11:56 | Outpatient (CLI) | payer MEDICARE, SELFPAY ==
[2017-02-20 12:18] VITALS: BMI 46.4
[2018-12-17 11:05] VITALS: BMI 33.3
[2019-02-15 14:15] LABS: Color, Urine Yellow (Yellow); Glucose, Dipstick Normal (Normal); Ketone-Dipstick Negative (Negative); Leukocyte Esterase-Dipstick 500 /ul (Negative); Nitrite-Dipstick Positive (Negative); Occult Blood-Urine 250 /ul (Negative); Protein-Dipstick 30 mg/dl (Negative); Urine Bilirubin Dipstick Negative (Negative); Urine Clarity Sl. Cloudy (Clear); Urine Urobilinogen Normal (Normal)
== END ==
PROVIDERS: Family Provider Family Medicine; PCP Family Medicine; Referring Provider Family Medicine; Visit Provider Family Medicine
DX: R39.9 Unspecified symptoms and signs involving the genitourinary system (principal)
CPT/HCPCS: 81002; 87086; 87088

== ENCOUNTER 2019-02-20 18:23 | Inpatient (IN) | payer MEDICARE, MEDICAID, SELFPAY ==
[2017-02-20 12:18] VITALS: BMI 46.4
[2018-12-17 11:05] VITALS: BMI 33.3
[2019-02-20] VITALS (22 sets, daily range): BP systolic 76–171; BP diastolic 24–113; PULSE 78–131; RESP 12–60; TEMP 36.3–39.1; O2SAT 93–100; BMI 37.2; BMI 36.1
--- NOTE | 2019-02-20 18:32 | EKG12_ITS ---
Test Reason : Blood Pressure : / mmHG Vent. Rate : 127 BPM Atrial Rate : 127 BPM P-R Int : 114 ms QRS Dur : 096 ms QT Int : 306 ms P-R-T Axes : 042 081 114 degrees QTc Int : 444 ms Sinus tachycardia with occasional Premature ventricular complexes ST & T wave abnormality, consider inferior ischemia Abnormal ECG Confirmed by SHERYL MATTA, ALVARO ([id number]), film editor NEL FERRO ([id number]) on 02/21/2019 3:02:42 PM Referred By: Julissa Lamb Confirmed By:ALVARO SAUCEDO MD
--- NOTE | 2019-02-20 18:50 | RAD_ITS ---
STUDY: X-RAY CHEST REASON FOR EXAM: Male, 68 years old. Shortness of breath TECHNIQUE: AP COMPARISON: 04/17/2018 FINDINGS: EKG leads project over the chest. Patient is rotated. Sternal wires and mediastinal surgical clips compatible with prior CABG. Central pulmonary vascular congestion with interstitial opacities predominantly in the central and basilar lungs new since the prior study. No sizable effusion or pneumothorax. There is mild cardiac enlargement. Normal mediastinum and ita. There is atherosclerotic calcification of the aortic arch with tortuosity. No acute bony process. There is no demonstrated abnormality of the visualized soft tissue structures of the upper abdomen. RAD/Chest 1 View (Portable) IMPRESSION: Unfavorable change. Mild to moderate pulmonary edema. No sizable effusion. Electronically Signed: Kyaw Esparza MD ([place]) at 19:02 EDT , Service support ,
[2019-02-20] MEDS: MethylPREDNISolone 125 MG/2 ML Vial IV (18:54)
[2019-02-20] MEDS: Acetaminophen 500 MG Tablet 1000 MG PO (18:54)
[2019-02-20 18:56] LABS: Absolute Lymphocyte Count 0.85 X10^3/uL (0.83-4.51); Absolute Neutrophil Count 8.6 X10^3/uL (2.0-7.7); Basophil# 0.04 X10^3/uL; Basophil% 0.4 % (0-1); Eosinophil# 0.14 X10^3/uL; Eosinophils% 1.4 % (0-5); Hematocrit 43.3 % (40-54); Hemoglobin 13.8 g/dL (13.0-16.5); Lymphocyte # 0.85 X10^3/ul (4.0); Lymphocyte % 8.6 % (19-41); Mean Corp Hgb Conc 31.9 g/dL (32-36); Mean Corpuscular Hgb 29.1 pg (27.0-32.0); Mean Corpuscular Volume 91.4 fL (80-94); Mean Platelet Vol. 11.3 fl (6.2-12.0); Monocyte# 0.21 X10^3/uL; Monocyte% 2.1 % (0-10); NRBC Flagged by Analyzer 0 % (0-5); Neutrophil # 8.61 X10^3/uL (2.7-7.7); Neutrophil % 87.2 % (47-70); Platelet Count 222 K/mm3 (150-450); RBC Distribution Width CV 13.2 % (11.6-14.6); RBC Distribution Width SD 44.9 fl (35.1-43.9); Red Blood Count 4.74 M/mm3 (4.6-6.2); White Blood Count 9.9 K/mm3 (4.4-11.0)
[2019-02-20] MEDS: Ipratropium/Albuterol Sulfate 3 ML AMPUL.NEB INHALATION (18:58)
[2019-02-20] MEDS: Albuterol 2.5 MG/3 ML VIAL.NEB. INHALATION (18:58)
[2019-02-20 19:12] LABS: Anion Gap 13 (5-15); BUN 18 mg/dL (7-18); BUN/Creat Ratio 13.8 RATIO (10-20); Calcium,Total 8.9 mg/dL (8.5-10.1); Chloride 101 mmol/L (98-107); EST Glomerular Filtration Rate 58 mL/min (>60); Est Glom Filt Rate - Afr Amer 70 mL/min (>60); Estimated Creatinine Clearance 63.23 ml/min; Glucose 294 mg/dL (74-106); Potassium 3.6 mmol/L (3.5-5.1); Sodium Level 140 mmol/L (136-145)
[2019-02-20 19:27] LABS: Lactic Acid 3.8 mmol/L (0.4-2.0)
--- NOTE | 2019-02-20 19:27 | ED.RN ---
LAB CALLED WITH CRITICAL LAB RESULTS. LACTIC ACID 3.8. DR. SIERRA MADE AWARE NO NEW ORDERS AT THIS TIME
[2019-02-20 19:29] LABS: International Normalized Ratio 1.1; Prothrombin Time (Protime)PT. 14.1 SECONDS (11.7-14.9)
[2019-02-20 19:56] LABS: BNP,B-Type NATRIURETIC PEPTIDE 216.5 pg/mL (0-100)
--- NOTE | 2019-02-20 20:08 | HP.PCM_ITS ---
Problem List (1) Severe sepsis Status: Acute (2) COPD exacerbation Status: Acute (3) Pneumonia Status: Acute Qualifiers: Pneumonia type: due to unspecified organism Laterality: bilateral (4) Acute respiratory failure with hypoxia and hypercapnia Status: Acute (5) Hyperlipidemia Status: Chronic Qualifiers: Hyperlipidemia type: unspecified Qualified Code(s): E78.5 - Hyperlipidemia, unspecified (6) Ischemic cardiomyopathy Status: Chronic (7) Acute on chronic systolic (congestive) heart failure Status: Acute (8) Essential (primary) hypertension Status: Chronic (9) Atherosclerosis of coronary artery bypass graft without angina pectoris Status: Chronic Qualifiers: [place] vs. transplanted heart: [place] heart Qualified Code(s): I25.810 - Atherosclerosis of coronary artery bypass graft(s) without angina pectoris Comment: [facility] w/WJE-[id number]-Vqlv LAD w/ 3.0 x 9 mm Resolute Stent (grafts occluded x 3) 02/20/17 (10) H/O coronary artery bypass surgery Status: Resolved Comment: CABG x 3 Radial Artery-LAD, SVG-RCA, SVG-OM2 (11) History of coronary artery stent placement Status: Resolved Comment: [facility] w/RDL-HMQ-Jipe LAD w/ 3.0 x 9 mm Resolute Stent (grafts occluded x 3) 02/20/17 (12) CVA (cerebral vascular accident) Status: Chronic Qualifiers: CVA mechanism: unspecified Qualified Code(s): I63.9 - Cerebral infarction, unspecified Comment: Residual right-sided hemiplegia (13) Osteomyelitis of sacrum Status: Chronic (14) Traumatic brain injury Status: Chronic (15) Intraparenchymal hemorrhage of brain Status: Chronic (16) Tobacco abuse Status: Chronic (17) Alcohol abuse Status: Chronic (18) COPD (chronic obstructive pulmonary disease) Status: Chronic Qualifiers: COPD type: unspecified COPD Qualified Code(s): J44.9 - Chronic obstructive pulmonary disease, unspecified History of Present Illness Date of Admission: 02/20/19 Chief Complaint: Dyspnea, cough, fatigue, malaise, sudden onset this evening. The patient is a 68 y/o M w/ PMHx: Obesity, HTN, HLD, GERD, Diabetes mellitus type II, EtOH Abuse history, Chronic Systolic CHF, Ischemic Cardiomyopathy, CAD s/p CABG x 3, Tobacco use history, Hx osteomyelitis sacrum, Hx CVA w/ R sided hemiplegia w/ prior PEG and chronic suprapubic, Hx ICH w/ Hx TBI, RLS, JIM on BIPAP q HS who presents to the [facility] ED on 02/20/19 with history of becoming acutely short of breath following a short nap with notable coughing over the last 12 to 24 hours but not specifically markedly productive with at that time prior no fevers or chills but notably febrile upon ED presentation, tachycardic and in obvious respiratory distress. In the emergency room patient initially refused ABG and BiPAP however following further discussion with hospitalist was then amenable. Work-up in the ED included T 99.5, heart rate 114, BP 159/75, respiratory rate 39, 98% on a nonrebreather, initially refusing BiPAP or intubation, CBC with WC 9.9, hemoglobin 13.8, platelet 222 with left shift, unremarkable coags, BMP with glucose 294, lactic acid 3.8, troponin less than 0.015, BNP 216.5, culture x2 pending per ED, chest x-ray with mild to moderate pulmonary edema with no sizable effusion, EKG w/ ST with PVCs with subtle ST de pression laterally. In the ED patient missed her Tylenol, DuoNeb, albuterol therapies as well as Solu-Medrol. Discussed concerns with staff and requested Lasix 40 mg IV x1 to be administered in the emergency room. Past Medical History Past Medical History (Chronic Problems): Chronic Problems (Last Reviewed 06/18/18 @ 10:28 by Prashanth Peña MD) COPD with acute exacerbation (Chronic) Hyperlipidemia (Chronic) Ischemic cardiomyopathy (Chronic) Essential (primary) hypertension (Chronic) Atherosclerosis of coronary artery bypass graft without angina pectoris (Chronic) [facility] w/GMX-[id number]-Cgck LAD w/ 3.0 x 9 mm Resolute Stent (grafts occluded x 3) 02/20/17 CVA (cerebral vascular accident) (Chronic) Residual right-sided hemiplegia Osteomyelitis of sacrum (Chronic) Traumatic brain injury (Chronic) Intraparenchymal hemorrhage of brain (Chronic) Subarachnoid hemorrhage (Chronic) Subdural hematoma (Chronic) Intraventricular hemorrhage (Chronic) Tobacco abuse (Chronic) Alcohol abuse (Chronic) Non-ST elevation myocardial infarction (NSTEMI), initial care episode (Chronic) 02/16/17 COPD (chronic obstructive pulmonary disease) (Chronic) Medical History: Medical History (Last Reviewed 06/18/18 @ 10:28 by Prashanth Peña MD) Hyperlipidemia (Chronic) E78.5 Ischemic cardiomyopathy (Chronic) I25.5 Essential (primary) hypertension (Chronic) I10 Acute on chronic systolic (congestive) heart failure (Chronic) I50.23 Atherosclerosis of coronary artery bypass graft without angina pectoris (Chronic) I25.810 [facility] w/JCL-AIX-Razv LAD w/ 3.0 x 9 mm Resolute Stent (grafts occluded x 3) 02/20/17 CVA (cerebral vascular accident) (Chronic) I63.9 Residual right-sided hemiplegia Osteomyelitis of sacrum (Chronic) M46.28 Traumatic brain injury (Chronic) S06.9X9A Intraparenchymal hemorrhage of brain (Chronic) I61.9 Subarachnoid hemorrhage (Chronic) I60.9 Subdural hematoma (Chronic) S06.5X9A Intraventricular hemorrhage (Chronic) I61.5 Tobacco abuse (Chronic) Z72.0 Alcohol abuse (Chronic) F10.10 Non-ST elevation myocardial infarction (NSTEMI), initial care episode (Chronic) I21.4 02/16/17 COPD (chronic obstructive pulmonary disease) (Chronic) J44.9 Dysphagia R13.10 GERD (gastroesophageal reflux disease) K21.9 Morbid obesity E66.01 Nicotine dependence F17.200 RLS (restless legs syndrome) G25.81 Right hemiplegia G81.91 Type 2 diabetes mellitus E11.9 Demand ischemia (Inactive) I24.8 Diabetes mellitus type 2 in obese (Inactive) E11.69, E66.9 Encounter for long-term current use of high risk medication (Inactive) Z79.899 FUO (fever of unknown origin) (Inactive) Former smoker (Inactive) Z87.891 quit February 2017 Hypertensive emergency (Inactive) I16.1 Allergies cilostazol Allergy (Verified 02/20/19 18:38) Hives colestipol Allergy (Verified 02/20/19 18:38) Hives diltiazem Allergy (Verified 02/20/19 18:38) Hives gemfibrozil Allergy (Verified 02/20/19 18:38) Hives naproxen [From Naprosyn] Allergy (Verified 02/20/19 18:38) Hives Nitrate Analogues Allergy (Verified 02/20/19 18:38) Hives Penicillins Allergy (Verified 02/20/19 18:38) Hives procainamide Allergy (Verified 02/20/19 18:38) Hives rosuvastatin Allergy (Verified 02/20/19 18:38) Hives simvastatin Allergy (Verified 02/20/19 18:38) Hives isosorbide Adverse Reaction (Severe, Verified 02/20/19 18:38) Unknown Home Medications: Ambulatory Orders Medication Instructions Recorded Amantadine [Symmetrel] 100 mg PO DAILY 04/17/18 Budesonide [Pulmicort] 0.5 mg IH BID 04/17/18 Fluticasone 0.05% [Flonase Nasal 2 spray NASAL DAILY 04/17/18 [place]] Insulin Lispro [Humalog] 12 unit SUBCUT TIDCM 04/17/18 Metoprolol Tartrate [Lopressor 100 mg PO TID 04/17/18 (beta stepan)] Pantoprazole Sodium [Protonix] 40 mg PO DAILY 04/17/18 Polyethylene Glycol 3350 [Miralax] 17 gm PO DAILY 04/17/18 Pramipexole Di-HCl [Mirapex] 0.25 mg PO QHS 04/17/18 Pravastatin Sodium 80 mg PO QHS 04/17/18 Senna/Docusate Sodium [Senokot-S] 2 tab PO BID 04/17/18 Tamsulosin HCl [Flomax] 0.4 mg PO DAILY 04/17/18 Insulin Lispro [Humalog KwikPen] See Protocol SUBCUT ACHS 04/20/18 insuln.pen furosemide 40 mg tablet 40 mg PO BID tab 06/17/18 potassium chloride ER 20 mEq 20 meq PO DAILY 90 Days #90 tab 06/17/18 tablet,extended release(part/cryst) Fluoxetine [Prozac] 20 mg PO DAILY 02/20/19 Hydroxyzine HCl 25 mg PO Q6H PRN 02/20/19 Insulin Glargine,Hum.rec.anlog 35 unit SUBCUT BID 02/20/19 [Lantus] Nitroglycerin 0.4 mg SL PRN PRN 02/20/19 Surgical History: Surgical History (Last Reviewed 06/18/18 @ 10:28 by Prashanth Peña MD) H/O coronary artery bypass surgery (Resolved) Onset Date: ~2001 Z95.1 CABG x 3 Radial Artery-LAD, SVG-RCA, SVG-OM2 History of coronary artery stent placement (Resolved) Onset Date: 02/20/17 Z95.5 [facility] w/GPI-GYK-Ubfd LAD w/ 3.0 x 9 mm Resolute Stent (grafts occluded x 3) 02/20/17 PEG (percutaneous endoscopic gastrostomy) adjustment/replacement/removal Z43.1 Status post osteotomy Onset Date: 01/2018 Z98.890 Surgical History: angioplasty, coronary bypass surgery - x 3., - - PEG tube with eventual removal, Diverting colostomy, suprapubic catheter. Psychiatric History: Anxiety, Depression Lives: Spouse/ Significant Other Smoking Status: Former smoker Tobacco Use: Non-smoker Alcohol: None Drugs: None - *Family History Maternal Family History: Family History (Last Reviewed 06/18/18 @ 10:28 by Prashanth Peña MD) Brother Heart disease Father Heart disease History Items: - - Alzheimer's dementia. Paternal Family History: Family History (Last Reviewed 06/18/18 @ 10:28 by Prashanth Peña MD) Brother Heart disease Father Heart disease History Items: Heart Disease Review of Systems Constitutional: Reports: Fever, Malaise, Weakness, Fatigue. Denies: Chills, Navdeep ght Change HEENT: Denies: Head Aches, Sinus Congestion, Sinus Drainage Cardiovascular: Denies: Chest Pain, Palpitations Respiratory: Reports: Cough, Shortness of Breath, Shortness of breath at rest, Shortness of breath upon exertion, Wheezing. Denies: Sputum production Gastrointestinal: Denies: Abdominal Pain, Nausea, Vomiting Genitourinary: Reports: - - Chronic suprapubic catheter, coughing with noted urination around catheter per spouse.. Denies: Dysuria Musculoskeletal: Reports: Joint Pain. Denies: Joint Tenderness Skin: Reports: Skin Changes. Denies: Rash, Wounds Neurological: Reports: Confusion, Focal weakness. Denies: Numbness, Tingling Psychiatric: Reports: Anxiety, Depression. Denies: Homicidal Ideations, Suicidal Ideations Hematologic/ Lymphatic: Denies: Easy Bruising, Easy Bleeding VTE Information - Inpt Only VTE Present on Admission: No VTE Mechan Device Prophylaxis: SCD's VTE Pharm Prophylaxis ordered?: Yes Patient Problems: Active and Suspected Problems (Last Reviewed 06/18/18 @ 10:28 by Prashanth Peña MD) Severe sepsis (Acute) COPD exacerbation (Acute) Pneumonia (Acute) Acute respiratory failure with hypoxia and hypercapnia (Acute) Subjective: Patient seated upright in the ED bed, fatigued appearance, increased work of breathing, accessory muscle usage, discussed at length and patient willing for BiPAP trial now, disheveled and foul-smelling. Objective: Physical Examination: General: awake, alert, oriented to self, place, recent events although does have TBI as well as prior CVA, remains cooperative, seated upright in the ED bed, fatigued, ill-appearing, evident respiratory distress, foul-smelling. Skin: normal color, turgor, no icterus, cyanosis except excoriation, chronic stasis, intertrigo. HEENT: AT/NC, EOMI, PERRLA, dry MM, no carotid bruits or JVD noted; however, thickened neck makes examination difficult. Lungs: Diffusely diminished, gurgly, wet and moist sounding, very minimal soft end expiratory wheeze, increased work of breathing, accessory muscle usage, evident distress. Heart: Tachycardic with regular rhythm; no gallop, rub audible. Abdomen: soft, morbidly obese, NTTP, ND, normal but very distant BS, colostomy in place, suprapubic catheter in place, difficult to assess HSM secondary to morbid obese habitus. Extremities: no cyanosis, clubbing, chronic right-sided hemiplegia status post CVA. Neurological: patient awake, alert, oriented as noted; cognitive function improved but still not baseline, TBI history as well as CVA with reduced mental capabilities; pupils equally reactive to light and accomodation; cranial nerves II-XII grossly normal, chronic right-sided hemiplegia status post CVA, strength severely global decrease secondary to acute presentation concurrently. Psychiatric: affect appears fatigued, ill-appearing, no acute evidence of depressive or anxiety feelings. - Physical Exam Vital Signs Temp Pulse Resp BP Pulse Ox 99.5 F H 108 H 39 H 133/69 H 98 02/20/19 20:01 02/20/19 20:01 02/20/19 20:01 02/20/19 20:01 02/20/19 20:01 Oxygen Delivery Method Non-Rebreather Weight: 289 lb 10.998 oz Body Mass Index (BMI) 37.2 Finger Stick Blood Glucose 250 Laboratory Tests Past 24 Hrs 02/20/19 02/20/19 02/20/19 18:34 18:40 18:40 WBC 9.9 RBC 4.74 Hgb 13.8 Hct 43.3 MCV 91.4 MCH 29.1 MCHC 31.9 L RDW Std Deviation 44.9 H RDW Coeff of Sherin 13.2 Plt Count 222 MPV 11.3 Immature Gran % (Auto) 0.300 Neut % (Auto) 87.2 H Lymph % (Auto) 8.6 L [place] % (Auto) 2.1 Eos % (Auto) 1.4 Baso % (Auto) 0.4 Absolute Neuts (auto) 8.6 H Absolute Lymphs (auto) 0.85 Nucleated RBC % 0 PT 14.1 INR 1.1 Sodium Potassium Chloride Carbon Dioxide Anion Gap BUN Creatinine Estim Creat Clear Calc Est GFR (MDRD) Af Amer Est GFR (MDRD) Non-Af BUN/Creatinine Ratio Glucose Lactic Acid Calcium Troponin I B-Natriuretic Peptide 216.5 H 02/20/19 02/20/19 18:40 18:40 WBC RBC Hgb Hct MCV MCH MCHC RDW Std Deviation RDW Coeff of Sherin Plt Count MPV Immature Gran % (Auto) Neut % (Auto) Lymph % (Auto) [place] % (Auto) Eos % (Auto) Baso % (Auto) Absolute Neuts (auto) Absolute Lymphs (auto) Nucleated RBC % PT INR Sodium 140 Potassium 3.6 Chloride 101 Carbon Dioxide 26.0 Anion Gap 13 BUN 18 Creatinine 1.30 Estim Creat Clear Calc 63.23 Est GFR (MDRD) Af Amer 70 Est GFR (MDRD) Non-Af 58 L BUN/Creatinine Ratio 13.8 Glucose 294 H Lactic Acid 3.8 H Calcium 8.9 Troponin I < 0.015 B-Natriuretic Peptide Assessment/Plan All Active Problems (Last Reviewed 06/18/18 @ 10:28 by Prashanth Peña MD) Severe sepsis (Acute) COPD exacerbation (Acute) Pneumonia (Acute) Acute respiratory failure with hypoxia and hypercapnia (Acute) Acute on chronic systolic (congestive) heart failure (Acute) H/O coronary artery bypass surgery (Resolved ~2001) History of coronary artery stent placement (Resolved 02/20/17) Acute respiratory failure with hypoxia and hypercarbia (Resolved) Alcohol intoxication (Resolved) Complicated CAUTI (Resolved) Healthcare associated bacteremia due to Staphylococcus aureus (Resolved) Infected decubitus ulcer (Resolved) Infected decubitus ulcer (Resolved) Multifocal community-acquired pneumonia (Resolved) Right scapula fracture (Resolved) Sepsis (Resolved) Severe sepsis (Resolved) The patient is a 68 y/o M w/ PMHx: Obesity, HTN, HLD, GERD, Diabetes mellitus type II, EtOH Abuse history, Chronic Systolic CHF, Ischemic Cardiomyopathy, CAD s/p CABG x 3, Tobacco use history, Hx osteomyelitis sacrum, Hx CVA w/ R sided hemiplegia w/ prior PEG and chronic suprapubic, Hx ICH w/ Hx TBI, RLS, JIM on BIPAP q HS who presents to the [facility] ED on 02/20/19 with history of becoming acutely short of breath following a short nap with notable coughing over the last 12 to 24 hours but not specifically markedly productive with at that time prior no fevers or chills but notably febrile upon ED presentation, tachycardic and in obvious respiratory distress. (1) Acute Severe Sepsis secondary to Acute Hypoxic and Hypercapnic Respiratory Failure secondary to Acute on COPD exacerbation and ? BL Interstitial PNA versus Acute Decompensated Systolic CHF Exacerbation (#2): Work-up in the ED included T 99.5, heart rate 114, BP 159/75, respiratory rate 39, 98% on a nonrebreather, refusing BiPAP or intubation, CBC with WC 9.9, hemoglobin 13.8, platelet 222 with left shift, unremarkable coags, BMP with glucose 294, lactic acid 3.8, troponin less than 0.015, BNP 216.5, culture x2 pending per ED, chest x-ray with mild to moderate pulmonary edema with no sizable effusion, EKG w/ ST with PVCs with subtle ST depression laterally. Will admit to ICU, will obtain ABG following BiPAP placement which now patient is agreeable, transition to nasal cannula once improved, given examination some concern for volume overload therefore IV Lasix 40 mill grams x1 administered in the ED, difficult situation given severe sepsis presentation but will defer aggressive hydration given concern for volume overload concurrently, trend LA, continue ATC duonebs, PRN albuterol, IV methylprednisolone, IV rocephin and vanc, HOB, IS parameters, pending sputum cultures, respiratory viral panel, urinary antigens. Process Development Chemist consulted, pending, repeat chest x-ray in a.m. (2) Suspected Acute Decompensated Systolic CHF: CXR obtained in the ED w/ mild to moderate pulmonary edema with no effusion with possible underlying pneumonia, ED examination concerning for volume overload, requested patient to be administered IV lasix in the ED, will maintain on cardiac telemetry, obtain cardiac enzyme series, obtain serial EKGs, continue IV lasix diuresis, monitor I/Os, continue medical therapy w/ asa, statin, BB. Will obtain TSH and magnesium level. Most recent ECHO noted 12/29/18 with mildly dilated LV, EF 55%, stage I diastolic dysfunction, compared to prior study LV systolic function improved. PRN morphine to decrease afterload, continue oxygen supplementation, if necessary will position w/ upright position with legs off bed to decrease preload. (3) Diabetes mellitus type II: Hold oral home regimen, continue home insulin regimen, ADA diet, accu checks w/ ISS. (4) CAD: s/p CABG x 3 and PCI, maintain on asa, statin, BB as noted above, not on DANII or ARB. (5) History CVA: Prior CVA with right-sided hemiplegia, prior PEG with dysphagia now transition to regular texture and thin liquid diet with chronic suprapubic catheter, urinalysis pending, noted coughing per with urination around catheter recently, continue on Flomax, PT, OT, speech, case management consultations as noted, wound care also consulted. (6) Hypertension: Continue home regimen including metoprolol, IV Lasix as noted above with hold parameters, PRN hydralazine. (7) Hyperlipidemia: Continue home statin regimen. (8) Morbid Obesity: Weight loss and lifestyle changes encouraged, nutrition consulted. (9) Anxiety and depression: We will continue home Prozac, hydroxyzine regimen. (10) JIM: BIPAP agreement following discussions, has been on prior for JIM, since CVA has been less apt to use. (11) GERD: Continue home PPI. (12) RLS: Continue home Mirapex and amantadine regimen. (13) DVT Prophylaxis: SCDs, Lovenox. (14) CODE status: Discussed CODE status at length including difference between FULL code, DNR-CCA and DNR-CC status. Following discussions about the differences in these status, requested DNR-CCA, no intubation status. Advanced Care Planning Face to Face Time: 18 minutes. Code Visit Inpatient E&M: 52737 Init Hosp L3 Procedures: 72815 Advncd Care Plan 30 Min
--- NOTE | 2019-02-20 20:17 | ED.VISSUMM ---
- ER Visit Summary Date of Service: 02/20/19 Chief Complaint: Shortness of breath History of Present Illness: The patient is a 68 M acute COPD not on home O2. Also CAD, [place], CHF, diabetes, anemia and diastolic dysfunction. Patient is also diabetic. The lower leghe became acutely short of breath today. No chest pain. No hemoptysis. Physical Examination: Older male severe respiratory distress. I discussed both he and his does not want intubated or on any mechanical ventilation. Initial blood pressure one 6/113. Temperature one 2.3. Heart rate 131. 95% on nonrebreather mask. H EENT exam unremarkable. Moist wheeze members. Neck nontender no meningismus. Lungs rales and rhonchi. Story wheezing. Severe respiratory distress. Heart tachycardic no murmur. Abdomen soft and nontender normal bowel sounds no peritoneal signs. Extremities moves all 4 but is weak on the right side from a prior stroke with upper and lower extremities that is not new. He is awake and alert. He is answering questions. He is following commands. Test Results: Chest x-ray is either bilateral interstitial pneumonia or bilateral pulmonary edema. With his fever is alleviated as pneumonia. His BNP is only 216. Troponin is normal. White count of 9. H&H of 13 and 43. No bands. Electrolytes creatinine 1.3. Glucose of 294. Normal gap. Lactic acid elevated 3.8. EKG sinus tachycardia rate of [address] depression in V3 through V6. Urinalysis is pending. Emergency Department Course and Treatment: Repeat exam patient is doing much better after his aerosols and Solu-Medrol. Currently will be treated for severe sepsis. He has been treated with Tylenol for fever. Aerosols and Solu-Medrol. Will be started on Zosyn and vancomycin IV. Treatment Plan: I spoke to the hospitalist will be admitted to the ICU. This is all been discussed with the family. Disposition: Admission Impression: Acute respiratory failure DNR Comfort Care arrest no intubation. Acute exacerbation COPD Bilateral interstitial pneumonia Severe sepsis Fever Critical care time 35 minutes This note was generated with Sitestaration software. It may contain incorrect words, spelling, and punctuation that were not noted in review of the chart prior to signing ED Disposition - Plan for ED Patient: Referrals: Julissa Lamb MD [Primary Care Provider] -
[2019-02-20] MEDS: Ceftriaxone 1 GM/50 ML BAG IV (20:30)
[2019-02-20] MEDS: Furosemide 40 MG/4 ML Vial IV (20:50)
[2019-02-20 22:11] LABS: Magnesium 1.6 mg/dL (1.6-2.6)
[2019-02-20] MEDS: Insulin Lispro 100 UNIT/ML INSULN.PEN SC (22:26)
[2019-02-20] MEDS: Senna/Docusate Sodium 1 Tablet PO (22:27)
[2019-02-20] MEDS: Pravastatin 80 MG Tablet PO (22:27)
[2019-02-20] MEDS: 0.9% NaCl Peripheral Flush Adult/Peds IV (22:28)
[2019-02-20] MEDS: Pramipexole Di-HCl 0.25 MG Tablet PO (22:28)
[2019-02-20 22:50] LABS: Bedside Glucose 345 mg/dL (70-110)
[2019-02-20] MEDS: Nystatin Powder 15gm Bottle 1 APPLIC TOPICAL (22:50)
[2019-02-20 22:51] LABS: Reflex Lactate? Y
--- NOTE | 2019-02-20 23:02 | PHA.PHARE_ITS ---
Consult Pharmacy has been consulted to manage selected antiobiotic: Vancomycin Type of Consult: New start Suspected Infection: Sepsis Prior Doses of Antibiotics Received/Current Regimen: Medications Ceftriaxone Sodium (Rocephin) 1 gm in 50 mls @ 100 mls/hr IV Q24H [facility] Labs: Sodium 140 mmol/L (136-145) 02/20/19 18:40 Potassium 3.6 mmol/L (3.5-5.1) 02/20/19 18:40 Chloride 101 mmol/L (98-107) 02/20/19 18:40 Carbon Dioxide 26.0 mmol/L (21.0-32.0) 02/20/19 18:40 Anion Gap 13 (5-15) 02/20/19 18:40 BUN 18 mg/dL (7-18) 02/20/19 18:40 Creatinine 1.30 mg/dL (0.70-1.30) 02/20/19 18:40 Est GFR (MDRD) Af Amer 70 mL/min (>60) 02/20/19 18:40 Est GFR (MDRD) Non-Af 58 mL/min (>60) L 02/20/19 18:40 BUN/Creatinine Ratio 13.8 RATIO (10-20) 02/20/19 18:40 Glucose 294 mg/dL (74-106) H 02/20/19 18:40 Weight used for dosin.4 kg Estimated Creatinine Clearance: 78.37 Goal Trough: 15-20 mcg/mL Pharmacy Plan for Drug Dosing: Pharmacy Service will continue to monitor and adjust dosing as required. Medications Vancomycin HCl 1,750 mg/ (Sodium Chloride) 535 mls @ 250 mls/hr IV Q12H BULL Discontinued Medications Vancomycin HCl 2,000 mg/ (Sodium Chloride) 540 mls @ 250 mls/hr IV X1 ONE Stop: 02/20/19 22:39 Last Admin: 02/20/19 20:50 Dose: 250 mls/hr Documented by: Follow-Up Labs: Trough Vancomycin Labs to be done on [date and time ordered]: 02/22 @ 4311
[2019-02-20 23:11] LABS: Allen Test POS; Base Excess -2 mmol/L (-2 to +2); Bicarbonate 22.8 mmol/L (22-26); Blood Gas Specimen Type ART; EPAP 10; FI02 40; IPAP 14; PO2 115 mmHG (75-100); RR 12; SITE L Radial; SO2 98 % (95-99); Time Given 2257; Total Carbon Dioxide 24 mmol/L; pCO2 38.8 mmHg (35-45); pH 7.38 (7.35-7.45)
[2019-02-20 23:43] LABS: Lactic Acid 2.2 mmol/L (0.4-2.0)
[2019-02-21] VITALS (37 sets, daily range): BP systolic 95–151; BP diastolic 31–94; PULSE 66–99; RESP 12–28; TEMP 36.4–36.6; O2SAT 17–100
[2019-02-21 03:44] LABS: Absolute Lymphocyte Count 0.36 X10^3/uL (0.83-4.51); Absolute Neutrophil Count 13.9 X10^3/uL (2.0-7.7); Basophil# 0.02 X10^3/uL; Basophil% 0.1 % (0-1); Hematocrit 39.9 % (40-54); Hemoglobin 12.7 g/dL (13.0-16.5); Lymphocyte # 0.36 X10^3/ul (4.0); Lymphocyte % 2.3 % (19-41); Mean Corp Hgb Conc 31.8 g/dL (32-36); Mean Corpuscular Hgb 28.9 pg (27.0-32.0); Mean Corpuscular Volume 90.9 fL (80-94); Mean Platelet Vol. 11.4 fl (6.2-12.0); Monocyte# 0.98 X10^3/uL; Monocyte% 6.4 % (0-10); NRBC Flagged by Analyzer 0 % (0-5); Neutrophil % 90.8 % (47-70); POSITIVE DIFFERENTIAL YES; POSITIVE MORPHOLOGY YES; Platelet Count 202 K/mm3 (150-450); RBC Distribution Width CV 13.2 % (11.6-14.6); RBC Distribution Width SD 44.4 fl (35.1-43.9); Red Blood Count 4.39 M/mm3 (4.6-6.2); White Blood Count 15.3 K/mm3 (4.4-11.0)
[2019-02-21 03:49] LABS: Differential Indicated SCAN CRITERIA MET
[2019-02-21 04:12] LABS: Mucous, Urine 0 SEEN /hpf (<or=2+); Squamous Epithelial Cells - UA 0 SEEN /hpf (0-5)
[2019-02-21 04:12] LABS: Anion Gap 11 (5-15); BUN 21 mg/dL (7-18); BUN/Creat Ratio 17.8 RATIO (10-20); Calcium,Total 8.6 mg/dL (8.5-10.1); Chloride 105 mmol/L (98-107); Creatinine, Serum 1.18 mg/dL (0.70-1.30); EST Glomerular Filtration Rate 65 mL/min (>60); Est Glom Filt Rate - Afr Amer 79 mL/min (>60); Estimated Creatinine Clearance 69.66 ml/min; Glucose 315 mg/dL (74-106); Potassium 3.9 mmol/L (3.5-5.1); Sodium Level 142 mmol/L (136-145)
[2019-02-21 04:16] LABS: Color, Urine Brown (Yellow); Glucose, Dipstick 250 mg/dl (Normal); Ketone-Dipstick 5 mg/dl (Negative); Leukocyte Esterase-Dipstick 500 /ul (Negative); Nitrite-Dipstick Positive (Negative); Occult Blood-Urine 250 /ul (Negative); Protein-Dipstick 100 mg/dl (Negative); Specific Gravity, Urine 1.015 (1.002-1.030); Urine Bilirubin Dipstick Negative (Negative); Urine Clarity Cloudy (Clear); Urine Urobilinogen Normal (Normal)
[2019-02-21 04:18] LABS: Differential Comment SCANNED; Toxic Granulation 1+
[2019-02-21 04:33] LABS: Bacteria 2+ /hpf (None Seen); Red Blood Cells-Urine > 100 SEEN /hpf (0-5); White Blood Cells >100 SEEN /hpf (0-5)
[2019-02-21] MEDS: Metoprolol Tartrate 100 MG Tablet PO ×3 (05:53→21:40)
[2019-02-21] MEDS: Nystatin Powder 15gm Bottle 1 APPLIC TOPICAL ×3 (05:55→21:41)
--- NOTE | 2019-02-21 05:55 | EKG12_ITS ---
Test Reason : AM EKG Blood Pressure : / mmHG Vent. Rate : 075 BPM Atrial Rate : 075 BPM P-R Int : 166 ms QRS Dur : 106 ms QT Int : 442 ms P-R-T Axes : 068 059 127 degrees QTc Int : 493 ms Normal sinus rhythm ST & T wave abnormality, consider anterolateral ischemia Prolonged QT Abnormal ECG Confirmed by SANDRA MATTA, ANTONY ([id number]), food editor CJ DURÁN ([id number]) on 02/23/2019 2:34:26 PM Referred By: Julissa Lamb Confirmed By:ANTONY FLORES MD
--- NOTE | 2019-02-21 05:55 | RAD_ITS ---
STUDY: X-RAY CHEST REASON FOR EXAM: Male, 68 years old. Fever. TECHNIQUE: Single AP portable view of the chest. COMPARISON: Comparison is made with prior examination dated February 20, 2019. FINDINGS: EKG electrodes are seen. The lungs are now clear. There is no demonstrated pleural abnormality. Sternal cerclage wires and vascular clips are present from a prior sternotomy and coronary artery bypass graft procedure (CABG). Normal mediastinum and ita. Normal visualized pulmonary arteries. There is atherosclerotic calcification of the aortic arch with tortuosity. Normal visualized thoracic spine. Normal visualized ribs, clavicles, and shoulders. There is no demonstrated abnormality of the visualized soft tissue structures of the upper abdomen. RAD/Chest 1 View (Portable) IMPRESSION: The lungs are clear. Electronically Signed: Bakari Briggs, at 8:59 EDT , Service support ,
[2019-02-21] MEDS: Ipratropium/Albuterol Sulfate 3 ML AMPUL.NEB INHALATION ×4 (07:05→18:50)
--- NOTE | 2019-02-21 08:11 | NURSING ---
Was asked to see patient for leaking around the suprapubic catheter. the insertion site for the suprapubic cath is in the abdominal fold. would not be able to pouch around this tube. the split gauze around the suprapubic catheter is dry, but the attends is soaked. patient states that he often feels like he needs to pee and bears down and feels urine come from his penis. unable to tell where the urine is coming from at this time. patient attempted to bear down. no urine noted from penis and no leakage noted from around the suprapubic cath. will need to monitor. may need a urology consult. 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 assessed this area with CAMILA Pineda. wound is healed except for a small pinhole area. no drainage noted. no redness noted. patient is on a strict turn schedule. colostomy appliance was removed. there was a small amount of soft formed stool noted in the appliance. peristomal skin is intact. stoma sits just above the skin level. stoma is pink and moist. measures approx 1 3/8 in diameter. cleansed peristomal skin with warm water. pat dry. applied a new 2 piece flat [place] appliance with a small amount of stoma paste. pt tolerated well. will continue to follow patient.
[2019-02-21] MEDS: Insulin Lispro 100 UNIT/ML INSULN.PEN 12 UNIT SC ×3 (08:54→16:52)
[2019-02-21] MEDS: Insulin Lispro 100 UNIT/ML INSULN.PEN SC ×4 (08:54→21:41)
[2019-02-21] MEDS: Aspirin 81 MG TAB.CHEW PO (08:55)
[2019-02-21] MEDS: FLUoxetine 20 MG Capsule PO (08:55)
[2019-02-21] MEDS: Tamsulosin HCl 0.4 MG Capsule PO (08:56)
[2019-02-21] MEDS: Furosemide 40 MG/4 ML Vial IV ×2 (08:57→16:53)
[2019-02-21] MEDS: Enoxaparin 40 MG/0.4 ML Syringe SC (08:57)
[2019-02-21] MEDS: Pantoprazole Sodium 40 MG Tablet PO (08:58)
[2019-02-21] MEDS: Polyethylene Glycol 3350 17 GM PACKET PO (08:58)
[2019-02-21] MEDS: Amantadine 100 MG Capsule PO (08:59)
--- NOTE | 2019-02-21 09:21 | PCM.CON.CC ---
Problem List (1) Chronic suprapubic catheter Status: Chronic (2) Recurrent UTI (urinary tract infection) Status: Acute (3) Severe sepsis Status: Acute (4) Acute respiratory failure with hypoxia and hypercapnia Status: Acute (5) Hyperlipidemia Status: Chronic Qualifiers: Hyperlipidemia type: unspecified Qualified Code(s): E78.5 - Hyperlipidemia, unspecified (6) Ischemic cardiomyopathy Status: Chronic (7) Essential (primary) hypertension Status: Chronic (8) Acute on chronic systolic (congestive) heart failure Status: Acute (9) Atherosclerosis of coronary artery bypass graft without angina pectoris Status: Chronic Qualifiers: [place] vs. transplanted heart: [place] heart Qualified Code(s): I25.810 - Atherosclerosis of coronary artery bypass graft(s) without angina pectoris Comment: [facility] w/[id number] LAD w/ 3.0 x 9 mm Resolute Stent (grafts occluded x 3) 02/20/17 (10) H/O coronary artery bypass surgery Status: Resolved Comment: CABG x 3 Radial Artery-LAD, SVG-RCA, SVG-OM2 (11) History of coronary artery stent placement Status: Resolved Comment: [facility] w/[id number] LAD w/ 3.0 x 9 mm Resolute Stent (grafts occluded x 3) 02/20/17 (12) CVA (cerebral vascular accident) Status: Chronic Qualifiers: CVA mechanism: unspecified Qualified Code(s): I63.9 - Cerebral infarction, unspecified Comment: Residual right-sided hemiplegia (13) Traumatic brain injury Status: Chronic (14) Intraparenchymal hemorrhage of brain Status: Chronic (15) COPD (chronic obstructive pulmonary disease) Status: Chronic Qualifiers: COPD type: unspecified COPD Qualified Code(s): J44.9 - Chronic obstructive pulmonary disease, unspecified Reason for Consult Date of Consultation: 02/21/19 Reason for Consultation: Respiratory failure History of Present Illness: The patient is a 68 year old M, with past medical history listed below, who presented to [facility] on 02/20/2019 secondary to severe respiratory distress. Patient reportedly had not been feeling well for approximately 1 week. However, on the day of presentation, patient was noted to have severe respiratory distress. Patient had had paroxysmal type coughing that was not specifically productive. Patient reported no fevers at home, but presented to the emergency department with a temperature of 39.1 ?C. On presentation to the ER, patient was noted to be febrile and in significant respiratory distress. Patient had an ABG on BiPAP therapy that was acceptable. Patient had been refusing intubation, but eventually did respond to BiPAP. Chest x-ray did show moderate pulmonary edema bilaterally. Patient was given duo nebs, Lasix and Solu-Medrol and transferred to the intensive care unit for further monitoring. Patient did receive Zosyn in the ER. In the intensive care unit, patient responded well to BiPAP therapy and respiratory distress continued to improve throughout the evening. Patient did have blood cultures come back positive for gram-negative rods. Patient is able to be weaned to his baseline 2 L nasal cannula. No pressors were required overnight. Blood pressure has remained stable. Patient does report that his suprapubic catheter has been leaking for approximately 1 week. Patient states he has had a sensation of needing to urinate and has attempted to urinate to relieve suprapubic discomfort. Patient does have a colostomy secondary to a history of decubitus ulcer. Patient has had significant improvement in overall condition and reportedly is to go through a revision in the near future. Patient has had multiple hospitalizations in the last 6 to 12 months. Patient does have residual right-sided weakness secondary to her previous stroke. Patient typically uses CPAP at home for obstructive sleep apnea. Patient is no longer smoking. Patient is reporting a good appetite this morning. Past Medical History Past Medical History (Chronic Problems): Chronic Problems (Last Reviewed 06/18/18 @ 10:28 by Prashanth Peña MD) COPD with acute exacerbation (Chronic) Chronic suprapubic catheter (Chronic) Hyperlipidemia (Chronic) Ischemic cardiomyopathy (Chronic) Essential (primary) hypertension (Chronic) Atherosclerosis of coronary artery bypass graft without angina pectoris (Chronic) [facility] w/[id number] LAD w/ 3.0 x 9 mm Resolute Stent (grafts occluded x 3) 02/20/17 CVA (cerebral vascular accident) (Chronic) Residual right-sided hemiplegia Osteomyelitis of sacrum (Chronic) Traumatic brain injury (Chronic) Intraparenchymal hemorrhage of brain (Chronic) Subarachnoid hemorrhage (Chronic) Subdural hematoma (Chronic) Intraventricular hemorrhage (Chronic) Tobacco abuse (Chronic) Alcohol abuse (Chronic) Non-ST elevation myocardial infarction (NSTEMI), initial care episode (Chronic) 02/16/17 COPD (chronic obstructive pulmonary disease) (Chronic) Medical History: Medical History (Last Reviewed 06/18/18 @ 10:28 by Prashanth Peña MD) Hyperlipidemia (Chronic) E78.5 Ischemic cardiomyopathy (Chronic) I25.5 Essential (primary) hypertension (Chronic) I10 Acute on chronic systolic (congestive) heart failure (Acute) I50.23 Atherosclerosis of coronary artery bypass graft without angina pectoris (Chronic) I25.810 [facility] w/[id number] LAD w/ 3.0 x 9 mm Resolute Stent (grafts occluded x 3) 02/20/17 CVA (cerebral vascular accident) (Chronic) I63.9 Residual right-sided hemiplegia Osteomyelitis of sacrum (Chronic) M46.28 Traumatic brain injury (Chronic) S06.9X9A Intraparenchymal hemorrhage of brain (Chronic) I61.9 Subarachnoid hemorrhage (Chronic) I60.9 Subdural hematoma (Chronic) S06.5X9A Intraventricular hemorrhage (Chronic) I61.5 Tobacco abuse (Chronic) Z72.0 Alcohol abuse (Chronic) F10.10 Non-ST elevation myocardial infarction (NSTEMI), initial care episode (Chronic) I21.4 02/16/17 COPD (chronic obstructive pulmonary disease) (Chronic) J44.9 Dysphagia R13.10 GERD (gastroesophageal reflux disease) K21.9 Morbid obesity E66.01 Nicotine dependence F17.200 RLS (restless legs syndrome) G25.81 Right hemiplegia G81.91 Type 2 diabetes mellitus E11.9 Demand ischemia (Inactive) I24.8 Diabetes mellitus type 2 in obese (Inactive) E11.69, E66.9 Encounter for long-term current use of high risk medication (Inactive) Z79.899 FUO (fever of unknown origin) (Inactive) Former smoker (Inactive) Z87.891 quit February 2017 Hypertensive emergency (Inactive) I16.1 Allergies cilostazol Allergy (Verified 02/20/19 18:38) Hives colestipol Allergy (Verified 02/20/19 18:38) Hives diltiazem Allergy (Verified 02/20/19 18:38) Hives gemfibrozil Allergy (Verified 02/20/19 18:38) Hives naproxen [From Naprosyn] Allergy (Verified 02/20/19 18:38) Hives Nitrate Analogues Allergy (Verified 02/20/19 18:38) Hives Penicillins Allergy (Verified 02/20/19 18:38) Hives procainamide Allergy (Verified 02/20/19 18:38) Hives rosuvastatin Allergy (Verified 02/20/19 18:38) Hives simvastatin Allergy (Verified 02/20/19 18:38) Hives isosorbide Adverse Reaction (Severe, Verified 02/20/19 18:38) Unknown Home Medications: Ambulatory Orders Medication Instructions Recorded Amantadine [Symmetrel] 100 mg PO DAILY 04/17/18 Budesonide [Pulmicort] 0.5 mg IH BID 04/17/18 Fluticasone 0.05% [Flonase Nasal 2 spray NASAL DAILY 04/17/18 [place]] Insulin Lispro [Humalog] 12 unit SUBCUT TIDCM 04/17/18 Metoprolol Tartrate [Lopressor 100 mg PO TID 04/17/18 (beta stepan)] Pantoprazole Sodium [Protonix] 40 mg PO DAILY 04/17/18 Polyethylene Glycol 3350 [Miralax] 17 gm PO DAILY 04/17/18 Pramipexole Di-HCl [Mirapex] 0.25 mg PO QHS 04/17/18 Pravastatin Sodium 80 mg PO QHS 04/17/18 Senna/Docusate Sodium [Senokot-S] 2 tab PO BID 04/17/18 Tamsulosin HCl [Flomax] 0.4 mg PO DAILY 04/17/18 Insulin Lispro [Humalog KwikPen] See Protocol SUBCUT ACHS 04/20/18 insuln.pen furosemide 40 mg tablet 40 mg PO BID tab 06/17/18 potassium chloride ER 20 mEq 20 meq PO DAILY 90 Days #90 tab 06/17/18 tablet,extended release(part/cryst) Fluoxetine [Prozac] 20 mg PO DAILY 02/20/19 Hydroxyzine HCl 25 mg PO Q6H PRN 02/20/19 Insulin Glargine,Hum.rec.anlog 35 unit SUBCUT BID 02/20/19 [Lantus] Nitroglycerin 0.4 mg SL PRN PRN 02/20/19 Surgical History: Surgical History (Last Reviewed 02/21/19 @ 07:33 by Miriam Castro) H/O coronary artery bypass surgery (Resolved) Onset Date: ~2001 Z95.1 CABG x 3 Radial Artery-LAD, SVG-RCA, SVG-OM2 History of coronary artery stent placement (Resolved) Onset Date: 02/20/[address] [facility] w/[id number] LAD w/ 3.0 x 9 mm Resolute Stent (grafts occluded x 3) 02/20/17 PEG (percutaneous endoscopic gastrostomy) adjustment/replacement/removal Z43.1 Status post osteotomy Onset Date: 01/2018 Z98.890 Surgical History: angioplasty, coronary bypass surgery - x 3., - - PEG tube with eventual removal, Diverting colostomy, suprapubic catheter. Psychiatric History: Anxiety, Depression Lives: Spouse/ Significant Other Smoking Status: Former smoker Tobacco Use: Non-smoker Alcohol: None Drugs: None - *Family History Maternal Family History: Family History (Last Reviewed 06/18/18 @ 10:28 by Prashanth Peña MD) Brother Heart disease Father Heart disease History Items: - - Alzheimer's dementia. Paternal Family History: Family History (Last Reviewed 06/18/18 @ 10:28 by Prashanth Peña MD) Brother Heart disease Father Heart disease History Items: Heart Disease Review of Systems Constitutional: Reports: Chills, Fever. Denies: Anorexia, Weakness, Weight Change Eyes: Denies: Blurred vision, Cataracts, Double vision, Eyelid Inflammation HEENT: Reports: Nasal Congestion. Denies: Difficulty Hearing, Ear Pain, Nasal bleeding, Post Nasal Drip Cardiovascular: Reports: Edema. Denies: Chest Pain, Claudication, Chest Pressure Respiratory: Reports: Cough, Shortness of breath upon exertion. Denies: Pleuritic Pain, Sputum production Gastrointestinal: Reports: Abdominal Pain. Denies: Diarrhea, Hematemesis, Vomiting Genitourinary: Reports: Dysuria Musculoskeletal: Denies: Back Pain, Joint stiffness, Joint swelling, Joint Tenderness Skin: Denies: Dryness, Jaundice, Pruritis Neurological: Denies: Double vision, Change in Speech, Tremor, Seizures Psychiatric: Denies: Anxiety, Depression, Homicidal Ideations, Suicidal Ideations Endocrine: Denies: Change in Body Habitus, Polydipsia Hematologic/ Lymphatic: Denies: Adenopathy, Easy Bruising, Easy Bleeding Patient Problems: Active and Suspected Problems (Last Reviewed 06/18/18 @ 10:28 by Prashanth Peña MD) Severe sepsis (Acute) COPD exacerbation (Acute) Pneumonia (Acute) Acute respiratory failure with hypoxia and hypercapnia (Acute) Recurrent UTI (urinary tract infection) (Acute) Objective: Chest x-ray was personally reviewed and shows no acute infiltrates. - Physical Exam General: Alert, Oriented x3, Cooperative, - - No conversational dyspnea. Obese. HEENT: Atraumatic, PERRLA, EOMI, Normocephalic, - - No scleral icterus or injection noted. Oral: No Gingival or Mucosal Lesions/ Ulcerations, Dry Mucosa Neck: Supple, No Nodes, Trachea Midline, JVD, Right Lungs: No rhonchi, No wheeze, No rales, Diminished, - - Symmetric expansion. No dullness to percussion. Cardiovascular: Regular rate, Regular Rhythm, Normal S1, Normal S2, Murmur - Rate 2 out of 6 systolic ejection murmur at the right sternal border, No rub noted, No Gallop Abdomen: Bowel Sounds Present, Soft, Non Tender, Distended - Slightly, Obese, - - Ostomy and suprapubic catheter. Suprapubic catheter with urine leakage around Skin: No rashes Musculoskeletal: No Tenderness to Palpation of Joints or Extremities Lymphatic: No Cervical, Supraclavicular, or Inguinal Adenopathy Neurological: - - Right sided weakness noted. Sensation appears to be intact. Pupils are equal round and reactive to light. Psych/Mental Status: Alert and oriented to time, place, person, mood and affect Vital Signs Temp Pulse Resp BP Pulse Ox 36.4 C L 76 23 H 118/45 L 96 02/21/19 08:00 02/21/19 08:00 02/21/19 08:00 02/21/19 08:00 02/21/19 08:00 Oxygen Flow Rate (L/min) 2 Oxygen Delivery Method Nasal Cannula Weight: 127.4 kg Body Mass Index (BMI) 36.1 Finger Stick Blood Glucose 250 Intake and Output for Last 24 Hours 02/19/19 02/20/19 02/21/19 23:59 23:59 23:59 Intake Total 640 / 760 120 / 120 Output Total 60 / 60 Balance 640 / 740 60 / 60 Microbiology Past 72 Hours 02/20/19 18:50 Blood Culture - Preliminary Blood Culture (Wb) - Venous 02/20/19 23:20 Legionella Antigen - Final Urine Catheter - Catheter 02/20/19 23:20 Streptococcus pneumoniae Antigen (M - Final Urine Catheter - Catheter Laboratory Tests Past 24 Hrs 02/20/19 02/20/19 02/20/19 18:34 18:40 18:40 WBC 9.9 RBC 4.74 Hgb 13.8 Hct 43.3 MCV 91.4 MCH 29.1 MCHC 31.9 L RDW Std Deviation 44.9 H RDW Coeff of Sherin 13.2 Plt Count 222 MPV 11.3 Immature Gran % (Auto) 0.300 Neut % (Auto) 87.2 H Lymph % (Auto) 8.6 L Mchen[place] % (Auto) 2.1 Eos % (Auto) 1.4 Baso % (Auto) 0.4 Absolute Neuts (auto) 8.6 H Absolute Lymphs (auto) 0.85 Nucleated RBC % 0 Differential Comment Toxic Granulation PT 14.1 INR 1.1 Specimen Type Sample Site pH Bicarbonate Actual POC Total CO2 Base Excess O2 Saturation O2 % ABG pCO2 ABG pO2 Dejon Test Respiration Rate O2 Delivery Device EPAP IPAP Blood Gas Notified Whom Blood Gas Notified Time Sodium Potassium Chloride Carbon Dioxide Anion Gap BUN Creatinine Estim Creat Clear Calc Est GFR (MDRD) Af Amer Est GFR (MDRD) Non-Af BUN/Creatinine Ratio Glucose Lactic Acid Calcium Magnesium Troponin I B-Natriuretic Peptide 216.5 H Urine Color Urine Clarity Urine pH Ur Specific [place] Urine Protein Urine Glucose (UA) Urine Ketones Urine Occult Blood Urine Nitrite Urine Bilirubin Urine Urobilinogen Ur Leukocyte Esterase Urine RBC Urine WBC Ur Squamous Epith Cells Urine Bacteria Urine Mucus 02/20/19 02/20/19 02/20/19 18:40 18:40 18:40 WBC RBC Hgb Hct MCV MCH MCHC RDW Std Deviation RDW Coeff of Sherin Plt Count MPV Immature Gran % (Auto) Neut % (Auto) Lymph % (Auto) Mchen[place] % (Auto) Eos % (Auto) Baso % (Auto) Absolute Neuts (auto) Absolute Lymphs (auto) Nucleated RBC % Differential Comment Toxic Granulation PT INR Specimen Type Sample Site pH Bicarbonate Actual POC Total CO2 Base Excess O2 Saturation O2 % ABG pCO2 ABG pO2 Dejon Test Respiration Rate O2 Delivery Device EPAP IPAP Blood Gas Notified Whom Blood Gas Notified Time Sodium 140 Potassium 3.6 Chloride 101 Carbon Dioxide 26.0 Anion Gap 13 BUN 18 Creatinine 1.30 Estim Creat Clear Calc 63.23 Est GFR (MDRD) Af Amer 70 Est GFR (MDRD) Non-Af 58 L BUN/Creatinine Ratio 13.8 Glucose 294 H Lactic Acid 3.8 H Calcium 8.9 Magnesium 1.6 Troponin I < 0.015 B-Natriuretic Peptide Urine Color Urine Clarity Urine pH Ur Specific [place] Urine Protein Urine Glucose (UA) Urine Ketones Urine Occult Blood Urine Nitrite Urine Bilirubin Urine Urobilinogen Ur Leukocyte Esterase Urine RBC Urine WBC Ur Squamous Epith Cells Urine Bacteria Urine Mucus 02/20/19 02/20/19 02/20/19 22:45 22:45 23:03 WBC RBC Hgb Hct MCV MCH MCHC RDW Std Deviation RDW Coeff of Sherin Plt Count MPV Immature Gran % (Auto) Neut % (Auto) Lymph % (Auto) [place] % (Auto) Eos % (Auto) Baso % (Auto) Absolute Neuts (auto) Absolute Lymphs (auto) Nucleated RBC % Differential Comment Toxic Granulation PT INR Specimen Type ART Sample Site L Radial pH 7.38 Bicarbonate Actual 22.8 POC Total CO2 24 Base Excess -2 O2 Saturation 98 O2 % 40 ABG pCO2 38.8 ABG pO2 115 H Dejon Test POS Respiration Rate 12 O2 Delivery Device Bi / C PAP EPAP 10 IPAP 14 Blood Gas Notified Whom HOSP Blood Gas Notified Time 2257 Sodium Potassium Chloride Carbon Dioxide Anion Gap BUN Creatinine Estim Creat Clear Calc Est GFR (MDRD) Af Amer Est GFR (MDRD) Non-Af BUN/Creatinine Ratio Glucose Lactic Acid Cancelled 2.2 H Calcium Magnesium Troponin I B-Natriuretic Peptide Urine Color Urine Clarity Urine pH Ur Specific [place] Urine Protein Urine Glucose (UA) Urine Ketones Urine Occult Blood Urine Nitrite Urine Bilirubin Urine Urobilinogen Ur Leukocyte Esterase Urine RBC Urine WBC Ur Squamous Epith Cells Urine Bacteria Urine Mucus 02/20/19 02/21/19 02/21/19 23:20 00:05 03:10 WBC 15.3 H RBC 4.39 L Hgb 12.7 L Hct 39.9 L MCV 90.9 MCH 28.9 MCHC 31.8 L RDW Std Deviation 44.4 H RDW Coeff of Sherin 13.2 Plt Count 202 MPV 11.4 Immature Gran % (Auto) 0.400 Neut % (Auto) 90.8 H Lymph % (Auto) 2.3 L [place] % (Auto) 6.4 Eos % (Auto) 0.0 Baso % (Auto) 0.1 Absolute Neuts (auto) 13.9 H Absolute Lymphs (auto) 0.36 L Nucleated RBC % 0 Differential Comment SCANNED Toxic Granulation 1+ PT INR Specimen Type Sample Site pH Bicarbonate Actual POC Total CO2 Base Excess O2 Saturation O2 % ABG pCO2 ABG pO2 Dejon Test Respiration Rate O2 Delivery Device EPAP IPAP Blood Gas Notified Whom Blood Gas Notified Time Sodium Potassium Chloride Carbon Dioxide Anion Gap BUN Creatinine Estim Creat Clear Calc Est GFR (MDRD) Af Amer Est GFR (MDRD) Non-Af BUN/Creatinine Ratio Glucose Lactic Acid Calcium Magnesium Troponin I 0.389 H B-Natriuretic Peptide Urine Color Brown Urine Clarity Cloudy Urine pH 6.0 Ur Specific [place] 1.015 Urine Protein 100 H Urine Glucose (UA) 250 H Urine Ketones 5 H Urine Occult Blood 250 H Urine Nitrite Positive H Urine Bilirubin Negative Urine Urobilinogen Normal Ur Leukocyte Esterase 500 H Urine RBC > 100 SEEN Urine WBC >100 SEEN Ur Squamous Epith Cells 0 SEEN Urine Bacteria 2+ Urine Mucus 0 SEEN 02/21/19 02/21/19 02/21/19 03:10 03:10 06:10 WBC RBC Hgb Hct MCV MCH MCHC RDW Std Deviation RDW Coeff of Sherin Plt Count MPV Immature Gran % (Auto) Neut % (Auto) Lymph % (Auto) [place] % (Auto) Eos % (Auto) Baso % (Auto) Absolute Neuts (auto) Absolute Lymphs (auto) Nucleated RBC % Differential Comment Toxic Granulation PT INR Specimen Type Sample Site pH Bicarbonate Actual POC Total CO2 Base Excess O2 Saturation O2 % ABG pCO2 ABG pO2 Dejon Test Respiration Rate O2 Delivery Device EPAP IPAP Blood Gas Notified Whom Blood Gas Notified Time Sodium 142 Potassium 3.9 Chloride 105 Carbon Dioxide 26.0 Anion Gap 11 BUN 21 H Creatinine 1.18 Estim Creat Clear Calc 69.66 Est GFR (MDRD) Af Amer 79 Est GFR (MDRD) Non-Af 65 BUN/Creatinine Ratio 17.8 Glucose 315 H Lactic Acid Calcium 8.6 Magnesium Troponin I 0.350 H 0.312 H B-Natriuretic Peptide Urine Color Urine Clarity Urine pH Ur Specific [place] Urine Protein Urine Glucose (UA) Urine Ketones Urine Occult Blood Urine Nitrite Urine Bilirubin Urine Urobilinogen Ur Leukocyte Esterase Urine RBC Urine WBC Ur Squamous Epith Cells Urine Bacteria Urine Mucus POC Glucose 02/20/19 22:24 POC Glucose 345 H Clinical Impression(s) from Imaging Studies Chest X-Ray 02/20/19 18:50 IMPRESSION: Unfavorable change. Mild to moderate pulmonary edema. No sizable effusion. Electronically Signed: Kyaw Esparza MD ([place]) at 19:02 EDT , Service support , Chest X-Ray 02/21/19 05:55 IMPRESSION: The lungs are clear. Electronically Signed: Bakari Wilsoncelestino, at 8:59 EDT , Service support , Assessment/Plan Active and Suspected Problems (Last Reviewed 06/18/18 @ 10:28 by Prashanth Peña MD) Severe sepsis (Acute) COPD exacerbation (Acute) Pneumonia (Acute) Acute respiratory failure with hypoxia and hypercapnia (Acute) Recurrent UTI (urinary tract infection) (Acute) RECOMMENDATIONS: 1. Transition to broad-spectrum gram-negative coverage 2. BiPAP breaks as tolerated 3. Monitor intensive care unit, may need pressors 4. Agree with mild diuresis, but would hold 24 to 48 hours 5. Consult urology for suprapubic cath recommendations IMPRESSIONS: 1. Severe sepsis secondary to probable UTI secondary to suprapubic catheter Patient with gram-negative in the blood. Clinical suspicion for urinary source given urinalysis results and chronic leaking. Patient has had multiple antibiotics in the past and should be placed on broad-spectrum gram-negative coverage. Patient may have deterioration of blood pressure following appropriate antibiotics. Will monitor in the intensive care unit. Patient does have an elevation of creatinine from baseline. 2. Acute on chronic combined respiratory failure secondary to probable acute on chronic decompensated systolic CHF Clinical suspicion for worsening respiratory status secondary to a failure to compensate for increased metabolic demand of severe sepsis. Patient appears to be doing much better at this time. We will hold off on BiPAP as tolerated during the day. Supplemental oxygen to keep saturations greater than 90% at all times. Patient's troponin is consistent with supply demand mismatch secondary to hypoxemia. 3. Acute kidney injury Patient's baseline creatinine appears to be approximately 0.5 and presented with a creatinine of approximately 1.2. Patient has good urine output at this time. Patient does have some leaking around suprapubic catheter so doubt obstructive uropathy. Will have urology come and evaluate. 4. Diabetes mellitus type 2 Oral regimen is held for this time. Patient currently on steroid therapy, so this will need to be followed closely. Likely discontinue steroids tomorrow if patient's respiratory status continues to improve. 5. CAD/history of CVA/hypertension/hyperlipidemia/obesity/anxiety/depression/JIM Complicates care, management, recovery and prognosis. Reasonable to continue with BiPAP therapy while an inpatient as this will decrease his respiratory effort. Patient will likely continue with CPAP at home. Okay to continue with other baseline medications as long as hold parameters are placed. Code Visit Inpatient E&M: 33261 Init Hosp L3
--- NOTE | 2019-02-21 09:50 | CASEMGMT ---
RN CM Assessment Presentation: COPD exacerbation, Sepsis likely due to UTI. Hx: colostomy, suprapubic catheter Intro role of CM and purpose of RN CM assessment. Pt is alert, able to partcipate in assessment. present, she is caregiver and also LYDIA Barth participated. Demographics, PCP and Pharmacy verified. Pt discharge from [facility] in January, after approximately 9 month SNF stay. Home Health on dc. Pt goes to [facility]. Per they are managing care @ home with [facility]. Discussed PT/OT evaluations will be completed and CM will continue to participate in dc planning. PCP: Dr. Lamb Specialists: Dr. Peña, cardiology; Dr. Esteban, Urology Preferred Pharmacy: [facility] Insurance: [facility] and [facility] Community Plan Prescription Benefit: yes LNOK: , Farideh Vargas; LYDIA Santanan Vargas (RN, works@ [email or web address]) Living Arrangements: Lives in one story Home, two steps into home with handrails on both sides. Pt requires assistance transferring and with bathing, dressing. Is able to brush own teeth, shave. is available to assist at home and states she steadies him with ambulation. He uses walker for ambulation. Transportation: drives DME: Hospital Bed, Walker with arm support, Juan walker, BSC (does not use as he has colostomy and suprapubic cath), shower bench for tub/shower, grab bars in shower, wheelchair, Cpap. (No oxygen use at homeprior to admission) HHC: [facility] - called to notify pt is in Hospital. Current services: RN, PT/OT, aide CONTRERAS Consult: Pt may need SNF on dc. Requested review of used MCR days and availability for TCU/SWCC. CONTRERAS Beaver updated Patient DC goals: Home with HHS, but if recommended- pt is agreeable to TCU or SWCC on dc. DC PLAN: undetermined. PT/OT evaluations pending. If pt continues to require oxygen- will need testing prior to dc. CM/SW will continue to follow to assist with dc planning. Zeynep VINESN RN ACM
[2019-02-21 10:31] LABS: Bedside Glucose 309 mg/dL (70-110)
--- NOTE | 2019-02-21 10:33 | CASEMGMT ---
Per RN CM family is interested in TCU. Their second choice would be [facility]. Patient was at [facility] from March 2018 until January 2019. CONTRERAS will need to verify dates he was at [facility] as he may not have any skilled days left. CONTRERAS called Lizzette at [facility] and left her a voice mail to call CONTRERAS back. Nydia MADDEN MSW
[2019-02-21 11:15] LABS: Bedside Glucose 377 mg/dL (70-110)
--- NOTE | 2019-02-21 12:41 | CASEMGMT ---
CONTRERAS spoke with Lizzette at [facility]. She said patient was there from Mar 11, 2018 to January 18, 2019. He was non skilled the whole time. Therefore patient has skilled days left. CONTRERAS spoke with Yari in TCU and she would have a bed available. CONTRERAS notified patient and his . Nydia MADDEN MSW
--- NOTE | 2019-02-21 12:54 | PCM.CONS.U ---
Reason for Consult Date of Consultation: 02/21/19 Reason for Consultation: Suprapubic catheter and infection History of Present Illness: The patient is a 68 year old male who earlier this year underwent a diverting colostomy and also a suprapubic catheter was requested because the patient had a decubitus ulcer that was not healing. So when he underwent cystoscopy was found to have a severe dense mid urethral stricture and then I placed a suprapubic catheter. He is now in the intensive care unit with a urinary tract infection recently the suprapubic catheter was changed in the wrong size was used with a 16 Kosovan catheter and was not draining well. The family was wondering if he really needs the catheter anymore explained to them with a severe urethral stricture I do not think he is going to be draining his bladder well enough. Try to place a catheter into the bladder but against a severe dense stricture in the mid urethra so decided to just change his suprapubic catheter from a 16 Kosovan and 18 Kosovan catheter. After changing it to a larger catheter then I got significant drainage of yellow urine and then purulent urine came out from the bladder. Past Medical History Past Medical History (Chronic Problems): Chronic Problems (Last Reviewed 06/18/18 @ 10:28 by Prashanth Peña MD) COPD with acute exacerbation (Chronic) Chronic suprapubic catheter (Chronic) Hyperlipidemia (Chronic) Ischemic cardiomyopathy (Chronic) Essential (primary) hypertension (Chronic) Atherosclerosis of coronary artery bypass graft without angina pectoris (Chronic) [facility] w/[id number] LAD w/ 3.0 x 9 mm Resolute Stent (grafts occluded x 3) 02/20/17 CVA (cerebral vascular accident) (Chronic) Residual right-sided hemiplegia Osteomyelitis of sacrum (Chronic) Traumatic brain injury (Chronic) Intraparenchymal hemorrhage of brain (Chronic) Subarachnoid hemorrhage (Chronic) Subdural hematoma (Chronic) Intraventricular hemorrhage (Chronic) Tobacco abuse (Chronic) Alcohol abuse (Chronic) Non-ST elevation myocardial infarction (NSTEMI), initial care episode (Chronic) 02/16/17 COPD (chronic obstructive pulmonary disease) (Chronic) Medical History: Medical History (Last Reviewed 06/18/18 @ 10:28 by Prashanth Peña MD) Hyperlipidemia (Chronic) E78.5 Ischemic cardiomyopathy (Chronic) I25.5 Essential (primary) hypertension (Chronic) I10 Acute on chronic systolic (congestive) heart failure (Acute) I50.23 Atherosclerosis of coronary artery bypass graft without angina pectoris (Chronic) I25.810 [facility] w/[id number] LAD w/ 3.0 x 9 mm Resolute Stent (grafts occluded x 3) 02/20/17 CVA (cerebral vascular accident) (Chronic) I63.9 Residual right-sided hemiplegia Osteomyelitis of sacrum (Chronic) M46.28 Traumatic brain injury (Chronic) S06.9X9A Intraparenchymal hemorrhage of brain (Chronic) I61.9 Subarachnoid hemorrhage (Chronic) I60.9 Subdural hematoma (Chronic) S06.5X9A Intraventricular hemorrhage (Chronic) I61.5 Tobacco abuse (Chronic) Z72.0 Alcohol abuse (Chronic) F10.10 Non-ST elevation myocardial infarction (NSTEMI), initial care episode (Chronic) I21.4 02/16/17 COPD (chronic obstructive pulmonary disease) (Chronic) J44.9 Dysphagia R13.10 GERD (gastroesophageal reflux disease) K21.9 Morbid obesity E66.01 Nicotine dependence F17.200 RLS (restless legs syndrome) G25.81 Right hemiplegia G81.91 Type 2 diabetes mellitus E11.9 Demand ischemia (Inactive) I24.8 Diabetes mellitus type 2 in obese (Inactive) E11.69, E66.9 Encounter for long-term current use of high risk medication (Inactive) Z79.899 FUO (fever of unknown origin) (Inactive) Former smoker (Inactive) Z87.891 quit February 2017 Hypertensive emergency (Inactive) I16.1 Allergies cilostazol Allergy (Verified 02/20/19 18:38) Hives colestipol Allergy (Verified 02/20/19 18:38) Hives diltiazem Allergy (Verified 02/20/19 18:38) Hives gemfibrozil Allergy (Verified 02/20/19 18:38) Hives naproxen [From Naprosyn] Allergy (Verified 02/20/19 18:38) Hives Nitrate Analogues Allergy (Verified 02/20/19 18:38) Hives Penicillins Allergy (Verified 02/20/19 18:38) Hives procainamide Allergy (Verified 02/20/19 18:38) Hives rosuvastatin Allergy (Verified 02/20/19 18:38) Hives simvastatin Allergy (Verified 02/20/19 18:38) Hives isosorbide Adverse Reaction (Severe, Verified 02/20/19 18:38) Unknown Home Medications: Ambulatory Orders Medication Instructions Recorded Amantadine [Symmetrel] 100 mg PO DAILY 04/17/18 Budesonide [Pulmicort] 0.5 mg IH BID 04/17/18 Fluticasone 0.05% [Flonase Nasal 2 spray NASAL DAILY 04/17/18 [place]] Insulin Lispro [Humalog] 12 unit SUBCUT TIDCM 04/17/18 Metoprolol Tartrate [Lopressor 100 mg PO TID 04/17/18 (beta stepan)] Pantoprazole Sodium [Protonix] 40 mg PO DAILY 04/17/18 Polyethylene Glycol 3350 [Miralax] 17 gm PO DAILY 04/17/18 Pramipexole Di-HCl [Mirapex] 0.25 mg PO QHS 04/17/18 Pravastatin Sodium 80 mg PO QHS 04/17/18 Senna/Docusate Sodium [Senokot-S] 2 tab PO BID 04/17/18 Tamsulosin HCl [Flomax] 0.4 mg PO DAILY 04/17/18 Insulin Lispro [Humalog KwikPen] See Protocol SUBCUT ACHS 04/20/18 insuln.pen furosemide 40 mg tablet 40 mg PO BID tab 06/17/18 potassium chloride ER 20 mEq 20 meq PO DAILY 90 Days #90 tab 06/17/18 tablet,extended release(part/cryst) Fluoxetine [Prozac] 20 mg PO DAILY 02/20/19 Hydroxyzine HCl 25 mg PO Q6H PRN 02/20/19 Insulin Glargine,Hum.rec.anlog 35 unit SUBCUT BID 02/20/19 [Lantus] Nitroglycerin 0.4 mg SL PRN PRN 02/20/19 Surgical History: Surgical History (Last Reviewed 02/21/19 @ 07:33 by Miriam Castro) H/O coronary artery bypass surgery (Resolved) Onset Date: ~2001 Z95.1 CABG x 3 Radial Artery-LAD, SVG-RCA, SVG-OM2 History of coronary artery stent placement (Resolved) Onset Date: 02/20/17 Z95.5 [facility] w/[id number]-Cqak LAD w/ 3.0 x 9 mm Resolute Stent (grafts occluded x 3) 02/20/17 PEG (percutaneous endoscopic gastrostomy) adjustment/replacement/removal Z43.1 Status post osteotomy Onset Date: 01/2018 Z98.890 Surgical History: angioplasty, coronary bypass surgery - x 3., - - PEG tube with eventual removal, Diverting colostomy, suprapubic catheter. Psychiatric History: Anxiety, Depression Lives: Spouse/ Significant Other Smoking Status: Former smoker Tobacco Use: Non-smoker Alcohol: None Drugs: None - *Family History Maternal Family History: Family History (Last Reviewed 06/18/18 @ 10:28 by Prashanth Peña MD) Brother Heart disease Father Heart disease History Items: - - Alzheimer's dementia. Paternal Family History: Family History (Last Reviewed 06/18/18 @ 10:28 by Prashanth Peña MD) Brother Heart disease Father Heart disease History Items: Heart Disease Review of Systems Constitutional: Denies: Chills, Fever, Weight Change HEENT: Denies: Head Aches, Sinus Congestion, Sinus Drainage Cardiovascular: Denies: Chest Pain, Palpitations Respiratory: Denies: Cough, Shortness of breath at rest, Sputum production Gastrointestinal: Denies: Abdominal Pain, Nausea, Vomiting Genitourinary: Denies: Dysuria Musculoskeletal: Denies: Joint Pain, Joint Tenderness Skin: Denies: Rash, Wounds Neurological: Denies: Numbness, Tingling, Focal weakness Psychiatric: Denies: Anxiety, Depression, Homicidal Ideations, Suicidal Ideations Hematologic/ Lymphatic: Denies: Easy Bruising, Easy Bleeding Physical Exam - Physical Exam Vital Signs Temp 97.9 F 02/21/19 12:00 Pulse 92 02/21/19 12:00 Resp 20 H 02/21/19 12:00 BP 95/31 L 02/21/19 12:00 Pulse Ox 98 02/21/19 12:00 Intake & Output 02/19/19 02/20/19 02/21/19 23:59 23:59 23:59 Intake Total 640 / 760 520 / 520 Output Total 260 / 260 Balance 640 / 740 260 / 260 Weight: 127.7 kg 127.4 kg Intake: Oral 520 / 520 Intake, IV Amount 640 / 640 Rocephin 1 gm In 50 ml @ 100 50 / 50 mls/hr IV X1 ONE Rx#:[id number] Vancomycin IV 1,000 MG/20 ML In 540 / 540 0.9% Normal Saline 500 ML @ 250 mls/hr IV X1 ONE Rx#: [id number] Zosyn 3.375 GM In 0.9% Normal 50 / 50 Saline 50 ML @ 100 mls/hr IV X1 ONE Rx#:[id number] Output: Urine 260 / 260 Other: Incontinent Amount Urine #2 Large Number of times incontinent 1 Urine #2 Number of Bowel Movements 1 General: Alert HEENT: Atraumatic Oral: Moist Mucosa Neck: Supple Lungs: Normal air movement Abdomen: Soft, Obese, - - SP tube present and changed Microbiology Past 72 Hours 02/20/19 23:45 Respiratory Panel (PCR) - Final Mucosa - Nasopharyngeal 02/20/19 18:50 Blood Culture - Preliminary Blood Culture (Wb) - Venous 02/20/19 23:20 Legionella Antigen - Final Urine Catheter - Catheter 02/20/19 23:20 Streptococcus pneumoniae Antigen (M - Final Urine Catheter - Catheter Laboratory Tests Past 24 Hrs 02/20/19 02/20/19 02/20/19 18:34 18:40 18:40 WBC 9.9 RBC 4.74 Hgb 13.8 Hct 43.3 MCV 91.4 MCH 29.1 MCHC 31.9 L RDW Std Deviation 44.9 H RDW Coeff of Sherin 13.2 Plt Count 222 MPV 11.3 Immature Gran % (Auto) 0.300 Neut % (Auto) 87.2 H Lymph % (Auto) 8.6 L [place] % (Auto) 2.1 Eos % (Auto) 1.4 Baso % (Auto) 0.4 Absolute Neuts (auto) 8.6 H Absolute Lymphs (auto) 0.85 Nucleated RBC % 0 Differential Comment Toxic Granulation PT 14.1 INR 1.1 Specimen Type Sample Site pH Bicarbonate Actual POC Total CO2 Base Excess O2 Saturation O2 % ABG pCO2 ABG pO2 Dejon Test Respiration Rate O2 Delivery Device EPAP IPAP Blood Gas Notified Whom Blood Gas Notified Time Sodium Potassium Chloride Carbon Dioxide Anion Gap BUN Creatinine Estim Creat Clear Calc Est GFR (MDRD) Af Amer Est GFR (MDRD) Non-Af BUN/Creatinine Ratio Glucose Lactic Acid Calcium Magnesium Troponin I B-Natriuretic Peptide 216.5 H Urine Color Urine Clarity Urine pH Ur Specific [place] Urine Protein Urine Glucose (UA) Urine Ketones Urine Occult Blood Urine Nitrite Urine Bilirubin Urine Urobilinogen Ur Leukocyte Esterase Urine RBC Urine WBC Ur Squamous Epith Cells Urine Bacteria Urine Mucus 02/20/19 02/20/19 02/20/19 18:40 18:40 18:40 WBC RBC Hgb Hct MCV MCH MCHC RDW Std Deviation RDW Coeff of Sherin Plt Count MPV Immature Gran % (Auto) Neut % (Auto) Lymph % (Auto) [place] % (Auto) Eos % (Auto) Baso % (Auto) Absolute Neuts (auto) Absolute Lymphs (auto) Nucleated RBC % Differential Comment Toxic Granulation PT INR Specimen Type Sample Site pH Bicarbonate Actual POC Total CO2 Base Excess O2 Saturation O2 % ABG pCO2 ABG pO2 Dejon Test Respiration Rate O2 Delivery Device EPAP IPAP Blood Gas Notified Whom Blood Gas Notified Time Sodium 140 Potassium 3.6 Chloride 101 Carbon Dioxide 26.0 Anion Gap 13 BUN 18 Creatinine 1.30 Estim Creat Clear Calc 63.23 Est GFR (MDRD) Af Amer 70 Est GFR (MDRD) Non-Af 58 L BUN/Creatinine Ratio 13.8 Glucose 294 H Lactic Acid 3.8 H Calcium 8.9 Magnesium 1.6 Troponin I < 0.015 B-Natriuretic Peptide Urine Color Urine Clarity Urine pH Ur Specific [place] Urine Protein Urine Glucose (UA) Urine Ketones Urine Occult Blood Urine Nitrite Urine Bilirubin Urine Urobilinogen Ur Leukocyte Esterase Urine RBC Urine WBC Ur Squamous Epith Cells Urine Bacteria Urine Mucus 02/20/19 02/20/19 02/20/19 22:45 22:45 23:03 WBC RBC Hgb Hct MCV MCH MCHC RDW Std Deviation RDW Coeff of Sherin Plt Count MPV Immature Gran % (Auto) Neut % (Auto) Lymph % (Auto) [place] % (Auto) Eos % (Auto) Baso % (Auto) Absolute Neuts (auto) Absolute Lymphs (auto) Nucleated RBC % Differential Comment Toxic Granulation PT INR Specimen Type ART Sample Site L Radial pH 7.38 Bicarbonate Actual 22.8 POC Total CO2 24 Base Excess -2 O2 Saturation 98 O2 % 40 ABG pCO2 38.8 ABG pO2 115 H Dejon Test POS Respiration Rate 12 O2 Delivery Device Bi / C PAP EPAP 10 IPAP 14 Blood Gas Notified Whom [facility] Blood Gas Notified Time 2257 Sodium Potassium Chloride Carbon Dioxide Anion Gap BUN Creatinine Estim Creat Clear Calc Est GFR (MDRD) Af Amer Est GFR (MDRD) Non-Af BUN/Creatinine Ratio Glucose Lactic Acid Cancelled 2.2 H Calcium Magnesium Troponin I B-Natriuretic Peptide Urine Color Urine Clarity Urine pH Ur Specific [place] Urine Protein Urine Glucose (UA) Urine Ketones Urine Occult Blood Urine Nitrite Urine Bilirubin Urine Urobilinogen Ur Leukocyte Esterase Urine RBC Urine WBC Ur Squamous Epith Cells Urine Bacteria Urine Mucus 02/20/19 02/21/19 02/21/19 23:20 00:05 03:10 WBC 15.3 H RBC 4.39 L Hgb 12.7 L Hct 39.9 L MCV 90.9 MCH 28.9 MCHC 31.8 L RDW Std Deviation 44.4 H RDW Coeff of Sherin 13.2 Plt Count 202 MPV 11.4 Immature Gran % (Auto) 0.400 Neut % (Auto) 90.8 H Lymph % (Auto) 2.3 L [place] % (Auto) 6.4 Eos % (Auto) 0.0 Baso % (Auto) 0.1 Absolute Neuts (auto) 13.9 H Absolute Lymphs (auto) 0.36 L Nucleated RBC % 0 Differential Comment SCANNED Toxic Granulation 1+ PT INR Specimen Type Sample Site pH Bicarbonate Actual POC Total CO2 Base Excess O2 Saturation O2 % ABG pCO2 ABG pO2 Dejon Test Respiration Rate O2 Delivery Device EPAP IPAP Blood Gas Notified Whom Blood Gas Notified Time Sodium Potassium Chloride Carbon Dioxide Anion Gap BUN Creatinine Estim Creat Clear Calc Est GFR (MDRD) Af Amer Est GFR (MDRD) Non-Af BUN/Creatinine Ratio Glucose Lactic Acid Calcium Magnesium Troponin I 0.389 H B-Natriuretic Peptide Urine Color Brown Urine Clarity Cloudy Urine pH 6.0 Ur Specific [place] 1.015 Urine Protein 100 H Urine Glucose (UA) 250 H Urine Ketones 5 H Urine Occult Blood 250 H Urine Nitrite Positive H Urine Bilirubin Negative Urine Urobilinogen Normal Ur Leukocyte Esterase 500 H Urine RBC > 100 SEEN Urine WBC >100 SEEN Ur Squamous Epith Cells 0 SEEN Urine Bacteria 2+ Urine Mucus 0 SEEN 02/21/19 02/21/19 02/21/19 03:10 03:10 06:10 WBC RBC Hgb Hct MCV MCH MCHC RDW Std Deviation RDW Coeff of Sherin Plt Count MPV Immature Gran % (Auto) Neut % (Auto) Lymph % (Auto) [place] % (Auto) Eos % (Auto) Baso % (Auto) Absolute Neuts (auto) Absolute Lymphs (auto) Nucleated RBC % Differential Comment Toxic Granulation PT INR Specimen Type Sample Site pH Bicarbonate Actual POC Total CO2 Base Excess O2 Saturation O2 % ABG pCO2 ABG pO2 Dejon Test Respiration Rate O2 Delivery Device EPAP IPAP Blood Gas Notified Whom Blood Gas Notified Time Sodium 142 Potassium 3.9 Chloride 105 Carbon Dioxide 26.0 Anion Gap 11 BUN 21 H Creatinine 1.18 Estim Creat Clear Calc 69.66 Est GFR (MDRD) Af Amer 79 Est GFR (MDRD) Non-Af 65 BUN/Creatinine Ratio 17.8 Glucose 315 H Lactic Acid Calcium 8.6 Magnesium Troponin I 0.350 H 0.312 H B-Natriuretic Peptide Urine Color Urine Clarity Urine pH Ur Specific [place] Urine Protein Urine Glucose (UA) Urine Ketones Urine Occult Blood Urine Nitrite Urine Bilirubin Urine Urobilinogen Ur Leukocyte Esterase Urine RBC Urine WBC Ur Squamous Epith Cells Urine Bacteria Urine Mucus Assessment/Plan All Active Problems (Last Reviewed 06/18/18 @ 10:28 by Prashanth Peña MD) Severe sepsis (Acute) COPD exacerbation (Acute) Pneumonia (Acute) Acute respiratory failure with hypoxia and hypercapnia (Acute) Recurrent UTI (urinary tract infection) (Acute) Acute on chronic systolic (congestive) heart failure (Acute) H/O coronary artery bypass surgery (Resolved ~2001) History of coronary artery stent placement (Resolved 02/20/17) Acute respiratory failure with hypoxia and hypercarbia (Resolved) Alcohol intoxication (Resolved) Complicated CAUTI (Resolved) Healthcare associated bacteremia due to Staphylococcus aureus (Resolved) Infected decubitus ulcer (Resolved) Infected decubitus ulcer (Resolved) Multifocal community-acquired pneumonia (Resolved) Right scapula fracture (Resolved) Sepsis (Resolved) Severe sepsis (Resolved) 68-year-old male with a suprapubic catheter was changed from a 16 Kosovan and 18 Kosovan at this point got significant return of yellow urine on and also purulent urine bladder should be emptying much better. He will need to go from a 18 Kosovan to a 20 Kosovan catheter next. He can now follow-up in my office for a change to the next size of the suprapubic catheter.
--- NOTE | 2019-02-21 13:04 | PN_ITS ---
Patient Problems: Active and Suspected Problems (Last Reviewed 06/18/18 @ 10:28 by Prashanth Peña MD) Severe sepsis (Acute) COPD exacerbation (Acute) Pneumonia (Acute) Acute respiratory failure with hypoxia and hypercapnia (Acute) Recurrent UTI (urinary tract infection) (Acute) Subjective: Feeling better. Vitals/I&O's: Vital Signs Temp Pulse Resp BP Pulse Ox 36.6 C 92 20 H 95/31 L 98 02/21/19 12:00 02/21/19 12:00 02/21/19 12:00 02/21/19 12:00 02/21/19 12:00 Oxygen Flow Rate (L/min) 2 Oxygen Delivery Method Nasal Cannula Weight: 127.4 kg Body Mass Index (BMI) 36.1 Finger Stick Blood Glucose 250 Intake and Output for Last 24 Hours 02/19/19 02/20/19 02/21/19 23:59 23:59 23:59 Intake Total 640 / 760 520 / 520 Output Total 260 / 260 Balance 640 / 740 260 / 260 General: Alert, No apparent distress HEENT: Atraumatic, Normocephalic Oral: Moist Mucosa, No Gingival or Mucosal Lesions/ Ulcerations Neck: No Nodes, Thyroid Normal Size and Texture Lungs: Clear to auscultation, Normal air movement, No rhonchi, No wheeze, No rales Cardiovascular: Regular rate, Regular Rhythm, Normal S1, Normal S2, No murmurs Abdomen: Bowel Sounds Present, Soft, Non Tender, Non-Distended, No Hepato- splenomegaly Extremities: No Calf Tenderness, Edema Skin: No rashes, No breakdown Musculoskeletal: No Tenderness to Palpation of Joints or Extremities, No Muscle Wasting Psych/Mental Status: Normal Affect, Appropriate Microbiology Past 72 Hours 02/20/19 23:45 Mucosa - Nasopharyngeal Respiratory Panel (PCR) - Final 02/20/19 18:50 Blood Culture (Wb) - Venous Blood Culture - Preliminary 02/20/19 23:20 Urine Catheter - Catheter Legionella Antigen - Final 02/20/19 23:20 Urine Catheter - Catheter Streptococcus pneumoniae Antigen (M - Final Laboratory Results 02/20/19 18:34: B-Natriuretic Peptide 216.5 H 02/20/19 18:40: WBC 9.9, RBC 4.74, Hgb 13.8, Hct 43.3, MCV 91.4, MCH 29.1, MCHC 31.9 L, RDW Std Deviation 44.9 H, RDW Coeff of Sherin 13.2, Plt Count 222, MPV 11.3, Immature Gran % (Auto) 0.300, Neut % (Auto) 87.2 H, Lymph % (Auto) 8.6 L, [place] % (Auto) 2.1, Eos % (Auto) 1.4, Baso % (Auto) 0.4, Absolute Neuts (auto) 8.6 H, Absolute Lymphs (auto) 0.85, Nucleated RBC % 0 02/20/19 18:40: PT 14.1, INR 1.1 02/20/19 18:40: Sodium 140, Potassium 3.6, Chloride 101, Carbon Dioxide 26.0, Anion Gap 13, BUN 18, Creatinine 1.30, Estim Creat Clear Calc 63.23, Est GFR (MDRD) Af Amer 70, Est GFR (MDRD) Non-Af 58 L, BUN/Creatinine Ratio 13.8, Glucose 294 H, Calcium 8.9, Troponin I < 0.015 02/20/19 18:40: Lactic Acid 3.8 H 02/20/19 18:40: Magnesium 1.6 02/20/19 22:24: POC Glucose 345 H 02/20/19 22:45: Lactic Acid Cancelled 02/20/19 22:45: Lactic Acid 2.2 H 02/20/19 23:03: Specimen Type ART, Sample Site L Radial, pH 7.38, Bicarbonate Actual 22.8, POC Total CO2 24, Base Excess -2, O2 Saturation 98, O2 % 40, ABG pCO2 38.8, ABG pO2 115 H, Dejon Test POS, Respiration Rate 12, O2 Delivery Device Bi / C PAP, EPAP 10, IPAP 14, Blood Gas Notified Whom LOLITA MATTA, Blood Gas Notified Time 9322 02/20/19 23:20: Urine Color Brown, Urine Clarity Cloudy, Urine pH 6.0, Ur Specific [place] 1.015, Urine Protein 100 H, Urine Glucose (UA) 250 H, Urine Ketones 5 H, Urine Occult Blood 250 H, Urine Nitrite Positive H, Urine Bilirubin Negative, Urine Urobilinogen Normal, Ur Leukocyte Esterase 500 H, Urine RBC > 100 SEEN, Urine WBC >100 SEEN, Ur Squamous Epith Cells 0 SEEN, Urine Bacteria 2+, Urine Mucus 0 SEEN 02/21/19 00:05: Troponin I 0.389 H 02/21/19 03:10: WBC 15.3 H, RBC 4.39 L, Hgb 12.7 L, Hct 39.9 L, MCV 90.9, MCH 28.9, MCHC 31.8 L, RDW Std Deviation 44.4 H, RDW Coeff of Sherin 13.2, Plt Count 202, MPV 11.4, Immature Gran % (Auto) 0.400, Neut % (Auto) 90.8 H, Lymph % (Auto) 2.3 L, [place] % (Auto) 6.4, Eos % (Auto) 0.0, Baso % (Auto) 0.1, Absolute Neuts (auto) 13.9 H, Absolute Lymphs (auto) 0.36 L, Nucleated RBC % 0, Differential Comment SCANNED, Toxic Granulation 1+ 02/21/19 03:10: Sodium 142, Potassium 3.9, Chloride 105, Carbon Dioxide 26.0, Anion Gap 11, BUN 21 H, Creatinine 1.18, Estim Creat Clear Calc 69.66, Est GFR (MDRD) Af Amer 79, Est GFR (MDRD) Non-Af 65, BUN/Creatinine Ratio 17.8, Glucose 315 H, Calcium 8.6 02/21/19 03:10: Troponin I 0.350 H 02/21/19 06:10: Troponin I 0.312 H 02/21/19 08:51: POC Glucose 309 H 02/21/19 11:08: POC Glucose 377 H Current Medications Acetaminophen (Tylenol) 650 mg PO Q6H PRN PRN PRN Reason: Non-cardiac pain (mod-severe) Hydrocodone Bitart/Acetaminophen ([place] 5mg-325mg) 1 - 2 tablet PO Q4H PRN PRN PRN Reason: MOD-SEVERE PAIN (4-10/10) Albuterol Sulfate (Ventolin Aerosols) 2.5 mg INHALATION Q2H PRN PRN PRN Reason: dyspnea, wheezing Albuterol/Ipratropium (Duoneb) 3 ml INHALATION Q4HWA.RT BULL Last Admin: 02/21/19 11:12 Dose: 3 ml Documented by: Amantadine HCl (Symmetrel) 100 mg PO DAILY [facility] Last Admin: 09/16/19 08:59 Dose: 100 mg Documented by: Aspirin (Aspirin, Baby) 81 mg PO DAILY@0800 [facility] Last Admin: 02/21/19 08:55 Dose: 81 mg Documented by: Dextrose (D50w Syringe) 0 gm IV X1 PRN; Protocol PRN Reason: Hypoglycemia Enoxaparin Sodium (Lovenox) 40 mg SC DAILY@1000 [facility] Last Admin: 02/21/19 08:57 Dose: 40 mg Documented by: Fluoxetine HCl (Prozac) 20 mg PO DAILY [facility] Last Admin: 02/21/19 08:55 Dose: 20 mg Documented by: Fluticasone Propionate (Flonase Nasal [place]) 2 spray NASAL DAILY [facility] Last Admin: 02/21/19 09:49 Dose: Not Given Documented by: Furosemide (Lasix) 40 mg IV BID@1000,1800 [facility] Last Admin: 02/21/19 08:57 Dose: 40 mg Documented by: Glucagon () 1 mg IM .X1 PRN PRN Reason: Hypoglycemia Hydralazine HCl (Apresoline Iv) 10 mg IV Q4H PRN PRN PRN Reason: SBP > 160 Hydroxyzine Pamoate (Vistaril Pamoate Capsule) 25 mg PO Q6H PRN PRN PRN Reason: ITCHING Sodium Chloride () 250 mls @ 15 mls/hr IV .[id number] PRN PRN Reason: SALINE FLUSH Piperacillin Sod/Tazobactam (Sod 3.375 gm/ Sodium Chloride) 50 mls @ 12.5 mls/hr IV Q8 [facility] Last Admin: 02/21/19 06:39 Dose: 12.5 mls/hr Documented by: Insulin Glargine (Lantus (Bkc)) 25 units SC BID [facility] Last Admin: 02/21/19 08:56 Dose: 25 u Documented by: Insulin Human Lispro (Humalog Kwikpen (Bk)) 12 unit SC TIDCM [facility] Last Admin: 02/21/19 12:04 Dose: 12 u Documented by: Insulin Human Lispro (Humalog Kwikpen (Bkc)) 0 unit SC ACHS [facility]; Protocol Last Admin: 02/21/19 12:04 Dose: 10 u Documented by: Magnesium Hydroxide (Milk Of Magnesia) 30 ml PO DAILY PRN PRN Reason: Constipation Melatonin (Melatonin) 3 mg PO QHS PRN PRN PRN Reason: INSOMNIA Methylprednisolone (Solu-Medrol) 40 mg IV Q8 [facility] Last Admin: 02/21/19 05:55 Dose: 40 mg Documented by: Metoprolol Tartrate (Lopressor (Beta [place])) 100 mg PO TID [facility] Last Admin: 02/21/19 05:53 Dose: 100 mg Documented by: Morphine Sulfate () 1 - 2 mg IV Q4H PRN PRN PRN Reason: PAIN Nitroglycerin (Nitrostat) 0.4 mg SUBLINGUAL Q5M PRN PRN Reason: CARDIAC/CHEST PAIN Nystatin (Mycostatin Powder) 1 applic TOPICAL TID [facility]; Protocol Last Admin: 02/21/19 05:55 Dose: 1 applicatio Documented by: Ondansetron HCl (Zofran) 4 mg IV Q8H PRN PRN PRN Reason: NAUSEA/VOMITING Pantoprazole Sodium (Protonix) 40 mg PO DAILY [facility] Last Admin: 02/21/19 08:58 Dose: 40 mg Documented by: Polyethylene Glycol (Miralax) 17 gm PO DAILY [facility] Last Admin: 02/21/19 08:58 Dose: 17 gm Documented by: Potassium Chloride (K-Dur) 20 meq PO DAILY [facility] Last Admin: 02/21/19 08:56 Dose: 20 meq Documented by: Pramipexole Dihydrochloride (Mirapex) 0.25 mg PO QHS [facility] Last Admin: 02/20/19 22:28 Dose: 0.25 mg Documented by: Pravastatin Sodium (Pravachol) 80 mg PO QHS [facility] Last Admin: 02/20/19 22:27 Dose: 80 mg Documented by: Senna/Docusate Sodium (Senokot-S, Page-Colace) 1 tablet PO BID [facility] Last Admin: 02/21/19 08:58 Dose: Not Given Documented by: Sodium Chloride () 10 - 40 ml IV UD PRN PRN Reason: SALINE FLUSH Last Admin: 02/20/19 22:28 Dose: 20 ml Documented by: Tamsulosin HCl (Flomax) 0.4 mg PO DAILY [facility] Last Admin: 02/21/19 08:56 Dose: 0.4 mg Documented by: Medical Necessity - Tobacco Use Smoking Status: Former smoker Tobacco Use: Non-smoker Assessment/Plan All Active Problems (Last Reviewed 06/18/18 @ 10:28 by Prashanth Peña MD) Severe sepsis (Acute) COPD exacerbation (Acute) Pneumonia (Acute) Acute respiratory failure with hypoxia and hypercapnia (Acute) Recurrent UTI (urinary tract infection) (Acute) Acute on chronic systolic (congestive) heart failure (Acute) H/O coronary artery bypass surgery (Resolved ~2001) History of coronary artery stent placement (Resolved 02/20/17) Acute respiratory failure with hypoxia and hypercarbia (Resolved) Alcohol intoxication (Resolved) Complicated CAUTI (Resolved) Healthcare associated bacteremia due to Staphylococcus aureus (Resolved) Infected decubitus ulcer (Resolved) Infected decubitus ulcer (Resolved) Multifocal community-acquired pneumonia (Resolved) Right scapula fracture (Resolved) Sepsis (Resolved) Severe sepsis (Resolved) 1. Severe sepsis * 2/2 bacteremia and UTI * Monitor in ICU overnight 2. Bacteremia: * GNR 1/2 * 2/2 UTI * monitor 3. UTI: * follow up cultures * on pip/tazo 4. Respiratory distress * may have compensating for metabolic acidosis * DC methylpred 5. VTE prophylaxis: mod risk. LMWH 6. DM2: * uncontrolled * exacerbated by sepsis and steroids * continue basal and prandial insulin DW family at bedside. Code Visit Inpatient E&M: 20417 Subs Hosp L2
[2019-02-21 16:21] LABS: Bedside Glucose 235 mg/dL (70-110)
[2019-02-21] MEDS: Pravastatin 80 MG Tablet PO (21:40)
[2019-02-21] MEDS: Pramipexole Di-HCl 0.25 MG Tablet PO (21:40)
[2019-02-21 22:00] LABS: Bedside Glucose 301 mg/dL (70-110)
[2019-02-22] VITALS (24 sets, daily range): BP systolic 99–169; BP diastolic 36–73; PULSE 53–82; RESP 12–23; TEMP 36.3–36.8; O2SAT 92–99
[2019-02-22 04:50] LABS: Absolute Lymphocyte Count 0.78 X10^3/uL (0.83-4.51); Absolute Neutrophil Count 12.5 X10^3/uL (2.0-7.7); Basophil# 0.02 X10^3/uL; Basophil% 0.1 % (0-1); Eosinophil# 0.14 X10^3/uL; Hemoglobin 11.6 g/dL (13.0-16.5); Lymphocyte # 0.78 X10^3/ul (4.0); Lymphocyte % 5.5 % (19-41); Mean Corp Hgb Conc 31.4 g/dL (32-36); Mean Corpuscular Volume 92.5 fL (80-94); Mean Platelet Vol. 11.8 fl (6.2-12.0); Monocyte# 0.67 X10^3/uL; Monocyte% 4.7 % (0-10); NRBC Flagged by Analyzer 0 % (0-5); Neutrophil # 12.46 X10^3/uL (2.7-7.7); Neutrophil % 88.1 % (47-70); Platelet Count 198 K/mm3 (150-450); RBC Distribution Width CV 13.5 % (11.6-14.6); RBC Distribution Width SD 46.1 fl (35.1-43.9); White Blood Count 14.2 K/mm3 (4.4-11.0)
[2019-02-22 04:53] LABS: Anion Gap 7 (5-15); BUN 28 mg/dL (7-18); BUN/Creat Ratio 27.2 RATIO (10-20); Chloride 103 mmol/L (98-107); Creatinine, Serum 1.03 mg/dL (0.70-1.30); EST Glomerular Filtration Rate 76 mL/min (>60); Est Glom Filt Rate - Afr Amer 92 mL/min (>60); Estimated Creatinine Clearance 79.81 ml/min; Glucose 266 mg/dL (74-106); Potassium 3.9 mmol/L (3.5-5.1); Sodium Level 140 mmol/L (136-145)
[2019-02-22] MEDS: Nystatin Powder 15gm Bottle 1 APPLIC TOPICAL ×3 (05:53→21:35)
[2019-02-22] MEDS: Metoprolol Tartrate 100 MG Tablet PO ×3 (05:56→21:36)
[2019-02-22] MEDS: CHLORHEXIDINE GLUC 2% CLOTH 1 EACH TOWELETTE TOPICAL (06:31)
--- NOTE | 2019-02-22 06:37 | PCM.PN.INT ---
Subjective: The patient was seen and examined at the bedside this morning. Events from the last 24 hours have been reviewed. The patient is currently afebrile, hemodynamically stable and maintaining appropriate oxygen saturations on room air. The patient was tolerant of BiPAP overnight. He denies any pain this morning. He reports no shortness of breath. Objective: The patient's most recent lab work, culture data and imaging studies have all been personally reviewed. Preliminary blood culture dated February 20 was positive for the presence of gram-negative rods. Strep and urine Legionella antigens were both negative. Respiratory viral panel was negative. Urine culture is currently pending. General: Alert, Oriented x3, Cooperative, No apparent distress HEENT: Atraumatic, PERRLA, Normocephalic Oral: No Gingival or Mucosal Lesions/ Ulcerations Neck: Supple, No Nodes, Trachea Midline Lungs: No rhonchi, No wheeze, No rales, Diminished Cardiovascular: Regular rate, Regular Rhythm, Normal S1, Normal S2, Murmur Abdomen: Bowel Sounds Present, Soft, Non Tender, Obese, - - +Ostomy and suprapubic catheter Extremities: No clubbing, No cyanosis, No edema Skin: No rashes Musculoskeletal: No Tenderness to Palpation of Joints or Extremities Lymphatic: No Cervical, Supraclavicular, or Inguinal Adenopathy Neurological: Cranial nerves II-XII grossly intact, - - No focal neurological deficits. Psych/Mental Status: Alert and oriented to time, place, person, mood and affect Vital Signs Temp Pulse Resp BP Pulse Ox 97.5 F L 76 17 146/69 H 94 02/22/19 05:00 02/22/19 06:00 02/22/19 06:00 02/22/19 06:00 02/22/19 06:00 Oxygen Flow Rate (L/min) 1 Oxygen Delivery Method Room Air Weight: 278 lb 0.046 oz Body Mass Index (BMI) 36.1 Finger Stick Blood Glucose 250 Intake and Output for Last 24 Hours 02/20/19 02/21/19 02/22/19 23:59 23:59 23:59 Intake Total 640 / 760 1500 / 1500 290 / 290 Output Total 2210 / 2210 650 / 650 Balance 640 / 740 -710 / -710 -360 / -360 Labs (Last 48 Hours) 02/20/19 02/20/19 02/20/19 18:34 18:40 18:40 WBC 9.9 RBC 4.74 Hgb 13.8 Hct 43.3 MCV 91.4 MCH 29.1 MCHC 31.9 L RDW Std Deviation 44.9 H RDW Coeff of Sherin 13.2 Plt Count 222 MPV 11.3 Immature Gran % (Auto) 0.300 Neut % (Auto) 87.2 H Lymph % (Auto) 8.6 L Dougherty % (Auto) 2.1 Eos % (Auto) 1.4 Baso % (Auto) 0.4 Absolute Neuts (auto) 8.6 H Absolute Lymphs (auto) 0.85 Nucleated RBC % 0 Differential Comment Toxic Granulation PT 14.1 INR 1.1 Specimen Type Sample Site pH Bicarbonate Actual POC Total CO2 Base Excess O2 Saturation O2 % ABG pCO2 ABG pO2 Dejon Test Respiration Rate O2 Delivery Device EPAP IPAP Blood Gas Notified Whom Blood Gas Notified Time Sodium Potassium Chloride Carbon Dioxide Anion Gap BUN Creatinine Estim Creat Clear Calc Est GFR (MDRD) Af Amer Est GFR (MDRD) Non-Af BUN/Creatinine Ratio Glucose Lactic Acid Calcium Magnesium Troponin I B-Natriuretic Peptide 216.5 H Urine Color Urine Clarity Urine pH Ur Specific Ponce Urine Protein Urine Glucose (UA) Urine Ketones Urine Occult Blood Urine Nitrite Urine Bilirubin Urine Urobilinogen Ur Leukocyte Esterase Urine RBC Urine WBC Ur Squamous Epith Cells Urine Bacteria Urine Mucus POC Glucose 02/20/19 02/20/19 02/20/19 18:40 18:40 18:40 WBC RBC Hgb Hct MCV MCH MCHC RDW Std Deviation RDW Coeff of Sherin Plt Count MPV Immature Gran % (Auto) Neut % (Auto) Lymph % (Auto) Dougherty % (Auto) Eos % (Auto) Baso % (Auto) Absolute Neuts (auto) Absolute Lymphs (auto) Nucleated RBC % Differential Comment Toxic Granulation PT INR Specimen Type Sample Site pH Bicarbonate Actual POC Total CO2 Base Excess O2 Saturation O2 % ABG pCO2 ABG pO2 Dejon Test Respiration Rate O2 Delivery Device EPAP IPAP Blood Gas Notified Whom Blood Gas Notified Time Sodium 140 Potassium 3.6 Chloride 101 Carbon Dioxide 26.0 Anion Gap 13 BUN 18 Creatinine 1.30 Estim Creat Clear Calc 63.23 Est GFR (MDRD) Af Amer 70 Est GFR (MDRD) Non-Af 58 L BUN/Creatinine Ratio 13.8 Glucose 294 H Lactic Acid 3.8 H Calcium 8.9 Magnesium 1.6 Troponin I < 0.015 B-Natriuretic Peptide Urine Color Urine Clarity Urine pH Ur Specific Ponce Urine Protein Urine Glucose (UA) Urine Ketones Urine Occult Blood Urine Nitrite Urine Bilirubin Urine Urobilinogen Ur Leukocyte Esterase Urine RBC Urine WBC Ur Squamous Epith Cells Urine Bacteria Urine Mucus POC Glucose 02/20/19 02/20/19 02/20/19 22:24 22:45 22:45 WBC RBC Hgb Hct MCV MCH MCHC RDW Std Deviation RDW Coeff of Sherin Plt Count MPV Immature Gran % (Auto) Neut % (Auto) Lymph % (Auto) Dougherty % (Auto) Eos % (Auto) Baso % (Auto) Absolute Neuts (auto) Absolute Lymphs (auto) Nucleated RBC % Differential Comment Toxic Granulation PT INR Specimen Type Sample Site pH Bicarbonate Actual POC Total CO2 Base Excess O2 Saturation O2 % ABG pCO2 ABG pO2 Dejon Test Respiration Rate O2 Delivery Device EPAP IPAP Blood Gas Notified Whom Blood Gas Notified Time Sodium Potassium Chloride Carbon Dioxide Anion Gap BUN Creatinine Estim Creat Clear Calc Est GFR (MDRD) Af Amer Est GFR (MDRD) Non-Af BUN/Creatinine Ratio Glucose Lactic Acid Cancelled 2.2 H Calcium Magnesium Troponin I B-Natriuretic Peptide Urine Color Urine Clarity Urine pH Ur Specific Ponce Urine Protein Urine Glucose (UA) Urine Ketones Urine Occult Blood Urine Nitrite Urine Bilirubin Urine Urobilinogen Ur Leukocyte Esterase Urine RBC Urine WBC Ur Squamous Epith Cells Urine Bacteria Urine Mucus POC Glucose 345 H 02/20/19 02/20/19 02/21/19 23:03 23:20 00:05 WBC RBC Hgb Hct MCV MCH MCHC RDW Std Deviation RDW Coeff of Sherin Plt Count MPV Immature Gran % (Auto) Neut % (Auto) Lymph % (Auto) Dougherty % (Auto) Eos % (Auto) Baso % (Auto) Absolute Neuts (auto) Absolute Lymphs (auto) Nucleated RBC % Differential Comment Toxic Granulation PT INR Specimen Type ART Sample Site L Radial pH 7.38 Bicarbonate Actual 22.8 POC Total CO2 24 Base Excess -2 O2 Saturation 98 O2 % 40 ABG pCO2 38.8 ABG pO2 115 H Dejon Test POS Respiration Rate 12 O2 Delivery Device Bi / C PAP EPAP 10 IPAP 14 Blood Gas Notified Whom [facility] Blood Gas Notified Time 2257 Sodium Potassium Chloride Carbon Dioxide Anion Gap BUN Creatinine Estim Creat Clear Calc Est GFR (MDRD) Af Amer Est GFR (MDRD) Non-Af BUN/Creatinine Ratio Glucose Lactic Acid Calcium Magnesium Troponin I 0.389 H B-Natriuretic Peptide Urine Color Brown Urine Clarity Cloudy Urine pH 6.0 Ur Specific Ponce 1.015 Urine Protein 100 H Urine Glucose (UA) 250 H Urine Ketones 5 H Urine Occult Blood 250 H Urine Nitrite Positive H Urine Bilirubin Negative Urine Urobilinogen Normal Ur Leukocyte Esterase 500 H Urine RBC > 100 SEEN Urine WBC >100 SEEN Ur Squamous Epith Cells 0 SEEN Urine Bacteria 2+ Urine Mucus 0 SEEN POC Glucose 02/21/19 02/21/19 02/21/19 03:10 03:10 03:10 WBC 15.3 H RBC 4.39 L Hgb 12.7 L Hct 39.9 L MCV 90.9 MCH 28.9 MCHC 31.8 L RDW Std Deviation 44.4 H RDW Coeff of Sherin 13.2 Plt Count 202 MPV 11.4 Immature Gran % (Auto) 0.400 Neut % (Auto) 90.8 H Lymph % (Auto) 2.3 L Dougherty % (Auto) 6.4 Eos % (Auto) 0.0 Baso % (Auto) 0.1 Absolute Neuts (auto) 13.9 H Absolute Lymphs (auto) 0.36 L Nucleated RBC % 0 Differential Comment SCANNED Toxic Granulation 1+ PT INR Specimen Type Sample Site pH Bicarbonate Actual POC Total CO2 Base Excess O2 Saturation O2 % ABG pCO2 ABG pO2 Dejon Test Respiration Rate O2 Delivery Device EPAP IPAP Blood Gas Notified Whom Blood Gas Notified Time Sodium 142 Potassium 3.9 Chloride 105 Carbon Dioxide 26.0 Anion Gap 11 BUN 21 H Creatinine 1.18 Estim Creat Clear Calc 69.66 Est GFR (MDRD) Af Amer 79 Est GFR (MDRD) Non-Af 65 BUN/Creatinine Ratio 17.8 Glucose 315 H Lactic Acid Calcium 8.6 Magnesium Troponin I 0.350 H B-Natriuretic Peptide Urine Color Urine Clarity Urine pH Ur Specific Ponce Urine Protein Urine Glucose (UA) Urine Ketones Urine Occult Blood Urine Nitrite Urine Bilirubin Urine Urobilinogen Ur Leukocyte Esterase Urine RBC Urine WBC Ur Squamous Epith Cells Urine Bacteria Urine Mucus POC Glucose 02/21/19 02/21/19 02/21/19 06:10 08:51 11:08 WBC RBC Hgb Hct MCV MCH MCHC RDW Std Deviation RDW Coeff of Sherin Plt Count MPV Immature Gran % (Auto) Neut % (Auto) Lymph % (Auto) Dougherty % (Auto) Eos % (Auto) Baso % (Auto) Absolute Neuts (auto) Absolute Lymphs (auto) Nucleated RBC % Differential Comment Toxic Granulation PT INR Specimen Type Sample Site pH Bicarbonate Actual POC Total CO2 Base Excess O2 Saturation O2 % ABG pCO2 ABG pO2 Dejon Test Respiration Rate O2 Delivery Device EPAP IPAP Blood Gas Notified Whom Blood Gas Notified Time Sodium Potassium Chloride Carbon Dioxide Anion Gap BUN Creatinine Estim Creat Clear Calc Est GFR (MDRD) Af Amer Est GFR (MDRD) Non-Af BUN/Creatinine Ratio Glucose Lactic Acid Calcium Magnesium Troponin I 0.312 H B-Natriuretic Peptide Urine Color Urine Clarity Urine pH Ur Specific Ponce Urine Protein Urine Glucose (UA) Urine Ketones Urine Occult Blood Urine Nitrite Urine Bilirubin Urine Urobilinogen Ur Leukocyte Esterase Urine RBC Urine WBC Ur Squamous Epith Cells Urine Bacteria Urine Mucus POC Glucose 309 H 377 H 02/21/19 02/21/19 02/22/19 16:16 21:36 04:30 WBC 14.2 H RBC 4.00 L Hgb 11.6 L Hct 37.0 L MCV 92.5 MCH 29.0 MCHC 31.4 L RDW Std Deviation 46.1 H RDW Coeff of Sherin 13.5 Plt Count 198 MPV 11.8 Immature Gran % (Auto) 0.600 Neut % (Auto) 88.1 H Lymph % (Auto) 5.5 L Dougherty % (Auto) 4.7 Eos % (Auto) 1.0 Baso % (Auto) 0.1 Absolute Neuts (auto) 12.5 H Absolute Lymphs (auto) 0.78 L Nucleated RBC % 0 Differential Comment Toxic Granulation PT INR Specimen Type Sample Site pH Bicarbonate Actual POC Total CO2 Base Excess O2 Saturation O2 % ABG pCO2 ABG pO2 Dejon Test Respiration Rate O2 Delivery Device EPAP IPAP Blood Gas Notified Whom Blood Gas Notified Time Sodium Potassium Chloride Carbon Dioxide Anion Gap BUN Creatinine Estim Creat Clear Calc Est GFR (MDRD) Af Amer Est GFR (MDRD) Non-Af BUN/Creatinine Ratio Glucose Lactic Acid Calcium Magnesium Troponin I B-Natriuretic Peptide Urine Color Urine Clarity Urine pH Ur Specific Ponce Urine Protein Urine Glucose (UA) Urine Ketones Urine Occult Blood Urine Nitrite Urine Bilirubin Urine Urobilinogen Ur Leukocyte Esterase Urine RBC Urine WBC Ur Squamous Epith Cells Urine Bacteria Urine Mucus POC Glucose 235 H 301 H 02/22/19 04:30 WBC RBC Hgb Hct MCV MCH MCHC RDW Std Deviation RDW Coeff of Sherin Plt Count MPV Immature Gran % (Auto) Neut % (Auto) Lymph % (Auto) Dougherty % (Auto) Eos % (Auto) Baso % (Auto) Absolute Neuts (auto) Absolute Lymphs (auto) Nucleated RBC % Differential Comment Toxic Granulation PT INR Specimen Type Sample Site pH Bicarbonate Actual POC Total CO2 Base Excess O2 Saturation O2 % ABG pCO2 ABG pO2 Dejon Test Respiration Rate O2 Delivery Device EPAP IPAP Blood Gas Notified Whom Blood Gas Notified Time Sodium 140 Potassium 3.9 Chloride 103 Carbon Dioxide 30.0 Anion Gap 7 BUN 28 H Creatinine 1.03 Estim Creat Clear Calc 79.81 Est GFR (MDRD) Af Amer 92 Est GFR (MDRD) Non-Af 76 BUN/Creatinine Ratio 27.2 H Glucose 266 H Lactic Acid Calcium 9.0 Magnesium Troponin I B-Natriuretic Peptide Urine Color Urine Clarity Urine pH Ur Specific Ponce Urine Protein Urine Glucose (UA) Urine Ketones Urine Occult Blood Urine Nitrite Urine Bilirubin Urine Urobilinogen Ur Leukocyte Esterase Urine RBC Urine WBC Ur Squamous Epith Cells Urine Bacteria Urine Mucus POC Glucose Microbiology 02/20/19 23:45 Mucosa - Nasopharyngeal Respiratory Panel (PCR) - Final 02/20/19 18:50 Blood Culture (Wb) - Venous Blood Culture - Preliminary 02/20/19 23:20 Urine Catheter - Catheter Legionella Antigen - Final 02/20/19 23:20 Urine Catheter - Catheter Streptococcus pneumoniae Antigen (M - Final Clinical Impression(s) from Imaging Studies Chest X-Ray 02/20/19 18:50 IMPRESSION: Unfavorable change. Mild to moderate pulmonary edema. No sizable effusion. Electronically Signed: Kyaw Esparza MD ([place]) at 19:02 EDT , Service support , Chest X-Ray 02/21/19 05:55 IMPRESSION: The lungs are clear. Electronically Signed: Bakari Briggs, at 8:59 EDT , Service support , Medical Necessity - Tobacco Use Smoking Status: Former smoker Tobacco Use: Non-smoker Assessment/Plan All Active Problems (Last Reviewed 06/18/18 @ 10:28 by Prashanth Peña MD) Severe sepsis (Acute) COPD exacerbation (Acute) Pneumonia (Acute) Acute respiratory failure with hypoxia and hypercapnia (Acute) Recurrent UTI (urinary tract infection) (Acute) Abnormal cardiac enzyme level (Acute) Acute on chronic systolic (congestive) heart failure (Acute) H/O coronary artery bypass surgery (Resolved ~2001) History of coronary artery stent placement (Resolved 02/20/17) Acute respiratory failure with hypoxia and hypercarbia (Resolved) Alcohol intoxication (Resolved) Complicated CAUTI (Resolved) Healthcare associated bacteremia due to Staphylococcus aureus (Resolved) Infected decubitus ulcer (Resolved) Infected decubitus ulcer (Resolved) Multifocal community-acquired pneumonia (Resolved) Right scapula fracture (Resolved) Sepsis (Resolved) Severe sepsis (Resolved) RECOMMENDATIONS: 1. Continue antibiotics, pending finalized culture results. 2. Corticosteroids can be discontinued from my perspective. 3. Continue diuretic therapy. 4. Continue aerosol treatments. 5. Encourage incentive spirometer use while in bed. 6. Continue nocturnal Pap therapy. 7. Physical therapy to work with patient. IMPRESSIONS: 1. Severe sepsis secondary to gram-negative bacteremia/cystitis Concern for primary urinary source of infection with subsequent bloodstream seeding. Recommend continuing broad-spectrum antimicrobials, pending infectious work-up. The patient remains hemodynamically stable. Plan to repeat blood cultures. 2. Acute on chronic combined respiratory failure secondary to decompensated heart failure Clinical suspicion for worsening respiratory status secondary to a failure to compensate for increased metabolic demand of severe sepsis. Patient appears to be doing much better at this time. Patient's troponin is consistent with supply demand mismatch secondary to hypoxemia. Continue diuretic therapy. 3. Diabetes mellitus/coronary artery disease/history of CVA/hypertension/hyperlipidemia/obesity/anxiety/depression/JIM Complicates care, management, recovery and prognosis. Continue nocturnal Pap therapy as ordered with naps and nightly. This note was generated with [employer] software. It may contain incorrect words, spelling, and punctuation that were not noted in checking the note before signing. DISPOSITION: The patient is medically stable for transfer out of the intensive care unit. Code Visit Inpatient E&M: 91830 [facility] L3
[2019-02-22] MEDS: Ipratropium/Albuterol Sulfate 3 ML AMPUL.NEB INHALATION ×2 (06:42→18:56)
[2019-02-22 07:30] LABS: Bedside Glucose 274 mg/dL (70-110)
[2019-02-22] MEDS: Insulin Lispro 100 UNIT/ML INSULN.PEN 12 UNIT SC ×3 (08:06→17:23)
[2019-02-22] MEDS: Insulin Lispro 100 UNIT/ML INSULN.PEN SC ×4 (08:06→21:36)
[2019-02-22] MEDS: Enoxaparin 40 MG/0.4 ML Syringe SC (08:08)
[2019-02-22] MEDS: Tamsulosin HCl 0.4 MG Capsule PO (08:10)
[2019-02-22] MEDS: Aspirin 81 MG TAB.CHEW PO (08:10)
[2019-02-22] MEDS: Polyethylene Glycol 3350 17 GM PACKET PO (08:10)
[2019-02-22] MEDS: Furosemide 40 MG/4 ML Vial IV ×2 (08:11→17:23)
[2019-02-22] MEDS: Amantadine 100 MG Capsule PO (08:11)
[2019-02-22] MEDS: Senna/Docusate Sodium 1 Tablet PO ×2 (08:12→21:36)
[2019-02-22] MEDS: FLUoxetine 20 MG Capsule PO (08:12)
[2019-02-22] MEDS: Pantoprazole Sodium 40 MG Tablet PO (08:12)
--- NOTE | 2019-02-22 08:20 | PN_ITS ---
Patient Problems: Active and Suspected Problems (Last Reviewed 06/18/18 @ 10:28 by Prashanth Peña MD) Severe sepsis (Acute) COPD exacerbation (Acute) Pneumonia (Acute) Acute respiratory failure with hypoxia and hypercapnia (Acute) Recurrent UTI (urinary tract infection) (Acute) Subjective: Feels good. No shortness of breath. No chest pain. Vitals/I&O's: Vital Signs Temp Pulse Resp BP Pulse Ox 36.6 C 69 18 169/71 H 93 02/22/19 07:00 02/22/19 07:40 02/22/19 07:40 02/22/19 07:00 02/22/19 07:40 Oxygen Flow Rate (L/min) 1 Oxygen Delivery Method Room Air Weight: 126.1 kg Body Mass Index (BMI) 36.1 Finger Stick Blood Glucose 250 Intake and Output for Last 24 Hours 02/20/19 02/21/19 02/22/19 23:59 23:59 23:59 Intake Total 640 / 760 1500 / 1500 290 / 290 Output Total 2210 / 2210 650 / 650 Balance 640 / 740 -710 / -710 -360 / -360 General: Alert, No apparent distress, - - no respiratory distress, no conversational dyspnea. on room air. HEENT: Atraumatic, Normocephalic Oral: Moist Mucosa, No Gingival or Mucosal Lesions/ Ulcerations Neck: No Nodes, Thyroid Normal Size and Texture Lungs: Clear to auscultation, Normal air movement, No rhonchi, No wheeze Cardiovascular: Regular rate, Regular Rhythm, Normal S1, Normal S2, No murmurs Abdomen: Bowel Sounds Present, Soft, Non Tender, Non-Distended, No Hepato- splenomegaly Extremities: No clubbing, No edema Skin: No rashes, No breakdown Psych/Mental Status: Normal Affect, Appropriate Microbiology Past 72 Hours 02/20/19 23:45 Mucosa - Nasopharyngeal Respiratory Panel (PCR) - Final 02/20/19 18:50 Blood Culture (Wb) - Venous Blood Culture - Preliminary 02/20/19 23:20 Urine Catheter - Catheter Legionella Antigen - Final 02/20/19 23:20 Urine Catheter - Catheter Streptococcus pneumoniae Antigen (M - Final Laboratory Results 02/21/19 08:51: POC Glucose 309 H 02/21/19 11:08: POC Glucose 377 H 02/21/19 16:16: POC Glucose 235 H 02/21/19 21:36: POC Glucose 301 H 02/22/19 04:30: WBC 14.2 H, RBC 4.00 L, Hgb 11.6 L, Hct 37.0 L, MCV 92.5, MCH 29.0, MCHC 31.4 L, RDW Std Deviation 46.1 H, RDW Coeff of Sherin 13.5, Plt Count 198, MPV 11.8, Immature Gran % (Auto) 0.600, Neut % (Auto) 88.1 H, Lymph % (Auto) 5.5 L, Stephenson % (Auto) 4.7, Eos % (Auto) 1.0, Baso % (Auto) 0.1, Absolute Neuts (auto) 12.5 H, Absolute Lymphs (auto) 0.78 L, Nucleated RBC % 0 02/22/19 04:30: Sodium 140, Potassium 3.9, Chloride 103, Carbon Dioxide 30.0, Anion Gap 7, BUN 28 H, Creatinine 1.03, Estim Creat Clear Calc 79.81, Est GFR (MDRD) Af Amer 92, Est GFR (MDRD) Non-Af 76, BUN/Creatinine Ratio 27.2 H, Glucose 266 H, Calcium 9.0 02/22/19 07:23: POC Glucose 274 H Current Medications Acetaminophen (Tylenol) 650 mg PO Q6H PRN PRN PRN Reason: Non-cardiac pain (mod-severe) Hydrocodone Bitart/Acetaminophen ([place] 5mg-325mg) 1 - 2 tablet PO Q4H PRN PRN PRN Reason: MOD-SEVERE PAIN (4-10/10) Albuterol Sulfate (Ventolin Aerosols) 2.5 mg INHALATION Q2H PRN PRN PRN Reason: dyspnea, wheezing Albuterol/Ipratropium (Duoneb) 3 ml INHALATION Q4HWA.RT [facility] Last Admin: 02/22/19 06:42 Dose: 3 ml Documented by: Amantadine HCl (Symmetrel) 100 mg PO DAILY [facility] Last Admin: 02/22/19 08:11 Dose: 100 mg Documented by: Aspirin (Aspirin, Baby) 81 mg PO DAILY@0800 [facility] Last Admin: 02/22/19 08:10 Dose: 81 mg Documented by: Chlorhexidine Gluconate () 1 each TOPICAL DAILY [facility] Last Admin: 02/22/19 06:31 Dose: 1 each Documented by: Dextrose (D50w Syringe) 0 gm IV X1 PRN; Protocol PRN Reason: Hypoglycemia Enoxaparin Sodium (Lovenox) 40 mg SC DAILY@1000 [facility] Last Admin: 02/22/19 08:08 Dose: 40 mg Documented by: Fluoxetine HCl (Prozac) 20 mg PO DAILY [facility] Last Admin: 02/22/19 08:12 Dose: 20 mg Documented by: Fluticasone Propionate (Flonase Nasal [place]) 2 spray NASAL DAILY [facility] Last Admin: 02/22/19 08:11 Dose: Not Given Documented by: Furosemide (Lasix) 40 mg IV BID@1000,1800 [facility] Last Admin: 02/22/19 08:11 Dose: 40 mg Documented by: Glucagon () 1 mg IM .X1 PRN PRN Reason: Hypoglycemia Hydralazine HCl (Apresoline Iv) 10 mg IV Q4H PRN PRN PRN Reason: SBP > 160 Hydroxyzine Pamoate (Vistaril Pamoate Capsule) 25 mg PO Q6H PRN PRN PRN Reason: ITCHING Sodium Chloride () 250 mls @ 15 mls/hr IV .[id number] PRN PRN Reason: SALINE FLUSH Piperacillin Sod/Tazobactam (Sod 3.375 gm/ Sodium Chloride) 50 mls @ 12.5 mls/hr IV Q8 [facility] Last Admin: 02/22/19 05:52 Dose: 12.5 mls/hr Documented by: Insulin Glargine (Lantus (Bkc)) 25 units SC BID [facility] Last Admin: 02/22/19 08:07 Dose: 25 u Documented by: Insulin Human Lispro (Humalog Kwikpen (Bkc)) 12 unit SC TIDCM [facility] Last Admin: 02/22/19 08:06 Dose: 12 u Documented by: Insulin Human Lispro (Humalog Kwikpen (Bkc)) 0 unit SC ACHS [facility]; Protocol Last Admin: 02/22/19 08:06 Dose: 6 u Documented by: Magnesium Hydroxide (Milk Of Magnesia) 30 ml PO DAILY PRN PRN Reason: Constipation Metoprolol Tartrate (Lopressor (Beta Devante)) 100 mg PO TID [facility] Last Admin: 02/22/19 05:56 Dose: 100 mg Documented by: Nitroglycerin (Nitrostat) 0.4 mg SUBLINGUAL Q5M PRN PRN Reason: CARDIAC/CHEST PAIN Nystatin (Mycostatin Powder) 1 applic TOPICAL TID [facility]; Protocol Last Admin: 02/22/19 05:53 Dose: 1 applicatio Documented by: Ondansetron HCl (Zofran) 4 mg IV Q8H PRN PRN PRN Reason: NAUSEA/VOMITING Pantoprazole Sodium (Protonix) 40 mg PO DAILY [facility] Last Admin: 02/22/19 08:12 Dose: 40 mg Documented by: Polyethylene Glycol (Miralax) 17 gm PO DAILY [facility] Last Admin: 02/22/19 08:10 Dose: 17 gm Documented by: Potassium Chloride (K-Dur) 20 meq PO DAILY [facility] Last Admin: 02/22/19 08:11 Dose: 20 meq Documented by: Pramipexole Dihydrochloride (Mirapex) 0.25 mg PO QHS [facility] Last Admin: 02/21/19 21:40 Dose: 0.25 mg Documented by: Pravastatin Sodium (Pravachol) 80 mg PO QHS [facility] Last Admin: 02/21/19 21:40 Dose: 80 mg Documented by: Senna/Docusate Sodium (Senokot-S, Page-Colace) 1 tablet PO BID [facility] Last Admin: 02/22/19 08:12 Dose: 1 tablet Documented by: Sodium Chloride () 10 - 40 ml IV UD PRN PRN Reason: SALINE FLUSH Last Admin: 02/20/19 22:28 Dose: 20 ml Documented by: Tamsulosin HCl (Flomax) 0.4 mg PO DAILY [facility] Last Admin: 02/22/19 08:10 Dose: 0.4 mg Documented by: Medical Necessity - Tobacco Use Smoking Status: Former smoker Tobacco Use: Non-smoker Assessment/Plan All Active Problems (Last Reviewed 06/18/18 @ 10:28 by Prashanth Peña MD) Severe sepsis (Acute) COPD exacerbation (Acute) Pneumonia (Acute) Acute respiratory failure with hypoxia and hypercapnia (Acute) Recurrent UTI (urinary tract infection) (Acute) Acute on chronic systolic (congestive) heart failure (Acute) H/O coronary artery bypass surgery (Resolved ~2001) History of coronary artery stent placement (Resolved 02/20/17) Acute respiratory failure with hypoxia and hypercarbia (Resolved) Alcohol intoxication (Resolved) Complicated CAUTI (Resolved) Healthcare associated bacteremia due to Staphylococcus aureus (Resolved) Infected decubitus ulcer (Resolved) Infected decubitus ulcer (Resolved) Multifocal community-acquired pneumonia (Resolved) Right scapula fracture (Resolved) Sepsis (Resolved) Severe sepsis (Resolved) 1. Severe sepsis * 2/2 bacteremia and UTI * improved 2. Bacteremia: * GNR + in 1 of 2 bottles * 2/2 UTI * monitor 3. UTI, catheter-associated * follow up cultures * on pip/tazo * UCx still pending. * catheter changed by on 02/21 4. Respiratory distress * resolved * may have compensating for metabolic acidosis 5. NSTEMI * suspect type 2/demand ischemia from severe sepsis and respiratory distress * cardiology consult 6. VTE prophylaxis: mod risk. LMWH 7. DM2: * uncontrolled * exacerbated by sepsis and steroids * resume basal at 35 units BID (from 25 currently on) 8. SPC malfunction * was leaking around catheter and patient had to force urine out * changed from 16f to 18f catheter on the * follow up w as outpt. May need upsized to 20f then. Code Visit Inpatient E&M: 20338 [facility] L2
--- NOTE | 2019-02-22 10:10 | NURSING ---
report called to [facility] ,transferred per bed with belongings to room 121, present
[2019-02-22 11:56] LABS: Bedside Glucose 359 mg/dL (70-110)
--- NOTE | 2019-02-22 13:40 | CON.PCM_ITS ---
Problem List (1) Abnormal cardiac enzyme level Status: Acute (2) CAD in [place] artery Status: Chronic (3) History of coronary artery stent placement Status: Resolved Comment: [facility] w/[id number] LAD w/ 3.0 x 9 mm Resolute Stent (grafts occluded x 3) 02/20/17 (4) H/O coronary artery bypass surgery Status: Resolved Comment: CABG x 3 Radial Artery-LAD, SVG-RCA, SVG-OM2 (5) Ischemic cardiomyopathy Status: Chronic (6) Hyperlipidemia Status: Chronic Qualifiers: Hyperlipidemia type: unspecified Qualified Code(s): E78.5 - Hyperlipidemia, unspecified (7) Essential (primary) hypertension Status: Chronic (8) COPD (chronic obstructive pulmonary disease) Status: Chronic Qualifiers: COPD type: unspecified COPD Qualified Code(s): J44.9 - Chronic obstructive pulmonary disease, unspecified (9) Recurrent UTI (urinary tract infection) Status: Acute (10) Severe sepsis Status: Acute (11) Acute respiratory failure with hypoxia and hypercapnia Status: Acute Reason for Consult Date of Consultation: 02/22/19 History of Present Illness: The patient is a 68 year old white male with a past cardiovascular history of hyperlipidemia, hypertension, CAD, PCI, CABG, ischemic mediated cardiomyopathy, superimposed upon a history of COPD and previous traumatic brain injury who now is undergoing evaluation care for concerns of UTI related sepsis syndrome and acute respiratory failure with findings of abnormal cardiac enzymes. The patient states that he had been doing reasonably well until recently. Recently, just prior to admission, he noted more difficulty with his suprapubic catheter. He was being evaluated by urology. However his symptoms progressed. He had dark bloody appearing urine. He also noted that he became more and more short of breath and dyspneic. He presented to the hospital for further evaluation and care. After evaluation he was thought to have concerns of a UTI related sepsis syndrome and acute respiratory failure potentially secondary to acute CHF/pulmonary edema and/or pneumonia. He was placed in the ICU for further evaluation and care. He is undergone evaluation which included cardiac enzymes which have demonstrated indeterminate troponin I levels. An ECG was performed that demonstrated sinus rhythm with nonspecific ST and T wave changes followed by an ECG with sinus rhythm with T wave changes potentially compatible with myocardial ischemia in the anterior distribution. His chest x-ray suggested findings compatible with CHF/pulmonary edema. He has been treated medically with IV diuresis and IV antibiotics. He has had improvement in his clinical status with respect to his respiratory status and his urine is clearing. He states that he has denied any chest discomfort other than what he felt when he became short of breath and dyspneic prior to admission. He states prior to that event he felt he was doing well with his respiratory status. He has had chronic edema of the lower extremities. He has denied any near syncope or syncope. [] Past Medical History Allergies/Adverse Reactions: Allergies cilostazol Allergy (Verified 02/20/19 18:38) Hives colestipol Allergy (Verified 02/20/19 18:38) Hives diltiazem Allergy (Verified 02/20/19 18:38) Hives gemfibrozil Allergy (Verified 02/20/19 18:38) Hives naproxen [From Naprosyn] Allergy (Verified 02/20/19 18:38) Hives Nitrate Analogues Allergy (Verified 02/20/19 18:38) Hives Penicillins Allergy (Verified 02/20/19 18:38) Hives procainamide Allergy (Verified 02/20/19 18:38) Hives rosuvastatin Allergy (Verified 02/20/19 18:38) Hives simvastatin Allergy (Verified 02/20/19 18:38) Hives isosorbide Adverse Reaction (Severe, Verified 02/20/19 18:38) Unknown Home Medications: Ambulatory Orders Medication Instructions Recorded Amantadine [Symmetrel] 100 mg PO DAILY 04/17/18 Budesonide [Pulmicort] 0.5 mg IH BID 04/17/18 Fluticasone 0.05% [Flonase Nasal 2 spray NASAL DAILY 04/17/18 [place]] Insulin Lispro [Humalog] 12 unit SUBCUT TIDCM 04/17/18 Metoprolol Tartrate [Lopressor 100 mg PO TID 04/17/18 (beta stepan)] Pantoprazole Sodium [Protonix] 40 mg PO DAILY 04/17/18 Polyethylene Glycol 3350 [Miralax] 17 gm PO DAILY 04/17/18 Pramipexole Di-HCl [Mirapex] 0.25 mg PO QHS 04/17/18 Pravastatin Sodium 80 mg PO QHS 04/17/18 Senna/Docusate Sodium [Senokot-S] 2 tab PO BID 04/17/18 Tamsulosin HCl [Flomax] 0.4 mg PO DAILY 04/17/18 Insulin Lispro [Humalog KwikPen] See Protocol SUBCUT ACHS 04/20/18 insuln.pen furosemide 40 mg tablet 40 mg PO BID tab 06/17/18 potassium chloride ER 20 mEq 20 meq PO DAILY 90 Days #90 tab 06/17/18 tablet,extended release(part/cryst) Fluoxetine [Prozac] 20 mg PO DAILY 02/20/19 Hydroxyzine HCl 25 mg PO Q6H PRN 02/20/19 Insulin Glargine,Hum.rec.anlog 35 unit SUBCUT BID 02/20/19 [Lantus] Nitroglycerin 0.4 mg SL PRN PRN 02/20/19 Past Medical History (Chronic Problems): Chronic Problems (Last Reviewed 06/18/18 @ 10:28 by Prashanth Peña MD) COPD with acute exacerbation (Chronic) Chronic suprapubic catheter (Chronic) CAD in [place] artery (Chronic) Hyperlipidemia (Chronic) Ischemic cardiomyopathy (Chronic) Essential (primary) hypertension (Chronic) Atherosclerosis of coronary artery bypass graft without angina pectoris (Chronic) [facility] w/[id number]-[id number]-Glyz LAD w/ 3.0 x 9 mm Resolute Stent (grafts occluded x 3) 02/20/17 CVA (cerebral vascular accident) (Chronic) 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 Psychiatric History: Anxiety, Depression - *Family History Maternal Family History: Family History (Last Reviewed 06/18/18 @ 10:28 by Prashanth Peña MD) Brother Heart disease Father Heart disease History Items: - - Alzheimer's dementia. Paternal Family History: Family History (Last Reviewed 06/18/18 @ 10:28 by Prashanth Peña MD) Brother Heart disease Father Heart disease History Items: Heart Disease Lives: Spouse/ Significant Other Smoking Status: Former smoker Tobacco Use: Non-smoker Alcohol: None Drugs: None Review of Systems - Review of Systems General: Denies: Fever, Night Sweats, Fatigue Cardiovascular: Reports: Chest Discomfort, Shortness of Breath, Peripheral Ed castro. Denies: Orthopnea, PND, Palpitations, Lightheadedness, Dizziness, Near Syncope, Syncope Respiratory: Reports: Shortness of Breath. Denies: Cough, Sputum Production, Hemoptysis Gastrointestinal: Denies: Hematemesis, Hematochezia, Melena Genitourinary: Denies: Dysuria, Hematuria Skin: Denies: Rash Subjectve: This is a 68-year-old white male who appears to be resting reasonably comfortably at the moment without O2 support. Objective: Vital Signs Temp Pulse Resp BP Pulse Ox 97.8 F 69 18 169/71 H 93 02/22/19 07:00 02/22/19 07:40 02/22/19 07:40 02/22/19 07:00 02/22/19 07:40 Oxygen Flow Rate (L/min) 1 Oxygen Delivery Method Room Air Weight: 278 lb 0.046 oz Body Mass Index (BMI) 36.1 Finger Stick Blood Glucose 250 Intake and Output for Last 24 Hours 02/20/19 02/21/19 02/22/19 23:59 23:59 23:59 Intake Total 640 / 760 1500 / 1500 640 / 640 Output Total 2210 / 2210 1550 / 1550 Balance 640 / 740 -710 / -710 -910 / -910 General: Awake, Alert, Oriented x 3, Cooperative, No Acute Distress, Obese HEENT: Atraumatic, Normocephalic, PERRL, EOMI, Sclera Non Icteric Oral: Moist Mucosa Neck: Supple, Good ROM, No JVD Lungs: Clear to auscultation Cardiovascular: Regular Rhythm, Normal S1, Normal S2 Abdomen: Bowel Sounds Present, Soft, Non Tender Extremities: Mild RLE Edema, Mild LLE Edema Psych/Mental Status: Appropriate 02/22/19 04:30: WBC 14.2 H, RBC 4.00 L, Hgb 11.6 L, Hct 37.0 L, MCV 92.5, MCH 29.0, MCHC 31.4 L, Plt Count 198, MPV 11.8, Immature Gran % (Auto) 0.600, Neut % (Auto) 88.1 H, Lymph % (Auto) 5.5 L, [place] % (Auto) 4.7, Eos % (Auto) 1.0, Baso % (Auto) 0.1, Absolute Neuts (auto) 12.5 H, Nucleated RBC % 0 02/22/19 04:30: Sodium 140, Potassium 3.9, Chloride 103, Carbon Dioxide 30.0, Anion Gap 7, BUN 28 H, Creatinine 1.03, Est GFR (MDRD) Af Amer 92, Est GFR (MDRD) Non-Af 76, BUN/Creatinine Ratio 27.2 H, Glucose 266 H, Calcium 9.0 Rhythm: Sinus rhythm EKG: As noted above ECHO: 12-29-18: Left ventricle: Reported as mildly dilated with an LVEF of 55% Cardiac Cath: 02-20-17: Summary: LAD PCI with high-grade restenosis; LCx occluded; RCA occluded; left to right collateral flow; radial artery graft to the LAD occluded; SVG graft to the OM occluded; SVG graft to the RCA occluded PCI: 02-20-17: LAD PCI CXR: As noted above Assessment/Plan 1. Abnormal cardiac enzymes The patient does have abnormal cardiac enzymes. Based on the patient's clinical scenario this may be a type II supply demand mismatch event as opposed to a new primary acute coronary syndrome event. At the present time he appears to be symptomatically improved and hemodynamic ally stable. At the moment he will continue medical management. As his clinical course proceeds consideration will be given as to whether or not he requires any additional noninvasive or invasive cardiovascular testing. 2. CAD status post PCI status post CABG The patient has had extensive cardiovascular disease and revascularization therapy as noted above. He has requested continued medical management. He states he would be amenable to repeat evaluation with diagnostic cardiac catheterization and potentially PCI but does not want to be considered for any repeat cardiac surgical procedures. At the present time he will continue to be followed. He will continue medical management. As noted above, as his clinical course progresses and he recuperates from his sepsis syndrome and his acute respiratory event, consideration will be given as to whether or not he requires additional noninvasive or invasive cardiac evaluation. 3. Ischemic mediated cardiomyopathy He has been reported as having an underlying ischemic mediated cardiomyopathy. He has had previous noninvasive studies reporting his LVEF to be low with a previous echocardiogram from February 2017 reporting an LVEF of 25% followed by an echocardiogram in March 2017 reporting an LVEF of 55%. His most recent echocardiogram from this year is as noted above. At the present time he appears to be symptomatically improved with respect of concerns of his acute shortness of breath/dyspnea and concerns of CHF/pulmonary edema. He will continue to be followed. He will continue medical therapy. His LV systolic function/LVEF can be reassessed as needed. 4. Hyperlipidemia He will continue medical management as deemed appropriate. 5. Hypertension He will continue antihypertensive therapy with adjustment of medications as needed. 6. COPD He does have a history of COPD. He does wear a CPAP device at home. He will continue evaluation care per pulmonology. 7. Sepsis syndrome He is thought to have sepsis syndrome secondary to UTI. He is undergone evaluation by internal medicine and urology. He has been treated. His urinary issues appear to be improving. 8. Acute respiratory failure He was felt to have acute respiratory failure. This may have been a secondary event secondary to his acute noncardiovascular event superimposed upon his cardiovascular history as well as his pulmonary history. He has been treated with diuretic therapy. He appears to be improving. He will continue medical management and follow-up. Overall, the present time, the patient does appear to be improving. He will continue medical management and follow-up. With respect to his medications he will continue antiplatelet therapy as deemed appropriate. If there is no obvious contraindication from a urologic standpoint secondary to his recent reports of hematuria he may be considered, especially if he were to proceed with additional cardiovascular studies such as repeat cardiac catheterization and/or possible PCI, for additional antiplatelet therapy with agents such as clopidogrel/Plavix. He can have nitrates as needed. He will continue his beta- stepan therapy. He did improve with diuretic therapy and this can be continued as needed. He will continue lipid-lowering therapy as deemed appropriate and tolerated. The above case was discussed with the patient, his spouse, and his [id number] a [facility] RN. This note was generated with [employer] software. It may contain incorrect words, spelling, and punctuation that were not noted in checking the note before signing.
[2019-02-22 16:50] LABS: Bedside Glucose 311 mg/dL (70-110)
[2019-02-22] MEDS: 0.9% NaCl Peripheral Flush Adult/Peds IV ×2 (17:24→21:46)
[2019-02-22] MEDS: Pravastatin 80 MG Tablet PO (21:36)
[2019-02-22] MEDS: Pramipexole Di-HCl 0.25 MG Tablet PO (21:36)
[2019-02-22] MEDS: HYDROcodone Bitartrate/Apap 5/325 Tablet PO (21:48)
[2019-02-22 22:15] LABS: Bedside Glucose 262 mg/dL (70-110)
[2019-02-23] VITALS (22 sets, daily range): BP systolic 113–135; BP diastolic 49–87; PULSE 50–96; RESP 12–24; TEMP 35.6–36.5; O2SAT 94–99
[2019-02-23 05:31] LABS: Absolute Neutrophil Count 7.1 X10^3/uL (2.0-7.7); Basophil# 0.02 X10^3/uL; Basophil% 0.2 % (0-1); Eosinophil# 0.04 X10^3/uL; Eosinophils% 0.4 % (0-5); Hemoglobin 11.1 g/dL (13.0-16.5); Lymphocyte % 20.2 % (19-41); Mean Corp Hgb Conc 30.8 g/dL (32-36); Mean Corpuscular Hgb 28.7 pg (27.0-32.0); Mean Platelet Vol. 10.5 fl (6.2-12.0); Monocyte# 0.68 X10^3/uL; Monocyte% 6.9 % (0-10); NRBC Flagged by Analyzer 0 % (0-5); Neutrophil # 7.12 X10^3/uL (2.7-7.7); Neutrophil % 71.7 % (47-70); Platelet Count 182 K/mm3 (150-450); RBC Distribution Width CV 13.5 % (11.6-14.6); Red Blood Count 3.87 M/mm3 (4.6-6.2); White Blood Count 9.9 K/mm3 (4.4-11.0)
[2019-02-23 05:49] LABS: Anion Gap 6 (5-15); BUN 30 mg/dL (7-18); BUN/Creat Ratio 26.8 RATIO (10-20); Calcium,Total 8.8 mg/dL (8.5-10.1); Chloride 103 mmol/L (98-107); Creatinine, Serum 1.12 mg/dL (0.70-1.30); EST Glomerular Filtration Rate 69 mL/min (>60); Est Glom Filt Rate - Afr Amer 84 mL/min (>60); Estimated Creatinine Clearance 73.39 ml/min; Glucose 156 mg/dL (74-106); Potassium 3.7 mmol/L (3.5-5.1); Sodium Level 142 mmol/L (136-145)
[2019-02-23] MEDS: Metoprolol Tartrate 100 MG Tablet PO ×3 (06:33→22:08)
[2019-02-23] MEDS: Nystatin Powder 15gm Bottle 1 APPLIC TOPICAL ×3 (06:33→22:09)
[2019-02-23] MEDS: Ipratropium/Albuterol Sulfate 3 ML AMPUL.NEB INHALATION ×3 (07:01→19:40)
--- NOTE | 2019-02-23 07:48 | PN_ITS ---
Patient Problems: Active and Suspected Problems (Last Reviewed 06/18/18 @ 10:28 by Prashanth Peña MD) Severe sepsis (Acute) COPD exacerbation (Acute) Pneumonia (Acute) Acute respiratory failure with hypoxia and hypercapnia (Acute) Recurrent UTI (urinary tract infection) (Acute) Abnormal cardiac enzyme level (Acute) Subjective: The patient was seen and examined at the bedside this morning. Events from the last 24 hours have been reviewed. The patient is currently afebrile, hemodynamically stable and maintaining appropriate oxygen saturations on room air. The patient once again tolerated BiPAP overnight. Objective: The patient's most recent lab work, culture data and imaging studies have all been personally reviewed. Strep and urine Legionella antigens were both negative. Respiratory viral panel was negative. Preliminary blood culture from February 20 was positive for E. coli. Urine culture was positive for MRSA and pseudomonas aeruginosa. - Physical Exam General: Alert, Oriented x3, Cooperative, No apparent distress HEENT: Atraumatic, PERRLA, Normocephalic Oral: No Gingival or Mucosal Lesions/ Ulcerations Neck: Supple, No Nodes, Trachea Midline Lungs: No rhonchi, No wheeze, No rales, Diminished Cardiovascular: Regular rate, Regular Rhythm, Normal S1, Normal S2, Murmur Abdomen: Bowel Sounds Present, Soft, Non Tender, Obese, - - Ostomy and suprapubic catheter in place Extremities: No clubbing, No cyanosis, No edema Skin: - - No significant changes from previous. Musculoskeletal: No Tenderness to Palpation of Joints or Extremities, No Muscle Wasting Lymphatic: No Cervical, Supraclavicular, or Inguinal Adenopathy Neurological: Cranial nerves II-XII grossly intact Psych/Mental Status: Normal Affect, Appropriate Vital Signs Temp Pulse Resp BP Pulse Ox 97.4 F L 58 L 20 H 135/69 H 99 02/23/19 06:30 02/23/19 06:49 02/23/19 06:30 02/23/19 06:30 02/23/19 06:30 Oxygen Flow Rate (L/min) 1 Oxygen Delivery Method Room Air Weight: 315 lb 14.758 oz Body Mass Index (BMI) 36.1 Finger Stick Blood Glucose 250 Intake and Output for Last 24 Hours 02/21/19 02/22/19 02/23/19 23:59 23:59 23:59 Intake Total 1500 / 1500 1969 / 1970 650 / 650 Output Total 2210 / 2210 3200 / 3200 2200 / 2200 Balance -710 / -710 -1230 / -1230 -1550 / -1550 Microbiology Past 72 Hours 02/20/19 18:50 Blood Culture - Final Blood Culture (Wb) - Venous Escherichia coli 02/20/19 23:20 Urine Culture - Final Urine Catheter - Catheter Meth. resistant Staph. aureus Pseudomonas aeroginosa 02/20/19 23:45 Respiratory Panel (PCR) - Final Mucosa - Nasopharyngeal 02/20/19 23:20 Legionella Antigen - Final Urine Catheter - Catheter 02/20/19 23:20 Streptococcus pneumoniae Antigen (M - Final Urine Catheter - Catheter Laboratory Tests Past 24 Hrs 02/23/19 02/23/19 05:10 05:10 WBC 9.9 RBC 3.87 L Hgb 11.1 L Hct 36.0 L MCV 93.0 MCH 28.7 MCHC 30.8 L RDW Std Deviation 46.0 H RDW Coeff of Sherin 13.5 Plt Count 182 MPV 10.5 Immature Gran % (Auto) 0.600 Neut % (Auto) 71.7 H Lymph % (Auto) 20.2 [place] % (Auto) 6.9 Eos % (Auto) 0.4 Baso % (Auto) 0.2 Absolute Neuts (auto) 7.1 Absolute Lymphs (auto) 2.00 Nucleated RBC % 0 Sodium 142 Potassium 3.7 Chloride 103 Carbon Dioxide 33.0 H Anion Gap 6 BUN 30 H Creatinine 1.12 Estim Creat Clear Calc 73.39 Est GFR (MDRD) Af Amer 84 Est GFR (MDRD) Non-Af 69 BUN/Creatinine Ratio 26.8 H Glucose 156 H Calcium 8.8 POC Glucose 02/22/19 02/22/19 02/22/19 21:29 16:39 11:46 POC Glucose 262 H 311 H 359 H Clinical Impression(s) from Imaging Studies Chest X-Ray 02/20/19 18:50 IMPRESSION: Unfavorable change. Mild to moderate pulmonary edema. No sizable effusion. Electronically Signed: Kyaw Esparza MD ([place]) at 19:02 EDT , Service support , Chest X-Ray 02/21/19 05:55 IMPRESSION: The lungs are clear. Electronically Signed: Bakari Briggs, at 8:59 EDT , Service support , Medical Necessity - Tobacco Use Smoking Status: Former smoker Tobacco Use: Non-smoker Assessment/Plan All Active Problems (Last Reviewed 06/18/18 @ 10:28 by Prashanth Peña MD) Severe sepsis (Acute) COPD exacerbation (Acute) Pneumonia (Acute) Acute respiratory failure with hypoxia and hypercapnia (Acute) Recurrent UTI (urinary tract infection) (Acute) Abnormal cardiac enzyme level (Acute) Acute on chronic systolic (congestive) heart failure (Acute) H/O coronary artery bypass surgery (Resolved ~2001) History of coronary artery stent placement (Resolved 02/20/17) Acute respiratory failure with hypoxia and hypercarbia (Resolved) Alcohol intoxication (Resolved) Complicated CAUTI (Resolved) Healthcare associated bacteremia due to Staphylococcus aureus (Resolved) Infected decubitus ulcer (Resolved) Infected decubitus ulcer (Resolved) Multifocal community-acquired pneumonia (Resolved) Right scapula fracture (Resolved) Sepsis (Resolved) Severe sepsis (Resolved) RECOMMENDATIONS: 1. Continue antibiotics. 2. Continue diuretic therapy. 3. Continue aerosol treatments. 4. Encourage incentive spirometer use while in bed. 5. Continue nocturnal Pap therapy. 6. Physical therapy to work with patient. IMPRESSIONS: 1. Severe sepsis secondary to gram-negative bacteremia/cystitis Concern for primary urinary source of infection with subsequent bloodstream seeding. Recommend continuing broad-spectrum antimicrobials, pending finalized infectious work-up. The patient remains hemodynamically stable. 2. Acute on chronic combined respiratory failure secondary to decompensated heart failure Clinical suspicion for worsening respiratory status secondary to a failure to compensate for increased metabolic demand of severe sepsis. Patient appears to be doing much better at this time. Patient's troponin is consistent with supply demand mismatch secondary to hypoxemia. Continue diuretic therapy. 3. Diabetes mellitus/coronary artery disease/history of CVA/hypertension/hyperlipidemia/obesity/anxiety/depression/JIM Complicates care, management, recovery and prognosis. Continue nocturnal Pap therapy as ordered with naps and nightly. This note was generated with [id number] software. It may contain incorrect words, spelling, and punctuation that were not noted in checking the note before signing. As the patient has no further ICU/pulmonary needs, will sign off. Please call with any additional questions. Code Visit Inpatient E&M: 93859 Subs Hosp L2
[2019-02-23] MEDS: Insulin Lispro 100 UNIT/ML INSULN.PEN 12 UNIT SC ×3 (08:41→17:03)
[2019-02-23] MEDS: Tamsulosin HCl 0.4 MG Capsule PO (08:42)
[2019-02-23] MEDS: Aspirin 81 MG TAB.CHEW PO (08:42)
[2019-02-23] MEDS: Glucerna Shake 120 ML LIQUID PO (08:42)
[2019-02-23] MEDS: Furosemide 40 MG/4 ML Vial IV ×2 (08:44→17:03)
[2019-02-23] MEDS: Pantoprazole Sodium 40 MG Tablet PO (08:44)
[2019-02-23] MEDS: 0.9% NaCl Peripheral Flush Adult/Peds IV ×2 (08:44→17:03)
[2019-02-23] MEDS: Enoxaparin 40 MG/0.4 ML Syringe SC (08:44)
[2019-02-23] MEDS: Polyethylene Glycol 3350 17 GM PACKET PO (08:44)
[2019-02-23] MEDS: Amantadine 100 MG Capsule PO (08:45)
[2019-02-23] MEDS: Senna/Docusate Sodium 1 Tablet PO ×2 (08:45→22:08)
[2019-02-23] MEDS: FLUoxetine 20 MG Capsule PO (08:45)
[2019-02-23 09:16] LABS: Bedside Glucose 144 mg/dL (70-110)
--- NOTE | 2019-02-23 11:18 | CASEMGMT ---
LW/POA forms in paper chart, pt's Farideh is listed as POA. REILLY Lema
--- NOTE | 2019-02-23 11:20 | NURSING ---
Pt sitting up in chair getting breathing treatment. colostomy appliance is intact. patient alert and pleasant today. present at bedside. no further needs voiced at this time.
[2019-02-23] MEDS: Insulin Lispro 100 UNIT/ML INSULN.PEN SC ×3 (11:48→22:09)
[2019-02-23 11:55] LABS: Bedside Glucose 221 mg/dL (70-110)
--- NOTE | 2019-02-23 13:13 | PN_ITS ---
Patient Problems: Active and Suspected Problems (Last Reviewed 06/18/18 @ 10:28 by Prashanth Peña MD) Severe sepsis (Acute) COPD exacerbation (Acute) Pneumonia (Acute) Acute respiratory failure with hypoxia and hypercapnia (Acute) Recurrent UTI (urinary tract infection) (Acute) Abnormal cardiac enzyme level (Acute) Subjective: Feels good. No shortness of breath. Vitals/I&O's: Vital Signs Temp Pulse Resp BP Pulse Ox 36.3 C L 96 20 H 125/52 H 95 02/23/19 07:54 02/23/19 10:48 02/23/19 10:48 02/23/19 07:54 02/23/19 10:25 Oxygen Flow Rate (L/min) 1 Oxygen Delivery Method Room Air Weight: 143.3 kg Body Mass Index (BMI) 36.1 Finger Stick Blood Glucose 250 Intake and Output for Last 24 Hours 02/21/19 02/22/19 02/23/19 23:59 23:59 23:59 Intake Total 1500 / 1500 1969 / 1969 940 / 940 Output Total 2210 / 2210 3200 / 3200 3150 / 3150 Balance -710 / -710 -1230 / -1230 -2210 / -2210 General: Alert, No apparent distress, - - up in chair. no respiratory distress. no conversational dyspnea. HEENT: Atraumatic, Normocephalic Oral: Moist Mucosa, No Gingival or Mucosal Lesions/ Ulcerations Neck: No Nodes, Thyroid Normal Size and Texture Lungs: Clear to auscultation, Normal air movement, No rhonchi, No wheeze, No rales Cardiovascular: Regular rate, Regular Rhythm, Normal S1, Normal S2, No murmurs Abdomen: Bowel Sounds Present, Soft, Non Tender, Non-Distended, No Hepato- splenomegaly Extremities: No edema, No Calf Tenderness Skin: No rashes, No breakdown Psych/Mental Status: Normal Affect, Appropriate Microbiology Past 72 Hours 02/20/19 18:40 Blood Culture (Wb) - Venous Blood Culture - Preliminary No growth in 48 hours. 02/20/19 18:50 Blood Culture (Wb) - Venous Blood Culture - Final Escherichia coli 02/20/19 23:20 Urine Catheter - Catheter Urine Culture - Final Meth. resistant Staph. aureus Pseudomonas aeroginosa 02/20/19 23:45 Mucosa - Nasopharyngeal Respiratory Panel (PCR) - Final 02/20/19 23:20 Urine Catheter - Catheter Legionella Antigen - Final 02/20/19 23:20 Urine Catheter - Catheter Streptococcus pneumoniae Antigen (M - Final Laboratory Results 02/22/19 16:39: POC Glucose 311 H 02/22/19 21:29: POC Glucose 262 H 02/23/19 05:10: WBC 9.9, RBC 3.87 L, Hgb 11.1 L, Hct 36.0 L, MCV 93.0, MCH 28.7, MCHC 30.8 L, RDW Std Deviation 46.0 H, RDW Coeff of Sherin 13.5, Plt Count 182, MPV 10.5, Immature Gran % (Auto) 0.600, Neut % (Auto) 71.7 H, Lymph % (Auto) 20.2, [place] % (Auto) 6.9, Eos % (Auto) 0.4, Baso % (Auto) 0.2, Absolute Neuts (auto) 7.1, Absolute Lymphs (auto) 2.00, Nucleated RBC % 0 02/23/19 05:10: Sodium 142, Potassium 3.7, Chloride 103, Carbon Dioxide 33.0 H, Anion Gap 6, BUN 30 H, Creatinine 1.12, Estim Creat Clear Calc 73.39, Est GFR (MDRD) Af Amer 84, Est GFR (MDRD) Non-Af 69, BUN/Creatinine Ratio 26.8 H, Glucose 156 H, Calcium 8.8 02/23/19 08:40: POC Glucose 144 H 02/23/19 11:45: POC Glucose 221 H Current Medications Acetaminophen (Tylenol) 650 mg PO Q6H PRN PRN PRN Reason: Non-cardiac pain (mod-severe) Hydrocodone Bitart/Acetaminophen ([place] 5mg-325mg) 1 - 2 tablet PO Q4H PRN PRN PRN Reason: MOD-SEVERE PAIN (4-10/10) Last Admin: 02/22/19 21:48 Dose: 2 tablet Documented by: Albuterol Sulfate (Ventolin Aerosols) 2.5 mg INHALATION Q2H PRN PRN PRN Reason: dyspnea, wheezing Albuterol/Ipratropium (Duoneb) 3 ml INHALATION Q4HWA.RT BULL Last Admin: 02/23/19 10:48 Dose: 3 ml Documented by: Amantadine HCl (Symmetrel) 100 mg PO DAILY [facility] Last Admin: 02/23/19 08:45 Dose: 100 mg Documented by: Aspirin (Aspirin, Baby) 81 mg PO DAILY@0800 [facility] Last Admin: 02/23/19 08:42 Dose: 81 mg Documented by: Dextrose (D50w Syringe) 0 gm IV X1 PRN; Protocol PRN Reason: Hypoglycemia Enoxaparin Sodium (Lovenox) 40 mg SC DAILY@1000 [facility] Last Admin: 02/23/19 08:44 Dose: 40 mg Documented by: Fluoxetine HCl (Prozac) 20 mg PO DAILY [facility] Last Admin: 02/23/19 08:45 Dose: 20 mg Documented by: Fluticasone Propionate (Flonase Nasal [place]) 2 spray NASAL DAILY [facility] Last Admin: 02/23/19 08:43 Dose: Not Given Documented by: Furosemide (Lasix) 40 mg IV BID@1000,1800 [facility] Last Admin: 02/23/19 08:44 Dose: 40 mg Documented by: Glucagon () 1 mg IM .X1 PRN PRN Reason: Hypoglycemia Hydralazine HCl (Apresoline Iv) 10 mg IV Q4H PRN PRN PRN Reason: SBP > 160 Hydroxyzine Pamoate (Vistaril Pamoate Capsule) 25 mg PO Q6H PRN PRN PRN Reason: ITCHING Piperacillin Sod/Tazobactam (Sod 3.375 gm/ Sodium Chloride) 50 mls @ 12.5 mls/hr IV Q8 [facility] Last Infusion: 02/23/19 11:49 Dose: Infused Documented by: Insulin Glargine (Lantus (Bkc)) 35 units SC BID [facility] Last Admin: 02/23/19 08:43 Dose: 35 u Documented by: Insulin Human Lispro (Humalog Kwikpen (Bk)) 12 unit SC TIDCM [facility] Last Admin: 02/23/19 11:48 Dose: 12 u Documented by: Insulin Human Lispro (Humalog Kwikpen (Bkc)) 0 unit SC ACHS [facility]; Protocol Last Admin: 02/23/19 11:48 Dose: 4 u Documented by: Magnesium Hydroxide (Milk Of Magnesia) 30 ml PO DAILY PRN PRN Reason: Constipation Metoprolol Tartrate (Lopressor (Beta Devante)) 100 mg PO TID [facility] Last Admin: 02/23/19 06:33 Dose: 100 mg Documented by: Nitroglycerin (Nitrostat) 0.4 mg SUBLINGUAL Q5M PRN PRN Reason: CARDIAC/CHEST PAIN Nystatin (Mycostatin Powder) 1 applic TOPICAL TID [facility]; Protocol Last Admin: 02/23/19 06:33 Dose: 1 applicatio Documented by: Ondansetron HCl (Zofran) 4 mg IV Q8H PRN PRN PRN Reason: NAUSEA/VOMITING Pantoprazole Sodium (Protonix) 40 mg PO DAILY [facility] Last Admin: 02/23/19 08:44 Dose: 40 mg Documented by: Polyethylene Glycol (Miralax) 17 gm PO DAILY [facility] Last Admin: 02/23/19 08:44 Dose: 17 gm Documented by: Potassium Chloride (K-Dur) 20 meq PO DAILY [facility] Last Admin: 02/23/19 08:43 Dose: 20 meq Documented by: Pramipexole Dihydrochloride (Mirapex) 0.25 mg PO QHS [facility] Last Admin: 02/22/19 21:36 Dose: 0.25 mg Documented by: Pravastatin Sodium (Pravachol) 80 mg PO QHS [facility] Last Admin: 02/22/19 21:36 Dose: 80 mg Documented by: Senna/Docusate Sodium (Senokot-S, Page-Colace) 1 tablet PO BID [facility] Last Admin: 02/23/19 08:45 Dose: 1 tablet Documented by: Sodium Chloride () 10 - 40 ml IV UD PRN PRN Reason: SALINE FLUSH Last Admin: 02/23/19 08:44 Dose: 10 ml Documented by: Tamsulosin HCl (Flomax) 0.4 mg PO DAILY [facility] Last Admin: 02/23/19 08:42 Dose: 0.4 mg Documented by: Medical Necessity - Tobacco Use Smoking Status: Former smoker Tobacco Use: Non-smoker Assessment/Plan All Active Problems (Last Reviewed 06/18/18 @ 10:28 by Prashanth Peña MD) Severe sepsis (Acute) COPD exacerbation (Acute) Pneumonia (Acute) Acute respiratory failure with hypoxia and hypercapnia (Acute) Recurrent UTI (urinary tract infection) (Acute) Abnormal cardiac enzyme level (Acute) Acute on chronic systolic (congestive) heart failure (Acute) H/O coronary artery bypass surgery (Resolved ~2001) History of coronary artery stent placement (Resolved 02/20/17) Acute respiratory failure with hypoxia and hypercarbia (Resolved) Alcohol intoxication (Resolved) Complicated CAUTI (Resolved) Healthcare associated bacteremia due to Staphylococcus aureus (Resolved) Infected decubitus ulcer (Resolved) Infected decubitus ulcer (Resolved) Multifocal community-acquired pneumonia (Resolved) Right scapula fracture (Resolved) Sepsis (Resolved) Severe sepsis (Resolved) 1. Severe sepsis * 2/2 bacteremia and UTI * improved 2. Bacteremia: * E. coli + in 1 of 2 bottles * 2/2 UTI * monitor * consult ID for input. 3. UTI, catheter-associated * UCx showed low cfu's of MRSA and PsA. Question if colonization * on pip/tazo * UCx still pending. * catheter changed by on 02/21 4. Respiratory distress * resolved * may have compensating for metabolic acidosis 5. NSTEMI * suspect type 2/demand ischemia from severe sepsis and respiratory distress * cardiology consult 6. VTE prophylaxis: mod risk. LMWH 7. DM2: * uncontrolled * exacerbated by sepsis and steroids * resume basal at 35 units BID (from 25 currently on) 8. SPC malfunction * was leaking around catheter and patient had to force urine out * changed from 16f to 18f catheter on the * follow up w FABIAN as outpt. May need upsized to 20f then. DW patient's . Code Visit Inpatient E&M: 51031 Subs Hosp L2
--- NOTE | 2019-02-23 14:39 | NURSING ---
Read and reviewed documentation
--- NOTE | 2019-02-23 15:35 | CON.PCM_ITS ---
Problem List (1) Bacteremia due to Escherichia coli Status: Acute Reason for Consult: bacteremia Consulted by: Dr. Felix History of Present Illness: The patient is a 68 year old M with h/o fall, hemorrhagic stroke, course complicated by sacral osteo requiring diverting ostomy. Had suprapubic cath. reports intermittent difficulty draining urine for past few months, but this worsened over the past week. Developed fever, chills, aches. Some headache and nausea. No abd pain, no change in stool. No blood in colostomy. Came to ED, fever to 102.3, started on vanc/zosyn, then vanc/ceftriaxone, then zosyn. Suprapubic catheter replaced by Dr. Esteban with drainage of purulent urine. Feeling much better. Full ROS performed and neg except as noted above. 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) Traumatic brain injury (Chronic) Intraparenchymal hemorrhage of brain (Chronic) Subarachnoid hemorrhage (Chronic) Subdural hematoma (Chronic) Intraventricular hemorrhage (Chronic) Tobacco abuse (Chronic) Alcohol abuse (Chronic) Non-ST elevation myocardial infarction (NSTEMI), initial care episode (Chronic) 02/16/17 COPD (chronic obstructive pulmonary disease) (Chronic) Allergies/Adverse Reactions: Allergies cilostazol Allergy (Verified 02/20/19 18:38) Hives colestipol Allergy (Verified 02/20/19 18:38) Hives diltiazem Allergy (Verified 02/20/19 18:38) Hives gemfibrozil Allergy (Verified 02/20/19 18:38) Hives naproxen [From Naprosyn] Allergy (Verified 02/20/19 18:38) Hives Nitrate Analogues Allergy (Verified 02/20/19 18:38) Hives Penicillins Allergy (Verified 02/20/19 18:38) Hives procainamide Allergy (Verified 02/20/19 18:38) Hives rosuvastatin Allergy (Verified 02/20/19 18:38) Hives simvastatin Allergy (Verified 02/20/19 18:38) Hives isosorbide Adverse Reaction (Severe, Verified 02/20/19 18:38) Unknown Home Medications: Ambulatory Orders Medication Instructions Recorded Amantadine [Symmetrel] 100 mg PO DAILY 04/17/18 Budesonide [Pulmicort] 0.5 mg IH BID 04/17/18 Fluticasone 0.05% [Flonase Nasal 2 spray NASAL DAILY 04/17/18 [place]] Insulin Lispro [Humalog] 12 unit SUBCUT TIDCM 04/17/18 Metoprolol Tartrate [Lopressor 100 mg PO TID 04/17/18 (beta stepan)] Pantoprazole Sodium [Protonix] 40 mg PO DAILY 04/17/18 Polyethylene Glycol 3350 [Miralax] 17 gm PO DAILY 04/17/18 Pramipexole Di-HCl [Mirapex] 0.25 mg PO QHS 04/17/18 Pravastatin Sodium 80 mg PO QHS 04/17/18 Senna/Docusate Sodium [Senokot-S] 2 tab PO BID 04/17/18 Tamsulosin HCl [Flomax] 0.4 mg PO DAILY 04/17/18 Insulin Lispro [Humalog KwikPen] See Protocol SUBCUT ACHS 04/20/18 insuln.pen furosemide 40 mg tablet 40 mg PO BID tab 06/17/18 potassium chloride ER 20 mEq 20 meq PO DAILY 90 Days #90 tab 06/17/18 tablet,extended release(part/cryst) Fluoxetine [Prozac] 20 mg PO DAILY 02/20/19 Hydroxyzine HCl 25 mg PO Q6H PRN 02/20/19 Insulin Glargine,Hum.rec.anlog 35 unit SUBCUT BID 02/20/19 [Lantus] Nitroglycerin 0.4 mg SL PRN PRN 02/20/19 - Social History SMOKING STATUS:: Former smoker Vital Signs Temp Pulse Resp BP Pulse Ox 96.7 F L 69 24 H 127/49 H 96 02/23/19 14:03 02/23/19 14:59 02/23/19 14:03 02/23/19 14:03 02/23/19 14:03 Oxygen Flow Rate (L/min) 1 Oxygen Delivery Method Room Air Weight: 143.3 kg Body Mass Index (BMI) 36.1 Finger Stick Blood Glucose 250 Microbiology Past 72 Hours 02/20/19 18:40 Blood Culture - Preliminary Blood Culture (Wb) - Venous No growth in 48 hours. 02/20/19 18:50 Blood Culture - Final Blood Culture (Wb) - Venous Escherichia coli 02/20/19 23:20 Urine Culture - Final Urine Catheter - Catheter Meth. resistant Staph. aureus Pseudomonas aeroginosa 02/20/19 23:45 Respiratory Panel (PCR) - Final Mucosa - Nasopharyngeal 02/20/19 23:20 Legionella Antigen - Final Urine Catheter - Catheter 02/20/19 23:20 Streptococcus pneumoniae Antigen (M - Final Urine Catheter - Catheter Laboratory Tests Past 24 Hrs 02/23/19 02/23/19 05:10 05:10 WBC 9.9 RBC 3.87 L Hgb 11.1 L Hct 36.0 L MCV 93.0 MCH 28.7 MCHC 30.8 L RDW Std Deviation 46.0 H RDW Coeff of Sherin 13.5 Plt Count 182 MPV 10.5 Immature Gran % (Auto) 0.600 Neut % (Auto) 71.7 H Lymph % (Auto) 20.2 [place] % (Auto) 6.9 Eos % (Auto) 0.4 Baso % (Auto) 0.2 Absolute Neuts (auto) 7.1 Absolute Lymphs (auto) 2.00 Nucleated RBC % 0 Sodium 142 Potassium 3.7 Chloride 103 Carbon Dioxide 33.0 H Anion Gap 6 BUN 30 H Creatinine 1.12 Estim Creat Clear Calc 73.39 Est GFR (MDRD) Af Amer 84 Est GFR (MDRD) Non-Af 69 BUN/Creatinine Ratio 26.8 H Glucose 156 H Calcium 8.8 - Other Studies Radiology: [] reviewed Other Studies: [] Route of nutrition/ use of supplements: [] Nutritional Intake: [] IV Site: [] Lane Catheter: [] - Physical Exam General: Alert, Cooperative, No apparent distress HEENT: Atraumatic, PERRLA, EOMI Neck: Supple, No Nodes Lungs: Clear to auscultation, Normal air movement Cardiovascular: Regular rate, Regular Rhythm Abdomen: Soft, Non Tender, Non-Distended, - - ostomy in place. Suprapubic, no redness Extremities: Edema Skin: No rashes IV Site: Peripheral, without redness Musculoskeletal: No Tenderness to Palpation of Joints or Extremities Neurological: Cranial nerves II-XII grossly intact - Assessment/Plan Antibiotics: [] Assessment/Plan: [] Active and Suspected Problems (Last Reviewed 06/18/18 @ 10:28 by Prashanth Peña MD) Severe sepsis (Acute) COPD exacerbation (Acute) Pneumonia (Acute) Acute respiratory failure with hypoxia and hypercapnia (Acute) Recurrent UTI (urinary tract infection) (Acute) Abnormal cardiac enzyme level (Acute) sepsis due to ecoli bacteremia from suspected urinary source with suprapubic catheter in place - feeling better, fever and wbc improved. Bcx with ecoli. Ucx also with MRSA and small amount of PsA. Doubt the PsA is true pathogen, but will cover for MRSA with po doxy. Narrow zosyn to cefazolin to cover for the ecoli. Likely will be able to be discharged on po abx. Will follow, thank you.
--- NOTE | 2019-02-23 16:31 | CASEMGMT ---
SW spoke with patient and he confirmed that he and his feel he would be fine at home with home health. SW will check with patient's to confirm this plan. Nydia RAMOS
[2019-02-23] MEDS: Cefazolin 2 GM in 0.9% Normal Saline 100 ML IV (16:54)
[2019-02-23 17:35] LABS: Bedside Glucose 168 mg/dL (70-110)
[2019-02-23] MEDS: Doxycycline 100 MG CAPSULE PO (22:08)
[2019-02-23] MEDS: Pravastatin 80 MG Tablet PO (22:08)
[2019-02-23] MEDS: Pramipexole Di-HCl 0.25 MG Tablet PO (22:08)
[2019-02-23 22:30] LABS: Bedside Glucose 229 mg/dL (70-110)
--- NOTE | 2019-02-23 23:55 | CPS ---
pt keeps taking mask apart and taking off head gear, mask has been re-applied several times in past hour. lg face mask was replaced due to patient taking off mask, original mask was damage.
[2019-02-24] VITALS (9 sets, daily range): BP systolic 120–151; BP diastolic 55–70; PULSE 57–70; RESP 18–19; TEMP 36.3–36.9; O2SAT 95–97
[2019-02-24] MEDS: Cefazolin 2 GM in 0.9% Normal Saline 100 ML IV ×2 (06:02→13:16)
[2019-02-24] MEDS: HYDROcodone Bitartrate/Apap 5/325 Tablet PO (06:02)
[2019-02-24] MEDS: Metoprolol Tartrate 100 MG Tablet PO ×2 (06:02→13:16)
[2019-02-24] MEDS: 0.9% NaCl Peripheral Flush Adult/Peds IV ×2 (06:03→13:16)
[2019-02-24] MEDS: Nystatin Powder 15gm Bottle 1 APPLIC TOPICAL ×2 (06:04→13:17)
[2019-02-24] MEDS: Ipratropium/Albuterol Sulfate 3 ML AMPUL.NEB INHALATION (07:09)
--- NOTE | 2019-02-24 07:39 | CPS ---
patient will not wear bipap
[2019-02-24] MEDS: Insulin Lispro 100 UNIT/ML INSULN.PEN 12 UNIT SC ×2 (08:31→10:59)
[2019-02-24 08:40] LABS: Bedside Glucose 141 mg/dL (70-110)
[2019-02-24] MEDS: Polyethylene Glycol 3350 17 GM PACKET PO (09:49)
[2019-02-24] MEDS: Furosemide 40 MG/4 ML Vial IV (09:50)
[2019-02-24] MEDS: Enoxaparin 40 MG/0.4 ML Syringe SC (09:52)
[2019-02-24] MEDS: Amantadine 100 MG Capsule PO (09:57)
[2019-02-24] MEDS: Doxycycline 100 MG CAPSULE PO (09:57)
[2019-02-24] MEDS: FLUoxetine 20 MG Capsule PO (09:57)
[2019-02-24] MEDS: Aspirin 81 MG TAB.CHEW PO (09:57)
[2019-02-24] MEDS: Senna/Docusate Sodium 1 Tablet PO (09:57)
[2019-02-24] MEDS: Pantoprazole Sodium 40 MG Tablet PO (09:57)
[2019-02-24] MEDS: Tamsulosin HCl 0.4 MG Capsule PO (09:58)
--- NOTE | 2019-02-24 10:29 | NURSING ---
In to assess colostomy appliance. there appears to be a small amount of leakage noted to the inferior portion of the flange. removed ostomy appliance. there was a moderate amount of unformed, soft brown stool in the appliance. peristomal skin is intact. stoma is is pink and moist. peristomal skin cleansed with warm water. pat dry. applied new 2 piece flay Dianne appliance with a small amount of stoma paste. pt tolerated well. present at bedside. deny further needs at this time.
[2019-02-24] MEDS: Insulin Lispro 100 UNIT/ML INSULN.PEN SC (10:58)
--- NOTE | 2019-02-24 10:59 | PCM.PN.ID ---
Patient Problems: Active and Suspected Problems (Last Reviewed 06/18/18 @ 10:28 by Prashanth Peña MD) Severe sepsis (Acute) COPD exacerbation (Acute) Pneumonia (Acute) Acute respiratory failure with hypoxia and hypercapnia (Acute) Recurrent UTI (urinary tract infection) (Acute) Abnormal cardiac enzyme level (Acute) Bacteremia due to Escherichia coli (Acute) Subjective: Feeling better, no fever, no abd pain. - Physical Exam General: Alert, Cooperative, No apparent distress Lungs: Clear to auscultation, Normal air movement Cardiovascular: Regular rate, Regular Rhythm Abdomen: Soft, Non Tender, Non-Distended Skin: No rashes Vital Signs Temp Pulse Resp BP Pulse Ox 97.4 F L 63 18 124/56 H 96 02/24/19 09:43 02/24/19 09:43 02/24/19 09:43 02/24/19 09:43 02/24/19 09:43 Oxygen Flow Rate (L/min) 1 Oxygen Delivery Method Room Air Weight: 119.947 kg Body Mass Index (BMI) 36.1 Finger Stick Blood Glucose 250 Intake and Output for Last 24 Hours 02/22/19 02/23/19 02/24/19 23:59 23:59 23:59 Intake Total 1970 / 1970 1290 / 1290 470 / 470 Output Total 3200 / 3200 4450 / 4450 2550 / 2550 Balance -1230 / -1230 -3160 / -3160 -2080 / -2080 Microbiology Past 72 Hours 02/20/19 18:40 Blood Culture - Preliminary Blood Culture (Wb) - Venous No growth in 48 hours. 02/20/19 18:50 Blood Culture - Final Blood Culture (Wb) - Venous Escherichia coli 02/20/19 23:20 Urine Culture - Final Urine Catheter - Catheter Meth. resistant Staph. aureus Pseudomonas aeroginosa 02/20/19 23:45 Respiratory Panel (PCR) - Final Mucosa - Nasopharyngeal POC Glucose 02/24/19 02/23/19 02/23/19 08:29 22:01 16:53 POC Glucose 141 H 229 H 168 H 02/23/19 11:45 POC Glucose 221 H Medical Necessity - Tobacco Use Smoking Status: Former smoker Tobacco Use: Non-smoker Route of nutrition/ use of supplements: [] Nutritional Intake: [] IV Site: [] Lane Catheter: [] - Assessment/Plan Antibiotics: [] Assessment/Plan: [] Active and Suspected Problems (Last Reviewed 06/18/18 @ 10:28 by Prashanth Peña MD) Severe sepsis (Acute) COPD exacerbation (Acute) Pneumonia (Acute) Acute respiratory failure with hypoxia and hypercapnia (Acute) Recurrent UTI (urinary tract infection) (Acute) Abnormal cardiac enzyme level (Acute) sepsis due to ecoli bacteremia from suspected urinary source with suprapubic catheter in place - feeling better, fever and wbc improved. Bcx with ecoli. Ucx also with MRSA and small amount of PsA. Doubt the PsA is true pathogen, but will cover for MRSA with po doxy. 02/23 narrowed zosyn to cefazolin to cover for the ecoli. Plan will be for doxy 100mg bid and duricef 1gm bid for 7 more days after discharge. Will follow
--- NOTE | 2019-02-24 11:18 | CASEMGMT ---
SW spoke with patient's and she confirmed they would like patient to go to TCU for a little bit. [facility] spoke with [facility] and confirmed they still have a bed for patient. Plan: [facility] TCU. Nydia RAMOS
[2019-02-24 11:20] LABS: Bedside Glucose 243 mg/dL (70-110)
--- NOTE | 2019-02-24 12:34 | PCM.TXEXTCAR ---
- Diet 02/20/19 21:57 Diet: Calorie Controlled Is pt able to select menu?: Yes How many daily calories?: 1800 calorie - Routine Orders/Code Status Code Status: Full Code - Therapies Weight Bearing: Full weight bearing Physical Therapy: Eval and Treat Occupational Therapy: Eval and Treat - Allergies/Procedures Done in Hospital Allergies/Adverse Reactions: Allergies cilostazol Allergy (Verified 02/20/19 18:38) Hives colestipol Allergy (Verified 02/20/19 18:38) Hives diltiazem Allergy (Verified 02/20/19 18:38) Hives gemfibrozil Allergy (Verified 02/20/19 18:38) Hives naproxen [From Naprosyn] Allergy (Verified 02/20/19 18:38) Hives Nitrate Analogues Allergy (Verified 02/20/19 18:38) Hives Penicillins Allergy (Verified 02/20/19 18:38) Hives procainamide Allergy (Verified 02/20/19 18:38) Hives rosuvastatin Allergy (Verified 02/20/19 18:38) Hives simvastatin Allergy (Verified 02/20/19 18:38) Hives isosorbide Adverse Reaction (Severe, Verified 02/20/19 18:38) Unknown Procedures: None - Type of Care/Length of Stay Estimated LOS: Convalescent Care Less Than 30 days Type of Care Needed: Skilled Rehab Potential: Good Prognosis: Good - Additional Orders/Day of Discharge Day of Discharge: 02/24/19 - Dietary and Speech Recommendations Dietitian Recommendations/Changes: Recommend 1800 calorie controlled, cardiac diet. Will d/c ONS w/ meals. - Follow Up Care Primary Care Physician: Julissa Lamb MD [Primary Care Provider] - Within 2 Weeks Please Follow Up With: Deshawn Esteban MD - Urology When: 2-4 weeks Please Follow Up With: Prashanth Peña MD When: 07/12/2019
--- NOTE | 2019-02-24 12:38 | DS.PCM_ITS ---
Discharge Date and Diagnosis - Problem List Patient Problems: Active and Suspected Problems (Last Reviewed 06/18/18 @ 10:28 by Prashanth Peña MD) Severe sepsis (Acute) COPD exacerbation (Acute) Pneumonia (Acute) Acute respiratory failure with hypoxia and hypercapnia (Acute) Recurrent UTI (urinary tract infection) (Acute) Abnormal cardiac enzyme level (Acute) Bacteremia due to Escherichia coli (Acute) Date of Admission: 02/20/19 Date of Discharge: 02/24/19 - Primary Discharge Diagnosis Active and Suspected Problems (Last Reviewed 06/18/18 @ 10:28 by Prashanth Peña MD) Severe sepsis (Acute) COPD exacerbation (Acute) Pneumonia (Acute) Acute respiratory failure with hypoxia and hypercapnia (Acute) Recurrent UTI (urinary tract infection) (Acute) Abnormal cardiac enzyme level (Acute) Bacteremia due to Escherichia coli (Acute) - Secondary Discharge Diagnosis Chronic Problems (Last Reviewed 06/18/18 @ 10:28 by Prashanth Peña MD) COPD with acute exacerbation (Chronic) Chronic suprapubic catheter (Chronic) CAD in [place] artery (Chronic) Hyperlipidemia (Chronic) Ischemic cardiomyopathy (Chronic) Essential (primary) hypertension (Chronic) Atherosclerosis of coronary artery bypass graft without angina pectoris (Chronic) [facility] w/DNY-[id number]-Lfxt LAD w/ 3.0 x 9 mm Resolute Stent (grafts occluded x 3) 02/20/17 CVA (cerebral vascular accident) (Chronic) 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 Mild to moderate pulmonary edema. No sizable effusion. Electronically Signed: Kyaw Esparza MD ([place]) at 19:02 EDT , Service support , Chest X-Ray 09/16/19 05:55 IMPRESSION: The lungs are clear. Electronically Signed: Bakari Briggs, at 8:59 EDT , Service support , Consultations 02/20/19 21:56 Consult: Onc/Wound/lot attendant Routine Comment: Santy Wilkerson MD: ID Phillip Roche MD: cardiology Jabier Esteban MD: urology Operations: None, - - 01/22/18 - Excision sacral pressure sore, Stage IV, with partial ostectomy for osteomyelitis. 01/29/18 - Laparoscopic diverting end sigmoid colostomy. Procedures: None Summary of Care Provided: The patient is a 68 year old M presents with shortness of breath cough fatigue, malaise. 1. Severe sepsis * 2/2 bacteremia and UTI * improved 2. Bacteremia: * E. coli + in 1 of 2 bottles * 2/2 UTI * monitor * consult ID for input. 3. UTI, catheter-associated * UCx showed low cfu's of MRSA and PsA. Question if colonization * on pip/tazo * UCx still pending. * catheter changed by on 02/21 * DC with duricef and doxycycline * Pseudomonas not felt to be actual pathogen, per ID 4. Respiratory distress * resolved * may have compensating for metabolic acidosis 5. NSTEMI * suspect type 2/demand ischemia from severe sepsis and respiratory distress * supportive mgmt * on ASA 6. VTE prophylaxis: mod risk. LMWH 7. DM2: * uncontrolled * exacerbated by sepsis and steroids * resume basal at 35 units BID (from 25 currently on) 8. Suprapubic catheter malfunction * was leaking around catheter and patient had to force urine out * changed from 16f to 18f catheter on the * follow up w as outpt. May need upsized to 20f then.[] Patient Problems: Active and Suspected Problems (Last Reviewed 06/18/18 @ 10:28 by Prashanth Peña MD) Severe sepsis (Acute) COPD exacerbation (Acute) Pneumonia (Acute) Acute respiratory failure with hypoxia and hypercapnia (Acute) Recurrent UTI (urinary tract infection) (Acute) Abnormal cardiac enzyme level (Acute) Bacteremia due to Escherichia coli (Acute) - Physical Exam General: Alert, Cooperative HEENT: Atraumatic, Normocephalic Oral: Moist Mucosa Psych/Mental Status: Appropriate, Flat Affect Vital Signs Temp Pulse Resp BP Pulse Ox 36.3 C L 63 18 124/56 H 96 02/24/19 09:43 02/24/19 09:43 02/24/19 09:43 02/24/19 09:43 02/24/19 09:43 Oxygen Flow Rate (L/min) 1 Oxygen Delivery Method Room Air Weight: 119.947 kg Body Mass Index (BMI) 36.1 Finger Stick Blood Glucose 250 Intake and Output for Last 24 Hours 02/22/19 02/23/19 02/24/19 23:59 23:59 23:59 Intake Total 1969 / 1970 1290 / 1290 470 / 470 Output Total 3200 / 3200 4450 / 4450 2550 / 2550 Balance -1230 / -1230 -3160 / -3160 -2080 / -2080 Microbiology Past 72 Hours 02/20/19 18:40 Blood Culture - Preliminary Blood Culture (Wb) - Venous No growth in 48 hours. 02/20/19 18:50 Blood Culture - Final Blood Culture (Wb) - Venous Escherichia coli 02/20/19 23:20 Urine Culture - Final Urine Catheter - Catheter Meth. resistant Staph. aureus Pseudomonas aeroginosa 02/20/19 23:45 Respiratory Panel (PCR) - Final Mucosa - Nasopharyngeal POC Glucose 02/24/19 02/24/19 02/23/19 10:57 08:29 22:01 POC Glucose 243 H 141 H 229 H 02/23/19 16:53 POC Glucose 168 H Discharge Diet: 1800 Calorie Control Diet Discharge Activity: Return to Normal Activity Call your doctor if you observe: Fever of 101 or Higher Home Medications: Medications to take at Discharge Amantadine [Symmetrel] 100 mg PO DAILY 04/17/18 Budesonide [Pulmicort] 0.5 mg IH BID 04/17/18 Fluticasone 0.05% [Flonase Nasal [place]] 2 spray NASAL DAILY 04/17/18 Insulin Lispro [Humalog] 12 unit SUBCUT TIDCM 04/17/18 Metoprolol Tartrate [Lopressor (beta stepan)] 100 mg PO TID 04/17/18 Pantoprazole Sodium [Protonix] 40 mg PO DAILY 11/10/18 Polyethylene Glycol 3350 [Miralax] 17 gm PO DAILY 04/17/18 Pramipexole Di-HCl [Mirapex] 0.25 mg PO QHS 04/17/18 Pravastatin Sodium 80 mg PO QHS 04/17/18 Senna/Docusate Sodium [Senokot-S] 2 tab PO BID 04/17/18 Tamsulosin HCl [Flomax] 0.4 mg PO DAILY 04/17/18 Insulin Lispro [Humalog KwikPen] See Protocol SUBCUT ACHS insuln.pen 04/20/18 furosemide 40 mg tablet 40 mg PO BID tab 06/17/18 potassium chloride ER 20 mEq tablet,extended release(part/cryst) 20 meq PO DAILY 90 Days #90 tab 06/17/18 Fluoxetine [Prozac] 20 mg PO DAILY 02/20/19 Hydroxyzine HCl 25 mg PO Q6H PRN 02/20/19 Insulin Glargine,Hum.rec.anlog [Lantus] 35 unit SUBCUT BID 02/20/19 Nitroglycerin 0.4 mg SL PRN PRN 02/20/19 Acetaminophen [Tylenol Tablet] 650 mg PO Q6H PRN PRN tablet 02/24/19 Albuterol Aerosols [Ventolin Aerosols] 2.5 mg INHALATION Q2H PRN PRN vial.neb. 02/24/19 Aspirin [Aspirin, Baby] 81 mg PO DAILY@0800 tab.chew 02/24/19 Cefadroxil Hydrate [Duricef] 1,000 mg PO BID #1 capsule 02/24/19 Doxycycline 100 mg PO BID capsule 02/24/19 Hydrocodone Bitart/Apap 5-325 [[place] 5/325] 1 tab PO Q6H PRN 3 Days #12 tab 02/24/19 Metformin HCl 500 mg PO DAILY #1 solution 02/24/19 Following Prescrptions Were Given to Patient: Cefadroxil Hydrate [Duricef] 1,000 mg PO BID #1 capsule Metformin HCl 500 mg PO DAILY #1 solution Hydrocodone Bitart/Apap 5-325 [[place] 5/325] 1 tab PO Q6H PRN 3 Days #12 tab PRN Reason: Mod-Severe Pain (-03/17) Prescription Printed Primary Care Physician: Julissa Lamb MD [Primary Care Provider] - Within 2 Weeks Please Follow Up With: Carlito,Jaspal, MD - Urology When: 2-4 weeks Please Follow Up With: Prashanth Peña MD When: 07/12/2019 Disposition: Longterm facility Minutes spent on discharge:: 35 Patient Condition:: Good Medical Necessity - Tobacco Use Smoking Status: Former smoker Tobacco Use: Non-smoker Meaningful Use Info Meaningful Use Diagnoses (Choose all that apply): None applicable Code Visit Inpatient E&M: 76036 Disch Hosp
--- NOTE | 2019-02-24 13:30 | CASEMGMT ---
Stephanie, TCU social media intern, notified that pt current with JUSTIN Simon and JUSTIN Simon aware that pt discharged to TCU today, voice understanding. Daryl JENSEN CM
--- NOTE | 2019-02-24 13:48 | NURSING ---
This RN called report to CARLITOS Parisi RN.
== END 2019-02-24 14:27 | disposition skilled nursing facility (03) | DRG 698 ==
LOC: ED 18:48 → ICU 20:33 → PCU 02-22 15:53
PROVIDERS: Admitting Provider Family Medicine; Emergency Provider Emergency Medicine; Family Provider Family Medicine; PCP Family Medicine
DX: T83.510A Infection and inflammatory reaction due to cystostomy catheter, initial encounter (principal); A41.51 Sepsis due to Escherichia coli [E. coli]; R65.20 Severe sepsis without septic shock; J96.01 Acute respiratory failure with hypoxia; J96.02 Acute respiratory failure with hypercapnia; I21.A1 Myocardial infarction type 2; I50.43 Acute on chronic combined systolic (congestive) and diastolic (congestive) heart failure; I69.351 Hemiplegia and hemiparesis following cerebral infarction affecting right dominant side; J44.1 Chronic obstructive pulmonary disease with (acute) exacerbation; T83.030A Leakage of cystostomy catheter, initial encounter; N30.90 Cystitis, unspecified without hematuria; I25.10 Atherosclerotic heart disease of native coronary artery without angina pectoris; Z66 Do not resuscitate; G25.81 Restless legs syndrome; K21.9 Gastro-esophageal reflux disease without esophagitis; G47.33 Obstructive sleep apnea (adult) (pediatric); E66.01 Morbid (severe) obesity due to excess calories; E78.5 Hyperlipidemia, unspecified; N35.919 Unspecified urethral stricture, male, unspecified site; E11.65 Type 2 diabetes mellitus with hyperglycemia; Y84.6 Urinary catheterization as the cause of abnormal reaction of the patient, or of later complication, without mention of misadventure at the time of the procedure; I25.5 Ischemic cardiomyopathy; I11.0 Hypertensive heart disease with heart failure; B95.62 Methicillin resistant Staphylococcus aureus infection as the cause of diseases classified elsewhere; Z68.36 Body mass index [BMI] 36.0-36.9, adult; Z95.5 Presence of coronary angioplasty implant and graft; Z79.4 Long term (current) use of insulin; Z93.3 Colostomy status; Z95.1 Presence of aortocoronary bypass graft; Z93.59 Other cystostomy status; Z87.891 Personal history of nicotine dependence
CPT/HCPCS: 36415; 36600; 71045; 80048; 81001; 82803; 82962; 83605; 83735; 83880; 84484; 85025; 85610; 87040; 87077; 87086; 87088; 87186; 87449; 87633; 92526; 92610; 93005; 94002; 94003; 94640; 94667; 94668; 97116; 97162; 97166; 97530; 97802; 99285; J7040; J7050; A4216; J1940

== ENCOUNTER 2019-02-24 14:44 | Inpatient (IN) | payer MEDICARE, MEDICAID, SELFPAY ==
[2017-02-20 12:18] VITALS: BMI 46.4
[2019-02-20 22:51] VITALS: BMI 36.1
[2019-02-24 14:49] VITALS: BP 139/89; PULSE 63; RESP 18; TEMP 36.5; O2SAT 94
[2019-02-24 15:17] VITALS: BMI 40.3
[2019-02-24 15:19] VITALS: BMI 40.3
[2019-02-24] MEDS: Senna/Docusate Sodium 1 Tablet PO (17:58)
[2019-02-24] MEDS: Furosemide 40 MG Tablet PO (17:58)
[2019-02-24] MEDS: Cefadroxil 500 MG CAPSULE 1000 MG PO (17:58)
[2019-02-24] MEDS: Doxycycline 100 MG CAPSULE PO (17:58)
[2019-02-24] MEDS: Insulin Lispro 100 UNIT/ML INSULN.PEN 12 UNIT SC (18:02)
[2019-02-24] MEDS: Insulin Lispro 100 UNIT/ML INSULN.PEN SC (18:03)
[2019-02-24 18:21] LABS: Bedside Glucose 198 mg/dL (70-110)
[2019-02-24 18:45] VITALS: PULSE 97; RESP 18
[2019-02-24] MEDS: Budesonide Respules 0.5 MG/2 ML AMPUL.NEB. INHALATION (18:45)
--- NOTE | 2019-02-24 21:28 | HP.PCM_ITS ---
Problem List (1) Debility Status: Acute (2) Complicated UTI (urinary tract infection) Status: Acute (3) Acute respiratory failure Status: Acute (4) Coronary artery disease Status: Chronic (5) Diabetes mellitus Status: Chronic (6) Anemia Status: Chronic (7) Acute on chronic systolic heart failure Status: Chronic (8) Restless leg syndrome Status: Chronic (9) Severe sepsis Status: Acute (10) Bacteremia due to Escherichia coli Status: Acute (11) CVA (cerebral vascular accident) Status: Chronic Qualifiers: Comment: Residual right-sided hemiplegia (12) Traumatic brain injury Status: Chronic (13) Tobacco abuse Status: Chronic (14) Alcohol abuse Status: Chronic (15) COPD (chronic obstructive pulmonary disease) Status: Chronic Qualifiers: History of Present Illness Date of Admission: 02/24/19 Chief Complaint: Here for rehabilitation, strengthening, prior to discharge home with spouse. The patient is a 68 year old Male with below past medical history presented to [facility] Emergency Department 02/20/2019 with shortness of breath. Acute shortness of breath x 1 day, declined intubation. Chest X-ray showed bilateral interstitial pneumonia versus bilateral pulmonary edema. Fever, thought from pneumonia. BNP 216, Troponin normal, WBC 9, Hemoglobin 13, Hematocrit 43. Cr 1.3, Glucose 294, Lactic Acid 3.8. EKG sinus tachycardia, rate 127, PVC, ST depression V3-V6. UA pending. Improved with aerosols, Solu-Medrol. Zosyn, Vancomycin, IV fluids for severe sepsis. 02/20/2019 Admit to ICU. BiPAP for acute respiratory failure. Lasix IV for systolic congestive heart failure. Vancomycin, Zosyn, IV fluids for sepsis, community acquired pneumonia. 02/23/2019 Dr. Wilkerson consulted, sepsis secondary to E. Coli bacteremia from urinary source with suprapubic catheter. Blood culture grew E. Coli. Urine culture grew MRSA, small amount of Pseudomonas Aeruginosa, Pseudomonas doubt pathogen. Zosyn narrowed to Cefazolin for E. Coli. Cover MRSA with oral Doxycycline. Severe sepsis secondary to urinary tract infection improved. Discharge on Duricef, Doxycycline. NSTEMI from demand ischemia. Suprapubic catheter changed due to leaking. 02/24/2019 Admit to TCU with debility, here for rehabilitation, strengthening, prior to discharge home with spouse. Past Medical History Past Medical History (Chronic Problems): Chronic Problems (Last Reviewed 06/18/18 @ 10:28 by Prashanth Peña MD) COPD with acute exacerbation (Chronic) Chronic suprapubic catheter (Chronic) CAD in [place] artery (Chronic) Coronary artery disease (Chronic) Diabetes mellitus (Chronic) Anemia (Chronic) Acute on chronic systolic heart failure (Chronic) Restless leg syndrome (Chronic) Hyperlipidemia (Chronic) Ischemic cardiomyopathy (Chronic) Essential (primary) hypertension (Chronic) Atherosclerosis of coronary artery bypass graft without angina pectoris (Chronic) [facility] w/OBL-CXF-Vbir LAD w/ 3.0 x 9 mm Resolute Stent (grafts occluded x 3) 02/20/17 CVA (cerebral vascular accident) (Chronic) Residual right-sided hemiplegia Osteomyelitis of sacrum (Chronic) Traumatic brain injury (Chronic) Intraparenchymal hemorrhage of brain (Chronic) Subarachnoid hemorrhage (Chronic) Subdural hematoma (Chronic) Intraventricular hemorrhage (Chronic) Tobacco abuse (Chronic) Alcohol abuse (Chronic) Non-ST elevation myocardial infarction (NSTEMI), initial care episode (Chronic) 02/16/17 COPD (chronic obstructive pulmonary disease) (Chronic) Medical History: Medical History (Last Reviewed 06/18/18 @ 10:28 by Prashanth Peña MD) Hyperlipidemia (Chronic) E78.5 Ischemic cardiomyopathy (Chronic) I25.5 Essential (primary) hypertension (Chronic) I10 Acute on chronic systolic (congestive) heart failure (Acute) I50.23 Atherosclerosis of coronary artery bypass graft without angina pectoris (Chronic) I25.810 [facility] w/[id number]-Ivfx LAD w/ 3.0 x 9 mm Resolute Stent (grafts occluded x 3) 02/20/17 CVA (cerebral vascular accident) (Chronic) I63.9 Residual right-sided hemiplegia Osteomyelitis of sacrum (Chronic) M46.28 Traumatic brain injury (Chronic) S06.9X9A Intraparenchymal hemorrhage of brain (Chronic) I61.9 Subarachnoid hemorrhage (Chronic) I60.9 Subdural hematoma (Chronic) S06.5X9A Intraventricular hemorrhage (Chronic) I61.5 Tobacco abuse (Chronic) Z72.0 Alcohol abuse (Chronic) F10.10 Non-ST elevation myocardial infarction (NSTEMI), initial care episode (Chronic) I21.4 02/16/17 COPD (chronic obstructive pulmonary disease) (Chronic) J44.9 Dysphagia R13.10 GERD (gastroesophageal reflux disease) K21.9 Morbid obesity E66.01 Nicotine dependence F17.200 RLS (restless legs syndrome) G25.81 Right hemiplegia G81.91 Type 2 diabetes mellitus E11.9 Demand ischemia (Inactive) I24.8 Diabetes mellitus type 2 in obese (Inactive) E11.69, E66.9 Encounter for long-term current use of high risk medication (Inactive) Z79.899 FUO (fever of unknown origin) (Inactive) Former smoker (Inactive) Z87.891 quit February 2017 Hypertensive emergency (Inactive) I16.1 Allergies cilostazol Allergy (Verified 02/20/19 18:38) Hives colestipol Allergy (Verified 02/20/19 18:38) Hives diltiazem Allergy (Verified 02/20/19 18:38) Hives gemfibrozil Allergy (Verified 02/20/19 18:38) Hives naproxen [From Naprosyn] Allergy (Verified 02/20/19 18:38) Hives Nitrate Analogues Allergy (Verified 02/20/19 18:38) Hives Penicillins Allergy (Verified 02/20/19 18:38) Hives procainamide Allergy (Verified 02/20/19 18:38) Hives rosuvastatin Allergy (Verified 02/20/19 18:38) Hives simvastatin Allergy (Verified 02/20/19 18:38) Hives isosorbide Adverse Reaction (Severe, Verified 02/20/19 18:38) Unknown Home Medications: Ambulatory Orders Medication Instructions Recorded Amantadine [Symmetrel] 100 mg PO DAILY 04/17/18 Budesonide [Pulmicort] 0.5 mg IH BID 04/17/18 Fluticasone 0.05% [Flonase Nasal 2 spray NASAL DAILY 04/17/18 [place]] Insulin Lispro [Humalog] 12 unit SUBCUT TIDCM 04/17/18 Metoprolol Tartrate [Lopressor 100 mg PO TID 04/17/18 (beta stepan)] Pantoprazole Sodium [Protonix] 40 mg PO DAILY 04/17/18 Polyethylene Glycol 3350 [Miralax] 17 gm PO DAILY 04/17/18 Pramipexole Di-HCl [Mirapex] 0.25 mg PO QHS 04/17/18 Pravastatin Sodium 80 mg PO QHS 04/17/18 Senna/Docusate Sodium [Senokot-S] 2 tab PO BID 04/17/18 Tamsulosin HCl [Flomax] 0.4 mg PO DAILY 04/17/18 furosemide 40 mg tablet 40 mg PO BID tab 06/17/18 potassium chloride ER 20 mEq 20 meq PO DAILY 90 Days #90 tab 06/17/18 tablet,extended release(part/cryst) Fluoxetine [Prozac] 20 mg PO DAILY 02/20/19 Hydroxyzine HCl 25 mg PO Q6H PRN 02/20/19 Insulin Glargine,Hum.rec.anlog 35 unit SUBCUT BID 02/20/19 [Lantus] Nitroglycerin 0.4 mg SL PRN PRN 02/20/19 Acetaminophen [Tylenol Tablet] 650 mg PO Q6H PRN PRN tab 02/24/19 Albuterol Aerosols [Ventolin 2.5 mg INHALATION Q2H PRN PRN 02/24/19 Aerosols] vial.neb. Aspirin [Aspirin, Baby] 81 mg PO DAILY@0800 02/24/19 Cefadroxil Hydrate [Duricef] 1,000 mg PO BID 02/24/19 Doxycycline 100 mg PO BID 02/24/19 Hydrocodone Bitart/Apap 5-325 1 tab PO Q6H PRN 3 Days #12 tab 02/24/19 [[place] 5/325] Insulin Lispro [Humalog KwikPen] See Protocol SUBCUT ACHS 02/24/19 Surgical History: Surgical History (Last Reviewed 02/21/19 @ 07:33 by Miriam Castro) H/O coronary artery bypass surgery (Resolved) Onset Date: ~2001 Z95.1 CABG x 3 Radial Artery-LAD, SVG-RCA, SVG-OM2 History of coronary artery stent placement (Resolved) Onset Date: 02/20/17 Z95.5 [facility] w/CUZ-WHK-Vyeo LAD w/ 3.0 x 9 mm Resolute Stent (grafts occluded x 3) 02/20/17 PEG (percutaneous endoscopic gastrostomy) adjustment/replacement/removal Z43.1 Status post osteotomy Onset Date: 01/2018 Z98.890 Surgical History: angioplasty, coronary bypass surgery - x 3., - - PEG tube with eventual removal, Diverting colostomy, suprapubic catheter. Psychiatric History: Anxiety, Depression Lives: Spouse/ Significant Other Smoking Status: Former smoker Tobacco Use: Non-smoker Alcohol: None Drugs: None - *Family History Maternal Family History: Family History (Last Reviewed 06/18/18 @ 10:28 by Prashanth Peña MD) Brother Heart disease Father Heart disease History Items: - - Alzheimer's dementia. Paternal Family History: Family History (Last Reviewed 06/18/18 @ 10:28 by Prashanth Peña MD) Brother Heart disease Father Heart disease History Items: Heart Disease Review of Systems Constitutional: Denies: Chills, Fever, Weight Change HEENT: Denies: Head Aches, Sinus Congestion, Sinus Drainage Cardiovascular: Denies: Chest Pain, Palpitations Respiratory: Denies: Cough, Shortness of breath at rest, Sputum production Gastrointestinal: Denies: Abdominal Pain, Nausea, Vomiting Genitourinary: Denies: Dysuria Musculoskeletal: Denies: Joint Pain, Joint Tenderness Skin: Denies: Rash, Wounds Neurological: Denies: Numbness, Tingling, Focal weakness Psychiatric: Denies: Anxiety, Depression, Homicidal Ideations, Suicidal Ideations Hematologic/ Lymphatic: Denies: Easy Bruising, Easy Bleeding VTE Information - Inpt Only VTE Present on Admission: No VTE Mechan Device Prophylaxis: Knee High OTILIA Hose VTE Pharm Prophylaxis ordered?: Yes Patient Problems: Active and Suspected Problems (Last Reviewed 06/18/18 @ 10:28 by Prashanth Peña MD) Debility (Acute) Complicated UTI (urinary tract infection) (Acute) Acute respiratory failure (Acute) - Physical Exam General: Alert, Oriented x3, Cooperative HEENT: Atraumatic, PERRLA, EOMI, Normocephalic Neck: Supple, No JVD, Negative Carotid Bruits Lungs: Clear to auscultation, Normal air movement Cardiovascular: Regular rate, No murmurs Abdomen: Bowel Sounds Present, Soft, Non Tender, - - Midline lower abdomen co lostomy, Suprapubic catheter. Extremities: No edema, Capillary Refill Less than 3 Seconds Skin: No rashes, No breakdown Musculoskeletal: No Tenderness to Palpation of Joints or Extremities Neurological: Cranial nerves II-XII grossly intact Psych/Mental Status: Normal Affect, Appropriate Vital Signs Temp Pulse Resp BP Pulse Ox 97.7 F L 97 18 139/89 H 94 02/24/19 14:49 02/24/19 18:45 02/24/19 18:45 02/24/19 14:49 02/24/19 14:49 Oxygen Delivery Method Room Air Weight: 142.428 kg Body Mass Index (BMI) 40.3 Finger Stick Blood Glucose 250 Intake and Output for Last 24 Hours 02/22/19 02/23/19 02/24/19 23:59 23:59 23:59 Output Total 1650 / 1650 Balance -1650 / -1650 POC Glucose 02/24/19 18:02 POC Glucose 198 H Assessment/Plan All Active Problems (Last Reviewed 06/18/18 @ 10:28 by Prashanth Peña MD) Severe sepsis (Acute) COPD exacerbation (Acute) Pneumonia (Acute) Acute respiratory failure with hypoxia and hypercapnia (Acute) Recurrent UTI (urinary tract infection) (Acute) Abnormal cardiac enzyme level (Acute) Bacteremia due to Escherichia coli (Acute) Debility (Acute) Complicated UTI (urinary tract infection) (Acute) Acute respiratory failure (Acute) Acute on chronic systolic (congestive) heart failure (Acute) H/O coronary artery bypass surgery (Resolved ~2001) History of coronary artery stent placement (Resolved 02/20/17) Acute respiratory failure with hypoxia and hypercarbia (Resolved) Alcohol intoxication (Resolved) Complicated CAUTI (Resolved) Healthcare associated bacteremia due to Staphylococcus aureus (Resolved) Infected decubitus ulcer (Resolved) Infected decubitus ulcer (Resolved) Multifocal community-acquired pneumonia (Resolved) Right scapula fracture (Resolved) Sepsis (Resolved) Severe sepsis (Resolved) 68 year old male with below past medical history hospitalized for sepsis secondary to E. Coli UTI, complicated by acute respiratory failure, NSTEMI, admitted to TCU with debility, here for rehabilitation, strengthening, prior to discharge home with spouse. * Debility - PT/OT. * Pain - Tylenol 1000MG Q6H PRN mild pain, Oxycodone 5MG Q4H PRN moderate pain. * Bowel - Miralax 17GM daily, Senna/colace 1 tablet BID, Dulcolax 10MG daily PRN. * Pneumonia vaccination - Administer Prevnar 13 and/or Pneumovax 23 as necessary. * DVT prophylaxis - Lovenox 40MG SC daily. * COPD - Pulmicort 0.5MG nebulized BID, Albuterol 2.5MG nebulized Q2H PRN. * Parkinsonism - Amantadine 100MG daily. * Coronary Artery Disease - Metoprolol 100MG TID, Aspirin 81MG daily, NTG 0.4MG Q5M PRN. * E. Coli/MRSA UTI - Duricef 1000MG BID, Doxycycline 100MG BID thru 03/03/2019. * Depression - Fluoxetine 20MG daily. * Allergic Rhinitis - Flonase 2 spray nasal daily. * Chronic systolic heart failure - Metoprolol 100MG TID, Lasix 40MG BID. * Pruritus - Hydroxyzine 25MG Q6H PRN. * Diabetes Mellitus II - Lantus 35 units BID, Humalog 12 units TID. * Skin irritation - Calmoseptine BID. * Tinea Corporis - Nystatin powder BID. * GERD - Pantoprazole 40MG daily. * Hypokalemia - K-Dur 20MEQ daily. * Restless Leg Syndrome - Mirapex 0.25MG QHS. * Hyperlipidemia - Pravastatin 80MG QHS. * BPH - Tamsulosin 0.4MG daily, ?resident has suprapubic catheter.
[2019-02-24 21:51] LABS: Bedside Glucose 216 mg/dL (70-110)
[2019-02-24] MEDS: Nystatin Powder 15gm Bottle 1 APPLIC TOPICAL (21:57)
[2019-02-24 21:58] VITALS: BP 160/68; PULSE 70
[2019-02-24] MEDS: Metoprolol Tartrate 100 MG Tablet PO (21:58)
[2019-02-24] MEDS: Pramipexole Di-HCl 0.25 MG Tablet PO (21:58)
[2019-02-24] MEDS: Pravastatin 80 MG Tablet PO (21:58)
[2019-02-24] MEDS: Menthol/Lanolin/Calamine/Znox 113 GM Tube 1 APPLIC TOPICAL (22:06)
[2019-02-25] MEDS: Polyethylene Glycol 3350 17 GM PACKET PO (05:08)
[2019-02-25] MEDS: Furosemide 40 MG Tablet PO ×2 (05:09→18:01)
[2019-02-25] MEDS: Doxycycline 100 MG CAPSULE PO ×2 (05:09→18:02)
[2019-02-25] MEDS: Pantoprazole Sodium 40 MG Tablet PO (05:09)
[2019-02-25] MEDS: Amantadine 100 MG Capsule PO (05:09)
[2019-02-25] MEDS: Cefadroxil 500 MG CAPSULE 1000 MG PO ×2 (05:09→18:02)
[2019-02-25] MEDS: FLUoxetine 20 MG Capsule PO (05:09)
[2019-02-25 05:10] VITALS: BP 141/51; PULSE 68
[2019-02-25] MEDS: Tamsulosin HCl 0.4 MG Capsule PO (05:10)
[2019-02-25] MEDS: Metoprolol Tartrate 100 MG Tablet PO ×3 (05:10→21:08)
[2019-02-25] MEDS: Senna/Docusate Sodium 1 Tablet PO ×2 (05:10→18:01)
[2019-02-25] MEDS: Nystatin Powder 15gm Bottle 1 APPLIC TOPICAL ×2 (05:13→21:11)
[2019-02-25] MEDS: Menthol/Lanolin/Calamine/Znox 113 GM Tube 1 APPLIC TOPICAL ×2 (05:13→21:11)
[2019-02-25] MEDS: Acetaminophen 500 MG Tablet 1000 MG PO (05:17)
[2019-02-25] MEDS: Enoxaparin 40 MG/0.4 ML Syringe SC (05:17)
[2019-02-25 05:49] LABS: Absolute Lymphocyte Count 1.63 X10^3/uL (0.83-4.51); Absolute Neutrophil Count 5.2 X10^3/uL (2.0-7.7); Basophil# 0.03 X10^3/uL; Basophil% 0.4 % (0-1); Eosinophil# 0.26 X10^3/uL; Eosinophils% 3.4 % (0-5); Hematocrit 39.9 % (40-54); Hemoglobin 12.8 g/dL (13.0-16.5); Lymphocyte # 1.63 X10^3/ul (4.0); Lymphocyte % 21.1 % (19-41); Mean Corp Hgb Conc 32.1 g/dL (32-36); Mean Corpuscular Hgb 28.9 pg (27.0-32.0); Mean Corpuscular Volume 90.1 fL (80-94); Mean Platelet Vol. 11.3 fl (6.2-12.0); Monocyte# 0.54 X10^3/uL; NRBC Flagged by Analyzer 0 % (0-5); Neutrophil # 5.18 X10^3/uL (2.7-7.7); Neutrophil % 66.9 % (47-70); Platelet Count 217 K/mm3 (150-450); RBC Distribution Width CV 13.2 % (11.6-14.6); RBC Distribution Width SD 43.6 fl (35.1-43.9); Red Blood Count 4.43 M/mm3 (4.6-6.2); White Blood Count 7.7 K/mm3 (4.4-11.0)
[2019-02-25 06:36] LABS: Bedside Glucose 202 mg/dL (70-110)
[2019-02-25 07:46] LABS: Anion Gap 6 (5-15); BUN 16 mg/dL (7-18); BUN/Creat Ratio 21.9 RATIO (10-20); Chloride 105 mmol/L (98-107); Creatinine, Serum 0.73 mg/dL (0.70-1.30); EST Glomerular Filtration Rate 113 mL/min (>60); Est Glom Filt Rate - Afr Amer 137 mL/min (>60); Glucose 186 mg/dL (74-106); Potassium 3.7 mmol/L (3.5-5.1); Sodium Level 142 mmol/L (136-145)
[2019-02-25] MEDS: Insulin Lispro 100 UNIT/ML INSULN.PEN 12 UNIT SC ×3 (08:01→18:02)
[2019-02-25] MEDS: Aspirin 81 MG TAB.CHEW PO (08:01)
[2019-02-25 09:10] VITALS: PULSE 98; RESP 18
[2019-02-25] MEDS: Budesonide Respules 0.5 MG/2 ML AMPUL.NEB. INHALATION ×2 (09:10→19:23)
--- NOTE | 2019-02-25 10:34 | PHA.CONS_ITS ---
<Sid Amanda D - Last Filed: 02/25/19 10:34> Progress Note - Pharmacy Subjective: TCU Admission Objective: Allergies cilostazol Allergy (Verified 02/20/19 18:38) Hives colestipol Allergy (Verified 02/20/19 18:38) Hives diltiazem Allergy (Verified 02/20/19 18:38) Hives gemfibrozil Allergy (Verified 02/20/19 18:38) Hives naproxen [From Naprosyn] Allergy (Verified 02/20/19 18:38) Hives Nitrate Analogues Allergy (Verified 02/20/19 18:38) Hives Penicillins Allergy (Verified 02/20/19 18:38) Hives procainamide Allergy (Verified 02/20/19 18:38) Hives rosuvastatin Allergy (Verified 02/20/19 18:38) Hives simvastatin Allergy (Verified 02/20/19 18:38) Hives isosorbide Adverse Reaction (Severe, Verified 02/20/19 18:38) Unknown Current Medications Generic Name Dose Route Start Last Admin Trade Name Freq PRN Reason Stop Dose Admin Acetaminophen 1,000 mg 02/24/19 21:55 02/25/19 05:17 Tylenol PO 1,000 mg Q6H PRN PRN Administration MILD PAIN (1-3/10) Albuterol Sulfate 2.5 mg 02/24/19 15:00 Ventolin Aerosols INHALATION Q2H PRN PRN dyspnea, wheezing Amantadine HCl 100 mg 02/25/19 06:00 02/25/19 05:09 Symmetrel PO 100 mg DAILY BULL Administration Aspirin 81 mg 02/25/19 08:00 02/25/19 08:01 Aspirin, Baby PO 81 mg DAILY@0800 BULL Administration Bisacodyl 10 mg 02/24/19 21:54 Dulcolax PO DAILY PRN Constipation Budesonide 0.5 mg 02/24/19 18:00 02/25/19 09:10 Pulmicort Aerosol INHALATION 0.5 mg BID.RT BULL Administration Calamine/Phenol 1 applic 02/24/19 22:00 02/25/19 05:13 Calmoseptine Ointment TOPICAL 1 applicatio 0600,2200 BULL Administration Protocol Cefadroxil 1,000 mg 02/24/19 18:00 02/25/19 05:09 Duricef PO 03/03/19 18:00 1,000 mg BID BULL Administration Doxycycline Monohydrate 100 mg 02/24/19 18:00 02/25/19 05:09 Doxycycline PO 03/03/19 18:00 100 mg BID BULL Administration Enoxaparin Sodium 40 mg 02/25/19 06:00 02/25/19 05:17 Lovenox SC 40 mg DAILY@0600 BULL Administration Fluoxetine HCl 20 mg 02/25/19 06:00 02/25/19 05:09 Prozac PO 20 mg DAILY BULL Administration Fluticasone Propionate 2 spray 02/25/19 06:00 02/25/19 05:14 Flonase Nasal [place] NASAL Not Given DAILY [facility] Furosemide 40 mg 02/24/19 18:00 02/25/19 05:09 Lasix PO 40 mg BID BULL Administration Hydroxyzine Pamoate 25 mg 02/24/19 15:02 Vistaril Pamoate Capsule PO Q6H PRN PRN ITCHING Insulin Glargine 35 units 02/24/19 18:00 02/25/19 06:31 Lantus ([facility]) SC 35 units BID BULL Administration Insulin Human Lispro 12 unit 02/24/19 17:45 02/25/19 08:01 Humalog Kwikpen ([facility]) SC 12 units TIDCM [facility] Administration Metoprolol Tartrate 100 mg 02/24/19 22:00 02/25/19 05:10 Lopressor (Beta Devante) PO 100 mg TID [facility] Administration Nitroglycerin 0.4 mg 02/24/19 15:02 Nitrostat SUBLINGUAL Q5M PRN CHEST PAIN Nystatin 1 applic 02/24/19 22:00 02/25/19 05:13 Mycostatin Powder TOPICAL 1 applic 0600,2200 [facility] Administration Protocol Oxycodone HCl 5 mg 02/24/19 21:54 Oxyir PO Q4H PRN PRN MODERATE PAIN (4-5/10) Pantoprazole Sodium 40 mg 02/25/19 06:00 02/25/19 05:09 Protonix PO 40 mg DAILY BULL Administration Polyethylene Glycol 17 gm 02/25/19 06:00 02/25/19 05:08 Miralax PO 17 gm DAILY [facility] Administration Potassium Chloride 20 meq 02/25/19 07:45 02/25/19 08:01 K-Dur PO 20 meq DAILY@0745 BULL Administration Pramipexole Dihydrochloride 0.25 mg 02/24/19 22:00 02/24/19 21:58 Mirapex PO 0.25 mg QHS BULL Administration Pravastatin Sodium 80 mg 02/24/19 22:00 02/24/19 21:58 Pravachol PO 80 mg QHS BULL Administration Senna/Docusate Sodium 1 tablet 02/24/19 18:00 02/25/19 05:10 Senokot-S, Page-Colace PO 1 tablet BID BULL Administration Tamsulosin HCl 0.4 mg 02/25/19 06:00 02/25/19 05:10 Flomax PO 0.4 mg DAILY BULL Administration Tuberculin PPD 5 tu 03/04/19 10:00 Tubersol, Aplisol, Ppd ID 03/04/19 10:01 X1 ONE Problem List (Last Reviewed 06/18/18 @ 10:28 by Prashanth Peña MD) Debility (Acute) Complicated UTI (urinary tract infection) (Acute) Acute respiratory failure (Acute) Coronary artery disease (Chronic) Diabetes mellitus (Chronic) Anemia (Chronic) Acute on chronic systolic heart failure (Chronic) Restless leg syndrome (Chronic) Vital Signs Temp Pulse Resp BP Pulse Ox 97.7 F L 98 18 141/51 H 94 02/24/19 14:49 02/25/19 09:10 02/25/19 09:10 02/25/19 05:10 02/24/19 14:49 Oxygen Delivery Method Room Air Weight: 142.428 kg Body Mass Index (BMI) 40.3 Finger Stick Blood Glucose 250 Sodium 142 mmol/L (136-145) 02/25/19 05:20 Potassium 3.7 mmol/L (3.5-5.1) 02/25/19 05:20 Chloride 105 mmol/L (98-107) 02/25/19 05:20 Carbon Dioxide 31.0 mmol/L (21.0-32.0) 02/25/19 05:20 Anion Gap 6 (5-15) 02/25/19 05:20 BUN 16 mg/dL (7-18) 02/25/19 05:20 Creatinine 0.73 mg/dL (0.70-1.30) 09/20/19 05:20 Est GFR (MDRD) Af Amer 137 mL/min (>60) 02/25/19 05:20 Est GFR (MDRD) Non-Af 113 mL/min (>60) 02/25/19 05:20 BUN/Creatinine Ratio 21.9 RATIO (10-20) H 02/25/19 05:20 Glucose 186 mg/dL (74-106) H 02/25/19 05:20 Assessment/Plan: 1) Pain APAP for mild pain, oxycodone for moderate pain. Continue to monitor prn medication use, daily pain scores. 2) DM2 Insulin lispro, glargine. Continue to monitor BGT, s/s hyper/hypoglycemia. 3) Pulm Budesonide, albuterol prn. Continue to monitor prn medication use, for shortness of breath. 4) CAD/Heart Failure ASA, metoprolol, pravastatin, furosemide/KCL, prn ntg. Continue to monitor BP/HR renal function, electrolytes, prn medication use, for chest pain. 5) ID Doxycycline and cefadroxil thru 03/03. Continue to monitor s/s infection. 6) GI Pantoprazole. Continue to monitor for GI distress. 7) DVT PPx Enoxaparin. Continue to monitor for bleeding/clot. 8) Parkinsonism Amantadine. Continue to monitor clinically. 9) Tamsulosin. Continue to monitor for symptoms. 10) RLS Pramipexole at HS. Continue to monitor for restless legs. Psychotropic Medications: 11) Depression Fluoxetine. Continue to monitor s/s depression. Unnecessary Medications: None Bowel Regimen: 12) Senna/s, PEG, prn bisacodyl. Continue to monitor prn medication use, for constipation/diarrhea. Date of Note:: 02/25/19 - Provider Comments Provider responsibility: Provider responsible to enter orders to implement recommendations <Pierre Luis Chi - Last Filed: 02/25/19 13:35> Progress Note - Pharmacy Subjective: [] Objective: Allergies cilostazol Allergy (Verified 02/20/19 18:38) Hives colestipol Allergy (Verified 02/20/19 18:38) Hives diltiazem Allergy (Verified 02/20/19 18:38) Hives gemfibrozil Allergy (Verified 02/20/19 18:38) Hives naproxen [From Naprosyn] Allergy (Verified 02/20/19 18:38) Hives Nitrate Analogues Allergy (Verified 02/20/19 18:38) Hives Penicillins Allergy (Verified 02/20/19 18:38) Hives procainamide Allergy (Verified 02/20/19 18:38) Hives rosuvastatin Allergy (Verified 02/20/19 18:38) Hives simvastatin Allergy (Verified 02/20/19 18:38) Hives isosorbide Adverse Reaction (Severe, Verified 02/20/19 18:38) Unknown Current Medications Generic Name Dose Route Start Last Admin Trade Name Freq PRN Reason Stop Dose Admin Acetaminophen 1,000 mg 02/24/19 21:55 02/25/19 05:17 Tylenol PO 1,000 mg Q6H PRN PRN Administration MILD PAIN (1-3/10) Albuterol Sulfate 2.5 mg 02/24/19 15:00 Ventolin Aerosols INHALATION Q2H PRN PRN dyspnea, wheezing Amantadine HCl 100 mg 02/25/19 06:00 02/25/19 05:09 Symmetrel PO 100 mg DAILY BULL Administration Aspirin 81 mg 02/25/19 08:00 02/25/19 08:01 Aspirin, Baby PO 81 mg DAILY@0800 BULL Administration Bisacodyl 10 mg 02/24/19 21:54 Dulcolax PO DAILY PRN Constipation Budesonide 0.5 mg 02/24/19 18:00 02/25/19 09:10 Pulmicort Aerosol INHALATION 0.5 mg BID.RT BULL Administration Calamine/Phenol 1 applic 02/24/19 22:00 02/25/19 05:13 Calmoseptine Ointment TOPICAL 1 applicatio 0600,2200 BULL Administration Protocol Cefadroxil 1,000 mg 02/24/19 18:00 02/25/19 05:09 Duricef PO 03/03/19 18:00 1,000 mg BID BULL Administration Doxycycline Monohydrate 100 mg 02/24/19 18:00 02/25/19 05:09 Doxycycline PO 03/03/19 18:00 100 mg BID BULL Administration Enoxaparin Sodium 40 mg 02/25/19 06:00 02/25/19 05:17 Lovenox SC 40 mg DAILY@0600 BULL Administration Fluoxetine HCl 20 mg 02/25/19 06:00 02/25/19 05:09 Prozac PO 20 mg DAILY BULL Administration Fluticasone Propionate 2 spray 02/25/19 06:00 02/25/19 05:14 Flonase Nasal [place] NASAL Not Given DAILY [facility] Furosemide 40 mg 02/24/19 18:00 02/25/19 05:09 Lasix PO 40 mg BID BULL Administration Hydroxyzine Pamoate 25 mg 02/24/19 15:02 Vistaril Pamoate Capsule PO Q6H PRN PRN ITCHING Insulin Glargine 35 units 02/24/19 18:00 02/25/19 06:31 Lantus ([facility]) SC 35 units BID [facility] Administration Insulin Human Lispro 12 unit 02/24/19 17:45 02/25/19 11:58 Humalog Kwikpen ([facility]) SC 12 units TIDCM BULL Administration Metoprolol Tartrate 100 mg 02/24/19 22:00 02/25/19 05:10 Lopressor (Beta Devante) PO 100 mg TID [facility] Administration Nitroglycerin 0.4 mg 02/24/19 15:02 Nitrostat SUBLINGUAL Q5M PRN CHEST PAIN Nystatin 1 applic 02/24/19 22:00 02/25/19 05:13 Mycostatin Powder TOPICAL 1 applic 0600,2200 [facility] Administration Protocol Oxycodone HCl 5 mg 02/24/19 21:54 Oxyir PO Q4H PRN PRN MODERATE PAIN (4-5/10) Pantoprazole Sodium 40 mg 02/25/19 06:00 02/25/19 05:09 Protonix PO 40 mg DAILY BULL Administration Polyethylene Glycol 17 gm 02/25/19 06:00 02/25/19 05:08 Miralax PO 17 gm DAILY BULL Administration Potassium Chloride 20 meq 02/25/19 07:45 02/25/19 08:01 K-Dur PO 20 meq DAILY@0745 [facility] Administration Pramipexole Dihydrochloride 0.25 mg 02/24/19 22:00 02/24/19 21:58 Mirapex PO 0.25 mg QHS BULL Administration Pravastatin Sodium 80 mg 02/24/19 22:00 02/24/19 21:58 Pravachol PO 80 mg QHS [facility] Administration Senna/Docusate Sodium 1 tablet 02/24/19 18:00 02/25/19 05:10 Senokot-S, Page-Colace PO 1 tablet BID BULL Administration Tamsulosin HCl 0.4 mg 02/25/19 06:00 02/25/19 05:10 Flomax PO 0.4 mg DAILY BULL Administration Tuberculin PPD 5 tu 03/04/19 10:00 Tubersol, Aplisol, Ppd ID 03/04/19 10:01 X1 ONE Problem List (Last Reviewed 06/18/18 @ 10:28 by Prashanth Peña MD) Debility (Acute) Complicated UTI (urinary tract infection) (Acute) Acute respiratory failure (Acute) Coronary artery disease (Chronic) Diabetes mellitus (Chronic) Anemia (Chronic) Acute on chronic systolic heart failure (Chronic) Restless leg syndrome (Chronic) Vital Signs Temp Pulse Resp BP Pulse Ox 97.7 F L 98 18 141/51 H 94 02/24/19 14:49 02/25/19 09:10 02/25/19 09:10 02/25/19 05:10 02/24/19 14:49 Oxygen Delivery Method Room Air Weight: 142.428 kg Body Mass Index (BMI) 40.3 Finger Stick Blood Glucose 250 Sodium 142 mmol/L (136-145) 02/25/19 05:20 Potassium 3.7 mmol/L (3.5-5.1) 02/25/19 05:20 Chloride 105 mmol/L (98-107) 02/25/19 05:20 Carbon Dioxide 31.0 mmol/L (21.0-32.0) 02/25/19 05:20 Anion Gap 6 (5-15) 02/25/19 05:20 BUN 16 mg/dL (7-18) 02/25/19 05:20 Creatinine 0.73 mg/dL (0.70-1.30) 02/25/19 05:20 Est GFR (MDRD) Af Amer 137 mL/min (>60) 02/25/19 05:20 Est GFR (MDRD) Non-Af 113 mL/min (>60) 02/25/19 05:20 BUN/Creatinine Ratio 21.9 RATIO (10-20) H 02/25/19 05:20 Glucose 186 mg/dL (74-106) H 02/25/19 05:20 Assessment/Plan: Psychotropic Medications: Unnecessary Medications: Bowel Regimen: - Provider Comments Provider responsibility: Provider responsible to enter orders to implement recommendations Provider Comments to Recommendations by Pharmacy: Agree
[2019-02-25 11:21] LABS: Bedside Glucose 150 mg/dL (70-110)
--- NOTE | 2019-02-25 11:23 | PCM.PN.ID ---
Patient Problems: Active and Suspected Problems (Last Reviewed 06/18/18 @ 10:28 by Prashanth Peña MD) Debility (Acute) Complicated UTI (urinary tract infection) (Acute) Acute respiratory failure (Acute) Subjective: Feeling good, no fever, no n/v. - Physical Exam General: Alert, Cooperative, No apparent distress Lungs: Clear to auscultation, Normal air movement Cardiovascular: Regular rate, Regular Rhythm Abdomen: Soft, Non Tender, Non-Distended, - - ostomy and suprapubic in place Skin: No rashes Vital Signs Temp Pulse Resp BP Pulse Ox 97.7 F L 98 18 141/51 H 94 02/24/19 14:49 02/25/19 09:10 02/25/19 09:10 02/25/19 05:10 02/24/19 14:49 Oxygen Delivery Method Room Air Weight: 142.428 kg Body Mass Index (BMI) 40.3 Finger Stick Blood Glucose 250 Intake and Output for Last 24 Hours 02/23/19 02/24/19 02/25/19 23:59 23:59 23:59 Intake Total 360 / 360 920 / 920 Output Total 3050 / 3050 800 / 800 Balance -2690 / -2690 120 / 120 Laboratory Tests Past 24 Hrs 02/25/19 02/25/19 05:20 05:20 WBC 7.7 RBC 4.43 L Hgb 12.8 L Hct 39.9 L MCV 90.1 MCH 28.9 MCHC 32.1 RDW Std Deviation 43.6 RDW Coeff of Sherin 13.2 Plt Count 217 MPV 11.3 Immature Gran % (Auto) 1.200 H Neut % (Auto) 66.9 Lymph % (Auto) 21.1 Pierce % (Auto) 7.0 Eos % (Auto) 3.4 Baso % (Auto) 0.4 Absolute Neuts (auto) 5.2 Absolute Lymphs (auto) 1.63 Nucleated RBC % 0 Sodium 142 Potassium 3.7 Chloride 105 Carbon Dioxide 31.0 Anion Gap 6 BUN 16 Creatinine 0.73 Estim Creat Clear Calc 82.20 Est GFR (MDRD) Af Amer 137 Est GFR (MDRD) Non-Af 113 BUN/Creatinine Ratio 21.9 H Glucose 186 H Calcium 9.0 POC Glucose 02/25/19 02/25/19 02/24/19 11:16 06:25 21:46 POC Glucose 150 H 202 H 216 H 02/24/19 18:02 POC Glucose 198 H Medical Necessity - Tobacco Use Smoking Status: Former smoker Tobacco Use: Non-smoker Route of nutrition/ use of supplements: [] Nutritional Intake: [] IV Site: [] Lane Catheter: [] - Assessment/Plan Antibiotics: [] Assessment/Plan: [] Active and Suspected Problems (Last Reviewed 06/18/18 @ 10:28 by Prashanth Peña MD) Debility (Acute) Complicated UTI (urinary tract infection) (Acute) Acute respiratory failure (Acute) sepsis due to ecoli bacteremia from suspected urinary source with suprapubic catheter in place - feeling better, fever and wbc improved. Bcx with ecoli. Ucx also with MRSA and small amount of PsA. Doubt the PsA is true pathogen, but will cover for MRSA with po doxy. 02/23 narrowed zosyn to cefazolin to cover for the ecoli. Plan will be for doxy 100mg bid and duricef 1gm bid for 6 more days. Doing well in TCU. Will follow
[2019-02-25] MEDS: Tuberculin,Purif.prot.deriv. 50 TU/ML Vial 5 ML ID (11:58)
[2019-02-25 14:35] VITALS: BP 134/71; PULSE 65
[2019-02-25 15:24] VITALS: BP 123/60; PULSE 71; RESP 22; TEMP 36.2; O2SAT 94
[2019-02-25 16:56] LABS: Bedside Glucose 166 mg/dL (70-110)
[2019-02-25 19:23] VITALS: PULSE 64; RESP 18
[2019-02-25 21:08] VITALS: BP 165/70; PULSE 65
[2019-02-25] MEDS: Pramipexole Di-HCl 0.25 MG Tablet PO (21:08)
[2019-02-25] MEDS: Pravastatin 80 MG Tablet PO (21:08)
[2019-02-25 21:11] LABS: Bedside Glucose 230 mg/dL (70-110)
[2019-02-26 06:25] VITALS: BP 139/97; PULSE 66
[2019-02-26] MEDS: Amantadine 100 MG Capsule PO (06:25)
[2019-02-26] MEDS: Tamsulosin HCl 0.4 MG Capsule PO (06:25)
[2019-02-26] MEDS: Doxycycline 100 MG CAPSULE PO ×2 (06:25→18:09)
[2019-02-26] MEDS: Senna/Docusate Sodium 1 Tablet PO ×2 (06:25→18:08)
[2019-02-26] MEDS: Pantoprazole Sodium 40 MG Tablet PO (06:25)
[2019-02-26] MEDS: Furosemide 40 MG Tablet PO ×2 (06:25→18:09)
[2019-02-26] MEDS: Polyethylene Glycol 3350 17 GM PACKET PO (06:25)
[2019-02-26] MEDS: FLUoxetine 20 MG Capsule PO (06:25)
[2019-02-26] MEDS: Metoprolol Tartrate 100 MG Tablet PO ×3 (06:25→21:47)
[2019-02-26] MEDS: Cefadroxil 500 MG CAPSULE 1000 MG PO ×2 (06:25→18:09)
[2019-02-26] MEDS: Enoxaparin 40 MG/0.4 ML Syringe SC (06:25)
[2019-02-26 06:26] LABS: Bedside Glucose 161 mg/dL (70-110)
[2019-02-26] MEDS: Menthol/Lanolin/Calamine/Znox 113 GM Tube 1 APPLIC TOPICAL ×2 (06:26→21:46)
[2019-02-26] MEDS: Nystatin Powder 15gm Bottle 1 APPLIC TOPICAL ×2 (06:26→21:46)
[2019-02-26 07:21] VITALS: PULSE 61; RESP 20
[2019-02-26] MEDS: Budesonide Respules 0.5 MG/2 ML AMPUL.NEB. INHALATION ×2 (07:21→18:39)
[2019-02-26] MEDS: Aspirin 81 MG TAB.CHEW PO (08:30)
[2019-02-26] MEDS: Insulin Lispro 100 UNIT/ML INSULN.PEN 12 UNIT SC ×2 (08:31→12:20)
[2019-02-26 11:25] LABS: Bedside Glucose 131 mg/dL (70-110)
[2019-02-26 14:02] VITALS: BP 115/60; PULSE 73
[2019-02-26 14:45] VITALS: BP 95/48; PULSE 67; RESP 18; TEMP 36.9; O2SAT 95
[2019-02-26 16:30] LABS: Bedside Glucose 89 mg/dL (70-110)
[2019-02-26 18:39] VITALS: PULSE 71; RESP 18
[2019-02-26 21:36] LABS: Bedside Glucose 179 mg/dL (70-110)
[2019-02-26 21:47] VITALS: BP 130/64; PULSE 65
[2019-02-26] MEDS: MELATONIN 10 MG TABLET PO (21:47)
[2019-02-26] MEDS: Pramipexole Di-HCl 0.25 MG Tablet PO (21:47)
[2019-02-26] MEDS: Pravastatin 80 MG Tablet PO (21:47)
--- NOTE | 2019-02-27 04:28 | NURSING ---
Pt remains in contact precautions d/t MRSA in urine. All care provided in room.
[2019-02-27] MEDS: Menthol/Lanolin/Calamine/Znox 113 GM Tube 1 APPLIC TOPICAL ×2 (06:02→22:22)
[2019-02-27] MEDS: Nystatin Powder 15gm Bottle 1 APPLIC TOPICAL ×2 (06:02→22:22)
[2019-02-27] MEDS: Senna/Docusate Sodium 1 Tablet PO ×2 (06:08→16:44)
[2019-02-27] MEDS: Polyethylene Glycol 3350 17 GM PACKET PO (06:08)
[2019-02-27] MEDS: Enoxaparin 40 MG/0.4 ML Syringe SC (06:08)
[2019-02-27] MEDS: Cefadroxil 500 MG CAPSULE 1000 MG PO ×2 (06:08→16:44)
[2019-02-27] MEDS: Furosemide 40 MG Tablet PO ×2 (06:08→16:44)
[2019-02-27] MEDS: Tamsulosin HCl 0.4 MG Capsule PO (06:08)
[2019-02-27 06:09] VITALS: BP 120/60; PULSE 67
[2019-02-27] MEDS: Pantoprazole Sodium 40 MG Tablet PO (06:09)
[2019-02-27] MEDS: FLUoxetine 20 MG Capsule PO (06:09)
[2019-02-27] MEDS: Doxycycline 100 MG CAPSULE PO ×2 (06:09→16:44)
[2019-02-27] MEDS: Amantadine 100 MG Capsule PO (06:09)
[2019-02-27] MEDS: Metoprolol Tartrate 100 MG Tablet PO ×3 (06:09→22:16)
[2019-02-27 06:30] LABS: Bedside Glucose 133 mg/dL (70-110)
[2019-02-27 07:25] VITALS: PULSE 59; RESP 18
[2019-02-27] MEDS: Budesonide Respules 0.5 MG/2 ML AMPUL.NEB. INHALATION ×2 (07:25→18:34)
[2019-02-27] MEDS: Insulin Lispro 100 UNIT/ML INSULN.PEN 12 UNIT SC ×3 (09:08→17:46)
[2019-02-27] MEDS: Aspirin 81 MG TAB.CHEW PO (09:08)
[2019-02-27 11:36] LABS: Bedside Glucose 198 mg/dL (70-110)
[2019-02-27 13:08] VITALS: PULSE 88
[2019-02-27 15:29] VITALS: BP 118/51; PULSE 69; RESP 20; TEMP 36.6; O2SAT 95
[2019-02-27 17:10] LABS: Bedside Glucose 112 mg/dL (70-110)
[2019-02-27 18:34] VITALS: PULSE 67; RESP 18; O2SAT 98
[2019-02-27 21:51] LABS: Bedside Glucose 161 mg/dL (70-110)
[2019-02-27 22:16] VITALS: BP 147/74; PULSE 64
[2019-02-27] MEDS: Pravastatin 80 MG Tablet PO (22:16)
[2019-02-27] MEDS: Pramipexole Di-HCl 0.25 MG Tablet PO (22:16)
[2019-02-27] MEDS: MELATONIN 10 MG TABLET PO (22:16)
[2019-02-27] MEDS: oxyCODONE 5 MG Tablet PO (22:19)
[2019-02-28 06:16] LABS: Bedside Glucose 140 mg/dL (70-110)
[2019-02-28 07:00] VITALS: BP 159/81; PULSE 64
[2019-02-28] MEDS: Metoprolol Tartrate 100 MG Tablet PO ×3 (07:00→20:59)
[2019-02-28] MEDS: Furosemide 40 MG Tablet PO ×2 (07:00→17:49)
[2019-02-28] MEDS: Polyethylene Glycol 3350 17 GM PACKET PO (07:00)
[2019-02-28] MEDS: FLUoxetine 20 MG Capsule PO (07:00)
[2019-02-28] MEDS: Pantoprazole Sodium 40 MG Tablet PO (07:00)
[2019-02-28] MEDS: Senna/Docusate Sodium 1 Tablet PO ×2 (07:00→17:49)
[2019-02-28] MEDS: Amantadine 100 MG Capsule PO (07:00)
[2019-02-28] MEDS: Enoxaparin 40 MG/0.4 ML Syringe SC (07:01)
[2019-02-28] MEDS: Cefadroxil 500 MG CAPSULE 1000 MG PO ×2 (07:01→17:49)
[2019-02-28] MEDS: Tamsulosin HCl 0.4 MG Capsule PO (07:01)
[2019-02-28] MEDS: Doxycycline 100 MG CAPSULE PO ×2 (07:01→17:49)
[2019-02-28] MEDS: Menthol/Lanolin/Calamine/Znox 113 GM Tube 1 APPLIC TOPICAL ×2 (07:01→20:58)
[2019-02-28] MEDS: Nystatin Powder 15gm Bottle 1 APPLIC TOPICAL ×2 (07:02→20:59)
[2019-02-28 07:10] VITALS: PULSE 70; RESP 18
[2019-02-28] MEDS: Budesonide Respules 0.5 MG/2 ML AMPUL.NEB. INHALATION (07:10)
[2019-02-28] MEDS: Aspirin 81 MG TAB.CHEW PO (08:09)
[2019-02-28] MEDS: Insulin Lispro 100 UNIT/ML INSULN.PEN 12 UNIT SC ×3 (08:09→17:51)
[2019-02-28 10:41] LABS: Bedside Glucose 184 mg/dL (70-110)
[2019-02-28 13:31] VITALS: BP 144/77; PULSE 73
[2019-02-28 15:13] VITALS: BP 141/75; PULSE 66; RESP 18; TEMP 36.6; O2SAT 93
[2019-02-28 17:21] LABS: Bedside Glucose 114 mg/dL (70-110)
[2019-02-28 20:14] VITALS: PULSE 70; RESP 18
[2019-02-28 20:59] VITALS: BP 118/64; PULSE 61
[2019-02-28] MEDS: Pramipexole Di-HCl 0.25 MG Tablet PO (20:59)
[2019-02-28] MEDS: Pravastatin 80 MG Tablet PO (20:59)
[2019-02-28 21:31] LABS: Bedside Glucose 150 mg/dL (70-110)
[2019-03-01] MEDS: Amantadine 100 MG Capsule PO (05:41)
[2019-03-01] MEDS: Cefadroxil 500 MG CAPSULE 1000 MG PO ×2 (05:41→16:33)
[2019-03-01] MEDS: FLUoxetine 20 MG Capsule PO (05:41)
[2019-03-01] MEDS: Furosemide 40 MG Tablet PO ×2 (05:41→16:33)
[2019-03-01] MEDS: Senna/Docusate Sodium 1 Tablet PO ×2 (05:41→16:33)
[2019-03-01] MEDS: Enoxaparin 40 MG/0.4 ML Syringe SC (05:41)
[2019-03-01] MEDS: Pantoprazole Sodium 40 MG Tablet PO (05:41)
[2019-03-01 05:42] VITALS: BP 141/59; PULSE 57
[2019-03-01] MEDS: Metoprolol Tartrate 100 MG Tablet PO ×3 (05:42→20:51)
[2019-03-01] MEDS: Tamsulosin HCl 0.4 MG Capsule PO (05:42)
[2019-03-01] MEDS: Menthol/Lanolin/Calamine/Znox 113 GM Tube 1 APPLIC TOPICAL ×2 (05:42→20:55)
[2019-03-01] MEDS: Polyethylene Glycol 3350 17 GM PACKET PO (05:42)
[2019-03-01] MEDS: Doxycycline 100 MG CAPSULE PO ×2 (05:42→16:33)
[2019-03-01] MEDS: Nystatin Powder 15gm Bottle 1 APPLIC TOPICAL ×2 (05:47→20:54)
[2019-03-01 06:30] LABS: Bedside Glucose 139 mg/dL (70-110)
[2019-03-01] MEDS: Aspirin 81 MG TAB.CHEW PO (08:52)
[2019-03-01] MEDS: Insulin Lispro 100 UNIT/ML INSULN.PEN 12 UNIT SC ×2 (08:54→12:24)
[2019-03-01 11:15] LABS: Bedside Glucose 175 mg/dL (70-110)
[2019-03-01 13:08] VITALS: BP 139/60; PULSE 68
[2019-03-01 16:00] VITALS: BP 120/56; PULSE 63; RESP 20; TEMP 37.2; O2SAT 97
[2019-03-01 16:50] LABS: Bedside Glucose 95 mg/dL (70-110)
[2019-03-01 20:15] VITALS: PULSE 66; RESP 18
[2019-03-01 20:51] VITALS: BP 138/66; PULSE 63
[2019-03-01] MEDS: Pramipexole Di-HCl 0.25 MG Tablet PO (20:51)
[2019-03-01] MEDS: Pravastatin 80 MG Tablet PO (20:51)
[2019-03-01 21:30] LABS: Bedside Glucose 213 mg/dL (70-110)
[2019-03-01] MEDS: MELATONIN 10 MG TABLET PO (21:56)
[2019-03-01] MEDS: oxyCODONE 5 MG Tablet PO (21:56)
[2019-03-02] VITALS (7 sets, daily range): BP systolic 111–149; BP diastolic 49–59; PULSE 59–69; RESP 18; TEMP 36.9; O2SAT 95–98
[2019-03-02] MEDS: FLUoxetine 20 MG Capsule PO (05:56)
[2019-03-02] MEDS: Furosemide 40 MG Tablet PO ×2 (05:56→17:12)
[2019-03-02] MEDS: Senna/Docusate Sodium 1 Tablet PO ×2 (05:56→17:12)
[2019-03-02] MEDS: Doxycycline 100 MG CAPSULE PO ×2 (05:56→17:12)
[2019-03-02] MEDS: Tamsulosin HCl 0.4 MG Capsule PO (05:56)
[2019-03-02] MEDS: Pantoprazole Sodium 40 MG Tablet PO (05:56)
[2019-03-02] MEDS: Amantadine 100 MG Capsule PO (05:56)
[2019-03-02] MEDS: Polyethylene Glycol 3350 17 GM PACKET PO (05:56)
[2019-03-02] MEDS: Cefadroxil 500 MG CAPSULE 1000 MG PO ×2 (05:57→17:12)
[2019-03-02] MEDS: Enoxaparin 40 MG/0.4 ML Syringe SC (05:57)
[2019-03-02] MEDS: Metoprolol Tartrate 100 MG Tablet PO ×3 (05:57→21:10)
[2019-03-02] MEDS: Nystatin Powder 15gm Bottle 1 APPLIC TOPICAL ×2 (06:02→21:10)
[2019-03-02] MEDS: Menthol/Lanolin/Calamine/Znox 113 GM Tube 1 APPLIC TOPICAL ×2 (06:03→21:10)
[2019-03-02 06:26] LABS: Bedside Glucose 150 mg/dL (70-110)
[2019-03-02] MEDS: Budesonide Respules 0.5 MG/2 ML AMPUL.NEB. INHALATION ×2 (07:15→18:50)
[2019-03-02] MEDS: Aspirin 81 MG TAB.CHEW PO (08:08)
[2019-03-02] MEDS: Insulin Lispro 100 UNIT/ML INSULN.PEN 7 UNIT SC ×3 (08:08→17:13)
[2019-03-02] MEDS: oxyCODONE 5 MG Tablet PO (10:38)
--- NOTE | 2019-03-02 11:26 | CASEMGMT ---
Addendum entered by Stephanie Bruce 03/02/19 18:18: feels pt has returned to baseline from therapy training today and pt requesting to DC home 03/05. Referred to [facility] to restart SN services. No DME needs. Plan: DC home 03/05 with [facility]. Original Note: Social Work IDT met with patient and for care plan meeting. Discussed patient's progress in therapy. Pt is min to mod sit to stand, min UE ADLs, mod LE ADLs, walking 200ft with FWW CGA, 1 step. states this is close to what pt needed at home. will participate in therapy training today to see when she is comfortable having pt DC home. Will continue to follow. Stephanie Bruce, [employer] TECHNICIAN
[2019-03-02] MEDS: Acetaminophen 500 MG Tablet 1000 MG PO (11:27)
[2019-03-02 11:30] LABS: Bedside Glucose 171 mg/dL (70-110)
[2019-03-02 17:06] LABS: Bedside Glucose 145 mg/dL (70-110)
[2019-03-02 20:51] LABS: Bedside Glucose 237 mg/dL (70-110)
[2019-03-02] MEDS: Pravastatin 80 MG Tablet PO (21:10)
[2019-03-02] MEDS: MELATONIN 10 MG TABLET PO (21:10)
[2019-03-02] MEDS: Pramipexole Di-HCl 0.25 MG Tablet PO (21:10)
--- NOTE | 2019-03-02 21:15 | NURSING ---
Addendum entered by Emelina Cruz 03/02/19 23:30: Pt applied bipap at this time. Original Note: Offered to put pts bipap on at this time. Pt refused-will try again later tonight.
[2019-03-03] MEDS: Polyethylene Glycol 3350 17 GM PACKET PO (05:47)
[2019-03-03 05:50] VITALS: BP 124/90; PULSE 58
[2019-03-03] MEDS: Senna/Docusate Sodium 1 Tablet PO ×2 (05:50→16:56)
[2019-03-03] MEDS: Amantadine 100 MG Capsule PO (05:50)
[2019-03-03] MEDS: Tamsulosin HCl 0.4 MG Capsule PO (05:50)
[2019-03-03] MEDS: Pantoprazole Sodium 40 MG Tablet PO (05:50)
[2019-03-03] MEDS: FLUoxetine 20 MG Capsule PO (05:50)
[2019-03-03] MEDS: Furosemide 40 MG Tablet PO ×2 (05:50→16:56)
[2019-03-03] MEDS: Enoxaparin 40 MG/0.4 ML Syringe SC (05:50)
[2019-03-03] MEDS: Metoprolol Tartrate 100 MG Tablet PO ×3 (05:50→20:50)
[2019-03-03] MEDS: Doxycycline 100 MG CAPSULE PO ×2 (05:50→16:56)
[2019-03-03] MEDS: Cefadroxil 500 MG CAPSULE 1000 MG PO ×2 (05:50→16:55)
[2019-03-03] MEDS: Nystatin Powder 15gm Bottle 1 APPLIC TOPICAL ×2 (05:51→20:54)
[2019-03-03] MEDS: Menthol/Lanolin/Calamine/Znox 113 GM Tube 1 APPLIC TOPICAL ×2 (05:51→20:54)
[2019-03-03 06:15] LABS: Bedside Glucose 173 mg/dL (70-110)
[2019-03-03 06:55] VITALS: PULSE 65; RESP 16; O2SAT 95
[2019-03-03] MEDS: Budesonide Respules 0.5 MG/2 ML AMPUL.NEB. INHALATION ×2 (06:55→19:32)
[2019-03-03] MEDS: Insulin Lispro 100 UNIT/ML INSULN.PEN 7 UNIT SC ×3 (07:50→17:42)
[2019-03-03] MEDS: Aspirin 81 MG TAB.CHEW PO (07:50)
[2019-03-03] MEDS: oxyCODONE 5 MG Tablet PO (09:17)
[2019-03-03] MEDS: Acetaminophen 500 MG Tablet 1000 MG PO (09:17)
--- NOTE | 2019-03-03 10:13 | PCM.PN.ID ---
Patient Problems: Active and Suspected Problems (Last Reviewed 06/18/18 @ 10:28 by Prashanth Peña MD) Debility (Acute) Complicated UTI (urinary tract infection) (Acute) Acute respiratory failure (Acute) Subjective: Feeling well, no fever, working with PT. No n/v. - Physical Exam General: Alert, Cooperative, No apparent distress Lungs: Clear to auscultation, Normal air movement Cardiovascular: Regular rate, Regular Rhythm Abdomen: Soft, Non Tender, Non-Distended Skin: No rashes Vital Signs Temp Pulse Resp BP Pulse Ox 98.5 F 65 16 124/90 H 95 03/02/19 16:00 03/03/19 06:55 03/03/19 06:55 03/03/19 05:50 03/03/19 06:55 Oxygen Delivery Method Room Air Weight: 119.89 kg Body Mass Index (BMI) 40.3 Finger Stick Blood Glucose 250 Intake and Output for Last 24 Hours 03/01/19 03/02/19 03/03/19 23:59 23:59 23:59 Intake Total 1540 / 1540 1240 / 1240 240 / 240 Output Total 4250 / 4250 5900 / 5900 2170 / 2170 Balance -2710 / -2710 -4660 / -4660 -1930 / -1930 POC Glucose 03/03/19 03/02/19 03/02/19 06:07 20:47 16:55 POC Glucose 173 H 237 H 145 H 03/02/19 11:26 POC Glucose 171 H Medical Necessity - Tobacco Use Smoking Status: Former smoker Tobacco Use: Non-smoker Route of nutrition/ use of supplements: [] Nutritional Intake: [] IV Site: [] Lane Catheter: [] - Assessment/Plan Antibiotics: [] Assessment/Plan: [] Active and Suspected Problems (Last Reviewed 06/18/18 @ 10:28 by Prashanth Peña MD) Debility (Acute) Complicated UTI (urinary tract infection) (Acute) Acute respiratory failure (Acute) sepsis due to ecoli bacteremia from suspected urinary source with suprapubic catheter in place - feeling better, fever and wbc improved. Bcx with ecoli. Ucx also with MRSA and small amount of PsA. Doubt the PsA is true pathogen, but will cover for MRSA with po doxy. 02/23 narrowed zosyn to cefazolin to cover for the ecoli. Sent to TCU on doxy 100mg bid and duricef 1gm bid, will stop today. Will follow as needed, please call with any ?s
[2019-03-03 11:16] LABS: Bedside Glucose 177 mg/dL (70-110)
[2019-03-03 14:15] VITALS: BP 140/55; PULSE 66
[2019-03-03 15:51] VITALS: BP 125/53; PULSE 62; RESP 16; TEMP 36.8; O2SAT 96
[2019-03-03 17:11] LABS: Bedside Glucose 137 mg/dL (70-110)
[2019-03-03 19:32] VITALS: PULSE 64; RESP 16
[2019-03-03] MEDS: MELATONIN 10 MG TABLET PO (20:49)
[2019-03-03 20:50] VITALS: BP 116/81; PULSE 66
[2019-03-03] MEDS: Pramipexole Di-HCl 0.25 MG Tablet PO (20:50)
[2019-03-03] MEDS: Pravastatin 80 MG Tablet PO (20:50)
--- NOTE | 2019-03-03 21:16 | PCM.DC ---
- Discharge Diagnoses Current Active Problems: Current Active and Chronic Problems (Last Reviewed 06/18/18 @ 10:28 by Prashanth Peña MD) Debility (Acute) Complicated UTI (urinary tract infection) (Acute) Acute respiratory failure (Acute) Coronary artery disease (Chronic) Diabetes mellitus (Chronic) Anemia (Chronic) Acute on chronic systolic heart failure (Chronic) Restless leg syndrome (Chronic) You will use the following diet at home:: No restrictions, Regular Your food should be the consistency of: Regular Your liquids should be the consistency of: Regular/Thin Discharge Activity: Return to Normal Activity, May Shower, Use Walker Weight Bearing Status: Weight bearing as tolerated Call your doctor if you observe: Fever of 101 or Higher, Inability to urinate, Inability to have a bowel movement, Shortness of breath, Chest pain, Uncontrolled pain Allergies/Adverse Reactions: Allergies cilostazol Allergy (Verified 02/20/19 18:38) Hives colestipol Allergy (Verified 02/20/19 18:38) Hives diltiazem Allergy (Verified 02/20/19 18:38) Hives gemfibrozil Allergy (Verified 02/20/19 18:38) Hives naproxen [From Naprosyn] Allergy (Verified 02/20/19 18:38) Hives Nitrate Analogues Allergy (Verified 02/20/19 18:38) Hives Penicillins Allergy (Verified 02/20/19 18:38) Hives procainamide Allergy (Verified 02/20/19 18:38) Hives rosuvastatin Allergy (Verified 02/20/19 18:38) Hives simvastatin Allergy (Verified 02/20/19 18:38) Hives isosorbide Adverse Reaction (Severe, Verified 02/20/19 18:38) Unknown Medications to take at Discharge Amantadine [Symmetrel] 100 mg PO DAILY 04/17/18 Budesonide [Pulmicort] 0.5 mg IH BID 04/17/18 Fluticasone 0.05% [Flonase Nasal [place]] 2 spray NASAL DAILY 04/17/18 Metoprolol Tartrate [Lopressor (beta stepan)] 100 mg PO TID 04/17/18 Pantoprazole Sodium [Protonix] 40 mg PO DAILY 04/17/18 Pramipexole Di-HCl [Mirapex] 0.25 mg PO QHS 04/17/18 Pravastatin Sodium 80 mg PO QHS 04/17/18 Tamsulosin HCl [Flomax] 0.4 mg PO DAILY 04/17/18 furosemide 40 mg tablet 40 mg PO BID tab 06/17/18 potassium chloride ER 20 mEq tablet,extended release(part/cryst) 20 meq PO DAILY 90 Days #90 tab 06/17/18 Fluoxetine [Prozac] 20 mg PO DAILY 02/20/19 Hydroxyzine HCl 25 mg PO Q6H PRN 02/20/19 Nitroglycerin 0.4 mg SL PRN PRN 02/20/19 Aspirin [Aspirin, Baby] 81 mg PO DAILY@0800 02/24/19 Acetaminophen [Tylenol] 1,000 mg PO Q6H PRN PRN tab 03/03/19 Insulin Glargine [Lantus SoloStar Pen] 10 units SUBCUT BID #1 pen 03/03/19 Insulin Lispro [Humalog KwikPen] 7 unit SUBCUT TIDCM insuln.pen 03/03/19 Melatonin 10 mg PO QHS PRN PRN tab 03/03/19 Menthol/Lanolin/Calamine/Znox [Calmoseptine Ointment] 1 applic TOPICAL 0600,2200 tube 03/03/19 Nystatin Powder [Mycostatin Powder] 1 applic TOPICAL 0600,2200 bottle 03/03/19 Oxycodone [Oxyir] 5 mg PO Q4H PRN PRN 7 Days #28 tab 03/03/19 The following prescriptions were given: Insulin Glargine [Lantus SoloStar Pen] 10 units SUBCUT BID #1 pen Transmission Status: Pending to [facility] [place] - [address] Oxycodone [Oxyir] 5 mg PO Q4H PRN PRN 7 Days #28 tab PRN Reason: Pain Score 4-5/10 Prescription Printed Primary Care Physician: Julissa Lamb MD [Primary Care Provider] - Please follow up with your Primary Care Physician in: 1 week. Test Results: Test results from this visit will be discussed in further detail at your follow-up appointment, if applicable. Please Follow Up With: Deshawn Esteban MD When: 2 weeks. Please Follow Up With: Prashanth Peña MD When: 2 weeks. Please Follow Up With: Julissa Lamb MD Proposed Discharge Date: 03/05/19
--- NOTE | 2019-03-03 21:18 | PCM.DC.SUM ---
Discharge Date and Diagnosis - Problem List Patient Problems: Active and Suspected Problems (Last Reviewed 06/18/18 @ 10:28 by Prashanth Peña MD) Debility (Acute) Complicated UTI (urinary tract infection) (Acute) Acute respiratory failure (Acute) Date of Admission: 02/24/19 Date of Discharge: 03/05/19 - Primary Discharge Diagnosis Active and Suspected Problems (Last Reviewed 06/18/18 @ 10:28 by Prashanth Peña MD) Debility (Acute) Complicated UTI (urinary tract infection) (Acute) Acute respiratory failure (Acute) - Secondary Discharge Diagnosis Chronic Problems (Last Reviewed 06/18/18 @ 10:28 by Prashanth Peña MD) COPD with acute exacerbation (Chronic) Chronic suprapubic catheter (Chronic) CAD in [place] artery (Chronic) Coronary artery disease (Chronic) Diabetes mellitus (Chronic) Anemia (Chronic) Acute on chronic systolic heart failure (Chronic) Restless leg syndrome (Chronic) Hyperlipidemia (Chronic) Ischemic cardiomyopathy (Chronic) Essential (primary) hypertension (Chronic) Atherosclerosis of coronary artery bypass graft without angina pectoris (Chronic) [facility] w/VAP-CRF-Dfyi LAD w/ 3.0 x 9 mm Resolute Stent (grafts occluded x 3) 02/20/17 CVA (cerebral vascular accident) (Chronic) Residual right-sided hemiplegia Osteomyelitis of sacrum (Chronic) Traumatic brain injury (Chronic) Intraparenchymal hemorrhage of brain (Chronic) Subarachnoid hemorrhage (Chronic) Subdural hematoma (Chronic) Intraventricular hemorrhage (Chronic) Tobacco abuse (Chronic) Alcohol abuse (Chronic) Non-ST elevation myocardial infarction (NSTEMI), initial care episode (Chronic) 02/16/17 COPD (chronic obstructive pulmonary disease) (Chronic) Hospital Course and Treatment Imaging Results: 02/24/19 14:59 Diet: Calorie Controlled Food consistency:: Regular Liquid Consistency:: Regular/Thin Is pt able to select menu?: Yes How many daily calories?: 1800 calorie Labs (Last 48 Hours) 03/01/19 03/02/19 03/02/19 21:26 06:13 11:26 POC Glucose 213 H 150 H 171 H 03/02/19 03/02/19 03/03/19 16:55 20:47 06:07 POC Glucose 145 H 237 H 173 H 03/03/19 03/03/19 11:08 16:58 POC Glucose 177 H 137 H Consultations 02/24/19 15:06 ET [Consult: Onc/Wound/ager tender] Routine Comment: Reason for Consult:: colostomy Operations: None, - - 01/22/18 - Excision sacral pressure sore, Stage IV, with partial ostectomy for osteomyelitis. 01/29/18 - Laparoscopic diverting end sigmoid colostomy. Procedures: None Summary of Care Provided: The patient is a 68 year old Male with below past medical history hospitalized for sepsis secondary to E. Coli UTI, complicated by acute respiratory failure, NSTEMI, admitted to TCU with debility, here for rehabilitation, strengthening, prior to discharge home with spouse. Discharge home with , [facility]. Patient Problems: Active and Suspected Problems (Last Reviewed 06/18/18 @ 10:28 by Prashanth Peña MD) Debility (Acute) Complicated UTI (urinary tract infection) (Acute) Acute respiratory failure (Acute) - Physical Exam Vital Signs Temp Pulse Resp BP Pulse Ox 98.3 F 66 16 116/81 H 96 03/03/19 15:51 03/03/19 20:50 03/03/19 19:32 03/03/19 20:50 03/03/19 15:51 Oxygen Delivery Method Room Air Weight: 119.89 kg Body Mass Index (BMI) 40.3 Finger Stick Blood Glucose 250 Intake and Output for Last 24 Hours 03/01/19 03/02/19 03/03/19 23:59 23:59 23:59 Intake Total 1540 / 1540 1240 / 1240 600 / 600 Output Total 4250 / 4250 5900 / 5900 4170 / 4170 Balance -2710 / -2710 -4660 / -4660 -3570 / -3570 POC Glucose 03/03/19 03/03/19 03/03/19 16:58 11:08 06:07 POC Glucose 137 H 177 H 173 H Discharge Diet: No Restrictions Discharge Activity: Return to Normal Activity, May Shower, Use Walker Weight Bearing Status: Weight bearing as tolerated Call your doctor if you observe: Fever of 101 or Higher, Inability to urinate, Inability to have a bowel movement, Shortness of breath, Chest pain, Uncontrolled pain Home Medications: Medications to take at Discharge Amantadine [Symmetrel] 100 mg PO DAILY 04/17/18 Budesonide [Pulmicort] 0.5 mg IH BID 04/17/18 Fluticasone 0.05% [Flonase Nasal [place]] 2 spray NASAL DAILY 04/17/18 Metoprolol Tartrate [Lopressor (beta stepan)] 100 mg PO TID 04/17/18 Pantoprazole Sodium [Protonix] 40 mg PO DAILY 04/17/18 Pramipexole Di-HCl [Mirapex] 0.25 mg PO QHS 04/17/18 Pravastatin Sodium 80 mg PO QHS 04/17/18 Tamsulosin HCl [Flomax] 0.4 mg PO DAILY 04/17/18 furosemide 40 mg tablet 40 mg PO BID tab 06/17/18 potassium chloride ER 20 mEq tablet,extended release(part/cryst) 20 meq PO DAILY 90 Days #90 tab 06/17/18 Fluoxetine [Prozac] 20 mg PO DAILY 02/20/19 Hydroxyzine HCl 25 mg PO Q6H PRN 02/20/19 Nitroglycerin 0.4 mg SL PRN PRN 02/20/19 Aspirin [Aspirin, Baby] 81 mg PO DAILY@0800 02/24/19 Acetaminophen [Tylenol] 1,000 mg PO Q6H PRN PRN tab 03/03/19 Insulin Glargine [Lantus SoloStar Pen] 10 units SUBCUT BID #1 pen 03/03/19 Insulin Lispro [Humalog KwikPen] 7 unit SUBCUT TIDCM insuln.pen 03/03/19 Melatonin 10 mg PO QHS PRN PRN tab 03/03/19 Menthol/Lanolin/Calamine/Znox [Calmoseptine Ointment] 1 applic TOPICAL 0600,2200 tube 03/03/19 Nystatin Powder [Mycostatin Powder] 1 applic TOPICAL 0600,2200 bottle 03/03/19 Oxycodone [Oxyir] 5 mg PO Q4H PRN PRN 7 Days #28 tab 03/03/19 Following Prescrptions Were Given to Patient: Insulin Glargine [Lantus SoloStar Pen] 10 units SUBCUT BID #1 pen Transmission Status: Pending to [facility], [place] [place] - [id number] Oxycodone [Oxyir] 5 mg PO Q4H PRN PRN 7 Days #28 tab PRN Reason: Pain Score 4-5/10 Prescription Printed Primary Care Physician: Julissa Lamb MD [Primary Care Provider] - Please follow up with your Primary Care Physician in: 1 week. Please Follow Up With: Deshawn Esteban MD When: 2 weeks. Please Follow Up With: Prashanth Peña MD When: 2 weeks. Please Follow Up With: Julissa Lamb MD Disposition: Home with Home Health Minutes spent on discharge:: 35 Patient Condition:: Good Medical Necessity - Tobacco Use Smoking Status: Former smoker Tobacco Use: Non-smoker Meaningful Use Info Meaningful Use Diagnoses (Choose all that apply): None applicable
--- NOTE | 2019-03-03 21:19 | HHNOTE_ITS ---
Home Health Note - Plan Overview of reason of hospitalization: The patient is a 68 year old Male with below past medical history hospitalized for sepsis secondary to E. Coli UTI, complicated by acute respiratory failure, NSTEMI, admitted to TCU with debility, here for rehabilitation, strengthening, prior to discharge home with spouse. Discharge home with , [facility]. Problems: Patient was seen for (Last Reviewed 06/18/18 @ 10:28 by Prashanth Peña MD) Debility (Acute) Complicated UTI (urinary tract infection) (Acute) Acute respiratory failure (Acute) Coronary artery disease (Chronic) Diabetes mellitus (Chronic) Anemia (Chronic) Acute on chronic systolic heart failure (Chronic) Restless leg syndrome (Chronic) Complete List of Medical Problems (Last Reviewed 06/18/18 @ 10:28 by Prashanth Peña MD) Severe sepsis (Acute) COPD exacerbation (Acute) Pneumonia (Acute) Acute respiratory failure with hypoxia and hypercapnia (Acute) COPD with acute exacerbation (Chronic) Chronic suprapubic catheter (Chronic) Recurrent UTI (urinary tract infection) (Acute) Abnormal cardiac enzyme level (Acute) CAD in [place] artery (Chronic) Bacteremia due to Escherichia coli (Acute) Debility (Acute) Complicated UTI (urinary tract infection) (Acute) Acute respiratory failure (Acute) Coronary artery disease (Chronic) Diabetes mellitus (Chronic) Anemia (Chronic) Acute on chronic systolic heart failure (Chronic) Restless leg syndrome (Chronic) Hyperlipidemia (Chronic) Ischemic cardiomyopathy (Chronic) Essential (primary) hypertension (Chronic) Acute on chronic systolic (congestive) heart failure (Acute) Atherosclerosis of coronary artery bypass graft without angina pectoris (Chronic) CVA (cerebral vascular accident) (Chronic) Osteomyelitis of sacrum (Chronic) Traumatic brain injury (Chronic) Intraparenchymal hemorrhage of brain (Chronic) Subarachnoid hemorrhage (Chronic) Subdural hematoma (Chronic) Intraventricular hemorrhage (Chronic) Tobacco abuse (Chronic) Alcohol abuse (Chronic) Non-ST elevation myocardial infarction (NSTEMI), initial care episode (Chronic) COPD (chronic obstructive pulmonary disease) (Chronic) - Requirements and Reasons Disciplines Needed/Ordered: Assisted Reason for Disciplines: Disease Specific Monitoring/education, Medication Management/Knowledge Deficit, Drainage Devices/Tube Care, Cather Care and/or Changes, Teaching of Injections Related To: Change in Medical Treatment Plan, Physical Impairments Patient is unable to leave the home: Without Aid of Supportive Devices (crutches, cane, wheelchair, walker), Without the assistance of another person
[2019-03-03 21:20] LABS: Bedside Glucose 201 mg/dL (70-110)
[2019-03-04 05:43] VITALS: BP 139/61; PULSE 58
[2019-03-04] MEDS: Furosemide 40 MG Tablet PO ×2 (05:43→18:52)
[2019-03-04] MEDS: Pantoprazole Sodium 40 MG Tablet PO (05:43)
[2019-03-04] MEDS: Senna/Docusate Sodium 1 Tablet PO ×2 (05:43→18:52)
[2019-03-04] MEDS: Metoprolol Tartrate 100 MG Tablet PO ×3 (05:43→21:48)
[2019-03-04] MEDS: FLUoxetine 20 MG Capsule PO (05:43)
[2019-03-04] MEDS: Enoxaparin 40 MG/0.4 ML Syringe SC (05:43)
[2019-03-04] MEDS: Amantadine 100 MG Capsule PO (05:43)
[2019-03-04] MEDS: Polyethylene Glycol 3350 17 GM PACKET PO (05:44)
[2019-03-04] MEDS: Tamsulosin HCl 0.4 MG Capsule PO (05:44)
[2019-03-04] MEDS: Nystatin Powder 15gm Bottle 1 APPLIC TOPICAL ×2 (05:44→21:45)
[2019-03-04] MEDS: Menthol/Lanolin/Calamine/Znox 113 GM Tube 1 APPLIC TOPICAL ×2 (05:50→21:46)
[2019-03-04 05:55] LABS: Absolute Lymphocyte Count 2.05 X10^3/uL (0.83-4.51); Absolute Neutrophil Count 4.4 X10^3/uL (2.0-7.7); Basophil# 0.05 X10^3/uL; Basophil% 0.7 % (0-1); Eosinophil# 0.13 X10^3/uL; Eosinophils% 1.8 % (0-5); Hematocrit 40.7 % (40-54); Hemoglobin 12.2 g/dL (13.0-16.5); Lymphocyte # 2.05 X10^3/ul (4.0); Lymphocyte % 27.9 % (19-41); Mean Corpuscular Hgb 27.8 pg (27.0-32.0); Mean Corpuscular Volume 92.7 fL (80-94); Mean Platelet Vol. 11.9 fl (6.2-12.0); Monocyte# 0.71 X10^3/uL; Monocyte% 9.6 % (0-10); NRBC Flagged by Analyzer 0 % (0-5); Neutrophil # 4.38 X10^3/uL (2.7-7.7); Neutrophil % 59.5 % (47-70); Platelet Count 179 K/mm3 (150-450); RBC Distribution Width CV 14.1 % (11.6-14.6); RBC Distribution Width SD 47.3 fl (35.1-43.9); Red Blood Count 4.39 M/mm3 (4.6-6.2); White Blood Count 7.4 K/mm3 (4.4-11.0)
[2019-03-04 06:00] LABS: Anion Gap 7 (5-15); BUN 13 mg/dL (7-18); BUN/Creat Ratio 17.4 RATIO (10-20); Chloride 109 mmol/L (98-107); Creatinine, Serum 0.75 mg/dL (0.70-1.30); EST Glomerular Filtration Rate 111 mL/min (>60); Est Glom Filt Rate - Afr Amer 134 mL/min (>60); Glucose 153 mg/dL (74-106); Potassium 3.9 mmol/L (3.5-5.1); Sodium Level 144 mmol/L (136-145)
[2019-03-04 06:31] LABS: Bedside Glucose 161 mg/dL (70-110)
[2019-03-04] MEDS: Budesonide Respules 0.5 MG/2 ML AMPUL.NEB. INHALATION ×2 (07:00→19:07)
[2019-03-04 07:28] VITALS: PULSE 66; RESP 20; O2SAT 94
[2019-03-04] MEDS: Aspirin 81 MG TAB.CHEW PO (07:47)
[2019-03-04] MEDS: Insulin Lispro 100 UNIT/ML INSULN.PEN 7 UNIT SC ×3 (07:48→18:51)
[2019-03-04 11:30] LABS: Bedside Glucose 168 mg/dL (70-110)
[2019-03-04 13:12] VITALS: BP 138/72; PULSE 78
[2019-03-04 16:00] VITALS: BP 127/61; PULSE 60; RESP 18; TEMP 36.6; O2SAT 97
[2019-03-04 17:00] LABS: Bedside Glucose 147 mg/dL (70-110)
[2019-03-04 19:07] VITALS: PULSE 66; RESP 20
[2019-03-04 21:21] LABS: Bedside Glucose 189 mg/dL (70-110)
[2019-03-04 21:48] VITALS: BP 140/51; PULSE 67
[2019-03-04] MEDS: Pramipexole Di-HCl 0.25 MG Tablet PO (21:48)
[2019-03-04] MEDS: Pravastatin 80 MG Tablet PO (21:48)
--- NOTE | 2019-03-05 04:00 | NURSING ---
Pt offered BiPap several times this shift and refusing, states I'm sleeping well without it. educated on rationale for consistent use.
[2019-03-05] MEDS: Menthol/Lanolin/Calamine/Znox 113 GM Tube 1 APPLIC TOPICAL (06:27)
[2019-03-05] MEDS: Nystatin Powder 15gm Bottle 1 APPLIC TOPICAL (06:27)
[2019-03-05] MEDS: Polyethylene Glycol 3350 17 GM PACKET PO (06:28)
[2019-03-05] MEDS: Enoxaparin 40 MG/0.4 ML Syringe SC (06:29)
[2019-03-05 06:30] VITALS: BP 102/84; PULSE 64
[2019-03-05] MEDS: FLUoxetine 20 MG Capsule PO (06:30)
[2019-03-05] MEDS: Tamsulosin HCl 0.4 MG Capsule PO (06:30)
[2019-03-05] MEDS: Senna/Docusate Sodium 1 Tablet PO (06:30)
[2019-03-05] MEDS: Furosemide 40 MG Tablet PO (06:30)
[2019-03-05] MEDS: Pantoprazole Sodium 40 MG Tablet PO (06:30)
[2019-03-05] MEDS: Metoprolol Tartrate 100 MG Tablet PO (06:30)
[2019-03-05] MEDS: Amantadine 100 MG Capsule PO (06:30)
[2019-03-05 06:50] VITALS: PULSE 60; RESP 18
[2019-03-05 06:51] LABS: Bedside Glucose 166 mg/dL (70-110)
--- NOTE | 2019-03-05 07:42 | NURSING ---
0740- colostomy bag coming off of skin after AM care. wafer and appliance changed. site WNL bud red/moist and surrounding skin intact. moderate amount of loose brown stool in bag.
[2019-03-05] MEDS: Aspirin 81 MG TAB.CHEW PO (08:23)
[2019-03-05] MEDS: Insulin Lispro 100 UNIT/ML INSULN.PEN 7 UNIT SC (08:24)
[2019-03-05 08:27] VITALS: PULSE 61; RESP 18; O2SAT 97
[2019-03-05 08:51] VITALS: BP 124/54; PULSE 63; RESP 18; TEMP 36.7; O2SAT 97
--- NOTE | 2019-03-08 14:05 | MDS.RN ---
Information for the mds was obtained from review of the clinical record, interview of resident, staff, and direct observation of resident's care.
== END 2019-03-05 09:53 | disposition home health service (06) | DRG 689 ==
PROVIDERS: Admitting Provider Family Medicine Geriatric Medicine; Family Provider Family Medicine; PCP Family Medicine; Referring Provider Family Medicine Geriatric Medicine; Visit Provider Family Medicine Geriatric Medicine
DX: N39.0 Urinary tract infection, site not specified (principal); I21.A1 Myocardial infarction type 2; I50.22 Chronic systolic (congestive) heart failure; I69.351 Hemiplegia and hemiparesis following cerebral infarction affecting right dominant side; B96.20 Unspecified Escherichia coli [E. coli] as the cause of diseases classified elsewhere; B95.62 Methicillin resistant Staphylococcus aureus infection as the cause of diseases classified elsewhere; G20 Parkinson's disease; I25.10 Atherosclerotic heart disease of native coronary artery without angina pectoris; F32.9 Major depressive disorder, single episode, unspecified; K21.9 Gastro-esophageal reflux disease without esophagitis; E11.9 Type 2 diabetes mellitus without complications; N40.0 Benign prostatic hyperplasia without lower urinary tract symptoms; G25.81 Restless legs syndrome; E78.5 Hyperlipidemia, unspecified; E87.6 Hypokalemia; B35.4 Tinea corporis; I11.0 Hypertensive heart disease with heart failure; J44.9 Chronic obstructive pulmonary disease, unspecified; Z93.59 Other cystostomy status; Z87.891 Personal history of nicotine dependence; F41.9 Anxiety disorder, unspecified; Z93.3 Colostomy status
CPT/HCPCS: 36415; 80048; 82962; 85025; 92507; 92523; 94640; 97110; 97116; 97162; 97166; 97530; 97535; 97802

== ENCOUNTER → 2019-03-31 15:18 | Outpatient (CLI) | payer MEDICARE, MEDICAID, SELFPAY ==
[2017-02-20 12:18] VITALS: BMI 46.4
[2019-03-31 15:41] LABS: Absolute Lymphocyte Count 1.69 X10^3/uL (0.83-4.51); Absolute Neutrophil Count 4.3 X10^3/uL (2.0-7.7); Basophil# 0.05 X10^3/uL; Basophil% 0.7 % (0-1); Eosinophil# 0.19 X10^3/uL; Eosinophils% 2.7 % (0-5); Hematocrit 38.6 % (40-54); Hemoglobin 12.1 g/dL (13.0-16.5); Lymphocyte # 1.69 X10^3/ul (4.0); Lymphocyte % 24.4 % (19-41); Mean Corp Hgb Conc 31.3 g/dL (32-36); Mean Corpuscular Hgb 28.8 pg (27.0-32.0); Mean Corpuscular Volume 91.9 fL (80-94); Mean Platelet Vol. 11.4 fl (6.2-12.0); Monocyte# 0.66 X10^3/uL; Monocyte% 9.5 % (0-10); NRBC Flagged by Analyzer 0 % (0-5); Neutrophil # 4.32 X10^3/uL (2.7-7.7); Neutrophil % 62.4 % (47-70); Platelet Count 183 K/mm3 (150-450); RBC Distribution Width CV 14.1 % (11.6-14.6); RBC Distribution Width SD 47.8 fl (35.1-43.9); White Blood Count 6.9 K/mm3 (4.4-11.0)
== END ==
PROVIDERS: Family Provider Family Medicine; PCP Family Medicine; Referring Provider Nurse Practitioner Adult Health
DX: N39.0 Urinary tract infection, site not specified (principal)
CPT/HCPCS: 36415; 85025

== ENCOUNTER 2019-04-04 12:30 | Emergency (ER) | payer MEDICARE, MEDICAID, SELFPAY ==
[2017-02-20 12:18] VITALS: BMI 46.4
[2019-04-04 12:31] VITALS: BP 152/64; PULSE 65; RESP 16; TEMP 36.7; O2SAT 98; BMI 34.2
--- NOTE | 2019-04-04 12:35 | RAD_ITS ---
STUDY: X-RAY - RIGHT WRIST REASON FOR EXAM: Male, 68 years old. Pain following a fall. TECHNIQUE: 3 view(s) of the wrist were obtained. COMPARISON: None. FINDINGS: Normal visualized distal radius and ulna. There is degenerative arthrosis of the radiocarpal articulation. Normal distal radioulnar articulation. I suspect a nondisplaced avulsion fracture of the triquetrum. Clinical correlation is recommended. Normal carpal articulations. Normal carpometacarpal articulation of the thumb. Normal second through fifth carpometacarpal articulations. Normal visualized metacarpal bones. Soft tissue swelling. RAD/Wrist min 3 Views IMPRESSION: Questionable nondisplaced avulsion fracture of the triquetrum. Electronically Signed: Bakari Briggs, at 13:24 EDT , Service support ,
--- NOTE | 2019-04-04 13:09 | RAD_ITS ---
STUDY: X-RAY - RIGHT SHOULDER REASON FOR EXAM: Male, 68 years old. Pain following a fall. TECHNIQUE: 2 view(s) of the shoulder. COMPARISON: Comparison is made with prior study dated January 19, 2018. FINDINGS: There is mild degenerative arthrosis of the glenohumeral articulation. Normal acromioclavicular joint. Normal acromion. Normal humeral head and visualized proximal humerus. The soft tissue structures are unremarkable. Normal visualized pulmonary apex. RAD/Shoulder min 2 Views IMPRESSION: Degenerative changes of the glenohumeral joint. Electronically Signed: Bakari Briggs, at 14:03 EDT , Service support ,
--- NOTE | 2019-04-04 13:10 | RAD_ITS ---
STUDY: X-RAY - RIGHT ELBOW REASON FOR EXAM: Male, 68 years old. Pain following a fall. TECHNIQUE: 2 view(s) of the elbow. COMPARISON: None. FINDINGS: Normal visualized humerus, radius and ulna. Normal radiocapitellar and ulnotrochlear articulations. The soft tissue structures are unremarkable. RAD/Elbow 2 Views IMPRESSION: Normal x-ray examination of the elbow. Electronically Signed: Bakari Briggs, at 14:03 EDT , Service support ,
--- NOTE | 2019-04-04 13:13 | ED.DCSUM_ITS ---
History of Present Illness Chief Complaint: Fall Informant: Patient, Family Onset: Today Current Severity: Mild Narrative: has prior stroke causing right-sided weakness, he was sitting in a chair when somehow the cushion under the chair slipped out from underneath him, he fell to the ground using his right arm to brace himself he has pain to the right wrist slightly right elbow worsening of chronic pain to the right shoulder, he came in using his walking device which consists of a support but he leans and places his right upper extremity into so he can control the walker he has no head neck chest or abdominal pain his status is otherwise unchanged he simply slipped in the chair devices above Past Medical History - Allergies and Home Meds Allergies/Adverse Reactions: Allergies cilostazol Allergy (Verified 04/04/19 12:34) Hives colestipol Allergy (Verified 04/04/19 12:34) Hives diltiazem Allergy (Verified 04/04/19 12:34) Hives gemfibrozil Allergy (Verified 04/04/19 12:34) Hives naproxen [From Naprosyn] Allergy (Verified 04/04/19 12:34) Hives Nitrate Analogues Allergy (Verified 04/04/19 12:34) Hives Penicillins Allergy (Verified 04/04/19 12:34) Hives procainamide Allergy (Verified 04/04/19 12:34) Hives rosuvastatin Allergy (Verified 04/04/19 12:34) Hives simvastatin Allergy (Verified 04/04/19 12:34) Hives isosorbide Adverse Reaction (Severe, Verified 04/04/19 12:34) Unknown Primary Care Physician: Julissa Lamb MD [Primary Care Provider] - Past Medical History: - - As above Surgical History: angioplasty, coronary bypass surgery - x 3., - - PEG tube with eventual removal, Diverting colostomy, suprapubic catheter. Smoking Status: Former smoker - Family History Maternal Family History: Family History (Last Reviewed 06/18/18 @ 10:28 by Prashanth Peña MD) Brother Heart disease Father Heart disease Family History: Reports: - - Alzheimer's dementia. Paternal Family History: Family History (Last Reviewed 06/18/18 @ 10:28 by Prashanth Peña MD) Brother Heart disease Father Heart disease Family History: Reports: Heart Disease Review of Systems General: Reports: - - Only complaint is pain to the right wrist right elbow and worsening chronic pain to the right shoulder he still has no normal range of motion to the right upper extremity and that he can sometimes raise it to put his wrist into the brace device of walker he notices no loss of function he notices no hand pain. Denies: Chills, Fever, Sweats Eyes: Denies: Visual changes - bilaterally, Diplopia ENT: Denies: Rhinorrhea, Sore throat Cardiovascular: Denies: Chest pain, Palpitations Respiratory: Denies: Dyspnea, Cough, Dyspnea on exertion Gastrointestinal: Denies: Abdominal pain, Nausea, Vomiting, Diarrhea, Melena, Hematochezia Genitourinary: Denies: Dysuria, Hematuria, Frequency Musculoskeletal: Denies: Back pain, Extremity Pain Skin: Denies: Rash, Wounds Neurological: Denies: Headache, Weakness, Numbness Physical Exam Vital Signs/Narrative: Vital Signs Temp Pulse Resp BP Pulse Ox 04/04/19 12:31 98.1 F 65 16 152/64 H 98 General: Well nourished, Well developed, No Acute Distress Head: Normocephalic, Atraumatic Eyes: Perrl, EOMI ENT: Moist mucous membranes, No rhinorrhea Neck: Supple, Nontender Cardiovascular: Regular rate, Regular rhythm, No murmurs Respiratory: No distress, CTA bilaterally, Chest nontender Abdomen: Soft, Nontender, Nondistended, Normal bowel sounds Back: Nontender, Normal Inspection Extremities: Nontender, No edema Skin: Normal color, No rash Neurological: Alert, Oriented x3, Cranial nerves II-XII grossly intact, Normal Strength, Normal Sensation, - - Chronic weakness of the right side, he has pain in a vague fashion to the right wrist right elbow and right shoulder that is chronic per the but the right shoulder pain is worse since the fall there is no instability fracture deformity, he normally can take his right upper extremity and sometimes actually raise it and put it up into the whole device of the walker he notices no loss of function Psychological: Normal affect, Normal Mood Diagnostic/Tx/Re-eval - Medical Decision Making He denies any head neck chest or abdominal pain x-rays of the right wrist shoulder elbow are obtained X-rays of the wrist elbow shoulder show DJD questionable fracture of the triquetrum in the wrist Reviewed all of this with the family in place with a Velcro splint to immobilize the wrist he will follow-up with his orthopedic surgeon or 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
[2019-04-04] MEDS: HYDROcodone Bitartrate/Apap 5/325 Tablet PO (13:17)
[2019-04-04 13:18] VITALS: RESP 16
[2019-04-04 14:42] VITALS: RESP 18
== END 2019-04-04 14:43 | disposition home or self-care (01) ==
PROVIDERS: Emergency Provider Emergency Medicine; Family Provider Family Medicine; PCP Family Medicine
DX: S69.91XA Unspecified injury of right wrist, hand and finger(s), initial encounter (principal); W07.XXXA Fall from chair, initial encounter; Y93.89 Activity, other specified; I69.351 Hemiplegia and hemiparesis following cerebral infarction affecting right dominant side; Z95.1 Presence of aortocoronary bypass graft; Z87.891 Personal history of nicotine dependence
CPT/HCPCS: 73030; 73070; 73110; 99283

== ENCOUNTER 2019-04-08 13:04 | Emergency (ER) | payer MEDICARE, SELFPAY ==
[2017-02-20 12:18] VITALS: BMI 46.4
[2019-04-08 12:13] VITALS: BMI 37.3
[2019-04-08 13:07] VITALS: BP 146/72; PULSE 72; RESP 18; TEMP 36.2; O2SAT 98; BMI 36.3
--- NOTE | 2019-04-08 14:14 | ED.VIS.GEN ---
History of Present Illness Chief Complaint: Lane C/O Detail of Chief Complaint: Suprapubic Lane came out Informant: Patient, Family Onset: Today Narrative: Patient has chronic indwelling suprapubic Lane catheter. He went to his cardiology appointment today. When getting him back into the car noted that his clothes were wet. They noted that his Lane catheter had come out. They went to Dr. Esteban's office but they closed at noon today so were redirected to the emergency room. Patient does have a urinary tract infection and was just started on Macrobid. Past Medical History - Allergies and Home Meds Allergies/Adverse Reactions: Allergies cilostazol Allergy (Verified 04/08/19 13:06) Hives colestipol Allergy (Verified 04/08/19 13:06) Hives diltiazem Allergy (Verified 04/08/19 13:06) Hives gemfibrozil Allergy (Verified 04/08/19 13:06) Hives naproxen [From Naprosyn] Allergy (Verified 04/08/19 13:06) Hives Nitrate Analogues Allergy (Verified 04/08/19 13:06) Hives Penicillins Allergy (Verified 04/08/19 13:06) Hives procainamide Allergy (Verified 04/08/19 13:06) Hives rosuvastatin Allergy (Verified 04/08/19 13:06) Hives simvastatin Allergy (Verified 04/08/19 13:06) Hives isosorbide Adverse Reaction (Severe, Verified 04/08/19 13:06) Unknown Primary Care Physician: Julissa Lamb MD [Primary Care Provider] - Prior records reviewed: Yes Past Medical History: - - Reviewed Surgical History: angioplasty, coronary bypass surgery - x 3., - - PEG tube with eventual removal, Diverting colostomy, suprapubic catheter. Lives: Spouse/ Significant Other Smoking Status: Former smoker - Family History Maternal Family History: Family History (Last Reviewed 04/08/19 @ 12:36 by Prashanth Peña MD) Brother Heart disease Father Heart disease Family History: Reports: - - Alzheimer's dementia. Paternal Family History: Family History (Last Reviewed 04/08/19 @ 12:36 by Prashanth Peña MD) Brother Heart disease Father Heart disease Family History: Reports: Heart Disease Review of Systems General: Denies: Chills, Fever Eyes: Denies: Visual changes - bilaterally ENT: Denies: Bilateral ear pain Cardiovascular: Denies: Chest pain Respiratory: Denies: Dyspnea Gastrointestinal: Denies: Abdominal pain Genitourinary: Denies: Dysuria - Chronic indwelling suprapubic catheter Physical Exam Vital Signs/Narrative: Vital Signs Temp Pulse Resp BP Pulse Ox 04/08/19 13:07 97.1 F L 72 18 146/72 H 98 General: Well nourished, Well developed ENT: Moist mucous membranes Neck: Supple Cardiovascular: Regular rate, Regular rhythm Respiratory: No distress, CTA bilaterally Abdomen: Soft, Nontender, - - Suprapubic catheter site noted with mild signs of surrounding yeast infection. Skin: Normal color Diagnostic/Tx/Re-eval - Medical Decision Making Suprapubic catheter was replaced at bedside. Hazy yellow urine is returned. Urine culture has been sent. Patient is already on antibiotics and will follow up with his urologist. ED Disposition - Plan for ED Patient: Disposition: Home or Assisted Living Diagnosis: Encounter for Lane catheter replacement Instructions: Lane Catheter, Care Referrals: Deshawn Esteban MD [STAFF PHYSICIAN] -
[2019-04-08 14:15] VITALS: BP 146/72; PULSE 72; RESP 18; TEMP 36.2; O2SAT 98
--- NOTE | 2019-04-08 14:19 | ED.RN ---
SUPRAPUBIC CATH REPLACED BY DR NEREYDA MD
== END 2019-04-08 14:34 | disposition home or self-care (01) ==
PROVIDERS: Emergency Provider Emergency Medicine; Family Provider Family Medicine; PCP Family Medicine
DX: Z46.6 Encounter for fitting and adjustment of urinary device (principal); N39.0 Urinary tract infection, site not specified; Z87.891 Personal history of nicotine dependence
CPT/HCPCS: 87077; 87086; 87088; 87186; 99282

== ENCOUNTER → 2019-04-11 11:32 | Outpatient (CLI) | payer MEDICARE, SELFPAY ==
[2017-02-20 12:18] VITALS: BMI 46.4
[2019-04-11 11:12] VITALS: BMI 36.3
--- NOTE | 2019-04-11 11:33 | RAD_ITS ---
STUDY: X-RAY - RIGHT WRIST REASON FOR EXAM: Injury. TECHNIQUE: 3 view(s) of the wrist were obtained. COMPARISON: Radiographs 04/04/2019. FINDINGS: There is osteopenia. Normal visualized distal radius and ulna. Normal radiocarpal articulation. Normal distal radioulnar articulation. Normal carpal bones. Normal carpal articulations. Normal carpometacarpal articulation of the thumb. Normal second through fifth carpometacarpal articulations. Normal visualized metacarpal bones. The soft tissue structures are unremarkable. RAD/Wrist min 3 Views IMPRESSION: Osteopenia. No demonstrated fracture. Electronically Signed: Jesus Liao MD at 12:14 EST Tel , Service support ,
== END ==
PROVIDERS: Family Provider Family Medicine; PCP Family Medicine; Visit Provider Physician Assistant
DX: S69.91XA Unspecified injury of right wrist, hand and finger(s), initial encounter (principal)
CPT/HCPCS: 73110

== ENCOUNTER 2019-09-14 18:14 | Emergency (ER) | payer MEDICARE, MEDICAID, OTHER, SELFPAY ==
[2017-02-20 12:18] VITALS: BMI 46.4
[2019-04-11 11:12] VITALS: BMI 36.3
--- NOTE | 2019-09-14 18:19 | ED.VIS.GEN ---
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 He states when he gets a UTI he typically gets fevers and feels weak all over, he has had the symptoms today apparently. He denies any changes in the appearance of his urine or abdominal pain, nausea, vomiting, diarrhea. He denies any shortness of breath. Nurses said he was confused at the senior living but he is alert and oriented for paramedics and for me at this time. He has no complaints. - Past Medical History (1) Atherosclerosis of coronary artery bypass graft without angina pectoris Status: Chronic Comment: [facility] w/DNL-GAE-Bfiz LAD w/ 3.0 x 9 mm Resolute Stent (grafts occluded x 3) 02/20/17 (2) COPD (chronic obstructive pulmonary disease) Status: Chronic (3) CVA (cerebral vascular accident) Status: Chronic Comment: Residual right-sided hemiplegia (4) Essential (primary) hypertension Status: Chronic (5) Hyperlipidemia Status: Chronic (6) Intraventricular hemorrhage Status: Chronic (7) Ischemic cardiomyopathy Status: Resolved Past Medical History - Allergies and Home Meds Allergies/Adverse Reactions: Allergies atorvastatin Allergy (Verified 09/14/19 18:18) PT UNSURE OF REACTION cilostazol Allergy (Verified 04/08/19 13:06) Hives colestipol Allergy (Verified 04/08/19 13:06) Hives diltiazem Allergy (Verified 04/08/19 13:06) Hives gemfibrozil Allergy (Verified 04/08/19 13:06) Hives naproxen [From Naprosyn] Allergy (Verified 04/08/19 13:06) Hives niacin Allergy (Verified 09/14/19 18:18) PT UNSURE OF REACTION Nitrate Analogues Allergy (Verified 04/08/19 13:06) Hives Penicillins Allergy (Verified 04/08/19 13:06) Hives pravastatin Allergy (Verified 09/14/19 18:18) NEEDS FOLLOW-UP procainamide Allergy (Verified 04/08/19 13:06) Hives rosuvastatin Allergy (Verified 04/08/19 13:06) Hives simvastatin Allergy (Verified 04/08/19 13:06) Hives isosorbide Adverse Reaction (Severe, Verified 04/08/19 13:06) Unknown Primary Care Physician: Julissa Lamb MD [Primary Care Provider] - Surgical History: angioplasty, coronary bypass surgery - x 3., - - PEG tube with eventual removal, Diverting colostomy, suprapubic catheter. Lives: [facility] Smoking Status: Former smoker - Family History Maternal Family History: Family History (Last Reviewed 04/08/19 @ 12:[address] Prashanth Peña MD) Brother Heart disease Father Heart disease Family History: Reports: - - Alzheimer's dementia. Paternal Family History: Family History (Last Reviewed 04/08/19 @ 12:[address] Prashanth Peña MD) Brother Heart disease Father Heart disease Family History: Reports: Heart Disease Review of Systems General: Reports: Fever, Malaise, Subjective. Denies: Chills, Sweats Eyes: Denies: Visual changes - bilaterally, Diplopia ENT: Denies: Rhinorrhea, Sore throat Cardiovascular: Denies: Chest pain, Palpitations Respiratory: Denies: Dyspnea, Cough, Dyspnea on exertion Gastrointestinal: Denies: Abdominal pain, Nausea, Vomiting, Diarrhea, Melena, Hematochezia Genitourinary: Denies: Dysuria, Hematuria, Frequency Musculoskeletal: Denies: Neck pain, Back pain, Extremity Pain Skin: Denies: Rash, Wounds Neurological: Denies: Headache, Weakness, Numbness Physical Exam Inital Vital Signs reviewed: Yes General: Well nourished, Well developed, No Acute Distress Head: Normocephalic, Atraumatic Eyes: Perrl, EOMI ENT: Moist mucous membranes, No rhinorrhea Neck: Supple, Nontender, No lymphadenopathy, No JVD Cardiovascular: Regular rate, Regular rhythm, No murmurs Respiratory: No distress, CTA bilaterally, Chest nontender Abdomen: Soft, Nontender, Nondistended, Normal bowel sounds, - - Colostomy site benign, brown nonbloody stool, no tenderness around it or hernias. : - - Indwelling Lane catheter in place, yellow urine within it containing sediment. No gross hematuria. Back: Nontender, Normal Inspection Extremities: Nontender, No edema. Negative for: Calf Tenderness Skin: Normal color, No rash, No Trauma Neurological: Alert, Oriented x3 - Including month and year, Cranial nerves II-XII grossly intact, Normal Strength, Normal Sensation Psychological: Normal affect, Normal Mood Diagnostic/Tx/Re-eval Laboratory Results 09/14/19 09/14/19 09/14/19 19:05 19:05 19:05 WBC 10.0 RBC 4.13 L Hgb 11.6 L Hct 36.5 L MCV 88.4 MCH 28.1 MCHC 31.8 L RDW Std Deviation 45.4 H RDW Coeff of Sherin 14.0 Plt Count 179 MPV 11.6 Immature Gran % (Auto) 0.300 Neut % (Auto) 74.2 H Lymph % (Auto) 11.6 L [place] % (Auto) 13.5 H Eos % (Auto) 0.1 Baso % (Auto) 0.3 Absolute Neuts (auto) 7.4 Absolute Lymphs (auto) 1.16 Nucleated RBC % 0 Sodium 134 L Potassium 4.4 Chloride 103 Carbon Dioxide 27.0 Anion Gap 4 L BUN 28 H Creatinine 1.42 H Estim Creat Clear Calc 57.08 Est GFR (MDRD) Af Amer 64 Est GFR (MDRD) Non-Af 53 L BUN/Creatinine Ratio 19.7 Glucose 149 H Lactic Acid 1.0 Calcium 9.0 Urine Color Urine Clarity Urine pH Ur Specific [place] Urine Protein Urine Glucose (UA) Urine Ketones Urine Occult Blood Urine Nitrite Urine Bilirubin Urine Urobilinogen Ur Leukocyte Esterase Urine RBC Urine WBC Ur Squamous Epith Cells Amorphous Sediment Urine Bacteria Urine Mucus 09/14/19 19:15 WBC RBC Hgb Hct MCV MCH MCHC RDW Std Deviation RDW Coeff of Sherin Plt Count MPV Immature Gran % (Auto) Neut % (Auto) Lymph % (Auto) [place] % (Auto) Eos % (Auto) Baso % (Auto) Absolute Neuts (auto) Absolute Lymphs (auto) Nucleated RBC % Sodium Potassium Chloride Carbon Dioxide Anion Gap BUN Creatinine Estim Creat Clear Calc Est GFR (MDRD) Af Amer Est GFR (MDRD) Non-Af BUN/Creatinine Ratio Glucose Lactic Acid Calcium Urine Color Yellow Urine Clarity Cloudy Urine pH 5.0 Ur Specific [place] 1.010 Urine Protein 100 H Urine Glucose (UA) Normal Urine Ketones Negative Urine Occult Blood 250 H Urine Nitrite Positive H Urine Bilirubin Negative Urine Urobilinogen Normal Ur Leukocyte Esterase 500 H Urine RBC 50-100 SEEN Urine WBC >100 SEEN Ur Squamous Epith Cells 5-10 SEEN Amorphous Sediment 1+ URATE Urine Bacteria 3+ Urine Mucus 0 SEEN - Medical Decision Making Work-up as above consistent with urinary tract infection. He is not clinically septic and does not meet the criteria for sepsis. His lactate was within normal limits. There is no leukocytosis. No evidence of endorgan damage. Urine and blood cultures were sent, I see no reason to admit him to the hospital at this time, he clearly is not confused he is not dyspneic, his pulse ox is normal, and he feels relatively well. He is safe to be discharged back to senior living, he was initially given IV Rocephin here 1 g, and prescribed Bactrim. ED Disposition - Plan for ED Patient: Disposition: Home or Assisted Living Diagnosis: UTI (urinary tract infection) Instructions: ED CYSTITIS Male Adult Prescriptions: Sulfamethoxazole/Trimethoprim [Bactrim Ds Tablet] 1 ea PO BID #[id number] tab Prescription Printed Referrals: Julissa Lamb MD [Primary Care Provider] - 3-5 Days
[2019-09-14 18:21] VITALS: BP 120/60; PULSE 81; RESP 20; TEMP 37.3; O2SAT 94; BMI 36.5
[2019-09-14 18:26] VITALS: BP 120/60; PULSE 81; RESP 17; TEMP 37.3; O2SAT 94
[2019-09-14 18:38] VITALS: BP 134/64; PULSE 79; RESP 20; TEMP 37.3; O2SAT 93
[2019-09-14 19:31] LABS: Absolute Lymphocyte Count 1.16 X10^3/uL (0.83-4.51); Absolute Neutrophil Count 7.4 X10^3/uL (2.0-7.7); Basophil# 0.03 X10^3/uL; Basophil% 0.3 % (0-1); Eosinophil# 0.01 X10^3/uL; Eosinophils% 0.1 % (0-5); Hematocrit 36.5 % (40-54); Hemoglobin 11.6 g/dL (13.0-16.5); Lymphocyte # 1.16 X10^3/ul (4.0); Lymphocyte % 11.6 % (19-41); Mean Corp Hgb Conc 31.8 g/dL (32-36); Mean Corpuscular Hgb 28.1 pg (27.0-32.0); Mean Corpuscular Volume 88.4 fL (80-94); Mean Platelet Vol. 11.6 fl (6.2-12.0); Monocyte# 1.35 X10^3/uL; Monocyte% 13.5 % (0-10); NRBC Flagged by Analyzer 0 % (0-5); Neutrophil # 7.44 X10^3/uL (2.7-7.7); Neutrophil % 74.2 % (47-70); Platelet Count 179 K/mm3 (150-450); RBC Distribution Width SD 45.4 fl (35.1-43.9); Red Blood Count 4.13 M/mm3 (4.6-6.2)
[2019-09-14 19:32] LABS: Anion Gap 4 (5-15); BUN 28 mg/dL (7-18); BUN/Creat Ratio 19.7 RATIO (10-20); Chloride 103 mmol/L (98-107); Creatinine, Serum 1.42 mg/dL (0.70-1.30); EST Glomerular Filtration Rate 53 mL/min (>60); Est Glom Filt Rate - Afr Amer 64 mL/min (>60); Estimated Creatinine Clearance 57.08 ml/min; Glucose 149 mg/dL (74-106); Potassium 4.4 mmol/L (3.5-5.1); Sodium Level 134 mmol/L (136-145)
[2019-09-14 19:34] LABS: Mucous, Urine 0 SEEN /hpf (<or=2+)
[2019-09-14 19:42] LABS: Color, Urine Yellow (Yellow); Glucose, Dipstick Normal (Normal); Ketone-Dipstick Negative (Negative); Leukocyte Esterase-Dipstick 500 /ul (Negative); Nitrite-Dipstick Positive (Negative); Occult Blood-Urine 250 /ul (Negative); Protein-Dipstick 100 mg/dl (Negative); Urine Bilirubin Dipstick Negative (Negative); Urine Clarity Cloudy (Clear); Urine Urobilinogen Normal (Normal)
[2019-09-14 19:48] LABS: Bacteria 3+ /hpf (None Seen); Red Blood Cells-Urine 50-100 SEEN /hpf (0-5); Squamous Epithelial Cells - UA 5-10 SEEN /hpf (0-5); White Blood Cells >100 SEEN /hpf (0-5)
[2019-09-14 19:49] LABS: Amorphous Sediment 1+ URATE
[2019-09-14 20:46] VITALS: BP 138/80; PULSE 78; PULSE 79; RESP 16; RESP 18; TEMP 37.6; O2SAT 99
--- NOTE | 2019-09-14 20:49 | ED.RN ---
DAUGHTER CALLED TO ED. GIVEN UPDATE WITH PERMISSION FROM PATIENT. SHE HAS LEFT HER PHONE NUMBER TO BE UPDATED PRIOR TO ADMISSION/DISCHARGE. [phone]
[2019-09-14] MEDS: Ceftriaxone 1 GM/50 ML BAG IV (21:07)
[2019-09-14 22:11] VITALS: BP 155/114; PULSE 79; RESP 16; O2SAT 98
[2019-09-14 22:25] VITALS: BP 155/114; PULSE 79; RESP 16; O2SAT 98
== END 2019-09-14 22:29 | disposition home or self-care (01) ==
PROVIDERS: Emergency Provider Emergency Medicine; PCP Family Medicine
DX: N39.0 Urinary tract infection, site not specified (principal); I69.351 Hemiplegia and hemiparesis following cerebral infarction affecting right dominant side; J44.9 Chronic obstructive pulmonary disease, unspecified; I10 Essential (primary) hypertension; E78.5 Hyperlipidemia, unspecified; Z79.82 Long term (current) use of aspirin; Z79.4 Long term (current) use of insulin; Z79.899 Other long term (current) drug therapy; Z88.6 Allergy status to analgesic agent; Z88.0 Allergy status to penicillin; Z87.440 Personal history of urinary (tract) infections; Z87.891 Personal history of nicotine dependence; Z95.5 Presence of coronary angioplasty implant and graft
CPT/HCPCS: 80048; 81001; 83605; 85025; 87040; 87077; 87086; 87088; 87186; 96365; 96366; 99285; J7040

== ENCOUNTER → 2019-10-28 | Outpatient (CLI) | payer MEDICARE, SELFPAY ==
[2017-02-20 12:18] VITALS: BMI 46.4
== END | disposition home or self-care (01) ==
PROVIDERS: PCP Family Medicine; Visit Provider Nurse Practitioner Adult Health
DX: Z03.818 Encounter for observation for suspected exposure to other biological agents ruled out (principal); J98.8 Other specified respiratory disorders
CPT/HCPCS: 87635; U0004

== ENCOUNTER → 2020-01-02 | Outpatient (CLI) | payer MEDICARE, MEDICAID, SELFPAY ==
[2017-02-20 12:18] VITALS: BMI 46.4
== END | disposition home or self-care (01) ==
LOC: LABSPEC 13:50
PROVIDERS: PCP Family Medicine; Visit Provider Nurse Practitioner Adult Health
DX: Z03.818 Encounter for observation for suspected exposure to other biological agents ruled out (principal); J98.8 Other specified respiratory disorders
CPT/HCPCS: 87635; U0003

== ENCOUNTER 2020-01-09 10:40 | Day surgery (SDC) | payer MEDICARE, MEDICAID, SELFPAY ==
[2017-02-20 12:18] VITALS: BMI 46.4
[2020-01-09] VITALS (7 sets, daily range): BP systolic 139–159; BP diastolic 70–81; PULSE 68–70; RESP 16–20; TEMP 36.7–37.2; O2SAT 98–100; BMI 36.8
--- NOTE | 2020-01-09 11:00 | RAD_ITS ---
PROCEDURE: Caudal block. DATE OF EXAMINATION: 01/09/2020. INDICATION: Male, 69 years old. Chronic low back pain. FLUOROSCOPY TIME (if supplied): (28.8 seconds) minutes/seconds. A single image was obtained. Intraoperative imaging provided for caudal block. RAD/Fluor Guidance for Spine Inj IMPRESSION: Intraoperative imaging provided for caudal block. Electronically Signed: Bakari Briggs, at 13:55 EDT , Service support ,
[2020-01-09] MEDS: Lactated Ringers 1,000 ML 100 ML IV (11:43)
[2020-01-09 11:55] LABS: Bedside Glucose 164 mg/dL (70-110)
[2020-01-09] MEDS: 0.9% Normal Saline (Pres. free 10 ML Vial (12:23)
[2020-01-09] MEDS: MethylPREDNISolone Acetate 80 MG/ML Vial (12:23)
[2020-01-09] MEDS: Bupivacaine 0.25% 30 ML Vial (12:23)
--- NOTE | 2020-01-09 13:54 | SUR.PHASEII ---
report called to nurse at [facility]
--- NOTE | 2020-01-09 15:23 | PCM.OPRPT ---
Report of Operation Date of Procedure: 01/09/20 Description of Surgical Findings:: PREOPERATIVE DIAGNOSIS: Lumbosacral radiculopathy, lumbosacral degenerative disc disease, lumbosacral spinal stenosis POSTOPERATIVE DIAGNOSIS: Lumbosacral radiculopathy, lumbosacral degenerative disc disease, lumbosacral spinal stenosis PROCEDURE PERFORMED: Caudal epidural steroid injection. ANESTHESIA: MAC. BLOOD LOSS: Minimal. COMPLICATIONS: None. DESCRIPTION OF PROCEDURE: History and physical of today was reviewed. Risks and benefits of the procedure were explained. The patient understood and agreed to proceed. Informed consent was obtained. IV inserted per routine protocol. The patient was taken to the operating room and placed in the prone position with a pillow positioned underneath the abdomen. The lower back and tailbone area was prepped and draped in a sterile fashion using iodine x3. Under fluoroscopy guidance on a lateral view, the caudal space was identified. The skin and subcutaneous tissue was anesthetized with approximately 3 mL of 1% lidocaine using a 25-gauge regular needle. Under direct visualization with fluoroscopy, using a 22-gauge 3-1/2-inch spinal needle, the needle was advanced via the skin through the sacral hiatus. The tip of the needle was passed through the sacrococcygeal ligament and advanced to approximately S4 area. After negative aspiration of blood or CSF, a total of 3 mL of contrast was injected to confirm correct placement of the needle as well as cephalad spread. The spread was followed to approximately L5 area. After confirmation on AP as well as lateral view and repeated negative aspiration, a total of 15 mL of preservative-free 0.125% Marcaine with 80 mg of Depo-Medrol was injected easily. The needle was then removed intact. The patient experienced no sign or symptoms of intrathecal or intravascular injection. The patient experienced no paresthesia. The procedure was completed without any apparent difficulty or any complications. The patient appeared to tolerate it well. ASSESSMENT AND PLAN: This is a 69-year-old male with lumbosacral radiculopathy, lumbosacral disc disease, lumbosacral spinal stenosis status post caudal epidural steroid injection patient will continue his current medications patient will follow in approximately 2 weeks for reevaluation.
== END 2020-01-09 13:49 | disposition skilled nursing facility (03) ==
LOC: SDC 10:40 → AC 10:42
PROVIDERS: PCP Family Medicine; Referring Provider Anesthesiology Pain Medicine; Visit Provider Anesthesiology Pain Medicine
PROC: 3E0S3BZ Introduction of Anesthetic Agent into Epidural Space, Percutaneous Approach (ICD-10-PCS; CPT 62282; principal; 2020-01-09 10:55)
DX: M51.17 Intervertebral disc disorders with radiculopathy, lumbosacral region (principal); M48.07 Spinal stenosis, lumbosacral region; M47.27 Other spondylosis with radiculopathy, lumbosacral region; M96.1 Postlaminectomy syndrome, not elsewhere classified; G89.29 Other chronic pain; I69.398 Other sequelae of cerebral infarction; E11.9 Type 2 diabetes mellitus without complications; I10 Essential (primary) hypertension; J44.9 Chronic obstructive pulmonary disease, unspecified; E78.5 Hyperlipidemia, unspecified; R13.10 Dysphagia, unspecified; N40.0 Benign prostatic hyperplasia without lower urinary tract symptoms; J45.909 Unspecified asthma, uncomplicated; G47.33 Obstructive sleep apnea (adult) (pediatric); F32.9 Major depressive disorder, single episode, unspecified; F41.9 Anxiety disorder, unspecified; Z79.891 Long term (current) use of opiate analgesic; Z79.82 Long term (current) use of aspirin; Z79.4 Long term (current) use of insulin; Z79.899 Other long term (current) drug therapy; I25.2 Old myocardial infarction; Z86.73 Personal history of transient ischemic attack (TIA), and cerebral infarction without residual deficits; Z87.891 Personal history of nicotine dependence; Z95.1 Presence of aortocoronary bypass graft; Z95.5 Presence of coronary angioplasty implant and graft
CPT/HCPCS: 01992; 62323; 64483; 77003; 82962; J7120; J3490

== ENCOUNTER 2020-09-14 01:21 | Inpatient (IN) | payer MEDICARE, MEDICAID, SELFPAY ==
[2017-02-20 12:18] VITALS: BMI 46.4
[2020-09-14] VITALS (27 sets, daily range): BP systolic 96–159; BP diastolic 59–98; PULSE 67–130; RESP 12–53; TEMP 36.1–37.4; O2SAT 35–100; BMI 36.5; BMI 49.3; BMI 40.8; BMI 40.9
--- NOTE | 2020-09-14 01:23 | RAD_ITS ---
STUDY: X-RAY CHEST REASON FOR EXAM: Male, 70 years old. Bilateral rales, respiratory failure TECHNIQUE: Single AP portable view of the chest. COMPARISON: 02/21/2019. FINDINGS: The lungs are normally expanded with fullness of the interstitial markings and few NAHUM B-lines suggestive of early congestive heart failure. There is no demonstrated pleural abnormality. Mild cardiomegaly with midline sternotomy wires. Normal mediastinum and ita. Normal visualized aortic arch and descending thoracic aorta. There is demineralization of the osseous structures. There is degenerative osteoarthritis of the bilateral shoulders. There is no demonstrated abnormality of the visualized soft tissue structures of the upper abdomen. RAD/Chest 1 View (Portable) IMPRESSION: Possible early congestive heart failure. Clinical correlation recommended. Electronically Signed: Aditi Vickers MD at 2:41 EDT , Service support ,
--- NOTE | 2020-09-14 01:24 | EKG12_ITS ---
Test Reason : SOB Blood Pressure : / mmHG Vent. Rate : 100 BPM Atrial Rate : 100 BPM P-R Int : 168 ms QRS Dur : 110 ms QT Int : 370 ms P-R-T Axes : 052 064 180 degrees QTc Int : 477 ms Poor data quality, interpretation may be adversely affected Sinus rhythm with occasional Premature ventricular complexes Nonspecific ST and T wave abnormality Prolonged QT Abnormal ECG Confirmed by SHERYL MATTA, ALVARO ([id number]), movie editor CJ DURÁN ([id number]) on 09/17/2020 2:18:11 PM Referred By: FAISAL Confirmed By:ALVARO SAUCEDO MD
[2020-09-14 01:41] LABS: Absolute Lymphocyte Count 3.91 X10^3/uL (0.83-4.51); Absolute Neutrophil Count 10.6 X10^3/uL (2.0-7.7); Basophil% 0.6 % (0-1); Eosinophil# 0.31 X10^3/uL; Eosinophils% 1.9 % (0-5); Hematocrit 44.2 % (40-54); Hemoglobin 13.7 g/dL (13.0-16.5); Lymphocyte # 3.91 X10^3/ul (4.0); Lymphocyte % 24.4 % (19-41); Mean Corpuscular Hgb 28.5 pg (27.0-32.0); Mean Corpuscular Volume 91.9 fL (80-94); Mean Platelet Vol. 11.8 fl (6.2-12.0); Monocyte# 1.03 X10^3/uL; Monocyte% 6.4 % (0-10); NRBC Flagged by Analyzer 0 % (0-5); Neutrophil # 10.58 X10^3/uL (2.7-7.7); Neutrophil % 66.1 % (47-70); Platelet Count 272 K/mm3 (150-450); RBC Distribution Width CV 14.6 % (11.6-14.6); RBC Distribution Width SD 48.9 fl (35.1-43.9); Red Blood Count 4.81 M/mm3 (4.6-6.2)
[2020-09-14] MEDS: Furosemide 100 MG/10 ML Vial 60 MG IV (01:41)
[2020-09-14] MEDS: Nitroglycerin Infusion 250 ML 6 MG CONT INF (01:42)
--- NOTE | 2020-09-14 01:45 | ED.VIS.GEN ---
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 He is breathing 55-60 Narrative: She is an elderly male with state DNR Comfort Care arrest paperwork. After initiation of treatment patient was able to speak. He is a no CPR. If his breathing gets worse and it is reversible he wishes to be intubated. Patient arrived Rester distress. Initially not able to give history. This occurred abruptly. After initiation of treatment patient is able to talk. He is alert he is oriented and has capacity to make a medical decision. He denies chest pain. His main complaint is shortness of breath. He does acknowledge history of congestive heart failure. He is status post suprapubic cath and colostomy. Will review prior records. Prior similar symptoms: Yes Recent Illness/Hospitalization: No - Past Medical History (1) Atherosclerosis of coronary artery bypass graft without angina pectoris Status: Chronic Comment: (2) COPD (chronic obstructive pulmonary disease) Status: Chronic (3) CVA (cerebral vascular accident) Status: Chronic Comment: Residual right-sided hemiplegia (4) Chronic diastolic (congestive) heart failure Status: Chronic (5) Essential (primary) hypertension Status: Chronic (6) Hyperlipidemia Status: Chronic Past Medical History - Allergies and Home Meds Allergies/Adverse Reactions: Allergies atorvastatin Allergy (Verified 09/14/20 02:15) PT UNSURE OF REACTION cilostazol Allergy (Verified 09/14/20 02:15) Hives colestipol Allergy (Verified 09/14/20 02:15) Hives diltiazem Allergy (Verified 09/14/20 02:15) Hives gemfibrozil Allergy (Verified 09/14/20 02:15) Hives naproxen [From Naprosyn] Allergy (Verified 09/14/20 02:15) Hives niacin Allergy (Verified 09/14/20 02:15) PT UNSURE OF REACTION Nitrate Analogues Allergy (Verified 09/14/20 02:15) Hives Penicillins Allergy (Verified 09/14/20 02:15) Hives pravastatin Allergy (Verified 09/14/20 02:15) NEEDS FOLLOW-UP procainamide Allergy (Verified 09/14/20 02:15) Hives rosuvastatin Allergy (Verified 09/14/20 02:15) Hives simvastatin Allergy (Verified 09/14/20 02:15) Hives isosorbide Adverse Reaction (Severe, Verified 09/14/20 02:15) Unknown Primary Care Physician: Julissa Lamb MD [Primary Care Provider] - Prior records reviewed: Yes Surgical History: angioplasty, coronary bypass surgery - x 3., - - PEG tube with eventual removal, Diverting colostomy, suprapubic catheter. Lives: [facility] Smoking Status: Current every day smoker Alcohol: None Drugs: None - Family History Maternal Family History: Family History (Last Reviewed 07/31/20 @ 14:22 by Michelle Edwards) Brother Heart disease Father Heart disease Family History: Reports: - Paternal Family History: Family History (Last Reviewed 07/31/20 @ 14:22 by Michelle Edwards) Brother Heart disease Father Heart disease Family History: Reports: Heart Disease Review of Systems ROS: Unable to Obtain - Initially. General: Reports: Sweats. Denies: Chills, Fever Cardiovascular: Reports: Palpitations. Denies: Chest pain Respiratory: Reports: Dyspnea, Cough, Paroxysmal nocturnal dyspnea Gastrointestinal: Denies: Abdominal pain, Nausea, Vomiting Genitourinary: Reports: - - Catheter noted Musculoskeletal: Reports: Swelling. Denies: Myalgias, Arthralgias Skin: Denies: Rash, Wounds Neurological: Denies: Headache Psych: Denies: Depression Hematologic: Denies: Easy bruising, Easy bleeding Allergy: Denies: Uticaria, Swelling of the mouth Physical Exam Vital Signs/Narrative: Vital Signs Temp Pulse Resp BP Pulse Ox 09/14/20 01:31 99 09/14/20 01:26 99.4 F H 130 H 38 H 159/98 H 99 09/14/20 01:22 99.4 F H 130 H 38 H 159/98 H 99 Inital Vital Signs reviewed: Yes General: Well nourished, Well developed, Obese, No Acute Distress Head: Normocephalic, Atraumatic Eyes: Perrl, EOMI. Negative for: Pale conjunctiva ENT: Moist mucous membranes, No rhinorrhea Neck: Supple, Nontender, No lymphadenopathy, - - Trachea is midline. Unable treatment he has JVD based on body habitus. Cardiovascular: Regular rhythm, No murmurs, Normal S1, Normal S2, Tachycardia Respiratory: Rales, Decreased Air Movement, Retractions Abdomen: Soft, Nontender, Nondistended, Normal bowel sounds. Negative for: Mass, Pulsatile mass Rectal: Deferred Back: Nontender, Normal Inspection Extremities: Nontender, Edema - 2 mm pitting Skin: No rash, Diaphoresis, Pallor. Negative for: Cyanosis, Jaundice Neurological: Alert, Oriented x3, Cranial nerves II-XII grossly intact, Normal Strength, Normal Sensation Psychological: Normal affect Diagnostic/Tx/Re-eval Chest X-Ray - ED: 1 View, Read by ED Physician, Heart, Bony Structures, CHF 09/14/20 01:23 Chest 1 View (Portable) [RAD] Stat Laboratory Results 09/14/20 09/14/20 09/14/20 01:35 01:35 01:35 WBC 16.0 H RBC 4.81 Hgb 13.7 Hct 44.2 MCV 91.9 MCH 28.5 MCHC 31.0 L RDW Std Deviation 48.9 H RDW Coeff of Sherin 14.6 Plt Count 272 MPV 11.8 Immature Gran % (Auto) 0.600 Neut % (Auto) 66.1 Lymph % (Auto) 24.4 [place] % (Auto) 6.4 Eos % (Auto) 1.9 Baso % (Auto) 0.6 Absolute Neuts (auto) 10.6 H Absolute Lymphs (auto) 3.91 Nucleated RBC % 0 PT 12.7 INR 1.0 APTT 27.0 Specimen Type Sample Site pH Bicarbonate Actual Total CO2 Base Excess O2 Saturation O2 % ABG pCO2 ABG pO2 Dejon Test Respiration Rate O2 Delivery Device EPAP IPAP Blood Gas Notified Whom Blood Gas Notified Time Clinical Comments Sodium 134 L Potassium 3.8 Chloride 103 Carbon Dioxide 25.0 Anion Gap 6 BUN 18 Creatinine 1.21 Estim Creat Clear Calc 54.96 Est GFR (MDRD) Af Amer 76 Est GFR (MDRD) Non-Af 63 BUN/Creatinine Ratio 14.9 Glucose 330 H Calcium 8.5 Total Bilirubin 0.50 AST 92 H ALT 81 H Alkaline Phosphatase 148 H Troponin I < 0.015 B-Natriuretic Peptide Total Protein 7.9 Albumin 3.5 Globulin 4.4 H Albumin/Globulin Ratio 0.8 L 09/14/20 09/14/20 01:35 01:52 WBC RBC Hgb Hct MCV MCH MCHC RDW Std Deviation RDW Coeff of Sherin Plt Count MPV Immature Gran % (Auto) Neut % (Auto) Lymph % (Auto) [place] % (Auto) Eos % (Auto) Baso % (Auto) Absolute Neuts (auto) Absolute Lymphs (auto) Nucleated RBC % PT INR APTT Specimen Type ART Sample Site R Radial pH 7.37 Bicarbonate Actual 24.9 Total CO2 26 Base Excess 0 O2 Saturation 97 O2 % 40 ABG pCO2 42.9 ABG pO2 92 Dejon Test Positive Respiration Rate 12 O2 Delivery Device BiPAP EPAP 10 IPAP 22 Blood Gas Notified Whom ED Blood Gas Notified Time 0152 Clinical Comments BIPAP 22^ Sodium Potassium Chloride Carbon Dioxide Anion Gap BUN Creatinine Estim Creat Clear Calc Est GFR (MDRD) Af Amer Est GFR (MDRD) Non-Af BUN/Creatinine Ratio Glucose Calcium Total Bilirubin AST ALT Alkaline Phosphatase Troponin I B-Natriuretic Peptide 283.6 H Total Protein Albumin Globulin Albumin/Globulin Ratio Troponin is normal. BNP is elevated. White count is elevated which probably is due to stress. - Rhythm Strip Rhythm Strip: Sinus Tach Rate: 104 Ectopy: PVC(s) - EKG Initial EKG Interpretation: Sinus Rhythm - Regular rate 100. OK interval 160 ms. QS duration 110 ms. QT duration 270 ms. Sultana is normal. The QTc is 477 which is prolonged. There is nodular changes with PVCs. There is significant artifact. There was a delay in obtain EKG because of his respiratory distress and poor quality to the trac - Medical Decision Making Presents with PND. With history of coronary disease multiple risk factors and history of CHF he was treated for acute pulmonary edema since he has bilateral rales. He was placed on BiPAP. Nitroglycerin drip for preload reduction. Lasix since clinically he is fluid overloaded. Appropriate blood work to rule out anemia, renal injury, electrolyte abnormality and ME. Patient will require admission to the intensive care unit. DNR CODE STATUS was ordered. Since patient had acute decompensation of his chronic congestive heart failure need to rule out cardiac ischemia. 1 would expect his first troponin to be normal symptoms occurred abruptly prior to arrival. Chest x-ray is consistent with CHF. He is improving with treatment. Will contact hospitalist for admission. - Critical Care Time Critical care time (excluding procedures): 30-74 minutes - Time 37 minutes which included obtaining history, physical exam, documentation, review of prior records, discussion regarding CODE STATUS, initiation of treatment for acute pulmonary edema., Discussing w/Patient &/or Family/Bisque Placer, Discussing w/Consultants, Arranging Admission or Transfer ED Disposition - Plan for ED Patient: Disposition: Acute Care 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
[2020-09-14 01:57] LABS: Prothrombin Time (Protime)PT. 12.7 SECONDS (11.7-14.9)
[2020-09-14 02:01] LABS: Allen Test Positive; Base Excess 0 mmol/L (-2 to +2); Bicarbonate 24.9 mmol/L (22-26); Blood Gas Specimen Type ART; FI02 40; O2 Delivery Device BiPAP; PO2 92 mmHG (75-100); SITE R Radial; SO2 97 % (95-99); Total Carbon Dioxide 26 mmol/L; pCO2 42.9 mmHg (35-45); pH 7.37 (7.35-7.45)
[2020-09-14 02:07] LABS: ALB/GLOB Ratio 0.8 RATIO (0.9-2.4); AST(SGOT) 92 U/L (15-37); Alanine Aminotransfer ALT/SGPT 81 U/L (16-61); Albumin, Serum 3.5 g/dL (3.2-5.0); Alkaline Phosphatase 148 U/L (45-117); Anion Gap 6 (5-15); BUN 18 mg/dL (7-18); BUN/Creat Ratio 14.9 RATIO (10-20); Calcium,Total 8.5 mg/dL (8.5-10.1); Chloride 103 mmol/L (98-107); Creatinine, Serum 1.21 mg/dL (0.70-1.30); EST Glomerular Filtration Rate 63 mL/min (>60); Est Glom Filt Rate - Afr Amer 76 mL/min (>60); Estimated Creatinine Clearance 54.96 ml/min; Globulin 4.4 g/dL (2.2-4.2); Glucose 330 mg/dL (74-106); Potassium 3.8 mmol/L (3.5-5.1); Protein, Total 7.9 g/dL (6.4-8.2); Sodium Level 134 mmol/L (136-145)
[2020-09-14 02:08] LABS: BNP,B-Type NATRIURETIC PEPTIDE 283.6 pg/mL (0-100)
[2020-09-14 02:10] LABS: RR 12
[2020-09-14 02:11] LABS: EPAP 10; IPAP 22
--- NOTE | 2020-09-14 02:38 | ED.RN ---
[facility] nurse, Raven, updated regarding pt. Lary and also notified re: admission
--- NOTE | 2020-09-14 02:44 | HP.PCM_ITS ---
History of Present Illness Date of Admission: 09/14/20 Chief Complaint: Shortness of breath The patient is a 70 year old M with a PMH as below who presents to the hospital shortness of breath. He was difficult to get a history from secondary to his somnolence from his hypoxia. He was awakened from sleep with shortness of breath. He states that he is supposed be wearing CPAP but he does not wear it consistently only when he feels like he needs it. He was able to tell the ED physician that he is a DNR CCA with intubation and states he is feeling better now that he has been given some Lasix and placed on BiPAP. He had an echo back in 2019 with an EF of 55% and stage I diastolic dysfunction which was an improvement from his echo in 2017 with an EF of 45%. He denies any symptoms of illness though his white count is 16 he is afebrile. He does have a chronic suprapubic catheter in place and he is status post diverting colostomy for a previous stage IV decubitus ulcer. Past Medical History Past Medical History (Chronic Problems): Chronic Problems (Last Reviewed 07/31/20 @ 14:22 by Michelle Edwards) Atherosclerosis of coronary artery bypass graft without angina pectoris (Chronic) Chronic diastolic (congestive) heart failure (Chronic) Essential (primary) hypertension (Chronic) Hyperlipidemia (Chronic) CVA (cerebral vascular accident) (Chronic) Residual right-sided hemiplegia COPD (chronic obstructive pulmonary disease) (Chronic) Medical History: Medical History (Last Reviewed 07/31/20 @ 14:22 by Michelle Edwards) Atherosclerosis of coronary artery bypass graft without angina pectoris ([employer] mate[employer]) I25.810 History of non-ST elevation myocardial infarction (NSTEMI) (Resolved) Onset Date: 02/21/19 I25.2 02/16/2017, 02/21/2019 Chronic diastolic (congestive) heart failure (Chronic) I50.32 Essential (primary) hypertension (Chronic) I10 Hyperlipidemia (Chronic) E78.5 CVA (cerebral vascular accident) (Chronic) I63.9 Residual right-sided hemiplegia COPD (chronic obstructive pulmonary disease) (Chronic) J44.9 Alcohol abuse F10.10 Anemia D64.9 COPD with acute exacerbation J44.1 Dysphagia R13.10 GERD (gastroesophageal reflux disease) K21.9 Intraparenchymal hemorrhage of brain I61.9 Intraventricular hemorrhage I61.5 Morbid obesity E66.01 Nicotine dependence F17.200 Osteomyelitis of sacrum M46.28 RLS (restless legs syndrome) G25.81 Recurrent UTI (urinary tract infection) N39.0 Restless leg syndrome G25.81 Right hemiplegia G81.91 Subarachnoid hemorrhage I60.9 Subdural hematoma S06.5X9A Tobacco abuse Z72.0 Traumatic brain injury S06.9X9A Type 2 diabetes mellitus E11.9 Acute on chronic systolic (congestive) heart failure I50.23 Acute respiratory failure with hypoxia and hypercapnia J96.01, J96.02 Ischemic cardiomyopathy I25.5 Demand ischemia (Inactive) I24.8 Diabetes mellitus type 2 in obese (Inactive) E11.69, E66.9 Encounter for long-term current use of high risk medication (Inactive) Z79.899 FUO (fever of unknown origin) (Inactive) Former smoker (Inactive) Z87.891 quit February 2017 Hypertensive emergency (Inactive) I16.1 Allergies atorvastatin Allergy (Verified 09/14/20 02:15) PT UNSURE OF REACTION cilostazol Allergy (Verified 09/14/20 02:15) Hives colestipol Allergy (Verified 09/14/20 02:15) Hives diltiazem Allergy (Verified 09/14/20 02:15) Hives gemfibrozil Allergy (Verified 09/14/20 02:15) Hives naproxen [From Naprosyn] Allergy (Verified 09/14/20 02:15) Hives niacin Allergy (Verified 09/14/20 02:15) PT UNSURE OF REACTION Nitrate Analogues Allergy (Verified 09/14/20 02:15) Hives Penicillins Allergy (Verified 09/14/20 02:15) Hives pravastatin Allergy (Verified 09/14/20 02:15) NEEDS FOLLOW-UP procainamide Allergy (Verified 09/14/20 02:15) Hives rosuvastatin Allergy (Verified 09/14/20 02:15) Hives simvastatin Allergy (Verified 09/14/20 02:15) Hives isosorbide Adverse Reaction (Severe, Verified 09/14/20 02:15) Unknown Home Medications: Ambulatory Orders Medication Instructions Recorded Amantadine [Symmetrel] 100 mg PO DAILY 04/17/18 Metoprolol Tartrate [Lopressor 100 mg PO TID 04/17/18 (beta stepan)] Pantoprazole Sodium [Protonix] 40 mg PO DAILY 04/17/18 Pramipexole Di-HCl [Mirapex] 0.25 mg PO QHS 04/17/18 Pravastatin Sodium 80 mg PO QHS 04/17/18 Tamsulosin HCl [Flomax] 0.4 mg PO DAILY 04/17/18 furosemide 40 mg tablet 40 mg PO BID tab 06/17/18 potassium chloride 20 mEq 20 meq PO DAILY 90 Days #90 tab 06/17/18 tablet,extended release(part/cryst) Fluoxetine [Prozac] 40 mg PO DAILY 02/20/19 Nitroglycerin 0.4 mg SL PRN PRN 02/20/19 Aspirin [Aspirin, Baby] 81 mg PO DAILY@0800 02/24/19 Acetaminophen [Tylenol] 1,000 mg PO Q6H PRN PRN tab 03/03/19 Menthol/Lanolin/Calamine/Znox 1 applic TOPICAL 0600,2200 tube 03/03/19 [Calmoseptine Ointment] Bisacodyl 10 mg RC PRN PRN 09/14/19 Ergocalciferol (Vitamin D2) 1,250 mcg PO DAILY 09/14/19 [Vitamin D2] Insulin Aspart [Novolog Flexpen 0 - 11 units SC DAILY 09/14/19 ([facility])] Insulin Aspart [Novolog Flexpen 12 units SC TIDCM 09/14/19 ([facility])] Magnesium Oxide [Mgo] 400 mg PO TID 09/14/19 Oxycodone [Oxyir] 5 mg PO Q6H PRN PRN 09/14/19 Budesonide [Pulmicort] 0.5 mg IH DAILY 01/02/20 Sennosides/Docusate Sodium 2 ea PO DAILY 01/02/20 [Senna-S Laxative Tablet] Insulin Glargine [Lantus SoloStar 12 units SC BID 09/14/20 Pen] Melatonin 3 mg PO DAILY 09/14/20 Surgical History: Surgical History (Last Reviewed 07/31/20 @ 14:22 by Michelle Edwards) History of coronary artery stent placement (Resolved) Onset Date: 02/20/17 Z95.5 QMB-MBF-Uktr LAD w/ 3.0 x 9 mm Resolute Stent 02/20/17 H/O coronary artery bypass surgery (Resolved) Onset Date: 2001 Z95.1 CABG x 3 Radial Artery-LAD, SVG-RCA, SVG-OM2 Chronic suprapubic catheter Z93.59 PEG (percutaneous endoscopic gastrostomy) adjustment/replacement/removal Z43.1 Status post osteotomy Onset Date: 01/2018 Z98.890 Surgical History: angioplasty, coronary bypass surgery - x 3., - - PEG tube with eventual removal, Diverting colostomy, suprapubic catheter. 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 Smoking Status: Current every day smoker Alcohol: None Drugs: None - *Family History Maternal Family History: Family History (Last Reviewed 07/31/20 @ 14:22 by Michelle Edwards) Brother Heart disease Father Heart disease History Items: - Paternal Family History: Family History (Last Reviewed 07/31/20 @ 14:22 by Michelle Edwards) Brother Heart disease Father Heart disease History Items: Heart Disease Review of Systems Constitutional: Denies: Chills, Fever, Weight Change HEENT: Denies: Head Aches, Sinus Congestion, Sinus Drainage Cardiovascular: Denies: Chest Pain, Palpitations Respiratory: Reports: Shortness of Breath. Denies: Cough, Shortness of breath at rest, Sputum production Gastrointestinal: Denies: Abdominal Pain, Nausea, Vomiting Genitourinary: Denies: Dysuria Musculoskeletal: Denies: Joint Pain, Joint Tenderness Skin: Denies: Rash, Wounds Neurological: Denies: Numbness, Tingling, Focal weakness Psychiatric: Denies: Anxiety, Depression Hematologic/ Lymphatic: Denies: Easy Bruising, Easy Bleeding VTE Information - Inpt Only VTE Present on Admission: No Patient Problems: Active and Suspected Problems (Last Reviewed 07/31/20 @ 14:22 by Michelle Edwards) Acute respiratory failure with hypoxia (Acute) Acute pulmonary edema (Acute) History of coronary artery disease (Acute) Hyperglycemia (Acute) Sinus tachycardia seen on cardiac nurse (Acute) - Physical Exam Vitals/I&O's: Vital Signs Temp Pulse Resp BP Pulse Ox 98.9 F 96 26 H 107/59 L 94 09/14/20 02:26 09/14/20 02:26 09/14/20 02:26 09/14/20 02:33 09/14/20 02:26 Oxygen Flow Rate (L/min) 40 Oxygen Delivery Method Bi-pap Weight: 324 lb 8.327 oz Body Mass Index (BMI) 49.3 Finger Stick Blood Glucose 250 Intake and Output for Last 24 Hours 09/12/20 09/13/20 09/14/20 23:59 23:59 23:59 Intake Total 6.4 / 6.4 Balance 6.4 / 6.4 General: Cooperative, No apparent distress, Lethargic HEENT: Atraumatic, PERRLA, EOMI, Normocephalic Oral: Moist Mucosa Neck: Supple, No JVD Lungs: Clear to auscultation, Normal air movement, No rhonchi, No wheeze, No rales, Diminished Cardiovascular: Regular rate, Regular Rhythm, Normal S1, Normal S2, No murmurs Abdomen: Soft, Non Tender, Non-Distended, No Hepato-splenomegaly Extremities: No edema, Capillary Refill Less than 3 Seconds Skin: No rashes, No breakdown Neurological: Neuro grossly intact, Sensory exam intact to light touch and pain Psych/Mental Status: Flat Affect Laboratory Results 09/14/20 01:35: WBC 16.0 H, RBC 4.81, Hgb 13.7, Hct 44.2, MCV 91.9, MCH 28.5, MCHC 31.0 L, RDW Std Deviation 48.9 H, RDW Coeff of Sherin 14.6, Plt Count 272, MPV 11.8, Immature Gran % (Auto) 0.600, Neut % (Auto) 66.1, Lymph % (Auto) 24.4, Mathews % (Auto) 6.4, Eos % (Auto) 1.9, Baso % (Auto) 0.6, Absolute Neuts (auto) 10.6 H, Absolute Lymphs (auto) 3.91, Nucleated RBC % 0 09/14/20 01:35: PT 12.7, INR 1.0, APTT 27.0 09/14/20 01:35: Sodium 134 L, Potassium 3.8, Chloride 103, Carbon Dioxide 25.0, Anion Gap 6, BUN 18, Creatinine 1.21, Estim Creat Clear Calc 54.96, Est GFR (MDRD) Af Amer 76, Est GFR (MDRD) Non-Af 63, BUN/Creatinine Ratio 14.9, Glucose 330 H, Calcium 8.5, Total Bilirubin 0.50, AST 92 H, ALT 81 H, Alkaline Phosphatase 148 H, Troponin I < 0.015, Total Protein 7.9, Albumin 3.5, Globulin 4.4 H, Albumin/Globulin Ratio 0.8 L 09/14/20 01:35: B-Natriuretic Peptide 283.6 H 09/14/20 01:52: Specimen Type ART, Sample Site R Radial, pH 7.37, Bicarbonate Actual 24.9, Total CO2 26, Base Excess 0, O2 Saturation 97, O2 % 40, ABG pCO2 42.9, ABG pO2 92, Dejon Test Positive, Respiration Rate 12, O2 Delivery Device BiPAP, EPAP 10, IPAP 22, Blood Gas Notified Whom ED MD, Blood Gas Notified Time 0152, Clinical Comments BIPAP 22^ Current Medications Nitroglycerin/Dextrose () 250 mls @ 6 mls/hr CONT INF .[id number] [facility]; Protocol Last Titration: 09/14/20 02:26 Dose: 10 mcg/min, 6 mls/hr Documented by: Assessment/Plan All Active Problems (Last Reviewed 07/31/20 @ 14:22 by Michelle Edwards) Acute respiratory failure with hypoxia (Acute) Acute pulmonary edema (Acute) History of coronary artery disease (Acute) Hyperglycemia (Acute) Sinus tachycardia seen on cardiac nurse (Acute) History of coronary artery stent placement (Resolved 02/20/17) H/O coronary artery bypass surgery (Resolved 2001) History of non-ST elevation myocardial infarction (NSTEMI) (Resolved 02/21/19) Abnormal cardiac enzyme level (Resolved) Acute respiratory failure with hypoxia and hypercarbia (Resolved) Alcohol intoxication (Resolved) Bacteremia due to Escherichia coli (Resolved) COPD exacerbation (Resolved) Complicated CAUTI (Resolved) Healthcare associated bacteremia due to Staphylococcus aureus (Resolved) Infected decubitus ulcer (Resolved) Infected decubitus ulcer (Resolved) Multifocal community-acquired pneumonia (Resolved) Pneumonia (Resolved) Right scapula fracture (Resolved) Sepsis (Resolved) Severe sepsis (Resolved) Severe sepsis (Resolved) 1. Acute hypoxic respiratory failure secondary to acute on chronic diastolic CHF/probable pulmonary edema/CAD status post CABG and stents/HTN/HLD/JIM -Continue with BiPAP, initial ABG was obtained while on BiPAP with a PO2 of 92 and a PCO2 of 42.9 with a pH of 7.37 -Does not wear CPAP consistently -BNP on admission is 283.6 -Lasix 40 mg IV 3 times daily -Continue with home aspirin -We will hold his home metoprolol 2. IDDM 2 -We will continue with insulin -Accu-Cheks AC at bedtime -We will make adjustments as necessary 3. BPH -Stable -Continue with Flomax 4. Restless leg syndrome -Stable -Continue with pramipexole 5. GERD -Stable -Continue with PPI 6. Anxiety/depression -Stable -Continue with Prozac 7. History of TBI -Has had severe debility because of this. At one point he had dysphagia and a PEG tube in place currently able to take an oral diet. DVT: Lovenox Inpatient E&M: [id number] Init Hosp L3
--- NOTE | 2020-09-14 03:47 | ECHOCS_ITS ---
Reason For Study: CHF Procedure This was a 2D Doppler, Color Flow transthoracic echocardiogram. The study was technically difficult. Contrast injection was performed. Exam performed portable in patient room. Left Ventricle Moderately dilated left ventricle. Mild segmental systolic dysfunction (see wall motion). The estimated ejection fraction is 45 %. Posterior-Basal: Hypokinetic. Mid-Anterior : Hypokinetic. Mid- Lateral : Hypokinetic. Mid-Posterior: Hypokinetic. Mid-Inferior: Hypokinetic. Mid-inferoseptal : Hypokinetic. Mid-anteroseptal : Akinetic. Anterior [place] : Hypokinetic. Inferior [place] : Hypokinetic. Lateral [place] : Akinetic. Septal [place] : Akinetic. Right Ventricle Normal RV size. Normal systolic function. Atria The left atrium is mildly enlarged. Normal right atrium. No doppler evidence for ASD. Mitral Valve There is no mitral annular calcification. Mild diffuse mitral valve thickening. The mitral valve chordae are thickened and/or calcified. Moderate (2+) mitral valve insufficiency. Tricuspid Valve Normal tricuspid valve. Trivial tricuspid valve insufficiency. Right ventricular systolic pressure estimated to be 40 mmHg. Aortic Valve Trisinus/trileaflet aortic valve. Mild focal aortic valve calcification. Pulmonic Valve The pulmonic valve is not well visualized. Great Vessels Normal sized aortic root. Calcified aortic root. Pericardium/Pleural No pericardial effusion. Medication Diluted definity 5.0ml given slow IV push to enhance endocardial definition. MMode/2D Measurements & Calculations LVIDd: 6.6 cm IVSd: 1.2 cm Ao root diam: 3.7 cm LVIDs: 5.4 cm LVPWd: 1.1 cm RVDd: 3.7 cm FS: 17.6 % LAV(MOD-bp): 77.3 ml LA A4 area: 23.6 cm2 LA dimension(2D): 4.4 cm LAV(MOD-bp) Indexed: 30.8 ml/m2 LAV(MOD-sp2): 65.5 ml LAV(MOD-sp4): 77.8 ml RA A4 area: 16.5 cm2 Time Measurements MV dec time: 0.21 sec Doppler Measurements & Calculations MV E max elijah: 158.4 cm/sec Lat Peak E' Elijah: 8.4 cm/sec Med Peak E' Elijah: 7.4 cm/sec MV A max elijah: 110.8 cm/sec E/E' lat: 18.9 E/E' med: 21.5 MV E/A: 1.4 MV V2 max: 180.9 cm/sec Ao V2 max: 98.9 cm/sec LV V1 max: 78.0 cm/sec MV max P.1 mmHg Ao max P.9 mmHg LV V1 max P.4 mmHg MV V2 mean: 123.2 cm/sec MV mean P.6 mmHg MV V2 VTI: 35.3 cm TR max elijah: 294.1 cm/sec MV P1/2t-pr_phl: 36.6 msec TR max P.6 mmHg ECHO/Echo Complete W/ Contrast Interpretation Summary The study was technically difficult. Contrast injection was performed. Moderately dilated left ventricle. Mild segmental systolic dysfunction (see wall motion). The estimated ejection fraction is 45 %. The left atrium is mildly enlarged. Mild diffuse mitral valve thickening. The mitral valve chordae are thickened and/or calcified. Moderate (2+) mitral valve insufficiency. Trivial tricuspid valve insufficiency. Mild focal aortic valve calcification. Calcified aortic root. Right ventricular systolic pressure estimated to be 40 mmHg. Transmitral diastolic flow velocities suggest diastolic dysfunction (pseudonorm al pattern). Ordering Physician: Clyde Mathews Referring Physician: DAVID MCDONNELL Performed By: Candice Selby, RDCS, RVT
[2020-09-14] MEDS: 0.9% Saline Lock 10 ML Syringe IV ×3 (04:19→23:07)
[2020-09-14 06:19] LABS: Absolute Lymphocyte Count 0.99 X10^3/uL (0.83-4.51); Absolute Neutrophil Count 9.3 X10^3/uL (2.0-7.7); Basophil# 0.04 X10^3/uL; Basophil% 0.4 % (0-1); Eosinophil# 0.05 X10^3/uL; Eosinophils% 0.4 % (0-5); Hematocrit 41.4 % (40-54); Hemoglobin 12.4 g/dL (13.0-16.5); Lymphocyte # 0.99 X10^3/ul (4.0); Lymphocyte % 8.7 % (19-41); Mean Corpuscular Volume 93.5 fL (80-94); Mean Platelet Vol. 12.8 fl (6.2-12.0); Monocyte# 0.97 X10^3/uL; Monocyte% 8.5 % (0-10); NRBC Flagged by Analyzer 0 % (0-5); Neutrophil # 9.31 X10^3/uL (2.7-7.7); Neutrophil % 81.6 % (47-70); Platelet Count 204 K/mm3 (150-450); RBC Distribution Width CV 14.5 % (11.6-14.6); RBC Distribution Width SD 49.9 fl (35.1-43.9); Red Blood Count 4.43 M/mm3 (4.6-6.2); White Blood Count 11.4 K/mm3 (4.4-11.0)
[2020-09-14] MEDS: Furosemide 40 MG/4 ML Vial IV ×3 (06:36→21:10)
[2020-09-14] MEDS: Insulin Lispro 100 UNIT/ML INSULN.PEN SC ×4 (06:48→21:09)
[2020-09-14 06:54] LABS: Anion Gap 5 (5-15); BUN 18 mg/dL (7-18); BUN/Creat Ratio 17.6 RATIO (10-20); Calcium,Total 8.6 mg/dL (8.5-10.1); Chloride 104 mmol/L (98-107); Creatinine, Serum 1.02 mg/dL (0.70-1.30); EST Glomerular Filtration Rate 77 mL/min (>60); Est Glom Filt Rate - Afr Amer 93 mL/min (>60); Estimated Creatinine Clearance 76.16 ml/min; Glucose 259 mg/dL (74-106); Sodium Level 136 mmol/L (136-145)
[2020-09-14 06:56] LABS: Bedside Glucose 245 mg/dL (70-110)
--- NOTE | 2020-09-14 10:36 | PCM.PN.HOSP ---
Patient Problems: Active and Suspected Problems (Last Reviewed 07/31/20 @ 14:22 by Michelle Edwards) Acute respiratory failure with hypoxia (Acute) Acute pulmonary edema (Acute) History of coronary artery disease (Acute) Hyperglycemia (Acute) Sinus tachycardia seen on threat monitoring analyst (Acute) Subjective: Patient seen and examined. He was admitted with a complaint of shortness of breath and is being managed for acute on chronic hypoxic respiratory failure due to CHF exacerbation. He was on BIPAP at time of review, but was successfully transitioned to oxygen by nasal canula. He has remained hemodynamically stable. Vitals/I&O's: Vital Signs Temp Pulse Resp BP Pulse Ox 97.5 F L 82 21 H 118/70 99 09/14/20 05:02 09/14/20 07:00 09/14/20 05:02 09/14/20 05:02 09/14/20 05:30 Oxygen Flow Rate (L/min) 40 Oxygen Delivery Method Bi-pap Weight: 310 lb 13.628 oz Body Mass Index (BMI) 40.8 Finger Stick Blood Glucose 250 Intake and Output for Last 24 Hours 09/12/20 09/13/20 09/14/20 23:59 23:59 23:59 Intake Total 15.8 / 15.8 Output Total 500 / 500 Balance -484.2 / -484.2 General: Alert, Oriented x3, Cooperative, Lethargic HEENT: Atraumatic, PERRLA, EOMI, Normocephalic Oral: Dry Mucosa Neck: Supple, No JVD, Negative Carotid Bruits Lungs: - - diminished breath sounds bibasally, no wheezes or crackles. 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 Psych/Mental Status: Normal Affect, Appropriate, Alert and oriented to time, place, person, mood and affect Laboratory Results 09/14/20 01:35: WBC 16.0 H, RBC 4.81, Hgb 13.7, Hct 44.2, MCV 91.9, MCH 28.5, MCHC 31.0 L, RDW Std Deviation 48.9 H, RDW Coeff of Sherin 14.6, Plt Count 272, MPV 11.8, Immature Gran % (Auto) 0.600, Neut % (Auto) 66.1, Lymph % (Auto) 24.4, [place] % (Auto) 6.4, Eos % (Auto) 1.9, Baso % (Auto) 0.6, Absolute Neuts (auto) 10.6 H, Absolute Lymphs (auto) 3.91, Nucleated RBC % 0 09/14/20 01:35: PT 12.7, INR 1.0, APTT 27.0 09/14/20 01:35: Sodium 134 L, Potassium 3.8, Chloride 103, Carbon Dioxide 25.0, Anion Gap 6, BUN 18, Creatinine 1.21, Estim Creat Clear Calc 54.96, Est GFR (MDRD) Af Amer 76, Est GFR (MDRD) Non-Af 63, BUN/Creatinine Ratio 14.9, Glucose 330 H, Calcium 8.5, Total Bilirubin 0.50, AST 92 H, ALT 81 H, Alkaline Phosphatase 148 H, Troponin I < 0.015, Total Protein 7.9, Albumin 3.5, Globulin 4.4 H, Albumin/Globulin Ratio 0.8 L 09/14/20 01:35: B-Natriuretic Peptide 283.6 H 09/14/20 01:52: Specimen Type ART, Sample Site R Radial, pH 7.37, Bicarbonate Actual 24.9, Total CO2 26, Base Excess 0, O2 Saturation 97, O2 % 40, ABG pCO2 42.9, ABG pO2 92, Dejon Test Positive, Respiration Rate 12, O2 Delivery Device BiPAP, EPAP 10, IPAP 22, Blood Gas Notified Whom ED , Blood Gas Notified Time 0152, Clinical Comments BIPAP 22^ 09/14/20 04:50: WBC 11.4 H, RBC 4.43 L, Hgb 12.4 L, Hct 41.4, MCV 93.5, MCH 28.0, MCHC 30.0 L, RDW Std Deviation 49.9 H, RDW Coeff of Sherin 14.5, Plt Count 204, MPV 12.8 H, Immature Gran % (Auto) 0.400, Neut % (Auto) 81.6 H, Lymph % (Auto) 8.7 L, [place] % (Auto) 8.5, Eos % (Auto) 0.4, Baso % (Auto) 0.4, Absolute Neuts (auto) 9.3 H, Absolute Lymphs (auto) 0.99, Nucleated RBC % 0 09/14/20 04:50: Sodium 136, Potassium 4.0, Chloride 104, Carbon Dioxide 27.0, Anion Gap 5, BUN 18, Creatinine 1.02, Estim Creat Clear Calc 76.16, Est GFR (MDRD) Af Amer 93, Est GFR (MDRD) Non-Af 77, BUN/Creatinine Ratio 17.6, Glucose 259 H, Calcium 8.6 09/14/20 06:30: POC Glucose 245 H Diagnostic Data Chest X-Ray 09/14/20 01:23 IMPRESSION: Possible early congestive heart failure. Clinical correlation recommended. Electronically Signed: Aditi Vickers MD at 2:41 EDT , Service support , Current Medications Acetaminophen (Acetaminophen 325 Mg Tablet) 650 mg PO Q6H PRN PRN PRN Reason: Pain Score 1-10/Temp > 100.7 F Acetaminophen (Acetaminophen 500 Mg Tablet) 1,000 mg PO Q6H PRN PRN PRN Reason: Pain Score 1-3 Amantadine HCl (Amantadine 100 Mg Capsule) 100 mg PO DAILY [facility] Aspirin (Aspirin 81 Mg Tab.Chew) 81 mg PO DAILY@0800 [facility] Bisacodyl (Bisacodyl 10 Mg Suppository) 10 mg RC PRN PRN PRN Reason: Constipation Budesonide (Budesonide Respules 0.5 Mg/2 Ml Ampul.Neb.) 0.5 mg INHALATION DAILY [facility] Dextrose (Dextrose 50%-Water 25 Gm/50 Ml Disp.Syrin) 0 gm IV X1 PRN; Protocol PRN Reason: Hypoglycemia Enoxaparin Sodium (Enoxaparin 40 Mg/0.4 Ml Syringe) 40 mg SC DAILY [facility] Ergocalciferol (Ergocalciferol 50,000 Unit Capsule) unit PO DAILY [facility] Fluoxetine HCl (Fluoxetine 20 Mg Capsule) 40 mg PO DAILY [facility] Furosemide (Furosemide 40 Mg/4 Ml Vial) 40 mg IV Q8 [facility] Last Admin: 09/14/20 06:36 Dose: 40 mg Documented by: Glucagon (Glucagon 1 Mg/Ml Syringe) 1 mg IM .X1 PRN PRN Reason: Hypoglycemia Insulin Glargine (Insulin Glargine 100 Units/Ml Pen) 10 units SC QHS [facility] Insulin Glargine (Insulin Glargine 100 Units/Ml Pen) 10 units SC QHS [facility] Insulin Glargine (Insulin Glargine 100 Units/Ml Pen) 12 units SC BREAKFAST [facility] Insulin Human Lispro (Insulin Lispro 100 Unit/Ml Insuln.Pen) 0 unit SC ACHS [facility]; Protocol Last Admin: 09/14/20 06:48 Dose: 4 units Documented by: Melatonin (Melatonin 3 Mg Tablet) 3 mg PO QHS PRN PRN PRN Reason: INSOMNIA Metoprolol Tartrate (Metoprolol Tartrate 100 Mg Tablet) 100 mg PO TID [facility] Non-Formulary Medication (Insulin Aspart [Novolog Flexpen]) 0 - 11 units SC DAILY [facility] Non-Formulary Medication (Insulin Aspart [Novolog Flexpen]) 12 units SC TIDCM [facility] Non-Formulary Medication (Magnesium Oxide [Mgo]) 400 mg PO TID [facility] Non-Formulary Medication (Melatonin) 3 mg PO DAILY [facility] Nystatin (Nystatin Powder 15gm Bottle) 1 applic TOPICAL BID [facility]; Protocol Ondansetron HCl (Ondansetron 4 Mg/2 Ml Vial) 4 mg IV Q8H PRN PRN PRN Reason: NAUSEA/VOMITING Oxycodone HCl (Oxycodone 5 Mg Tablet) 5 mg PO Q6H PRN PRN PRN Reason: P/F Pantoprazole Sodium (Pantoprazole Sodium 40 Mg Tablet) 40 mg PO DAILY [facility] Potassium Chloride (Potassium Chloride Oral Tablet 20 Meq) 20 meq PO DAILY [facility] Pramipexole Dihydrochloride (Pramipexole Di-Hcl 0.25 Mg Tablet) 0.25 mg PO QHS [facility] Pravastatin Sodium (Pravastatin 80 Mg Tablet) 80 mg PO QHS [facility] Senna/Docusate Sodium (Senna/Docusate Sodium 1 Tablet) 2 tablet PO DAILY [facility] Sodium Chloride (0.9% Saline Lock 10 Ml Syringe) 10 - 40 ml IV UD PRN PRN Reason: SALINE FLUSH Last Admin: 09/14/20 06:36 Dose: 10 ml Documented by: Tamsulosin HCl (Tamsulosin Hcl 0.4 Mg Capsule) 0.4 mg PO DAILY [facility] Vital Signs/Narrative: Vital Signs Pulse 09/14/20 07:00 82 Medical Necessity - Tobacco Use Smoking Status: Current every day smoker Assessment/Plan All Active Problems (Last Reviewed 07/31/20 @ 14:22 by Michelle Edwards) Acute respiratory failure with hypoxia (Acute) Acute pulmonary edema (Acute) History of coronary artery disease (Acute) Hyperglycemia (Acute) Sinus tachycardia seen on threat monitoring analyst (Acute) History of coronary artery stent placement (Resolved 02/20/17) H/O coronary artery bypass surgery (Resolved 2001) History of non-ST elevation myocardial infarction (NSTEMI) (Resolved 02/21/19) Abnormal cardiac enzyme level (Resolved) Acute respiratory failure with hypoxia and hypercarbia (Resolved) Alcohol intoxication (Resolved) Bacteremia due to Escherichia coli (Resolved) COPD exacerbation (Resolved) Complicated CAUTI (Resolved) Healthcare associated bacteremia due to Staphylococcus aureus (Resolved) Infected decubitus ulcer (Resolved) Infected decubitus ulcer (Resolved) Multifocal community-acquired pneumonia (Resolved) Pneumonia (Resolved) Right scapula fracture (Resolved) Sepsis (Resolved) Severe sepsis (Resolved) Severe sepsis (Resolved) #Acute hypoxic respiratory failure due to acute on chronic HFpEF being diuresed with IV lasix BIPAP prn; transition to nasal canula as tolerated, and titrate to maintain sats >90% continue metoprolol monitor intake and output. Fluid restriction to 1500cc daily 2D echo from 2019: EF of 55%, with stage 1 diastolic dysfunction. #acute on chronic HFpEF: as above #Type 2 diabetes mellitus: continue home insulin dose. ISS. Accuchecks ACHS #BPH: on flomax #Restless leg syndrome: on pramipexole #Hypertension; on metoprolol #hyperlipidemia: Pravastatin. 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 Stable. #CAD s/p stents: On aspirin and statin as well as metoprolol. DVT prophylaxis: Lovenox Inpatient E&M: [id number] [facility] L3
[2020-09-14] MEDS: Nystatin Powder 15gm Bottle 1 APPLIC TOPICAL ×2 (10:44→21:08)
[2020-09-14] MEDS: oxyCODONE 5 MG Tablet PO ×2 (10:44→21:07)
[2020-09-14] MEDS: Enoxaparin 40 MG/0.4 ML Syringe SC (10:44)
--- NOTE | 2020-09-14 10:44 | CASEMGMT ---
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 CONTRERAS confirmed this with Marie at [facility]. No precert will be needed prior to return. Updates faxed. REILLY Lema
[2020-09-14] MEDS: Acetaminophen 500 MG Tablet 1000 MG PO ×2 (11:32→23:04)
[2020-09-14] MEDS: Insulin Lispro 100 UNIT/ML INSULN.PEN 12 UNIT SC ×2 (11:38→16:26)
[2020-09-14 11:45] LABS: Bedside Glucose 306 mg/dL (70-110)
--- NOTE | 2020-09-14 11:50 | NURSING ---
In to assess the colostomy appliance. patient is a resident at [facility] and has had the colostomy for quite some time. appliance is intact. appears to have been changed recently. pt unsure of the date. patient has small amount of formed brown stool in the appliance. did not change appliance at this time. will monitor need.
[2020-09-14] MEDS: Magnesium Chloride 64 MG Delay Rel.Tablet 128 MG PO ×2 (13:30→21:08)
[2020-09-14] MEDS: Metoprolol Tartrate 100 MG Tablet PO ×2 (13:31→21:08)
[2020-09-14] MEDS: Tamsulosin HCl 0.4 MG Capsule PO (16:27)
[2020-09-14 16:40] LABS: Bedside Glucose 190 mg/dL (70-110)
--- NOTE | 2020-09-14 17:11 | CASEMGMT ---
Green sheet placed on the chart in the event pt can discharge back to [facility] on the weekend. REILLY Lema
[2020-09-14] MEDS: Pravastatin 80 MG Tablet PO (21:08)
[2020-09-14] MEDS: Pramipexole Di-HCl 0.25 MG Tablet PO (21:08)
[2020-09-14] MEDS: MELATONIN 3 MG TABLET PO (21:08)
[2020-09-14 21:51] LABS: Bedside Glucose 246 mg/dL (70-110)
[2020-09-15] VITALS (16 sets, daily range): BP systolic 127–163; BP diastolic 44–85; PULSE 55–81; RESP 12–18; TEMP 36.4–36.6; O2SAT 94–98
[2020-09-15] MEDS: Magnesium Chloride 64 MG Delay Rel.Tablet 128 MG PO ×3 (06:24→21:45)
[2020-09-15] MEDS: Metoprolol Tartrate 100 MG Tablet PO ×3 (06:24→21:42)
[2020-09-15] MEDS: Furosemide 40 MG/4 ML Vial IV ×3 (06:25→21:45)
[2020-09-15] MEDS: Insulin Lispro 100 UNIT/ML INSULN.PEN SC ×4 (06:33→21:46)
[2020-09-15 06:46] LABS: Absolute Lymphocyte Count 1.99 X10^3/uL (0.83-4.51); Absolute Neutrophil Count 4.9 X10^3/uL (2.0-7.7); Basophil# 0.05 X10^3/uL; Basophil% 0.6 % (0-1); Eosinophil# 0.15 X10^3/uL; Eosinophils% 1.9 % (0-5); Hematocrit 38.8 % (40-54); Hemoglobin 11.7 g/dL (13.0-16.5); Lymphocyte # 1.99 X10^3/ul (4.0); Lymphocyte % 25.6 % (19-41); Mean Corp Hgb Conc 30.2 g/dL (32-36); Mean Corpuscular Hgb 27.9 pg (27.0-32.0); Mean Corpuscular Volume 92.6 fL (80-94); Mean Platelet Vol. 12.2 fl (6.2-12.0); Monocyte# 0.68 X10^3/uL; Monocyte% 8.7 % (0-10); NRBC Flagged by Analyzer 0 % (0-5); Neutrophil # 4.89 X10^3/uL (2.7-7.7); Neutrophil % 62.9 % (47-70); Platelet Count 194 K/mm3 (150-450); RBC Distribution Width CV 14.7 % (11.6-14.6); RBC Distribution Width SD 49.9 fl (35.1-43.9); Red Blood Count 4.19 M/mm3 (4.6-6.2); White Blood Count 7.8 K/mm3 (4.4-11.0)
[2020-09-15 06:56] LABS: Bedside Glucose 193 mg/dL (70-110)
[2020-09-15] MEDS: Budesonide Respules 0.5 MG/2 ML AMPUL.NEB. INHALATION (07:07)
[2020-09-15 08:02] LABS: Anion Gap 5 (5-15); BUN 17 mg/dL (7-18); BUN/Creat Ratio 18.9 RATIO (10-20); Calcium,Total 8.9 mg/dL (8.5-10.1); Chloride 103 mmol/L (98-107); EST Glomerular Filtration Rate 89 mL/min (>60); Est Glom Filt Rate - Afr Amer 107 mL/min (>60); Estimated Creatinine Clearance 86.31 ml/min; Glucose 176 mg/dL (74-106); Potassium 3.5 mmol/L (3.5-5.1); Sodium Level 136 mmol/L (136-145)
[2020-09-15] MEDS: Potassium Chloride Oral Tablet 20 MEQ PO (08:23)
[2020-09-15] MEDS: Aspirin 81 MG TAB.CHEW PO (08:23)
[2020-09-15] MEDS: Cholecalciferol (VIT D3) 25 MCG TABLET (1,000 UNITS) PO (08:23)
[2020-09-15] MEDS: Insulin Lispro 100 UNIT/ML INSULN.PEN 12 UNIT SC ×3 (08:24→16:46)
[2020-09-15 08:36] LABS: Bedside Glucose 180 mg/dL (70-110)
[2020-09-15] MEDS: Enoxaparin 40 MG/0.4 ML Syringe SC (09:04)
[2020-09-15] MEDS: Nystatin Powder 15gm Bottle 1 APPLIC TOPICAL ×2 (09:05→21:44)
[2020-09-15] MEDS: Senna/Docusate Sodium 1 Tablet 2 TABLET PO (09:06)
[2020-09-15] MEDS: Amantadine 100 MG Capsule PO (09:06)
[2020-09-15] MEDS: FLUoxetine 20 MG Capsule 40 MG PO (09:06)
[2020-09-15] MEDS: Pantoprazole Sodium 40 MG Tablet PO (09:06)
--- NOTE | 2020-09-15 10:44 | PCM.PN.HOSP ---
Patient Problems: Active and Suspected Problems (Last Reviewed 07/31/20 @ 14:22 by Michelle Edwards) Acute respiratory failure with hypoxia (Acute) Acute pulmonary edema (Acute) History of coronary artery disease (Acute) Hyperglycemia (Acute) Sinus tachycardia seen on ice guard tester (Acute) Subjective: Patient seen and examined. He looks much better today and has no complaints. Shortness of breath is much better today and he is on room air. Review of systems is otherwise negative. He has remained hemodynamically stable. Vitals/I&O's: Vital Signs Temp Pulse Resp BP Pulse Ox 97.7 F L 65 18 138/44 H 98 09/15/20 09:02 09/15/20 09:02 09/15/20 09:02 09/15/20 09:02 09/15/20 09:02 Oxygen Flow Rate (L/min) 1 Oxygen Delivery Method Room Air Weight: 304 lb 14.389 oz Body Mass Index (BMI) 40.8 Finger Stick Blood Glucose 250 Intake and Output for Last 24 Hours 09/13/20 09/14/20 09/15/20 23:59 23:59 23:59 Intake Total 15.8 / 135.8 120 / 120 Output Total 3250 / 3800 550 / 550 Balance -3234.2 / -3664.2 -430 / -430 General: Alert, Oriented x3, Cooperative HEENT: Atraumatic, PERRLA, EOMI, Normocephalic Oral: Dry Mucosa Neck: Supple, No JVD, Negative Carotid Bruits Lungs: - - diminished breath sounds bibasally, now on room air Cardiovascular: Regular rate, Regular Rhythm, Normal S1, Normal S2, No murmurs Abdomen: Bowel Sounds Present, Soft, Non Tender, Non-Distended, No Hepato-splenomegaly Extremities: No clubbing, No cyanosis, No edema, Capillary Refill Less than 3 Seconds Skin: No rashes, No breakdown Musculoskeletal: No Tenderness to Palpation of Joints or Extremities Lymphatic: No Cervical, Supraclavicular, or Inguinal Adenopathy Neurological: Cranial nerves II-XII grossly intact, - - 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 Psych/Mental Status: Normal Affect, Appropriate, Alert and oriented to time, place, person, mood and affect Microbiology Past 72 Hours 09/14/20 11:04 Mucosa - Nose SARS-CoV-2 Antigen (Rapid) - Final Laboratory Results 09/14/20 11:36: POC Glucose 306 H 09/14/20 16:23: POC Glucose 190 H 09/14/20 21:05: POC Glucose 246 H 09/15/20 05:39: WBC 7.8, RBC 4.19 L, Hgb 11.7 L, Hct 38.8 L, MCV 92.6, MCH 27.9, MCHC 30.2 L, RDW Std Deviation 49.9 H, RDW Coeff of Sherin 14.7 H, Plt Count 194, MPV 12.2 H, Immature Gran % (Auto) 0.300, Neut % (Auto) 62.9, Lymph % (Auto) 25.6, [place] % (Auto) 8.7, Eos % (Auto) 1.9, Baso % (Auto) 0.6, Absolute Neuts (auto) 4.9, Absolute Lymphs (auto) 1.99, Nucleated RBC % 0 09/15/20 05:39: Sodium 136, Potassium 3.5, Chloride 103, Carbon Dioxide 28.0, Anion Gap 5, BUN 17, Creatinine 0.90, Estim Creat Clear Calc 86.31, Est GFR (MDRD) Af Amer 107, Est GFR (MDRD) Non-Af 89, BUN/Creatinine Ratio 18.9, Glucose 176 H, Calcium 8.9 09/15/20 06:32: POC Glucose 193 H 09/15/20 08:20: POC Glucose 180 H Current Medications Acetaminophen (Acetaminophen 500 Mg Tablet) 1,000 mg PO Q6H PRN PRN PRN Reason: Pain Score 1-3 Last Admin: 09/14/20 23:04 Dose: 1,000 mg Documented by: Amantadine HCl (Amantadine 100 Mg Capsule) 100 mg PO DAILY [facility] Last Admin: 09/15/20 09:06 Dose: 100 mg Documented by: Aspirin (Aspirin 81 Mg Tab.Chew) 81 mg PO DAILY@0800 [facility] Last Admin: 09/15/20 08:23 Dose: 81 mg Documented by: Bisacodyl (Bisacodyl 10 Mg Suppository) 10 mg RC DAILY PRN PRN Reason: CONSTIPATION Budesonide (Budesonide Respules 0.5 Mg/2 Ml Ampul.Neb.) 0.5 mg INHALATION DAILY.RT [facility] Last Admin: 09/15/20 07:07 Dose: 0.5 mg Documented by: Cholecalciferol (Cholecalciferol (Vit D3) 25 Mcg Tablet (1,000 Units)) 25 mcg PO DAILYCM [facility] Last Admin: 09/15/20 08:23 Dose: 25 mcg Documented by: Dextrose (Dextrose 50%-Water 25 Gm/50 Ml Disp.Syrin) 0 gm IV X1 PRN; Protocol PRN Reason: Hypoglycemia Enoxaparin Sodium (Enoxaparin 40 Mg/0.4 Ml Syringe) 40 mg SC DAILY [facility] Last Admin: 09/15/20 09:04 Dose: 40 mg Documented by: Fluoxetine HCl (Fluoxetine 20 Mg Capsule) 40 mg PO DAILY [facility] Last Admin: 09/15/20 09:06 Dose: 40 mg Documented by: Furosemide (Furosemide 40 Mg/4 Ml Vial) 40 mg IV Q8 [facility] Last Admin: 09/15/20 06:25 Dose: 40 mg Documented by: Glucagon (Glucagon 1 Mg/Ml Syringe) 1 mg IM .X1 PRN PRN Reason: Hypoglycemia Insulin Glargine (Insulin Glargine 100 Units/Ml Pen) 10 units SC QHS [facility] Last Admin: 09/14/20 21:09 Dose: 10 units Documented by: Insulin Glargine (Insulin Glargine 100 Units/Ml Pen) 12 units SC BREAKFAST [facility] Last Admin: 09/15/20 08:25 Dose: 12 unit Documented by: Insulin Human Lispro (Insulin Lispro 100 Unit/Ml Insuln.Pen) 0 unit SC ACHS [facility]; Protocol Last Admin: 09/15/20 06:33 Dose: 2 units Documented by: Insulin Human Lispro (Insulin Lispro 100 Unit/Ml Insuln.Pen) 12 unit SC TIDCM [facility] Last Admin: 09/15/20 08:24 Dose: 12 units Documented by: Magnesium Chloride (Magnesium Chloride 64 Mg Delay Rel.Tablet) 128 mg PO TID [facility] Last Admin: 09/15/20 06:24 Dose: 128 mg Documented by: Melatonin (Melatonin 3 Mg Tablet) 3 mg PO QHS [facility] Last Admin: 09/14/20 21:08 Dose: 3 mg Documented by: Metoprolol Tartrate (Metoprolol Tartrate 100 Mg Tablet) 100 mg PO TID [facility] Last Admin: 09/15/20 06:24 Dose: 100 mg Documented by: Nystatin (Nystatin Powder 15gm Bottle) 1 applic TOPICAL BID [facility]; Protocol Last Admin: 09/15/20 09:05 Dose: 1 applic Documented by: Ondansetron HCl (Ondansetron 4 Mg/2 Ml Vial) 4 mg IV Q8H PRN PRN PRN Reason: NAUSEA/VOMITING Oxycodone HCl (Oxycodone 5 Mg Tablet) 5 mg PO Q6H PRN PRN PRN Reason: PAIN 1-10 Last Admin: 09/14/20 21:07 Dose: 5 mg Documented by: Pantoprazole Sodium (Pantoprazole Sodium 40 Mg Tablet) 40 mg PO DAILY [facility] Last Admin: 09/15/20 09:06 Dose: 40 mg Documented by: Potassium Chloride (Potassium Chloride Oral Tablet 20 Meq) [facility] Last Admin: 09/15/20 08:23 Dose: 20 meq Documented by: Pramipexole Dihydrochloride (Pramipexole Di-Hcl 0.25 Mg Tablet) 0.25 mg PO QHS [facility] Last Admin: 09/14/20 21:08 Dose: 0.25 mg Documented by: Pravastatin Sodium (Pravastatin 80 Mg Tablet) 80 mg PO QHS [facility] Last Admin: 09/14/20 21:08 Dose: 80 mg Documented by: Senna/Docusate Sodium (Senna/Docusate Sodium 1 Tablet) 2 tablet PO DAILY [facility] Last Admin: 09/15/20 09:06 Dose: 2 tablet Documented by: Sodium Chloride (0.9% Saline Lock 10 Ml Syringe) 10 - 40 ml IV UD PRN PRN Reason: SALINE FLUSH Last Admin: 09/14/20 23:07 Dose: 10 ml Documented by: Tamsulosin HCl (Tamsulosin Hcl 0.4 Mg Capsule) 0.4 mg PO DAILY@1730 [facility] Last Admin: 09/14/20 16:27 Dose: 0.4 mg Documented by: STROKE Vital Signs/Narrative: Vital Signs Temp Pulse Resp BP Pulse Ox 09/15/20 09:02 97.7 F L 65 18 138/44 H 98 09/15/20 08:02 94 09/15/20 07:10 81 18 Medical Necessity - Tobacco Use Smoking Status: Current every day smoker Assessment/Plan All Active Problems (Last Reviewed 07/31/20 @ 14:22 by Michelle Edwards) Acute respiratory failure with hypoxia (Acute) Acute pulmonary edema (Acute) History of coronary artery disease (Acute) Hyperglycemia (Acute) Sinus tachycardia seen on ice guard tester (Acute) History of coronary artery stent placement (Resolved 02/20/17) H/O coronary artery bypass surgery (Resolved 2001) History of non-ST elevation myocardial infarction (NSTEMI) (Resolved 02/21/19) Abnormal cardiac enzyme level (Resolved) Acute respiratory failure with hypoxia and hypercarbia (Resolved) Alcohol intoxication (Resolved) Bacteremia due to Escherichia coli (Resolved) COPD exacerbation (Resolved) Complicated CAUTI (Resolved) Healthcare associated bacteremia due to Staphylococcus aureus (Resolved) Infected decubitus ulcer (Resolved) Infected decubitus ulcer (Resolved) Multifocal community-acquired pneumonia (Resolved) Pneumonia (Resolved) Right scapula fracture (Resolved) Sepsis (Resolved) Severe sepsis (Resolved) Severe sepsis (Resolved) #Acute hypoxic respiratory failure due to acute on chronic HFpEF on IV lasix. Now on room air on metoprolol. 2D echo: EF of 45%, with 2+ mitral valve insufficiency, and RVSP of 40mmHg, and moderately dilated LV, with mild left segmental systolic function. BIPAP prn. considering decrease in EF and left ventricular systolic function, will consult cardiology. #acute on chronic HFpEF: as above #Type 2 diabetes mellitus: continue home insulin dose. ISS. Accuchecks ACHS #BPH: on flomax #Restless leg syndrome: on pramipexole #Hypertension; on metoprolol #hyperlipidemia: Pravastatin. 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 Stable. #CAD s/p stents: On aspirin and statin as well as metoprolol. DVT prophylaxis: Lovenox
[2020-09-15 11:20] LABS: Bedside Glucose 222 mg/dL (70-110)
[2020-09-15] MEDS: Acetaminophen 500 MG Tablet 1000 MG PO (12:12)
[2020-09-15] MEDS: oxyCODONE 5 MG Tablet PO (12:12)
--- NOTE | 2020-09-15 13:26 | CASEMGMT ---
Healthcare POA form scanned into summary tab of [facility] yoon provision initialed in it. Pt's , Farideh Vargas, listed as POA. There is a LW scanned in however it is pt's 's LW, not pt's. REILLY Lema
--- NOTE | 2020-09-15 13:27 | CASEMGMT ---
SW called and spoke w/, confirmed discharge plan is for pt to return to [facility] at discharge. Green sheet on chart in event pt is ready for discharge on the weekend. REILLY Lema
[2020-09-15] MEDS: 0.9% Saline Lock 10 ML Syringe IV (14:00)
--- NOTE | 2020-09-15 14:58 | CON.PCM_ITS ---
Problem List (1) Acute pulmonary edema Status: Acute (2) History of coronary artery disease Status: Chronic (3) History of coronary artery stent placement Status: Resolved Comment: [id number] LAD w/ 3.0 x 9 mm Resolute Stent 02/20/17 (4) H/O coronary artery bypass surgery Status: Resolved Comment: CABG x 3 Radial Artery-LAD, SVG-RCA, SVG-OM2 (5) Cardiomyopathy, ischemic Status: Chronic (6) Hyperlipidemia Status: Chronic Qualifiers: Hyperlipidemia type: unspecified Qualified Code(s): E78.5 - Hyperlipidemia, unspecified (7) Essential (primary) hypertension Status: Chronic (8) COPD (chronic obstructive pulmonary disease) Status: Chronic Qualifiers: (9) CVA (cerebral vascular accident) Status: Chronic Qualifiers: Comment: Residual right-sided hemiplegia Reason for Consult Date of Consultation: 09/15/20 History of Present Illness: The patient is a 70 year old white male with a history of underlying CAD, PCI, CABG, ischemic mediated cardiomyopathy, hyperlipidemia, hypertension, COPD, history of CVA, who is referred for evaluation of acute CHF/pulmonary edema. The patient apparently resides in an ECF. He states that he has had issues with respect to chest discomfort, left upper extremity discomfort, as well as shortness of breath/dyspnea. His who is with him at the moment states that sometimes she is unsure when the events occur because his memory is not as good as it used to be since his previous CVA. However she notes that recently he was complaining of a combination of the aforementioned symptoms. Apparently this worsened especially with respect to his shortness of breath and dyspnea. There is no report of any near-syncope or syncope. He was subsequently brought to the hospital for further evaluation. He had a negative troponin I level. His BNP level was somewhat elevated. His ECG demonstrated sinus rhythm with PVCs with nonspecific ST and T wave abnormality. An echocardiogram was requested. The results are as noted below. A chest x-ray was performed which suggested post open heart surgery changes and findings suspicious for CHF/pulmonary edema. He was placed in the PCU for further evaluation and care. [] Past Medical History Allergies/Adverse Reactions: Allergies atorvastatin Allergy (Verified 09/14/20 02:15) PT UNSURE OF REACTION cilostazol Allergy (Verified 09/14/20 02:15) Hives colestipol Allergy (Verified 09/14/20 02:15) Hives diltiazem Allergy (Verified 09/14/20 02:15) Hives gemfibrozil Allergy (Verified 09/14/20 02:15) Hives naproxen [From Naprosyn] Allergy (Verified 09/14/20 02:15) Hives niacin Allergy (Verified 09/14/20 02:15) PT UNSURE OF REACTION Nitrate Analogues Allergy (Verified 09/14/20 02:15) Hives Penicillins Allergy (Verified 09/14/20 02:15) Hives pravastatin Allergy (Verified 09/14/20 02:15) NEEDS FOLLOW-UP procainamide Allergy (Verified 09/14/20 02:15) Hives rosuvastatin Allergy (Verified 09/14/20 02:15) Hives simvastatin Allergy (Verified 09/14/20 02:15) Hives isosorbide Adverse Reaction (Severe, Verified 09/14/20 02:15) Unknown Home Medications: Ambulatory Orders Medication Instructions Recorded Amantadine [Symmetrel] 100 mg PO DAILY 04/17/18 Metoprolol Tartrate [Lopressor 100 mg PO TID 04/17/18 (beta stepan)] Pantoprazole Sodium [Protonix] 40 mg PO DAILY 04/17/18 Pramipexole Di-HCl [Mirapex] 0.25 mg PO QHS 04/17/18 Pravastatin Sodium 80 mg PO QHS 04/17/18 Tamsulosin HCl [Flomax] 0.4 mg PO DAILY 04/17/18 furosemide 40 mg tablet 40 mg PO BID tab 06/17/18 potassium chloride 20 mEq 20 meq PO DAILY 90 Days #90 tab 06/17/18 tablet,extended release(part/cryst) Fluoxetine [Prozac] 40 mg PO DAILY 02/20/19 Nitroglycerin 0.4 mg SL PRN PRN 02/20/19 Aspirin [Aspirin, Baby] 81 mg PO DAILY@0800 02/24/19 Acetaminophen [Tylenol] 1,000 mg PO Q6H PRN PRN tab 03/03/19 Menthol/Lanolin/Calamine/Znox 1 applic TOPICAL 0600,2200 tube 03/03/19 [Calmoseptine Ointment] Bisacodyl 10 mg RC DAILY PRN PRN 09/14/19 Insulin Aspart [Novolog Flexpen 0 - 11 units SC DAILY 09/14/19 ([facility])] Insulin Aspart [Novolog Flexpen 12 units SC TIDCM 09/14/19 ([facility])] Magnesium Oxide [Mgo] 400 mg PO TID 09/14/19 Oxycodone [Oxyir] 5 mg PO Q6H PRN PRN 09/14/19 Budesonide [Pulmicort] 0.5 mg IH DAILY 01/02/20 Sennosides/Docusate Sodium 2 ea PO DAILY 01/02/20 [Senna-S Laxative Tablet] Cholecalciferol (VIT D3) [Vitamin 1,000 unit PO DAILY 09/14/20 D] Insulin Glargine [Lantus ([facility])] 10 units SC QHS 09/14/20 Insulin Glargine [Lantus SoloStar 12 units SC BREAKFAST 09/14/20 Pen] Melatonin 3 mg PO DAILY 09/14/20 Past Medical History (Chronic Problems): Chronic Problems (Last Reviewed 07/31/20 @ 14:22 by Michelle Edwards) Cardiomyopathy, ischemic (Chronic) Atherosclerosis of coronary artery bypass graft without angina pectoris (Chronic) Chronic diastolic (congestive) heart failure (Chronic) Essential (primary) hypertension (Chronic) Hyperlipidemia (Chronic) CVA (cerebral vascular accident) (Chronic) Residual right-sided hemiplegia COPD (chronic obstructive pulmonary disease) (Chronic) Surgical History: angioplasty, coronary bypass surgery - x 3., - - PEG tube with eventual removal, Diverting colostomy, suprapubic catheter. Psychiatric History: Anxiety, Depression - *Family History Maternal Family History: Family History (Last Reviewed 07/31/20 @ 14:22 by Michelle Edwards) Brother Heart disease Father Heart disease History Items: - Paternal Family History: Family History (Last Reviewed 07/31/20 @ 14:22 by Michelle Edwards) Brother Heart disease Father Heart disease History Items: Heart Disease Lives: Assisted Smoking Status: Current every day smoker Alcohol: None Drugs: None Review of Systems - Review of Systems General: Reports: Weakness. Denies: Fever, Fatigue, Night Sweats Cardiovascular: Reports: Chest Discomfort, Chest Discomfort at Rest, Shortness of Breath, Shortness of Breath at Rest, Shortness of Breath with Exertion, Orthopnea, PND, Peripheral Edema. Denies: Palpitations, Lightheadedness, Dizziness, Near Syncope, Syncope Respiratory: Reports: Shortness of Breath. Denies: Cough, Sputum Production, Hemoptysis Gastrointestinal: Denies: Hematemesis, Hematochezia, Melena Genitourinary: Denies: Dysuria, Hematuria Skin: Denies: Rash Subjectve: Old obese white male who appears to be resting reasonably comfortably in the semirecumbent position at this time in no acute distress. Objective: Vital Signs Temp Pulse Resp BP Pulse Ox 97.5 F L 65 18 134/65 H 96 09/15/20 14:00 09/15/20 14:00 09/15/20 14:00 09/15/20 14:00 09/15/20 14:00 Oxygen Flow Rate (L/min) 1 Oxygen Delivery Method Room Air Weight: 304 lb 14.389 oz Body Mass Index (BMI) 40.8 Finger Stick Blood Glucose 250 Intake and Output for Last 24 Hours 09/13/20 09/14/20 09/15/20 23:59 23:59 23:59 Intake Total 15.8 / 135.8 520 / 520 Output Total 3250 / 3800 2525 / 2525 Balance -3234.2 / -3664.2 -2004 / General: Awake, Alert, Oriented x 3, Cooperative, No Acute Distress, Obese HEENT: Atraumatic, Normocephalic, PERRL, EOMI, Sclera Non Icteric Neck: Supple, Good ROM, No JVD Lungs: Diminished Lele Bases Cardiovascular: Regular Rhythm, Normal S1, Normal S2 Abdomen: Bowel Sounds Present, Soft, Obese Extremities: Mild RLE Edema, Mild LLE Edema Psych/Mental Status: Memory Loss 09/15/20 05:39: WBC 7.8, RBC 4.19 L, Hgb 11.7 L, Hct 38.8 L, MCV 92.6, MCH 27.9, MCHC 30.2 L, Plt Count 194, MPV 12.2 H, Immature Gran % (Auto) 0.300, Neut % (Auto) 62.9, Lymph % (Auto) 25.6, [place] % (Auto) 8.7, Eos % (Auto) 1.9, Baso % (Auto) 0.6, Absolute Neuts (auto) 4.9, Nucleated RBC % 0 09/15/20 05:39: Sodium 136, Potassium 3.5, Chloride 103, Carbon Dioxide 28.0, Anion Gap 5, BUN 17, Creatinine 0.90, Est GFR (MDRD) Af Amer 107, Est GFR (MDRD) Non-Af 89, BUN/Creatinine Ratio 18.9, Glucose 176 H, Calcium 8.9 Rhythm: Sinus rhythm EKG: Sinus rhythm; PVCs; nonspecific ST/T wave abnormality ECHO: Interpretation Summary The study was technically difficult. Contrast injection was performed. Moderately dilated left ventricle. Mild segmental systolic dysfunction (see wall motion). The estimated ejection fraction is 45 %. The left atrium is mildly enlarged. Mild diffuse mitral valve thickening. The mitral valve chordae are thickened and/or calcified. Moderate (2+) mitral valve insufficiency. Trivial tricuspid valve insufficiency. Mild focal aortic valve calcification. Calcified aortic root. Right ventricular systolic pressure estimated to be 40 mmHg. Transmitral diastolic flow velocities suggest diastolic dysfunction (pseudonormal pattern). Cardiac cath: 02-20-2017 Left ventricle: Anterior hypokinesis and inferior basal akinesis with an LVEF reported at 25% Left main: Mild calcification with mild luminal irregularities less than 30% LAD: Proximal LAD previously placed stent has an in-stent 90% restenosis Mid LAD with mild luminal irregularities less than 30% Distal LAD with mild luminal irregularities less than 30% LCx: Occluded OM1 with proximal mild luminal irregularities and mid mild luminal irregularities RCA: In-stent restenosis 85% long RCA mid: Occluded Radial graft to the LAD: Occluded SVG graft to the RCA: Occluded SVG graft to the second OM: Occluded Collateral flow from the LCx to the right posterior lateral system Collateral flow from the LCx to the left PDA PCI: 02-20-2017 PTCA/MONROE to the proximal LAD with a [employer] resolute Rx 3.0 x [address] Fields CT Surgery: 2002: Radial artery to the LAD SVG to the OM SVG to the RCA CXR: Preliminary evaluation: Post open heart surgery changes; findings suspicious for CHF/pulmonary edema; please see official report Assessment/Plan 1. Acute CHF/pulmonary edema It appears the patient developed underlying acute CHF/pulmonary edema. He is being evaluated. His troponin I level has been negative. His BNP level was somewhat elevated. He has undergone evaluation with a transthoracic echocardiogram with the findings as noted. In the interim he is being treated. This is included the addition of IV diuretic therapy. He appears to be improving. He apparently is not a candidate for medical therapy with nitrates based upon concerns of an allergic reaction with hives. He does not appear to be on any afterload reducing agents at this time such as DANII inhibitor's or ARB's or Entresto. These may be considered barring some adverse event. 2. CAD status post PCI status post CABG The patient has history of underlying extensive cardiovascular disease as previously described by his invasive studies. At the moment he is not having ongoing chest discomfort. His initial troponin I level was negative. His ECG is as noted. His echocardiogram does suggest left ventricular regional wall motion abnormalities with diminished LV systolic function/LVEF. He will continue medical management. He apparently has been unable to take nitrates based upon allergic reaction with concerns of hives. He is on beta- blockers. He is also receiving, secondary to his acute CHF event IV diuretics. He is not on any afterload reducing agents at this time. He is on lipid- lowering agents. He may be a candidate for additional agents such as Ranexa. He could also be considered a candidate for additional medical therapy with an afterload reducing agent. Based upon his clinical scenario and his objective findings including his LVEF appearing diminished compared to the previous study, it may be reasonable to consider him for further evaluation in the cardiac catheterization laboratory. 3. Ischemic mediated cardiomyopathy He does have an ischemic mediated cardiomyopathy. It appears that his LV systolic function was markedly depressed in the past. It was reported as improved. Based upon his current echocardiogram it appears his LV demonstrates regional wall motion analysis and an LVEF that has declined. At the present time he will need to continue medical management. However it may be reasonable to consider him for reevaluation in the cardiac catheterization laboratory to reassess his coronary anatomy for progression of disease requiring repeat percutaneous intervention. 4. Hyperlipidemia He will continue risk factor modification medical therapy. 5. Hypertension His blood pressure will be followed with his medicines being adjusted accordingly. 6. COPD He does have a history of COPD. He will need to continue medical management per his other physicians. 7. CVA Apparently there is a history of remote CVA. His does state that this has affected his memory. Comment: The patient's case has been discussed and reviewed with the patient, his spouse, and Dr. Ortiz. This note was generated using a voice recognition system and there may be incorrect words, spelling or punctuation that were not noted when reviewing the office note prior to saving. Procedure Criteria Procedure Type: Elective COVID Risk Discussion: The surgeon/proceduralist and patient have discussed in detail the risk of exposure to and/or potential harm posed by the COVID-19 virus with having a surgery/procedure at this time versus the risk of delaying the surgery/procedure. It is not possible to know either the risk of delaying the surgery or procedure or chance of getting an infection with perfect accuracy, but a joint decision was made between the patient and the surgeon/proceduralist to proceed at this time with the scheduled surgery/procedure as indicated on the consent form.
[2020-09-15] MEDS: Tamsulosin HCl 0.4 MG Capsule PO (16:44)
[2020-09-15 17:05] LABS: Bedside Glucose 164 mg/dL (70-110)
[2020-09-15] MEDS: Pravastatin 80 MG Tablet PO (21:45)
[2020-09-15] MEDS: MELATONIN 3 MG TABLET PO (21:45)
[2020-09-15] MEDS: Pramipexole Di-HCl 0.25 MG Tablet PO (21:45)
[2020-09-15] MEDS: SACUBITRIL/VALSARTAN 24/26 MG TABLET 1 EACH PO (21:47)
[2020-09-15] MEDS: Ranolazine 500 MG Tablet PO (21:47)
[2020-09-15 22:01] LABS: Bedside Glucose 229 mg/dL (70-110)
[2020-09-16] VITALS (16 sets, daily range): BP systolic 91–140; BP diastolic 30–79; PULSE 60–78; RESP 12–21; TEMP 36.4–36.6; O2SAT 94–98
[2020-09-16] MEDS: Furosemide 40 MG/4 ML Vial IV (06:10)
[2020-09-16] MEDS: Metoprolol Tartrate 100 MG Tablet PO (06:10)
[2020-09-16] MEDS: Magnesium Chloride 64 MG Delay Rel.Tablet 128 MG PO ×3 (06:10→21:25)
[2020-09-16] MEDS: Insulin Lispro 100 UNIT/ML INSULN.PEN SC ×4 (06:49→21:26)
[2020-09-16 06:55] LABS: Bedside Glucose 189 mg/dL (70-110)
[2020-09-16 06:57] LABS: Absolute Lymphocyte Count 1.74 X10^3/uL (0.83-4.51); Absolute Neutrophil Count 5.2 X10^3/uL (2.0-7.7); Basophil# 0.05 X10^3/uL; Basophil% 0.6 % (0-1); Eosinophil# 0.14 X10^3/uL; Eosinophils% 1.8 % (0-5); Hematocrit 42.5 % (40-54); Hemoglobin 12.9 g/dL (13.0-16.5); Lymphocyte # 1.74 X10^3/ul (4.0); Mean Corp Hgb Conc 30.4 g/dL (32-36); Mean Corpuscular Hgb 28.2 pg (27.0-32.0); Mean Corpuscular Volume 92.8 fL (80-94); Mean Platelet Vol. 11.3 fl (6.2-12.0); Monocyte# 0.75 X10^3/uL; Monocyte% 9.5 % (0-10); NRBC Flagged by Analyzer 0 % (0-5); Neutrophil # 5.18 X10^3/uL (2.7-7.7); Neutrophil % 65.6 % (47-70); Platelet Count 203 K/mm3 (150-450); RBC Distribution Width CV 14.6 % (11.6-14.6); RBC Distribution Width SD 49.4 fl (35.1-43.9); Red Blood Count 4.58 M/mm3 (4.6-6.2); White Blood Count 7.9 K/mm3 (4.4-11.0)
[2020-09-16 06:59] LABS: Anion Gap 4 (5-15); BUN 17 mg/dL (7-18); BUN/Creat Ratio 19.7 RATIO (10-20); Calcium,Total 9.2 mg/dL (8.5-10.1); Chloride 105 mmol/L (98-107); Creatinine, Serum 0.86 mg/dL (0.70-1.30); EST Glomerular Filtration Rate 93 mL/min (>60); Est Glom Filt Rate - Afr Amer 112 mL/min (>60); Estimated Creatinine Clearance 90.33 ml/min; Glucose 177 mg/dL (74-106); Potassium 3.8 mmol/L (3.5-5.1); Sodium Level 136 mmol/L (136-145)
[2020-09-16] MEDS: oxyCODONE 5 MG Tablet PO (07:03)
[2020-09-16] MEDS: Budesonide Respules 0.5 MG/2 ML AMPUL.NEB. INHALATION (07:42)
[2020-09-16] MEDS: Acetaminophen 500 MG Tablet 1000 MG PO (08:09)
[2020-09-16] MEDS: Potassium Chloride Oral Tablet 20 MEQ PO (08:10)
[2020-09-16] MEDS: Aspirin 81 MG TAB.CHEW PO (08:10)
[2020-09-16] MEDS: Insulin Lispro 100 UNIT/ML INSULN.PEN 12 UNIT SC ×3 (08:10→16:40)
[2020-09-16] MEDS: Cholecalciferol (VIT D3) 25 MCG TABLET (1,000 UNITS) PO (08:10)
[2020-09-16] MEDS: Nystatin Powder 15gm Bottle 1 APPLIC TOPICAL ×2 (09:38→21:24)
[2020-09-16] MEDS: Pantoprazole Sodium 40 MG Tablet PO (09:38)
[2020-09-16] MEDS: Amantadine 100 MG Capsule PO (09:38)
[2020-09-16] MEDS: FLUoxetine 20 MG Capsule 40 MG PO (09:38)
[2020-09-16] MEDS: Senna/Docusate Sodium 1 Tablet 2 TABLET PO (09:38)
[2020-09-16] MEDS: Enoxaparin 40 MG/0.4 ML Syringe SC (09:39)
[2020-09-16] MEDS: Ranolazine 500 MG Tablet PO ×2 (09:48→21:25)
--- NOTE | 2020-09-16 10:14 | PCM.PN.HOSP ---
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 He felt well this morning and had no complaints. Patient noted to be hypotensive this morning with blood pressure going down into the 90s over 30s. He is asymptomatic. Will check orthostatics. Cardiology on board. Recommendation is for cardiac cath tomorrow. Vitals/I&O's: Vital Signs Temp Pulse Resp BP Pulse Ox 97.7 F L 60 18 91/30 L 95 09/16/20 09:34 09/16/20 09:34 09/16/20 09:34 09/16/20 09:35 09/16/20 09:34 Oxygen Flow Rate (L/min) 1 Oxygen Delivery Method Room Air Weight: 304 lb 14.389 oz Body Mass Index (BMI) 40.8 Finger Stick Blood Glucose 250 Intake and Output for Last 24 Hours 09/14/20 09/15/20 09/16/20 23:59 23:59 23:59 Intake Total 15.8 / 135.8 920 / 1040 180 / 180 Output Total 3250 / 3800 3925 / 5425 1999 Balance -3234.2 / -3664.2 -3005 / -4385 -1820 / -1820 General: Alert, Oriented x3, Cooperative HEENT: Atraumatic, PERRLA, EOMI, Normocephalic Oral: Dry Mucosa Neck: Supple, No JVD, Negative Carotid Bruits Lungs: - - diminished breath sounds bibasally, now on room air Cardiovascular: Regular rate, Regular Rhythm, Normal S1, Normal S2, No murmurs Abdomen: Bowel Sounds Present, Soft, Non Tender, Non-Distended, No Hepato-splenomegaly Extremities: No clubbing, No cyanosis, No edema, Capillary Refill Less than 3 Seconds Skin: No rashes, No breakdown Musculoskeletal: No Tenderness to Palpation of Joints or Extremities Lymphatic: No Cervical, Supraclavicular, or Inguinal Adenopathy Neurological: Cranial nerves II-XII grossly intact, - - 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 Psych/Mental Status: Normal Affect, Appropriate, Alert and oriented to time, place, person, mood and affect Microbiology Past 72 Hours 09/14/20 11:04 Mucosa - Nose SARS-CoV-2 Antigen (Rapid) - Final Laboratory Results 09/15/20 11:12: POC Glucose 222 H 09/15/20 16:41: POC Glucose 164 H 09/15/20 21:41: POC Glucose 229 H 09/16/20 05:27: WBC Cancelled, Corrected WBC Cancelled, RBC Cancelled, Hgb Cancelled, Hct Cancelled, MCV Cancelled, MCH Cancelled, MCHC Cancelled, RDW Std Deviation Cancelled, RDW Coeff of Sherin Cancelled, Plt Count Cancelled, MPV Cancelled, Immature Gran % (Auto) Cancelled, Neut % (Auto) Cancelled, Lymph % (Auto) Cancelled, [place] % (Auto) Cancelled, Eos % (Auto) Cancelled, Baso % (Auto) Cancelled, Absolute Neuts (auto) Cancelled, Absolute Lymphs (auto) Cancelled, Total Counted Cancelled, Neutrophils % (Manual) Cancelled, Band Neutrophils % Cancelled, Lymphocytes % (Manual) Cancelled, Monocytes % (Manual) Cancelled, Eosinophils % (Manual) Cancelled, Basophils % (Manual) Cancelled, Metamyelocytes % Cancelled, Myelocytes % Cancelled, Promyelocytes % Cancelled, Blast Cells % Cancelled, Plasma Cell % (Manual) Cancelled, Other Cells % Cancelled, Nucleated RBC % Cancelled, Nucleated RBCs/100 WBC Cancelled, Differential Comment Cancelled, Diff Path Review Cancelled, Hypersegmented Neuts Cancelled, Atypical Lymphocytes Cancelled, Reactive Lymphocytes Cancelled, Smudge Cells Cancelled, Toxic Granulation Cancelled, Toxic Vacuolation Cancelled, Dohle Bodies Cancelled, Axel Rods Cancelled, Platelet Estimate Cancelled, Plt Morphology Comment Cancelled, RBC Morphology Cancelled, Polychromasia Cancelled, Hypochromasia Cancelled, Poikilocytosis Cancelled, Basophilic Stippling Cancelled, Anisocytosis Cancelled, Microcytosis Cancelled, Macrocytosis Cancelled, Spherocytes Cancelled, Sickle Cells Cancelled, Target Cells Cancelled, Tear Drop Cells Cancelled, Ovalocytes Cancelled, Stomatocytes Cancelled, [place] Bodies Cancelled, [place] Cells Cancelled, Bite Cells Cancelled, Crenated Cell Cancelled, Acanthocytes (Spur) Cancelled, Rouleaux Cancelled, Schistocytes Cancelled 09/16/20 05:27: Sodium 136, Potassium 3.8, Chloride 105, Carbon Dioxide 27.0, Anion Gap 4 L, BUN 17, Creatinine 0.86, Estim Creat Clear Calc 90.33, Est GFR (MDRD) Af Amer 112, Est GFR (MDRD) Non-Af 93, BUN/Creatinine Ratio 19.7, Glucose 177 H, Calcium 9.2 09/16/20 06:45: WBC 7.9, RBC 4.58 L, Hgb 12.9 L, Hct 42.5, MCV 92.8, MCH 28.2, MCHC 30.4 L, RDW Std Deviation 49.4 H, RDW Coeff of Sherin 14.6, Plt Count 203, MPV 11.3, Immature Gran % (Auto) 0.500, Neut % (Auto) 65.6, Lymph % (Auto) 22.0, [place] % (Auto) 9.5, Eos % (Auto) 1.8, Baso % (Auto) 0.6, Absolute Neuts (auto) 5.2, Absolute Lymphs (auto) 1.74, Nucleated RBC % 0 09/16/20 06:49: POC Glucose 189 H Current Medications Acetaminophen (Acetaminophen 500 Mg Tablet) 1,000 mg PO Q6H PRN PRN PRN Reason: Pain Score 1-3 Last Admin: 09/16/20 08:09 Dose: 1,000 mg Documented by: Amantadine HCl (Amantadine 100 Mg Capsule) 100 mg PO DAILY [facility] Last Admin: 09/16/20 09:38 Dose: 100 mg Documented by: Aspirin (Aspirin 81 Mg Tab.Chew) 81 mg PO DAILY@0800 [facility] Last Admin: 09/16/20 08:10 Dose: 81 mg Documented by: Bisacodyl (Bisacodyl 10 Mg Suppository) 10 mg RC DAILY PRN PRN Reason: CONSTIPATION Budesonide (Budesonide Respules 0.5 Mg/2 Ml Ampul.Neb.) 0.5 mg INHALATION DAILY.RT [facility] Last Admin: 09/16/20 07:42 Dose: 0.5 mg Documented by: Cholecalciferol (Cholecalciferol (Vit D3) 25 Mcg Tablet (1,000 Units)) 25 mcg PO DAILYCM [facility] Last Admin: 09/16/20 08:10 Dose: 25 mcg Documented by: Dextrose (Dextrose 50%-Water 25 Gm/50 Ml Disp.Syrin) 0 gm IV X1 PRN; Protocol PRN Reason: Hypoglycemia Enoxaparin Sodium (Enoxaparin 40 Mg/0.4 Ml Syringe) 40 mg SC DAILY [facility] Last Admin: 09/16/20 09:39 Dose: 40 mg Documented by: Fluoxetine HCl (Fluoxetine 20 Mg Capsule) 40 mg PO DAILY [facility] Last Admin: 09/16/20 09:38 Dose: 40 mg Documented by: Furosemide (Furosemide 40 Mg/4 Ml Vial) 40 mg IV Q8 [facility] Last Admin: 09/16/20 06:10 Dose: 40 mg Documented by: Glucagon (Glucagon 1 Mg/Ml Syringe) 1 mg IM .X1 PRN PRN Reason: Hypoglycemia Sodium Chloride () 500 mls @ 500 mls/hr IV .Q1H [facility] Stop: 09/16/20 10:59 Insulin Glargine (Insulin Glargine 100 Units/Ml Pen) 10 units SC QHS [facility] Last Admin: 09/15/20 21:46 Dose: 10 units Documented by: Insulin Glargine (Insulin Glargine 100 Units/Ml Pen) 12 units SC BREAKFAST [facility] Last Admin: 09/16/20 08:11 Dose: 12 unit Documented by: Insulin Human Lispro (Insulin Lispro 100 Unit/Ml Insuln.Pen) 0 unit SC ACHS [facility]; Protocol Last Admin: 09/16/20 06:49 Dose: 2 units Documented by: Insulin Human Lispro (Insulin Lispro 100 Unit/Ml Insuln.Pen) 12 unit SC TIDCM [facility] Last Admin: 09/16/20 08:10 Dose: 12 units Documented by: Magnesium Chloride (Magnesium Chloride 64 Mg Delay Rel.Tablet) 128 mg PO TID [facility] Last Admin: 09/16/20 06:10 Dose: 128 mg Documented by: Melatonin (Melatonin 3 Mg Tablet) 3 mg PO QHS [facility] Last Admin: 09/15/20 21:45 Dose: 3 mg Documented by: Metoprolol Tartrate (Metoprolol Tartrate 100 Mg Tablet) 100 mg PO TID [facility] Last Admin: 09/16/20 06:10 Dose: 100 mg Documented by: Nystatin (Nystatin Powder 15gm Bottle) 1 applic TOPICAL BID [facility]; Protocol Last Admin: 09/16/20 09:38 Dose: 1 applic Documented by: Ondansetron HCl (Ondansetron 4 Mg/2 Ml Vial) 4 mg IV Q8H PRN PRN PRN Reason: NAUSEA/VOMITING Oxycodone HCl (Oxycodone 5 Mg Tablet) 5 mg PO Q6H PRN PRN PRN Reason: PAIN 1-10 Last Admin: 09/16/20 07:03 Dose: 5 mg Documented by: Pantoprazole Sodium (Pantoprazole Sodium 40 Mg Tablet) 40 mg PO DAILY [facility] Last Admin: 09/16/20 09:38 Dose: 40 mg Documented by: Potassium Chloride (Potassium Chloride Oral Tablet 20 Meq) [facility] Last Admin: 09/16/20 08:10 Dose: 20 meq Documented by: Pramipexole Dihydrochloride (Pramipexole Di-Hcl 0.25 Mg Tablet) 0.25 mg PO QHS [facility] Last Admin: 09/15/20 21:45 Dose: 0.25 mg Documented by: Pravastatin Sodium (Pravastatin 80 Mg Tablet) 80 mg PO QHS [facility] Last Admin: 09/15/20 21:45 Dose: 80 mg Documented by: Ranolazine (Ranolazine 500 Mg Tablet) 500 mg PO BID [facility] Last Admin: 09/16/20 09:48 Dose: 500 mg Documented by: Sacubitril/Valsartan (Sacubitril/Valsartan 24/26 Mg Tablet) 1 each PO BID [facility] Last Admin: 09/16/20 09:35 Dose: Not Given Documented by: Senna/Docusate Sodium (Senna/Docusate Sodium 1 Tablet) 2 tablet PO DAILY [facility] Last Admin: 09/16/20 09:38 Dose: 2 tablet Documented by: Sodium Chloride (0.9% Saline Lock 10 Ml Syringe) 10 - 40 ml IV UD PRN PRN Reason: SALINE FLUSH Last Admin: 09/15/20 14:00 Dose: 10 ml Documented by: Tamsulosin HCl (Tamsulosin Hcl 0.4 Mg Capsule) 0.4 mg PO DAILY@1730 [facility] Last Admin: 09/15/20 16:44 Dose: 0.4 mg Documented by: STROKE Vital Signs/Narrative: Vital Signs Temp Pulse Resp BP BP Pulse Ox 09/16/20 09:35 91/30 L 09/16/20 09:34 97.7 F L 60 18 91/42 L 95 09/16/20 08:15 95 09/16/20 07:35 78 21 H 09/16/20 06:32 63 Medical Necessity - Tobacco Use Smoking Status: Current every day smoker Assessment/Plan All Active Problems (Last Reviewed 07/31/20 @ 14:22 by Michelle Edwards) Acute respiratory failure with hypoxia (Acute) Acute pulmonary edema (Acute) History of coronary artery disease (Acute) Hyperglycemia (Acute) 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 (Acute) History of coronary artery stent placement (Resolved 02/20/17) H/O coronary artery bypass surgery (Resolved 2001) History of non-ST elevation myocardial infarction (NSTEMI) (Resolved 02/21/19) Abnormal cardiac enzyme level (Resolved) Acute respiratory failure with hypoxia and hypercarbia (Resolved) Alcohol intoxication (Resolved) Bacteremia due to Escherichia coli (Resolved) COPD exacerbation (Resolved) Complicated CAUTI (Resolved) Healthcare associated bacteremia due to Staphylococcus aureus (Resolved) Infected decubitus ulcer (Resolved) Infected decubitus ulcer (Resolved) Multifocal community-acquired pneumonia (Resolved) Pneumonia (Resolved) Right scapula fracture (Resolved) Sepsis (Resolved) Severe sepsis (Resolved) Severe sepsis (Resolved) #Acute hypoxic respiratory failure due to acute on chronic HFpEF will hold lasix today o/a of hypotension. Metoprolol also held on metoprolol. 2D echo: EF of 45%, with 2+ mitral valve insufficiency, and RVSP of 40mmHg, and moderately dilated LV, with mild left segmental systolic function. BIPAP prn. cardiology on board; recommend heart cath tomorrow #Hypotension BP this morning is down in the 90s/30s patient is asymptomatic check orthostatics hydrate with IVF bolus of 500cc x 1 hold BP meds and IV lasix. #acute on chronic HFpEF: as above. lasix held as above. #Type 2 diabetes mellitus: continue home insulin dose. ISS. Accuchecks ACHS #BPH: on flomax. Hold flomax o/a of hypotension. #Restless leg syndrome: on pramipexole #Hypertension; on metoprolol #hyperlipidemia: On pravastatin. 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 Stable. #CAD s/p stents: On aspirin and statin as well as metoprolol. metoprolol held as above. DVT prophylaxis: Lovenox Inpatient E&M: 13565 [facility] Hosp L3
--- NOTE | 2020-09-16 11:34 | PCM.PN.CARD ---
Subjectve: The patient states he feels better today with respect to his breathing. He is also no longer having ongoing chest discomfort. Objective: Vital Signs Temp Pulse Resp BP Pulse Ox 97.7 F L 62 18 140/50 H 95 09/16/20 09:34 09/16/20 10:42 09/16/20 09:34 09/16/20 10:28 09/16/20 09:34 Oxygen Flow Rate (L/min) 1 Oxygen Delivery Method Room Air Weight: 304 lb 14.389 oz Body Mass Index (BMI) 40.8 Finger Stick Blood Glucose 250 Intake and Output for Last 24 Hours 09/14/20 09/15/20 09/16/20 23:59 23:59 23:59 Intake Total 15.8 / 135.8 920 / 1040 180 / 180 Output Total 3250 / 3800 3925 / 5425 1999 Balance -3234.2 / -3664.2 -3005 / -4385 -1820 / -1820 General: Awake, Cooperative, No Acute Distress, Obese HEENT: Atraumatic, Normocephalic, PERRL, EOMI, Sclera Non Icteric Neck: Supple, Good ROM Lungs: Clear to auscultation Cardiovascular: Regular Rhythm, Normal S1, Normal S2 Abdomen: Bowel Sounds Present, Soft Extremities: No edema Psych/Mental Status: Memory Loss 09/16/20 05:27: WBC Cancelled, Corrected WBC Cancelled, RBC Cancelled, Hgb Cancelled, Hct Cancelled, MCV Cancelled, MCH Cancelled, MCHC Cancelled, Plt Count Cancelled, MPV Cancelled, Immature Gran % (Auto) Cancelled, Neut % (Auto) Cancelled, Lymph % (Auto) Cancelled, [place] % (Auto) Cancelled, Eos % (Auto) Cancelled, Baso % (Auto) Cancelled, Absolute Neuts (auto) Cancelled, Total Counted Cancelled, Neutrophils % (Manual) Cancelled, Band Neutrophils % Cancelled, Lymphocytes % (Manual) Cancelled, Monocytes % (Manual) Cancelled, Eosinophils % (Manual) Cancelled, Basophils % (Manual) Cancelled, Metamyelocytes % Cancelled, Myelocytes % Cancelled, Promyelocytes % Cancelled, Blast Cells % Cancelled, Plasma Cell % (Manual) Cancelled, Other Cells % Cancelled, Nucleated RBC % Cancelled 09/16/20 05:27: Sodium 136, Potassium 3.8, Chloride 105, Carbon Dioxide 27.0, Anion Gap 4 L, BUN 17, Creatinine 0.86, Est GFR (MDRD) Af Amer 112, Est GFR (MDRD) Non-Af 93, BUN/Creatinine Ratio 19.7, Glucose 177 H, Calcium 9.2 09/16/20 06:45: WBC 7.9, RBC 4.58 L, Hgb 12.9 L, Hct 42.5, MCV 92.8, MCH 28.2, MCHC 30.4 L, Plt Count 203, MPV 11.3, Immature Gran % (Auto) 0.500, Neut % (Auto) 65.6, Lymph % (Auto) 22.0, [place] % (Auto) 9.5, Eos % (Auto) 1.8, Baso % (Auto) 0.6, Absolute Neuts (auto) 5.2, Nucleated RBC % 0 Rhythm: Sinus rhythm Medical Necessity - Tobacco Use Smoking Status: Current every day smoker Assessment/Plan 1. Acute CHF/pulmonary edema It appears the patient developed underlying acute CHF/pulmonary edema. He is being evaluated. His troponin I level has been negative. His BNP level was somewhat elevated. He has undergone evaluation with a transthoracic echocardiogram with the findings as deviously noted. He is continuing medical management. He has been started on additional medical therapy with Ranexa and Entresto. His medications and dosages may need to be adjusted based upon his clinical course, vital signs, etc. 2. CAD status post PCI status post CABG The patient has history of underlying extensive cardiovascular disease as previously described by his invasive studies. At the moment he is not having ongoing chest discomfort. His initial troponin I level was negative. His ECG is as noted. His echocardiogram does suggest left ventricular regional wall motion abnormalities with diminished LV systolic function/LVEF. He will continue medical management. He apparently has been unable to take nitrates based upon allergic reaction with concerns of hives. He is on beta-blockers. He has been started on additional medical therapy with Ranexa and Entresto. He is on lipid-lowering agents. He may need reevaluation in the cardiac catheterization laboratory. 3. Ischemic mediated cardiomyopathy He does have an ischemic mediated cardiomyopathy. It appears that his LV systolic function was markedly depressed in the past. It was reported as improved. Based upon his current echocardiogram it appears his LV demonstrates regional wall motion analysis and an LVEF that has declined. 4. Hyperlipidemia He will continue risk factor modification medical therapy. 5. Hypertension His blood pressure will be followed with his medicines being adjusted accordingly. 6. COPD He does have a history of COPD. He will need to continue medical management per his other physicians. 7. CVA Apparently there is a history of remote CVA. His does state that this has affected his memory. Overall, at the present time, he will continue medical management with adjustment based upon his clinical response, vital signs, etc. He will be followed by cardiology. Depending upon his clinical course consideration will be given as to whether he requires additional cardiovascular evaluation such as repeat diagnostic cardiac catheterization. Comment: The patient's case has been discussed and reviewed with the patient and his [id number] who is a [facility] RN. This note was generated using a voice recognition system and there may be incorrect words, spelling or punctuation that were not noted when reviewing the office note prior to saving.
[2020-09-16 11:40] LABS: Bedside Glucose 245 mg/dL (70-110)
[2020-09-16 16:51] LABS: Bedside Glucose 168 mg/dL (70-110)
[2020-09-16] MEDS: MELATONIN 3 MG TABLET PO (21:24)
[2020-09-16] MEDS: Pravastatin 80 MG Tablet PO (21:24)
[2020-09-16] MEDS: Pramipexole Di-HCl 0.25 MG Tablet PO (21:25)
[2020-09-16 21:36] LABS: Bedside Glucose 187 mg/dL (70-110)
[2020-09-16] MEDS: Metoprolol Tartrate 50 MG Tablet PO (22:10)
[2020-09-16] MEDS: SACUBITRIL/VALSARTAN 24/26 MG TABLET 1 EACH PO (22:10)
[2020-09-17] VITALS (20 sets, daily range): BP systolic 111–151; BP diastolic 56–90; PULSE 61–80; RESP 12–20; TEMP 36.2–36.7; O2SAT 93–100
--- NOTE | 2020-09-17 05:00 | EKG12_ITS ---
Test Reason : AM EKG Blood Pressure : / mmHG Vent. Rate : 075 BPM Atrial Rate : 075 BPM P-R Int : 184 ms QRS Dur : 108 ms QT Int : 440 ms P-R-T Axes : 050 054 184 degrees QTc Int : 491 ms Normal sinus rhythm ST & T wave abnormality, consider inferior ischemia ST & T wave abnormality, consider anterolateral ischemia Prolonged QT Abnormal ECG Confirmed by SANDRA MATTA, ANTONY ([id number]), book editor EMMANUEL CONTRERAS ([id number]) on 09/20/2020 11:22:28 AM Referred By: DR SCHREIBER Confirmed By:ANTONY FLORES MD
[2020-09-17 05:19] LABS: Absolute Lymphocyte Count 1.61 X10^3/uL (0.83-4.51); Absolute Neutrophil Count 4.7 X10^3/uL (2.0-7.7); Basophil# 0.05 X10^3/uL; Basophil% 0.7 % (0-1); Eosinophil# 0.16 X10^3/uL; Eosinophils% 2.2 % (0-5); Hematocrit 40.3 % (40-54); Hemoglobin 12.2 g/dL (13.0-16.5); Lymphocyte # 1.61 X10^3/ul (4.0); Lymphocyte % 22.4 % (19-41); Mean Corp Hgb Conc 30.3 g/dL (32-36); Mean Corpuscular Hgb 27.9 pg (27.0-32.0); Mean Platelet Vol. 11.4 fl (6.2-12.0); Monocyte# 0.67 X10^3/uL; Monocyte% 9.3 % (0-10); NRBC Flagged by Analyzer 0 % (0-5); Neutrophil # 4.67 X10^3/uL (2.7-7.7); Neutrophil % 65.1 % (47-70); Platelet Count 199 K/mm3 (150-450); RBC Distribution Width CV 14.3 % (11.6-14.6); RBC Distribution Width SD 48.5 fl (35.1-43.9); Red Blood Count 4.38 M/mm3 (4.6-6.2); White Blood Count 7.2 K/mm3 (4.4-11.0)
[2020-09-17 05:33] LABS: Anion Gap 5 (5-15); BUN 17 mg/dL (7-18); BUN/Creat Ratio 14.9 RATIO (10-20); Calcium,Total 9.1 mg/dL (8.5-10.1); Chloride 104 mmol/L (98-107); Creatinine, Serum 1.14 mg/dL (0.70-1.30); EST Glomerular Filtration Rate 67 mL/min (>60); Est Glom Filt Rate - Afr Amer 82 mL/min (>60); Estimated Creatinine Clearance 68.14 ml/min; Glucose 224 mg/dL (74-106); Potassium 4.3 mmol/L (3.5-5.1); Sodium Level 137 mmol/L (136-145)
[2020-09-17] MEDS: Aspirin 81 MG TAB.CHEW PO (06:17)
[2020-09-17] MEDS: Magnesium Chloride 64 MG Delay Rel.Tablet 128 MG PO ×2 (06:17→13:22)
[2020-09-17 06:56] LABS: Bedside Glucose 225 mg/dL (70-110)
[2020-09-17] MEDS: Budesonide Respules 0.5 MG/2 ML AMPUL.NEB. INHALATION (07:16)
--- NOTE | 2020-09-17 08:06 | NURSING ---
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
[2020-09-17] MEDS: Metoprolol Tartrate 50 MG Tablet PO (08:09)
[2020-09-17] MEDS: Ranolazine 500 MG Tablet PO (08:09)
[2020-09-17] MEDS: SACUBITRIL/VALSARTAN 24/26 MG TABLET 1 EACH PO (08:09)
--- NOTE | 2020-09-17 10:10 | CL.D_ITS ---
Patient Name: FABY GARCIA Study Date: 09/17/2020 Performing: Prashanth Peña MD Ht: 72.83 inches 185 cm : 1950 Wt: 302.03 lbs 137 kg Age: 70 Gender: male BSA: 2.56 PROCEDURE(S) PERFORMED RT28-GYX/COR/LV CLINICAL PROFILE AND INDICATIONS Indications: Suspected CAD Heart Failure: NYHA Class: 3, Newly Diagnosed: No, Heart Failure Type: Systolic Stress/Imaging Stress/Image Study Performed: No CAD Presentations: Symptom unlikely to be ischemic. CONCLUSIONS Severe kashia vessel disease with distal left main stenosis, totally occluded mid circumflex artery, totally occluded right coronary artery, left ventricular systolic dysfunction. RECOMMENDATIONS Would consider high risk left main stenting with assist device such as Impella. Will transfer patien t to a tertiary care facility for consideration for the above. If left ventricular ejection fraction does not improve would also need to consider an ICD. DESCRIPTION OF PROCEDURE The patient arrived to the procedure lab. The risks and benefits of the procedure as well as a full d escription of our services here and current unavailability of surgical backup were fully explained to the patient and/or their significant other prior to the catheterization. The Timeout was completed, verifying the correct patient and procedure. The patient's procedural site was prepped and draped in the usual fashion. Local anesthetic was given subcutaneously to right groin region with Lidocaine 2%. Using a modified Seldinger technique, arterial access was obtained via the right femoral artery, a 5 Fr sheath was inserted. Left Coronary Artery selective angiography was performed in multiple views u sing a 5 Fr. JL4 catheter. Right Coronary Artery selective angiography was then performed in multiple views using a 5 Fr. 3DRC (Joseph) catheter. Left Ventriculography was performed in JUDD projection using a 5 Fr. Pigtail catheter. LV to AO pullback pressures were then recorded.The arterial sheath was pulled and manual compression applied until hemostasis is achieved. CORONARY ANGIOGRAPHY DOMINANCE: Right Dominant LEFT HEART ASSESSMENT Left Ventricular Ejection Fraction: by LV Gram 25 % Inferior Mid Akinesis. Inferior Basal Akinesis. Anterior Hypokinesis - Moderate. Apical Hypokinesis - Moderate Depressed Left Ventricular systolic function LVEDP: 20 mmHg LEFT MAIN: Mild calcification, Distal left main with 60 to 70% stenosis LEFT ANTERIOR DESCENDING ARTERY: PROX LAD: Previously placed stent has an instent 40 % restenosis MID LAD: Mild luminal irregularities less than 30% DISTAL LAD: Moderate luminal irregularities up to 50% CIRCUMFLEX ARTERY: OSTIAL CIRC: 40 % Stenosis MID CIRC: is occluded OM 1: Proximal - Mild disease noted in the large obtuse marginal branch RIGHT CORONARY ARTERY: OSTIAL RCA: is occluded GRAFTS: Radial graft to the LAD is totally occluded Saphenous Vein graft to the RCA is totally occluded Saphenous Vein graft to the 2nd OM is totally occluded COLLATERAL FLOW: Collateral flow from Left to Right VALVE FINDINGS: Mitral Valve Insufficiency - Grade 2 COMPLICATIONS No Complications PROCEDURE MEDICATIONS Versed 1 mg IV Oxygen: 2 L/min via nasal cannula SUMMARY OF HEMODYNAMIC DATA Time AIR REST ECG 09:32:11 AO 113/53 (75) SA 09:49:03 LV 122/9, 20 09:55:52 LV 118/7, 22 09:56:00 LV 112/13, 27 09:56:59 LVp 115/5, 24 09:57:03 AOp 121/55 (81) 09:57:08 Signed By Prashanth Peña MD On 09/17/2020 10:09:42 AM Prashanth Peña MD
--- NOTE | 2020-09-17 10:11 | PN.CARD_ITS ---
Subjectve: Patient seen and evaluated. Underwent cardiac catheterization this morning. Objective: Vital Signs Temp Pulse Resp BP Pulse Ox 97.2 F L 67 18 129/56 H 95 09/17/20 08:00 09/17/20 08:09 09/17/20 08:00 09/17/20 08:09 09/17/20 08:00 Oxygen Flow Rate (L/min) 2 Oxygen Delivery Method Room Air Weight: 302 lb 14.642 oz Body Mass Index (BMI) 40.8 Finger Stick Blood Glucose 250 Intake and Output for Last 24 Hours 09/15/20 09/16/20 09/17/20 23:59 23:59 23:59 Intake Total 920 / 1040 1560 / 1560 0 / 0 Output Total 3925 / 5425 4000 / 4000 425 / 425 Balance -3005 / -4385 -2440 / -2440 -425 / -425 General: Awake, Alert, Oriented x 3 HEENT: PERRL, EOMI, Sclera Non Icteric Neck: Supple, Good ROM, No Lymph Node Enlargement Lungs: Clear to auscultation Cardiovascular: Regular Rhythm, Normal S1, Normal S2, No Murmurs, No Rubs, No Gallops Vascular: No Carotid Bruits, Normal Femoral Pulses, Normal Radial Pulses, Normal Dorsalis Pedal Pulse, Normal Posterior Tibial Pulses Abdomen: Bowel Sounds Present, Soft, Non Tender, No HSM, No Organomegaly Extremities: No Cyanosis, No Clubbing, Bilateral Edema +1 Musculoskeletal: No Erythema Neurological: No Focal Motor or Sensory Deficit 09/17/20 05:12: WBC 7.2, RBC 4.38 L, Hgb 12.2 L, Hct 40.3, MCV 92.0, MCH 27.9, MCHC 30.3 L, Plt Count 199, MPV 11.4, Immature Gran % (Auto) 0.300, Neut % (Auto) 65.1, Lymph % (Auto) 22.4, Wood % (Auto) 9.3, Eos % (Auto) 2.2, Baso % (Auto) 0.7, Absolute Neuts (auto) 4.7, Nucleated RBC % 0 09/17/20 05:12: Sodium 137, Potassium 4.3, Chloride 104, Carbon Dioxide 28.0, Anion Gap 5, BUN 17, Creatinine 1.14, Est GFR (MDRD) Af Amer 82, Est GFR (MDRD) Non-Af 67, BUN/Creatinine Ratio 14.9, Glucose 224 H, Calcium 9.1 Rhythm: EKG: ECHO: Stress Test: Cardiac Cath: PCI: CT Surgery: Holter monitor: EPS: PPM: CXR: Chest CT Scan: Medical Necessity - Tobacco Use Smoking Status: Current every day smoker Assessment/Plan 1. Acute CHF/pulmonary edema It appears the patient developed underlying acute CHF/pulmonary edema. He was diuresed appropriately and appears to be doing well. His echocardiogram demonstrated reduced ejection fraction and his cardiac catheterization demonstrates further reduction in left ventricular systolic function. * Will continue Entresto and beta-stepan * Continue diuretic 2. CAD status post PCI status post CABG The patient has history of underlying extensive cardiovascular disease as previously described by his invasive studies. * He underwent cardiac catheterization today which demonstrates a distal left main coronary artery stenosis His left anterior descending artery stent is patent with mild in-stent stenosis. His circumflex artery is totally occluded in the midsegment with a first obtuse marginal branch which is patent. His right coronary artery is totally occluded with [id number] collaterals. He does have severe left ventricular systolic dysfunction. Based on the above angiographic findings he will be considered to be transferred to a tertiary care facility for high risk left main coronary artery stenting. 3. Ischemic mediated cardiomyopathy He does have an ischemic mediated cardiomyopathy. It appears that his LV systolic function was markedly depressed in the past. * This has been confirmed with the left ventriculogram. If there is no significant improvement to an ejection fraction above 35% in a month and a half to be considered for an ICD implantation. 4. Hyperlipidemia He will continue risk factor modification medical therapy. 5. Hypertension His blood pressure will be followed with his medicines being adjusted accordingly. Thank you for allowing me to participate in the care of your patient. Please don't hesitate to call if any issues arise.
--- NOTE | 2020-09-17 11:24 | CASEMGMT ---
According to the [facility] website, the following are in-network tertiary facilities: [facility], [place], [facility], [facility], [facility], [facility], and . Daryl JENSEN CM
--- NOTE | 2020-09-17 11:55 | CASEMGMT ---
Pt will be transferred to [facility] called Marie at [facility] to let her know. REILLY Lema
[2020-09-17 12:26] LABS: Bedside Glucose 179 mg/dL (70-110)
--- NOTE | 2020-09-17 12:27 | DS.PCM_ITS ---
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) Date of Admission: 09/14/20 Date of Discharge: 09/17/20 - Primary Discharge Diagnosis Acute Problems: Active Problems (Last Reviewed 07/31/20 @ 14:22 by Michelle Edwards) acute hypoxic respiratory failure Acute on chronic HFrEF CAD - Secondary Discharge Diagnosis Chronic Problems: Chronic Problems (Last Reviewed 07/31/20 @ 14:22 by Michelle Edwards) Cardiomyopathy, ischemic (Chronic) Atherosclerosis of coronary artery bypass graft without angina pectoris (Chronic) Chronic diastolic (congestive) heart failure (Chronic) Essential (primary) hypertension (Chronic) Hyperlipidemia (Chronic) CVA (cerebral vascular accident) (Chronic) Residual right-sided hemiplegia COPD (chronic obstructive pulmonary disease) (Chronic) Hospital Course and Treatment Consultations 09/14/20 07:55 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 01/29/18 - Laparoscopic diverting end sigmoid colostomy. Procedures: 2-D Echocardiogram, Cardiac catheterization Summary of Care Provided: The patient is a 70 year old M presented on the th with shortness of breath. Patient was found to have acute exacerbation of CHF and was started on diuresis with furosemide. Patient was continued on that until his blood pressure dropped down and was held. Patient had echocardiogram that showed an EF of 45%. Patient was evaluated by cardiology and patient was taken to heart cathet erization today and was found to have left main disease. reached out to cardiology at [facility] and patient was accepted by Dr. Blanton. Patient will be transferred to [facility] in stable condition for high-risk PCI. 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 afebrile. HEENT: Atraumatic, Normocephalic Oral: Moist Mucosa, No Gingival or Mucosal Lesions/ Ulcerations Neck: No Nodes, Thyroid Normal Size and Texture Lungs: Normal air movement, - - coarse breath sounds bilaterally. Cardiovascular: Regular rate, Regular Rhythm, Normal S1, Normal S2, No murmurs Abdomen: Bowel Sounds Present, Soft, Non Tender, Non-Distended, No Hepato-s plenomegaly Extremities: No edema, No Calf Tenderness Microbiology Past 72 Hours 09/14/20 11:04 Mucosa - Nose SARS-CoV-2 Antigen (Rapid) - Final Laboratory Results 09/16/20 16:39: POC Glucose 168 H 09/16/20 21:23: POC Glucose 187 H 09/17/20 05:12: WBC 7.2, RBC 4.38 L, Hgb 12.2 L, Hct 40.3, MCV 92.0, MCH 27.9, MCHC 30.3 L, RDW Std Deviation 48.5 H, RDW Coeff of Sherin 14.3, Plt Count 199, MPV 11.4, Immature Gran % (Auto) 0.300, Neut % (Auto) 65.1, Lymph % (Auto) 22.4, [place] % (Auto) 9.3, Eos % (Auto) 2.2, Baso % (Auto) 0.7, Absolute Neuts (auto) 4.7, Absolute Lymphs (auto) 1.61, Nucleated RBC % 0 09/17/20 05:12: Sodium 137, Potassium 4.3, Chloride 104, Carbon Dioxide 28.0, Anion Gap 5, BUN 17, Creatinine 1.14, Estim Creat Clear Calc 68.14, Est GFR (MDRD) Af Amer 82, Est GFR (MDRD) Non-Af 67, BUN/Creatinine Ratio 14.9, Glucose 224 H, Calcium 9.1 09/17/20 06:49: POC Glucose 225 H 09/17/20 11:37: POC Glucose 179 H Current Medications Acetaminophen (Acetaminophen 500 Mg Tablet) 1,000 mg PO Q6H PRN PRN PRN Reason: Pain Score 1-3 Last Admin: 09/16/20 08:09 Dose: 1,000 mg Documented by: Amantadine HCl (Amantadine 100 Mg Capsule) 100 mg PO DAILY [facility] Last Admin: 09/16/20 09:38 Dose: 100 mg Documented by: Aspirin (Aspirin 81 Mg Tab.Chew) 81 mg PO DAILY@0800 [facility] Last Admin: 09/17/20 06:17 Dose: 81 mg Documented by: Bisacodyl (Bisacodyl 10 Mg Suppository) 10 mg RC DAILY PRN PRN Reason: CONSTIPATION Budesonide (Budesonide Respules 0.5 Mg/2 Ml Ampul.Neb.) 0.5 mg INHALATION DAILY.RT [facility] Last Admin: 09/17/20 07:16 Dose: 0.5 mg Documented by: Cholecalciferol (Cholecalciferol (Vit D3) 25 Mcg Tablet (1,000 Units)) 25 mcg PO DAILYCM [facility] Last Admin: 09/16/20 08:10 Dose: 25 mcg Documented by: Dextrose (Dextrose 50%-Water 25 Gm/50 Ml Disp.Syrin) 0 gm IV X1 PRN; Protocol PRN Reason: Hypoglycemia Enoxaparin Sodium (Enoxaparin 40 Mg/0.4 Ml Syringe) 40 mg SC DAILY [facility] Last Admin: 09/16/20 09:39 Dose: 40 mg Documented by: Fluoxetine HCl (Fluoxetine 20 Mg Capsule) 40 mg PO DAILY [facility] Last Admin: 09/16/20 09:38 Dose: 40 mg Documented by: Glucagon (Glucagon 1 Mg/Ml Syringe) 1 mg IM .X1 PRN PRN Reason: Hypoglycemia Heparin Sodium (Beef Lung) (Heparin Lock 500 Unit/5 Ml In 10 Ml Syringe) 500 unit IV UD PRN PRN Reason: HEPARIN FLUSH Sodium Chloride () 1,000 mls @ 15 mls/hr IV .Q48H [facility] Last Admin: 09/17/20 10:56 Dose: Not Given Documented by: Insulin Glargine (Insulin Glargine 100 Units/Ml Pen) 10 units SC QHS [facility] Last Admin: 09/16/20 21:25 Dose: 10 units Documented by: Insulin Glargine (Insulin Glargine 100 Units/Ml Pen) 12 units SC BREAKFAST [facility] Last Admin: 09/16/20 08:11 Dose: 12 unit Documented by: Insulin Human Lispro (Insulin Lispro 100 Unit/Ml Insuln.Pen) 0 unit SC ACHS [facility]; Protocol Last Admin: 09/17/20 11:42 Dose: Not Given Documented by: Insulin Human Lispro (Insulin Lispro 100 Unit/Ml Insuln.Pen) 12 unit SC TIDCM [facility] Last Admin: 09/17/20 11:42 Dose: Not Given Documented by: Labetalol HCl (Labetalol (Prefilled) 20 Mg/4 Ml) 5 mg IV X1 PRN PRN Reason: SBP > 160 prior to sheath pull Stop: 09/19/20 10:10 Magnesium Chloride (Magnesium Chloride 64 Mg Delay Rel.Tablet) 128 mg PO TID [facility] Last Admin: 09/17/20 06:17 Dose: 128 mg Documented by: Melatonin (Melatonin 3 Mg Tablet) 3 mg PO QHS [facility] Last Admin: 09/16/20 21:24 Dose: 3 mg Documented by: Metoprolol Tartrate (Metoprolol Tartrate 50 Mg Tablet) 50 mg PO BID [facility] Last Admin: 09/17/20 08:09 Dose: 50 mg Documented by: Nystatin (Nystatin Powder 15gm Bottle) 1 applic TOPICAL BID [facility]; Protocol Last Admin: 09/16/20 21:24 Dose: 1 applic Documented by: Ondansetron HCl (Ondansetron 4 Mg/2 Ml Vial) 4 mg IV Q8H PRN PRN PRN Reason: NAUSEA/VOMITING Oxycodone HCl (Oxycodone 5 Mg Tablet) 5 mg PO Q6H PRN PRN PRN Reason: PAIN 1-10 Last Admin: 09/16/20 07:03 Dose: 5 mg Documented by: Pantoprazole Sodium (Pantoprazole Sodium 40 Mg Tablet) 40 mg PO DAILY [facility] Last Admin: 09/16/20 09:38 Dose: 40 mg Documented by: Potassium Chloride (Potassium Chloride Oral Tablet 20 Meq) [facility] Last Admin: 09/16/20 08:10 Dose: 20 meq Documented by: Pramipexole Dihydrochloride (Pramipexole Di-Hcl 0.25 Mg Tablet) 0.25 mg PO QHS [facility] Last Admin: 09/16/20 21:25 Dose: 0.25 mg Documented by: Pravastatin Sodium (Pravastatin 80 Mg Tablet) 80 mg PO QHS [facility] Last Admin: 09/16/20 21:24 Dose: 80 mg Documented by: Ranolazine (Ranolazine 500 Mg Tablet) 500 mg PO BID [facility] Last Admin: 09/17/20 08:09 Dose: 500 mg Documented by: Sacubitril/Valsartan (Sacubitril/Valsartan 24/26 Mg Tablet) 1 each PO BID [facility] Last Admin: 09/17/20 08:09 Dose: 1 each Documented by: Senna/Docusate Sodium (Senna/Docusate Sodium 1 Tablet) 2 tablet PO DAILY [facility] Last Admin: 09/16/20 09:38 Dose: 2 tablet Documented by: Sodium Chloride (0.9% Saline Lock 10 Ml Syringe) 10 - 40 ml IV UD PRN PRN Reason: SALINE FLUSH Last Admin: 09/15/20 14:00 Dose: 10 ml Documented by: Sodium Chloride (0.9% Saline Lock 10 Ml Syringe) 10 - 40 ml IV UD PRN PRN Reason: SALINE FLUSH Discharge Diet: Low fat/ Low Cholesterol Discharge Activity: Return to Normal Activity Home Medications: Medications to take at Discharge Amantadine [Symmetrel] 100 mg PO DAILY 04/17/18 Metoprolol Tartrate [Lopressor (beta stepan)] 100 mg PO TID 04/17/18 Pantoprazole Sodium [Protonix] 40 mg PO DAILY 04/17/18 Pramipexole Di-HCl [Mirapex] 0.25 mg PO QHS 04/17/18 Pravastatin Sodium 80 mg PO QHS 04/17/18 Tamsulosin HCl [Flomax] 0.4 mg PO DAILY 04/17/18 furosemide 40 mg tablet 40 mg PO BID tab 06/17/18 potassium chloride 20 mEq tablet,extended release(part/cryst) 20 meq PO DAILY 90 Days #90 tab 06/17/18 Fluoxetine [Prozac] 40 mg PO DAILY 02/20/19 Nitroglycerin 0.4 mg SL PRN PRN 02/20/19 Aspirin [Aspirin, Baby] 81 mg PO DAILY@0800 02/24/19 Acetaminophen [Tylenol] 1,000 mg PO Q6H PRN PRN tab 03/03/19 Menthol/Lanolin/Calamine/Znox [Calmoseptine Ointment] 1 applic TOPICAL 0600,2200 tube 03/03/19 Bisacodyl 10 mg RC DAILY PRN PRN 09/14/19 Insulin Aspart [Novolog Flexpen (BKC)] 0 - 11 units SC DAILY 09/14/19 Insulin Aspart [Novolog Flexpen (BKC)] 12 units SC TIDCM 09/14/19 Magnesium Oxide [Mgo] 400 mg PO TID 09/14/19 Oxycodone [Oxyir] 5 mg PO Q6H PRN PRN 09/14/19 Budesonide [Pulmicort] 0.5 mg IH DAILY 01/02/20 Sennosides/Docusate Sodium [Senna-S Laxative Tablet] 2 ea PO DAILY 01/02/20 Cholecalciferol (VIT D3) [Vitamin D] 1,000 unit PO DAILY 09/14/20 Insulin Glargine [Lantus (BKC)] 10 units SC QHS 09/14/20 Insulin Glargine [Lantus SoloStar Pen] 12 units SC BREAKFAST 09/14/20 Melatonin 3 mg PO DAILY 09/14/20 Primary Care Physician: Julissa Lamb MD [Primary Care Provider] - Disposition: Acute care Hospital Minutes spent on discharge:: 32 Patient Condition:: Stable Medical Necessity - Tobacco Use Smoking Status: Current every day smoker Meaningful Use Info Meaningful Use Diagnoses (Choose all that apply): CHF - CHF DANII/ARB ordered at discharge?: No Reason DANII/ARB not ordered?: Hypotension Documented LVEF (%): 45 Inpatient E&M: [id number] Disch Hosp
[2020-09-17] MEDS: Potassium Chloride Oral Tablet 20 MEQ PO (12:48)
[2020-09-17] MEDS: Cholecalciferol (VIT D3) 25 MCG TABLET (1,000 UNITS) PO (12:49)
[2020-09-17] MEDS: Senna/Docusate Sodium 1 Tablet 2 TABLET PO (12:50)
[2020-09-17] MEDS: FLUoxetine 20 MG Capsule 40 MG PO (12:50)
[2020-09-17] MEDS: Amantadine 100 MG Capsule PO (12:50)
[2020-09-17] MEDS: Pantoprazole Sodium 40 MG Tablet PO (12:50)
[2020-09-17] MEDS: Nystatin Powder 15gm Bottle 1 APPLIC TOPICAL (12:54)
--- NOTE | 2020-09-17 14:22 | CHAPLAIN ---
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
--- NOTE | 2020-09-17 14:56 | PHA.DC.MR ---
Pharmacy Service has performed discharge medication reconciliation for this patient. The patient's discharge medication list was reviewed for discrepancies and discrepancies were resolved. Home Medications Amantadine [Symmetrel] 100 mg PO DAILY 04/17/18 Metoprolol Tartrate [Lopressor (beta stepan)] 100 mg PO TID 04/17/18 Pantoprazole Sodium [Protonix] 40 mg PO DAILY 04/17/18 Pramipexole Di-HCl [Mirapex] 0.25 mg PO QHS 04/17/18 Pravastatin Sodium 80 mg PO QHS 04/17/18 Tamsulosin HCl [Flomax] 0.4 mg PO DAILY 04/17/18 furosemide 40 mg tablet 40 mg PO BID tab 06/17/18 potassium chloride 20 mEq tablet,extended release(part/cryst) 20 meq PO DAILY 90 Days #90 tab 06/17/18 Fluoxetine [Prozac] 40 mg PO DAILY 02/20/19 Nitroglycerin 0.4 mg SL PRN PRN 02/20/19 Aspirin [Aspirin, Baby] 81 mg PO DAILY@0800 02/24/19 Acetaminophen [Tylenol] 1,000 mg PO Q6H PRN PRN tab 03/03/19 Menthol/Lanolin/Calamine/Znox [Calmoseptine Ointment] 1 applic TOPICAL 0600,2200 tube 03/03/19 Bisacodyl 10 mg RC DAILY PRN PRN 09/14/19 Insulin Aspart [Novolog Flexpen (BKC)] 0 - 11 units SC DAILY 09/14/19 Insulin Aspart [Novolog Flexpen (BKC)] 12 units SC TIDCM 09/14/19 Magnesium Oxide [Mgo] 400 mg PO TID 09/14/19 Oxycodone [Oxyir] 5 mg PO Q6H PRN PRN 09/14/19 Budesonide [Pulmicort] 0.5 mg IH DAILY 01/02/20 Sennosides/Docusate Sodium [Senna-S Laxative Tablet] 2 ea PO DAILY 01/02/20 Cholecalciferol (VIT D3) [Vitamin D] 1,000 unit PO DAILY 09/14/20 Insulin Glargine [Lantus (BKC)] 10 units SC QHS 09/14/20 Insulin Glargine [Lantus SoloStar Pen] 12 units SC BREAKFAST 09/14/20 Melatonin 3 mg PO DAILY 09/14/20
--- NOTE | 2020-09-17 14:56 | NURSING ---
Colostomy appliance changed to the left lower abdomen. stoma is pink and moist. stoma sits slightly above the skin level. peristomal skin is intact. patient had a small amount of formed brown stool noted in the appliance. cleansed peristomal skin with warm water. pat dry. placed a new 2 piece Dianne appliance with a small amount of stoma paste. pt tolerated well. present at bedside.
--- NOTE | 2020-09-17 16:15 | NURSING ---
Report called to nurse Mir for pt transfer to [facility]
[2020-09-17] MEDS: Insulin Lispro 100 UNIT/ML INSULN.PEN SC (16:39)
[2020-09-17] MEDS: Insulin Lispro 100 UNIT/ML INSULN.PEN 12 UNIT SC (16:40)
[2020-09-17 16:50] LABS: Bedside Glucose 252 mg/dL (70-110)
== END 2020-09-17 19:18 | disposition short-term general hospital (02) | DRG 286 ==
LOC: ED 02:15 → PCU 02:47
PROVIDERS: Internal Medicine Cardiovascular Disease; Student in an Organized Health Care Education/Training Program; Admitting Provider Family Medicine; Emergency Provider Emergency Medicine; PCP Family Medicine
DX: I11.0 Hypertensive heart disease with heart failure (principal); J96.01 Acute respiratory failure with hypoxia; I25.810 Atherosclerosis of coronary artery bypass graft(s) without angina pectoris; I69.951 Hemiplegia and hemiparesis following unspecified cerebrovascular disease affecting right dominant side; Z68.41 Body mass index [BMI] 40.0-44.9, adult; T82.855A Stenosis of coronary artery stent, initial encounter; I50.23 Acute on chronic systolic (congestive) heart failure; I25.5 Ischemic cardiomyopathy; I34.0 Nonrheumatic mitral (valve) insufficiency; I95.9 Hypotension, unspecified; I25.82 Chronic total occlusion of coronary artery; Y83.1 Surgical operation with implant of artificial internal device as the cause of abnormal reaction of the patient, or of later complication, without mention of misadventure at the time of the procedure; Y92.9 Unspecified place or not applicable; Z20.822 Contact with and (suspected) exposure to COVID-19; I25.10 Atherosclerotic heart disease of native coronary artery without angina pectoris; J44.9 Chronic obstructive pulmonary disease, unspecified; E11.65 Type 2 diabetes mellitus with hyperglycemia; E78.5 Hyperlipidemia, unspecified; N40.0 Benign prostatic hyperplasia without lower urinary tract symptoms; G25.81 Restless legs syndrome; K21.9 Gastro-esophageal reflux disease without esophagitis; F32.9 Major depressive disorder, single episode, unspecified; F41.9 Anxiety disorder, unspecified; G47.33 Obstructive sleep apnea (adult) (pediatric); E66.01 Morbid (severe) obesity due to excess calories; F17.200 Nicotine dependence, unspecified, uncomplicated; Z93.59 Other cystostomy status; Z93.3 Colostomy status; Z79.4 Long term (current) use of insulin; Z79.51 Long term (current) use of inhaled steroids; Z79.899 Other long term (current) drug therapy; I25.2 Old myocardial infarction; Z87.820 Personal history of traumatic brain injury; Z95.1 Presence of aortocoronary bypass graft; Z95.5 Presence of coronary angioplasty implant and graft
CPT/HCPCS: 36415; 36600; 71045; 80048; 80053; 82803; 82962; 83880; 84484; 85025; 85610; 85730; 87426; 93005; 93306; 93458; 94002; 94003; 94640; 97162; 97165; 99152; 99153; 99285; 99406; J7040; Q9957; A4216; C1769; C8929; J1940; Q9967

== ENCOUNTER → 2020-12-20 05:00 | Outpatient (REF) | payer MEDICARE, MEDICAID, SELFPAY ==
[2017-02-20 12:18] VITALS: BMI 46.4
[2020-10-10 13:24] VITALS: BMI 40.5
[2020-12-20 07:24] LABS: Hemoglobin 12.1 g/dL (13.0-16.5); Mean Corp Hgb Conc 30.3 g/dL (32-36); Mean Corpuscular Hgb 27.1 pg (27.0-32.0); Mean Corpuscular Volume 89.5 fL (80-94); Platelet Count 198 K/mm3 (150-450); RBC Distribution Width CV 15.2 % (11.6-14.6); RBC Distribution Width SD 49.4 fl (35.1-43.9); Red Blood Count 4.47 M/mm3 (4.6-6.2); White Blood Count 7.1 K/mm3 (4.4-11.0)
[2020-12-20 07:54] LABS: Anion Gap 6 (5-15); BUN 15 mg/dL (7-18); BUN/Creat Ratio 18.6 RATIO (10-20); Calcium,Total 8.8 mg/dL (8.5-10.1); Chloride 103 mmol/L (98-107); Cholesterol 140 mg/dL (200); Creatinine, Serum 0.81 mg/dL (0.70-1.30); EST Glomerular Filtration Rate 100 mL/min (>60); Est Glom Filt Rate - Afr Amer 121 mL/min (>60); Glucose 232 mg/dL (74-106); High Density Lipoprotein 41 mg/dL; Sodium Level 138 mmol/L (136-145); Triglycerides 103 mg/dL; Very Low Density Lipoprotein 21 mg/dL (5-40)
[2020-12-20 08:45] LABS: Hemoglobin A1c 9.2 % (3.8-5.6)
== END ==
LOC: OLS.SW500 05:00
PROVIDERS: PCP Family Medicine; Visit Provider Family Medicine
DX: E11.9 Type 2 diabetes mellitus without complications (principal); E78.5 Hyperlipidemia, unspecified; E55.9 Vitamin D deficiency, unspecified; Z48.815 Encounter for surgical aftercare following surgery on the digestive system
CPT/HCPCS: 36415; 80048; 80061; 82306; 83036; 85027

== ENCOUNTER → 2021-01-21 13:02 | Outpatient (CLI) | payer MEDICARE, MEDICAID, SELFPAY ==
[2017-02-20 12:18] VITALS: BMI 46.4
[2020-10-10 13:24] VITALS: BMI 40.5
--- NOTE | 2021-01-21 13:04 | ECHOD_ITS ---
Reason For Study: CHF Procedure This was a 2D Doppler, Color Flow transthoracic echocardiogram. The study was technically difficult. The study was technically limited. DUE TO BODY HABITUS & DEEP RESPIRATIONS. Contrast injection was performed. Exam performed in department. Left Ventricle Normal LV size. Left ventricular systolic function is normal. The estimated ejection fraction is 55 %. Stage 1 diastolic dysfunction. No regional wall motion abnormalities noted. Right Ventricle Normal RV size. Normal systolic function. Atria The left atrium is mildly enlarged. Normal right atrium. Mitral Valve Normal mitral valve. Tricuspid Valve Normal tricuspid valve. Aortic Valve The aortic valve is not well visualized. Pulmonic Valve The pulmonic valve is not well visualized. Great Vessels Normal aortic root. The pulmonary artery is normal size. Normal inferior vena cava. Pericardium/Pleural No pericardial effusion. Medication 22 gauge I.V. with prn adaptor inserted into left arm. Diluted definity 3.0ml given slow IV push to enhance endocardial definition. MMode/2D Measurements & Calculations LVIDd: 6.4 cm IVSd: 0.90 cm Ao root diam: 3.6 cm LVIDs: 5.4 cm LVPWd: 0.88 cm FS: 15.2 % LAV(MOD-bp): 97.1 ml LA A4 area: 26.2 cm2 LA dimension(2D): 4.6 cm LAV(MOD-bp) Indexed: 37.6 ml/m2 LAV(MOD-sp2): 95.2 ml LAV(MOD-sp4): 95.9 ml RA A4 area: 17.2 cm2 Time Measurements MV dec time: 0.21 sec Doppler Measurements & Calculations MV E max elijah: 93.2 cm/sec Lat Peak E' Elijah: 8.5 cm/sec Med Peak E' Elijah: 7.6 cm/sec MV A max elijah: 114.0 cm/sec E/E' lat: 11.0 E/E' med: 12.3 MV E/A: 0.82 MV V2 max: 162.3 cm/sec Ao V2 max: 114.1 cm/sec LV V1 max: 86.6 cm/sec MV max P.5 mmHg Ao max P.2 mmHg LV V1 max P.0 mmHg MV V2 mean: 109.1 cm/sec MV mean P.2 mmHg MV V2 VTI: 38.1 cm PA V2 max: 86.2 cm/sec ECHO/Echo Complete W/ Contrast Interpretation Summary Normal LV size. Left ventricular systolic function is normal. The estimated ejection fraction is 55 %. Stage 1 diastolic dysfunction. Contrast injection was performed. Ordering Physician: Ramesh Siddiqi Referring Physician: Julissa Lamb Performed By: Karuna Wayne RDCS, RVT
== END ==
PROVIDERS: PCP Family Medicine; Referring Provider Nurse Practitioner Family; Visit Provider Nurse Practitioner Family
DX: I25.5 Ischemic cardiomyopathy (principal); I10 Essential (primary) hypertension; E78.5 Hyperlipidemia, unspecified; Z95.5 Presence of coronary angioplasty implant and graft; Z95.1 Presence of aortocoronary bypass graft
CPT/HCPCS: 93306; Q9957; A4216; C8929; J3490

== ENCOUNTER 2021-02-17 13:14 | Inpatient (IN) | payer MEDICARE, MEDICAID, SELFPAY ==
[2017-02-20 12:18] VITALS: BMI 46.4
[2021-02-17] VITALS (14 sets, daily range): BP systolic 117–201; BP diastolic 64–148; PULSE 67–136; RESP 12–44; TEMP 36.4–36.7; O2SAT 95–100; BMI 40.4; BMI 40.3
--- NOTE | 2021-02-17 13:17 | EKG12_ITS ---
Test Reason : SOB Blood Pressure : / mmHG Vent. Rate : 113 BPM Atrial Rate : 113 BPM P-R Int : 170 ms QRS Dur : 110 ms QT Int : 356 ms P-R-T Axes : 078 068 108 degrees QTc Int : 488 ms Sinus tachycardia Nonspecific ST and T wave abnormality Abnormal ECG Confirmed by SHERYL MATTA, ALVARO ([id number]), index editor EMMANUEL CONTRERAS ([id number]) on 02/18/2021 1:40:23 PM Referred By: FAISAL Confirmed By:ALVARO SAUCEDO MD
--- NOTE | 2021-02-17 13:18 | EDS_ITS ---
HPI History of Present Illness Chief Complaint: Shortness of Breath Informant: EMS Limited: other (Respiratory distress) Onset/Context/Timing Onset: Hours Context: Sudden Onset Timing: Continuous Quality: Difficulty breathing and low pulse ox Location: Nursing facility Current Severity: Severe Maximum Severity: Severe Worsened by: Unknown Relieved by: Nothing Associated Symptoms Associated Symptoms: other (Altered mental status unable to obtain) Narrative Narrative: Patient is a 70-year-old male who resides at correction with history of coronary disease with ischemic cardiomyopathy, systolic and diastolic congestive heart failure, hypertension, hyperlipidemia, CVA, COPD and diabetes per patient. Patient however is not mentating well. Patient's pulse ox was 70% on 6 L. He was 80% on nonrebreather. He is presently on CPAP with a saturation 93%. Prior similar symptoms: Yes (Per EMS family states this is happened before when he is got into [facility]) Recent Illness/Hospitalization: Yes [facility] Medical History Acute on chronic systolic (congestive) heart failure Acute pulmonary edema (09/14/20) Acute respiratory failure with hypoxia (09/14/20) Acute respiratory failure with hypoxia and hypercapnia Alcohol abuse Anemia Atherosclerosis of coronary artery bypass graft without angina pectoris Chronic combined systolic and diastolic CHF (congestive heart failure) COPD (chronic obstructive pulmonary disease) COPD with acute exacerbation CVA (cerebral vascular accident) Dysphagia Essential (primary) hypertension GERD (gastroesophageal reflux disease) History of non-ST elevation myocardial infarction (NSTEMI) (02/21/19) Hyperlipidemia Intraparenchymal hemorrhage of brain Intraventricular hemorrhage Ischemic cardiomyopathy Morbid obesity Nicotine dependence Obstructive sleep apnea Osteomyelitis of sacrum Recurrent UTI (urinary tract infection) Restless leg syndrome Right hemiplegia RLS (restless legs syndrome) Subarachnoid hemorrhage Subdural hematoma Tobacco abuse Traumatic brain injury Type 2 diabetes mellitus Home Medications amantadine HCl 100 mg PO DAILY 04/17/18 [History Last Taken Unknown] metoprolol tartrate 100 mg PO TID 04/17/18 [History Last Taken Unknown] pantoprazole 40 mg PO DAILY 04/17/18 [History Last Taken Unknown] pramipexole 0.25 mg PO QHS 04/17/18 [History Last Taken Unknown] pravastatin 80 mg PO QHS 04/17/18 [History Last Taken Unknown] furosemide 40 mg tablet 40 mg PO BID tab 06/17/18 [History Last Taken Unknown] potassium chloride 20 mEq tablet,extended release(part/cryst) 20 meq PO DAILY 90 Days #90 tab 06/17/18 [History Last Taken Unknown] fluoxetine 40 mg PO DAILY 02/20/19 [History Last Taken Unknown] nitroglycerin 0.4 mg SUBLINGUAL PRN PRN 02/20/19 [History Last Taken Unknown] aspirin 81 mg PO DAILY@0800 02/24/19 [History Last Taken Unknown] acetaminophen 1,000 mg PO Q6H PRN PRN tab 03/03/19 [Rx Last Taken Unknown] menthol-zinc oxide 1 applic TOPICAL 0600,2200 tube 03/03/19 [Rx Last Taken Unknown] bisacodyl 10 mg RC DAILY PRN PRN 09/14/19 [History Last Taken Unknown] insulin aspart U-100 0 - 11 units SC DAILY 09/14/19 [History Last Taken Unknown] insulin aspart U-100 12 units SC TIDCM 09/14/19 [History Last Taken Unknown] magnesium oxide 400 mg PO TID 09/14/19 [History Last Taken Unknown] oxycodone 5 mg PO Q6H PRN PRN 09/14/19 [History Last Taken Unknown] budesonide 0.5 mg IH DAILY 01/02/20 [History Last Taken Unknown] sennosides-docusate sodium 2 ea PO DAILY 01/02/20 [History Last Taken Unknown] cholecalciferol (vitamin D3) 1,000 unit PO DAILY 09/14/20 [History Last Taken Unknown] insulin glargine 10 units SC QHS 09/14/20 [History Last Taken Unknown] insulin glargine 12 units SC BREAKFAST 09/14/20 [History Last Taken Unknown] melatonin 3 mg PO DAILY 09/14/20 [History Last Taken Unknown] carvedilol 12.5 mg tablet 12.5 mg PO BID 10/10/20 [History Last Taken Unknown] sacubitril 24 mg-valsartan 26 mg tablet 1 tab PO BID 10/10/20 [History Last Taken Unknown] ticagrelor 90 mg tablet 90 mg PO BID 10/10/20 [History Last Taken Unknown] Allergy/AdvReac Type Severity Reaction Status Date / Time atorvastatin Allergy PT UNSURE Verified 02/17/21 13:15 OF REACTION cilostazol Allergy Hives Verified 02/17/21 13:15 colestipol Allergy Hives Verified 02/17/21 13:15 diltiazem Allergy Hives Verified 02/17/21 13:15 gemfibrozil Allergy Hives Verified 02/17/21 13:15 naproxen [From Naprosyn] Allergy Hives Verified 02/17/21 13:15 niacin Allergy PT UNSURE Verified 02/17/21 13:15 OF REACTION Nitrate Analogues Allergy Hives Verified 02/17/21 13:15 Penicillins Allergy Hives Verified 02/17/21 13:15 pravastatin Allergy NEEDS Verified 02/17/21 13:15 FOLLOW-UP procainamide Allergy Hives Verified 02/17/21 13:15 rosuvastatin Allergy Hives Verified 02/17/21 13:15 simvastatin Allergy Hives Verified 02/17/21 13:15 isosorbide AdvReac Severe Unknown Verified 02/17/21 13:15 Family History Brother Heart disease Father Heart disease Surgical History Chronic suprapubic catheter H/O coronary artery bypass surgery (2001) History of coronary artery stent placement (09/18/20) History of left heart catheterization (09/17/20) PEG (percutaneous endoscopic gastrostomy) adjustment/replacement/removal Status post osteotomy (01/2018) Social History Smoking Status: Current every day smoker tobacco type: cigarettes how long ago did patient quit smokin, 1ppd second hand exposure: Yes alcohol intake: never caffeine: Yes Type: coffee Number of servings: 3 what type of physical activity do you participate in: none ROS ROS ED Review of Systems ROS Unobtainable: due to mental condition and due to mental status EXAM Physical Exam Const Vital Signs: 02/17/21 13:15 02/17/21 13:20 02/17/21 13:30 Temperature 97.7 F L Temperature Source Temporal Pulse Rate 136 H 131 H 134 H Respiratory Rate 42 H 44 H 43 H Respiratory Effort Respiratory Depth Respiratory Pattern Tachypnea Blood Pressure 194/99 H 194/99 H Blood Pressure Mean 130 130 Pulse Ox 100 100 96 Oxygen Delivery Method Bi-pap Bi-pap Fraction of Inspired Oxygen (FIO2) 65 02/17/21 13:35 02/17/21 13:44 02/17/21 15:04 Temperature 97.7 F L 98.0 F Temperature Source Temporal Temporal Pulse Rate 114 H 102 H Respiratory Rate 41 H 21 H Respiratory Effort Short of Breath Accessory Muscle Use Respiratory Depth Shallow Respiratory Pattern Tachypnea Blood Pressure 201/148 H 125/74 H Blood Pressure Mean 165 91 Pulse Ox 99 97 Oxygen Delivery Method Bi-pap Bi-pap Bi-pap Fraction of Inspired Oxygen (FIO2) 02/17/21 15:19 Temperature Temperature Source Pulse Rate 101 H Respiratory Rate 22 H Respiratory Effort Respiratory Depth Respiratory Pattern Tachypnea Blood Pressure Blood Pressure Mean Pulse Ox 99 Oxygen Delivery Method Fraction of Inspired Oxygen (FIO2) 35 Positive well nourished, well developed and obese General Appearance ED: well developed; Negative for pallor Nutritional Appearance: obese HEENT normocephalic and atraumatic Eyes PERRL and EOMs intact bilaterally General Eye ED: Negative for pale conjunctiva or scleral icterus Neck full ROM and no lymphadenopathy Neck Narrative: Due to body habitus unable to tell if patient has JVD. Trachea is midline. There is no in-store expiratory stridor. Resp Resp Narrative: Patient in respirate distress. There is use of accessory muscles. His breathing is labored. He is diaphoretic. There is little movement of air. There appears to be rales bilaterally. Cardio regular rhythm, S1 normal heart sound, S2 normal heart sound and no murmurs Rate: tachycardic GI non-tender and non-distended Auscultation: normoactive bowel sounds Palpation: soft Back/Spine no CVA tenderness Neuro No oriented x3 and CN's II-XII intact bilaterally Sensorium / Orientation: Negative for alert Speech: Negative for speech normal Psych Activity / Motor Behavior: other Unable to determine Skin General Skin Exam: other Patient is diaphoretic. ; Negative for jaundice or pallor Lesions: no lesions Rashes: no rashes MDM MDM MDM Narrative Medical decision making narrative: Patient is diaphoretic in obvious respiratory distress. Will obtain ABG to assess PO2 and CO2. Paramedics states CO2 was 4. This raises concern for DKA. Chest x-ray was obtained to determine patient does have congestive heart failure versus pneumonia versus other cause of his respiratory distress. Repeat blood work was obtained including CBC, electrolyte panel, troponin opponent and BMP. Need to evaluate for kidney injury, glucose and anion gap. Patient had multiple markedly elevated blood pressure readings. He does have some increased interstitial fluffiness with fluid noted in the fissures. Concern patient is in congestive heart failure. Nitroglycerin drip was ordered. I was informed by patient's nurse that he is now hypotensive. The nitroglycerin was not started. Lactate is elevated this may be due to hypoxia and/or diabetes. BNP is elevated. Troponin is 19 which is within normal limits. CTA per my review reveals no obvious large pulmonary embolus. Study is suboptimal. There is dependent atelectasis noted. The hospitalist has been paged for admission. Lab Data Attestation: I reviewed the patient's lab results. Lab results narrative: White count is slightly elevated. This may be due to stress. Since patient now has borderline hypotension and is fluid overloaded will treat his acute exacerbation of CHF with Lasix. Labs: Laboratory Results - last 24 hr 02/17/21 02/17/21 02/17/21 13:24 13:29 13:29 WBC 11.6 H RBC 4.46 L Hgb 12.3 L Hct 39.6 L MCV 88.8 MCH 27.6 MCHC 31.1 L RDW Std Deviation 48.7 H RDW Coeff of Sherin 15.0 H Plt Count 261 MPV 11.6 Immature Gran % (Auto) 0.400 Neut % (Auto) 75.1 H Lymph % (Auto) 15.[address] [place] % (Auto) 6.3 Eos % (Auto) 2.2 Baso % (Auto) 0.7 Absolute Neuts (auto) 8.7 H Absolute Lymphs (auto) 1.78 Nucleated RBC % 0 Sodium 137 Potassium 4.0 Chloride 103 Carbon Dioxide 24.0 Anion Gap 10 BUN 14 Creatinine 0.90 Estim Creat Clear Calc 88.80 Est GFR (MDRD) Af Amer 107 Est GFR (MDRD) Non-Af 88 BUN/Creatinine Ratio 15.5 Glucose 265 H Lactic Acid Calcium 8.9 Total Bilirubin 0.50 AST 35 ALT 41 Alkaline Phosphatase 137 H Troponin I High Sens 19 B-Natriuretic Peptide Total Protein 7.9 Albumin 3.3 Globulin 4.6 H Albumin/Globulin Ratio 0.7 L POC Glucose 261 H 02/17/21 02/17/21 13:29 13:29 WBC RBC Hgb Hct MCV MCH MCHC RDW Std Deviation RDW Coeff of Sherin Plt Count MPV Immature Gran % (Auto) Neut % (Auto) Lymph % (Auto) [place] % (Auto) Eos % (Auto) Baso % (Auto) Absolute Neuts (auto) Absolute Lymphs (auto) Nucleated RBC % Sodium Potassium Chloride Carbon Dioxide Anion Gap BUN Creatinine Estim Creat Clear Calc Est GFR (MDRD) Af Amer Est GFR (MDRD) Non-Af BUN/Creatinine Ratio Glucose Lactic Acid 2.3 H* Calcium Total Bilirubin AST ALT Alkaline Phosphatase Troponin I High Sens B-Natriuretic Peptide 330.1 H Total Protein Albumin Globulin Albumin/Globulin Ratio POC Glucose ABG Data ABG results: ABG 02/17/21 13:37 Specimen Type ALEXY VBG pH 7.31 L VBG pO2 54 H VBG HCO3 25 VBG Total CO2 27 VBG O2 Sat (Calc) 84 H VBG Base Excess -1 POC Mix VBG pCO2 Pt Tmp 49.6 Respiration Rate 12 POC PEEP 6 Clinical Comments 05/13 12 65 Radiography Chest X-Ray - ED: 1 View, Read by ED Physician, Cardiomegaly and CHF Diagnostic Testing: Radiology Impression Chest X-Ray 02/17/21 13:48 IMPRESSION: No active disease. Electronically Signed: José Miguel Gonzalez MD at 15:05 EDT Tel , Service support , EKG Initial EKG: Attestation: I personally reviewed and interpreted this EKG as follows: Interpretation: Sinus Tachycardia (Sinus tachycardia with a ventricular rate 113. RI interval is 170 ms. Cures duration under 10 ms. QT duration 356 ms. [place] is normal. There is artifact. This is from his respiratory stress. 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 Griffin Swain. He informed there may not be ICU beds. Will contact hospitalist for admission), Arranging Admission or Transfer (Discussion with hospitalist for admission) and Performing Direct Patient Care at Bedside Discharge Plan Dx/Rx/DC Orders Clinical Impression: Acute and chronic respiratory failure with hypoxia, Atherosclerosis of coronary artery bypass graft without angina pectoris, Essential (primary) hypertension, Hyperlipidemia, Acute exacerbation of CHF (congestive heart failure), Acidosis, lactic, Hypertensive urgency Disposition Disposition: Acute Care [facility]
[2021-02-17 13:31] LABS: Bedside Glucose 261 mg/dL (70-110)
[2021-02-17 13:40] LABS: Absolute Lymphocyte Count 1.78 X10^3/uL (0.83-4.51); Absolute Neutrophil Count 8.7 X10^3/uL (2.0-7.7); Basophil# 0.08 X10^3/uL; Basophil% 0.7 % (0-1); Eosinophil# 0.26 X10^3/uL; Eosinophils% 2.2 % (0-5); Hematocrit 39.6 % (40-54); Hemoglobin 12.3 g/dL (13.0-16.5); Lymphocyte # 1.78 X10^3/ul (0.83-4.51); Lymphocyte % 15.3 % (19-41); Mean Corp Hgb Conc 31.1 g/dL (32-36); Mean Corpuscular Hgb 27.6 pg (27.0-32.0); Mean Corpuscular Volume 88.8 fL (80-94); Mean Platelet Vol. 11.6 fl (6.2-12.0); Monocyte# 0.73 X10^3/uL; Monocyte% 6.3 % (0-10); NRBC Flagged by Analyzer 0 % (0-5); Neutrophil # 8.73 X10^3/uL (2.7-7.7); Neutrophil % 75.1 % (47-70); Platelet Count 261 K/mm3 (150-450); RBC Distribution Width SD 48.7 fl (35.1-43.9); Red Blood Count 4.46 M/mm3 (4.6-6.2); White Blood Count 11.6 K/mm3 (4.4-11.0)
[2021-02-17 13:45] LABS: Blood Gas Specimen Type VEN; PEEP 6; RR 12; VBG BASE EXCESS -1 mmol/L (-1.0-3.5); VBG Bicarbonate 25 mmol/L (22-26); VBG PO2 54 mmHg (25-40); VBG SO2 84 % (50-70); VBG TCO2 27 mmol/L (23-33); VBG pCO2 49.6 mmHg (41-51); VBG pH 7.31 (7.32-7.42)
--- NOTE | 2021-02-17 13:48 | RAD_ITS ---
STUDY: X-RAY CHEST REASON FOR EXAM: Male, 70 years old. Respiratory failure TECHNIQUE: Single AP portable view of the chest. COMPARISON: 09/14/2020 FINDINGS: Status post median sternotomy. The lungs are clear and expanded. There is no demonstrated pleural abnormality. There is moderate cardiac enlargement. Normal mediastinum and ita. Normal visualized pulmonary arteries. Normal visualized aortic arch and descending thoracic aorta. Normal visualized thoracic spine. Normal visualized ribs, clavicles, and shoulders. There is no demonstrated abnormality of the visualized soft tissue structures of the upper abdomen. RAD/Chest 1 View (Portable) IMPRESSION: No active disease. Electronically Signed: José Miguel Gonzalez MD at 15:05 EDT Tel , Service support ,
[2021-02-17 14:00] LABS: BNP,B-Type NATRIURETIC PEPTIDE 330.1 pg/mL (0-100)
[2021-02-17 14:01] LABS: ALB/GLOB Ratio 0.7 RATIO (0.9-2.4); AST(SGOT) 35 U/L (15-37); Alanine Aminotransfer ALT/SGPT 41 U/L (16-61); Albumin, Serum 3.3 g/dL (3.2-5.0); Alkaline Phosphatase 137 U/L (45-117); Anion Gap 10 (5-15); BUN 14 mg/dL (7-18); BUN/Creat Ratio 15.5 RATIO (10-20); Calcium,Total 8.9 mg/dL (8.5-10.1); Chloride 103 mmol/L (98-107); EST Glomerular Filtration Rate 88 mL/min (>60); Est Glom Filt Rate - Afr Amer 107 mL/min (>60); Globulin 4.6 g/dL (2.2-4.2); Glucose 265 mg/dL (74-106); Protein, Total 7.9 g/dL (6.4-8.2); Sodium Level 137 mmol/L (136-145); Troponin-I HS 19 pg/mL (3.0-78.0)
[2021-02-17 14:08] LABS: Lactic Acid 2.3 mmol/L (0.4-1.9)
--- NOTE | 2021-02-17 14:41 | ED.RN ---
upon entering to start nitro pt was found to have bp of 111/53. dr desouza consulted and nitro held. [place], [place] [phone]
--- NOTE | 2021-02-17 15:11 | CT_ITS ---
STUDY: CTA CHEST REASON FOR EXAM: Male, 70 years old. Acute respiratory failure with hypoxia, evaluate f RADIATION DOSAGE (If Supplied By Facility): CTDIvol = ( 25.06 ) mGy, DLP = ( 540.65 ) mGycm TECHNIQUE: The examination was performed with the intravenous administration of IV 100mL [id number]. Post-processing of the angiographic images was performed, with multiplanar reformation and 3D reconstruction. Individualized dose optimization techniques were used for this CT. COMPARISON: Chest x-ray earlier today FINDINGS: Status post median sternotomy. Normal enhancement of the main pulmonary artery and right and left pulmonary arteries. Normal enhancement of the bilateral peripheral pulmonary arteries. There is no demonstrated pulmonary embolism. Normal thoracic aorta and visualized great vessels. There is no demonstrated aortic dissection. Normal heart and pericardium. Normal mediastinum. Normal hilar regions. Normal visualized trachea and bronchi. The lungs are well expanded. Some dependent bibasilar atelectasis. Small bilateral pleural effusions. Normal chest wall structures. Normal osseous structures. Normal visualized upper abdomen. CT/CTA Chest W/WO Contrast IMPRESSION: Normal CTA chest examination, without a demonstrated pulmonary embolism or arterial dissection. Small bilateral pleural effusions with some bibasilar atelectasis. Electronically Signed: José Miguel Gonzalez MD at 17:10 EDT Tel , Service support ,
[2021-02-17] MEDS: Furosemide 40 MG/4 ML Vial IV (15:12)
[2021-02-17 15:28] LABS: Mucous, Urine 0 SEEN /hpf (<or=2+); Squamous Epithelial Cells - UA 0 SEEN /hpf (0-5)
[2021-02-17 15:42] LABS: Color, Urine Yellow (Yellow); Glucose, Dipstick 50 mg/dl (Normal); Ketone-Dipstick 5 mg/dl (Negative); Leukocyte Esterase-Dipstick 500 /ul (Negative); Nitrite-Dipstick Positive (Negative); Occult Blood-Urine 250 /ul (Negative); Protein-Dipstick 100 mg/dl (Negative); Urine Bilirubin Dipstick Negative (Negative); Urine Clarity Cloudy (Clear); Urine Urobilinogen 1 mg/dl (Normal)
[2021-02-17 16:00] LABS: Bacteria 2+ /hpf (None Seen); Red Blood Cells-Urine 10-25 SEEN /hpf (0-5); White Blood Cells >100 SEEN /hpf (0-5)
--- NOTE | 2021-02-17 16:19 | HP.PCM.HOS_ITS ---
Documented by User: Lula Ledesma NP, ELECTRONICS WARFARE TECHNICIAN-C 02/17/21 17:10 HPI - General HPI Narrative FABY GARCIA, is a 70 M who presents to the emergency room due to shortness of breath. Patient on BiPAP and lethargic during assessment. Patient's and daughter at bedside providing HPI. reports she was visiting patient at SNF today, he had been complaining of some mild general GI symptoms when he suddenly became short of breath. states over a 10-minute period of time his breathing worsened and he became confused and drowsy. She states this has happened quickly in the past with episodes of heart failure/pulmonary edema. states he has denied recent cough, fever, chills. No recent illness. No other known symptoms or complaints. He has a past medical history of heart failure with preserved ejection fraction/history of ischemic cardiomyopathy with reduced EF, type 2 diabetes mellitus, CAD with history of stents/CABG, history of TBI/CVA, hypertension, hyperlipidemia, restless leg syndrome, BPH, GERD, anxiety/depression, JIM, morbid obesity, chronic COPD. [facility] Medical History (Updated 02/17/21 @ 20:25 by Monisha Blake) Acute on chronic systolic (congestive) heart failure Acute pulmonary edema (09/14/20) Acute respiratory failure with hypoxia (09/14/20) Acute respiratory failure with hypoxia and hypercapnia Alcohol abuse Allergic rhinitis Anemia Anxiety Atherosclerosis Atherosclerosis of coronary artery bypass graft without angina pectoris Benign prostatic hyperplasia Chronic combined systolic and diastolic CHF (congestive heart failure) COPD (chronic obstructive pulmonary disease) COPD with acute exacerbation CVA (cerebral vascular accident) Depression Diabetes Dysphagia Essential (primary) hypertension GERD (gastroesophageal reflux disease) Heart failure History of non-ST elevation myocardial infarction (NSTEMI) (02/21/19) HTN (hypertension) Hyperlipidemia Intraparenchymal hemorrhage of brain Intraventricular hemorrhage Ischemic cardiomyopathy Morbid obesity Myocardial infarct Neuromuscular dysfunction of bladder Nicotine dependence Obesity Obstructive sleep apnea Osteomyelitis of sacrum Recurrent UTI (urinary tract infection) Reflux esophagitis Restless leg syndrome Right hemiplegia RLS (restless legs syndrome) Sleep apnea Subarachnoid hemorrhage Subdural hematoma Tobacco abuse Traumatic brain injury Type 2 diabetes mellitus Home Medications amantadine HCl 100 mg PO DAILY 04/17/18 [History Last Taken 02/17/21] pantoprazole 40 mg PO DAILY 04/17/18 [History Last Taken 02/17/21] pramipexole 0.25 mg PO QHS 04/17/18 [History Last Taken 02/16/21] pravastatin 80 mg PO QHS 04/17/18 [History Last Taken 02/16/21] furosemide 40 mg tablet 40 mg PO DAILY tab 06/17/18 [History Last Taken Unknown] potassium chloride 20 mEq tablet,extended release(part/cryst) 20 meq PO DAILY 90 Days #90 tab 06/17/18 [History Last Taken 02/17/21] fluoxetine 60 mg PO DAILY 02/20/19 [History Last Taken 02/17/21] nitroglycerin 0.4 mg SUBLINGUAL PRN PRN 02/20/19 [History Last Taken Unknown] aspirin 81 mg PO DAILY@0800 02/24/19 [History Last Taken 02/17/21] acetaminophen 1,000 mg PO Q6H PRN PRN tab 03/03/19 [Rx Last Taken Unknown] bisacodyl 10 mg RC DAILY PRN PRN 09/14/19 [History Last Taken Unknown] insulin aspart U-100 [Novolog Flexpen U-100 Insulin] See Protocol SC TIDCM 09/14/19 [History Last Taken Unknown] oxycodone 5 mg PO Q6H PRN PRN 09/14/19 [History Last Taken 02/17/21] sennosides-docusate sodium 2 ea PO BID 01/02/20 [History Last Taken 02/17/21] melatonin 3 mg PO QHS 09/14/20 [History Last Taken 02/16/21] carvedilol 12.5 mg tablet 12.5 mg PO BID 10/10/20 [History Last Taken 02/17/21] sacubitril 24 mg-valsartan 26 mg tablet 1 tab PO BID 10/10/20 [History Last Taken 02/17/21] fluticasone propionate [Flovent] 1 puff INHALATION BID 02/17/21 [History Last Taken 02/17/21] insulin aspart U-100 [Novolog Flexpen U-100 Insulin] 12 unit SUBCUT TID 02/17/21 [History Last Taken 02/17/21] insulin glargine [Basaglar KwikPen U-100 Insulin] 18 unit SUBCUT QPM 02/17/21 [History Last Taken 02/17/21] menthol-zinc oxide 1 applic TOPICAL 0600,2200 09/12/21 [History Last Taken Unknown] tamsulosin 0.4 mg PO QHS 02/17/21 [History Last Taken 02/16/21] ticagrelor [Brilinta] 90 mg PO BID 02/17/21 [History Last Taken 02/17/21] Allergy/AdvReac Type Severity Reaction Status Date / Time atorvastatin Allergy PT UNSURE Verified 02/17/21 13:15 OF REACTION cilostazol Allergy Hives Verified 02/17/21 13:15 colestipol Allergy Hives Verified 02/17/21 13:15 diltiazem Allergy Hives Verified 02/17/21 13:15 gemfibrozil Allergy Hives Verified 02/17/21 13:15 naproxen [From Naprosyn] Allergy Hives Verified 02/17/21 13:15 niacin Allergy PT UNSURE Verified 02/17/21 13:15 OF REACTION Nitrate Analogues Allergy Hives Verified 02/17/21 13:15 Penicillins Allergy Hives Verified 02/17/21 13:15 pravastatin Allergy NEEDS Verified 02/17/21 13:15 FOLLOW-UP procainamide Allergy Hives Verified 02/17/21 13:15 rosuvastatin Allergy Hives Verified 02/17/21 13:15 simvastatin Allergy Hives Verified 02/17/21 13:15 isosorbide AdvReac Severe Unknown Verified 02/17/21 13:15 Family History (Updated 02/17/21 @ 16:57 by Lula Ledesma ELECTRONICS WARFARE TECHNICIAN, ELECTRONICS WARFARE TECHNICIAN-C) Brother Heart disease Father Heart disease Mother No history of heart disease Surgical History (Updated 02/17/21 @ 20:25 by Monisha Blake) Chronic suprapubic catheter H/O coronary angioplasty H/O coronary artery bypass surgery (2001) History of coronary artery stent placement (09/18/20) History of left heart catheterization (09/17/20) PEG (percutaneous endoscopic gastrostomy) adjustment/replacement/removal Status post ileostomy Status post osteotomy (01/2018) Social History Smoking Status: Current every day smoker tobacco type: cigarettes how long ago did patient quit smokin, 1ppd second hand exposure: Yes alcohol intake: never caffeine: Yes Type: coffee Number of servings: 3 what type of physical activity do you participate in: none ROS Review of Systems ROS Unobtainable: other Details: due to lethargy, altered mental status Vital Signs Vital Signs Vital Signs: 02/17/21 13:15 02/17/21 13:20 02/17/21 13:30 Temperature 97.7 F L Temperature Source Temporal Pulse Rate 136 H 131 H 134 H Respiratory Rate 42 H 44 H 43 H Respiratory Effort Respiratory Depth Respiratory Pattern Tachypnea Blood Pressure 194/99 H 194/99 H Blood Pressure Mean 130 130 Pulse Ox 100 100 96 Oxygen Delivery Method Bi-pap Bi-pap Fraction of Inspired Oxygen (FIO2) 65 02/17/21 13:35 02/17/21 13:44 02/17/21 15:04 Temperature 97.7 F L 98.0 F Temperature Source Temporal Temporal Pulse Rate 114 H 102 H Respiratory Rate 41 H 21 H Respiratory Effort Short of Breath Accessory Muscle Use Respiratory Depth Shallow Respiratory Pattern Tachypnea Blood Pressure 201/148 H 125/74 H Blood Pressure Mean 165 91 Pulse Ox 99 97 Oxygen Delivery Method Bi-pap Bi-pap Bi-pap Fraction of Inspired Oxygen (FIO2) 02/17/21 15:19 Temperature Temperature Source Pulse Rate 101 H Respiratory Rate 22 H Respiratory Effort Respiratory Depth Respiratory Pattern Tachypnea Blood Pressure Blood Pressure Mean Pulse Ox 99 Oxygen Delivery Method Fraction of Inspired Oxygen (FIO2) 35 Weight Weight: 314 lb 9.594 oz Body Mass Index (BMI) 40.4 Physical Exam Const no apparent distress Constitutional Narrative: on BIPAP Orientation / Consciousness: lethargic Nutritional Appearance: obese HEENT normocephalic and moist oral mucous membranes Eyes PERRL, EOMs intact bilaterally and conjunctivae normal Neck no lymphadenopathy Resp normal respiratory effort and clear to auscultation bilaterally Cardio regular rate, regular rhythm and no murmurs Peripheral Pulses: pulses 2+ throughout GI normal to inspection, nondistended, normoactive bowel sounds, non-tender and non-distended GI Narrative: Colostomy and suprapubic catheter in place Extremity normal to inspection Skin no rashes or lesions noted Lesions: no lesions Rashes: no rashes Trauma: no lacerations or abrasions Neuro CN's II-XII intact bilaterally, no focal motor deficits, no sensory deficits noted and deep tendon reflexes 2+ bilaterally Psych mental status grossly normal and affect normal Results Lab / Micro Data Result Diagrams: 02/17/21 13:29 02/17/21 13:29 Labs: Laboratory Results - last 24 hr 02/17/21 13:24: POC Glucose 261 H 02/17/21 13:29: WBC 11.6 H, RBC 4.46 L, Hgb 12.3 L, Hct 39.6 L, MCV 88.8, MCH 27.6, MCHC 31.1 L, RDW Std Deviation 48.7 H, RDW Coeff of Sherin 15.0 H, Plt Count 261, MPV 11.6, Immature Gran % (Auto) 0.400, Neut % (Auto) 75.1 H, Lymph % (Auto) 15.3 L, George % (Auto) 6.3, Eos % (Auto) 2.2, Baso % (Auto) 0.7, Absolute Neuts (auto) 8.7 H, Absolute Lymphs (auto) 1.78, Nucleated RBC % 0 02/17/21 13:29: Sodium 137, Potassium 4.0, Chloride 103, Carbon Dioxide 24.0, Anion Gap 10, BUN 14, Creatinine 0.90, Estim Creat Clear Calc 88.80, Est GFR (MDRD) Af Amer 107, Est GFR (MDRD) Non-Af 88, BUN/Creatinine Ratio 15.5, Glucose 265 H, Calcium 8.9, Total Bilirubin 0.50, AST 35, ALT 41, Alkaline Phosphatase 137 H, Troponin I High Sens 19, Total Protein 7.9, Albumin 3.3, Globulin 4.6 H, Albumin/Globulin Ratio 0.7 L 02/17/21 13:29: Lactic Acid 2.3 H* 02/17/21 13:29: B-Natriuretic Peptide 330.1 H 02/17/21 15:22: Urine Color Yellow, Urine Clarity Cloudy, Urine pH 6.0, Ur Specific [place] 1.020, Urine Protein 100 H, Urine Glucose (UA) 50 H, Urine Ketones 5 H, Urine Occult Blood 250 H, Urine Nitrite Positive H, Urine Bilirubin Negative, Urine Urobilinogen 1 H, Ur Leukocyte Esterase 500 H, Urine RBC 10-25 SEEN, Urine WBC >100 SEEN, Ur Squamous Epith Cells 0 SEEN, Urine Bacteria 2+, Urine Mucus 0 SEEN Micro: Microbiology 02/17/21 14:12 Nasal Secretion SARS-CoV-2 Antigen (Rapid) - Final ABG Data ABG results: ABG 02/17/21 13:37 Specimen Type ALEXY VBG pH 7.31 L VBG pO2 54 H VBG HCO3 25 VBG Total CO2 27 VBG O2 Sat (Calc) 84 H VBG Base Excess -1 POC Mix VBG pCO2 Pt Tmp 49.6 Respiration Rate 12 POC PEEP 6 Clinical Comments 05/13 12 65 Radiology Impression Chest X-Ray 02/17/21 13:48 IMPRESSION: No active disease. Electronically Signed: José Miguel Gonzalez MD at 15:05 EDT Tel , Service support , Assessment & Plan Assessment/Plan (1) Acute and chronic respiratory failure with hypoxia: PLAN: 1. Acute hypoxic respiratory failure secondary to acute on chronic heart failure with preserved ejection fraction-history of ischemic cardio myopathy with reduced EF- most recent echocardiogram 01/21/2021 with EF 55%, stage I diastolic dysfunction. Chest x-ray unremarkable. CTA without PE. Placed on BiPAP on admission. BNP 330. Clinically consistent with acute heart failure. IV Lasix. Strict I&O. Daily weight continue BiPAP. 2. Acute cystitis vs chronic bacteriuria-patient has chronic suprapubic catheter. UA remarkable for 2+ bacteria, greater than 100 WBC, 500 leukocyte, positive nitrite. Obtain urine culture. IV Rocephin pending culture. 3. Acute metabolic encephalopathy-secondary to #1/#2-treatment per above. 4. Type 2 diabetes [id number] with sliding scale insulin. Continue home insulin regimen. 5. CAD with history of stents/CABG-on aspirin, statin, Brilinta, beta-stepan, Entresto. 6. History of TBI/CVA with residual right-sided weakness, colostomy placement and suprapubic catheter- resides at SNF. On aspirin, statin. 7. Hypertension-stable, continue home medication regimen. 8. Hyperlipidemia-on statin. 9. Chronic COPD-no exacerbation. As needed albuterol aerosol. 10. Restless leg syndrome-on Mirapex. 11. GERD-continue PPI. 12. Anxiety/Depression- on prozac. 13. JIM-continue BiPAP. 14. Morbid obesity-nutrition consult. DVT prophylaxis-Heparin subcu CODE STATUS: Discussed with at bedside, confirms DNR CCA no intubation CODE STATUS. This patient was seen by IRAIS PennyC under the supervision of Dr. Solo. Documented by User: Dr. Biju Solo, 02/17/21 21:05 HPI - General General Date of Admission: 02/17/21 [facility] Medical History (Updated 02/17/21 @ 20:25 by Monisha Blake) Acute on chronic systolic (congestive) heart failure Acute pulmonary edema (09/14/20) Acute respiratory failure with hypoxia (09/14/20) Acute respiratory failure with hypoxia and hypercapnia Alcohol abuse Allergic rhinitis Anemia Anxiety Atherosclerosis Atherosclerosis of coronary artery bypass graft without angina pectoris Benign prostatic hyperplasia Chronic combined systolic and diastolic CHF (congestive heart failure) COPD (chronic obstructive pulmonary disease) COPD with acute exacerbation CVA (cerebral vascular accident) Depression Diabetes Dysphagia Essential (primary) hypertension GERD (gastroesophageal reflux disease) Heart failure History of non-ST elevation myocardial infarction (NSTEMI) (02/21/19) HTN (hypertension) Hyperlipidemia Intraparenchymal hemorrhage of brain Intraventricular hemorrhage Ischemic cardiomyopathy Morbid obesity Myocardial infarct Neuromuscular dysfunction of bladder Nicotine dependence Obesity Obstructive sleep apnea Osteomyelitis of sacrum Recurrent UTI (urinary tract infection) Reflux esophagitis Restless leg syndrome Right hemiplegia RLS (restless legs syndrome) Sleep apnea Subarachnoid hemorrhage Subdural hematoma Tobacco abuse Traumatic brain injury Type 2 diabetes mellitus Home Medications amantadine HCl 100 mg PO DAILY 04/17/18 [History Last Taken 02/17/21] pantoprazole 40 mg PO DAILY 04/17/18 [History Last Taken 02/17/21] pramipexole 0.25 mg PO QHS 04/17/18 [History Last Taken 02/16/21] pravastatin 80 mg PO QHS 04/17/18 [History Last Taken 02/16/21] furosemide 40 mg tablet 40 mg PO DAILY tab 06/17/18 [History Last Taken Unknown] potassium chloride 20 mEq tablet,extended release(part/cryst) 20 meq PO DAILY 90 Days #90 tab 06/17/18 [History Last Taken 02/17/21] fluoxetine 60 mg PO DAILY 02/20/19 [History Last Taken 02/17/21] nitroglycerin 0.4 mg SUBLINGUAL PRN PRN 02/20/19 [History Last Taken Unknown] aspirin 81 mg PO DAILY@0800 02/24/19 [History Last Taken 02/17/21] acetaminophen 1,000 mg PO Q6H PRN PRN tab 03/03/19 [Rx Last Taken Unknown] bisacodyl 10 mg RC DAILY PRN PRN 09/14/19 [History Last Taken Unknown] insulin aspart U-100 [Novolog Flexpen U-100 Insulin] See Protocol SC TIDCM 09/14/19 [History Last Taken Unknown] oxycodone 5 mg PO Q6H PRN PRN 09/14/19 [History Last Taken 02/17/21] sennosides-docusate sodium 2 ea PO BID 01/02/20 [History Last Taken 02/17/21] melatonin 3 mg PO QHS 09/14/20 [History Last Taken 02/16/21] carvedilol 12.5 mg tablet 12.5 mg PO BID 10/10/20 [History Last Taken 02/17/21] sacubitril 24 mg-valsartan 26 mg tablet 1 tab PO BID 10/10/20 [History Last Taken 02/17/21] fluticasone propionate [Flovent] 1 puff INHALATION BID 02/17/21 [History Last Taken 02/17/21] insulin aspart U-100 [Novolog Flexpen U-100 Insulin] 12 unit SUBCUT TID 02/17/21 [History Last Taken 02/17/21] insulin glargine [Basaglar KwikPen U-100 Insulin] 18 unit SUBCUT QPM 02/17/21 [History Last Taken 02/17/21] menthol-zinc oxide 1 applic TOPICAL 0600,2200 02/17/21 [History Last Taken Unknown] tamsulosin 0.4 mg PO QHS 02/17/21 [History Last Taken 02/16/21] ticagrelor [Brilinta] 90 mg PO BID 02/17/21 [History Last Taken 02/17/21] Allergy/AdvReac Type Severity Reaction Status Date / Time atorvastatin Allergy PT UNSURE Verified 02/17/21 13:15 OF REACTION cilostazol Allergy Hives Verified 02/17/21 13:15 colestipol Allergy Hives Verified 02/17/21 13:15 diltiazem Allergy Hives Verified 02/17/21 13:15 gemfibrozil Allergy Hives Verified 02/17/21 13:15 naproxen [From Naprosyn] Allergy Hives Verified 02/17/21 13:15 niacin Allergy PT UNSURE Verified 02/17/21 13:15 OF REACTION Nitrate Analogues Allergy Hives Verified 02/17/21 13:15 Penicillins Allergy Hives Verified 02/17/21 13:15 pravastatin Allergy NEEDS Verified 02/17/21 13:15 FOLLOW-UP procainamide Allergy Hives Verified 02/17/21 13:15 rosuvastatin Allergy Hives Verified 02/17/21 13:15 simvastatin Allergy Hives Verified 02/17/21 13:15 isosorbide AdvReac Severe Unknown Verified 02/17/21 13:15 Family History (Updated 02/17/21 @ 16:57 by Lula Ledesma ELECTRONICS WARFARE TECHNICIAN, ELECTRONICS WARFARE TECHNICIAN-C) Brother Heart disease Father Heart disease Mother No history of heart disease Surgical History (Updated 02/17/21 @ 20:25 by Monisha Blake) Chronic suprapubic catheter H/O coronary angioplasty H/O coronary artery bypass surgery (2001) History of coronary artery stent placement (09/18/20) History of left heart catheterization (09/17/20) PEG (percutaneous endoscopic gastrostomy) adjustment/replacement/removal Status post ileostomy Status post osteotomy (01/2018) Social History Smoking Status: Current every day smoker tobacco type: cigarettes how long ago did patient quit smokin, 1ppd second hand exposure: Yes alcohol intake: never caffeine: Yes Type: coffee Number of servings: 3 what type of physical activity do you participate in: none Results Lab / Micro Data Result Diagrams: 02/17/21 13:29 02/17/21 13:29 Charges/Coding Addendum Addendum: Patient was seen and examined independently of Lula Ledesma today, he was brought in from a local extended care facility in respiratory distress that started this afternoon abruptly while the was visiting him at the skilled nursing. Patient has a history of COPD and congestive heart failure, he also has a history of cerebrovascular disease with a stroke that left him hemiplegic. Patient has a suprapubic catheter as well as a colostomy. On examination he appeared older than his stated age, he was somewhat somnolent on examination. Vital signs as documented. Skin warm and dry and without overt rashes. Neck without JVD, neck was supple, trachea midline, thyroid was normal. Lungs clear bilaterally, normal air movement was noted. Heart exam notable for regular rhythm, normal sounds and absence of murmurs, rubs or gallops. Abdomen unremarkable and without evidence of organomegaly, masses, or abdominal aortic enlargement. Patient has a colostomy present in the left lower quadrant and a suprapubic catheter. Bowel sounds are present, abdomen is not distended. Patient is morbidly obese Extremities-no cyanosis was noted, no clubbing was noted. Neuro: Patient has right hemiplegia, he is somnolent. Psych: Patient is somnolent at the time of my examination, he responds to verbal stimuli and painful stimuli Patient underwent a extensive work-up in the ER, no evidence of pneumonia or CHF was noted on the CTA of the chest. However, the patient has a history of CHF and the scenario favors this diagnosis at this time and so the patient will be placed on IV Lasix and initially he was on BiPAP and oxygen, I have seen him subsequently and he is now on room air and BiPAP and is satting above 90%. I have reviewed Lula Ledesma's history and physical including her medical assessment and plan of care and endorse it. Visit Charges Inpatient E&M: 77467 Init Hosp L3
[2021-02-17 17:33] LABS: Reflex Lactate? Y
--- NOTE | 2021-02-17 20:11 | PCS.PANDOC ---
PANDEMIC DOCUMENTATION INITIATED: Date: 01/21/2021 Time: 190
[2021-02-17] MEDS: Carvedilol 12.5 MG Tablet PO (22:59)
[2021-02-17] MEDS: Furosemide 20 MG/2 ML VIAL IV (22:59)
[2021-02-17] MEDS: Senna/Docusate Sodium 1 Tablet 2 TABLET PO (22:59)
[2021-02-17] MEDS: Tamsulosin HCl 0.4 MG Capsule PO (22:59)
[2021-02-17] MEDS: TICAGRELOR 90 MG TABLET PO (22:59)
[2021-02-17] MEDS: SACUBITRIL/VALSARTAN 24/26 MG TABLET 1 EACH PO (22:59)
[2021-02-17] MEDS: Pravastatin 80 MG Tablet PO (22:59)
[2021-02-17] MEDS: Heparin Injection (Vial) 5,000 UNIT/ML VIAL 5000 UNIT SC (23:00)
[2021-02-17] MEDS: Acetaminophen 500 MG Tablet 1000 MG PO (23:09)
[2021-02-17] MEDS: oxyCODONE 5 MG Tablet PO (23:09)
[2021-02-18] VITALS (12 sets, daily range): BP systolic 126–136; BP diastolic 64–99; PULSE 64–85; RESP 12–25; TEMP 36.2–36.6; O2SAT 90–98
[2021-02-18] MEDS: Ipratropium/Albuterol Sulfate 3 ML AMPUL.NEB INHALATION ×2 (00:09→08:08)
[2021-02-18] MEDS: Insulin Lispro 100 UNIT/ML INSULN.PEN SC ×3 (03:04→11:56)
[2021-02-18 03:11] LABS: Bedside Glucose 167 mg/dL (70-110)
[2021-02-18] MEDS: Furosemide 20 MG/2 ML VIAL IV (05:52)
[2021-02-18] MEDS: Heparin Injection (Vial) 5,000 UNIT/ML VIAL 5000 UNIT SC (05:52)
[2021-02-18 06:31] LABS: Absolute Lymphocyte Count 1.12 X10^3/uL (0.83-4.51); Absolute Neutrophil Count 5.4 X10^3/uL (2.0-7.7); Basophil# 0.05 X10^3/uL; Basophil% 0.7 % (0-1); Eosinophils% 1.4 % (0-5); Lymphocyte # 1.12 X10^3/ul (0.83-4.51); Lymphocyte % 15.5 % (19-41); Mean Corp Hgb Conc 30.6 g/dL (32-36); Mean Corpuscular Hgb 27.2 pg (27.0-32.0); Mean Corpuscular Volume 88.9 fL (80-94); Mean Platelet Vol. 11.8 fl (6.2-12.0); Monocyte# 0.57 X10^3/uL; Monocyte% 7.9 % (0-10); NRBC Flagged by Analyzer 0 % (0-5); Neutrophil # 5.37 X10^3/uL (2.7-7.7); Neutrophil % 74.1 % (47-70); Platelet Count 206 K/mm3 (150-450); RBC Distribution Width CV 15.3 % (11.6-14.6); RBC Distribution Width SD 49.4 fl (35.1-43.9); Red Blood Count 4.05 M/mm3 (4.6-6.2); White Blood Count 7.2 K/mm3 (4.4-11.0)
[2021-02-18 07:00] LABS: Bedside Glucose 166 mg/dL (70-110)
[2021-02-18 07:33] LABS: Anion Gap 6 (5-15); BUN 15 mg/dL (7-18); BUN/Creat Ratio 17.6 RATIO (10-20); Calcium,Total 8.8 mg/dL (8.5-10.1); Chloride 105 mmol/L (98-107); Creatinine, Serum 0.85 mg/dL (0.70-1.30); EST Glomerular Filtration Rate 94 mL/min (>60); Est Glom Filt Rate - Afr Amer 114 mL/min (>60); Estimated Creatinine Clearance 94.02 ml/min; Glucose 161 mg/dL (74-106); Potassium 4.1 mmol/L (3.5-5.1); Sodium Level 140 mmol/L (136-145)
[2021-02-18] MEDS: SACUBITRIL/VALSARTAN 24/26 MG TABLET 1 EACH PO (09:31)
[2021-02-18] MEDS: FLUoxetine 20 MG Capsule 60 MG PO (09:31)
[2021-02-18] MEDS: Pantoprazole Sodium 40 MG Tablet PO (09:31)
[2021-02-18] MEDS: TICAGRELOR 90 MG TABLET PO (09:31)
[2021-02-18] MEDS: Aspirin 81 MG TAB.CHEW PO (09:32)
[2021-02-18] MEDS: Amantadine 100 MG Capsule PO (09:32)
[2021-02-18] MEDS: Carvedilol 12.5 MG Tablet PO (09:32)
[2021-02-18] MEDS: Senna/Docusate Sodium 1 Tablet 2 TABLET PO (09:32)
[2021-02-18] MEDS: Potassium Chloride Oral Tablet 20 MEQ PO (09:33)
[2021-02-18 09:40] LABS: Bedside Glucose 159 mg/dL (70-110)
--- NOTE | 2021-02-18 10:00 | CASEMGMT ---
CONTRERAS reviewed patient's chart and noted he is from [facility]. 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 CONTRERAS called patient's and confirmed the plan is to return to [facility]. CONTRERAS let her know that the plan is possible d/c today. She thanked CONTRERAS. CONTRERAS faxed updates to [facility]. 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
--- NOTE | 2021-02-18 10:12 | TREXTCAR_ITS ---
Documented by User: Lula Ledesma NP, DOCTOR OF NATUROPATHIC MEDICINE-C 02/18/21 10:31 Diet 02/18/21 08:09 Diet: Cardiac: Calorie-Controlled Is pt able to select menu?: No How many daily calories?: 1800 calorie Routine Orders/Code Status Enema Type: Fleetz Enema Frequency: Daily PRN Suppository Type: Dulcolax 10mg Suppository Frequency: Daily PRN Routine Lab Work: - (Weekly CBC, BMP) Code Status: DNRCC-A ( No intubation) Wound(s) KIKO BUTTOCKS: Wound Type: Pressure Injury Suggestions for Active Care Change Position every (hours): 2 Times a day to sit in chair: 3 Therapies Physical Therapy: Eval and Treat Occupational Therapy: Eval and Treat Problem/Diagnosis (1) Acute and chronic respiratory failure with hypoxia: Status: Chronic Allergies/Procedures Done in Hospital Allergies atorvastatin Allergy (Verified 02/17/21 13:15) PT UNSURE OF REACTION cilostazol Allergy (Verified 02/17/21 13:15) Hives colestipol Allergy (Verified 02/17/21 13:15) Hives diltiazem Allergy (Verified 02/17/21 13:15) Hives gemfibrozil Allergy (Verified 02/17/21 13:15) Hives naproxen [From Naprosyn] Allergy (Verified 02/17/21 13:15) Hives niacin Allergy (Verified 02/17/21 13:15) PT UNSURE OF REACTION Nitrate Analogues Allergy (Verified 02/17/21 13:15) Hives Penicillins Allergy (Verified 02/17/21 13:15) Hives pravastatin Allergy (Verified 02/17/21 13:15) NEEDS FOLLOW-UP procainamide Allergy (Verified 02/17/21 13:15) Hives rosuvastatin Allergy (Verified 02/17/21 13:15) Hives simvastatin Allergy (Verified 02/17/21 13:15) Hives isosorbide Adverse Reaction (Severe, Verified 02/17/21 13:15) Unknown Procedures: None Type of Care/Length of Stay Estimated LOS: More Than 30 Days Type of Care Needed: Intermediate Rehab Potential: Fair Prognosis: Fair Additional Orders/Day of Discharge H&P will serve as current which was dated: 02/17/21 Day of Discharge: 02/18/21 Discharge Plan Admission Admit Date/Time: 02/17/21 16:40 Primary Reason for Your Visit: Heart failure Attending Provider: Biju Solo Primary Care Provider: Phillip Lindo Instructions Additional Instructions / Restrictions: Continue BiPAP nightly Discharge Orders/Prescriptions Prescriptions: Continued potassium chloride 20 mEq tablet,ER particles/crystals 20 meq PO DAILY 90 Days Qty: 90 RF: 0 carvedilol [Coreg] 12.5 mg tablet 12.5 mg PO BID RF: 0 Entresto 24-26 mg tablet 1 tab PO BID RF: 0 amantadine HCl 100 MG capsule 100 mg PO DAILY RF: 0 pravastatin 80 MG tablet 80 mg PO QHS RF: 0 pantoprazole 40 MG tablet 40 mg PO DAILY RF: 0 pramipexole 0.25 MG tablet 0.25 mg PO QHS RF: 0 nitroglycerin 0.4 MG tablet, sublingual 0.4 mg sublingual PRN PRN (Reason: CHEST PAIN) RF: 0 fluoxetine 20 MG capsule 60 mg PO DAILY RF: 0 aspirin 81 MG tablet,chewable 81 mg PO DAILY@0800 RF: 0 acetaminophen 500 MG tablet 1,000 mg PO Q6H PRN PRN (Reason: Mild Pain (1-08/15)) RF: 0 bisacodyl 10 MG suppository 10 mg RC DAILY PRN PRN (Reason: Constipation) RF: 0 oxycodone 5 MG tablet 5 mg PO Q6H PRN PRN (Reason: Pain Or Fever) RF: 0 insulin aspart U-100 [Novolog Flexpen U-100 Insulin] 100 UNITS/ML insulin pen See Protocol units SC TIDCM RF: 0 sennosides-docusate sodium 1 EACH tablet 2 ea PO BID RF: 0 melatonin 3 MG tablet,disintegrating 3 mg PO QHS RF: 0 tamsulosin 0.4 mg Capsule 0.4 mg PO QHS RF: 0 fluticasone propionate 110 mcg/actuation Hfa Aerosol Inhaler 1 puff INHALATION BID RF: 0 insulin aspart U-100 [Novolog Flexpen U-100 Insulin] 100 unit/mL (3 mL) Insulin Pen 12 unit SUBCUT TID RF: 0 Basaglar KwikPen U-100 Insulin 100 unit/mL (3 mL) Insulin Pen 18 unit SUBCUT QPM RF: 0 Brilinta 90 mg Tablet 90 mg PO BID RF: 0 menthol-zinc oxide 1 APPLIC ointment 1 applic TOPICAL 0600,2200 RF: 0 Changed furosemide 40 mg tablet 40 mg PO BID Qty: 0 RF: 0 Referrals / Follow Up: Prashatnh Peña MD [STAFF PHYSICIAN] - See Referral Note (As scheduled) Phillip Lindo MD [Primary Care Provider] - In 1 Week Disposition Disposition (needs filled in before D/C Order can be placed): Nursing Home Facility Documented by User: Dr. Biju Solo DO 02/18/21 11:54 Allergies/Procedures Done in Hospital Allergies atorvastatin Allergy (Verified 02/17/21 13:15) PT UNSURE OF REACTION cilostazol Allergy (Verified 02/17/21 13:15) Hives colestipol Allergy (Verified 02/17/21 13:15) Hives diltiazem Allergy (Verified 02/17/21 13:15) Hives gemfibrozil Allergy (Verified 02/17/21 13:15) Hives naproxen [From Naprosyn] Allergy (Verified 02/17/21 13:15) Hives niacin Allergy (Verified 02/17/21 13:15) PT UNSURE OF REACTION Nitrate Analogues Allergy (Verified 02/17/21 13:15) Hives Penicillins Allergy (Verified 02/17/21 13:15) Hives pravastatin Allergy (Verified 02/17/21 13:15) NEEDS FOLLOW-UP procainamide Allergy (Verified 02/17/21 13:15) Hives rosuvastatin Allergy (Verified 02/17/21 13:15) Hives simvastatin Allergy (Verified 02/17/21 13:15) Hives isosorbide Adverse Reaction (Severe, Verified 02/17/21 13:15) Unknown Discharge Plan Admission Admit Date/Time: 02/17/21 16:40 Primary Reason for Your Visit: Heart failure Attending Provider: Biju Solo Primary Care Provider: Phillip Lindo Instructions Additional Instructions / Restrictions: Continue BiPAP nightly Discharge Orders/Prescriptions Prescriptions: Continued potassium chloride 20 mEq tablet,ER particles/crystals 20 meq PO DAILY 90 Days Qty: 90 RF: 0 carvedilol [Coreg] 12.5 mg tablet 12.5 mg PO BID RF: 0 Entresto 24-26 mg tablet 1 tab PO BID RF: 0 amantadine HCl 100 MG capsule 100 mg PO DAILY RF: 0 pravastatin 80 MG tablet 80 mg PO QHS RF: 0 pantoprazole 40 MG tablet 40 mg PO DAILY RF: 0 pramipexole 0.25 MG tablet 0.25 mg PO QHS RF: 0 nitroglycerin 0.4 MG tablet, sublingual 0.4 mg sublingual PRN PRN (Reason: CHEST PAIN) RF: 0 fluoxetine 20 MG capsule 60 mg PO DAILY RF: 0 aspirin 81 MG tablet,chewable 81 mg PO DAILY@0800 RF: 0 acetaminophen 500 MG tablet 1,000 mg PO Q6H PRN PRN (Reason: Mild Pain (-08/15)) RF: 0 bisacodyl 10 MG suppository 10 mg RC DAILY PRN PRN (Reason: Constipation) RF: 0 oxycodone 5 MG tablet 5 mg PO Q6H PRN PRN (Reason: Pain Or Fever) RF: 0 insulin aspart U-100 [Novolog Flexpen U-100 Insulin] 100 UNITS/ML insulin pen See Protocol units SC TIDCM RF: 0 sennosides-docusate sodium 1 EACH tablet 2 ea PO BID RF: 0 melatonin 3 MG tablet,disintegrating 3 mg PO QHS RF: 0 tamsulosin 0.4 mg Capsule 0.4 mg PO QHS RF: 0 fluticasone propionate 110 mcg/actuation Hfa Aerosol Inhaler 1 puff INHALATION BID RF: 0 insulin aspart U-100 [Novolog Flexpen U-100 Insulin] 100 unit/mL (3 mL) Insulin Pen 12 unit SUBCUT TID RF: 0 Basaglar KwikPen U-100 Insulin 100 unit/mL (3 mL) Insulin Pen 18 unit SUBCUT QPM RF: 0 Brilinta 90 mg Tablet 90 mg PO BID RF: 0 menthol-zinc oxide 1 APPLIC ointment 1 applic TOPICAL 0600,2200 RF: 0 Changed furosemide 40 mg tablet 40 mg PO BID Qty: 0 RF: 0 Referrals / Follow Up: Prashanth Peña MD [STAFF PHYSICIAN] - See Referral Note (As scheduled) Phillip Lindo MD [Primary Care Provider] - In 1 Week Disposition Disposition (needs filled in before D/C Order can be placed): Nursing Home Facility
--- NOTE | 2021-02-18 10:31 | DS.PCM_ITS ---
Documented by User: Lula Ledesma NP, PA[employer]RO[employer] T[employer] ANALYST-C 02/18/21 10:40 Providers Date of Admission: 02/17/21 Date of Discharge: 02/18/21 Primary Care Physician: Dr. Phillip Lindo MD Consultations 02/18/21 02:26 Consult: Onc/Wound/acid extractor Routine Comment: Reason for Consult:: COLOSTOMY & PRESSURE ULCER. Reason For Visit: HYPOXIC RESPIRATORY FAILURE Diagnosis Discharge Diagnosis (1) Acute and chronic respiratory failure with hypoxia: Status: Chronic Code(s): J96.21 - Acute and chronic respiratory failure with hypoxia Medications at Discharge Home Medications amantadine HCl 100 mg PO DAILY 04/17/18 pantoprazole 40 mg PO DAILY 04/17/18 pramipexole 0.25 mg PO QHS 04/17/18 pravastatin 80 mg PO QHS 04/17/18 potassium chloride 20 mEq tablet,extended release(part/cryst) 20 meq PO DAILY 90 Days #90 tab 06/17/18 fluoxetine 60 mg PO DAILY 02/20/19 nitroglycerin 0.4 mg SUBLINGUAL PRN PRN 02/20/19 aspirin 81 mg PO DAILY@0800 02/24/19 acetaminophen 1,000 mg PO Q6H PRN PRN tab 03/03/19 bisacodyl 10 mg RC DAILY PRN PRN 09/14/19 insulin aspart U-100 [Novolog Flexpen U-100 Insulin] See Protocol SC TIDCM 09/14/19 oxycodone 5 mg PO Q6H PRN PRN 09/14/19 sennosides-docusate sodium 2 ea PO BID 01/02/20 melatonin 3 mg PO QHS 09/14/20 carvedilol 12.5 mg tablet 12.5 mg PO BID 10/10/20 sacubitril 24 mg-valsartan 26 mg tablet 1 tab PO BID 10/10/20 Basaglar KwikPen U-100 Insulin 18 unit SUBCUT QPM 02/17/21 Brilinta 90 mg PO BID 02/17/21 fluticasone propionate 1 puff INHALATION BID 02/17/21 insulin aspart U-100 [Novolog Flexpen U-100 Insulin] 12 unit SUBCUT TID 02/17/21 menthol-zinc oxide 1 applic TOPICAL 0600,2200 02/17/21 tamsulosin 0.4 mg PO QHS 02/17/21 furosemide 40 mg PO BID #0 tab 02/18/21 Hospital Course Operations None Procedures None Summary of Care Provided Minutes Spent on Discharge: 35 Hospital Course: Patient is a 70 year old male admitted 02/17/2021 due to shortness of breath. 1. Acute hypoxic respiratory failure secondary to acute on chronic heart failure with preserved ejection fraction-history of ischemic cardiomyopathy with reduced EF- most recent echocardiogram 01/21/2021 with EF 55%, stage I diastolic dysfunct ion. Chest x-ray unremarkable. CTA without PE, small bilateral pleural effusions. Placed on BiPAP on admission. BNP 330. IV Lasix during admission. Patient improved quicker than anticipated with IV Lasix, no longer requiring BiPAP and oxygen is stable on room air. Will increase home Lasix to 40 mg twice daily. Follow-up with PCP and cardiology at discharge. Return to SNF in stable condition. 2. Chronic bacteriuria-acute UTI ruled out. Patient has chronic suprapubic catheter. UA remarkable for 2+ bacteria, greater than 100 WBC, 500 leukocyte, positive nitrite. Afebrile, no leukocytosis. Urine sent for culture and will follow results however defer treatment at this time. 3. Acute metabolic encephalopathy-secondary to #1/#2-treatment per above. Resolved. 4. Type 2 diabetes mellitus-Continue home insulin regimen. 5. CAD with history of stents/CABG-on aspirin, statin, Brilinta, beta-stepan, Entresto. 6. History of TBI/CVA with residual right-sided weakness, colostomy placement and suprapubic catheter- resides at SNF. On aspirin, statin. 7. Hypertension-stable, continue home medication regimen. 8. Hyperlipidemia-on statin. 9. Chronic COPD-no exacerbation. Continue home inhaler regimen. 10. Restless leg syndrome-on Mirapex. 11. GERD-continue PPI. 12. Anxiety/Depression- on prozac. 13. JIM-continue BiPAP. 14. Morbid obesity-encouraged diet and lifestyle modifications. Physical Exam Const no apparent distress Constitutional Narrative: Awake, no acute distress Orientation / Consciousness: Alert, oriented Nutritional Appearance: obese HEENT normocephalic and moist oral mucous membranes Eyes PERRL, EOMs intact bilaterally and conjunctivae normal Neck no lymphadenopathy Resp normal respiratory effort and clear to auscultation bilaterally Cardio regular rate, regular rhythm and no murmurs Peripheral Pulses: pulses 2+ throughout GI normal to inspection, nondistended, normoactive bowel sounds, non-tender and non-distended GI Narrative: Colostomy and suprapubic catheter in place Extremity normal to inspection Skin no rashes or lesions noted Lesions: no lesions Rashes: no rashes Trauma: no lacerations or abrasions Neuro CN's II-XII intact bilaterally, no focal motor deficits, no sensory deficits noted and deep tendon reflexes 2+ bilaterally Psych mental status grossly normal and affect normal Patient seen and examined prior to discharge. Physical assessment as noted above. Patient is stable for discharge with follow up recommendations as noted above. This patient was seen by SB Penny under the supervision of Dr. Solo. Weight / BMI Weight Weight: 313 lb 15.012 oz Body Mass Index (BMI) 40.3 ABG / Lab / Microbiology Data Result Diagrams: 02/18/21 06:20 02/18/21 06:20 Laboratory: Laboratory Results - last 24 hr 02/17/21 13:24: POC Glucose 261 H 02/17/21 13:29: WBC 11.6 H, RBC 4.46 L, Hgb 12.3 L, Hct 39.6 L, MCV 88.8, MCH 27.6, MCHC 31.1 L, RDW Std Deviation 48.7 H, RDW Coeff of Sherin 15.0 H, Plt Count 261, MPV 11.6, Immature Gran % (Auto) 0.400, Neut % (Auto) 75.1 H, Lymph % ( Auto) 15.3 L, [place] % (Auto) 6.3, Eos % (Auto) 2.2, Baso % (Auto) 0.7, Absolute Neuts (auto) 8.7 H, Absolute Lymphs (auto) 1.78, Nucleated RBC % 0 02/17/21 13:29: Sodium 137, Potassium 4.0, Chloride 103, Carbon Dioxide 24.0, Anion Gap 10, BUN 14, Creatinine 0.90, Estim Creat Clear Calc 88.80, Est GFR (MDRD) Af Amer 107, Est GFR (MDRD) Non-Af 88, BUN/Creatinine Ratio 15.5, Glucose 265 H, Calcium 8.9, Total Bilirubin 0.50, AST 35, ALT 41, Alkaline Phosphatase 137 H, Troponin I High Sens 19, Total Protein 7.9, Albumin 3.3, Globulin 4.6 H, Albumin/Globulin Ratio 0.7 L 02/17/21 13:29: Lactic Acid 2.3 H* 02/17/21 13:29: B-Natriuretic Peptide 330.1 H 02/17/21 15:22: Urine Color Yellow, Urine Clarity Cloudy, Urine pH 6.0, Ur Specific [place] 1.020, Urine Protein 100 H, Urine Glucose (UA) 50 H, Urine Ketones 5 H, Urine Occult Blood 250 H, Urine Nitrite Positive H, Urine Bilirubin Negative, Urine Urobilinogen 1 H, Ur Leukocyte Esterase 500 H, Urine RBC 10-25 SEEN, Urine WBC >100 SEEN, Ur Squamous Epith Cells 0 SEEN, Urine Bacteria 2+, Urine Mucus 0 SEEN 02/17/21 17:49: Lactic Acid 1.0 02/18/21 02:59: POC Glucose 167 H 02/18/21 05:49: POC Glucose 166 H 02/18/21 06:20: WBC 7.2, RBC 4.05 L, Hgb 11.0 L, Hct 36.0 L, MCV 88.9, MCH 27.2, MCHC 30.6 L, RDW Std Deviation 49.4 H, RDW Coeff of Sherin 15.3 H, Plt Count 206, MPV 11.8, Immature Gran % (Auto) 0.400, Neut % (Auto) 74.1 H, Lymph % (Auto) 15.5 L, [place] % (Auto) 7.9, Eos % (Auto) 1.4, Baso % (Auto) 0.7, Absolute Neuts (auto) 5.4, Absolute Lymphs (auto) 1.12, Nucleated RBC % 0 02/18/21 06:20: Sodium 140, Potassium 4.1, Chloride 105, Carbon Dioxide 29.0, Anion Gap 6, BUN 15, Creatinine 0.85, Estim Creat Clear Calc 94.02, Est GFR (MDRD) Af Amer 114, Est GFR (MDRD) Non-Af 94, BUN/Creatinine Ratio 17.6, Glucose 161 H, Calcium 8.8 02/18/21 09:25: POC Glucose 159 H Microbiology: Microbiology 02/17/21 14:12 Nasal Secretion SARS-CoV-2 Antigen (Rapid) - Final ABG: ABG 02/17/21 13:37 Specimen Type ALEXY VBG pH 7.31 L VBG pO2 54 H VBG HCO3 25 VBG Total CO2 27 VBG O2 Sat (Calc) 84 H VBG Base Excess -1 POC Mix VBG pCO2 Pt Tmp 49.6 Respiration Rate 12 POC PEEP 6 Clinical Comments 05/13 12 65 Radiography Diagnostic Testing: Radiology Impression Chest X-Ray 02/17/21 13:48 IMPRESSION: No active disease. Electronically Signed: José Miguel Gonzalez MD at 15:05 EDT Tel , Service support , Chest CTA 02/17/21 15:11 IMPRESSION: Normal CTA chest examination, without a demonstrated pulmonary embolism or arterial dissection. Small bilateral pleural effusions with some bibasilar atelectasis. Electronically Signed: José Miguel Gonzalez MD at 17:10 EDT Tel , Service support , Meaningful Use Info Meaningful Use Diagnoses (Choose all that apply): CHF CHF DANII/ARB ordered at discharge?: Yes Documented LVEF (%): 55 Discharge Plan Admission Admit Date/Time: 02/17/21 16:40 Primary Reason for Your Visit: Heart failure Attending Provider: Biju Solo Primary Care Provider: Phillip Lindo Instructions Additional Instructions / Restrictions: Continue BiPAP nightly Discharge Orders/Prescriptions Prescriptions: Continued potassium chloride 20 mEq tablet,ER particles/crystals 20 meq PO DAILY 90 Days Qty: 90 RF: 0 carvedilol [Coreg] 12.5 mg tablet 12.5 mg PO BID RF: 0 Entresto 24-26 mg tablet 1 tab PO BID RF: 0 amantadine HCl 100 MG capsule 100 mg PO DAILY RF: 0 pravastatin 80 MG tablet 80 mg PO QHS RF: 0 pantoprazole 40 MG tablet 40 mg PO DAILY RF: 0 pramipexole 0.25 MG tablet 0.25 mg PO QHS RF: 0 nitroglycerin 0.4 MG tablet, sublingual 0.4 mg sublingual PRN PRN (Reason: CHEST PAIN) RF: 0 fluoxetine 20 MG capsule 60 mg PO DAILY RF: 0 aspirin 81 MG tablet,chewable 81 mg PO DAILY@0800 RF: 0 acetaminophen 500 MG tablet 1,000 mg PO Q6H PRN PRN (Reason: Mild Pain (-08/15)) RF: 0 bisacodyl 10 MG suppository 10 mg RC DAILY PRN PRN (Reason: Constipation) RF: 0 oxycodone 5 MG tablet 5 mg PO Q6H PRN PRN (Reason: Pain Or Fever) RF: 0 insulin aspart U-100 [Novolog Flexpen U-100 Insulin] 100 UNITS/ML insulin pen See Protocol units SC TIDCM RF: 0 sennosides-docusate sodium 1 EACH tablet 2 ea PO BID RF: 0 melatonin 3 MG tablet,disintegrating 3 mg PO QHS RF: 0 tamsulosin 0.4 mg Capsule 0.4 mg PO QHS RF: 0 fluticasone propionate 110 mcg/actuation Hfa Aerosol Inhaler 1 puff INHALATION BID RF: 0 insulin aspart U-100 [Novolog Flexpen U-100 Insulin] 100 unit/mL (3 mL) Insulin Pen 12 unit SUBCUT TID RF: 0 Basaglar KwikPen U-100 Insulin 100 unit/mL (3 mL) Insulin Pen 18 unit SUBCUT QPM RF: 0 Brilinta 90 mg Tablet 90 mg PO BID RF: 0 menthol-zinc oxide 1 APPLIC ointment 1 applic TOPICAL 0600,2200 RF: 0 Changed furosemide 40 mg tablet 40 mg PO BID Qty: 0 RF: 0 Referrals / Follow Up: Prashanth Peña MD [STAFF PHYSICIAN] - See Referral Note (As scheduled) Phillip Lindo MD [Primary Care Provider] - In 1 Week Disposition Disposition (needs filled in before D/C Order can be placed): [facility] Facility Documented by User: Dr. Biju Solo DO 02/18/21 21:28 Providers Date of Admission: 02/17/21 Reason For Visit: HYPOXIC RESPIRATORY FAILURE Medications at Discharge Home Medications amantadine HCl 100 mg PO DAILY 04/17/18 pantoprazole 40 mg PO DAILY 04/17/18 pramipexole 0.25 mg PO QHS 04/17/18 pravastatin 80 mg PO QHS 04/17/18 potassium chloride 20 mEq tablet,extended release(part/cryst) 20 meq PO DAILY 90 Days #90 tab 06/17/18 fluoxetine 60 mg PO DAILY 02/20/19 nitroglycerin 0.4 mg SUBLINGUAL PRN PRN 02/20/19 aspirin 81 mg PO DAILY@0800 02/24/19 acetaminophen 1,000 mg PO Q6H PRN PRN tab 03/03/19 bisacodyl 10 mg RC DAILY PRN PRN 09/14/19 insulin aspart U-100 [Novolog Flexpen U-100 Insulin] See Protocol SC TIDCM 09/14/19 oxycodone 5 mg PO Q6H PRN PRN 09/14/19 sennosides-docusate sodium 2 ea PO BID 01/02/20 melatonin 3 mg PO QHS 09/14/20 carvedilol 12.5 mg tablet 12.5 mg PO BID 10/10/20 sacubitril 24 mg-valsartan 26 mg tablet 1 tab PO BID 10/10/20 Basaglar KwikPen U-100 Insulin 18 unit SUBCUT QPM 02/17/21 Brilinta 90 mg PO BID 02/17/21 fluticasone propionate 1 puff INHALATION BID 02/17/21 insulin aspart U-100 [Novolog Flexpen U-100 Insulin] 12 unit SUBCUT TID 02/17/21 menthol-zinc oxide 1 applic TOPICAL 0600,2200 02/17/21 tamsulosin 0.4 mg PO QHS 02/17/21 furosemide 40 mg PO BID #0 tab 02/18/21 ABG / Lab / Microbiology Data Result Diagrams: 02/18/21 06:20 02/18/21 06:20 Discharge Plan Admission Admit Date/Time: 02/17/21 16:40 Primary Reason for Your Visit: Heart failure Attending Provider: Biju Solo Primary Care Provider: Phillip Lindo Instructions Additional Instructions / Restrictions: Continue BiPAP nightly Discharge Orders/Prescriptions Prescriptions: Continued potassium chloride 20 mEq tablet,ER particles/crystals 20 meq PO DAILY 90 Days Qty: 90 RF: 0 carvedilol [Coreg] 12.5 mg tablet 12.5 mg PO BID RF: 0 Entresto 24-26 mg tablet 1 tab PO BID RF: 0 amantadine HCl 100 MG capsule 100 mg PO DAILY RF: 0 pravastatin 80 MG tablet 80 mg PO QHS RF: 0 pantoprazole 40 MG tablet 40 mg PO DAILY RF: 0 pramipexole 0.25 MG tablet 0.25 mg PO QHS RF: 0 nitroglycerin 0.4 MG tablet, sublingual 0.4 mg sublingual PRN PRN (Reason: CHEST PAIN) RF: 0 fluoxetine 20 MG capsule 60 mg PO DAILY RF: 0 aspirin 81 MG tablet,chewable 81 mg PO DAILY@0800 RF: 0 acetaminophen 500 MG tablet 1,000 mg PO Q6H PRN PRN (Reason: Mild Pain (-08/15)) RF: 0 bisacodyl 10 MG suppository 10 mg RC DAILY PRN PRN (Reason: Constipation) RF: 0 oxycodone 5 MG tablet 5 mg PO Q6H PRN PRN (Reason: Pain Or Fever) RF: 0 insulin aspart U-100 [Novolog Flexpen U-100 Insulin] 100 UNITS/ML insulin pen See Protocol units SC TIDCM RF: 0 sennosides-docusate sodium 1 EACH tablet 2 ea PO BID RF: 0 melatonin 3 MG tablet,disintegrating 3 mg PO QHS RF: 0 tamsulosin 0.4 mg Capsule 0.4 mg PO QHS RF: 0 fluticasone propionate 110 mcg/actuation Hfa Aerosol Inhaler 1 puff INHALATION BID RF: 0 insulin aspart U-100 [Novolog Flexpen U-100 Insulin] 100 unit/mL (3 mL) Insulin Pen 12 unit SUBCUT TID RF: 0 Basaglar KwikPen U-100 Insulin 100 unit/mL (3 mL) Insulin Pen 18 unit SUBCUT QPM RF: 0 Brilinta 90 mg Tablet 90 mg PO BID RF: 0 menthol-zinc oxide 1 APPLIC ointment 1 applic TOPICAL 0600,2200 RF: 0 Changed furosemide 40 mg tablet 40 mg PO BID Qty: 0 RF: 0 Referrals / Follow Up: Prashanth Peña MD [STAFF PHYSICIAN] - See Referral Note (As scheduled) Phillip Lindo MD [Primary Care Provider] - In 1 Week Disposition Disposition (needs filled in before D/C Order can be placed): [facility] Facility Charges/Coding Addendum Addendum: Patient was seen and examined independently of Lula Ledesma, he is currently on room air and he appears to be medically stable for discharge back to his extended care facility. On examination he appeared older than his stated age. Vital signs as documented. Skin warm and dry and without overt rashes. Neck without JVD, neck was supple, trachea midline, thyroid was normal. Lungs clear bilaterally, normal air movement was noted. Heart exam notable for regular rhythm, normal sounds and absence of murmurs, rubs or gallops. Abdomen unremarkable and without evidence of organomegaly, masses, or abdominal aortic enlargement. Bowel sounds are present, abdomen is not distended. There is a colostomy in place in the left lower quadrant, there is also a suprapubic catheter in place. Extremities nonedematous, no cyanosis was noted, no clubbing was noted. Neuro: Cranial nerves II through XII are grossly intact, patient has right hemiplegia. Psych: Patient is alert and oriented x3, he does not appear anxious or depressed, he does not appear agitated. Patient appears stable for discharge back to his extended care facility, I have reviewed Lula Ledesma's discharge summary including her medical assessment and plan of care and endorse it. Visit Charges Inpatient E&M: 84292 Disch Hosp
--- NOTE | 2021-02-18 12:04 | CM.ED ---
SW Note Referral Source: PCU Tetryl Screen Operator Referral Reason: Return to [facility] PCU Tetry[employer] Screen Operator Nydia called this magazine writer. Patient is from [facility] and can return to [facility] today. Nydia will provide ER staff with transfer and med list and those items were tubed to the ED and sent back with patient to [facility]. CONTRERAS asked secretary bookkeeper Eliane to arrange transport and she arranged transport for 1pm. No further SW needs at this time. RN updated Plan: Return to [facility]. Vashti FITZGERALD
--- NOTE | 2021-02-18 12:57 | NURSING ---
report called to [facility] with no questions. in at bedside. pt up in bed eating dinner.
[2021-02-18 13:16] LABS: Bedside Glucose 191 mg/dL (70-110)
== END 2021-02-18 14:20 | disposition skilled nursing facility (03) | DRG 291 ==
LOC: ED 16:23 → PCU 19:34
PROVIDERS: Admitting Provider Internal Medicine; Emergency Provider Emergency Medicine; PCP Family Medicine; Visit Provider Internal Medicine
DX: I11.0 Hypertensive heart disease with heart failure (principal); J96.21 Acute and chronic respiratory failure with hypoxia; G93.41 Metabolic encephalopathy; I69.351 Hemiplegia and hemiparesis following cerebral infarction affecting right dominant side; I25.810 Atherosclerosis of coronary artery bypass graft(s) without angina pectoris; Z68.41 Body mass index [BMI] 40.0-44.9, adult; I50.33 Acute on chronic diastolic (congestive) heart failure; R82.71 Bacteriuria; I95.9 Hypotension, unspecified; I16.0 Hypertensive urgency; I25.5 Ischemic cardiomyopathy; I25.10 Atherosclerotic heart disease of native coronary artery without angina pectoris; J44.9 Chronic obstructive pulmonary disease, unspecified; E11.9 Type 2 diabetes mellitus without complications; Z20.822 Contact with and (suspected) exposure to COVID-19; R13.10 Dysphagia, unspecified; E78.5 Hyperlipidemia, unspecified; G47.33 Obstructive sleep apnea (adult) (pediatric); G25.81 Restless legs syndrome; N40.0 Benign prostatic hyperplasia without lower urinary tract symptoms; K21.9 Gastro-esophageal reflux disease without esophagitis; F32.9 Major depressive disorder, single episode, unspecified; F41.9 Anxiety disorder, unspecified; E66.01 Morbid (severe) obesity due to excess calories; Z93.59 Other cystostomy status; Z93.3 Colostomy status; Z79.51 Long term (current) use of inhaled steroids; Z79.02 Long term (current) use of antithrombotics/antiplatelets; Z79.82 Long term (current) use of aspirin; Z79.4 Long term (current) use of insulin; Z79.899 Other long term (current) drug therapy; I25.2 Old myocardial infarction; Z87.820 Personal history of traumatic brain injury; Z87.440 Personal history of urinary (tract) infections; Z87.891 Personal history of nicotine dependence; Z95.5 Presence of coronary angioplasty implant and graft; Z95.1 Presence of aortocoronary bypass graft
CPT/HCPCS: 36415; 71045; 71275; 80048; 80053; 81001; 82803; 82962; 83605; 83880; 84484; 85025; 87040; 87077; 87086; 87088; 87186; 87426; 93005; 94002; 94003; 94640; 99251; 99285; 99406; Q9967; A4216; G0463; J1940

== ENCOUNTER 2021-02-18 21:11 | Inpatient (IN) | payer MEDICARE, MEDICAID, SELFPAY ==
[2017-02-20 12:18] VITALS: BMI 46.4
[2021-02-18] VITALS (8 sets, daily range): BP systolic 148–194; BP diastolic 86–134; PULSE 89–133; RESP 14–49; TEMP 37.6; O2SAT 60–96; BMI 34.9
--- NOTE | 2021-02-18 21:32 | EKG12_ITS ---
Test Reason : SOB Blood Pressure : / mmHG Vent. Rate : 131 BPM Atrial Rate : 125 BPM P-R Int : 000 ms QRS Dur : 108 ms QT Int : 306 ms P-R-T Axes : 000 077 114 degrees QTc Int : [address] & T wave abnormality, consider inferolateral ischemia Abnormal ECG Confirmed by SHERYL MATTA, ALVARO ([id number]), editor managing newspaper EMMANUEL CONTRERAS ([id number]) on 02/22/2021 7:03:26 AM Referred By: KAJAL Confirmed By:ALVARO SAUCEDO MD
--- NOTE | 2021-02-18 21:36 | EDS_ITS ---
HPI History of Present Illness Chief Complaint: Shortness of Breath Informant: patient, spouse/S.O. and EMS Narrative Narrative: Patient presents acutely short of breath. Very limited history from the patient due to respiratory distress, BiPAP, etc. Even the patient's is unable to discern what he is saying to me. Apparently he was just discharged from the hospital for congestive heart failure and was doing well, [facility]. Patient 60% oxygen saturations prior to being put on BiPAP here in the emergency room. [facility] Medical History Acute on chronic systolic (congestive) heart failure Acute pulmonary edema (09/14/20) Acute respiratory failure with hypoxia (09/14/20) Acute respiratory failure with hypoxia and hypercapnia Alcohol abuse Allergic rhinitis Anemia Anxiety Atherosclerosis Atherosclerosis of coronary artery bypass graft without angina pectoris Benign prostatic hyperplasia Chronic combined systolic and diastolic CHF (congestive heart failure) COPD (chronic obstructive pulmonary disease) COPD with acute exacerbation CVA (cerebral vascular accident) Depression Diabetes Dysphagia Essential (primary) hypertension GERD (gastroesophageal reflux disease) Heart failure History of non-ST elevation myocardial infarction (NSTEMI) (02/21/19) HTN (hypertension) Hyperlipidemia Intraparenchymal hemorrhage of brain Intraventricular hemorrhage Ischemic cardiomyopathy Morbid obesity Myocardial infarct Neuromuscular dysfunction of bladder Nicotine dependence Obesity Obstructive sleep apnea Osteomyelitis of sacrum Recurrent UTI (urinary tract infection) Reflux esophagitis Restless leg syndrome Right hemiplegia RLS (restless legs syndrome) Sleep apnea Subarachnoid hemorrhage Subdural hematoma Tobacco abuse Traumatic brain injury Type 2 diabetes mellitus Home Medications amantadine HCl 100 mg PO DAILY 04/17/18 [History Last Taken 02/17/21] pantoprazole 40 mg PO DAILY 04/17/18 [History Last Taken 02/17/21] pramipexole 0.25 mg PO QHS 04/17/18 [History Last Taken 02/16/21] pravastatin 80 mg PO QHS 04/17/18 [History Last Taken 02/16/21] potassium chloride 20 mEq tablet,extended release(part/cryst) 20 meq PO DAILY 90 Days #90 tab 06/17/18 [History Last Taken 02/17/21] fluoxetine 60 mg PO DAILY 02/20/19 [History Last Taken 02/17/21] nitroglycerin 0.4 mg SUBLINGUAL PRN PRN 02/20/19 [History Last Taken Unknown] aspirin 81 mg PO DAILY@0800 02/24/19 [History Last Taken 02/17/21] acetaminophen 1,000 mg PO Q6H PRN PRN tab 03/03/19 [Rx Last Taken Unknown] bisacodyl 10 mg RC DAILY PRN PRN 09/14/19 [History Last Taken Unknown] insulin aspart U-100 [Novolog Flexpen U-100 Insulin] See Protocol SC TIDCM 09/14/19 [History Last Taken Unknown] oxycodone 5 mg PO Q6H PRN PRN 09/14/19 [History Last Taken 02/17/21] sennosides-docusate sodium 2 ea PO BID 01/02/20 [History Last Taken 02/17/21] melatonin 3 mg PO QHS 09/14/20 [History Last Taken 02/16/21] carvedilol 12.5 mg tablet 12.5 mg PO BID 10/10/20 [History Last Taken 02/17/21] sacubitril 24 mg-valsartan 26 mg tablet 1 tab PO BID 10/10/20 [History Last Taken 02/17/21] Basaglar KwikPen U-100 Insulin 18 unit SUBCUT QPM 02/17/21 [History Last Taken 02/17/21] Brilinta 90 mg PO BID 02/17/21 [History Last Taken 02/17/21] fluticasone propionate 1 puff INHALATION BID 02/17/21 [History Last Taken 02/17/21] insulin aspart U-100 [Novolog Flexpen U-100 Insulin] 12 unit SUBCUT TID 02/17/21 [History Last Taken 02/17/21] menthol-zinc oxide 1 applic TOPICAL 0600,2200 02/17/21 [History Last Taken Unknown] tamsulosin 0.4 mg PO QHS 02/17/21 [History Last Taken 02/16/21] furosemide 40 mg PO BID #0 tab 02/18/21 [Rx Last Taken Unknown] Allergy/AdvReac Type Severity Reaction Status Date / Time atorvastatin Allergy PT UNSURE Verified 02/18/21 21:16 OF REACTION cilostazol Allergy Hives Verified 02/18/21 21:16 colestipol Allergy Hives Verified 02/18/21 21:16 diltiazem Allergy Hives Verified 02/18/21 21:16 gemfibrozil Allergy Hives Verified 02/18/21 21:16 naproxen [From Naprosyn] Allergy Hives Verified 02/18/21 21:16 niacin Allergy PT UNSURE Verified 02/18/21 21:16 OF REACTION Nitrate Analogues Allergy Hives Verified 02/18/21 21:16 Penicillins Allergy Hives Verified 02/18/21 21:16 pravastatin Allergy NEEDS Verified 02/18/21 21:16 FOLLOW-UP procainamide Allergy Hives Verified 02/18/21 21:16 procaine Allergy NEEDS Verified 02/18/21 21:16 FOLLOW-UP rosuvastatin Allergy Hives Verified 02/18/21 21:16 simvastatin Allergy Hives Verified 02/18/21 21:16 isosorbide AdvReac Severe Unknown Verified 02/18/21 21:16 Family History (Updated 02/17/21 @ 16:57 by Lula Ledesma DATA INTEGRITY ANALYST, DATA INTEGRITY ANALYST-C) Brother Heart disease Father Heart disease Mother No history of heart disease Surgical History Chronic suprapubic catheter H/O coronary angioplasty H/O coronary artery bypass surgery (2001) History of coronary artery stent placement (09/18/20) History of left heart catheterization (09/17/20) PEG (percutaneous endoscopic gastrostomy) adjustment/replacement/removal Status post ileostomy Status post osteotomy (01/2018) Social History Smoking Status: Current every day smoker tobacco type: cigarettes how long ago did patient quit smokin, 1ppd second hand exposure: Yes alcohol intake: never caffeine: Yes Type: coffee Number of servings: 3 what type of physical activity do you participate in: none ROS ROS ED Review of Systems ROS Unobtainable: other Details: Due to condition/respiratory distress EXAM Physical Exam Const Vital Signs: 02/18/21 21:12 02/18/21 21:17 02/18/21 21:33 Temperature 99.7 F H Temperature Source Axillary Pulse Rate 133 H 119 H Respiratory Rate 45 H 49 H Respiratory Effort Respiratory Depth Respiratory Pattern Blood Pressure 194/134 H 167/94 H Blood Pressure Mean 154 118 Pulse Ox 96 60 95 Oxygen Delivery Method Non-Rebreather Bi-pap Bi-pap Oxygen Flow Rate (L/min) 15 60 Fraction of Inspired Oxygen (FIO2) 97 02/18/21 21:44 02/18/21 21:47 02/18/21 21:48 Temperature Temperature Source Pulse Rate 105 H 89 Respiratory Rate 29 H Respiratory Effort Labored Respiratory Depth Deep Respiratory Pattern Tachypnea Blood Pressure 167/94 H Blood Pressure Mean Pulse Ox 96 Oxygen Delivery Method Bi-pap Oxygen Flow Rate (L/min) Fraction of Inspired Oxygen (FIO2) 60 02/18/21 22:40 02/18/21 23:04 02/18/21 23:53 Temperature Temperature Source Pulse Rate 99 91 89 Respiratory Rate 25 H 24 H 22 H Respiratory Effort Respiratory Depth Respiratory Pattern Tachypnea Tachypnea Blood Pressure 148/86 H Blood Pressure Mean 106 Pulse Ox 95 94 94 Oxygen Delivery Method Bi-pap Oxygen Flow Rate (L/min) 60 Fraction of Inspired Oxygen (FIO2) 60 50 02/19/21 00:05 Temperature 97.6 F L Temperature Source Temporal Pulse Rate 87 Respiratory Rate 21 H Respiratory Effort Respiratory Depth Respiratory Pattern Blood Pressure 133/68 H Blood Pressure Mean 89 Pulse Ox 95 Oxygen Delivery Method Bi-pap Oxygen Flow Rate (L/min) 60 Fraction of Inspired Oxygen (FIO2) Positive well nourished and well developed Constitutional Narrative: Acute respiratory distress General Appearance ED: well developed Exam Limitations: physical limitations Nutritional Appearance: morbidly obese HEENT Reports moist mucous membranes normocephalic and atraumatic Eyes PERRL and EOMs intact bilaterally Neck full ROM and supple Neck Narrative: Unable to rule out JVD, limited exam due to obesity Resp Resp Narrative: Moving air, equal bilaterally, limited evaluation due to obesity. Acute respiratory distress, diaphoretic. Cardio regular rate, regular rhythm and no murmurs Rate: tachycardic GI non-tender and non-distended Auscultation: normoactive bowel sounds Palpation: soft Back/Spine no CVA tenderness General Back: other FROM Extremity normal to inspection General Extremety ED: Negative for edema, pulses abnormal or tenderness General Extremity: Negative for edema or pulses abnormal Neuro oriented x3, CN's II-XII intact bilaterally and no sensory deficits noted Sensorium / Orientation: awake and alert Motor Exam: strength 5/5 throughout Skin no rashes or lesions noted and no wounds MDM MDM MDM Narrative Medical decision making narrative: Respiratory put the patient on BiPAP immediately. Patient was still struggling with a blood pressure of 220. The spouse was at the bedside during the initial evaluation. I asked both of them about intubation, and they both confirm that he is DNR Comfort Care arrest with NO intubation. The patient indicated that he would rather on BiPAP then be intubated. Nitroglycerin and Lasix were ordered along with continuing the BiPAP. Patient just had negative CTA ruling out PE, and a negative Covid test of those tests are not going to be repeated at this time. Shortly after getting these medications and BiPAP, patient is much better on reevaluation with blood pressure down to 120, tachycardia improved down to around 100, and his effort of breathing is improved and he does have subjective improvement as well. Plan is for admission, will admit to PCU since his condition is so much improved. Certainly his blood pressure could have caused all this, we did get that under control, but events at the [facility] when he started getting worse or unknown if there were any. Of note, patient had an echocardiogram 01/21 that showed no pericardial effusion, normal systolic function with EF 55%, rand stage I diastolic dysfunction. It was plausible that his possible ectopy on the EKG represents electrical alternans, since the patient is so much better after the above treatment I do not think he has pericardial tamponade. Lab Data Attestation: I reviewed the patient's lab results. Labs: Laboratory Results - last 24 hr 02/18/21 02/18/21 02/18/21 21:15 21:15 21:15 WBC 15.1 H RBC 4.54 L Hgb 12.3 L Hct 40.8 MCV 89.9 MCH 27.1 MCHC 30.1 L RDW Std Deviation 50.1 H RDW Coeff of Sherin 15.2 H Plt Count 288 MPV 12.1 H Immature Gran % (Auto) 0.700 Neut % (Auto) 77.9 H Lymph % (Auto) 13.3 L [place] % (Auto) 6.1 Eos % (Auto) 1.3 Baso % (Auto) 0.7 Absolute Neuts (auto) 11.8 H Absolute Lymphs (auto) 2.01 Nucleated RBC % 0 Sodium 137 Potassium 4.1 Chloride 102 Carbon Dioxide 27.0 Anion Gap 8 BUN 21 H Creatinine 1.14 Estim Creat Clear Calc 72.06 Est GFR (MDRD) Af Amer 82 Est GFR (MDRD) Non-Af 67 BUN/Creatinine Ratio 18.4 Glucose 347 H Calcium 9.4 Troponin I High Sens 34 B-Natriuretic Peptide 321.6 H Radiography Diagnostic Testing: Radiology Impression Chest X-Ray 02/18/21 21:42 IMPRESSION: Stable portable chest x-ray. No acute consolidative process. at 2316 Reported and signed by: Nino Soares MD Electronically Signed: Nino Soares MD at 23:15 EDT Tel , Service support , EKG Initial EKG: Attestation: I personally reviewed and interpreted this EKG as follows: Interpretation: No Acute Injury Pattern and Non-Specific ST Changes (Mostly T wave flattening. No ST elevation or depressions noted that are not artifact.) Comments: Narrow complex tachycardia that appears to be regular with PVCs, artifact present. Unable to determine origin. Prior EKG tracings: available for review (Similar morphology all leads, similar T waves) Critical Care Time Critical Care Time: Yes Critical care time (excluding procedures): 30-74 minutes (35 min), Including time spent:, Discussing w/Patient &/or Family/Motion And Time Study Teacher, Discussing w/Consultants, Arranging Admission or Transfer and Performing Direct Patient Care at Bedside Discharge Plan Dx/Rx/DC Orders Clinical Impression: Acute and chronic respiratory failure with hypoxia, Acute exacerbation of CHF (congestive heart failure), Hypertensive urgency Disposition Disposition: Acute Care [facility]
--- NOTE | 2021-02-18 21:42 | RAD_ITS ---
HISTORY: sob EXAMINATION/TECHNIQUE: XR Chest 1 View: Portable upright AP chest x-ray COMPARISON: 02/17/21 FINDINGS: LINES/DEVICES: None. LUNGS: No consolidation, edema or effusion. No pneumothorax. MEDIASTINUM AND CARDIOVASCULAR STRUCTURES: Cardiac silhouette not enlarged. Stable CABG changes. Central airways and mediastinal contour are unremarkable. BONES AND SOFT TISSUES: No acute bony abnormalities. RAD/Chest 1 View (Portable) IMPRESSION: Stable portable chest x-ray. No acute consolidative process. at 2316 Reported and signed by: Nino Soares MD Electronically Signed: Nino Soares MD at 23:15 EDT Tel , Service support ,
[2021-02-18] MEDS: Furosemide 40 MG/4 ML Vial IV (21:43)
[2021-02-18] MEDS: Nitroglycerin SL (ED/IMG/CATH) 0.4 MG TABLET SL (21:44)
[2021-02-18 21:54] LABS: Absolute Lymphocyte Count 2.01 X10^3/uL (0.83-4.51); Absolute Neutrophil Count 11.8 X10^3/uL (2.0-7.7); Basophil% 0.7 % (0-1); Eosinophils% 1.3 % (0-5); Hematocrit 40.8 % (40-54); Hemoglobin 12.3 g/dL (13.0-16.5); Lymphocyte # 2.01 X10^3/ul (0.83-4.51); Lymphocyte % 13.3 % (19-41); Mean Corp Hgb Conc 30.1 g/dL (32-36); Mean Corpuscular Hgb 27.1 pg (27.0-32.0); Mean Corpuscular Volume 89.9 fL (80-94); Mean Platelet Vol. 12.1 fl (6.2-12.0); Monocyte# 0.93 X10^3/uL; Monocyte% 6.1 % (0-10); NRBC Flagged by Analyzer 0 % (0-5); Neutrophil # 11.78 X10^3/uL (2.7-7.7); Neutrophil % 77.9 % (47-70); Platelet Count 288 K/mm3 (150-450); RBC Distribution Width CV 15.2 % (11.6-14.6); RBC Distribution Width SD 50.1 fl (35.1-43.9); Red Blood Count 4.54 M/mm3 (4.6-6.2); White Blood Count 15.1 K/mm3 (4.4-11.0)
[2021-02-18 22:08] LABS: Anion Gap 8 (5-15); BUN 21 mg/dL (7-18); BUN/Creat Ratio 18.4 RATIO (10-20); Calcium,Total 9.4 mg/dL (8.5-10.1); Chloride 102 mmol/L (98-107); Creatinine, Serum 1.14 mg/dL (0.70-1.30); EST Glomerular Filtration Rate 67 mL/min (>60); Est Glom Filt Rate - Afr Amer 82 mL/min (>60); Estimated Creatinine Clearance 72.06 ml/min; Glucose 347 mg/dL (74-106); Potassium 4.1 mmol/L (3.5-5.1); Sodium Level 137 mmol/L (136-145); Troponin-I HS 34 pg/mL (3.0-78.0)
[2021-02-18 22:28] LABS: BNP,B-Type NATRIURETIC PEPTIDE 321.6 pg/mL (0-100)
--- NOTE | 2021-02-18 23:53 | CPS ---
PATIENT WEANED TO .50% AT TIME OF VISIT.
[2021-02-19] VITALS (18 sets, daily range): BP systolic 108–133; BP diastolic 55–71; PULSE 72–92; RESP 14–24; TEMP 36.1–37; O2SAT 95–100; BMI 37.9
--- NOTE | 2021-02-19 00:30 | HP.PCM.HOS_ITS ---
[facility] - General General Date of Admission: 02/19/21 HPI Narrative FABY GARCIA, is a 70 M with a significant history of heart failure who presents to the emergency department with persistent shortness of breath that started on the same day of presentation. Of note patient was discharged from the hospital on the same day of this presentation. He was admitted on 02/17/2021 and discharged on 02/18/2021. During his recent hospitalization (02/17/2021 to 02/18/2021) he was treated for acute hypoxic respiratory failure secondary acute on chronic heart failure with preserved ejection fraction and acute metabolic encephalopathy. Patient was subsequently discharged to the senior care where he returns again with increasing shortness of breath. Reportedly and his oxygen saturation was as 60s. He was diaphoretic. History was taken from the emergency department doctor as patient was lethargic and he was on BiPAP. who was by the bedside could not provide much history except that she stated that the senior care called and said the patient was having shortness of breath. Emergent department doctor reported that patient on presentation had severe elevated blood pressure with systolic in the 220s; and heart rate in the 130s. Patient was placed on the BiPAP given nitroglycerin and Lasix IV. Reportedly patient improved dramatically after the above treatment. [facility] Medical History Acute on chronic systolic (congestive) heart failure Acute pulmonary edema (09/14/20) Acute respiratory failure with hypoxia (09/14/20) Acute respiratory failure with hypoxia and hypercapnia Alcohol abuse Allergic rhinitis Anemia Anxiety Atherosclerosis Atherosclerosis of coronary artery bypass graft without angina pectoris Benign prostatic hyperplasia Chronic combined systolic and diastolic CHF (congestive heart failure) COPD (chronic obstructive pulmonary disease) COPD with acute exacerbation CVA (cerebral vascular accident) Depression Diabetes Dysphagia Essential (primary) hypertension GERD (gastroesophageal reflux disease) Heart failure History of non-ST elevation myocardial infarction (NSTEMI) (02/21/19) HTN (hypertension) Hyperlipidemia Intraparenchymal hemorrhage of brain Intraventricular hemorrhage Ischemic cardiomyopathy Morbid obesity Myocardial infarct Neuromuscular dysfunction of bladder Nicotine dependence Obesity Obstructive sleep apnea Osteomyelitis of sacrum Recurrent UTI (urinary tract infection) Reflux esophagitis Restless leg syndrome Right hemiplegia RLS (restless legs syndrome) Sleep apnea Subarachnoid hemorrhage Subdural hematoma Tobacco abuse Traumatic brain injury Type 2 diabetes mellitus Home Medications amantadine HCl 100 mg PO DAILY 04/17/18 [History Last Taken 02/17/21] pantoprazole 40 mg PO DAILY 04/17/18 [History Last Taken 02/17/21] pramipexole 0.25 mg PO QHS 04/17/18 [History Last Taken 02/16/21] pravastatin 80 mg PO QHS 04/17/18 [History Last Taken 02/16/21] potassium chloride 20 mEq tablet,extended release(part/cryst) 20 meq PO DAILY 90 Days #90 tab 06/17/18 [History Last Taken 02/17/21] fluoxetine 60 mg PO DAILY 02/20/19 [History Last Taken 02/17/21] nitroglycerin 0.4 mg SUBLINGUAL PRN PRN 02/20/19 [History Last Taken Unknown] aspirin 81 mg PO DAILY@0800 02/24/19 [History Last Taken 02/17/21] acetaminophen 1,000 mg PO Q6H PRN PRN tab 03/03/19 [Rx Last Taken Unknown] bisacodyl 10 mg RC DAILY PRN PRN 09/14/19 [History Last Taken Unknown] insulin aspart U-100 [Novolog Flexpen U-100 Insulin] See Protocol SC TIDCM 09/14/19 [History Last Taken Unknown] oxycodone 5 mg PO Q6H PRN PRN 09/14/19 [History Last Taken 02/17/21] sennosides-docusate sodium 2 ea PO BID 01/02/20 [History Last Taken 02/17/21] melatonin 3 mg PO QHS 09/14/20 [History Last Taken 02/16/21] carvedilol 12.5 mg tablet 12.5 mg PO BID 10/10/20 [History Last Taken 02/17/21] sacubitril 24 mg-valsartan 26 mg tablet 1 tab PO BID 10/10/20 [History Last Taken 02/17/21] Basaglar KwikPen U-100 Insulin 18 unit SUBCUT QPM 02/17/21 [History Last Taken 02/17/21] Brilinta 90 mg PO BID 02/17/21 [History Last Taken 02/17/21] fluticasone propionate 1 puff INHALATION BID 02/17/21 [History Last Taken 02/17/21] insulin aspart U-100 [Novolog Flexpen U-100 Insulin] 12 unit SUBCUT TID 02/17/21 [History Last Taken 02/17/21] menthol-zinc oxide 1 applic TOPICAL 0600,2200 02/17/21 [History Last Taken Unknown] tamsulosin 0.4 mg PO QHS 02/17/21 [History Last Taken 02/16/21] furosemide 40 mg PO BID #0 tab 02/18/21 [Rx Last Taken Unknown] Allergy/AdvReac Type Severity Reaction Status Date / Time atorvastatin Allergy PT UNSURE Verified 02/18/21 21:16 OF REACTION cilostazol Allergy Hives Verified 02/18/21 21:16 colestipol Allergy Hives Verified 02/18/21 21:16 diltiazem Allergy Hives Verified 02/18/21 21:16 gemfibrozil Allergy Hives Verified 02/18/21 21:16 naproxen [From Naprosyn] Allergy Hives Verified 02/18/21 21:16 niacin Allergy PT UNSURE Verified 02/18/21 21:16 OF REACTION Nitrate Analogues Allergy Hives Verified 02/18/21 21:16 Penicillins Allergy Hives Verified 02/18/21 21:16 pravastatin Allergy NEEDS Verified 02/18/21 21:16 FOLLOW-UP procainamide Allergy Hives Verified 02/18/21 21:16 procaine Allergy NEEDS Verified 02/18/21 21:16 FOLLOW-UP rosuvastatin Allergy Hives Verified 02/18/21 21:16 simvastatin Allergy Hives Verified 02/18/21 21:16 isosorbide AdvReac Severe Unknown Verified 02/18/21 21:16 Family History Brother Heart disease Father Heart disease Mother No history of heart disease Surgical History Chronic suprapubic catheter H/O coronary angioplasty H/O coronary artery bypass surgery (2001) History of coronary artery stent placement (09/18/20) History of left heart catheterization (09/17/20) PEG (percutaneous endoscopic gastrostomy) adjustment/replacement/removal Status post ileostomy Status post osteotomy (01/2018) Social History Smoking Status: Light Smoker (<10/day) how long ago did patient quit smokin, 1ppd second hand exposure: Yes alcohol intake: never caffeine: Yes Type: coffee Number of servings: 3 what type of physical activity do you participate in: none ROS Review of Systems ROS Unobtainable: due to encephalopathy Vital Signs Vital Signs Vital Signs: 02/18/21 21:12 02/18/21 21:17 02/18/21 21:33 Temperature 99.7 F H Temperature Source Axillary Pulse Rate 133 H 119 H Respiratory Rate 45 H 49 H Respiratory Effort Respiratory Depth Respiratory Pattern Blood Pressure 194/134 H 167/94 H Blood Pressure Mean 154 118 Pulse Ox 96 60 95 Oxygen Delivery Method Non-Rebreather Bi-pap Bi-pap Oxygen Flow Rate (L/min) 15 60 Fraction of Inspired Oxygen (FIO2) 97 02/18/21 21:44 02/18/21 21:47 02/18/21 21:48 Temperature Temperature Source Pulse Rate 105 H 89 Respiratory Rate 29 H Respiratory Effort Labored Respiratory Depth Deep Respiratory Pattern Tachypnea Blood Pressure 167/94 H Blood Pressure Mean Pulse Ox 96 Oxygen Delivery Method Bi-pap Oxygen Flow Rate (L/min) Fraction of Inspired Oxygen (FIO2) 60 02/18/21 22:40 02/18/21 23:04 02/18/21 23:53 Temperature Temperature Source Pulse Rate 99 91 89 Respiratory Rate 25 H 24 H 22 H Respiratory Effort Respiratory Depth Respiratory Pattern Tachypnea Tachypnea Blood Pressure 148/86 H Blood Pressure Mean 106 Pulse Ox 95 94 94 Oxygen Delivery Method Bi-pap Oxygen Flow Rate (L/min) 60 Fraction of Inspired Oxygen (FIO2) 60 50 02/19/21 00:05 Temperature 97.6 F L Temperature Source Temporal Pulse Rate 87 Respiratory Rate 21 H Respiratory Effort Respiratory Depth Respiratory Pattern Blood Pressure 133/68 H Blood Pressure Mean 89 Pulse Ox 95 Oxygen Delivery Method Bi-pap Oxygen Flow Rate (L/min) 60 Fraction of Inspired Oxygen (FIO2) Weight Weight: 127.006 kg Body Mass Index (BMI) 34.9 Physical Exam Narrative Physical exam: General: Well-nourished, well-developed. Head: Normocephalic, atraumatic, no tenderness Eyes: Vision grossly intact. ENT, no trauma, moist mucous membranes, no rhinorrhea Neck: Nontender, full range of motion, no spinal tenderness, deformities, step- off CVS: Regular rate and rhythm. S1-S2 present. No murmur, gallop or rub. Respiratory : Mild Rales. chest wall nontender, no wheezing Abdomen: Soft, nontender, nondistended, normal bowel sounds, no masses. Colostomy/ileostomy present. Ileostomy present : Deferred Back: Nontender, no CVA tenderness, no midline spinal tenderness, deformities, step-offs Extremities: Nontender full range of motion, no trauma Skin: Ulcer on coccyx. Normal color, no trauma, abrasions Neuro: Lethargic. Not answering most questions. Psychiatry: Not depressed. Not anxious. Results Lab / Micro Data Result Diagrams: 02/18/21 21:15 02/18/21 21:15 Labs: Laboratory Results - last 24 hr 02/18/21 21:15: WBC 15.1 H, RBC 4.54 L, Hgb 12.3 L, Hct 40.8, MCV 89.9, MCH 27.1, MCHC 30.1 L, RDW Std Deviation 50.1 H, RDW Coeff of Sherin 15.2 H, Plt Count 288, MPV 12.1 H, Immature Gran % (Auto) 0.700, Neut % (Auto) 77.9 H, Lymph % (Auto) 13.3 L, [place] % (Auto) 6.1, Eos % (Auto) 1.3, Baso % (Auto) 0.7, Absolute Neuts (auto) 11.8 H, Absolute Lymphs (auto) 2.01, Nucleated RBC % 0 02/18/21 21:15: Sodium 137, Potassium 4.1, Chloride 102, Carbon Dioxide 27.0, Anion Gap 8, BUN 21 H, Creatinine 1.14, Estim Creat Clear Calc 72.06, Est GFR (MDRD) Af Amer 82, Est GFR (MDRD) Non-Af 67, BUN/Creatinine Ratio 18.4, Glucose 347 H, Calcium 9.4, Troponin I High Sens 34 02/18/21 21:15: B-Natriuretic Peptide 321.6 H Radiology Impression Chest X-Ray 02/18/21 21:42 IMPRESSION: Stable portable chest x-ray. No acute consolidative process. at 2316 Reported and signed by: Nino Soares MD Electronically Signed: Nino Soares MD at 23:15 EDT Tel , Service support , Assessment & Plan Assessment/Plan (1) Hypertensive emergency: (2) Metabolic encephalopathy: PLAN: Acute on chronic respiratory failure Like secondary to hypertensive emergency and acute on chronic diastolic heart failure Treatment as below. Hypertensive emergency Received nitroglycerin, Lasix and BiPAP at emergent department and his blood pressure became controlled. Resume home blood pressure medications of carvedilol furosemide and Entresto. Acute on chronic heart failure with preserved ejection fraction Echocardiogram on 01/21/2021 showed ejection fraction of 55% with stage I diastolic dysfunction. Mild edema on feet Impression of chest x-ray by radiology: Stable portable chest x-ray. No acute consolidative process. Actual chest x-ray (02/18/2021)and (02/17/2021) was independently reviewed and I agree radiologist interpretation. Chest CTA with no pleural embolism or dissection. Small bilateral pleural effusion and some bibasal atelectasis. Daily weights. Strict intake and output. Fluid restriction Continue BiPAP started emergency department.. Metabolic encephalopathy Likely secondary to hypertensive emergency. Keep n.p.o. while sedated. Hold all narcotics at this time. Diabetes mellitus Blood glucose is not within goal. Continue correction scale insulin ordered. Basal insulin continued. Adjust prandial insulin. Continue correction scale insulin ordered. Obstructive apnea: BiPAP nightly when of continuous BiPAP. Stage II pressure ulcer: Calmoseptine ordered. DVT prophylaxis: Subcutaneous Lovenox ordered. Charges/Coding Visit Charges Inpatient E&M: 74850 Init Hosp L3
[2021-02-19] MEDS: Menthol/Lanolin/Calamine/Znox 113 GM Tube 1 APPLIC TOPICAL ×2 (05:17→21:48)
[2021-02-19 06:07] LABS: Absolute Lymphocyte Count 1.08 X10^3/uL (0.83-4.51); Absolute Neutrophil Count 6.8 X10^3/uL (2.0-7.7); Basophil# 0.04 X10^3/uL; Basophil% 0.5 % (0-1); Eosinophils% 1.1 % (0-5); Hemoglobin 10.4 g/dL (13.0-16.5); Lymphocyte # 1.08 X10^3/ul (0.83-4.51); Lymphocyte % 12.3 % (19-41); Mean Corp Hgb Conc 30.6 g/dL (32-36); Mean Corpuscular Hgb 27.7 pg (27.0-32.0); Mean Corpuscular Volume 90.4 fL (80-94); Mean Platelet Vol. 12.1 fl (6.2-12.0); Monocyte# 0.77 X10^3/uL; Monocyte% 8.8 % (0-10); NRBC Flagged by Analyzer 0 % (0-5); Neutrophil # 6.76 X10^3/uL (2.7-7.7); Platelet Count 207 K/mm3 (150-450); RBC Distribution Width CV 15.2 % (11.6-14.6); RBC Distribution Width SD 50.2 fl (35.1-43.9); Red Blood Count 3.76 M/mm3 (4.6-6.2); White Blood Count 8.8 K/mm3 (4.4-11.0)
[2021-02-19 06:40] LABS: Anion Gap 6 (5-15); BUN 22 mg/dL (7-18); BUN/Creat Ratio 25.3 RATIO (10-20); Calcium,Total 8.4 mg/dL (8.5-10.1); Chloride 106 mmol/L (98-107); Creatinine, Serum 0.87 mg/dL (0.70-1.30); EST Glomerular Filtration Rate 92 mL/min (>60); Est Glom Filt Rate - Afr Amer 112 mL/min (>60); Estimated Creatinine Clearance 94.43 ml/min; Glucose 194 mg/dL (74-106); Potassium 3.8 mmol/L (3.5-5.1); Sodium Level 138 mmol/L (136-145)
[2021-02-19] MEDS: Budesonide Respules 0.5 MG/2 ML AMPUL.NEB. INHALATION ×2 (06:41→19:42)
--- NOTE | 2021-02-19 09:10 | CASEMGMT ---
Patient is from [facility]. SW will fax updates. SW will follow for d/c back to [facility] when ready. Nydia Paniagua MSW RESPIRATORY TECHNICIAN
[2021-02-19] MEDS: Carvedilol 12.5 MG Tablet PO (09:29)
[2021-02-19] MEDS: Amantadine 100 MG Capsule PO (09:29)
[2021-02-19] MEDS: Enoxaparin 40 MG/0.4 ML Syringe SC (09:30)
[2021-02-19] MEDS: TICAGRELOR 90 MG TABLET PO ×2 (09:30→21:47)
[2021-02-19] MEDS: SACUBITRIL/VALSARTAN 24/26 MG TABLET 1 EACH PO ×2 (09:30→21:47)
[2021-02-19] MEDS: Potassium Chloride Oral Tablet 20 MEQ PO (09:30)
[2021-02-19] MEDS: Aspirin 81 MG TAB.CHEW PO (09:30)
[2021-02-19] MEDS: FLUoxetine 20 MG Capsule 60 MG PO (09:30)
[2021-02-19] MEDS: Pantoprazole Sodium 40 MG Tablet PO (09:30)
[2021-02-19] MEDS: Furosemide 40 MG Tablet PO (09:30)
[2021-02-19] MEDS: Senna/Docusate Sodium 1 Tablet 2 TABLET PO ×2 (09:31→21:47)
--- NOTE | 2021-02-19 09:31 | WOUNDNOTE ---
Colostomy appliance is loose to the left lower abdomen. removed the appliance. stoma is pink and moist. sits slightly above the skin level. measures approx 1 1/4. peristomal skin is intact. cleansed peristomal skin with warm water. pat dry. placed a new 2 piece flat [place] appliance with an [employer] ring. pt tolerated well.
--- NOTE | 2021-02-19 09:34 | NURSING ---
Pt had taken off the bipap mask while trying to eat breakfast. patient slightly SOB. placed patient on 4L N/C and pulse ox is currently 99%. CAMILA Pyle aware. Dr Felix had been in to see patient this am as well.
[2021-02-19] MEDS: Insulin Lispro 100 UNIT/ML INSULN.PEN 12 UNIT SC ×3 (09:39→17:31)
[2021-02-19 09:51] LABS: Bedside Glucose 187 mg/dL (70-110)
[2021-02-19] MEDS: oxyCODONE 5 MG Tablet PO (11:21)
[2021-02-19] MEDS: Acetaminophen 325 MG Tablet 650 MG PO (11:22)
--- NOTE | 2021-02-19 11:25 | CASEMGMT ---
During rounds with Nurse Practitioner patient said he has had his bipap for 10 years. He is not sure it is working properly. CONTRERAS placed a call to [facility] and left a message for Margaux inquiring if they would be able to get a different bipap for patient to use while there. Nydia Paniagua PARISH VISITOR CHANO
[2021-02-19 12:50] LABS: Bedside Glucose 155 mg/dL (70-110)
--- NOTE | 2021-02-19 13:07 | PN.HOSP_ITS ---
Documented by User: Lula Ledesma LEADERSHIP DEVELOPMENT INSTRUCTOR, LEADERSHIP DEVELOPMENT INSTRUCTOR-C 02/19/21 13:35 Subjective Subjective Patient seen and examined. Reports intermittent wet cough. Denies significant shortness of breath. Oxygen stable on room air. Not requiring BiPAP. Patient states he feels has BiPAP at [facility] is not working. He states he has had it for about 10 years and some of the buttons do not work in the mask is poor fitting. Objective Data Objective Data Vital Signs: Vital Signs Temp Pulse Resp BP Pulse Ox 98.1 F 83 24 H 128/66 H 95 02/19/21 09:51 02/19/21 09:51 02/19/21 09:51 02/19/21 09:51 02/19/21 09:51 Oxygen Flow Rate (L/min) 60 Oxygen Delivery Method Room Air Weight: 303 lb 12.752 oz Body Mass Index (BMI) 37.9 Intake & Output: Intake and Output for Last 24 Hours 02/17/21 02/18/21 02/19/21 23:59 23:59 23:59 Output Total 850 / 850 Balance -850 / -850 Lab / Micro Data Result Diagrams: 02/19/21 05:26 02/19/21 05:26 Labs: Laboratory Results - last 24 hr 02/18/21 21:15: WBC 15.1 H, RBC 4.54 L, Hgb 12.3 L, Hct 40.8, MCV 89.9, MCH 27 .1, MCHC 30.1 L, RDW Std Deviation 50.1 H, RDW Coeff of Sherin 15.2 H, Plt Count 288, MPV 12.1 H, Immature Gran % (Auto) 0.700, Neut % (Auto) 77.9 H, Lymph % (Auto) 13.3 L, Warren % (Auto) 6.1, Eos % (Auto) 1.3, Baso % (Auto) 0.7, Absolute Neuts (auto) 11.8 H, Absolute Lymphs (auto) 2.01, Nucleated RBC % 0 02/18/21 21:15: Sodium 137, Potassium 4.1, Chloride 102, Carbon Dioxide 27.0, Anion Gap 8, BUN 21 H, Creatinine 1.14, Estim Creat Clear Calc 72.06, Est GFR (MDRD) Af Amer 82, Est GFR (MDRD) Non-Af 67, BUN/Creatinine Ratio 18.4, Glucose 347 H, Calcium 9.4, Troponin I High Sens 34 02/18/21 21:15: B-Natriuretic Peptide 321.6 H 02/19/21 05:26: WBC 8.8, RBC 3.76 L, Hgb 10.4 L, Hct 34.0 L, MCV 90.4, MCH 27.7, MCHC 30.6 L, RDW Std Deviation 50.2 H, RDW Coeff of Sherin 15.2 H, Plt Count 207, MPV 12.1 H, Immature Gran % (Auto) 0.300, Neut % (Auto) 77.0 H, Lymph % (Auto) 12.3 L, Warren % (Auto) 8.8, Eos % (Auto) 1.1, Baso % (Auto) 0.5, Absolute Neuts (auto) 6.8, Absolute Lymphs (auto) 1.08, Nucleated RBC % 0 02/19/21 05:26: Sodium 138, Potassium 3.8, Chloride 106, Carbon Dioxide 26.0, Anion Gap 6, BUN 22 H, Creatinine 0.87, Estim Creat Clear Calc 94.43, Est GFR (MDRD) Af Amer 112, Est GFR (MDRD) Non-Af 92, BUN/Creatinine Ratio 25.3 H, Glucose 194 H, Calcium 8.4 L 02/19/21 09:27: POC Glucose 187 H 02/19/21 12:39: POC Glucose 155 H Radiography Diagnostic Testing: Radiology Impression Chest X-Ray 02/18/21 21:42 IMPRESSION: Stable portable chest x-ray. No acute consolidative process. at 2316 Reported and signed by: Nino Soares MD Electronically Signed: Nino Soares MD at 23:15 EDT Tel , Service support , Physical Exam Const alert, oriented x3 and no apparent distress Orientation / Consciousness: awake, oriented to person, oriented to place and oriented to time Nutritional Appearance: obese HEENT normocephalic and moist oral mucous membranes Eyes PERRL, EOMs intact bilaterally and conjunctivae normal Neck no lymphadenopathy Resp clear to auscultation bilaterally Auscultation: diminished lung sounds Cardio regular rate, regular rhythm and no murmurs Peripheral Pulses: pulses 2+ throughout GI normal to inspection, nondistended, normoactive bowel sounds, non-tender and non-distended Extremity normal to inspection General Extremity: edema bilateral lower extremity Details: mild Skin no rashes or lesions noted Lesions: no lesions Rashes: no rashes Trauma: no lacerations or abrasions Neuro CN's II-XII intact bilaterally, no focal motor deficits, no sensory deficits noted and deep tendon reflexes 2+ bilaterally Psych mental status grossly normal and affect normal Assessment & Plan Assessment/Plan (1) Acute and chronic respiratory failure with hypoxia: (2) Acute exacerbation of CHF (congestive heart failure): PLAN: 1. Acute hypoxic respiratory failure secondary to acute on chronic heart failure with preserved ejection fraction-history of ischemic cardiomyopathy with reduced EF- most recent echocardiogram 01/21/2021 with EF 55%, stage I diastolic dysfunction. Chest x-ray unremarkable. CTA 02/17/21 without PE, small bilateral pleural effusions. Placed on BiPAP on admission. BNP 321. IV Lasix. Strict I&O. Daily weight. Patient no longer on BiPAP, oxygen stable on room air. 2. Chronic bacteriuria- Patient has chronic suprapubic catheter. Recent UA remarkable for 2+ bacteria, greater than 100 WBC, 500 leukocyte, positive nitrite. Afebrile, no leukocytosis. Urine culture growing mixed gram-negative rebecca. 3. Acute metabolic encephalopathy-secondary to #1. Resolved. 4. Type 2 diabetes mellitus-Continue home insulin regimen. Accu-Cheks with sliding scale insulin. 5. CAD with history of stents/CABG-on aspirin, statin, Brilinta, beta-stepan, Entresto. 6. History of TBI/CVA with residual right-sided weakness, colostomy placement and suprapubic catheter- resides at SNF. On aspirin, statin. 7. Hypertension, intermittently uncontrolled-patient has had one blood pressure reading 194/134, otherwise blood pressure stable. Increase carvedilol, continue Entresto. 8. Hyperlipidemia-on statin. 9. Chronic COPD-no exacerbation. Continue home inhaler regimen. 10. Restless leg syndrome-on Mirapex. 11. GERD-continue PPI. 12. Anxiety/Depression- on prozac. 13. JIM-continue BiPAP. 14. Morbid obesity-encouraged diet and lifestyle modifications. DVT prophylaxis- Lovenox sc This patient was seen by SB Penny under the supervision of Dr. Felix. Documented by User: Dr. Darnell Felix, DO 02/19/21 17:05 Subjective Subjective Breathing well. Took off his BiPAP so he could drink. Tolerated NC Objective Data Lab / Micro Data Result Diagrams: 02/19/21 05:26 02/19/21 05:26 Physical Exam Const alert Constitutional Narrative: no respiratory distress nor conversational dyspnea on 6l NC. Resp normal respiratory effort and no retractions Resp Narrative: coarse breath sounds bilaterally. Cardio regular rate, regular rhythm, S1 normal heart sound and S2 normal heart sound GI normal to inspection, nondistended, normoactive bowel sounds, soft to palpation, non-tender and non-distended Assessment & Plan Assessment/Plan (1) Acute and chronic respiratory failure with hypoxia: (2) Acute exacerbation of CHF (congestive heart failure): (3) Hypertensive emergency: PLAN: Patient seen and examined independently. Data and vitals reviewed. I agree with the above note by the nurse practitioner. 1. Acute hypoxic respiratory failure no down on room air continue to monitor 2. Acute HFpEF EF 55% from 01/21/21 ?if from flash pulmonary edema from HTN urgency continue IV furosemide, carvedilol, sacubitril/valsartan 3. HTN urgerncy improved 4. Chronic bacteruria chronic SPC. no additional work up unless condition warrants it. DC planning Charges/Coding Visit Charges Inpatient E&M: 77043 Subs Hosp L2
--- NOTE | 2021-02-19 13:07 | CASEMGMT ---
Readmission chart review: 02/17-02/18/21 Hypoxic resp failure-pt was PCU ED admission(d/t full hospital) and d/c'd from ED back to [facility] 02/18-02/19/21 Hypertensive emergency/CHF exac Pt presented to [facility] ED on 02/17/21 for SOB w/ a hx of COPD, CHF from [facility], where he is a long-term resident. Pt was stable for discharge back to [facility] on 02/18/21. Pt returned to [facility] ED 7hours later for SOB again and per pt, his own bipap that he uses at [facility] is 10 years old and he is not sure it's working properly. [facility] aware to try and get a new bipap for pt at discharge. Pt is on room air and in no distress at this time. Plan is for discharge tomorrow. CM to follow for any further discharge planning/needs. Daryl JENSEN CM
--- NOTE | 2021-02-19 13:19 | CASEMGMT ---
CONTRERAS talked with Sherri about ordering a bipap. She said she just does admissions so she sent SW to the nurses station. CONTRERAS spoke with Bia and she said they would be able to get him a bipap. CONTRERAS faxed bipap settings to [facility]. CONTRERAS also called Marie who is a corporate briefcase sewer with [employer]. CONTRERAS explained the situation and she will make sure the appropriate people get the information and they will order a bipap. Nydia Paniagua RETAIL OFFICE ASSOCIATE [facility]
[2021-02-19] MEDS: Furosemide 40 MG/4 ML Vial IV (17:31)
[2021-02-19 17:41] LABS: Bedside Glucose 142 mg/dL (70-110)
[2021-02-19] MEDS: Pravastatin 80 MG Tablet PO (21:47)
[2021-02-19] MEDS: Tamsulosin HCl 0.4 MG Capsule PO (21:47)
[2021-02-19] MEDS: Carvedilol 25 MG Tablet PO (21:48)
[2021-02-19] MEDS: MELATONIN 3 MG TABLET PO (21:48)
[2021-02-19] MEDS: Pramipexole Di-HCl 0.25 MG Tablet PO (21:48)
[2021-02-19 22:51] LABS: Bedside Glucose 214 mg/dL (70-110)
[2021-02-20] VITALS (10 sets, daily range): BP systolic 114–129; BP diastolic 47–65; PULSE 70–82; RESP 14–20; TEMP 36.2–36.9; O2SAT 98–100
[2021-02-20] MEDS: Menthol/Lanolin/Calamine/Znox 113 GM Tube 1 APPLIC TOPICAL (05:24)
[2021-02-20] MEDS: Budesonide Respules 0.5 MG/2 ML AMPUL.NEB. INHALATION (07:00)
[2021-02-20 07:04] LABS: Anion Gap 4 (5-15); BUN 20 mg/dL (7-18); BUN/Creat Ratio 22.4 RATIO (10-20); Calcium,Total 8.9 mg/dL (8.5-10.1); Chloride 105 mmol/L (98-107); Creatinine, Serum 0.89 mg/dL (0.70-1.30); EST Glomerular Filtration Rate 89 mL/min (>60); Est Glom Filt Rate - Afr Amer 108 mL/min (>60); Estimated Creatinine Clearance 92.31 ml/min; Glucose 167 mg/dL (74-106); Potassium 3.7 mmol/L (3.5-5.1); Sodium Level 139 mmol/L (136-145)
[2021-02-20 08:35] LABS: Bedside Glucose 172 mg/dL (70-110)
[2021-02-20] MEDS: Insulin Lispro 100 UNIT/ML INSULN.PEN 12 UNIT SC ×2 (08:40→12:29)
[2021-02-20] MEDS: Aspirin 81 MG TAB.CHEW PO (08:40)
[2021-02-20] MEDS: Potassium Chloride Oral Tablet 20 MEQ PO (10:33)
[2021-02-20] MEDS: Carvedilol 25 MG Tablet PO (10:34)
[2021-02-20] MEDS: Senna/Docusate Sodium 1 Tablet 2 TABLET PO (10:34)
[2021-02-20] MEDS: Pantoprazole Sodium 40 MG Tablet PO (10:34)
[2021-02-20] MEDS: FLUoxetine 20 MG Capsule 60 MG PO (10:34)
[2021-02-20] MEDS: TICAGRELOR 90 MG TABLET PO (10:35)
[2021-02-20] MEDS: Amantadine 100 MG Capsule PO (10:35)
[2021-02-20] MEDS: SACUBITRIL/VALSARTAN 24/26 MG TABLET 1 EACH PO (10:35)
[2021-02-20] MEDS: Enoxaparin 40 MG/0.4 ML Syringe SC (10:39)
[2021-02-20] MEDS: Furosemide 40 MG/4 ML Vial IV (10:40)
--- NOTE | 2021-02-20 11:24 | PCM.TXEXTCAR ---
Diet 02/19/21 01:29 Diet: Cardiac: Calorie-Controlled Food consistency:: Regular Liquid Consistency:: Regular/Thin Dietary Modifications:: Sodium Restricted Consistent Carbohydrate Fluid restriction:: 1500 mL How many daily calories?: 2000 calorie Routine Orders/Code Status Enema Type: Fleetz Enema Frequency: Daily PRN Suppository Type: Dulcolax 10mg Suppository Frequency: Daily PRN O2 Liters per Minute: 2 O2 Frequency: PRN Keep PO Greater than or Equal to (%): 90 Routine Lab Work: - (weekly CBC, BMP) Code Status: DNRCC-A (no intubation) Wound(s) coccyx: Wound Type: Pressure Injury cleft: Wound Type: moist/red Suggestions for Active Care Change Position every (hours): 2 Times a day to sit in chair: 3 Therapies Physical Therapy: Eval and Treat Occupational Therapy: Eval and Treat Problem/Diagnosis (1) Acute and chronic respiratory failure with hypoxia: Status: Chronic (2) Acute exacerbation of CHF (congestive heart failure): Status: Chronic (3) Hypertensive emergency: Status: Acute Allergies/Procedures Done in Hospital Allergies atorvastatin Allergy (Verified 02/18/21 21:16) PT UNSURE OF REACTION cilostazol Allergy (Verified 02/18/21 21:16) Hives colestipol Allergy (Verified 02/18/21 21:16) Hives diltiazem Allergy (Verified 02/18/21 21:16) Hives gemfibrozil Allergy (Verified 02/18/21 21:16) Hives naproxen [From Naprosyn] Allergy (Verified 02/18/21 21:16) Hives niacin Allergy (Verified 02/18/21 21:16) PT UNSURE OF REACTION Nitrate Analogues Allergy (Verified 02/18/21 21:16) Hives Penicillins Allergy (Verified 02/18/21 21:16) Hives pravastatin Allergy (Verified 02/18/21 21:16) NEEDS FOLLOW-UP procainamide Allergy (Verified 02/18/21 21:16) Hives procaine Allergy (Verified 02/18/21 21:16) NEEDS FOLLOW-UP rosuvastatin Allergy (Verified 02/18/21 21:16) Hives simvastatin Allergy (Verified 02/18/21 21:16) Hives isosorbide Adverse Reaction (Severe, Verified 02/18/21 21:16) Unknown Procedures: None Type of Care/Length of Stay Estimated LOS: More Than 30 Days Type of Care Needed: Intermediate Rehab Potential: Fair Prognosis: Fair Additional Orders/Day of Discharge H&P will serve as current which was dated: 02/19/21 Day of Discharge: 02/20/21 Dietary and Speech Recommendations Dietitian Recommendations/Changes: Will change diet to 2000 calorie/consistent carbohydrate; cardiac; sodium-restricted w/ 1500ml FR. ONS as needed if PO/appetite do not rebound as pt feels better; pt denies need at this time. Diet education as needed prior to d/c. Discharge Plan Admission Admit Date/Time: 02/19/21 00:29 Primary Reason for Your Visit: CHF Attending Provider: Darnell Felix Primary Care Provider: Phillip Lindo Instructions Additional Instructions / Restrictions: Use facility BIPAP until patient is able to obtain new BiPAP through pulmonary medicine. Needs BiPAP placed nightly and with naps. Discharge Orders/Prescriptions Prescriptions: New carvedilol 25 mg Tablet 25 mg PO BID Qty: 0 RF: 0 Continued Entresto 24-26 mg tablet 1 tab PO BID RF: 0 amantadine HCl 100 MG capsule 100 mg PO DAILY RF: 0 pravastatin 80 MG tablet 80 mg PO QHS RF: 0 pantoprazole 40 MG tablet 40 mg PO DAILY RF: 0 pramipexole 0.25 MG tablet 0.25 mg PO QHS RF: 0 nitroglycerin 0.4 MG tablet, sublingual 0.4 mg sublingual PRN PRN (Reason: CHEST PAIN) RF: 0 fluoxetine 20 MG capsule 60 mg PO DAILY RF: 0 aspirin 81 MG tablet,chewable 81 mg PO DAILY@0800 RF: 0 acetaminophen 500 MG tablet 1,000 mg PO Q6H PRN PRN (Reason: Mild Pain (1-310)) RF: 0 bisacodyl 10 MG suppository 10 mg RC DAILY PRN PRN (Reason: Constipation) RF: 0 oxycodone 5 MG tablet 5 mg PO Q6H PRN PRN (Reason: Pain Or Fever) RF: 0 insulin aspart U-100 [Novolog Flexpen U-100 Insulin] 100 UNITS/ML insulin pen See Protocol units SC TIDCM RF: 0 sennosides-docusate sodium 1 EACH tablet 2 ea PO BID RF: 0 melatonin 3 MG tablet,disintegrating 3 mg PO QHS RF: 0 tamsulosin 0.4 mg Capsule 0.4 mg PO QHS RF: 0 fluticasone propionate 110 mcg/actuation Hfa Aerosol Inhaler 1 puff INHALATION BID RF: 0 insulin aspart U-100 [Novolog Flexpen U-100 Insulin] 100 unit/mL (3 mL) Insulin Pen 12 unit SUBCUT TID RF: 0 Basaglar KwikPen U-100 Insulin 100 unit/mL (3 mL) Insulin Pen 18 unit SUBCUT QPM RF: 0 Brilinta 90 mg Tablet 90 mg PO BID RF: 0 menthol-zinc oxide 1 APPLIC ointment 1 applic TOPICAL 0600,2200 RF: 0 furosemide 40 mg tablet 40 mg PO BID Qty: 0 RF: 0 Changed potassium chloride 20 mEq tablet,ER particles/crystals 40 meq PO DAILY 90 Days Qty: 90 RF: 0 Discontinued carvedilol [Coreg] 12.5 mg tablet 12.5 mg PO BID RF: 0 Referrals / Follow Up: Griffin Swain MD [STAFF PHYSICIAN] - Within 1 Month (JIM, needs new bipap) Phillip Lindo MD [Primary Care Provider] - In 1 Week Ramesh Siddiqi NP, THORACIC MEDICINE SPECIALIST-C [Nurse Practitioner] - Within 2 Weeks Disposition Disposition (needs filled in before D/C Order can be placed): Half-Way Facility
--- NOTE | 2021-02-20 11:41 | PCM.DC.SUM ---
Documented by User: Lula Ledesma NP, SWITCHBOARD RECEPTIONIST-C 02/20/21 11:49 Providers Date of Admission: 02/19/21 Date of Discharge: 02/20/21 Primary Care Physician: Dr. Phillip Lindo MD Reason For Visit: HYPERTENSIVE EMERGENCY Diagnosis Discharge Diagnosis (1) Acute and chronic respiratory failure with hypoxia: Status: Chronic Code(s): J96.21 - Acute and chronic respiratory failure with hypoxia (2) Acute exacerbation of CHF (congestive heart failure): Status: Chronic Code(s): I50.9 - Heart failure, unspecified (3) Hypertensive emergency: Status: Acute Code(s): I16.1 - Hypertensive emergency Medications at Discharge Home Medications amantadine HCl 100 mg PO DAILY 04/17/18 pantoprazole 40 mg PO DAILY 04/17/18 pramipexole 0.25 mg PO QHS 04/17/18 pravastatin 80 mg PO QHS 04/17/18 fluoxetine 60 mg PO DAILY 02/20/19 nitroglycerin 0.4 mg SUBLINGUAL PRN PRN 02/20/19 aspirin 81 mg PO DAILY@0800 02/24/19 acetaminophen 1,000 mg PO Q6H PRN PRN tab 03/03/19 bisacodyl 10 mg RC DAILY PRN PRN 09/14/19 insulin aspart U-100 [Novolog Flexpen U-100 Insulin] See Protocol SC TIDCM 09/14/19 oxycodone 5 mg PO Q6H PRN PRN 09/14/19 sennosides-docusate sodium 2 ea PO BID 01/02/20 melatonin 3 mg PO QHS 09/14/20 sacubitril 24 mg-valsartan 26 mg tablet 1 tab PO BID 10/10/20 Basaglar KwikPen U-100 Insulin 18 unit SUBCUT QPM 02/17/21 Brilinta 90 mg PO BID 02/17/21 fluticasone propionate 1 puff INHALATION BID 02/17/21 insulin aspart U-100 [Novolog Flexpen U-100 Insulin] 12 unit SUBCUT TID 02/17/21 menthol-zinc oxide 1 applic TOPICAL 0600,2200 02/17/21 tamsulosin 0.4 mg PO QHS 02/17/21 furosemide 40 mg PO BID #0 tab 02/18/21 carvedilol 25 mg PO BID #0 tab 02/20/21 potassium chloride 40 meq PO DAILY 90 Days #90 tab 02/20/21 Hospital Course Operations None Procedures None Summary of Care Provided Minutes Spent on Discharge: 35 Hospital Course: Patient is a 70-year-old male admitted 02/19/2021 due to shortness of breath. 1. Acute hypoxic respiratory failure secondary to acute on chronic heart failure with preserved ejection fraction-history of ischemic cardiomyopathy with reduced EF- most recent echocardiogram 01/21/2021 with EF 55%, stage I diastolic dysfunction. Chest x-ray unremarkable. CTA 02/17/21 without PE, small bilateral pleural effusions. Placed on BiPAP on admission. BNP 321. IV Lasix during admission. Patient counseled on fluid restrictions as he states he drinks a significant amount of diet Pepsi throughout the day. Continue Lasix 40 mg twice daily at discharge. Follow-up with cardiology in 2 weeks. Oxygen now stable on room air. Continue home BiPAP nightly. 2. Chronic bacteriuria- Patient has chronic suprapubic catheter. Recent UA remarkable for 2+ bacteria, greater than 100 WBC, 500 leukocyte, positive nitrite. Afebrile, no leukocytosis. Urine culture Grew mixed gram-negative rebecca. No indication for antibiotic treatment. Discussed with , initially concerned due to reported dark urine at SNF. 3. Hypertensive urgency-patient has had one blood pressure reading 194/134, otherwise blood pressure stable. Increase carvedilol, continue Entresto. Blood pressure significantly proved on increased carvedilol. Continue blood pressure monitoring at SNF. 4. Acute metabolic encephalopathy-secondary to #1. Resolved. 5. Type 2 diabetes mellitus-Continue home insulin regimen. 6. CAD with history of stents/CABG-on aspirin, statin, Brilinta, beta-stepan, Entresto. 7. History of TBI/CVA with residual right-sided weakness, colostomy placement and suprapubic catheter- resides at SNF. On aspirin, statin. 8. Hyperlipidemia-on statin. 9. Chronic COPD-no exacerbation. Continue home inhaler regimen. 10. Restless leg syndrome-on Mirapex. 11. GERD-continue PPI. 12. Anxiety/Depression- on prozac. 13. JIM-continue BiPAP. Patient states his BiPAP is at least 10 years old and does not feel it works properly. Patient will use SNF BiPAP until he is able to follow-up and obtain new personal BiPAP. Referred to Dr. Swain for further evaluation who patient has seen in the past. 14. Morbid obesity-encouraged diet and lifestyle modifications. Physical Exam Const alert, oriented x3 and no apparent distress Orientation / Consciousness: awake, oriented to person, oriented to place and oriented to time Nutritional Appearance: obese HEENT normocephalic and moist oral mucous membranes Eyes PERRL, EOMs intact bilaterally and conjunctivae normal Neck no lymphadenopathy Resp clear to auscultation bilaterally Auscultation: diminished lung sounds Cardio regular rate, regular rhythm and no murmurs Peripheral Pulses: pulses 2+ throughout GI normal to inspection, nondistended, normoactive bowel sounds, non-tender and non-distended Extremity normal to inspection General Extremity: edema bilateral lower extremity Details: mild Skin no rashes or lesions noted Lesions: no lesions Rashes: no rashes Trauma: no lacerations or abrasions Neuro CN's II-XII intact bilaterally, no focal motor deficits, no sensory deficits noted and deep tendon reflexes 2+ bilaterally Psych mental status grossly normal and affect normal Patient seen and examined prior to discharge. Physical assessment as noted above. Patient is stable for discharge with follow up recommendations as noted above. This patient was seen by SB Penny under the supervision of Dr. Felix. Weight / BMI Weight Weight: 297 lb 13.512 oz Body Mass Index (BMI) 37.9 ABG / Lab / Microbiology Data Result Diagrams: 02/19/21 05:26 02/20/21 05:55 Laboratory: Laboratory Results - last 24 hr 02/19/21 12:39: POC Glucose 155 H 02/19/21 17:30: POC Glucose 142 H 02/19/21 21:44: POC Glucose 214 H 02/20/21 05:55: Sodium 139, Potassium 3.7, Chloride 105, Carbon Dioxide 30.0, Anion Gap 4 L, BUN 20 H, Creatinine 0.89, Estim Creat Clear Calc 92.31, Est GFR (MDRD) Af Amer 108, Est GFR (MDRD) Non-Af 89, BUN/Creatinine Ratio 22.4 H, Glucose 167 H, Calcium 8.9 02/20/21 08:28: POC Glucose 172 H Meaningful Use Info Meaningful Use Diagnoses (Choose all that apply): CHF CHF DANII/ARB ordered at discharge?: No Reason DANII/ARB not ordered?: Not indicated Documented LVEF (%): 55 Discharge Plan Admission Admit Date/Time: 02/19/21 00:29 Primary Reason for Your Visit: CHF Attending Provider: Darnell Felix Primary Care Provider: Phillip Lindo Instructions Additional Instructions / Restrictions: Use facility BIPAP until patient is able to obtain new BiPAP through pulmonary medicine. Needs BiPAP placed nightly and with naps. Discharge Orders/Prescriptions Prescriptions: New carvedilol 25 mg Tablet 25 mg PO BID Qty: 0 RF: 0 Continued Entresto 24-26 mg tablet 1 tab PO BID RF: 0 amantadine HCl 100 MG capsule 100 mg PO DAILY RF: 0 pravastatin 80 MG tablet 80 mg PO QHS RF: 0 pantoprazole 40 MG tablet 40 mg PO DAILY RF: 0 pramipexole 0.25 MG tablet 0.25 mg PO QHS RF: 0 nitroglycerin 0.4 MG tablet, sublingual 0.4 mg sublingual PRN PRN (Reason: CHEST PAIN) RF: 0 fluoxetine 20 MG capsule 60 mg PO DAILY RF: 0 aspirin 81 MG tablet,chewable 81 mg PO DAILY@0800 RF: 0 acetaminophen 500 MG tablet 1,000 mg PO Q6H PRN PRN (Reason: Mild Pain (1-08/15)) RF: 0 bisacodyl 10 MG suppository 10 mg RC DAILY PRN PRN (Reason: Constipation) RF: 0 oxycodone 5 MG tablet 5 mg PO Q6H PRN PRN (Reason: Pain Or Fever) RF: 0 insulin aspart U-100 [Novolog Flexpen U-100 Insulin] 100 UNITS/ML insulin pen See Protocol units SC TIDCM RF: 0 sennosides-docusate sodium 1 EACH tablet 2 ea PO BID RF: 0 melatonin 3 MG tablet,disintegrating 3 mg PO QHS RF: 0 tamsulosin 0.4 mg Capsule 0.4 mg PO QHS RF: 0 fluticasone propionate 110 mcg/actuation Hfa Aerosol Inhaler 1 puff INHALATION BID RF: 0 insulin aspart U-100 [Novolog Flexpen U-100 Insulin] 100 unit/mL (3 mL) Insulin Pen 12 unit SUBCUT TID RF: 0 Basaglar KwikPen U-100 Insulin 100 unit/mL (3 mL) Insulin Pen 18 unit SUBCUT QPM RF: 0 Brilinta 90 mg Tablet 90 mg PO BID RF: 0 menthol-zinc oxide 1 APPLIC ointment 1 applic TOPICAL 0600,2200 RF: 0 furosemide 40 mg tablet 40 mg PO BID Qty: 0 RF: 0 Changed potassium chloride 20 mEq tablet,ER particles/crystals 40 meq PO DAILY 90 Days Qty: 90 RF: 0 Discontinued carvedilol [Coreg] 12.5 mg tablet 12.5 mg PO BID RF: 0 Referrals / Follow Up: Griffin Swain MD [STAFF PHYSICIAN] - Within 1 Month (JIM, needs new bipap) Phillip Lindo MD [Primary Care Provider] - In 1 Week Ramesh Siddiqi NP, SWITCHBOARD RECEPTIONIST-C [Nurse Practitioner] - Within 2 Weeks Disposition Disposition (needs filled in before D/C Order can be placed): Shelter Facility Documented by User: Dr. Darnell Felix DO 02/20/21 15:36 Providers Date of Admission: 02/19/21 Reason For Visit: HYPERTENSIVE EMERGENCY Medications at Discharge Home Medications amantadine HCl 100 mg PO DAILY 04/17/18 pantoprazole 40 mg PO DAILY 04/17/18 pramipexole 0.25 mg PO QHS 04/17/18 pravastatin 80 mg PO QHS 04/17/18 fluoxetine 60 mg PO DAILY 02/20/19 nitroglycerin 0.4 mg SUBLINGUAL PRN PRN 02/20/19 aspirin 81 mg PO DAILY@0800 02/24/19 acetaminophen 1,000 mg PO Q6H PRN PRN tab 03/03/19 bisacodyl 10 mg RC DAILY PRN PRN 09/14/19 insulin aspart U-100 [Novolog Flexpen U-100 Insulin] See Protocol SC TIDCM 09/14/19 oxycodone 5 mg PO Q6H PRN PRN 09/14/19 sennosides-docusate sodium 2 ea PO BID 01/02/20 melatonin 3 mg PO QHS 09/14/20 sacubitril 24 mg-valsartan 26 mg tablet 1 tab PO BID 10/10/20 Basaglar KwikPen U-100 Insulin 18 unit SUBCUT QPM 02/17/21 Brilinta 90 mg PO BID 02/17/21 fluticasone propionate 1 puff INHALATION BID 02/17/21 insulin aspart U-100 [Novolog Flexpen U-100 Insulin] 12 unit SUBCUT TID 02/17/21 menthol-zinc oxide 1 applic TOPICAL 0600,2200 02/17/21 tamsulosin 0.4 mg PO QHS 02/17/21 furosemide 40 mg PO BID #0 tab 02/18/21 carvedilol 25 mg PO BID #0 tab 02/20/21 potassium chloride 40 meq PO DAILY 90 Days #90 tab 02/20/21 Hospital Course Operations None Procedures None Summary of Care Provided Minutes Spent on Discharge: 32 Hospital Course: Patient seen and examined independently. Data and vitals reviewed. I agree with the above note by the nurse practitioner. 10-year-old male presents with acute shortness of breath after just being discharged. Patient was profoundly hypertensive and was hypoxic. Patient received Lasix and improved. Oxygen was able to be weaned down easily. Patient has some issues. At night. Patient has had no sleep apnea but he is the same CPAP for the past 10 to 15 years. Patient will continue with furosemide. Patient advised to follow-up with pulmonology for further CPAP assessment. He had previously seen Dr. Donohue but that was quite some time ago and he expressed a desire to follow-up with someone else. Patient advised follow-up the pulmonary group here Physical Exam Resp normal respiratory effort and no retractions Cardio regular rate, regular rhythm, S1 normal heart sound and S2 normal heart sound GI normal to inspection, nondistended, normoactive bowel sounds and soft to palpation Extremity normal to inspection ABG / Lab / Microbiology Data Result Diagrams: 02/19/21 05:26 02/20/21 05:55 Discharge Plan Admission Admit Date/Time: 02/19/21 00:29 Primary Reason for Your Visit: CHF Attending Provider: Darnell Felix Primary Care Provider: Phillip Lindo Instructions Additional Instructions / Restrictions: Use facility BIPAP until patient is able to obtain new BiPAP through pulmonary medicine. Needs BiPAP placed nightly and with naps. Discharge Orders/Prescriptions Prescriptions: New carvedilol 25 mg Tablet 25 mg PO BID Qty: 0 RF: 0 Continued Entresto 24-26 mg tablet 1 tab PO BID RF: 0 amantadine HCl 100 MG capsule 100 mg PO DAILY RF: 0 pravastatin 80 MG tablet 80 mg PO QHS RF: 0 pantoprazole 40 MG tablet 40 mg PO DAILY RF: 0 pramipexole 0.25 MG tablet 0.25 mg PO QHS RF: 0 nitroglycerin 0.4 MG tablet, sublingual 0.4 mg sublingual PRN PRN (Reason: CHEST PAIN) RF: 0 fluoxetine 20 MG capsule 60 mg PO DAILY RF: 0 aspirin 81 MG tablet,chewable 81 mg PO DAILY@0800 RF: 0 acetaminophen 500 MG tablet 1,000 mg PO Q6H PRN PRN (Reason: Mild Pain (-08/15)) RF: 0 bisacodyl 10 MG suppository 10 mg RC DAILY PRN PRN (Reason: Constipation) RF: 0 oxycodone 5 MG tablet 5 mg PO Q6H PRN PRN (Reason: Pain Or Fever) RF: 0 insulin aspart U-100 [Novolog Flexpen U-100 Insulin] 100 UNITS/ML insulin pen See Protocol units SC TIDCM RF: 0 sennosides-docusate sodium 1 EACH tablet 2 ea PO BID RF: 0 melatonin 3 MG tablet,disintegrating 3 mg PO QHS RF: 0 tamsulosin 0.4 mg Capsule 0.4 mg PO QHS RF: 0 fluticasone propionate 110 mcg/actuation Hfa Aerosol Inhaler 1 puff INHALATION BID RF: 0 insulin aspart U-100 [Novolog Flexpen U-100 Insulin] 100 unit/mL (3 mL) Insulin Pen 12 unit SUBCUT TID RF: 0 Basaglar KwikPen U-100 Insulin 100 unit/mL (3 mL) Insulin Pen 18 unit SUBCUT QPM RF: 0 Brilinta 90 mg Tablet 90 mg PO BID RF: 0 menthol-zinc oxide 1 APPLIC ointment 1 applic TOPICAL 0600,2200 RF: 0 furosemide 40 mg tablet 40 mg PO BID Qty: 0 RF: 0 Changed potassium chloride 20 mEq tablet,ER particles/crystals 40 meq PO DAILY 90 Days Qty: 90 RF: 0 Discontinued carvedilol [Coreg] 12.5 mg tablet 12.5 mg PO BID RF: 0 Referrals / Follow Up: Griffin Swain MD [STAFF PHYSICIAN] - Within 1 Month (JIM, needs new bipap) Phillip Lindo MD [Primary Care Provider] - In 1 Week Ramesh Siddiqi NP, SWITCHBOARD RECEPTIONIST-C [Nurse Practitioner] - Within 2 Weeks Disposition Disposition (needs filled in before D/C Order can be placed): Shelter Facility Charges/Coding Visit Charges Inpatient E&M: 73899 Disch Hosp
--- NOTE | 2021-02-20 11:43 | PHA.DC.MR ---
Pharmacy Service has performed discharge medication reconciliation for this patient. The patient's discharge medication list was reviewed for discrepancies and discrepancies were resolved. Home Medications amantadine HCl 100 mg PO DAILY 04/17/18 pantoprazole 40 mg PO DAILY 04/17/18 pramipexole 0.25 mg PO QHS 04/17/18 pravastatin 80 mg PO QHS 04/17/18 fluoxetine 60 mg PO DAILY 02/20/19 nitroglycerin 0.4 mg SUBLINGUAL PRN PRN 02/20/19 aspirin 81 mg PO DAILY@0800 02/24/19 acetaminophen 1,000 mg PO Q6H PRN PRN tab 03/03/19 bisacodyl 10 mg RC DAILY PRN PRN 09/14/19 insulin aspart U-100 [Novolog Flexpen U-100 Insulin] See Protocol SC TIDCM 09/14/19 oxycodone 5 mg PO Q6H PRN PRN 09/14/19 sennosides-docusate sodium 2 ea PO BID 01/02/20 melatonin 3 mg PO QHS 09/14/20 sacubitril 24 mg-valsartan 26 mg tablet 1 tab PO BID 10/10/20 Basaglar KwikPen U-100 Insulin 18 unit SUBCUT QPM 02/17/21 Brilinta 90 mg PO BID 02/17/21 fluticasone propionate 1 puff INHALATION BID 02/17/21 insulin aspart U-100 [Novolog Flexpen U-100 Insulin] 12 unit SUBCUT TID 02/17/21 menthol-zinc oxide 1 applic TOPICAL 0600,2200 02/17/21 tamsulosin 0.4 mg PO QHS 02/17/21 furosemide 40 mg PO BID #0 tab 02/18/21 carvedilol 25 mg PO BID #0 tab 02/20/21 potassium chloride 40 meq PO DAILY 90 Days #90 tab 02/20/21
[2021-02-20 11:56] LABS: Bedside Glucose 218 mg/dL (70-110)
--- NOTE | 2021-02-20 13:42 | CASEMGMT ---
Patient is ready for discharge. CONTRERAS notified [facility]. CONTRERAS faxed orders to [facility]. CONTRERAS called [facility] to set up transport due to patient's insurance. CONTRERAS spoke with Maribel. She told SW that patient's insurance does not pay for a wheelchair to be provided. CONTRERAS called [facility] and spoke with Malorie who manages [facility]'s transportation van. 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 CONTRERAS notified patient, his , and corporation secretary. CONTRERAS will notify RN. Plan: discharge back to [facility] under intermediate level of care. Patient is a nursing home resident of [facility]. [facility] transported patient back. Nydia Paniagua COMBINATION WELDER APPRENTICE CHANO
== END 2021-02-20 16:46 | disposition skilled nursing facility (03) | DRG 304 ==
LOC: ED 22:09 → PCU 02-19 03:03
PROVIDERS: Nurse Practitioner Family; Admitting Provider Hospitalist; Emergency Provider Emergency Medicine; PCP Family Medicine
DX: I16.1 Hypertensive emergency (principal); J96.21 Acute and chronic respiratory failure with hypoxia; G93.41 Metabolic encephalopathy; I50.33 Acute on chronic diastolic (congestive) heart failure; I25.810 Atherosclerosis of coronary artery bypass graft(s) without angina pectoris; I69.351 Hemiplegia and hemiparesis following cerebral infarction affecting right dominant side; I11.0 Hypertensive heart disease with heart failure; L89.152 Pressure ulcer of sacral region, stage 2; R82.71 Bacteriuria; I25.10 Atherosclerotic heart disease of native coronary artery without angina pectoris; I25.5 Ischemic cardiomyopathy; E11.9 Type 2 diabetes mellitus without complications; J44.9 Chronic obstructive pulmonary disease, unspecified; E78.5 Hyperlipidemia, unspecified; R13.10 Dysphagia, unspecified; G25.81 Restless legs syndrome; G47.33 Obstructive sleep apnea (adult) (pediatric); K21.9 Gastro-esophageal reflux disease without esophagitis; F32.9 Major depressive disorder, single episode, unspecified; F41.9 Anxiety disorder, unspecified; E66.01 Morbid (severe) obesity due to excess calories; Z68.37 Body mass index [BMI] 37.0-37.9, adult; Z79.82 Long term (current) use of aspirin; Z79.4 Long term (current) use of insulin; Z79.02 Long term (current) use of antithrombotics/antiplatelets; Z79.899 Other long term (current) drug therapy; Z93.59 Other cystostomy status; Z93.2 Ileostomy status; I25.2 Old myocardial infarction; Z87.891 Personal history of nicotine dependence; Z87.820 Personal history of traumatic brain injury; Z87.440 Personal history of urinary (tract) infections; Z95.5 Presence of coronary angioplasty implant and graft
CPT/HCPCS: 36415; 71045; 80048; 82962; 83880; 84484; 85025; 93005; 94002; 94003; 94640; 97802; 99285; J7030; J1940

== ENCOUNTER → 2021-02-21 05:00 | Outpatient (REF) | payer MEDICARE, OTHER, MEDICAID, SELFPAY ==
[2017-02-20 12:18] VITALS: BMI 46.4
[2021-02-21 09:25] LABS: Hematocrit 37.7 % (40-54); Mean Corp Hgb Conc 29.2 g/dL (32-36); Mean Corpuscular Hgb 26.6 pg (27.0-32.0); Mean Corpuscular Volume 91.1 fL (80-94); Mean Platelet Vol. 12.7 fl (6.2-12.0); Platelet Count 167 K/mm3 (150-450); RBC Distribution Width CV 15.2 % (11.6-14.6); RBC Distribution Width SD 50.4 fl (35.1-43.9); Red Blood Count 4.14 M/mm3 (4.6-6.2); White Blood Count 8.7 K/mm3 (4.4-11.0)
[2021-02-21 09:43] LABS: Anion Gap 5 (5-15); BUN 18 mg/dL (7-18); BUN/Creat Ratio 18.6 RATIO (10-20); Chloride 104 mmol/L (98-107); Creatinine, Serum 0.97 mg/dL (0.70-1.30); EST Glomerular Filtration Rate 81 mL/min (>60); Est Glom Filt Rate - Afr Amer 98 mL/min (>60); Glucose 211 mg/dL (74-106); Potassium 3.8 mmol/L (3.5-5.1); Sodium Level 138 mmol/L (136-145)
== END ==
LOC: OLS.SW500 05:00
PROVIDERS: PCP Family Medicine; Visit Provider Family Medicine
DX: J96.90 Respiratory failure, unspecified, unspecified whether with hypoxia or hypercapnia (principal)
CPT/HCPCS: 36415; 80048; 85027

== ENCOUNTER → 2021-02-28 05:00 | Outpatient (REF) | payer MEDICARE, MEDICAID, SELFPAY ==
[2017-02-20 12:18] VITALS: BMI 46.4
[2021-02-28 09:51] LABS: Hematocrit 36.5 % (40-54); Hemoglobin 10.9 g/dL (13.0-16.5); Mean Corp Hgb Conc 29.9 g/dL (32-36); Mean Corpuscular Hgb 27.3 pg (27.0-32.0); Mean Corpuscular Volume 91.3 fL (80-94); POSITIVE COUNT YES; RBC Distribution Width CV 15.3 % (11.6-14.6)
[2021-02-28 10:05] LABS: Anion Gap 3 (5-15); BUN 15 mg/dL (7-18); BUN/Creat Ratio 19.4 RATIO (10-20); Calcium,Total 8.7 mg/dL (8.5-10.1); Chloride 103 mmol/L (98-107); Creatinine, Serum 0.77 mg/dL (0.70-1.30); EST Glomerular Filtration Rate 105 mL/min (>60); Est Glom Filt Rate - Afr Amer 128 mL/min (>60); Glucose 204 mg/dL (74-106); Potassium 3.7 mmol/L (3.5-5.1); Sodium Level 137 mmol/L (136-145)
[2021-02-28 10:21] LABS: Scan Indicated on CBC? Y/N YES- FLAGS NOTED
== END ==
LOC: OLS.SW500 05:00
PROVIDERS: PCP Family Medicine; Visit Provider Family Medicine
DX: J44.9 Chronic obstructive pulmonary disease, unspecified (principal); I10 Essential (primary) hypertension; J96.90 Respiratory failure, unspecified, unspecified whether with hypoxia or hypercapnia
CPT/HCPCS: 36415; 80048; 85027

== ENCOUNTER → 2021-03-07 05:00 | Outpatient (REF) | payer MEDICARE, MEDICAID, SELFPAY ==
[2017-02-20 12:18] VITALS: BMI 46.4
[2021-03-07 09:10] LABS: Hematocrit 36.8 % (40-54); Hemoglobin 11.2 g/dL (13.0-16.5); Mean Corp Hgb Conc 30.4 g/dL (32-36); Mean Corpuscular Hgb 27.1 pg (27.0-32.0); Mean Corpuscular Volume 89.1 fL (80-94); Mean Platelet Vol. 12.1 fl (6.2-12.0); Platelet Count 199 K/mm3 (150-450); RBC Distribution Width CV 15.3 % (11.6-14.6); RBC Distribution Width SD 50.3 fl (35.1-43.9); Red Blood Count 4.13 M/mm3 (4.6-6.2); White Blood Count 8.6 K/mm3 (4.4-11.0)
[2021-03-07 09:22] LABS: Anion Gap 8 (5-15); BUN 15 mg/dL (7-18); BUN/Creat Ratio 17.9 RATIO (10-20); Chloride 103 mmol/L (98-107); Creatinine, Serum 0.84 mg/dL (0.70-1.30); EST Glomerular Filtration Rate 96 mL/min (>60); Est Glom Filt Rate - Afr Amer 117 mL/min (>60); Glucose 158 mg/dL (74-106); Potassium 3.9 mmol/L (3.5-5.1); Sodium Level 138 mmol/L (136-145)
== END ==
LOC: OLS.SW500 05:00
PROVIDERS: PCP Family Medicine; Visit Provider Family Medicine
DX: J96.90 Respiratory failure, unspecified, unspecified whether with hypoxia or hypercapnia (principal)
CPT/HCPCS: 36415; 80048; 85027

== ENCOUNTER → 2021-03-14 05:00 | Outpatient (REF) | payer MEDICARE, OTHER, MEDICAID, SELFPAY ==
[2017-02-20 12:18] VITALS: BMI 46.4
[2021-03-14 09:40] LABS: Hematocrit 33.4 % (40-54); Hemoglobin 10.3 g/dL (13.0-16.5); Mean Corp Hgb Conc 30.8 g/dL (32-36); Mean Corpuscular Hgb 27.1 pg (27.0-32.0); Mean Corpuscular Volume 87.9 fL (80-94); Mean Platelet Vol. 12.3 fl (6.2-12.0); Platelet Count 183 K/mm3 (150-450); RBC Distribution Width CV 15.2 % (11.6-14.6); RBC Distribution Width SD 48.9 fl (35.1-43.9); White Blood Count 7.2 K/mm3 (4.4-11.0)
[2021-03-14 10:18] LABS: Anion Gap 9 (5-15); BUN 15 mg/dL (7-18); BUN/Creat Ratio 15.8 RATIO (10-20); Calcium,Total 8.9 mg/dL (8.5-10.1); Chloride 103 mmol/L (98-107); Creatinine, Serum 0.95 mg/dL (0.70-1.30); EST Glomerular Filtration Rate 83 mL/min (>60); Est Glom Filt Rate - Afr Amer 101 mL/min (>60); Glucose 206 mg/dL (74-106); Potassium 4.2 mmol/L (3.5-5.1); Sodium Level 136 mmol/L (136-145)
== END ==
LOC: OLS.SW500 05:00
PROVIDERS: PCP Family Medicine; Visit Provider Family Medicine
DX: J96.90 Respiratory failure, unspecified, unspecified whether with hypoxia or hypercapnia (principal)
CPT/HCPCS: 36415; 80048; 85027

== ENCOUNTER 2021-03-15 07:57 | Inpatient (IN) | payer MEDICARE, MEDICAID, OTHER, SELFPAY ==
[2017-02-20 12:18] VITALS: BMI 46.4
[2021-03-15] VITALS (17 sets, daily range): BP systolic 118–181; BP diastolic 43–100; PULSE 71–120; RESP 12–37; TEMP 36.1–37.2; O2SAT 91–99; BMI 44.6; BMI 44.8
--- NOTE | 2021-03-15 08:00 | RAD_ITS ---
STUDY: X-RAY CHEST REASON FOR EXAM: Male, 70 years old. SOB since yesterday TECHNIQUE: AP COMPARISON: 02/18/2021 FINDINGS: EKG leads project over the chest. Sternal wires and mediastinal surgical clips compatible with prior CABG. Chronic reticular changes of the bilateral lung bases with bronchovascular attenuation, stable. No airspace consolidation. There is no demonstrated pleural abnormality. There is mild cardiac enlargement. Normal mediastinum and ita. There is prominence of the pulmonary hilar arteries and peripheral pulmonary arteries, consistent with congestive heart failure (CHF). Normal visualized aortic arch and descending thoracic aorta. No acute bony process. There is no demonstrated abnormality of the visualized soft tissue structures of the upper abdomen. RAD/Chest 1 View (Portable) IMPRESSION: 1. No interval change. 2. Chronic CHF. Electronically Signed: Kyaw Esparza MD ([place]) at 8:46 EDT , Service support ,
--- NOTE | 2021-03-15 08:01 | EKG12_ITS ---
Test Reason : SOB Blood Pressure : / mmHG Vent. Rate : 098 BPM Atrial Rate : 098 BPM P-R Int : 176 ms QRS Dur : 106 ms QT Int : 392 ms P-R-T Axes : 062 060 054 degrees QTc Int : 500 ms Normal sinus rhythm Nonspecific ST and T wave abnormality Prolonged QT Abnormal ECG Confirmed by TYLOR MATTA, JESÚS ([id number]), scientific editor EMMANUEL CONTRERAS ([id number]) on 03/18/2021 12:40:20 PM Referred By: NIGEL Confirmed By:MELCHOR SNIDER MD
--- NOTE | 2021-03-15 08:02 | EDS_ITS ---
HPI History of Present Illness Chief Complaint: Shortness of Breath Informant: patient, EMS and SNF ([facility]) Narrative Narrative: Patient is a 70-year-old male with history of systolic and diastolic congestive heart failure, chronic hypoxia on 2 L baseline, COPD, coronary artery disease and prior stroke residual right-sided right-sided weakness and subsequent colostomy and suprapubic catheter. He is presenting with acute onset of shortness of breath. Patient states he felt fine yesterday but today became acutely short of breath. On room air he was hypoxic to 65% for EMS. He was placed on CPAP for hypoxia and work of breathing for EMS and he got up to 82%. Patient did receive 40 mg oral Lasix this morning as well as regular scheduled Tylenol and oxycodone. Patient has had multiple recent missions for similar presentation, most recently discharged on 02/20/2021 for acute on chronic heart failure. Patient notes that his home BiPAP mask has not been working so he is unable to wear it at night. He denies any chest pain, fever or any other complaints. He has paperwork stating DNR CCA and confirmed that he would like to be intubated if medically indicated. [facility] Medical History Acute on chronic systolic (congestive) heart failure Acute pulmonary edema (09/14/20) Acute respiratory failure with hypoxia (09/14/20) Acute respiratory failure with hypoxia and hypercapnia Alcohol abuse Allergic rhinitis Anemia Anxiety Atherosclerosis Atherosclerosis of coronary artery bypass graft without angina pectoris Benign prostatic hyperplasia Chronic combined systolic and diastolic CHF (congestive heart failure) COPD (chronic obstructive pulmonary disease) COPD with acute exacerbation CVA (cerebral vascular accident) Depression Diabetes Dysphagia Essential (primary) hypertension GERD (gastroesophageal reflux disease) Heart failure History of non-ST elevation myocardial infarction (NSTEMI) (02/21/19) HTN (hypertension) Hyperlipidemia Intraparenchymal hemorrhage of brain Intraventricular hemorrhage Ischemic cardiomyopathy Morbid obesity Myocardial infarct Neuromuscular dysfunction of bladder Nicotine dependence Obesity Obstructive sleep apnea Osteomyelitis of sacrum Recurrent UTI (urinary tract infection) Reflux esophagitis Restless leg syndrome Right hemiplegia RLS (restless legs syndrome) Sleep apnea Subarachnoid hemorrhage Subdural hematoma Tobacco abuse Traumatic brain injury Type 2 diabetes mellitus Home Medications amantadine HCl 100 mg PO DAILY 04/17/18 [History Last Taken 02/17/21] pantoprazole 40 mg PO DAILY 04/17/18 [History Last Taken 02/17/21] pramipexole 0.25 mg PO QHS 04/17/18 [History Last Taken 02/16/21] pravastatin 80 mg PO QHS 04/17/18 [History Last Taken 02/16/21] fluoxetine 60 mg PO DAILY 02/20/19 [History Last Taken 02/17/21] nitroglycerin 0.4 mg SUBLINGUAL PRN PRN 02/20/19 [History Last Taken Unknown] aspirin 81 mg PO DAILY@0800 02/24/19 [History Last Taken 02/17/21] acetaminophen 1,000 mg PO Q6H PRN PRN tab 03/03/19 [Rx Last Taken Unknown] bisacodyl 10 mg RC DAILY PRN PRN 09/14/19 [History Last Taken Unknown] insulin aspart U-100 [Novolog Flexpen U-100 Insulin] See Protocol SC TIDCM 09/14/19 [History Last Taken Unknown] oxycodone 5 mg PO Q6H PRN PRN 09/14/19 [History Last Taken 02/17/21] sennosides-docusate sodium 2 ea PO BID 01/02/20 [History Last Taken 02/17/21] melatonin 3 mg PO QHS 09/14/20 [History Last Taken 02/16/21] sacubitril 24 mg-valsartan 26 mg tablet 1 tab PO BID 10/10/20 [History Last Taken 02/17/21] Basaglar KwikPen U-100 Insulin 18 unit SUBCUT QPM 02/17/21 [History Last Taken 02/17/21] Brilinta 90 mg PO BID 02/17/21 [History Last Taken 02/17/21] fluticasone propionate 1 puff INHALATION BID 02/17/21 [History Last Taken 02/17/21] insulin aspart U-100 [Novolog Flexpen U-100 Insulin] 12 unit SUBCUT TID 02/17/21 [History Last Taken 02/17/21] menthol-zinc oxide 1 applic TOPICAL 0600,2200 02/17/21 [History Last Taken Unknown] tamsulosin 0.4 mg PO QHS 02/17/21 [History Last Taken 02/16/21] furosemide 40 mg PO BID #0 tab 02/18/21 [Rx Last Taken Unknown] carvedilol 25 mg PO BID #0 tab 02/20/21 [Rx Last Taken Unknown] potassium chloride 40 meq PO DAILY 90 Days #90 tab 02/20/21 [Rx Last Taken 02/17/21] Allergy/AdvReac Type Severity Reaction Status Date / Time atorvastatin Allergy PT UNSURE Verified 03/15/21 08:16 OF REACTION cilostazol Allergy Hives Verified 03/15/21 08:16 colestipol Allergy Hives Verified 03/15/21 08:16 diltiazem Allergy Hives Verified 03/15/21 08:16 gemfibrozil Allergy Hives Verified 03/15/21 08:16 naproxen [From Naprosyn] Allergy Hives Verified 03/15/21 08:16 niacin Allergy PT UNSURE Verified 03/15/21 08:16 OF REACTION Nitrate Analogues Allergy Hives Verified 03/15/21 08:16 Penicillins Allergy Hives Verified 03/15/21 08:16 pravastatin Allergy NEEDS Verified 03/15/21 08:16 FOLLOW-UP procainamide Allergy Hives Verified 03/15/21 08:16 procaine Allergy NEEDS Verified 03/15/21 08:16 FOLLOW-UP rosuvastatin Allergy Hives Verified 03/15/21 08:16 simvastatin Allergy Hives Verified 03/15/21 08:16 isosorbide AdvReac Severe Unknown Verified 03/15/21 08:16 Family History Brother Heart disease Father Heart disease Mother No history of heart disease Surgical History Chronic suprapubic catheter H/O coronary angioplasty H/O coronary artery bypass surgery (2001) History of coronary artery stent placement (09/18/20) History of left heart catheterization (09/17/20) PEG (percutaneous endoscopic gastrostomy) adjustment/replacement/removal Status post ileostomy Status post osteotomy (01/2018) Social History Smoking Status: Light Smoker (<10/day) how long ago did patient quit smokin, 1ppd second hand exposure: Yes alcohol intake: never caffeine: Yes Type: coffee Number of servings: 3 what type of physical activity do you participate in: none ROS ROS ED Constitutional Constitutional ED: Reports sweats; Denies chills or fever(s) Eyes Eyes: Denies change in vision ENT ENT ED: Denies ear pain or rhinorrhea Cardiovascular Cardiovascular: Denies chest pain or palpitations Respiratory/Chest Respiratory/Chest: Reports dyspnea; Denies cough or dyspnea on exertion Gastrointestinal Gastrointestinal: Denies abdominal pain, nausea or vomiting Genitourinary Genitourinary ED: Reports other Details: Suprapubic Lane Musculoskeletal Musculoskeletal: Denies myalgias Integumentary Denies rash Neurologic Neurologic: Denies headache(s) or weakness Psychiatric Psychiatric: Denies depression EXAM Physical Exam Const Vital Signs: 03/15/21 07:58 03/15/21 08:03 03/15/21 08:14 Temperature 98.4 F 98.4 F Temperature Source Temporal Temporal Pulse Rate 120 H 116 H 109 H Respiratory Rate 34 H 30 H 37 H Respiratory Effort Short of Breath Labored Respiratory Depth Shallow Respiratory Pattern Tachypnea Blood Pressure 181/100 H 181/100 H Blood Pressure Mean 127 127 Pulse Ox 97 98 97 Oxygen Delivery Method Bi-pap Bi-pap Fraction of Inspired Oxygen (FIO2) 50 50 50 03/15/21 08:19 03/15/21 08:45 03/15/21 09:34 Temperature 98.9 F Temperature Source Temporal Pulse Rate 92 86 Respiratory Rate 24 H 16 Respiratory Effort Respiratory Depth Respiratory Pattern Blood Pressure 118/57 L 129/66 H Blood Pressure Mean 77 87 Pulse Ox 97 94 98 Oxygen Delivery Method Bi-pap Bi-pap Fraction of Inspired Oxygen (FIO2) 40 50 03/15/21 09:45 Temperature 98.6 F Temperature Source Temporal Pulse Rate 86 Respiratory Rate 18 Respiratory Effort Respiratory Depth Respiratory Pattern Blood Pressure 129/66 H Blood Pressure Mean 87 Pulse Ox 98 Oxygen Delivery Method Bi-pap Fraction of Inspired Oxygen (FIO2) 50 Positive well nourished, well developed and obese General Appearance ED: well developed and other Patient in acute respiratory distress Nutritional Appearance: obese HEENT Reports moist mucous membranes atraumatic Eyes PERRL and EOMs intact bilaterally Neck supple and no JVD Resp Resp Narrative: Tachypnea, shallow respirations Auscultation: diminished lung sounds Cardio regular rhythm and no murmurs Rate: tachycardic GI non-tender and non-distended Palpation: soft Extremity normal to inspection Extremity Narrative: 1+ bilateral pedal edema General Extremety ED: Yes edema General Extremity: edema Neuro oriented x3 Sensorium / Orientation: alert; Negative for confused Psych mental status grossly normal Skin Skin Narrative: Diaphoretic Lesions: no lesions Rashes: no rashes MDM MDM MDM Narrative Medical decision making narrative: Patient evaluated for acute onset of difficulty breathing. On arrival patient is in respiratory distress. He he is on EMS CPAP. He is transferred onto noninvasive ventilation in the ER. ABG shows a slight decompensated respiratory acidosis. Patient does have improvement with BiPAP. He is given IV Lasix. I suspect he is having a CHF exacerbation brought on by noncompliance with his home BiPAP. In addition patient states he has been drinking 6 Pepsi's a day. He will be admitted for acute exacerbation of CHF. Patient and are agreeable to splenic care. Lab Data Attestation: I reviewed the patient's lab results. Labs: Laboratory Results - last 24 hr 03/15/21 03/15/21 03/15/21 08:08 08:08 08:08 WBC 8.8 RBC 4.21 L Hgb 11.4 L Hct 38.6 L MCV 91.7 MCH 27.1 MCHC 29.5 L RDW Std Deviation 51.1 H RDW Coeff of Sherin 15.2 H Plt Count 219 MPV 12.0 Immature Gran % (Auto) 0.600 Neut % (Auto) 77.7 H Lymph % (Auto) 12.4 L Cataño % (Auto) 5.9 Eos % (Auto) 2.6 Baso % (Auto) 0.8 Absolute Neuts (auto) 6.8 Absolute Lymphs (auto) 1.09 Nucleated RBC % 0 Sodium 135 L Potassium 4.3 Chloride 102 Carbon Dioxide 24.0 Anion Gap 9 BUN 17 Creatinine 1.02 Estim Creat Clear Calc 67.39 Est GFR (MDRD) Af Amer 93 Est GFR (MDRD) Non-Af 77 BUN/Creatinine Ratio 16.7 Glucose 333 H Lactic Acid Calcium 8.8 Troponin I High Sens 12 B-Natriuretic Peptide 221.9 H 03/15/21 08:08 WBC RBC Hgb Hct MCV MCH MCHC RDW Std Deviation RDW Coeff of Sherin Plt Count MPV Immature Gran % (Auto) Neut % (Auto) Lymph % (Auto) Cataño % (Auto) Eos % (Auto) Baso % (Auto) Absolute Neuts (auto) Absolute Lymphs (auto) Nucleated RBC % Sodium Potassium Chloride Carbon Dioxide Anion Gap BUN Creatinine Estim Creat Clear Calc Est GFR (MDRD) Af Amer Est GFR (MDRD) Non-Af BUN/Creatinine Ratio Glucose Lactic Acid 2.3 H* Calcium Troponin I High Sens B-Natriuretic Peptide ABG Data ABG results: ABG 03/15/21 08:19 Specimen Type ART Sample Site R Radial pH 7.33 L Bicarbonate Actual 24.6 Total CO2 26 Base Excess -1 O2 Saturation 99 O2 % 50 ABG pCO2 46.2 H ABG pO2 143 H Dejon Test Positive Respiration Rate 12 O2 Delivery Device BiPAP Clinical Comments BiPap 23/03 Radiography Chest X-Ray - ED: 1 View, Read by ED Physician, Read by Radiologist, Chronic Changes and CHF Diagnostic Testing: Clinical Impression(s) from Imaging Studies Chest X-Ray 03/15/21 08:00 IMPRESSION: 1. No interval change. 2. Chronic CHF. Electronically Signed: Kyaw Esparza MD ([facility]) at 8:46 EDT , Service support , Rhythm Strip Rhythm Strip: Sinus Rhythm Rate: 98 Ectopy: None EKG Initial EKG: Attestation: I personally reviewed and interpreted this EKG as follows: Interpretation: Sinus Rhythm Comments: Normal sinus rhythm at a rate of 98 Normal axis Nonspecific T wave inversion in lead III with T wave flattening in 2 and aVF VA interval 176 QRS 108 QTc 500 Critical Care Time Critical Care Time: Yes Critical care time (excluding procedures): 30-74 minutes (35), Including time spent: (Discussing CODE STATUS, frequent respiratory monitoring and sudden risk of clinical deterioration secondary to respiratory distress), Discussing 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
[2021-03-15 08:18] LABS: Absolute Lymphocyte Count 1.09 X10^3/uL (0.83-4.51); Absolute Neutrophil Count 6.8 X10^3/uL (2.0-7.7); Basophil# 0.07 X10^3/uL; Basophil% 0.8 % (0-1); Eosinophil# 0.23 X10^3/uL; Eosinophils% 2.6 % (0-5); Hematocrit 38.6 % (40-54); Hemoglobin 11.4 g/dL (13.0-16.5); Lymphocyte # 1.09 X10^3/ul (0.83-4.51); Lymphocyte % 12.4 % (19-41); Mean Corp Hgb Conc 29.5 g/dL (32-36); Mean Corpuscular Hgb 27.1 pg (27.0-32.0); Mean Corpuscular Volume 91.7 fL (80-94); Monocyte# 0.52 X10^3/uL; Monocyte% 5.9 % (0-10); NRBC Flagged by Analyzer 0 % (0-5); Neutrophil # 6.82 X10^3/uL (2.7-7.7); Neutrophil % 77.7 % (47-70); Platelet Count 219 K/mm3 (150-450); RBC Distribution Width CV 15.2 % (11.6-14.6); RBC Distribution Width SD 51.1 fl (35.1-43.9); Red Blood Count 4.21 M/mm3 (4.6-6.2); White Blood Count 8.8 K/mm3 (4.4-11.0)
[2021-03-15 08:26] LABS: Allen Test Positive; Base Excess -1 mmol/L (-2 to +2); Bicarbonate 24.6 mmol/L (22-26); Blood Gas Specimen Type ART; FI02 50; O2 Delivery Device BiPAP; PO2 143 mmHG (75-100); RR 12; SITE R Radial; SO2 99 % (95-99); Total Carbon Dioxide 26 mmol/L; pCO2 46.2 mmHg (35-45); pH 7.33 (7.35-7.45)
[2021-03-15 08:35] LABS: Anion Gap 9 (5-15); BUN 17 mg/dL (7-18); BUN/Creat Ratio 16.7 RATIO (10-20); Calcium,Total 8.8 mg/dL (8.5-10.1); Chloride 102 mmol/L (98-107); Creatinine, Serum 1.02 mg/dL (0.70-1.30); EST Glomerular Filtration Rate 77 mL/min (>60); Est Glom Filt Rate - Afr Amer 93 mL/min (>60); Estimated Creatinine Clearance 67.39 ml/min; Glucose 333 mg/dL (74-106); Potassium 4.3 mmol/L (3.5-5.1); Sodium Level 135 mmol/L (136-145); Troponin-I HS 12 pg/mL (3.0-78.0)
[2021-03-15 08:37] LABS: BNP,B-Type NATRIURETIC PEPTIDE 221.9 pg/mL (0-100)
[2021-03-15 08:55] LABS: Lactic Acid 2.3 mmol/L (0.4-1.9)
[2021-03-15] MEDS: Furosemide 40 MG/4 ML Vial IV ×2 (08:55→17:27)
--- NOTE | 2021-03-15 09:37 | HP.PCM.HOS_ITS ---
HPI - General General Date of Admission: 03/15/21 HPI Narrative KYAW GARCIA, is a 70 M with an extensive PMH as outlined who presents via the ED with a complaint of shortness of breath. History was taken from his mainly as patient was lethargic and on BIPAP. He came from his SNF where he was noted to be acutely short of breath. His CPAP machine had been broken, and so he has been using just oxygen by nasal canula. He denied any chest pain, palpitations, dizziness, but admitted to sweating. He had swelling of his lower extremities. Review of systems otherwise negative. Vitals showed BP of 129/66, ME of 86, RR of 16 and temp of 98.9F. FiO2 was 50 on BIPAP. CBC showed Hb of 11.4, wwnc of 8.8 and platelets of 219.Chemistry was significant for sodium of 135 nad lactic acid of 2.3. BNP was 221.9. He is being admitted to be managed for acute on chronic HFrEF. [facility] Medical History Acute on chronic systolic (congestive) heart failure Acute pulmonary edema (09/14/20) Acute respiratory failure with hypoxia (09/14/20) Acute respiratory failure with hypoxia and hypercapnia Alcohol abuse Allergic rhinitis Anemia Anxiety Atherosclerosis Atherosclerosis of coronary artery bypass graft without angina pectoris Benign prostatic hyperplasia Chronic combined systolic and diastolic CHF (congestive heart failure) COPD (chronic obstructive pulmonary disease) COPD with acute exacerbation CVA (cerebral vascular accident) Depression Diabetes Dysphagia Essential (primary) hypertension GERD (gastroesophageal reflux disease) Heart failure History of non-ST elevation myocardial infarction (NSTEMI) (02/21/19) HTN (hypertension) Hyperlipidemia Intraparenchymal hemorrhage of brain Intraventricular hemorrhage Ischemic cardiomyopathy Morbid obesity Myocardial infarct Neuromuscular dysfunction of bladder Nicotine dependence Obesity Obstructive sleep apnea Osteomyelitis of sacrum Recurrent UTI (urinary tract infection) Reflux esophagitis Restless leg syndrome Right hemiplegia RLS (restless legs syndrome) Sleep apnea Subarachnoid hemorrhage Subdural hematoma Tobacco abuse Traumatic brain injury Type 2 diabetes mellitus Home Medications amantadine HCl 100 mg PO DAILY 04/17/18 [History Last Taken 02/17/21] pantoprazole 40 mg PO DAILY 04/17/18 [History Last Taken 02/17/21] pramipexole 0.25 mg PO QHS 04/17/18 [History Last Taken 02/16/21] pravastatin 80 mg PO QHS 04/17/18 [History Last Taken 02/16/21] fluoxetine 60 mg PO DAILY 02/20/19 [History Last Taken 02/17/21] nitroglycerin 0.4 mg SUBLINGUAL PRN PRN 02/20/19 [History Last Taken Unknown] aspirin 81 mg PO DAILY@0800 02/24/19 [History Last Taken 02/17/21] acetaminophen 1,000 mg PO Q6H PRN PRN tab 03/03/19 [Rx Last Taken Unknown] bisacodyl 10 mg RC DAILY PRN PRN 09/14/19 [History Last Taken Unknown] insulin aspart U-100 [Novolog Flexpen U-100 Insulin] See Protocol SC TIDCM 09/14/19 [History Last Taken Unknown] oxycodone 5 mg PO Q6H PRN PRN 09/14/19 [History Last Taken 02/17/21] sennosides-docusate sodium 2 ea PO BID 01/02/20 [History Last Taken 02/17/21] melatonin 3 mg PO QHS 09/14/20 [History Last Taken 02/16/21] sacubitril 24 mg-valsartan 26 mg tablet 1 tab PO BID 10/10/20 [History Last Taken 02/17/21] Basaglar KwikPen U-100 Insulin 18 unit SUBCUT QPM 02/17/21 [History Last Taken 02/17/21] Brilinta 90 mg PO BID 02/17/21 [History Last Taken 02/17/21] fluticasone propionate 1 puff INHALATION BID 02/17/21 [History Last Taken 02/17/21] insulin aspart U-100 [Novolog Flexpen U-100 Insulin] 12 unit SUBCUT TID 02/17/21 [History Last Taken 02/17/21] menthol-zinc oxide 1 applic TOPICAL 0600,2200 02/17/21 [History Last Taken Unknown] tamsulosin 0.4 mg PO QHS 02/17/21 [History Last Taken 02/16/21] furosemide 40 mg PO BID #0 tab 02/18/21 [Rx Last Taken Unknown] carvedilol 25 mg PO BID #0 tab 02/20/21 [Rx Last Taken Unknown] potassium chloride 40 meq PO DAILY 90 Days #90 tab 02/20/21 [Rx Last Taken 02/17/21] Allergy/AdvReac Type Severity Reaction Status Date / Time atorvastatin Allergy PT UNSURE Verified 03/15/21 08:16 OF REACTION cilostazol Allergy Hives Verified 03/15/21 08:16 colestipol Allergy Hives Verified 03/15/21 08:16 diltiazem Allergy Hives Verified 03/15/21 08:16 gemfibrozil Allergy Hives Verified 03/15/21 08:16 naproxen [From Naprosyn] Allergy Hives Verified 03/15/21 08:16 niacin Allergy PT UNSURE Verified 03/15/21 08:16 OF REACTION Nitrate Analogues Allergy Hives Verified 03/15/21 08:16 Penicillins Allergy Hives Verified 03/15/21 08:16 pravastatin Allergy NEEDS Verified 03/15/21 08:16 FOLLOW-UP procainamide Allergy Hives Verified 03/15/21 08:16 procaine Allergy NEEDS Verified 03/15/21 08:16 FOLLOW-UP rosuvastatin Allergy Hives Verified 03/15/21 08:16 simvastatin Allergy Hives Verified 03/15/21 08:16 isosorbide AdvReac Severe Unknown Verified 03/15/21 08:16 Family History Brother Heart disease Father Heart disease Mother No history of heart disease Surgical History Chronic suprapubic catheter H/O coronary angioplasty H/O coronary artery bypass surgery (2001) History of coronary artery stent placement (09/18/20) History of left heart catheterization (09/17/20) PEG (percutaneous endoscopic gastrostomy) adjustment/replacement/removal Status post ileostomy Status post osteotomy (01/2018) Social History Smoking Status: Light Smoker (<10/day) how long ago did patient quit smokin, 1ppd second hand exposure: Yes alcohol intake: never caffeine: Yes Type: coffee Number of servings: 3 what type of physical activity do you participate in: none ROS Constitutional Constitutional: Denies anorexia, chills, fever(s), malaise or night sweats Eyes Eyes: Denies change in vision ENT HEENT: Denies dysphagia or nasal congestion Cardiovascular Cardiovascular: Reports dyspnea on exertion, edema, orthopnea and paroxysmal nocturnal dyspnea; Denies chest pain, lightheadedness, palpitations, rapid heart rate or syncope Respiratory/Chest Respiratory/Chest: Reports cough, dyspnea, shortness of breath at rest and shortness of breath with exertion; Denies excessive phlegm production, hemoptysis or productive cough Gastrointestinal Gastrointestinal: Denies abdominal pain, constipation, dyspepsia or melena Genitourinary Genitourinary: Denies dysuria Musculoskeletal Musculoskeletal: Denies arthralgias or joint stiffness Neurologic Neurologic: Denies abnormal gait, confusion, dizziness, focal weakness, headache(s), seizures or syncope Psychiatric Psychiatric: Denies anxiety Hematologic/Lymphatic Hematologic/Lymphatic: Denies anemia Vital Signs Vital Signs Vital Signs: 03/15/21 07:58 03/15/21 08:03 03/15/21 08:14 Temperature 98.4 F 98.4 F Temperature Source Temporal Temporal Pulse Rate 120 H 116 H 109 H Respiratory Rate 34 H 30 H 37 H Respiratory Effort Short of Breath Labored Respiratory Depth Shallow Respiratory Pattern Tachypnea Blood Pressure 181/100 H 181/100 H Blood Pressure Mean 127 127 Pulse Ox 97 98 97 Oxygen Delivery Method Bi-pap Bi-pap Fraction of Inspired Oxygen (FIO2) 50 50 50 03/15/21 08:19 03/15/21 08:45 03/15/21 09:34 Temperature 98.9 F Temperature Source Temporal Pulse Rate 92 86 Respiratory Rate 24 H 16 Respiratory Effort Respiratory Depth Respiratory Pattern Blood Pressure 118/57 L 129/66 H Blood Pressure Mean 77 87 Pulse Ox 97 94 98 Oxygen Delivery Method Bi-pap Bi-pap Fraction of Inspired Oxygen (FIO2) 40 50 Weight Weight: 302 lb 7.587 oz Body Mass Index (BMI) 44.6 Physical Exam Const alert General Appearance: cooperative Orientation / Consciousness: lethargic HEENT normocephalic, head/scalp atraumatic, hearing grossly normal bilaterally and moist oral mucous membranes Eyes PERRL and EOMs intact bilaterally Neck no lymphadenopathy, supple and no JVD Resp Resp Narrative: diminished breath sounds bibasally, few crackles. No wheezing. On BIPAP. Cardio regular rate, regular rhythm, S1 normal heart sound, S2 normal heart sound and no murmurs GI normal to inspection, nondistended, normoactive bowel sounds, soft to palpation, non-tender and non-distended Extremity Extremity Narrative: bilateral LE edema Peripheral Pulses: Yes pulses 2+ throughout Skin no rashes or lesions noted Neuro CN's II-XII intact bilaterally and moves all extremities Neuro Narrative: lethargic Sensorium / Orientation: awake and alert Psych affect normal Results Lab / Micro Data Result Diagrams: 03/15/21 08:08 03/15/21 08:08 Labs: Laboratory Results - last 24 hr 03/15/21 08:08: WBC 8.8, RBC 4.21 L, Hgb 11.4 L, Hct 38.6 L, MCV 91.7, MCH 27.1, MCHC 29.5 L, RDW Std Deviation 51.1 H, RDW Coeff of Sherin 15.2 H, Plt Count 219, M PV 12.0, Immature Gran % (Auto) 0.600, Neut % (Auto) 77.7 H, Lymph % (Auto) 12.4 L, Floyd % (Auto) 5.9, Eos % (Auto) 2.6, Baso % (Auto) 0.8, Absolute Neuts (auto) 6.8, Absolute Lymphs (auto) 1.09, Nucleated RBC % 0 03/15/21 08:08: Sodium 135 L, Potassium 4.3, Chloride 102, Carbon Dioxide 24.0, Anion Gap 9, BUN 17, Creatinine 1.02, Estim Creat Clear Calc 67.39, Est GFR (MDRD) Af Amer 93, Est GFR (MDRD) Non-Af 77, BUN/Creatinine Ratio 16.7, Glucose 333 H, Calcium 8.8, Troponin I High Sens 12 03/15/21 08:08: B-Natriuretic Peptide 221.9 H 03/15/21 08:08: Lactic Acid 2.3 H* Micro: Microbiology 03/15/21 08:00 Nasal Secretion SARS-CoV-2 Antigen (Rapid) - Final ABG Data ABG results: ABG 03/15/21 08:19 Specimen Type ART Sample Site R Radial pH 7.33 L Bicarbonate Actual 24.6 Total CO2 26 Base Excess -1 O2 Saturation 99 O2 % 50 ABG pCO2 46.2 H ABG pO2 143 H Dejon Test Positive Respiration Rate 12 O2 Delivery Device BiPAP Clinical Comments BiPap 23/03 Rhythm Strip Rhythm Strip: Sinus Rhythm Rate: 98 Ectopy: None Radiology Impression Chest X-Ray 03/15/21 08:00 IMPRESSION: 1. No interval change. 2. Chronic CHF. Electronically Signed: Kyaw Esparza MD ([place]) at 8:46 EDT , Service support , Assessment & Plan Assessment/Plan (1) Acute on chronic heart failure with normal ejection fraction: PLAN: #Acute on chronic HFpEF * was recently admitted for the same issue and discharged a few weeks ago. * admit to PCU with telemetry * diurese with IV lasix 40mg bid * monitor intake and output * fluid restriction to 1500cc daily * has known EF of 55% * CXR showed chronic heart failure * breathing treatment with bronchodilators * on entresto * BIPAP prn. To wean off as tolerated. * #Acute on chronic respiratory faiure due to heart failure * as above * #Type 2 diabetes mellitus * contionue home insulin dose * ISS. Accuchecks ACHS * #JIM: says his CPAP is broken so has not been using it. #Stage II pressure ulcer: present on admission. Stable. Consult wound care #Hypertension: on carvedilol and furosemide. #Restless leg synrome: on pramipexole #Hyperlipidemia: on statin #Anxiety and depression; on prozac. #CAd s/p stents: On aspirin and statin as well as metoprolol. DVT prophylaxis: lovenox Code status: DNR CCA no intubation * Patient counseled extensively about different types of CODE STATUS including full code, DNR CCA and DNR CCA. Patient's is his POA and says he does not want to be intubated or have compressions or revived in any way. * Total [id number] time 16 minutes. Charges/Coding Visit Charges Inpatient E&M: 69014 Init Hosp L3 Procedures Hospitalists Procedures: 42714 Advncd Care Plan 30 Min
--- NOTE | 2021-03-15 09:42 | ED.RN ---
ECF NURSE MATHEW NOTIFIED OF PT ADMISSION.
[2021-03-15 12:15] LABS: Reflex Lactate? Y
[2021-03-15 12:58] LABS: Lactic Acid 1.7 mmol/L (0.4-1.9)
[2021-03-15 13:47] LABS: Troponin-I HS 35 pg/mL (3.0-78.0)
[2021-03-15] MEDS: Senna/Docusate Sodium 1 Tablet 2 TABLET PO ×2 (13:51→20:54)
[2021-03-15] MEDS: SACUBITRIL/VALSARTAN 24/26 MG TABLET 1 EACH PO ×2 (13:53→20:52)
[2021-03-15] MEDS: Potassium Chloride Oral Tablet 20 MEQ 40 MEQ PO (13:53)
[2021-03-15] MEDS: FLUoxetine 20 MG Capsule 60 MG PO (13:54)
[2021-03-15] MEDS: TICAGRELOR 90 MG TABLET PO ×2 (13:54→20:51)
[2021-03-15] MEDS: Pantoprazole Sodium 40 MG Tablet PO (13:54)
[2021-03-15] MEDS: Amantadine 100 MG Capsule PO (13:54)
[2021-03-15] MEDS: Enoxaparin 40 MG/0.4 ML Syringe SC (13:55)
[2021-03-15 14:43] LABS: Troponin-I HS 36 pg/mL (3.0-78.0)
[2021-03-15 15:06] LABS: Bedside Glucose 161 mg/dL (70-110)
[2021-03-15] MEDS: Acetaminophen 500 MG Tablet 1000 MG PO (16:56)
[2021-03-15] MEDS: oxyCODONE 5 MG Tablet PO ×2 (16:56→23:09)
[2021-03-15 17:20] LABS: Bedside Glucose 248 mg/dL (70-110)
[2021-03-15] MEDS: Ondansetron 4 MG/2 ML Vial IV (17:20)
[2021-03-15] MEDS: Carvedilol 25 MG Tablet PO (17:20)
[2021-03-15] MEDS: Insulin Lispro 100 UNIT/ML INSULN.PEN 12 UNIT SC (17:20)
[2021-03-15] MEDS: 0.9% Saline Lock 10 ML Syringe IV ×2 (17:20→17:26)
[2021-03-15] MEDS: Insulin Lispro 100 UNIT/ML INSULN.PEN SC ×2 (17:21→21:04)
[2021-03-15] MEDS: Budesonide Respules 0.5 MG/2 ML AMPUL.NEB. INHALATION (18:51)
[2021-03-15] MEDS: Menthol/Lanolin/Calamine/Znox 113 GM Tube 1 APPLIC TOPICAL (20:51)
[2021-03-15] MEDS: Pramipexole Di-HCl 0.25 MG Tablet PO (20:53)
[2021-03-15] MEDS: Tamsulosin HCl 0.4 MG Capsule PO (20:53)
[2021-03-15] MEDS: MELATONIN 3 MG TABLET PO (20:53)
[2021-03-15] MEDS: Pravastatin 80 MG Tablet PO (20:54)
[2021-03-15 21:16] LABS: Bedside Glucose 172 mg/dL (70-110)
[2021-03-16] VITALS (11 sets, daily range): BP systolic 111–142; BP diastolic 63–76; PULSE 68–86; RESP 17–20; TEMP 36.5–36.7; O2SAT 94–99
[2021-03-16] MEDS: Morphine 2 MG/ML Syringe IV (00:21)
[2021-03-16] MEDS: 0.9% Saline Lock 10 ML Syringe IV (00:21)
[2021-03-16] MEDS: Menthol/Lanolin/Calamine/Znox 113 GM Tube 1 APPLIC TOPICAL ×2 (05:14→21:06)
[2021-03-16 06:34] LABS: Absolute Lymphocyte Count 1.19 X10^3/uL (0.83-4.51); Basophil# 0.04 X10^3/uL; Basophil% 0.6 % (0-1); Eosinophil# 0.15 X10^3/uL; Eosinophils% 2.1 % (0-5); Hematocrit 33.2 % (40-54); Hemoglobin 10.1 g/dL (13.0-16.5); Lymphocyte # 1.19 X10^3/ul (0.83-4.51); Lymphocyte % 16.9 % (19-41); Mean Corp Hgb Conc 30.4 g/dL (32-36); Mean Corpuscular Hgb 26.9 pg (27.0-32.0); Mean Corpuscular Volume 88.5 fL (80-94); Mean Platelet Vol. 11.9 fl (6.2-12.0); Monocyte% 8.5 % (0-10); NRBC Flagged by Analyzer 0 % (0-5); Neutrophil # 5.04 X10^3/uL (2.7-7.7); Neutrophil % 71.6 % (47-70); Platelet Count 179 K/mm3 (150-450); RBC Distribution Width CV 15.4 % (11.6-14.6); Red Blood Count 3.75 M/mm3 (4.6-6.2)
[2021-03-16 07:06] LABS: Anion Gap 6 (5-15); BUN 18 mg/dL (7-18); BUN/Creat Ratio 19.1 RATIO (10-20); Calcium,Total 8.7 mg/dL (8.5-10.1); Chloride 104 mmol/L (98-107); Creatinine, Serum 0.94 mg/dL (0.70-1.30); EST Glomerular Filtration Rate 84 mL/min (>60); Est Glom Filt Rate - Afr Amer 102 mL/min (>60); Estimated Creatinine Clearance 73.12 ml/min; Glucose 167 mg/dL (74-106); Potassium 3.8 mmol/L (3.5-5.1); Sodium Level 139 mmol/L (136-145)
[2021-03-16] MEDS: Budesonide Respules 0.5 MG/2 ML AMPUL.NEB. INHALATION ×2 (07:18→19:29)
[2021-03-16] MEDS: Enoxaparin 40 MG/0.4 ML Syringe SC (08:50)
[2021-03-16] MEDS: Furosemide 40 MG/4 ML Vial IV ×2 (08:50→17:05)
[2021-03-16] MEDS: FLUoxetine 20 MG Capsule 60 MG PO (08:51)
[2021-03-16] MEDS: Carvedilol 25 MG Tablet PO ×2 (08:51→17:01)
[2021-03-16] MEDS: Potassium Chloride Oral Tablet 20 MEQ 40 MEQ PO (08:51)
[2021-03-16] MEDS: Pantoprazole Sodium 40 MG Tablet PO (08:51)
[2021-03-16] MEDS: Amantadine 100 MG Capsule PO (08:51)
[2021-03-16] MEDS: Aspirin 81 MG TAB.CHEW PO (08:51)
[2021-03-16] MEDS: SACUBITRIL/VALSARTAN 24/26 MG TABLET 1 EACH PO ×2 (08:51→21:04)
[2021-03-16] MEDS: Senna/Docusate Sodium 1 Tablet 2 TABLET PO ×2 (08:51→21:03)
[2021-03-16] MEDS: TICAGRELOR 90 MG TABLET PO ×2 (08:51→21:03)
[2021-03-16] MEDS: Insulin Lispro 100 UNIT/ML INSULN.PEN 12 UNIT SC ×2 (08:52→12:26)
[2021-03-16 10:11] LABS: Bedside Glucose 143 mg/dL (70-110)
[2021-03-16] MEDS: Insulin Lispro 100 UNIT/ML INSULN.PEN SC ×2 (11:38→21:05)
[2021-03-16 12:01] LABS: Bedside Glucose 189 mg/dL (70-110)
--- NOTE | 2021-03-16 12:44 | PN.HOSP_ITS ---
Subjective Subjective Patient seen and examined. He feels much better todahy. He is off BIPAP now, and is on 2L of oxygen. Review of systems otherwise negativ.e Objective Data Objective Data Vital Signs: Vital Signs Temp Pulse Resp BP Pulse Ox 98.0 F 78 18 111/76 94 03/16/21 08:40 03/16/21 08:40 03/16/21 08:40 03/16/21 08:40 03/16/21 08:40 Oxygen Flow Rate (L/min) 2 Oxygen Delivery Method Nasal Cannula Weight: 302 lb 7.587 oz Body Mass Index (BMI) 44.8 Intake & Output: Intake and Output for Last 24 Hours 03/14/21 03/15/21 03/16/21 23:59 23:59 23:59 Intake Total 1040 / 1040 120 / 120 Output Total 3700 / 3700 600 / 600 Balance -2660 / -2660 -480 / -480 Lab / Micro Data Result Diagrams: 03/16/21 06:20 03/16/21 06:20 Labs: Laboratory Results - last 24 hr 03/15/21 12:27: Lactic Acid 1.7 03/15/21 13:15: Troponin I High Sens 35 03/15/21 14:15: Troponin I High Sens 36 03/15/21 14:58: POC Glucose 161 H 03/15/21 17:13: POC Glucose 248 H 03/15/21 21:04: POC Glucose 172 H 03/16/21 06:20: WBC 7.0, RBC 3.75 L, Hgb 10.1 L, Hct 33.2 L, MCV 88.5, MCH 26.9 L, MCHC 30.4 L, RDW Std Deviation 50.0 H, RDW Coeff of Sherin 15.4 H, Plt Count 179, MPV 11.9, Immature Gran % (Auto) 0.300, Neut % (Auto) 71.6 H, Lymph % (Auto) 16.9 L, [place] % (Auto) 8.5, Eos % (Auto) 2.1, Baso % (Auto) 0.6, Absolute Neuts (auto) 5.0, Absolute Lymphs (auto) 1.19, Nucleated RBC % 0 03/16/21 06:20: Sodium 139, Potassium 3.8, Chloride 104, Carbon Dioxide 29.0, Anion Gap 6, BUN 18, Creatinine 0.94, Estim Creat Clear Calc 73.12, Est GFR (MDRD) Af Amer 102, Est GFR (MDRD) Non-Af 84, BUN/Creatinine Ratio 19.1, Glucose 167 H, Calcium 8.7 03/16/21 08:41: POC Glucose 143 H 03/16/21 11:36: POC Glucose 189 H Micro: Microbiology 03/15/21 08:00 Nasal Secretion SARS-CoV-2 Antigen (Rapid) - Final Rhythm Strip Rhythm Strip: Sinus Rhythm Rate: 98 Ectopy: None Physical Exam Const alert, oriented x3 and no apparent distress General Appearance: cooperative Exam Limitations: no limitations HEENT normocephalic, head/scalp atraumatic, hearing grossly normal bilaterally and moist oral mucous membranes Head and Scalp: normocephalic Eyes PERRL and EOMs intact bilaterally Neck no lymphadenopathy, supple and no JVD Resp normal respiratory effort Resp Narrative: diminished breath sounds bibasally, few crackles. No wheezing. on 2L of oxygen Cardio regular rate, regular rhythm, S1 normal heart sound, S2 normal heart sound and n o murmurs GI normal to inspection, nondistended, normoactive bowel sounds, soft to palpation, non-tender and non-distended Extremity Extremity Narrative: bilateral LE edema Skin no rashes or lesions noted Neuro CN's II-XII intact bilaterally and moves all extremities Sensorium / Orientation: awake and alert Psych affect normal Assessment & Plan Assessment/Plan (1) Acute on chronic heart failure with normal ejection fraction: PLAN: #Acute on chronic HFpEF * now weaned off BIPAP. On 2L of oxygen now. * on IV lasix 40mg bid. * monitor intake nad ouotput. FLuid restriction to 1500cc daily. * EF of 55%. * breathing treatment with bronchodilators * on entresto * titrate oxygen to maintain sats >90% * * #Acute on chronic respiratory failure due to heart failure * as above * #Type 2 diabetes mellitus * continue home insulin dose * ISS. Accuchecks ACHS * #JIM: says his CPAP is broken so has not been using it. #Stage II pressure ulcer: present on admission. Stable. Consult wound care #Hypertension: on carvedilol and furosemide. #Restless leg synrome: on pramipexole #Hyperlipidemia: on statin #Anxiety and depression; on prozac. #CAd s/p stents: On aspirin and statin as well as metoprolol. DVT prophylaxis: lovenox Code status: DNR CCA no intubation * * Disposition: for likely DC back to SNF tomorrow. Charges/Coding Visit Charges Inpatient E&M: 22910 Subs Hosp L2
--- NOTE | 2021-03-16 16:17 | CASEMGMT ---
SOCIAL WORK Met with patient and in room. Patient reports will return back to [facility] as before. voiced concerns with patient's CPAP reporting it is missing a piece. Updated Micah BALDERAS who will follow up. Nursing staff updated on plan to return to [facility]-intermediate level of care. Arsalan Tavares, DISCOTHEQUE DANCER, TOUCH UP PAINTER
--- NOTE | 2021-03-16 16:30 | CASEMGMT ---
CAMILA BALDERAS readmission note: Previous admission: Pt admitted 02/17-02/18 from [facility] for hypoxic resp failure and d/c'd back to [facility]. Readmitted 02/18-02/19 w/hypertensive/CHF exac and d/c'd back to [facility]. See ANDREY Henderson note 02/19/21. Current admission: Admitted 03/15/21 w/Acute on Chronic HF. Pt w/hx of COPD and on chronic O2 @ baseline (2 l/m per report). 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 Pt presented w/SOB, pulse ox as low 65% for EMS (RA). Pt reported to ED that his BIPAP mask is not working so he is unable to wear it at night. CAMILA BALDERAS was informed by CONTRERAS Umanzor, that pt reported BIPAP mask part is broken. Pt has his BIPAP here @ [facility] to use while hospitalized. RN spoke w/Mary Ann, RT, re: same. She states she has spoken w/pt about this and will have next shift try to locate a nasal piece for pt to use w/his BIPAP tonight and then pt can take back to [facility] with him. CAMILA BALDERAS to room to talk w/pt. Pt states [facility] was able to get him a new BIPAP last month and that has been working--that it did not come w/nasal piece that he uses w/it and his old one was shot. Pt made aware [facility] RT to try and locate a replacement nasal piece for his BIPAP tonight. Pt instructed to notify [facility], when he returns, if [facility] unable to provide one for him while hospitalized so they can work w/pt's DME co to get replacement. He voices understanding. Pt denies having any other discharge planning concerns or needs. Leodan DUARTE RN, CM
[2021-03-16 17:21] LABS: Bedside Glucose 110 mg/dL (70-110)
[2021-03-16] MEDS: Pravastatin 80 MG Tablet PO (21:03)
[2021-03-16] MEDS: Tamsulosin HCl 0.4 MG Capsule PO (21:04)
[2021-03-16] MEDS: Pramipexole Di-HCl 0.25 MG Tablet PO (21:04)
[2021-03-16] MEDS: MELATONIN 3 MG TABLET PO (21:05)
[2021-03-16] MEDS: oxyCODONE 5 MG Tablet PO (21:20)
[2021-03-16 23:46] LABS: Bedside Glucose 245 mg/dL (70-110)
[2021-03-17] VITALS (7 sets, daily range): BP systolic 115–136; BP diastolic 54–103; PULSE 62–82; RESP 17–19; TEMP 36.4–36.8; O2SAT 95–99
[2021-03-17 06:30] LABS: Absolute Lymphocyte Count 1.13 X10^3/uL (0.83-4.51); Absolute Neutrophil Count 4.1 X10^3/uL (2.0-7.7); Basophil# 0.05 X10^3/uL; Basophil% 0.8 % (0-1); Eosinophil# 0.18 X10^3/uL; Eosinophils% 2.9 % (0-5); Hematocrit 36.2 % (40-54); Hemoglobin 10.9 g/dL (13.0-16.5); Lymphocyte # 1.13 X10^3/ul (0.83-4.51); Lymphocyte % 18.4 % (19-41); Mean Corp Hgb Conc 30.1 g/dL (32-36); Mean Corpuscular Volume 89.8 fL (80-94); Mean Platelet Vol. 11.7 fl (6.2-12.0); Monocyte# 0.64 X10^3/uL; Monocyte% 10.4 % (0-10); NRBC Flagged by Analyzer 0 % (0-5); Neutrophil # 4.11 X10^3/uL (2.7-7.7); Neutrophil % 67.2 % (47-70); Platelet Count 189 K/mm3 (150-450); RBC Distribution Width CV 15.4 % (11.6-14.6); RBC Distribution Width SD 50.7 fl (35.1-43.9); Red Blood Count 4.03 M/mm3 (4.6-6.2); White Blood Count 6.1 K/mm3 (4.4-11.0)
[2021-03-17] MEDS: Menthol/Lanolin/Calamine/Znox 113 GM Tube 1 APPLIC TOPICAL (06:32)
[2021-03-17 06:47] LABS: Anion Gap 7 (5-15); BUN 19 mg/dL (7-18); BUN/Creat Ratio 19.7 RATIO (10-20); Calcium,Total 9.3 mg/dL (8.5-10.1); Chloride 104 mmol/L (98-107); Creatinine, Serum 0.96 mg/dL (0.70-1.30); EST Glomerular Filtration Rate 82 mL/min (>60); Est Glom Filt Rate - Afr Amer 99 mL/min (>60); Glucose 156 mg/dL (74-106); Potassium 3.7 mmol/L (3.5-5.1); Sodium Level 139 mmol/L (136-145)
[2021-03-17] MEDS: Budesonide Respules 0.5 MG/2 ML AMPUL.NEB. INHALATION (07:15)
[2021-03-17] MEDS: Insulin Lispro 100 UNIT/ML INSULN.PEN 12 UNIT SC ×2 (08:48→11:42)
[2021-03-17] MEDS: Insulin Lispro 100 UNIT/ML INSULN.PEN SC ×2 (08:49→11:41)
[2021-03-17] MEDS: SACUBITRIL/VALSARTAN 24/26 MG TABLET 1 EACH PO (08:49)
[2021-03-17] MEDS: Carvedilol 25 MG Tablet PO (08:50)
[2021-03-17] MEDS: Potassium Chloride Oral Tablet 20 MEQ 40 MEQ PO (08:50)
[2021-03-17] MEDS: FLUoxetine 20 MG Capsule 60 MG PO (08:50)
[2021-03-17] MEDS: Senna/Docusate Sodium 1 Tablet 2 TABLET PO (08:50)
[2021-03-17] MEDS: TICAGRELOR 90 MG TABLET PO (08:51)
[2021-03-17] MEDS: Aspirin 81 MG TAB.CHEW PO (08:51)
[2021-03-17] MEDS: Furosemide 40 MG/4 ML Vial IV (08:51)
[2021-03-17] MEDS: Enoxaparin 40 MG/0.4 ML Syringe SC (08:51)
[2021-03-17] MEDS: Pantoprazole Sodium 40 MG Tablet PO (08:52)
[2021-03-17] MEDS: Amantadine 100 MG Capsule PO (08:52)
--- NOTE | 2021-03-17 10:50 | DS.PCM_ITS ---
Providers Date of Admission: 03/15/21 Primary Care Physician: Dr. Phillip Lindo MD Reason For Visit: ACUTE ON CHRONIC HEART FAILURE Diagnosis Discharge Diagnosis (1) Acute on chronic heart failure with normal ejection fraction: Status: Acute Code(s): I50.33 - Acute on chronic diastolic (congestive) heart failure Medications at Discharge Home Medications amantadine HCl 100 mg PO DAILY 04/17/18 pantoprazole 40 mg PO DAILY 04/17/18 pramipexole 0.25 mg PO QHS 04/17/18 pravastatin 80 mg PO QHS 04/17/18 fluoxetine 60 mg PO DAILY 02/20/19 nitroglycerin 0.4 mg SUBLINGUAL PRN PRN 02/20/19 aspirin 81 mg PO DAILY@0800 02/24/19 acetaminophen 1,000 mg PO Q6H PRN PRN tab 03/03/19 bisacodyl 10 mg RC DAILY PRN PRN 09/14/19 insulin aspart U-100 [Novolog Flexpen U-100 Insulin] See Protocol SC TIDCM 09/14/19 oxycodone 5 mg PO Q6H PRN PRN 09/14/19 sennosides-docusate sodium 2 ea PO BID 01/02/20 melatonin 3 mg PO QHS 09/14/20 sacubitril 24 mg-valsartan 26 mg tablet 1 tab PO BID 10/10/20 Basaglar KwikPen U-100 Insulin 18 unit SUBCUT QPM 02/17/21 Brilinta 90 mg PO BID 02/17/21 fluticasone propionate 1 puff INHALATION BID 02/17/21 insulin aspart U-100 [Novolog Flexpen U-100 Insulin] 12 unit SUBCUT TID 02/17/21 menthol-zinc oxide 1 applic TOPICAL 0600,2200 02/17/21 tamsulosin 0.4 mg PO QHS 02/17/21 furosemide 40 mg PO BID #0 tab 02/18/21 carvedilol 25 mg PO BID #0 tab 02/20/21 potassium chloride 40 meq PO DAILY 90 Days #90 tab 02/20/21 Hospital Course Operations None Procedures None Summary of Care Provided Minutes Spent on Discharge: 40 Hospital Course: FABY GARCIA, is a 70 M with an extensive PMH as outlined who presents via the ED with a complaint of shortness of breath. History was taken from his mainly as patient was lethargic and on BIPAP. He came from his SNF where he was noted to be acutely short of breath. His CPAP machine had been broken, and so he has been using just oxygen by nasal canula. He denied any chest pain, palpitations, dizziness, but admitted to sweating. He had swelling of his lower extremities. Review of systems otherwise negative. Vitals showed BP of 129/66, VT of 86, RR of 16 and temp of 98.9F. FiO2 was 50 on BIPAP. CBC showed Hb of 11.4, wwnc of 8.8 and platelets of 219.Chemistry was significant for sodium of 135 and lactic acid of 2.3. BNP was 221.9. He was admitted to be managed for acute on chronic hypoxic respiratory failure due to acute on chronic HFrEF. He was diuresed with IV lasix. He was weaned off BIPAP, and felt much better. He was transitioned to his oxygen 2L by nasal canula. He remained stable and was discharged home on 03/17/2021. He was counseled to be compliant with his CPAP in the SNF, and was discharged on lasix. He is to follow up with his PCP and outpatient pharmacy manager in 1-2 weeks. Patient seen and examined prior to discharge. He felt well and had no compl aints. Review of systems otherwise negative. Labs and vitals reviewed. Home medication reviewed and reconciled. Physical Exam Const alert, oriented x3 and no apparent distress General Appearance: cooperative Orientation / Consciousness: awake Exam Limitations: no limitations HEENT normocephalic, head/scalp atraumatic, hearing grossly normal bilaterally and moist oral mucous membranes Eyes PERRL and EOMs intact bilaterally Neck no lymphadenopathy, supple and no JVD Resp normal respiratory effort Resp Narrative: diminished breath sounds bibasally, few crackles. No wheezing. on 2L of oxygen Cardio regular rate, regular rhythm, S1 normal heart sound, S2 normal heart sound and no murmurs GI normal to inspection, nondistended, normoactive bowel sounds, soft to palpation, non-tender and non-distended Extremity Extremity Narrative: bilateral LE edema has improved Skin no rashes or lesions noted Neuro CN's II-XII intact bilaterally and moves all extremities Neuro Narrative: lethargic Sensorium / Orientation: awake and alert Psych affect normal Weight / BMI Weight Weight: 302 lb 7.587 oz Body Mass Index (BMI) 44.8 ABG / Lab / Microbiology Data Result Diagrams: 03/17/21 05:50 03/17/21 05:50 Laboratory: Laboratory Results - last 24 hr 03/16/21 11:36: POC Glucose 189 H 03/16/21 16:59: POC Glucose 110 03/16/21 21:02: POC Glucose 245 H 03/17/21 05:50: WBC 6.1, RBC 4.03 L, Hgb 10.9 L, Hct 36.2 L, MCV 89.8, MCH 27.0, MCHC 30.1 L, RDW Std Deviation 50.7 H, RDW Coeff of Sherin 15.4 H, Plt Count 189, MPV 11.7, Immature Gran % (Auto) 0.300, Neut % (Auto) 67.2, Lymph % (Auto) 18.4 L, [place] % (Auto) 10.4 H, Eos % (Auto) 2.9, Baso % (Auto) 0.8, Absolute Neuts (auto) 4.1, Absolute Lymphs (auto) 1.13, Nucleated RBC % 0 03/17/21 05:50: Sodium 139, Potassium 3.7, Chloride 104, Carbon Dioxide 28.0, Anion Gap 7, BUN 19 H, Creatinine 0.96, Estim Creat Clear Calc 71.60, Est GFR (MDRD) Af Amer 99, Est GFR (MDRD) Non-Af 82, BUN/Creatinine Ratio 19.7, Glucose 156 H, Calcium 9.3 Microbiology: Microbiology 03/15/21 08:00 Nasal Secretion SARS-CoV-2 Antigen (Rapid) - Final D/C Instructions Discharge Diet: Low fat / Low cholesterol Discharge Activity: Return to Normal Activity Call your doctor if you observe: Fever of 101 or Higher, Shortness of breath, Dizziness, Swelling in the ankles, Chest pain and Increased palpitations (irregular heartbeat) Meaningful Use Info Meaningful Use Diagnoses (Choose all that apply): CHF CHF DANII/ARB ordered at discharge?: Yes Documented LVEF (%): 55 Discharge Plan Admission Admit Date/Time: 03/15/21 09:47 Primary Reason for Your Visit: acute on chronic heart failure Attending Provider: Safia Ortiz Primary Care Provider: Phillip Lindo Instructions Patient Instructions: ED Heart Failure, Congestive (CHF) Discharge Orders/Prescriptions Prescriptions: Continued Entresto 24-26 mg tablet 1 tab PO BID RF: 0 amantadine HCl 100 MG capsule 100 mg PO DAILY RF: 0 pravastatin 80 MG tablet 80 mg PO QHS RF: 0 pantoprazole 40 MG tablet 40 mg PO DAILY RF: 0 pramipexole 0.25 MG tablet 0.25 mg PO QHS RF: 0 nitroglycerin 0.4 MG tablet, sublingual 0.4 mg sublingual PRN PRN (Reason: CHEST PAIN) RF: 0 fluoxetine 20 MG capsule 60 mg PO DAILY RF: 0 aspirin 81 MG tablet,chewable 81 mg PO DAILY@0800 RF: 0 acetaminophen 500 MG tablet 1,000 mg PO Q6H PRN PRN (Reason: Mild Pain (-08/15)) RF: 0 bisacodyl 10 MG suppository 10 mg RC DAILY PRN PRN (Reason: Constipation) RF: 0 oxycodone 5 MG tablet 5 mg PO Q6H PRN PRN (Reason: Pain Or Fever) RF: 0 insulin aspart U-100 [Novolog Flexpen U-100 Insulin] 100 UNITS/ML insulin pen See Protocol units SC TIDCM RF: 0 sennosides-docusate sodium 1 EACH tablet 2 ea PO BID RF: 0 melatonin 3 MG tablet,disintegrating 3 mg PO QHS RF: 0 tamsulosin 0.4 mg Capsule 0.4 mg PO QHS RF: 0 fluticasone propionate 110 mcg/actuation Hfa Aerosol Inhaler 1 puff INHALATION BID RF: 0 insulin aspart U-100 [Novolog Flexpen U-100 Insulin] 100 unit/mL (3 mL) Insulin Pen 12 unit SUBCUT TID RF: 0 Basaglar KwikPen U-100 Insulin 100 unit/mL (3 mL) Insulin Pen 18 unit SUBCUT QPM RF: 0 Brilinta 90 mg Tablet 90 mg PO BID RF: 0 menthol-zinc oxide 1 APPLIC ointment 1 applic TOPICAL 0600,2200 RF: 0 furosemide 40 mg tablet 40 mg PO BID Qty: 0 RF: 0 carvedilol 25 mg Tablet 25 mg PO BID Qty: 0 RF: 0 potassium chloride 20 mEq tablet,ER particles/crystals 40 meq PO DAILY 90 Days Qty: 90 RF: 0 Referrals / Follow Up: Lindo,Phillip, MD [Primary Care Provider] - Within 2 Weeks Disposition Disposition (needs filled in before D/C Order can be placed): NonSkilled NH/Intermed Care Charges/Coding Visit Charges Inpatient E&M: 60872 Disch Hosp
[2021-03-17 11:41] LABS: Bedside Glucose 160 mg/dL (70-110)
[2021-03-17] MEDS: oxyCODONE 5 MG Tablet PO (11:42)
[2021-03-17] MEDS: Acetaminophen 500 MG Tablet 1000 MG PO (11:45)
--- NOTE | 2021-03-17 12:02 | PCM.TXEXTCAR ---
Diet 03/15/21 13:42 Diet: Cardiac: Calorie-Controlled Dietary Modifications:: Sodium Restricted Consistent Carbohydrate Is pt able to select menu?: Yes Fluid restriction:: 1500 mL How many daily calories?: 2000 calorie Problem/Diagnosis (1) Acute on chronic heart failure with normal ejection fraction: Status: Acute Allergies/Procedures Done in Hospital Allergies atorvastatin Allergy (Verified 03/15/21 08:16) PT UNSURE OF REACTION cilostazol Allergy (Verified 03/15/21 08:16) Hives colestipol Allergy (Verified 03/15/21 08:16) Hives diltiazem Allergy (Verified 03/15/21 08:16) Hives gemfibrozil Allergy (Verified 03/15/21 08:16) Hives naproxen [From Naprosyn] Allergy (Verified 03/15/21 08:16) Hives niacin Allergy (Verified 03/15/21 08:16) PT UNSURE OF REACTION Nitrate Analogues Allergy (Verified 03/15/21 08:16) Hives Penicillins Allergy (Verified 03/15/21 08:16) Hives pravastatin Allergy (Verified 03/15/21 08:16) NEEDS FOLLOW-UP procainamide Allergy (Verified 03/15/21 08:16) Hives procaine Allergy (Verified 03/15/21 08:16) NEEDS FOLLOW-UP rosuvastatin Allergy (Verified 03/15/21 08:16) Hives simvastatin Allergy (Verified 03/15/21 08:16) Hives isosorbide Adverse Reaction (Severe, Verified 03/15/21 08:16) Unknown Type of Care/Length of Stay Estimated LOS: More Than 30 Days Type of Care Needed: Skilled Rehab Potential: Fair Prognosis: Fair Additional Orders/Day of Discharge Day of Discharge: 03/17/21 Dietary and Speech Recommendations Dietitian Recommendations/Changes: Will adjust diet to 2000 calorie; consistent carbohydrate; cardiac/sodium-restricted with 1500ml FR. ONS only if PO fails at meals, not indicated at this time. Pt resides at [facility], diet ed as indicated. Discharge Plan Admission Admit Date/Time: 03/15/21 09:47 Primary Reason for Your Visit: acute on chronic heart failure Attending Provider: Safia Ortiz Primary Care Provider: Phillip Lindo Instructions Patient Instructions: ED Heart Failure, Congestive (CHF) Discharge Orders/Prescriptions Prescriptions: Continued Entresto 24-26 mg tablet 1 tab PO BID RF: 0 amantadine HCl 100 MG capsule 100 mg PO DAILY RF: 0 pravastatin 80 MG tablet 80 mg PO QHS RF: 0 pantoprazole 40 MG tablet 40 mg PO DAILY RF: 0 pramipexole 0.25 MG tablet 0.25 mg PO QHS RF: 0 nitroglycerin 0.4 MG tablet, sublingual 0.4 mg sublingual PRN PRN (Reason: CHEST PAIN) RF: 0 fluoxetine 20 MG capsule 60 mg PO DAILY RF: 0 aspirin 81 MG tablet,chewable 81 mg PO DAILY@0800 RF: 0 acetaminophen 500 MG tablet 1,000 mg PO Q6H PRN PRN (Reason: Mild Pain (-08/15)) RF: 0 bisacodyl 10 MG suppository 10 mg RC DAILY PRN PRN (Reason: Constipation) RF: 0 oxycodone 5 MG tablet 5 mg PO Q6H PRN PRN (Reason: Pain Or Fever) RF: 0 insulin aspart U-100 [Novolog Flexpen U-100 Insulin] 100 UNITS/ML insulin pen See Protocol units SC TIDCM RF: 0 sennosides-docusate sodium 1 EACH tablet 2 ea PO BID RF: 0 melatonin 3 MG tablet,disintegrating 3 mg PO QHS RF: 0 tamsulosin 0.4 mg Capsule 0.4 mg PO QHS RF: 0 fluticasone propionate 110 mcg/actuation Hfa Aerosol Inhaler 1 puff INHALATION BID RF: 0 insulin aspart U-100 [Novolog Flexpen U-100 Insulin] 100 unit/mL (3 mL) Insulin Pen 12 unit SUBCUT TID RF: 0 Basaglar KwikPen U-100 Insulin 100 unit/mL (3 mL) Insulin Pen 18 unit SUBCUT QPM RF: 0 Brilinta 90 mg Tablet 90 mg PO BID RF: 0 menthol-zinc oxide 1 APPLIC ointment 1 applic TOPICAL 0600,2200 RF: 0 furosemide 40 mg tablet 40 mg PO BID Qty: 0 RF: 0 carvedilol 25 mg Tablet 25 mg PO BID Qty: 0 RF: 0 potassium chloride 20 mEq tablet,ER particles/crystals 40 meq PO DAILY 90 Days Qty: 90 RF: 0 Referrals / Follow Up: Phillip Lindo MD [Primary Care Provider] - Within 2 Weeks Disposition Disposition (needs filled in before D/C Order can be placed): NonSkilled NH/Intermed Care
[2021-03-17 12:10] LABS: Bedside Glucose 203 mg/dL (70-110)
--- NOTE | 2021-03-17 14:48 | NURSING ---
C pap mask [facility].
== END 2021-03-17 14:48 | disposition intermediate care facility (04) | DRG 291 ==
LOC: ED 09:54 → PCU 09:58
PROVIDERS: Admitting Provider Student in an Organized Health Care Education/Training Program; Emergency Provider Emergency Medicine; PCP Family Medicine; Visit Provider Student in an Organized Health Care Education/Training Program
DX: I11.0 Hypertensive heart disease with heart failure (principal); I50.33 Acute on chronic diastolic (congestive) heart failure; J96.21 Acute and chronic respiratory failure with hypoxia; I25.810 Atherosclerosis of coronary artery bypass graft(s) without angina pectoris; I69.351 Hemiplegia and hemiparesis following cerebral infarction affecting right dominant side; E87.2 Acidosis; Z68.41 Body mass index [BMI] 40.0-44.9, adult; Z20.822 Contact with and (suspected) exposure to COVID-19; J44.9 Chronic obstructive pulmonary disease, unspecified; I25.5 Ischemic cardiomyopathy; I25.10 Atherosclerotic heart disease of native coronary artery without angina pectoris; L89.152 Pressure ulcer of sacral region, stage 2; Z23 Encounter for immunization; E78.5 Hyperlipidemia, unspecified; G25.81 Restless legs syndrome; N40.0 Benign prostatic hyperplasia without lower urinary tract symptoms; R13.10 Dysphagia, unspecified; G47.33 Obstructive sleep apnea (adult) (pediatric); F32.A Depression, unspecified; F41.9 Anxiety disorder, unspecified; E66.01 Morbid (severe) obesity due to excess calories; Z91.19 Patient's noncompliance with other medical treatment and regimen; Z93.3 Colostomy status; Z93.59 Other cystostomy status; Z79.02 Long term (current) use of antithrombotics/antiplatelets; Z79.82 Long term (current) use of aspirin; Z79.4 Long term (current) use of insulin; Z79.899 Other long term (current) drug therapy; I25.2 Old myocardial infarction; Z87.891 Personal history of nicotine dependence; Z95.5 Presence of coronary angioplasty implant and graft
CPT/HCPCS: 36415; 36600; 71045; 80048; 82803; 82962; 83605; 83880; 84484; 85025; 87426; 93005; 94002; 94640; 97162; 97166; 97530; 99285; 99406; G0008; 90686; A4216; J1940; J2405

== ENCOUNTER 2021-04-25 21:14 | Inpatient (IN) | payer MEDICARE, MEDICAID, SELFPAY ==
[2017-02-20 12:18] VITALS: BMI 46.4
[2021-04-25] VITALS (12 sets, daily range): BP systolic 95–128; BP diastolic 55–103; PULSE 85–133; RESP 12–46; TEMP 37.3; O2SAT 93–99; BMI 44.2; BMI 44.1
--- NOTE | 2021-04-25 21:23 | EKG12_ITS ---
Test Reason : SOB Blood Pressure : / mmHG Vent. Rate : 132 BPM Atrial Rate : 132 BPM P-R Int : 000 ms QRS Dur : 106 ms QT Int : 410 ms P-R-T Axes : 000 066 053 degrees QTc Int : [address] & T wave abnormality, consider inferior ischemia Abnormal ECG Confirmed by TYLOR MATTA, JESÚS ([id number]), manager delivery EMMANUEL CONTRERAS ([id number]) on 04/29/2021 1:04:07 P M Referred By: CARYL Confirmed By:MELCHOR SNIDER MD
[2021-04-25 21:32] LABS: Absolute Lymphocyte Count 3.41 X10^3/uL (0.83-4.51); Absolute Neutrophil Count 4.6 X10^3/uL (2.0-7.7); Basophil# 0.07 X10^3/uL; Basophil% 0.8 % (0-1); Eosinophil# 0.29 X10^3/uL; Eosinophils% 3.2 % (0-5); Hematocrit 38.4 % (40-54); Hemoglobin 11.4 g/dL (13.0-16.5); Lymphocyte # 3.41 X10^3/ul (0.83-4.51); Lymphocyte % 37.8 % (19-41); Mean Corp Hgb Conc 29.7 g/dL (32-36); Mean Corpuscular Hgb 26.1 pg (27.0-32.0); Mean Corpuscular Volume 88.1 fL (80-94); Mean Platelet Vol. 11.4 fl (6.2-12.0); Monocyte# 0.58 X10^3/uL; Monocyte% 6.4 % (0-10); NRBC Flagged by Analyzer 0 % (0-5); Neutrophil # 4.61 X10^3/uL (2.7-7.7); Neutrophil % 51.2 % (47-70); Platelet Count 276 K/mm3 (150-450); RBC Distribution Width CV 15.3 % (11.6-14.6); RBC Distribution Width SD 49.2 fl (35.1-43.9); Red Blood Count 4.36 M/mm3 (4.6-6.2)
[2021-04-25] MEDS: Nitroglycerin SL (ED/IMG/CATH) 0.4 MG TABLET SL (21:32)
[2021-04-25] MEDS: Furosemide 40 MG/4 ML Vial IV (21:32)
[2021-04-25 21:35] LABS: Allen Test Positive; Base Excess -1 mmol/L (-2 to +2); Bicarbonate 25.8 mmol/L (22-26); Blood Gas Specimen Type ART; FI02 70; O2 Delivery Device BiPAP; PO2 253 mmHG (75-100); RR 12; SITE L Radial; SO2 100 % (95-99); Total Carbon Dioxide 27 mmol/L
[2021-04-25] MEDS: Captopril 12.5 MG Tablet PO (21:43)
--- NOTE | 2021-04-25 21:45 | RAD_ITS ---
INDICATION: dyspnea EXAMINATION/TECHNIQUE: X-RAY - XR Chest 1 View COMPARISON: 03/15/2021 chest x-ray FINDINGS: LINES/DEVICES: None. Sternotomy wires are present. Left coronary stent suggested. Symmetric normal lung volumes. Bilateral perivascular reticular opacities may represent interstitial edema. Heart is not significantly enlarged. No significant pleural effusion visible. No nodule or mass. No pneumothorax. Osseous structures are within normal limits. RAD/Chest 1 View (Portable) IMPRESSION: 1. Findings suggesting bibasilar interstitial edema. No significant change compared with prior exams 03/15/2021 and 02/18/2021. Electronically Signed: Zeferino Cornell DO at 22:23 EST Tel , Service support ,
[2021-04-25 21:52] LABS: Anion Gap 6 (5-15); BUN 18 mg/dL (7-18); Calcium,Total 8.7 mg/dL (8.5-10.1); Chloride 104 mmol/L (98-107); Creatinine, Serum 1.29 mg/dL (0.70-1.30); EST Glomerular Filtration Rate 58 mL/min (>60); Est Glom Filt Rate - Afr Amer 71 mL/min (>60); Estimated Creatinine Clearance 55.02 ml/min; Glucose 305 mg/dL (74-106); Magnesium 2.1 mg/dL (1.6-2.6); Potassium 4.5 mmol/L (3.5-5.1); Sodium Level 136 mmol/L (136-145); Troponin-I HS 16 pg/mL (3.0-78.0)
[2021-04-25 21:53] LABS: BNP,B-Type NATRIURETIC PEPTIDE 386.7 pg/mL (0-100)
--- NOTE | 2021-04-25 21:57 | EX.ED.DYSGE1 ---
HPI History of Present Illness Chief Complaint: Shortness of Breath Narrative Narrative: Patient is a 70-year-old male with past medical history of congestive heart failure and COPD. Reportedly he was at the skilled nursing this evening when he had sudden onset shortness of breath and increased work of breathing. His pulse ox dropped into the 70s according to the skilled nursing despite being on 5 L of oxygen by nasal cannula and therefore EMS was called. EMS states that the patient had obvious increased work of breathing and tachypnea and therefore they initially placed him on CPAP but he did not seem to respond to this so they switched him to a nonrebreather and did have improvement of his pulse ox. Upon arrival to the ER patient cannot offer further history based on his respiratory distress. 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 angina pectoris Benign prostatic hyperplasia Chronic combined systolic and diastolic CHF (congestive heart failure) COPD (chronic obstructive pulmonary disease) COPD with acute exacerbation CVA (cerebral vascular accident) Depression Diabetes Dysphagia Essential (primary) hypertension GERD (gastroesophageal reflux disease) Heart failure History of non-ST elevation myocardial infarction (NSTEMI) (02/21/19) HTN (hypertension) Hyperlipidemia Intraparenchymal hemorrhage of brain Intraventricular hemorrhage Ischemic cardiomyopathy Morbid obesity Myocardial infarct Neuromuscular dysfunction of bladder Nicotine dependence Obesity Obstructive sleep apnea Osteomyelitis of sacrum Recurrent UTI (urinary tract infection) Reflux esophagitis Restless leg syndrome Right hemiplegia RLS (restless legs syndrome) Sleep apnea Subarachnoid hemorrhage Subdural hematoma Tobacco abuse Traumatic brain injury Type 2 diabetes mellitus Home Medications amantadine HCl 100 mg PO DAILY 04/17/18 [History Last Taken 02/17/21] pantoprazole 40 mg PO DAILY 04/17/18 [History Last Taken 02/17/21] pramipexole 0.25 mg PO QHS 04/17/18 [History Last Taken 02/16/21] pravastatin 80 mg PO QHS 04/17/18 [History Last Taken 02/16/21] fluoxetine 60 mg PO DAILY 02/20/19 [History Last Taken 02/17/21] nitroglycerin 0.4 mg SUBLINGUAL PRN PRN 02/20/19 [History Last Taken Unknown] aspirin 81 mg PO DAILY@0800 02/24/19 [History Last Taken 02/17/21] acetaminophen 1,000 mg PO Q6H PRN PRN tab 03/03/19 [Rx Last Taken Unknown] bisacodyl 10 mg RC DAILY PRN PRN 09/14/19 [History Last Taken Unknown] insulin aspart U-100 [Novolog Flexpen U-100 Insulin] See Protocol SC TIDCM 09/14/19 [History Last Taken Unknown] oxycodone 5 mg PO Q6H PRN PRN 09/14/19 [History Last Taken 02/17/21] sennosides-docusate sodium 2 ea PO BID 01/02/20 [History Last Taken 02/17/21] melatonin 3 mg PO QHS 09/14/20 [History Last Taken 02/16/21] sacubitril 24 mg-valsartan 26 mg tablet 1 tab PO BID 10/10/20 [History Last Taken 02/17/21] Brilinta 90 mg PO BID 02/17/21 [History Last Taken 02/17/21] fluticasone propionate 1 puff INHALATION BID 02/17/21 [History Last Taken 02/17/21] insulin aspart U-100 [Novolog Flexpen U-100 Insulin] 12 unit SUBCUT TID 02/17/21 [History Last Taken 02/17/21] menthol-zinc oxide 1 applic TOPICAL 0600,2200 02/17/21 [History Last Taken Unknown] tamsulosin 0.4 mg PO QHS 02/17/21 [History Last Taken 02/16/21] furosemide 40 mg PO BID #0 tab 02/18/21 [Rx Last Taken Unknown] carvedilol 25 mg PO BID #0 tab 02/20/21 [Rx Last Taken Unknown] potassium chloride 40 meq PO DAILY 90 Days #90 tab 02/20/21 [Rx Last Taken 02/17/21] insulin glargine [Lantus Solostar U-100 Insulin] 18 unit SUBCUT QPM 04/25/21 [History Last Taken Unknown] Allergy/AdvReac Type Severity Reaction Status Date / Time atorvastatin Allergy PT UNSURE Verified 04/25/21 21:27 OF REACTION cilostazol Allergy Hives Verified 04/25/21 21:27 colestipol Allergy Hives Verified 04/25/21 21:27 diltiazem Allergy Hives Verified 04/25/21 21:27 gemfibrozil Allergy Hives Verified 04/25/21 21:27 naproxen [From Naprosyn] Allergy Hives Verified 04/25/21 21:27 niacin Allergy PT UNSURE Verified 04/25/21 21:27 OF REACTION Nitrate Analogues Allergy Hives Verified 04/25/21 21:27 Penicillins Allergy Hives Verified 04/25/21 21:27 pravastatin Allergy NEEDS Verified 04/25/21 21:27 FOLLOW-UP procainamide Allergy Hives Verified 04/25/21 21:27 procaine Allergy NEEDS Verified 04/25/21 21:27 FOLLOW-UP rosuvastatin Allergy Hives Verified 04/25/21 21:27 simvastatin Allergy Hives Verified 04/25/21 21:27 isosorbide AdvReac Severe Unknown Verified 04/25/21 21:27 Family History (Updated 04/25/21 @ 21:[address] Em Flores MD) Brother Heart disease Father Heart disease Alzheimer disease Mother No history of heart disease Surgical History Chronic suprapubic catheter H/O coronary angioplasty H/O coronary artery bypass surgery (2001) History of coronary artery stent placement (09/18/20) History of left heart catheterization (09/17/20) PEG (percutaneous endoscopic gastrostomy) adjustment/replacement/removal Status post ileostomy Status post osteotomy (01/2018) Social History (Updated 04/25/21 @ 21:[address] Em Flores MD) housing: skilled nursing Smoking Status: Former smoker how long ago did patient quit smokin, 1 ppd second hand exposure: Yes alcohol intake: former caffeine: Yes Type: coffee Number of servings: 3 what type of physical activity do you participate in: none ROS ROS ED Review of Systems ROS Unobtainable: other Details: Unable to obtain review of systems secondary to severe respiratory distress EXAM Physical Exam Const Vital Signs: 04/25/21 21:15 04/25/21 21:19 04/25/21 21:22 Temperature 99.1 F 99.1 F Temperature Source Temporal Temporal Pulse Rate 133 H 131 H Respiratory Rate 38 H 36 H Respiratory Effort Short of Breath Respiratory Depth Shallow Respiratory Pattern Tachypnea Blood Pressure 126/94 H 126/94 H Blood Pressure Mean 104 104 Pulse Ox 99 99 Oxygen Delivery Method Bi-pap Bi-pap Bi-pap Fraction of Inspired Oxygen (FIO2) 04/25/21 21:25 04/25/21 21:49 04/25/21 22:17 Temperature 99.1 F Temperature Source Oral Pulse Rate 127 H 102 H 93 Respiratory Rate 46 H 28 H 25 H Respiratory Effort Respiratory Depth Respiratory Pattern Tachypnea Blood Pressure 122/76 H 128/67 H Blood Pressure Mean 91 87 Pulse Ox 98 93 93 Oxygen Delivery Method Bi-pap Bi-pap Fraction of Inspired Oxygen (FIO2) 70 04/25/21 22:49 Temperature Temperature Source Pulse Rate 95 Respiratory Rate 25 H Respiratory Effort Respiratory Depth Respiratory Pattern Blood Pressure 119/55 L Blood Pressure Mean 76 Pulse Ox 95 Oxygen Delivery Method Bi-pap Fraction of Inspired Oxygen (FIO2) Positive well nourished, well developed and obese Constitutional Narrative: Patient is in moderate to severe respiratory distress with tachypnea and accessory muscle use General Appearance ED: well developed Nutritional Appearance: obese HEENT HEENT Narrative: No tongue or lip swelling no oral lesions no airway edema or compromise Eyes PERRL and EOMs intact bilaterally Neck supple Neck Narrative: Positive JVD noted Resp Resp Narrative: Patient is in moderate to severe respiratory distress with tachypnea and accessory muscle use. Breath sounds are diminished throughout with crackles in the bilateral bases. Cardio Rate: other Other Details: Tachycardic rate with regular rhythm. Radial pulses are plus 2 out of 4 bilaterally they are equal and symmetric GI normal to inspection, nondistended, normoactive bowel sounds, non-tender, non-distended and no masses GI Narrative: No voluntary guarding or rigidity no pulsatile mass no fluid wave. Patient has a colostomy in place that is draining brown stool without surrounding secondary soft tissue changes to suggest infection Auscultation: normoactive bowel sounds Palpation: soft Narrative: Chronic indwelling Lane catheter in place Extremity Extremity Narrative: +2 pitting edema to the bilateral lower extremities that is equal and symmetric Neuro Neuro Narrative: Patient is slightly obtunded secondary to his increased work of breathing but overall there are no focal neurologic deficits Psych mental status grossly normal Skin no rashes or lesions noted MDM MDM MDM Narrative Medical decision making narrative: Patient presented to the ER and in acute respiratory distress. He was placed on BiPAP as his exam is most consistent with fluid overload. He was also given sublingual nitro oral captopril and IV Lasix. With the medication and BiPAP his work of breathing improved with a respiratory rate from mid 40s to low 20s. His heart rate also reduced to normal. His x-ray shows changes consistent with vascular congestion. At this time with his need for BiPAP I do not feel it is safe for him to return to the skilled nursing. However the patient is a DNR Comfort Care arrest no intubation and therefore his therapy is maxed with BiPAP. I still feel he should be placed in the hospital secondary to this need. Therefore medicine was contacted and does agree to accept the patient at this time. Lab Data Attestation: I reviewed the patient's lab results. Labs: Laboratory Results - last 24 hr 04/25/21 04/25/21 04/25/21 21:20 21:20 21:20 WBC 9.0 RBC 4.36 L Hgb 11.4 L Hct 38.4 L MCV 88.1 MCH 26.1 L MCHC 29.7 L RDW Std Deviation 49.2 H RDW Coeff of Sherin 15.3 H Plt Count 276 MPV 11.4 Immature Gran % (Auto) 0.600 Neut % (Auto) 51.2 Lymph % (Auto) 37.8 [place] % (Auto) 6.4 Eos % (Auto) 3.2 Baso % (Auto) 0.8 Absolute Neuts (auto) 4.6 Absolute Lymphs (auto) 3.41 Nucleated RBC % 0 Sodium 136 Potassium 4.5 Chloride 104 Carbon Dioxide 26.0 Anion Gap 6 BUN 18 Creatinine 1.29 Estim Creat Clear Calc 55.02 Est GFR (MDRD) Af Amer 71 Est GFR (MDRD) Non-Af 58 L BUN/Creatinine Ratio 14.0 Glucose 305 H Lactic Acid 2.3 H* Calcium 8.7 Magnesium 2.1 Troponin I High Sens 16 B-Natriuretic Peptide 04/25/21 21:20 WBC RBC Hgb Hct MCV MCH MCHC RDW Std Deviation RDW Coeff of Sherin Plt Count MPV Immature Gran % (Auto) Neut % (Auto) Lymph % (Auto) [place] % (Auto) Eos % (Auto) Baso % (Auto) Absolute Neuts (auto) Absolute Lymphs (auto) Nucleated RBC % Sodium Potassium Chloride Carbon Dioxide Anion Gap BUN Creatinine Estim Creat Clear Calc Est GFR (MDRD) Af Amer Est GFR (MDRD) Non-Af BUN/Creatinine Ratio Glucose Lactic Acid Calcium Magnesium Troponin I High Sens B-Natriuretic Peptide 386.7 H ABG Data ABG results: ABG 04/25/21 21:31 Specimen Type ART Sample Site L Radial pH 7.30 L Bicarbonate Actual 25.8 Total CO2 27 Base Excess -1 O2 Saturation 100 H O2 % 70 ABG pCO2 53.0 H ABG pO2 253 H Dejon Test Positive Respiration Rate 12 O2 Delivery Device BiPAP Clinical Comments 23/03 BIPAP Radiography Diagnostic Testing: Clinical Impression(s) from Imaging Studies Chest X-Ray 04/25/21 21:45 IMPRESSION: 1. Findings suggesting bibasilar interstitial edema. No significant change compared with prior exams 03/15/2021 and 02/18/2021. Electronically Signed: Zeferino Cornell DO at 22:23 EST Tel , Service support , Critical Care Time Critical Care Time: Yes Critical care time (excluding procedures): - (Please note critical care time of 33 minutes) Discharge Plan Dx/Rx/DC Orders Clinical Impression: Chronic combined systolic and diastolic CHF (congestive heart failure), Acute and chronic respiratory failure with hypoxia Disposition Disposition: Acute Care Hospital [facility]
[2021-04-25 21:58] LABS: Lactic Acid 2.3 mmol/L (0.4-1.9)
--- NOTE | 2021-04-25 22:04 | ED.RN ---
covid negative. enhanced droplet [place] [id number]
--- NOTE | 2021-04-25 22:49 | PCM.HP.STD ---
HPI - General General Date of Admission: 04/25/21 Date of Service: 04/25/21 Chief Complaint: Dyspnea, hypoxia. HPI Narrative The patient is a 70 y/o M w/ PMHx: Hx EtOH abuse, Chronic anemia, Chronic COPD, Morbid Obesity, Chronic Diastolic CHF, HTN, HLD, CAD s/p CABG and PCI, Ischemic Cardiomyopathy, GERD, Depression and Anxiety, Hx CVA/Intraparenchymal hemorrhage w/ TBI w/ chronic R sided hemiplagia w/ prior PEG/chronic suprapubic catheter, BPH, Hx Tobacco use, RLS, JIM, Frequent recurrent UTI w/ chronic suprapubic catheter, Chronic stage II pressure ulcers, who presents to the [facility] ED on 04/25/21 with history of recent serial admissions most recently discharged 03/17/2021 with acute on chronic CHF exacerbation at that time who now represents from long term facility with significant onset of dyspnea with increased work of breathing and hypoxia at his skilled facility initially in the 70s despite being on 5 L nasal cannula with prompt EMS call with EMS noting significant evidence of respiratory distress placed on CPAP without marked response with transition to a nonrebreather until ED evaluation. Patient was vaccinated against COVID-19. Work-up in the ED included T 99.1, heart rate 133, BP 126/94, respiratory rate 38, 99% with immediate BIPAP placement w/ FiO2 70%--> most recent heart rate 93, BP 120/67, respiratory rate 25, 93% on BiPAP with 70% FiO2, CBC with WC 9, hemoglobin 11.4, platelet 276 without marked shift, ABG with pH 7.30, PCO2 53, PO2 253 initially on BiPAP 23/03, BMP with glucose 305, magnesium 2.1, lactic acid 2.3, troponin high-sensitivity 16, BNP 386.7 which is similar to his prior presentations with CHF exacerbations, rapid Covid antigen negative, chest x-ray with bibasilar interstitial edema, EKG with ST without acute evidence of ischemia. In the ED patient administered Lasix 40 mg IV x 1. [facility] Medical History Acute on chronic systolic (congestive) heart failure Acute pulmonary edema (09/14/20) Acute respiratory failure with hypoxia (09/14/20) Acute respiratory failure with hypoxia and hypercapnia Alcohol abuse Allergic rhinitis Anemia Anxiety Atherosclerosis Atherosclerosis of coronary artery bypass graft without angina pectoris Benign prostatic hyperplasia Chronic combined systolic and diastolic CHF (congestive heart failure) COPD (chronic obstructive pulmonary disease) COPD with acute exacerbation CVA (cerebral vascular accident) Depression Diabetes Dysphagia Essential (primary) hypertension GERD (gastroesophageal reflux disease) Heart failure History of non-ST elevation myocardial infarction (NSTEMI) (02/21/19) HTN (hypertension) Hyperlipidemia Intraparenchymal hemorrhage of brain Intraventricular hemorrhage Ischemic cardiomyopathy Morbid obesity Myocardial infarct Neuromuscular dysfunction of bladder Nicotine dependence Obesity Obstructive sleep apnea Osteomyelitis of sacrum Recurrent UTI (urinary tract infection) Reflux esophagitis Restless leg syndrome Right hemiplegia RLS (restless legs syndrome) Sleep apnea Subarachnoid hemorrhage Subdural hematoma Tobacco abuse Traumatic brain injury Type 2 diabetes mellitus Home Medications amantadine HCl 100 mg PO DAILY 04/17/18 [History Last Taken 02/17/21] pantoprazole 40 mg PO DAILY 04/17/18 [History Last Taken 02/17/21] pramipexole 0.25 mg PO QHS 04/17/18 [History Last Taken 02/16/21] pravastatin 80 mg PO QHS 04/17/18 [History Last Taken 02/16/21] fluoxetine 60 mg PO DAILY 02/20/19 [History Last Taken 02/17/21] nitroglycerin 0.4 mg SUBLINGUAL PRN PRN 02/20/19 [History Last Taken Unknown] aspirin 81 mg PO DAILY@0800 02/24/19 [History Last Taken 02/17/21] acetaminophen 1,000 mg PO Q6H PRN PRN tab 03/03/19 [Rx Last Taken Unknown] bisacodyl 10 mg RC DAILY PRN PRN 09/14/19 [History Last Taken Unknown] insulin aspart U-100 [Novolog Flexpen U-100 Insulin] See Protocol SC TIDCM 09/14/19 [History Last Taken Unknown] oxycodone 5 mg PO Q6H PRN PRN 09/14/19 [History Last Taken 02/17/21] sennosides-docusate sodium 2 ea PO BID 01/02/20 [History Last Taken 02/17/21] melatonin 3 mg PO QHS 09/14/20 [History Last Taken 02/16/21] sacubitril 24 mg-valsartan 26 mg tablet 1 tab PO BID 10/10/20 [History Last Taken 02/17/21] Brilinta 90 mg PO BID 02/17/21 [History Last Taken 02/17/21] fluticasone propionate 1 puff INHALATION BID 02/17/21 [History Last Taken 02/17/21] insulin aspart U-100 [Novolog Flexpen U-100 Insulin] 12 unit SUBCUT TID 02/17/21 [History Last Taken 02/17/21] menthol-zinc oxide 1 applic TOPICAL 0600,2200 02/17/21 [History Last Taken Unknown] tamsulosin 0.4 mg PO QHS 02/17/21 [History Last Taken 02/16/21] furosemide 40 mg PO BID #0 tab 02/18/21 [Rx Last Taken Unknown] carvedilol 25 mg PO BID #0 tab 02/20/21 [Rx Last Taken Unknown] potassium chloride 40 meq PO DAILY 90 Days #90 tab 02/20/21 [Rx Last Taken 02/17/21] insulin glargine [Lantus Solostar U-100 Insulin] 18 unit SUBCUT QPM 04/25/21 [History Last Taken Unknown] Allergy/AdvReac Type Severity Reaction Status Date / Time atorvastatin Allergy PT UNSURE Verified 04/25/21 21:27 OF REACTION cilostazol Allergy Hives Verified 04/25/21 21:27 colestipol Allergy Hives Verified 04/25/21 21:27 diltiazem Allergy Hives Verified 04/25/21 21:27 gemfibrozil Allergy Hives Verified 04/25/21 21:27 naproxen [From Naprosyn] Allergy Hives Verified 04/25/21 21:27 niacin Allergy PT UNSURE Verified 04/25/21 21:27 OF REACTION Nitrate Analogues Allergy Hives Verified 04/25/21 21:27 Penicillins Allergy Hives Verified 04/25/21 21:27 pravastatin Allergy NEEDS Verified 04/25/21 21:27 FOLLOW-UP procainamide Allergy Hives Verified 04/25/21 21:27 procaine Allergy NEEDS Verified 04/25/21 21:27 FOLLOW-UP rosuvastatin Allergy Hives Verified 04/25/21 21:27 simvastatin Allergy Hives Verified 04/25/21 21:27 isosorbide AdvReac Severe Unknown Verified 04/25/21 21:27 Family History (Updated 04/25/21 @ 21:[address] Em Flores MD) Brother Heart disease Father Heart disease Alzheimer disease Mother No history of heart disease Surgical History Chronic suprapubic catheter H/O coronary angioplasty H/O coronary artery bypass surgery (2001) History of coronary artery stent placement (09/18/20) History of left heart catheterization (09/17/20) PEG (percutaneous endoscopic gastrostomy) adjustment/replacement/removal Status post ileostomy Status post osteotomy (01/2018) Social History (Updated 04/25/21 @ 21:[address] Em Flores MD) housing: longterm Smoking Status: Former smoker how long ago did patient quit smokin, 1 ppd second hand exposure: Yes alcohol intake: former caffeine: Yes Type: coffee Number of servings: 3 what type of physical activity do you participate in: none ROS ROS Narrative Unable to obtain ROS secondary to encephalopathy, currently maintained on BiPAP. Vital Signs Vital Signs Vital Signs: 04/25/21 21:15 04/25/21 21:19 04/25/21 21:22 Temperature 99.1 F 99.1 F Temperature Source Temporal Temporal Pulse Rate 133 H 131 H Respiratory Rate 38 H 36 H Respiratory Effort Short of Breath Respiratory Depth Shallow Respiratory Pattern Tachypnea Blood Pressure 126/94 H 126/94 H Blood Pressure Mean 104 104 Pulse Ox 99 99 Oxygen Delivery Method Bi-pap Bi-pap Bi-pap Fraction of Inspired Oxygen (FIO2) 04/25/21 21:25 04/25/21 21:49 04/25/21 22:17 Temperature 99.1 F Temperature Source Oral Pulse Rate 127 H 102 H 93 Respiratory Rate 46 H 28 H 25 H Respiratory Effort Respiratory Depth Respiratory Pattern Tachypnea Blood Pressure 122/76 H 128/67 H Blood Pressure Mean 91 87 Pulse Ox 98 93 93 Oxygen Delivery Method Bi-pap Bi-pap Fraction of Inspired Oxygen (FIO2) 70 Weight Weight: 308 lb 10.354 oz Body Mass Index (BMI) 44.2 Physical Exam Narrative Physical Examination: General: Awakens to stimuli, decreased alertness although improving since initial ED presentation, orientation decreased from baseline given acute presentation, very fatigued upon initial presentation given respiratory compromise, currently on BiPAP, respiratory distress lessening since initial ED presentation. Skin: normal color, turgor, no icterus, cyanosis except excoriation, chronic stasis, intertrigo. HEENT: AT/NC, EOM difficult to assess given current acute presentation, PERRLA, dry MM, BiPAP in place, no carotid bruits or JVD noted; however, thickened neck and referred sounds makes examination difficult. Lungs: Diminished, diffuse crackles bilaterally, greater bases, increased work of breathing and accessory muscle usage noted, improving since initial ED presentation, BiPAP in place. Heart: Tachycardic with regular rhythm; no gallop, rub audible. Abdomen: soft, morbidly obese, NTTP, ND, distant bowel sounds, colostomy in place, suprapubic catheter in place, difficult to assess HSM secondary to morbid obese habitus. Extremities: no cyanosis, clubbing, chronic right-sided hemiplegia status post CVA, mild ankle to distal rodrigues bilateral lower extremity pitting edema. Neurological: Awakens to stimuli, decreased alertness although improving since initial ED presentation, orientation decreased from baseline given acute presentation; cognitive function improving but still not baseline, TBI history as well as CVA with reduced mental capabilities; pupils equally reactive to light and accommodation; cranial nerves difficult to assess given acute presentation, patient with underlying history of chronic right-sided hemiplegia status post CVA, strength severely global decrease secondary to acute presentation concurrently. Psychiatric: affect appears fatigued, respiratory distress lessening, no acute evidence of depressive or anxiety feelings. Results Lab / Micro Data Result Diagrams: 04/25/21 21:20 04/25/21 21:20 Labs: Laboratory Results - last 24 hr 04/25/21 21:20: WBC 9.0, RBC 4.36 L, Hgb 11.4 L, Hct 38.4 L, MCV 88.1, MCH 26.1 L, MCHC 29.7 L, RDW Std Deviation 49.2 H, RDW Coeff of Sherin 15.3 H, Plt Count 276, MPV 11.4, Immature Gran % (Auto) 0.600, Neut % (Auto) 51.2, Lymph % (Auto) 37.8, [place] % (Auto) 6.4, Eos % (Auto) 3.2, Baso % (Auto) 0.8, Absolute Neuts (auto) 4.6, Absolute Lymphs (auto) 3.41, Nucleated RBC % 0 04/25/21 21:20: Sodium 136, Potassium 4.5, Chloride 104, Carbon Dioxide 26.0, Anion Gap 6, BUN 18, Creatinine 1.29, Estim Creat Clear Calc 55.02, Est GFR (MDRD) Af Amer 71, Est GFR (MDRD) Non-Af 58 L, BUN/Creatinine Ratio 14.0, Glucose 305 H, Calcium 8.7, Magnesium 2.1, Troponin I High Sens 16 04/25/21 21:20: Lactic Acid 2.3 H* 04/25/21 21:20: B-Natriuretic Peptide 386.7 H Micro: Microbiology 04/25/21 21:30 Nasal Secretion SARS-CoV-2 Antigen (Rapid) - Final ABG Data ABG results: ABG 04/25/21 21:31 Specimen Type ART Sample Site L Radial pH 7.30 L Bicarbonate Actual 25.8 Total CO2 27 Base Excess -1 O2 Saturation 100 H O2 % 70 ABG pCO2 53.0 H ABG pO2 253 H Dejon Test Positive Respiration Rate 12 O2 Delivery Device BiPAP Clinical Comments 23/03 BIPAP Radiology Impression Chest X-Ray 04/25/21 21:45 IMPRESSION: 1. Findings suggesting bibasilar interstitial edema. No significant change compared with prior exams 03/15/2021 and 02/18/2021. Electronically Signed: Zeferino Cornell DO at 22:23 EST Tel , Service support , Assessment & Plan Assessment/Plan (1) Acute and chronic respiratory failure with hypoxia: (2) Chronic combined systolic and diastolic CHF (congestive heart failure): PLAN: The patient is a 70 y/o M w/ PMHx: Hx EtOH abuse, Chronic anemia, Chronic COPD, Morbid Obesity, Chronic Diastolic CHF, HTN, HLD, CAD s/p CABG and PCI, Ischemic Cardiomyopathy, GERD, Depression and Anxiety, Hx CVA/Intraparenchymal hemorrhage w/ TBI w/ chronic R sided hemiplagia w/ prior PEG/chronic suprapubic catheter, BPH, Hx Tobacco use, RLS, JIM, Frequent recurrent UTI w/ chronic suprapubic catheter, Chronic stage II pressure ulcers, who presents to the [facility] ED on 04/25/21 with history of recent serial admissions most recently discharged 03/17/2021 with acute on chronic CHF exacerbation at that time who now represents from long term facility with significant onset of dyspnea with increased work of breathing and hypoxia at his skilled facility initially in the 70s despite being on 5 L nasal cannula. 1. 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 01/21/2021 echo with normal LV size, LV systolic function normal, EF 55%, stage I diastolic dysfunction thus we will not repeat. Will place BL LE snug gricel wraps. To be cautious will also obtain a procalcitonin and may consider repeat chest x-ray in a.m. following diuresis. If onset notable sputum production will request sputum culture also. 2. Chronic COPD: Continue status as noted above, we will maintain on ATC duonebs, PRN albuterol, HOB, IS parameters. 3. CAD: Status post CABG times 08/2001, PCI 09/2020, will continue aspirin, Brilinta, statin, Entresto, Coreg regimen once oral intake safe with hold parameters as needed. 4. History CVA/intraventricular hemorrhage, TBI: Patient with chronic right-sided hemiplegia with significant debilities, history of PEG tube, chronic suprapubic catheter, chronic decubitus ulcers, will continue offloading as needed, barrier, PT/OT/case management consultations will be necessary once patient appropriate, nutrition will be consulted. Continue aspirin, Brilinta, statin, hypertensive regimen as noted as well as diabetic regimen as noted once oral intake safe. 5. Hypertension: Continue home regimen including Entresto, Coreg once oral intake safe, IV Lasix as noted, PRN hydralazine. 6. Hyperlipidemia: Continue home statin regimen once oral intake safe. 7. Diabetes mellitus type II with hyperglycemia: Hold oral home regimen, continue home long-acting insulin regimen, currently n.p.o. given acute presentation as noted, maintain on every 6 hours accu checks w/ ISS until oral intake appropriate with transition off continuous BiPAP. 8. Anxiety and depression: We will continue patient home fluoxetine regimen once oral intake safe. 9. Morbid Obesity: Weight loss and lifestyle changes will be encouraged, nutrition consulted. 10. JIM: Currently maintained on BiPAP as noted, normally does use BiPAP nightly. 11. Chronic stage II pressure ulcers: Wound continue offloading with frequent positional changes, barrier cream as needed. 12. Chronic anemia: Admission hemoglobin 11.4, baseline 10-11, stable, trend. 13. Restless leg syndrome: We will continue patient home Mirapex regimen once oral intake safe. 14. GERD: We will maintain on IV PPI pending improvement with oral intake, transition to oral PPI once appropriate. 15. DVT prophylaxis: SCD, Lovenox. 16. CODE status: Patient SUSANNAH is his and living will is currently in place. Discussed CODE status at length including difference between FULL code, DNR-CCA and DNR-CC status. Following discussions about the differences in these status, requested DNR-CCA, no intubation status. Advanced Care Planning Face to Face Time: 16 minutes. Charges/Coding Visit Charges Inpatient E&M: 82550 Init Hosp L3 Procedures Hospitalists Procedures: 40122 Advncd Care Plan 30 Min
[2021-04-25 23:26] LABS: Procalcitonin 0.12 ng/mL (0.00-0.09)
--- NOTE | 2021-04-25 23:56 | NURSING ---
PT GIVES RN PERMISSION TO SHARE INFORMATION W/[id number], PETERSON.
[2021-04-26] VITALS (31 sets, daily range): BP systolic 99–145; BP diastolic 51–97; PULSE 66–90; RESP 12–28; TEMP 36.3–37; O2SAT 94–100
[2021-04-26] MEDS: Insulin Lispro 100 UNIT/ML INSULN.PEN SC ×5 (01:00→20:52)
[2021-04-26 01:10] LABS: Bedside Glucose 238 mg/dL (70-110)
[2021-04-26 01:29] LABS: Reflex Lactate? Y
[2021-04-26 02:23] LABS: Lactic Acid 1.4 mmol/L (0.4-1.9)
[2021-04-26 04:17] LABS: Absolute Lymphocyte Count 1.34 X10^3/uL (0.83-4.51); Absolute Neutrophil Count 7.3 X10^3/uL (2.0-7.7); Basophil# 0.05 X10^3/uL; Basophil% 0.5 % (0-1); Eosinophils% 1.1 % (0-5); Hematocrit 31.5 % (40-54); Hemoglobin 9.4 g/dL (13.0-16.5); Lymphocyte # 1.34 X10^3/ul (0.83-4.51); Lymphocyte % 14.1 % (19-41); Mean Corp Hgb Conc 29.8 g/dL (32-36); Mean Corpuscular Volume 87.3 fL (80-94); Mean Platelet Vol. 11.1 fl (6.2-12.0); Monocyte# 0.63 X10^3/uL; Monocyte% 6.6 % (0-10); NRBC Flagged by Analyzer 0 % (0-5); Neutrophil # 7.33 X10^3/uL (2.7-7.7); Neutrophil % 77.3 % (47-70); Platelet Count 215 K/mm3 (150-450); RBC Distribution Width CV 15.5 % (11.6-14.6); RBC Distribution Width SD 49.6 fl (35.1-43.9); Red Blood Count 3.61 M/mm3 (4.6-6.2); White Blood Count 9.5 K/mm3 (4.4-11.0)
[2021-04-26 04:42] LABS: ALB/GLOB Ratio 0.8 RATIO (0.9-2.4); AST(SGOT) 29 U/L (15-37); Alanine Aminotransfer ALT/SGPT 46 U/L (16-61); Alkaline Phosphatase 106 U/L (45-117); Anion Gap 5 (5-15); BUN 20 mg/dL (7-18); BUN/Creat Ratio 17.1 RATIO (10-20); Calcium,Total 8.5 mg/dL (8.5-10.1); Chloride 104 mmol/L (98-107); Creatinine, Serum 1.17 mg/dL (0.70-1.30); EST Glomerular Filtration Rate 65 mL/min (>60); Est Glom Filt Rate - Afr Amer 79 mL/min (>60); Estimated Creatinine Clearance 60.66 ml/min; Globulin 3.8 g/dL (2.2-4.2); Glucose 206 mg/dL (74-106); Potassium 3.9 mmol/L (3.5-5.1); Protein, Total 6.8 g/dL (6.4-8.2); Sodium Level 139 mmol/L (136-145); T4 Free Direct 1.17 ng/dL (0.76-1.46); Thyroid Stim Hormone (TSH) 1.11 uIU/mL (0.358-3.74)
--- NOTE | 2021-04-26 05:55 | RAD_ITS ---
STUDY: X-RAY CHEST REASON FOR EXAM: Male, 70 years old. Dyspnea, cough TECHNIQUE: Single AP portable view of the chest. 2 images COMPARISON: 04/25/2021. 03/15/2021. FINDINGS: There are superimposed monitor leads. Mild increased interstitial pattern in the right base and right mid lung periphery, decreased since previous examination. Improved aeration left lung. There is no demonstrated pleural abnormality. Sternal cerclage wires and vascular clips are present from a prior sternotomy and coronary artery bypass graft procedure (CABG). Normal mediastinum and ita. Normal visualized pulmonary arteries. Normal visualized aortic arch and descending thoracic aorta. The spine and upper abdominal soft tissues are obscured. There is degenerative osteoarthritis of the bilateral shoulders. RAD/Chest 1 View (Portable) IMPRESSION: Suspect underlying chronic interstitial lung disease, component of emphysema. Mild increase in interstitial pattern in the right base, decreased when compared to previous examination. Acute on chronic improving airspace disease may be present. Electronically Signed: Helen Meyer MD at 5:53 EST , Service support ,
[2021-04-26] MEDS: Menthol/Lanolin/Calamine/Znox 113 GM Tube 1 APPLIC TOPICAL ×2 (06:03→21:53)
[2021-04-26 06:15] LABS: Bedside Glucose 183 mg/dL (70-110)
[2021-04-26] MEDS: Ipratropium/Albuterol Sulfate 3 ML AMPUL.NEB INHALATION ×3 (06:57→19:31)
--- NOTE | 2021-04-26 07:08 | EX.PCM.CONCC ---
Assessment & Plan Assessment/Plan (1) Acute and chronic respiratory failure with hypoxia: PLAN: RECOMMENDATIONS: 1. Wean supplemental oxygen to maintain saturations at or above 90%. 2. Continue scheduled bronchodilator therapy. 3. Encourage incentive spirometer use and mobilize patient as tolerated. 4. Continue diuretic regimen as tolerated by hemodynamics and renal function. 5. Additional cardiac optimization per cardiology recommendations. 6. Continue Pap therapy with naps and nightly. 7. Outpatient pulmonary follow-up is recommended, so that baseline PFTs can be obtained. 8. The patient is medically stable for transfer out of the intensive care unit. 9. Given the patient's lack of further ICU needs, will sign off. Please call with any additional questions. IMPRESSIONS: 1. Acute hypoxemic respiratory failure Unclear precipitating etiology. While CHF exacerbation is certainly a possibility, contributions from underlying obstructive lung disease cannot be discounted. Nevertheless, given the rapidity with which the patient improved clinically with IV diuretics and BiPAP, it is certainly most plausible that underlying CHF was the main contributing factor. The patient has been weaned to nasal cannula supplemental oxygen this morning. Recommend continuing baseline cardiac meds including diuretic therapy as tolerated by hemodynamics and renal function. Cardiology consultation is pending. I would recommend that the patient follow-up in the pulmonary medicine clinic after discharge so that formal PFTs can be obtained. In the meantime, it is reasonable to continue bronchodilator therapy while admitted to the hospital. 2. History of chronic tobacco dependency I personally spent 3 minutes discussing the deleterious effects of continued tobacco use with the patient, including modalities which could be utilized to achieve a smoke-free lifestyle. Nicotine replacement therapy can be offered to the patient while admitted to the hospital. Again, I would recommend outpatient pulmonary follow-up. 3. History of obstructive sleep apnea Recommend continuing Pap therapy with naps and nightly. The patient does report compliance with the use of nocturnal CPAP therapy. 4. History of coronary artery disease status post CABG/history of CVA/hypertension/hyperlipidemia/diabetes mellitus/morbid obesity Complicates care, management, recovery and prognosis. Continue home medications as indicated. This note was generated with [employer] software. It may contain incorrect words, spelling, and punctuation that were not noted in checking the note before signing. HPI Consult Data Date of Consult: 04/26/21 HPI Narrative Reason for Consultation: Acute hypoxemic respiratory failure HPI Narrative: The patient is a 70-year-old male, with a history as outlined below, who presented to the emergency department on April 25 via EMS with worsening dyspnea and hypoxemia. The patient was just recently admitted to the hospital and discharged on March 17 after having been treated for an acute on chronic exacerbation of his CHF. The patient was last seen in the cardiology clinic in October 2020. Since that time, he has been admitted to the hospital on several occasions for decompensated heart failure. The patient has a known history of coronary artery disease status post CABG in 2001. His last surface echocardiogram from January 2021 demonstrated an ejection fraction of 55% and stage I diastolic dysfunction. The patient does have a prolonged smoking history and continues to smoke cigarettes daily. Despite the aforementioned, he has never been formally evaluated with pulmonary function studies. He denies utilizing supplemental oxygen at his baseline. On presentation to the emergency department, the patient was noted to be afebrile and hemodynamically stable. He was, nevertheless tachycardic and tachypneic. The patient was immediately placed on BiPAP. Laboratory evaluation revealed no evidence of a leukocytosis. Chemistry profile was notable for a creatinine of 1.29 with a lactate of 2.3. ABG revealed a pH of 7.3 with a PCO2 of 53 and PO2 of 253. BNP was mildly elevated at 387. Chest imaging revealed findings concerning for interstitial edema. The patient was continued on BiPAP and received IV Lasix. He was subsequently transferred to the medical intensive care unit for further management. Although the patient was maintained on noninvasive positive pressure ventilatory support overnight, he was able to be successfully weaned to nasal cannula supplemental oxygen at 2 L/min this morning. [facility] Medical History Acute on chronic systolic (congestive) heart failure Acute pulmonary edema (09/14/20) Acute respiratory failure with hypoxia (09/14/20) Acute respiratory failure with hypoxia and hypercapnia Alcohol abuse Allergic rhinitis Anemia Anxiety Atherosclerosis Atherosclerosis of coronary artery bypass graft without angina pectoris Benign prostatic hyperplasia Chronic combined systolic and diastolic CHF (congestive heart failure) COPD (chronic obstructive pulmonary disease) COPD with acute exacerbation CVA (cerebral vascular accident) Depression Diabetes Dysphagia Essential (primary) hypertension GERD (gastroesophageal reflux disease) Heart failure History of non-ST elevation myocardial infarction (NSTEMI) (02/21/19) HTN (hypertension) Hyperlipidemia Intraparenchymal hemorrhage of brain Intraventricular hemorrhage Ischemic cardiomyopathy Morbid obesity Myocardial infarct Neuromuscular dysfunction of bladder Nicotine dependence Obesity Obstructive sleep apnea Osteomyelitis of sacrum Recurrent UTI (urinary tract infection) Reflux esophagitis Restless leg syndrome Right hemiplegia RLS (restless legs syndrome) Sleep apnea Subarachnoid hemorrhage Subdural hematoma Tobacco abuse Traumatic brain injury Type 2 diabetes mellitus Home Medications amantadine HCl 100 mg PO DAILY 04/17/18 [History Last Taken 02/17/21] pantoprazole 40 mg PO DAILY 04/17/18 [History Last Taken 02/17/21] pramipexole 0.25 mg PO QHS 04/17/18 [History Last Taken 02/16/21] pravastatin 80 mg PO QHS 04/17/18 [History Last Taken 02/16/21] fluoxetine 60 mg PO DAILY 02/20/19 [History Last Taken 02/17/21] nitroglycerin 0.4 mg SUBLINGUAL PRN PRN 02/20/19 [History Last Taken Unknown] aspirin 81 mg PO DAILY@0800 02/24/19 [History Last Taken 02/17/21] acetaminophen 1,000 mg PO Q6H PRN PRN tab 03/03/19 [Rx Last Taken Unknown] bisacodyl 10 mg RC DAILY PRN PRN 09/14/19 [History Last Taken Unknown] insulin aspart U-100 [Novolog Flexpen U-100 Insulin] See Protocol SC TIDCM 09/14/19 [History Last Taken Unknown] oxycodone 5 mg PO Q6H PRN PRN 09/14/19 [History Last Taken 02/17/21] sennosides-docusate sodium 2 ea PO BID 01/02/20 [History Last Taken 02/17/21] melatonin 3 mg PO QHS 09/14/20 [History Last Taken 02/16/21] sacubitril 24 mg-valsartan 26 mg tablet 1 tab PO BID 10/10/20 [History Last Taken 02/17/21] Brilinta 90 mg PO BID 02/17/21 [History Last Taken 02/17/21] fluticasone propionate 1 puff INHALATION BID 02/17/21 [History Last Taken 02/17/21] insulin aspart U-100 [Novolog Flexpen U-100 Insulin] 12 unit SUBCUT TID 02/17/21 [History Last Taken 02/17/21] menthol-zinc oxide 1 applic TOPICAL 0600,2200 02/17/21 [History Last Taken Unknown] tamsulosin 0.4 mg PO QHS 02/17/21 [History Last Taken 02/16/21] furosemide 40 mg PO BID #0 tab 02/18/21 [Rx Last Taken Unknown] carvedilol 25 mg PO BID #0 tab 02/20/21 [Rx Last Taken Unknown] potassium chloride 40 meq PO DAILY 90 Days #90 tab 02/20/21 [Rx Last Taken 02/17/21] insulin glargine [Lantus Solostar U-100 Insulin] 18 unit SUBCUT QPM 04/25/21 [History Last Taken Unknown] Allergy/AdvReac Type Severity Reaction Status Date / Time atorvastatin Allergy PT UNSURE Verified 04/25/21 21:27 OF REACTION cilostazol Allergy Hives Verified 04/25/21 21:27 colestipol Allergy Hives Verified 04/25/21 21:27 diltiazem Allergy Hives Verified 04/25/21 21:27 gemfibrozil Allergy Hives Verified 04/25/21 21:27 naproxen [From Naprosyn] Allergy Hives Verified 04/25/21 21:27 niacin Allergy PT UNSURE Verified 04/25/21 21:27 OF REACTION Nitrate Analogues Allergy Hives Verified 04/25/21 21:27 Penicillins Allergy Hives Verified 04/25/21 21:27 pravastatin Allergy NEEDS Verified 04/25/21 21:27 FOLLOW-UP procainamide Allergy Hives Verified 04/25/21 21:27 procaine Allergy NEEDS Verified 04/25/21 21:27 FOLLOW-UP rosuvastatin Allergy Hives Verified 04/25/21 21:27 simvastatin Allergy Hives Verified 04/25/21 21:27 isosorbide AdvReac Severe Unknown Verified 04/25/21 21:27 Family History Brother Heart disease Father Heart disease Alzheimer disease Mother No history of heart disease Surgical History Chronic suprapubic catheter H/O coronary angioplasty H/O coronary artery bypass surgery (2001) History of coronary artery stent placement (09/18/20) History of left heart catheterization (09/17/20) PEG (percutaneous endoscopic gastrostomy) adjustment/replacement/removal Status post ileostomy Status post osteotomy (01/2018) Social History housing: care home Smoking Status: Former smoker how long ago did patient quit smokin, 1 ppd second hand exposure: Yes alcohol intake: former caffeine: Yes Type: coffee Number of servings: 3 what type of physical activity do you participate in: none ROS Constitutional Constitutional: Denies chills, fatigue or headache(s) Eyes Eyes: Denies blurry vision or change in vision ENT HEENT: Denies dizziness, headache(s), nasal congestion or nasal discharge Cardiovascular Cardiovascular: Reports dyspnea; Denies chest pain Respiratory/Chest Respiratory/Chest: Reports cough and dyspnea; Denies chest tightness Gastrointestinal Gastrointestinal: Denies abdominal pain, diarrhea, nausea or vomiting Genitourinary Genitourinary: Denies difficulty urinating Musculoskeletal Musculoskeletal: Denies arthralgias, back pain or joint pain Integumentary Integumentary: Denies lesions, rash or skin ulcer Neurologic Neurologic: Denies abnormal gait or abnormal speech Psychiatric Psychiatric: Denies anxiety or depression Endocrine Endocrinology: Denies fatigue or polydipsia Hematologic/Lymphatic Hematologic/Lymphatic: Denies easy bleeding or easy bruising Physical Exam Const alert, oriented x3 and no apparent distress General Appearance: cooperative Nutritional Appearance: morbidly obese HEENT normocephalic, head/scalp atraumatic and moist oral mucous membranes Eyes PERRL, EOMs intact bilaterally and conjunctivae normal Neck supple General: trachea midline Chest inspection of chest normal Resp normal respiratory effort and no use of accessory muscles Auscultation: diminished lung sounds Cardio regular rate and regular rhythm GI normal to inspection, nondistended, normoactive bowel sounds Extremity no clubbing, cyanosis or edema Skin no rashes or lesions noted Neuro CN's II-XII intact bilaterally, moves all extremities and no focal motor deficits Psych cooperative and affect normal Lab / Micro Data Result Diagrams: 04/26/21 04:01 04/26/21 04:01 Labs: Laboratory Results - last 24 hr 04/25/21 21:20: WBC 9.0, RBC 4.36 L, Hgb 11.4 L, Hct 38.4 L, MCV 88.1, MCH 26.1 L, MCHC 29.7 L, RDW Std Deviation 49.2 H, RDW Coeff of Sherin 15.3 H, Plt Count 276, MPV 11.4, Immature Gran % (Auto) 0.600, Neut % (Auto) 51.2, Lymph % (Auto) 37.8, Scott % (Auto) 6.4, Eos % (Auto) 3.2, Baso % (Auto) 0.8, Absolute Neuts (auto) 4.6, Absolute Lymphs (auto) 3.41, Nucleated RBC % 0 04/25/21 21:20: Sodium 136, Potassium 4.5, Chloride 104, Carbon Dioxide 26.0, Anion Gap 6, BUN 18, Creatinine 1.29, Estim Creat Clear Calc 55.02, Est GFR (MDRD) Af Amer 71, Est GFR (MDRD) Non-Af 58 L, BUN/Creatinine Ratio 14.0, Glucose 305 H, Calcium 8.7, Magnesium 2.1, Troponin I High Sens 16 04/25/21 21:20: Lactic Acid 2.3 H* 04/25/21 21:20: B-Natriuretic Peptide 386.7 H 04/25/21 21:20: Procalcitonin 0.12 H 04/26/21 01:00: POC Glucose 238 H 04/26/21 01:50: Lactic Acid 1.4 04/26/21 04:01: WBC 9.5, RBC 3.61 L, Hgb 9.4 L, Hct 31.5 L, MCV 87.3, MCH 26.0 L, MCHC 29.8 L, RDW Std Deviation 49.6 H, RDW Coeff of Sherin 15.5 H, Plt Count 215, MPV 11.1, Immature Gran % (Auto) 0.400, Neut % (Auto) 77.3 H, Lymph % (Auto) 14.1 L, Scott % (Auto) 6.6, Eos % (Auto) 1.1, Baso % (Auto) 0.5, Absolute Neuts (auto) 7.3, Absolute Lymphs (auto) 1.34, Nucleated RBC % 0 04/26/21 04:01: Sodium 139, Potassium 3.9, Chloride 104, Carbon Dioxide 30.0, Anion Gap 5, BUN 20 H, Creatinine 1.17, Estim Creat Clear Calc 60.66, Est GFR (MDRD) Af Amer 79, Est GFR (MDRD) Non-Af 65, BUN/Creatinine Ratio 17.1, Glucose 206 H, Calcium 8.5, Total Bilirubin 0.30, AST 29, ALT 46, Alkaline Phosphatase 106, Total Protein 6.8, Albumin 3.0 L, Globulin 3.8, Albumin/Globulin Ratio 0.8 L, TSH 1.11, Free T4 1.17 04/26/21 06:00: POC Glucose 183 H Micro: Microbiology 04/25/21 22:58 Mucosa - Nose Respiratory Panel (PCR) - Final 04/25/21 21:30 Nasal Secretion SARS-CoV-2 Antigen (Rapid) - Final ABG Data ABG results: ABG 04/25/21 21:31 Specimen Type ART Sample Site L Radial pH 7.30 L Bicarbonate Actual 25.8 Total CO2 27 Base Excess -1 O2 Saturation 100 H O2 % 70 ABG pCO2 53.0 H ABG pO2 253 H Dejon Test Positive Respiration Rate 12 O2 Delivery Device BiPAP Clinical Comments 23/03 BIPAP Radiology Impression Chest X-Ray 04/25/21 21:45 IMPRESSION: 1. Findings suggesting bibasilar interstitial edema. No significant change compared with prior exams 03/15/2021 and 02/18/2021. Electronically Signed: Zeferino Cornell DO at 22:23 EST Tel , Service support , Chest X-Ray 04/26/21 05:55 IMPRESSION: Suspect underlying chronic interstitial lung disease, component of emphysema. Mild increase in interstitial pattern in the right base, decreased when compared to previous examination. Acute on chronic improving airspace disease may be present. Electronically Signed: Helen Meyer MD at 5:53 EST , Service support , Charges/Coding Visit Charges Inpatient E&M: 96648 Init Hosp L3 Behavior Interventions Behavior Intervention: 08376 Smoking Cessation 3-10 min
[2021-04-26] MEDS: Glucerna Shake 120 ML LIQUID PO (08:12)
[2021-04-26] MEDS: Aspirin 81 MG TAB.CHEW PO (08:13)
[2021-04-26 08:32] LABS: Troponin-I HS 50 pg/mL (3.0-78.0)
[2021-04-26] MEDS: Carvedilol 25 MG Tablet PO ×2 (09:41→21:00)
[2021-04-26] MEDS: SACUBITRIL/VALSARTAN 24/26 MG TABLET 1 EACH PO ×2 (09:41→21:53)
[2021-04-26] MEDS: FLUoxetine 20 MG Capsule 60 MG PO (09:41)
[2021-04-26] MEDS: TICAGRELOR 90 MG TABLET PO ×2 (09:41→20:54)
[2021-04-26] MEDS: Enoxaparin 40 MG/0.4 ML Syringe SC ×2 (09:42→20:55)
[2021-04-26] MEDS: Amantadine 100 MG Capsule PO (09:42)
[2021-04-26] MEDS: Potassium Chloride Oral Tablet 20 MEQ 40 MEQ PO (09:42)
[2021-04-26] MEDS: Senna/Docusate Sodium 1 Tablet PO ×2 (09:42→21:00)
[2021-04-26] MEDS: Furosemide 40 MG/4 ML Vial IV ×2 (09:42→17:04)
[2021-04-26] MEDS: Pantoprazole Sodium 40 MG Tablet PO ×2 (10:11→21:02)
--- NOTE | 2021-04-26 10:20 | PN.HOSP_ITS ---
Subjective Subjective Breathing better. Weaned down to nasal canula. Objective Data Objective Data Vital Signs: Vital Signs Temp Pulse Resp BP Pulse Ox 36.3 C L 89 27 H 140/64 H 99 04/26/21 08:00 04/26/21 10:00 04/26/21 10:00 04/26/21 10:00 04/26/21 10:00 Oxygen Flow Rate (L/min) 2 Oxygen Delivery Method Room Air Weight: 139.4 kg Body Mass Index (BMI) 44.1 Intake & Output: Intake and Output for Last 24 Hours 04/24/21 04/25/21 04/26/21 23:59 23:59 23:59 Intake Total 0 / 0 Output Total 1800 / 1800 Balance -1800 / -1800 Lab / Micro Data Result Diagrams: 04/26/21 04:01 04/26/21 04:01 Labs: Laboratory Results - last 24 hr 04/25/21 21:20: WBC 9.0, RBC 4.36 L, Hgb 11.4 L, Hct 38.4 L, MCV 88.1, MCH 26.1 L, MCHC 29.7 L, RDW Std Deviation 49.2 H, RDW Coeff of Sherin 15.3 H, Plt Count 276, MPV 11.4, Immature Gran % (Auto) 0.600, Neut % (Auto) 51.2, Lymph % (Auto) 37.8, [place] % (Auto) 6.4, Eos % (Auto) 3.2, Baso % (Auto) 0.8, Absolute Neuts (auto) 4.6, Absolute Lymphs (auto) 3.41, Nucleated RBC % 0 04/25/21 21:20: Sodium 136, Potassium 4.5, Chloride 104, Carbon Dioxide 26.0, Anion Gap 6, BUN 18, Creatinine 1.29, Estim Creat Clear Calc 55.02, Est GFR (MDRD) Af Amer 71, Est GFR (MDRD) Non-Af 58 L, BUN/Creatinine Ratio 14.0, Glucose 305 H, Calcium 8.7, Magnesium 2.1, Troponin I High Sens 16 04/25/21 21:20: Lactic Acid 2.3 H* 04/25/21 21:20: B-Natriuretic Peptide 386.7 H 04/25/21 21:20: Procalcitonin 0.12 H 04/26/21 01:00: POC Glucose 238 H 04/26/21 01:50: Lactic Acid 1.4 04/26/21 04:01: WBC 9.5, RBC 3.61 L, Hgb 9.4 L, Hct 31.5 L, MCV 87.3, MCH 26.0 L , MCHC 29.8 L, RDW Std Deviation 49.6 H, RDW Coeff of Sherin 15.5 H, Plt Count 215, MPV 11.1, Immature Gran % (Auto) 0.400, Neut % (Auto) 77.3 H, Lymph % (Auto) 14.1 L, [place] % (Auto) 6.6, Eos % (Auto) 1.1, Baso % (Auto) 0.5, Absolute Neuts (auto) 7.3, Absolute Lymphs (auto) 1.34, Nucleated RBC % 0 04/26/21 04:01: Sodium 139, Potassium 3.9, Chloride 104, Carbon Dioxide 30.0, Anion Gap 5, BUN 20 H, Creatinine 1.17, Estim Creat Clear Calc 60.66, Est GFR (MDRD) Af Amer 79, Est GFR (MDRD) Non-Af 65, BUN/Creatinine Ratio 17.1, Glucose 206 H, Calcium 8.5, Total Bilirubin 0.30, AST 29, ALT 46, Alkaline Phosphatase 106, Total Protein 6.8, Albumin 3.0 L, Globulin 3.8, Albumin/Globulin Ratio 0.8 L, TSH 1.11, Free T4 1.17 04/26/21 06:00: POC Glucose 183 H 04/26/21 08:10: Troponin I High Sens 50 Micro: Microbiology 04/25/21 22:58 Mucosa - Nose Respiratory Panel (PCR) - Final 04/25/21 21:30 Nasal Secretion SARS-CoV-2 Antigen (Rapid) - Final ABG Data ABG results: ABG 04/25/21 21:31 Specimen Type ART Sample Site L Radial pH 7.30 L Bicarbonate Actual 25.8 Total CO2 27 Base Excess -1 O2 Saturation 100 H O2 % 70 ABG pCO2 53.0 H ABG pO2 253 H Dejon Test Positive Respiration Rate 12 O2 Delivery Device BiPAP Clinical Comments 23/03 BIPAP Radiography Diagnostic Testing: Radiology Impression Chest X-Ray 04/25/21 21:45 IMPRESSION: 1. Findings suggesting bibasilar interstitial edema. No significant change compared with prior exams 03/15/2021 and 02/18/2021. Electronically Signed: Zeferino Cornell DO at 22:23 EST Tel , Service support , Chest X-Ray 04/26/21 05:55 IMPRESSION: Suspect underlying chronic interstitial lung disease, component of emphysema. Mild increase in interstitial pattern in the right base, decreased when compared to previous examination. Acute on chronic improving airspace disease may be present. Electronically Signed: Helen Meyer MD at 5:53 EST , Service support , Physical Exam Const alert and no apparent distress HEENT head/scalp atraumatic and moist oral mucous membranes Head and Scalp: normocephalic Resp normal respiratory effort, no retractions, no use of accessory muscles and clear to auscultation bilaterally Cardio regular rate, regular rhythm, S1 normal heart sound and S2 normal heart sound GI normal to inspection, nondistended, normoactive bowel sounds, soft to palpation, non-tender and non-distended GI Narrative: colostomy. SPC in place. Extremity normal to inspection Neuro Sensorium / Orientation: awake and alert Assessment & Plan Assessment/Plan (1) Acute and chronic respiratory failure with hypoxia: (2) Chronic combined systolic and diastolic CHF (congestive heart failure): PLAN: 1. Acute HFpEF * EF 55% on echo from 01/21/2021 * continue IV furosemide * continue carvedilol * concern for dietary compliance given frequency of hospitalizations. Consult nutrition 2. Acute hypoxic respiratory failure * 2/2 CHF and underlying COPD * improved * off BiPAP * continue to wean oxygen as able 3. Encephalopathy * ruled out 4. H/O CVA * stable 5. DM2 * fair control * continue glargine and SSI 6. VTE prophylaxis: enoxaparin Charges/Coding Visit Charges Inpatient E&M: 92676 Subs Hosp L2
--- NOTE | 2021-04-26 12:06 | WOUNDNOTE ---
Colostomy appliance removed d/t flange loosening off skin. stoma is pink and moist and sits slightly above the skin level. there was a small amount of thick brown stool in the appliance. patient had some dry stool to the peristomal skin that was removed with warm water. peristomal skin is intact. after cleansing the skin. pat area dry and applied a new 2 piece flat [place] appliance with a small amount of stoma paste. Pt tolerated well.
--- NOTE | 2021-04-26 12:08 | WOUNDNOTE ---
wound photo: right hand/forearm
[2021-04-26 12:31] LABS: Bedside Glucose 218 mg/dL (70-110)
--- NOTE | 2021-04-26 13:56 | CASEMGMT ---
Social Work SW met with pt and introduced self and role of SW. Pt stating he is currently at [facility] and plans to return there upon discharge. Phone call to Becca from [facility] and pt is a [facility] resident and can return to [facility] when medically ready. Green Sheet placed on pt chart in event he is discharged over the weekend. Plan: [facility], intermediate level of care. When medically ready KANDACE Smith
--- NOTE | 2021-04-26 15:03 | PCM.CONS.C ---
Assessment & Plan Assessment/Plan (1) Acute and chronic respiratory failure with hypoxia: PLAN: This could be due to a combination of COPD and CHF. Agree with continuing IV Lasix and also treatment for COPD at least for another day. Since patient had complex bifurcation stenting to the distal left main and his RCA is occluded, it is reasonable to consider in-stent restenosis and unstable angina as a cause for patient's shortness of breath as well. It will be reasonable to check another echo. If the EF is decreased or if the patient continues to have shortness of breath despite being euvolemic without evidence of bronchospasm then coronary angiography can also be considered. Stress test may not be ideal as restenosis in the left main location with an occluded RCA may result in balanced ischemia on nuclear images. (2) H/O coronary artery bypass surgery: (3) History of coronary artery stent placement: HPI Consult Data Date of Consult: 04/26/21 HPI Narrative HPI Narrative: FABY GARCIA, is a 70 M who presents with shortness of breath. He was treated for both decompensated heart failure and COPD exacerbation and has noticed some improvement in symptoms. This afternoon he still had some shortness of breath. Patient has history of coronary artery disease status post CABG x3. Last angiogram in September of this year revealed complete occlusion of 3 out of 3 bypass grafts. His RCA was completely occluded. He had stenoses in the distal left main, LAD and circumflex as well. He was transferred to [facility] and had PCI to the LAD, circumflex and distal left main. It appears that he had bifurcation stenting at the distal left main location with mini crush technique. Kissing balloon inflation was done as well. In September his EF was decreased. Follow-up echo revealed preserved EF. Patient states that prior to the PCI also his main symptom was shortness of breath. He does not remember having chest pain. Review of the cardiology consult from that admission does mention chest discomfort but noted shortness of breath to be the predominant symptom. Patient's angiogram and the PCI report were reviewed. Review of systems: All systems reviewed. All else is negative except that in [facility] Medical History Acute on chronic systolic (congestive) heart failure Acute pulmonary edema (09/14/20) Acute respiratory failure with hypoxia (09/14/20) Acute respiratory failure with hypoxia and hypercapnia Alcohol abuse Allergic rhinitis Anemia Anxiety Atherosclerosis Atherosclerosis of coronary artery bypass graft without angina pectoris Benign prostatic hyperplasia Chronic combined systolic and diastolic CHF (congestive heart failure) COPD (chronic obstructive pulmonary disease) COPD with acute exacerbation CVA (cerebral vascular accident) Depression Diabetes Dysphagia Essential (primary) hypertension GERD (gastroesophageal reflux disease) Heart failure History of non-ST elevation myocardial infarction (NSTEMI) (02/21/19) HTN (hypertension) Hyperlipidemia Intraparenchymal hemorrhage of brain Intraventricular hemorrhage Ischemic cardiomyopathy Morbid obesity Myocardial infarct Neuromuscular dysfunction of bladder Nicotine dependence Obesity Obstructive sleep apnea Osteomyelitis of sacrum Recurrent UTI (urinary tract infection) Reflux esophagitis Restless leg syndrome Right hemiplegia RLS (restless legs syndrome) Sleep apnea Subarachnoid hemorrhage Subdural hematoma Tobacco abuse Traumatic brain injury Type 2 diabetes mellitus Home Medications amantadine HCl 100 mg PO DAILY 04/17/18 [History Last Taken 02/17/21] pantoprazole 40 mg PO DAILY 04/17/18 [History Last Taken 02/17/21] pramipexole 0.25 mg PO QHS 04/17/18 [History Last Taken 02/16/21] pravastatin 80 mg PO QHS 04/17/18 [History Last Taken 02/16/21] fluoxetine 60 mg PO DAILY 02/20/19 [History Last Taken 02/17/21] nitroglycerin 0.4 mg SUBLINGUAL PRN PRN 02/20/19 [History Last Taken Unknown] aspirin 81 mg PO DAILY@0800 02/24/19 [History Last Taken 02/17/21] acetaminophen 1,000 mg PO Q6H PRN PRN tab 03/03/19 [Rx Last Taken Unknown] bisacodyl 10 mg RC DAILY PRN PRN 09/14/19 [History Last Taken Unknown] insulin aspart U-100 [Novolog Flexpen U-100 Insulin] See Protocol SC TIDCM 09/14/19 [History Last Taken Unknown] oxycodone 5 mg PO Q6H PRN PRN 09/14/19 [History Last Taken 02/17/21] sennosides-docusate sodium 2 ea PO BID 01/02/20 [History Last Taken 02/17/21] melatonin 3 mg PO QHS 09/14/20 [History Last Taken 02/16/21] sacubitril 24 mg-valsartan 26 mg tablet 1 tab PO BID 10/10/20 [History Last Taken 02/17/21] Brilinta 90 mg PO BID 02/17/21 [History Last Taken 02/17/21] fluticasone propionate 1 puff INHALATION BID 02/17/21 [History Last Taken 02/17/21] insulin aspart U-100 [Novolog Flexpen U-100 Insulin] 12 unit SUBCUT TID 02/17/21 [History Last Taken 02/17/21] menthol-zinc oxide 1 applic TOPICAL 0600,2200 02/17/21 [History Last Taken Unknown] tamsulosin 0.4 mg PO QHS 02/17/21 [History Last Taken 02/16/21] furosemide 40 mg PO BID #0 tab 02/18/21 [Rx Last Taken Unknown] carvedilol 25 mg PO BID #0 tab 02/20/21 [Rx Last Taken Unknown] potassium chloride 40 meq PO DAILY 90 Days #90 tab 02/20/21 [Rx Last Taken 02/17/21] insulin glargine [Lantus Solostar U-100 Insulin] 18 unit SUBCUT QPM 04/25/21 [History Last Taken Unknown] Allergy/AdvReac Type Severity Reaction Status Date / Time atorvastatin Allergy PT UNSURE Verified 04/25/21 21:27 OF REACTION cilostazol Allergy Hives Verified 04/25/21 21:27 colestipol Allergy Hives Verified 04/25/21 21:27 diltiazem Allergy Hives Verified 04/25/21 21:27 gemfibrozil Allergy Hives Verified 04/25/21 21:27 naproxen [From Naprosyn] Allergy Hives Verified 04/25/21 21:27 niacin Allergy PT UNSURE Verified 04/25/21 21:27 OF REACTION Nitrate Analogues Allergy Hives Verified 04/25/21 21:27 Penicillins Allergy Hives Verified 04/25/21 21:27 pravastatin Allergy NEEDS Verified 04/25/21 21:27 FOLLOW-UP procainamide Allergy Hives Verified 04/25/21 21:27 procaine Allergy NEEDS Verified 04/25/21 21:27 FOLLOW-UP rosuvastatin Allergy Hives Verified 04/25/21 21:27 simvastatin Allergy Hives Verified 04/25/21 21:27 isosorbide AdvReac Severe Unknown Verified 04/25/21 21:27 Family History Brother Heart disease Father Heart disease Alzheimer disease Mother No history of heart disease Surgical History Chronic suprapubic catheter H/O coronary angioplasty H/O coronary artery bypass surgery (2001) History of coronary artery stent placement (09/18/20) History of left heart catheterization (09/17/20) PEG (percutaneous endoscopic gastrostomy) adjustment/replacement/removal Status post ileostomy Status post osteotomy (01/2018) Social History housing: long-term Smoking Status: Former smoker how long ago did patient quit smokin, 1 ppd second hand exposure: Yes alcohol intake: former caffeine: Yes Type: coffee Number of servings: 3 what type of physical activity do you participate in: none Physical Exam Const alert and oriented x3 Orientation / Consciousness: awake HEENT normocephalic Eyes no scleral icterus Neck supple Chest inspection of chest normal Resp clear to auscultation bilaterally Cardio regular rate and regular rhythm Extremity General Extremity: edema bilateral lower extremity Details: trace Skin no rashes or lesions noted Neuro oriented x3 Psych mental status grossly normal Risk Stratification Risk Stratification Applicable: No Charges/Coding Visit Charges Inpatient E&M: 08973 Init Hosp L2 Objective Data Vital Signs: Vital Signs Temp Pulse Resp BP Pulse Ox 98.6 F 85 27 H 123/64 H 94 04/26/21 14:00 04/26/21 14:00 04/26/21 14:00 04/26/21 14:00 04/26/21 14:00 Oxygen Flow Rate (L/min) 2 Oxygen Delivery Method Room Air Weight: 307 lb 5.19 oz Body Mass Index (BMI) 44.1 Intake & Output: Intake and Output for Last 24 Hours 04/24/21 04/25/21 04/26/21 23:59 23:59 23:59 Intake Total 320 / 320 Output Total 2800 / 2800 Balance -2480 / -2480 Lab / Micro Data Result Diagrams: 04/26/21 04:01 04/26/21 04:01 Labs: Laboratory Results - last 24 hr 04/25/21 21:20: WBC 9.0, RBC 4.36 L, Hgb 11.4 L, Hct 38.4 L, MCV 88.1, MCH 26.1 L, MCHC 29.7 L, RDW Std Deviation 49.2 H, RDW Coeff of Sherin 15.3 H, Plt Count 276, MPV 11.4, Immature Gran % (Auto) 0.600, Neut % (Auto) 51.2, Lymph % (Auto) 37.8, [place] % (Auto) 6.4, Eos % (Auto) 3.2, Baso % (Auto) 0.8, Absolute Neuts (auto) 4.6, Absolute Lymphs (auto) 3.41, Nucleated RBC % 0 04/25/21 21:20: Sodium 136, Potassium 4.5, Chloride 104, Carbon Dioxide 26.0, Anion Gap 6, BUN 18, Creatinine 1.29, Estim Creat Clear Calc 55.02, Est GFR (MDRD) Af Amer 71, Est GFR (MDRD) Non-Af 58 L, BUN/Creatinine Ratio 14.0, Glucose 305 H, Calcium 8.7, Magnesium 2.1, Troponin I High Sens 16 04/25/21 21:20: Lactic Acid 2.3 H* 04/25/21 21:20: B-Natriuretic Peptide 386.7 H 04/25/21 21:20: Procalcitonin 0.12 H 04/26/21 01:00: POC Glucose 238 H 04/26/21 01:50: Lactic Acid 1.4 04/26/21 04:01: WBC 9.5, RBC 3.61 L, Hgb 9.4 L, Hct 31.5 L, MCV 87.3, MCH 26.0 L, MCHC 29.8 L, RDW Std Deviation 49.6 H, RDW Coeff of Sherin 15.5 H, Plt Count 215, MPV 11.1, Immature Gran % (Auto) 0.400, Neut % (Auto) 77.3 H, Lymph % (Auto) 14.1 L, Coles % (Auto) 6.6, Eos % (Auto) 1.1, Baso % (Auto) 0.5, Absolute Neuts (auto) 7.3, Absolute Lymphs (auto) 1.34, Nucleated RBC % 0 04/26/21 04:01: Sodium 139, Potassium 3.9, Chloride 104, Carbon Dioxide 30.0, Anion Gap 5, BUN 20 H, Creatinine 1.17, Estim Creat Clear Calc 60.66, Est GFR (MDRD) Af Amer 79, Est GFR (MDRD) Non-Af 65, BUN/Creatinine Ratio 17.1, Glucose 206 H, Calcium 8.5, Total Bilirubin 0.30, AST 29, ALT 46, Alkaline Phosphatase 106, Total Protein 6.8, Albumin 3.0 L, Globulin 3.8, Albumin/Globulin Ratio 0.8 L, TSH 1.11, Free T4 1.17 04/26/21 06:00: POC Glucose 183 H 04/26/21 08:10: Troponin I High Sens 50 04/26/21 12:20: POC Glucose 218 H Micro: Microbiology 04/25/21 22:58 Mucosa - Nose Respiratory Panel (PCR) - Final 04/25/21 21:30 Nasal Secretion SARS-CoV-2 Antigen (Rapid) - Final ABG Data ABG results: ABG 04/25/21 21:31 Specimen Type ART Sample Site L Radial pH 7.30 L Bicarbonate Actual 25.8 Total CO2 27 Base Excess -1 O2 Saturation 100 H O2 % 70 ABG pCO2 53.0 H ABG pO2 253 H Dejon Test Positive Respiration Rate 12 O2 Delivery Device BiPAP Clinical Comments 23/03 BIPAP Cardiology Labs/Tests 04/25/21 21:20: WBC 9.0, RBC 4.36 L, Hgb 11.4 L, Hct 38.4 L, MCV 88.1, MCH 26.1 L, MCHC 29.7 L, Plt Count 276, MPV 11.4, Immature Gran % (Auto) 0.600, Neut % (Auto) 51.2, Lymph % (Auto) 37.8, Coles % (Auto) 6.4, Eos % (Auto) 3.2, Baso % (Auto) 0.8, Absolute Neuts (auto) 4.6, Nucleated RBC % 0 04/25/21 21:20: Sodium 136, Potassium 4.5, Chloride 104, Carbon Dioxide 26.0, Anion Gap 6, BUN 18, Creatinine 1.29, Est GFR (MDRD) Af Amer 71, Est GFR (MDRD) Non-Af 58 L, BUN/Creatinine Ratio 14.0, Glucose 305 H, Calcium 8.7, Magnesium 2.1 04/25/21 21:20: Lactic Acid 2.3 H* 04/25/21 21:20: B-Natriuretic Peptide 386.7 H 04/25/21 21:31: pH 7.30 L, Bicarbonate Actual 25.8, Base Excess -1, O2 Saturation 100 H, ABG pCO2 53.0 H, ABG pO2 253 H, Dejon Test Positive 04/26/21 01:50: Lactic Acid 1.4 04/26/21 04:01: WBC 9.5, RBC 3.61 L, Hgb 9.4 L, Hct 31.5 L, MCV 87.3, MCH 26.0 L, MCHC 29.8 L, Plt Count 215, MPV 11.1, Immature Gran % (Auto) 0.400, Neut % (Auto) 77.3 H, Lymph % (Auto) 14.1 L, Coles % (Auto) 6.6, Eos % (Auto) 1.1, Baso % (Auto) 0.5, Absolute Neuts (auto) 7.3, Nucleated RBC % 0 04/26/21 04:01: Sodium 139, Potassium 3.9, Chloride 104, Carbon Dioxide 30.0, Anion Gap 5, BUN 20 H, Creatinine 1.17, Est GFR (MDRD) Af Amer 79, Est GFR (MDRD) Non-Af 65, BUN/Creatinine Ratio 17.1, Glucose 206 H, Calcium 8.5, Total Bilirubin 0.30 Rhythm: EKG: ECHO: Stress Test: Cardiac Cath: PCI: CT Surgery: Holter monitor: EPS: PPM: CXR: Chest CT Scan: Radiography Diagnostic Testing: Radiology Impression Chest X-Ray 04/25/21 21:45 IMPRESSION: 1. Findings suggesting bibasilar interstitial edema. No significant change compared with prior exams 03/15/2021 and 02/18/2021. Electronically Signed: Zeferino Cornell DO at 22:23 EST Tel , Service support , Chest X-Ray 04/26/21 05:55 IMPRESSION: Suspect underlying chronic interstitial lung disease, component of emphysema. Mild increase in interstitial pattern in the right base, decreased when compared to previous examination. Acute on chronic improving airspace disease may be present. Electronically Signed: Helen Meyer MD at 5:53 EST , Service support ,
--- NOTE | 2021-04-26 15:11 | ECHOLC_ITS ---
Reason For Study: DYSPNEA Procedure This was a limited 2D transthoracic echocardiogram. The exam was of poor technical quality due to body habitus. Contrast injection was performed. Limited views were obtained. Exam performed portable in ICU/CCU. Left Ventricle Moderately dilated left ventricle. The estimated ejection fraction is 25- 30 %. Right Ventricle The right ventricle is not well visualized. Atria The left atrium is mildly enlarged. Mitral Valve The mitral valve is structurally normal. No prolapse or stenosis seen. Tricuspid Valve Normal tricuspid valve. Aortic Valve Mild diffuse aortic valve calcification. Pulmonic Valve The pulmonic valve is not well visualized. Great Vessels Normal aortic root. Pericardium/Pleural No pericardial effusion. Medication Diluted definity 4.0ml given slow IV push to enhance endocardial definition. MMode/2D Measurements & Calculations LVIDd: 6.7 cm IVSd: 1.1 cm Ao root diam: 3.6 cm LVIDs: 6.0 cm LVPWd: 1.2 cm FS: 10.8 % LVAd ap4: 45.7 cm2 SV(MOD-sp4): 47.8 ml SV(sp4-el): 54.1 ml LVLd ap4: 9.0 cm EDV(MOD-sp4): 190.9 ml EDV(sp4-el): 197.0 ml LVAs ap4: 38.1 cm2 LVLs ap4: 8.6 cm ESV(MOD-sp4): 143.1 ml ESV(sp4-el): 142.9 ml EF(MOD-sp4): 25.0 % EF(sp4-el): 27.5 % Doppler Measurements & Calculations TR max baljinder: 341.4 cm/sec TR max P.6 mmHg ECHO/Echo Limited w/Contrast Interpretation Summary The estimated ejection fraction is 25- 30 %. Contrast echo used Severe LV systolic Dysfunction with severe Global LV Hypokinesia Significant change in EF,in 01/21/21 EF was Normal 55% Ordering Physician: Shannon Estrada Referring Physician: ANTONY QIU Performed By: Candice Selby, LAMIN, RVT
[2021-04-26 16:35] LABS: Bedside Glucose 182 mg/dL (70-110)
[2021-04-26] MEDS: 0.9% Saline Lock 10 ML Syringe IV (17:04)
--- NOTE | 2021-04-26 17:25 | NURSING ---
report called to CAMILA Rodgers in PCU
--- NOTE | 2021-04-26 17:32 | PCS.PANDOC ---
PANDEMIC DOCUMENTATION INITIATED: Date: 01/21/2021 Time: 190
[2021-04-26] MEDS: Tamsulosin HCl 0.4 MG Capsule PO (20:54)
[2021-04-26] MEDS: Pravastatin 80 MG Tablet PO (20:55)
[2021-04-26] MEDS: MELATONIN 3 MG TABLET PO (20:55)
[2021-04-26 21:21] LABS: Bedside Glucose 239 mg/dL (70-110)
[2021-04-26] MEDS: Pramipexole Di-HCl 0.25 MG Tablet PO (21:53)
[2021-04-27] VITALS (15 sets, daily range): BP systolic 91–137; BP diastolic 53–67; PULSE 65–83; RESP 12–24; TEMP 36.2–37.1; O2SAT 94–99
--- NOTE | 2021-04-27 02:05 | CPS ---
RN called and said pt said it was blowing too much air, it was too strong. Settings are 14/8 28%. RT can not turn down any further, Pt will not benefit RN aware
[2021-04-27] MEDS: Menthol/Lanolin/Calamine/Znox 113 GM Tube 1 APPLIC TOPICAL ×2 (05:51→21:27)
[2021-04-27] MEDS: Ipratropium/Albuterol Sulfate 3 ML AMPUL.NEB INHALATION ×3 (05:57→18:57)
[2021-04-27 06:39] LABS: Absolute Lymphocyte Count 1.39 X10^3/uL (0.83-4.51); Absolute Neutrophil Count 5.3 X10^3/uL (2.0-7.7); Basophil# 0.07 X10^3/uL; Basophil% 0.9 % (0-1); Eosinophil# 0.14 X10^3/uL; Eosinophils% 1.9 % (0-5); Hematocrit 30.8 % (40-54); Hemoglobin 9.6 g/dL (13.0-16.5); Lymphocyte # 1.39 X10^3/ul (0.83-4.51); Lymphocyte % 18.7 % (19-41); Mean Corp Hgb Conc 31.2 g/dL (32-36); Mean Corpuscular Hgb 26.5 pg (27.0-32.0); Mean Corpuscular Volume 85.1 fL (80-94); Mean Platelet Vol. 11.1 fl (6.2-12.0); Monocyte# 0.58 X10^3/uL; Monocyte% 7.8 % (0-10); NRBC Flagged by Analyzer 0 % (0-5); Neutrophil # 5.25 X10^3/uL (2.7-7.7); Neutrophil % 70.4 % (47-70); Platelet Count 205 K/mm3 (150-450); RBC Distribution Width CV 15.7 % (11.6-14.6); Red Blood Count 3.62 M/mm3 (4.6-6.2); White Blood Count 7.5 K/mm3 (4.4-11.0)
[2021-04-27] MEDS: Insulin Lispro 100 UNIT/ML INSULN.PEN SC ×4 (06:43→21:22)
[2021-04-27 07:00] LABS: Bedside Glucose 205 mg/dL (70-110)
[2021-04-27 07:03] LABS: Anion Gap 6 (5-15); BUN 20 mg/dL (7-18); BUN/Creat Ratio 24.2 RATIO (10-20); Calcium,Total 8.6 mg/dL (8.5-10.1); Chloride 107 mmol/L (98-107); Creatinine, Serum 0.83 mg/dL (0.70-1.30); EST Glomerular Filtration Rate 98 mL/min (>60); Est Glom Filt Rate - Afr Amer 118 mL/min (>60); Estimated Creatinine Clearance 85.51 ml/min; Glucose 184 mg/dL (74-106); Potassium 3.6 mmol/L (3.5-5.1); Sodium Level 140 mmol/L (136-145)
[2021-04-27] MEDS: TICAGRELOR 90 MG TABLET PO ×2 (10:16→21:27)
[2021-04-27] MEDS: Potassium Chloride Oral Tablet 20 MEQ 40 MEQ PO (10:16)
[2021-04-27] MEDS: Enoxaparin 40 MG/0.4 ML Syringe SC ×2 (10:21→22:03)
[2021-04-27] MEDS: FLUoxetine 20 MG Capsule 60 MG PO (10:22)
[2021-04-27] MEDS: Pantoprazole Sodium 40 MG Tablet PO ×2 (10:22→21:27)
[2021-04-27] MEDS: Furosemide 40 MG/4 ML Vial IV ×2 (10:22→17:05)
[2021-04-27] MEDS: Aspirin 81 MG TAB.CHEW PO (10:22)
[2021-04-27] MEDS: Senna/Docusate Sodium 1 Tablet PO ×2 (10:22→22:03)
[2021-04-27] MEDS: Carvedilol 25 MG Tablet PO ×2 (10:23→22:03)
[2021-04-27] MEDS: Amantadine 100 MG Capsule PO (10:23)
[2021-04-27] MEDS: SACUBITRIL/VALSARTAN 24/26 MG TABLET 1 EACH PO ×2 (11:32→21:26)
[2021-04-27 11:41] LABS: Bedside Glucose 208 mg/dL (70-110)
[2021-04-27] MEDS: Acetaminophen 325 MG Tablet 650 MG PO ×2 (13:25→19:52)
[2021-04-27] MEDS: oxyCODONE 5 MG Tablet PO ×2 (13:25→19:52)
--- NOTE | 2021-04-27 14:32 | PN.HOSP_ITS ---
Subjective Subjective Had some some shortness of breath today. Feels good now. Objective Data Objective Data Vital Signs: Vital Signs Temp Pulse Resp BP Pulse Ox 36.8 C 78 24 H 130/66 H 97 04/27/21 10:09 04/27/21 12:00 04/27/21 11:26 04/27/21 10:09 04/27/21 11:26 Oxygen Flow Rate (L/min) 2 Oxygen Delivery Method Nasal Cannula Weight: 136.8 kg Body Mass Index (BMI) 44.1 Intake & Output: Intake and Output for Last 24 Hours 04/25/21 04/26/21 04/27/21 23:59 23:59 23:59 Intake Total 560 / 800 1080 / 1080 Output Total 3600 / 5100 2525 / 2525 Balance -3040 / -4300 -1445 / -1445 Lab / Micro Data Result Diagrams: 04/27/21 06:30 04/27/21 06:30 Labs: Laboratory Results - last 24 hr 04/26/21 16:30: POC Glucose 182 H 04/26/21 20:49: POC Glucose 239 H 04/27/21 06:30: WBC 7.5, RBC 3.62 L, Hgb 9.6 L, Hct 30.8 L, MCV 85.1, MCH 26.5 L , MCHC 31.2 L, RDW Std Deviation 48.0 H, RDW Coeff of Sherin 15.7 H, Plt Count 205, MPV 11.1, Immature Gran % (Auto) 0.300, Neut % (Auto) 70.4 H, Lymph % (Auto) 18.7 L, [place] % (Auto) 7.8, Eos % (Auto) 1.9, Baso % (Auto) 0.9, Absolute Neuts (auto) 5.3, Absolute Lymphs (auto) 1.39, Nucleated RBC % 0 04/27/21 06:30: Sodium 140, Potassium 3.6, Chloride 107, Carbon Dioxide 27.0, Anion Gap 6, BUN 20 H, Creatinine 0.83, Estim Creat Clear Calc 85.51, Est GFR (MDRD) Af Amer 118, Est GFR (MDRD) Non-Af 98, BUN/Creatinine Ratio 24.2 H, Glucose 184 H, Calcium 8.6 04/27/21 06:31: POC Glucose 205 H 04/27/21 11:27: POC Glucose 208 H Micro: Microbiology 04/25/21 22:58 Mucosa - Nose Respiratory Panel (PCR) - Final 04/25/21 21:30 Nasal Secretion SARS-CoV-2 Antigen (Rapid) - Final Physical Exam Const alert and no apparent distress Resp normal respiratory effort, no retractions, no use of accessory muscles and clear to auscultation bilaterally Cardio regular rate, regular rhythm, S1 normal heart sound and S2 normal heart sound GI normal to inspection, nondistended, normoactive bowel sounds, soft to palpation, non-tender and non-distended Extremity normal to inspection Assessment & Plan Assessment/Plan (1) Acute and chronic respiratory failure with hypoxia: (2) Chronic combined systolic and diastolic CHF (congestive heart failure): PLAN: 1. Acute HFpEF * EF 55% on echo from 01/21/2021 * continue IV furosemide * continue carvedilol * concern for dietary compliance given frequency of hospitalizations. Consult nutrition * follow up echo 2. Acute hypoxic respiratory failure * 2/2 CHF and underlying COPD * improved * off BiPAP * continue to wean oxygen as able 3. Encephalopathy * ruled out 4. H/O CVA * stable 5. DM2 * fair control * continue glargine and SSI 6. VTE prophylaxis: enoxaparin Charges/Coding Visit Charges Inpatient E&M: 34763 Subs Hosp L2
--- NOTE | 2021-04-27 15:00 | PN.CARD_ITS ---
Subjective Subjective Patient seen and evaluated today at bedside along with the nursing staff Shortness of breath is improving He has no symptoms of chest pain. Objective Data Vital Signs: Vital Signs Temp Pulse Resp BP Pulse Ox 98.3 F 78 24 H 130/66 H 97 04/27/21 10:09 04/27/21 12:00 04/27/21 11:26 04/27/21 10:09 04/27/21 11:26 Oxygen Flow Rate (L/min) 2 Oxygen Delivery Method Nasal Cannula Weight: 301 lb 9.478 oz Body Mass Index (BMI) 44.1 Intake & Output: Intake and Output for Last 24 Hours 04/25/21 04/26/21 04/27/21 23:59 23:59 23:59 Intake Total 560 / 800 1080 / 1080 Output Total 3600 / 5100 2525 / 2525 Balance -3040 / -4300 -1445 / -1445 Lab / Micro Data Result Diagrams: 04/27/21 06:30 04/27/21 06:30 Labs: Laboratory Results - last 24 hr 04/26/21 16:30: POC Glucose 182 H 04/26/21 20:49: POC Glucose 239 H 04/27/21 06:30: WBC 7.5, RBC 3.62 L, Hgb 9.6 L, Hct 30.8 L, MCV 85.1, MCH 26.5 L , MCHC 31.2 L, RDW Std Deviation 48.0 H, RDW Coeff of Sherin 15.7 H, Plt Count 205, MPV 11.1, Immature Gran % (Auto) 0.300, Neut % (Auto) 70.4 H, Lymph % (Auto) 18.7 L, [place] % (Auto) 7.8, Eos % (Auto) 1.9, Baso % (Auto) 0.9, Absolute Neuts (auto) 5.3, Absolute Lymphs (auto) 1.39, Nucleated RBC % 0 04/27/21 06:30: Sodium 140, Potassium 3.6, Chloride 107, Carbon Dioxide 27.0, Anion Gap 6, BUN 20 H, Creatinine 0.83, Estim Creat Clear Calc 85.51, Est GFR (MDRD) Af Amer 118, Est GFR (MDRD) Non-Af 98, BUN/Creatinine Ratio 24.2 H, Glucose 184 H, Calcium 8.6 04/27/21 06:31: POC Glucose 205 H 04/27/21 11:27: POC Glucose 208 H Cardiology Labs/Tests 04/27/21 06:30: WBC 7.5, RBC 3.62 L, Hgb 9.6 L, Hct 30.8 L, MCV 85.1, MCH 26.5 L , MCHC 31.2 L, Plt Count 205, MPV 11.1, Immature Gran % (Auto) 0.300, Neut % (Auto) 70.4 H, Lymph % (Auto) 18.7 L, [place] % (Auto) 7.8, Eos % (Auto) 1.9, Baso % (Auto) 0.9, Absolute Neuts (auto) 5.3, Nucleated RBC % 0 04/27/21 06:30: Sodium 140, Potassium 3.6, Chloride 107, Carbon Dioxide 27.0, Anion Gap 6, BUN 20 H, Creatinine 0.83, Est GFR (MDRD) Af Amer 118, Est GFR (MDRD) Non-Af 98, BUN/Creatinine Ratio 24.2 H, Glucose 184 H, Calcium 8.6 Rhythm: EKG: ECHO: Stress Test: Cardiac Cath: PCI: CT Surgery: Holter monitor: EPS: PPM: CXR: Chest CT Scan:
--- NOTE | 2021-04-27 16:53 | PCM.PN.CARD ---
Subjective Subjective Patient seen and evaluated today at bedside along with the nursing staff Symptoms of shortness of breath improving gradually He has no symptoms of chest pain. Objective Data Vital Signs: Vital Signs Temp Pulse Resp BP Pulse Ox 98.7 F 77 18 91/67 97 04/27/21 15:51 04/27/21 15:51 04/27/21 15:51 04/27/21 15:51 04/27/21 15:51 Oxygen Flow Rate (L/min) 2 Oxygen Delivery Method Nasal Cannula Weight: 301 lb 9.478 oz Body Mass Index (BMI) 44.1 Intake & Output: Intake and Output for Last 24 Hours 04/25/21 04/26/21 04/27/21 23:59 23:59 23:59 Intake Total 560 / 800 1080 / 1080 Output Total 3600 / 5100 2525 / 2525 Balance -3040 / -4300 -1445 / -1445 Lab / Micro Data Result Diagrams: 04/27/21 06:30 04/27/21 06:30 Labs: Laboratory Results - last 24 hr 04/26/21 20:49: POC Glucose 239 H 04/27/21 06:30: WBC 7.5, RBC 3.62 L, Hgb 9.6 L, Hct 30.8 L, MCV 85.1, MCH 26.5 L, MCHC 31.2 L, RDW Std Deviation 48.0 H, RDW Coeff of Sherin 15.7 H, Plt Count 205, MPV 11.1, Immature Gran % (Auto) 0.300, Neut % (Auto) 70.4 H, Lymph % (Auto) 18.7 L, Jasper % (Auto) 7.8, Eos % (Auto) 1.9, Baso % (Auto) 0.9, Absolute Neuts (auto) 5.3, Absolute Lymphs (auto) 1.39, Nucleated RBC % 0 04/27/21 06:30: Sodium 140, Potassium 3.6, Chloride 107, Carbon Dioxide 27.0, Anion Gap 6, BUN 20 H, Creatinine 0.83, Estim Creat Clear Calc 85.51, Est GFR (MDRD) Af Amer 118, Est GFR (MDRD) Non-Af 98, BUN/Creatinine Ratio 24.2 H, Glucose 184 H, Calcium 8.6 04/27/21 06:31: POC Glucose 205 H 04/27/21 11:27: POC Glucose 208 H Cardiology Labs/Tests 04/27/21 06:30: WBC 7.5, RBC 3.62 L, Hgb 9.6 L, Hct 30.8 L, MCV 85.1, MCH 26.5 L, MCHC 31.2 L, Plt Count 205, MPV 11.1, Immature Gran % (Auto) 0.300, Neut % (Auto) 70.4 H, Lymph % (Auto) 18.7 L, Jasper % (Auto) 7.8, Eos % (Auto) 1.9, Baso % (Auto) 0.9, Absolute Neuts (auto) 5.3, Nucleated RBC % 0 04/27/21 06:30: Sodium 140, Potassium 3.6, Chloride 107, Carbon Dioxide 27.0, Anion Gap 6, BUN 20 H, Creatinine 0.83, Est GFR (MDRD) Af Amer 118, Est GFR (MDRD) Non-Af 98, BUN/Creatinine Ratio 24.2 H, Glucose 184 H, Calcium 8.6 Rhythm: NSR ECHO: Significant change in the echocardiogram from prior with severely reduced LV systolic function Ejection fraction in the range of 25-30% with severe global LV hypokinesia. Radiography Diagnostic Testing: Radiology Impression Echocardiogram 04/26/21 15:11 Interpretation Summary The estimated ejection fraction is 25- 30 %. Contrast echo used Severe LV systolic Dysfunction with severe Global LV Hypokinesia Significant change in EF,in 01/21/21 EF was Normal 55% Ordering Physician: Shannon Estrada Referring Physician: ANTONY QIU Performed By: Candice Selby, RDCS, RVT Physical Exam Narrative Patient alert orientated x3 at bedside front desk monitor showed underlying normal sinus Cardiovascular exam S1-S2 regular, no murmur no systolic or diastolic murmur, no pericardial rub Chest examination diminished air entry bilateral with minimal basilar rales Examination of lower extremity no clubbing no cyanosis no extremity edema. Assessment & Plan Assessment/Plan (1) Acute and chronic respiratory failure with hypoxia: (2) History of coronary artery stent placement: (3) H/O coronary artery bypass surgery: (4) Chronic combined systolic and diastolic CHF (congestive heart failure): PLAN: 70-year-old patient who was admitted with symptoms of shortness of breath, no symptoms of chest pain. Patient has extensive cardiac history with a history of CABG 2001 with occluded all graft/3 graft Occluded graft with complex PCI and stent of left main and bifurcation with distal left main/LAD and left circumflex stenting at [facility]. 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 Evidently patient has LV systolic function on echocardiogram in January 1621 Evaluation by echocardiogram in this admission showed severely reduced LV systolic dysfunction with global LV hypokinesia ejection fraction 25-30%. Cardiovascular system recommendation 1. Based on his clinical presentation and significant change in the echocardiogram I discussed with the patient and the family the need for further evaluation by cardiac cath, evaluate the extent of the left main and the bifurcation of LAD and left circumflex. Patient reluctant to undergo cardiac catheterization at this time. Continue diuretic and CHF protocol, monitor renal function electrolytes. His renal function is within normal and currently is on beta-stepan carvedilol, Entresto in addition to Lasix and rest of his medication including dual antiplatelet with Brilinta and aspirin. 2. Patient currently on medical therapy will continue current treatment 3. His primary warehouse driver is Dr. Peña. We will continue to monitor and follow-up clinically (5) COPD (chronic obstructive pulmonary disease): (6) CVA (cerebral vascular accident):
[2021-04-27 17:50] LABS: Bedside Glucose 190 mg/dL (70-110)
[2021-04-27] MEDS: Pravastatin 80 MG Tablet PO (21:26)
[2021-04-27] MEDS: Tamsulosin HCl 0.4 MG Capsule PO (21:26)
[2021-04-27] MEDS: MELATONIN 3 MG TABLET PO (21:26)
[2021-04-27 22:00] LABS: Bedside Glucose 222 mg/dL (70-110)
[2021-04-27] MEDS: Pramipexole Di-HCl 0.25 MG Tablet PO (22:49)
[2021-04-28] VITALS (14 sets, daily range): BP systolic 86–145; BP diastolic 45–86; PULSE 63–88; RESP 16–24; TEMP 36.5–36.9; O2SAT 2–100
--- NOTE | 2021-04-28 01:36 | CPS ---
Addendum entered by Elba Jalloh 04/28/21 01:36: Pt on own bipap with O2 bled in Original Note: pton own bipap with o2 bled in
[2021-04-28] MEDS: Menthol/Lanolin/Calamine/Znox 113 GM Tube 1 APPLIC TOPICAL ×2 (05:25→20:38)
[2021-04-28 06:36] LABS: Anion Gap 6 (5-15); BUN 24 mg/dL (7-18); BUN/Creat Ratio 26.9 RATIO (10-20); Chloride 106 mmol/L (98-107); Creatinine, Serum 0.89 mg/dL (0.70-1.30); EST Glomerular Filtration Rate 90 mL/min (>60); Est Glom Filt Rate - Afr Amer 108 mL/min (>60); Estimated Creatinine Clearance 79.74 ml/min; Glucose 175 mg/dL (74-106); Potassium 3.5 mmol/L (3.5-5.1); Sodium Level 138 mmol/L (136-145)
[2021-04-28] MEDS: Insulin Lispro 100 UNIT/ML INSULN.PEN SC ×4 (06:38→21:18)
[2021-04-28 07:06] LABS: Bedside Glucose 160 mg/dL (70-110)
[2021-04-28] MEDS: Ipratropium/Albuterol Sulfate 3 ML AMPUL.NEB INHALATION ×3 (07:21→18:49)
[2021-04-28] MEDS: Acetaminophen 325 MG Tablet 650 MG PO (09:46)
[2021-04-28] MEDS: SACUBITRIL/VALSARTAN 24/26 MG TABLET 1 EACH PO ×2 (09:47→20:37)
[2021-04-28] MEDS: Potassium Chloride Oral Tablet 20 MEQ 40 MEQ PO (09:47)
[2021-04-28] MEDS: Amantadine 100 MG Capsule PO (09:47)
[2021-04-28] MEDS: oxyCODONE 5 MG Tablet PO (09:47)
[2021-04-28] MEDS: FLUoxetine 20 MG Capsule 60 MG PO (09:48)
[2021-04-28] MEDS: Pantoprazole Sodium 40 MG Tablet PO ×2 (09:48→20:45)
[2021-04-28] MEDS: TICAGRELOR 90 MG TABLET PO ×2 (09:48→20:38)
[2021-04-28] MEDS: Aspirin 81 MG TAB.CHEW PO (09:58)
[2021-04-28] MEDS: Senna/Docusate Sodium 1 Tablet PO ×2 (09:58→20:45)
[2021-04-28] MEDS: Enoxaparin 40 MG/0.4 ML Syringe SC ×2 (09:58→20:45)
[2021-04-28] MEDS: Carvedilol 25 MG Tablet PO ×2 (09:58→20:45)
[2021-04-28] MEDS: Furosemide 40 MG Tablet PO ×2 (09:58→16:51)
[2021-04-28 11:05] LABS: Bedside Glucose 213 mg/dL (70-110)
--- NOTE | 2021-04-28 13:58 | PN.HOSP_ITS ---
Subjective Subjective breathing well. Objective Data Objective Data Vital Signs: Vital Signs Temp Pulse Resp BP Pulse Ox 36.5 C L 77 18 127/64 H 2 04/28/21 09:39 04/28/21 09:39 04/28/21 09:39 04/28/21 09:39 04/28/21 13:01 Oxygen Flow Rate (L/min) 2 Oxygen Delivery Method Room Air Weight: 1356 kg Body Mass Index (BMI) 44.1 Intake & Output: Intake and Output for Last 24 Hours 04/26/21 04/27/21 04/28/21 23:59 23:59 23:59 Intake Total 560 / 800 1580 / 1580 300 / 300 Output Total 3600 / 5100 3550 / 3550 550 / 550 Balance -3040 / -4300 -1970 / -1970 -250 / -250 Lab / Micro Data Result Diagrams: 04/27/21 06:30 04/28/21 05:30 Labs: Laboratory Results - last 24 hr 04/27/21 17:03: POC Glucose 190 H 04/27/21 21:19: POC Glucose 222 H 04/28/21 05:30: Sodium 138, Potassium 3.5, Chloride 106, Carbon Dioxide 26.0, Anion Gap 6, BUN 24 H, Creatinine 0.89, Estim Creat Clear Calc 79.74, Est GFR (MDRD) Af Amer 108, Est GFR (MDRD) Non-Af 90, BUN/Creatinine Ratio 26.9 H, Glucose 175 H, Calcium 9.0 04/28/21 06:37: POC Glucose 160 H 04/28/21 10:51: POC Glucose 213 H Micro: Microbiology 04/25/21 22:58 Mucosa - Nose Respiratory Panel (PCR) - Final 04/25/21 21:30 Nasal Secretion SARS-CoV-2 Antigen (Rapid) - Final Radiography Diagnostic Testing: Radiology Impression Echocardiogram 04/26/21 15:11 Interpretation Summary The estimated ejection fraction is 25- 30 %. Contrast echo used Severe LV systolic Dysfunction with severe Global LV Hypokinesia Significant change in EF,in 01/21/21 EF was Normal 55% Ordering Physician: Shannon Estrada Referring Physician: ANTONY QIU Performed By: Candice Selby, LAMIN, RVT Physical Exam Const alert Resp normal respiratory effort, no retractions, no use of accessory muscles and clear to auscultation bilaterally Cardio regular rate, regular rhythm, S1 normal heart sound and S2 normal heart sound GI normal to inspection, nondistended, normoactive bowel sounds, soft to palpation, non-tender and non-distended Extremity normal to inspection Assessment & Plan Assessment/Plan (1) Acute and chronic respiratory failure with hypoxia: (2) Chronic combined systolic and diastolic CHF (congestive heart failure): PLAN: 1. Acute HFrEF * EF 55% on echo from 01/21/2021 now down to 25% * change to PO furosemide * continue carvedilol * concern for dietary compliance given frequency of hospitalizations. Consult nutrition * initially pt was reluctant to have a LHC, but now is willing. DW Dr. Ojeda, plan for LHC on 04/29 2. Acute hypoxic respiratory failure * 2/2 CHF and underlying COPD * improved * off BiPAP * continue to wean oxygen as able * check ambulatory pulse ox upon dishcarge 3. Encephalopathy * ruled out 4. H/O CVA * stable 5. DM2 * fair control * continue glargine and SSI 6. VTE prophylaxis: enoxaparin Charges/Coding Visit Charges Inpatient E&M: 77423 Subs Hosp L2
--- NOTE | 2021-04-28 14:05 | PCM.PN.CARD ---
Subjective Subjective Shortness of breath improving Objective Data Vital Signs: Vital Signs Temp Pulse Resp BP Pulse Ox 97.7 F L 77 18 127/64 H 2 04/28/21 09:39 04/28/21 09:39 04/28/21 09:39 04/28/21 09:39 04/28/21 13:01 Oxygen Flow Rate (L/min) 2 Oxygen Delivery Method Room Air Weight: 2989 lb 7.49 oz Body Mass Index (BMI) 44.1 Intake & Output: Intake and Output for Last 24 Hours 04/26/21 04/27/21 04/28/21 23:59 23:59 23:59 Intake Total 560 / 800 1580 / 1580 300 / 300 Output Total 3600 / 5100 3550 / 3550 550 / 550 Balance -3040 / -4300 -1970 / -1970 -250 / -250 Lab / Micro Data Result Diagrams: 04/27/21 06:30 04/28/21 05:30 Labs: Laboratory Results - last 24 hr 04/27/21 17:03: POC Glucose 190 H 04/27/21 21:19: POC Glucose 222 H 04/28/21 05:30: Sodium 138, Potassium 3.5, Chloride 106, Carbon Dioxide 26.0, Anion Gap 6, BUN 24 H, Creatinine 0.89, Estim Creat Clear Calc 79.74, Est GFR (MDRD) Af Amer 108, Est GFR (MDRD) Non-Af 90, BUN/Creatinine Ratio 26.9 H, Glucose 175 H, Calcium 9.0 04/28/21 06:37: POC Glucose 160 H 04/28/21 10:51: POC Glucose 213 H Cardiology Labs/Tests 04/28/21 05:30: Sodium 138, Potassium 3.5, Chloride 106, Carbon Dioxide 26.0, Anion Gap 6, BUN 24 H, Creatinine 0.89, Est GFR (MDRD) Af Amer 108, Est GFR (MDRD) Non-Af 90, BUN/Creatinine Ratio 26.9 H, Glucose 175 H, Calcium 9.0 Rhythm: Normal sinus rhythm Radiography Diagnostic Testing: Radiology Impression Echocardiogram 04/26/21 15:11 Interpretation Summary The estimated ejection fraction is 25- 30 %. Contrast echo used Severe LV systolic Dysfunction with severe Global LV Hypokinesia Significant change in EF,in 01/21/21 EF was Normal 55% Ordering Physician: Shannon Estrada Referring Physician: ANTONY QIU Performed By: Candice Selby, RDCS, RVT Assessment & Plan Assessment/Plan (1) Acute and chronic respiratory failure with hypoxia: (2) H/O coronary artery bypass surgery: (3) History of coronary artery stent placement: (4) CVA (cerebral vascular accident): (5) History of non-ST elevation myocardial infarction (NSTEMI): (6) Chronic combined systolic and diastolic CHF (congestive heart failure): PLAN: This 70-year-old patient with very extensive cardiac history With the occluded bypass graft Has PCI of left main and bifurcation of the LAD and the left circumflex In this admission he presented with symptoms of shortness of breath with acute on chronic combined systolic and diastolic heart failure Noted reduction of the EF from 55 to 25%. Patient has other medical problem with history of CVA with right-sided weakness, diabetes mellitus, acute on chronic hypoxic respiratory failure with chronic history of COPD. Cardiovascular assessment and recommendation; 1. I reviewed and discussed the current medication will continue current treatment/CHF protocol. 2. I discussed today the need for further evaluation by cardiac cath/patient and family agree for cardiac catheterization Risk and benefit of the procedure explained detail to the patient 3. Primary instrument maker and repairer is Dr. Peña.
[2021-04-28 16:55] LABS: Bedside Glucose 169 mg/dL (70-110)
[2021-04-28] MEDS: Pravastatin 80 MG Tablet PO (20:38)
[2021-04-28] MEDS: Pramipexole Di-HCl 0.25 MG Tablet PO (20:38)
[2021-04-28] MEDS: Tamsulosin HCl 0.4 MG Capsule PO (20:45)
[2021-04-28 21:50] LABS: Bedside Glucose 219 mg/dL (70-110)
[2021-04-28] MEDS: MELATONIN 3 MG TABLET PO (22:27)
[2021-04-29] VITALS (12 sets, daily range): BP systolic 115–141; BP diastolic 37–71; PULSE 63–99; RESP 18–20; TEMP 36.4–36.9; O2SAT 95–100
[2021-04-29] MEDS: 0.9% Saline Lock 10 ML Syringe IV ×2 (02:51→05:36)
[2021-04-29] MEDS: Menthol/Lanolin/Calamine/Znox 113 GM Tube 1 APPLIC TOPICAL (05:36)
[2021-04-29] MEDS: 0.9% Normal Saline 1,000 ML 15 ML IV (05:37)
[2021-04-29 05:46] LABS: Anion Gap 7 (5-15); BUN 18 mg/dL (7-18); BUN/Creat Ratio 23.5 RATIO (10-20); Calcium,Total 8.6 mg/dL (8.5-10.1); Chloride 106 mmol/L (98-107); Creatinine, Serum 0.77 mg/dL (0.70-1.30); EST Glomerular Filtration Rate 107 mL/min (>60); Est Glom Filt Rate - Afr Amer 129 mL/min (>60); Estimated Creatinine Clearance 70.97 ml/min; Glucose 155 mg/dL (74-106); Potassium 3.5 mmol/L (3.5-5.1); Sodium Level 138 mmol/L (136-145)
--- NOTE | 2021-04-29 05:55 | EKG12_ITS ---
Test Reason : AM EKG Blood Pressure : / mmHG Vent. Rate : 068 BPM Atrial Rate : 068 BPM P-R Int : 178 ms QRS Dur : 108 ms QT Int : 408 ms P-R-T Axes : 069 063 145 degrees QTc Int : 433 ms Normal sinus rhythm Nonspecific ST and T wave abnormality Abnormal ECG When compared with ECG of 25-APR-2021 21:19, MANUAL COMPARISON REQUIRED, DATA IS UNCONFIRMED Confirmed by SHERYL MATTA, ALVARO ([id number]), supervising editor news reel EMMANUEL CONTRERAS ([id number]) on 04/30/2021 1:53:10 PM Referred By: STEPHANIE Confirmed By:ALVARO SAUCEDO MD
[2021-04-29] MEDS: Ipratropium/Albuterol Sulfate 3 ML AMPUL.NEB INHALATION (06:49)
[2021-04-29] MEDS: Carvedilol 25 MG Tablet PO (06:55)
[2021-04-29] MEDS: Aspirin 81 MG TAB.CHEW PO (06:55)
[2021-04-29 06:56] LABS: Bedside Glucose 153 mg/dL (70-110)
[2021-04-29] MEDS: TICAGRELOR 90 MG TABLET PO (07:33)
[2021-04-29] MEDS: SACUBITRIL/VALSARTAN 24/26 MG TABLET 1 EACH PO (07:33)
--- NOTE | 2021-04-29 07:45 | NURSING ---
This RN called and gave report to CAMILA Swanson at [facility].
--- NOTE | 2021-04-29 08:38 | PN.CARD_ITS ---
Subjective Subjective Patient's seen and evaluated. Appears to be doing much better this morning. Objective Data Vital Signs: Vital Signs Temp Pulse Resp BP Pulse Ox 97.9 F 77 18 130/59 H 100 04/29/21 06:56 04/29/21 06:56 04/29/21 06:56 04/29/21 06:56 04/29/21 06:56 Oxygen Flow Rate (L/min) 2 Oxygen Delivery Method Room Air Weight: 295 lb 6.711 oz Body Mass Index (BMI) 44.1 Intake & Output: Intake and Output for Last 24 Hours 04/27/21 04/28/21 04/29/21 23:59 23:59 23:59 Intake Total 1580 / 1580 900 / 1200 300 / 300 Output Total 3550 / 3550 2050 / 2600 550 / 550 Balance -1970 / -1970 -1150 / -1400 -250 / -250 Lab / Micro Data Result Diagrams: 04/27/21 06:30 04/29/21 05:00 Labs: Laboratory Results - last 24 hr 04/28/21 10:51: POC Glucose 213 H 04/28/21 16:47: POC Glucose 169 H 04/28/21 21:16: POC Glucose 219 H 04/29/21 05:00: Sodium 138, Potassium 3.5, Chloride 106, Carbon Dioxide 25.0, Anion Gap 7, BUN 18, Creatinine 0.77, Estim Creat Clear Calc 70.97, Est GFR (MDRD) Af Amer 129, Est GFR (MDRD) Non-Af 107, BUN/Creatinine Ratio 23.5 H, Glucose 155 H, Calcium 8.6 04/29/21 06:48: POC Glucose 153 H Cardiology Labs/Tests 04/29/21 05:00: Sodium 138, Potassium 3.5, Chloride 106, Carbon Dioxide 25.0, Anion Gap 7, BUN 18, Creatinine 0.77, Est GFR (MDRD) Af Amer 129, Est GFR (MDRD) Non-Af 107, BUN/Creatinine Ratio 23.5 H, Glucose 155 H, Calcium 8.6 Rhythm: EKG: ECHO: Stress Test: Cardiac Cath: PCI: CT Surgery: Holter monitor: EPS: PPM: CXR: Chest CT Scan: Physical Exam Const alert, oriented x3 and no apparent distress General Appearance: cooperative HEENT hearing grossly normal bilaterally Head and Scalp: atraumatic Eyes EOMs intact bilaterally Neck General: normal visual inspection Chest inspection of chest normal and palpation of chest normal Resp normal respiratory effort Auscultation: clear to auscultation bilaterally Cardio regular rate, regular rhythm, S1 normal heart sound and S2 normal heart sound Jugular Venous Distention: JVD GI normal to inspection, nondistended, normoactive bowel sounds Extremity normal capillary refill and no pedal edema Peripheral Pulses: Yes pulses 2+ throughout and femoral pulses present Skin no rashes or lesions noted Neuro oriented x3 and CN's II-XII intact bilaterally Psych Appearance: grossly normal and appropriate Assessment & Plan Assessment/Plan (1) History of coronary artery stent placement: PLAN: He is status post multiple coronary artery stenting procedures. He underwent coronary angiogram today which demonstrated patency of his left main stent, the left anterior descending artery stent is also patent, and his proximal left circumflex artery is patent with mild haziness. The mid circumflex artery is totally occluded with a large first obtuse marginal branch and left to right collaterals. His right coronary artery as you know is previously occluded. We will continue to manage him with aggressive medical therapy. (2) H/O coronary artery bypass surgery: PLAN: He is status post coronary artery bypass surgery as noted previ ously. His bypass grafts are all occluded. (3) Chronic combined systolic and diastolic CHF (congestive heart failure): PLAN: He does have evidence of left ventricular systolic dysfunction with combined systolic and diastolic heart failure. * He appears to be on appropriate medical therapy with carvedilol 25 mg twice a day * With his size there may actually be a chance to increase this to 37.5 mg twice a day this can be done as an outpatient * Continue Lasix at the current dose 40 mg twice a day * Continue Entresto * We will add spironolactone 25 mg a day * He can probably be discharged for outpatient follow-up. Due to his left ventricular systolic dysfunction estimated EF 25 to 30% I would recommend that he be considered for an ICD after appropriate medical therapy has been optimized. * * Thank you for allowing me to participate in the care of your patient. Please don't hesitate to call if any issues arise.
[2021-04-29] MEDS: 0.9% Normal Saline 1,000 ML 60 ML IV (09:06)
[2021-04-29] MEDS: Amantadine 100 MG Capsule PO (09:07)
[2021-04-29] MEDS: Furosemide 40 MG Tablet PO (09:07)
[2021-04-29] MEDS: Spironolactone 25 MG Tablet PO (09:13)
[2021-04-29] MEDS: Pantoprazole Sodium 40 MG Tablet PO (09:13)
[2021-04-29] MEDS: Senna/Docusate Sodium 1 Tablet PO (09:13)
[2021-04-29] MEDS: Enoxaparin 40 MG/0.4 ML Syringe SC (09:14)
[2021-04-29] MEDS: FLUoxetine 20 MG Capsule 60 MG PO (09:14)
--- NOTE | 2021-04-29 09:19 | CL.D_ITS ---
Patient Name: FABY GARCIA Study Date: 04/29/2021 Performing: Prashanth Peña MD Ht: 70.07 inches 178 cm : 1950 Wt: 295.42 lbs 134 kg Age: 70 Gender: male BSA: 2.47 PROCEDURE(S) PERFORMED [id number] CLINICAL PROFILE AND INDICATIONS Indications: Suspected CAD Heart Failure: NYHA Class: 3, Newly Diagnosed: No, Heart Failure Type: Systolic Stress/Imaging Stress/Image Study Performed: No CONCLUSIONS Cardiomyopathy: Congestive Severe triple-vessel disease with known lovelock bypass grafts which are all occluded Left main coronary artery stent and left anterior descending artery stents are patent Proximal left circumflex artery stent is patent with mild haziness but essentially better than previo us evaluation Mid left circumflex artery is totally occluded with left to left collaterals Totally occluded right coronary artery with [id number] collaterals RECOMMENDATIONS Would recommend maximal medical therapy with a view to ICD placement DESCRIPTION OF PROCEDURE The patient arrived to the procedure lab. The risks and benefits of the procedure as well as a full d escription of our services here and current unavailability of surgical backup were fully explained to the patient and/or their significant other prior to the catheterization. The Timeout was completed, verifying the correct patient and procedure. The patient's procedural site was prepped and draped in the usual fashion. Local anesthetic was given subcutaneously to right radial region with Lidocaine 2% . Using a modified Seldinger technique, arterial access was obtained via the right radial artery, a 6 Fr sheath was inserted. Right Coronary Artery selective angiography was then performed in multiple v iews using a 5 Fr. 4.0 [place] catheter. Left Coronary Artery selective angiography was performed in mu ltiple views using a 5 Fr. 4.0 [place] catheter. Left Ventriculography was performed in TYRONE projection using a 5 Fr. Pigtail catheter. LV to AO pullback pressures were then recorded.The arterial sheath was pulled and a TR Band was applied for hemostasis. Sheath flushed prior to removal. 12cc air inserted. CORONARY ANGIOGRAPHY DOMINANCE: Right Dominant LEFT HEART ASSESSMENT Left Ventricular Ejection Fraction: by LV Gram 25 % Inferior Basal Akinesis. Inferior Mid Hypokinesis - Severe. Anterior Hypokinesis - Moderate LEFT MAIN: Previously placed stent is patent LEFT ANTERIOR DESCENDING ARTERY: OSTIAL LAD: Previously placed stent is patent PROX LAD: Previously placed stent is patent MID LAD: Previously placed stent is patent DISTAL LAD: Mild luminal irregularities less than 30% CIRCUMFLEX ARTERY: OSTIAL CIRC: Instent restenosis 40 % MID CIRC: is occluded OM 1: Proximal - Mild luminal irregularities less than 30% RIGHT CORONARY ARTERY: PROX RCA: Previously placed stent is occluded COLLATERAL FLOW: Collateral flow from Left to Right Collateral flow from Left to Left COMPLICATIONS No Complications PROCEDURE MEDICATIONS Fentanyl 50 mcg IV Versed 1 mg IV Oxygen: 2 L/min via nasal cannula SUMMARY OF HEMODYNAMIC DATA Time AIR REST ECG 08:05:45 AO 105/52 (72) SA 08:23:46 LV 112/10, 17 08:31:52 LV 118/8, 0 08:31:58 LV 113/6, 12 08:32:46 LV 115/7, 18 08:32:52 LVp 117/11, 24 08:32:57 AOp 117/55 (78) 08:33:02 RM AIR REST 08:42:50 Signed By Prashanth Peña MD On 04/29/2021 9:18:44 AM Prashanth Peña MD
--- NOTE | 2021-04-29 10:02 | CASEMGMT ---
CONTRERAS notified Erika at [facility] that patient will be returning today. She thanked CONTRERAS for letting her know. Nydia MADDEN
--- NOTE | 2021-04-29 10:34 | TREXTCAR_ITS ---
Documented by User: Ramesh MARIE 04/29/21 10:45 Diet 04/29/21 09:03 Diet: Cardiac: Calorie-Controlled How many daily calories?: 1800 calorie Restrict fluids to 1500 cc's/day. Routine Orders/Code Status Code Status: DNRCC-A Wound(s) RT CALF: Wound Type: Pressure Injury RT HAND: Wound Type: Skin Tear Dressing Change: Adaptic RT FA: Wound Type: Skin Tear Dressing Change: Adaptic UNDER RT GREAT TOE: Wound Type: Abrasion KIKO BUTTOCKS: Wound Type: redness with small sheared areas Therapies Physical Therapy: Eval and Treat Occupational Therapy: Eval and Treat Problem/Diagnosis (1) History of coronary artery stent placement: Status: Resolved Comment: KQS-AOS-Tmio LAD w/ 3.0 x 9 mm Resolute Stent 02/20/17; Rotational Atherectomy and [place]ROE- Mid LAD w/ 2.5 x 38 mm Xience Arielle Stent and [place]E-Prox LAD w/ 3 x 28 mm Xience Arielle Stent, RQT-RPS-Wixhtu LCx w/ 4 x 8 mm Xience Arielle, PCI- Rotational Atherectomy and [place]ROE-Distal LMT w/ 3.25 x 33 mm Xience Arielle Stent (2) H/O coronary artery bypass surgery: Status: Resolved Comment: CABG x 3 Radial Artery-LAD, SVG-RCA, SVG-OM2 (3) Chronic combined systolic and diastolic CHF (congestive heart failure): Status: Chronic Allergies/Procedures Done in Hospital Allergies atorvastatin Allergy (Verified 04/25/21 21:27) PT UNSURE OF REACTION cilostazol Allergy (Verified 04/25/21 21:27) Hives colestipol Allergy (Verified 04/25/21 21:27) Hives diltiazem Allergy (Verified 04/25/21 21:27) Hives gemfibrozil Allergy (Verified 04/25/21 21:27) Hives naproxen [From Naprosyn] Allergy (Verified 04/25/21 21:27) Hives niacin Allergy (Verified 04/25/21 21:27) PT UNSURE OF REACTION Nitrate Analogues Allergy (Verified 04/25/21 21:27) Hives Penicillins Allergy (Verified 04/25/21 21:27) Hives pravastatin Allergy (Verified 04/25/21 21:27) NEEDS FOLLOW-UP procainamide Allergy (Verified 04/25/21 21:27) Hives procaine Allergy (Verified 04/25/21 21:27) NEEDS FOLLOW-UP rosuvastatin Allergy (Verified 04/25/21 21:27) Hives simvastatin Allergy (Verified 04/25/21 21:27) Hives isosorbide Adverse Reaction (Severe, Verified 04/25/21 21:27) Unknown Type of Care/Length of Stay Estimated LOS: More Than 30 Days Type of Care Needed: Intermediate Rehab Potential: Fair Prognosis: Fair Additional Orders/Day of Discharge Day of Discharge: 04/29/21 Dietary and Speech Recommendations Dietitian Recommendations/Changes: Continue cardiac, 1800 calorie controlled diet. Recommend fluid restriction as indicated. Will d/c 120mL Glucerna TID- not indicated at this time. Restrict fluids to 1500cc's/daily. Discharge Plan Admission Admit Date/Time: 04/25/21 22:39 Primary Reason for Your Visit: Heart failure exacerbation. Attending Provider: Clyde Mathews Primary Care Provider: Phillip Lindo Consulting Providers: Shannon Estrada ; Tyree Bridges Discharge Orders/Prescriptions Prescriptions: New spironolactone 25 mg tablet 25 mg PO DAILY Qty: 30 RF: 0 Continued Entresto 24-26 mg tablet 1 tab PO BID RF: 0 amantadine HCl 100 MG capsule 100 mg PO DAILY RF: 0 pravastatin 80 MG tablet 80 mg PO QHS RF: 0 pantoprazole 40 MG tablet 40 mg PO DAILY RF: 0 pramipexole 0.25 MG tablet 0.25 mg PO QHS RF: 0 nitroglycerin 0.4 MG tablet, sublingual 0.4 mg sublingual PRN PRN (Reason: CHEST PAIN) RF: 0 fluoxetine 20 MG capsule 60 mg PO DAILY RF: 0 aspirin 81 MG tablet,chewable 81 mg PO DAILY@0800 RF: 0 acetaminophen 500 MG tablet 1,000 mg PO Q6H PRN PRN (Reason: Mild Pain (1-3)) RF: 0 bisacodyl 10 MG suppository 10 mg RC DAILY PRN PRN (Reason: Constipation) RF: 0 oxycodone 5 MG tablet 5 mg PO Q6H PRN PRN (Reason: Pain Or Fever) RF: 0 insulin aspart U-100 [Novolog Flexpen U-100 Insulin] 100 UNITS/ML insulin pen See Protocol units SC TIDCM RF: 0 sennosides-docusate sodium 1 EACH tablet 2 ea PO BID RF: 0 melatonin 3 MG tablet,disintegrating 3 mg PO QHS RF: 0 tamsulosin 0.4 mg Capsule 0.4 mg PO QHS RF: 0 fluticasone propionate 110 mcg/actuation Hfa Aerosol Inhaler 1 puff INHALATION BID RF: 0 insulin aspart U-100 [Novolog Flexpen U-100 Insulin] 100 unit/mL (3 mL) Insulin Pen 12 unit SUBCUT TID RF: 0 Brilinta 90 mg Tablet 90 mg PO BID RF: 0 menthol-zinc oxide 1 APPLIC ointment 1 applic TOPICAL 0600,2200 RF: 0 furosemide 40 mg tablet 40 mg PO BID Qty: 0 RF: 0 carvedilol 25 mg Tablet 25 mg PO BID Qty: 0 RF: 0 potassium chloride 20 mEq tablet,ER particles/crystals 40 meq PO DAILY 90 Days Qty: 90 RF: 0 Lantus Solostar U-100 Insulin 100 unit/mL (3 mL) Insulin Pen 18 unit SUBCUT QPM RF: 0 Referrals / Follow Up: Prashanth Peña MD [STAFF PHYSICIAN] - Within 2 Weeks Phillip Lindo MD [Primary Care Provider] - Within 2 Weeks Disposition Disposition (needs filled in before D/C Order can be placed): NonSkilled NH/Intermed Care Documented by User: Dr. Clyde Mathews MD 04/29/21 11:30 Allergies/Procedures Done in Hospital Allergies atorvastatin Allergy (Verified 04/25/21 21:27) PT UNSURE OF REACTION cilostazol Allergy (Verified 04/25/21 21:27) Hives colestipol Allergy (Verified 04/25/21 21:27) Hives diltiazem Allergy (Verified 04/25/21 21:27) Hives gemfibrozil Allergy (Verified 04/25/21 21:27) Hives naproxen [From Naprosyn] Allergy (Verified 04/25/21 21:27) Hives niacin Allergy (Verified 04/25/21 21:27) PT UNSURE OF REACTION Nitrate Analogues Allergy (Verified 04/25/21 21:27) Hives Penicillins Allergy (Verified 04/25/21 21:27) Hives pravastatin Allergy (Verified 04/25/21 21:27) NEEDS FOLLOW-UP procainamide Allergy (Verified 04/25/21 21:27) Hives procaine Allergy (Verified 04/25/21 21:27) NEEDS FOLLOW-UP rosuvastatin Allergy (Verified 04/25/21 21:27) Hives simvastatin Allergy (Verified 04/25/21 21:27) Hives isosorbide Adverse Reaction (Severe, Verified 04/25/21 21:27) Unknown Discharge Plan Admission Admit Date/Time: 04/25/21 22:39 Primary Reason for Your Visit: Heart failure exacerbation. Attending Provider: Clyde Mathews Primary Care Provider: Phillip Lindo Consulting Providers: Shannon Estrada ; Tyree Bridges Discharge Orders/Prescriptions Prescriptions: New spironolactone 25 mg tablet 25 mg PO DAILY Qty: 30 RF: 0 Continued Entresto 24-26 mg tablet 1 tab PO BID RF: 0 amantadine HCl 100 MG capsule 100 mg PO DAILY RF: 0 pravastatin 80 MG tablet 80 mg PO QHS RF: 0 pantoprazole 40 MG tablet 40 mg PO DAILY RF: 0 pramipexole 0.25 MG tablet 0.25 mg PO QHS RF: 0 nitroglycerin 0.4 MG tablet, sublingual 0.4 mg sublingual PRN PRN (Reason: CHEST PAIN) RF: 0 fluoxetine 20 MG capsule 60 mg PO DAILY RF: 0 aspirin 81 MG tablet,chewable 81 mg PO DAILY@0800 RF: 0 acetaminophen 500 MG tablet 1,000 mg PO Q6H PRN PRN (Reason: Mild Pain (1-08/15)) RF: 0 bisacodyl 10 MG suppository 10 mg RC DAILY PRN PRN (Reason: Constipation) RF: 0 oxycodone 5 MG tablet 5 mg PO Q6H PRN PRN (Reason: Pain Or Fever) RF: 0 insulin aspart U-100 [Novolog Flexpen U-100 Insulin] 100 UNITS/ML insulin pen See Protocol units SC TIDCM RF: 0 sennosides-docusate sodium 1 EACH tablet 2 ea PO BID RF: 0 melatonin 3 MG tablet,disintegrating 3 mg PO QHS RF: 0 tamsulosin 0.4 mg Capsule 0.4 mg PO QHS RF: 0 fluticasone propionate 110 mcg/actuation Hfa Aerosol Inhaler 1 puff INHALATION BID RF: 0 insulin aspart U-100 [Novolog Flexpen U-100 Insulin] 100 unit/mL (3 mL) Insulin Pen 12 unit SUBCUT TID RF: 0 Brilinta 90 mg Tablet 90 mg PO BID RF: 0 menthol-zinc oxide 1 APPLIC ointment 1 applic TOPICAL 0600,2200 RF: 0 furosemide 40 mg tablet 40 mg PO BID Qty: 0 RF: 0 carvedilol 25 mg Tablet 25 mg PO BID Qty: 0 RF: 0 potassium chloride 20 mEq tablet,ER particles/crystals 40 meq PO DAILY 90 Days Qty: 90 RF: 0 Lantus Solostar U-100 Insulin 100 unit/mL (3 mL) Insulin Pen 18 unit SUBCUT QPM RF: 0 Referrals / Follow Up: Prashanth Peña MD [STAFF PHYSICIAN] - Within 2 Weeks Phillip Lindo MD [Primary Care Provider] - Within 2 Weeks Disposition Disposition (needs filled in before D/C Order can be placed): NonSkilled NH/Intermed Care
--- NOTE | 2021-04-29 10:53 | PHA.DC.MR ---
Pharmacy Service has performed discharge medication reconciliation for this patient. The patient's discharge medication list was reviewed for discrepancies and discrepancies were resolved. Home Medications amantadine HCl 100 mg PO DAILY 04/17/18 pantoprazole 40 mg PO DAILY 04/17/18 pramipexole 0.25 mg PO QHS 04/17/18 pravastatin 80 mg PO QHS 04/17/18 fluoxetine 60 mg PO DAILY 02/20/19 nitroglycerin 0.4 mg SUBLINGUAL PRN PRN 02/20/19 aspirin 81 mg PO DAILY@0800 02/24/19 acetaminophen 1,000 mg PO Q6H PRN PRN tab 03/03/19 bisacodyl 10 mg RC DAILY PRN PRN 09/14/19 insulin aspart U-100 [Novolog Flexpen U-100 Insulin] See Protocol SC TIDCM 09/14/19 oxycodone 5 mg PO Q6H PRN PRN 09/14/19 sennosides-docusate sodium 2 ea PO BID 01/02/20 melatonin 3 mg PO QHS 09/14/20 sacubitril 24 mg-valsartan 26 mg tablet 1 tab PO BID 10/10/20 Brilinta 90 mg PO BID 02/17/21 fluticasone propionate 1 puff INHALATION BID 02/17/21 insulin aspart U-100 [Novolog Flexpen U-100 Insulin] 12 unit SUBCUT TID 02/17/21 menthol-zinc oxide 1 applic TOPICAL 0600,2200 02/17/21 tamsulosin 0.4 mg PO QHS 02/17/21 furosemide 40 mg PO BID #0 tab 02/18/21 carvedilol 25 mg PO BID #0 tab 02/20/21 potassium chloride 40 meq PO DAILY 90 Days #90 tab 02/20/21 Lantus Solostar U-100 Insulin 18 unit SUBCUT QPM 04/25/21 spironolactone 25 mg PO DAILY #30 tab 04/29/21
--- NOTE | 2021-04-29 11:46 | CASEMGMT ---
CONTRERAS arranged for patient to get picked up at 1300 via cot. CONTRERAS faxed orders to [facility] and wrote on fax face sheet that patient will be picked up at 1300. CONTRERAS notified RN, medical secretary teacher, patient, his , and Willyko at [facility]. All in agreement with d/c plan. Plan: d/c back to [facility] under intermediate level of care. [facility] transported via cot. Nydia MADDEN
--- NOTE | 2021-04-29 11:59 | WOUNDNOTE ---
Colostomy appliance remains intact to the left abdomen. small amount of formed brown stool noted. appliance changed 04/26/21. pt returning to the care home today.
--- NOTE | 2021-04-29 12:24 | NURSING ---
This RN called and gave report to CAMILA Casanova at [facility].
--- NOTE | 2021-04-29 12:40 | DS.PCM_ITS ---
Documented by User: Ramesh MARIE 04/29/21 12:56 Providers Date of Admission: 04/25/21 Primary Care Physician: Dr. Phillip Lindo MD Consultations 04/25/21 23:49 Consult: Cardiology Routine Consulting Provider: Shannon Estrada Reason for Consult: Resp failure, CHF exac, repeat admissions, BIPAP EMERGENT Consult: No MD Notified: Yes Date Notified: 04/25/21 Time Notified: 22:42 Method of Notification: cortext Consult: Media Marketing Director / Pulmonary Medicine Routine Consulting Provider: Tyree Bridges Reason for Consult: Resp failure, CHF exac, BIPAP EMERGENT Consult: No MD Notified: Yes Date Notified: 04/25/21 Time Notified: 22:41 Method of Notification: cortext 04/26/21 00:50 Consult: Onc/Wound/identity access management architect Routine Comment: Reason for Consult:: ileostomy, skin tears, pressure wounds Reason For Visit: ACUTE RESP FAILURE, CHF EXACERBATION Diagnosis Discharge Diagnosis (1) History of coronary artery stent placement: Status: Resolved Code(s): Z95.5 - Presence of coronary angioplasty implant and graft (2) H/O coronary artery bypass surgery: Status: Resolved Code(s): Z95.1 - Presence of aortocoronary bypass graft (3) Chronic combined systolic and diastolic CHF (congestive heart failure): Status: Chronic Code(s): I50.42 - Chronic combined systolic (congestive) and diastolic (congestive) heart failure Medications at Discharge Home Medications amantadine HCl 100 mg PO DAILY 04/17/18 pantoprazole 40 mg PO DAILY 04/17/18 pramipexole 0.25 mg PO QHS 04/17/18 pravastatin 80 mg PO QHS 04/17/18 fluoxetine 60 mg PO DAILY 02/20/19 nitroglycerin 0.4 mg SUBLINGUAL PRN PRN 02/20/19 aspirin 81 mg PO DAILY@0800 02/24/19 acetaminophen 1,000 mg PO Q6H PRN PRN tab 03/03/19 bisacodyl 10 mg RC DAILY PRN PRN 09/14/19 insulin aspart U-100 [Novolog Flexpen U-100 Insulin] See Protocol SC TIDCM 09/14/19 oxycodone 5 mg PO Q6H PRN PRN 04/08/20 sennosides-docusate sodium 2 ea PO BID 01/02/20 melatonin 3 mg PO QHS 09/14/20 sacubitril 24 mg-valsartan 26 mg tablet 1 tab PO BID 10/10/20 Brilinta 90 mg PO BID 02/17/21 fluticasone propionate 1 puff INHALATION BID 02/17/21 insulin aspart U-100 [Novolog Flexpen U-100 Insulin] 12 unit SUBCUT TID 02/17/21 menthol-zinc oxide 1 applic TOPICAL 0600,2200 02/17/21 tamsulosin 0.4 mg PO QHS 02/17/21 furosemide 40 mg PO BID #0 tab 02/18/21 carvedilol 25 mg PO BID #0 tab 02/20/21 potassium chloride 40 meq PO DAILY 90 Days #90 tab 02/20/21 Lantus Solostar U-100 Insulin 18 unit SUBCUT QPM 04/25/21 spironolactone 25 mg PO DAILY #30 tab 04/29/21 Hospital Course Procedures 2-D Echocardiogram, Cardiac catheterization and Transthoracic echo Summary of Care Provided Minutes Spent on Discharge: 35 Hospital Course: Patient is a 70-year-old male who was admitted to the hospital on 04/25/2021 for management of acute encephalopathy and hypoxic respiratory failure secondary to acute decompensated combined CHF. Patient was initially admitted to ICU for management with cardiology and retail advisor consult. And was initiated on IV Lasix. Patient was transferred to PCU on 04/26/2021 and was continued on diuretics with supplemental oxygen. Echocardiogram was obtained and demonstrated EF of 25 to 30% with severe left ventricular systolic dysfunction and severe left ventricular hypokinesia. This was a significant change from prior study completed in January 2021 where EF was 55%. Cardiac catheterization was obtained and results are noted as above. Recommendations are to continue with medical management as well as add spironolactone 25 mg p.o. daily. Patient is to meet with cardiology as an outpatient within the next 2 weeks for discussion of further adjustment to medications as well as possible ICD placement when medical therapy has been optimized. Patient is to discharge to [facility] for ongoing therapy needs and is to follow-up with primary care provider within the next 2 weeks. Patient seen by Ramesh Kay PA-C, under the supervision of Dr. Mathews. Weight / BMI Weight Weight: 295 lb 6.711 oz Body Mass Index (BMI) 44.1 ABG / Lab / Microbiology Data Result Diagrams: 04/27/21 06:30 04/29/21 05:00 Laboratory: Laboratory Results - last 24 hr 04/28/21 16:47: POC Glucose 169 H 04/28/21 21:16: POC Glucose 219 H 04/29/21 05:00: Sodium 138, Potassium 3.5, Chloride 106, Carbon Dioxide 25.0, Anion Gap 7, BUN 18, Creatinine 0.77, Estim Creat Clear Calc 70.97, Est GFR (MDRD) Af Amer 129, Est GFR (MDRD) Non-Af 107, BUN/Creatinine Ratio 23.5 H, Glucose 155 H, Calcium 8.6 04/29/21 06:48: POC Glucose 153 H Microbiology: Microbiology 04/29/21 09:25 Nasal Secretion SARS-CoV-2 Antigen (Rapid) - Final 04/25/21 22:58 Mucosa - Nose Respiratory Panel (PCR) - Final 04/25/21 21:30 Nasal Secretion SARS-CoV-2 Antigen (Rapid) - Final Meaningful Use Info Meaningful Use Diagnoses (Choose all that apply): CHF CHF DANII/ARB ordered at discharge?: Yes Documented LVEF (%): 25 Discharge Plan Admission Admit Date/Time: 04/25/21 22:39 Primary Reason for Your Visit: Heart failure exacerbation. Attending Provider: Clyde Mathews Primary Care Provider: Phillip Lindo Consulting Providers: Shannon Estrada ; Tyree Bridges Instructions Additional Instructions / Restrictions: Patient Problems: Altered Health Status related to Hospitalization Patient Goals: *Optimal Level of Health *Keep Appointments *Medication Compliance *Remain Safe Discharge Orders/Prescriptions Prescriptions: New spironolactone 25 mg tablet 25 mg PO DAILY Qty: 30 RF: 0 Continued Entresto 24-26 mg tablet 1 tab PO BID RF: 0 amantadine HCl 100 MG capsule 100 mg PO DAILY RF: 0 pravastatin 80 MG tablet 80 mg PO QHS RF: 0 pantoprazole 40 MG tablet 40 mg PO DAILY RF: 0 pramipexole 0.25 MG tablet 0.25 mg PO QHS RF: 0 nitroglycerin 0.4 MG tablet, sublingual 0.4 mg sublingual PRN PRN (Reason: CHEST PAIN) RF: 0 fluoxetine 20 MG capsule 60 mg PO DAILY RF: 0 aspirin 81 MG tablet,chewable 81 mg PO DAILY@0800 RF: 0 acetaminophen 500 MG tablet 1,000 mg PO Q6H PRN PRN (Reason: Mild Pain (-08/15)) RF: 0 bisacodyl 10 MG suppository 10 mg RC DAILY PRN PRN (Reason: Constipation) RF: 0 oxycodone 5 MG tablet 5 mg PO Q6H PRN PRN (Reason: Pain Or Fever) RF: 0 insulin aspart U-100 [Novolog Flexpen U-100 Insulin] 100 UNITS/ML insulin pen See Protocol units SC TIDCM RF: 0 sennosides-docusate sodium 1 EACH tablet 2 ea PO BID RF: 0 melatonin 3 MG tablet,disintegrating 3 mg PO QHS RF: 0 tamsulosin 0.4 mg Capsule 0.4 mg PO QHS RF: 0 fluticasone propionate 110 mcg/actuation Hfa Aerosol Inhaler 1 puff INHALATION BID RF: 0 insulin aspart U-100 [Novolog Flexpen U-100 Insulin] 100 unit/mL (3 mL) Insulin Pen 12 unit SUBCUT TID RF: 0 Brilinta 90 mg Tablet 90 mg PO BID RF: 0 menthol-zinc oxide 1 APPLIC ointment 1 applic TOPICAL 0600,2200 RF: 0 furosemide 40 mg tablet 40 mg PO BID Qty: 0 RF: 0 carvedilol 25 mg Tablet 25 mg PO BID Qty: 0 RF: 0 potassium chloride 20 mEq tablet,ER particles/crystals 40 meq PO DAILY 90 Days Qty: 90 RF: 0 Lantus Solostar U-100 Insulin 100 unit/mL (3 mL) Insulin Pen 18 unit SUBCUT QPM RF: 0 Referrals / Follow Up: Prashanth Peña MD [STAFF PHYSICIAN] - Within 2 Weeks Phillip Lindo MD [Primary Care Provider] - Within 2 Weeks Disposition Disposition (needs filled in before D/C Order can be placed): NonSkilled NH/Intermed Care Documented by User: Dr. Clyde Mathews MD 04/29/21 16:35 Providers Date of Admission: 04/25/21 Reason For Visit: ACUTE RESP FAILURE, CHF EXACERBATION Medications at Discharge Home Medications amantadine HCl 100 mg PO DAILY 04/17/18 pantoprazole 40 mg PO DAILY 04/17/18 pramipexole 0.25 mg PO QHS 04/17/18 pravastatin 80 mg PO QHS 04/17/18 fluoxetine 60 mg PO DAILY 02/20/19 nitroglycerin 0.4 mg SUBLINGUAL PRN PRN 02/20/19 aspirin 81 mg PO DAILY@0800 02/24/19 acetaminophen 1,000 mg PO Q6H PRN PRN tab 03/03/19 bisacodyl 10 mg RC DAILY PRN PRN 09/14/19 insulin aspart U-100 [Novolog Flexpen U-100 Insulin] See Protocol SC TIDCM 01/25 oxycodone 5 mg PO Q6H PRN PRN 09/14/19 sennosides-docusate sodium 2 ea PO BID 01/02/20 melatonin 3 mg PO QHS 09/14/20 sacubitril 24 mg-valsartan 26 mg tablet 1 tab PO BID 10/10/20 Brilinta 90 mg PO BID 02/17/21 fluticasone propionate 1 puff INHALATION BID 02/17/21 insulin aspart U-100 [Novolog Flexpen U-100 Insulin] 12 unit SUBCUT TID 02/17/21 menthol-zinc oxide 1 applic TOPICAL 0600,2200 02/17/21 tamsulosin 0.4 mg PO QHS 02/17/21 furosemide 40 mg PO BID #0 tab 02/18/21 carvedilol 25 mg PO BID #0 tab 02/20/21 potassium chloride 40 meq PO DAILY 90 Days #90 tab 02/20/21 Lantus Solostar U-100 Insulin 18 unit SUBCUT QPM 04/25/21 spironolactone 25 mg PO DAILY #30 tab 04/29/21 ABG / Lab / Microbiology Data Result Diagrams: 04/27/21 06:30 04/29/21 05:00 Discharge Plan Admission Admit Date/Time: 04/25/21 22:39 Primary Reason for Your Visit: Heart failure exacerbation. Attending Provider: Clyde Mathews Primary Care Provider: Phillip Lindo Consulting Providers: Shannon Estrada ; Tyree Bridges Instructions Additional Instructions / Restrictions: Patient Problems: Altered Health Status related to Hospitalization Patient Goals: *Optimal Level of Health *Keep Appointments *Medication Compliance *Remain Safe Discharge Orders/Prescriptions Prescriptions: New spironolactone 25 mg tablet 25 mg PO DAILY Qty: 30 RF: 0 Continued Entresto 24-26 mg tablet 1 tab PO BID RF: 0 amantadine HCl 100 MG capsule 100 mg PO DAILY RF: 0 pravastatin 80 MG tablet 80 mg PO QHS RF: 0 pantoprazole 40 MG tablet 40 mg PO DAILY RF: 0 pramipexole 0.25 MG tablet 0.25 mg PO QHS RF: 0 nitroglycerin 0.4 MG tablet, sublingual 0.4 mg sublingual PRN PRN (Reason: CHEST PAIN) RF: 0 fluoxetine 20 MG capsule 60 mg PO DAILY RF: 0 aspirin 81 MG tablet,chewable 81 mg PO DAILY@0800 RF: 0 acetaminophen 500 MG tablet 1,000 mg PO Q6H PRN PRN (Reason: Mild Pain (-08/15)) RF: 0 bisacodyl 10 MG suppository 10 mg RC DAILY PRN PRN (Reason: Constipation) RF: 0 oxycodone 5 MG tablet 5 mg PO Q6H PRN PRN (Reason: Pain Or Fever) RF: 0 insulin aspart U-100 [Novolog Flexpen U-100 Insulin] 100 UNITS/ML insulin pen See Protocol units SC TIDCM RF: 0 sennosides-docusate sodium 1 EACH tablet 2 ea PO BID RF: 0 melatonin 3 MG tablet,disintegrating 3 mg PO QHS RF: 0 tamsulosin 0.4 mg Capsule 0.4 mg PO QHS RF: 0 fluticasone propionate 110 mcg/actuation Hfa Aerosol Inhaler 1 puff INHALATION BID RF: 0 insulin aspart U-100 [Novolog Flexpen U-100 Insulin] 100 unit/mL (3 mL) Insulin Pen 12 unit SUBCUT TID RF: 0 Brilinta 90 mg Tablet 90 mg PO BID RF: 0 menthol-zinc oxide 1 APPLIC ointment 1 applic TOPICAL 0600,2200 RF: 0 furosemide 40 mg tablet 40 mg PO BID Qty: 0 RF: 0 carvedilol 25 mg Tablet 25 mg PO BID Qty: 0 RF: 0 potassium chloride 20 mEq tablet,ER particles/crystals 40 meq PO DAILY 90 Days Qty: 90 RF: 0 Lantus Solostar U-100 Insulin 100 unit/mL (3 mL) Insulin Pen 18 unit SUBCUT QPM RF: 0 Referrals / Follow Up: Prashanth Peña MD [STAFF PHYSICIAN] - Within 2 Weeks Phillip Lindo MD [Primary Care Provider] - Within 2 Weeks Disposition Disposition (needs filled in before D/C Order can be placed): NonSkilled NH/Intermed Care Charges/Coding Addendum Addendum: Dr. Mathews: I personally reviewed the chart and examined the patient, and agree with the above findings. 70-year-old male with a history of stroke with right-sided weakness presents to the hospital with acute encephalopathy secondary to acute on chronic hypoxic respiratory failure due to acute on chronic combined diastolic and systolic CHF. Cardiology was consulted to help assist with management. They performed a heart cath today on 04/29/2021 and recommended medical management. Aldactone was added and his potassium was discontinued, EF was 25 to 30% and the recommending outpatient ICD evaluation. His acute encephalopathy resolved and he is maintaining his oxygen saturations on 2 L nasal cannula. I discussed with him and his the possibility of discharge today [facility] to [facility], they expressed understanding of the risk and benefits of discharge and would like to be discharged today to the [facility]. Visit Charges Inpatient E&M: 92407 Disch Hosp
== END 2021-04-29 13:21 | disposition intermediate care facility (04) | DRG 286 ==
LOC: ED 22:44 → ICU 23:05 → PCU 04-26 17:45
PROVIDERS: Admitting Provider Family Medicine; Emergency Provider Emergency Medicine; PCP Family Medicine; Visit Provider Family Medicine
DX: I11.0 Hypertensive heart disease with heart failure (principal); I50.43 Acute on chronic combined systolic (congestive) and diastolic (congestive) heart failure; J96.21 Acute and chronic respiratory failure with hypoxia; I25.810 Atherosclerosis of coronary artery bypass graft(s) without angina pectoris; I69.351 Hemiplegia and hemiparesis following cerebral infarction affecting right dominant side; Z68.41 Body mass index [BMI] 40.0-44.9, adult; J44.1 Chronic obstructive pulmonary disease with (acute) exacerbation; I25.82 Chronic total occlusion of coronary artery; I25.10 Atherosclerotic heart disease of native coronary artery without angina pectoris; I25.5 Ischemic cardiomyopathy; E11.65 Type 2 diabetes mellitus with hyperglycemia; Z20.822 Contact with and (suspected) exposure to COVID-19; E78.5 Hyperlipidemia, unspecified; R13.10 Dysphagia, unspecified; K21.00 Gastro-esophageal reflux disease with esophagitis, without bleeding; N40.0 Benign prostatic hyperplasia without lower urinary tract symptoms; G25.81 Restless legs syndrome; G47.33 Obstructive sleep apnea (adult) (pediatric); F32.A Depression, unspecified; F41.9 Anxiety disorder, unspecified; E66.01 Morbid (severe) obesity due to excess calories; F17.210 Nicotine dependence, cigarettes, uncomplicated; Z93.3 Colostomy status; Z79.4 Long term (current) use of insulin; Z79.02 Long term (current) use of antithrombotics/antiplatelets; Z79.82 Long term (current) use of aspirin; Z79.899 Other long term (current) drug therapy; I25.2 Old myocardial infarction; Z86.73 Personal history of transient ischemic attack (TIA), and cerebral infarction without residual deficits; Z87.440 Personal history of urinary (tract) infections; Z95.5 Presence of coronary angioplasty implant and graft
CPT/HCPCS: 36415; 36600; 71045; 80048; 80053; 82803; 82962; 83605; 83735; 83880; 84145; 84439; 84443; 84484; 85025; 87426; 87633; 93005; 93308; 93458; 94002; 94003; 94640; 97110; 97162; 97166; 97530; 97802; 99152; 99153; 99251; 99285; J7030; Q9957; Q9967; A4216; C1769; C1894; C8924; G0463; J1940; J3490

== ENCOUNTER → 2021-05-08 05:00 | Outpatient (REF) | payer MEDICARE, MEDICAID, SELFPAY ==
[2017-02-20 12:18] VITALS: BMI 46.4
[2021-05-08 09:45] LABS: Hematocrit 33.2 % (40-54); Mean Corp Hgb Conc 30.1 g/dL (32-36); Mean Corpuscular Hgb 25.5 pg (27.0-32.0); Mean Corpuscular Volume 84.7 fL (80-94); Mean Platelet Vol. 13.5 fl (6.2-12.0); POSITIVE COUNT YES; Platelet Count 190 K/mm3 (150-450); RBC Distribution Width CV 15.4 % (11.6-14.6); Red Blood Count 3.92 M/mm3 (4.6-6.2); White Blood Count 8.1 K/mm3 (4.4-11.0)
[2021-05-08 09:46] LABS: Scan Indicated on CBC? Y/N YES- FLAGS NOTED
[2021-05-08 10:07] LABS: Anion Gap 10 (5-15); BUN 17 mg/dL (7-18); BUN/Creat Ratio 19.3 RATIO (10-20); Calcium,Total 8.9 mg/dL (8.5-10.1); Chloride 101 mmol/L (98-107); Creatinine, Serum 0.88 mg/dL (0.70-1.30); EST Glomerular Filtration Rate 91 mL/min (>60); Est Glom Filt Rate - Afr Amer 110 mL/min (>60); Glucose 169 mg/dL (74-106); Potassium 4.2 mmol/L (3.5-5.1); Sodium Level 136 mmol/L (136-145)
== END ==
LOC: OLS.SW500 05:00
PROVIDERS: PCP Family Medicine; Visit Provider Family Medicine
DX: I50.41 Acute combined systolic (congestive) and diastolic (congestive) heart failure (principal)
CPT/HCPCS: 36415; 80048; 85027

== ENCOUNTER 2021-07-19 16:42 | Inpatient (IN) | payer MEDICARE, MEDICAID, SELFPAY ==
[2017-02-20 12:18] VITALS: BMI 46.4
[2021-07-19] VITALS (14 sets, daily range): BP systolic 107–178; BP diastolic 61–125; PULSE 88–140; RESP 12–60; TEMP 36.6–37; O2SAT 92–98; BMI 41.5; BMI 40.4
--- NOTE | 2021-07-19 16:52 | EKG12_ITS ---
Test Reason : SOB Blood Pressure : / mmHG Vent. Rate : 131 BPM Atrial Rate : 131 BPM P-R Int : 096 ms QRS Dur : 110 ms QT Int : 362 ms P-R-T Axes : 000 080 076 degrees QTc Int : 534 ms Sinus tachycardia with short [place] Nonspecific ST and T wave abnormality Abnormal ECG Confirmed by SANDRA MATTA, ANTONY ([id number]), research editor EMMANUEL CONTRERAS ([id number]) on 07/23/2021 9:52:35 AM Referred By: ERIKA/PRIYA Confirmed By:ANTONY FLORES MD
--- NOTE | 2021-07-19 17:10 | RAD_ITS ---
STUDY: X-RAY CHEST REASON FOR EXAM: Male, 71 years old. chest pain TECHNIQUE: Single AP portable view of the chest. COMPARISON: 04/26/2021. FINDINGS: The lungs are clear and expanded. There is no demonstrated pleural abnormality. Normal size heart. Prior CABG. Normal mediastinum and ita. Normal visualized pulmonary arteries. Normal visualized aortic arch and descending thoracic aorta. Normal visualized thoracic spine. Normal visualized ribs, clavicles, and shoulders. There is no demonstrated abnormality of the visualized soft tissue structures of the upper abdomen. RAD/Chest 1 View (Portable) IMPRESSION: Normal x-ray examination of the chest. Electronically Signed: Abbie Avalos MD at 17:36 EST Reading Location ID and State: [id number] / Tel , Service support ,
--- NOTE | 2021-07-19 17:17 | EDS_ITS ---
HPI History of Present Illness Chief Complaint: Chest Pain Informant: patient Onset/Context/Timing Onset: Today Activity at onset: sudden Timing: Intermittent and Lasts (Few minutes) Quality: Positive for Pressure Location: Left Parasternal Worsened By: Nothing Relieved By: NTG Associated Symptoms: Positive for Diaphoresis, Dyspnea and Cough; Negative for Nausea, Vomiting, Fever, Lightheadedness, Acid Reflux and Palpitations Narrative Narrative: Patient presents with chest pain and shortness of breath that began today. Patient states it began rather suddenly. Patient states it began approximately 2-1/2 hours prior to arrival. Patient describes his pain as a pressure. Patient states it lasted several minutes and then resolved. Patient states he got better after he was given sublingual nitroglycerin. Patient states nothing makes it worse. Patient admits to some diaphoresis. Patient also admits to some shortness of breath and cough. Patient denies any sputum production. 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 angina pectoris Benign prostatic hyperplasia Chronic combined systolic and diastolic CHF (congestive heart failure) COPD (chronic obstructive pulmonary disease) COPD with acute exacerbation CVA (cerebral vascular accident) Depression Diabetes Dysphagia Essential (primary) hypertension GERD (gastroesophageal reflux disease) Heart failure History of non-ST elevation myocardial infarction (NSTEMI) (02/21/19) HTN (hypertension) Hyperlipidemia Intraparenchymal hemorrhage of brain Intraventricular hemorrhage Ischemic cardiomyopathy Morbid obesity Myocardial infarct Neuromuscular dysfunction of bladder Nicotine dependence Obesity Obstructive sleep apnea Osteomyelitis of sacrum Recurrent UTI (urinary tract infection) Reflux esophagitis Restless leg syndrome Right hemiplegia RLS (restless legs syndrome) Sleep apnea Subarachnoid hemorrhage Subdural hematoma Tobacco abuse Traumatic brain injury Type 2 diabetes mellitus Home Medications amantadine HCl 100 mg PO DAILY 04/17/18 [History Last Taken 07/19/21] pantoprazole 40 mg PO DAILY 04/17/18 [History Last Taken 07/19/21] pramipexole 0.25 mg PO QHS 04/17/18 [History Last Taken 07/18/21] pravastatin 80 mg PO QHS 04/17/18 [History Last Taken 07/18/21] fluoxetine 20 mg PO DAILY 02/20/19 [History Last Taken 07/19/21] nitroglycerin 0.4 mg SUBLINGUAL PRN PRN 02/20/19 [History Last Taken Unknown] aspirin 81 mg PO DAILY@0800 02/24/19 [History Last Taken 07/19/21] acetaminophen 1,000 mg PO Q6H PRN PRN tab 03/03/19 [Rx Last Taken 07/19/21] insulin aspart U-100 [Novolog Flexpen U-100 Insulin] See Protocol SC TIDCM 09/14/19 [History Last Taken 07/19/21] oxycodone 5 mg PO Q6H PRN PRN 09/14/19 [History Last Taken 07/19/21] sennosides-docusate sodium 2 ea PO BID 01/02/20 [History Last Taken 07/19/21] melatonin 3 mg PO QHS 09/14/20 [History Last Taken 07/18/21] sacubitril 24 mg-valsartan 26 mg tablet 1 tab PO BID 10/10/20 [History Last Taken 07/19/21] Brilinta 90 mg PO BID 02/17/21 [History Last Taken 07/19/21] fluticasone propionate 1 puff INHALATION BID 02/17/21 [History Last Taken 07/19/21] insulin aspart U-100 [Novolog Flexpen U-100 Insulin] 12 unit SUBCUT TIDCM 02/17/21 [History Last Taken 07/19/21] menthol-zinc oxide 1 applic TOPICAL 0600,2200 02/17/21 [History Last Taken 07/19/21] tamsulosin 0.4 mg PO QHS 02/17/21 [History Last Taken 07/18/21] furosemide 40 mg PO BID #0 tab 02/18/21 [Rx Last Taken 07/19/21] carvedilol 25 mg PO BID #0 tab 02/20/21 [Rx Last Taken 07/19/21] potassium chloride 40 meq PO DAILY 90 Days #90 tab 02/20/21 [Rx Last Taken 07/19/21] Lantus Solostar U-100 Insulin 20 unit SUBCUT QPM 04/25/21 [History Last Taken 07/18/21] spironolactone 25 mg PO DAILY #30 tab 04/29/21 [Rx Last Taken 07/19/21] oxybutynin chloride 5 mg PO DAILY 07/19/21 [History Last Taken 07/19/21] Allergy/AdvReac Type Severity Reaction Status Date / Time atorvastatin Allergy PT UNSURE Verified 06/13/21 10:40 OF REACTION cilostazol Allergy Hives Verified 06/13/21 10:40 colestipol Allergy Hives Verified 06/13/21 10:40 diltiazem Allergy Hives Verified 06/13/21 10:40 gemfibrozil Allergy Hives Verified 06/13/21 10:40 naproxen [From Naprosyn] Allergy Hives Verified 06/13/21 10:40 niacin Allergy PT UNSURE Verified 06/13/21 10:40 OF REACTION Nitrate Analogues Allergy Hives Verified 06/13/21 10:40 Penicillins Allergy Hives Verified 06/13/21 10:40 pravastatin Allergy NEEDS Verified 06/13/21 10:40 FOLLOW-UP procainamide Allergy Hives Verified 06/13/21 10:40 procaine Allergy NEEDS Verified 06/13/21 10:40 FOLLOW-UP rosuvastatin Allergy Hives Verified 06/13/21 10:40 simvastatin Allergy Hives Verified 06/13/21 10:40 isosorbide AdvReac Severe Unknown Verified 06/13/21 10:40 Family History Brother Heart disease Father Heart disease Alzheimer disease Mother No history of heart disease Surgical History Chronic suprapubic catheter H/O coronary angioplasty H/O coronary artery bypass surgery (2001) History of coronary artery stent placement (09/18/20) History of left heart catheterization (04/29/21) PEG (percutaneous endoscopic gastrostomy) adjustment/replacement/removal Status post ileostomy Status post osteotomy (01/2018) Social History [facility]: [facility] Smoking Status: Former smoker how long ago did patient quit smokin, 1 ppd second hand exposure: Yes alcohol intake: former caffeine: Yes Type: coffee Number of servings: 3 what type of physical activity do you participate in: none ROS ROS ED Constitutional Constitutional ED: Denies chills or fever(s) Eyes Eyes: Denies blurry vision or change in vision ENT ENT ED: Denies rhinorrhea or sore throat Cardiovascular Cardiovascular: Reports chest pain; Denies palpitations Respiratory/Chest Respiratory/Chest: Reports cough and dyspnea Gastrointestinal Gastrointestinal: Denies abdominal pain, nausea or vomiting Genitourinary Genitourinary ED: Denies dysuria or hematuria Musculoskeletal Musculoskeletal: Reports back pain; Denies neck pain Integumentary Denies abscess or rash Neurologic Neurologic: Reports headache(s); Denies weakness Allergic/Immunologic Allergic/Immunologic ED: Denies mouth swelling or urticaria EXAM Physical Exam Const Vital Signs: 07/19/21 16:43 07/19/21 16:48 07/19/21 16:49 Temperature 98.6 F 98.6 F Temperature Source Temporal Temporal Pulse Rate 140 H 137 H 138 H Respiratory Rate 53 H 53 H 60 H Respiratory Effort Labored Accessory Muscle Use Nasal Flaring Blood Pressure 178/125 H 178/125 H Blood Pressure Mean 142 142 Pulse Ox 98 98 98 Oxygen Delivery Method Bi-pap Bi-pap Oxygen Flow Rate (L/min) Fraction of Inspired Oxygen (FIO2) 35 07/19/21 17:07 07/19/21 17:42 07/19/21 18:16 Temperature 98.6 F 98.6 F Temperature Source Temporal Temporal Pulse Rate 124 H 109 H 111 H Respiratory Rate 32 H 28 H 24 H Respiratory Effort Blood Pressure 146/85 H 127/69 H 135/77 H Blood Pressure Mean 105 88 96 Pulse Ox 97 97 98 Oxygen Delivery Method Bi-pap Bi-pap Bi-pap Oxygen Flow Rate (L/min) Fraction of Inspired Oxygen (FIO2) 35 07/19/21 18:44 07/19/21 19:09 07/19/21 19:34 Temperature 98.3 F Temperature Source Temporal Pulse Rate 106 H 100 99 Respiratory Rate 25 H 27 H 25 H Respiratory Effort Blood Pressure 129/61 H 128/74 H 130/74 H Blood Pressure Mean 83 92 92 Pulse Ox 92 98 98 Oxygen Delivery Method Nasal Cannula Nasal Cannula Nasal Cannula Oxygen Flow Rate (L/min) 3 3 3 Fraction of Inspired Oxygen (FIO2) Positive well nourished, well developed and obese General Appearance ED: well developed Nutritional Appearance: obese HEENT normocephalic and atraumatic Eyes PERRL and EOMs intact bilaterally Neck supple and no JVD Chest Wall palpation of chest normal Resp Auscultation: rhonchi throughout Cardio regular rhythm Rate: tachycardic GI normal to inspection, nondistended, normoactive bowel sounds, soft to palpation, non-tender and non-distended Extremity normal to inspection Extremity Narrative: There is 1+ pitting edema of the lower extremities bilaterally. General Extremety ED: Yes edema; Negative for tenderness General Extremity: edema Neuro oriented x3, CN's II-XII intact bilaterally and no sensory deficits noted Sensorium / Orientation: awake and alert Motor Exam: strength 5/5 throughout Psych mental status grossly normal Heart Score History: Slightly/Non-Suspicious ECG: Nonspecific Repolarization Age: >/= 65 years Risk Factors: >/= 3 Risk Factors or History of CAD Troponin: </= Normal Limit Score: 5 MDM MDM MDM Narrative Medical decision making narrative: Patient was started on BiPAP initially. EKG was obtained. On my interpretation, it showed a sinus tachycardia with a rate of 131. IA interval, QRS interval, and QTc intervals were all normal. [place] was normal. There are nonspecific ST-T wave changes. Portable 1 view chest x-ray was obtained. On my interpretation, lung dover are clear. There is normal cardiac silhouette. Bony thorax is normal. There is no acute process noted. Radiologist also interpreted the x-ray and agrees. CBC shows leukocytosis of 14.6 with a hemoglobin of 10.9 and hematocrit 34.9. PT with INR PTT were within normal limits. Basic metabolic profile showed a slightly elevated creatinine of 1.33. Glucose was elevated at 339. BNP was slightly elevated at 364.5. Initial high-sensitivity troponin was normal at 24. 2-hour repeat high- sensitivity troponin was ordered and is pending. Lactate was ordered and is pending. Patient was started on Rocephin and Zithromax. Case was discussed with the hospitalist. She will admit the patient to PCU. Patient understood and was agreeable with the plan. All questions were answered. Lab Data Labs: Laboratory Results - last 24 hr 07/19/21 07/19/21 07/19/21 16:55 16:55 16:55 WBC 14.6 H RBC 4.10 L Hgb 10.9 L Hct 34.9 L MCV 85.1 MCH 26.6 L MCHC 31.2 L RDW Std Deviation 51.8 H RDW Coeff of Sherin 16.7 H Plt Count 256 MPV 11.4 Immature Gran % (Auto) 0.800 Neut % (Auto) 85.8 H Lymph % (Auto) 9.1 L [place] % (Auto) 3.0 Eos % (Auto) 0.8 Baso % (Auto) 0.5 Absolute Neuts (auto) 12.5 H Absolute Lymphs (auto) 1.32 Nucleated RBC % 0 PT 13.5 INR 1.1 APTT 29.2 Sodium 132 L Potassium 4.8 Chloride 103 Carbon Dioxide 23.0 Anion Gap 6 BUN 18 Creatinine 1.33 H Estim Creat Clear Calc 55.91 Est GFR (MDRD) Af Amer 68 Est GFR (MDRD) Non-Af 56 L BUN/Creatinine Ratio 13.5 Glucose 339 H Calcium 8.7 Troponin I High Sens 24 B-Natriuretic Peptide 07/19/21 07/19/21 16:55 19:00 WBC RBC Hgb Hct MCV MCH MCHC RDW Std Deviation RDW Coeff of Sherin Plt Count MPV Immature Gran % (Auto) Neut % (Auto) Lymph % (Auto) [place] % (Auto) Eos % (Auto) Baso % (Auto) Absolute Neuts (auto) Absolute Lymphs (auto) Nucleated RBC % PT INR APTT Sodium Potassium Chloride Carbon Dioxide Anion Gap BUN Creatinine Estim Creat Clear Calc Est GFR (MDRD) Af Amer Est GFR (MDRD) Non-Af BUN/Creatinine Ratio Glucose Calcium Troponin I High Sens 66 B-Natriuretic Peptide 364.5 H Radiography Diagnostic Testing: Clinical Impression(s) from Imaging Studies Chest X-Ray 07/19/21 17:10 IMPRESSION: Normal x-ray examination of the chest. Electronically Signed: Abbie Avalos MD at 17:36 EST Reading Location ID and State: [id number] / Tel , Service support , EKG Initial EKG: Attestation: I personally reviewed and interpreted this EKG as follows: Interpretation: Sinus Tachycardia (131) and Non-Specific ST Changes Treatment and Re-Evaluation Vital Sign Attestation:: Vital signs were reviewed prior to admission. Patient still has a mild tachypnea of 25. Remaining vital signs are stable. Discharge Plan Dx/Rx/DC Orders Clinical Impression: Acute respiratory failure with hypoxia, COPD exacerbation Disposition Disposition: Acute Care Hospital [facility] Discharge Date/Time: 07/19/21 21:04
[2021-07-19 17:20] LABS: Absolute Lymphocyte Count 1.32 X10^3/uL (0.83-4.51); Absolute Neutrophil Count 12.5 X10^3/uL (2.0-7.7); Basophil# 0.07 X10^3/uL; Basophil% 0.5 % (0-1); Eosinophil# 0.11 X10^3/uL; Eosinophils% 0.8 % (0-5); Hematocrit 34.9 % (40-54); Hemoglobin 10.9 g/dL (13.0-16.5); Lymphocyte # 1.32 X10^3/ul (0.83-4.51); Lymphocyte % 9.1 % (19-41); Mean Corp Hgb Conc 31.2 g/dL (32-36); Mean Corpuscular Hgb 26.6 pg (27.0-32.0); Mean Corpuscular Volume 85.1 fL (80-94); Mean Platelet Vol. 11.4 fl (6.2-12.0); Monocyte# 0.44 X10^3/uL; NRBC Flagged by Analyzer 0 % (0-5); Neutrophil # 12.51 X10^3/uL (2.7-7.7); Neutrophil % 85.8 % (47-70); Platelet Count 256 K/mm3 (150-450); RBC Distribution Width CV 16.7 % (11.6-14.6); RBC Distribution Width SD 51.8 fl (35.1-43.9); White Blood Count 14.6 K/mm3 (4.4-11.0)
[2021-07-19 17:26] LABS: International Normalized Ratio 1.1; Prothrombin Time (Protime)PT. 13.5 SECONDS (11.7-14.9)
[2021-07-19 17:27] LABS: Partial Thromboplast Time 29.2 Seconds (24.1-36.2)
[2021-07-19 17:32] LABS: BNP,B-Type NATRIURETIC PEPTIDE 364.5 pg/mL (0-100)
[2021-07-19 17:34] LABS: Anion Gap 6 (5-15); BUN 18 mg/dL (7-18); BUN/Creat Ratio 13.5 RATIO (10-20); Calcium,Total 8.7 mg/dL (8.5-10.1); Chloride 103 mmol/L (98-107); Creatinine, Serum 1.33 mg/dL (0.70-1.30); EST Glomerular Filtration Rate 56 mL/min (>60); Est Glom Filt Rate - Afr Amer 68 mL/min (>60); Estimated Creatinine Clearance 55.91 ml/min; Glucose 339 mg/dL (74-106); Potassium 4.8 mmol/L (3.5-5.1); Sodium Level 132 mmol/L (136-145); Troponin-I HS 24 pg/mL (3.0-78.0)
[2021-07-19] MEDS: Aspirin 81 MG TAB.CHEW 324 MG PO (17:47)
--- NOTE | 2021-07-19 18:43 | CM.ED ---
Social Work Patient REGAN of 1. This social staff worker met with patient and patient spouse in room. Provided support. Moreno RAMOS, REILLY
[2021-07-19 19:53] LABS: Troponin-I HS 66 pg/mL (3.0-78.0)
--- NOTE | 2021-07-19 20:00 | CASEMGMT ---
CAMILA BALDERAS note: CAMILA BALDERAS to patient's ER room. Patient appears restful on cart, arouses easily to name. No apparent distress. CAMILA BALDERAS introduced self and role at [facility]. CAMILA BALDERAS confirmed patient presented from [facility] and plans to return to facility at time of hospital discharge. CM/CONTRERAS to follow for any discharge planning/needs. Mariana JENSEN CM
--- NOTE | 2021-07-19 20:05 | PCM.HP.STD ---
HPI - General General Date of Admission: 07/19/21 Date of Service: 07/19/21 Chief Complaint: Cough, dyspnea, wheezing x 48 hours, worsening. HPI Narrative The patient is a 70 y/o M w/ PMHx: Hx EtOH abuse, Chronic anemia, Chronic COPD, Morbid Obesity, Chronic Diastolic CHF, HTN, HLD, CAD s/p CABG and PCI, Ischemic Cardiomyopathy, GERD, Depression and Anxiety, Hx CVA/Intraparenchymal hemorrhage w/ TBI w/ chronic R sided hemiplagia w/ prior PEG/chronic suprapubic catheter, BPH, Hx Tobacco use, RLS, JIM, Frequent recurrent UTI w/ chronic suprapubic catheter, Chronic stage II pressure ulcers who presents to the [facility] ED on 07/19/21 with history of onset nonproductive cough with clear phlegm, chest tightness with wheezing and dyspnea progressively worsening with eventual significant respiratory distress with increased respiratory rate and accessory muscle usage prompting skilled facility to transition patient to the ED for evaluation. Patient denies any recent fevers or chills. Work-up in the ED included T 98.6, heart rate initially 140, BP 170/125, respiratory rate 53 with immediate initiation of BiPAP with FiO2 35% with improvement with most recent vital signs heart rate 99, BP 130/74, respiratory rate 25, de-escalating to 3 L noted to be 98%, CBC with WBC 14.6, 110.9, platelet 256 with left shift, unremarkable coags, BMP with sodium 132, BUN/creat 18/1.33, glucose 339, BNP 364.5, troponin initial 24 with repeat 66 chest x-ray with no acute cardiopulmonary findings, EKG with no acute evidence of ischemia. In the ED patient ministered prednisone 60 mg IV x1, Rocephin, azithromycin, aspirin 324 mg p.o. x1 and morphine 4 mg IV x1. [facility] Medical History Acute on chronic systolic (congestive) heart failure Acute pulmonary edema (09/14/20) Acute respiratory failure with hypoxia (09/14/20) Acute respiratory failure with hypoxia and hypercapnia Alcohol abuse Allergic rhinitis Anemia Anxiety Atherosclerosis Atherosclerosis of coronary artery bypass graft without angina pectoris Benign prostatic hyperplasia Chronic combined systolic and diastolic CHF (congestive heart failure) COPD (chronic obstructive pulmonary disease) COPD with acute exacerbation CVA (cerebral vascular accident) Depression Diabetes Dysphagia Essential (primary) hypertension GERD (gastroesophageal reflux disease) Heart failure History of non-ST elevation myocardial infarction (NSTEMI) (02/21/19) HTN (hypertension) Hyperlipidemia Intraparenchymal hemorrhage of brain Intraventricular hemorrhage Ischemic cardiomyopathy Morbid obesity Myocardial infarct Neuromuscular dysfunction of bladder Nicotine dependence Obesity Obstructive sleep apnea Osteomyelitis of sacrum Recurrent UTI (urinary tract infection) Reflux esophagitis Restless leg syndrome Right hemiplegia RLS (restless legs syndrome) Sleep apnea Subarachnoid hemorrhage Subdural hematoma Tobacco abuse Traumatic brain injury Type 2 diabetes mellitus Home Medications amantadine HCl 100 mg PO DAILY 04/17/18 [History Last Taken 07/19/21] pantoprazole 40 mg PO DAILY 04/17/18 [History Last Taken 07/19/21] pramipexole 0.25 mg PO QHS 04/17/18 [History Last Taken 07/18/21] pravastatin 80 mg PO QHS 04/17/18 [History Last Taken 07/18/21] fluoxetine 20 mg PO DAILY 02/20/19 [History Last Taken 07/19/21] nitroglycerin 0.4 mg SUBLINGUAL PRN PRN 02/20/19 [History Last Taken Unknown] aspirin 81 mg PO DAILY@0800 02/24/19 [History Last Taken 07/19/21] acetaminophen 1,000 mg PO Q6H PRN PRN tab 03/03/19 [Rx Last Taken 07/19/21] insulin aspart U-100 [Novolog Flexpen U-100 Insulin] See Protocol SC TIDCM 09/14/19 [History Last Taken 07/19/21] oxycodone 5 mg PO Q6H PRN PRN 09/14/19 [History Last Taken 07/19/21] sennosides-docusate sodium 2 ea PO BID 01/02/20 [History Last Taken 07/19/21] melatonin 3 mg PO QHS 09/14/20 [History Last Taken 07/18/21] sacubitril 24 mg-valsartan 26 mg tablet 1 tab PO BID 10/10/20 [History Last Taken 07/19/21] Brilinta 90 mg PO BID 02/17/21 [History Last Taken 07/19/21] fluticasone propionate 1 puff INHALATION BID 02/17/21 [History Last Taken 07/19/21] insulin aspart U-100 [Novolog Flexpen U-100 Insulin] 12 unit SUBCUT TIDCM 02/17/21 [History Last Taken 07/19/21] menthol-zinc oxide 1 applic TOPICAL 0600,2200 02/17/21 [History Last Taken 07/19/21] tamsulosin 0.4 mg PO QHS 02/17/21 [History Last Taken 07/18/21] furosemide 40 mg PO BID #0 tab 02/18/21 [Rx Last Taken 07/19/21] carvedilol 25 mg PO BID #0 tab 02/20/21 [Rx Last Taken 07/19/21] potassium chloride 40 meq PO DAILY 90 Days #90 tab 02/20/21 [Rx Last Taken 07/19/21] Lantus Solostar U-100 Insulin 20 unit SUBCUT QPM 04/25/21 [History Last Taken 07/18/21] spironolactone 25 mg PO DAILY #30 tab 04/29/21 [Rx Last Taken 07/19/21] oxybutynin chloride 5 mg PO DAILY 07/19/21 [History Last Taken 07/19/21] Allergy/AdvReac Type Severity Reaction Status Date / Time atorvastatin Allergy PT UNSURE Verified 06/13/21 10:40 OF REACTION cilostazol Allergy Hives Verified 06/13/21 10:40 colestipol Allergy Hives Verified 06/13/21 10:40 diltiazem Allergy Hives Verified 06/13/21 10:40 gemfibrozil Allergy Hives Verified 06/13/21 10:40 naproxen [From Naprosyn] Allergy Hives Verified 06/13/21 10:40 niacin Allergy PT UNSURE Verified 06/13/21 10:40 OF REACTION Nitrate Analogues Allergy Hives Verified 06/13/21 10:40 Penicillins Allergy Hives Verified 06/13/21 10:40 pravastatin Allergy NEEDS Verified 06/13/21 10:40 FOLLOW-UP procainamide Allergy Hives Verified 06/13/21 10:40 procaine Allergy NEEDS Verified 06/13/21 10:40 FOLLOW-UP rosuvastatin Allergy Hives Verified 06/13/21 10:40 simvastatin Allergy Hives Verified 06/13/21 10:40 isosorbide AdvReac Severe Unknown Verified 06/13/21 10:40 Family History Brother Heart disease Father Heart disease Alzheimer disease Mother No history of heart disease Surgical History Chronic suprapubic catheter H/O coronary angioplasty H/O coronary artery bypass surgery (2001) History of coronary artery stent placement (09/18/20) History of left heart catheterization (04/29/21) PEG (percutaneous endoscopic gastrostomy) adjustment/replacement/removal Status post ileostomy Status post osteotomy (01/2018) Social History housing: assisted Smoking Status: Former smoker how long ago did patient quit smokin, 1 ppd second hand exposure: Yes alcohol intake: former caffeine: Yes Type: coffee Number of servings: 3 what type of physical activity do you participate in: none ROS ROS Narrative Admission Review of Systems: CONSTITUTIONAL: No weight loss, fever, chills, + weakness or fatigue. HEENT: Eyes: No visual loss, blurred vision, double vision or yellow sclerae. Ears, Nose, Throat: No hearing loss, sneezing, congestion, runny nose or sore throat. SKIN: No rash or itching, lesions, wounds. CARDIOVASCULAR: No chest pain, chest pressure or chest discomfort, palpitations, edema, orthopnea, syncopal events. RESPIRATORY: + shortness of breath, cough without marked sputum, wheezing, No hemoptysis. GASTROINTESTINAL: No anorexia, nausea, vomiting or diarrhea, abdominal pain, melena, BRBPR. GENITOURINARY: No dysuria, frequency, urgency or retention. NEUROLOGICAL: + Chronic deficits s/p CVA, No headache, dizziness, syncope, change in bowel or bladder control, seizure. MUSCULOSKELETAL: + muscle, back pain, joint pain or stiffness. HEMATOLOGIC: + anemia, bleeding or bruising. LYMPHATICS: No enlarged nodes. No history of splenectomy. PSYCHIATRIC: + history of depression or anxiety. ENDOCRINOLOGIC: No reports of sweating, cold or heat intolerance. No polyuria or polydipsia. ALLERGIES: No history of asthma, hives, eczema or rhinitis. Vital Signs Vital Signs Vital Signs: 07/19/21 16:43 07/19/21 16:48 07/19/21 16:49 Temperature 98.6 F 98.6 F Temperature Source Temporal Temporal Pulse Rate 140 H 137 H 138 H Respiratory Rate 53 H 53 H 60 H Respiratory Effort Labored Accessory Muscle Use Nasal Flaring Blood Pressure 178/125 H 178/125 H Blood Pressure Mean 142 142 Pulse Ox 98 98 98 Oxygen Delivery Method Bi-pap Bi-pap Oxygen Flow Rate (L/min) Fraction of Inspired Oxygen (FIO2) 35 07/19/21 17:07 07/19/21 17:42 07/19/21 18:16 Temperature 98.6 F 98.6 F Temperature Source Temporal Temporal Pulse Rate 124 H 109 H 111 H Respiratory Rate 32 H 28 H 24 H Respiratory Effort Blood Pressure 146/85 H 127/69 H 135/77 H Blood Pressure Mean 105 88 96 Pulse Ox 97 97 98 Oxygen Delivery Method Bi-pap Bi-pap Bi-pap Oxygen Flow Rate (L/min) Fraction of Inspired Oxygen (FIO2) 35 07/19/21 18:44 07/19/21 19:09 07/19/21 19:34 Temperature 98.3 F Temperature Source Temporal Pulse Rate 106 H 100 99 Respiratory Rate 25 H 27 H 25 H Respiratory Effort Blood Pressure 129/61 H 128/74 H 130/74 H Blood Pressure Mean 83 92 92 Pulse Ox 92 98 98 Oxygen Delivery Method Nasal Cannula Nasal Cannula Nasal Cannula Oxygen Flow Rate (L/min) 3 3 3 Fraction of Inspired Oxygen (FIO2) Weight Weight: 306 lb Body Mass Index (BMI) 41.5 Physical Exam Narrative Physical Examination: General: Awake, alert, oriented x3, transitioning off of BiPAP, significantly proved initially presentation and had significant respiratory distress, still has some increased respiratory rate and accessory muscle usage but notes feeling significantly improved. Skin: normal color, turgor, no icterus, cyanosis except excoriation, chronic stasis, intertrigo. HEENT: AT/NC, EOM difficult to assess given current acute presentation, PERRLA, dry MM, BiPAP being removed, no carotid bruits or JVD noted; however, thickened neck and referred sounds makes examination difficult. Lungs: Diffusely diminished, tight, expiratory wheezing noted, no crackles, increased respiratory rate and accessory muscle usage are lessening, BiPAP being removed. Heart: Tachycardic with regular rhythm; no gallop, rub audible. Abdomen: soft, morbidly obese, NTTP, ND, distant bowel sounds, colostomy in place, suprapubic catheter in place, difficult to assess HSM secondary to morbid obese habitus. Extremities: no cyanosis, clubbing, chronic right-sided hemiplegia status post CVA, mild ankle to distal rodrigues bilateral lower extremity pitting edema. Neurological: Awakens to stimuli, decreased alertness although improving since initial ED presentation, orientation decreased from baseline given acute presentation; cognitive function at baseline with deficits at baseline given history of TBI as well as CVA; cranial nerves grossly normal, patient with underlying history of chronic right-sided hemiplegia status post CVA, strength severely global decrease secondary to acute presentation concurrently. Psychiatric: affect appears fatigued, respiratory distress improving since initial ED presentation, no acute evidence of depressive or anxiety feelings. Results Lab / Micro Data Result Diagrams: 07/19/21 16:55 07/19/21 16:55 Labs: Laboratory Results - last 24 hr 07/19/21 16:55: WBC 14.6 H, RBC 4.10 L, Hgb 10.9 L, Hct 34.9 L, MCV 85.1, MCH 26.6 L, MCHC 31.2 L, RDW Std Deviation 51.8 H, RDW Coeff of Sherin 16.7 H, Plt Count 256, MPV 11.4, Immature Gran % (Auto) 0.800, Neut % (Auto) 85.8 H, Lymph % (Auto) 9.1 L, [place] % (Auto) 3.0, Eos % (Auto) 0.8, Baso % (Auto) 0.5, Absolute Neuts (auto) 12.5 H, Absolute Lymphs (auto) 1.32, Nucleated RBC % 0 07/19/21 16:55: Sodium 132 L, Potassium 4.8, Chloride 103, Carbon Dioxide 23.0, Anion Gap 6, BUN 18, Creatinine 1.33 H, Estim Creat Clear Calc 55.91, Est GFR (MDRD) Af Amer 68, Est GFR (MDRD) Non-Af 56 L, BUN/Creatinine Ratio 13.5, Glucose 339 H, Calcium 8.7, Troponin I High Sens 24 07/19/21 16:55: PT 13.5, INR 1.1, APTT 29.2 07/19/21 16:55: B-Natriuretic Peptide 364.5 H 07/19/21 19:00: Troponin I High Sens 66 Radiology Impression Chest X-Ray 07/19/21 17:10 IMPRESSION: Normal x-ray examination of the chest. Electronically Signed: Abbie Avalos MD at 17:36 EST , Assessment & Plan Assessment/Plan (1) Acute respiratory failure with hypoxia: (2) COPD exacerbation: PLAN: apubic catheter, BPH, Hx Tobacco use, RLS, JIM, Frequent recurrent UTI w/ chronic suprapubic catheter, Chronic stage II pressure ulcers who presents to the [facility] ED on 07/19/21 with history of onset nonproductive cough with clear phlegm, chest tightness with wheezing and dyspnea progressively worsening with eventual significant respiratory distress with increased respiratory rate and accessory muscle usage prompting skilled facility to transition patient to the ED for evaluation. 1. Acute Hypoxic Respiratory Failure secondary to Acute on chronic COPD exacerbation: CXR w/ chronic changes, CBC with WBC elevation and L shift although afebrile currently. Will admit to PCU, maintain on oxygen with wean as tolerated to room air, low threshold to restart BIPAP, will do BIPAP q HS regardless continue ATC duonebs, PRN albuterol, IV methylprednisolone , HOB, IS parameters, IV Doxycycline with pending sputum cultures. 2. CAD: Status post CABG times 08/2001, PCI 09/2020, will continue aspirin, Brilinta, statin, Entresto, Coreg regimen. 04/29/21 most recent cardiac catheterization with severe triple-vessel disease with no [place] bypass grafts which are all occluded, left main coronary artery stent and left anterior descending artery stents patent, proximal left circumflex artery stent patent with mild haziness but essentially better than previous exam, mild left circumflex artery totally occluded with collaterals noted, totally occluded right coronary artery with left to right collaterals. 3.History CVA/intraventricular hemorrhage, TBI: Patient with chronic right-sided hemiplegia with significant debilities, history of PEG tube, chronic suprapubic catheter, chronic decubitus ulcers, will continue offloading as needed, barrier, PT/OT/case management consultations will be necessary once patient appropriate, nutrition will be consulted. Continue aspirin, Brilinta, statin, hypertensive regimen as noted as well as diabetic regimen. 4. Hypertension: Continue home regimen including Entresto, Coreg, Lasix, PRN hydralazine. 5. Hyperlipidemia: Continue home statin regimen. 6. Diabetes mellitus type II: Hold oral home regimen, continue home long-acting insulin regimen, ADA diet, accu check with ISS. Wlil expect BS elevation given steroid usage and may need to adjust. 7. Anxiety and depression: We will continue patient home fluoxetine regimen. 8. Morbid Obesity: Weight loss and lifestyle changes will be encouraged. 9. JIM: Will continue BIPAP q HS and low threshold as noted to resume continuous if declines again. 10. Chronic stage II pressure ulcers: Wound continue offloading with frequent positional changes, barrier cream as needed. 11. Chronic anemia: Admission hemoglobin 10.9 baseline 10-11, stable, trend. 12. Restless leg syndrome: We will continue patient home Mirapex regimen. 13. GERD: Continue home PPI regimen. 14. DVT prophylaxis: SCD, Lovenox. 15. CODE status: Patient SUSANNAH is his and living will is currently in place. Discussed CODE status at length including difference between FULL code, DNR-CCA and DNR-CC status. Following discussions about the differences in these status, requested DNR-CCA, no intubation status. Advanced Care Planning Face to Face Time: 16 minutes. Charges/Coding Visit Charges Inpatient E&M: 38286 Init Hosp L3 Procedures Hospitalists Procedures: 37803 Advncd Care Plan 30 Min
[2021-07-19] MEDS: Ceftriaxone 1 GM/50 ML BAG IV (20:27)
[2021-07-19] MEDS: MethylPREDNISolone 125 MG/2 ML Vial 60 MG IV (20:27)
[2021-07-19] MEDS: Morphine 4 MG/ML Syringe IV (20:33)
--- NOTE | 2021-07-19 21:26 | EKG12_ITS ---
Test Reason : CP ADMISSION Blood Pressure : / mmHG Vent. Rate : 092 BPM Atrial Rate : 092 BPM P-R Int : 188 ms QRS Dur : 106 ms QT Int : 372 ms P-R-T Axes : 072 074 140 degrees QTc Int : 460 ms Normal sinus rhythm ST & T wave abnormality, consider lateral ischemia Prolonged QT Abnormal ECG Confirmed by SANDRA MATTA, ANTONY ([id number]), assignment editor EMMANUEL CONTRERAS ([id number]) on 07/23/2021 1:18:22 PM Referred By: ANSLEY Confirmed By:ANTONY FLORES MD
[2021-07-19] MEDS: CLARIFY ORDER 1 EACH NOTE (22:00)
[2021-07-19 22:08] LABS: Procalcitonin 0.44 ng/mL (0.00-0.09)
[2021-07-19] MEDS: Ipratropium/Albuterol Sulfate 3 ML AMPUL.NEB INHALATION (22:35)
[2021-07-19] MEDS: Menthol/Lanolin/Calamine/Znox 113 GM Tube 1 APPLIC TOPICAL (22:44)
[2021-07-19] MEDS: SACUBITRIL/VALSARTAN 24/26 MG TABLET 1 EACH PO (22:48)
[2021-07-19] MEDS: Enoxaparin 40 MG/0.4 ML Syringe SC (22:48)
[2021-07-19] MEDS: TICAGRELOR 90 MG TABLET PO (22:48)
[2021-07-19] MEDS: Carvedilol 25 MG Tablet PO (22:48)
[2021-07-19] MEDS: MELATONIN 3 MG TABLET PO (22:48)
[2021-07-19] MEDS: Furosemide 40 MG Tablet PO (22:48)
[2021-07-19] MEDS: Pravastatin 80 MG Tablet PO (22:50)
[2021-07-19] MEDS: Pramipexole Di-HCl 0.25 MG Tablet PO (22:50)
[2021-07-19] MEDS: Senna/Docusate Sodium 1 Tablet PO (22:50)
[2021-07-19 23:06] LABS: Bedside Glucose 287 mg/dL (70-110)
[2021-07-20] VITALS (20 sets, daily range): BP systolic 101–135; BP diastolic 62–76; PULSE 71–87; RESP 12–24; TEMP 36.6–37.1; O2SAT 94–100
[2021-07-20] MEDS: Tamsulosin HCl 0.4 MG Capsule PO ×2 (00:31→22:30)
[2021-07-20] MEDS: Menthol/Lanolin/Calamine/Znox 113 GM Tube 1 APPLIC TOPICAL ×2 (05:55→22:33)
[2021-07-20 06:45] LABS: Absolute Neutrophil Count 7.7 X10^3/uL (2.0-7.7); Basophil# 0.02 X10^3/uL; Basophil% 0.2 % (0-1); Hematocrit 33.9 % (40-54); Hemoglobin 10.1 g/dL (13.0-16.5); Mean Corp Hgb Conc 29.8 g/dL (32-36); Mean Corpuscular Hgb 25.6 pg (27.0-32.0); Mean Corpuscular Volume 85.8 fL (80-94); Mean Platelet Vol. 11.7 fl (6.2-12.0); Monocyte# 0.34 X10^3/uL; Monocyte% 3.9 % (0-10); NRBC Flagged by Analyzer 0 % (0-5); Neutrophil # 7.66 X10^3/uL (2.7-7.7); Neutrophil % 87.3 % (47-70); Platelet Count 227 K/mm3 (150-450); RBC Distribution Width CV 16.9 % (11.6-14.6); RBC Distribution Width SD 52.3 fl (35.1-43.9); Red Blood Count 3.95 M/mm3 (4.6-6.2); White Blood Count 8.8 K/mm3 (4.4-11.0)
[2021-07-20] MEDS: Ipratropium/Albuterol Sulfate 3 ML AMPUL.NEB INHALATION ×4 (06:56→19:31)
[2021-07-20 07:18] LABS: ALB/GLOB Ratio 0.8 RATIO (0.9-2.4); AST(SGOT) 29 U/L (15-37); Alanine Aminotransfer ALT/SGPT 61 U/L (16-61); Albumin, Serum 3.3 g/dL (3.2-5.0); Alkaline Phosphatase 116 U/L (45-117); Anion Gap 8 (5-15); BUN 24 mg/dL (7-18); BUN/Creat Ratio 22.4 RATIO (10-20); Calcium,Total 8.5 mg/dL (8.5-10.1); Chloride 103 mmol/L (98-107); Creatinine, Serum 1.07 mg/dL (0.70-1.30); EST Glomerular Filtration Rate 72 mL/min (>60); Est Glom Filt Rate - Afr Amer 88 mL/min (>60); Estimated Creatinine Clearance 73.62 ml/min; Globulin 4.3 g/dL (2.2-4.2); Glucose 320 mg/dL (74-106); Potassium 4.8 mmol/L (3.5-5.1); Protein, Total 7.6 g/dL (6.4-8.2); Sodium Level 132 mmol/L (136-145)
[2021-07-20] MEDS: Aspirin 81 MG TAB.CHEW PO (08:43)
[2021-07-20 08:45] LABS: Bedside Glucose 318 mg/dL (70-110)
[2021-07-20] MEDS: Insulin Lispro 100 UNIT/ML INSULN.PEN 12 UNIT SC ×3 (08:50→16:25)
[2021-07-20] MEDS: Insulin Lispro 100 UNIT/ML INSULN.PEN SC ×3 (08:51→16:25)
[2021-07-20] MEDS: oxyCODONE 5 MG Tablet PO ×2 (09:04→22:59)
[2021-07-20] MEDS: Amantadine 100 MG Capsule PO (09:05)
[2021-07-20] MEDS: Spironolactone 25 MG Tablet PO (09:05)
[2021-07-20] MEDS: TICAGRELOR 90 MG TABLET PO ×2 (09:06→22:30)
[2021-07-20] MEDS: Carvedilol 25 MG Tablet PO ×2 (09:07→22:30)
[2021-07-20] MEDS: Furosemide 40 MG Tablet PO ×2 (09:08→22:30)
[2021-07-20] MEDS: SACUBITRIL/VALSARTAN 24/26 MG TABLET 1 EACH PO ×2 (09:08→22:30)
[2021-07-20] MEDS: Tolterodine Tartrate 2 MG CAP.SA PO (09:08)
[2021-07-20] MEDS: Pantoprazole Sodium 40 MG Tablet PO (09:09)
[2021-07-20] MEDS: Potassium Chloride Oral Tablet 20 MEQ 40 MEQ PO (09:09)
[2021-07-20] MEDS: Enoxaparin 40 MG/0.4 ML Syringe SC ×2 (09:09→22:33)
[2021-07-20] MEDS: FLUoxetine 20 MG Capsule PO (09:10)
[2021-07-20] MEDS: Senna/Docusate Sodium 1 Tablet PO ×2 (09:10→22:30)
[2021-07-20 11:51] LABS: Bedside Glucose 381 mg/dL (70-110)
--- NOTE | 2021-07-20 16:27 | PN.HOSP_ITS ---
Subjective Subjective Patient seen and examined. He was on room air. He said he felt his breathing was much better. He was admitted for acute on chronic COPD exacerbation. He denies cough, chest pain, palpitations, dizziness, nausea or vomiting. Review of systems is otherwise negative. He has remained hemodynamically stable. Objective Data Objective Data Vital Signs: Vital Signs Temp Pulse Resp BP Pulse Ox 98.8 F 82 16 106/70 97 07/20/21 07:46 07/20/21 14:20 07/20/21 14:20 07/20/21 07:46 07/20/21 10:35 Oxygen Flow Rate (L/min) 98 Oxygen Delivery Method Room Air Weight: 314 lb 6.067 oz Body Mass Index (BMI) 40.4 Intake & Output: Intake and Output for Last 24 Hours 07/18/21 07/19/21 07/20/21 23:59 23:59 23:59 Intake Total 530 / 530 719.5 / 719.5 Output Total 3100 / 3100 Balance 530 / -70 -2380.5 / -2380.5 Lab / Micro Data Result Diagrams: 07/20/21 06:14 07/20/21 06:14 Labs: Laboratory Results - last 24 hr 07/19/21 16:55: WBC 14.6 H, RBC 4.10 L, Hgb 10.9 L, Hct 34.9 L, MCV 85.1, MCH 26.6 L, MCHC 31.2 L, RDW Std Deviation 51.8 H, RDW Coeff of Sherin 16.7 H, Plt Count 256, MPV 11.4, Immature Gran % (Auto) 0.800, Neut % (Auto) 85.8 H, Lymph % (Auto) 9.1 L, [place] % (Auto) 3.0, Eos % (Auto) 0.8, Baso % (Auto) 0.5, Absolute Neuts (auto) 12.5 H, Absolute Lymphs (auto) 1.32, Nucleated RBC % 0 07/19/21 16:55: Sodium 132 L, Potassium 4.8, Chloride 103, Carbon Dioxide 23.0, Anion Gap 6, BUN 18, Creatinine 1.33 H, Estim Creat Clear Calc 55.91, Est GFR (MDRD) Af Amer 68, Est GFR (MDRD) Non-Af 56 L, BUN/Creatinine Ratio 13.5, Glucose 339 H, Calcium 8.7, Troponin I High Sens 24 07/19/21 16:55: PT 13.5, INR 1.1, APTT 29.2 07/19/21 16:55: B-Natriuretic Peptide 364.5 H 07/19/21 19:00: Troponin I High Sens 66 07/19/21 21:20: Procalcitonin 0.44 H 07/19/21 22:41: POC Glucose 287 H 07/20/21 06:14: WBC 8.8, RBC 3.95 L, Hgb 10.1 L, Hct 33.9 L, MCV 85.8, MCH 25.6 L, MCHC 29.8 L, RDW Std Deviation 52.3 H, RDW Coeff of Sherin 16.9 H, Plt Count 227, MPV 11.7, Immature Gran % (Auto) 0.600, Neut % (Auto) 87.3 H, Lymph % (Auto) 8.0 L, [place] % (Auto) 3.9, Eos % (Auto) 0.0, Baso % (Auto) 0.2, Absolute Neuts (auto) 7.7, Absolute Lymphs (auto) 0.70 L, Nucleated RBC % 0 07/20/21 06:14: Sodium 132 L, Potassium 4.8, Chloride 103, Carbon Dioxide 21.0, Anion Gap 8, BUN 24 H, Creatinine 1.07, Estim Creat Clear Calc 73.62, Est GFR (MDRD) Af Amer 88, Est GFR (MDRD) Non-Af 72, BUN/Creatinine Ratio 22.4 H, Glucose 320 H, Calcium 8.5, Total Bilirubin 0.30, AST 29, ALT 61, Alkaline Phosphatase 116, Total Protein 7.6, Albumin 3.3, Globulin 4.3 H, Albumin/Globulin Ratio 0.8 L 07/20/21 08:40: POC Glucose 318 H 07/20/21 11:46: POC Glucose 381 H Micro: Microbiology 07/20/21 03:00 Urine Catheter - Lane Legionella Antigen - Final 07/20/21 03:00 Urine Catheter - Lane Streptococcus pneumoniae Antigen (M - Final 07/19/21 20:38 Nasal Secretion SARS-CoV-2 Antigen (Rapid) - Final Radiography Diagnostic Testing: Radiology Impression Chest X-Ray 07/19/21 17:10 IMPRESSION: Normal x-ray examination of the chest. Electronically Signed: Abbie Avalos MD at 17:36 EST Reading Location ID and State: [id number] / Tel , Service support , Physical Exam Const alert, oriented x3 and no apparent distress Exam Limitations: no limitations Nutritional Appearance: obese HEENT head/scalp atraumatic and moist oral mucous membranes Head and Scalp: normocephalic Eyes PERRL, EOMs intact bilaterally and conjunctivae normal Neck no lymphadenopathy Resp Resp Narrative: Mildly diminished breath sounds bibasilarly. Few crackles. On room air at time of review. Cardio regular rate, regular rhythm, S1 normal heart sound, S2 normal heart sound and no murmurs GI normal to inspection, nondistended, normoactive bowel sounds, soft to palpation, non-tender and non-distended Extremity normal to inspection Peripheral Pulses: Yes pulses 2+ throughout Skin no rashes or lesions noted Neuro oriented x3, CN's II-XII intact bilaterally and moves all extremities Sensorium / Orientation: alert Psych affect normal Assessment & Plan Assessment/Plan (1) Acute respiratory failure with hypoxia: (2) COPD exacerbation: PLAN: #Acute hypoxic respiratory failure due to acute on chronic COPD exacerbation * Weaned off of oxygen. * On breathing treatments with bronchodilators. * Titrate oxygen to maintain saturation above 90%. * On IV doxycycline. On IV Solu-Medrol. * #CAD s/p CABG * On aspirin and Brilinta as well as statin. * Had cardiac cath April 2021 which showed severe triple-vessel disease with patent grafts * #Hypertension: On Coreg and Lasix. #Hyperlipidemia: On statin Heart failure with reduced ejection fraction: * On Entresto and Lasix as well as Coreg. * Has known EF of 25 to 30% with moderate dilated left ventricle from 2D echo done in April 2021. #TYpe 2 diabetes mellitus: On Lantus 20 units qhs. Insulin sliding scale. Accu-Cheks AC at bedtime. #Anxiety and depression: On paroxetine #JIM: On CPAP nightly #Chronic stage II pressure ulcers: Present on admission. Turn patient frequently in bed. #Restless leg syndrome: On Mirapex #GERD: On PPI #DVT prophylaxis: Lovenox CODE STATUS: DNR CCA Disposition: Anticipate discharge back to SNF tomorrow Charges/Coding Visit Charges Inpatient E&M: 53733 Subs Hosp L2
[2021-07-20 16:36] LABS: Bedside Glucose 317 mg/dL (70-110)
--- NOTE | 2021-07-20 18:17 | NURSING ---
Reveiwed and agree with Kasey FAITH documentation.
[2021-07-20] MEDS: MELATONIN 3 MG TABLET PO (22:30)
[2021-07-20] MEDS: Pravastatin 80 MG Tablet PO (22:30)
[2021-07-20] MEDS: Pramipexole Di-HCl 0.25 MG Tablet PO (22:30)
[2021-07-20] MEDS: Acetaminophen 325 MG Tablet 650 MG PO (22:58)
[2021-07-21] VITALS (10 sets, daily range): BP systolic 113–138; BP diastolic 55–70; PULSE 76–83; RESP 12–19; TEMP 36.6–36.8; O2SAT 95–100
[2021-07-21] MEDS: Menthol/Lanolin/Calamine/Znox 113 GM Tube 1 APPLIC TOPICAL (05:28)
[2021-07-21] MEDS: Ipratropium/Albuterol Sulfate 3 ML AMPUL.NEB INHALATION ×3 (06:57→14:00)
[2021-07-21 08:01] LABS: Bedside Glucose 308 mg/dL (70-110)
[2021-07-21 08:58] LABS: Anion Gap 7 (5-15); BUN 29 mg/dL (7-18); BUN/Creat Ratio 25.4 RATIO (10-20); Calcium,Total 8.9 mg/dL (8.5-10.1); Chloride 103 mmol/L (98-107); Creatinine, Serum 1.14 mg/dL (0.70-1.30); EST Glomerular Filtration Rate 67 mL/min (>60); Est Glom Filt Rate - Afr Amer 81 mL/min (>60); Glucose 356 mg/dL (74-106); Potassium 4.7 mmol/L (3.5-5.1); Sodium Level 134 mmol/L (136-145)
[2021-07-21] MEDS: FLUoxetine 20 MG Capsule PO (09:16)
[2021-07-21] MEDS: Spironolactone 25 MG Tablet PO (09:16)
[2021-07-21] MEDS: Furosemide 40 MG Tablet PO (09:16)
[2021-07-21] MEDS: Aspirin 81 MG TAB.CHEW PO (09:16)
[2021-07-21] MEDS: Carvedilol 25 MG Tablet PO (09:16)
[2021-07-21] MEDS: Amantadine 100 MG Capsule PO (09:16)
[2021-07-21] MEDS: Senna/Docusate Sodium 1 Tablet PO (09:16)
[2021-07-21] MEDS: SACUBITRIL/VALSARTAN 24/26 MG TABLET 1 EACH PO (09:16)
[2021-07-21] MEDS: Pantoprazole Sodium 40 MG Tablet PO (09:16)
[2021-07-21] MEDS: TICAGRELOR 90 MG TABLET PO (09:16)
[2021-07-21] MEDS: Potassium Chloride Oral Tablet 20 MEQ 40 MEQ PO (09:16)
[2021-07-21] MEDS: Tolterodine Tartrate 2 MG CAP.SA PO (09:16)
[2021-07-21] MEDS: Insulin Lispro 100 UNIT/ML INSULN.PEN 12 UNIT SC ×3 (09:17→17:07)
[2021-07-21] MEDS: Enoxaparin 40 MG/0.4 ML Syringe SC (09:17)
[2021-07-21] MEDS: Insulin Lispro 100 UNIT/ML INSULN.PEN SC ×3 (09:19→17:07)
[2021-07-21] MEDS: Acetaminophen 325 MG Tablet 650 MG PO (09:32)
[2021-07-21] MEDS: oxyCODONE 5 MG Tablet PO (09:32)
[2021-07-21 11:46] LABS: Bedside Glucose 408 mg/dL (70-110)
--- NOTE | 2021-07-21 12:32 | PCM.DC.SUM ---
Providers Date of Admission: 07/19/21 Primary Care Physician: Dr. Phillip Lindo MD Reason For Visit: RESPIRATORY FAILURE, COPD EXACERBATION Diagnosis Discharge Diagnosis (1) Acute respiratory failure with hypoxia: Status: Acute Code(s): J96.01 - Acute respiratory failure with hypoxia (2) COPD exacerbation: Status: Chronic Code(s): J44.1 - Chronic obstructive pulmonary disease with (acute) exacerbation Medications at Discharge Home Medications amantadine HCl 100 mg PO DAILY 04/17/18 pantoprazole 40 mg PO DAILY 04/17/18 pramipexole 0.25 mg PO QHS 04/17/18 pravastatin 80 mg PO QHS 04/17/18 fluoxetine 20 mg PO DAILY 02/20/19 nitroglycerin 0.4 mg SUBLINGUAL PRN PRN 02/20/19 aspirin 81 mg PO DAILY@0800 02/24/19 acetaminophen 1,000 mg PO Q6H PRN PRN tab 03/03/19 insulin aspart U-100 [Novolog Flexpen U-100 Insulin] See Protocol SC TIDCM 09/14/19 oxycodone 5 mg PO Q6H PRN PRN 09/14/19 sennosides-docusate sodium 2 ea PO BID 01/02/20 melatonin 3 mg PO QHS 09/14/20 sacubitril 24 mg-valsartan 26 mg tablet 1 tab PO BID 10/10/20 Brilinta 90 mg PO BID 02/17/21 fluticasone propionate 1 puff INHALATION BID 02/17/21 insulin aspart U-100 [Novolog Flexpen U-100 Insulin] 12 unit SUBCUT TIDCM 02/17/21 menthol-zinc oxide 1 applic TOPICAL 0600,2200 02/17/21 tamsulosin 0.4 mg PO QHS 02/17/21 furosemide 40 mg PO BID #0 tab 02/18/21 carvedilol 25 mg PO BID #0 tab 02/20/21 potassium chloride 40 meq PO DAILY 90 Days #90 tab 02/20/21 Lantus Solostar U-100 Insulin 20 unit SUBCUT QPM 04/25/21 spironolactone 25 mg PO DAILY #30 tab 04/29/21 oxybutynin chloride 5 mg PO DAILY 07/19/21 doxycycline hyclate 100 mg PO BID #10 cap 07/21/21 prednisone 40 mg PO DAILY #10 tab 07/21/21 Hospital Course Operations None Procedures None Summary of Care Provided Minutes Spent on Discharge: 45 Hospital Course: Patient is a 70-year-old male with an extensive past medical history as outlined was admitted through the ED on 07/19/2021 with a complaint of nonproductive cough with shortness of breath and wheezing. Shortness of breath had gradually worsened so he was brought from his half-way facility to the ED. Was found to be tachypneic in the ED, with respiratory rate of 50. Immediate initiation of BiPAP in the ED. His breathing was subsequently improved. Chest x-ray showed no acute cardiopulmonary findings. EKG showed no acute ST changes. He was admitted and managed for acute on chronic hypoxic respiratory failure due to COPD exacerbation. He was started on IV Solu-Medrol as well as ceftriaxone and azithromycin. Patient shortness of breath gradually improved and he was weaned off of oxygen. He remained stable and was discharged home on 07/21/2021. He was discharged on prednisone 40 mg daily for 5 days. He is to follow-up with his primary care doctor in 1 to 2 weeks. Patient seen and examined prior to discharge. He had no active complaints review of systems otherwise negative. Labs and vitals reviewed. Home medication reviewed and reconciled. Physical Exam Const alert, oriented x3 and no apparent distress Exam Limitations: no limitations Nutritional Appearance: obese HEENT head/scalp atraumatic and moist oral mucous membranes Eyes PERRL, EOMs intact bilaterally and conjunctivae normal Neck no lymphadenopathy Resp Resp Narrative: Mildly diminished breath sounds bibasilarly. Few crackles. On room air at time of review. Cardio regular rate, regular rhythm, S1 normal heart sound, S2 normal heart sound and no murmurs GI normal to inspection, nondistended, normoactive bowel sounds, soft to palpation, non-tender and non-distended Extremity normal to inspection Skin no rashes or lesions noted Neuro oriented x3, CN's II-XII intact bilaterally and moves all extremities Sensorium / Orientation: alert Psych affect normal Weight / BMI Weight Weight: 312 lb 2.793 oz Body Mass Index (BMI) 40.4 ABG / Lab / Microbiology Data Result Diagrams: 07/20/21 06:14 07/21/21 08:30 Laboratory: Laboratory Results - last 24 hr 07/20/21 16:23: POC Glucose 317 H 07/21/21 07:54: POC Glucose 308 H 07/21/21 08:30: Sodium 134 L, Potassium 4.7, Chloride 103, Carbon Dioxide 24.0, Anion Gap 7, BUN 29 H, Creatinine 1.14, Estim Creat Clear Calc 69.10, Est GFR (MDRD) Af Amer 81, Est GFR (MDRD) Non-Af 67, BUN/Creatinine Ratio 25.4 H, Glucose 356 H, Calcium 8.9 07/21/21 11:39: POC Glucose 408 H Microbiology: Microbiology 07/20/21 03:00 Urine Catheter - Lane Legionella Antigen - Final 07/20/21 03:00 Urine Catheter - Lane Streptococcus pneumoniae Antigen (M - Final 07/19/21 20:38 Nasal Secretion SARS-CoV-2 Antigen (Rapid) - Final D/C Instructions Discharge Diet: Low fat / Low cholesterol Discharge Activity: Return to Normal Activity Weight Bearing Status: Weight bearing as tolerated Call your doctor if you observe: Fever of 101 or Higher, Shortness of breath, Dizziness, Swelling in the ankles, Chest pain and Increased palpitations (irregular heartbeat) Meaningful Use Info Meaningful Use Diagnoses (Choose all that apply): None applicable Discharge Plan Admission Admit Date/Time: 07/19/21 20:17 Primary Reason for Your Visit: Acute on chronic hypoxic respiratory failure due to COPD exacerbation Attending Provider: Safia Ortiz Primary Care Provider: Phillip Lindo Instructions Patient Instructions: COPD: Using Inhalers, COPD Meds Discharge Orders/Prescriptions Prescriptions: New doxycycline hyclate 100 mg capsule 100 mg PO BID Qty: 10 RF: 0 prednisone 20 mg tablet 40 mg PO DAILY Qty: 10 RF: 0 Continued Entresto 24-26 mg tablet 1 tab PO BID RF: 0 amantadine HCl 100 MG capsule 100 mg PO DAILY RF: 0 pravastatin 80 MG tablet 80 mg PO QHS RF: 0 pantoprazole 40 MG tablet 40 mg PO DAILY RF: 0 pramipexole 0.25 MG tablet 0.25 mg PO QHS RF: 0 nitroglycerin 0.4 MG tablet, sublingual 0.4 mg sublingual PRN PRN (Reason: CHEST PAIN) RF: 0 fluoxetine 20 MG capsule 20 mg PO DAILY RF: 0 aspirin 81 MG tablet,chewable 81 mg PO DAILY@0800 RF: 0 acetaminophen 500 MG tablet 1,000 mg PO Q6H PRN PRN (Reason: Mild Pain (-08/15)) RF: 0 oxycodone 5 MG tablet 5 mg PO Q6H PRN PRN (Reason: Pain Or Fever) RF: 0 insulin aspart U-100 [Novolog Flexpen U-100 Insulin] 100 UNITS/ML insulin pen See Protocol units SC TIDCM RF: 0 sennosides-docusate sodium 1 EACH tablet 2 ea PO BID RF: 0 melatonin 3 MG tablet,disintegrating 3 mg PO QHS RF: 0 tamsulosin 0.4 mg Capsule 0.4 mg PO QHS RF: 0 fluticasone propionate 110 mcg/actuation Hfa Aerosol Inhaler 1 puff INHALATION BID RF: 0 insulin aspart U-100 [Novolog Flexpen U-100 Insulin] 100 unit/mL (3 mL) Insulin Pen 12 unit SUBCUT TIDCM RF: 0 Brilinta 90 mg Tablet 90 mg PO BID RF: 0 menthol-zinc oxide 1 APPLIC ointment 1 applic topical 0600,2200 RF: 0 furosemide 40 mg tablet 40 mg PO BID Qty: 0 RF: 0 carvedilol 25 mg Tablet 25 mg PO BID Qty: 0 RF: 0 potassium chloride 20 mEq tablet,ER particles/crystals 40 meq PO DAILY 90 Days Qty: 90 RF: 0 Lantus Solostar U-100 Insulin 100 unit/mL (3 mL) Insulin Pen 20 unit SUBCUT QPM RF: 0 spironolactone 25 mg tablet 25 mg PO DAILY Qty: 30 RF: 0 oxybutynin chloride 5 mg Tablet Extended Release 24hr 5 mg PO DAILY RF: 0 Referrals / Follow Up: Phillip Lindo MD [Primary Care Provider] - Within 2 Weeks Disposition Disposition (needs filled in before D/C Order can be placed): Nursing Home Facility Charges/Coding Visit Charges Inpatient E&M: 99397 Disch Hosp
--- NOTE | 2021-07-21 12:55 | TREXTCAR_ITS ---
Diet 07/19/21 21:07 Diet: Cardiac: Calorie-Controlled Food consistency:: Regular Liquid Consistency:: Regular/Thin How many daily calories?: 1800 calorie Routine Orders/Code Status Enema Type: Fleetz Enema Frequency: Daily PRN Suppository Type: Dulcolax 10mg Suppository Frequency: Daily PRN Therapies Weight Bearing: Weight bearing as tolerated Physical Therapy: Eval and Treat Occupational Therapy: Eval and Treat Problem/Diagnosis (1) Acute respiratory failure with hypoxia: Status: Acute (2) COPD exacerbation: Status: Chronic Allergies/Procedures Done in Hospital Allergies atorvastatin Allergy (Verified 06/13/21 10:40) PT UNSURE OF REACTION cilostazol Allergy (Verified 06/13/21 10:40) Hives colestipol Allergy (Verified 06/13/21 10:40) Hives diltiazem Allergy (Verified 06/13/21 10:40) Hives gemfibrozil Allergy (Verified 06/13/21 10:40) Hives naproxen [From Naprosyn] Allergy (Verified 06/13/21 10:40) Hives niacin Allergy (Verified 06/13/21 10:40) PT UNSURE OF REACTION Nitrate Analogues Allergy (Verified 06/13/21 10:40) Hives Penicillins Allergy (Verified 06/13/21 10:40) Hives pravastatin Allergy (Verified 06/13/21 10:40) NEEDS FOLLOW-UP procainamide Allergy (Verified 06/13/21 10:40) Hives procaine Allergy (Verified 06/13/21 10:40) NEEDS FOLLOW-UP rosuvastatin Allergy (Verified 06/13/21 10:40) Hives simvastatin Allergy (Verified 06/13/21 10:40) Hives isosorbide Adverse Reaction (Severe, Verified 06/13/21 10:40) Unknown Procedures: None Type of Care/Length of Stay Estimated LOS: Convalescent Care Less Than 30 days Type of Care Needed: Skilled Rehab Potential: Fair Prognosis: Fair Additional Orders/Day of Discharge Day of Discharge: 07/21/21 Dietary and Speech Recommendations Dietitian Recommendations/Changes: continue 1800 calorie controlled, cardiac diet Discharge Plan Admission Admit Date/Time: 07/19/21 20:17 Primary Reason for Your Visit: Acute on chronic hypoxic respiratory failure due to COPD exacerbation Attending Provider: Safia Ortiz Primary Care Provider: Phillip Lindo Instructions Patient Instructions: COPD: Using Inhalers, COPD Meds Discharge Orders/Prescriptions Prescriptions: New doxycycline hyclate 100 mg capsule 100 mg PO BID Qty: 10 RF: 0 prednisone 20 mg tablet 40 mg PO DAILY Qty: 10 RF: 0 Continued Entresto 24-26 mg tablet 1 tab PO BID RF: 0 amantadine HCl 100 MG capsule 100 mg PO DAILY RF: 0 pravastatin 80 MG tablet 80 mg PO QHS RF: 0 pantoprazole 40 MG tablet 40 mg PO DAILY RF: 0 pramipexole 0.25 MG tablet 0.25 mg PO QHS RF: 0 nitroglycerin 0.4 MG tablet, sublingual 0.4 mg sublingual PRN PRN (Reason: CHEST PAIN) RF: 0 fluoxetine 20 MG capsule 20 mg PO DAILY RF: 0 aspirin 81 MG tablet,chewable 81 mg PO DAILY@0800 RF: 0 acetaminophen 500 MG tablet 1,000 mg PO Q6H PRN PRN (Reason: Mild Pain (-08/15)) RF: 0 oxycodone 5 MG tablet 5 mg PO Q6H PRN PRN (Reason: Pain Or Fever) RF: 0 insulin aspart U-100 [Novolog Flexpen U-100 Insulin] 100 UNITS/ML insulin pen See Protocol units SC TIDCM RF: 0 sennosides-docusate sodium 1 EACH tablet 2 ea PO BID RF: 0 melatonin 3 MG tablet,disintegrating 3 mg PO QHS RF: 0 tamsulosin 0.4 mg Capsule 0.4 mg PO QHS RF: 0 fluticasone propionate 110 mcg/actuation Hfa Aerosol Inhaler 1 puff INHALATION BID RF: 0 insulin aspart U-100 [Novolog Flexpen U-100 Insulin] 100 unit/mL (3 mL) Insulin Pen 12 unit SUBCUT TIDCM RF: 0 Brilinta 90 mg Tablet 90 mg PO BID RF: 0 menthol-zinc oxide 1 APPLIC ointment 1 applic topical 0600,2200 RF: 0 furosemide 40 mg tablet 40 mg PO BID Qty: 0 RF: 0 carvedilol 25 mg Tablet 25 mg PO BID Qty: 0 RF: 0 potassium chloride 20 mEq tablet,ER particles/crystals 40 meq PO DAILY 90 Days Qty: 90 RF: 0 Lantus Solostar U-100 Insulin 100 unit/mL (3 mL) Insulin Pen 20 unit SUBCUT QPM RF: 0 spironolactone 25 mg tablet 25 mg PO DAILY Qty: 30 RF: 0 oxybutynin chloride 5 mg Tablet Extended Release 24hr 5 mg PO DAILY RF: 0 Referrals / Follow Up: Phillip Lindo MD [Primary Care Provider] - Within 2 Weeks Disposition Disposition (needs filled in before D/C Order can be placed): Longterm Facility
[2021-07-21 16:16] LABS: Bedside Glucose 344 mg/dL (70-110)
--- NOTE | 2021-07-21 18:02 | NURSING ---
at 1732 Lisa Rodriguez called said it was ok to send back Kyaw Vargas to [facility] gave report number and fax number
--- NOTE | 2021-07-21 18:04 | NURSING ---
Esther called to Sima Bautista LPN at 1801.
--- NOTE | 2021-07-21 18:17 | NURSING ---
, Farideh notified when pt will be picked up by [facility] and taken back to [facility].
--- NOTE | 2021-07-21 18:59 | CASEMGMT ---
RNCM DC Progress Note: Called Received by CAMILA Tomlin inquiring if patient can return to [facility] today- DCO in and stable for DC. States called [facility] and s/w nurse but has not received an answer yet. Called [facility] at 1430, left a Msg with Admissions to see about return. Neg Covid 2.11. 1545- S/w Vincent from station 1- will call [facility] Driver and return call to this technical writer. 1739- Return call from [facility] and patient is good to return to room 515, report to [phone], fax DC summary/medication list to [phone]. This information was relayed to CAMILA Tomlin at [facility] [place]. KATHY Chilel
== END 2021-07-21 16:30 | DRG 189 ==
LOC: ED 19:50 → PCU 20:28
PROVIDERS: Admitting Provider Family Medicine; Emergency Provider Emergency Medicine; PCP Family Medicine; Visit Provider Student in an Organized Health Care Education/Training Program
DX: J96.21 Acute and chronic respiratory failure with hypoxia (principal); J44.1 Chronic obstructive pulmonary disease with (acute) exacerbation; I50.22 Chronic systolic (congestive) heart failure; Z68.41 Body mass index [BMI] 40.0-44.9, adult; I11.0 Hypertensive heart disease with heart failure; L89.152 Pressure ulcer of sacral region, stage 2; E11.65 Type 2 diabetes mellitus with hyperglycemia; E66.01 Morbid (severe) obesity due to excess calories; Z79.4 Long term (current) use of insulin; I25.10 Atherosclerotic heart disease of native coronary artery without angina pectoris; I25.5 Ischemic cardiomyopathy; G25.81 Restless legs syndrome; E78.5 Hyperlipidemia, unspecified; G47.33 Obstructive sleep apnea (adult) (pediatric); N40.0 Benign prostatic hyperplasia without lower urinary tract symptoms; I25.2 Old myocardial infarction; F41.9 Anxiety disorder, unspecified; Z95.1 Presence of aortocoronary bypass graft; F32.A Depression, unspecified; Z87.891 Personal history of nicotine dependence; K21.00 Gastro-esophageal reflux disease with esophagitis, without bleeding; Z79.82 Long term (current) use of aspirin; Z79.02 Long term (current) use of antithrombotics/antiplatelets; Z86.73 Personal history of transient ischemic attack (TIA), and cerebral infarction without residual deficits; Z20.822 Contact with and (suspected) exposure to COVID-19; R13.10 Dysphagia, unspecified; Z95.5 Presence of coronary angioplasty implant and graft
CPT/HCPCS: 36415; 71045; 80048; 80053; 82962; 83880; 84145; 84484; 85025; 85610; 85730; 87426; 87449; 93005; 94002; 94003; 94640; 97162; 97166; 97802; 99251; 99285; 99406; J7050; A4216; G0463

== ENCOUNTER → 2021-08-17 | Outpatient (REF) | payer MEDICARE, MEDICAID, SELFPAY ==
[2017-02-20 12:18] VITALS: BMI 46.4
[2021-08-18 09:47] LABS: Bacteria 0 SEEN /hpf (None Seen); Mucous, Urine 0 SEEN /hpf (<or=2+); Red Blood Cells-Urine 0 SEEN /hpf (0-5); Squamous Epithelial Cells - UA 0 SEEN /hpf (0-5); White Blood Cells 0 SEEN /hpf (0-5)
[2021-08-18 10:31] LABS: Color, Urine Yellow (Yellow); Glucose, Dipstick 50 mg/dl (Normal); Ketone-Dipstick Negative (Negative); Leukocyte Esterase-Dipstick 500 /ul (Negative); Nitrite-Dipstick Positive (Negative); Occult Blood-Urine 50 /ul (Negative); Protein-Dipstick 15 mg/dl (Negative); Urine Bilirubin Dipstick Negative (Negative); Urine Clarity Clear (Clear); Urine Urobilinogen Normal (Normal)
[2021-08-18 10:42] LABS: Triple Phosphate Crystals Ur 2+ /hpf (<or=1+)
== END | disposition home or self-care (01) ==
LOC: OLS.SW500 12:27
PROVIDERS: PCP Family Medicine; Referring Provider Family Medicine; Visit Provider Family Medicine
DX: R10.2 Pelvic and perineal pain (principal)
CPT/HCPCS: 81001; 87077; 87086; 87088; 87186

== ENCOUNTER 2021-08-22 12:31 | Outpatient (CLI) | payer MEDICARE, MEDICAID, SELFPAY ==
[2017-02-20 12:18] VITALS: BMI 46.4
--- NOTE | 2021-08-22 12:33 | ECHOCS_ITS ---
Reason For Study: S/P CABG Procedure This was a 2D Doppler, Color Flow transthoracic echocardiogram. The study was technically difficult. Due to body habitus. Contrast injection was performed. Exam performed in department. Left Ventricle Normal LV size. Left ventricular systolic function is normal. The estimated ejection fraction is 50 %. Stage 1 diastolic dysfunction. No regional wall motion abnormalities noted. Right Ventricle Normal RV size. Normal systolic function. Atria The left atrium is moderately enlarged. The right atrium is moderately enlarged. Tricuspid Valve The tricuspid valve is not well visualized. Unable to estimate RV systolic pressure due to inadequate jet, pulmonary artery pressure probably normal. Great Vessels Normal aortic root. Pericardium/Pleural No pericardial effusion. Medication 22 gauge I.V. with prn adaptor inserted into left arm. Diluted definity 3.5ml given slow IV push to enhance endocardial definition. MMode/2D Measurements & Calculations LVIDd: 7.3 cm IVSd: 1.2 cm Ao root diam: 3.6 cm LVIDs: 6.0 cm LVPWd: 1.2 cm FS: 17.9 % LAV(MOD-bp): 90.8 ml LVAd ap4: 36.5 cm2 LVAd ap2: 29.3 cm2 LAV(MOD-bp) Indexed: 36.9 ml/m2 LVLd ap4: 8.2 cm LVLd ap2: 8.4 cm LAV(MOD-sp2): 80.4 ml EDV(MOD-sp4): 135.3 ml EDV(MOD-sp2): 84.7 ml LAV(MOD-sp4): 93.7 ml EDV(sp4-el): 137.5 ml EDV(sp2-el): 86.8 ml LVAs ap4: 27.1 cm2 LVAs ap2: 21.2 cm2 LVLs ap4: 8.6 cm LVLs ap2: 7.9 cm ESV(MOD-sp4): 72.0 ml ESV(MOD-sp2): 46.6 ml ESV(sp4-el): 72.4 ml ESV(sp2-el): 48.1 ml EF(MOD-sp4): 46.7 % EF(MOD-sp2): 45.0 % EF(sp4-el): 47.3 % SV(MOD-sp4): 63.2 ml SV(MOD-sp2): 38.1 ml SV(sp4-el): 65.0 ml LA A4 area: 26.9 cm2 LA dimension(2D): 4.1 cm RA A4 area: 23.9 cm2 Time Measurements MV dec time: 0.20 sec Doppler Measurements & Calculations MV E max elijah: 97.6 cm/sec Lat Peak E' Elijah: 9.6 cm/sec Med Peak E' Elijah: 8.9 cm/sec MV A max elijah: 112.6 cm/sec E/E' lat: 10.2 E/E' med: 11.0 MV E/A: 0.87 MV V2 max: 212.1 cm/sec Ao V2 max: 109.2 cm/sec LV V1 max: 78.4 cm/sec MV max P.0 mmHg Ao max P.8 mmHg LV V1 max P.5 mmHg MV V2 mean: 113.1 cm/sec MV mean P.1 mmHg MV V2 VTI: 53.5 cm PA V2 max: 93.0 cm/sec MV P1/2t-pr_phl: 72.6 msec ECHO/Echo Complete W/ Contrast Interpretation Summary Normal LV size. Left ventricular systolic function is normal. The estimated ejection fraction is 50 %. The left atrium is moderately enlarged. The right atrium is moderately enlarged. Stage 1 diastolic dysfunction. Contrast injection was performed. Ordering Physician: Prashanth Peña Referring Physician: Phillip Lindo Performed By: Karuna Wayne, LAMIN, RVT
== END 2021-08-22 23:59 | disposition home or self-care (01) ==
LOC: CVS 12:33
PROVIDERS: PCP Family Medicine; Referring Provider Internal Medicine Cardiovascular Disease; Visit Provider Internal Medicine Cardiovascular Disease
DX: I25.810 Atherosclerosis of coronary artery bypass graft(s) without angina pectoris (principal)
CPT/HCPCS: 93306; Q9957; A4216; C8929

== ENCOUNTER → 2021-08-30 | Outpatient (REF) | payer MEDICARE, MEDICAID, SELFPAY ==
[2017-02-20 12:18] VITALS: BMI 46.4
[2021-08-30 07:10] LABS: Anion Gap 5 (5-15); BUN 22 mg/dL (7-18); BUN/Creat Ratio 23.5 RATIO (10-20); Chloride 105 mmol/L (98-107); Creatinine, Serum 0.94 mg/dL (0.70-1.30); EST Glomerular Filtration Rate 84 mL/min (>60); Est Glom Filt Rate - Afr Amer 102 mL/min (>60); Glucose 221 mg/dL (74-106); Potassium 3.9 mmol/L (3.5-5.1); Sodium Level 137 mmol/L (136-145)
== END | disposition home or self-care (01) ==
LOC: OLS.SW500 05:00
PROVIDERS: PCP Family Medicine; Visit Provider Family Medicine
DX: E87.8 Other disorders of electrolyte and fluid balance, not elsewhere classified (principal)
CPT/HCPCS: 36415; 80048

== ENCOUNTER → 2021-10-16 | Outpatient (REF) | payer MEDICARE, MEDICAID, SELFPAY ==
[2017-02-20 12:18] VITALS: BMI 46.4
[2021-10-16 08:33] LABS: Hemoglobin A1c 9.4 % (3.8-5.6)
[2021-10-18 05:37] LABS: Anion Gap 5 (5-15); BUN 24 mg/dL (7-18); BUN/Creat Ratio 23.8 RATIO (10-20); Chloride 102 mmol/L (98-107); Creatinine, Serum 1.01 mg/dL (0.70-1.30); EST Glomerular Filtration Rate 77 mL/min (>60); Est Glom Filt Rate - Afr Amer 94 mL/min (>60); Glucose 242 mg/dL (74-106); Potassium 5.9 mmol/L (3.5-5.1); Sodium Level 136 mmol/L (136-145)
== END | disposition home or self-care (01) ==
LOC: OLS.SW500 05:00
PROVIDERS: PCP Family Medicine; Visit Provider Family Medicine
DX: E11.9 Type 2 diabetes mellitus without complications (principal)
CPT/HCPCS: 36415; 80048; 83036

== ENCOUNTER → 2021-11-18 04:00 | Outpatient (REF) | payer MEDICARE, MEDICAID, SELFPAY ==
[2017-02-20 12:18] VITALS: BMI 46.4
[2021-11-18 08:55] LABS: Anion Gap 9 (5-15); BUN 20 mg/dL (7-18); BUN/Creat Ratio 20.5 RATIO (10-20); Chloride 104 mmol/L (98-107); Creatinine, Serum 0.98 mg/dL (0.70-1.30); EST Glomerular Filtration Rate 81 mL/min (>60); Est Glom Filt Rate - Afr Amer 97 mL/min (>60); Glucose 232 mg/dL (74-106); Potassium 3.9 mmol/L (3.5-5.1); Sodium Level 138 mmol/L (136-145)
== END ==
LOC: OLS.SW500 04:00
PROVIDERS: PCP Family Medicine; Referring Provider Family Medicine; Visit Provider Family Medicine
DX: I50.9 Heart failure, unspecified (principal)
CPT/HCPCS: 36415; 80048

== ENCOUNTER → 2022-02-13 | Outpatient (REF) | payer MEDICARE, MEDICAID, SELFPAY ==
[2017-02-20 12:18] VITALS: BMI 46.4
[2022-02-13 07:38] LABS: Hematocrit 41.7 % (40-54); Mean Corp Hgb Conc 31.2 g/dL (32-36); Mean Corpuscular Hgb 29.3 pg (27.0-32.0); Mean Corpuscular Volume 94.1 fL (80-94); Mean Platelet Vol. 11.8 fl (6.2-12.0); Platelet Count 182 K/mm3 (150-450); RBC Distribution Width CV 14.4 % (11.6-14.6); RBC Distribution Width SD 49.7 fl (35.1-43.9); Red Blood Count 4.43 M/mm3 (4.6-6.2); White Blood Count 7.1 K/mm3 (4.4-11.0)
[2022-02-13 07:42] LABS: Anion Gap 10 (5-15); BUN 19 mg/dL (7-18); BUN/Creat Ratio 20.8 RATIO (10-20); Calcium,Total 9.5 mg/dL (8.5-10.1); Chloride 105 mmol/L (98-107); Creatinine, Serum 0.91 mg/dL (0.70-1.30); EST Glomerular Filtration Rate 87 mL/min (>60); Est Glom Filt Rate - Afr Amer 105 mL/min (>60); Glucose 223 mg/dL (74-106); Potassium 3.8 mmol/L (3.5-5.1); Sodium Level 141 mmol/L (136-145)
== END ==
LOC: OLS.SW500 05:00
PROVIDERS: PCP Family Medicine; Visit Provider Family Medicine
DX: Z79.899 Other long term (current) drug therapy (principal)
CPT/HCPCS: 36415; 80048; 85027

== ENCOUNTER → 2022-03-28 | Outpatient (REF) | payer MEDICARE, MEDICAID, SELFPAY ==
[2017-02-20 12:18] VITALS: BMI 46.4
[2022-03-28 08:03] LABS: Hematocrit 38.4 % (40-54); Hemoglobin 12.2 g/dL (13.0-16.5); Mean Corp Hgb Conc 31.8 g/dL (32-36); Mean Corpuscular Hgb 29.5 pg (27.0-32.0); Mean Corpuscular Volume 92.8 fL (80-94); Platelet Count 174 K/mm3 (150-450); RBC Distribution Width CV 14.1 % (11.6-14.6); RBC Distribution Width SD 47.6 fl (35.1-43.9); Red Blood Count 4.14 M/mm3 (4.6-6.2); White Blood Count 7.2 K/mm3 (4.4-11.0)
[2022-03-28 08:09] LABS: ALB/GLOB Ratio 0.9 RATIO (0.9-2.4); AST(SGOT) 12 U/L (15-37); Alanine Aminotransfer ALT/SGPT 21 U/L (16-61); Albumin, Serum 3.3 g/dL (3.2-5.0); Alkaline Phosphatase 91 U/L (45-117); Anion Gap 6 (5-15); BUN 20 mg/dL (7-18); BUN/Creat Ratio 21.3 RATIO (10-20); Calcium,Total 8.9 mg/dL (8.5-10.1); Chloride 106 mmol/L (98-107); Creatinine, Serum 0.94 mg/dL (0.70-1.30); EST Glomerular Filtration Rate 84 mL/min (>60); Est Glom Filt Rate - Afr Amer 102 mL/min (>60); Globulin 3.6 g/dL (2.2-4.2); Glucose 195 mg/dL (74-106); Potassium 3.8 mmol/L (3.5-5.1); Protein, Total 6.9 g/dL (6.4-8.2); Sodium Level 137 mmol/L (136-145)
== END ==
LOC: OLS.SW500 05:00
PROVIDERS: PCP Family Medicine; Visit Provider Family Medicine
DX: I11.0 Hypertensive heart disease with heart failure (principal); I50.9 Heart failure, unspecified
CPT/HCPCS: 36415; 80053; 85027

== ENCOUNTER → 2022-04-16 | Outpatient (CLI) | payer MEDICARE, MEDICAID, SELFPAY ==
[2017-02-20 12:18] VITALS: BMI 46.4
--- NOTE | 2022-04-16 11:50 | RAD_ITS ---
STUDY: X-RAY CHEST REASON FOR EXAM: Male, 71 years old. BAH TECHNIQUE: XR Chest 2 Views COMPARISON: 07.19.21 FINDINGS: There is atherosclerotic calcification of the aortic arch with tortuosity. There are diffuse degenerative changes of the visualized thoracic spine. There is degenerative osteoarthritis of the bilateral shoulders. There is no demonstrated pleural abnormality. There is bilateral infiltrate. There are multiple median sternotomy wires. Normal size heart. Normal mediastinum and ita. Normal visualized pulmonary arteries. There is no demonstrated abnormality of the visualized soft tissue structures of the upper abdomen. RAD/Chest PA and Lateral IMPRESSION: There is bilateral infiltrate. Electronically Signed: Andrae Vela MD at 20:56 EST ,
[2022-04-16 12:53] LABS: Absolute Lymphocyte Count 1.63 X10^3/uL (0.83-4.51); Basophil# 0.04 X10^3/uL; Basophil% 0.6 % (0-1); Eosinophil# 0.18 X10^3/uL; Eosinophils% 2.7 % (0-5); Hematocrit 38.1 % (40-54); Hemoglobin 12.5 g/dL (13.0-16.5); Lymphocyte # 1.63 X10^3/ul (0.83-4.51); Lymphocyte % 24.5 % (19-41); Mean Corp Hgb Conc 32.8 g/dL (32-36); Mean Corpuscular Hgb 29.8 pg (27.0-32.0); Mean Corpuscular Volume 90.7 fL (80-94); Mean Platelet Vol. 11.5 fl (6.2-12.0); Monocyte# 0.72 X10^3/uL; Monocyte% 10.8 % (0-10); NRBC Flagged by Analyzer 0 % (0-5); Neutrophil # 4.04 X10^3/uL (2.7-7.7); Neutrophil % 60.8 % (47-70); Platelet Count 190 K/mm3 (150-450); RBC Distribution Width CV 14.6 % (11.6-14.6); RBC Distribution Width SD 48.5 fl (35.1-43.9); White Blood Count 6.7 K/mm3 (4.4-11.0)
[2022-04-16 13:15] LABS: BNP,B-Type NATRIURETIC PEPTIDE 170.8 pg/mL (0-100)
[2022-04-16 13:18] LABS: ALB/GLOB Ratio 0.9 RATIO (0.9-2.4); AST(SGOT) 16 U/L (15-37); Alanine Aminotransfer ALT/SGPT 30 U/L (16-61); Albumin, Serum 3.4 g/dL (3.2-5.0); Alkaline Phosphatase 91 U/L (45-117); Anion Gap 6 (5-15); BUN 17 mg/dL (7-18); BUN/Creat Ratio 18.1 RATIO (10-20); Calcium,Total 8.9 mg/dL (8.5-10.1); Chloride 105 mmol/L (98-107); Creatinine, Serum 0.94 mg/dL (0.70-1.30); EST Glomerular Filtration Rate 84 mL/min (>60); Est Glom Filt Rate - Afr Amer 102 mL/min (>60); Globulin 3.9 g/dL (2.2-4.2); Glucose 188 mg/dL (74-106); Potassium 4.3 mmol/L (3.5-5.1); Protein, Total 7.3 g/dL (6.4-8.2); Sodium Level 136 mmol/L (136-145)
== END | disposition home or self-care (01) ==
LOC: RAD 11:14
PROVIDERS: PCP Family Medicine; Referring Provider Physician Assistant Medical; Visit Provider Physician Assistant Medical
DX: R06.09 Other forms of dyspnea (principal); I25.5 Ischemic cardiomyopathy; I25.810 Atherosclerosis of coronary artery bypass graft(s) without angina pectoris
CPT/HCPCS: 36415; 71046; 80053; 83880; 85025

== ENCOUNTER → 2022-05-19 | Outpatient (REF) | payer MEDICARE, MEDICAID, SELFPAY ==
[2017-02-20 12:18] VITALS: BMI 46.4
[2022-05-19 09:14] LABS: Anion Gap 5 (5-15); BUN 17 mg/dL (7-18); BUN/Creat Ratio 16.8 RATIO (10-20); Calcium,Total 9.4 mg/dL (8.5-10.1); Chloride 104 mmol/L (98-107); Creatinine, Serum 1.01 mg/dL (0.70-1.30); EST Glomerular Filtration Rate 77 mL/min (>60); Est Glom Filt Rate - Afr Amer 93 mL/min (>60); Glucose 201 mg/dL (74-106); Sodium Level 138 mmol/L (136-145)
== END ==
LOC: OLS.SW 04:00
PROVIDERS: PCP Family Medicine; Referring Provider Family Medicine; Visit Provider Family Medicine
DX: E11.9 Type 2 diabetes mellitus without complications (principal)
CPT/HCPCS: 36415; 80048

== ENCOUNTER → 2022-07-26 | Outpatient (REF) | payer MEDICARE, MEDICAID, SELFPAY ==
[2017-02-20 12:18] VITALS: BMI 46.4
[2022-07-26 14:23] LABS: Bacteria 0 SEEN /hpf (None Seen); Mucous, Urine 0 SEEN /hpf (<or=2+); Squamous Epithelial Cells - UA 0 SEEN /hpf (0-5)
[2022-07-26 14:32] LABS: Color, Urine Yellow (Yellow); Glucose, Dipstick 50 mg/dl (Normal); Ketone-Dipstick Negative (Negative); Leukocyte Esterase-Dipstick 500 /ul (Negative); Nitrite-Dipstick Positive (Negative); Occult Blood-Urine 150 /ul (Negative); Protein-Dipstick 30 mg/dl (Negative); Urine Bilirubin Dipstick Negative (Negative); Urine Clarity Cloudy (Clear); Urine Urobilinogen Normal (Normal)
[2022-07-26 14:37] LABS: Amorphous Sediment 3+; White Blood Cells 5-10 SEEN /hpf (0-5)
[2022-07-26 14:38] LABS: Red Blood Cells-Urine 5-10 SEEN /hpf (0-5); Triple Phosphate Crystals Ur 2+ /hpf (<or=1+)
== END ==
LOC: OLS.SW 13:00
PROVIDERS: PCP Family Medicine; Visit Provider Family Medicine
DX: N39.0 Urinary tract infection, site not specified (principal)
CPT/HCPCS: 81001; 87077; 87086; 87088; 87186

== ENCOUNTER 2022-07-27 03:04 | Inpatient (IN) | payer MEDICARE, MEDICAID, SELFPAY ==
[2017-02-20 12:18] VITALS: BMI 46.4
[2022-07-27] VITALS (19 sets, daily range): BP systolic 100–222; BP diastolic 45–185; PULSE 83–122; RESP 12–44; TEMP 35.5–37.1; O2SAT 95–100; BMI 45.6; BMI 42.3
--- NOTE | 2022-07-27 03:06 | EKG12_ITS ---
Test Reason : SOB Blood Pressure : / mmHG Vent. Rate : 122 BPM Atrial Rate : 122 BPM P-R Int : 122 ms QRS Dur : 110 ms QT Int : 330 ms P-R-T Axes : 038 068 004 degrees QTc Int : [address] & T wave abnormality, consider inferior ischemia Abnormal ECG Confirmed by SHERYL MATTA, ALVARO ([id number]), writer editor EMMANUEL CONTRERAS ([id number]) on 07/28/2022 1:13:18 PM Referred By: Monisha Damon Confirmed By:ALVARO SAUCEDO MD
[2022-07-27] MEDS: Furosemide 100 MG/10 ML Vial 80 MG IV (03:21)
[2022-07-27] MEDS: Nitroglycerin Oint 1 INCH PACKET TD (03:22)
[2022-07-27 03:33] LABS: Absolute Lymphocyte Count 3.51 X10^3/uL (0.83-4.51); Absolute Neutrophil Count 7.1 X10^3/uL (2.0-7.7); Basophil% 0.8 % (0-1); Eosinophil# 0.37 X10^3/uL; Eosinophils% 3.1 % (0-5); Hemoglobin 13.4 g/dL (13.0-16.5); Lymphocyte # 3.51 X10^3/ul (0.83-4.51); Lymphocyte % 28.9 % (19-41); Mean Corp Hgb Conc 30.5 g/dL (32-36); Mean Corpuscular Hgb 28.9 pg (27.0-32.0); Mean Corpuscular Volume 94.8 fL (80-94); Mean Platelet Vol. 11.6 fl (6.2-12.0); Monocyte# 0.93 X10^3/uL; Monocyte% 7.7 % (0-10); NRBC Flagged by Analyzer 0 % (0-5); Neutrophil # 7.11 X10^3/uL (2.7-7.7); Neutrophil % 58.6 % (47-70); Platelet Count 271 K/mm3 (150-450); RBC Distribution Width CV 14.6 % (11.6-14.6); RBC Distribution Width SD 50.4 fl (35.1-43.9); Red Blood Count 4.64 M/mm3 (4.6-6.2); White Blood Count 12.1 K/mm3 (4.4-11.0)
[2022-07-27 03:45] LABS: BNP,B-Type NATRIURETIC PEPTIDE 307.7 pg/mL (0-100)
--- NOTE | 2022-07-27 03:45 | RAD_ITS ---
INDICATION: sob EXAMINATION/TECHNIQUE: X-RAY - XR Chest 1 View COMPARISON: None. FINDINGS: LINES/DEVICES: None. LUNGS: Increased interstitial markings in the perihilar regions and lung bases consistent with mild pulmonary edema. MEDIASTINUM AND CARDIOVASCULAR STRUCTURES: Cardiac silhouette not enlarged. Central airways and mediastinal contour are unremarkable. BONES AND SOFT TISSUES: Unremarkable. RAD/Chest 1 View (Portable) IMPRESSION: Mild pulmonary edema. Electronically Signed: Robert Solano MD at 4:02 EST ,
[2022-07-27 03:48] LABS: AST(SGOT) 26 U/L (15-37); Alanine Aminotransfer ALT/SGPT 34 U/L (16-61); Albumin, Serum 3.5 g/dL (3.2-5.0); Alkaline Phosphatase 102 U/L (45-117); Anion Gap 8 (5-15); BUN 23 mg/dL (7-18); BUN/Creat Ratio 18.1 RATIO (10-20); Bilirubin, Direct 0.15 mg/dL (0.00-0.30); Calcium,Total 8.9 mg/dL (8.5-10.1); Chloride 104 mmol/L (98-107); Creatinine, Serum 1.27 mg/dL (0.70-1.30); EST Glomerular Filtration Rate 59 mL/min (>60); Est Glom Filt Rate - Afr Amer 72 mL/min (>60); Estimated Creatinine Clearance 57.71 ml/min; Globulin 4.3 g/dL (2.2-4.2); Glucose 320 mg/dL (74-106); Potassium 4.5 mmol/L (3.5-5.1); Protein, Total 7.8 g/dL (6.4-8.2); Sodium Level 137 mmol/L (136-145); Troponin-I HS (w/2H Reflex) 19 pg/mL (3.0-78.0)
--- NOTE | 2022-07-27 04:01 | EX.ED.DYSGE1 ---
HPI History of Present Illness Chief Complaint: Shortness of Breath Informant: patient, EMS and SNF Onset/Context/Timing Onset: Today Narrative Narrative: Patient presents via EMS secondary to shortness of breath and hypoxia. Patient reportedly had rather abrupt onset of shortness of breath at the retirement this morning. EMS notes patient was cyanotic with sats in the 70s on a Ventimask on their arrival. Patient was placed on CPAP and was still satting in the 80s in route to the hospital. On arrival patient is able to nod his head to answer questions. He shakes his head no when asked if he is having any chest pain. He is placed on a BiPAP on arrival in the ER. [facility] Medical History Acute on chronic systolic (congestive) heart failure Acute pulmonary edema (09/14/20) Acute respiratory failure with hypoxia (09/14/20) Acute respiratory failure with hypoxia and hypercapnia Alcohol abuse Allergic rhinitis Anemia Anxiety Atherosclerosis Atherosclerosis of coronary artery bypass graft without angina pectoris Benign prostatic hyperplasia Chronic combined systolic and diastolic CHF (congestive heart failure) COPD (chronic obstructive pulmonary disease) COPD with acute exacerbation CVA (cerebral vascular accident) Depression Diabetes Dysphagia Essential (primary) hypertension GERD (gastroesophageal reflux disease) Heart failure History of non-ST elevation myocardial infarction (NSTEMI) (02/21/19) HTN (hypertension) Hyperlipidemia Intraparenchymal hemorrhage of brain Intraventricular hemorrhage Ischemic cardiomyopathy Morbid obesity Myocardial infarct Neuromuscular dysfunction of bladder Nicotine dependence Obesity Obstructive sleep apnea Osteomyelitis of sacrum Recurrent UTI (urinary tract infection) Reflux esophagitis Restless leg syndrome Right hemiplegia RLS (restless legs syndrome) Sleep apnea Subarachnoid hemorrhage Subdural hematoma Tobacco abuse Traumatic brain injury Type 2 diabetes mellitus Home Medications amantadine HCl 100 mg capsule 100 mg PO DAILY PARKINSON 04/17/18 [History Last Taken 07/19/21] pantoprazole 40 mg tablet,delayed release 40 mg PO DAILY STOMACH 04/17/18 [History Last Taken 07/19/21] pramipexole 0.25 mg tablet 0.25 mg PO QHS PARKINSONS 04/17/18 [History Last Taken 07/18/21] pravastatin 80 mg tablet 80 mg PO QHS CHOLESTEROL 04/17/18 [History Last Taken 07/18/21] nitroglycerin 0.4 mg sublingual tablet 0.4 mg sublingual PRN PRN CHEST PAIN 02/20/19 [History Last Taken Unknown] aspirin 81 mg chewable tablet 81 mg PO DAILY@0800 heart health 02/24/19 [History Last Taken 07/19/21] acetaminophen 500 mg tablet 1,000 mg PO Q6H PRN PRN Mild Pain (1-3/10) 03/03/19 [Rx Last Taken 07/19/21] insulin aspart U-100 100 unit/mL (3 mL) subcutaneous pen (Novolog FlexPen U-100 Insulin aspart) See Protocol subcut TIDCM blood sugar 09/14/19 [History Last Taken 07/19/21] oxycodone 5 mg tablet 5 mg PO Q6H PRN PRN Pain Or Fever 09/14/19 [History Last Taken 07/19/21] sennosides 8.6 mg-docusate sodium 50 mg tablet 2 ea PO BID constipation 01/02/20 [History Last Taken 07/19/21] melatonin 3 mg disintegrating tablet 3 mg PO QHS sleep 09/14/20 [History Last Taken 07/18/21] fluticasone propionate 110 mcg/actuation HFA aerosol inhaler 1 puff inhalation BID allergies 02/17/21 [History Last Taken 07/19/21] insulin aspart U-100 100 unit/mL (3 mL) subcutaneous pen (Novolog FlexPen U-100 Insulin aspart) 12 unit subcut TIDCM blood sugar 02/17/21 [History Last Taken 07/19/21] menthol 0.44 %-zinc oxide 20.6 % topical ointment 1 applic topical 0600,2200 skin 02/17/21 [History Last Taken 07/19/21] tamsulosin 0.4 mg capsule 0.4 mg PO QHS prostate 02/17/21 [History Last Taken 07/18/21] ticagrelor 90 mg tablet (Brilinta) 90 mg PO BID heart 02/17/21 [History Last Taken 07/19/21] furosemide 40 mg tablet 40 mg PO BID CHF #0 tabs 02/18/21 [Rx Last Taken 07/19/21] carvedilol 25 mg tablet 25 mg PO BID #0 tabs 02/20/21 [Rx Last Taken 07/19/21] potassium chloride 20 mEq tablet,extended release(part/cryst) 40 meq PO DAILY supplement 90 days #90 tabs 02/20/21 [Rx Last Taken 07/19/21] insulin glargine 100 unit/mL (3 mL) subcutaneous pen (Lantus Solostar U-100 Insulin) 20 unit subcut QPM DM 04/25/21 [History Last Taken 07/18/21] spironolactone 25 mg tablet 25 mg PO DAILY #30 tabs 04/29/21 [Rx Last Taken 07/19/21] aluminum-magnesium hydroxide 225 mg-200 mg/5 mL oral suspension 30 ml PO Q4H PRN 10/11/21 [History Last Taken Unknown] bisacodyl 10 mg rectal suppository 10 mg PA DAILY PRN 10/11/21 [History Last Taken Unknown] duloxetine 60 mg capsule,delayed release 60 mg PO QHS 10/11/21 [History Last Taken Unknown] fluoxetine 10 mg capsule 10 mg PO QPM 10/11/21 [History Last Taken Unknown] fluoxetine 40 mg capsule 40 mg PO QPM 10/11/21 [History Last Taken Unknown] guaifenesin 200 mg/5 mL oral liquid 400 mg PO Q4H PRN 10/11/21 [History Last Taken Unknown] lorazepam 0.5 mg tablet 0.5 mg PO DAILY PRN 10/11/21 [History Last Taken Unknown] magnesium hydroxide 400 mg/5 mL oral suspension (Milk of Magnesia) 30 ml PO DAILY PRN 10/11/21 [History Last Taken Unknown] nystatin 100,000 unit/gram topical powder 1 applic topical DAILY PRN 10/11/21 [History Last Taken Unknown] sacubitril 49 mg-valsartan 51 mg tablet (Entresto) 1 tab PO BID #60 tabs 10/11/21 [Rx Last Taken Unknown] sodium phosphates 19 gram-7 gram/118 mL enema (Fleet Enema) 118 ml PA ONCE PRN 10/11/21 [History Last Taken Unknown] trazodone 50 mg tablet 25 mg PO QHS 10/11/21 [History Last Taken Unknown] Allergy/AdvReac Type Severity Reaction Status Date / Time atorvastatin Allergy PT UNSURE Verified 07/27/22 03:13 OF REACTION cilostazol Allergy Hives Verified 07/27/22 03:13 colestipol Allergy Hives Verified 07/27/22 03:13 diltiazem Allergy Hives Verified 07/27/22 03:13 gemfibrozil Allergy Hives Verified 07/27/22 03:13 naproxen [From Naprosyn] Allergy Hives Verified 07/27/22 03:13 niacin Allergy PT UNSURE Verified 07/27/22 03:13 OF REACTION Nitrate Analogues Allergy Hives Verified 07/27/22 03:13 Penicillins Allergy Hives Verified 07/27/22 03:13 pravastatin Allergy NEEDS Verified 07/27/22 03:13 FOLLOW-UP procainamide Allergy Hives Verified 07/27/22 03:13 procaine Allergy NEEDS Verified 07/27/22 03:13 FOLLOW-UP rosuvastatin Allergy Hives Verified 07/27/22 03:13 simvastatin Allergy Hives Verified 07/27/22 03:13 isosorbide AdvReac Severe Unknown Verified 07/27/22 03:13 Family History Brother Heart disease Father Heart disease Alzheimer disease Mother No history of heart disease Surgical History Chronic suprapubic catheter H/O coronary angioplasty H/O coronary artery bypass surgery (2001) History of coronary artery stent placement (09/18/20) History of left heart catheterization (04/29/21) PEG (percutaneous endoscopic gastrostomy) adjustment/replacement/removal Status post ileostomy Status post osteotomy (01/2018) Social History housing: retirement Smoking Status: Former smoker second hand exposure: Yes alcohol intake: former substance use type: does not use caffeine: Yes Type: coffee Number of servings: 3 what type of physical activity do you participate in: none ROS ROS ED ROS Narrative Patient able to answer only limited questions secondary to his illness. He shakes his head no when asked if he has chest pain. Review of Systems ROS Unobtainable: due to mental condition EXAM Physical Exam Const Vital Signs: 07/27/22 03:06 07/27/22 03:14 07/27/22 03:15 Temperature 96 F L Temperature Source Temporal Pulse Rate 121 H 122 H Respiratory Rate 32 H 44 H Respiratory Effort Short of Breath Labored Accessory Muscle Use Nasal Flaring Respiratory Depth Deep Respiratory Pattern Tachypnea Blood Pressure 222/122 H Blood Pressure Mean 155 Pulse Ox 97 99 Oxygen Delivery Method Bi-pap Bi-pap Bi-pap Fraction of Inspired Oxygen (FIO2) 07/27/22 03:22 07/27/22 03:10 07/27/22 04:54 Temperature Temperature Source Pulse Rate 120 H 122 H Respiratory Rate 42 H Respiratory Effort Respiratory Depth Respiratory Pattern Tachypnea Blood Pressure 221/141 H Blood Pressure Mean Pulse Ox 99 98 Oxygen Delivery Method Room Air Fraction of Inspired Oxygen (FIO2) 90 07/27/22 04:30 07/27/22 03:25 Temperature Temperature Source Pulse Rate 98 Respiratory Rate 20 H Respiratory Effort Respiratory Depth Respiratory Pattern Normal Blood Pressure Blood Pressure Mean Pulse Ox 97 99 Oxygen Delivery Method Fraction of Inspired Oxygen (FIO2) 40 60 Positive obese Nutritional Appearance: obese HEENT Reports moist mucous membranes Eyes EOMs intact bilaterally Chest Wall inspection of chest normal and palpation of chest normal Resp Resp Narrative: Patient tachypneic with respiratory rates in the 30s and 40s. Lung sounds are wet bilaterally. Cardio Rate: tachycardic GI GI Narrative: Abdomen is soft, obese, nontender. Extremity Extremity Narrative: 3+ bilateral lower extremity edema, symmetric. Neuro Neuro Narrative: Patient will open eyes to voice. He will nod to answer questions. MDM MDM MDM Narrative Medical decision making narrative: Patient placed on telemetry monitor. EKG obtained to evaluate for cardiac ischemia/arrhythmia. Lab work obtained to evaluate for leukocytosis, anemia, electrolyte derangement. Troponin obtained to evaluate for cardiac ischemia and BNP obtained to evaluate for congestive heart failure. Portable chest x-ray obtained to evaluate for infiltrate/pulmonary edema. Given the patient's initial vital signs and exam findings he was given 80 mg of IV Lasix and Nitropaste was placed on his chest. After arrived at bedside, she states that he will often acts like this when he gets a UTI. She states the retirement had told her they were going to start an antibiotic for urinary infection last evening. Urinalysis and cultures have been added. Lab Data Attestation: I reviewed the patient's lab results. Labs: Laboratory Results - last 24 hr 07/27/22 07/27/22 07/27/22 03:13 03:13 03:13 WBC 12.1 H RBC 4.64 Hgb 13.4 Hct 44.0 MCV 94.8 H MCH 28.9 MCHC 30.5 L RDW Std Deviation 50.4 H RDW Coeff of Sherin 14.6 Plt Count 271 MPV 11.6 Immature Gran % (Auto) 0.900 Neut % (Auto) 58.6 Lymph % (Auto) 28.9 [place] % (Auto) 7.7 Eos % (Auto) 3.1 Baso % (Auto) 0.8 Absolute Neuts (auto) 7.1 Absolute Lymphs (auto) 3.51 Nucleated RBC % 0 Sodium 137 Potassium 4.5 Chloride 104 Carbon Dioxide 25.0 Anion Gap 8 BUN 23 H Creatinine 1.27 Estim Creat Clear Calc 57.71 Est GFR (MDRD) Af Amer 72 Est GFR (MDRD) Non-Af 59 L BUN/Creatinine Ratio 18.1 Glucose 320 H Calcium 8.9 Total Bilirubin 0.30 Direct Bilirubin 0.15 AST 26 ALT 34 Alkaline Phosphatase 102 Troponin I High Sens 19 B-Natriuretic Peptide 307.7 H Total Protein 7.8 Albumin 3.5 Globulin 4.3 H Urine Color Urine Clarity Urine pH Ur Specific Ozan Urine Protein Urine Glucose (UA) Urine Ketones Urine Occult Blood Urine Nitrite Urine Bilirubin Urine Urobilinogen Ur Leukocyte Esterase Urine RBC Urine WBC Ur Squamous Epith Cells Urine Bacteria Urine Mucus 07/27/22 04:56 WBC RBC Hgb Hct MCV MCH MCHC RDW Std Deviation RDW Coeff of Sherin Plt Count MPV Immature Gran % (Auto) Neut % (Auto) Lymph % (Auto) [place] % (Auto) Eos % (Auto) Baso % (Auto) Absolute Neuts (auto) Absolute Lymphs (auto) Nucleated RBC % Sodium Potassium Chloride Carbon Dioxide Anion Gap BUN Creatinine Estim Creat Clear Calc Est GFR (MDRD) Af Amer Est GFR (MDRD) Non-Af BUN/Creatinine Ratio Glucose Calcium Total Bilirubin Direct Bilirubin AST ALT Alkaline Phosphatase Troponin I High Sens B-Natriuretic Peptide Total Protein Albumin Globulin Urine Color Yellow Urine Clarity Clear Urine pH 7.0 Ur Specific Ozan 1.010 Urine Protein 30 H Urine Glucose (UA) 250 H Urine Ketones Negative Urine Occult Blood 25 H Urine Nitrite Positive H Urine Bilirubin Negative Urine Urobilinogen Normal Ur Leukocyte Esterase 100 H Urine RBC 0-5 SEEN Urine WBC 5-10 SEEN Ur Squamous Epith Cells 0 SEEN Urine Bacteria 3+ Urine Mucus 0 SEEN Radiography Chest X-Ray - ED: 1 View, Read by ED Physician and CHF Diagnostic Testing: Clinical Impression(s) from Imaging Studies Chest X-Ray 07/27/22 03:45 IMPRESSION: Mild pulmonary edema. Electronically Signed: Robert Solano MD at 4:02 EST , EKG Initial EKG: Attestation: I personally reviewed and interpreted this EKG as follows: Interpretation: Sinus Tachycardia (Sinus tach at 122. Nonspecific intraventricular conduction delay.) Treatment and Re-Evaluation Narrative: CBC was a white count of 12.1. Hemoglobin normal at 13.4. No left shift appreciated. Chemistry studies largely unremarkable. BUN is 23 and creatinine is 1.27. Glucose is 320. BNP is 307. Troponin is normal at 19. Portable chest x-ray per my interpretation reveals CHF/pulmonary edema. EKG is sinus tach with no obvious ischemia. Patient has improved significantly on BiPAP with Nitropaste and Lasix. Blood pressure is currently 107/58, heart rate 95, respiratory rate 20, pulse ox 98%. His FiO2 has been turned down to 50%. at bedside states that they were concerned that patient may have a UTI. Urinalysis has been ordered. Lane catheter has been clamped but urinalysis is still pending at this time. I will speak with hospitalist regarding admission. Addendum: Patient's urinalysis returns with 3+ bacteria, positive nitrites, 5-10 white cells. Urine culture has been sent. He will be given a dose of Rocephin. Critical Care Time Critical Care Time: Yes Critical care time (excluding procedures): 30-74 minutes (30 minutes), Discussing w/Patient &/or Family/Altitude Chamber Technician, Arranging Admission or Transfer and Performing Direct Patient Care at Bedside Discharge Plan Dx/Rx/DC Orders Clinical Impression: Acute on chronic respiratory failure, Pulmonary edema Disposition Disposition: [facility]
[2022-07-27 05:02] LABS: Mucous, Urine 0 SEEN /hpf (<or=2+); Squamous Epithelial Cells - UA 0 SEEN /hpf (0-5)
[2022-07-27 05:06] LABS: Color, Urine Yellow (Yellow); Glucose, Dipstick 250 mg/dl (Normal); Ketone-Dipstick Negative (Negative); Leukocyte Esterase-Dipstick 100 /ul (Negative); Nitrite-Dipstick Positive (Negative); Occult Blood-Urine 25 /ul (Negative); Protein-Dipstick 30 mg/dl (Negative); Urine Bilirubin Dipstick Negative (Negative); Urine Clarity Clear (Clear); Urine Urobilinogen Normal (Normal)
[2022-07-27 05:18] LABS: Reflex Troponin-HS? (from REC) Y
[2022-07-27 05:37] LABS: Bacteria 3+ /hpf (None Seen); Red Blood Cells-Urine 0-5 SEEN /hpf (0-5); White Blood Cells 5-10 SEEN /hpf (0-5)
--- NOTE | 2022-07-27 06:04 | HP.PCM.HOS_ITS ---
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 He had not been feeling well throughout the day and there was concern he might have a UTI and plan was to start him on an antibiotic but then he was found in the prison earlier this morning to be cyanotic with O2 sats in the 70s on a Ventimask on EMS arrival. He was placed on CPAP and was still satting in 80s in route to the hospital, on arrival to the hospital he still able to answer questions but was tired, was placed on BiPAP and improved significantly. Chest x-ray suggestive of possible edema and he was given 80 IV Lasix and nitro paste was placed on his chest and hospitalist consulted for admission. Evaluated patient with at bedside they report he had pneumonia in May and has somewhat of a decline since that time but yesterday had not been feeling very well throughout the day and there was concern for the UTI but antibiotics had not yet begun. Patient reports he did not wear his CPAP last night but had been feeling unwell and short of breath and had a slight cough. Presently ED is certainly feeling better. No chest pain, no headache, does report he feels he has some edema. Also has some mild abdominal discomfort. [facility] Medical History Acute on chronic systolic (congestive) heart failure Acute pulmonary edema (09/14/20) Acute respiratory failure with hypoxia (09/14/20) Acute respiratory failure with hypoxia and hypercapnia Alcohol abuse Allergic rhinitis Anemia Anxiety Atherosclerosis Atherosclerosis of coronary artery bypass graft without angina pectoris Benign prostatic hyperplasia Chronic combined systolic and diastolic CHF (congestive heart failure) COPD (chronic obstructive pulmonary disease) COPD with acute exacerbation CVA (cerebral vascular accident) Depression Diabetes Dysphagia Essential (primary) hypertension GERD (gastroesophageal reflux disease) Heart failure History of non-ST elevation myocardial infarction (NSTEMI) (02/21/19) HTN (hypertension) Hyperlipidemia Intraparenchymal hemorrhage of brain Intraventricular hemorrhage Ischemic cardiomyopathy Morbid obesity Myocardial infarct Neuromuscular dysfunction of bladder Nicotine dependence Obesity Obstructive sleep apnea Osteomyelitis of sacrum Recurrent UTI (urinary tract infection) Reflux esophagitis Restless leg syndrome Right hemiplegia RLS (restless legs syndrome) Sleep apnea Subarachnoid hemorrhage Subdural hematoma Tobacco abuse Traumatic brain injury Type 2 diabetes mellitus Home Medications amantadine HCl 100 mg capsule 100 mg PO DAILY [place] 04/17/18 [History Last Taken 07/19/21] pantoprazole 40 mg tablet,delayed release 40 mg PO DAILY STOMACH 04/17/18 [History Last Taken 07/19/21] pramipexole 0.25 mg tablet 0.25 mg PO QHS [place] 04/17/18 [History Last Taken 07/18/21] pravastatin 80 mg tablet 80 mg PO QHS CHOLESTEROL 04/17/18 [History Last Taken 07/18/21] nitroglycerin 0.4 mg sublingual tablet 0.4 mg sublingual PRN PRN CHEST PAIN 02/20/19 [History Last Taken Unknown] aspirin 81 mg chewable tablet 81 mg PO DAILY@0800 heart health 02/24/19 [History Last Taken 07/19/21] acetaminophen 500 mg tablet 1,000 mg PO Q6H PRN PRN Mild Pain (1-3) 03/03/19 [Rx Last Taken 07/19/21] insulin aspart U-100 100 unit/mL (3 mL) subcutaneous pen (Novolog FlexPen U-100 Insulin aspart) See Protocol subcut TIDCM blood sugar 09/14/19 [History Last Taken 07/19/21] oxycodone 5 mg tablet 5 mg PO Q6H PRN PRN Pain Or Fever 09/14/19 [History Last Taken 07/19/21] sennosides 8.6 mg-docusate sodium 50 mg tablet 2 ea PO BID constipation 01/02/20 [History Last Taken 07/19/21] melatonin 3 mg disintegrating tablet 3 mg PO QHS sleep 09/14/20 [History Last Taken 07/18/21] fluticasone propionate 110 mcg/actuation HFA aerosol inhaler 1 puff inhalation BID allergies 02/17/21 [History Last Taken 07/19/21] insulin aspart U-100 100 unit/mL (3 mL) subcutaneous pen (Novolog FlexPen U-100 Insulin aspart) 12 unit subcut TIDCM blood sugar 02/17/21 [History Last Taken 07/19/21] menthol 0.44 %-zinc oxide 20.6 % topical ointment 1 applic topical 0600,2200 skin 02/17/21 [History Last Taken 07/19/21] tamsulosin 0.4 mg capsule 0.4 mg PO QHS prostate 02/17/21 [History Last Taken 07/18/21] ticagrelor 90 mg tablet (Brilinta) 90 mg PO BID heart 02/17/21 [History Last Taken 07/19/21] furosemide 40 mg tablet 40 mg PO BID CHF #0 tabs 02/18/21 [Rx Last Taken 07/19/21] carvedilol 25 mg tablet 25 mg PO BID #0 tabs 02/20/21 [Rx Last Taken 07/19/21] potassium chloride 20 mEq tablet,extended release(part/cryst) 40 meq PO DAILY supplement 90 days #90 tabs 02/20/21 [Rx Last Taken 07/19/21] insulin glargine 100 unit/mL (3 mL) subcutaneous pen (Lantus Solostar U-100 Insulin) 20 unit subcut QPM DM 04/25/21 [History Last Taken 07/18/21] spironolactone 25 mg tablet 25 mg PO DAILY #30 tabs 04/29/21 [Rx Last Taken 07/19/21] aluminum-magnesium hydroxide 225 mg-200 mg/5 mL oral suspension 30 ml PO Q4H PRN 10/11/21 [History Last Taken Unknown] bisacodyl 10 mg rectal suppository 10 mg ME DAILY PRN 10/11/21 [History Last Taken Unknown] duloxetine 60 mg capsule,delayed release 60 mg PO QHS 10/11/21 [History Last Taken Unknown] fluoxetine 10 mg capsule 10 mg PO QPM 10/11/21 [History Last Taken Unknown] fluoxetine 40 mg capsule 40 mg PO QPM 10/11/21 [History Last Taken Unknown] guaifenesin 200 mg/5 mL oral liquid 400 mg PO Q4H PRN 10/11/21 [History Last Taken Unknown] lorazepam 0.5 mg tablet 0.5 mg PO DAILY PRN 10/11/21 [History Last Taken Unknown] magnesium hydroxide 400 mg/5 mL oral suspension (Milk of Magnesia) 30 ml PO DAILY PRN 10/11/21 [History Last Taken Unknown] nystatin 100,000 unit/gram topical powder 1 applic topical DAILY PRN 10/11/21 [History Last Taken Unknown] sacubitril 49 mg-valsartan 51 mg tablet (Entresto) 1 tab PO BID #60 tabs 10/11/21 [Rx Last Taken Unknown] sodium phosphates 19 gram-7 gram/118 mL enema (Fleet Enema) 118 ml ME ONCE PRN 10/11/21 [History Last Taken Unknown] trazodone 50 mg tablet 25 mg PO QHS 10/11/21 [History Last Taken Unknown] Allergy/AdvReac Type Severity Reaction Status Date / Time atorvastatin Allergy PT UNSURE Verified 07/27/22 03:13 OF REACTION cilostazol Allergy Hives Verified 07/27/22 03:13 colestipol Allergy Hives Verified 07/27/22 03:13 diltiazem Allergy Hives Verified 07/27/22 03:13 gemfibrozil Allergy Hives Verified 07/27/22 03:13 naproxen [From Naprosyn] Allergy Hives Verified 07/27/22 03:13 niacin Allergy PT UNSURE Verified 07/27/22 03:13 OF REACTION Nitrate Analogues Allergy Hives Verified 07/27/22 03:13 Penicillins Allergy Hives Verified 07/27/22 03:13 pravastatin Allergy NEEDS Verified 07/27/22 03:13 FOLLOW-UP procainamide Allergy Hives Verified 07/27/22 03:13 procaine Allergy NEEDS Verified 07/27/22 03:13 FOLLOW-UP rosuvastatin Allergy Hives Verified 07/27/22 03:13 simvastatin Allergy Hives Verified 07/27/22 03:13 isosorbide AdvReac Severe Unknown Verified 07/27/22 03:13 Family History Brother Heart disease Father Heart disease Alzheimer disease Mother No history of heart disease Surgical History Chronic suprapubic catheter H/O coronary angioplasty H/O coronary artery bypass surgery (2001) History of coronary artery stent placement (09/18/20) History of left heart catheterization (04/29/21) PEG (percutaneous endoscopic gastrostomy) adjustment/replacement/removal Status post ileostomy Status post osteotomy (01/2018) Social History housing: prison Smoking Status: Former smoker second hand exposure: Yes alcohol intake: former substance use type: does not use caffeine: Yes Type: coffee Number of servings: 3 what type of physical activity do you participate in: none ROS ROS Narrative General: No fevers HENT: Denies headache, chronic stuffy nose EYES: Denies changes in vision Resp: Slight cough that has been chronic, short of breath today and possibly some yesterday Cardiac: Denies chest pain GI: Has colostomy, slight abdominal discomfort that he cannot further roxi acterize : Chronic Lane Extremity: Does feel he is swollen in his extremities MSK: Has chronic weakness after stroke Neuro: Has chronic deficit after stroke Heme: Denies any bleeding or bruising Skin: Denies rashes Psychiatric: Very tired Vital Signs Vital Signs Vital Signs: 07/27/22 03:06 07/27/22 03:14 07/27/22 03:15 Temperature 96 F L Temperature Source Temporal Pulse Rate 121 H 122 H Respiratory Rate 32 H 44 H Respiratory Effort Short of Breath Labored Accessory Muscle Use Nasal Flaring Respiratory Depth Deep Respiratory Pattern Tachypnea Blood Pressure 222/122 H Blood Pressure Mean 155 Pulse Ox 97 99 Oxygen Delivery Method Bi-pap Bi-pap Bi-pap Fraction of Inspired Oxygen (FIO2) 07/27/22 03:22 07/27/22 03:10 07/27/22 04:54 Temperature Temperature Source Pulse Rate 120 H 122 H Respiratory Rate 42 H Respiratory Effort Respiratory Depth Respiratory Pattern Tachypnea Blood Pressure 221/141 H Blood Pressure Mean Pulse Ox 99 98 Oxygen Delivery Method Room Air Fraction of Inspired Oxygen (FIO2) 90 07/27/22 04:30 07/27/22 03:25 Temperature Temperature Source Pulse Rate 98 Respiratory Rate 20 H Respiratory Effort Respiratory Depth Respiratory Pattern Normal Blood Pressure Blood Pressure Mean Pulse Ox 97 99 Oxygen Delivery Method Fraction of Inspired Oxygen (FIO2) 40 60 Weight Weight: 152.4 kg Body Mass Index (BMI) 45.6 Physical Exam Narrative General: Able to wake up and answer questions but is fairly tired though can hold attention HEENT: Atraumatic, normocephalic Eyes: Extraocular movements grossly intact Neck: Thick Respiratory: On BiPAP, coarse throughout Cardiovascular: Regular rate and rhythm GI: Soft, minimal tenderness diffusely, no rebound, guarding, rigidity Extremities: Trace bilateral lower extremity pitting edema Musculoskeletal: Resting comfortably in bed Neuro: Chronic deficits for stroke Skin: Appears to have some chronic skin changes on legs and arms Psych: Cooperative Results Lab / Micro Data Result Diagrams: 07/27/22 03:13 07/27/22 03:13 Labs: Laboratory Results - last 24 hr 07/27/22 03:13: WBC 12.1 H, RBC 4.64, Hgb 13.4, Hct 44.0, MCV 94.8 H, MCH 28.9, MCHC 30.5 L, RDW Std Deviation 50.4 H, RDW Coeff of [place] 14.6, Plt Count 271, MPV 11.6, Immature Gran % (Auto) 0.900, Neut % (Auto) 58.6, Lymph % (Auto) 28.9, [place] % (Auto) 7.7, Eos % (Auto) 3.1, Baso % (Auto) 0.8, Absolute Neuts (auto) 7.1, Absolute Lymphs (auto) 3.51, Nucleated RBC % 0 07/27/22 03:13: Sodium 137, Potassium 4.5, Chloride 104, Carbon Dioxide 25.0, Anion Gap 8, BUN 23 H, Creatinine 1.27, Estim Creat Clear Calc 57.71, Est GFR (MDRD) Af Amer 72, Est GFR (MDRD) Non-Af 59 L, BUN/Creatinine Ratio 18.1, Glucose 320 H, Calcium 8.9, Total Bilirubin 0.30, Direct Bilirubin 0.15, AST 26, ALT 34, Alkaline Phosphatase 102, Troponin I High Sens 19, Total Protein 7.8, Albumin 3.5, Globulin 4.3 H 07/27/22 03:13: B-Natriuretic Peptide 307.7 H 07/27/22 04:56: Urine Color Yellow, Urine Clarity Clear, Urine pH 7.0, Ur Specific [place] 1.010, Urine Protein 30 H, Urine Glucose (UA) 250 H, Urine Ketones Negative, Urine Occult Blood 25 H, Urine Nitrite Positive H, Urine Bilirubin Negative, Urine Urobilinogen Normal, Ur Leukocyte Esterase 100 H, Urine RBC 0-5 SEEN, Urine WBC 5-10 SEEN, Ur Squamous Epith Cells 0 SEEN, Urine Bacteria 3+, Urine Mucus 0 SEEN Radiology Impression Chest X-Ray 07/27/22 03:45 IMPRESSION: Mild pulmonary edema. Electronically Signed: Robert Solano MD at 4:02 EST , Assessment & Plan Assessment/Plan (1) Acute on chronic respiratory failure: (2) Pulmonary edema: (3) HTN (hypertension): (4) Atherosclerosis of coronary artery bypass graft without angina pectoris: QUALIFIERS: [place] vs. transplanted heart: [place] heart Qualified Code(s): I25.810 - Atherosclerosis of coronary artery bypass graft(s) without angina pectoris (5) Ischemic cardiomyopathy: PLAN: Plan #Acute hypoxic respiratory failure in setting of JIM on CPAP and ischemic cardiomyopathy -Was hypoxic at 70% on nonrebreather and 80% on CPAP but improved on BiPAP in ED -Chest x-ray with mild pulmonary edema -Last echocardiogram 08/2021 with an EF of 50%, stage I diastolic dysfunction, moderately enlarged left and right atrium's, will repeat given this has been almost 1 year ago -BNP slightly elevated at 307, troponin within normal limits -Appears to be volume overloaded -We will treat with IV diuresis -Daily weights, I's and O's -N.p.o. while BiPAP dependent -ABG ordered #Urinary tract infection -Clamp with clean-catch from Lane in ED suggestive of UTI -Rocephin started in the ED, given risk factors will cover with cefepime #History of CVA 3 years ago -Had previous CVA and then fell down 13 concrete steps and had multiple bleeds -Remains partially paralyzed and largely bedridden -Has ostomy and chronic Lane -Continue aspirin and statin #History of ischemic cardiomyopathy -Last echocardiogram 08/2021 with an EF of 50%, stage I diastolic dysfunction, moderately enlarged left and right atrium's, will repeat given this has been almost 1 year ago -Is presently on Entresto and Coreg as well spironolactone, will continue these #Coronary artery disease status post coronary bypass in 2001 -Continue aspirin, statin, Brilinta -Follows with Dr. Peña's office #Type 2 diabetes mellitus -We will continue long-acting at lower dose given n.p.o. at this time and continue glucose checks and sliding scale insulin #DVT ppx: SCDs, subcu Lovenox twice daily Maxine Paez MD Time spent in the patient's overall evaluation,decision-making process, review of diagnostic data, adjustment of management, discussion with other providers, nursing nursing and ancillary staff involved in patient's care documentation, 60 minutes Charges/Coding Visit Charges Inpatient E&M: 49117 Init Hosp L2
[2022-07-27 06:21] LABS: Troponin-I HS 28 pg/mL (3.0-78.0)
--- NOTE | 2022-07-27 07:08 | ECHOCS_ITS ---
Reason For Study: DYSPNEA/SOB Procedure This was a 2D Doppler, Color Flow transthoracic echocardiogram. The study was technically difficult. Exam performed portable in patient room. Left Ventricle Normal LV size. The left ventricular ejection fraction is 45 %. Stage 1 diastolic dysfunction. There is mild global hypokinesis of the left ventricle. Right Ventricle Normal RV size. Normal systolic function. Atria The left atrium is mildly enlarged. The right atrium is mildly enlarged. Mitral Valve Mitral valve not well visualized. Tricuspid Valve Normal tricuspid valve. Aortic Valve Trisinus/trileaflet aortic valve. Pulmonic Valve The pulmonic valve is not well visualized. Great Vessels Normal aortic root. Pericardium/Pleural No pericardial effusion. Medication Diluted definity 3ml given slow IV push to enhance endocardial definition. MMode/2D Measurements & Calculations LVIDd: 7.2 cm IVSd: 0.82 cm Ao root diam: 3.6 cm LVIDs: 5.5 cm LVPWd: 1.0 cm RVDd: 3.9 cm FS: 22.9 % LAV(MOD-bp): 76.4 ml LVAd ap4: 43.3 cm2 SV(MOD-sp4): 81.1 ml LAV(MOD-bp) Indexed: 29.1 ml/m2 LVLd ap4: 8.5 cm LAV(MOD-sp2): 71.6 ml EDV(MOD-sp4): 177.0 ml LAV(MOD-sp4): 77.7 ml EDV(sp4-el): 186.6 ml LVAs ap4: 30.6 cm2 LVLs ap4: 8.0 cm ESV(MOD-sp4): 95.9 ml ESV(sp4-el): 98.7 ml EF(MOD-sp4): 45.8 % EF(sp4-el): 47.1 % SV(sp4-el): 87.9 ml LA A4 area: 24.4 cm2 LA dimension(2D): 4.2 cm RA A4 area: 21.6 cm2 Time Measurements MV dec time: 0.16 sec Doppler Measurements & Calculations MV E max elijah: 79.1 cm/sec Lat Peak E' Elijah: 10.2 cm/sec Med Peak E' Elijah: 8.7 cm/sec MV A max elijah: 90.3 cm/sec E/E' lat: 7.8 E/E' med: 9.1 MV E/A: 0.88 Ao V2 max: 132.4 cm/sec LV V1 max: 105.1 cm/sec PA V2 max: 93.7 cm/sec Ao max P.0 mmHg LV V1 max P.4 mmHg ECHO/Echo Complete W/ Contrast Interpretation Summary Normal LV size. The left ventricular ejection fraction is 45 %. There is mild global hypokinesis of the left ventricle. Stage 1 diastolic dysfunction. The left atrium is mildly enlarged. The right atrium is mildly enlarged. Contrast injection was performed. Ordering Physician: Maxine Paez Referring Physician: Monisha Damon Performed By: Zeny Jacome RDCS
[2022-07-27 08:11] LABS: Allen Test Positive; Base Excess 1 mmol/L (-2 to +2); Bicarbonate 25.7 mmol/L (22-26); Blood Gas Specimen Type ART; Comment 18/8; FI02 35; Mode BiLevel; O2 Delivery Device BiPAP; PEEP 8; PO2 109 mmHG (75-100); RR 12; SITE L Brach; SO2 98 % (95-99); Total Carbon Dioxide 27 mmol/L; pCO2 40.7 mmHg (35-45); pH 7.41 (7.35-7.45)
[2022-07-27 08:26] LABS: Bedside Glucose 260 mg/dL (74-106)
[2022-07-27] MEDS: Insulin Lispro 100 UNIT/ML INSULN.PEN SC ×4 (08:35→22:05)
[2022-07-27] MEDS: Furosemide 40 MG/4 ML Vial IV ×2 (09:55→17:25)
[2022-07-27] MEDS: SACUBITRIL/VALSARTAN 49-51 MG TABLET 1 EACH PO ×2 (09:55→21:58)
[2022-07-27] MEDS: TICAGRELOR 90 MG TABLET PO ×2 (09:55→21:58)
[2022-07-27] MEDS: Amantadine 100 MG Capsule PO (09:55)
[2022-07-27] MEDS: 0.9% Saline Lock 10 ML Syringe IV ×2 (09:55→17:25)
[2022-07-27] MEDS: Carvedilol 25 MG Tablet PO ×2 (09:55→21:58)
[2022-07-27] MEDS: Aspirin E.C. 81 MG Tablet PO (09:55)
[2022-07-27] MEDS: Pantoprazole Sodium 40 MG Tablet PO (09:55)
[2022-07-27] MEDS: Acetaminophen 325 MG Tablet 650 MG PO ×2 (09:55→22:22)
[2022-07-27] MEDS: Enoxaparin 40 MG/0.4 ML Syringe SC ×2 (09:56→22:05)
[2022-07-27] MEDS: Spironolactone 25 MG Tablet PO (09:56)
[2022-07-27 12:30] LABS: Bedside Glucose 228 mg/dL (74-106)
--- NOTE | 2022-07-27 15:43 | PN.HOSP_ITS ---
Hospitalist Note Mr. Vargas is a 72-year-old white male who resides at [facility] who presented to the emergency department early this morning with worsening shortness of breath and hypoxia. Patient evidently had not been feeling well throughout the day and there was concern he may have a urinary tract infection. The plan was to start him on antibiotics but he was found to be hypoxic with sats 70% on a Ventimask prior to EMS arrival. He was placed on CPAP at that time and still satting around 80% in route to the hospital. Chest x-ray was suggestive of possible edema and he was given 80 of IV Lasix along with Nitropaste in the emergency department. He did not wear his CPAP the night before admission but had been feeling unwell complaining of shortness of breath and having a slight cough. At the time of hospitalist evaluation the emergency department he was feeling much better. His CBC did show a mild leukocytosis with a white count of 12.1 but no left shift was present. His blood gas was overall unremarkable showing a pH of 7.41/PCO2 of 40.7/PO2 of 109 and this was on BiPAP at 18/8. Chemistry panel showed hyperglycemia with a blood sugar of 320 and his BNP was elevated at 307.7 which is elevated compared to previous. Cardiac enzymes have been unremarkable. He is on Lasix 40 mg p.o. twice daily. We have placed him on Lasix 40 mg IV push twice daily and today he is now weaned to 2 L nasal cannula which appears to be his baseline when compared to previous data. His UA was consistent with urinary tract infection. Blood and urine cultures have been obtained and are currently pending. He will be maintained on empiric antibiotics with cefepime. Given his rapid improvement, as long as he remains stable he may be able to return to his facility tomorrow with antibiotic use. Will discuss with case management in the morning.
--- NOTE | 2022-07-27 16:18 | CPS ---
Pt states he just did smi and pep and refused to do it again at this time.
[2022-07-27 16:51] LABS: Bedside Glucose 230 mg/dL (74-106)
[2022-07-27] MEDS: Nystatin Powder 15gm Bottle 1 APPLIC TOPICAL (21:57)
[2022-07-27] MEDS: DULoxetine Hcl 60 MG Capsule PO (21:58)
[2022-07-27] MEDS: Pravastatin 80 MG Tablet PO (21:58)
[2022-07-27] MEDS: Pramipexole Di-HCl 0.25 MG Tablet PO (21:58)
[2022-07-27] MEDS: Insulin Glargine-YFGN 100 UNIT/ML Pen 10 UNIT SC (21:59)
[2022-07-27] MEDS: traZODone 100 MG Tablet PO (22:08)
[2022-07-27] MEDS: MELATONIN 3 MG TABLET PO (22:22)
[2022-07-27 22:25] LABS: Bedside Glucose 206 mg/dL (74-106)
[2022-07-28 02:04] VITALS: RESP 12; RESP 22; O2SAT 95
[2022-07-28 02:55] VITALS: BP 120/55; PULSE 95; RESP 12; TEMP 36.9; O2SAT 97
[2022-07-28 05:54] LABS: Absolute Lymphocyte Count 1.34 X10^3/uL (0.83-4.51); Absolute Neutrophil Count 5.9 X10^3/uL (2.0-7.7); Basophil# 0.06 X10^3/uL; Basophil% 0.7 % (0-1); Eosinophil# 0.13 X10^3/uL; Eosinophils% 1.6 % (0-5); Hematocrit 35.6 % (40-54); Hemoglobin 11.3 g/dL (13.0-16.5); Lymphocyte # 1.34 X10^3/ul (0.83-4.51); Lymphocyte % 16.3 % (19-41); Mean Corp Hgb Conc 31.7 g/dL (32-36); Mean Corpuscular Hgb 29.7 pg (27.0-32.0); Mean Corpuscular Volume 93.4 fL (80-94); Mean Platelet Vol. 11.4 fl (6.2-12.0); Monocyte# 0.78 X10^3/uL; Monocyte% 9.5 % (0-10); NRBC Flagged by Analyzer 0 % (0-5); Neutrophil # 5.88 X10^3/uL (2.7-7.7); Neutrophil % 71.4 % (47-70); Platelet Count 177 K/mm3 (150-450); RBC Distribution Width CV 14.5 % (11.6-14.6); RBC Distribution Width SD 49.5 fl (35.1-43.9); Red Blood Count 3.81 M/mm3 (4.6-6.2); White Blood Count 8.2 K/mm3 (4.4-11.0)
[2022-07-28 06:37] LABS: ALB/GLOB Ratio 0.9 RATIO (0.9-2.4); AST(SGOT) 15 U/L (15-37); Alanine Aminotransfer ALT/SGPT 28 U/L (16-61); Albumin, Serum 3.2 g/dL (3.2-5.0); Alkaline Phosphatase 83 U/L (45-117); Anion Gap 7 (5-15); BUN 22 mg/dL (7-18); BUN/Creat Ratio 22.3 RATIO (10-20); Calcium,Total 8.6 mg/dL (8.5-10.1); Chloride 103 mmol/L (98-107); Creatinine, Serum 0.99 mg/dL (0.70-1.30); EST Glomerular Filtration Rate 79 mL/min (>60); Est Glom Filt Rate - Afr Amer 96 mL/min (>60); Estimated Creatinine Clearance 78.42 ml/min; Globulin 3.5 g/dL (2.2-4.2); Glucose 209 mg/dL (74-106); Magnesium 1.9 mg/dL (1.6-2.6); Potassium 3.4 mmol/L (3.5-5.1); Protein, Total 6.7 g/dL (6.4-8.2); Sodium Level 136 mmol/L (136-145)
[2022-07-28] MEDS: Insulin Lispro 100 UNIT/ML INSULN.PEN SC ×2 (06:49→11:10)
[2022-07-28 07:00] VITALS: PULSE 80
[2022-07-28 07:00] LABS: Bedside Glucose 212 mg/dL (74-106)
[2022-07-28 07:46] VITALS: O2SAT 97
--- NOTE | 2022-07-28 08:55 | CASEMGMT ---
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 SW sent updates to [facility]. Per yesterday's physician note patient may be ready for d/c today. SW mentioned this to [facility]. Plan: d/c back to [facility] under intermediate level of care. Nydia MADDEN
[2022-07-28 09:15] VITALS: BP 138/67; PULSE 88; RESP 18; TEMP 36.6; O2SAT 94
[2022-07-28] MEDS: Spironolactone 25 MG Tablet PO (09:17)
[2022-07-28] MEDS: TICAGRELOR 90 MG TABLET PO (09:17)
[2022-07-28] MEDS: Aspirin E.C. 81 MG Tablet PO (09:17)
[2022-07-28] MEDS: Carvedilol 25 MG Tablet PO (09:18)
[2022-07-28] MEDS: Enoxaparin 40 MG/0.4 ML Syringe SC (09:18)
[2022-07-28] MEDS: Furosemide 40 MG/4 ML Vial IV (09:18)
[2022-07-28] MEDS: SACUBITRIL/VALSARTAN 49-51 MG TABLET 1 EACH PO (09:18)
[2022-07-28] MEDS: Amantadine 100 MG Capsule PO (09:19)
[2022-07-28] MEDS: Loratadine 10 MG Tablet PO (09:23)
[2022-07-28] MEDS: Pantoprazole Sodium 40 MG Tablet PO (09:23)
[2022-07-28] MEDS: Gabapentin 300 MG Capsule PO (09:23)
[2022-07-28] MEDS: Potassium Chloride Oral Tablet 20 MEQ 40 MEQ PO (11:08)
[2022-07-28 11:35] LABS: Bedside Glucose 302 mg/dL (74-106)
--- NOTE | 2022-07-28 12:47 | PCM.TXEXTCAR ---
Diet Diet Order/Speech Therapy: 07/27/22 11:03 Diet: Cardiac: Calorie-Controlled Is pt able to select menu?: Yes How many daily calories?: 1800 calorie Routine Orders/Code Status Suppository Frequency: Daily PRN O2 Liters per Minute: 2 L bleed at hs and PRN Keep PO Greater than or Equal to (%): 88 Routine Lab Work: BMP (1 week) Code Status: DNRCC-A (no intubation) Problem/Diagnosis (1) Acute on chronic respiratory failure: Status: Chronic Code(s): J96.20 - Acute and chronic respiratory failure, unspecified whether with hypoxia or hypercapnia (2) Pulmonary edema: Status: Acute Code(s): J81.1 - Chronic pulmonary edema (3) HTN (hypertension): Status: Chronic Code(s): I10 - Essential (primary) hypertension (4) Atherosclerosis of coronary artery bypass graft without angina pectoris: Status: Chronic Code(s): I25.810 - Atherosclerosis of coronary artery bypass graft(s) without angina pectoris (5) Ischemic cardiomyopathy: Status: Chronic Code(s): I25.5 - Ischemic cardiomyopathy Allergies/Procedures Done in Hospital Allergies atorvastatin Allergy (Verified 07/27/22 03:13) PT UNSURE OF REACTION cilostazol Allergy (Verified 07/27/22 03:13) Hives colestipol Allergy (Verified 07/27/22 03:13) Hives diltiazem Allergy (Verified 07/27/22 03:13) Hives gemfibrozil Allergy (Verified 07/27/22 03:13) Hives naproxen [From Naprosyn] Allergy (Verified 07/27/22 03:13) Hives niacin Allergy (Verified 07/27/22 03:13) PT UNSURE OF REACTION Nitrate Analogues Allergy (Verified 07/27/22 03:13) Hives Penicillins Allergy (Verified 07/27/22 03:13) Hives pravastatin Allergy (Verified 07/27/22 03:13) NEEDS FOLLOW-UP procainamide Allergy (Verified 07/27/22 03:13) Hives procaine Allergy (Verified 07/27/22 03:13) NEEDS FOLLOW-UP rosuvastatin Allergy (Verified 07/27/22 03:13) Hives simvastatin Allergy (Verified 07/27/22 03:13) Hives isosorbide Adverse Reaction (Severe, Verified 07/27/22 03:13) Unknown Type of Care/Length of Stay Estimated LOS: More Than 30 Days Type of Care Needed: Intermediate Rehab Potential: Poor Prognosis: Poor Additional Orders/Day of Discharge Day of Discharge: 07/28/22 Discharge Plan Admission Admit Date/Time: 07/27/22 05:47 Attending Provider: Jenniffer Padilla Primary Care Provider: Phillip Lindo Consulting Providers: Maxine Paez Discharge Orders/Prescriptions Prescriptions: No Action aluminum-magnesium hydroxide 225-200 mg/5 mL suspension 30 ml PO Q4H PRN (Reason: GI distress) bisacodyl 10 mg suppository 10 mg GA DAILY PRN (Reason: constipaiton) duloxetine 60 mg capsule,delayed release(DR/EC) 30 mg PO BID Fleet Enema 19-7 gram/118 mL enema 118 ml GA ONCE PRN (Reason: Constipation) guaifenesin 200 mg/5 mL liquid 10 mg PO Q4H PRN (Reason: Cough) magnesium hydroxide [Milk of Magnesia] 400 mg/5 mL suspension 30 ml PO DAILY PRN (Reason: consipation) nystatin 100,000 unit/gram powder 1 applic topical DAILY PRN (Reason: excoriation) fluoxetine 40 mg capsule 60 mg PO QPM trazodone 50 mg tablet 100 mg PO QHS Entresto 49-51 mg tablet 1 tab PO BID Qty: 60 11RF amantadine HCl 100 MG capsule 100 mg PO DAILY pravastatin 80 MG tablet 80 mg PO QHS pantoprazole 40 MG tablet 40 mg PO DAILY pramipexole 0.25 MG tablet 0.25 mg PO QHS nitroglycerin 0.4 MG tablet, sublingual 0.4 mg sublingual PRN PRN (Reason: CHEST PAIN) aspirin 81 MG tablet,chewable 81 mg PO DAILY@0800 oxycodone 5 MG tablet 5 mg PO Q6H PRN PRN (Reason: Pain Or Fever) insulin aspart U-100 [Novolog FlexPen U-100 Insulin] 100 UNITS/ML insulin pen See Protocol SC TIDCM Protocol: 6. Sliding Scale Insulin Custom Condition: mg/dl range Dose/Route: Number of Units Condition: 150-199 Dose/Route: 2 Condition: 200-259 Dose/Route: 4 Condition: 260-324 Dose/Route: 6 Condition: 325-374 Dose/Route: 8 Condition: 375-409 Dose/Route: 10 Condition: 410-449 Dose/Route: 11 Protocol Text: Custom Sliding Scale Rx Instructions: sliding scale sennosides-docusate sodium 1 EACH tablet 2 ea PO BID melatonin 3 MG tablet,disintegrating 3 mg PO QHS tamsulosin 0.4 mg Capsule 0.4 mg PO QHS fluticasone propionate 110 mcg/actuation Hfa Aerosol Inhaler 1 puff INHALATION BID insulin aspart U-100 [Novolog FlexPen U-100 Insulin] 100 unit/mL (3 mL) Insulin Pen 15 unit SUBCUT TIDCM Brilinta 90 mg Tablet 90 mg PO BID furosemide 40 mg tablet 40 mg PO BID Qty: 0 0RF carvedilol 25 mg Tablet 25 mg PO BID Qty: 0 0RF potassium chloride 20 mEq tablet,ER particles/crystals 40 meq PO DAILY 90 Days Qty: 90 0RF insulin glargine [Lantus Solostar U-100 Insulin] 100 unit/mL (3 mL) Insulin Pen 28 unit SUBCUT QPM spironolactone 25 mg tablet 25 mg PO DAILY Qty: 30 0RF cetirizine [Zyrtec] 10 mg Tablet 10 mg PO DAILY gabapentin 300 mg capsule 300 mg PO DAILY guaifenesin [Mucinex] 600 mg Tablet Extended Release 12hr 600 mg PO Q24H PRN (Reason: Sinus Symptoms) acetaminophen 500 MG tablet 650 mg PO Q6H PRN PRN (Reason: Mild Pain (-08/15)) Referrals / Follow Up: Phillip Lindo MD [Primary Care Provider] - (1) Atherosclerosis of coronary artery bypass graft without angina pectoris Qualifiers: [place] vs. transplanted heart: [place] heart Qualified Code(s): I25.810 - Atherosclerosis of coronary artery bypass graft(s) without angina pectoris
--- NOTE | 2022-07-28 12:48 | PCM.DC.SUM ---
Providers Date of Admission: 07/27/22 Date of Discharge: 07/28/22 Primary Care Physician: Dr. Phillip Lindo MD Reason For Visit: ACUTE HYPOXIC RESP FAILURE Diagnosis Discharge Diagnosis (1) Acute on chronic respiratory failure: Status: Chronic Code(s): J96.20 - Acute and chronic respiratory failure, unspecified whether with hypoxia or hypercapnia (2) Pulmonary edema: Status: Acute Code(s): J81.1 - Chronic pulmonary edema (3) HTN (hypertension): Status: Chronic Code(s): I10 - Essential (primary) hypertension (4) Atherosclerosis of coronary artery bypass graft without angina pectoris: Status: Chronic Code(s): I25.810 - Atherosclerosis of coronary artery bypass graft(s) without angina pectoris Qualifiers: [place] vs. transplanted heart: [place] heart Qualified Code(s): I25.810 - Atherosclerosis of coronary artery bypass graft(s) without angina pectoris (5) Ischemic cardiomyopathy: Status: Chronic Code(s): I25.5 - Ischemic cardiomyopathy Medications at Discharge Home Medications amantadine HCl 100 mg capsule 100 mg PO DAILY [place] 04/17/18 pantoprazole 40 mg tablet,delayed release 40 mg PO DAILY STOMACH 04/17/18 pramipexole 0.25 mg tablet 0.25 mg PO QHS [place]INSON[place] 04/17/18 pravastatin 80 mg tablet 80 mg PO QHS CHOLESTEROL 04/17/18 nitroglycerin 0.4 mg sublingual tablet 0.4 mg sublingual PRN PRN CHEST PAIN 02/20/19 aspirin 81 mg chewable tablet 81 mg PO DAILY@0800 [facility] 02/24/19 insulin aspart U-100 100 unit/mL (3 mL) subcutaneous pen (Novolog FlexPen U-100 Insulin aspart) See Protocol subcut TIDCM blood sugar 09/14/19 oxycodone 5 mg tablet 5 mg PO Q6H PRN PRN Pain Or Fever 09/14/19 sennosides 8.6 mg-docusate sodium 50 mg tablet 2 ea PO BID constipation 01/02/20 melatonin 3 mg disintegrating tablet 3 mg PO QHS sleep 09/14/20 fluticasone propionate 110 mcg/actuation HFA aerosol inhaler 1 puff inhalation BID allergies 02/17/21 insulin aspart U-100 100 unit/mL (3 mL) subcutaneous pen (Novolog FlexPen U-100 Insulin aspart) 15 unit subcut TIDCM blood sugar 02/17/21 tamsulosin 0.4 mg capsule 0.4 mg PO QHS prostate 02/17/21 ticagrelor 90 mg tablet (Brilinta) 90 mg PO BID heart 02/17/21 furosemide 40 mg tablet 40 mg PO BID CHF #0 tabs 02/18/21 carvedilol 25 mg tablet 25 mg PO BID #0 tabs 02/20/21 potassium chloride 20 mEq tablet,extended release(part/cryst) 40 meq PO DAILY supplement 90 days #90 tabs 02/20/21 insulin glargine 100 unit/mL (3 mL) subcutaneous pen (Lantus Solostar U-100 Insulin) 28 unit subcut QPM DM 04/25/21 spironolactone 25 mg tablet 25 mg PO DAILY #30 tabs 04/29/21 aluminum-magnesium hydroxide 225 mg-200 mg/5 mL oral suspension 30 ml PO Q4H PRN GI distress 10/11/21 bisacodyl 10 mg rectal suppository 10 mg SD DAILY PRN constipaiton 10/11/21 duloxetine 60 mg capsule,delayed release 30 mg PO BID depression 10/11/21 fluoxetine 40 mg capsule 60 mg PO QPM depression 10/11/21 guaifenesin 200 mg/5 mL oral liquid 10 mg PO Q4H PRN Cough 10/11/21 magnesium hydroxide 400 mg/5 mL oral suspension (Milk of Magnesia) 30 ml PO DAILY PRN consipation 10/11/21 nystatin 100,000 unit/gram topical powder 1 applic topical DAILY PRN excoriation 10/11/21 sacubitril 49 mg-valsartan 51 mg tablet (Entresto) 1 tab PO BID #60 tabs 10/11/21 sodium phosphates 19 gram-7 gram/118 mL enema (Fleet Enema) 118 ml SD ONCE PRN Constipation 10/11/21 trazodone 50 mg tablet 100 mg PO QHS sleep 10/11/21 acetaminophen 500 mg tablet 650 mg PO Q6H PRN PRN Mild Pain (1-3/10) 07/27/22 cetirizine 10 mg tablet (Zyrtec) 10 mg PO DAILY sinus 07/27/22 gabapentin 300 mg capsule 300 mg PO DAILY neuropathy 07/27/22 guaifenesin 600 mg tablet, extended release 12 hr (Mucinex) 600 mg PO Q24H PRN Sinus Symptoms 07/27/22 levofloxacin 750 mg tablet 750 mg PO DAILY #9 tabs 07/28/22 Hospital Course Operations None Procedures 2-D Echocardiogram, EKG and - (CXR) Summary of Care Provided Minutes Spent on Discharge: 38 Hospital Course: Mr. Vargas is a 72-year-old white male who resides at [facility] who presented to the emergency department early this morning with worsening shortness of breath and hypoxia.? Patient evidently had not been feeling well throughout the day and there was concern he may have a urinary tract infection.? The plan was to start him on antibiotics but he was found to be hypoxic with sats 70% on a Ventimask prior to EMS arrival.? He was placed on CPAP at that time and still satting around 80% in route to the hospital.? Chest x-ray was suggestive of possible edema and he was given 80 of IV Lasix along with Nitropaste in the emergency department.? He did not wear his CPAP the night before admission but had been feeling unwell complaining of shortness of breath and having a slight cough.? At the time of hospitalist evaluation the emergency department he was feeling much better.? His CBC did show a mild leukocytosis with a white count of 12.1 but no left shift was present.? His blood gas was overall unremarkable showing a pH of 7.41/PCO2 of 40.7/PO2 of 109 and this was on BiPAP at 18/8.? Chemistry panel showed hyperglycemia with a blood sugar of 320 and his BNP was elevated at 307.7 which is elevated compared to previous.? Cardiac enzymes have been unremarkable.? He is on Lasix 40 mg p.o. twice daily at baseline.? BiPAP was continued and he was placed on IV Lasix along with IV antibiotics to treat suspected urinary tract infection. By the morning of 07/27/2021 at around 10 AM he was dramatically better and we will able to remove him from BiPAP. He was weaned from BiPAP directly to 2 L nasal cannula and this was able to be weaned throughout the day. On 07/28/2022 he was requiring no supplemental oxygen during the day which is his baseline. Sats were 95%. Patient does utilize oxygen with a 2 L bleed into his BiPAP at night. With his respiratory distress we did obtain an echocardiogram and this showed an EF of 45% with mild global hypokinesis of the LV and stage I diastolic dysfunction, biatrial enlargement was mild. This is not all that different from his previous echocardiogram. His urine culture was positive for 2 gram-negative organisms and identification was pending at discharge on Levaquin to complete a total of a 10-day course given the fact that he has a suprapubic catheter. I have asked the nursing facility to replace his suprapubic catheter upon return to his facility as we are unable to do this here. Respiratory work-up was unremarkable with a negative COVID/flu and a negative respiratory viral panel. Patient was not producing sputum. Blood cultures were +1 of 2 however this was for coag negative staph and a suspected contaminant. Given the fact the patient is back on his baseline oxygen as noted above and clinically much improved. We will go ahead and discharge him back to his facility. I will keep an eye on his finalized cultures and change any antibiotics if there are any resistance patterns noted to Levaquin. He was discharged back to his nursing facility at [facility] on 07/28/2022 in stable condition. Would like him to follow-up with the primary care physician at the facility within the next week. Patient did improve much more rapidly than we anticipated at the time of admission. Discharge diagnoses: Acute hypoxic respiratory failure Urinary tract infection-complicated Ischemic cardiomyopathy History of stroke CAD status post CABG in 2001 DM-2 Parkinson's disease Hypertension Seasonal allergies Depression Neuropathy GERD Hyperlipidemia Const patient BPH Insomnia Morbid obesity JIM Suspected OHS Physical Exam Const alert, oriented x3, no apparent distress and well nourished Constitutional Narrative: Morbidly obese, white male, sitting up in bed, watching television, at bedside, patient on room air General Appearance: cooperative, comfortable, well kempt and well developed Orientation / Consciousness: awake, oriented to person, oriented to place and oriented to time Exam Limitations: no limitations Nutritional Appearance: morbidly obese HEENT normocephalic, head/scalp atraumatic, hearing grossly normal bilaterally and moist oral mucous membranes HEENT Narrative: Mallampati 3-4, dentition is fair for age, no thrush Eyes PERRL, EOMs intact bilaterally and conjunctivae normal Eyes Narrative: No scleral icterus Neck no lymphadenopathy and supple Neck Narrative: Neck is short and thick, trachea midline Resp normal respiratory effort, no retractions and no use of accessory muscles Resp Narrative: Diffusely diminished but clear, on room air Auscultation: Negative for rales, rhonchi or wheezes Cardio regular rate, regular rhythm, S1 normal heart sound, S2 normal heart sound, no murmurs, no rub, no gallops, no clicks and no JVD GI normal to inspection, nondistended, normoactive bowel sounds, soft to palpation and non-tender GI Narrative: Large protuberant abdomen Extremity Extremity Narrative: Bilateral lower extremity chronic venous stasis with pitting edema but no cyanosis or clubbing Skin no wounds, skin turgor normal and no jaundice Skin Narrative: Lower extremities as above Neuro oriented x3, CN's II-XII intact bilaterally, moves all extremities and no focal motor deficits Neuro Narrative: Marked generalized weakness noted Speech: speech normal Psych affect normal Psych Narrative: Appropriately interactive Weight / BMI Weight Weight: 148.9 kg Body Mass Index (BMI) 42.3 ABG / Lab / Microbiology Data Result Diagrams: 07/28/22 05:24 07/28/22 05:24 Laboratory: Laboratory Results - last 24 hr 07/27/22 16:29: POC Glucose 230 H 07/27/22 22:03: POC Glucose 206 H 07/28/22 05:24: WBC 8.2, RBC 3.81 L, Hgb 11.3 L, Hct 35.6 L, MCV 93.4, MCH 29.7, MCHC 31.7 L, RDW Std Deviation 49.5 H, RDW Coeff of Sherin 14.5, Plt Count 177, MPV 11.4, Immature Gran % (Auto) 0.500, Neut % (Auto) 71.4 H, Lymph % (Auto) 16.3 L, [place] % (Auto) 9.5, Eos % (Auto) 1.6, Baso % (Auto) 0.7, Absolute Neuts (auto) 5.9, Absolute Lymphs (auto) 1.34, Nucleated RBC % 0 07/28/22 05:24: Sodium 136, Potassium 3.4 L, Chloride 103, Carbon Dioxide 26.0, Anion Gap 7, BUN 22 H, Creatinine 0.99, Estim Creat Clear Calc 78.42, Est GFR (MDRD) Af Amer 96, Est GFR (MDRD) Non-Af 79, BUN/Creatinine Ratio 22.3 H, Glucose 209 H, Calcium 8.6, Magnesium 1.9, Total Bilirubin 0.50, AST 15, ALT 28, Alkaline Phosphatase 83, Total Protein 6.7, Albumin 3.2, Globulin 3.5, Albumin/Globulin Ratio 0.9 07/28/22 06:40: POC Glucose 212 H 07/28/22 11:09: POC Glucose 302 H Microbiology: Microbiology 07/27/22 04:56 Urine Catheter - Lane Urine Culture - Preliminary GNR non storage engineer GNR non storage engineer#2 07/27/22 03:13 Blood Culture (Wb) - Anticubital Left Bacteria Detection (PCR) - Final Coag Negative Staph 07/27/22 03:13 Blood Culture (Wb) - Anticubital Left Blood Culture - Preliminary 07/27/22 07:37 Mucosa - Nasopharyngeal Respiratory Panel (PCR) - Final 07/27/22 08:09 Nasal Secretion SARS-CoV-2 & FLU Antigen (Rapid) - Final Meaningful Use Info Meaningful Use Diagnoses (Choose all that apply): None applicable Discharge Plan Admission Admit Date/Time: 07/27/22 05:47 Primary Reason for Your Visit: hypoxia Attending Provider: Jenniffer Padilla Primary Care Provider: Phillip Lindo Consulting Providers: Maxine Paez Instructions Additional Instructions / Restrictions: Please change suprapubic catheter on either 07/28/2022 or 07/29/2022 Discharge Orders/Prescriptions Prescriptions: New levofloxacin 750 mg tablet 750 mg PO DAILY Qty: 9 0RF Continued aluminum-magnesium hydroxide 225-200 mg/5 mL suspension 30 ml PO Q4H PRN (Reason: GI distress) bisacodyl 10 mg suppository 10 mg SD DAILY PRN (Reason: constipaiton) duloxetine 60 mg capsule,delayed release(DR/EC) 30 mg PO BID Fleet Enema 19-7 gram/118 mL enema 118 ml SD ONCE PRN (Reason: Constipation) guaifenesin 200 mg/5 mL liquid 10 mg PO Q4H PRN (Reason: Cough) magnesium hydroxide [Milk of Magnesia] 400 mg/5 mL suspension 30 ml PO DAILY PRN (Reason: consipation) nystatin 100,000 unit/gram powder 1 applic topical DAILY PRN (Reason: excoriation) fluoxetine 40 mg capsule 60 mg PO QPM trazodone 50 mg tablet 100 mg PO QHS Entresto 49-51 mg tablet 1 tab PO BID Qty: 60 11RF amantadine HCl 100 MG capsule 100 mg PO DAILY pravastatin 80 MG tablet 80 mg PO QHS pantoprazole 40 MG tablet 40 mg PO DAILY pramipexole 0.25 MG tablet 0.25 mg PO QHS nitroglycerin 0.4 MG tablet, sublingual 0.4 mg sublingual PRN PRN (Reason: CHEST PAIN) aspirin 81 MG tablet,chewable 81 mg PO DAILY@0800 oxycodone 5 MG tablet 5 mg PO Q6H PRN PRN (Reason: Pain Or Fever) insulin aspart U-100 [Novolog FlexPen U-100 Insulin] 100 UNITS/ML insulin pen See Protocol SC TIDCM Protocol: 6. Sliding Scale Insulin Custom Condition: mg/dl range Dose/Route: Number of Units Condition: 150-199 Dose/Route: 2 Condition: 200-259 Dose/Route: 4 Condition: 260-324 Dose/Route: 6 Condition: 325-374 Dose/Route: 8 Condition: 375-409 Dose/Route: 10 Condition: 410-449 Dose/Route: 11 Protocol Text: Custom Sliding Scale Rx Instructions: sliding scale sennosides-docusate sodium 1 EACH tablet 2 ea PO BID melatonin 3 MG tablet,disintegrating 3 mg PO QHS tamsulosin 0.4 mg Capsule 0.4 mg PO QHS fluticasone propionate 110 mcg/actuation Hfa Aerosol Inhaler 1 puff INHALATION BID insulin aspart U-100 [Novolog FlexPen U-100 Insulin] 100 unit/mL (3 mL) Insulin Pen 15 unit SUBCUT TIDCM Brilinta 90 mg Tablet 90 mg PO BID furosemide 40 mg tablet 40 mg PO BID Qty: 0 0RF carvedilol 25 mg Tablet 25 mg PO BID Qty: 0 0RF potassium chloride 20 mEq tablet,ER particles/crystals 40 meq PO DAILY 90 Days Qty: 90 0RF insulin glargine [Lantus Solostar U-100 Insulin] 100 unit/mL (3 mL) Insulin Pen 28 unit SUBCUT QPM spironolactone 25 mg tablet 25 mg PO DAILY Qty: 30 0RF cetirizine [Zyrtec] 10 mg Tablet 10 mg PO DAILY gabapentin 300 mg capsule 300 mg PO DAILY guaifenesin [Mucinex] 600 mg Tablet Extended Release 12hr 600 mg PO Q24H PRN (Reason: Sinus Symptoms) acetaminophen 500 MG tablet 650 mg PO Q6H PRN PRN (Reason: Mild Pain (-08/15)) Referrals / Follow Up: Phillip Lindo MD [Primary Care Provider] - Disposition Disposition (needs filled in before D/C Order can be placed): Care Home Facility Charges/Coding Visit Charges Inpatient E&M: 19214 Disch Hosp >30min
--- NOTE | 2022-07-28 13:27 | CASEMGMT ---
Patient is ready for discharge back to [facility] today. SW sent orders and d/c med list to [facility] via [facility]. SW called [facility] and arranged for patient to get picked up at 1530 via cot. SW notified patient, his , legal secretary receptionist, cupola charger who notified patient, and [facility]. Plan: d/c back to [facility] under intermediate level of care. [facility] transported via cot. Nydia MADDEN
--- NOTE | 2022-07-28 13:31 | NURSING ---
report called to Sima JENSEN at [facility]
--- NOTE | 2022-07-28 13:47 | CASEMGMT ---
Patient has a Healthcare Power of Filling Separator and Healthcare Living Will on file at [facility]. Patient's Farideh is patient's Healthcare Power of Filling Separator. Nydia MADDEN
[2022-07-28 15:15] VITALS: BP 149/87; PULSE 79; RESP 18; TEMP 36.8; O2SAT 94
== END 2022-07-28 15:49 | disposition skilled nursing facility (03) | DRG 189 ==
LOC: ED 04:46 → PCU 05:56
PROVIDERS: Admitting Provider Internal Medicine; Emergency Provider Emergency Medicine; PCP Family Medicine; Referring Provider Emergency Medicine; Visit Provider Internal Medicine
DX: J96.01 Acute respiratory failure with hypoxia (principal); E66.2 Morbid (severe) obesity with alveolar hypoventilation; T83.511A Infection and inflammatory reaction due to indwelling urethral catheter, initial encounter; I69.351 Hemiplegia and hemiparesis following cerebral infarction affecting right dominant side; Z68.42 Body mass index [BMI] 45.0-49.9, adult; I50.42 Chronic combined systolic (congestive) and diastolic (congestive) heart failure; I25.810 Atherosclerosis of coronary artery bypass graft(s) without angina pectoris; E11.40 Type 2 diabetes mellitus with diabetic neuropathy, unspecified; G20 Parkinson's disease; I11.0 Hypertensive heart disease with heart failure; E11.65 Type 2 diabetes mellitus with hyperglycemia; J44.9 Chronic obstructive pulmonary disease, unspecified; Z79.4 Long term (current) use of insulin; Z93.3 Colostomy status; I25.5 Ischemic cardiomyopathy; E78.5 Hyperlipidemia, unspecified; N40.0 Benign prostatic hyperplasia without lower urinary tract symptoms; Z20.822 Contact with and (suspected) exposure to COVID-19; Z66 Do not resuscitate; Z79.82 Long term (current) use of aspirin; Z79.02 Long term (current) use of antithrombotics/antiplatelets; Z87.891 Personal history of nicotine dependence; Z95.5 Presence of coronary angioplasty implant and graft
CPT/HCPCS: 36415; 36600; 71045; 80048; 80053; 80076; 81001; 82803; 82962; 83735; 83880; 84484; 85025; 87040; 87077; 87086; 87088; 87149; 87186; 87428; 87633; 93005; 93306; 94002; 94003; 94668; 94762; 99252; 99285; J7040; Q9957; A4216; C8929; G0463; J1940

== ENCOUNTER → 2022-08-04 | Outpatient (REF) | payer MEDICARE, MEDICAID, SELFPAY ==
[2017-02-20 12:18] VITALS: BMI 46.4
[2022-08-04 08:01] LABS: Anion Gap 7 (5-15); BUN 22 mg/dL (7-18); BUN/Creat Ratio 20.2 RATIO (10-20); Calcium,Total 8.8 mg/dL (8.5-10.1); Chloride 105 mmol/L (98-107); Creatinine, Serum 1.09 mg/dL (0.70-1.30); EST Glomerular Filtration Rate 71 mL/min (>60); Est Glom Filt Rate - Afr Amer 86 mL/min (>60); Glucose 193 mg/dL (74-106); Potassium 4.2 mmol/L (3.5-5.1); Sodium Level 137 mmol/L (136-145)
== END ==
LOC: OLS.SW 05:00
PROVIDERS: PCP Family Medicine; Referring Provider Family Medicine; Visit Provider Family Medicine
DX: E11.9 Type 2 diabetes mellitus without complications (principal); Z86.73 Personal history of transient ischemic attack (TIA), and cerebral infarction without residual deficits
CPT/HCPCS: 36415; 80048

== ENCOUNTER 2022-08-11 05:01 | Inpatient (IN) | payer MEDICARE, MEDICAID, SELFPAY ==
[2017-02-20 12:18] VITALS: BMI 46.4
[2022-08-11] VITALS (18 sets, daily range): BP systolic 107–143; BP diastolic 60–87; PULSE 74–117; RESP 12–36; TEMP 36.2–36.8; O2SAT 95–100; BMI 43.2; BMI 41.8
--- NOTE | 2022-08-11 05:12 | EKG12_ITS ---
Test Reason : SOB Blood Pressure : / mmHG Vent. Rate : 104 BPM Atrial Rate : 104 BPM P-R Int : 126 ms QRS Dur : 108 ms QT Int : 382 ms P-R-T Axes : 049 068 025 degrees QTc Int : [address] and T wave abnormality Abnormal ECG Confirmed by SHERYL MATTA, ALVARO ([id number]), supervising editor trailer EMMANUEL CONTRERAS ([id number]) on 08/12/2022 7:57:04 AM Referred By: CLARA Confirmed By:ALVARO SAUCEDO MD
--- NOTE | 2022-08-11 05:12 | RAD_ITS ---
EXAM: XR CHEST, 1 VIEW CLINICAL INDICATION: SOB SOB TECHNIQUE: Frontal view of the chest. This report was created using [employer] report generation technology. COMPARISON: 07/27/2022. FINDINGS: LUNGS AND PLEURAL SPACES: There is interstitial prominence in the lung dover, suggesting CHF. No pneumothorax. No effusion. HEART: See below. MEDIASTINUM: Central airways and mediastinal contour are unremarkable. BONES/JOINTS: There are sternotomy wires and surgical clips suggesting previous CABG. SOFT TISSUES: Unremarkable. RAD/Chest 1 View (Portable) IMPRESSION: Interstitial prominence, possibly representing CHF. Overlying pneumonia cannot be excluded but is thought to be less likely. Electronically Signed: Trenton Kinney MD at 6:12 EST Reading Location ID and State: [facility] / [place] , Service support ,
--- NOTE | 2022-08-11 05:18 | EDS_ITS ---
HPI History of Present Illness Chief Complaint: Shortness of Breath Informant: patient Narrative Narrative: He presents with dyspnea. He states since discharge she has actually been doing pretty good. No change in his medicines. He was showering this morning and got more dyspneic. It is noted that his blood pressure is very high. He has a history of pulmonary edema. He denies chest pain. He denies that he has been having recent cough or fevers. He has not gotten his morning meds in yet. Of note, when I go to put nitroglycerin and it states he is allergic but he is actually prescribed nitroglycerin and when I talk to him he denies any known reaction. He does use BiPAP/CPAP at night and was using it last night and had no troubles. [facility] Medical History Acute on chronic systolic (congestive) heart failure Acute pulmonary edema (09/14/20) Acute respiratory failure with hypoxia (09/14/20) Acute respiratory failure with hypoxia and hypercapnia Alcohol abuse Allergic rhinitis Anemia Anxiety Atherosclerosis Atherosclerosis of coronary artery bypass graft without angina pectoris Benign prostatic hyperplasia Chronic combined systolic and diastolic CHF (congestive heart failure) COPD (chronic obstructive pulmonary disease) COPD with acute exacerbation CVA (cerebral vascular accident) Depression Diabetes Dysphagia Essential (primary) hypertension GERD (gastroesophageal reflux disease) Heart failure History of non-ST elevation myocardial infarction (NSTEMI) (02/21/19) HTN (hypertension) Hyperlipidemia Intraparenchymal hemorrhage of brain Intraventricular hemorrhage Ischemic cardiomyopathy Morbid obesity Myocardial infarct Neuromuscular dysfunction of bladder Nicotine dependence Obesity Obstructive sleep apnea Osteomyelitis of sacrum Recurrent UTI (urinary tract infection) Reflux esophagitis Restless leg syndrome Right hemiplegia RLS (restless legs syndrome) Sleep apnea Subarachnoid hemorrhage Subdural hematoma Tobacco abuse Traumatic brain injury Type 2 diabetes mellitus Home Medications amantadine HCl 100 mg capsule 100 mg PO DAILY PARKINSON 04/17/18 [History Last Taken 07/19/21] pantoprazole 40 mg tablet,delayed release 40 mg PO DAILY STOMACH 04/17/18 [History Last Taken 07/19/21] pramipexole 0.25 mg tablet 0.25 mg PO QHS PARKINSONS 04/17/18 [History Last Taken 07/18/21] pravastatin 80 mg tablet 80 mg PO QHS CHOLESTEROL 04/17/18 [History Last Taken 07/18/21] nitroglycerin 0.4 mg sublingual tablet 0.4 mg sublingual PRN PRN CHEST PAIN 02/20/19 [History Last Taken Unknown] aspirin 81 mg chewable tablet 81 mg PO DAILY@0800 heart health 02/24/19 [History Last Taken 07/19/21] insulin aspart U-100 100 unit/mL (3 mL) subcutaneous pen (Novolog FlexPen U-100 Insulin aspart) See Protocol subcut TIDCM blood sugar 09/14/19 [History Last Taken 07/19/21] oxycodone 5 mg tablet 5 mg PO Q6H PRN PRN Pain Or Fever 09/14/19 [History Last Taken 07/19/21] sennosides 8.6 mg-docusate sodium 50 mg tablet 2 ea PO BID constipation 01/02/20 [History Last Taken 07/19/21] melatonin 3 mg disintegrating tablet 3 mg PO QHS sleep 09/14/20 [History Last Taken 07/18/21] fluticasone propionate 110 mcg/actuation HFA aerosol inhaler 1 puff inhalation BID allergies 02/17/21 [History Last Taken 07/19/21] insulin aspart U-100 100 unit/mL (3 mL) subcutaneous pen (Novolog FlexPen U-100 Insulin aspart) 15 unit subcut TIDCM blood sugar 02/17/21 [History Last Taken 07/19/21] tamsulosin 0.4 mg capsule 0.4 mg PO QHS prostate 02/17/21 [History Last Taken 07/18/21] ticagrelor 90 mg tablet (Brilinta) 90 mg PO BID heart 02/17/21 [History Last Taken 07/19/21] furosemide 40 mg tablet 40 mg PO BID CHF #0 tabs 02/18/21 [Rx Last Taken 07/19/21] carvedilol 25 mg tablet 25 mg PO BID #0 tabs 02/20/21 [Rx Last Taken 07/19/21] potassium chloride 20 mEq tablet,extended release(part/cryst) 40 meq PO DAILY supplement 90 days #90 tabs 02/20/21 [Rx Last Taken 07/19/21] insulin glargine 100 unit/mL (3 mL) subcutaneous pen (Lantus Solostar U-100 Insulin) 28 unit subcut QPM DM 04/25/21 [History Last Taken 07/18/21] spironolactone 25 mg tablet 25 mg PO DAILY #30 tabs 04/29/21 [Rx Last Taken 07/19/21] aluminum-magnesium hydroxide 225 mg-200 mg/5 mL oral suspension 30 ml PO Q4H PRN GI distress 10/11/21 [History Last Taken Unknown] bisacodyl 10 mg rectal suppository 10 mg WI DAILY PRN constipaiton 10/11/21 [History Last Taken Unknown] duloxetine 60 mg capsule,delayed release 30 mg PO BID depression 10/11/21 [History Last Taken Unknown] fluoxetine 40 mg capsule 60 mg PO QPM depression 10/11/21 [History Last Taken Unknown] guaifenesin 200 mg/5 mL oral liquid 10 mg PO Q4H PRN Cough 10/11/21 [History Last Taken Unknown] magnesium hydroxide 400 mg/5 mL oral suspension (Milk of Magnesia) 30 ml PO DAILY PRN consipation 10/11/21 [History Last Taken Unknown] nystatin 100,000 unit/gram topical powder 1 applic topical DAILY PRN excoriation 10/11/21 [History Last Taken Unknown] sacubitril 49 mg-valsartan 51 mg tablet (Entresto) 1 tab PO BID #60 tabs 10/11/21 [Rx Last Taken Unknown] sodium phosphates 19 gram-7 gram/118 mL enema (Fleet Enema) 118 ml WI ONCE PRN Constipation 10/11/21 [History Last Taken Unknown] trazodone 50 mg tablet 100 mg PO QHS sleep 10/11/21 [History Last Taken Unknown] acetaminophen 500 mg tablet 650 mg PO Q6H PRN PRN Mild Pain (1-3/10) 07/27/22 [History Last Taken Unknown] cetirizine 10 mg tablet (Zyrtec) 10 mg PO DAILY sinus 07/27/22 [History Last Taken Unknown] gabapentin 300 mg capsule 300 mg PO DAILY neuropathy 07/27/22 [History Last Ta cody Unknown] guaifenesin 600 mg tablet, extended release 12 hr (Mucinex) 600 mg PO Q24H PRN Sinus Symptoms 07/27/22 [History Last Taken Unknown] levofloxacin 750 mg tablet 750 mg PO DAILY #9 tabs 07/28/22 [Rx Last Taken Unknown] Allergy/AdvReac Type Severity Reaction Status Date / Time atorvastatin Allergy PT UNSURE Verified 07/27/22 03:13 OF REACTION cilostazol Allergy Hives Verified 07/27/22 03:13 colestipol Allergy Hives Verified 07/27/22 03:13 diltiazem Allergy Hives Verified 07/27/22 03:13 gemfibrozil Allergy Hives Verified 07/27/22 03:13 naproxen [From Naprosyn] Allergy Hives Verified 07/27/22 03:13 niacin Allergy PT UNSURE Verified 07/27/22 03:13 OF REACTION Nitrate Analogues Allergy Hives Verified 07/27/22 03:13 Penicillins Allergy Hives Verified 07/27/22 03:13 pravastatin Allergy NEEDS Verified 07/27/22 03:13 FOLLOW-UP procainamide Allergy Hives Verified 07/27/22 03:13 procaine Allergy NEEDS Verified 07/27/22 03:13 FOLLOW-UP rosuvastatin Allergy Hives Verified 07/27/22 03:13 simvastatin Allergy Hives Verified 07/27/22 03:13 isosorbide AdvReac Severe Unknown Verified 07/27/22 03:13 Family History Brother Heart disease Father Heart disease Alzheimer disease Mother No history of heart disease Surgical History Chronic suprapubic catheter H/O coronary angioplasty H/O coronary artery bypass surgery (2001) History of coronary artery stent placement (09/18/20) History of left heart catheterization (04/29/21) PEG (percutaneous endoscopic gastrostomy) adjustment/replacement/removal Status post ileostomy Status post osteotomy (01/2018) Social History housing: detention Smoking Status: Current every day smoker tobacco type: cigarettes second hand exposure: Yes alcohol intake: former substance use type: does not use caffeine: Yes Type: coffee Number of servings: 3 what type of physical activity do you participate in: none ROS ROS ED Constitutional Constitutional ED: Denies fever(s) or sweats ENT ENT ED: Denies rhinorrhea or sore throat Cardiovascular Cardiovascular: Reports orthopnea; Denies chest pain or palpitations Respiratory/Chest Respiratory/Chest: Reports dyspnea and orthopnea; Denies cough or sputum Gastrointestinal Gastrointestinal: Denies nausea or vomiting Genitourinary Genitourinary ED: Denies dysuria Musculoskeletal Musculoskeletal: Denies myalgias Integumentary Denies rash Neurologic Neurologic: Denies headache(s) Psychiatric Psychiatric: Reports anxiety Endocrine Endocrinology: Denies polydipsia or polyuria Hematologic/Lymphatic Hematologic/Lymphatic: Reports easy bleeding and easy bruising Allergic/Immunologic Allergic/Immunologic ED: Denies urticaria EXAM Physical Exam Narrative Exam Narrative: Patient was brought in by squad and I met the patient in the room. Patient is awake alert he is not sleepy or lethargic. He states he is doing much better on our BiPAP. I can hear coarse breath sounds throughout and rales. His heart rate is regular but does appear mildly tachycardic. HEENT: Moist mucous membranes. He is tolerating BiPAP well Neck is too thick to home improvement installer JVD. Lungs show coarse breath sounds bilaterally mostly rales and is more at the bases than upon I. Heart is regular but tachycardic Abdomen is obese but otherwise benign. Extremities are large with some edema but evidently this is baseline. Neurologically patient is awake alert he is oriented. He is not sleepy or lethargic. Const Vital Signs: 08/11/22 05:02 08/11/22 05:09 08/11/22 05:26 Temperature 97.8 F 97.8 F Temperature Source Temporal Temporal Pulse Rate 117 H 97 Respiratory Rate 30 H Respiratory Effort Short of Breath Labored Respiratory Depth Deep Respiratory Pattern Tachypnea Blood Pressure 115/78 Blood Pressure Mean 90 Pulse Ox 97 95 Oxygen Delivery Method Bi-pap Bi-pap Bi-pap Fraction of Inspired Oxygen (FIO2) 50 40 08/11/22 05:17 08/11/22 06:29 08/11/22 06:30 Temperature 97.9 F Temperature Source Temporal Pulse Rate 99 81 Respiratory Rate 36 H 18 Respiratory Effort Respiratory Depth Respiratory Pattern Tachypnea Blood Pressure 120/71 Blood Pressure Mean 87 Pulse Ox 96 95 95 Oxygen Delivery Method Bi-pap Bi-pap Fraction of Inspired Oxygen (FIO2) 40 40 MDM MDM MDM Narrative Medical decision making narrative: My Independent interpretation of the patient's single AP chest x-ray does show signs consistent with congestive heart failure. Final reading is similar. Clinically, the patient does not have symptoms of pneumonia. CBC shows normal white count with mild anemia. BNP was 211. Patient's recheck. After nitro his pressure has come down significantly. He is running about 120 systolic instead of bout 229 which he came in with. I recycled that pressure when he came in it was 224 systolic. So he is really dropped his pressure and a positive way. His respiratory rate is now down. His heart rate is also reduced. His FiO2 is also reducing now. I think this patient had an episode of flash pulmonary edema likely contributed by exertion and not yet getting his meds in the morning to control his blood pressure. He is improving at this point. We are still pending some results and really checking further. I also reviewed inpatient echo from July of this year that showed: Interpretation Summary Normal LV size. The left ventricular ejection fraction is 45 %. There is mild global hypokinesis of the left ventricle. Stage 1 diastolic dysfunction. The left atrium is mildly enlarged. The right atrium is mildly enlarged. Contrast injection was performed. Electrolytes came back without any marked abnormalities. His glucose was up a bit at 356 and I am giving him a small dose of insulin for this. Troponin was negative. However, his lactate was elevated 2.8 likely due to hypoxia before he got on BiPAP and improved. I think this patient went into flash pulmonary edema. However, his echo does show global hypokinesis. I think we need to get him stabilized. He may need some diuresis. He needs blood pressure management into safely and slowly wean him off his respiratory support. I discussed the case with the hospitalist. History & Record Review Discussion w/independent historian: EMS personnel Additional record(s) reviewed:: Prior inpatient record Lab Data Attestation: I reviewed the patient's lab results. Labs: Laboratory Results - last 24 hr 08/11/22 08/11/22 08/11/22 05:15 05:15 05:15 WBC 7.6 RBC 4.22 L Hgb 12.3 L Hct 40.1 MCV 95.0 H MCH 29.1 MCHC 30.7 L RDW Std Deviation 49.9 H RDW Coeff of Sherin 14.4 Plt Count 194 MPV 11.4 Immature Gran % (Auto) 0.400 Neut % (Auto) 69.5 Lymph % (Auto) 19.6 Warrick % (Auto) 7.0 Eos % (Auto) 3.0 Baso % (Auto) 0.5 Absolute Neuts (auto) 5.3 Absolute Lymphs (auto) 1.48 Nucleated RBC % 0 Sodium 136 Potassium 4.6 Chloride 103 Carbon Dioxide 25.0 Anion Gap 8 BUN 19 H Creatinine 1.20 Estim Creat Clear Calc 64.69 Est GFR (MDRD) Af Amer 77 Est GFR (MDRD) Non-Af 63 BUN/Creatinine Ratio 15.8 Glucose 356 H Lactic Acid 2.8 H* Calcium 8.8 Troponin I High Sens 12 B-Natriuretic Peptide 08/11/22 05:15 WBC RBC Hgb Hct MCV MCH MCHC RDW Std Deviation RDW Coeff of Sherin Plt Count MPV Immature Gran % (Auto) Neut % (Auto) Lymph % (Auto) Warrick % (Auto) Eos % (Auto) Baso % (Auto) Absolute Neuts (auto) Absolute Lymphs (auto) Nucleated RBC % Sodium Potassium Chloride Carbon Dioxide Anion Gap BUN Creatinine Estim Creat Clear Calc Est GFR (MDRD) Af Amer Est GFR (MDRD) Non-Af BUN/Creatinine Ratio Glucose Lactic Acid Calcium Troponin I High Sens B-Natriuretic Peptide 211.0 H Radiography Diagnostic Testing: Clinical Impression(s) from Imaging Studies Chest X-Ray 08/11/22 05:12 IMPRESSION: Interstitial prominence, possibly representing CHF. Overlying pneumonia cannot be excluded but is thought to be less likely. Electronically Signed: Trenton Kinney MD at 6:12 EST Reading Location ID and State: [facility] / [place] , Service support , EKG Initial EKG: Comments: My independent interpretation of the patient's EKG done for dyspnea and tachycardia shows sinus rhythm with tachycardic rate at 104. No ventricular ectopy is noted. He does have irregular baseline but no convincing evidence of acute ST elevation or depression. There are nonspecific changes. WI interval and QRS duration are normal. QTc is long. This is similar to 27 July of this year but is a bit slower now. Management Discussion w/another healthcare provider: Hospitalist Discharge Plan Triage Chief Complaint: Shortness of Breath ED Provider: Boubacar Ríos Dx/Rx/DC Orders Prescriptions: No Action aluminum-magnesium hydroxide 225-200 mg/5 mL suspension 30 ml PO Q4H PRN (Reason: GI distress) bisacodyl 10 mg suppository 10 mg WI DAILY PRN (Reason: constipaiton) duloxetine 60 mg capsule,delayed release(DR/EC) 30 mg PO BID Fleet Enema 19-7 gram/118 mL enema 118 ml WI ONCE PRN (Reason: Constipation) guaifenesin 200 mg/5 mL liquid 10 mg PO Q4H PRN (Reason: Cough) magnesium hydroxide [Milk of Magnesia] 400 mg/5 mL suspension 30 ml PO DAILY PRN (Reason: consipation) nystatin 100,000 unit/gram powder 1 applic topical DAILY PRN (Reason: excoriation) fluoxetine 40 mg capsule 60 mg PO QPM trazodone 50 mg tablet 100 mg PO QHS Entresto 49-51 mg tablet 1 tab PO BID Qty: 60 11RF amantadine HCl 100 MG capsule 100 mg PO DAILY pravastatin 80 MG tablet 80 mg PO QHS pantoprazole 40 MG tablet 40 mg PO DAILY pramipexole 0.25 MG tablet 0.25 mg PO QHS nitroglycerin 0.4 MG tablet, sublingual 0.4 mg sublingual PRN PRN (Reason: CHEST PAIN) aspirin 81 MG tablet,chewable 81 mg PO DAILY@0800 oxycodone 5 MG tablet 5 mg PO Q6H PRN PRN (Reason: Pain Or Fever) insulin aspart U-100 [Novolog FlexPen U-100 Insulin] 100 UNITS/ML insulin pen See Protocol SC TIDCM Protocol: 6. Sliding Scale Insulin Custom Condition: mg/dl range Dose/Route: Number of Units Condition: 150-199 Dose/Route: 2 Condition: 200-259 Dose/Route: 4 Condition: 260-324 Dose/Route: 6 Condition: 325-374 Dose/Route: 8 Condition: 375-409 Dose/Route: 10 Condition: 410-449 Dose/Route: 11 Protocol Text: Custom Sliding Scale Rx Instructions: sliding scale sennosides-docusate sodium 1 EACH tablet 2 ea PO BID melatonin 3 MG tablet,disintegrating 3 mg PO QHS tamsulosin 0.4 mg Capsule 0.4 mg PO QHS fluticasone propionate 110 mcg/actuation Hfa Aerosol Inhaler 1 puff INHALATION BID insulin aspart U-100 [Novolog FlexPen U-100 Insulin] 100 unit/mL (3 mL) Insulin Pen 15 unit SUBCUT TIDCM Brilinta 90 mg Tablet 90 mg PO BID furosemide 40 mg tablet 40 mg PO BID Qty: 0 0RF carvedilol 25 mg Tablet 25 mg PO BID Qty: 0 0RF potassium chloride 20 mEq tablet,ER particles/crystals 40 meq PO DAILY 90 Days Qty: 90 0RF insulin glargine [Lantus Solostar U-100 Insulin] 100 unit/mL (3 mL) Insulin Pen 28 unit SUBCUT QPM spironolactone 25 mg tablet 25 mg PO DAILY Qty: 30 0RF cetirizine [Zyrtec] 10 mg Tablet 10 mg PO DAILY gabapentin 300 mg capsule 300 mg PO DAILY guaifenesin [Mucinex] 600 mg Tablet Extended Release 12hr 600 mg PO Q24H PRN (Reason: Sinus Symptoms) acetaminophen 500 MG tablet 650 mg PO Q6H PRN PRN (Reason: Mild Pain (-08/15)) levofloxacin 750 mg tablet 750 mg PO DAILY Qty: 9 0RF Primary Care Provider: Phillip Lindo Referrals: Phillip Lindo MD [Primary Care Provider] - Disposition Disposition: Acute Care Hospital [facility]
[2022-08-11] MEDS: Nitroglycerin SL (ED/IMG/CATH) 0.4 MG TABLET SL (05:25)
[2022-08-11 05:26] LABS: Absolute Lymphocyte Count 1.48 X10^3/uL (0.83-4.51); Absolute Neutrophil Count 5.3 X10^3/uL (2.0-7.7); Basophil# 0.04 X10^3/uL; Basophil% 0.5 % (0-1); Eosinophil# 0.23 X10^3/uL; Hematocrit 40.1 % (40-54); Hemoglobin 12.3 g/dL (13.0-16.5); Lymphocyte # 1.48 X10^3/ul (0.83-4.51); Lymphocyte % 19.6 % (19-41); Mean Corp Hgb Conc 30.7 g/dL (32-36); Mean Corpuscular Hgb 29.1 pg (27.0-32.0); Mean Platelet Vol. 11.4 fl (6.2-12.0); Monocyte# 0.53 X10^3/uL; NRBC Flagged by Analyzer 0 % (0-5); Neutrophil # 5.26 X10^3/uL (2.7-7.7); Neutrophil % 69.5 % (47-70); Platelet Count 194 K/mm3 (150-450); RBC Distribution Width CV 14.4 % (11.6-14.6); RBC Distribution Width SD 49.9 fl (35.1-43.9); Red Blood Count 4.22 M/mm3 (4.6-6.2); White Blood Count 7.6 K/mm3 (4.4-11.0)
[2022-08-11 06:25] LABS: Anion Gap 8 (5-15); BUN 19 mg/dL (7-18); BUN/Creat Ratio 15.8 RATIO (10-20); Calcium,Total 8.8 mg/dL (8.5-10.1); Chloride 103 mmol/L (98-107); EST Glomerular Filtration Rate 63 mL/min (>60); Est Glom Filt Rate - Afr Amer 77 mL/min (>60); Estimated Creatinine Clearance 64.69 ml/min; Glucose 356 mg/dL (74-106); Potassium 4.6 mmol/L (3.5-5.1); Sodium Level 136 mmol/L (136-145); Troponin-I HS 12 pg/mL (3.0-78.0)
[2022-08-11 06:29] LABS: Lactic Acid 2.8 mmol/L (0.4-1.9)
[2022-08-11] MEDS: Furosemide 40 MG/4 ML Vial IV ×3 (06:39→20:59)
[2022-08-11] MEDS: Insulin Lispro 100 UNIT/ML INSULN.PEN 10 UNIT SC (06:39)
--- NOTE | 2022-08-11 07:27 | NURSING ---
103 COLLEEN CHF, HYPERTENSIVE EMERGENCY
--- NOTE | 2022-08-11 07:46 | HP.PCM.HOS_ITS ---
[facility] - General General Date of Admission: 08/11/22 Date of Service: 08/11/22 Chief Complaint: Shortness of breath HPI Narrative FABY GARCIA, is a 72 M who presents with shortness of breath. Patient has a significant past medical history including ischemic cardiomyopathy with ejection fraction of 45% coronary artery disease with previous CABG diabetes mellitus type 2 hypertension currently residing at an extended care facility who was brou ght to the emergency department with shortness of breath. Patient apparently became dyspneic whilst taking above. The shelter also did notice increasing swelling involving both lower extremities. He was subsequently brought to the emergency department found to be significantly dyspneic at rest was placed on BiPAP. Systolic blood pressure was also markedly elevated greater than 200 placed on nitroglycerin. An assessment of acute congestive heart failure and acute hypertensive emergency made admitted to monitored bed for further management [facility] Medical History (Updated 08/11/22 @ 07:[address] Aris Brownlee MD) Acute on chronic systolic (congestive) heart failure Acute pulmonary edema (09/14/20) Acute respiratory failure with hypoxia (09/14/20) Acute respiratory failure with hypoxia and hypercapnia Alcohol abuse Allergic rhinitis Anemia Anxiety Atherosclerosis Atherosclerosis of coronary artery bypass graft without angina pectoris Benign prostatic hyperplasia Chronic combined systolic and diastolic CHF (congestive heart failure) COPD (chronic obstructive pulmonary disease) COPD with acute exacerbation CVA (cerebral vascular accident) Depression Diabetes Dysphagia Essential (primary) hypertension GERD (gastroesophageal reflux disease) Heart failure History of non-ST elevation myocardial infarction (NSTEMI) (02/21/19) HTN (hypertension) Hyperlipidemia Intraparenchymal hemorrhage of brain Intraventricular hemorrhage Ischemic cardiomyopathy Morbid obesity Myocardial infarct Neuromuscular dysfunction of bladder Nicotine dependence Obesity Obstructive sleep apnea Osteomyelitis of sacrum Recurrent UTI (urinary tract infection) Reflux esophagitis Restless leg syndrome Right hemiplegia RLS (restless legs syndrome) Sleep apnea Subarachnoid hemorrhage Subdural hematoma Tobacco abuse Traumatic brain injury Type 2 diabetes mellitus Home Medications amantadine HCl 100 mg capsule 100 mg PO DAILY PARKINSON 04/17/18 [History Last Taken 07/19/21] pantoprazole 40 mg tablet,delayed release 40 mg PO DAILY STOMACH 04/17/18 [History Last Taken 07/19/21] pramipexole 0.25 mg tablet 0.25 mg PO QHS PARKINSONS 04/17/18 [History Last Taken 07/18/21] pravastatin 80 mg tablet 80 mg PO QHS CHOLESTEROL 04/17/18 [History Last Taken 07/18/21] nitroglycerin 0.4 mg sublingual tablet 0.4 mg sublingual PRN PRN CHEST PAIN 02/20/19 [History Last Taken Unknown] aspirin 81 mg chewable tablet 81 mg PO DAILY@0800 heart health 02/24/19 [History Last Taken 07/19/21] insulin aspart U-100 100 unit/mL (3 mL) subcutaneous pen (Novolog FlexPen U-100 Insulin aspart) See Protocol subcut TIDCM blood sugar 09/14/19 [History Last Taken 07/19/21] oxycodone 5 mg tablet 5 mg PO Q6H PRN PRN Pain Or Fever 09/14/19 [History Last Taken 07/19/21] sennosides 8.6 mg-docusate sodium 50 mg tablet 2 ea PO BID constipation 01/02/20 [History Last Taken 07/19/21] melatonin 3 mg disintegrating tablet 3 mg PO QHS sleep 09/14/20 [History Last Taken 07/18/21] fluticasone propionate 110 mcg/actuation HFA aerosol inhaler 1 puff inhalation BID allergies 02/17/21 [History Last Taken 07/19/21] insulin aspart U-100 100 unit/mL (3 mL) subcutaneous pen (Novolog FlexPen U-100 Insulin aspart) 15 unit subcut TIDCM blood sugar 02/17/21 [History Last Taken 07/19/21] tamsulosin 0.4 mg capsule 0.4 mg PO QHS prostate 02/17/21 [History Last Taken 07/18/21] ticagrelor 90 mg tablet (Brilinta) 90 mg PO BID heart 02/17/21 [History Last Taken 07/19/21] furosemide 40 mg tablet 40 mg PO BID CHF #0 tabs 02/18/21 [Rx Last Taken 07/19/21] carvedilol 25 mg tablet 25 mg PO BID #0 tabs 02/20/21 [Rx Last Taken 07/19/21] potassium chloride 20 mEq tablet,extended release(part/cryst) 40 meq PO DAILY supplement 90 days #90 tabs 02/20/21 [Rx Last Taken 07/19/21] insulin glargine 100 unit/mL (3 mL) subcutaneous pen (Lantus Solostar U-100 Insulin) 28 unit subcut QPM DM 04/25/21 [History Last Taken 07/18/21] spironolactone 25 mg tablet 25 mg PO DAILY #30 tabs 04/29/21 [Rx Last Taken 07/19/21] aluminum-magnesium hydroxide 225 mg-200 mg/5 mL oral suspension 30 ml PO Q4H PRN GI distress 10/11/21 [History Last Taken Unknown] bisacodyl 10 mg rectal suppository 10 mg AK DAILY PRN constipaiton 10/11/21 [History Last Taken Unknown] duloxetine 60 mg capsule,delayed release 30 mg PO BID depression 10/11/21 [History Last Taken Unknown] fluoxetine 40 mg capsule 60 mg PO QPM depression 10/11/21 [History Last Taken Unknown] guaifenesin 200 mg/5 mL oral liquid 10 mg PO Q4H PRN Cough 10/11/21 [History Last Taken Unknown] magnesium hydroxide 400 mg/5 mL oral suspension (Milk of Magnesia) 30 ml PO DAILY PRN consipation 10/11/21 [History Last Taken Unknown] nystatin 100,000 unit/gram topical powder 1 applic topical DAILY PRN excoriation 10/11/21 [History Last Taken Unknown] sacubitril 49 mg-valsartan 51 mg tablet (Entresto) 1 tab PO BID #60 tabs 10/11/21 [Rx Last Taken Unknown] sodium phosphates 19 gram-7 gram/118 mL enema (Fleet Enema) 118 ml AK ONCE PRN Constipation 10/11/21 [History Last Taken Unknown] trazodone 50 mg tablet 100 mg PO QHS sleep 10/11/21 [History Last Taken Unknown] acetaminophen 500 mg tablet 650 mg PO Q6H PRN PRN Mild Pain (1-3/10) 07/27/22 [History Last Taken Unknown] cetirizine 10 mg tablet (Zyrtec) 10 mg PO DAILY sinus 07/27/22 [History Last Taken Unknown] gabapentin 300 mg capsule 300 mg PO DAILY neuropathy 07/27/22 [History Last Taken Unknown] guaifenesin 600 mg tablet, extended release 12 hr (Mucinex) 600 mg PO Q24H PRN Sinus Symptoms 07/27/22 [History Last Taken Unknown] levofloxacin 750 mg tablet 750 mg PO DAILY #9 tabs 07/28/22 [Rx Last Taken Unknown] Allergy/AdvReac Type Severity Reaction Status Date / Time atorvastatin Allergy PT UNSURE Verified 07/27/22 03:13 OF REACTION cilostazol Allergy Hives Verified 07/27/22 03:13 colestipol Allergy Hives Verified 07/27/22 03:13 diltiazem Allergy Hives Verified 07/27/22 03:13 gemfibrozil Allergy Hives Verified 07/27/22 03:13 naproxen [From Naprosyn] Allergy Hives Verified 07/27/22 03:13 niacin Allergy PT UNSURE Verified 07/27/22 03:13 OF REACTION Nitrate Analogues Allergy Hives Verified 07/27/22 03:13 Penicillins Allergy Hives Verified 07/27/22 03:13 pravastatin Allergy NEEDS Verified 07/27/22 03:13 FOLLOW-UP procainamide Allergy Hives Verified 07/27/22 03:13 procaine Allergy NEEDS Verified 07/27/22 03:13 FOLLOW-UP rosuvastatin Allergy Hives Verified 07/27/22 03:13 simvastatin Allergy Hives Verified 07/27/22 03:13 isosorbide AdvReac Severe Unknown Verified 07/27/22 03:13 Family History Brother Heart disease Father Heart disease Alzheimer disease Mother No history of heart disease Surgical History Chronic suprapubic catheter H/O coronary angioplasty H/O coronary artery bypass surgery (2001) History of coronary artery stent placement (09/18/20) History of left heart catheterization (04/29/21) PEG (percutaneous endoscopic gastrostomy) adjustment/replacement/removal Status post ileostomy Status post osteotomy (01/2018) Social History housing: shelter Smoking Status: Current every day smoker tobacco type: cigarettes second hand exposure: Yes alcohol intake: former substance use type: does not use caffeine: Yes Type: coffee Number of servings: 3 what type of physical activity do you participate in: none ROS ROS Narrative GENERAL: denies fever, chills, night sweats, HEENT: denies headache, sinus congestion, RESPIRATORY: shortness of breath, dyspnea on exertion CARDIAC: denies chest pain, palpitations, GASTROINTESTINAL: denies abdominal pain, nausea, GENITOURINARY: denies dysuria, urgency, frequency, EXTREMITY: denies swelling MUSCULOSKELETAL: denies current joint pain or tenderness NEUROLOGIC: denies focal numbness, weakness, tingling HEMATOLOGIC: denies easy bruising and/or hemorrhage INTEGUMENT: denies rashes PSYCHIATRIC: denies suicidal or homicidal ideation Vital Signs Vital Signs Vital Signs: 08/11/22 05:02 08/11/22 05:09 08/11/22 05:26 Temperature 97.8 F 97.8 F Temperature Source Temporal Temporal Pulse Rate 117 H 97 Respiratory Rate 30 H Respiratory Effort Short of Breath Labored Respiratory Depth Deep Respiratory Pattern Tachypnea Blood Pressure 115/78 Blood Pressure Mean 90 Pulse Ox 97 95 Oxygen Delivery Method Bi-pap Bi-pap Bi-pap Fraction of Inspired Oxygen (FIO2) 50 40 08/11/22 05:17 08/11/22 06:29 08/11/22 06:30 Temperature 97.9 F Temperature Source Temporal Pulse Rate 99 81 Respiratory Rate 36 H 18 Respiratory Effort Respiratory Depth Respiratory Pattern Tachypnea Blood Pressure 120/71 Blood Pressure Mean 87 Pulse Ox 96 95 95 Oxygen Delivery Method Bi-pap Bi-pap Fraction of Inspired Oxygen (FIO2) 40 40 08/11/22 07:24 Temperature 97.3 F L Temperature Source Temporal Pulse Rate 74 Respiratory Rate 17 Respiratory Effort Respiratory Depth Respiratory Pattern Blood Pressure 113/87 H Blood Pressure Mean 95 Pulse Ox 98 Oxygen Delivery Method Bi-pap Fraction of Inspired Oxygen (FIO2) 40 Weight Weight: 152.8 kg Body Mass Index (BMI) 43.2 Physical Exam Narrative GENERAL: Dyspneic at rest on BiPAP HEENT: Atraumatic; normocephalic EYES; Anicteric, Normal Conjunctiva NECK; supple, normal thyroid, RESPIRATORY: Diminished to auscultation CARDIOVASCULAR: Regular S1 S2, GI: soft, normoactive bowel sounds, : No Renal angle tenderness; EXTREMITIES: Chronic skin changes involving both lower extremity with +1 pitting edema MUSCULOSKELETAL: no muscle wasting NEURO: Awake; no lateralizing signs. SKIN: As described above PSYCH; Flat affect Results Lab / Micro Data Result Diagrams: 08/11/22 05:15 08/11/22 05:15 Labs: Laboratory Results - last 24 hr 08/11/22 05:15: WBC 7.6, RBC 4.22 L, Hgb 12.3 L, Hct 40.1, MCV 95.0 H, MCH 29.1, MCHC 30.7 L, RDW Std Deviation 49.9 H, RDW Coeff of Sherin 14.4, Plt Count 194, MPV 11.4, Immature Gran % (Auto) 0.400, Neut % (Auto) 69.5, Lymph % (Auto) 19.6, [place] % (Auto) 7.0, Eos % (Auto) 3.0, Baso % (Auto) 0.5, Absolute Neuts (auto) 5.3, Absolute Lymphs (auto) 1.48, Nucleated RBC % 0 08/11/22 05:15: Sodium 136, Potassium 4.6, Chloride 103, Carbon Dioxide 25.0, Anion Gap 8, BUN 19 H, Creatinine 1.20, Estim Creat Clear Calc 64.69, Est GFR (MDRD) Af Amer 77, Est GFR (MDRD) Non-Af 63, BUN/Creatinine Ratio 15.8, Glucose 356 H, Calcium 8.8, Troponin I High Sens 12 08/11/22 05:15: Lactic Acid 2.8 H* 08/11/22 05:15: B-Natriuretic Peptide 211.0 H Radiology Impression Chest X-Ray 08/11/22 05:12 IMPRESSION: Interstitial prominence, possibly representing CHF. Overlying pneumonia cannot be excluded but is thought to be less likely. Electronically Signed: Trenton Kinney MD at 6:12 EST Reading Location ID and State: [facility] / [place] , Service support , Assessment & Plan Assessment/Plan (1) Acute on chronic systolic (congestive) heart failure: PLAN: Plan Patient is a 72-year-old gentleman presenting with progressive shortness of breath and assessment of acute hypoxic respiratory failure made admitted to monitored bed for further management 1. Acute hypoxic respiratory failure ? Evidenced by patient being tachypneic hypoxic and using accessory muscles of breathing. Patient was placed on noninvasive ventilation BiPAP 2. Acute on chronic congestive heart failure with reduced ejection fraction ? Echo obtained on 07/27/2022 demonstrated EF of 45%. Patient is on beta- blockers, Entresto, Aldactone as well as furosemide. Furosemide p.o. was held started on IV furosemide. Also placed on strict input and output Daily weight fluid restriction as well as low-sodium diet in addition to supplemental oxygen as discussed above 3. Acute hypertensive urgency ? This is evidenced by evidence of endorgan damage i.e. congestive heart failure patient did receive nitroglycerin in the emergency department we will continue to monitor goal is to keep systolic blood pressure less than 140 4. Coronary artery disease ? With previous CABG 5. Diabetes mellitus type 2 ? Did continue patient long-acting insulin in addition to scheduled Premeal insulin and correction factor sliding scale. Was placed on Accu-Cheks before meals and at bedtime 6. Obstructive sleep apnea ? Patient is on CPAP at night 7. Dyslipidemia ? Patient is on pravastatin plan is to continue 8. BPH patient is on tamsulosin did continue 9. History of previous CVA ? Patient apparently is bedridden has an indwelling chronic Lane catheter as well as an ostomy. Patient is on antiplatelet therapy as well as statin therapy did continue 10. Class III obesity with BMI of 43.2 ? Weight loss advised 11. DVT prophylaxis ? Patient placed on Lovenox 40 mg SC Q12 Time spent in the patient's overall evaluation,decision-making process, review of diagnostic data, adjustment of management, discussion with other providers, nursing nursing and ancillary staff involved in patient's care documentation, 77 Minutes Advance planning; did discuss with the patient and family regarding advanced directives as well as CODE STATUS. Did explain the various scenarios involved ( FULL CODE, DNR CCA, DNR CCA with no intubation, and DNR CC and what each meant) patient elected to be DNR CCA no intubation. Order was placed. Time spent on discussion 18 minutes. ? Charges/Coding Visit Charges Inpatient E&M: 65547 Init Hosp L3 Procedures Hospitalists Procedures: 05559 Advncd Care Plan 30 Min
--- NOTE | 2022-08-11 08:51 | CASEMGMT ---
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 SW sent updates to [facility] via [employer]. Nydia Paniagua DIRECTOR CLINICAL APPLICATIONS [place]
[2022-08-11 09:16] LABS: Troponin-I HS 34 pg/mL (3.0-78.0)
[2022-08-11 09:25] LABS: Reflex Lactate? Y
[2022-08-11 09:54] LABS: Lactic Acid 1.8 mmol/L (0.4-1.9)
[2022-08-11] MEDS: Budesonide Respules 0.5 MG/2 ML AMPUL.NEB. INHALATION ×2 (10:50→19:04)
[2022-08-11] MEDS: Insulin Lispro 100 UNIT/ML INSULN.PEN 15 UNIT SC ×2 (11:30→16:50)
[2022-08-11] MEDS: Senna/Docusate Sodium 1 Tablet 2 TABLET PO ×2 (11:31→20:59)
[2022-08-11] MEDS: Insulin Lispro 100 UNIT/ML INSULN.PEN SC ×3 (11:31→21:00)
[2022-08-11] MEDS: TICAGRELOR 90 MG TABLET PO ×2 (11:31→20:59)
[2022-08-11] MEDS: Enoxaparin 40 MG/0.4 ML Syringe SC ×2 (11:31→21:01)
[2022-08-11] MEDS: Potassium Chloride Oral Tablet 20 MEQ 40 MEQ PO (11:32)
[2022-08-11] MEDS: Aspirin 81 MG TAB.CHEW PO (11:32)
[2022-08-11] MEDS: DULoxetine Hcl 30 MG Capsule PO ×2 (11:32→20:59)
[2022-08-11] MEDS: levoFLOXacin 750 MG Tablet PO (11:32)
[2022-08-11] MEDS: SACUBITRIL/VALSARTAN 49-51 MG TABLET 1 EACH PO ×2 (11:32→20:59)
[2022-08-11] MEDS: Pantoprazole Sodium 40 MG Tablet PO (11:32)
[2022-08-11] MEDS: Gabapentin 300 MG Capsule PO (11:32)
[2022-08-11] MEDS: Spironolactone 25 MG Tablet PO (11:32)
[2022-08-11] MEDS: Amantadine 100 MG Capsule PO (11:32)
[2022-08-11] MEDS: Carvedilol 25 MG Tablet PO ×2 (11:32→20:59)
[2022-08-11] MEDS: Loratadine 10 MG Tablet PO (11:34)
[2022-08-11 12:06] LABS: Bedside Glucose 179 mg/dL (74-106)
[2022-08-11 12:07] LABS: Troponin-I HS 39 pg/mL (3.0-78.0)
[2022-08-11] MEDS: 0.9% Saline Lock 10 ML Syringe IV ×2 (13:40→20:56)
[2022-08-11 16:50] LABS: Bedside Glucose 215 mg/dL (74-106)
[2022-08-11] MEDS: Insulin Glargine-YFGN 100 UNIT/ML Pen 28 UNIT SC (20:57)
[2022-08-11] MEDS: FLUoxetine 20 MG Capsule 60 MG PO (20:58)
[2022-08-11] MEDS: Pravastatin 80 MG Tablet PO (20:59)
[2022-08-11] MEDS: MELATONIN 3 MG TABLET PO (20:59)
[2022-08-11] MEDS: Pramipexole Di-HCl 0.25 MG Tablet PO (20:59)
[2022-08-11] MEDS: traZODone 100 MG Tablet PO (20:59)
[2022-08-11] MEDS: Tamsulosin HCl 0.4 MG Capsule PO (21:49)
--- NOTE | 2022-08-11 23:42 | CPS ---
Patient refused V60 at this time
[2022-08-12] VITALS (9 sets, daily range): BP systolic 104–134; BP diastolic 55–57; PULSE 16–90; RESP 12–20; TEMP 36.5–36.7; O2SAT 94–97; BMI 41.8
[2022-08-12 00:15] LABS: Bedside Glucose 214 mg/dL (74-106)
[2022-08-12 06:01] LABS: Absolute Lymphocyte Count 1.19 X10^3/uL (0.83-4.51); Absolute Neutrophil Count 6.6 X10^3/uL (2.0-7.7); Basophil# 0.04 X10^3/uL; Basophil% 0.5 % (0-1); Eosinophil# 0.19 X10^3/uL; Eosinophils% 2.2 % (0-5); Hematocrit 34.9 % (40-54); Lymphocyte # 1.19 X10^3/ul (0.83-4.51); Lymphocyte % 13.7 % (19-41); Mean Corp Hgb Conc 31.5 g/dL (32-36); Mean Corpuscular Hgb 29.8 pg (27.0-32.0); Mean Corpuscular Volume 94.6 fL (80-94); Mean Platelet Vol. 11.2 fl (6.2-12.0); Monocyte# 0.69 X10^3/uL; Monocyte% 7.9 % (0-10); NRBC Flagged by Analyzer 0 % (0-5); Neutrophil # 6.55 X10^3/uL (2.7-7.7); Neutrophil % 75.4 % (47-70); Platelet Count 179 K/mm3 (150-450); RBC Distribution Width CV 14.4 % (11.6-14.6); RBC Distribution Width SD 50.1 fl (35.1-43.9); Red Blood Count 3.69 M/mm3 (4.6-6.2); White Blood Count 8.7 K/mm3 (4.4-11.0)
[2022-08-12] MEDS: Furosemide 40 MG/4 ML Vial IV ×3 (06:17→22:15)
[2022-08-12 06:36] LABS: Bedside Glucose 174 mg/dL (74-106)
[2022-08-12] MEDS: Budesonide Respules 0.5 MG/2 ML AMPUL.NEB. INHALATION ×2 (06:41→19:44)
[2022-08-12 06:45] LABS: Anion Gap 7 (5-15); BUN 18 mg/dL (7-18); BUN/Creat Ratio 16.5 RATIO (10-20); Chloride 105 mmol/L (98-107); Creatinine, Serum 1.09 mg/dL (0.70-1.30); EST Glomerular Filtration Rate 71 mL/min (>60); Est Glom Filt Rate - Afr Amer 86 mL/min (>60); Estimated Creatinine Clearance 71.22 ml/min; Glucose 165 mg/dL (74-106); Magnesium 2.1 mg/dL (1.6-2.6); Phosphorus 2.6 mg/dL (2.5-4.9); Potassium 3.7 mmol/L (3.5-5.1); Sodium Level 141 mmol/L (136-145)
[2022-08-12] MEDS: Acetaminophen 325 MG Tablet 650 MG PO (06:45)
[2022-08-12] MEDS: oxyCODONE 5 MG Tablet PO ×2 (06:46→23:48)
[2022-08-12 08:00] LABS: Bedside Glucose 181 mg/dL (74-106)
--- NOTE | 2022-08-12 08:03 | PCM.PN.HOSP ---
Reason for Visit Reason for Visit: Diagnoses Acute on chronic systolic (congestive) heart failure (08/11/22) Subjective Subjective Patient seen has been weaned off BiPAP Objective Data Objective Data Vital Signs: Vital Signs Temp Pulse Resp BP Pulse Ox O2 Del Method O2 Flow Rate 97.7 F L 90 18 104/56 L 95 Room Air 2 08/12/22 03:00 08/12/22 03:00 08/12/22 03:00 08/12/22 03:00 08/12/22 03:00 08/12/22 03:00 08/11/22 13:20 FiO2 21 08/11/22 11:30 Oxygen Flow Rate (L/min) 2 Oxygen Delivery Method Room Air Weight: 147.7 kg Body Mass Index (BMI) 41.8 Intake & Output: Intake and Output for Last 24 Hours 08/10/22 08/11/22 08/12/22 23:59 23:59 23:59 Intake Total 1220 / 1220 360 / 360 Output Total 3100 / 3100 1450 / 1450 Balance -1880 / -1880 -1090 / -1090 Lab / Micro Data Result Diagrams: 08/12/22 05:36 08/12/22 05:36 Labs: Laboratory Results - last 24 hr 08/11/22 08:45: Troponin I High Sens 34 08/11/22 08:45: Lactic Acid 1.8 08/11/22 11:25: POC Glucose 179 H 08/11/22 11:30: Troponin I High Sens 39 08/11/22 16:05: POC Glucose 215 H 08/11/22 20:54: POC Glucose 214 H 08/12/22 05:36: WBC 8.7, RBC 3.69 L, Hgb 11.0 L, Hct 34.9 L, MCV 94.6 H, MCH 29.8, MCHC 31.5 L, RDW Std Deviation 50.1 H, RDW Coeff of Sherin 14.4, Plt Count 179, MPV 11.2, Immature Gran % (Auto) 0.300, Neut % (Auto) 75.4 H, Lymph % (Auto) 13.7 L, [place] % (Auto) 7.9, Eos % (Auto) 2.2, Baso % (Auto) 0.5, Absolute Neuts (auto) 6.6, Absolute Lymphs (auto) 1.19, Nucleated RBC % 0 08/12/22 05:36: Sodium 141, Potassium 3.7, Chloride 105, Carbon Dioxide 29.0, Anion Gap 7, BUN 18, Creatinine 1.09, Estim Creat Clear Calc 71.22, Est GFR (MDRD) Af Amer 86, Est GFR (MDRD) Non-Af 71, BUN/Creatinine Ratio 16.5, Glucose 165 H, Calcium 9.0, Phosphorus 2.6, Magnesium 2.1 08/12/22 06:11: POC Glucose 174 H 08/12/22 07:40: POC Glucose 181 H Physical Exam Narrative GENERAL: Dyspneic at rest on BiPAP HEENT: Atraumatic; normocephalic EYES; Anicteric, Normal Conjunctiva NECK; supple, normal thyroid, RESPIRATORY: Diminished to auscultation CARDIOVASCULAR: Regular S1 S2, GI: soft, normoactive bowel sounds, : No Renal angle tenderness; EXTREMITIES: Chronic skin changes involving both lower extremity with +1 pitting edema MUSCULOSKELETAL: no muscle wasting NEURO: Awake; no lateralizing signs. SKIN: As described above PSYCH; Flat affect Assessment & Plan Assessment/Plan (1) Acute on chronic systolic (congestive) heart failure: PLAN: Plan Patient is a 72-year-old gentleman presenting with progressive shortness of breath and assessment of acute hypoxic respiratory failure made admitted to monitored bed for further management 1. Acute hypoxic respiratory failure ? Evidenced by patient being tachypneic hypoxic and using accessory muscles of breathing. Patient was placed on noninvasive ventilation BiPAP ? 08/12/2022 patient has been weaned off BiPAP 2. Acute on chronic congestive heart failure with reduced ejection fraction ? Echo obtained on 07/27/2022 demonstrated EF of 45%. Patient is on beta-blockers, Entresto, Aldactone as well as furosemide. Furosemide p.o. was held started on IV furosemide. Also placed on strict input and output Daily weight fluid restriction as well as low-sodium diet in addition to supplemental oxygen as discussed above ? 08/12/2022; patient is in negative fluid balance of almost 3 L following admission 3. Acute hypertensive emergency ? This is evidenced by evidence of endorgan damage i.e. congestive heart failure patient did receive nitroglycerin in the emergency department we will continue to monitor goal is to keep systolic blood pressure less than 140 4. Coronary artery disease ? With previous CABG 5. Diabetes mellitus type 2 ? Did continue patient long-acting insulin in addition to scheduled Premeal insulin and correction factor sliding scale. Was placed on Accu-Cheks before meals and at bedtime 6. Obstructive sleep apnea ? Patient is on CPAP at night 7. Dyslipidemia ? Patient is on pravastatin plan is to continue 8. BPH patient is on tamsulosin did continue 9. History of previous CVA ? Patient apparently is bedridden has an indwelling chronic Lane catheter as well as an ostomy. Patient is on antiplatelet therapy as well as statin therapy did continue 10. Class III obesity with BMI of 43.2 ? Weight loss advised 11. DVT prophylaxis ? Patient placed on Lovenox 40 mg SC Q12 Time spent in the patient's overall evaluation,decision-making process, review of diagnostic data, adjustment of management, discussion with other providers, nursing nursing and ancillary staff involved in patient's care documentation, 57 Minutes ? Charges/Coding Visit Charges Inpatient E&M: 14313 [facility] Hosp L3
[2022-08-12] MEDS: Insulin Lispro 100 UNIT/ML INSULN.PEN 15 UNIT SC ×3 (09:00→16:54)
[2022-08-12] MEDS: DULoxetine Hcl 30 MG Capsule PO ×2 (09:01→22:13)
[2022-08-12] MEDS: Loratadine 10 MG Tablet PO (09:01)
[2022-08-12] MEDS: Carvedilol 25 MG Tablet PO ×2 (09:01→22:13)
[2022-08-12] MEDS: Spironolactone 25 MG Tablet PO (09:01)
[2022-08-12] MEDS: Amantadine 100 MG Capsule PO (09:01)
[2022-08-12] MEDS: SACUBITRIL/VALSARTAN 49-51 MG TABLET 1 EACH PO ×2 (09:01→22:15)
[2022-08-12] MEDS: Enoxaparin 40 MG/0.4 ML Syringe SC ×2 (09:01→22:15)
[2022-08-12] MEDS: Pantoprazole Sodium 40 MG Tablet PO (09:01)
[2022-08-12] MEDS: Insulin Lispro 100 UNIT/ML INSULN.PEN SC ×4 (09:01→23:20)
[2022-08-12] MEDS: Gabapentin 300 MG Capsule PO (09:01)
[2022-08-12] MEDS: Senna/Docusate Sodium 1 Tablet 2 TABLET PO ×2 (09:01→22:16)
[2022-08-12] MEDS: Aspirin 81 MG TAB.CHEW PO (09:01)
[2022-08-12] MEDS: TICAGRELOR 90 MG TABLET PO ×2 (09:01→22:13)
[2022-08-12] MEDS: levoFLOXacin 750 MG Tablet PO (09:01)
[2022-08-12] MEDS: Potassium Chloride Oral Tablet 20 MEQ 40 MEQ PO (09:01)
[2022-08-12 12:11] LABS: Bedside Glucose 210 mg/dL (74-106)
[2022-08-12] MEDS: 0.9% Saline Lock 10 ML Syringe IV (13:12)
[2022-08-12 17:31] LABS: Bedside Glucose 175 mg/dL (74-106)
[2022-08-12] MEDS: Pramipexole Di-HCl 0.25 MG Tablet PO (22:14)
[2022-08-12] MEDS: Pravastatin 80 MG Tablet PO (22:14)
[2022-08-12] MEDS: MELATONIN 3 MG TABLET PO (22:15)
[2022-08-12] MEDS: Tamsulosin HCl 0.4 MG Capsule PO (22:17)
[2022-08-12] MEDS: traZODone 100 MG Tablet PO (22:17)
[2022-08-12] MEDS: FLUoxetine 20 MG Capsule 60 MG PO (22:18)
[2022-08-12] MEDS: Insulin Glargine-YFGN 100 UNIT/ML Pen 28 UNIT SC (23:20)
[2022-08-12 23:51] LABS: Bedside Glucose 181 mg/dL (74-106)
[2022-08-13] VITALS: BP 130/56; PULSE 85; RESP 16; TEMP 36.6; O2SAT 96
--- NOTE | 2022-08-13 04:10 | CPS ---
RT added humidity to bipap, pt still unable to tolerate due to tightness mask has to be to get good seal. bipap not sealing well because of fisher.
[2022-08-13 04:40] LABS: Absolute Lymphocyte Count 1.52 X10^3/uL (0.83-4.51); Absolute Neutrophil Count 6.1 X10^3/uL (2.0-7.7); Basophil# 0.05 X10^3/uL; Basophil% 0.6 % (0-1); Eosinophil# 0.24 X10^3/uL; Eosinophils% 2.7 % (0-5); Hematocrit 36.6 % (40-54); Hemoglobin 11.5 g/dL (13.0-16.5); Lymphocyte # 1.52 X10^3/ul (0.83-4.51); Lymphocyte % 17.3 % (19-41); Mean Corp Hgb Conc 31.4 g/dL (32-36); Mean Corpuscular Hgb 29.7 pg (27.0-32.0); Mean Corpuscular Volume 94.6 fL (80-94); Mean Platelet Vol. 11.5 fl (6.2-12.0); Monocyte# 0.86 X10^3/uL; Monocyte% 9.8 % (0-10); NRBC Flagged by Analyzer 0 % (0-5); Neutrophil # 6.08 X10^3/uL (2.7-7.7); Neutrophil % 69.1 % (47-70); Platelet Count 175 K/mm3 (150-450); RBC Distribution Width CV 14.6 % (11.6-14.6); RBC Distribution Width SD 50.7 fl (35.1-43.9); Red Blood Count 3.87 M/mm3 (4.6-6.2); White Blood Count 8.8 K/mm3 (4.4-11.0)
[2022-08-13 05:04] LABS: Anion Gap 9 (5-15); BUN 21 mg/dL (7-18); BUN/Creat Ratio 19.6 RATIO (10-20); Calcium,Total 9.2 mg/dL (8.5-10.1); Chloride 106 mmol/L (98-107); Creatinine, Serum 1.07 mg/dL (0.70-1.30); EST Glomerular Filtration Rate 72 mL/min (>60); Est Glom Filt Rate - Afr Amer 87 mL/min (>60); Estimated Creatinine Clearance 72.55 ml/min; Glucose 168 mg/dL (74-106); Potassium 3.6 mmol/L (3.5-5.1); Sodium Level 141 mmol/L (136-145)
[2022-08-13] MEDS: Furosemide 40 MG/4 ML Vial IV (05:16)
[2022-08-13 05:24] VITALS: BP 114/65; PULSE 75; RESP 16; TEMP 36.4; O2SAT 99
[2022-08-13 06:00] VITALS: BMI 41.1
[2022-08-13 07:25] VITALS: PULSE 78; RESP 20; O2SAT 100
[2022-08-13] MEDS: Budesonide Respules 0.5 MG/2 ML AMPUL.NEB. INHALATION (07:25)
[2022-08-13 07:31] VITALS: O2SAT 96
[2022-08-13 08:38] VITALS: BP 100/60; PULSE 84; RESP 16; TEMP 36.6; O2SAT 97
[2022-08-13] MEDS: Insulin Lispro 100 UNIT/ML INSULN.PEN 15 UNIT SC (08:44)
[2022-08-13] MEDS: Insulin Lispro 100 UNIT/ML INSULN.PEN SC (08:44)
[2022-08-13] MEDS: Aspirin 81 MG TAB.CHEW PO (08:45)
[2022-08-13] MEDS: Potassium Chloride Oral Tablet 20 MEQ 40 MEQ PO (08:46)
[2022-08-13] MEDS: Spironolactone 25 MG Tablet PO (08:46)
[2022-08-13] MEDS: Enoxaparin 40 MG/0.4 ML Syringe SC (08:48)
--- NOTE | 2022-08-13 08:50 | PN.HOSP_ITS ---
Reason for Visit Reason for Visit: Diagnoses Acute on chronic systolic (congestive) heart failure (08/11/22) Subjective Subjective Patient seen continues to improve respiratory [place]. Still remains in negative fluid balance. Plans for patient to be assessed for possible discharge Objective Data Objective Data Vital Signs: Vital Signs Temp Pulse Resp BP Pulse Ox O2 Del Method O2 Flow Rate 97.8 F 84 16 100/60 97 Room Air 2 08/13/22 08:38 08/13/22 08:38 08/13/22 08:38 08/13/22 08:38 08/13/22 08:38 08/13/22 08:38 08/13/22 07:25 FiO2 21 08/12/22 23:07 Oxygen Flow Rate (L/min) 2 Oxygen Delivery Method Room Air Weight: 145.1 kg Body Mass Index (BMI) 41.1 Intake & Output: Intake and Output for Last 24 Hours 08/11/22 08/12/22 08/13/22 23:59 23:59 23:59 Intake Total 1220 / 1220 1370 / 1370 Output Total 3100 / 3100 4675 / 4675 600 / 600 Balance -1880 / -1880 -3305 / -3305 -600 / -600 Lab / Micro Data Result Diagrams: 08/13/22 04:07 08/13/22 04:07 Labs: Laboratory Results - last 24 hr 08/12/22 11:49: POC Glucose 210 H 08/12/22 16:52: POC Glucose 175 H 08/12/22 23:16: POC Glucose 181 H 08/13/22 04:07: WBC 8.8, RBC 3.87 L, Hgb 11.5 L, Hct 36.6 L, MCV 94.6 H, MCH 29.7, MCHC 31.4 L, RDW Std Deviation 50.7 H, RDW Coeff of Sherin 14.6, Plt Count 175, MPV 11.5, Immature Gran % (Auto) 0.500, Neut % (Auto) 69.1, Lymph % (Auto) 17.3 L, [place] % (Auto) 9.8, Eos % (Auto) 2.7, Baso % (Auto) 0.6, Absolute Neuts (auto) 6.1, Absolute Lymphs (auto) 1.52, Nucleated RBC % 0 08/13/22 04:07: Sodium 141, Potassium 3.6, Chloride 106, Carbon Dioxide 26.0, Anion Gap 9, BUN 21 H, Creatinine 1.07, Estim Creat Clear Calc 72.55, Est GFR (MDRD) Af Amer 87, Est GFR (MDRD) Non-Af 72, BUN/Creatinine Ratio 19.6, Glucose 168 H, Calcium 9.2 Physical Exam Narrative GENERAL: Dyspneic at rest on BiPAP HEENT: Atraumatic; normocephalic EYES; Anicteric, Normal Conjunctiva NECK; supple, normal thyroid, RESPIRATORY: Diminished to auscultation CARDIOVASCULAR: Regular S1 S2, GI: soft, normoactive bowel sounds, : No Renal angle tenderness; EXTREMITIES: Chronic skin changes involving both lower extremity with +1 pitting edema MUSCULOSKELETAL: no muscle wasting NEURO: Awake; no lateralizing signs. SKIN: As described above PSYCH; Flat affect Assessment & Plan Assessment/Plan (1) Acute on chronic systolic (congestive) heart failure: PLAN: Plan Patient is a 72-year-old gentleman presenting with progressive shortness of breath and assessment of acute hypoxic respiratory failure made admitted to monitored bed for further management 1. Acute hypoxic respiratory failure ? Evidenced by patient being tachypneic hypoxic and using accessory muscles of b reathing. Patient was placed on noninvasive ventilation BiPAP ? 08/12/2022 patient has been weaned off BiPAP 2. Acute on chronic congestive heart failure with reduced ejection fraction ? Echo obtained on 07/27/2022 demonstrated EF of 45%. Patient is on beta- blockers, Entresto, Aldactone as well as furosemide. Furosemide p.o. was held started on IV furosemide. Also placed on strict input and output Daily weight fluid restriction as well as low-sodium diet in addition to supplemental oxygen as discussed above ? 08/12/2022; patient is in negative fluid balance of almost 3 L following admission -08/13/2022 patient seen continues to improve respiratory [place]. Still remains in negative fluid balance. Plans for patient to be assessed for possible discharge 3. Acute hypertensive emergency ? This is evidenced by evidence of endorgan damage i.e. congestive heart failure patient did receive nitroglycerin in the emergency department we will continue to monitor goal is to keep systolic blood pressure less than 140 4. Coronary artery disease ? With previous CABG 5. Diabetes mellitus type 2 ? Did continue patient long-acting insulin in addition to scheduled Premeal insulin and correction factor sliding scale. Was placed on Accu-Cheks before meals and at bedtime 6. Obstructive sleep apnea ? Patient is on CPAP at night 7. Dyslipidemia ? Patient is on pravastatin plan is to continue 8. BPH patient is on tamsulosin did continue 9. History of previous CVA ? Patient apparently is bedridden has an indwelling chronic Lane catheter as well as an ostomy. Patient is on antiplatelet therapy as well as statin therapy did continue 10. Class III obesity with BMI of 43.2 ? Weight loss advised 11. DVT prophylaxis ? Patient placed on Lovenox 40 mg SC Q12 Time spent in the patient's overall evaluation,decision-making process, review of diagnostic data, adjustment of management, discussion with other providers, nursing nursing and ancillary staff involved in patient's care documentation, 37 Minutes ? Charges/Coding Visit Charges Inpatient E&M: 06946 Subs Hosp L2
[2022-08-13] MEDS: TICAGRELOR 90 MG TABLET PO (08:51)
[2022-08-13] MEDS: DULoxetine Hcl 30 MG Capsule PO (08:51)
[2022-08-13] MEDS: Loratadine 10 MG Tablet PO (08:51)
[2022-08-13] MEDS: Pantoprazole Sodium 40 MG Tablet PO (08:52)
[2022-08-13] MEDS: levoFLOXacin 750 MG Tablet PO (08:52)
[2022-08-13] MEDS: Senna/Docusate Sodium 1 Tablet 2 TABLET PO (08:53)
[2022-08-13] MEDS: Amantadine 100 MG Capsule PO (08:53)
--- NOTE | 2022-08-13 08:59 | TREXTCAR_ITS ---
Diet Diet Order/Speech Therapy: 08/11/22 15:37 Diet: Cardiac: Calorie-Controlled Is pt able to select menu?: Yes Fluid restriction:: 1750 mL How many daily calories?: 1800 calorie Routine Orders/Code Status O2 Frequency: PRN Keep PO Greater than or Equal to (%): 90 Therapies Physical Therapy: Eval and Treat Occupational Therapy: Eval and Treat Problem/Diagnosis (1) Acute on chronic systolic (congestive) heart failure: Status: Chronic Code(s): I50.23 - Acute on chronic systolic (congestive) heart failure Plan Patient is a 72-year-old gentleman presenting with progressive shortness of breath and assessment of acute hypoxic respiratory failure made admitted to monitored bed for further management 1. Acute hypoxic respiratory failure ? Evidenced by patient being tachypneic hypoxic and using accessory muscles of breathing. Patient was placed on noninvasive ventilation BiPAP ? 08/12/2022 patient has been weaned off BiPAP 2. Acute on chronic congestive heart failure with reduced ejection fraction ? Echo obtained on 07/27/2022 demonstrated EF of 45%. Patient is on beta- blockers, Entresto, Aldactone as well as furosemide. Furosemide p.o. was held started on IV furosemide. Also placed on strict input and output Daily weight fluid restriction as well as low-sodium diet in addition to supplemental oxygen as discussed above ? 08/12/2022; patient is in negative fluid balance of almost 3 L following admission -08/13/2022 patient seen continues to improve respiratory [place]. Still remains in negative fluid balance. Plans for patient to be assessed for possible discharge 3. Acute hypertensive emergency ? This is evidenced by evidence of endorgan damage i.e. congestive heart failure patient did receive nitroglycerin in the emergency department we will continue to monitor goal is to keep systolic blood pressure less than 140 4. Coronary artery disease ? With previous CABG 5. Diabetes mellitus type 2 ? Did continue patient long-acting insulin in addition to scheduled Premeal insulin and correction factor sliding scale. Was placed on Accu-Cheks before meals and at bedtime 6. Obstructive sleep apnea ? Patient is on CPAP at night 7. Dyslipidemia ? Patient is on pravastatin plan is to continue 8. BPH patient is on tamsulosin did continue 9. History of previous CVA ? Patient apparently is bedridden has an indwelling chronic Lane catheter as well as an ostomy. Patient is on antiplatelet therapy as well as statin therapy did continue 10. Class III obesity with BMI of 43.2 ? Weight loss advised 11. DVT prophylaxis ? Patient placed on Lovenox 40 mg SC Q12 Time spent in the patient's overall evaluation,decision-making process, review of diagnostic data, adjustment of management, discussion with other providers, nursing nursing and ancillary staff involved in patient's care documentation, 37 Minutes ? Allergies/Procedures Done in Hospital Allergies atorvastatin Allergy (Verified 07/27/22 03:13) PT UNSURE OF REACTION cilostazol Allergy (Verified 07/27/22 03:13) Hives colestipol Allergy (Verified 07/27/22 03:13) Hives diltiazem Allergy (Verified 07/27/22 03:13) Hives gemfibrozil Allergy (Verified 07/27/22 03:13) Hives naproxen [From Naprosyn] Allergy (Verified 07/27/22 03:13) Hives niacin Allergy (Verified 07/27/22 03:13) PT UNSURE OF REACTION Nitrate Analogues Allergy (Verified 07/27/22 03:13) Hives Penicillins Allergy (Verified 07/27/22 03:13) Hives pravastatin Allergy (Verified 07/27/22 03:13) NEEDS FOLLOW-UP procainamide Allergy (Verified 07/27/22 03:13) Hives procaine Allergy (Verified 07/27/22 03:13) NEEDS FOLLOW-UP rosuvastatin Allergy (Verified 07/27/22 03:13) Hives simvastatin Allergy (Verified 07/27/22 03:13) Hives isosorbide Adverse Reaction (Severe, Verified 07/27/22 03:13) Unknown Type of Care/Length of Stay Estimated LOS: Convalescent Care Less Than 30 days Type of Care Needed: Skilled Rehab Potential: Fair Prognosis: Good Additional Orders/Day of Discharge H&P will serve as current which was dated: 08/13/22 Day of Discharge: 08/13/22 Dietary and Speech Recommendations Dietitian Recommendations/Changes: Will change diet to 1800 josep Cardiac/ Sodium Restricted diet w/ 1750 ml fluid restriction/day. Discharge Plan Admission Admit Date/Time: 08/11/22 07:26 Attending Provider: Aris Brownlee Primary Care Provider: Phillip Lindo Discharge Orders/Prescriptions Prescriptions: Continued aluminum-magnesium hydroxide 225-200 mg/5 mL suspension 30 ml PO Q4H PRN (Reason: GI distress) bisacodyl 10 mg suppository 10 mg IA DAILY PRN (Reason: constipaiton) duloxetine 60 mg capsule,delayed release(DR/EC) 30 mg PO BID Fleet Enema 19-7 gram/118 mL enema 118 ml IA ONCE PRN (Reason: Constipation) guaifenesin 200 mg/5 mL liquid 10 mg PO Q4H PRN (Reason: Cough) magnesium hydroxide [Milk of Magnesia] 400 mg/5 mL suspension 30 ml PO DAILY PRN (Reason: consipation) nystatin 100,000 unit/gram powder 1 applic topical DAILY PRN (Reason: excoriation) fluoxetine 40 mg capsule 60 mg PO QPM trazodone 50 mg tablet 100 mg PO QHS Entresto 49-51 mg tablet 1 tab PO BID Qty: 60 11RF amantadine HCl 100 MG capsule 100 mg PO DAILY pravastatin 80 MG tablet 80 mg PO QHS pantoprazole 40 MG tablet 40 mg PO DAILY pramipexole 0.25 MG tablet 0.25 mg PO QHS nitroglycerin 0.4 MG tablet, sublingual 0.4 mg sublingual PRN PRN (Reason: CHEST PAIN) aspirin 81 MG tablet,chewable 81 mg PO DAILY@0800 insulin aspart U-100 [Novolog FlexPen U-100 Insulin] 100 UNITS/ML insulin pen See Protocol SC TIDCM Protocol: 6. Sliding Scale Insulin Custom Condition: mg/dl range Dose/Route: Number of Units Condition: 150-199 Dose/Route: 2 Condition: 200-259 Dose/Route: 4 Condition: 260-324 Dose/Route: 6 Condition: 325-374 Dose/Route: 8 Condition: 375-409 Dose/Route: 10 Condition: 410-449 Dose/Route: 11 Protocol Text: Custom Sliding Scale Rx Instructions: sliding scale sennosides-docusate sodium 1 EACH tablet 2 ea PO BID melatonin 3 MG tablet,disintegrating 3 mg PO QHS tamsulosin 0.4 mg Capsule 0.4 mg PO QHS fluticasone propionate 110 mcg/actuation Hfa Aerosol Inhaler 1 puff INHALATION BID insulin aspart U-100 [Novolog FlexPen U-100 Insulin] 100 unit/mL (3 mL) Insulin Pen 15 unit SUBCUT TIDCM Brilinta 90 mg Tablet 90 mg PO BID carvedilol 25 mg Tablet 25 mg PO BID Qty: 0 0RF potassium chloride 20 mEq tablet,ER particles/crystals 40 meq PO DAILY 90 Days Qty: 90 0RF insulin glargine [Lantus Solostar U-100 Insulin] 100 unit/mL (3 mL) Insulin Pen 28 unit SUBCUT QPM spironolactone 25 mg tablet 25 mg PO DAILY Qty: 30 0RF cetirizine [Zyrtec] 10 mg Tablet 10 mg PO DAILY gabapentin 300 mg capsule 300 mg PO DAILY acetaminophen 500 MG tablet 650 mg PO Q4H PRN PRN (Reason: Mild Pain (-08/15)) levofloxacin 750 mg tablet 750 mg PO DAILY Qty: 9 0RF oxycodone 5 MG tablet 5 mg PO Q6H PRN PRN (Reason: Pain Or Fever) 2 Days Qty: 8 0RF Changed furosemide 40 mg tablet 80 mg PO BID 60 Days Qty: 240 0RF Referrals / Follow Up: Phillip Lindo MD [Primary Care Provider] - In 1 Week Disposition Disposition (needs filled in before D/C Order can be placed): Longterm Facility
--- NOTE | 2022-08-13 09:01 | PCM.DC.SUM ---
Providers Date of Admission: 08/11/22 Date of Discharge: 08/13/22 Primary Care Physician: Dr. Phillip Lindo MD Reason For Visit: CHF Diagnosis Discharge Diagnosis (1) Acute on chronic systolic (congestive) heart failure: Status: Chronic Code(s): I50.23 - Acute on chronic systolic (congestive) heart failure Plan Patient is a 72-year-old gentleman presenting with progressive shortness of breath and assessment of acute hypoxic respiratory failure made admitted to monitored bed for further management 1. Acute hypoxic respiratory failure ? Evidenced by patient being tachypneic hypoxic and using accessory muscles of breathing. Patient was placed on noninvasive ventilation BiPAP ? 08/12/2022 patient has been weaned off BiPAP 2. Acute on chronic congestive heart failure with reduced ejection fraction ? Echo obtained on 07/27/2022 demonstrated EF of 45%. Patient is on beta-blockers, Entresto, Aldactone as well as furosemide. Furosemide p.o. was held started on IV furosemide. Also placed on strict input and output Daily weight fluid restriction as well as low-sodium diet in addition to supplemental oxygen as discussed above ? 08/12/2022; patient is in negative fluid balance of almost 3 L following admission -08/13/2022 patient seen continues to improve respiratory [place]. Still remains in negative fluid balance. Plans for patient to be assessed for possible discharge ? Patient Lasix dose was modified from 40 mg p.o. twice daily to 80 mg p.o. twice daily at discharge 3. Acute hypertensive emergency ? This is evidenced by evidence of endorgan damage i.e. congestive heart failure patient did receive nitroglycerin in the emergency department we will continue to monitor goal is to keep systolic blood pressure less than 140 4. Coronary artery disease ? With previous CABG 5. Diabetes mellitus type 2 ? Did continue patient long-acting insulin in addition to scheduled Premeal insulin and correction factor sliding scale. Was placed on Accu-Cheks before meals and at bedtime 6. Obstructive sleep apnea ? Patient is on CPAP at night 7. Dyslipidemia ? Patient is on pravastatin plan is to continue 8. BPH patient is on tamsulosin did continue 9. History of previous CVA ? Patient apparently is bedridden has an indwelling chronic Lane catheter as well as an ostomy. Patient is on antiplatelet therapy as well as statin therapy did continue 10. Class III obesity with BMI of 43.2 ? Weight loss advised 11. DVT prophylaxis ? Patient placed on Lovenox 40 mg SC Q12 Time spent in the patient's overall evaluation,decision-making process, review of diagnostic data, adjustment of management, discussion with other providers, nursing nursing and ancillary staff involved in patient's care documentation, 37 Minutes ? Medications at Discharge Home Medications amantadine HCl 100 mg capsule 100 mg PO DAILY [place] 04/17/18 pantoprazole 40 mg tablet,delayed release 40 mg PO DAILY STOMACH 04/17/18 pramipexole 0.25 mg tablet 0.25 mg PO QHS [place] 04/17/18 pravastatin 80 mg tablet 80 mg PO QHS CHOLESTEROL 04/17/18 nitroglycerin 0.4 mg sublingual tablet 0.4 mg sublingual PRN PRN CHEST PAIN 02/20/19 aspirin 81 mg chewable tablet 81 mg PO DAILY@0800 heart health 02/24/19 insulin aspart U-100 100 unit/mL (3 mL) subcutaneous pen (Novolog FlexPen U-100 Insulin aspart) See Protocol subcut TIDCM blood sugar 09/14/19 sennosides 8.6 mg-docusate sodium 50 mg tablet 2 ea PO BID constipation 01/02/20 melatonin 3 mg disintegrating tablet 3 mg PO QHS sleep 09/14/20 fluticasone propionate 110 mcg/actuation HFA aerosol inhaler 1 puff inhalation BID allergies 02/17/21 insulin aspart U-100 100 unit/mL (3 mL) subcutaneous pen (Novolog FlexPen U-100 Insulin aspart) 15 unit subcut TIDCM blood sugar 02/17/21 tamsulosin 0.4 mg capsule 0.4 mg PO QHS prostate 02/17/21 ticagrelor 90 mg tablet (Brilinta) 90 mg PO BID heart 02/17/21 carvedilol 25 mg tablet 25 mg PO BID #0 tabs 02/20/21 potassium chloride 20 mEq tablet,extended release(part/cryst) 40 meq PO DAILY supplement 90 days #90 tabs 02/20/21 insulin glargine 100 unit/mL (3 mL) subcutaneous pen (Lantus Solostar U-100 Insulin) 28 unit subcut QPM DM 04/25/21 spironolactone 25 mg tablet 25 mg PO DAILY #30 tabs 04/29/21 aluminum-magnesium hydroxide 225 mg-200 mg/5 mL oral suspension 30 ml PO Q4H PRN GI distress 10/11/21 bisacodyl 10 mg rectal suppository 10 mg ID DAILY PRN constipaiton 10/11/21 duloxetine 60 mg capsule,delayed release 30 mg PO BID depression 10/11/21 fluoxetine 40 mg capsule 60 mg PO QPM depression 10/11/21 guaifenesin 200 mg/5 mL oral liquid 10 mg PO Q4H PRN Cough 10/11/21 magnesium hydroxide 400 mg/5 mL oral suspension (Milk of Magnesia) 30 ml PO DAILY PRN consipation 10/11/21 nystatin 100,000 unit/gram topical powder 1 applic topical DAILY PRN excoriation 10/11/21 sacubitril 49 mg-valsartan 51 mg tablet (Entresto) 1 tab PO BID #60 tabs 10/11/21 sodium phosphates 19 gram-7 gram/118 mL enema (Fleet Enema) 118 ml ID ONCE PRN Constipation 10/11/21 trazodone 50 mg tablet 100 mg PO QHS sleep 10/11/21 acetaminophen 500 mg tablet 650 mg PO Q4H PRN PRN Mild Pain (1-3/10) 07/27/22 cetirizine 10 mg tablet (Zyrtec) 10 mg PO DAILY sinus 07/27/22 gabapentin 300 mg capsule 300 mg PO DAILY neuropathy 07/27/22 levofloxacin 750 mg tablet 750 mg PO DAILY #9 tabs 07/28/22 furosemide 40 mg tablet 80 mg PO BID CHF 60 days #240 tabs 08/13/22 oxycodone 5 mg tablet 5 mg PO Q6H PRN PRN Pain Or Fever 2 days #8 tabs 08/13/22 Hospital Course Summary of Care Provided Minutes Spent on Discharge: 37 Physical Exam Narrative GENERAL: Cooperative HEENT: Atraumatic; normocephalic EYES; Anicteric, Normal Conjunctiva NECK; supple, normal thyroid, RESPIRATORY: Diminished to auscultation CARDIOVASCULAR: Regular S1 S2, GI: soft, normoactive bowel sounds, : No Renal angle tenderness; EXTREMITIES: Chronic skin changes involving both lower extremity with +1 pitting edema MUSCULOSKELETAL: no muscle wasting NEURO: Awake; no lateralizing signs. SKIN: As described above PSYCH; Flat affect Weight / BMI Weight Weight: 145.1 kg Body Mass Index (BMI) 41.1 ABG / Lab / Microbiology Data Result Diagrams: 08/13/22 04:07 08/13/22 04:07 Laboratory: Laboratory Results - last 24 hr 08/12/22 11:49: POC Glucose 210 H 08/12/22 16:52: POC Glucose 175 H 08/12/22 23:16: POC Glucose 181 H 08/13/22 04:07: WBC 8.8, RBC 3.87 L, Hgb 11.5 L, Hct 36.6 L, MCV 94.6 H, MCH 29.7, MCHC 31.4 L, RDW Std Deviation 50.7 H, RDW Coeff of Sherin 14.6, Plt Count 175, MPV 11.5, Immature Gran % (Auto) 0.500, Neut % (Auto) 69.1, Lymph % (Auto) 17.3 L, [place] % (Auto) 9.8, Eos % (Auto) 2.7, Baso % (Auto) 0.6, Absolute Neuts (auto) 6.1, Absolute Lymphs (auto) 1.52, Nucleated RBC % 0 08/13/22 04:07: Sodium 141, Potassium 3.6, Chloride 106, Carbon Dioxide 26.0, Anion Gap 9, BUN 21 H, Creatinine 1.07, Estim Creat Clear Calc 72.55, Est GFR (MDRD) Af Amer 87, Est GFR (MDRD) Non-Af 72, BUN/Creatinine Ratio 19.6, Glucose 168 H, Calcium 9.2 Meaningful Use Info Meaningful Use Diagnoses (Choose all that apply): CHF CHF DAINI/ARB ordered at discharge?: Yes Documented LVEF (%): 45 Discharge Plan Admission Admit Date/Time: 08/11/22 07:26 Attending Provider: Aris Brownlee Primary Care Provider: Phillip Lnido Discharge Orders/Prescriptions Prescriptions: Continued aluminum-magnesium hydroxide 225-200 mg/5 mL suspension 30 ml PO Q4H PRN (Reason: GI distress) bisacodyl 10 mg suppository 10 mg ID DAILY PRN (Reason: constipaiton) duloxetine 60 mg capsule,delayed release(DR/EC) 30 mg PO BID Fleet Enema 19-7 gram/118 mL enema 118 ml ID ONCE PRN (Reason: Constipation) guaifenesin 200 mg/5 mL liquid 10 mg PO Q4H PRN (Reason: Cough) magnesium hydroxide [Milk of Magnesia] 400 mg/5 mL suspension 30 ml PO DAILY PRN (Reason: consipation) nystatin 100,000 unit/gram powder 1 applic topical DAILY PRN (Reason: excoriation) fluoxetine 40 mg capsule 60 mg PO QPM trazodone 50 mg tablet 100 mg PO QHS Entresto 49-51 mg tablet 1 tab PO BID Qty: 60 11RF amantadine HCl 100 MG capsule 100 mg PO DAILY pravastatin 80 MG tablet 80 mg PO QHS pantoprazole 40 MG tablet 40 mg PO DAILY pramipexole 0.25 MG tablet 0.25 mg PO QHS nitroglycerin 0.4 MG tablet, sublingual 0.4 mg sublingual PRN PRN (Reason: CHEST PAIN) aspirin 81 MG tablet,chewable 81 mg PO DAILY@0800 insulin aspart U-100 [Novolog FlexPen U-100 Insulin] 100 UNITS/ML insulin pen See Protocol SC TIDCM Protocol: 6. Sliding Scale Insulin Custom Condition: mg/dl range Dose/Route: Number of Units Condition: 150-199 Dose/Route: 2 Condition: 200-259 Dose/Route: 4 Condition: 260-324 Dose/Route: 6 Condition: 325-374 Dose/Route: 8 Condition: 375-409 Dose/Route: 10 Condition: 410-449 Dose/Route: 11 Protocol Text: Custom Sliding Scale Rx Instructions: sliding scale sennosides-docusate sodium 1 EACH tablet 2 ea PO BID melatonin 3 MG tablet,disintegrating 3 mg PO QHS tamsulosin 0.4 mg Capsule 0.4 mg PO QHS fluticasone propionate 110 mcg/actuation Hfa Aerosol Inhaler 1 puff INHALATION BID insulin aspart U-100 [Novolog FlexPen U-100 Insulin] 100 unit/mL (3 mL) Insulin Pen 15 unit SUBCUT TIDCM Brilinta 90 mg Tablet 90 mg PO BID carvedilol 25 mg Tablet 25 mg PO BID Qty: 0 0RF potassium chloride 20 mEq tablet,ER particles/crystals 40 meq PO DAILY 90 Days Qty: 90 0RF insulin glargine [Lantus Solostar U-100 Insulin] 100 unit/mL (3 mL) Insulin Pen 28 unit SUBCUT QPM spironolactone 25 mg tablet 25 mg PO DAILY Qty: 30 0RF cetirizine [Zyrtec] 10 mg Tablet 10 mg PO DAILY gabapentin 300 mg capsule 300 mg PO DAILY acetaminophen 500 MG tablet 650 mg PO Q4H PRN PRN (Reason: Mild Pain (-08/15)) levofloxacin 750 mg tablet 750 mg PO DAILY Qty: 9 0RF oxycodone 5 MG tablet 5 mg PO Q6H PRN PRN (Reason: Pain Or Fever) 2 Days Qty: 8 0RF Changed furosemide 40 mg tablet 80 mg PO BID 60 Days Qty: 240 0RF Referrals / Follow Up: Phillip Lindo MD [Primary Care Provider] - In 1 Week Disposition Disposition (needs filled in before D/C Order can be placed): [facility] Facility Charges/Coding Visit Charges Inpatient E&M: 94004 Disch Hosp >30min
--- NOTE | 2022-08-13 09:49 | CASEMGMT ---
Patient is ready for discharge. CONTRERAS sent orders to [facility] via [facility]. CONTRERAS called Physicians and arranged for patient to get picked up at 1030 via cot. CONTRERAS notified [facility], RN, patient, and secretary bookkeeper. CONTRERAS asked patient if he would like SW to call his . Patient said she is on her way to the hospital. Plan: d/c back to [facility] under intermediate level of care. Physicians will transport via cot. Nydia MADDEN
[2022-08-13 10:22] VITALS: BP 106/71; PULSE 86; RESP 16; TEMP 36.7; O2SAT 96
[2022-08-13] MEDS: SACUBITRIL/VALSARTAN 49-51 MG TABLET 1 EACH PO (10:23)
[2022-08-13] MEDS: Carvedilol 25 MG Tablet PO (10:24)
[2022-08-13] MEDS: Gabapentin 300 MG Capsule PO (10:24)
[2022-08-13] MEDS: oxyCODONE 5 MG Tablet PO (10:25)
--- NOTE | 2022-08-13 11:02 | NURSING ---
Report called to Rach[facility] at [facility].
[2022-08-13 11:05] LABS: Bedside Glucose 302 mg/dL (74-106)
--- NOTE | 2022-08-13 11:31 | PHA.DC.MR ---
Pharmacy Service has performed discharge medication reconciliation for this patient. The patient's discharge medication list was reviewed for discrepancies and discrepancies were resolved. Per fill history, patient takes both fluoxetine and duloxetine. Home Medications amantadine HCl 100 mg capsule 100 mg PO DAILY [place] 04/17/18 pantoprazole 40 mg tablet,delayed release 40 mg PO DAILY STOMACH 04/17/18 pramipexole 0.25 mg tablet 0.25 mg PO QHS [place] 04/17/18 pravastatin 80 mg tablet 80 mg PO QHS CHOLESTEROL 04/17/18 nitroglycerin 0.4 mg sublingual tablet 0.4 mg sublingual PRN PRN CHEST PAIN 02/20/19 aspirin 81 mg chewable tablet 81 mg PO DAILY@0800 heart health 02/24/19 insulin aspart U-100 100 unit/mL (3 mL) subcutaneous pen (Novolog FlexPen U-100 Insulin aspart) See Protocol subcut TIDCM blood sugar 09/14/19 sennosides 8.6 mg-docusate sodium 50 mg tablet 2 ea PO BID constipation 01/02/20 melatonin 3 mg disintegrating tablet 3 mg PO QHS sleep 09/14/20 fluticasone propionate 110 mcg/actuation HFA aerosol inhaler 1 puff inhalation BID allergies 02/17/21 insulin aspart U-100 100 unit/mL (3 mL) subcutaneous pen (Novolog FlexPen U-100 Insulin aspart) 15 unit subcut TIDCM blood sugar 02/17/21 tamsulosin 0.4 mg capsule 0.4 mg PO QHS prostate 02/17/21 ticagrelor 90 mg tablet (Brilinta) 90 mg PO BID heart 02/17/21 carvedilol 25 mg tablet 25 mg PO BID #0 tabs 02/20/21 potassium chloride 20 mEq tablet,extended release(part/cryst) 40 meq PO DAILY supplement 90 days #90 tabs 02/20/21 insulin glargine 100 unit/mL (3 mL) subcutaneous pen (Lantus Solostar U-100 Insulin) 28 unit subcut QPM DM 04/25/21 spironolactone 25 mg tablet 25 mg PO DAILY #30 tabs 04/29/21 aluminum-magnesium hydroxide 225 mg-200 mg/5 mL oral suspension 30 ml PO Q4H PRN GI distress 10/11/21 bisacodyl 10 mg rectal suppository 10 mg SD DAILY PRN constipaiton 10/11/21 duloxetine 60 mg capsule,delayed release 30 mg PO BID depression 10/11/21 fluoxetine 40 mg capsule 60 mg PO QPM depression 10/11/21 guaifenesin 200 mg/5 mL oral liquid 10 mg PO Q4H PRN Cough 10/11/21 magnesium hydroxide 400 mg/5 mL oral suspension (Milk of Magnesia) 30 ml PO DAILY PRN consipation 10/11/21 nystatin 100,000 unit/gram topical powder 1 applic topical DAILY PRN excoriation 10/11/21 sacubitril 49 mg-valsartan 51 mg tablet (Entresto) 1 tab PO BID #60 tabs 10/11/21 sodium phosphates 19 gram-7 gram/118 mL enema (Fleet Enema) 118 ml SD ONCE PRN Constipation 10/11/21 trazodone 50 mg tablet 100 mg PO QHS sleep 10/11/21 acetaminophen 500 mg tablet 650 mg PO Q4H PRN PRN Mild Pain (1-08/15) 07/27/22 cetirizine 10 mg tablet (Zyrtec) 10 mg PO DAILY sinus 07/27/22 gabapentin 300 mg capsule 300 mg PO DAILY neuropathy 07/27/22 levofloxacin 750 mg tablet 750 mg PO DAILY #9 tabs 07/28/22 furosemide 40 mg tablet 80 mg PO BID CHF 60 days #240 tabs 08/13/22 oxycodone 5 mg tablet 5 mg PO Q6H PRN PRN Pain Or Fever 2 days #8 tabs 08/13/22
== END 2022-08-13 10:55 | DRG 291 ==
LOC: ED 05:32 → PCU 07:27
PROVIDERS: Admitting Provider Internal Medicine; Emergency Provider Emergency Medicine; PCP Family Medicine; Visit Provider Internal Medicine
DX: I11.0 Hypertensive heart disease with heart failure (principal); J96.01 Acute respiratory failure with hypoxia; I50.23 Acute on chronic systolic (congestive) heart failure; Z68.41 Body mass index [BMI] 40.0-44.9, adult; I16.1 Hypertensive emergency; E11.65 Type 2 diabetes mellitus with hyperglycemia; E66.01 Morbid (severe) obesity due to excess calories; J44.9 Chronic obstructive pulmonary disease, unspecified; Z79.4 Long term (current) use of insulin; E78.5 Hyperlipidemia, unspecified; I25.10 Atherosclerotic heart disease of native coronary artery without angina pectoris; G47.33 Obstructive sleep apnea (adult) (pediatric); I25.5 Ischemic cardiomyopathy; I25.2 Old myocardial infarction; F17.210 Nicotine dependence, cigarettes, uncomplicated; N40.0 Benign prostatic hyperplasia without lower urinary tract symptoms; Z74.01 Bed confinement status; Z66 Do not resuscitate; Z79.82 Long term (current) use of aspirin; Z79.02 Long term (current) use of antithrombotics/antiplatelets; Z79.899 Other long term (current) drug therapy; Z95.1 Presence of aortocoronary bypass graft; Z95.5 Presence of coronary angioplasty implant and graft; Z86.73 Personal history of transient ischemic attack (TIA), and cerebral infarction without residual deficits
CPT/HCPCS: 36415; 71045; 80048; 82962; 83605; 83735; 83880; 84100; 84484; 85025; 93005; 94002; 94003; 94640; 94668; 94762; 99252; 99285; A4216; G0463; J1940

== ENCOUNTER → 2022-09-05 | Outpatient (REF) | payer MEDICARE, MEDICAID, SELFPAY ==
[2017-02-20 12:18] VITALS: BMI 46.4
[2022-09-05 07:04] LABS: Hematocrit 37.5 % (40-54); Hemoglobin 11.6 g/dL (13.0-16.5); Mean Corp Hgb Conc 30.9 g/dL (32-36); Mean Corpuscular Hgb 29.4 pg (27.0-32.0); Mean Corpuscular Volume 94.9 fL (80-94); Mean Platelet Vol. 12.2 fl (6.2-12.0); Platelet Count 143 K/mm3 (150-450); RBC Distribution Width SD 48.3 fl (35.1-43.9); Red Blood Count 3.95 M/mm3 (4.6-6.2); White Blood Count 8.1 K/mm3 (4.4-11.0)
== END ==
LOC: OLS.SW 05:00
PROVIDERS: PCP Family Medicine; Visit Provider Family Medicine
DX: I50.9 Heart failure, unspecified (principal); E11.9 Type 2 diabetes mellitus without complications
CPT/HCPCS: 36415; 85027

== ENCOUNTER 2022-10-04 22:34 | Inpatient (IN) | payer MEDICARE, MEDICAID, SELFPAY ==
[2017-02-20 12:18] VITALS: BMI 46.4
[2022-10-04] VITALS (11 sets, daily range): BP systolic 103–184; BP diastolic 52–125; PULSE 111–139; RESP 12–49; TEMP 36.4–37.4; O2SAT 69–97; BMI 44.7
--- NOTE | 2022-10-04 22:44 | ED.VIS.DYS ---
HPI History of Present Illness Chief Complaint: Shortness of Breath Narrative Narrative: 72-year-old male here from skilled nurse facility for cute onset of shortness of breath. The patient states that approximately 9 PM he started experiencing acute chest pain or shortness of breath. States symptoms are constant, severe without alleviating factors. Per the patient's patient goes into heart failure often. Per EMS patient was satting in the 60s requiring CPAP. Upon arrival to the ED was placed on BiPAP by respiratory therapy. Patient denies any lower extremity edema. The patient denies recent surgery in the last 4 weeks or immobilization in the last 3 days, denies previous diagnosis of DVT or PE, hemoptysis, unilateral leg swelling or malignancy with treatment the last 6 months. No estrogen use noted. [facility] Medical History (Updated 10/05/22 @ 03:[address] 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 pectoris Benign prostatic hyperplasia Chronic combined systolic and diastolic CHF (congestive heart failure) COPD (chronic obstructive pulmonary disease) COPD with acute exacerbation CVA (cerebral vascular accident) Depression Diabetes Dysphagia Essential (primary) hypertension GERD (gastroesophageal reflux disease) Heart failure History of non-ST elevation myocardial infarction (NSTEMI) (02/21/19) HTN (hypertension) Hyperlipidemia Intraparenchymal hemorrhage of brain Intraventricular hemorrhage Ischemic cardiomyopathy Morbid obesity Myocardial infarct Neuromuscular dysfunction of bladder Nicotine dependence Obesity Obstructive sleep apnea Osteomyelitis of sacrum Recurrent UTI (urinary tract infection) Reflux esophagitis Restless leg syndrome Right hemiplegia RLS (restless legs syndrome) Sleep apnea Subarachnoid hemorrhage Subdural hematoma Tobacco abuse Traumatic brain injury Type 2 diabetes mellitus Home Medications amantadine HCl 100 mg capsule 100 mg PO DAILY PARKINSON 04/17/18 [History Last Taken 07/19/21] pantoprazole 40 mg tablet,delayed release 40 mg PO DAILY STOMACH 04/17/18 [History Last Taken 07/19/21] pramipexole 0.25 mg tablet 0.25 mg PO QHS PARKINSONS 04/17/18 [History Last Taken 07/18/21] pravastatin 80 mg tablet 80 mg PO QHS CHOLESTEROL 04/17/18 [History Last Taken 07/18/21] nitroglycerin 0.4 mg sublingual tablet 0.4 mg sublingual PRN PRN CHEST PAIN 02/20/19 [History Last Taken Unknown] aspirin 81 mg chewable tablet 81 mg PO DAILY@0800 heart health 02/24/19 [History Last Taken 07/19/21] insulin aspart U-100 100 unit/mL (3 mL) subcutaneous pen (Novolog FlexPen U-100 Insulin aspart) See Protocol subcut TIDCM blood sugar 09/14/19 [History Last Taken 07/19/21] sennosides 8.6 mg-docusate sodium 50 mg tablet 2 ea PO BID constipation 01/02/20 [History Last Taken 07/19/21] melatonin 3 mg disintegrating tablet 3 mg PO QHS sleep 09/14/20 [History Last Taken 07/18/21] fluticasone propionate 110 mcg/actuation HFA aerosol inhaler 1 puff inhalation BID allergies 02/17/21 [History Last Taken 07/19/21] insulin aspart U-100 100 unit/mL (3 mL) subcutaneous pen (Novolog FlexPen U-100 Insulin aspart) 15 unit subcut TIDCM blood sugar 02/17/21 [History Last Taken 07/19/21] tamsulosin 0.4 mg capsule 0.4 mg PO QHS prostate 02/17/21 [History Last Taken 07/18/21] ticagrelor 90 mg tablet (Brilinta) 90 mg PO BID heart 02/17/21 [History Last Taken 07/19/21] carvedilol 25 mg tablet 25 mg PO BID #0 tabs 02/20/21 [Rx Last Taken 07/19/21] potassium chloride 20 mEq tablet,extended release(part/cryst) 40 meq PO DAILY supplement 90 days #90 tabs 02/20/21 [Rx Last Taken 07/19/21] insulin glargine 100 unit/mL (3 mL) subcutaneous pen (Lantus Solostar U-100 Insulin) 28 unit subcut QPM DM 04/25/21 [History Last Taken 07/18/21] spironolactone 25 mg tablet 25 mg PO DAILY #30 tabs 04/29/21 [Rx Last Taken 07/19/21] aluminum-magnesium hydroxide 225 mg-200 mg/5 mL oral suspension 30 ml PO Q4H PRN GI distress 10/11/21 [History Last Taken Unknown] bisacodyl 10 mg rectal suppository 10 mg VT DAILY PRN constipaiton 10/11/21 [History Last Taken Unknown] duloxetine 60 mg capsule,delayed release 60 mg PO BID depression 10/11/21 [History Last Taken Unknown] fluoxetine 40 mg capsule 60 mg PO QPM depression 10/11/21 [History Last Taken Unknown] guaifenesin 200 mg/5 mL oral liquid 10 mg PO Q4H PRN Cough 10/11/21 [History Last Taken Unknown] magnesium hydroxide 400 mg/5 mL oral suspension (Milk of Magnesia) 30 ml PO DAILY PRN consipation 10/11/21 [History Last Taken Unknown] nystatin 100,000 unit/gram topical powder 1 applic topical DAILY PRN excoriation 10/11/21 [History Last Taken Unknown] sacubitril 49 mg-valsartan 51 mg tablet (Entresto) 1 tab PO BID #60 tabs 10/11/21 [Rx Last Taken Unknown] sodium phosphates 19 gram-7 gram/118 mL enema (Fleet Enema) 118 ml VT ONCE PRN Constipation 10/11/21 [History Last Taken Unknown] trazodone 50 mg tablet 150 mg PO QHS sleep 10/11/21 [History Last Taken Unknown] acetaminophen 500 mg tablet 650 mg PO Q4H PRN PRN Mild Pain (1-3/10) 07/27/22 [History Last Taken Unknown] cetirizine 10 mg tablet (Zyrtec) 10 mg PO DAILY sinus 07/27/22 [History Last Taken Unknown] gabapentin 300 mg capsule 300 mg PO DAILY neuropathy 07/27/22 [History Last Taken Unknown] levofloxacin 750 mg tablet 750 mg PO DAILY #9 tabs 07/28/22 [Rx Last Taken Unknown] furosemide 40 mg tablet 40 mg PO BID CHF 10/05/22 [History Last Taken Unknown] oxycodone 5 mg tablet 5 mg PO TID 10/05/22 [History Last Taken Unknown] Allergy/AdvReac Type Severity Reaction Status Date / Time atorvastatin Allergy PT UNSURE Verified 10/04/22 23:53 OF REACTION cilostazol Allergy Hives Verified 10/04/22 23:53 colestipol Allergy Hives Verified 10/04/22 23:53 diltiazem Allergy Hives Verified 10/04/22 23:53 gemfibrozil Allergy Hives Verified 10/04/22 23:53 naproxen [From Naprosyn] Allergy Hives Verified 10/04/22 23:53 niacin Allergy PT UNSURE Verified 10/04/22 23:53 OF REACTION Nitrate Analogues Allergy Hives Verified 10/04/22 23:53 Penicillins Allergy Hives Verified 10/04/22 23:53 pravastatin Allergy NEEDS Verified 10/04/22 23:53 FOLLOW-UP procainamide Allergy Hives Verified 10/04/22 23:53 procaine Allergy NEEDS Verified 10/04/22 23:53 FOLLOW-UP rosuvastatin Allergy Hives Verified 10/04/22 23:53 simvastatin Allergy Hives Verified 10/04/22 23:53 isosorbide AdvReac Severe Unknown Verified 10/04/22 23:53 Family History Brother Heart disease Father Heart disease Alzheimer disease Mother No history of heart disease Surgical History Chronic suprapubic catheter H/O coronary angioplasty H/O coronary artery bypass surgery (2001) History of coronary artery stent placement (09/18/20) History of left heart catheterization (04/29/21) PEG (percutaneous endoscopic gastrostomy) adjustment/replacement/removal Status post ileostomy Status post osteotomy (01/2018) Social History housing: [facility] Smoking Status: Current every day smoker tobacco type: cigarettes second hand exposure: Yes alcohol intake: former substance use type: does not use caffeine: Yes Type: coffee Number of servings: 3 what type of physical activity do you participate in: none ROS ROS ED ROS Narrative Constitutional: Denies fever HEENT: Denies sore throat Neck: Denies neck pain Cardiovascular: Endorses chest pain Respiratory: Endorses shortness of breath GI: Denies nausea vomiting or abdominal pain : Denies changes in urinary habits Musculoskeletal: Denies muscle or joint pain Neurologic: Denies numbness weakness or loss of sensation Skin denies rash EXAM Physical Exam Narrative Exam Narrative: Nursing triage notes reviewed, Vital signs reviewed Constitutional: please see mdm HENT: MMM Eyes: Pupils equal round and reactive to light, Extraocular muscles intact Neck: No stridor, no JVD, full neck ROM Lungs: Acute respiratory distress, tachypneic, conversational dyspnea, accessory muscle use, belly breathing, diffuse rales noted in bilateral bases Heart: Fast, regular rate no murmurs, No rubs and No gallops, 2+ distal pulses (radial, femoral, posterior tibial) in all extremities Abdomen: Soft, there is no tenderness, rigidity, rebound or guarding, no obvious peritoneal signs, no palpable pulsatile abdominal masses, no auscultated abdominal bruit : No CVAT Extremities: Trace edema in bilateral lower extremities Neuro: No focal neurological deficits, cranial nerves II through XII intact, 5/5 strength in all extremities. Intact sensation to light touch in all extremities, 2+ reflexes bilateral patella dens. Normal gait. No ataxia. Skin: No rash or lesions noted Const Vital Signs: 10/04/22 22:35 10/04/22 22:38 10/04/22 22:44 Temperature 99.4 F H Temperature Source Temporal Pulse Rate 137 H 137 H Respiratory Rate 41 H 36 H Respiratory Effort Short of Breath Accessory Muscle Use Respiratory Depth Shallow Respiratory Pattern Tachypnea Blood Pressure 184/102 H Blood Pressure Mean 129 Pulse Ox 69 96 Oxygen Delivery Method Room Air Room Air Bi-pap Fraction of Inspired Oxygen (FIO2) 45 10/04/22 22:52 10/04/22 22:51 10/04/22 22:58 Temperature Temperature Source Pulse Rate 137 H 135 H Respiratory Rate Respiratory Effort Respiratory Depth Respiratory Pattern Blood Pressure 182/125 H 179/86 H Blood Pressure Mean Pulse Ox 97 Oxygen Delivery Method Bi-pap Fraction of Inspired Oxygen (FIO2) 10/04/22 22:58 10/04/22 23:13 10/04/22 23:08 Temperature Temperature Source Pulse Rate 137 H 130 H 139 H Respiratory Rate 42 H 49 H Respiratory Effort Respiratory Depth Respiratory Pattern Blood Pressure 157/98 H Blood Pressure Mean Pulse Ox 94 97 Oxygen Delivery Method Fraction of Inspired Oxygen (FIO2) 45 45 10/04/22 23:26 10/04/22 23:51 10/05/22 00:00 Temperature Temperature Source Pulse Rate 125 H 116 H 111 H Respiratory Rate 30 H 40 H 34 H Respiratory Effort Respiratory Depth Respiratory Pattern Blood Pressure 119/84 H 103/52 L Blood Pressure Mean 95 69 Pulse Ox 96 97 97 Oxygen Delivery Method Bi-pap Bi-pap Fraction of Inspired Oxygen (FIO2) 40 10/04/22 23:38 10/05/22 01:00 10/05/22 00:53 Temperature 97.5 F L Temperature Source Temporal Pulse Rate 111 H Respiratory Rate 31 H 40 H Respiratory Effort Respiratory Depth Respiratory Pattern Blood Pressure 103/52 L Blood Pressure Mean 69 Pulse Ox 97 93 Oxygen Delivery Method Bi-pap Bi-pap Fraction of Inspired Oxygen (FIO2) 50 10/05/22 01:10 10/05/22 00:00 10/05/22 01:00 Temperature 97.6 F L 97.6 F L Temperature Source Temporal Temporal Pulse Rate 118 H 112 H 111 H Respiratory Rate 42 H 34 H 33 H Respiratory Effort Respiratory Depth Respiratory Pattern Blood Pressure 98/48 L 97/70 Blood Pressure Mean 64 79 Pulse Ox 94 96 96 Oxygen Delivery Method Bi-pap Bi-pap Fraction of Inspired Oxygen (FIO2) 50 10/05/22 02:00 10/05/22 02:00 10/05/22 02:30 Temperature 97.5 F L Temperature Source Temporal Pulse Rate 93 93 94 Respiratory Rate 35 H 39 H Respiratory Effort Respiratory Depth Respiratory Pattern Blood Pressure 141/97 H Blood Pressure Mean 111 Pulse Ox 98 99 Oxygen Delivery Method Bi-pap Fraction of Inspired Oxygen (FIO2) 35 10/05/22 03:00 10/05/22 03:00 10/05/22 03:00 Temperature 97.6 F L 97.6 F L Temperature Source Temporal Temporal Pulse Rate 91 92 Respiratory Rate 33 H 33 H Respiratory Effort Respiratory Depth Respiratory Pattern Blood Pressure 117/77 117/77 Blood Pressure Mean 90 90 Pulse Ox 99 99 99 Oxygen Delivery Method Bi-pap Bi-pap Bi-pap Fraction of Inspired Oxygen (FIO2) MDM MDM MDM Narrative Medical decision making narrative: Chief Complaint: Chest pain, shortness of breath External records reviewed: Last echocardiogram from July 2022 shows ejection fraction 45% MDM: Patient was initially tachycardic, tachypneic experiencing acute respiratory failure placed on BiPAP immediately I considered the following differential diagnosis: CHF exacerbation, COPD exacerbation, PE, ACS, arrhythmia, pneumonia, COVID, anemia I obtained a broad lab and imaging work-up to further elucidate etiology patient complaints. Blood cultures, lactate were drawn given the patient's multiple SIRS criteria. I started the patient on sublingual nitroglycerin with concern for pulmonary edema secondary to hypertension in addition to continuing BiPAP. I ordered an ABG which showed evidence of respiratory acidosis that is acute concerning for obstructive lung etiology. After 3 sublingual nitroglycerin tabs patient's blood pressure improved to 144 systolic, he noted he felt clinically better. At this point I will hold off on any antihypertensives until additional labs and images are resulted labs images were remarkable for signs of systemic inflammation, mild anemia. In addition the patient's lactate was elevated at 3.1. I gave the patient gentle fluid resuscitation 500 cc initially given concern for heart failure. I did not give the patient a 30 cc/kg bolus secondary to concern for volume overload given history of heart failure with ejection fraction 45%. We will repeat lactate after 500 cc fluid bolus. CBC along with chest x-ray findings are concerning for pneumonia. Given concern for pneumonia, leukocytosis and respiratory failure I gave the patient antimicrobial therapy with ceftriaxone and azithromycin. Patient's BMP with hyperkalemia was treated with 5 units of IV insulin. Troponin was negative for signs of myocardial ischemia. COVID, flu were also negative. I obtained a CT of the chest rule out PE and to further characterize the patient had evidence of pulmonary edema or pneumonia. CTA showed no evidence of PE showed evidence of inflammation. Patient's presentation is likely precipitated by pneumonia. He will remain on BiPAP and will need ICU care. Will discuss with hospitalist. [facility] critical care physician at 0105 AM Patient was reevaluated at 1:05 AM. Patient noted chest pain, feeling anxious. EKG was repeated at this time. Repeat EKG shows sinus tachycardia, normal axis, normal intervals, no obvious STEMI. Delta troponin uptrending concerning for ongoing myocardial ischemia likely secondary to hypoxia rather than occlusive myocardial infarction. In other words the patient is likely suffering from a demand ischemia given no STEMI on EKG. The patient states he felt anxious. Asked RT to decrease his BiPAP settings of 12/6. Gave a small dose of IV Ativan 0.5 mg given patient's complaint of anxiety. Given 500 cc bolus given blood pressure downtrending with a MAP of 73. We will continue to assess patient. [facility] hospitalist at 0124 Repaged hospitalist at 0144 Spoke to hospitalist [phone] awaiting disposition decision. Spoke with hospitalist at 0230. Awaiting critical care and final disposition decision. Hospitalist recommended PCU stepdown at 0245 Factors affecting care: History of CHF, COPD, obesity, hyperlipidemia, hypertension Social determinants of health: Current everyday smoker History obtained from others: EMS, patient's Shared decision making: I will have a discussion with the patient and or visitors regarding risk/benefits of further testing or admission. They will be made aware of of the risk/benefits inherent in this decision they will be given the opportunity to voice understanding. Consults: Internal medicine, critical care Goals of care discussion: Patient and agree he would like to be DNR CCA he does not want to be intubated or be on a ventilator machine. Lab Data Attestation: I reviewed the patient's lab results. Lab results narrative: EKG with sinus tachycardia possibly multifocal atrial tachycardia, occasional PVCs, prolonged QT, no obvious STEMI, CBC with leukocytosis suggestive of systemic inflammation, mild anemia, no thrombocytopenia ABG with evidence of respiratory acidosis, pH 7.2, CO2 50 BMP with mild hyponatremia, hyperkalemia, no anion gap to suggest endorgan hypoperfusion, EMANUEL noted Troponin is negative, no evidence of myocardial ischemia BNP elevated consistent with volume overload Labs: Laboratory Results - last 24 hr 10/04/22 10/04/22 10/04/22 22:38 22:38 22:38 WBC 12.1 H RBC 4.17 L Hgb 12.3 L Hct 40.3 MCV 96.6 H MCH 29.5 MCHC 30.5 L RDW Std Deviation 51.2 H RDW Coeff of Sherin 14.5 Plt Count 241 MPV 12.6 H Immature Gran % (Auto) 2.400 H Neut % (Auto) 71.3 H Lymph % (Auto) 14.7 L Wallace % (Auto) 8.5 Eos % (Auto) 2.2 Baso % (Auto) 0.9 Absolute Neuts (auto) 8.6 H Absolute Lymphs (auto) 1.78 Nucleated RBC % 0 Sodium 134 L Potassium 5.3 H Chloride 101 Carbon Dioxide 24.0 Anion Gap 9 BUN 37 H Creatinine 1.51 H Estim Creat Clear Calc 51.41 Est GFR (MDRD) Af Amer 59 L Est GFR (MDRD) Non-Af 49 L BUN/Creatinine Ratio 24.5 H Glucose 369 H Lactic Acid 3.1 H* Calcium 9.2 Troponin I High Sens 18 B-Natriuretic Peptide POC Glucose 10/04/22 10/05/22 10/05/22 22:38 01:01 01:10 WBC RBC Hgb Hct MCV MCH MCHC RDW Std Deviation RDW Coeff of Sherin Plt Count MPV Immature Gran % (Auto) Neut % (Auto) Lymph % (Auto) Wallace % (Auto) Eos % (Auto) Baso % (Auto) Absolute Neuts (auto) Absolute Lymphs (auto) Nucleated RBC % Sodium Potassium Chloride Carbon Dioxide Anion Gap BUN Creatinine Estim Creat Clear Calc Est GFR (MDRD) Af Amer Est GFR (MDRD) Non-Af BUN/Creatinine Ratio Glucose Lactic Acid Calcium Troponin I High Sens 83 H B-Natriuretic Peptide 221.4 H POC Glucose 328 H ABG Data ABG results: ABG 10/04/22 22:58 Specimen Type ART Sample Site R Radial pH 7.30 L Bicarbonate Actual 24.5 Total CO2 26 Base Excess -2 O2 Saturation 97 O2 % 45 ABG pCO2 50.2 H ABG pO2 96 Dejon Test Positive O2 Delivery Device BiPAP Tidal Volume 450 POC PEEP 10 Clinical Comments Radiography Chest X-Ray - ED: Read by ED Physician Diagnostic Testing: Clinical Impression(s) from Imaging Studies Chest X-Ray 10/04/22 22:55 IMPRESSION: Patchy bibasilar airspace disease. Findings may indicate pneumonia. Electronically Signed: Andrae Wallace MD at 23:30 EDT , Chest CTA 10/04/22 23:25 IMPRESSION: 1. No filling defects identified to suggest pulmonary embolism, but small segmental pulmonary emboli are not excluded due to artifact caused by patient respiratory motion. 2. Mild bibasilar airspace disease and small pleural effusions. Findings may indicate atelectasis or infection. Electronically Signed: Andrae Wallace MD at 0:25 EDT , Chest x-ray interpreted by myself shows evidence of bilateral pulmonary edema and concern for right lower lobe infiltrate Critical Care Time Critical Care Time: Yes Critical care time (excluding procedures): 30-74 minutes Discharge Plan Dx/Rx/DC Orders Clinical Impression: Acute hypoxemic respiratory failure, Acute hyperkalemia, Acute non-ST elevation myocardial infarction (NSTEMI) Disposition Disposition: Acute Care Hospital [facility]
[2022-10-04] MEDS: Nitroglycerin SL (ED/IMG/CATH) 0.4 MG TABLET SL ×3 (22:51→23:13)
--- NOTE | 2022-10-04 22:55 | RAD_ITS ---
EXAM: XR CHEST, 1 VIEW CLINICAL INDICATION: chest pain TECHNIQUE: Frontal view of the chest. COMPARISON: 08/11/2022 FINDINGS: LUNGS AND PLEURAL SPACES: Patchy bibasilar airspace disease. No pneumothorax. No effusion. HEART: Unremarkable. Cardiac silhouette not enlarged. MEDIASTINUM: Surgical changes of the mediastinum. BONES/JOINTS: Unremarkable. SOFT TISSUES: Unremarkable. RAD/Chest 1 View (Portable) IMPRESSION: Patchy bibasilar airspace disease. Findings may indicate pneumonia. Electronically Signed: Andrae Wallace MD at 23:30 EDT ,
[2022-10-04] MEDS: Aspirin 81 MG TAB.CHEW 324 MG PO (23:00)
[2022-10-04 23:05] LABS: Allen Test Positive; Base Excess -2 mmol/L (-2 to +2); Bicarbonate 24.5 mmol/L (22-26); Blood Gas Specimen Type ART; FI02 45; O2 Delivery Device BiPAP; PEEP 10; PO2 96 mmHG (75-100); SITE R Radial; SO2 97 % (95-99); Total Carbon Dioxide 26 mmol/L; Vt 450; pCO2 50.2 mmHg (35-45)
[2022-10-04 23:10] LABS: Absolute Lymphocyte Count 1.78 X10^3/uL (0.83-4.51); Absolute Neutrophil Count 8.6 X10^3/uL (2.0-7.7); Basophil# 0.11 X10^3/uL; Basophil% 0.9 % (0-1); Eosinophil# 0.27 X10^3/uL; Eosinophils% 2.2 % (0-5); Hematocrit 40.3 % (40-54); Hemoglobin 12.3 g/dL (13.0-16.5); Lymphocyte # 1.78 X10^3/ul (0.83-4.51); Lymphocyte % 14.7 % (19-41); Mean Corp Hgb Conc 30.5 g/dL (32-36); Mean Corpuscular Hgb 29.5 pg (27.0-32.0); Mean Corpuscular Volume 96.6 fL (80-94); Mean Platelet Vol. 12.6 fl (6.2-12.0); Monocyte# 1.02 X10^3/uL; Monocyte% 8.5 % (0-10); NRBC Flagged by Analyzer 0 % (0-5); Neutrophil % 71.3 % (47-70); Platelet Count 241 K/mm3 (150-450); RBC Distribution Width CV 14.5 % (11.6-14.6); RBC Distribution Width SD 51.2 fl (35.1-43.9); Red Blood Count 4.17 M/mm3 (4.6-6.2); White Blood Count 12.1 K/mm3 (4.4-11.0)
[2022-10-04 23:24] LABS: Anion Gap 9 (5-15); BUN 37 mg/dL (7-18); BUN/Creat Ratio 24.5 RATIO (10-20); Calcium,Total 9.2 mg/dL (8.5-10.1); Chloride 101 mmol/L (98-107); Creatinine, Serum 1.51 mg/dL (0.70-1.30); EST Glomerular Filtration Rate 49 mL/min (>60); Est Glom Filt Rate - Afr Amer 59 mL/min (>60); Estimated Creatinine Clearance 51.41 ml/min; Glucose 369 mg/dL (74-106); Potassium 5.3 mmol/L (3.5-5.1); Sodium Level 134 mmol/L (136-145); Troponin-I HS (w/2H Reflex) 18 pg/mL (3.0-78.0)
--- NOTE | 2022-10-04 23:25 | CT_ITS ---
EXAM: CT ANGIOGRAPHY CHEST WITHOUT AND WITH INTRAVENOUS CONTRAST CLINICAL INDICATION: hypoxia, r/o PE TECHNIQUE: Helically acquired angiography images were obtained of the chest without and with intravenous contrast. This CT exam was performed using one or more of the following dose reduction techniques: automated exposure control, adjustment of the mA and/or kV according to patient size, and/or use of iterative reconstruction technique. MIP reconstructed images were created and reviewed. CONTRAST: IV 100mL [id number] COMPARISON: 02/17/2021 FINDINGS: PULMONARY ARTERIES: Unremarkable. Normal in caliber. No filling defects identified to suggest pulmonary embolism, but small segmental pulmonary emboli are not excluded due to artifact caused by patient respiratory motion. AORTA: Moderate atherosclerotic changes of the thoracic aorta without aneurysm or dissection. GREAT VESSELS OF AORTIC ARCH: Unremarkable. Normal in caliber. No evidence of dissection. LUNGS AND PLEURAL SPACES: Mild bibasilar airspace disease and small pleural effusions. No mass. HEART: Mild cardiomegaly. Coronary artery calcifications. No pericardial effusion. MEDIASTINUM: Surgical changes of the mediastinum. No mediastinal or hilar adenopathy. Esophagus is unremarkable. No hiatal hernia. THYROID: Unremarkable. No thyroid lesions. BONES/JOINTS: Degenerative changes of the spine. No suspicious lytic or blastic abnormality. CT/CTA Chest W/WO Contrast IMPRESSION: 1. No filling defects identified to suggest pulmonary embolism, but small segmental pulmonary emboli are not excluded due to artifact caused by patient respiratory motion. 2. Mild bibasilar airspace disease and small pleural effusions. Findings may indicate atelectasis or infection. Electronically Signed: Andrae Wallace MD at 0:25 EDT ,
--- NOTE | 2022-10-04 23:52 | CPS ---
pt back from [facility]scan -o2 decreased to 40%
[2022-10-05] VITALS (26 sets, daily range): BP systolic 97–179; BP diastolic 38–117; PULSE 89–123; RESP 12–43; TEMP 36.2–36.7; O2SAT 90–100; BMI 42.1
[2022-10-05 00:06] LABS: Lactic Acid 3.1 mmol/L (0.4-1.9)
[2022-10-05] MEDS: Ceftriaxone 1 GM/50 ML BAG IV (00:11)
--- NOTE | 2022-10-05 00:54 | CPS ---
o2 increased to 50% for low sats
[2022-10-05 00:55] LABS: Reflex Troponin-HS? (from REC) Y
[2022-10-05] MEDS: LORazepam 2 MG/ML Syringe 0.5 MG IV (01:14)
[2022-10-05] MEDS: Ondansetron 4 MG/2 ML Vial IV (01:17)
[2022-10-05 01:21] LABS: Bedside Glucose 328 mg/dL (74-106)
[2022-10-05 01:48] LABS: Troponin-I HS 83 pg/mL (3.0-78.0)
[2022-10-05 02:26] LABS: BNP,B-Type NATRIURETIC PEPTIDE 221.4 pg/mL (0-100)
--- NOTE | 2022-10-05 02:31 | PCM.HP.STD ---
HPI - General General Date of Admission: 10/05/22 Date of Service: 10/05/22 Chief Complaint: Shortness of breath HPI Narrative FABY GARCIA, is a 72 M with a significant history of heart failure with preserved ejection fraction; CAD status post CABG and stents; CVA; and traumatic brain injury who lives [place] a [place] [facility] presenting to the emergency department with shortness of breath that started about an hour and a half before presentation. History was taken from patient's and from emergency department doctor. Patient was on BiPAP at the time of history taking and was not contributing to history. [facility] Medical History Acute on chronic systolic (congestive) heart failure Acute pulmonary edema (09/14/20) Acute respiratory failure with hypoxia (09/14/20) Acute respiratory failure with hypoxia and hypercapnia Alcohol abuse Allergic rhinitis Anemia Anxiety Atherosclerosis Atherosclerosis of coronary artery bypass graft without angina pectoris Benign prostatic hyperplasia Chronic combined systolic and diastolic CHF (congestive heart failure) COPD (chronic obstructive pulmonary disease) COPD with acute exacerbation CVA (cerebral vascular accident) Depression Diabetes Dysphagia Essential (primary) hypertension GERD (gastroesophageal reflux disease) Heart failure History of non-ST elevation myocardial infarction (NSTEMI) (02/21/19) HTN (hypertension) Hyperlipidemia Intraparenchymal hemorrhage of brain Intraventricular hemorrhage Ischemic cardiomyopathy Morbid obesity Myocardial infarct Neuromuscular dysfunction of bladder Nicotine dependence Obesity Obstructive sleep apnea Osteomyelitis of sacrum Recurrent UTI (urinary tract infection) Reflux esophagitis Restless leg syndrome Right hemiplegia RLS (restless legs syndrome) Sleep apnea Subarachnoid hemorrhage Subdural hematoma Tobacco abuse Traumatic brain injury Type 2 diabetes mellitus Home Medications amantadine HCl 100 mg capsule 100 mg PO DAILY PARKINSON 04/17/18 [History Last Taken 07/19/21] pantoprazole 40 mg tablet,delayed release 40 mg PO DAILY STOMACH 04/17/18 [History Last Taken 07/19/21] pramipexole 0.25 mg tablet 0.25 mg PO QHS PARKINSONS 04/17/18 [History Last Taken 07/18/21] pravastatin 80 mg tablet 80 mg PO QHS CHOLESTEROL 04/17/18 [History Last Taken 07/18/21] nitroglycerin 0.4 mg sublingual tablet 0.4 mg sublingual PRN PRN CHEST PAIN 02/20/19 [History Last Taken Unknown] aspirin 81 mg chewable tablet 81 mg PO DAILY@0800 heart health 02/24/19 [History Last Taken 07/19/21] insulin aspart U-100 100 unit/mL (3 mL) subcutaneous pen (Novolog FlexPen U-100 Insulin aspart) See Protocol subcut TIDCM blood sugar 09/14/19 [History Last Taken 07/19/21] sennosides 8.6 mg-docusate sodium 50 mg tablet 2 ea PO BID constipation 01/02/20 [History Last Taken 07/19/21] melatonin 3 mg disintegrating tablet 3 mg PO QHS sleep 09/14/20 [History Last Taken 07/18/21] fluticasone propionate 110 mcg/actuation HFA aerosol inhaler 1 puff inhalation BID allergies 02/17/21 [History Last Taken 07/19/21] insulin aspart U-100 100 unit/mL (3 mL) subcutaneous pen (Novolog FlexPen U-100 Insulin aspart) 15 unit subcut TIDCM blood sugar 02/17/21 [History Last Taken 07/19/21] tamsulosin 0.4 mg capsule 0.4 mg PO QHS prostate 02/17/21 [History Last Taken 07/18/21] ticagrelor 90 mg tablet (Brilinta) 90 mg PO BID heart 02/17/21 [History Last Taken 07/19/21] carvedilol 25 mg tablet 25 mg PO BID #0 tabs 02/20/21 [Rx Last Taken 07/19/21] potassium chloride 20 mEq tablet,extended release(part/cryst) 40 meq PO DAILY supplement 90 days #90 tabs 02/20/21 [Rx Last Taken 07/19/21] insulin glargine 100 unit/mL (3 mL) subcutaneous pen (Lantus Solostar U-100 Insulin) 28 unit subcut QPM DM 04/25/21 [History Last Taken 07/18/21] spironolactone 25 mg tablet 25 mg PO DAILY #30 tabs 04/29/21 [Rx Last Taken 07/19/21] aluminum-magnesium hydroxide 225 mg-200 mg/5 mL oral suspension 30 ml PO Q4H PRN GI distress 10/11/21 [History Last Taken Unknown] bisacodyl 10 mg rectal suppository 10 mg OK DAILY PRN constipaiton 10/11/21 [History Last Taken Unknown] duloxetine 60 mg capsule,delayed release 60 mg PO BID depression 10/11/21 [History Last Taken Unknown] fluoxetine 40 mg capsule 60 mg PO QPM depression 10/11/21 [History Last Taken Unknown] guaifenesin 200 mg/5 mL oral liquid 10 mg PO Q4H PRN Cough 10/11/21 [History Last Taken Unknown] magnesium hydroxide 400 mg/5 mL oral suspension (Milk of Magnesia) 30 ml PO DAILY PRN consipation 10/11/21 [History Last Taken Unknown] nystatin 100,000 unit/gram topical powder 1 applic topical DAILY PRN excoriation 10/11/21 [History Last Taken Unknown] sacubitril 49 mg-valsartan 51 mg tablet (Entresto) 1 tab PO BID #60 tabs 10/11/21 [Rx Last Taken Unknown] sodium phosphates 19 gram-7 gram/118 mL enema (Fleet Enema) 118 ml OK ONCE PRN Constipation 10/11/21 [History Last Taken Unknown] trazodone 50 mg tablet 150 mg PO QHS sleep 10/11/21 [History Last Taken Unknown] acetaminophen 500 mg tablet 650 mg PO Q4H PRN PRN Mild Pain (1-3/10) 07/27/22 [History Last Taken Unknown] cetirizine 10 mg tablet (Zyrtec) 10 mg PO DAILY sinus 07/27/22 [History Last Taken Unknown] gabapentin 300 mg capsule 300 mg PO DAILY neuropathy 07/27/22 [History Last Taken Unknown] levofloxacin 750 mg tablet 750 mg PO DAILY #9 tabs 07/28/22 [Rx Last Taken Unknown] furosemide 40 mg tablet 40 mg PO BID CHF 10/05/22 [History Last Taken Unknown] oxycodone 5 mg tablet 5 mg PO TID 10/05/22 [History Last Taken Unknown] Allergy/AdvReac Type Severity Reaction Status Date / Time atorvastatin Allergy PT UNSURE Verified 10/04/22 23:53 OF REACTION cilostazol Allergy Hives Verified 10/04/22 23:53 colestipol Allergy Hives Verified 10/04/22 23:53 diltiazem Allergy Hives Verified 10/04/22 23:53 gemfibrozil Allergy Hives Verified 10/04/22 23:53 naproxen [From Naprosyn] Allergy Hives Verified 10/04/22 23:53 niacin Allergy PT UNSURE Verified 10/04/22 23:53 OF REACTION Nitrate Analogues Allergy Hives Verified 10/04/22 23:53 Penicillins Allergy Hives Verified 10/04/22 23:53 pravastatin Allergy NEEDS Verified 10/04/22 23:53 FOLLOW-UP procainamide Allergy Hives Verified 10/04/22 23:53 procaine Allergy NEEDS Verified 10/04/22 23:53 FOLLOW-UP rosuvastatin Allergy Hives Verified 10/04/22 23:53 simvastatin Allergy Hives Verified 10/04/22 23:53 isosorbide AdvReac Severe Unknown Verified 10/04/22 23:53 Family History Brother Heart disease Father Heart disease Alzheimer disease Mother No history of heart disease Surgical History Chronic suprapubic catheter H/O coronary angioplasty H/O coronary artery bypass surgery (2001) History of coronary artery stent placement (09/18/20) History of left heart catheterization (04/29/21) PEG (percutaneous endoscopic gastrostomy) adjustment/replacement/removal Status post ileostomy Status post osteotomy (01/2018) Social History [facility] [facility] Smoking Status: Current every day smoker tobacco type: cigarettes second hand exposure: Yes alcohol intake: former substance use type: does not use caffeine: Yes Type: coffee Number of servings: 3 what type of physical activity do you participate in: none ROS Review of Systems ROS Unobtainable: other Details: Due to patient being on BiPAP and also due to patient's acute encephalopathy Vital Signs Vital Signs Vital Signs: 10/04/22 22:35 10/04/22 22:38 10/04/22 22:44 Temperature 99.4 F H Temperature Source Temporal Pulse Rate 137 H 137 H Respiratory Rate 41 H 36 H Respiratory Effort Short of Breath Accessory Muscle Use Respiratory Depth Shallow Respiratory Pattern Tachypnea Blood Pressure 184/102 H Blood Pressure Mean 129 Pulse Ox 69 96 Oxygen Delivery Method Room Air Room Air Bi-pap Fraction of Inspired Oxygen (FIO2) 45 10/04/22 22:52 10/04/22 22:51 10/04/22 22:58 Temperature Temperature Source Pulse Rate 137 H 135 H Respiratory Rate Respiratory Effort Respiratory Depth Respiratory Pattern Blood Pressure 182/125 H 179/86 H Blood Pressure Mean Pulse Ox 97 Oxygen Delivery Method Bi-pap Fraction of Inspired Oxygen (FIO2) 10/04/22 22:58 10/04/22 23:13 10/04/22 23:08 Temperature Temperature Source Pulse Rate 137 H 130 H 139 H Respiratory Rate 42 H 49 H Respiratory Effort Respiratory Depth Respiratory Pattern Blood Pressure 157/98 H Blood Pressure Mean Pulse Ox 94 97 Oxygen Delivery Method Fraction of Inspired Oxygen (FIO2) 45 45 10/04/22 23:26 10/04/22 23:51 10/05/22 00:00 Temperature Temperature Source Pulse Rate 125 H 116 H 111 H Respiratory Rate 30 H 40 H 34 H Respiratory Effort Respiratory Depth Respiratory Pattern Blood Pressure 119/84 H 103/52 L Blood Pressure Mean 95 69 Pulse Ox 96 97 97 Oxygen Delivery Method Bi-pap Bi-pap Fraction of Inspired Oxygen (FIO2) 40 10/04/22 23:38 10/05/22 01:00 10/05/22 00:53 Temperature 97.5 F L Temperature Source Temporal Pulse Rate 111 H Respiratory Rate 31 H 40 H Respiratory Effort Respiratory Depth Respiratory Pattern Blood Pressure 103/52 L Blood Pressure Mean 69 Pulse Ox 97 93 Oxygen Delivery Method Bi-pap Bi-pap Fraction of Inspired Oxygen (FIO2) 50 10/05/22 01:10 10/05/22 00:00 10/05/22 01:00 Temperature 97.6 F L 97.6 F L Temperature Source Temporal Temporal Pulse Rate 118 H 112 H 111 H Respiratory Rate 42 H 34 H 33 H Respiratory Effort Respiratory Depth Respiratory Pattern Blood Pressure 98/48 L 97/70 Blood Pressure Mean 64 79 Pulse Ox 94 96 96 Oxygen Delivery Method Bi-pap Bi-pap Fraction of Inspired Oxygen (FIO2) 50 10/05/22 02:00 10/05/22 02:00 Temperature 97.5 F L Temperature Source Temporal Pulse Rate 93 93 Respiratory Rate 35 H Respiratory Effort Respiratory Depth Respiratory Pattern Blood Pressure 141/97 H Blood Pressure Mean 111 Pulse Ox 98 Oxygen Delivery Method Bi-pap Fraction of Inspired Oxygen (FIO2) Weight Weight: 158.1 kg Body Mass Index (BMI) 44.7 Physical Exam Narrative Physical exam: General: Well-nourished, well-developed. Head: Normocephalic, atraumatic, no tenderness Eyes: Vision is grossly intact. EOMI ENT, no trauma, moist mucous membranes, no rhinorrhea Neck: Nontender, No thyromegaly. CVS: Regular rate and rhythm. S1-S2 present. No murmur, gallop or rub. Respiratory : On BiPAP. Tachypnea. Coarse, wheezing, chest wall nontender Abdomen: Colostomy present. Soft, nontender, nondistended, normal bowel sounds. : Suprapubic catheter present Back: Nontender, no CVA tenderness, no midline spinal tenderness, deformities, step-offs Extremities: Strength in all extremities 5 out of 5. Strength in right lower extremity 4 out of 5. Skin: Normal color, no trauma, abrasions Neuro: Somnolent, follow commands Psychiatry: Normal mood. Normal affect. Results Lab / Micro Data Result Diagrams: 10/04/22 22:38 10/04/22 22:38 Labs: Laboratory Results - last 24 hr 10/04/22 22:38: WBC 12.1 H, RBC 4.17 L, Hgb 12.3 L, Hct 40.3, MCV 96.6 H, MCH 29.5, MCHC 30.5 L, RDW Std Deviation 51.2 H, RDW Coeff of Sherin 14.5, Plt Count 241, MPV 12.6 H, Immature Gran % (Auto) 2.400 H, Neut % (Auto) 71.3 H, Lymph % (Auto) 14.7 L, [place] % (Auto) 8.5, Eos % (Auto) 2.2, Baso % (Auto) 0.9, Absolute Neuts (auto) 8.6 H, Absolute Lymphs (auto) 1.78, Nucleated RBC % 0 10/04/22 22:38: Sodium 134 L, Potassium 5.3 H, Chloride 101, Carbon Dioxide 24.0, Anion Gap 9, BUN 37 H, Creatinine 1.51 H, Estim Creat Clear Calc 51.41, Est GFR (MDRD) Af Amer 59 L, Est GFR (MDRD) Non-Af 49 L, BUN/Creatinine Ratio 24.5 H, Glucose 369 H, Calcium 9.2, Troponin I High Sens 18 10/04/22 22:38: Lactic Acid 3.1 H* 10/04/22 22:38: B-Natriuretic Peptide 221.4 H 10/05/22 01:01: POC Glucose 328 H 10/05/22 01:10: Troponin I High Sens 83 H Micro: Microbiology 10/04/22 23:01 Nasal Secretion SARS-CoV-2 & FLU Antigen (Rapid) - Final ABG Data ABG results: ABG 10/04/22 22:58 Specimen Type ART Sample Site R Radial pH 7.30 L Bicarbonate Actual 24.5 Total CO2 26 Base Excess -2 O2 Saturation 97 O2 % 45 ABG pCO2 50.2 H ABG pO2 96 Dejon Test Positive O2 Delivery Device BiPAP Tidal Volume 450 POC PEEP 10 Clinical Comments Radiology Impression Chest X-Ray 10/04/22 22:55 IMPRESSION: Patchy bibasilar airspace disease. Findings may indicate pneumonia. Electronically Signed: Andrae Wallace MD at 23:30 EDT Reading Location ID and State: [facility] / [place] Tel , Service support , Chest CTA 10/04/22 23:25 IMPRESSION: 1. No filling defects identified to suggest pulmonary embolism, but small segmental pulmonary emboli are not excluded due to artifact caused by patient respiratory motion. 2. Mild bibasilar airspace disease and small pleural effusions. Findings may indicate atelectasis or infection. Electronically Signed: Andrae Wallace MD at 0:25 EDT , Assessment & Plan Assessment/Plan (1) Acute respiratory failure with hypoxia: (2) Sepsis: PLAN: Plan Acute hypoxemic respiratory failure Impression of chest x-ray by radiology: Patchy bibasilar airspace disease.? Findings may indicate pneumonia. Hospitalist independent interpretation of chest x-ray: Patchy bibasilar airspace disease. Previous chest x-rays was also reviewed, unchanged. Scheduled DuoNeb Albuterol as needed Solu-Medrol IV ordered. Received azithromycin and ceftriaxone at the emergency department. BiPAP ordered at the emergency department; continued. Monitor BMP and CBC Sepsis/pneumonia The patient presented with sepsis due to (pneumonia) with acute sepsis related organ dysfunction as evidenced by (respiratory failure requiring BiPAP lactic acidosis). Of note his lactic acidosis could also be secondary to hypoxemia. SIRS criteria: Respiratory rate more than 20 Heart rate more than 90 WBC more than 12,000 organ dysfunction: Acute respiratory failure requiring BiPAP and with reported oxygen saturation of 60% outpatient BiPAP. Lactate more than 2 mmol/L. Trend lactic acid Blood culture x2 ordered. Follow. SARS-CoV-2 and flu antigen ordered EMANUEL on CKD stage II Creatinine on presentation was 1.51. Baseline creatinine of 1.10. Trend. Home diuretics held. Elevated troponin Initial troponin was 18. Repeat 83. Likely secondary to demand ischemia Chronic heart failure with improved reduced ejection BNP on presentation was 221.4. Unlikely acute. Echocardiogram on 07/27/2022 showed left ventricle ejection fraction of 45%. Stage I diastolic function. Mild global hypokinesis of the left ventricle. Echocardiogram on 04/26/2021 showed EF of 25 to 30%. Guideline-directed medical therapy continued. Hypertension On presentation blood pressure is normal to soft. Home blood pressure medication. Trend blood pressure and adjust blood pressure medications. Diabetes mellitus Hemoglobin A1c on 10/16/2021 was 9.4. Patient with hyperglycemia on presentation Basal insulin ordered. Monitor Accu-Cheks Correction scale insulin ordered. DVT prophylaxis subcutaneous Lovenox ordered. Charges/Coding Visit Charges Inpatient E&M: 71575 Init Hosp L3
[2022-10-05 03:23] LABS: Reflex Lactate? Y
[2022-10-05] MEDS: Methylprednisolone Sod Succ 40 MG/ML VIAL IV ×3 (04:20→21:56)
[2022-10-05] MEDS: 0.9% Saline Lock 10 ML Syringe IV ×2 (04:24→23:13)
[2022-10-05] MEDS: Insulin Lispro 100 UNIT/ML INSULN.PEN SC ×4 (04:58→22:04)
[2022-10-05 05:19] LABS: Absolute Lymphocyte Count 0.58 X10^3/uL (0.83-4.51); Absolute Neutrophil Count 7.9 X10^3/uL (2.0-7.7); Basophil# 0.04 X10^3/uL; Basophil% 0.4 % (0-1); Eosinophil# 0.06 X10^3/uL; Eosinophils% 0.6 % (0-5); Hematocrit 37.6 % (40-54); Hemoglobin 11.3 g/dL (13.0-16.5); Lymphocyte # 0.58 X10^3/ul (0.83-4.51); Lymphocyte % 5.9 % (19-41); Mean Corp Hgb Conc 30.1 g/dL (32-36); Mean Corpuscular Hgb 29.2 pg (27.0-32.0); Mean Corpuscular Volume 97.2 fL (80-94); Mean Platelet Vol. 12.4 fl (6.2-12.0); Monocyte# 1.22 X10^3/uL; Monocyte% 12.4 % (0-10); NRBC Flagged by Analyzer 0 % (0-5); Neutrophil # 7.89 X10^3/uL (2.7-7.7); Neutrophil % 80.3 % (47-70); POSITIVE DIFFERENTIAL YES; Platelet Count 149 K/mm3 (150-450); RBC Distribution Width CV 14.4 % (11.6-14.6); RBC Distribution Width SD 51.7 fl (35.1-43.9); Red Blood Count 3.87 M/mm3 (4.6-6.2); White Blood Count 9.8 K/mm3 (4.4-11.0)
[2022-10-05 05:26] LABS: Bedside Glucose 344 mg/dL (74-106)
[2022-10-05 05:27] LABS: Differential Indicated SCAN CRITERIA MET
[2022-10-05 05:46] LABS: Procalcitonin 0.65 ng/mL (0.00-0.09)
[2022-10-05 06:01] LABS: Lactic Acid 2.4 mmol/L (0.4-1.9); Troponin-I HS 189 pg/mL (3.0-78.0)
[2022-10-05 06:02] LABS: Anion Gap 8 (5-15); BUN 40 mg/dL (7-18); BUN/Creat Ratio 25.2 RATIO (10-20); Calcium,Total 8.8 mg/dL (8.5-10.1); Chloride 101 mmol/L (98-107); Creatinine, Serum 1.59 mg/dL (0.70-1.30); EST Glomerular Filtration Rate 46 mL/min (>60); Est Glom Filt Rate - Afr Amer 55 mL/min (>60); Estimated Creatinine Clearance 48.83 ml/min; Glucose 334 mg/dL (74-106); Magnesium 2.2 mg/dL (1.6-2.6); Phosphorus 3.9 mg/dL (2.5-4.9); Potassium 5.3 mmol/L (3.5-5.1); Sodium Level 133 mmol/L (136-145)
[2022-10-05 06:33] LABS: M R Staph aureus DNA By PCR Negative (Negative); Probe Check PASS; Specimen Processing Control PASS
[2022-10-05 06:57] LABS: Macrocytosis 1+; Platelet Estimate SLT DEC (ADEQ)
[2022-10-05] MEDS: Ipratropium/Albuterol Sulfate 3 ML AMPUL.NEB INHALATION ×4 (07:24→19:55)
[2022-10-05] MEDS: Enoxaparin 40 MG/0.4 ML Syringe SC ×2 (10:10→22:03)
[2022-10-05] MEDS: levoFLOXacin IV 750 MG/150 ML BAG 100 MG IV (10:26)
--- NOTE | 2022-10-05 11:54 | PCM.PN.HOSP ---
Reason for Visit Reason for Visit: Diagnoses Sepsis, unspecified organism (10/05/22) Acute respiratory failure with hypoxia (10/05/22) Subjective Subjective Patient was seen and examined today, his is in the room and I talked with her extensively about his care. [facility] due to shortness of breath, it is unclear whether the patient has a pneumonia and CHF, there is also question that the patient may have COPD-he is wheezing on examination today, he does not see a compensation advisor. Patient does see Dr. Peña on a chronic basis for heart issues. Objective Data Objective Data Vital Signs: Vital Signs Temp Pulse Resp BP Pulse Ox O2 Del Method FiO2 97.6 F L 94 24 H 137/45 H 98 Bi-pap 25 10/05/22 10:00 10/05/22 10:00 10/05/22 10:00 10/05/22 10:00 10/05/22 10:00 10/05/22 10:15 10/05/22 10:15 Oxygen Delivery Method Bi-pap Weight: 148.8 kg Body Mass Index (BMI) 42.1 Intake & Output: Intake and Output for Last 24 Hours 10/03/22 10/04/22 10/05/22 23:59 23:59 23:59 Intake Total 805 / 805 Output Total 100 / 100 Balance 705 / 705 Lab / Micro Data Result Diagrams: 10/05/22 04:50 10/05/22 04:50 Labs: Laboratory Results - last 24 hr 10/04/22 22:38: WBC 12.1 H, RBC 4.17 L, Hgb 12.3 L, Hct 40.3, MCV 96.6 H, MCH 29.5, MCHC 30.5 L, RDW Std Deviation 51.2 H, RDW Coeff of Sherin 14.5, Plt Count 241, MPV 12.6 H, Immature Gran % (Auto) 2.400 H, Neut % (Auto) 71.3 H, Lymph % (Auto) 14.7 L, [place] % (Auto) 8.5, Eos % (Auto) 2.2, Baso % (Auto) 0.9, Absolute Neuts (auto) 8.6 H, Absolute Lymphs (auto) 1.78, Nucleated RBC % 0 10/04/22 22:38: Sodium 134 L, Potassium 5.3 H, Chloride 101, Carbon Dioxide 24.0, Anion Gap 9, BUN 37 H, Creatinine 1.51 H, Estim Creat Clear Calc 51.41, Est GFR (MDRD) Af Amer 59 L, Est GFR (MDRD) Non-Af 49 L, BUN/Creatinine Ratio 24.5 H, Glucose 369 H, Calcium 9.2, Troponin I High Sens 18 10/04/22 22:38: Lactic Acid 3.1 H* 10/04/22 22:38: B-Natriuretic Peptide 221.4 H 10/05/22 01:01: POC Glucose 328 H 10/05/22 01:10: Troponin I High Sens 83 H 10/05/22 04:50: Lactic Acid 2.4 H* 10/05/22 04:50: Procalcitonin 0.65 H 10/05/22 04:50: WBC 9.8, RBC 3.87 L, Hgb 11.3 L, Hct 37.6 L, MCV 97.2 H, MCH 29.2, MCHC 30.1 L, RDW Std Deviation 51.7 H, RDW Coeff of Sherin 14.4, Plt Count 149 L, MPV 12.4 H, Immature Gran % (Auto) 0.400, Neut % (Auto) 80.3 H, Lymph % (Auto) 5.9 L, [place] % (Auto) 12.4 H, Eos % (Auto) 0.6, Baso % (Auto) 0.4, Absolute Neuts (auto) 7.9 H, Absolute Lymphs (auto) 0.58 L, Nucleated RBC % 0, Platelet Estimate SLT DEC, Macrocytosis 1+ 10/05/22 04:50: Sodium 133 L, Potassium 5.3 H, Chloride 101, Carbon Dioxide 24.0, Anion Gap 8, BUN 40 H, Creatinine 1.59 H, Estim Creat Clear Calc 48.83, Est GFR (MDRD) Af Amer 55 L, Est GFR (MDRD) Non-Af 46 L, BUN/Creatinine Ratio 25.2 H, Glucose 334 H, Calcium 8.8, Phosphorus 3.9, Magnesium 2.2 10/05/22 04:50: Troponin I High Sens 189 H* 10/05/22 04:56: POC Glucose 344 H 10/05/22 05:08: MRSA (PCR) Negative Micro: Microbiology 10/05/22 04:20 Urine Catheter - Lane Legionella Antigen - Final 10/05/22 04:20 Urine Catheter - Lane Streptococcus pneumoniae Antigen (M - Final 10/04/22 23:01 Nasal Secretion SARS-CoV-2 & FLU Antigen (Rapid) - Final ABG Data ABG results: ABG 10/04/22 22:58 Specimen Type ART Sample Site R Radial pH 7.30 L Bicarbonate Actual 24.5 Total CO2 26 Base Excess -2 O2 Saturation 97 O2 % 45 ABG pCO2 50.2 H ABG pO2 96 Dejon Test Positive O2 Delivery Device BiPAP Tidal Volume 450 POC PEEP 10 Clinical Comments Radiography Diagnostic Testing: Radiology Impression Chest X-Ray 10/04/22 22:55 IMPRESSION: Patchy bibasilar airspace disease. Findings may indicate pneumonia. Electronically Signed: Andrae Wallace MD at 23:30 EDT Reading Location ID and State: Count includes the [facility] / [place] Tel , Service support , Chest CTA 10/04/22 23:25 IMPRESSION: 1. No filling defects identified to suggest pulmonary embolism, but small segmental pulmonary emboli are not excluded due to artifact caused by patient respiratory motion. 2. Mild bibasilar airspace disease and small pleural effusions. Findings may indicate atelectasis or infection. Electronically Signed: Andrae Wallace MD at 0:25 EDT Reading Location ID and State: [facility] / [place] Tel , Service support , Physical Exam Const alert, oriented x3 and no apparent distress Constitutional Narrative: Patient is morbidly obese General Appearance: cooperative, well kempt and well developed Orientation / Consciousness: awake, oriented to person and oriented to place HEENT normocephalic, head/scalp atraumatic and moist oral mucous membranes Eyes PERRL, EOMs intact bilaterally and conjunctivae normal Neck supple, no JVD, thyroid normal and no carotid bruits General: trachea midline Resp normal respiratory effort, no retractions, no use of accessory muscles and clear to auscultation bilaterally Auscultation: Negative for rales, rhonchi or wheezes Cardio regular rate, regular rhythm, S1 normal heart sound, S2 normal heart sound, no murmurs, no rub and no gallops GI normal to inspection, nondistended, normoactive bowel sounds, soft to palpation, non-tender and non-distended GI Narrative: Patient has a colostomy present There is a suprapubic catheter present Skin no rashes or lesions noted General Skin Exam: no breakdown Neuro oriented x3, CN's II-XII intact bilaterally, moves all extremities, no focal motor deficits and no sensory deficits noted Sensorium / Orientation: awake, alert, oriented to person and oriented to place Speech: speech normal Psych affect normal Assessment & Plan Assessment/Plan (1) Acute respiratory failure with hypoxia: PLAN: Plan 1. Acute hypoxic respiratory failure-at this time, patient is on high flow nasal cannula oxygen at 6 L, he was on BiPAP earlier today. I discussed with the patient's that the [facility] may [facility], [facility] a [facility]. I have elected to have pulmonary medicine see the patient in consultation, I believe he may have a component of COPD. #2 acute on chronic intermediate congestive heart failure-patient's last echocardiogram showed an EF of 45%-this was done in July 2022, I do not think the patient needs repeat echocardiogram at this point, he will remain on IV diuresis, electrolytes will be monitored #3 acute bibasilar pneumonia-I have elected to keep the patient on his present antibiotics, I am not completely sure he has pneumonia but I think with his medical condition it is best to treat him with antibiotics for 48 hours and reevaluate him #4 coronary artery disease-stable at this time, continue his present medications #5 hyperlipidemia-patient will remain on his statin he is on aspirin and Brilinta #6 Parkinson's disease-patient is on amantadine and Mirapex #7 morbid obesity-complicates care, medical course, recovery and prognosis #8 generalized debility secondary to chronic medical problems including cerebrovascular disease, traumatic brain injury-patient will see PT and OT while he is hospitalized, complicates care, medical course, recovery, and prognosis #9 type 2 diabetes-patient will have fingerstick blood sugars done AC nightly and have sliding scale insulin coverage with Humalog #10 suspected COPD-patient does not have an actual diagnosis of COPD, I will have pulmonary medicine see the patient tomorrow in consultation to direct possible treatment/diagnosis #11 chronic depression-patient is on Prozac and Cymbalta\ #12 diabetic neuropathy-patient is on gabapentin #13 ischemic cardiomyopathy-patient is on Entresto currently #14 restless leg syndrome-patient is on Mirapex Total clinical time spent by myself addressing the patient's medical issues, reviewing all of his data, and collaborating with the patient's care team: 50 minutes Charges/Coding Visit Charges Inpatient E&M: 43442 Subs Hosp L3
[2022-10-05] MEDS: TICAGRELOR 90 MG TABLET PO ×2 (12:15→22:01)
[2022-10-05] MEDS: Amantadine 100 MG Capsule PO (12:15)
[2022-10-05] MEDS: DULoxetine Hcl 60 MG Capsule PO ×2 (12:15→22:02)
[2022-10-05] MEDS: Pantoprazole Sodium 40 MG Tablet PO (12:15)
[2022-10-05] MEDS: Aspirin 81 MG TAB.CHEW PO (12:15)
[2022-10-05] MEDS: Senna/Docusate Sodium 1 Tablet PO ×2 (12:15→21:56)
[2022-10-05] MEDS: Carvedilol 25 MG Tablet PO ×2 (12:15→16:50)
[2022-10-05] MEDS: SACUBITRIL/VALSARTAN 49-51 MG TABLET 1 EACH PO ×2 (12:15→22:02)
[2022-10-05] MEDS: Acetaminophen 325 MG Tablet 650 MG PO (12:15)
[2022-10-05 12:50] LABS: Bedside Glucose 304 mg/dL (74-106)
[2022-10-05 17:15] LABS: Bedside Glucose 302 mg/dL (74-106)
[2022-10-05] MEDS: FLUoxetine 20 MG Capsule 60 MG PO (21:56)
[2022-10-05] MEDS: Pravastatin 80 MG Tablet PO (21:56)
[2022-10-05] MEDS: Pramipexole Di-HCl 0.25 MG Tablet PO (21:56)
[2022-10-05] MEDS: Menthol/Lanolin/Calamine/Znox 113 GM Tube 1 APPLIC TOPICAL (22:01)
[2022-10-05] MEDS: Tamsulosin HCl 0.4 MG Capsule PO (22:02)
[2022-10-05] MEDS: traZODone 50 MG Tablet 150 MG PO (22:02)
[2022-10-05] MEDS: Insulin Glargine-YFGN 100 UNIT/ML Pen 28 UNIT SC (22:03)
--- NOTE | 2022-10-05 23:10 | RAD_ITS ---
EXAM: XR CHEST, 1 VIEW CLINICAL INDICATION: Flash pulmonary edema TECHNIQUE: Frontal view of the chest. COMPARISON: October 05, 2019. FINDINGS: LUNGS AND PLEURAL SPACES: Bilateral lower lung airspace disease unchanged from before. No pleural effusion or pneumothorax. HEART: Unremarkable. Cardiac silhouette not enlarged. MEDIASTINUM: Stable cardiomediastinal appearance. BONES/JOINTS: Bones are unchanged. SOFT TISSUES: Unremarkable. RAD/Chest 1 View (Portable) IMPRESSION: 1. No significant short interval change. 2. Redilatation bilateral lower lung airspace disease. Electronically Signed: Pablo Solares MD at 23:43 EDT ,
[2022-10-05] MEDS: Furosemide 100 MG/10 ML Vial 80 MG IV (23:12)
--- NOTE | 2022-10-05 23:18 | NURSING ---
This RN was called in by respiratory therapy that he had RR 40, audible crackles, and was requiring 100% on BiPAP. This RN reviewed the patient's MAR and there was no Lasix ordered, pt states [facility]. Notified Dr. Hunter and got a x1 order for 80 mg Lasix IV and BID Lasix 40 mg IV.
[2022-10-05] MEDS: Nystatin Powder 15gm Bottle 1 APPLIC TOPICAL (23:25)
[2022-10-06] VITALS (27 sets, daily range): BP systolic 113–182; BP diastolic 59–137; PULSE 85–136; RESP 12–57; TEMP 36.3–37.7; O2SAT 67–100; BMI 42.5
--- NOTE | 2022-10-06 00:47 | NURSING ---
This RN called and updated pt daughter in law and person to notify, Lary Vargas. Yadi JENSEN
[2022-10-06] MEDS: LORazepam 2 MG/ML Syringe 1 MG IV ×2 (01:14→04:55)
[2022-10-06 01:16] LABS: Bedside Glucose 244 mg/dL (74-106)
[2022-10-06] MEDS: Ipratropium/Albuterol Sulfate 3 ML AMPUL.NEB INHALATION ×6 (02:59→23:00)
--- NOTE | 2022-10-06 03:13 | NURSING ---
This RN called pt person to contact, Lary Vargas, and updated on pt respiratory status and new orders received for IV morphine. Yadi JENSEN
[2022-10-06] MEDS: Morphine 2 MG/ML Syringe 1 MG IV (03:15)
[2022-10-06] MEDS: 0.9% Saline Lock 10 ML Syringe IV ×5 (03:16→22:00)
[2022-10-06] MEDS: Methylprednisolone Sod Succ 40 MG/ML VIAL IV ×3 (05:03→21:48)
[2022-10-06] MEDS: Insulin Lispro 100 UNIT/ML INSULN.PEN SC ×4 (06:31→21:37)
--- NOTE | 2022-10-06 06:43 | CPS ---
RT tried AVAPS on pt instead of bipap, pt did not tolerate it as well as bipap. 25/03. RN was in room and agreed with RT. Pt remains on Bipap.
[2022-10-06 06:57] LABS: Absolute Lymphocyte Count 0.23 X10^3/uL (0.83-4.51); Absolute Neutrophil Count 9.9 X10^3/uL (2.0-7.7); Basophil# 0.03 X10^3/uL; Basophil% 0.3 % (0-1); Hematocrit 39.3 % (40-54); Hemoglobin 11.9 g/dL (13.0-16.5); Lymphocyte # 0.23 X10^3/ul (0.83-4.51); Lymphocyte % 2.1 % (19-41); Mean Corp Hgb Conc 30.3 g/dL (32-36); Mean Corpuscular Hgb 29.2 pg (27.0-32.0); Mean Corpuscular Volume 96.6 fL (80-94); Mean Platelet Vol. 11.8 fl (6.2-12.0); Monocyte# 0.59 X10^3/uL; Monocyte% 5.4 % (0-10); NRBC Flagged by Analyzer 0 % (0-5); Neutrophil # 9.93 X10^3/uL (2.7-7.7); Neutrophil % 91.6 % (47-70); POSITIVE DIFFERENTIAL YES; Platelet Count 206 K/mm3 (150-450); RBC Distribution Width CV 14.4 % (11.6-14.6); RBC Distribution Width SD 50.3 fl (35.1-43.9); Red Blood Count 4.07 M/mm3 (4.6-6.2); White Blood Count 10.9 K/mm3 (4.4-11.0)
[2022-10-06 07:05] LABS: Bedside Glucose 344 mg/dL (74-106)
[2022-10-06 07:06] LABS: Differential Indicated SCAN CRITERIA MET
[2022-10-06 07:37] LABS: Anion Gap 8 (5-15); BUN 48 mg/dL (7-18); BUN/Creat Ratio 30.8 RATIO (10-20); Calcium,Total 8.8 mg/dL (8.5-10.1); Chloride 106 mmol/L (98-107); Creatinine, Serum 1.56 mg/dL (0.70-1.30); EST Glomerular Filtration Rate 47 mL/min (>60); Est Glom Filt Rate - Afr Amer 57 mL/min (>60); Estimated Creatinine Clearance 49.76 ml/min; Glucose 367 mg/dL (74-106); Potassium 4.9 mmol/L (3.5-5.1); Sodium Level 135 mmol/L (136-145)
[2022-10-06] MEDS: Furosemide 40 MG/4 ML Vial IV (08:15)
[2022-10-06 08:34] LABS: Differential Comment SCANNED
--- NOTE | 2022-10-06 08:40 | PN.HOSP_ITS ---
Reason for Visit Reason for Visit: Diagnoses Sepsis, unspecified organism (10/05/22) Acute respiratory failure with hypoxia (10/05/22) Objective Data Objective Data Vital Signs: Vital Signs Temp Pulse Resp BP Pulse Ox O2 Del Method O2 Flow Rate 99.9 F H 129 H 33 H 137/80 H 98 Bi-pap 2 10/06/22 08:00 10/06/22 08:00 10/06/22 08:00 10/06/22 08:00 10/06/22 08:00 10/06/22 08:25 10/05/22 19:45 FiO2 50 10/06/22 08:25 Oxygen Flow Rate (L/min) 2 Oxygen Delivery Method Bi-pap Weight: 150.2 kg Body Mass Index (BMI) 42.5 Intake & Output: Intake and Output for Last 24 Hours 10/04/22 10/05/22 10/06/22 23:59 23:59 23:59 Intake Total 1925 / 1925 Output Total 1700 / 2700 1575 / 1575 Balance 225 / -775 -1575 / -1575 Lab / Micro Data Result Diagrams: 10/06/22 06:35 10/06/22 06:35 Labs: Laboratory Results - last 24 hr 10/05/22 12:22: POC Glucose 304 H 10/05/22 16:46: POC Glucose 302 H 10/05/22 22:00: POC Glucose 244 H 10/06/22 06:29: POC Glucose 344 H 10/06/22 06:35: Sodium 135 L, Potassium 4.9, Chloride 106, Carbon Dioxide 21.0, Anion Gap 8, BUN 48 H, Creatinine 1.56 H, Estim Creat Clear Calc 49.76, Est GFR (MDRD) Af Amer 57 L, Est GFR (MDRD) Non-Af 47 L, BUN/Creatinine Ratio 30.8 H, Glucose 367 H, Calcium 8.8 10/06/22 06:35: WBC 10.9, RBC 4.07 L, Hgb 11.9 L, Hct 39.3 L, MCV 96.6 H, MCH 29.2, MCHC 30.3 L, RDW Std Deviation 50.3 H, RDW Coeff of Sherin 14.4, Plt Count 206, MPV 11.8, Immature Gran % (Auto) 0.600, Neut % (Auto) 91.6 H, Lymph % (Auto) 2.1 L, [place] % (Auto) 5.4, Eos % (Auto) 0.0, Baso % (Auto) 0.3, Absolute Neuts (auto) 9.9 H, Absolute Lymphs (auto) 0.23 L, Nucleated RBC % 0, Differential Comment SCANNED Micro: Microbiology 10/05/22 13:28 Mucosa - Nose Respiratory Panel (PCR) - Final 10/05/22 04:20 Urine Catheter - Lane Legionella Antigen - Final 10/05/22 04:20 Urine Catheter - Lane Streptococcus pneumoniae Antigen (M - Final 10/04/22 23:01 Nasal Secretion SARS-CoV-2 & FLU Antigen (Rapid) - Final Radiography Diagnostic Testing: Radiology Impression Chest X-Ray 10/05/22 23:10 IMPRESSION: 1. No significant short interval change. 2. Redilatation bilateral lower lung airspace disease. Electronically Signed: Pablo Solares MD at 23:43 EDT , Assessment & Plan Assessment/Plan (1) Acute respiratory failure with hypoxia: PLAN: Plan 1. Acute hypoxic respiratory failure-at this time, patient is on high flow nasal cannula oxygen at 6 L, he was on BiPAP earlier today. I discussed with the patient's that the patient may need BiPAP at the senior care, he is a chronic senior care resident. I have elected to have pulmonary medicine see the patient in consultation, I believe he may have a component of COPD. #2 acute on chronic intermediate congestive heart failure-patient's last echocardiogram showed an EF of 45%-this was done in July 2022, I do not think the patient needs repeat echocardiogram at this point, he will remain on IV diuresis, electrolytes will be monitored #3 acute bibasilar pneumonia-I have elected to keep the patient on his present antibiotics, I am not completely sure he has pneumonia but I think with his medical condition it is best to treat him with antibiotics for 48 hours and reevaluate him #4 coronary artery disease-stable at this time, continue his present medications #5 hyperlipidemia-patient will remain on his statin he is on aspirin and Brilinta #6 Parkinson's disease-patient is on amantadine and Mirapex #7 morbid obesity-complicates care, medical course, recovery and prognosis #8 generalized debility secondary to chronic medical problems including cerebrovascular disease, traumatic brain injury-patient will see PT and OT while he is hospitalized, complicates care, medical course, recovery, and prognosis #9 type 2 diabetes-patient will have fingerstick blood sugars done AC nightly and have sliding scale insulin coverage with Humalog #10 suspected COPD-patient does not have an actual diagnosis of COPD, I will have pulmonary medicine see the patient tomorrow in consultation to direct possible treatment/diagnosis #11 chronic depression-patient is on Prozac and Cymbalta\ #12 diabetic neuropathy-patient is on gabapentin #13 ischemic cardiomyopathy-patient is on Entresto currently #14 restless leg syndrome-patient is on Mirapex Total clinical time spent by myself addressing the patient's medical issues, reviewing all of his data, and collaborating with the patient's care team: 50 minutes
--- NOTE | 2022-10-06 08:40 | PCM.PN.HOSP ---
Reason for Visit Reason for Visit: Diagnoses Sepsis, unspecified organism (10/05/22) Acute respiratory failure with hypoxia (10/05/22) Subjective Subjective Patient is a 72-year-old gentleman with past medical history segment for chronic congestive heart failure with reduced ejection fraction EF of 45% admitted with progressive shortness of breath Objective Data Objective Data Vital Signs: Vital Signs Temp Pulse Resp BP Pulse Ox O2 Del Method O2 Flow Rate 99.9 F H 129 H 33 H 137/80 H 98 Bi-pap 2 10/06/22 08:00 10/06/22 08:00 10/06/22 08:00 10/06/22 08:00 10/06/22 08:00 10/06/22 08:25 10/05/22 19:45 FiO2 50 10/06/22 08:25 Oxygen Flow Rate (L/min) 2 Oxygen Delivery Method Bi-pap Weight: 150.2 kg Body Mass Index (BMI) 42.5 Intake & Output: Intake and Output for Last 24 Hours 10/04/22 10/05/22 10/06/22 23:59 23:59 23:59 Intake Total 1925 / 1925 Output Total 1700 / 2700 1575 / 1575 Balance 225 / -775 -1575 / -1575 Lab / Micro Data Result Diagrams: 10/06/22 06:35 10/06/22 06:35 Labs: Laboratory Results - last 24 hr 10/05/22 12:22: POC Glucose 304 H 10/05/22 16:46: POC Glucose 302 H 10/05/22 22:00: POC Glucose 244 H 10/06/22 06:29: POC Glucose 344 H 10/06/22 06:35: Sodium 135 L, Potassium 4.9, Chloride 106, Carbon Dioxide 21.0, Anion Gap 8, BUN 48 H, Creatinine 1.56 H, Estim Creat Clear Calc 49.76, Est GFR (MDRD) Af Amer 57 L, Est GFR (MDRD) Non-Af 47 L, BUN/Creatinine Ratio 30.8 H, Glucose 367 H, Calcium 8.8 10/06/22 06:35: WBC 10.9, RBC 4.07 L, Hgb 11.9 L, Hct 39.3 L, MCV 96.6 H, MCH 29.2, MCHC 30.3 L, RDW Std Deviation 50.3 H, RDW Coeff of Sherin 14.4, Plt Count 206, MPV 11.8, Immature Gran % (Auto) 0.600, Neut % (Auto) 91.6 H, Lymph % (Auto) 2.1 L, Real % (Auto) 5.4, Eos % (Auto) 0.0, Baso % (Auto) 0.3, Absolute Neuts (auto) 9.9 H, Absolute Lymphs (auto) 0.23 L, Nucleated RBC % 0, Differential Comment SCANNED Micro: Microbiology 10/05/22 13:28 Mucosa - Nose Respiratory Panel (PCR) - Final 10/05/22 04:20 Urine Catheter - Lane Legionella Antigen - Final 10/05/22 04:20 Urine Catheter - Lane Streptococcus pneumoniae Antigen (M - Final 10/04/22 23:01 Nasal Secretion SARS-CoV-2 & FLU Antigen (Rapid) - Final Radiography Diagnostic Testing: Radiology Impression Chest X-Ray 10/05/22 23:10 IMPRESSION: 1. No significant short interval change. 2. Redilatation bilateral lower lung airspace disease. Electronically Signed: Pablo Solares MD at 23:43 EDT , Physical Exam Narrative GENERAL: Lethargic on BiPAP HEENT: Atraumatic; normocephalic EYES; Anicteric, Normal Conjunctiva NECK; supple, normal thyroid, RESPIRATORY: Diminished to auscultation CARDIOVASCULAR: Regular S1 S2, GI: soft, normoactive bowel sounds, : No Renal angle tenderness; EXTREMITIES: No edema, no clubbing, MUSCULOSKELETAL: no muscle wasting NEURO: Awake; no lateralizing signs. SKIN: No Rash PSYCH; Flat affect Assessment & Plan Assessment/Plan (1) Acute respiratory failure with hypoxia: PLAN: Plan Patient is a 72-year-old gentleman with past medical history segment for chronic congestive heart failure with reduced ejection fraction EF of 45% admitted with progressive shortness of breath 1. Acute hypoxic respiratory failure ? Secondary to a combination of congestive heart failure COPD as well as suspected JIM with obesity hypoventilation syndrome patient has been managed with noninvasive ventilation BiPAP with consultation placed to pulmonary medicine 2. Acute congestive heart failure with reduced ejection fraction ? EF obtained on July 2022 was 45%. Patient has been managed with diuretics as well as noninvasive ventilation with BiPAP 3. Suspected pneumonia ? Patient was found to have bibasilar infiltrates. There was a question whether this was atelectasis fluid or pneumonia. Patient remains on antibiotics cultures so far negative to date 4.? Coronary artery disease ? With previous CABG 5.? Diabetes mellitus type 2 ? Did continue patient long-acting insulin in addition to scheduled Premeal insulin and correction factor sliding scale.? Was placed on Accu-Cheks before meals and at bedtime 6.? Obstructive sleep apnea ? Patient is on CPAP at night 7.? Dyslipidemia ? Patient is on pravastatin plan is to continue 8.? BPH ? Patient is on tamsulosin did continue 9.? History of previous CVA ? Patient apparently is bedridden has an indwelling chronic Lane catheter as well as an ostomy.? Patient is on antiplatelet therapy as well as statin therapy did continue 10.? Class III obesity with BMI of 43.2 ? Weight loss advised 11.? Hypertension - Blood pressure controlled, home medications continued with dose adjustment as needed 12. Diabetic polyneuropathy ? Patient is on gabapentin 13. Left leg syndrome ? Patient is on Mirapex 14. Anemia - Secondary to chronic disorder monitoring H&H and transfuse if patient becomes symptomatic or hemoglobin falls below 7 15. DVT prophylaxis ? Lovenox 40 mg SC every 12 CODE STATUS DNR CCA no intubation discussed with family Time spent in the patient's overall evaluation,decision-making process, review of diagnostic data, adjustment of management, discussion with other providers, nursing nursing and ancillary staff involved in patient's care documentation, 55 Minutes Charges/Coding Visit Charges Inpatient E&M: 54115 Subs Hosp L3
[2022-10-06] MEDS: levoFLOXacin IV 750 MG/150 ML BAG 100 MG IV (09:50)
[2022-10-06] MEDS: Furosemide 20 MG/2 ML VIAL IV (09:50)
[2022-10-06] MEDS: Enoxaparin 40 MG/0.4 ML Syringe SC ×2 (09:50→21:37)
[2022-10-06] MEDS: Menthol/Lanolin/Calamine/Znox 113 GM Tube 1 APPLIC TOPICAL ×2 (09:55→21:36)
[2022-10-06] MEDS: Nystatin Powder 15gm Bottle 1 APPLIC TOPICAL ×2 (09:55→21:36)
--- NOTE | 2022-10-06 09:58 | CASEMGMT ---
Discharge Planning Updates sent to [facility] via [facility]
--- NOTE | 2022-10-06 10:42 | CASEMGMT ---
Social Work SW spoke w/ and daughter in law in room. SW confirmed plan would be for pt to return to [facility] at discharge, SNF list not needed at this time. SW will continue to follow, updates already sent via [employer] by discharge wind science and planning. REILLY Lema
--- NOTE | 2022-10-06 11:49 | CON.PCM.CC_ITS ---
Assessment & Plan Assessment/Plan (1) Acute respiratory failure with hypoxia: PLAN: Plan RECOMMENDATIONS: 1. Continue BiPAP therapy with naps and nightly. 2. Wean supplemental oxygen to maintain saturations at or above 90%. 3. Continue diuresis as tolerated by hemodynamics and renal function. 4. Continue bronchodilators along with IV steroids. 5. Continue empiric antimicrobials. 6. Continue appropriate DVT prophylaxis. 7. Encourage incentive spirometer use and mobilize patient as tolerated. 8. Outpatient pulmonary follow-up within 2 weeks of discharge is recommended. IMPRESSIONS: 1.??Acute hypoxemic respiratory failure Unclear precipitating etiology.? While CHF exacerbation is certainly a possibility, contributions from underlying obstructive lung disease and pneumonia cannot be discounted.? Nevertheless, given the rapidity with which the patient improved clinically with IV diuretics and BiPAP, it is certainly most plausible that underlying CHF was the main contributing factor.? The patient was able to be transition from BiPAP to nasal cannula supplemental oxygen this afternoon. Recommend continuing baseline cardiac meds including diuretic therapy as tolerated by hemodynamics and renal function. In addition, I agree with continuing scheduled bronchodilators, IV steroids and empiric antimicrobials. Ultimately, I would recommend that the patient follow-up in the pulmonary medicine clinic after discharge so that formal PFTs can be obtained. 2.??History of chronic tobacco dependency Tobacco cessation counseling was provided.? Nicotine replacement therapy can be offered to the patient while admitted to the hospital.? Again, I would recommend outpatient pulmonary follow-up. 3.??History of obstructive sleep apnea Recommend continuing Pap therapy with naps and nightly.? The patient does report compliance with the use of nocturnal CPAP therapy. 4.??History of coronary artery disease status post CABG/history of CVA/hypertension/hyperlipidemia/diabetes mellitus/morbid obesity Complicates care, management, recovery and prognosis.? Continue home medications as indicated. This note was generated with [employer] software. It may contain incorrect words, spelling, and punctuation that were not noted in checking the note before signing. HPI Consult Data Date of Consult: 10/07/22 HPI Narrative Reason for Consultation: Acute hypoxemic respiratory failure HPI Narrative: The patient is a 72-year-old male, with a history as outlined below, who presented to the emergency department via EMS on October 04 with worsening shortness of breath and hypoxemia. The patient has extensive cardiac history including coronary artery disease status post CABG in 2001. He has also undergone several PCI's since that time as well. The patient has combined systolic and diastolic heart failure and follows with the cardiology clinic on an outpatient basis. He also has an extensive tobacco abuse history and continues to smoke 0.25 packs of cigarettes per day. He has never been evaluated by a flower machine operator, nor has he ever completed pulmonary function studies. The patient does utilize nocturnal CPAP therapy due to a history of sleep apnea. However, the patient has significant dietary indiscretions, which has led to frequent hospitalizations, mostly secondary to acute decompensated heart failure requiring noninvasive positive pressure ventilatory support and diuresis. On presentation to the emergency department, the patient was notably tachycardic and tachypneic. The patient was hypoxemic on room air and subsequently placed on BiPAP therapy. Initial laboratory evaluation revealed a white blood cell count of 12,000. Blood gas demonstrated a pH of 7.3 with a PCO2 of 50 and PO2 of 96. Chemistry profile was notable for a creatinine of 1.59 and lactate of 2.6. Troponin was elevated at 189. CTA chest showed no evidence for pulmonary embolism. Bibasilar atelectasis and small pleural effusions were noted. The patient was subsequently placed on antimicrobials, along with scheduled bronchodilators, IV steroids and IV Lasix. He was admitted to the progressive care unit for further management. [facility] Medical History (Updated 10/05/22 @ 04:[address] 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 pectoris Benign prostatic hyperplasia Chronic combined systolic and diastolic CHF (congestive heart failure) COPD (chronic obstructive pulmonary disease) COPD with acute exacerbation CVA (cerebral vascular accident) Depression Diabetes Dysphagia Essential (primary) hypertension GERD (gastroesophageal reflux disease) Heart failure History of non-ST elevation myocardial infarction (NSTEMI) (02/21/19) HTN (hypertension) Hyperlipidemia Intraparenchymal hemorrhage of brain Intraventricular hemorrhage Ischemic cardiomyopathy Morbid obesity Myocardial infarct Neuromuscular dysfunction of bladder Nicotine dependence Obesity Obstructive sleep apnea Osteomyelitis of sacrum Recurrent UTI (urinary tract infection) Reflux esophagitis Restless leg syndrome Right hemiplegia RLS (restless legs syndrome) Sleep apnea Subarachnoid hemorrhage Subdural hematoma Tobacco abuse Traumatic brain injury Type 2 diabetes mellitus Home Medications amantadine HCl 100 mg capsule 100 mg PO DAILY PARKINSON 04/17/18 [History Last Taken 07/19/21] pantoprazole 40 mg tablet,delayed release 40 mg PO DAILY STOMACH 04/17/18 [History Last Taken 07/19/21] pramipexole 0.25 mg tablet 0.25 mg PO QHS PARKINSONS 04/17/18 [History Last Taken 07/18/21] pravastatin 80 mg tablet 80 mg PO QHS CHOLESTEROL 04/17/18 [History Last Taken 07/18/21] nitroglycerin 0.4 mg sublingual tablet 0.4 mg sublingual PRN PRN CHEST PAIN 02/20/19 [History Last Taken Unknown] aspirin 81 mg chewable tablet 81 mg PO DAILY@0800 heart health 02/24/19 [History Last Taken 07/19/21] insulin aspart U-100 100 unit/mL (3 mL) subcutaneous pen (Novolog FlexPen U-100 Insulin aspart) See Protocol subcut TIDCM blood sugar 09/14/19 [History Last Taken 07/19/21] sennosides 8.6 mg-docusate sodium 50 mg tablet 2 ea PO BID constipation 01/02/20 [History Last Taken 07/19/21] melatonin 3 mg disintegrating tablet 3 mg PO QHS sleep 09/14/20 [History Last Taken 07/18/21] fluticasone propionate 110 mcg/actuation HFA aerosol inhaler 1 puff inhalation BID allergies 02/17/21 [History Last Taken 07/19/21] insulin aspart U-100 100 unit/mL (3 mL) subcutaneous pen (Novolog FlexPen U-100 Insulin aspart) 15 unit subcut TIDCM blood sugar 02/17/21 [History Last Taken 07/19/21] tamsulosin 0.4 mg capsule 0.4 mg PO QHS prostate 02/17/21 [History Last Taken 07/18/21] ticagrelor 90 mg tablet (Brilinta) 90 mg PO BID heart 02/17/21 [History Last Taken 07/19/21] carvedilol 25 mg tablet 25 mg PO BID #0 tabs 02/20/21 [Rx Last Taken 07/19/21] potassium chloride 20 mEq tablet,extended release(part/cryst) 40 meq PO DAILY supplement 90 days #90 tabs 02/20/21 [Rx Last Taken 07/19/21] insulin glargine 100 unit/mL (3 mL) subcutaneous pen (Lantus Solostar U-100 Insulin) 28 unit subcut QPM DM 04/25/21 [History Last Taken 07/18/21] spironolactone 25 mg tablet 25 mg PO DAILY #30 tabs 04/29/21 [Rx Last Taken 07/19/21] aluminum-magnesium hydroxide 225 mg-200 mg/5 mL oral suspension 30 ml PO Q4H PRN GI distress 10/11/21 [History Last Taken Unknown] bisacodyl 10 mg rectal suppository 10 mg IA DAILY PRN constipaiton 10/11/21 [History Last Taken Unknown] duloxetine 60 mg capsule,delayed release 60 mg PO BID depression 10/11/21 [History Last Taken Unknown] fluoxetine 40 mg capsule 60 mg PO QPM depression 10/11/21 [History Last Taken Unknown] guaifenesin 200 mg/5 mL oral liquid 10 mg PO Q4H PRN Cough 10/11/21 [History Last Taken Unknown] magnesium hydroxide 400 mg/5 mL oral suspension (Milk of Magnesia) 30 ml PO DAILY PRN consipation 10/11/21 [History Last Taken Unknown] nystatin 100,000 unit/gram topical powder 1 applic topical DAILY PRN excoriation 10/11/21 [History Last Taken Unknown] sacubitril 49 mg-valsartan 51 mg tablet (Entresto) 1 tab PO BID #60 tabs 10/11/21 [Rx Last Taken Unknown] sodium phosphates 19 gram-7 gram/118 mL enema (Fleet Enema) 118 ml IA ONCE PRN Constipation 10/11/21 [History Last Taken Unknown] trazodone 50 mg tablet 150 mg PO QHS sleep 10/11/21 [History Last Taken Unknown] acetaminophen 500 mg tablet 650 mg PO Q4H PRN PRN Mild Pain (1-3/10) 07/27/22 [History Last Taken Unknown] cetirizine 10 mg tablet (Zyrtec) 10 mg PO DAILY sinus 07/27/22 [History Last Taken Unknown] gabapentin 300 mg capsule 300 mg PO DAILY neuropathy 07/27/22 [History Last Taken Unknown] levofloxacin 750 mg tablet 750 mg PO DAILY #9 tabs 07/28/22 [Rx Last Taken Unknown] furosemide 40 mg tablet 40 mg PO BID CHF 10/05/22 [History Last Taken Unknown] oxycodone 5 mg tablet 5 mg PO TID 10/05/22 [History Last Taken Unknown] Allergy/AdvReac Type Severity Reaction Status Date / Time atorvastatin Allergy PT UNSURE Verified 10/04/22 23:53 OF REACTION cilostazol Allergy Hives Verified 10/04/22 23:53 colestipol Allergy Hives Verified 10/04/22 23:53 diltiazem Allergy Hives Verified 10/04/22 23:53 gemfibrozil Allergy Hives Verified 10/04/22 23:53 naproxen [From Naprosyn] Allergy Hives Verified 10/04/22 23:53 niacin Allergy PT UNSURE Verified 10/04/22 23:53 OF REACTION Nitrate Analogues Allergy Hives Verified 10/04/22 23:53 Penicillins Allergy Hives Verified 10/04/22 23:53 pravastatin Allergy NEEDS Verified 10/04/22 23:53 FOLLOW-UP procainamide Allergy Hives Verified 10/04/22 23:53 procaine Allergy NEEDS Verified 10/04/22 23:53 FOLLOW-UP rosuvastatin Allergy Hives Verified 10/04/22 23:53 simvastatin Allergy Hives Verified 10/04/22 23:53 isosorbide AdvReac Severe Unknown Verified 10/04/22 23:53 Family History Brother Heart disease Father Heart disease Alzheimer disease Mother No history of heart disease Surgical History Chronic suprapubic catheter H/O coronary angioplasty H/O coronary artery bypass surgery (2001) History of coronary artery stent placement (09/18/20) History of left heart catheterization (04/29/21) PEG (percutaneous endoscopic gastrostomy) adjustment/replacement/removal Status post ileostomy Status post osteotomy (01/2018) Social History housing: assisted Smoking Status: Current every day smoker tobacco type: cigarettes second hand exposure: Yes alcohol intake: former substance use type: does not use caffeine: Yes Type: coffee Number of servings: 3 what type of physical activity do you participate in: none ROS ROS Narrative 10 systems were reviewed with pertinent positives as noted in the HPI above. Physical Exam Const alert Constitutional Narrative: Currently tolerating BiPAP with family present at the bedside. Obese. General Appearance: cooperative HEENT normocephalic and head/scalp atraumatic Eyes PERRL, EOMs intact bilaterally and conjunctivae normal Neck supple General: trachea midline Chest inspection of chest normal Resp Effort and Inspection: tachypneic Auscultation: wheezes and diminished lung sounds Cardio regular rate and regular rhythm GI normal to inspection, nondistended, normoactive bowel sounds Extremity Extremity Narrative: Trace lower extremity edema Skin no rashes or lesions noted Neuro oriented x3, CN's II-XII intact bilaterally and moves all extremities Psych cooperative and affect normal Lab / Micro Data Result Diagrams: 10/07/22 05:30 10/07/22 05:30 Labs: Laboratory Results - last 24 hr 10/05/22 12:22: POC Glucose 304 H 10/05/22 16:46: POC Glucose 302 H 10/05/22 22:00: POC Glucose 244 H 10/06/22 06:29: POC Glucose 344 H 10/06/22 06:35: Sodium 135 L, Potassium 4.9, Chloride 106, Carbon Dioxide 21.0, Anion Gap 8, BUN 48 H, Creatinine 1.56 H, Estim Creat Clear Calc 49.76, Est GFR (MDRD) Af Amer 57 L, Est GFR (MDRD) Non-Af 47 L, BUN/Creatinine Ratio 30.8 H, Glucose 367 H, Calcium 8.8 10/06/22 06:35: WBC 10.9, RBC 4.07 L, Hgb 11.9 L, Hct 39.3 L, MCV 96.6 H, MCH 29.2, MCHC 30.3 L, RDW Std Deviation 50.3 H, RDW Coeff of Sherin 14.4, Plt Count 206, MPV 11.8, Immature Gran % (Auto) 0.600, Neut % (Auto) 91.6 H, Lymph % (Auto) 2.1 L, [place] % (Auto) 5.4, Eos % (Auto) 0.0, Baso % (Auto) 0.3, Absolute Neuts (auto) 9.9 H, Absolute Lymphs (auto) 0.23 L, Nucleated RBC % 0, Differential Comment SCANNED Micro: Microbiology 10/05/22 13:28 Mucosa - Nose Respiratory Panel (PCR) - Final Radiology Impression Chest X-Ray 10/05/22 23:10 IMPRESSION: 1. No significant short interval change. 2. Redilatation bilateral lower lung airspace disease. Electronically Signed: Pablo Solares MD at 23:43 EDT , Charges/Coding Visit Charges Inpatient E&M: 56721 Init Hosp L3
[2022-10-06] MEDS: Albuterol 2.5 MG/3 ML VIAL.NEB. INHALATION (11:59)
[2022-10-06 12:45] LABS: Bedside Glucose 327 mg/dL (74-106)
[2022-10-06] MEDS: Furosemide 100 MG/10 ML Vial 60 MG IV ×2 (13:18→21:47)
[2022-10-06] MEDS: Carvedilol 25 MG Tablet PO (16:24)
[2022-10-06 16:50] LABS: Bedside Glucose 298 mg/dL (74-106)
[2022-10-06] MEDS: Tamsulosin HCl 0.4 MG Capsule PO (21:26)
[2022-10-06] MEDS: Senna/Docusate Sodium 1 Tablet PO (21:26)
[2022-10-06] MEDS: traZODone 50 MG Tablet 150 MG PO (21:26)
[2022-10-06] MEDS: FLUoxetine 20 MG Capsule 60 MG PO (21:26)
[2022-10-06] MEDS: Pramipexole Di-HCl 0.25 MG Tablet PO (21:26)
[2022-10-06] MEDS: SACUBITRIL/VALSARTAN 49-51 MG TABLET 1 EACH PO (21:27)
[2022-10-06] MEDS: DULoxetine Hcl 60 MG Capsule PO (21:27)
[2022-10-06] MEDS: TICAGRELOR 90 MG TABLET PO (21:27)
[2022-10-06] MEDS: Pravastatin 80 MG Tablet PO (21:27)
[2022-10-06] MEDS: Insulin Glargine-YFGN 100 UNIT/ML Pen 28 UNIT SC (21:37)
[2022-10-06 22:41] LABS: Bedside Glucose 383 mg/dL (74-106)
[2022-10-07] VITALS (18 sets, daily range): BP systolic 110–157; BP diastolic 56–107; PULSE 72–99; RESP 12–24; TEMP 36.1–36.9; O2SAT 93–100; BMI 40.6
[2022-10-07] MEDS: 0.9% Saline Lock 10 ML Syringe IV ×3 (05:19→21:19)
[2022-10-07] MEDS: Methylprednisolone Sod Succ 40 MG/ML VIAL IV (05:20)
[2022-10-07] MEDS: Furosemide 100 MG/10 ML Vial 60 MG IV ×3 (05:20→21:20)
[2022-10-07 06:04] LABS: Absolute Lymphocyte Count 0.79 X10^3/uL (0.83-4.51); Absolute Neutrophil Count 7.3 X10^3/uL (2.0-7.7); Basophil# 0.03 X10^3/uL; Basophil% 0.3 % (0-1); Hemoglobin 11.1 g/dL (13.0-16.5); Lymphocyte # 0.79 X10^3/ul (0.83-4.51); Lymphocyte % 8.9 % (19-41); Mean Corp Hgb Conc 30.8 g/dL (32-36); Mean Corpuscular Hgb 29.5 pg (27.0-32.0); Mean Corpuscular Volume 95.7 fL (80-94); Mean Platelet Vol. 11.8 fl (6.2-12.0); Monocyte% 7.9 % (0-10); NRBC Flagged by Analyzer 0 % (0-5); Neutrophil % 82.1 % (47-70); Platelet Count 189 K/mm3 (150-450); RBC Distribution Width CV 14.6 % (11.6-14.6); Red Blood Count 3.76 M/mm3 (4.6-6.2); White Blood Count 8.9 K/mm3 (4.4-11.0)
[2022-10-07 06:37] LABS: Anion Gap 8 (5-15); BUN 50 mg/dL (7-18); BUN/Creat Ratio 33.1 RATIO (10-20); Calcium,Total 8.7 mg/dL (8.5-10.1); Chloride 108 mmol/L (98-107); Creatinine, Serum 1.51 mg/dL (0.70-1.30); EST Glomerular Filtration Rate 49 mL/min (>60); Est Glom Filt Rate - Afr Amer 59 mL/min (>60); Estimated Creatinine Clearance 51.41 ml/min; Glucose 319 mg/dL (74-106); Magnesium 2.3 mg/dL (1.6-2.6); Potassium 3.6 mmol/L (3.5-5.1); Sodium Level 142 mmol/L (136-145)
[2022-10-07] MEDS: Insulin Lispro 100 UNIT/ML INSULN.PEN SC ×4 (06:41→21:19)
[2022-10-07 07:05] LABS: Bedside Glucose 304 mg/dL (74-106)
[2022-10-07] MEDS: Ipratropium/Albuterol Sulfate 3 ML AMPUL.NEB INHALATION ×4 (07:22→19:03)
--- NOTE | 2022-10-07 07:26 | PCM.PN.HOSP ---
Reason for Visit Reason for Visit: Diagnoses Sepsis, unspecified organism (10/05/22) Acute respiratory failure with hypoxia (10/05/22) Subjective Subjective Patient seen has been weaned off BiPAP. Patient is much more interactive compared to the day prior. Did discuss with family about obtaining palliative care consultation Objective Data Objective Data Vital Signs: Vital Signs Temp Pulse Resp BP Pulse Ox O2 Del Method O2 Flow Rate 98.0 F 89 20 H 135/56 H 100 Bi-pap 6 10/07/22 03:48 10/07/22 05:17 10/07/22 05:17 10/07/22 05:17 10/07/22 05:17 10/07/22 05:17 10/06/22 21:30 FiO2 40 10/07/22 04:25 Oxygen Flow Rate (L/min) 6 Oxygen Delivery Method Bi-pap Weight: 143.8 kg Body Mass Index (BMI) 40.6 Intake & Output: Intake and Output for Last 24 Hours 10/05/22 10/06/22 10/07/22 23:59 23:59 23:59 Intake Total 1925 / 1925 660 / 660 80 / 80 Output Total 1700 / 2700 5925 / 5925 1450 / 1450 Balance 225 / -775 -5265 / -5265 -1370 / -1370 Lab / Micro Data Result Diagrams: 10/07/22 05:30 10/07/22 05:30 Labs: Laboratory Results - last 24 hr 10/06/22 06:35: Sodium 135 L, Potassium 4.9, Chloride 106, Carbon Dioxide 21.0, Anion Gap 8, BUN 48 H, Creatinine 1.56 H, Estim Creat Clear Calc 49.76, Est GFR (MDRD) Af Amer 57 L, Est GFR (MDRD) Non-Af 47 L, BUN/Creatinine Ratio 30.8 H, Glucose 367 H, Calcium 8.8 10/06/22 06:35: Differential Comment SCANNED 10/06/22 12:20: POC Glucose 327 H 10/06/22 16:23: POC Glucose 298 H 10/06/22 21:22: POC Glucose 383 H 10/07/22 05:30: WBC 8.9, RBC 3.76 L, Hgb 11.1 L, Hct 36.0 L, MCV 95.7 H, MCH 29.5, MCHC 30.8 L, RDW Std Deviation 51.0 H, RDW Coeff of Sherin 14.6, Plt Count 189, MPV 11.8, Immature Gran % (Auto) 0.800, Neut % (Auto) 82.1 H, Lymph % (Auto) 8.9 L, [place] % (Auto) 7.9, Eos % (Auto) 0.0, Baso % (Auto) 0.3, Absolute Neuts (auto) 7.3, Absolute Lymphs (auto) 0.79 L, Nucleated RBC % 0 10/07/22 05:30: Sodium 142, Potassium 3.6, Chloride 108 H, Carbon Dioxide 26.0, Anion Gap 8, BUN 50 H, Creatinine 1.51 H, Estim Creat Clear Calc 51.41, Est GFR (MDRD) Af Amer 59 L, Est GFR (MDRD) Non-Af 49 L, BUN/Creatinine Ratio 33.1 H, Glucose 319 H, Calcium 8.7, Phosphorus 3.0, Magnesium 2.3 10/07/22 06:40: POC Glucose 304 H Micro: Microbiology 10/05/22 13:28 Mucosa - Nose Respiratory Panel (PCR) - Final 10/05/22 04:20 Urine Catheter - Lane Legionella Antigen - Final 10/05/22 04:20 Urine Catheter - Lane Streptococcus pneumoniae Antigen (M - Final 10/04/22 23:01 Nasal Secretion SARS-CoV-2 & FLU Antigen (Rapid) - Final Physical Exam Narrative GENERAL: Awake and cooperative HEENT: Atraumatic; normocephalic EYES; Anicteric, Normal Conjunctiva NECK; supple, normal thyroid, RESPIRATORY: Diminished to auscultation CARDIOVASCULAR: Regular S1 S2, GI: soft, normoactive bowel sounds, : No Renal angle tenderness; EXTREMITIES: No edema, no clubbing, MUSCULOSKELETAL: no muscle wasting NEURO: Awake; no lateralizing signs. SKIN: No Rash PSYCH; Flat affect Assessment & Plan Assessment/Plan (1) Acute respiratory failure with hypoxia: PLAN: Plan Patient is a 72-year-old gentleman with past medical history segment for chronic congestive heart failure with reduced ejection fraction EF of 45% admitted with progressive shortness of breath 1. Acute hypoxic respiratory failure ? Secondary to a combination of congestive heart failure COPD as well as suspected JIM with obesity hypoventilation syndrome patient has been managed with noninvasive ventilation BiPAP with consultation placed to pulmonary medicine -10/07/2022; Patient seen has been weaned off BiPAP. Patient is much more interactive compared to the day prior. Did discuss with family about obtaining palliative care consultation 2. Acute congestive heart failure with reduced ejection fraction ? EF obtained on July 2022 was 45%. Patient has been managed with diuretics as well as noninvasive ventilation with BiPAP 3. Suspected pneumonia ? Patient was found to have bibasilar infiltrates. There was a question whether this was atelectasis fluid or pneumonia. Patient remains on antibiotics cultures so far negative to date 4.? Coronary artery disease ? With previous CABG 5.? Diabetes mellitus type 2 ? Did continue patient long-acting insulin in addition to scheduled Premeal insulin and correction factor sliding scale.? Was placed on Accu-Cheks before meals and at bedtime 6.? Obstructive sleep apnea ? Patient is on CPAP at night 7.? Dyslipidemia ? Patient is on pravastatin plan is to continue 8.? BPH ? Patient is on tamsulosin did continue 9.? History of previous CVA ? Patient apparently is bedridden has an indwelling chronic Lane catheter as well as an ostomy.? Patient is on antiplatelet therapy as well as statin therapy did continue 10.? Class III obesity with BMI of 43.2 ? Weight loss advised 11.? Hypertension - Blood pressure controlled, home medications continued with dose adjustment as needed 12. Diabetic polyneuropathy ? Patient is on gabapentin 13. Left leg syndrome ? Patient is on Mirapex 14. Anemia - Secondary to chronic disorder monitoring H&H and transfuse if patient becomes symptomatic or hemoglobin falls below 7 15. DVT prophylaxis ? Lovenox 40 mg SC every 12 CODE STATUS DNR CCA no intubation discussed with family Time spent in the patient's overall evaluation,decision-making process, review of diagnostic data, adjustment of management, discussion with other providers, nursing nursing and ancillary staff involved in patient's care documentation, 45 Minutes Charges/Coding Visit Charges Inpatient E&M: 14862 Subs Hosp L2
--- NOTE | 2022-10-07 08:16 | PCM.PN.INT ---
Assessment & Plan Assessment/Plan (1) Acute respiratory failure with hypoxia: PLAN: Plan RECOMMENDATIONS: 1. Continue BiPAP therapy with naps and nightly. 2. Wean supplemental oxygen to maintain saturations at or above 90%. 3. Continue diuresis as tolerated by hemodynamics and renal function. 4. Continue bronchodilators along with steroids. 5. Continue empiric antimicrobials. 6. Continue appropriate DVT prophylaxis. 7. Encourage incentive spirometer use and mobilize patient as tolerated. 8. Outpatient pulmonary follow-up within 2 weeks of discharge is recommended. IMPRESSIONS: 1.??Acute hypoxemic respiratory failure Unclear precipitating etiology.? While CHF exacerbation is certainly a possibility, contributions from underlying obstructive lung disease and pneumonia cannot be discounted.? Nevertheless, given the rapidity with which the patient improved clinically with IV diuretics and BiPAP, it is certainly most plausible that underlying CHF was the main contributing factor.? The patient is currently maintaining appropriate oxygen saturations on nasal cannula O2. We will continue to wean as tolerated to maintain saturations at or above 90%. Recommend continuing baseline cardiac meds including diuretic therapy as tolerated by hemodynamics and renal function. In addition, I agree with continuing scheduled bronchodilators, steroids and empiric antimicrobials. Ultimately, I would recommend that the patient follow-up in the pulmonary medicine clinic after discharge so that formal PFTs can be obtained. 2.??History of chronic tobacco dependency Tobacco cessation counseling was provided.? Nicotine replacement therapy can be offered to the patient while admitted to the hospital.? Again, I would recommend outpatient pulmonary follow-up. 3.??History of obstructive sleep apnea Recommend continuing Pap therapy with naps and nightly.? The patient does report compliance with the use of nocturnal CPAP therapy. 4.??History of coronary artery disease status post CABG/history of CVA/hypertension/hyperlipidemia/diabetes mellitus/morbid obesity Complicates care, management, recovery and prognosis.? Continue home medications as indicated. This note was generated with [employer] dictation software. It may contain incorrect words, spelling, and punctuation that were not noted in checking the note before signing. Subjective Subjective The patient was seen and examined at the bedside this morning. Events from the last 24 hours have been reviewed. The patient is currently afebrile, hemodynamically stable and maintaining appropriate oxygen saturations on 2 L/min via nasal cannula. The patient tolerated PAP therapy overnight. He is currently documented to be overall net -6.4 L for the hospitalization. Creatinine is stable. Objective Data Objective Data The patient's most recent lab work, culture data and imaging studies have all been personally reviewed. Surface echocardiogram from July 2022 demonstrated an ejection fraction of 45% with stage I diastolic dysfunction. Infectious work-up has been unrevealing to date. Vital Signs: Vital Signs Temp Pulse Resp BP Pulse Ox O2 Del Method O2 Flow Rate 98.0 F 89 20 H 135/56 H 100 Bi-pap 6 10/07/22 03:48 10/07/22 05:17 10/07/22 05:17 10/07/22 05:17 10/07/22 05:17 10/07/22 05:17 10/06/22 21:30 FiO2 40 10/07/22 04:25 Oxygen Flow Rate (L/min) 6 Oxygen Delivery Method Bi-pap Weight: 317 lb 0.395 oz Body Mass Index (BMI) 40.6 Intake & Output: Intake and Output for Last 24 Hours 10/05/22 10/06/22 10/07/22 23:59 23:59 23:59 Intake Total 1925 / 1925 660 / 660 80 / 80 Output Total 1700 / 2700 5925 / 5925 1450 / 1450 Balance 225 / -775 -5265 / -5265 -1370 / -1370 Lab / Micro Data Attestation: I reviewed the patient's lab results. Result Diagrams: 10/07/22 05:30 10/07/22 05:30 Labs: Laboratory Results - last 24 hr 10/06/22 06:35: Differential Comment SCANNED 10/06/22 12:20: POC Glucose 327 H 10/06/22 16:23: POC Glucose 298 H 10/06/22 21:22: POC Glucose 383 H 10/07/22 05:30: WBC 8.9, RBC 3.76 L, Hgb 11.1 L, Hct 36.0 L, MCV 95.7 H, MCH 29.5, MCHC 30.8 L, RDW Std Deviation 51.0 H, RDW Coeff of Sherin 14.6, Plt Count 189, MPV 11.8, Immature Gran % (Auto) 0.800, Neut % (Auto) 82.1 H, Lymph % (Auto) 8.9 L, [place] % (Auto) 7.9, Eos % (Auto) 0.0, Baso % (Auto) 0.3, Absolute Neuts (auto) 7.3, Absolute Lymphs (auto) 0.79 L, Nucleated RBC % 0 10/07/22 05:30: Sodium 142, Potassium 3.6, Chloride 108 H, Carbon Dioxide 26.0, Anion Gap 8, BUN 50 H, Creatinine 1.51 H, Estim Creat Clear Calc 51.41, Est GFR (MDRD) Af Amer 59 L, Est GFR (MDRD) Non-Af 49 L, BUN/Creatinine Ratio 33.1 H, Glucose 319 H, Calcium 8.7, Phosphorus 3.0, Magnesium 2.3 10/07/22 06:40: POC Glucose 304 H Micro: Microbiology 10/04/22 22:50 Blood Culture (Wb) - Arm Left Blood Culture - Preliminary No growth in 48 hours. 10/04/22 23:10 Blood Culture (Wb) - Anticubital Left Blood Culture - Preliminary No growth in 48 hours. 10/05/22 13:28 Mucosa - Nose Respiratory Panel (PCR) - Final 10/05/22 04:20 Urine Catheter - Lane Legionella Antigen - Final 10/05/22 04:20 Urine Catheter - Lane Streptococcus pneumoniae Antigen (M - Final 10/04/22 23:01 Nasal Secretion SARS-CoV-2 & FLU Antigen (Rapid) - Final Physical Exam Const alert and no apparent distress Constitutional Narrative: Morbidly obese. Sitting upright in bed. General Appearance: cooperative HEENT normocephalic and head/scalp atraumatic Eyes PERRL, EOMs intact bilaterally and conjunctivae normal Neck supple General: trachea midline Chest inspection of chest normal Resp normal respiratory effort Auscultation: wheezes and diminished lung sounds Cardio regular rate and regular rhythm GI normal to inspection, nondistended, normoactive bowel sounds Inspection: ostomy present Extremity Extremity Narrative: Wrapped lower extremities. Skin no rashes or lesions noted Neuro oriented x3, CN's II-XII intact bilaterally and moves all extremities Psych cooperative and affect normal Charges/Coding Visit Charges Inpatient E&M: 40422 Subs Hosp L2
[2022-10-07] MEDS: Nystatin Powder 15gm Bottle 1 APPLIC TOPICAL ×2 (08:54→21:20)
[2022-10-07] MEDS: DULoxetine Hcl 60 MG Capsule PO ×2 (08:54→21:19)
[2022-10-07] MEDS: Pantoprazole Sodium 40 MG Tablet PO (08:54)
[2022-10-07] MEDS: Carvedilol 25 MG Tablet PO ×2 (08:54→16:07)
[2022-10-07] MEDS: TICAGRELOR 90 MG TABLET PO ×2 (08:54→21:19)
[2022-10-07] MEDS: Aspirin 81 MG TAB.CHEW PO (08:54)
[2022-10-07] MEDS: levoFLOXacin IV 750 MG/150 ML BAG 100 MG IV (08:55)
[2022-10-07] MEDS: Amantadine 100 MG Capsule PO (08:55)
[2022-10-07] MEDS: Menthol/Lanolin/Calamine/Znox 113 GM Tube 1 APPLIC TOPICAL ×2 (08:55→21:19)
[2022-10-07] MEDS: Enoxaparin 40 MG/0.4 ML Syringe SC ×2 (08:55→21:20)
[2022-10-07] MEDS: Senna/Docusate Sodium 1 Tablet PO ×2 (08:55→21:18)
[2022-10-07] MEDS: SACUBITRIL/VALSARTAN 49-51 MG TABLET 1 EACH PO ×2 (08:55→21:19)
--- NOTE | 2022-10-07 10:12 | WOUNDNOTE ---
Colostomy appliance intact to the left lower abdomen. small amount of soft brown stool emptied from appliance. will monitor.
[2022-10-07 12:06] LABS: Bedside Glucose 400 mg/dL (74-106)
--- NOTE | 2022-10-07 15:35 | CASEMGMT ---
CAMILA CM updated by hospitalist for palliative consult, order received. Palliative screening tool completed and referral sent to [facility].
[2022-10-07 16:31] LABS: Bedside Glucose 337 mg/dL (74-106)
[2022-10-07] MEDS: FLUoxetine 20 MG Capsule 60 MG PO (21:18)
[2022-10-07] MEDS: traZODone 50 MG Tablet 150 MG PO (21:18)
[2022-10-07] MEDS: Pravastatin 80 MG Tablet PO (21:19)
[2022-10-07] MEDS: Pramipexole Di-HCl 0.25 MG Tablet PO (21:19)
[2022-10-07] MEDS: Tamsulosin HCl 0.4 MG Capsule PO (21:19)
[2022-10-07] MEDS: Insulin Glargine-YFGN 100 UNIT/ML Pen 28 UNIT SC (21:20)
[2022-10-07 22:05] LABS: Bedside Glucose 359 mg/dL (74-106)
[2022-10-08] VITALS (9 sets, daily range): BP systolic 127–155; BP diastolic 63–99; PULSE 89–101; RESP 12–32; TEMP 36.7–37; O2SAT 88–95
[2022-10-08] MEDS: Ipratropium/Albuterol Sulfate 3 ML AMPUL.NEB INHALATION ×4 (03:48→15:18)
[2022-10-08] MEDS: Furosemide 100 MG/10 ML Vial 60 MG IV ×2 (05:07→14:14)
[2022-10-08] MEDS: 0.9% Saline Lock 10 ML Syringe IV ×2 (05:07→10:37)
[2022-10-08 05:59] LABS: Absolute Lymphocyte Count 1.37 X10^3/uL (0.83-4.51); Basophil# 0.05 X10^3/uL; Basophil% 0.5 % (0-1); Eosinophil# 0.08 X10^3/uL; Eosinophils% 0.9 % (0-5); Hematocrit 38.7 % (40-54); Hemoglobin 11.9 g/dL (13.0-16.5); Lymphocyte # 1.37 X10^3/ul (0.83-4.51); Lymphocyte % 14.7 % (19-41); Mean Corp Hgb Conc 30.7 g/dL (32-36); Mean Corpuscular Hgb 29.1 pg (27.0-32.0); Mean Corpuscular Volume 94.6 fL (80-94); Monocyte% 8.6 % (0-10); NRBC Flagged by Analyzer 0 % (0-5); Neutrophil # 6.97 X10^3/uL (2.7-7.7); Neutrophil % 74.9 % (47-70); Platelet Count 182 K/mm3 (150-450); RBC Distribution Width CV 14.6 % (11.6-14.6); RBC Distribution Width SD 50.4 fl (35.1-43.9); Red Blood Count 4.09 M/mm3 (4.6-6.2); White Blood Count 9.3 K/mm3 (4.4-11.0)
[2022-10-08] MEDS: Insulin Lispro 100 UNIT/ML INSULN.PEN SC ×3 (06:41→15:58)
[2022-10-08 07:02] LABS: Anion Gap 10 (5-15); BUN 54 mg/dL (7-18); BUN/Creat Ratio 33.5 RATIO (10-20); Calcium,Total 8.9 mg/dL (8.5-10.1); Chloride 108 mmol/L (98-107); Creatinine, Serum 1.61 mg/dL (0.70-1.30); EST Glomerular Filtration Rate 45 mL/min (>60); Est Glom Filt Rate - Afr Amer 55 mL/min (>60); Estimated Creatinine Clearance 48.22 ml/min; Glucose 229 mg/dL (74-106); Potassium 3.2 mmol/L (3.5-5.1); Sodium Level 144 mmol/L (136-145)
[2022-10-08 07:06] LABS: Bedside Glucose 204 mg/dL (74-106)
--- NOTE | 2022-10-08 07:49 | PN.HOSP_ITS ---
Reason for Visit Reason for Visit: Diagnoses Sepsis, unspecified organism (10/05/22) Acute respiratory failure with hypoxia (10/05/22) Subjective Subjective Patient seen condition significantly improved. Plan is for patient to be discharged back to his [facility] Objective Data Objective Data Vital Signs: Vital Signs Temp Pulse Resp BP Pulse Ox O2 Del Method O2 Flow Rate 98.4 F 97 30 H 145/91 H 91 Room Air 6 10/08/22 05:06 10/08/22 06:57 10/08/22 06:57 10/08/22 05:06 10/08/22 06:57 10/08/22 06:57 10/06/22 21:30 FiO2 90 10/08/22 04:00 Oxygen Flow Rate (L/min) 6 Oxygen Delivery Method Room Air Weight: 143.8 kg Body Mass Index (BMI) 40.6 Intake & Output: Intake and Output for Last 24 Hours 10/06/22 10/07/22 10/08/22 23:59 23:59 23:59 Intake Total 660 / 660 1380 / 1380 250 / 250 Output Total 5925 / 5925 4900 / 4900 1100 / 1100 Balance -5265 / -5265 -3520 / -3520 -850 / -850 Lab / Micro Data Result Diagrams: 10/08/22 04:43 10/08/22 04:43 Labs: Laboratory Results - last 24 hr 10/07/22 11:33: POC Glucose 400 H 10/07/22 16:05: POC Glucose 337 H 10/07/22 21:01: POC Glucose 359 H 10/08/22 04:43: WBC 9.3, RBC 4.09 L, Hgb 11.9 L, Hct 38.7 L, MCV 94.6 H, MCH 29.1, MCHC 30.7 L, RDW Std Deviation 50.4 H, RDW Coeff of Sherin 14.6, Plt Count 182, MPV 12.0, Immature Gran % (Auto) 0.400, Neut % (Auto) 74.9 H, Lymph % (Auto) 14.7 L, [place] % (Auto) 8.6, Eos % (Auto) 0.9, Baso % (Auto) 0.5, Absolute Neuts (auto) 7.0, Absolute Lymphs (auto) 1.37, Nucleated RBC % 0 10/08/22 04:43: Sodium 144, Potassium 3.2 L, Chloride 108 H, Carbon Dioxide 26.0, Anion Gap 10, BUN 54 H, Creatinine 1.61 H, Estim Creat Clear Calc 48.22, Est GFR (MDRD) Af Amer 55 L, Est GFR (MDRD) Non-Af 45 L, BUN/Creatinine Ratio 33.5 H, Glucose 229 H, Calcium 8.9 10/08/22 06:39: POC Glucose 204 H Micro: Microbiology 10/04/22 22:50 Blood Culture (Wb) - Arm Left Blood Culture - Preliminary No growth in 48 hours. 10/04/22 23:10 Blood Culture (Wb) - Anticubital Left Blood Culture - Preliminary No growth in 48 hours. 10/05/22 13:28 Mucosa - Nose Respiratory Panel (PCR) - Final 10/05/22 04:20 Urine Catheter - Lane Legionella Antigen - Final 10/05/22 04:20 Urine Catheter - Lane Streptococcus pneumoniae Antigen (M - Final 10/04/22 23:01 Nasal Secretion SARS-CoV-2 & FLU Antigen (Rapid) - Final Physical Exam Narrative GENERAL: Awake and cooperative HEENT: Atraumatic; normocephalic EYES; Anicteric, Normal Conjunctiva NECK; supple, normal thyroid, RESPIRATORY: Diminished to auscultation CARDIOVASCULAR: Regular S1 S2, GI: soft, normoactive bowel sounds, : No Renal angle tenderness; EXTREMITIES: No edema, no clubbing, MUSCULOSKELETAL: no muscle wasting NEURO: Awake; no lateralizing signs. SKIN: No Rash PSYCH; Flat affect Assessment & Plan Assessment/Plan (1) Acute respiratory failure with hypoxia: PLAN: Plan Patient is a 72-year-old gentleman with past medical history segment for chronic congestive heart failure with reduced ejection fraction EF of 45% admitted with progressive shortness of breath 1. Acute hypoxic respiratory failure ? Secondary to a combination of congestive heart failure COPD as well as suspected JIM with obesity hypoventilation syndrome patient has been managed with noninvasive ventilation BiPAP with consultation placed to pulmonary medicine -10/07/2022; Patient seen has been weaned off BiPAP. Patient is much more interactive compared to the day prior. Did discuss with family about obtaining palliative care consultation 2. Acute congestive heart failure with reduced ejection fraction ? EF obtained on July 2022 was 45%. Patient has been managed with diuretics as well as noninvasive ventilation with BiPAP 3. Suspected pneumonia ? Patient was found to have bibasilar infiltrates. There was a question whether this was atelectasis fluid or pneumonia. Patient remains on antibiotics cultures so far negative to date 4.? Coronary artery disease ? With previous CABG 5.? Diabetes mellitus type 2 ? Did continue patient long-acting insulin in addition to scheduled Premeal insulin and correction factor sliding scale.? Was placed on Accu-Cheks before meals and at bedtime 6.? Obstructive sleep apnea ? Patient is on CPAP at night 7.? Dyslipidemia ? Patient is on pravastatin plan is to continue 8.? BPH ? Patient is on tamsulosin did continue 9.? History of previous CVA ? Patient apparently is bedridden has an indwelling chronic Lane catheter as well as an ostomy.? Patient is on antiplatelet therapy as well as statin therapy did continue 10.? Class III obesity with BMI of 43.2 ? Weight loss advised 11.? Hypertension - Blood pressure controlled, home medications continued with dose adjustment as needed 12. Diabetic polyneuropathy ? Patient is on gabapentin 13. Left leg syndrome ? Patient is on Mirapex 14. Anemia - Secondary to chronic disorder monitoring H&H and transfuse if patient becomes symptomatic or hemoglobin falls below 7 15. DVT prophylaxis ? Lovenox 40 mg SC every 12 CODE STATUS DNR CCA no intubation discussed with family Time spent in the patient's overall evaluation,decision-making process, review of diagnostic data, adjustment of management, discussion with other providers, nursing nursing and ancillary staff involved in patient's care documentation, 45 Minutes Charges/Coding Visit Charges Inpatient E&M: 80307 Subs Hosp L2
--- NOTE | 2022-10-08 08:00 | PN.CC_ITS ---
Assessment & Plan Assessment/Plan (1) Acute respiratory failure with hypoxia: PLAN: Plan RECOMMENDATIONS: 1. Continue BiPAP therapy with naps and nightly. 2. Continue diuresis as tolerated by hemodynamics and renal function. 3. Continue bronchodilators along with steroids. Provide 5-day burst of prednisone 40 mg daily. 4. Continue empiric antimicrobials. 5. Continue appropriate DVT prophylaxis. 6. Encourage incentive spirometer use and mobilize patient as tolerated. 7. Outpatient pulmonary follow-up within 2 weeks of discharge is recommended. 8. We will sign off at this time. Please call with any additional questions. IMPRESSIONS: 1.??Acute hypoxemic respiratory failure Unclear precipitating etiology.? While CHF exacerbation is certainly a possibility, contributions from underlying obstructive lung disease and pneumonia cannot be discounted.? Nevertheless, given the rapidity with which the patient improved clinically with IV diuretics and BiPAP, it is certainly most plausible that underlying CHF was the main contributing factor.?Recommend continuing baseline cardiac meds including diuretic therapy as tolerated by hemodynamics and renal function. In addition, I agree with continuing scheduled bronchodilators, steroids and empiric antimicrobials. Ultimately, I would recommend that the patient follow-up in the pulmonary medicine clinic after discharge so that formal PFTs can be obtained. Perform walking oximetry study prior to consideration for discharge home. 2.??History of chronic tobacco dependency Tobacco cessation counseling was provided.? Nicotine replacement therapy can be offered to the patient while admitted to the hospital.? Again, I would recommend outpatient pulmonary follow-up. 3.??History of obstructive sleep apnea Recommend continuing Pap therapy with naps and nightly.? The patient does report compliance with the use of nocturnal CPAP therapy. 4.??History of coronary artery disease status post CABG/history of CVA/hypertension/hyperlipidemia/diabetes mellitus/morbid obesity Complicates care, management, recovery and prognosis.? Continue home medications as indicated. This note was generated with [employer] dictation software. It may contain incorrect words, spelling, and punctuation that were not noted in checking the note before signing. Subjective Subjective The patient was seen and examined at the bedside this morning. Events from the last 24 hours have been reviewed. The patient is currently afebrile, hem odynamically stable and maintaining appropriate oxygen saturations on room air. The patient is currently documented to be overall net -9.4 L for the hospitalization. Objective Data Objective Data The patient's most recent lab work, culture data and imaging studies have all been personally reviewed. Surface echocardiogram from July 2022 demonstrated an ejection fraction of 45% with stage I diastolic dysfunction. In fectious work-up has been unrevealing to date. Vital Signs: Vital Signs Temp Pulse Resp BP Pulse Ox O2 Del Method O2 Flow Rate 98.4 F 97 30 H 145/91 H 91 Room Air 6 10/08/22 05:06 10/08/22 06:57 10/08/22 06:57 10/08/22 05:06 10/08/22 06:57 10/08/22 06:57 10/06/22 21:30 FiO2 90 10/08/22 04:00 Oxygen Flow Rate (L/min) 6 Oxygen Delivery Method Room Air Weight: 317 lb 0.395 oz Body Mass Index (BMI) 40.6 Intake & Output: Intake and Output for Last 24 Hours 10/06/22 10/07/22 10/08/22 23:59 23:59 23:59 Intake Total 660 / 660 1380 / 1380 250 / 250 Output Total 5925 / 5925 4900 / 4900 1100 / 1100 Balance -5265 / -5265 -3520 / -3520 -850 / -850 Lab / Micro Data Attestation: I reviewed the patient's lab results. Result Diagrams: 10/08/22 04:43 10/08/22 04:43 Labs: Laboratory Results - last 24 hr 10/07/22 11:33: POC Glucose 400 H 10/07/22 16:05: POC Glucose 337 H 10/07/22 21:01: POC Glucose 359 H 10/08/22 04:43: WBC 9.3, RBC 4.09 L, Hgb 11.9 L, Hct 38.7 L, MCV 94.6 H, MCH 29.1, MCHC 30.7 L, RDW Std Deviation 50.4 H, RDW Coeff of Sherin 14.6, Plt Count 182, MPV 12.0, Immature Gran % (Auto) 0.400, Neut % (Auto) 74.9 H, Lymph % (Auto) 14.7 L, [place] % (Auto) 8.6, Eos % (Auto) 0.9, Baso % (Auto) 0.5, Absolute Neuts (auto) 7.0, Absolute Lymphs (auto) 1.37, Nucleated RBC % 0 10/08/22 04:43: Sodium 144, Potassium 3.2 L, Chloride 108 H, Carbon Dioxide 26.0, Anion Gap 10, BUN 54 H, Creatinine 1.61 H, Estim Creat Clear Calc 48.22, Est GFR (MDRD) Af Amer 55 L, Est GFR (MDRD) Non-Af 45 L, BUN/Creatinine Ratio 33.5 H, Glucose 229 H, Calcium 8.9 10/08/22 06:39: POC Glucose 204 H Micro: Microbiology 10/04/22 22:50 Blood Culture (Wb) - Arm Left Blood Culture - Preliminary No growth in 48 hours. 10/04/22 23:10 Blood Culture (Wb) - Anticubital Left Blood Culture - Preliminary No growth in 48 hours. 10/05/22 13:28 Mucosa - Nose Respiratory Panel (PCR) - Final 10/05/22 04:20 Urine Catheter - Lane Legionella Antigen - Final 10/05/22 04:20 Urine Catheter - Lane Streptococcus pneumoniae Antigen (M - Final 10/04/22 23:01 Nasal Secretion SARS-CoV-2 & FLU Antigen (Rapid) - Final Physical Exam Const alert and no apparent distress Constitutional Narrative: Morbidly obese. Sitting upright in bed. General Appearance: cooperative HEENT normocephalic and head/scalp atraumatic Eyes PERRL, EOMs intact bilaterally and conjunctivae normal Neck supple General: trachea midline Chest inspection of chest normal Resp normal respiratory effort Auscultation: wheezes and diminished lung sounds Cardio regular rate and regular rhythm GI normal to inspection, nondistended, normoactive bowel sounds Inspection: ostomy present Extremity Extremity Narrative: Wrapped lower extremities. Skin no rashes or lesions noted Neuro oriented x3, CN's II-XII intact bilaterally and moves all extremities Psych cooperative and affect normal Charges/Coding Visit Charges Inpatient E&M: 48691 Subs Hosp L2
--- NOTE | 2022-10-08 09:06 | WOUNDNOTE ---
Colostomy appliance emptied for a moderate amount of soft brown unformed stool. appliance remains intact. will continue to monitor.
--- NOTE | 2022-10-08 09:14 | PCM.TXEXTCAR ---
Diet Diet Order/Speech Therapy: 10/05/22 12:05 Diet: Cardiac: Calorie-Controlled Is pt able to select menu?: No Diet Comments: pt diabetic How many daily calories?: 1800 calorie Routine Orders/Code Status O2 Frequency: PRN Keep PO Greater than or Equal to (%): 90 Code Status: DNRCC-A Wound(s) left outer leg: Wound Type: Abrasion Dressing Change: Adaptic dry dressing right elbow: Wound Type: Skin Tear Therapies Physical Therapy: Eval and Treat Occupational Therapy: Eval and Treat Problem/Diagnosis (1) Acute respiratory failure with hypoxia: Status: Acute Code(s): J96.01 - Acute respiratory failure with hypoxia (2) Chronic pain: Status: Chronic Code(s): G89.29 - Other chronic pain Plan Patient is a 72-year-old gentleman with past medical history segment for chronic congestive heart failure with reduced ejection fraction EF of 45% admitted with progressive shortness of breath 1. Acute hypoxic respiratory failure ? Secondary to a combination of congestive heart failure COPD as well as suspected JIM with obesity hypoventilation syndrome patient has been managed with noninvasive ventilation BiPAP with consultation placed to pulmonary medicine -10/07/2022; Patient seen has been weaned off BiPAP. Patient is much more interactive compared to the day prior. Did discuss with family about obtaining palliative care consultation 2. Acute congestive heart failure with reduced ejection fraction ? EF obtained on July 2022 was 45%. Patient has been managed with diuretics as well as noninvasive ventilation with BiPAP 3. Suspected pneumonia ? Patient was found to have bibasilar infiltrates. There was a question whether this was atelectasis fluid or pneumonia. Patient remains on antibiotics cultures so far negative to date 4.? Coronary artery disease ? With previous CABG 5.? Diabetes mellitus type 2 ? Did continue patient long-acting insulin in addition to scheduled Premeal insulin and correction factor sliding scale.? Was placed on Accu-Cheks before meals and at bedtime 6.? Obstructive sleep apnea ? Patient is on CPAP at night 7.? Dyslipidemia ? Patient is on pravastatin plan is to continue 8.? BPH ? Patient is on tamsulosin did continue 9.? History of previous CVA ? Patient apparently is bedridden has an indwelling chronic Lane catheter as well as an ostomy.? Patient is on antiplatelet therapy as well as statin therapy did continue 10.? Class III obesity with BMI of 43.2 ? Weight loss advised 11.? Hypertension - Blood pressure controlled, home medications continued with dose adjustment as needed 12. Diabetic polyneuropathy ? Patient is on gabapentin 13. Left leg syndrome ? Patient is on Mirapex 14. Anemia - Secondary to chronic disorder monitoring H&H and transfuse if patient becomes symptomatic or hemoglobin falls below 7 15. DVT prophylaxis ? Lovenox 40 mg SC every 12 CODE STATUS DNR CCA no intubation discussed with family Time spent in the patient's overall evaluation,decision-making process, review of diagnostic data, adjustment of management, discussion with other providers, nursing nursing and ancillary staff involved in patient's care documentation, 45 Minutes Allergies/Procedures Done in Hospital Allergies atorvastatin Allergy (Verified 10/04/22 23:53) PT UNSURE OF REACTION cilostazol Allergy (Verified 10/04/22 23:53) Hives colestipol Allergy (Verified 10/04/22 23:53) Hives diltiazem Allergy (Verified 10/04/22 23:53) Hives gemfibrozil Allergy (Verified 10/04/22 23:53) Hives naproxen [From Naprosyn] Allergy (Verified 10/04/22 23:53) Hives niacin Allergy (Verified 10/04/22 23:53) PT UNSURE OF REACTION Nitrate Analogues Allergy (Verified 10/04/22 23:53) Hives Penicillins Allergy (Verified 10/04/22 23:53) Hives pravastatin Allergy (Verified 10/04/22 23:53) NEEDS FOLLOW-UP procainamide Allergy (Verified 10/04/22 23:53) Hives procaine Allergy (Verified 10/04/22 23:53) NEEDS FOLLOW-UP rosuvastatin Allergy (Verified 10/04/22 23:53) Hives simvastatin Allergy (Verified 10/04/22 23:53) Hives isosorbide Adverse Reaction (Severe, Verified 10/04/22 23:53) Unknown Type of Care/Length of Stay Estimated LOS: More Than 30 Days Type of Care Needed: Intermediate Rehab Potential: Fair Prognosis: Fair Additional Orders/Day of Discharge Day of Discharge: 10/08/22 Dietary and Speech Recommendations Dietitian Recommendations/Changes: Recommend diet as tolerated to 2000 calorie/consistent carbohydrate; cardiac/sodium-restricted with 1600 ml/day fluid restriction; consider MICROBIOLOGY TECHNICIAN swallowing evaluation as needed. ONS as needed once Po established at meals. Discharge Plan Admission Admit Date/Time: 10/05/22 02:50 Attending Provider: Aris Brownlee Primary Care Provider: Phillip Lindo Consulting Providers: Mir Hunter ; Griffin Swain ; Tyree Bridges ; Randy Clayton ; Oscar Bhagat ; Salome Angulo PROFESSIONAL ARCHITECT ; Biju Solo Discharge Orders/Prescriptions Prescriptions: New ipratropium-albuterol 0.5 mg-3 mg(2.5 mg base)/3 mL Solution For Nebulization 3 ml inhalation Q4HWA.RT Qty: 0 0RF albuterol sulfate 2.5 mg /3 mL (0.083 %) Solution For Nebulization 2.5 mg inhalation Q2H PRN PRN (Reason: SOB/Wheezing) Qty: 0 0RF prednisone 20 mg Tablet 40 mg PO BREAKFAST Qty: 0 0RF insulin lispro [Humalog KwikPen Insulin] 100 unit/mL Insulin Pen See Protocol subcut ACHS Qty: 0 0RF Protocol: 4. Sliding Scale Insulin High-Med Dosing Condition: 150-199 mg/dl = 2 units Condition: 200-259 mg/dl = 4 units Condition: 260-324 mg/dl = 6 units Condition: 325-374 mg/dl = 8 units Condition: 375-409 mg/dl = 10 units Condition: 410-449 mg/dl = 11 units Condition: Greater than 449 call physician Protocol Text: - Use for Total Daily Dose of Insulin 56-80 units - Patient who are insulin resistant or septic HIGH MEDIUM DOSING ALGORITHM menthol-zinc oxide [Calmoseptine] 0.44-20.6 % Ointment 1 applic topical BID Qty: 0 0RF Protocol: *Topical Application Instructions APPLICATION INSTRUCTIONS: groin/ coccyx cefdinir 300 mg capsule 300 mg PO BID Qty: 10 0RF levofloxacin 750 mg tablet 750 mg PO DAILY Qty: 5 0RF Continued aluminum-magnesium hydroxide 225-200 mg/5 mL suspension 30 ml PO Q4H PRN (Reason: GI distress) bisacodyl 10 mg suppository 10 mg [place] DAILY PRN (Reason: constipaiton) duloxetine 60 mg capsule,delayed release(DR/EC) 60 mg PO BID Fleet Enema 19-7 gram/118 mL enema 118 ml IL ONCE PRN (Reason: Constipation) guaifenesin 200 mg/5 mL liquid 10 mg PO Q4H PRN (Reason: Cough) magnesium hydroxide [Milk of Magnesia] 400 mg/5 mL suspension 30 ml PO DAILY PRN (Reason: consipation) nystatin 100,000 unit/gram powder 1 applic topical DAILY PRN (Reason: excoriation) fluoxetine 40 mg capsule 60 mg PO QPM trazodone 50 mg tablet 150 mg PO QHS Entresto 49-51 mg tablet 1 tab PO BID Qty: 60 11RF amantadine HCl 100 MG capsule 100 mg PO DAILY pravastatin 80 MG tablet 80 mg PO QHS pantoprazole 40 MG tablet 40 mg PO DAILY pramipexole 0.25 MG tablet 0.25 mg PO QHS nitroglycerin 0.4 MG tablet, sublingual 0.4 mg sublingual PRN PRN (Reason: CHEST PAIN) aspirin 81 MG tablet,chewable 81 mg PO DAILY@0800 sennosides-docusate sodium 1 EACH tablet 2 ea PO BID melatonin 3 MG tablet,disintegrating 3 mg PO QHS tamsulosin 0.4 mg Capsule 0.4 mg PO QHS fluticasone propionate 110 mcg/actuation Hfa Aerosol Inhaler 1 puff INHALATION BID insulin aspart U-100 [Novolog FlexPen U-100 Insulin] 100 unit/mL (3 mL) Insulin Pen 15 unit SUBCUT TIDCM Brilinta 90 mg Tablet 90 mg PO BID carvedilol 25 mg Tablet 25 mg PO BID Qty: 0 0RF potassium chloride 20 mEq tablet,ER particles/crystals 40 meq PO DAILY 90 Days Qty: 90 0RF insulin glargine [Lantus Solostar U-100 Insulin] 100 unit/mL (3 mL) Insulin Pen 28 unit SUBCUT QPM spironolactone 25 mg tablet 25 mg PO DAILY Qty: 30 0RF cetirizine [Zyrtec] 10 mg Tablet 10 mg PO DAILY gabapentin 300 mg capsule 300 mg PO DAILY acetaminophen 500 MG tablet 650 mg PO Q4H PRN PRN (Reason: Mild Pain (-08/15)) furosemide 40 mg tablet 40 mg PO BID Changed oxycodone 5 MG tablet 5 mg PO TID 2 Days Qty: 6 0RF Discontinued insulin aspart U-100 [Novolog FlexPen U-100 Insulin] 100 UNITS/ML insulin pen See Protocol SC TIDCM Protocol: 6. Sliding Scale Insulin Custom Condition: mg/dl range Dose/Route: Number of Units Condition: 150-199 Dose/Route: 2 Condition: 200-259 Dose/Route: 4 Condition: 260-324 Dose/Route: 6 Condition: 325-374 Dose/Route: 8 Condition: 375-409 Dose/Route: 10 Condition: 410-449 Dose/Route: 11 Protocol Text: Custom Sliding Scale Rx Instructions: sliding scale levofloxacin 750 mg tablet 750 mg PO DAILY Qty: 9 0RF Referrals / Follow Up: Phillip Lindo MD [Primary Care Provider] - Within 2 Weeks Disposition Disposition (needs filled in before D/C Order can be placed): Shelter Facility
--- NOTE | 2022-10-08 09:25 | PCM.DC.SUM ---
Providers Date of Admission: 10/05/22 Date of Discharge: 10/08/22 Primary Care Physician: Dr. Phillip Lindo MD Consultations 10/05/22 03:51 Consult: Onc/Wound/economic development coordinator Routine Comment: Reason for Consult:: Ostomy care 10/05/22 12:42 Consult: Ticket Counter / Pulmonary Medicine Routine Consulting Provider: [facility] Reason for Consult: ? need for BIPAP vs CPAP at [facility], ? COPD,has dx JIM EMERGENT Consult: No MD Notified: Yes Date Notified: 10/05/22 Time Notified: 13:13 Method of Notification: Text Reason For Visit: ACUTE HYPOXEMIC RESPIRATORY FAILURE Diagnosis Discharge Diagnosis (1) Acute respiratory failure with hypoxia: Status: Acute Code(s): J96.01 - Acute respiratory failure with hypoxia (2) Chronic pain: Status: Chronic Code(s): G89.29 - Other chronic pain Plan Patient is a 72-year-old gentleman with past medical history segment for chronic congestive heart failure with reduced ejection fraction EF of 45% admitted with progressive shortness of breath 1. Acute hypoxic respiratory failure ? Secondary to a combination of congestive heart failure COPD as well as suspected IJM with obesity hypoventilation syndrome patient has been managed with noninvasive ventilation BiPAP with consultation placed to pulmonary medicine -10/07/2022; Patient seen has been weaned off BiPAP. Patient is much more interactive compared to the day prior. Did discuss with family about obtaining palliative care consultation 2. Acute congestive heart failure with reduced ejection fraction ? EF obtained on July 2022 was 45%. Patient has been managed with diuretics as well as noninvasive ventilation with BiPAP 3. Suspected pneumonia ? Patient was found to have bibasilar infiltrates. There was a question whether this was atelectasis fluid or pneumonia. Patient remains on antibiotics cultures so far negative to date 4.? Coronary artery disease ? With previous CABG 5.? Diabetes mellitus type 2 ? Did continue patient long-acting insulin in addition to scheduled Premeal insulin and correction factor sliding scale.? Was placed on Accu-Cheks before meals and at bedtime 6.? Obstructive sleep apnea ? Patient is on CPAP at night 7.? Dyslipidemia ? Patient is on pravastatin plan is to continue 8.? BPH ? Patient is on tamsulosin did continue 9.? History of previous CVA ? Patient apparently is bedridden has an indwelling chronic Lane catheter as well as an ostomy.? Patient is on antiplatelet therapy as well as statin therapy did continue 10.? Class III obesity with BMI of 43.2 ? Weight loss advised 11.? Hypertension - Blood pressure controlled, home medications continued with dose adjustment as needed 12. Diabetic polyneuropathy ? Patient is on gabapentin 13. Left leg syndrome ? Patient is on Mirapex 14. Anemia - Secondary to chronic disorder monitoring H&H and transfuse if patient becomes symptomatic or hemoglobin falls below 7 15. DVT prophylaxis ? Lovenox 40 mg SC every 12 CODE STATUS DNR CCA no intubation discussed with family Time spent in the patient's overall evaluation,decision-making process, review of diagnostic data, adjustment of management, discussion with other providers, nursing nursing and ancillary staff involved in patient's care documentation, 45 Minutes Medications at Discharge Home Medications amantadine HCl 100 mg capsule 100 mg PO DAILY [place]IN[place] 04/17/18 pantoprazole 40 mg tablet,delayed release 40 mg PO DAILY STOMACH 04/17/18 pramipexole 0.25 mg tablet 0.25 mg PO QHS [place]INSONS 04/17/18 pravastatin 80 mg tablet 80 mg PO QHS CHOLESTEROL 04/17/18 nitroglycerin 0.4 mg sublingual tablet 0.4 mg sublingual PRN PRN CHEST PAIN 02/20/19 aspirin 81 mg chewable tablet 81 mg PO DAILY@0800 heart [facility] 02/24/19 sennosides 8.6 mg-docusate sodium 50 mg tablet 2 ea PO BID constipation 01/02/20 melatonin 3 mg disintegrating tablet 3 mg PO QHS sleep 09/14/20 fluticasone propionate 110 mcg/actuation HFA aerosol inhaler 1 puff inhalation BID allergies 02/17/21 insulin aspart U-100 100 unit/mL (3 mL) subcutaneous pen (Novolog FlexPen U-100 Insulin aspart) 15 unit subcut TIDCM blood sugar 02/17/21 tamsulosin 0.4 mg capsule 0.4 mg PO QHS prostate 02/17/21 ticagrelor 90 mg tablet (Brilinta) 90 mg PO BID heart 02/17/21 carvedilol 25 mg tablet 25 mg PO BID #0 tabs 02/20/21 potassium chloride 20 mEq tablet,extended release(part/cryst) 40 meq PO DAILY supplement 90 days #90 tabs 02/20/21 insulin glargine 100 unit/mL (3 mL) subcutaneous pen (Lantus Solostar U-100 Insulin) 28 unit subcut QPM DM 04/25/21 spironolactone 25 mg tablet 25 mg PO DAILY #30 tabs 04/29/21 aluminum-magnesium hydroxide 225 mg-200 mg/5 mL oral suspension 30 ml PO Q4H PRN GI distress 10/11/21 bisacodyl 10 mg rectal suppository 10 mg MO DAILY PRN constipaiton 10/11/21 duloxetine 60 mg capsule,delayed release 60 mg PO BID depression 10/11/21 fluoxetine 40 mg capsule 60 mg PO QPM depression 10/11/21 guaifenesin 200 mg/5 mL oral liquid 10 mg PO Q4H PRN Cough 10/11/21 magnesium hydroxide 400 mg/5 mL oral suspension (Milk of Magnesia) 30 ml PO DAILY PRN consipation 10/11/21 nystatin 100,000 unit/gram topical powder 1 applic topical DAILY PRN excoriation 10/11/21 sacubitril 49 mg-valsartan 51 mg tablet (Entresto) 1 tab PO BID #60 tabs 10/11/21 sodium phosphates 19 gram-7 gram/118 mL enema (Fleet Enema) 118 ml MO ONCE PRN Constipation 10/11/21 trazodone 50 mg tablet 150 mg PO QHS sleep 10/11/21 acetaminophen 500 mg tablet 650 mg PO Q4H PRN PRN Mild Pain (1-08/15) 07/27/22 cetirizine 10 mg tablet (Zyrtec) 10 mg PO DAILY sinus 07/27/22 gabapentin 300 mg capsule 300 mg PO DAILY neuropathy 07/27/22 furosemide 40 mg tablet 40 mg PO BID CHF 10/05/22 albuterol sulfate 2.5 mg/3 mL (0.083 %) solution for nebulization 2.5 mg (3 mL) inhalation Q2H PRN PRN SOB/Wheezing #0 mL 10/08/22 cefdinir 300 mg capsule 300 mg PO BID #10 caps 10/08/22 insulin lispro 100 unit/mL subcutaneous pen (Humalog KwikPen (U-100) Insulin) See Protocol subcut ACHS #0 mL 10/08/22 ipratropium 0.5 mg-albuterol 3 mg (2.5 mg base)/3 mL nebulization soln 3 ml inhalation Q4HWA.RT #0 mL 10/08/22 levofloxacin 750 mg tablet 750 mg PO DAILY #5 tabs 10/08/22 menthol 0.44 %-zinc oxide 20.6 % topical ointment (Calmoseptine) 1 applic topical BID #0 grams 10/08/22 oxycodone 5 mg tablet 5 mg PO TID 2 days #6 tabs 10/08/22 prednisone 20 mg tablet 40 mg PO BREAKFAST #0 tabs 10/08/22 Hospital Course Summary of Care Provided Minutes Spent on Discharge: 45 Physical Exam Narrative GENERAL: Awake and cooperative HEENT: Atraumatic; normocephalic EYES; Anicteric, Normal Conjunctiva NECK; supple, normal thyroid, RESPIRATORY: Diminished to auscultation CARDIOVASCULAR: Regular S1 S2, GI: soft, normoactive bowel sounds, : No Renal angle tenderness; EXTREMITIES: No edema, no clubbing, MUSCULOSKELETAL: no muscle wasting NEURO: Awake; no lateralizing signs. SKIN: No Rash PSYCH; Flat affect Weight / BMI Weight Weight: 143.8 kg Body Mass Index (BMI) 40.6 ABG / Lab / Microbiology Data Result Diagrams: 10/08/22 04:43 10/08/22 04:43 Laboratory: Laboratory Results - last 24 hr 10/07/22 11:33: POC Glucose 400 H 10/07/22 16:05: POC Glucose 337 H 10/07/22 21:01: POC Glucose 359 H 10/08/22 04:43: WBC 9.3, RBC 4.09 L, Hgb 11.9 L, Hct 38.7 L, MCV 94.6 H, MCH 29.1, MCHC 30.7 L, RDW Std Deviation 50.4 H, RDW Coeff of Sherin 14.6, Plt Count 182, MPV 12.0, Immature Gran % (Auto) 0.400, Neut % (Auto) 74.9 H, Lymph % (Auto) 14.7 L, [place] % (Auto) 8.6, Eos % (Auto) 0.9, Baso % (Auto) 0.5, Absolute Neuts (auto) 7.0, Absolute Lymphs (auto) 1.37, Nucleated RBC % 0 10/08/22 04:43: Sodium 144, Potassium 3.2 L, Chloride 108 H, Carbon Dioxide 26.0, Anion Gap 10, BUN 54 H, Creatinine 1.61 H, Estim Creat Clear Calc 48.22, Est GFR (MDRD) Af Amer 55 L, Est GFR (MDRD) Non-Af 45 L, BUN/Creatinine Ratio 33.5 H, Glucose 229 H, Calcium 8.9 10/08/22 06:39: POC Glucose 204 H Microbiology: Microbiology 10/04/22 22:50 Blood Culture (Wb) - Arm Left Blood Culture - Preliminary No growth in 48 hours. 10/04/22 23:10 Blood Culture (Wb) - Anticubital Left Blood Culture - Preliminary No growth in 48 hours. 10/05/22 13:28 Mucosa - Nose Respiratory Panel (PCR) - Final 10/05/22 04:20 Urine Catheter - Lane Legionella Antigen - Final 10/05/22 04:20 Urine Catheter - Lane Streptococcus pneumoniae Antigen (M - Final 10/04/22 23:01 Nasal Secretion SARS-CoV-2 & FLU Antigen (Rapid) - Final D/C Instructions Discharge Diet: 1800 Calorie Control Diet, 8 Cup Fluid Restriction and 2000 mg Sodium Diet Discharge Activity: Return to Normal Activity Call your doctor if you observe: Fever of 101 or Higher, Shortness of breath, Fainting spells and Chest pain Meaningful Use Info Meaningful Use Diagnoses (Choose all that apply): CHF CHF DANII/ARB ordered at discharge?: Yes Documented LVEF (%): 45 Discharge Plan Admission Admit Date/Time: 10/05/22 02:50 Attending Provider: Aris Brownlee Primary Care Provider: Phillip Lindo Consulting Providers: Mir Hunter ; Griffin Swain ; Tyree Bridges ; Randy Clayton ; Oscar Bhagat ; Salome Angulo NP ; Biju Solo Discharge Orders/Prescriptions Prescriptions: New ipratropium-albuterol 0.5 mg-3 mg(2.5 mg base)/3 mL Solution For Nebulization 3 ml inhalation Q4HWA.RT Qty: 0 0RF albuterol sulfate 2.5 mg /3 mL (0.083 %) Solution For Nebulization 2.5 mg inhalation Q2H PRN PRN (Reason: SOB/Wheezing) Qty: 0 0RF prednisone 20 mg Tablet 40 mg PO BREAKFAST Qty: 0 0RF insulin lispro [Humalog KwikPen Insulin] 100 unit/mL Insulin Pen See Protocol subcut ACHS Qty: 0 0RF Protocol: 4. Sliding Scale Insulin High-Med Dosing Condition: 150-199 mg/dl = 2 units Condition: 200-259 mg/dl = 4 units Condition: 260-324 mg/dl = 6 units Condition: 325-374 mg/dl = 8 units Condition: 375-409 mg/dl = 10 units Condition: 410-449 mg/dl = 11 units Condition: Greater than 449 call physician Protocol Text: - Use for Total Daily Dose of Insulin 56-80 units - Patient who are insulin resistant or septic HIGH MEDIUM DOSING ALGORITHM menthol-zinc oxide [Calmoseptine] 0.44-20.6 % Ointment 1 applic topical BID Qty: 0 0RF Protocol: *Topical Application Instructions APPLICATION INSTRUCTIONS: groin/ coccyx cefdinir 300 mg capsule 300 mg PO BID Qty: 10 0RF levofloxacin 750 mg tablet 750 mg PO DAILY Qty: 5 0RF Continued aluminum-magnesium hydroxide 225-200 mg/5 mL suspension 30 ml PO Q4H PRN (Reason: GI distress) bisacodyl 10 mg suppository 10 mg MO DAILY PRN (Reason: constipaiton) duloxetine 60 mg capsule,delayed release(DR/EC) 60 mg PO BID Fleet Enema 19-7 gram/118 mL enema 118 ml MO ONCE PRN (Reason: Constipation) guaifenesin 200 mg/5 mL liquid 10 mg PO Q4H PRN (Reason: Cough) magnesium hydroxide [Milk of Magnesia] 400 mg/5 mL suspension 30 ml PO DAILY PRN (Reason: consipation) nystatin 100,000 unit/gram powder 1 applic topical DAILY PRN (Reason: excoriation) fluoxetine 40 mg capsule 60 mg PO QPM trazodone 50 mg tablet 150 mg PO QHS Entresto 49-51 mg tablet 1 tab PO BID Qty: 60 11RF amantadine HCl 100 MG capsule 100 mg PO DAILY pravastatin 80 MG tablet 80 mg PO QHS pantoprazole 40 MG tablet 40 mg PO DAILY pramipexole 0.25 MG tablet 0.25 mg PO QHS nitroglycerin 0.4 MG tablet, sublingual 0.4 mg sublingual PRN PRN (Reason: CHEST PAIN) aspirin 81 MG tablet,chewable 81 mg PO DAILY@0800 sennosides-docusate sodium 1 EACH tablet 2 ea PO BID melatonin 3 MG tablet,disintegrating 3 mg PO QHS tamsulosin 0.4 mg Capsule 0.4 mg PO QHS fluticasone propionate 110 mcg/actuation Hfa Aerosol Inhaler 1 puff INHALATION BID insulin aspart U-100 [Novolog FlexPen U-100 Insulin] 100 unit/mL (3 mL) Insulin Pen 15 unit SUBCUT TIDCM Brilinta 90 mg Tablet 90 mg PO BID carvedilol 25 mg Tablet 25 mg PO BID Qty: 0 0RF potassium chloride 20 mEq tablet,ER particles/crystals 40 meq PO DAILY 90 Days Qty: 90 0RF insulin glargine [Lantus Solostar U-100 Insulin] 100 unit/mL (3 mL) Insulin Pen 28 unit SUBCUT QPM spironolactone 25 mg tablet 25 mg PO DAILY Qty: 30 0RF cetirizine [Zyrtec] 10 mg Tablet 10 mg PO DAILY gabapentin 300 mg capsule 300 mg PO DAILY acetaminophen 500 MG tablet 650 mg PO Q4H PRN PRN (Reason: Mild Pain (-08/15)) furosemide 40 mg tablet 40 mg PO BID Changed oxycodone 5 MG tablet 5 mg PO TID 2 Days Qty: 6 0RF Discontinued insulin aspart U-100 [Novolog FlexPen U-100 Insulin] 100 UNITS/ML insulin pen See Protocol SC TIDCM Protocol: 6. Sliding Scale Insulin Custom Condition: mg/dl range Dose/Route: Number of Units Condition: 150-199 Dose/Route: 2 Condition: 200-259 Dose/Route: 4 Condition: 260-324 Dose/Route: 6 Condition: 325-374 Dose/Route: 8 Condition: 375-409 Dose/Route: 10 Condition: 410-449 Dose/Route: 11 Protocol Text: Custom Sliding Scale Rx Instructions: sliding scale levofloxacin 750 mg tablet 750 mg PO DAILY Qty: 9 0RF Referrals / Follow Up: Phillip Lindo MD [Primary Care Provider] - Within 2 Weeks Disposition Disposition (needs filled in before D/C Order can be placed): Residential Facility Charges/Coding Visit Charges Inpatient E&M: 30154 Disch Hosp >30min
--- NOTE | 2022-10-08 09:25 | CASEMGMT ---
Discharge Planning Updates and discharge date sent to [facility]. Ila Rodriguez
--- NOTE | 2022-10-08 09:37 | CASEMGMT ---
Discharge Planning Discharge orders, signed med list and scripts sent to [facility] via Eh Rodriguez
[2022-10-08] MEDS: levoFLOXacin IV 750 MG/150 ML BAG 100 MG IV (10:37)
[2022-10-08] MEDS: Pantoprazole Sodium 40 MG Tablet PO (10:43)
[2022-10-08] MEDS: SACUBITRIL/VALSARTAN 49-51 MG TABLET 1 EACH PO (10:43)
[2022-10-08] MEDS: Amantadine 100 MG Capsule PO (10:43)
[2022-10-08] MEDS: DULoxetine Hcl 60 MG Capsule PO (10:43)
[2022-10-08] MEDS: Senna/Docusate Sodium 1 Tablet PO (10:43)
[2022-10-08] MEDS: predniSONE 20 MG Tablet 40 MG PO (10:43)
[2022-10-08] MEDS: Aspirin 81 MG TAB.CHEW PO (10:43)
[2022-10-08] MEDS: Enoxaparin 40 MG/0.4 ML Syringe SC (10:43)
[2022-10-08] MEDS: Carvedilol 25 MG Tablet PO ×2 (10:44→15:59)
[2022-10-08] MEDS: TICAGRELOR 90 MG TABLET PO (10:44)
[2022-10-08] MEDS: Potassium Chloride 10mEq/100mL 10 MEQ/100 ML IV.SOLN. 100 MEQ IV BOLUS ×4 (11:42→15:54)
[2022-10-08] MEDS: Menthol/Lanolin/Calamine/Znox 113 GM Tube 1 APPLIC TOPICAL (11:43)
[2022-10-08] MEDS: Nystatin Powder 15gm Bottle 1 APPLIC TOPICAL (11:43)
--- NOTE | 2022-10-08 13:51 | CASEMGMT ---
SW called Physicians and arranged for patient to get picked up at via cot. SW notified RN, real estate legal secretary, and SWCC via [employer]. Plan: d/c back to [facility] under intermediate level of care. Physicians transported via cot. Nydia MADDEN
[2022-10-08 16:25] LABS: Bedside Glucose 366 mg/dL (74-106)
--- NOTE | 2022-10-08 16:54 | NURSING ---
Report called to Magali at [facility]
[2022-10-09 08:16] LABS: Bedside Glucose 293 mg/dL (74-106)
== END 2022-10-08 05:25 | disposition skilled nursing facility (03) | DRG 193 ==
LOC: ED 10-05 02:24 → PCU 10-05 03:23
PROVIDERS: Internal Medicine; Admitting Provider Hospitalist; Emergency Provider Emergency Medicine; PCP Family Medicine; Visit Provider Internal Medicine
DX: J18.9 Pneumonia, unspecified organism (principal); J96.01 Acute respiratory failure with hypoxia; I50.23 Acute on chronic systolic (congestive) heart failure; G93.40 Encephalopathy, unspecified; I24.8 Other forms of acute ischemic heart disease; E66.2 Morbid (severe) obesity with alveolar hypoventilation; J44.0 Chronic obstructive pulmonary disease with (acute) lower respiratory infection; N17.9 Acute kidney failure, unspecified; I13.0 Hypertensive heart and chronic kidney disease with heart failure and stage 1 through stage 4 chronic kidney disease, or unspecified chronic kidney disease; Z68.41 Body mass index [BMI] 40.0-44.9, adult; G20 Parkinson's disease; E11.22 Type 2 diabetes mellitus with diabetic chronic kidney disease; Z79.4 Long term (current) use of insulin; E11.65 Type 2 diabetes mellitus with hyperglycemia; E11.42 Type 2 diabetes mellitus with diabetic polyneuropathy; Z93.3 Colostomy status; G25.81 Restless legs syndrome; I25.5 Ischemic cardiomyopathy; F41.9 Anxiety disorder, unspecified; N18.2 Chronic kidney disease, stage 2 (mild); I25.10 Atherosclerotic heart disease of native coronary artery without angina pectoris; E87.5 Hyperkalemia; K21.9 Gastro-esophageal reflux disease without esophagitis; E78.5 Hyperlipidemia, unspecified; I25.2 Old myocardial infarction; F17.210 Nicotine dependence, cigarettes, uncomplicated; F32.A Depression, unspecified; G89.29 Other chronic pain; N40.0 Benign prostatic hyperplasia without lower urinary tract symptoms; R53.81 Other malaise; Z66 Do not resuscitate; Z79.82 Long term (current) use of aspirin; Z79.02 Long term (current) use of antithrombotics/antiplatelets; Z79.899 Other long term (current) drug therapy; Z20.822 Contact with and (suspected) exposure to COVID-19; Z71.6 Tobacco abuse counseling; Z95.1 Presence of aortocoronary bypass graft; Z95.5 Presence of coronary angioplasty implant and graft; Z86.73 Personal history of transient ischemic attack (TIA), and cerebral infarction without residual deficits
CPT/HCPCS: 31720; 36415; 36600; 71045; 71275; 80048; 82803; 82962; 83605; 83735; 83880; 84100; 84145; 84484; 85025; 87040; 87428; 87449; 87633; 87641; 93005; 94002; 94003; 94640; 94762; 97162; 97166; 99285; J7030; J7040; Q9967; A4216; J0696; J1940; J2405

== ENCOUNTER → 2022-11-06 | Outpatient (REF) | payer MEDICARE, MEDICAID, SELFPAY ==
[2017-02-20 12:18] VITALS: BMI 46.4
[2022-11-06 10:23] LABS: ALB/GLOB Ratio 0.9 RATIO (0.9-2.4); AST(SGOT) 9 U/L (15-37); Alanine Aminotransfer ALT/SGPT 25 U/L (16-61); Albumin, Serum 3.5 g/dL (3.2-5.0); Alkaline Phosphatase 63 U/L (45-117); Anion Gap 9 (5-15); BUN 33 mg/dL (7-18); BUN/Creat Ratio 22.3 RATIO (10-20); Calcium,Total 9.4 mg/dL (8.5-10.1); Chloride 102 mmol/L (98-107); Creatinine, Serum 1.48 mg/dL (0.70-1.30); EST Glomerular Filtration Rate 50 mL/min (>60); Est Glom Filt Rate - Afr Amer 60 mL/min (>60); Globulin 3.7 g/dL (2.2-4.2); Glucose 175 mg/dL (74-106); Protein, Total 7.2 g/dL (6.4-8.2); Sodium Level 138 mmol/L (136-145)
[2022-11-06 10:27] LABS: Hemoglobin A1c 9.1 % (3.8-5.6)
== END ==
LOC: OLS.SW 05:00
PROVIDERS: PCP Family Medicine; Visit Provider Family Medicine
DX: E11.9 Type 2 diabetes mellitus without complications (principal); J96.90 Respiratory failure, unspecified, unspecified whether with hypoxia or hypercapnia
CPT/HCPCS: 36415; 80053; 83036

== ENCOUNTER → 2022-11-12 | Outpatient (REF) | payer MEDICARE, MEDICAID, SELFPAY ==
[2017-02-20 12:18] VITALS: BMI 46.4
== END ==
LOC: OLS.SW 08:22
PROVIDERS: PCP Family Medicine; Visit Provider Family Medicine
DX: T14.8XXD Other injury of unspecified body region, subsequent encounter (principal); X58.XXXD Exposure to other specified factors, subsequent encounter; L08.9 Local infection of the skin and subcutaneous tissue, unspecified
CPT/HCPCS: 87070; 87077; 87186; 87205

== ENCOUNTER 2022-12-09 11:34 | Emergency (ER) | payer MEDICARE, MEDICAID, SELFPAY ==
[2017-02-20 12:18] VITALS: BMI 46.4
[2022-12-09 11:36] VITALS: BP 139/65; PULSE 117; RESP 26; TEMP 37.1; O2SAT 89; BMI 39.9
--- NOTE | 2022-12-09 12:04 | EKG12_ITS ---
Test Reason : Blood Pressure : / mmHG Vent. Rate : 115 BPM Atrial Rate : 115 BPM P-R Int : 158 ms QRS Dur : 106 ms QT Int : 342 ms P-R-T Axes : 055 059 103 degrees QTc Int : 473 ms Sinus tachycardia Nonspecific ST and T wave abnormality Abnormal ECG Confirmed by SHERYL MATTA, ALVARO ([id number]), news assignment editor EMMANUEL CONTRERAS ([id number]) on 12/10/2022 11:02:44 AM Referred By: Confirmed By:ALVARO SAUCEDO MD
[2022-12-09] MEDS: 0.9% Normal Saline 1,000 ML 1000 ML IV (12:42)
[2022-12-09 12:43] VITALS: BP 103/78; PULSE 114; RESP 26; O2SAT 94
--- NOTE | 2022-12-09 12:49 | EX.ED.DYSGE1 ---
HPI History of Present Illness Chief Complaint: Syncope Informant: patient Onset/Context/Timing Onset: Today Context: Sudden Onset Timing: Lasts (Couple minutes) Quality: Syncope Location: Generalized Worsened by: Nothing Relieved by: Nothing Narrative Narrative: Patient presents with a syncopal episode that occurred today. Patient states that he was sitting in a chair and passed out at the assisted today. Patient states it only lasted a couple minutes. Patient states it came on rather suddenly. Patient states she has had some fevers and shaking today. [facility] staff noted patient had increased blood sugar today. Patient has a sacral decubitus ulcer that is being treated at the assisted by wound care physician. [facility] Medical History Acute on chronic systolic (congestive) heart failure Acute pulmonary edema (09/14/20) Acute respiratory failure with hypoxia (09/14/20) Acute respiratory failure with hypoxia and hypercapnia Alcohol abuse Allergic rhinitis Anemia Anxiety Atherosclerosis Atherosclerosis of coronary artery bypass graft without angina pectoris Benign prostatic hyperplasia Chronic combined systolic and diastolic CHF (congestive heart failure) COPD (chronic obstructive pulmonary disease) COPD with acute exacerbation CVA (cerebral vascular accident) Depression Diabetes Dysphagia Essential (primary) hypertension GERD (gastroesophageal reflux disease) Heart failure History of non-ST elevation myocardial infarction (NSTEMI) (02/21/19) HTN (hypertension) Hyperlipidemia Intraparenchymal hemorrhage of brain Intraventricular hemorrhage Ischemic cardiomyopathy Morbid obesity Myocardial infarct Neuromuscular dysfunction of bladder Nicotine dependence Obesity Obstructive sleep apnea Osteomyelitis of sacrum Recurrent UTI (urinary tract infection) Reflux esophagitis Restless leg syndrome Right hemiplegia RLS (restless legs syndrome) Sleep apnea Subarachnoid hemorrhage Subdural hematoma Tobacco abuse Traumatic brain injury Type 2 diabetes mellitus Home Medications amantadine HCl 100 mg capsule 100 mg PO DAILY PARKINSON 04/17/18 [History Last Taken 07/19/21] pantoprazole 40 mg tablet,delayed release 40 mg PO DAILY STOMACH 04/17/18 [History Last Taken 07/19/21] pramipexole 0.25 mg tablet 0.25 mg PO QHS PARKINSONS 04/17/18 [History Last Taken 07/18/21] pravastatin 80 mg tablet 80 mg PO QHS CHOLESTEROL 04/17/18 [History Last Taken 07/18/21] nitroglycerin 0.4 mg sublingual tablet 0.4 mg sublingual PRN PRN CHEST PAIN 02/20/19 [History Last Taken Unknown] aspirin 81 mg chewable tablet 81 mg PO DAILY@0800 heart health 02/24/19 [History Last Taken 07/19/21] melatonin 3 mg disintegrating tablet 3 mg PO QHS sleep 09/14/20 [History Last Taken 07/18/21] fluticasone propionate 110 mcg/actuation HFA aerosol inhaler 1 puff inhalation BID allergies 02/17/21 [History Last Taken 07/19/21] insulin aspart U-100 100 unit/mL (3 mL) subcutaneous pen (Novolog FlexPen U-100 Insulin aspart) 15 unit subcut TIDCM blood sugar 02/17/21 [History Last Taken 07/19/21] tamsulosin 0.4 mg capsule 0.4 mg PO QHS prostate 02/17/21 [History Last Taken 07/18/21] carvedilol 25 mg tablet 25 mg PO BID #0 tabs 02/20/21 [Rx Last Taken 07/19/21] potassium chloride 20 mEq tablet,extended release(part/cryst) 40 meq (2 x 20 mEq) PO DAILY supplement 90 days #90 tabs 02/20/21 [Rx Last Taken 07/19/21] spironolactone 25 mg tablet 25 mg PO DAILY #30 tabs 04/29/21 [Rx Last Taken 07/19/21] aluminum-magnesium hydroxide 225 mg-200 mg/5 mL oral suspension 30 ml PO Q4H PRN GI distress 10/11/21 [History Last Taken Unknown] bisacodyl 10 mg rectal suppository 10 mg MO DAILY PRN constipaiton 10/11/21 [History Last Taken Unknown] duloxetine 60 mg capsule,delayed release 60 mg PO BID depression 10/11/21 [History Last Taken Unknown] fluoxetine 40 mg capsule 60 mg PO QPM depression 10/11/21 [History Last Taken Unknown] guaifenesin 200 mg/5 mL oral liquid 10 mg PO Q4H PRN Cough 10/11/21 [History Last Taken Unknown] magnesium hydroxide 400 mg/5 mL oral suspension (Milk of Magnesia) 30 ml PO DAILY PRN consipation 10/11/21 [History Last Taken Unknown] nystatin 100,000 unit/gram topical powder 1 applic topical DAILY PRN excoriation 10/11/21 [History Last Taken Unknown] sacubitril 49 mg-valsartan 51 mg tablet (Entresto) 1 tab PO BID #60 tabs 10/11/21 [Rx Last Taken Unknown] sodium phosphates 19 gram-7 gram/118 mL enema (Fleet Enema) 118 ml MO ONCE PRN Constipation 10/11/21 [History Last Taken Unknown] acetaminophen 500 mg tablet 650 mg PO Q4H PRN PRN Mild Pain (1-3/10) 07/27/22 [History Last Taken Unknown] cetirizine 10 mg tablet (Zyrtec) 10 mg PO DAILY sinus 07/27/22 [History Last Taken Unknown] gabapentin 300 mg capsule 300 mg PO DAILY neuropathy 07/27/22 [History Last Taken Unknown] furosemide 40 mg tablet 40 mg PO BID CHF 10/05/22 [History Last Taken Unknown] albuterol sulfate 2.5 mg/3 mL (0.083 %) solution for nebulization 2.5 mg (3 mL) inhalation Q2H PRN PRN SOB/Wheezing #0 mL 10/08/22 [Rx Last Taken Unknown] insulin lispro 100 unit/mL subcutaneous pen (Humalog KwikPen (U-100) Insulin) See Protocol subcut ACHS #0 mL 10/08/22 [Rx Last Taken Unknown] ipratropium 0.5 mg-albuterol 3 mg (2.5 mg base)/3 mL nebulization soln 3 ml inhalation Q4HWA.RT #0 mL 10/08/22 [Rx Last Taken Unknown] menthol 0.44 %-zinc oxide 20.6 % topical ointment (Calmoseptine) 1 applic topical BID #0 grams 10/08/22 [Rx Last Taken Unknown] oxycodone 5 mg tablet 5 mg PO TID 2 days #6 tabs 10/08/22 [Rx Last Taken Unknown] prednisone 20 mg tablet 40 mg (2 x 20 mg) PO BREAKFAST #0 tabs 10/08/22 [Rx Last Taken Unknown] sennosides 8.6 mg-docusate sodium 50 mg tablet 1 tab-cap PO BID constipation 10/31/22 [History Last Taken Unknown] trazodone 150 mg tablet 150 mg PO QHS 10/31/22 [History Last Taken Unknown] clindamycin HCl 300 mg capsule (Cleocin HCl) 300 mg PO Q6H #40 CAPSULES 12/09/22 [Rx Last Taken Unknown] Allergy/AdvReac Type Severity Reaction Status Date / Time atorvastatin Allergy PT UNSURE Verified 10/31/22 10:27 OF REACTION cilostazol Allergy Hives Verified 10/31/22 10:27 colestipol Allergy Hives Verified 10/31/22 10:27 diltiazem Allergy Hives Verified 10/31/22 10:27 gemfibrozil Allergy Hives Verified 10/31/22 10:27 naproxen [From Naprosyn] Allergy Hives Verified 10/31/22 10:27 niacin Allergy PT UNSURE Verified 10/31/22 10:27 OF REACTION Nitrate Analogues Allergy Hives Verified 10/31/22 10:27 Penicillins Allergy Hives Verified 10/31/22 10:27 pravastatin Allergy NEEDS Verified 10/31/22 10:27 FOLLOW-UP procainamide Allergy Hives Verified 10/31/22 10:27 procaine Allergy NEEDS Verified 10/31/22 10:27 FOLLOW-UP rosuvastatin Allergy Hives Verified 10/31/22 10:27 simvastatin Allergy Hives Verified 10/31/22 10:27 isosorbide AdvReac Severe Unknown Verified 10/31/22 10:27 Family History Brother Heart disease Father Heart disease Alzheimer disease Mother No history of heart disease Surgical History Chronic suprapubic catheter H/O coronary angioplasty H/O coronary artery bypass surgery (2001) History of coronary artery stent placement (09/18/20) History of left heart catheterization (04/29/21) PEG (percutaneous endoscopic gastrostomy) adjustment/replacement/removal Status post ileostomy Status post osteotomy (01/2018) Social History housing: assisted Smoking Status: Current every day smoker tobacco type: cigarettes second hand exposure: Yes alcohol intake: former substance use type: does not use caffeine: Yes Type: coffee Number of servings: 3 what type of physical activity do you participate in: none ROS ROS ED Constitutional Constitutional ED: Reports fever(s); Denies chills Eyes Eyes: Denies blurry vision or change in vision ENT ENT ED: Denies rhinorrhea or sore throat Cardiovascular Cardiovascular: Denies chest pain or palpitations Respiratory/Chest Respiratory/Chest: Reports cough; Denies dyspnea Gastrointestinal Gastrointestinal: Denies nausea or vomiting Genitourinary Genitourinary ED: Denies dysuria or hematuria Musculoskeletal Musculoskeletal: Denies back pain or neck pain Integumentary Reports rash and other Details: Sacral decubitus ulcer ; Denies abscess Neurologic Neurologic: Denies headache(s) or weakness Allergic/Immunologic Allergic/Immunologic ED: Denies mouth swelling or urticaria EXAM Physical Exam Const Vital Signs: 12/09/22 11:36 12/09/22 12:04 12/09/22 12:43 Temperature 98.7 F Temperature Source Temporal Pulse Rate 117 H Respiratory Rate 26 H Respiratory Pattern Tachypnea Blood Pressure 139/65 H Blood Pressure Mean 89 Pulse Ox 89 Oxygen Delivery Method Room Air Nasal Cannula Oxygen Flow Rate (L/min) 2 12/09/22 12:43 Temperature Temperature Source Pulse Rate 114 H Respiratory Rate 26 H Respiratory Pattern Blood Pressure 103/78 Blood Pressure Mean 86 Pulse Ox 94 Oxygen Delivery Method Nasal Cannula Oxygen Flow Rate (L/min) 2 Positive well nourished, well developed and obese General Appearance ED: well developed and NAD Nutritional Appearance: obese HEENT Reports moist mucous membranes Neck supple and no JVD Resp normal respiratory effort and clear to auscultation bilaterally Cardio regular rhythm Rate: tachycardic GI non-tender and non-distended Auscultation: normoactive bowel sounds Palpation: soft Neuro oriented x3, CN's II-XII intact bilaterally and no sensory deficits noted Sensorium / Orientation: alert Motor Exam: strength 5/5 throughout Psych mental status grossly normal Skin Skin Narrative: There is a grade 2 sacral decubitus wound with some mild erythema. There is no purulent discharge or drainage. There is some mild tenderness noted. MDM MDM MDM Narrative Medical decision making narrative: Differential diagnosis includes sepsis, pneumonia, cardiac dysrhythmia, cardiac ischemia, diabetic ketoacidosis, and urinary tract infection. EKG will be obtained to assess for cardiac dysrhythmia and cardiac ischemia. Chest x-ray will be obtained to assess for pneumonia and pneumothorax. CBC will be obtained to assess for leukocytosis and anemia. Comprehensive metabolic profile will be obtained to assess for electrolyte abnormality, renal function, and hepatic function. Serum acetone level will be obtained to assess for ketoacidosis. Venous blood gas will be obtained to assess for acidosis. Urinalysis will be obtained to assess for urinary tract infection and urinary ketones. Serum lactate will be obtained to assess for lactic acidosis and sepsis. PT with INR and PTT will be obtained to assess for coagulopathy. Lab Data Attestation: I reviewed the patient's lab results. Lab results narrative: CBC was reviewed. There is a mild leukocytosis of 16.1. There is a mild anemia with a hemoglobin of 11.4 and hematocrit of 37.3. Platelets were normal. PT with INR and PTT were reviewed and were within normal limits. Comprehensive metabolic profile was reviewed. Sodium was slightly low at 135. Potassium was slightly elevated at 5.4. BUN was 46 and creatinine was 2.4. These are consistent with prior results. Glucose was elevated at 397. Anion gap is normal, CO2 was normal. Serum acetone was reviewed and was small. Urinalysis shows a leukocyte esterase of 500. There were 5-10 white blood cells. There is 1+ bacteria. Urine culture was ordered. Labs: Laboratory Results - last 24 hr 12/09/22 12/09/22 12/09/22 12:38 12:38 12:46 WBC Cancelled Corrected WBC Cancelled RBC Cancelled Hgb Cancelled Hct Cancelled MCV Cancelled MCH Cancelled MCHC Cancelled RDW Std Deviation Cancelled RDW Coeff of Sherin Cancelled Plt Count Cancelled MPV Cancelled Immature Gran % (Auto) Cancelled Neut % (Auto) Cancelled Lymph % (Auto) Cancelled [place] % (Auto) Cancelled Eos % (Auto) Cancelled Baso % (Auto) Cancelled Absolute Neuts (auto) Cancelled Absolute Lymphs (auto) Cancelled Total Counted Cancelled Neutrophils % (Manual) Cancelled Band Neutrophils % Cancelled Lymphocytes % (Manual) Cancelled Monocytes % (Manual) Cancelled Eosinophils % (Manual) Cancelled Basophils % (Manual) Cancelled Metamyelocytes % Cancelled Myelocytes % Cancelled Promyelocytes % Cancelled Blast Cells % Cancelled Plasma Cell % (Manual) Cancelled Other Cells % Cancelled Nucleated RBC % Cancelled Nucleated RBCs/100 WBC Cancelled Differential Comment Cancelled Diff Path Review Cancelled Hypersegmented Neuts Cancelled Atypical Lymphocytes Cancelled Reactive Lymphocytes Cancelled Smudge Cells Cancelled Toxic Granulation Cancelled Toxic Vacuolation Cancelled Dohle Bodies Cancelled Axel Rods Cancelled Platelet Estimate Cancelled Plt Morphology Comment Cancelled RBC Morphology Cancelled Cancelled Polychromasia Cancelled Hypochromasia Cancelled Poikilocytosis Cancelled Basophilic Stippling Cancelled Anisocytosis Cancelled Microcytosis Cancelled Macrocytosis Cancelled Spherocytes Cancelled Sickle Cells Cancelled Target Cells Cancelled Tear Drop Cells Cancelled Ovalocytes Cancelled Stomatocytes Cancelled Camarena-Kerr Bodies Cancelled [place] Cells Cancelled Bite Cells Cancelled Crenated Cell Cancelled Acanthocytes (Spur) Cancelled Rouleaux Cancelled Schistocytes Cancelled PT 14.5 INR 1.1 APTT 28.8 Sodium 135 L Potassium 5.4 H Chloride 106 Carbon Dioxide 22.0 Anion Gap 7 BUN 46 H Creatinine 2.04 H Estim Creat Clear Calc 38.06 Est GFR (MDRD) Af Amer 41 L Est GFR (MDRD) Non-Af 34 L BUN/Creatinine Ratio 22.5 H Glucose 397 H Lactic Acid Calcium 9.4 Total Bilirubin 0.50 AST 39 H ALT 26 Alkaline Phosphatase 69 Total Protein 7.7 Albumin 3.1 L Globulin 4.6 H Albumin/Globulin Ratio 0.7 L Urine Color Yellow Urine Clarity Clear Urine pH 8.0 Ur Specific [place] 1.010 Urine Protein 15 H Urine Glucose (UA) 1000 H Urine Ketones Negative Urine Occult Blood 50 H Urine Nitrite Negative Urine Bilirubin Negative Urine Urobilinogen Normal Ur Leukocyte Esterase 500 H Urine RBC 0 SEEN Urine WBC 5-10 SEEN Ur Squamous Epith Cells 0 SEEN Amorphous Sediment 1+ Urine Bacteria 1+ Urine Mucus 0 SEEN Acetone Level 12/09/22 13:05 WBC 16.1 H Corrected WBC RBC 3.91 L Hgb 11.4 L Hct 37.3 L MCV 95.4 H MCH 29.2 MCHC 30.6 L RDW Std Deviation 51.5 H RDW Coeff of Sherin 14.7 H Plt Count 173 MPV 11.7 Immature Gran % (Auto) 0.700 Neut % (Auto) 88.6 H Lymph % (Auto) 1.7 L [place] % (Auto) 8.8 Eos % (Auto) 0.0 Baso % (Auto) 0.2 Absolute Neuts (auto) 14.3 H Absolute Lymphs (auto) 0.28 L Total Counted Neutrophils % (Manual) Band Neutrophils % Lymphocytes % (Manual) Monocytes % (Manual) Eosinophils % (Manual) Basophils % (Manual) Metamyelocytes % Myelocytes % Promyelocytes % Blast Cells % Plasma Cell % (Manual) Other Cells % Nucleated RBC % 0 Nucleated RBCs/100 WBC Differential Comment SCANNED Diff Path Review Hypersegmented Neuts Atypical Lymphocytes Reactive Lymphocytes Smudge Cells Toxic Granulation Toxic Vacuolation Dohle Bodies Axel Rods Platelet Estimate Plt Morphology Comment RBC Morphology Polychromasia Hypochromasia Poikilocytosis Basophilic Stippling Anisocytosis Microcytosis Macrocytosis Spherocytes Sickle Cells Target Cells Tear Drop Cells Ovalocytes Stomatocytes Camarena-Kerr Bodies [place] Cells Bite Cells Crenated Cell Acanthocytes (Spur) Rouleaux Schistocytes PT INR APTT Sodium Potassium Chloride Carbon Dioxide Anion Gap BUN Creatinine Estim Creat Clear Calc Est GFR (MDRD) Af Amer Est GFR (MDRD) Non-Af BUN/Creatinine Ratio Glucose Lactic Acid 1.7 Calcium Total Bilirubin AST ALT Alkaline Phosphatase Total Protein Albumin Globulin Albumin/Globulin Ratio Urine Color Urine Clarity Urine pH Ur Specific [place] Urine Protein Urine Glucose (UA) Urine Ketones Urine Occult Blood Urine Nitrite Urine Bilirubin Urine Urobilinogen Ur Leukocyte Esterase Urine RBC Urine WBC Ur Squamous Epith Cells Amorphous Sediment Urine Bacteria Urine Mucus Acetone Level SMALL H Radiography Diagnostic Testing: Clinical Impression(s) from Imaging Studies Chest X-Ray 12/09/22 13:35 IMPRESSION: No active disease. Cardiomegaly. Electronically Signed: José Miguel Gonzalez MD at 14:15 EDT Reading Location ID and State: [id number] Tel , Service support , Portable 1 view chest x-ray was obtained. On my independent interpretation, lung dover are clear. There is cardiomegaly. Bony thorax is normal. There is no acute process noted. Radiologist also interpreted the x-ray and agrees. EKG Initial EKG: Attestation: I personally reviewed and interpreted this EKG as follows: Interpretation: Sinus Tachycardia (115) and Non-Specific ST Changes Comments: EKG was obtained. On my independent interpretation, it showed a sinus tachycardia with a rate of 115. MO interval, QRS interval, and QTc intervals were all normal. [place] was normal. There are no acute ST or T wave changes. Prior EKG tracings: available for review Prior: Unchanged (10/05/2022) Treatment and Re-Evaluation :: Patient is feeling better on reevaluation. We will cover the patient with antibiotics to cover urinary tract infection as well as cellulitis of his sacral decubitus ulcer. Patient was instructed to follow-up with his primary care physician in 5 to 7 days. Patient was instructed return if worse in any way. Patient and spouse understood and were agreeable with the plan. All questions were answered. Discharge Plan Triage Chief Complaint: Syncope ED Provider: Darnell Taylor Dx/Rx/DC Orders Clinical Impression: Sacral decubitus ulcer, Cellulitis Prescriptions: New clindamycin HCl [Cleocin HCl] 300 mg capsule 300 mg PO Q6H Qty: 40 0RF No Action aluminum-magnesium hydroxide 225-200 mg/5 mL suspension 30 ml PO Q4H PRN (Reason: GI distress) bisacodyl 10 mg suppository 10 mg MO DAILY PRN (Reason: constipaiton) duloxetine 60 mg capsule,delayed release(DR/EC) 60 mg PO BID Fleet Enema 19-7 gram/118 mL enema 118 ml MO ONCE PRN (Reason: Constipation) guaifenesin 200 mg/5 mL liquid 10 mg PO Q4H PRN (Reason: Cough) magnesium hydroxide [Milk of Magnesia] 400 mg/5 mL suspension 30 ml PO DAILY PRN (Reason: consipation) nystatin 100,000 unit/gram powder 1 applic topical DAILY PRN (Reason: excoriation) fluoxetine 40 mg capsule 60 mg PO QPM Entresto 49-51 mg tablet 1 tab PO BID Qty: 60 11RF trazodone 150 mg tablet 150 mg PO QHS amantadine HCl 100 MG capsule 100 mg PO DAILY pravastatin 80 MG tablet 80 mg PO QHS pantoprazole 40 MG tablet 40 mg PO DAILY pramipexole 0.25 MG tablet 0.25 mg PO QHS nitroglycerin 0.4 MG tablet, sublingual 0.4 mg sublingual PRN PRN (Reason: CHEST PAIN) aspirin 81 MG tablet,chewable 81 mg PO DAILY@0800 sennosides-docusate sodium 8.6-50 mg tablet 1 tab-cap PO BID melatonin 3 MG tablet,disintegrating 3 mg PO QHS tamsulosin 0.4 mg Capsule 0.4 mg PO QHS fluticasone propionate 110 mcg/actuation Hfa Aerosol Inhaler 1 puff INHALATION BID insulin aspart U-100 [Novolog FlexPen U-100 Insulin] 100 unit/mL (3 mL) Insulin Pen 15 unit SUBCUT TIDCM carvedilol 25 mg Tablet 25 mg PO BID Qty: 0 0RF potassium chloride 20 mEq tablet,ER particles/crystals 40 meq PO DAILY 90 Days Qty: 90 0RF spironolactone 25 mg tablet 25 mg PO DAILY Qty: 30 0RF cetirizine [Zyrtec] 10 mg Tablet 10 mg PO DAILY gabapentin 300 mg capsule 300 mg PO DAILY acetaminophen 500 MG tablet 650 mg PO Q4H PRN PRN (Reason: Mild Pain (-08/15)) furosemide 40 mg tablet 40 mg PO BID ipratropium-albuterol 0.5 mg-3 mg(2.5 mg base)/3 mL Solution For Nebulization 3 ml inhalation Q4HWA.RT Qty: 0 0RF albuterol sulfate 2.5 mg /3 mL (0.083 %) Solution For Nebulization 2.5 mg inhalation Q2H PRN PRN (Reason: SOB/Wheezing) Qty: 0 0RF prednisone 20 mg Tablet 40 mg PO BREAKFAST Qty: 0 0RF insulin lispro [Humalog KwikPen Insulin] 100 unit/mL Insulin Pen See Protocol subcut ACHS Qty: 0 0RF Protocol: 4. Sliding Scale Insulin High-Med Dosing Condition: 150-199 mg/dl = 2 units Condition: 200-259 mg/dl = 4 units Condition: 260-324 mg/dl = 6 units Condition: 325-374 mg/dl = 8 units Condition: 375-409 mg/dl = 10 units Condition: 410-449 mg/dl = 11 units Condition: Greater than 449 call physician Protocol Text: - Use for Total Daily Dose of Insulin 56-80 units - Patient who are insulin resistant or septic HIGH MEDIUM DOSING ALGORITHM menthol-zinc oxide [Calmoseptine] 0.44-20.6 % Ointment 1 applic topical BID Qty: 0 0RF Protocol: *Topical Application Instructions APPLICATION INSTRUCTIONS: groin/ coccyx oxycodone 5 MG tablet 5 mg PO TID 2 Days Qty: 6 0RF Primary Care Provider: Phillip Lindo Referrals: Phillip Lindo MD [Primary Care Provider] -
[2022-12-09 12:58] LABS: International Normalized Ratio 1.1; Prothrombin Time (Protime)PT. 14.5 SECONDS (11.7-14.9)
[2022-12-09 12:59] LABS: Partial Thromboplast Time 28.8 Seconds (24.1-36.2)
[2022-12-09 13:00] VITALS: BP 149/69; PULSE 117; RESP 24; O2SAT 95
[2022-12-09 13:00] LABS: Mucous, Urine 0 SEEN /hpf (<or=2+); Red Blood Cells-Urine 0 SEEN /hpf (0-5); Squamous Epithelial Cells - UA 0 SEEN /hpf (0-5)
[2022-12-09 13:05] LABS: ALB/GLOB Ratio 0.7 RATIO (0.9-2.4); AST(SGOT) 39 U/L (15-37); Alanine Aminotransfer ALT/SGPT 26 U/L (16-61); Albumin, Serum 3.1 g/dL (3.2-5.0); Alkaline Phosphatase 69 U/L (45-117); Anion Gap 7 (5-15); BUN 46 mg/dL (7-18); BUN/Creat Ratio 22.5 RATIO (10-20); Calcium,Total 9.4 mg/dL (8.5-10.1); Chloride 106 mmol/L (98-107); Creatinine, Serum 2.04 mg/dL (0.70-1.30); EST Glomerular Filtration Rate 34 mL/min (>60); Est Glom Filt Rate - Afr Amer 41 mL/min (>60); Estimated Creatinine Clearance 38.06 ml/min; Globulin 4.6 g/dL (2.2-4.2); Glucose 397 mg/dL (74-106); Potassium 5.4 mmol/L (3.5-5.1); Protein, Total 7.7 g/dL (6.4-8.2); Sodium Level 135 mmol/L (136-145)
[2022-12-09 13:13] LABS: Absolute Lymphocyte Count 0.28 X10^3/uL (0.83-4.51); Absolute Neutrophil Count 14.3 X10^3/uL (2.0-7.7); Basophil# 0.04 X10^3/uL; Basophil% 0.2 % (0-1); Hematocrit 37.3 % (40-54); Hemoglobin 11.4 g/dL (13.0-16.5); Lymphocyte # 0.28 X10^3/ul (0.83-4.51); Lymphocyte % 1.7 % (19-41); Mean Corp Hgb Conc 30.6 g/dL (32-36); Mean Corpuscular Hgb 29.2 pg (27.0-32.0); Mean Corpuscular Volume 95.4 fL (80-94); Mean Platelet Vol. 11.7 fl (6.2-12.0); Monocyte# 1.41 X10^3/uL; Monocyte% 8.8 % (0-10); NRBC Flagged by Analyzer 0 % (0-5); Neutrophil # 14.25 X10^3/uL (2.7-7.7); Neutrophil % 88.6 % (47-70); POSITIVE DIFFERENTIAL YES; Platelet Count 173 K/mm3 (150-450); RBC Distribution Width CV 14.7 % (11.6-14.6); RBC Distribution Width SD 51.5 fl (35.1-43.9); Red Blood Count 3.91 M/mm3 (4.6-6.2); White Blood Count 16.1 K/mm3 (4.4-11.0)
[2022-12-09 13:17] LABS: Differential Indicated SCAN CRITERIA MET
[2022-12-09 13:28] LABS: Color, Urine Yellow (Yellow); Glucose, Dipstick 1000 mg/dl (Normal); Ketone-Dipstick Negative (Negative); Leukocyte Esterase-Dipstick 500 /ul (Negative); Nitrite-Dipstick Negative (Negative); Occult Blood-Urine 50 /ul (Negative); Protein-Dipstick 15 mg/dl (Negative); Urine Bilirubin Dipstick Negative (Negative); Urine Clarity Clear (Clear); Urine Urobilinogen Normal (Normal)
--- NOTE | 2022-12-09 13:35 | RAD_ITS ---
STUDY: X-RAY CHEST REASON FOR EXAM: Male, 72 years old. Fever TECHNIQUE: Single AP portable view of the chest. COMPARISON: 10/05/2022 FINDINGS: Status post coronary artery bypass grafting. The lungs are clear and expanded. There is no demonstrated pleural abnormality. There is moderate cardiac enlargement. Normal mediastinum and ita. Normal visualized pulmonary arteries. Normal visualized aortic arch and descending thoracic aorta. Normal visualized thoracic spine. Normal visualized ribs, clavicles, and shoulders. There is no demonstrated abnormality of the visualized soft tissue structures of the upper abdomen. RAD/Chest 1 View (Portable) IMPRESSION: No active disease. Cardiomegaly. Electronically Signed: José Miguel Gonzalez MD at 14:15 EDT ,
[2022-12-09 13:41] LABS: Lactic Acid 1.7 mmol/L (0.4-1.9)
[2022-12-09 13:46] LABS: Amorphous Sediment 1+; Bacteria 1+ /hpf (None Seen); White Blood Cells 5-10 SEEN /hpf (0-5)
[2022-12-09 13:55] LABS: Differential Comment SCANNED
[2022-12-09 14:00] VITALS: BP 103/78; PULSE 113; RESP 27; O2SAT 93
[2022-12-09 15:00] VITALS: BP 138/105; PULSE 110; RESP 23; O2SAT 94
--- NOTE | 2022-12-09 15:57 | ED.RN ---
REPORT CALLED TO CAROLE AT [facility].
== END 2022-12-09 16:20 | disposition home or self-care (01) ==
LOC: ED 12:24
PROVIDERS: Emergency Provider Emergency Medicine; PCP Family Medicine; Visit Provider Emergency Medicine
DX: L89.152 Pressure ulcer of sacral region, stage 2 (principal); J44.9 Chronic obstructive pulmonary disease, unspecified; I11.0 Hypertensive heart disease with heart failure; I50.42 Chronic combined systolic (congestive) and diastolic (congestive) heart failure; E11.65 Type 2 diabetes mellitus with hyperglycemia; Z79.4 Long term (current) use of insulin; R55 Syncope and collapse; L03.312 Cellulitis of back [any part except buttock and flank]; I25.5 Ischemic cardiomyopathy; I25.10 Atherosclerotic heart disease of native coronary artery without angina pectoris; E78.5 Hyperlipidemia, unspecified; K21.00 Gastro-esophageal reflux disease with esophagitis, without bleeding; E66.9 Obesity, unspecified; F17.210 Nicotine dependence, cigarettes, uncomplicated; Z79.899 Other long term (current) drug therapy; Z79.52 Long term (current) use of systemic steroids
CPT/HCPCS: 99285; 71045; 80053; 81001; 82009; 83605; 85025; 85610; 85730; 87040; 87077; 87086; 87088; 93005; J7030; A4216

== ENCOUNTER → 2022-12-09 | Outpatient (REF) | payer MEDICARE, MEDICAID, SELFPAY ==
[2017-02-20 12:18] VITALS: BMI 46.4
[2022-12-09 10:57] LABS: Absolute Lymphocyte Count 0.44 X10^3/uL (0.83-4.51); Absolute Neutrophil Count 12.1 X10^3/uL (2.0-7.7); Basophil# 0.03 X10^3/uL; Basophil% 0.2 % (0-1); Eosinophil# 0.02 X10^3/uL; Eosinophils% 0.2 % (0-5); Hematocrit 39.5 % (40-54); Hemoglobin 12.4 g/dL (13.0-16.5); Lymphocyte # 0.44 X10^3/ul (0.83-4.51); Lymphocyte % 3.4 % (19-41); Mean Corp Hgb Conc 31.4 g/dL (32-36); Mean Corpuscular Hgb 29.5 pg (27.0-32.0); Mean Platelet Vol. 11.2 fl (6.2-12.0); Monocyte# 0.43 X10^3/uL; Monocyte% 3.3 % (0-10); NRBC Flagged by Analyzer 0 % (0-5); Neutrophil # 12.12 X10^3/uL (2.7-7.7); Neutrophil % 92.6 % (47-70); POSITIVE DIFFERENTIAL YES; Platelet Count 179 K/mm3 (150-450); RBC Distribution Width CV 14.6 % (11.6-14.6); RBC Distribution Width SD 50.6 fl (35.1-43.9); White Blood Count 13.1 K/mm3 (4.4-11.0)
[2022-12-09 11:01] LABS: Differential Indicated SCAN CRITERIA MET
[2022-12-09 11:11] LABS: ALB/GLOB Ratio 0.6 RATIO (0.9-2.4); AST(SGOT) 45 U/L (15-37); Alanine Aminotransfer ALT/SGPT 27 U/L (16-61); Albumin, Serum 3.1 g/dL (3.2-5.0); Alkaline Phosphatase 74 U/L (45-117); Anion Gap 8 (5-15); BUN 44 mg/dL (7-18); BUN/Creat Ratio 22.3 RATIO (10-20); Calcium,Total 9.6 mg/dL (8.5-10.1); Chloride 105 mmol/L (98-107); Creatinine, Serum 1.97 mg/dL (0.70-1.30); EST Glomerular Filtration Rate 36 mL/min (>60); Est Glom Filt Rate - Afr Amer 43 mL/min (>60); Globulin 4.9 g/dL (2.2-4.2); Glucose 302 mg/dL (74-106); Sodium Level 135 mmol/L (136-145)
[2022-12-09 11:25] LABS: Differential Comment SCANNED
== END ==
LOC: OLS.SW 10:20
PROVIDERS: PCP Family Medicine; Visit Provider Family Medicine
DX: I11.0 Hypertensive heart disease with heart failure (principal); I50.9 Heart failure, unspecified; E11.9 Type 2 diabetes mellitus without complications
CPT/HCPCS: 36415; 80053; 85025

== ENCOUNTER 2022-12-10 00:37 | Inpatient (IN) | payer MEDICARE, MEDICAID, SELFPAY ==
[2017-02-20 12:18] VITALS: BMI 46.4
[2022-12-10] VITALS (60 sets, daily range): BP systolic 51–127; BP diastolic 23–77; PULSE 82–115; RESP 12–47; TEMP 36.4–38.1; O2SAT 92–100; BMI 38.7; BMI 39.2
--- NOTE | 2022-12-10 01:08 | RAD_ITS ---
EXAM: XR CHEST, 1 VIEW CLINICAL INDICATION: fever TECHNIQUE: Frontal view of the chest. COMPARISON: 12/09/2022 at 1:35 PM. FINDINGS: LUNGS AND PLEURAL SPACES: Question of patchy left retrocardiac opacity. No pneumothorax. No effusion. HEART: Status post coronary artery bypass graft. MEDIASTINUM: Central airways and mediastinal contour are unremarkable. BONES/JOINTS: Sternal wires. SOFT TISSUES: Unremarkable. RAD/Chest 1 View (Portable) IMPRESSION: 1. Question of patchy left retrocardiac opacity. Consider CT for further evaluation. 2. Status post coronary artery bypass graft. Electronically Signed: Zeferino Yi MD at 2:08 EDT ,
[2022-12-10 01:30] LABS: Blood Gas Specimen Type VEN; O2 Delivery Device Cannula; VBG BASE EXCESS -1 mmol/L (-1.0-3.5); VBG Bicarbonate 24 mmol/L (22-26); VBG PO2 47 mmHg (25-40); VBG SO2 85 % (50-70); VBG TCO2 25 mmol/L (23-33); VBG pCO2 33.7 mmHg (41-51); VBG pH 7.45 (7.32-7.42)
[2022-12-10 01:32] LABS: Absolute Lymphocyte Count 0.63 X10^3/uL (0.83-4.51); Absolute Neutrophil Count 15.1 X10^3/uL (2.0-7.7); Basophil# 0.05 X10^3/uL; Basophil% 0.3 % (0-1); Eosinophil# 0.01 X10^3/uL; Eosinophils% 0.1 % (0-5); Hematocrit 37.2 % (40-54); Hemoglobin 11.5 g/dL (13.0-16.5); Lymphocyte # 0.63 X10^3/ul (0.83-4.51); Lymphocyte % 3.6 % (19-41); Mean Corp Hgb Conc 30.9 g/dL (32-36); Mean Corpuscular Hgb 28.8 pg (27.0-32.0); Monocyte# 1.43 X10^3/uL; Monocyte% 8.3 % (0-10); NRBC Flagged by Analyzer 0 % (0-5); Neutrophil # 15.05 X10^3/uL (2.7-7.7); Neutrophil % 87.1 % (47-70); POSITIVE MORPHOLOGY YES; Platelet Count 193 K/mm3 (150-450); RBC Distribution Width CV 14.9 % (11.6-14.6); RBC Distribution Width SD 50.9 fl (35.1-43.9); White Blood Count 17.3 K/mm3 (4.4-11.0)
--- NOTE | 2022-12-10 01:32 | CT_ITS ---
EXAM: CT PELVIS WITHOUT INTRAVENOUS CONTRAST CLINICAL INDICATION: ? Osteomyelitis of the sacrum TECHNIQUE: Helically acquired images were obtained of the pelvis without intravenous contrast. This CT exam was performed using one or more of the following dose reduction techniques: automated exposure control, adjustment of the mA and/or kV according to patient size, and/or use of iterative reconstruction technique. RADIATION DOSE: CTDIvol = 66.49 mGy, DLP = 2191.57 mGy-cm COMPARISON: CT scan of the pelvis 01/21/2018. FINDINGS: BOWEL: Unremarkable as visualized. No bowel distention. No focal inflammatory change. APPENDIX: No evidence of acute appendicitis. INTRAPERITONEAL SPACE: Unremarkable. No ascites or other fluid collection. No free air. BLADDER: Unremarkable. REPRODUCTIVE: Unremarkable as visualized. No mass. BONES/JOINTS: Coccyx is absent. There is some sclerosis of the fifth sacral element. Postoperative changes in the lumbosacral spine posterior fixation L4-S1 and laminectomies at L4 and L5. No suspicious lytic or blastic abnormality. SOFT TISSUES: Moderate sacral decubitus ulcer. No pelvic wall hernia. LYMPH NODES: Unremarkable. No enlarged lymph nodes. CT/Pelvis without IV Contrast IMPRESSION: 1. Coccyx is absent. There is some sclerosis of the fifth sacral element. Osteomyelitis not excluded. 2. Moderate sacral decubitus ulcer. 3. Postoperative changes in the lumbosacral spine posterior fixation L4-S1 and laminectomies at L4 and L5. Electronically Signed: Zeferino Yi MD at 2:12 EDT ,
[2022-12-10 01:34] LABS: Differential Indicated SCAN CRITERIA MET
[2022-12-10] MEDS: Clindamycin 900 MG/50 ML BAG 75 MG IV (01:38)
[2022-12-10 01:39] LABS: Lactic Acid 2.9 mmol/L (0.4-1.9)
--- NOTE | 2022-12-10 01:43 | EX.ED.DYSGE1 ---
HPI History of Present Illness Chief Complaint: Cellulitis Informant: patient, spouse/S.O. 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 He was seen on December 09 at approximately noon secondary to his syncopal event and found to have questionable UTI from his chronic indwelling suprapubic catheter and cellulitis from his sacral decubitus ulcer. He was started on antibiotics and discharged back to the snf. While the snf patient then developed a fever of approximately 101 and reported his mental status became diminished and blood pressure began to drop and secondary to the worsening symptoms was sent back to the hospital for reevaluation [facility] Medical History Acute on chronic systolic (congestive) heart failure Acute pulmonary edema (09/14/20) Acute respiratory failure with hypoxia (09/14/20) Acute respiratory failure with hypoxia and hypercapnia Alcohol abuse Allergic rhinitis Anemia Anxiety Atherosclerosis Atherosclerosis of coronary artery bypass graft without angina pectoris Benign prostatic hyperplasia Chronic combined systolic and diastolic CHF (congestive heart failure) COPD (chronic obstructive pulmonary disease) COPD with acute exacerbation CVA (cerebral vascular accident) Depression Diabetes Dysphagia Essential (primary) hypertension GERD (gastroesophageal reflux disease) Heart failure History of non-ST elevation myocardial infarction (NSTEMI) (02/21/19) HTN (hypertension) Hyperlipidemia Intraparenchymal hemorrhage of brain Intraventricular hemorrhage Ischemic cardiomyopathy Morbid obesity Myocardial infarct Neuromuscular dysfunction of bladder Nicotine dependence Obesity Obstructive sleep apnea Osteomyelitis of sacrum Recurrent UTI (urinary tract infection) Reflux esophagitis Restless leg syndrome Right hemiplegia RLS (restless legs syndrome) Sleep apnea Subarachnoid hemorrhage Subdural hematoma Tobacco abuse Traumatic brain injury Type 2 diabetes mellitus Home Medications amantadine HCl 100 mg capsule 100 mg PO DAILY PARKINSON 04/17/18 [History Last Taken 07/19/21] pantoprazole 40 mg tablet,delayed release 40 mg PO DAILY STOMACH 04/17/18 [History Last Taken 07/19/21] pramipexole 0.25 mg tablet 0.25 mg PO QHS PARKINSONS 04/17/18 [History Last Taken 07/18/21] pravastatin 80 mg tablet 80 mg PO QHS CHOLESTEROL 04/17/18 [History Last Taken 07/18/21] nitroglycerin 0.4 mg sublingual tablet 0.4 mg sublingual PRN PRN CHEST PAIN 02/20/19 [History Last Taken Unknown] aspirin 81 mg chewable tablet 81 mg PO DAILY@0800 heart health 02/24/19 [History Last Taken 07/19/21] melatonin 3 mg disintegrating tablet 3 mg PO QHS sleep 09/14/20 [History Last Taken 07/18/21] fluticasone propionate 110 mcg/actuation HFA aerosol inhaler 1 puff inhalation BID allergies 02/17/21 [History Last Taken 07/19/21] insulin aspart U-100 100 unit/mL (3 mL) subcutaneous pen (Novolog FlexPen U-100 Insulin aspart) 15 unit subcut TIDCM blood sugar 02/17/21 [History Last Taken 07/19/21] tamsulosin 0.4 mg capsule 0.4 mg PO QHS prostate 02/17/21 [History Last Taken 07/18/21] carvedilol 25 mg tablet 25 mg PO BID #0 tabs 02/20/21 [Rx Last Taken 07/19/21] potassium chloride 20 mEq tablet,extended release(part/cryst) 40 meq (2 x 20 mEq) PO DAILY supplement 90 days #90 tabs 02/20/21 [Rx Last Taken 07/19/21] spironolactone 25 mg tablet 25 mg PO DAILY #30 tabs 04/29/21 [Rx Last Taken 07/19/21] aluminum-magnesium hydroxide 225 mg-200 mg/5 mL oral suspension 30 ml PO Q4H PRN GI distress 10/11/21 [History Last Taken Unknown] bisacodyl 10 mg rectal suppository 10 mg CA DAILY PRN constipaiton 10/11/21 [History Last Taken Unknown] duloxetine 60 mg capsule,delayed release 60 mg PO BID depression 10/11/21 [History Last Taken Unknown] fluoxetine 40 mg capsule 60 mg PO QPM depression 10/11/21 [History Last Taken Unknown] guaifenesin 200 mg/5 mL oral liquid 400 mg PO Q4H PRN Cough 10/11/21 [History Last Taken Unknown] magnesium hydroxide 400 mg/5 mL oral suspension (Milk of Magnesia) 30 ml PO DAILY PRN consipation 10/11/21 [History Last Taken Unknown] nystatin 100,000 unit/gram topical powder 1 applic topical DAILY PRN excoriation 10/11/21 [History Last Taken Unknown] sacubitril 49 mg-valsartan 51 mg tablet (Entresto) 1 tab PO BID #60 tabs 10/11/21 [Rx Last Taken Unknown] sodium phosphates 19 gram-7 gram/118 mL enema (Fleet Enema) 118 ml CA ONCE PRN Constipation 10/11/21 [History Last Taken Unknown] cetirizine 10 mg tablet (Zyrtec) 10 mg PO DAILY sinus 07/27/22 [History Last Taken Unknown] gabapentin 300 mg capsule 300 mg PO QHS neuropathy 07/27/22 [History Last Taken Unknown] furosemide 40 mg tablet 40 mg PO BID CHF 10/05/22 [History Last Taken Unknown] albuterol sulfate 2.5 mg/3 mL (0.083 %) solution for nebulization 2.5 mg (3 mL) inhalation Q2H PRN PRN SOB/Wheezing #0 mL 10/08/22 [Rx Last Taken Unknown] insulin lispro 100 unit/mL subcutaneous pen (Humalog KwikPen (U-100) Insulin) See Protocol subcut ACHS #0 mL 10/08/22 [Rx Last Taken Unknown] ipratropium 0.5 mg-albuterol 3 mg (2.5 mg base)/3 mL nebulization soln 3 ml inhalation Q4HWA.RT #0 mL 10/08/22 [Rx Last Taken Unknown] menthol 0.44 %-zinc oxide 20.6 % topical ointment (Calmoseptine) 1 applic topical BID #0 grams 10/08/22 [Rx Last Taken Unknown] oxycodone 5 mg tablet 5 mg PO TID 2 days #6 tabs 10/08/22 [Rx Last Taken Unknown] prednisone 20 mg tablet 40 mg (2 x 20 mg) PO BREAKFAST #0 tabs 10/08/22 [Rx Last Taken Unknown] sennosides 8.6 mg-docusate sodium 50 mg tablet 1 tab-cap PO BID constipation 10/31/22 [History Last Taken Unknown] trazodone 150 mg tablet 150 mg PO QHS 10/31/22 [History Last Taken Unknown] clindamycin HCl 300 mg capsule (Cleocin HCl) 300 mg PO Q6H #40 CAPSULES 12/09/22 [Rx Last Taken Unknown] acetaminophen 325 mg tablet 650 mg PO Q4H PRN PAIN/FEVER 12/10/22 [History Last Taken Unknown] acetaminophen 650 mg rectal suppository 650 mg CA Q4H PRN fever or pain 12/10/22 [History Last Taken Unknown] clopidogrel 75 mg tablet 75 mg PO DAILY 12/10/22 [History Last Taken Unknown] dextrose 40 % oral gel (Glucose Gel) 15 g PO Q15M PRN hypoglycemia 12/10/22 [History Last Taken Unknown] glucagon 1 mg solution for injection (Glucagon Emergency Kit) 1 mg IM Q20M PRN hypoglycemia 12/10/22 [History Last Taken Unknown] metformin 500 mg tablet 500 mg PO BID 12/10/22 [History Last Taken Unknown] Allergy/AdvReac Type Severity Reaction Status Date / Time atorvastatin Allergy PT UNSURE Verified 12/10/22 00:51 OF REACTION cilostazol Allergy Hives Verified 12/10/22 00:51 colestipol Allergy Hives Verified 12/10/22 00:51 diltiazem Allergy Hives Verified 12/10/22 00:51 gemfibrozil Allergy Hives Verified 12/10/22 00:51 naproxen [From Naprosyn] Allergy Hives Verified 12/10/22 00:51 niacin Allergy PT UNSURE Verified 12/10/22 00:51 OF REACTION Nitrate Analogues Allergy Hives Verified 12/10/22 00:51 Penicillins Allergy Hives Verified 12/10/22 00:51 pravastatin Allergy NEEDS Verified 12/10/22 00:51 FOLLOW-UP procainamide Allergy Hives Verified 12/10/22 00:51 procaine Allergy NEEDS Verified 12/10/22 00:51 FOLLOW-UP rosuvastatin Allergy Hives Verified 12/10/22 00:51 simvastatin Allergy Hives Verified 12/10/22 00:51 isosorbide AdvReac Severe Unknown Verified 12/10/22 00:51 Family History Brother Heart disease Father Heart disease Alzheimer disease Mother No history of heart disease Surgical History Chronic suprapubic catheter H/O coronary angioplasty H/O coronary artery bypass surgery (2001) History of coronary artery stent placement (09/18/20) History of left heart catheterization (04/29/21) PEG (percutaneous endoscopic gastrostomy) adjustment/replacement/removal Status post ileostomy Status post osteotomy (01/2018) Social History housing: snf Smoking Status: Current some day smoker tobacco type: cigarettes second hand exposure: Yes alcohol intake: former substance use type: does not use caffeine: Yes Type: coffee Number of servings: 3 what type of physical activity do you participate in: none ROS ROS ED Constitutional Constitutional ED: Reports chills and fever(s) ENT ENT ED: Denies rhinorrhea or sore throat Cardiovascular Cardiovascular: Denies chest pain Respiratory/Chest Respiratory/Chest: Reports cough and dyspnea Gastrointestinal Gastrointestinal: Denies abdominal pain, diarrhea, nausea or vomiting Musculoskeletal Musculoskeletal: Reports myalgias Integumentary Denies rash Neurologic Neurologic: Denies headache(s) Hematologic/Lymphatic Hematologic/Lymphatic: Reports easy bleeding and easy bruising EXAM Physical Exam Const Vital Signs: 12/10/22 00:40 12/10/22 00:43 12/10/22 00:46 Temperature 100.6 F H 100.6 F H Temperature Source Oral Oral Pulse Rate 113 H 114 H Respiratory Rate 42 H 47 H Respiratory Effort Short of Breath Respiratory Pattern Tachypnea Blood Pressure 98/50 L 98/50 L Blood Pressure Mean 66 66 Pulse Ox 92 92 Oxygen Delivery Method Nasal Cannula Nasal Cannula Oxygen Flow Rate (L/min) 6 6 12/10/22 01:17 12/10/22 01:43 12/10/22 02:00 Temperature 99 F 98.5 F Temperature Source Oral Oral Pulse Rate 115 H 112 H 106 H Respiratory Rate 42 H 38 H 36 H Respiratory Effort Respiratory Pattern Blood Pressure 98/69 98/69 111/59 L Blood Pressure Mean 78 78 76 Pulse Ox 96 96 95 Oxygen Delivery Method Nasal Cannula Nasal Cannula Nasal Cannula Oxygen Flow Rate (L/min) 6 5 6 12/10/22 02:00 12/10/22 03:00 12/10/22 04:00 Temperature 98.4 F 98.3 F Temperature Source Oral Oral Pulse Rate 106 H 98 95 Respiratory Rate 36 H 38 H 30 H Respiratory Effort Respiratory Pattern Blood Pressure 111/59 L 111/59 L 101/77 Blood Pressure Mean 76 76 85 Pulse Ox 95 96 92 Oxygen Delivery Method Nasal Cannula Nasal Cannula Nasal Cannula Oxygen Flow Rate (L/min) 6 5 5 Positive well nourished, well developed and obese General Appearance ED: well developed Nutritional Appearance: obese HEENT HEENT Narrative: No tongue or lip swelling no oral lesions no airway edema or compromise Eyes PERRL and EOMs intact bilaterally Neck supple and no JVD Neck Narrative: No nuchal rigidity or meningeal signs present Resp Resp Narrative: Patient is tachypneic with diminished breath sounds throughout and faint rhonchi. He has crackling sounds in the upper airway Cardio regular rhythm Rate: tachycardic and other Other Details: Tachycardic rate with regular rhythm GI normal to inspection, nondistended, normoactive bowel sounds, non-tender, non-distended and no masses GI Narrative: Abdomen is obese soft nontender nondistended with hypoactive bowel sounds. There is a colostomy in place in the left lower quadrant draining brown stool. No voluntary guarding or rigidity. No pulsatile mass or fluid wave. No organomegaly in the lower abdomen to suggest urinary retention Auscultation: normoactive bowel sounds Palpation: soft Narrative: Patient has a sacral stage II decubitus ulcer with packing present. There is no active drainage or discharge noted. There is surrounding erythema that is blanchable in nature with mild soft tissue breakdown but no crepitance. There is no lymphangitic streaking but there is concern that this is developing cellulitis Patient has a indwelling suprapubic catheter noted Extremity Extremity Narrative: +1 pitting edema to the bilateral lower extremities is equal and symmetric with negative Homans' sign bilaterally Patient has paralysis of right arm and bilateral lower legs Neuro oriented x3 and CN's II-XII intact bilaterally Neuro Narrative: Patient is awake and alert and at his baseline mental status he has chronic changes from previous CVA no new or acute findings Sensorium / Orientation: alert Psych mental status grossly normal Skin Skin Narrative: Soft tissue changes noted in the sacrum consistent with sacral decubitus ulcer with surrounding cellulitis MDM MDM MDM Narrative Medical decision making narrative: Patient presented to the ER with low-grade fever 100.6 with this he is tachycardic and borderline hypotensive. With concern for septicemia basic blood work with blood cultures and lactic acid were ordered and patient was started on 2 L of normal saline. I did not provide a 30/kg fluid boluses patient is morbidly obese with a BMI of 141 and he does have a history of CHF. With concern he could be developing osteomyelitis from a sacral decubitus ulcer he was started on vancomycin as well as Cipro and clindamycin as he has a penicillin allergy. He was given Tylenol for fever control. With reduced feeding the fever and provide IV hydration patient's blood pressure and heart rate improved. He is on oxygen but wears this nightly according to snf and patient's . In order to check for recurrent/missed pneumonia a chest x-ray was obtained which questioned the retrocardiac opacity but otherwise no acute finding. CT scan of the pelvis was also obtained which shows some inflammation along the sacrum which is nonspecific but cannot exclude osteomyelitis. Patient blood work shows elevation of the white count and lactic acid value concerning for the infectious process. Kidney function is also elevated going in concert with acute on chronic kidney injury. At this time the patient's had improvement from his presentation with IV fluids and improvement of the temperature but as his work-up is showing changes concerning for septicemia and he could progress to endorgan damage patient will need to be kept in the hospital for further evaluation. Medicine was contacted secondary to this and they do agree to cut the patient to service at this time. History & Record Review Discussion w/independent historian: Patient and Family Lab Data Attestation: I reviewed the patient's lab results. Labs: Laboratory Results - last 24 hr 12/10/22 12/10/22 00:47 00:50 WBC 17.3 H RBC 4.00 L Hgb 11.5 L Hct 37.2 L MCV 93.0 MCH 28.8 MCHC 30.9 L RDW Std Deviation 50.9 H RDW Coeff of Sherin 14.9 H Plt Count 193 MPV 12.0 Immature Gran % (Auto) 0.600 Neut % (Auto) 87.1 H Lymph % (Auto) 3.6 L Power % (Auto) 8.3 Eos % (Auto) 0.1 Baso % (Auto) 0.3 Absolute Neuts (auto) 15.1 H Absolute Lymphs (auto) 0.63 L Nucleated RBC % 0 Differential Comment SCANNED Sodium 137 Potassium 5.1 Chloride 105 Carbon Dioxide 23.0 Anion Gap 9 BUN 48 H Creatinine 2.62 H Estim Creat Clear Calc 30.46 Est GFR (MDRD) Af Amer 31 L Est GFR (MDRD) Non-Af 26 L BUN/Creatinine Ratio 18.3 Glucose 263 H Lactic Acid 2.9 H* Calcium 9.5 B-Natriuretic Peptide 423.4 H Procalcitonin 27.12 H Acetone Level NEGATIVE ABG Data ABG results: ABG 12/10/22 01:27 Specimen Type ALEXY VBG pH 7.45 H VBG pO2 47 H VBG HCO3 24 VBG Total CO2 25 VBG O2 Sat (Calc) 85 H VBG Base Excess -1 POC Mix VBG pCO2 Pt Tmp 33.7 L O2 Delivery Device Cannula Liter Flow 6.0 Radiography Diagnostic Testing: Clinical Impression(s) from Imaging Studies Chest X-Ray 12/10/22 01:08 IMPRESSION: 1. Question of patchy left retrocardiac opacity. Consider CT for further evaluation. 2. Status post coronary artery bypass graft. Electronically Signed: Zeferino Yi MD at 2:08 EDT , Pelvis CT 12/10/22 01:32 IMPRESSION: 1. Coccyx is absent. There is some sclerosis of the fifth sacral element. Osteomyelitis not excluded. 2. Moderate sacral decubitus ulcer. 3. Postoperative changes in the lumbosacral spine posterior fixation L4-S1 and laminectomies at L4 and L5. Electronically Signed: Zeferino Yi MD at 2:12 EDT , Chest x-ray as interpreted by the emergency medicine physician questions a left lower lobe retrocardiac opacity Management Discussion w/another healthcare provider: Hospitalist Discharge Plan Triage Chief Complaint: Cellulitis ED Provider: Pablo Anaya Dx/Rx/DC Orders Clinical Impression: Decubitus ulcer of sacral region, Insulin dependent diabetes mellitus, Septicemia, Cellulitis, Acute kidney injury superimposed on CKD Prescriptions: No Action aluminum-magnesium hydroxide 225-200 mg/5 mL suspension 30 ml PO Q4H PRN (Reason: GI distress) bisacodyl 10 mg suppository 10 mg CA DAILY PRN (Reason: constipaiton) duloxetine 60 mg capsule,delayed release(DR/EC) 60 mg PO BID Fleet Enema 19-7 gram/118 mL enema 118 ml CA ONCE PRN (Reason: Constipation) guaifenesin 200 mg/5 mL liquid 400 mg PO Q4H PRN (Reason: Cough) magnesium hydroxide [Milk of Magnesia] 400 mg/5 mL suspension 30 ml PO DAILY PRN (Reason: consipation) nystatin 100,000 unit/gram powder 1 applic topical DAILY PRN (Reason: excoriation) fluoxetine 40 mg capsule 60 mg PO QPM Entresto 49-51 mg tablet 1 tab PO BID Qty: 60 11RF trazodone 150 mg tablet 150 mg PO QHS amantadine HCl 100 MG capsule 100 mg PO DAILY pravastatin 80 MG tablet 80 mg PO QHS pantoprazole 40 MG tablet 40 mg PO DAILY pramipexole 0.25 MG tablet 0.25 mg PO QHS nitroglycerin 0.4 MG tablet, sublingual 0.4 mg sublingual PRN PRN (Reason: CHEST PAIN) aspirin 81 MG tablet,chewable 81 mg PO DAILY@0800 sennosides-docusate sodium 8.6-50 mg tablet 1 tab-cap PO BID melatonin 3 MG tablet,disintegrating 3 mg PO QHS tamsulosin 0.4 mg Capsule 0.4 mg PO QHS fluticasone propionate 110 mcg/actuation Hfa Aerosol Inhaler 1 puff INHALATION BID insulin aspart U-100 [Novolog FlexPen U-100 Insulin] 100 unit/mL (3 mL) Insulin Pen 15 unit SUBCUT TIDCM carvedilol 25 mg Tablet 25 mg PO BID Qty: 0 0RF potassium chloride 20 mEq tablet,ER particles/crystals 40 meq PO DAILY 90 Days Qty: 90 0RF spironolactone 25 mg tablet 25 mg PO DAILY Qty: 30 0RF cetirizine [Zyrtec] 10 mg Tablet 10 mg PO DAILY gabapentin 300 mg capsule 300 mg PO QHS furosemide 40 mg tablet 40 mg PO BID ipratropium-albuterol 0.5 mg-3 mg(2.5 mg base)/3 mL Solution For Nebulization 3 ml inhalation Q4HWA.RT Qty: 0 0RF albuterol sulfate 2.5 mg /3 mL (0.083 %) Solution For Nebulization 2.5 mg inhalation Q2H PRN PRN (Reason: SOB/Wheezing) Qty: 0 0RF prednisone 20 mg Tablet 40 mg PO BREAKFAST Qty: 0 0RF insulin lispro [Humalog KwikPen Insulin] 100 unit/mL Insulin Pen See Protocol subcut ACHS Qty: 0 0RF Protocol: 4. Sliding Scale Insulin High-Med Dosing Condition: 150-199 mg/dl = 2 units Condition: 200-259 mg/dl = 4 units Condition: 260-324 mg/dl = 6 units Condition: 325-374 mg/dl = 8 units Condition: 375-409 mg/dl = 10 units Condition: 410-449 mg/dl = 11 units Condition: Greater than 449 call physician Protocol Text: - Use for Total Daily Dose of Insulin 56-80 units - Patient who are insulin resistant or septic HIGH MEDIUM DOSING ALGORITHM menthol-zinc oxide [Calmoseptine] 0.44-20.6 % Ointment 1 applic topical BID Qty: 0 0RF Protocol: *Topical Application Instructions APPLICATION INSTRUCTIONS: groin/ coccyx oxycodone 5 MG tablet 5 mg PO TID 2 Days Qty: 6 0RF acetaminophen 325 mg tablet 650 mg PO Q4H PRN (Reason: PAIN/FEVER) acetaminophen 650 mg suppository 650 mg CA Q4H PRN (Reason: fever or pain) metformin 500 mg tablet 500 mg PO BID clopidogrel 75 mg tablet 75 mg PO DAILY Glucagon Emergency Kit (human) 1 mg recon soln 1 mg IM Q20M PRN (Reason: hypoglycemia) Rx Instructions: until target blood sugar attained dextrose [Glucose Gel] 40 % gel 15 g PO Q15M PRN (Reason: hypoglycemia) Rx Instructions: until symptoms of low blood sugar are controlled clindamycin HCl [Cleocin HCl] 300 mg capsule 300 mg PO Q6H Qty: 40 0RF Primary Care Provider: Phillip Lindo Referrals: Phillip Lindo MD [Primary Care Provider] - Disposition Disposition: Acute Care Hospital [facility]
[2022-12-10 01:50] LABS: Anion Gap 9 (5-15); BUN 48 mg/dL (7-18); BUN/Creat Ratio 18.3 RATIO (10-20); Calcium,Total 9.5 mg/dL (8.5-10.1); Chloride 105 mmol/L (98-107); Creatinine, Serum 2.62 mg/dL (0.70-1.30); EST Glomerular Filtration Rate 26 mL/min (>60); Est Glom Filt Rate - Afr Amer 31 mL/min (>60); Estimated Creatinine Clearance 30.46 ml/min; Glucose 263 mg/dL (74-106); Potassium 5.1 mmol/L (3.5-5.1); Sodium Level 137 mmol/L (136-145)
[2022-12-10 01:54] LABS: Differential Comment SCANNED
[2022-12-10 02:00] LABS: Procalcitonin 27.12 ng/mL (0.00-0.09)
[2022-12-10] MEDS: Acetaminophen 500 MG Tablet 1000 MG PO (02:32)
[2022-12-10] MEDS: 0.9% Normal Saline 1,000 ML 999 ML IV ×2 (02:34→03:35)
[2022-12-10] MEDS: Ciprofloxacin 400 MG/200 ML BAG 200 MG IV (02:34)
[2022-12-10 03:36] LABS: BNP,B-Type NATRIURETIC PEPTIDE 423.4 pg/mL (0-100)
[2022-12-10] MEDS: Glycopyrrolate 0.2 MG/ML Vial 0.1 MG IV (04:18)
--- NOTE | 2022-12-10 05:20 | PCM.HP.STD ---
HPI - General General Date of Admission: 12/10/22 Date of Service: 12/10/22 Chief Complaint: Fever and low blood pressure HPI Narrative FABY GARCIA, is a 72 M with a significant history of morbid obesity and CVA affecting the right side; and who lives at the longterm presenting to the emergency department the second time in 24 hours. The first time he presented because he passed out. Patient was diagnosed with sacral decubitus ulcer and cellulitis and was discharged back to longterm on clindamycin. Patient returned again because of fever and low blood pressure. Also patient has noisy breathing. [facility] Medical History Acute on chronic systolic (congestive) heart failure Acute pulmonary edema (09/14/20) Acute respiratory failure with hypoxia (09/14/20) Acute respiratory failure with hypoxia and hypercapnia Alcohol abuse Allergic rhinitis Anemia Anxiety Atherosclerosis Atherosclerosis of coronary artery bypass graft without angina pectoris Benign prostatic hyperplasia Chronic combined systolic and diastolic CHF (congestive heart failure) COPD (chronic obstructive pulmonary disease) COPD with acute exacerbation CVA (cerebral vascular accident) Depression Diabetes Dysphagia Essential (primary) hypertension GERD (gastroesophageal reflux disease) Heart failure History of non-ST elevation myocardial infarction (NSTEMI) (02/21/19) HTN (hypertension) Hyperlipidemia Intraparenchymal hemorrhage of brain Intraventricular hemorrhage Ischemic cardiomyopathy Morbid obesity Myocardial infarct Neuromuscular dysfunction of bladder Nicotine dependence Obesity Obstructive sleep apnea Osteomyelitis of sacrum Recurrent UTI (urinary tract infection) Reflux esophagitis Restless leg syndrome Right hemiplegia RLS (restless legs syndrome) Sleep apnea Subarachnoid hemorrhage Subdural hematoma Tobacco abuse Traumatic brain injury Type 2 diabetes mellitus Home Medications amantadine HCl 100 mg capsule 100 mg PO DAILY PARKINSON 04/17/18 [History Last Taken 07/19/21] pantoprazole 40 mg tablet,delayed release 40 mg PO DAILY STOMACH 04/17/18 [History Last Taken 07/19/21] pramipexole 0.25 mg tablet 0.25 mg PO QHS PARKINSONS 04/17/18 [History Last Taken 07/18/21] pravastatin 80 mg tablet 80 mg PO QHS CHOLESTEROL 04/17/18 [History Last Taken 07/18/21] nitroglycerin 0.4 mg sublingual tablet 0.4 mg sublingual PRN PRN CHEST PAIN 02/20/19 [History Last Taken Unknown] aspirin 81 mg chewable tablet 81 mg PO DAILY@0800 heart health 02/24/19 [History Last Taken 07/19/21] melatonin 3 mg disintegrating tablet 3 mg PO QHS sleep 09/14/20 [History Last Taken 07/18/21] fluticasone propionate 110 mcg/actuation HFA aerosol inhaler 1 puff inhalation BID allergies 02/17/21 [History Last Taken 07/19/21] insulin aspart U-100 100 unit/mL (3 mL) subcutaneous pen (Novolog FlexPen U-100 Insulin aspart) 15 unit subcut TIDCM blood sugar 02/17/21 [History Last Taken 07/19/21] tamsulosin 0.4 mg capsule 0.4 mg PO QHS prostate 02/17/21 [History Last Taken 07/18/21] carvedilol 25 mg tablet 25 mg PO BID #0 tabs 02/20/21 [Rx Last Taken 07/19/21] potassium chloride 20 mEq tablet,extended release(part/cryst) 40 meq (2 x 20 mEq) PO DAILY supplement 90 days #90 tabs 02/20/21 [Rx Last Taken 07/19/21] spironolactone 25 mg tablet 25 mg PO DAILY #30 tabs 04/29/21 [Rx Last Taken 07/19/21] aluminum-magnesium hydroxide 225 mg-200 mg/5 mL oral suspension 30 ml PO Q4H PRN GI distress 10/11/21 [History Last Taken Unknown] bisacodyl 10 mg rectal suppository 10 mg VA DAILY PRN constipaiton 10/11/21 [History Last Taken Unknown] duloxetine 60 mg capsule,delayed release 60 mg PO BID depression 10/11/21 [History Last Taken Unknown] fluoxetine 40 mg capsule 60 mg PO QPM depression 10/11/21 [History Last Taken Unknown] guaifenesin 200 mg/5 mL oral liquid 400 mg PO Q4H PRN Cough 10/11/21 [History Last Taken Unknown] magnesium hydroxide 400 mg/5 mL oral suspension (Milk of Magnesia) 30 ml PO DAILY PRN consipation 10/11/21 [History Last Taken Unknown] nystatin 100,000 unit/gram topical powder 1 applic topical DAILY PRN excoriation 10/11/21 [History Last Taken Unknown] sacubitril 49 mg-valsartan 51 mg tablet (Entresto) 1 tab PO BID #60 tabs 10/11/21 [Rx Last Taken Unknown] sodium phosphates 19 gram-7 gram/118 mL enema (Fleet Enema) 118 ml VA ONCE PRN Constipation 10/11/21 [History Last Taken Unknown] cetirizine 10 mg tablet (Zyrtec) 10 mg PO DAILY sinus 07/27/22 [History Last Taken Unknown] gabapentin 300 mg capsule 300 mg PO QHS neuropathy 07/27/22 [History Last Taken Unknown] furosemide 40 mg tablet 40 mg PO BID CHF 10/05/22 [History Last Taken Unknown] albuterol sulfate 2.5 mg/3 mL (0.083 %) solution for nebulization 2.5 mg (3 mL) inhalation Q2H PRN PRN SOB/Wheezing #0 mL 10/08/22 [Rx Last Taken Unknown] insulin lispro 100 unit/mL subcutaneous pen (Humalog KwikPen (U-100) Insulin) See Protocol subcut ACHS #0 mL 10/08/22 [Rx Last Taken Unknown] ipratropium 0.5 mg-albuterol 3 mg (2.5 mg base)/3 mL nebulization soln 3 ml inhalation Q4HWA.RT #0 mL 10/08/22 [Rx Last Taken Unknown] menthol 0.44 %-zinc oxide 20.6 % topical ointment (Calmoseptine) 1 applic topical BID #0 grams 10/08/22 [Rx Last Taken Unknown] oxycodone 5 mg tablet 5 mg PO TID 2 days #6 tabs 10/08/22 [Rx Last Taken Unknown] prednisone 20 mg tablet 40 mg (2 x 20 mg) PO BREAKFAST #0 tabs 10/08/22 [Rx Last Taken Unknown] sennosides 8.6 mg-docusate sodium 50 mg tablet 1 tab-cap PO BID constipation 10/31/22 [History Last Taken Unknown] trazodone 150 mg tablet 150 mg PO QHS 10/31/22 [History Last Taken Unknown] clindamycin HCl 300 mg capsule (Cleocin HCl) 300 mg PO Q6H #40 CAPSULES 12/09/22 [Rx Last Taken Unknown] acetaminophen 325 mg tablet 650 mg PO Q4H PRN PAIN/FEVER 12/10/22 [History Last Taken Unknown] acetaminophen 650 mg rectal suppository 650 mg VA Q4H PRN fever or pain 12/10/22 [History Last Taken Unknown] clopidogrel 75 mg tablet 75 mg PO DAILY 12/10/22 [History Last Taken Unknown] dextrose 40 % oral gel (Glucose Gel) 15 g PO Q15M PRN hypoglycemia 12/10/22 [History Last Taken Unknown] glucagon 1 mg solution for injection (Glucagon Emergency Kit) 1 mg IM Q20M PRN hypoglycemia 12/10/22 [History Last Taken Unknown] metformin 500 mg tablet 500 mg PO BID 12/10/22 [History Last Taken Unknown] Allergy/AdvReac Type Severity Reaction Status Date / Time atorvastatin Allergy PT UNSURE Verified 12/10/22 00:51 OF REACTION cilostazol Allergy Hives Verified 12/10/22 00:51 colestipol Allergy Hives Verified 12/10/22 00:51 diltiazem Allergy Hives Verified 12/10/22 00:51 gemfibrozil Allergy Hives Verified 12/10/22 00:51 naproxen [From Naprosyn] Allergy Hives Verified 12/10/22 00:51 niacin Allergy PT UNSURE Verified 12/10/22 00:51 OF REACTION Nitrate Analogues Allergy Hives Verified 12/10/22 00:51 Penicillins Allergy Hives Verified 12/10/22 00:51 pravastatin Allergy NEEDS Verified 12/10/22 00:51 FOLLOW-UP procainamide Allergy Hives Verified 12/10/22 00:51 procaine Allergy NEEDS Verified 12/10/22 00:51 FOLLOW-UP rosuvastatin Allergy Hives Verified 12/10/22 00:51 simvastatin Allergy Hives Verified 12/10/22 00:51 isosorbide AdvReac Severe Unknown Verified 12/10/22 00:51 Family History Brother Heart disease Father Heart disease Alzheimer disease Mother No history of heart disease Surgical History Chronic suprapubic catheter H/O coronary angioplasty H/O coronary artery bypass surgery (2001) History of coronary artery stent placement (09/18/20) History of left heart catheterization (04/29/21) PEG (percutaneous endoscopic gastrostomy) adjustment/replacement/removal Status post ileostomy Status post osteotomy (01/2018) Social History housing: longterm Smoking Status: Current some day smoker tobacco type: cigarettes second hand exposure: Yes alcohol intake: former substance use type: does not use caffeine: Yes Type: coffee Number of servings: 3 what type of physical activity do you participate in: none ROS ROS Narrative Pertinent positives and pertinent negatives as noted in HPI. All other systems were reviewed and are negative Vital Signs Vital Signs Vital Signs: 12/10/22 00:40 12/10/22 00:43 12/10/22 00:46 Temperature 100.6 F H 100.6 F H Temperature Source Oral Oral Pulse Rate 113 H 114 H Respiratory Rate 42 H 47 H Respiratory Effort Short of Breath Respiratory Pattern Tachypnea Blood Pressure 98/50 L 98/50 L Blood Pressure Mean 66 66 Pulse Ox 92 92 Oxygen Delivery Method Nasal Cannula Nasal Cannula Oxygen Flow Rate (L/min) 6 6 12/10/22 01:17 12/10/22 01:43 12/10/22 02:00 Temperature 99 F 98.5 F Temperature Source Oral Oral Pulse Rate 115 H 112 H 106 H Respiratory Rate 42 H 38 H 36 H Respiratory Effort Respiratory Pattern Blood Pressure 98/69 98/69 111/59 L Blood Pressure Mean 78 78 76 Pulse Ox 96 96 95 Oxygen Delivery Method Nasal Cannula Nasal Cannula Nasal Cannula Oxygen Flow Rate (L/min) 6 5 6 12/10/22 02:00 12/10/22 03:00 12/10/22 04:00 Temperature 98.4 F 98.3 F Temperature Source Oral Oral Pulse Rate 106 H 98 95 Respiratory Rate 36 H 38 H 30 H Respiratory Effort Respiratory Pattern Blood Pressure 111/59 L 111/59 L 101/77 Blood Pressure Mean 76 76 85 Pulse Ox 95 96 92 Oxygen Delivery Method Nasal Cannula Nasal Cannula Nasal Cannula Oxygen Flow Rate (L/min) 6 5 5 12/10/22 04:34 Temperature 98.4 F Temperature Source Oral Pulse Rate 94 Respiratory Rate 32 H Respiratory Effort Respiratory Pattern Blood Pressure 101/77 Blood Pressure Mean 85 Pulse Ox 93 Oxygen Delivery Method Nasal Cannula Oxygen Flow Rate (L/min) 6 Weight Weight: 140.6 kg Body Mass Index (BMI) 38.7 Physical Exam Narrative Physical exam: General: Well-nourished, well-developed. Head: Normocephalic, atraumatic, no tenderness Eyes: Vision is grossly intact. EOMI ENT, no trauma, dry mucous membranes, no rhinorrhea Neck: Nontender, No thyromegaly. CVS: Regular rate and rhythm. S1-S2 present. No murmur, gallop or rub. Respiratory : Tachypnea; rhonchi in upper lung dover. Noisy breathing Abdomen: Soft, nontender, nondistended, normal bowel sounds, no masses : Deferred Back: Nontender, no CVA tenderness. Extremities: Able to raise left upper and left lower extremity. Unable to raise right upper and right lower extremity upon command. Skin: Crevice with pus at sacral decubitus area. Neuro: Alert, oriented, cranial nerves II through XII grossly intact. Psychiatry: Normal mood. Normal affect. Not depressed. Not anxious. Results Lab / Micro Data 12/10/22 00:47 12/10/22 00:47 Labs: Laboratory Results - last 24 hr 12/10/22 00:47: WBC 17.3 H, RBC 4.00 L, Hgb 11.5 L, Hct 37.2 L, MCV 93.0, MCH 28.8, MCHC 30.9 L, RDW Std Deviation 50.9 H, RDW Coeff of Sherin 14.9 H, Plt Count 193, MPV 12.0, Immature Gran % (Auto) 0.600, Neut % (Auto) 87.1 H, Lymph % (Auto) 3.6 L, [place] % (Auto) 8.3, Eos % (Auto) 0.1, Baso % (Auto) 0.3, Absolute Neuts (auto) 15.1 H, Absolute Lymphs (auto) 0.63 L, Nucleated RBC % 0, Differential Comment SCANNED, Sodium 137, Potassium 5.1, Chloride 105, Carbon Dioxide 23.0, Anion Gap 9, BUN 48 H, Creatinine 2.62 H, Estim Creat Clear Calc 30.46, Est GFR (MDRD) Af Amer 31 L, Est GFR (MDRD) Non-Af 26 L, BUN/Creatinine Ratio 18.3, Glucose 263 H, Calcium 9.5, B-Natriuretic Peptide 423.4 H, Procalcitonin 27.12 H, Acetone Level NEGATIVE 12/10/22 00:50: Lactic Acid 2.9 H* Micro: Microbiology 12/10/22 01:23 Nasal Secretion SARS-CoV-2 & FLU Antigen (Rapid) - Final ABG Data ABG results: ABG 12/10/22 01:27 Specimen Type ALEXY VBG pH 7.45 H VBG pO2 47 H VBG HCO3 24 VBG Total CO2 25 VBG O2 Sat (Calc) 85 H VBG Base Excess -1 POC Mix VBG pCO2 Pt Tmp 33.7 L O2 Delivery Device Cannula Liter Flow 6.0 Radiology Impression Chest X-Ray 12/10/22 01:08 IMPRESSION: 1. Question of patchy left retrocardiac opacity. Consider CT for further evaluation. 2. Status post coronary artery bypass graft. Electronically Signed: Zeferino Yi MD at 2:08 EDT , Pelvis CT 12/10/22 01:32 IMPRESSION: 1. Coccyx is absent. There is some sclerosis of the fifth sacral element. Osteomyelitis not excluded. 2. Moderate sacral decubitus ulcer. 3. Postoperative changes in the lumbosacral spine posterior fixation L4-S1 and laminectomies at L4 and L5. Electronically Signed: Zeferino Yi MD at 2:12 EDT , Assessment & Plan Assessment/Plan (1) Septicemia: (2) Acute kidney injury superimposed on CKD: (3) Decubitus ulcer of sacral region: QUALIFIERS: Pressure injury stage: stage 4 Qualified Code(s): L89.154 - Pressure ulcer of sacral region, stage 4 PLAN: Plan Sepsis The patient presented with sepsis due to (likely infected sacral decubitus ulcer) with acute sepsis related organ dysfunction as evidenced by (lactic acidosis and EMANUEL) SIRS criteria: Respiratory rate more than 20 Heart rate more than 90 WBC more than 12,000 (17,300 white count in case of patient) organ dysfunction: Lactic acid of 2.9 on presentation Creatinine more than 2 Trend lactic acid. Follow blood cultures obtained in the emergency department. On first visit patient was put on clindamycin and sent home. On second presentation clindamycin IV, Flagyl IV and ciprofloxacin IV ordered. Of note patient is allergic to penicillins. shelter reportedly he takes prednisone every day since October 2022. We will put patient on hydrocortisone for stress dose steroids. Trend CBC and BMP. 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 EMANUEL on CKD stage IIIa Creatinine on presentation was 2.04 for the first presentation and 2.60 on second presentation. Received normal saline bolus in the emergency department secondary to sepsis. Of note patient has a history of diastolic heart failure and borderline systolic heart failure. Hold nephrotoxic's. Gentle IV hydration. Infected decubitus stage IV ulcer Antibiotics as above. Wound care consult. Morbid Obesity: BMI: 38.7 kg/m?. Complicates care. Lifestyle modification recommended. Nosiy breathing: Likely upper airway. Robinul ordered. DVT prophylaxis: Subcu Lovenox ordered. Sepsis Attestation Sepsis Alert: Yes Date exam was performed: 12/10/22 Time exam was performed: 05:00 Possible Source of Sepsis: Skin/soft tissue Sepsis Organ Dysfunction Criteria Present: Creatinine > 2.0 mg/dL and Lactic Acid > 2 mmol/L Fluid Resuscitation Fluid Resuscitation ordered: Lesser volume fluid bolus ordered Amount of fluid ordered: 2,000 Reason for lesser fluid bolus:: Concern for fluid overload and Heart failure Charges/Coding Visit Charges Inpatient E&M: 83822 Init Hosp L3
--- NOTE | 2022-12-10 05:34 | ED.RN ---
ROBINUL GIVEN FOR EXCESSIVE SECRETIONS
[2022-12-10 05:36] LABS: Reflex Lactate? Y
--- NOTE | 2022-12-10 06:50 | CT_ITS ---
STUDY: CT CHEST WITHOUT CONTRAST REASON FOR EXAM: Male, 72 years old. Patchy retrocardiac opacity. Fever. RADIATION DOSAGE (If Supplied By Facility): CTDIvol = ( 28.71 ) mGy, DLP = ( 1104.39 ) mGycm TECHNIQUE: Transaxial imaging was performed without the administration of intravenous contrast material. Multiplanar coronal and sagittal images were reformatted. Individualized dose optimization techniques were used for this CT. COMPARISON: Comparison is made with prior CT scan of the chest dated October 04, 2022 and chest radiograph done earlier in the day. FINDINGS: CHEST There is a 1.9 cm x 1.9 cm well-defined hypodensity in the posterior aspect of the left lobe of the thyroid gland inferiorly. There is evidence of a infiltration in the posterior segment of the left lower lobe. Mild increased markings at the right lung base. Sternal cerclage wires and vascular clips are present from a prior sternotomy and coronary artery bypass graft procedure (CABG). There are calcifications of the coronary arteries. There are multiple small lymph nodes within the mediastinum, which are normal in size and morphology most compatible with reactive lymph hyperplasia. Normal hilar regions. Normal unenhanced pulmonary arteries. There is atherosclerotic calcification of the aortic arch with tortuosity and elongation of the aortic arch and descending thoracic aorta. There are degenerative changes of the thoracic spine. There is a 2.3 cm hypodensity in the left adrenal gland. This may represent an adenoma. CT/Chest without Contrast IMPRESSION: Left lower lobe infiltrate. Mild increased markings at the right lung base. Findings suggestive of a adenoma of the left adrenal gland. Electronically Signed: Bakari Briggs MD at 14:51 EDT ,
[2022-12-10] MEDS: Clindamycin 600 MG/50 ML BAG 100 MG IV (07:02)
[2022-12-10] MEDS: 0.9% Saline Lock 10 ML Syringe IV (07:03)
[2022-12-10 07:35] LABS: Lactic Acid 1.6 mmol/L (0.4-1.9)
[2022-12-10 08:13] LABS: Mucous, Urine 0 SEEN /hpf (<or=2+)
--- NOTE | 2022-12-10 08:26 | PN.HOSP_ITS ---
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 He also developed hypotensive
--- NOTE | 2022-12-10 08:26 | PCM.PN.HOSP ---
Reason for Visit Reason for Visit: Fever Subjective Subjective Sam is a 72-year-old white male who presented to the emergency department at [facility] on the [place] of 12/10/2022 with the chief complaint of fever and mental status change. He also developed hypotensive episodes at the nursing facility at which he resides currently. 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 He presented to the emergency department on December 09 at noon secondary to a syncopal event he suffered at the facility at which she resides and there was question of a UTI. He has a chronic indwelling suprapubic catheter as well as cellulitis from his sacral decubitus ulcer. He was started on antibiotics and then [facility] the [facility]. He subsequently then developed a fever, mental status change, and hypotension and was brought back to the emergency department for reevaluation. Upon presentation he had a temperature of 100.6, was tachycardic with a heart rate of 113, initial blood pressure was 98/50 and initially responded to IV fluids however developed subsequent hypotension after admission with a blood pressure of 70/31 and was started on pressors., respiratory rate was 42 and oxygen saturation was 92% on 6 L nasal cannula. Fluid resuscitation was deferred due to the patient having diffuse coarse crackles throughout his lungs. This morning his white count was up to 17.3 from 16.1 yesterday, he had a persistent left shift with an 87.1% neutrophilia. A VBG was performed patient was not found to be acidotic. His chemistry showed normal electrolytes however he had a rising serum BUN and creatinine currently at 48 and 2.62. Baseline serum creatinine runs anywhere from 1.45-1.6. His blood sugar was markedly elevated at 263 and his serum lactate was 2.9. His BNP was elevated at 423.4 and a procalcitonin was obtained and found to be 27.12. He was admitted to the ICU for ongoing care. Objective Data Objective Data Vital Signs: Vital Signs Temp Pulse Resp BP Pulse Ox O2 Del Method O2 Flow Rate 99.5 F H 89 37 H 88/34 L 98 Bi-pap 6 12/10/22 08:00 12/10/22 08:00 12/10/22 08:00 12/10/22 08:15 12/10/22 08:00 12/10/22 08:00 12/10/22 07:00 FiO2 40 12/10/22 08:00 Oxygen Flow Rate (L/min) 6 Oxygen Delivery Method Bi-pap Weight: 138.7 kg Body Mass Index (BMI) 39.2 Intake & Output: Intake and Output for Last 24 Hours 12/08/22 12/09/22 12/10/22 23:59 23:59 23:59 Intake Total 2863.46 / 2863.46 Output Total 60 / 60 Balance 2803.46 / 2803.46 Lab / Micro Data 12/10/22 00:47 12/10/22 00:47 Labs: Laboratory Results - last 24 hr 12/10/22 00:47: WBC 17.3 H, RBC 4.00 L, Hgb 11.5 L, Hct 37.2 L, MCV 93.0, MCH 28.8, MCHC 30.9 L, RDW Std Deviation 50.9 H, RDW Coeff of Sherin 14.9 H, Plt Count 193, MPV 12.0, Immature Gran % (Auto) 0.600, Neut % (Auto) 87.1 H, Lymph % (Auto) 3.6 L, [place] % (Auto) 8.3, Eos % (Auto) 0.1, Baso % (Auto) 0.3, Absolute Neuts (auto) 15.1 H, Absolute Lymphs (auto) 0.63 L, Nucleated RBC % 0, Differential Comment SCANNED, Sodium 137, Potassium 5.1, Chloride 105, Carbon Dioxide 23.0, Anion Gap 9, BUN 48 H, Creatinine 2.62 H, Estim Creat Clear Calc 30.46, Est GFR (MDRD) Af Amer 31 L, Est GFR (MDRD) Non-Af 26 L, BUN/Creatinine Ratio 18.3, Glucose 263 H, Calcium 9.5, B-Natriuretic Peptide 423.4 H, Procalcitonin 27.12 H, Acetone Level NEGATIVE 12/10/22 00:50: Lactic Acid 2.9 H* 12/10/22 07:05: Lactic Acid 1.6 Micro: Microbiology 12/10/22 01:23 Nasal Secretion SARS-CoV-2 & FLU Antigen (Rapid) - Final ABG Data ABG results: ABG 12/10/22 01:27 Specimen Type ALEXY VBG pH 7.45 H VBG pO2 47 H VBG HCO3 24 VBG Total CO2 25 VBG O2 Sat (Calc) 85 H VBG Base Excess -1 POC Mix VBG pCO2 Pt Tmp 33.7 L O2 Delivery Device Cannula Liter Flow 6.0 Radiography Diagnostic Testing: Radiology Impression Chest X-Ray 12/10/22 01:08 IMPRESSION: 1. Question of patchy left retrocardiac opacity. Consider CT for further evaluation. 2. Status post coronary artery bypass graft. Electronically Signed: Zeferino Yi MD at 2:08 EDT , Pelvis CT 12/10/22 01:32 IMPRESSION: 1. Coccyx is absent. There is some sclerosis of the fifth sacral element. Osteomyelitis not excluded. 2. Moderate sacral decubitus ulcer. 3. Postoperative changes in the lumbosacral spine posterior fixation L4-S1 and laminectomies at L4 and L5. Electronically Signed: Zeferino Yi MD at 2:12 EDT , Physical Exam Const no apparent distress; Negative for average body habitus or healthy appearing Constitutional Narrative: Sleepy with intermittent alertness, morbidly obese, white male, lying in bed, at bedside, patient appears toxic but comfortable at this time, currently on continuous BiPAP, chronically ill-appearing HEENT head/scalp atraumatic HEENT Narrative: BiPAP in place covering mouth mucous membranes appear dry likely related to high flow Head and Scalp: normocephalic Resp no retractions and no use of accessory muscles Resp Narrative: Scattered rhonchi and few scattered wheezes, currently on BiPAP Auscultation: rhonchi and wheezes; Negative for rales Cardio regular rate, regular rhythm, S1 normal heart sound, S2 normal heart sound, no murmurs, no rub, no gallops and no clicks GI normal to inspection, nondistended, normoactive bowel sounds, soft to palpation and non-tender GI Narrative: Large protuberant abdomen Extremity Extremity Narrative: Chronic bilateral lower extremity edema with chronic bilateral lower extremity venous stasis skin changes, no cyanosis or clubbing Skin no jaundice, no petechiae and no mottling Skin Narrative: Sacral decubitus ulcer, bilateral lower extremity venous stasis changes Neuro Neuro Narrative: Difficult to do due to somnolence Psych Psych Narrative: Unable to assess Assessment & Plan Assessment/Plan (1) Septic shock: (2) Acute kidney injury superimposed on CKD: (3) Lactic acidosis: (4) Abnormal chest x-ray: (5) Leukocytosis: (6) Acute respiratory failure with hypoxia: PLAN: Plan Septic shock -Source is currently unknown however suspect UTI versus sacral pressure ulcer versus pneumonia or combination of the above -Cultures are pending -Check strep pneumo and Legionella antigens with abnormality noted on chest x-ray and hypoxia -Aggressive fluid resuscitation was held due to worsening respiratory status and crackles on exam -Pressors initiated with Levophed -Has been on steroids since early November so therefore stress dose steroids were initiated at 100 Solu-Cortef 3 times daily -Continue broad-spectrum antibiotics but transition to vancomycin and cefepime along with azithromycin for atypical coverage until we can rule out atypical pulmonary infection -If Legionella is unremarkable we will be able to discontinue azithromycin -Pulmonary/critical care consultation -Await culture results may need ID -Once patient is more lucid family would like to have a conversation with hospice prior to discharge -He does not want any central lines, invasive procedures, intubation or CPR performed will place order to reflect this Acute hypoxic respiratory failure -Patient is not oxygen dependent at baseline -Currently requiring 6 L to maintain oxygen saturations -This x-ray with retrocardiac density and CT recommended -We will cover for pneumonia as well -Sputum culture if possible -As needed albuterol -Wean O2 as able Abnormal chest x-ray -Check CT of the chest for retrocardiac density noted on chest x-ray Lactic acidosis -Trending down -Blood pressure support Leukocytosis -Secondary to the above -We will trend EMANUEL on CKD stage IIIb -Baseline serum creatinine is 1.45-1.6 -Serum creatinine on presentation was 2.62 -Keep MAP greater than 65 -Avoid nephrotoxins -Consider gentle IV hydration depending on ongoing respiratory status History of stroke -Stroke occurred in 2019 -Had ischemic event and then fell down steps and had multiple head bleeds -Remains partially paralyzed and largely bedridden -Has an ostomy and a chronic suprapubic catheter -Continue aspirin and Plavix CAD/HTN/HPL/history of ischemic cardiomyopathy -CABG 2001 -PCI 2020 -Recent echocardiogram from 07/27/2022 shows an EF of 45%, mild global hypokinesis of the LV and stage I diastolic dysfunction with mild biatrial enlargement -Hold carvedilol, Lasix, Aldactone -Continue statin, aspirin, Plavix DM-2 -Continue sliding scale -Continue lispro every 6 hours -May need to add basal insulin -Anticipate sugars to be elevated due to hydrocortisone -Accu-Cheks every 6 -Start cardiac carb controlled diet once patient able to take p.o. GERD -Continue PPI BPH -Patient with suprapubic catheter -No reason for Flomax will discontinue Depression/anxiety -Continue home trazodone-continue home duloxetine -Hold fluoxetine Diabetic neuropathy -Continue gabapentin at current dose Parkinson's disease -Continue Mirapex DVT prophylaxis -3 times daily heparin CODE STATUS -DNR CCA no intubation no CPR
[2022-12-10 08:28] LABS: Color, Urine Yellow (Yellow); Glucose, Dipstick Normal (Normal); Ketone-Dipstick 5 mg/dl (Negative); Leukocyte Esterase-Dipstick 500 /ul (Negative); Nitrite-Dipstick Negative (Negative); Occult Blood-Urine 150 /ul (Negative); Protein-Dipstick 100 mg/dl (Negative); Specific Gravity, Urine 1.015 (1.002-1.030); Urine Bilirubin Dipstick 1 mg/dL (Negative); Urine Clarity Sl. Cloudy (Clear); Urine Urobilinogen 4 mg/dl (Normal); Urine pH 6.5 (5.0 - 8.0)
[2022-12-10 08:37] LABS: Bacteria 1+ /hpf (None Seen); Red Blood Cells-Urine 10-25 SEEN /hpf (0-5); Squamous Epithelial Cells - UA 0-5 SEEN /hpf (0-5); White Blood Cells 25-50 SEEN /hpf (0-5)
[2022-12-10] MEDS: Menthol/Lanolin/Calamine/Znox 113 GM Tube 1 APPLIC TOPICAL ×2 (10:16→20:14)
--- NOTE | 2022-12-10 10:20 | PCM.PN.INT ---
Objective Data Objective Data Vital Signs: Vital Signs Temp Pulse Resp BP Pulse Ox O2 Del Method O2 Flow Rate 99.5 F H 89 37 H 88/34 L 98 Bi-pap 6 12/10/22 08:00 12/10/22 08:00 12/10/22 08:00 12/10/22 08:15 12/10/22 08:00 12/10/22 08:00 12/10/22 07:00 FiO2 40 12/10/22 08:00 Oxygen Flow Rate (L/min) 6 Oxygen Delivery Method Bi-pap Weight: 305 lb 12.498 oz Body Mass Index (BMI) 39.2 Intake & Output: Intake and Output for Last 24 Hours 12/08/22 12/09/22 12/10/22 23:59 23:59 23:59 Intake Total 2863.46 / 2863.46 Output Total 60 / 60 Balance 2803.46 / 2803.46 Lab / Micro Data 12/10/22 00:47 12/10/22 00:47 Labs: Laboratory Results - last 24 hr 12/10/22 00:47: WBC 17.3 H, RBC 4.00 L, Hgb 11.5 L, Hct 37.2 L, MCV 93.0, MCH 28.8, MCHC 30.9 L, RDW Std Deviation 50.9 H, RDW Coeff of Sherin 14.9 H, Plt Count 193, MPV 12.0, Immature Gran % (Auto) 0.600, Neut % (Auto) 87.1 H, Lymph % (Auto) 3.6 L, [place] % (Auto) 8.3, Eos % (Auto) 0.1, Baso % (Auto) 0.3, Absolute Neuts (auto) 15.1 H, Absolute Lymphs (auto) 0.63 L, Nucleated RBC % 0, Differential Comment SCANNED, Sodium 137, Potassium 5.1, Chloride 105, Carbon Dioxide 23.0, Anion Gap 9, BUN 48 H, Creatinine 2.62 H, Estim Creat Clear Calc 30.46, Est GFR (MDRD) Af Amer 31 L, Est GFR (MDRD) Non-Af 26 L, BUN/Creatinine Ratio 18.3, Glucose 263 H, Calcium 9.5, B-Natriuretic Peptide 423.4 H, Procalcitonin 27.12 H, Acetone Level NEGATIVE 12/10/22 00:50: Lactic Acid 2.9 H* 12/10/22 07:05: Lactic Acid 1.6 12/10/22 08:00: Urine Color Yellow, Urine Clarity Sl. Cloudy, Urine pH 6.5, Ur Specific [place] 1.015, Urine Protein 100 H, Urine Glucose (UA) Normal, Urine Ketones 5 H, Urine Occult Blood 150 H, Urine Nitrite Negative, Urine Bilirubin 1 H, Urine Urobilinogen 4 H, Ur Leukocyte Esterase 500 H, Urine RBC 10-25 SEEN, Urine WBC 25-50 SEEN, Ur Squamous Epith Cells 0-5 SEEN, Urine Bacteria 1+, Urine Mucus 0 SEEN Micro: Microbiology 12/10/22 01:23 Nasal Secretion SARS-CoV-2 & FLU Antigen (Rapid) - Final ABG Data ABG results: ABG 12/10/22 01:27 Specimen Type ALEXY VBG pH 7.45 H VBG pO2 47 H VBG HCO3 24 VBG Total CO2 25 VBG O2 Sat (Calc) 85 H VBG Base Excess -1 POC Mix VBG pCO2 Pt Tmp 33.7 L O2 Delivery Device Cannula Liter Flow 6.0 Radiography Diagnostic Testing: Radiology Impression Chest X-Ray 12/10/22 01:08 IMPRESSION: 1. Question of patchy left retrocardiac opacity. Consider CT for further evaluation. 2. Status post coronary artery bypass graft. Electronically Signed: Zeferino Yi MD at 2:08 EDT , Pelvis CT 12/10/22 01:32 IMPRESSION: 1. Coccyx is absent. There is some sclerosis of the fifth sacral element. Osteomyelitis not excluded. 2. Moderate sacral decubitus ulcer. 3. Postoperative changes in the lumbosacral spine posterior fixation L4-S1 and laminectomies at L4 and L5. Electronically Signed: Zeferino Yi MD at 2:12 EDT ,
--- NOTE | 2022-12-10 10:21 | CON.PCM.CC_ITS ---
Assessment & Plan Assessment/Plan (1) Acute respiratory failure with hypoxia: (2) Abnormal chest x-ray: (3) Lactic acidosis: (4) Septic shock: (5) Acute kidney injury superimposed on CKD: (6) Insulin dependent diabetes mellitus: (7) Decubitus ulcer of sacral region: QUALIFIERS: Pressure injury stage: stage 4 Qualified Code(s): L89.154 - Pressure ulcer of sacral region, stage 4 (8) Cellulitis: (9) Obstructive sleep apnea: (10) COPD (chronic obstructive pulmonary disease): PLAN: Plan See orders. Critical care time spent with patient at bedside, review of documentation, lab results, radiology and other test results, discussion with colleagues and ancillary staff on interdisciplinary rounds, clinical management of patient, and updating family, was 60 minutes. [place] [address]. HPI Consult Data Date of Consult: 12/10/22 HPI Narrative Reason for Consultation: Acute/chronic respiratory failure, septic shock, infected sacral decub HPI Narrative: FABY GARCIA, is a 72 M who presents from his usp unit with hypotension, respiratory failure, hypoxia, requiring pressors and O2. He is been noncompliant with treatment for quite some time, has had frequent readmissions to [facility] for episodes of sepsis and respiratory failure. He has been on palliative care, and patient and his family not wanting intubation, central lines, CPR, defibrillation/cardioversion, dialysis, or other aggressive care, but when he deteriorated they did want him to be given routine medical care including antibiotics and BiPAP. He has a chronic sacral decubitus which he cannot adequately manage because of his obesity and chronic debility. This is the most likely source of his sepsis, he also has a chronic suprapubic catheter. He was obtunded on arrival, placed on Levophed up to 15 mics per minute, and BiPAP 16/10, respiratory rate 12, spontaneous respiratory rate was initially 42 and on BiPAP improved to 28. His blood pressure stabilized from the 50s systolic to normal, Levophed was tapered, and his mental status returned within several hours of arriving in ICU. He is currently on vancomycin renal dosed, azithromycin, amantadine, clindamycin (discontinued), ciprofloxacin (discontinued) and cefepime 2 g IV every 12 hours. [facility] Medical History (Updated 12/10/22 @ 16:[address] Randy Clayton MD) Acute on chronic systolic (congestive) heart failure Acute pulmonary edema (09/14/20) Acute respiratory failure with hypoxia (09/14/20) Acute respiratory failure with hypoxia and hypercapnia Alcohol abuse Allergic rhinitis Anemia Anxiety Atherosclerosis Atherosclerosis of coronary artery bypass graft without angina pectoris Benign prostatic hyperplasia Chronic combined systolic and diastolic CHF (congestive heart failure) COPD (chronic obstructive pulmonary disease) COPD with acute exacerbation CVA (cerebral vascular accident) Depression Diabetes Dysphagia Essential (primary) hypertension GERD (gastroesophageal reflux disease) Heart failure History of non-ST elevation myocardial infarction (NSTEMI) (02/21/19) HTN (hypertension) Hyperlipidemia Intraparenchymal hemorrhage of brain Intraventricular hemorrhage Ischemic cardiomyopathy Morbid obesity Myocardial infarct Neuromuscular dysfunction of bladder Nicotine dependence Obesity Obstructive sleep apnea Osteomyelitis of sacrum Recurrent UTI (urinary tract infection) Reflux esophagitis Restless leg syndrome Right hemiplegia RLS (restless legs syndrome) Sleep apnea Subarachnoid hemorrhage Subdural hematoma Tobacco abuse Traumatic brain injury Type 2 diabetes mellitus Home Medications amantadine HCl 100 mg capsule 100 mg PO DAILY PARKINSON 04/17/18 [History Last Taken 07/19/21] pantoprazole 40 mg tablet,delayed release 40 mg PO DAILY STOMACH 04/17/18 [History Last Taken 07/19/21] pramipexole 0.25 mg tablet 0.25 mg PO QHS PARKINSONS 04/17/18 [History Last Taken 07/18/21] pravastatin 80 mg tablet 80 mg PO QHS CHOLESTEROL 04/17/18 [History Last Taken 07/18/21] nitroglycerin 0.4 mg sublingual tablet 0.4 mg sublingual PRN PRN CHEST PAIN 02/20/19 [History Last Taken Unknown] aspirin 81 mg chewable tablet 81 mg PO DAILY@0800 heart health 02/24/19 [History Last Taken 07/19/21] melatonin 3 mg disintegrating tablet 3 mg PO QHS sleep 09/14/20 [History Last Taken 07/18/21] fluticasone propionate 110 mcg/actuation HFA aerosol inhaler 1 puff inhalation BID allergies 02/17/21 [History Last Taken 07/19/21] insulin aspart U-100 100 unit/mL (3 mL) subcutaneous pen (Novolog FlexPen U-100 Insulin aspart) 15 unit subcut TIDCM blood sugar 02/17/21 [History Last Taken 07/19/21] tamsulosin 0.4 mg capsule 0.4 mg PO QHS prostate 02/17/21 [History Last Taken 07/18/21] carvedilol 25 mg tablet 25 mg PO BID #0 tabs 02/20/21 [Rx Last Taken 07/19/21] potassium chloride 20 mEq tablet,extended release(part/cryst) 40 meq (2 x 20 mEq) PO DAILY supplement 90 days #90 tabs 02/20/21 [Rx Last Taken 07/19/21] spironolactone 25 mg tablet 25 mg PO DAILY #30 tabs 04/29/21 [Rx Last Taken 07/19/21] aluminum-magnesium hydroxide 225 mg-200 mg/5 mL oral suspension 30 ml PO Q4H PRN GI distress 10/11/21 [History Last Taken Unknown] bisacodyl 10 mg rectal suppository 10 mg WI DAILY PRN constipaiton 10/11/21 [History Last Taken Unknown] duloxetine 60 mg capsule,delayed release 60 mg PO BID depression 10/11/21 [History Last Taken Unknown] fluoxetine 40 mg capsule 60 mg PO QPM depression 10/11/21 [History Last Taken Unknown] guaifenesin 200 mg/5 mL oral liquid 400 mg PO Q4H PRN Cough 10/11/21 [History Last Taken Unknown] magnesium hydroxide 400 mg/5 mL oral suspension (Milk of Magnesia) 30 ml PO DAILY PRN consipation 10/11/21 [History Last Taken Unknown] nystatin 100,000 unit/gram topical powder 1 applic topical DAILY PRN excoriation 10/11/21 [History Last Taken Unknown] sacubitril 49 mg-valsartan 51 mg tablet (Entresto) 1 tab PO BID #60 tabs 10/11/21 [Rx Last Taken Unknown] sodium phosphates 19 gram-7 gram/118 mL enema (Fleet Enema) 118 ml WI ONCE PRN Constipation 10/11/21 [History Last Taken Unknown] cetirizine 10 mg tablet (Zyrtec) 10 mg PO DAILY sinus 07/27/22 [History Last Taken Unknown] gabapentin 300 mg capsule 300 mg PO QHS neuropathy 07/27/22 [History Last Taken Unknown] furosemide 40 mg tablet 40 mg PO BID CHF 10/05/22 [History Last Taken Unknown] albuterol sulfate 2.5 mg/3 mL (0.083 %) solution for nebulization 2.5 mg (3 mL) inhalation Q2H PRN PRN SOB/Wheezing #0 mL 10/08/22 [Rx Last Taken Unknown] insulin lispro 100 unit/mL subcutaneous pen (Humalog KwikPen (U-100) Insulin) See Protocol subcut ACHS #0 mL 10/08/22 [Rx Last Taken Unknown] ipratropium 0.5 mg-albuterol 3 mg (2.5 mg base)/3 mL nebulization soln 3 ml inhalation Q4HWA.RT #0 mL 10/08/22 [Rx Last Taken Unknown] menthol 0.44 %-zinc oxide 20.6 % topical ointment (Calmoseptine) 1 applic topical BID #0 grams 10/08/22 [Rx Last Taken Unknown] oxycodone 5 mg tablet 5 mg PO TID 2 days #6 tabs 10/08/22 [Rx Last Taken Unknown] prednisone 20 mg tablet 40 mg (2 x 20 mg) PO BREAKFAST #0 tabs 10/08/22 [Rx Last Taken Unknown] sennosides 8.6 mg-docusate sodium 50 mg tablet 1 tab-cap PO BID constipation 10/31/22 [History Last Taken Unknown] trazodone 150 mg tablet 150 mg PO QHS 10/31/22 [History Last Taken Unknown] clindamycin HCl 300 mg capsule (Cleocin HCl) 300 mg PO Q6H #40 CAPSULES 12/09/22 [Rx Last Taken Unknown] acetaminophen 325 mg tablet 650 mg PO Q4H PRN PAIN/FEVER 12/10/22 [History Last Taken Unknown] acetaminophen 650 mg rectal suppository 650 mg WI Q4H PRN fever or pain 12/10/22 [History Last Taken Unknown] clopidogrel 75 mg tablet 75 mg PO DAILY 12/10/22 [History Last Taken Unknown] dextrose 40 % oral gel (Glucose Gel) 15 g PO Q15M PRN hypoglycemia 12/10/22 [History Last Taken Unknown] glucagon 1 mg solution for injection (Glucagon Emergency Kit) 1 mg IM Q20M PRN hypoglycemia 12/10/22 [History Last Taken Unknown] metformin 500 mg tablet 500 mg PO BID 12/10/22 [History Last Taken Unknown] Allergy/AdvReac Type Severity Reaction Status Date / Time atorvastatin Allergy PT UNSURE Verified 12/10/22 00:51 OF REACTION cilostazol Allergy Hives Verified 12/10/22 00:51 colestipol Allergy Hives Verified 12/10/22 00:51 diltiazem Allergy Hives Verified 12/10/22 00:51 gemfibrozil Allergy Hives Verified 12/10/22 00:51 naproxen [From Naprosyn] Allergy Hives Verified 12/10/22 00:51 niacin Allergy PT UNSURE Verified 12/10/22 00:51 OF REACTION Nitrate Analogues Allergy Hives Verified 12/10/22 00:51 Penicillins Allergy Hives Verified 12/10/22 00:51 pravastatin Allergy NEEDS Verified 12/10/22 00:51 FOLLOW-UP procainamide Allergy Hives Verified 12/10/22 00:51 procaine Allergy NEEDS Verified 12/10/22 00:51 FOLLOW-UP rosuvastatin Allergy Hives Verified 12/10/22 00:51 simvastatin Allergy Hives Verified 12/10/22 00:51 isosorbide AdvReac Severe Unknown Verified 12/10/22 00:51 Family History Brother Heart disease Father Heart disease Alzheimer disease Mother No history of heart disease Surgical History Chronic suprapubic catheter H/O coronary angioplasty H/O coronary artery bypass surgery (2001) History of coronary artery stent placement (09/18/20) History of left heart catheterization (04/29/21) PEG (percutaneous endoscopic gastrostomy) adjustment/replacement/removal Status post ileostomy Status post osteotomy (01/2018) Social History housing: senior care Smoking Status: Current some day smoker tobacco type: cigarettes second hand exposure: Yes alcohol intake: former substance use type: does not use caffeine: Yes Type: coffee Number of servings: 3 what type of physical activity do you participate in: none Physical Exam Narrative Morbidly obese man who is obtunded on nasal O2 on arrival in ICU. Labored respirations at 42/min. HEENT has a 6 inch fisher, disheveled, mucous membranes moist. Chest has bilateral coarse breath sounds, no wheezes or crackles. Heart regular S1-S2 no murmurs Abdomen is obese, nontender Extremities have 2+ pitting edema, chronic venous stasis changes. Nursing reports a sacral decubitus however he could not be turned because of his massive weight in ICU for exam. Please see ER notes. Neuro is obtunded, he did not cooperate with my initial exam exam. He was later observed to move all 4 extremities and try to talk after he was on BiPAP and pressors for several hours. Does not reliably follow commands. Skin is plethoric, warm and dry. Lab / Micro Data 12/10/22 00:47 12/10/22 00:47 Labs: Laboratory Results - last 24 hr 12/10/22 00:47: WBC 17.3 H, RBC 4.00 L, Hgb 11.5 L, Hct 37.2 L, MCV 93.0, MCH 28.8, MCHC 30.9 L, RDW Std Deviation 50.9 H, RDW Coeff of Sherin 14.9 H, Plt Count 193, MPV 12.0, Immature Gran % (Auto) 0.600, Neut % (Auto) 87.1 H, Lymph % (Auto) 3.6 L, [place] % (Auto) 8.3, Eos % (Auto) 0.1, Baso % (Auto) 0.3, Absolute Neuts (auto) 15.1 H, Absolute Lymphs (auto) 0.63 L, Nucleated RBC % 0, Differential Comment SCANNED, Sodium 137, Potassium 5.1, Chloride 105, Carbon Dioxide 23.0, Anion Gap 9, BUN 48 H, Creatinine 2.62 H, Estim Creat Clear Calc 30.46, Est GFR (MDRD) Af Amer 31 L, Est GFR (MDRD) Non-Af 26 L, BUN/Creatinine Ratio 18.3, Glucose 263 H, Calcium 9.5, B-Natriuretic Peptide 423.4 H, Procalcitonin 27.12 H, Acetone Level NEGATIVE 12/10/22 00:50: Lactic Acid 2.9 H* 12/10/22 07:05: Lactic Acid 1.6 12/10/22 08:00: Urine Color Yellow, Urine Clarity Sl. Cloudy, Urine pH 6.5, Ur Specific [place] 1.015, Urine Protein 100 H, Urine Glucose (UA) Normal, Urine Ketones 5 H, Urine Occult Blood 150 H, Urine Nitrite Negative, Urine Bilirubin 1 H, Urine Urobilinogen 4 H, Ur Leukocyte Esterase 500 H, Urine RBC 10-25 SEEN, Urine WBC 25-50 SEEN, Ur Squamous Epith Cells 0-5 SEEN, Urine Bacteria 1+, Urine Mucus 0 SEEN Micro: Microbiology 12/10/22 01:23 Nasal Secretion SARS-CoV-2 & FLU Antigen (Rapid) - Final ABG Data ABG results: ABG 12/10/22 01:27 Specimen Type ALEXY VBG pH 7.45 H VBG pO2 47 H VBG HCO3 24 VBG Total CO2 25 VBG O2 Sat (Calc) 85 H VBG Base Excess -1 POC Mix VBG pCO2 Pt Tmp 33.7 L O2 Delivery Device Cannula Liter Flow 6.0 Radiology Impression Chest X-Ray 12/10/22 01:08 IMPRESSION: 1. Question of patchy left retrocardiac opacity. Consider CT for further evaluation. 2. Status post coronary artery bypass graft. Electronically Signed: Zeferino Yi MD at 2:08 EDT , Pelvis CT 12/10/22 01:32 IMPRESSION: 1. Coccyx is absent. There is some sclerosis of the fifth sacral element. Osteomyelitis not excluded. 2. Moderate sacral decubitus ulcer. 3. Postoperative changes in the lumbosacral spine posterior fixation L4-S1 and laminectomies at L4 and L5. Electronically Signed: Zeferino Yi MD at 2:12 EDT , Charges/Coding Procedures Hospitalists Procedures: 74384 Critial Care 1st Hr
[2022-12-10] MEDS: Ipratropium/Albuterol Sulfate 3 ML AMPUL.NEB INHALATION ×3 (11:23→18:56)
--- NOTE | 2022-12-10 11:24 | PCM.RX.CS ---
Consult Antibiotic Management Pharmacy has been consulted to manage selected antiobiotic: Vancomycin Type of Intervention Type of Consult: New start Suspected Infection Suspected Infection: Skin/Soft tissue Prior Doses of Antibiotics Prior Doses of Antibiotics Received/Current Regimen: Received 2000mg iv x 1 on 12.10.22 as initial dose. Labs Labs: Sodium 137 mmol/L (136-145) 12/10/22 00:47 Potassium 5.1 mmol/L (3.5-5.1) 12/10/22 00:47 Chloride 105 mmol/L (98-107) 12/10/22 00:47 Carbon Dioxide 23.0 mmol/L (21.0-32.0) 12/10/22 00:47 Anion Gap 9 (5-15) 12/10/22 00:47 BUN 48 mg/dL (7-18) H 12/10/22 00:47 Creatinine 2.62 mg/dL (0.70-1.30) H 12/10/22 00:47 Est GFR (MDRD) Af Amer 31 mL/min (>60) L 12/10/22 00:47 Est GFR (MDRD) Non-Af 26 mL/min (>60) L 12/10/22 00:47 BUN/Creatinine Ratio 18.3 RATIO (10-20) 12/10/22 00:47 Glucose 263 mg/dL (74-106) H 12/10/22 00:47 Microbiology Microbiology: Microbiology 12/10/22 08:00 Urine Catheter - Catheter Legionella Antigen - Final 12/10/22 08:00 Urine Catheter - Catheter Streptococcus pneumoniae Antigen (M - Final 12/10/22 01:23 Nasal Secretion SARS-CoV-2 & FLU Antigen (Rapid) - Final Dosing Weight Weight used for dosin.7 kg Estimated Creatinine Clearance Estimated Creatinine Clearance: 38 ml/min Goal Trough Goal Trough: 15-20 mcg/mL Pharmacy Plan for Drug Dosing Pharmacy Plan for Drug Dosing: Using adjusted body weight, CrCl calculated to be ~38 ml/min. Will start a dosing schedule of 1500mg iv q24h per policy. Trough ordered for before 3rd total dose on 12.12.22. Pharmacy Service will continue to monitor and adjust dosing as required. Follow-Up Labs Follow-Up Labs: Trough: Vancomycin (12.12.22 @0330 before 0400 dose) Date/Time Labs Ordered Labs to be done on [date and time ordered]: 12.12.22 033
[2022-12-10 12:36] LABS: Bedside Glucose 292 mg/dL (74-106)
--- NOTE | 2022-12-10 12:59 | WOUNDNOTE ---
wound photo: sacrum
[2022-12-10] MEDS: Insulin Lispro 100 UNIT/ML INSULN.PEN SC ×2 (13:06→17:31)
[2022-12-10] MEDS: Insulin Lispro 100 UNIT/ML INSULN.PEN 15 UNIT SC ×2 (13:06→17:30)
[2022-12-10] MEDS: Hydrocortisone Sod Succinate 100 MG/2 ML Vial IV ×2 (13:06→20:14)
[2022-12-10] MEDS: Heparin Injection (Vial) 5,000 UNIT/ML VIAL 5000 UNIT SC ×2 (15:23→20:13)
[2022-12-10 17:59] LABS: Bedside Glucose 235 mg/dL (74-106)
[2022-12-11] VITALS (37 sets, daily range): BP systolic 90–131; BP diastolic 47–107; PULSE 80–101; RESP 20–35; TEMP 36.1–37.4; O2SAT 91–100; BMI 38.9
[2022-12-11] MEDS: Insulin Lispro 100 UNIT/ML INSULN.PEN 15 UNIT SC ×4 (00:42→16:41)
[2022-12-11] MEDS: Insulin Lispro 100 UNIT/ML INSULN.PEN SC ×4 (00:42→21:43)
[2022-12-11 01:01] LABS: Bedside Glucose 172 mg/dL (74-106)
[2022-12-11 03:47] LABS: Absolute Lymphocyte Count 0.93 X10^3/uL (0.83-4.51); Absolute Neutrophil Count 14.6 X10^3/uL (2.0-7.7); Basophil# 0.04 X10^3/uL; Basophil% 0.2 % (0-1); Differential Indicated SCAN CRITERIA MET; Eosinophil# 0.02 X10^3/uL; Eosinophils% 0.1 % (0-5); Hematocrit 31.8 % (40-54); Hemoglobin 9.8 g/dL (13.0-16.5); Lymphocyte # 0.93 X10^3/ul (0.83-4.51); Lymphocyte % 5.5 % (19-41); Mean Corp Hgb Conc 30.8 g/dL (32-36); Mean Corpuscular Volume 94.1 fL (80-94); Mean Platelet Vol. 10.8 fl (6.2-12.0); Monocyte# 1.12 X10^3/uL; Monocyte% 6.6 % (0-10); NRBC Flagged by Analyzer 0 % (0-5); Neutrophil # 14.59 X10^3/uL (2.7-7.7); Neutrophil % 86.4 % (47-70); POSITIVE MORPHOLOGY YES; Platelet Count 190 K/mm3 (150-450); RBC Distribution Width CV 15.1 % (11.6-14.6); RBC Distribution Width SD 52.3 fl (35.1-43.9); Red Blood Count 3.38 M/mm3 (4.6-6.2); White Blood Count 16.9 K/mm3 (4.4-11.0)
[2022-12-11 04:06] LABS: ALB/GLOB Ratio 0.5 RATIO (0.9-2.4); AST(SGOT) 21 U/L (15-37); Alanine Aminotransfer ALT/SGPT 19 U/L (16-61); Albumin, Serum 2.4 g/dL (3.2-5.0); Alkaline Phosphatase 66 U/L (45-117); Anion Gap 5 (5-15); BUN 45 mg/dL (7-18); BUN/Creat Ratio 20.9 RATIO (10-20); Calcium,Total 8.9 mg/dL (8.5-10.1); Chloride 113 mmol/L (98-107); Creatinine, Serum 2.15 mg/dL (0.70-1.30); EST Glomerular Filtration Rate 32 mL/min (>60); Est Glom Filt Rate - Afr Amer 39 mL/min (>60); Estimated Creatinine Clearance 36.11 ml/min; Globulin 4.6 g/dL (2.2-4.2); Glucose 178 mg/dL (74-106); Magnesium 1.6 mg/dL (1.6-2.6); Phosphorus 3.1 mg/dL (2.5-4.9); Potassium 4.4 mmol/L (3.5-5.1); Sodium Level 141 mmol/L (136-145)
[2022-12-11 04:18] LABS: Differential Comment SCANNED
[2022-12-11] MEDS: Heparin Injection (Vial) 5,000 UNIT/ML VIAL 5000 UNIT SC ×3 (05:33→21:41)
[2022-12-11] MEDS: Hydrocortisone Sod Succinate 100 MG/2 ML Vial IV ×3 (05:33→21:41)
[2022-12-11] MEDS: 0.9% Saline Lock 10 ML Syringe IV (05:34)
[2022-12-11 05:58] LABS: Bedside Glucose 146 mg/dL (74-106)
[2022-12-11] MEDS: Ipratropium/Albuterol Sulfate 3 ML AMPUL.NEB INHALATION ×3 (07:04→19:40)
[2022-12-11] MEDS: Menthol/Lanolin/Calamine/Znox 113 GM Tube 1 APPLIC TOPICAL ×2 (08:53→21:44)
[2022-12-11] MEDS: DAKIN'S SOL HALF STRENGTH (=0.25%) 1 APPLIC TOPICAL (08:53)
[2022-12-11] MEDS: Pantoprazole Sodium 40 MG Tablet PO (09:23)
[2022-12-11] MEDS: Senna/Docusate Sodium 1 Tablet PO ×2 (09:23→21:41)
[2022-12-11] MEDS: DULoxetine Hcl 60 MG Capsule PO ×2 (09:24→21:41)
[2022-12-11] MEDS: Aspirin 81 MG TAB.CHEW PO (09:24)
[2022-12-11] MEDS: Loratadine 10 MG Tablet PO (09:24)
[2022-12-11] MEDS: Clopidogrel Bisulfate 75 MG Tablet PO (09:24)
[2022-12-11] MEDS: Amantadine 100 MG Capsule PO (09:24)
--- NOTE | 2022-12-11 11:09 | CASEMGMT ---
Social Work SW attended ICU rounds. Nursing stating that referral has been made to [facility]. SW spoke with pt and and they are agreeable to referral to [facility]. 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 Family aware of hospice company options and requesting services through [facility]. Phone call to [facility] and they have received referral. [facility] to reach out to pt and set appointment to [facility] and discuss services. DC help desk assistant to send updates to [facility]. Plan: Return to [facility], [facility] hosp[facility] referral KANDACE Smith
--- NOTE | 2022-12-11 11:09 | CASEMGMT ---
Discharge Planning Patient resides at [facility]. Updates sent via [employer]. Ila Rodriguez, Discharge Planning Asst.
[2022-12-11 12:01] LABS: Hemoglobin 9.6 g/dL (13.0-16.5)
--- NOTE | 2022-12-11 12:03 | PCM.PN.INT ---
Assessment & Plan Assessment/Plan (1) Acute respiratory failure with hypoxia: PLAN: Resolved with BiPAP management and antibiotics for presumed sepsis. - Continue BiPAP or CPAP 10 cm nightly and as needed naps. Patient will return with his previous settings in the senior living unit - Titrate O2 to keep saturation greater than 92% (2) Abnormal chest x-ray: PLAN: Atelectasis likely secondary to obesity, follow-up to clearance - Mobilize - Smoking cessation (3) Lactic acidosis: PLAN: Resolved (4) Septic shock: PLAN: Resolved, Levophed was discontinued yesterday. (5) Acute kidney injury superimposed on CKD: PLAN: Improved (6) Insulin dependent diabetes mellitus: PLAN: Managed by primary (7) Decubitus ulcer of sacral region: QUALIFIERS: Pressure injury stage: stage 4 Qualified Code(s): L89.154 - Pressure ulcer of sacral region, stage 4 PLAN: Local wound care, the culture shows gram-negative rods, final speciation and sensitivities pending. Adjust and/or de-escalate antibiotics as indicated. (8) Cellulitis: PLAN: Chronic. - For sepsis, he is on clindamycin 300 mg p.o. every 6 hours, cefepime 2 g every 12 hours, vancomycin 1500 mg daily and - furosemide 40 mg p.o. twice daily for his CHF (9) Obstructive sleep apnea: PLAN: Patient is partially compliant with treatment, a large part of his abnormal mental status was due to insufficiently treated sleep apnea, due to his noncompliance. - His mental status markedly improved within a short time of being on BiPAP in the ICU. It is clearly of benefit to him. - He was encouraged to wear all night every night and whenever he naps. . - His was present during the visit today, and stated that he usually wears nasal cushions. (10) COPD (chronic obstructive pulmonary disease): PLAN: Improved with bronchodilators DuoNeb every 4 hours while awake - He is on amantadine 100 mg p.o. daily, azithromycin 500 mg IV daily, - He is on hydrocortisone 100 mg IV every 8 hours, this can be changed to a prednisone taper over 5 days. -Loratadine 10 mg daily for allergic rhinitis PLAN: Plan See orders. Diabetes hyperlipidemia and other management per primary team. Chronic pain management per primary team; he is currently on oxycodone 5 mg p.o. 3 times daily Critical care time spent with patient at bedside, review of documentation, lab results, radiology and other test results, discussion with colleagues and ancillary staff on interdisciplinary rounds, clinical management of patient, and updating family, was 35 minutes. [place] [address]. Subjective Subjective Patient is awake alert oriented today. He was able to tell me about his service in the [employer] during the [place] conflict. He has a productive cough. He aspirates clear liquids in Semi-Jauregui's position with a cough that clears his airway. He does have residual rhonchi that he does not raise completely. He denies dyspnea fevers chills or sweats. He wore his BiPAP for 4 hours last night and took it off. He refused to wear it more, and this is apparently the same situation in his detention where he rarely wears CPAP for very long. He was advised to wear it because it would save his life (as it did this admission), help him think clearer, give him more energy. The sacral wound culture showed gram-negative rebecca. He is no longer critically ill and will transfer to the floor. [facility] [place] will sign off. Objective Data Objective Data Vital Signs: Vital Signs Temp Pulse Resp BP Pulse Ox O2 Del Method O2 Flow Rate 99.1 F 101 H 28 H 115/59 L 96 Nasal Cannula 3 12/11/22 04:00 12/11/22 11:06 12/11/22 11:06 12/11/22 08:30 12/11/22 11:09 12/11/22 11:09 12/11/22 11:09 FiO2 3 12/11/22 08:00 Oxygen Flow Rate (L/min) 3 Oxygen Delivery Method Nasal Cannula Weight: 303 lb 9.224 oz Body Mass Index (BMI) 38.9 BiPAP 16/10 rate 14 nightly and as needed naps. O2 titrated to keep 92% or more. Intake & Output: Intake and Output for Last 24 Hours 12/09/22 12/10/22 12/11/22 23:59 23:59 23:59 Intake Total 3696.57 / 3705.97 836.87 / 836.87 Output Total 1035 / 1785 1825 / 1825 Balance 2661.57 / 1920.97 -988.13 / -988.13 Lab / Micro Data 12/11/22 11:45 12/11/22 03:40 Labs: Laboratory Results - last 24 hr 12/10/22 12:16: POC Glucose 292 H 12/10/22 17:29: POC Glucose 235 H 12/11/22 00:41: POC Glucose 172 H 12/11/22 03:40: WBC 16.9 H, RBC 3.38 L, Hgb 9.8 L, Hct 31.8 L, MCV 94.1 H, MCH 29.0, MCHC 30.8 L, RDW Std Deviation 52.3 H, RDW Coeff of Sherin 15.1 H, Plt Count 190, MPV 10.8, Immature Gran % (Auto) 1.200 H, Neut % (Auto) 86.4 H, Lymph % (Auto) 5.5 L, [place] % (Auto) 6.6, Eos % (Auto) 0.1, Baso % (Auto) 0.2, Absolute Neuts (auto) 14.6 H, Absolute Lymphs (auto) 0.93, Nucleated RBC % 0, Differential Comment SCANNED, Sodium 141, Potassium 4.4, Chloride 113 H, Carbon Dioxide 23.0, Anion Gap 5, BUN 45 H, Creatinine 2.15 H, Estim Creat Clear Calc 36.11, Est GFR (MDRD) Af Amer 39 L, Est GFR (MDRD) Non-Af 32 L, BUN/Creatinine Ratio 20.9 H, Glucose 178 H, Calcium 8.9, Phosphorus 3.1, Magnesium 1.6, Total Bilirubin 0.30, AST 21, ALT 19, Alkaline Phosphatase 66, Total Protein 7.0, Albumin 2.4 L, Globulin 4.6 H, Albumin/Globulin Ratio 0.5 L 12/11/22 05:32: POC Glucose 146 H 12/11/22 11:45: Hgb 9.6 L Micro: Microbiology 12/10/22 10:15 Wound - Sacral Gram Stain - Final 12/10/22 10:15 Wound - Sacral Wound Culture - Preliminary Gram negative rebecca 12/10/22 08:00 Urine Catheter - Catheter Legionella Antigen - Final 12/10/22 08:00 Urine Catheter - Catheter Streptococcus pneumoniae Antigen (M - Final 12/10/22 01:23 Nasal Secretion SARS-CoV-2 & FLU Antigen (Rapid) - Final Radiography Diagnostic Testing: Radiology Impression Chest CT 12/10/22 06:50 IMPRESSION: Left lower lobe infiltrate. Mild increased markings at the right lung base. Findings suggestive of a adenoma of the left adrenal gland. Electronically Signed: Bakari Briggs MD at 14:51 EDT , Physical Exam Narrative Morbidly obese man who is awake and alert on 3 L nasal O2 in ICU. HEENT disheveled, mucous membranes moist. Chest has bilateral coarse breath sounds, bilateral rhonchi that do not clear completely with cough. No wheezes or crackles. Unlabored respirations Heart regular S1-S2 no murmurs Abdomen is obese, nontender Extremities have 2+ pitting edema, chronic venous stasis changes. Sacral decubitus covered for wound care. Alert and oriented x3, cooperative, able to sit up for lung exam, reasonable strength. Skin is warm and dry. Charges/Coding Visit Charges Inpatient E&M: 03026 Subs Hosp L3
--- NOTE | 2022-12-11 12:33 | PCM.PN.HOSP ---
Reason for Visit Reason for Visit: Fever Subjective Subjective Patient is doing much better today. Is alert and oriented x3. Has been off BiPAP. Oxygen saturations are stable on 3 L supplemental cannula. Patient is feeling much better. He has been off pressors since last evening and his blood pressures are stable. was at the bedside and we did discuss hospice consultation which she is agreeable to and desires. Their [id number] who assist with medical decision making is not available today so I anticipate meeting tomorrow. Objective Data Objective Data Vital Signs: Vital Signs Temp Pulse Resp BP Pulse Ox O2 Del Method O2 Flow Rate 97.8 F 100 31 H 129/68 H 91 Nasal Cannula 3 12/11/22 12:00 12/11/22 12:00 12/11/22 12:00 12/11/22 12:00 12/11/22 12:00 12/11/22 12:00 12/11/22 12:00 FiO2 3 12/11/22 08:00 Oxygen Flow Rate (L/min) 3 Oxygen Delivery Method Nasal Cannula Weight: 137.7 kg Body Mass Index (BMI) 38.9 Intake & Output: Intake and Output for Last 24 Hours 12/09/22 12/10/22 12/11/22 23:59 23:59 23:59 Intake Total 3696.57 / 3705.97 936.87 / 936.87 Output Total 1035 / 1785 1825 / 1825 Balance 2661.57 / 1920.97 -888.13 / -888.13 Lab / Micro Data 12/11/22 11:45 12/11/22 03:40 Labs: Laboratory Results - last 24 hr 12/10/22 12:16: POC Glucose 292 H 12/10/22 17:29: POC Glucose 235 H 12/11/22 00:41: POC Glucose 172 H 12/11/22 03:40: WBC 16.9 H, RBC 3.38 L, Hgb 9.8 L, Hct 31.8 L, MCV 94.1 H, MCH 29.0, MCHC 30.8 L, RDW Std Deviation 52.3 H, RDW Coeff of Sherin 15.1 H, Plt Count 190, MPV 10.8, Immature Gran % (Auto) 1.200 H, Neut % (Auto) 86.4 H, Lymph % (Auto) 5.5 L, Gooding % (Auto) 6.6, Eos % (Auto) 0.1, Baso % (Auto) 0.2, Absolute Neuts (auto) 14.6 H, Absolute Lymphs (auto) 0.93, Nucleated RBC % 0, Differential Comment SCANNED, Sodium 141, Potassium 4.4, Chloride 113 H, Carbon Dioxide 23.0, Anion Gap 5, BUN 45 H, Creatinine 2.15 H, Estim Creat Clear Calc 36.11, Est GFR (MDRD) Af Amer 39 L, Est GFR (MDRD) Non-Af 32 L, BUN/Creatinine Ratio 20.9 H, Glucose 178 H, Calcium 8.9, Phosphorus 3.1, Magnesium 1.6, Total Bilirubin 0.30, AST 21, ALT 19, Alkaline Phosphatase 66, Total Protein 7.0, Albumin 2.4 L, Globulin 4.6 H, Albumin/Globulin Ratio 0.5 L 12/11/22 05:32: POC Glucose 146 H 12/11/22 11:45: Hgb 9.6 L Micro: Microbiology 12/10/22 10:15 Wound - Sacral Gram Stain - Final 12/10/22 10:15 Wound - Sacral Wound Culture - Preliminary Gram negative rebecca 12/10/22 08:00 Urine Catheter - Catheter Legionella Antigen - Final 12/10/22 08:00 Urine Catheter - Catheter Streptococcus pneumoniae Antigen (M - Final 12/10/22 01:23 Nasal Secretion SARS-CoV-2 & FLU Antigen (Rapid) - Final Radiography Diagnostic Testing: Radiology Impression Chest CT 12/10/22 06:50 IMPRESSION: Left lower lobe infiltrate. Mild increased markings at the right lung base. Findings suggestive of a adenoma of the left adrenal gland. Electronically Signed: Bakari Briggs MD at 14:51 EDT , Physical Exam Const alert, oriented x3 and no apparent distress; Negative for average body habitus or healthy appearing Constitutional Narrative: Morbidly obese, older, white male, sitting up in bed with nasal cannula in place, watching television, at bedside, chronically ill-appearing HEENT head/scalp atraumatic and moist oral mucous membranes HEENT Narrative: Mallampati 3-4, no thrush Head and Scalp: normocephalic Resp no retractions and no use of accessory muscles Resp Narrative: Breathing is much more comfortable today, still with scattered rhonchi, no wheeze Auscultation: rhonchi; Negative for rales or wheezes Cardio regular rate, regular rhythm, S1 normal heart sound, S2 normal heart sound, no murmurs, no rub, no gallops and no clicks GI normal to inspection, nondistended, normoactive bowel sounds, soft to palpation and non-tender GI Narrative: Large protuberant abdomen, ostomy in place with good output, suprapubic catheter in place with good output Extremity Extremity Narrative: Chronic bilateral lower extremity edema with chronic bilateral lower extremity venous stasis skin changes, no cyanosis or clubbing Neuro oriented x3 Neuro Narrative: Moves bilateral upper extremities symmetrically, weakness bilateral lower extremities, assessment is difficult because he is bedbound at this time Speech: speech normal Psych Psych Narrative: Affect is slightly flat but appropriate for current situation, eye contact is good and patient communicates well Assessment & Plan Assessment/Plan (1) Septic shock: (2) Acute kidney injury superimposed on CKD: (3) Lactic acidosis: (4) Abnormal chest x-ray: (5) Leukocytosis: (6) Acute respiratory failure with hypoxia: PLAN: Plan Septic shock -Source is currently unknown however suspect UTI versus sacral pressure ulcer versus pneumonia or combination of the above -Blood cultures remain pending -Preliminary urine culture is positive for Proteus that is sensitive to cefepime -His wound culture from his sacral decubitus ulcer is showing a gram-negative rebecca with sensitivities and identification still pending -Gooding and Legionella antigens are negative we will therefore discontinue azithromycin -Pressors have been discontinued -Continue Solu-Cortef 100 3 times daily today and start weaning tomorrow after pressors have been off for 24 hours -Continue with vancomycin and cefepime for now until cultures are finalized -Pulmonary/critical care medicine following -Await culture results may need ID -Okay to consult hospice today as patient is more alert and can participate in conversation Acute hypoxic respiratory failure -Patient is not oxygen dependent at baseline -Oxygen has been weaned to 3 L nasal cannula -CT of the chest showed a left lower lobe infiltrate with increased markings at the right lung base -Speech therapy is to assess patient prior to oral intake -Sputum culture if possible--> not yet able to be produced -As needed albuterol and scheduled ipratropium -Wean O2 as able Lactic acidosis -Resolved Leukocytosis -Trending down EMANUEL on CKD stage IIIb -Baseline serum creatinine is 1.45-1.6 -Serum creatinine on presentation was 2.62 -Creatinine is trending down and currently 2.15 -Keep MAP greater than 65 -Avoid nephrotoxins History of stroke -Stroke occurred in 2019 -Had ischemic event and then fell down steps and had multiple head bleeds -Remains partially paralyzed and largely bedridden -Has an ostomy and a chronic suprapubic catheter -Continue aspirin and Plavix CAD/HTN/HPL/history of ischemic cardiomyopathy -CABG 2001 -PCI 2020 -Recent echocardiogram from 07/27/2022 shows an EF of 45%, mild global hypokinesis of the LV and stage I diastolic dysfunction with mild biatrial enlargement -Hold carvedilol, Lasix, Aldactone--> we will slowly reintroduce medications once blood pressure remained stable and starts to show signs of elevation -Continue statin, aspirin, Plavix DM-2 -Continue sliding scale -Continue lispro every 3 times daily with meals -May need to add basal insulin--> fasting sugar this morning was 178 we will continue to follow and trend now that patient is on a p.o. diet if greater than 180 we will start basal insulin -Blood sugar control is improving -Anticipate sugars to be elevated due to hydrocortisone -Accu-Cheks every 6 -Start cardiac carb controlled diet once patient able to take p.o. GERD -Continue PPI BPH -Patient with suprapubic catheter -No reason for Flomax will discontinue Depression/anxiety -Continue home trazodone-continue home duloxetine -Hold fluoxetine Diabetic neuropathy -Continue gabapentin at current dose Parkinson's disease -Continue Mirapex DVT prophylaxis -3 times daily heparin CODE STATUS -DNR CCA no intubation no CPR Charges/Coding Visit Charges Inpatient E&M: 54114 [facility] Hosp L2
[2022-12-11 13:36] LABS: Bedside Glucose 277 mg/dL (74-106)
[2022-12-11] MEDS: Juven (unflavored) Packet 1 PACKET PO (16:42)
[2022-12-11 17:07] LABS: Bedside Glucose 293 mg/dL (74-106)
[2022-12-11] MEDS: Pramipexole Di-HCl 0.25 MG Tablet PO (21:41)
[2022-12-11] MEDS: Gabapentin 100 MG Capsule 200 MG PO (21:41)
[2022-12-11] MEDS: traZODone 50 MG Tablet 150 MG PO (21:41)
[2022-12-11] MEDS: Pravastatin 80 MG Tablet PO (21:41)
[2022-12-11] MEDS: MELATONIN 3 MG TABLET PO (21:41)
[2022-12-11 22:12] LABS: Bedside Glucose 181 mg/dL (74-106)
[2022-12-12] VITALS (25 sets, daily range): BP systolic 95–138; BP diastolic 47–73; PULSE 71–89; RESP 12–30; TEMP 36.4–36.6; O2SAT 95–298; BMI 40.5
[2022-12-12 05:00] LABS: Absolute Lymphocyte Count 0.97 X10^3/uL (0.83-4.51); Absolute Neutrophil Count 11.5 X10^3/uL (2.0-7.7); Basophil# 0.03 X10^3/uL; Basophil% 0.2 % (0-1); Eosinophil# 0.01 X10^3/uL; Eosinophils% 0.1 % (0-5); Hematocrit 31.3 % (40-54); Hemoglobin 9.5 g/dL (13.0-16.5); Lymphocyte # 0.97 X10^3/ul (0.83-4.51); Lymphocyte % 7.3 % (19-41); Mean Corp Hgb Conc 30.4 g/dL (32-36); Mean Corpuscular Hgb 28.9 pg (27.0-32.0); Mean Corpuscular Volume 95.1 fL (80-94); Mean Platelet Vol. 11.6 fl (6.2-12.0); Monocyte# 0.56 X10^3/uL; Monocyte% 4.2 % (0-10); NRBC Flagged by Analyzer 0 % (0-5); Neutrophil # 11.48 X10^3/uL (2.7-7.7); Neutrophil % 86.2 % (47-70); POSITIVE MORPHOLOGY YES; Platelet Count 172 K/mm3 (150-450); RBC Distribution Width CV 14.9 % (11.6-14.6); RBC Distribution Width SD 52.7 fl (35.1-43.9); Red Blood Count 3.29 M/mm3 (4.6-6.2); White Blood Count 13.3 K/mm3 (4.4-11.0)
[2022-12-12 05:08] LABS: Differential Indicated SCAN CRITERIA MET
[2022-12-12 05:21] LABS: Anion Gap 6 (5-15); BUN 47 mg/dL (7-18); BUN/Creat Ratio 29.7 RATIO (10-20); Calcium,Total 8.2 mg/dL (8.5-10.1); Chloride 110 mmol/L (98-107); Creatinine, Serum 1.58 mg/dL (0.70-1.30); EST Glomerular Filtration Rate 46 mL/min (>60); Est Glom Filt Rate - Afr Amer 56 mL/min (>60); Estimated Creatinine Clearance 49.14 ml/min; Glucose 225 mg/dL (74-106); Potassium 4.4 mmol/L (3.5-5.1); Sodium Level 141 mmol/L (136-145)
[2022-12-12 05:25] LABS: Vancomycin, Trough Level 12.7 ug/mL (5.0-15.0)
--- NOTE | 2022-12-12 05:35 | PHA.PHARE_ITS ---
Consult Antibiotic Management Pharmacy has been consulted to manage selected antiobiotic: Vancomycin Type of Intervention Type of Consult: Follow-up Suspected Infection Suspected Infection: Sepsis Labs Labs: Sodium 141 mmol/L (136-145) 12/12/22 03:58 Potassium 4.4 mmol/L (3.5-5.1) 12/12/22 03:58 Chloride 110 mmol/L (98-107) H 12/12/22 03:58 Carbon Dioxide 25.0 mmol/L (21.0-32.0) 12/12/22 03:58 Anion Gap 6 (5-15) 12/12/22 03:58 BUN 47 mg/dL (7-18) H 12/12/22 03:58 Creatinine 1.58 mg/dL (0.70-1.30) H 12/12/22 03:58 Est GFR (MDRD) Af Amer 56 mL/min (>60) L 12/12/22 03:58 Est GFR (MDRD) Non-Af 46 mL/min (>60) L 12/12/22 03:58 BUN/Creatinine Ratio 29.7 RATIO (10-20) H 12/12/22 03:58 Glucose 225 mg/dL (74-106) H 12/12/22 03:58 Vancomycin Trough 12.7 ug/mL (5.0-15.0) 12/12/22 03:58 Microbiology Microbiology: Microbiology 12/10/22 10:15 Wound - Sacral Gram Stain - Final 12/10/22 10:15 Wound - Sacral Wound Culture - Preliminary Gram negative rebecca 12/10/22 08:00 Urine Catheter - Catheter Legionella Antigen - Final 12/10/22 08:00 Urine Catheter - Catheter Streptococcus pneumoniae Antigen (M - Final 12/10/22 01:23 Nasal Secretion SARS-CoV-2 & FLU Antigen (Rapid) - Final Dosing Weight Weight used for dosin.7 kg Estimated Creatinine Clearance Estimated Creatinine Clearance: 62.4 -ABW Goal Trough Goal Trough: 15-20 mcg/mL Pharmacy Plan for Drug Dosing Pharmacy Plan for Drug Dosing: Vancomycin trough level of 12.7 was below the target range of 15-20. Per a minoglycoside dosing calculator, a new dose of 750mg q12h should give an estimated trough of 16.6. Another trough level will be drawn prior to the fourth dose of this new regimen. Pharmacy Service will continue to monitor and adjust dosing as required. Follow-Up Labs Follow-Up Labs: Trough: Vancomycin Date/Time Labs Ordered Labs to be done on [date and time ordered]: 12/14/22 @2673
[2022-12-12] MEDS: Heparin Injection (Vial) 5,000 UNIT/ML VIAL 5000 UNIT SC ×3 (06:42→22:41)
[2022-12-12] MEDS: Insulin Lispro 100 UNIT/ML INSULN.PEN SC ×4 (06:42→22:57)
[2022-12-12] MEDS: Hydrocortisone Sod Succinate 100 MG/2 ML Vial IV (06:42)
[2022-12-12] MEDS: Ipratropium/Albuterol Sulfate 3 ML AMPUL.NEB INHALATION ×4 (07:05→19:24)
[2022-12-12 07:08] LABS: Bedside Glucose 203 mg/dL (74-106)
[2022-12-12] MEDS: Juven (unflavored) Packet 1 PACKET PO ×2 (08:59→17:18)
[2022-12-12] MEDS: Pantoprazole Sodium 40 MG Tablet PO (09:01)
[2022-12-12] MEDS: Loratadine 10 MG Tablet PO (09:01)
[2022-12-12] MEDS: Clopidogrel Bisulfate 75 MG Tablet PO (09:01)
[2022-12-12] MEDS: Aspirin 81 MG TAB.CHEW PO (09:02)
[2022-12-12] MEDS: Amantadine 100 MG Capsule PO (09:02)
[2022-12-12] MEDS: Senna/Docusate Sodium 1 Tablet PO ×2 (09:02→22:41)
[2022-12-12] MEDS: DULoxetine Hcl 60 MG Capsule PO ×2 (09:02→22:41)
[2022-12-12] MEDS: DAKIN'S SOL HALF STRENGTH (=0.25%) 1 APPLIC TOPICAL (10:44)
[2022-12-12] MEDS: Insulin Lispro 100 UNIT/ML INSULN.PEN 15 UNIT SC ×3 (11:42→22:57)
[2022-12-12] MEDS: Menthol/Lanolin/Calamine/Znox 113 GM Tube 1 APPLIC TOPICAL ×2 (11:45→22:39)
[2022-12-12 11:55] LABS: Bedside Glucose 354 mg/dL (74-106)
--- NOTE | 2022-12-12 13:59 | PCM.PN.HOSP ---
Reason for Visit Reason for Visit: Fever Objective Data Objective Data Vital Signs: Vital Signs Temp Pulse Resp BP Pulse Ox O2 Del Method O2 Flow Rate 97.9 F 83 24 H 123/58 H 96 Nasal Cannula 3 12/12/22 08:00 12/12/22 10:52 12/12/22 10:52 12/12/22 10:00 12/12/22 10:00 12/12/22 10:00 12/12/22 10:00 FiO2 30 12/12/22 07:08 Oxygen Flow Rate (L/min) 3 Oxygen Delivery Method Nasal Cannula Weight: 143.2 kg Body Mass Index (BMI) 40.5 Intake & Output: Intake and Output for Last 24 Hours 12/10/22 12/11/22 12/12/22 23:59 23:59 23:59 Intake Total 3696.57 / 3705.97 936.87 / 936.87 400 / 400 Output Total 1035 / 1785 2600 / 2975 950 / 950 Balance 2661.57 / 1920.97 -1663.13 / -2038.13 -550 / -550 Lab / Micro Data 12/12/22 03:58 12/12/22 03:58 Labs: Laboratory Results - last 24 hr 12/11/22 16:40: POC Glucose 293 H 12/11/22 21:29: POC Glucose 181 H 12/12/22 03:58: WBC 13.3 H, RBC 3.29 L, Hgb 9.5 L, Hct 31.3 L, MCV 95.1 H, MCH 28.9, MCHC 30.4 L, RDW Std Deviation 52.7 H, RDW Coeff of Sherin 14.9 H, Plt Count 172, MPV 11.6, Immature Gran % (Auto) 2.000 H, Neut % (Auto) 86.2 H, Lymph % (Auto) 7.3 L, Stark % (Auto) 4.2, Eos % (Auto) 0.1, Baso % (Auto) 0.2, Absolute Neuts (auto) 11.5 H, Absolute Lymphs (auto) 0.97, Nucleated RBC % 0, Sodium 141, Potassium 4.4, Chloride 110 H, Carbon Dioxide 25.0, Anion Gap 6, BUN 47 H, Creatinine 1.58 H, Estim Creat Clear Calc 49.14, Est GFR (MDRD) Af Amer 56 L, Est GFR (MDRD) Non-Af 46 L, BUN/Creatinine Ratio 29.7 H, Glucose 225 H, Calcium 8.2 L, Vancomycin Trough 12.7 12/12/22 06:40: POC Glucose 203 H 12/12/22 11:38: POC Glucose 354 H Micro: Microbiology 12/10/22 10:15 Wound - Sacral Gram Stain - Final 12/10/22 10:15 Wound - Sacral Wound Culture - Preliminary Proteus mirabilis Gram positive organism 12/10/22 10:15 Wound - Sacral Anaerobic Culture - Preliminary 12/10/22 08:00 Urine Catheter - Catheter Legionella Antigen - Final 12/10/22 08:00 Urine Catheter - Catheter Streptococcus pneumoniae Antigen (M - Final 12/10/22 01:23 Nasal Secretion SARS-CoV-2 & FLU Antigen (Rapid) - Final Physical Exam Const alert, oriented x3 and no apparent distress; Negative for average body habitus or healthy appearing Constitutional Narrative: Morbidly obese, older, white male, sitting up in bed with nasal cannula in place--> satting 97% on 3 L, watching television, at bedside, chronically ill-appearing HEENT head/scalp atraumatic and moist oral mucous membranes HEENT Narrative: Mallampati 4, no thrush Resp no retractions and no use of accessory muscles Resp Narrative: Very mild tachypnea however respiratory rates have significantly improved with no signs of extremis Auscultation: rhonchi throughout (Improving); Negative for rales or wheezes Cardio regular rate, regular rhythm, S1 normal heart sound, S2 normal heart sound, no murmurs, no rub, no gallops and no clicks GI normal to inspection, nondistended, normoactive bowel sounds, soft to palpation and non-tender GI Narrative: Large protuberant abdomen, ostomy in place with good output, suprapubic catheter in place with good output Neuro oriented x3 Neuro Narrative: Moves bilateral upper extremities symmetrically, weakness bilateral lower extremities, assessment is difficult because he is bedbound at this time Speech: speech normal Psych Psych Narrative: Affect is better today, eye contact is good, patient interacts appropriately Assessment & Plan Assessment/Plan (1) Septic shock: (2) Acute kidney injury superimposed on CKD: (3) Lactic acidosis: (4) Abnormal chest x-ray: (5) Leukocytosis: (6) Acute respiratory failure with hypoxia: PLAN: Plan Septic shock -Source is currently unknown however suspect UTI versus sacral pressure ulcer versus pneumonia or combination of the above -Blood cultures remain pending -Urine culture is positive for Proteus that is sensitive to cefepime -His wound culture from his sacral decubitus ulcer is growing Proteus and a unidentified gram-positive organism -Wean Solu-Cortef to 50 twice daily--> we will continue to wean as blood pressure allows -Continue with vancomycin and cefepime for now until cultures are finalized -Await culture results may need ID -Okay to consult hospice today as patient is more alert and can participate in conversation -Hospice meeting is today at [facility] on chronic hypoxic respiratory failure -Patient has clarified his oxygen dependency and he states he is on 2 L at baseline -Patient is now on his baseline supplemental oxygen -CT of the chest showed a left lower lobe infiltrate with increased markings at the right lung base -Was initiated on a p.o. diet by speech therapy -Patient is unfortunately not been able to produce a sputum culture -As needed albuterol and scheduled ipratropium Leukocytosis -Continuing to trend down EMANUEL on CKD stage IIIb -Baseline serum creatinine is 1.45-1.6 -Serum creatinine on presentation was 2.62 -Creatinine is trending down and currently 1.58 and back to his baseline -Keep MAP greater than 65 -Avoid nephrotoxins History of stroke -Stroke occurred in 2019 -Had ischemic event and then fell down steps and had multiple head bleeds -Remains partially paralyzed and largely bedridden -Has an ostomy and a chronic suprapubic catheter -Continue aspirin and Plavix CAD/HTN/HPL/history of ischemic cardiomyopathy -CABG 2001 -PCI 2020 -Recent echocardiogram from 07/27/2022 shows an EF of 45%, mild global hypokinesis of the LV and stage I diastolic dysfunction with mild biatrial enlargement -Hold carvedilol, and Aldactone--> we will slowly reintroduce medications once blood pressure remained stable and starts to show signs of elevation -Restart home Lasix at 40 mg daily tomorrow--> typically takes 40 twice daily -Continue statin, aspirin, Plavix DM-2 -Continue sliding scale -Continue lispro every 3 times daily with meals--> 15 units - add basal insulin 10 units at at bedtime--> fasting sugar is greater than 200 this morning -Blood sugar control is improving -Anticipate sugars to be elevated due to hydrocortisone -Accu-Cheks every 6 GERD -Continue PPI BPH -Patient with suprapubic catheter -No reason for Flomax will discontinue Depression/anxiety -Continue home trazodone -continue home duloxetine -Discontinue fluoxetine Diabetic neuropathy -Continue gabapentin at current dose Parkinson's disease -Continue Mirapex Morbid obesity -BMI 40.5 -Complicates treatment, prognosis, outcomes DVT prophylaxis -3 times daily heparin CODE STATUS -DNR CCA no intubation no CPR Charges/Coding Visit Charges Inpatient E&M: 66336 Subs Hosp L2
[2022-12-12 18:10] LABS: Bedside Glucose 305 mg/dL (74-106)
[2022-12-12] MEDS: Pravastatin 80 MG Tablet PO (22:39)
[2022-12-12] MEDS: Pramipexole Di-HCl 0.25 MG Tablet PO (22:40)
[2022-12-12] MEDS: traZODone 50 MG Tablet 150 MG PO (22:41)
[2022-12-12] MEDS: Hydrocortisone Sod Succinate 100 MG/2 ML Vial 50 MG IV (22:42)
[2022-12-12] MEDS: Gabapentin 100 MG Capsule 200 MG PO (22:48)
[2022-12-12] MEDS: MELATONIN 3 MG TABLET PO (22:48)
[2022-12-12] MEDS: Insulin Glargine-YFGN 100 UNIT/ML Pen 10 UNIT SC (22:56)
[2022-12-12 23:44] LABS: Bedside Glucose 264 mg/dL (74-106)
[2022-12-13 03:19] VITALS: BMI 40.9
--- NOTE | 2022-12-13 03:36 | CPS ---
RN placed patient back on [place].
[2022-12-13 04:14] VITALS: BP 146/61; PULSE 86; RESP 16; TEMP 35.8; O2SAT 99
[2022-12-13 05:02] VITALS: PULSE 70; RESP 12; RESP 20; O2SAT 96
[2022-12-13] MEDS: Heparin Injection (Vial) 5,000 UNIT/ML VIAL 5000 UNIT SC (06:21)
[2022-12-13 07:17] VITALS: PULSE 80; RESP 18; O2SAT 89
[2022-12-13] MEDS: Ipratropium/Albuterol Sulfate 3 ML AMPUL.NEB INHALATION ×2 (07:17→11:11)
[2022-12-13 07:19] LABS: Absolute Lymphocyte Count 1.51 X10^3/uL (0.83-4.51); Absolute Neutrophil Count 8.7 X10^3/uL (2.0-7.7); Basophil# 0.05 X10^3/uL; Basophil% 0.4 % (0-1); Eosinophil# 0.05 X10^3/uL; Eosinophils% 0.4 % (0-5); Hematocrit 33.3 % (40-54); Hemoglobin 10.2 g/dL (13.0-16.5); Lymphocyte # 1.51 X10^3/ul (0.83-4.51); Lymphocyte % 13.4 % (19-41); Mean Corp Hgb Conc 30.6 g/dL (32-36); Mean Corpuscular Hgb 28.5 pg (27.0-32.0); Mean Platelet Vol. 11.5 fl (6.2-12.0); Monocyte# 0.73 X10^3/uL; Monocyte% 6.5 % (0-10); NRBC Flagged by Analyzer 0 % (0-5); Neutrophil # 8.72 X10^3/uL (2.7-7.7); Neutrophil % 77.2 % (47-70); Platelet Count 181 K/mm3 (150-450); RBC Distribution Width CV 14.6 % (11.6-14.6); RBC Distribution Width SD 49.8 fl (35.1-43.9); Red Blood Count 3.58 M/mm3 (4.6-6.2); White Blood Count 11.3 K/mm3 (4.4-11.0)
[2022-12-13 07:57] LABS: ALB/GLOB Ratio 0.5 RATIO (0.9-2.4); AST(SGOT) 30 U/L (15-37); Alanine Aminotransfer ALT/SGPT 42 U/L (16-61); Albumin, Serum 2.1 g/dL (3.2-5.0); Alkaline Phosphatase 77 U/L (45-117); Anion Gap 5 (5-15); BUN 44 mg/dL (7-18); BUN/Creat Ratio 30.6 RATIO (10-20); Calcium,Total 8.9 mg/dL (8.5-10.1); Chloride 110 mmol/L (98-107); Creatinine, Serum 1.44 mg/dL (0.70-1.30); EST Glomerular Filtration Rate 51 mL/min (>60); Est Glom Filt Rate - Afr Amer 62 mL/min (>60); Estimated Creatinine Clearance 53.91 ml/min; Globulin 4.2 g/dL (2.2-4.2); Glucose 194 mg/dL (74-106); Magnesium 1.9 mg/dL (1.6-2.6); Phosphorus 2.3 mg/dL (2.5-4.9); Potassium 3.9 mmol/L (3.5-5.1); Protein, Total 6.3 g/dL (6.4-8.2); Sodium Level 138 mmol/L (136-145)
[2022-12-13 08:05] LABS: Bedside Glucose 195 mg/dL (74-106)
[2022-12-13] MEDS: Insulin Lispro 100 UNIT/ML INSULN.PEN 15 UNIT SC ×2 (08:18→11:44)
[2022-12-13] MEDS: Insulin Lispro 100 UNIT/ML INSULN.PEN SC ×2 (08:19→11:45)
[2022-12-13] MEDS: Juven (unflavored) Packet 1 PACKET PO (08:21)
[2022-12-13] MEDS: Aspirin 81 MG TAB.CHEW PO (08:22)
[2022-12-13] MEDS: Pantoprazole Sodium 40 MG Tablet PO (08:22)
[2022-12-13] MEDS: Senna/Docusate Sodium 1 Tablet PO (08:22)
[2022-12-13] MEDS: DULoxetine Hcl 60 MG Capsule PO (08:22)
[2022-12-13] MEDS: Hydrocortisone Sod Succinate 100 MG/2 ML Vial 50 MG IV (08:24)
[2022-12-13] MEDS: Clopidogrel Bisulfate 75 MG Tablet PO (08:24)
[2022-12-13] MEDS: Furosemide 40 MG Tablet PO (08:24)
[2022-12-13] MEDS: Loratadine 10 MG Tablet PO (08:24)
[2022-12-13] MEDS: Amantadine 100 MG Capsule PO (08:25)
[2022-12-13 10:00] VITALS: BP 121/58; PULSE 86; RESP 18; TEMP 36.2; O2SAT 96
--- NOTE | 2022-12-13 10:29 | TREXTCAR_ITS ---
Diet Diet Order/Speech Therapy: 12/11/22 09:59 Diet: Consistent Carb - Calorie Controlled Food consistency:: Regular Liquid Consistency:: Regular/Thin Dietary Modifications:: Cardiac / Heart Healthy Sodium Restricted Is pt able to select menu?: No How many daily calories?: 2000 calorie Routine Orders/Code Status Suppository Frequency: Daily PRN O2 Liters per Minute: 2 O2 Frequency: Continuous Keep PO Greater than or Equal to (%): 88 Code Status: DNRCC (Patient will be admitted to hospice upon arrival to intermediate facility) Wound(s) sacrum: Wound Type: Pressure Injury Dressing Change: Dakins moistened gauze Problem/Diagnosis (1) Septic shock: Status: Acute Code(s): A41.9 - Sepsis, unspecified organism; R65.21 - Severe sepsis with septic shock (2) Acute kidney injury superimposed on CKD: Status: Chronic Code(s): N17.9 - Acute kidney failure, unspecified; N18.9 - Chronic kidney disease, unspecified (3) Lactic acidosis: Status: Acute Code(s): E87.20 - Acidosis, unspecified (4) Abnormal chest x-ray: Status: Acute Code(s): R93.89 - Abnormal findings on diagnostic imaging of other specified body structures (5) Leukocytosis: Status: Acute Code(s): D72.829 - Elevated white blood cell count, unspecified (6) Acute respiratory failure with hypoxia: Status: Acute Code(s): J96.01 - Acute respiratory failure with hypoxia Allergies/Procedures Done in Hospital Allergies atorvastatin Allergy (Verified 12/10/22 00:51) PT UNSURE OF REACTION cilostazol Allergy (Verified 12/10/22 00:51) Hives colestipol Allergy (Verified 12/10/22 00:51) Hives diltiazem Allergy (Verified 12/10/22 00:51) Hives gemfibrozil Allergy (Verified 12/10/22 00:51) Hives naproxen [From Naprosyn] Allergy (Verified 12/10/22 00:51) Hives niacin Allergy (Verified 12/10/22 00:51) PT UNSURE OF REACTION Nitrate Analogues Allergy (Verified 12/10/22 00:51) Hives Penicillins Allergy (Verified 12/10/22 00:51) Hives pravastatin Allergy (Verified 12/10/22 00:51) NEEDS FOLLOW-UP procainamide Allergy (Verified 12/10/22 00:51) Hives procaine Allergy (Verified 12/10/22 00:51) NEEDS FOLLOW-UP rosuvastatin Allergy (Verified 12/10/22 00:51) Hives simvastatin Allergy (Verified 12/10/22 00:51) Hives isosorbide Adverse Reaction (Severe, Verified 12/10/22 00:51) Unknown Procedures: EKG and - (Chest x-ray/pelvic CT/chest CT) Type of Care/Length of Stay Estimated LOS: More Than 30 Days Type of Care Needed: Intermediate Rehab Potential: Poor Prognosis: Poor Additional Orders/Day of Discharge Day of Discharge: 12/13/22 Dietary and Speech Recommendations Dietitian Recommendations/Changes: Continue 2000 calorie/consistent carbohydrate; cardiac/sodium-restricted with fluid restriction as per physician and consistency/texture as per [employer]. Continue [place] BID for wound healing. Additional ONS as needed once PO established with meals. Discharge Plan Admission Admit Date/Time: 12/10/22 04:18 Attending Provider: Jenniffer Padilla Primary Care Provider: Phillip Lindo Consulting Providers: Mir Hunter; Aris Wilkins; Dayanna Robbins; Anaya Rosario; Flor Bishop NP; Randy Clayton Discharge Orders/Prescriptions Prescriptions: No Action aluminum-magnesium hydroxide 225-200 mg/5 mL suspension 30 ml PO Q4H PRN (Reason: GI distress) bisacodyl 10 mg suppository 10 mg KS DAILY PRN (Reason: constipaiton) duloxetine 60 mg capsule,delayed release(DR/EC) 60 mg PO BID Fleet Enema 19-7 gram/118 mL enema 118 ml KS ONCE PRN (Reason: Constipation) guaifenesin 200 mg/5 mL liquid 400 mg PO Q4H PRN (Reason: Cough) magnesium hydroxide [Milk of Magnesia] 400 mg/5 mL suspension 30 ml PO DAILY PRN (Reason: consipation) nystatin 100,000 unit/gram powder 1 applic topical DAILY PRN (Reason: excoriation) fluoxetine 40 mg capsule 60 mg PO QPM Entresto 49-51 mg tablet 1 tab PO BID Qty: 60 11RF trazodone 150 mg tablet 150 mg PO QHS amantadine HCl 100 MG capsule 100 mg PO DAILY pravastatin 80 MG tablet 80 mg PO QHS pantoprazole 40 MG tablet 40 mg PO DAILY pramipexole 0.25 MG tablet 0.25 mg PO QHS nitroglycerin 0.4 MG tablet, sublingual 0.4 mg sublingual PRN PRN (Reason: CHEST PAIN) aspirin 81 MG tablet,chewable 81 mg PO DAILY@0800 sennosides-docusate sodium 8.6-50 mg tablet 1 tab-cap PO BID melatonin 3 MG tablet,disintegrating 3 mg PO QHS tamsulosin 0.4 mg Capsule 0.4 mg PO QHS fluticasone propionate 110 mcg/actuation Hfa Aerosol Inhaler 1 puff INHALATION BID insulin aspart U-100 [Novolog FlexPen U-100 Insulin] 100 unit/mL (3 mL) Insulin Pen 15 unit SUBCUT TIDCM carvedilol 25 mg Tablet 25 mg PO BID Qty: 0 0RF potassium chloride 20 mEq tablet,ER particles/crystals 40 meq PO DAILY 90 Days Qty: 90 0RF spironolactone 25 mg tablet 25 mg PO DAILY Qty: 30 0RF cetirizine [Zyrtec] 10 mg Tablet 10 mg PO DAILY gabapentin 300 mg capsule 300 mg PO QHS furosemide 40 mg tablet 40 mg PO BID ipratropium-albuterol 0.5 mg-3 mg(2.5 mg base)/3 mL Solution For Nebulization 3 ml inhalation Q4HWA.RT Qty: 0 0RF albuterol sulfate 2.5 mg /3 mL (0.083 %) Solution For Nebulization 2.5 mg inhalation Q2H PRN PRN (Reason: SOB/Wheezing) Qty: 0 0RF prednisone 20 mg Tablet 40 mg PO BREAKFAST Qty: 0 0RF insulin lispro [Humalog KwikPen Insulin] 100 unit/mL Insulin Pen See Protocol subcut ACHS Qty: 0 0RF Protocol: 4. Sliding Scale Insulin High-Med Dosing Condition: 150-199 mg/dl = 2 units Condition: 200-259 mg/dl = 4 units Condition: 260-324 mg/dl = 6 units Condition: 325-374 mg/dl = 8 units Condition: 375-409 mg/dl = 10 units Condition: 410-449 mg/dl = 11 units Condition: Greater than 449 call physician Protocol Text: - Use for Total Daily Dose of Insulin 56-80 units - Patient who are insulin resistant or septic HIGH MEDIUM DOSING ALGORITHM menthol-zinc oxide [Calmoseptine] 0.44-20.6 % Ointment 1 applic topical BID Qty: 0 0RF Protocol: *Topical Application Instructions APPLICATION INSTRUCTIONS: groin/ coccyx oxycodone 5 MG tablet 5 mg PO TID 2 Days Qty: 6 0RF acetaminophen 325 mg tablet 650 mg PO Q4H PRN (Reason: PAIN/FEVER) acetaminophen 650 mg suppository 650 mg KS Q4H PRN (Reason: fever or pain) metformin 500 mg tablet 500 mg PO BID clopidogrel 75 mg tablet 75 mg PO DAILY Glucagon Emergency Kit (human) 1 mg recon soln 1 mg IM Q20M PRN (Reason: hypoglycemia) Rx Instructions: until target blood sugar attained dextrose [Glucose Gel] 40 % gel 15 g PO Q15M PRN (Reason: hypoglycemia) Rx Instructions: until symptoms of low blood sugar are controlled clindamycin HCl [Cleocin HCl] 300 mg capsule 300 mg PO Q6H Qty: 40 0RF Referrals / Follow Up: Phillip Lindo MD [Primary Care Provider] -
--- NOTE | 2022-12-13 10:31 | DS.PCM_ITS ---
Providers Date of Admission: 12/10/22 Date of Discharge: 12/13/22 Primary Care Physician: Dr. 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 Comment: Reason for Consult:: Sacral decubitus ulcer 12/11/22 08:34 Consult: Hospice / Palliative Care Routine Consulting Provider: [facility] Reason for Consult: extensive history, family request EMERGENT Consult: No MD Notified: Yes Date Notified: 12/11/22 Time Notified: 08:35 Method of Notification: Verbal Reason For Visit: SEPSIS Diagnosis Discharge Diagnosis (1) Septic shock: Status: Acute Code(s): A41.9 - Sepsis, unspecified organism; R65.21 - Severe sepsis with septic shock (2) Acute kidney injury superimposed on CKD: Status: Chronic Code(s): N17.9 - Acute kidney failure, unspecified; N18.9 - Chronic kidney disease, unspecified (3) Lactic acidosis: Status: Acute Code(s): E87.20 - Acidosis, unspecified (4) Abnormal chest x-ray: Status: Acute Code(s): R93.89 - Abnormal findings on diagnostic imaging of other specified body structures (5) Leukocytosis: Status: Acute Code(s): D72.829 - Elevated white blood cell count, unspecified (6) Acute respiratory failure with hypoxia: Status: Acute Code(s): J96.01 - Acute respiratory failure with hypoxia Medications at Discharge Home Medications amantadine HCl 100 mg capsule 100 mg PO DAILY PARKINSON 04/17/18 pantoprazole 40 mg tablet,delayed release 40 mg PO DAILY STOMACH 04/17/18 pramipexole 0.25 mg tablet 0.25 mg PO QHS PARKINSONS 04/17/18 pravastatin 80 mg tablet 80 mg PO QHS CHOLESTEROL 04/17/18 nitroglycerin 0.4 mg sublingual tablet 0.4 mg sublingual PRN PRN CHEST PAIN 02/20/19 aspirin 81 mg chewable tablet 81 mg PO DAILY@0800 heart health 02/24/19 melatonin 3 mg disintegrating tablet 3 mg PO QHS sleep 09/14/20 fluticasone propionate 110 mcg/actuation HFA aerosol inhaler 1 puff inhalation BID allergies 02/17/21 insulin aspart U-100 100 unit/mL (3 mL) subcutaneous pen (Novolog FlexPen U-100 Insulin aspart) 15 unit subcut TIDCM blood sugar 02/17/21 carvedilol 25 mg tablet 25 mg PO BID #0 tabs 02/20/21 potassium chloride 20 mEq tablet,extended release(part/cryst) 40 meq (2 x 20 mEq) PO DAILY supplement 90 days #90 tabs 02/20/21 aluminum-magnesium hydroxide 225 mg-200 mg/5 mL oral suspension 30 ml PO Q4H PRN GI distress 10/11/21 bisacodyl 10 mg rectal suppository 10 mg MN DAILY PRN constipaiton 10/11/21 duloxetine 60 mg capsule,delayed release 60 mg PO BID depression 10/11/21 guaifenesin 200 mg/5 mL oral liquid 400 mg PO Q4H PRN Cough 10/11/21 magnesium hydroxide 400 mg/5 mL oral suspension (Milk of Magnesia) 30 ml PO DAILY PRN consipation 10/11/21 nystatin 100,000 unit/gram topical powder 1 applic topical DAILY PRN excoriation 10/11/21 sacubitril 49 mg-valsartan 51 mg tablet (Entresto) 1 tab PO BID #60 tabs 10/11/21 sodium phosphates 19 gram-7 gram/118 mL enema (Fleet Enema) 118 ml MN ONCE PRN Constipation 10/11/21 cetirizine 10 mg tablet (Zyrtec) 10 mg PO DAILY sinus 07/27/22 gabapentin 300 mg capsule 300 mg PO QHS neuropathy 07/27/22 furosemide 40 mg tablet 40 mg PO BID CHF 10/05/22 albuterol sulfate 2.5 mg/3 mL (0.083 %) solution for nebulization 2.5 mg (3 mL) inhalation Q2H PRN PRN SOB/Wheezing #0 mL 10/08/22 insulin lispro 100 unit/mL subcutaneous pen (Humalog KwikPen (U-100) Insulin) See Protocol subcut ACHS #0 mL 10/08/22 ipratropium 0.5 mg-albuterol 3 mg (2.5 mg base)/3 mL nebulization soln 3 ml inhalation Q4HWA.RT #0 mL 10/08/22 menthol 0.44 %-zinc oxide 20.6 % topical ointment (Calmoseptine) 1 applic topical BID #0 grams 10/08/22 oxycodone 5 mg tablet 5 mg PO TID 2 days #6 tabs 10/08/22 sennosides 8.6 mg-docusate sodium 50 mg tablet 1 tab-cap PO BID constipation 10/31/22 trazodone 150 mg tablet 150 mg PO QHS 10/31/22 acetaminophen 325 mg tablet 650 mg PO Q4H PRN PAIN/FEVER 12/10/22 acetaminophen 650 mg rectal suppository 650 mg MN Q4H PRN fever or pain 12/10/22 clopidogrel 75 mg tablet 75 mg PO DAILY 12/10/22 dextrose 40 % oral gel (Glucose Gel) 15 g PO Q15M PRN hypoglycemia 12/10/22 glucagon 1 mg solution for injection (Glucagon Emergency Kit) 1 mg IM Q20M PRN hypoglycemia 12/10/22 metformin 500 mg tablet 500 mg PO BID 12/10/22 cefdinir 300 mg capsule 300 mg PO BID #20 caps 12/13/22 prednisone 20 mg tablet 40 mg (2 x 20 mg) PO BREAKFAST #0 tabs 12/13/22 Hospital Course Operations None Procedures EKG and - (Chest x-ray/CT pelvis/CT chest) Summary of Care Provided Minutes Spent on Discharge: 40 Hospital Course: Mr. Vargas is a 72-year-old white male who presented to the emergency department at [facility] early on the morning of 12/10/2022 with a chief complaint of fever and mental status change. He had also developed some hypotensive episodes at the nursing facility at which she currently resides. 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 He presented to the emergency department on November 09 at noon secondary to a syncopal episode he suffered at the facility at which she resides and there was question of urinary tract infection at that time. He has a chronic indwelling suprapubic catheter and there was concern of cellulitis with his chronic sacral pressure ulcer. He was started on oral antibiotics and discharged back to the residential. He subsequently then developed a fever and mental status change along with hypotension was brought back to the emergency department for reevaluation. Upon presentation he had a temperature of 100.6, was tachycardic with a heart rate of 113, initial blood pressure was 98/50 and initially responded to IV fluids however developed subsequent hypotension after admission with a blood pressure of 70/31 and was started on pressors., respiratory rate was 42 and oxygen saturation was 92% on 6 L nasal cannula. Fluid resuscitation was deferred due to the patient having diffuse coarse crackles throughout his lungs. This morning his white count was up to 17.3 from 16.1 yesterday, he had a persistent left shift with an 87.1% neutrophilia. A VBG was performed patient was not found to be acidotic. His chemistry showed normal electrolytes however he had a rising serum BUN and creatinine currently at 48 and 2.62. Baseline serum creatinine runs anywhere from 1.45-1.6. His blood sugar was markedly elevated at 263 and his serum lactate was 2.9. His BNP was elevated at 423.4 and a procalcitonin was obtained and found to be 27.12. He was hydrated gently with IV fluids but fluid boluses were not given due to his history of heart failure and he was started on Levophed as well as IV broad-spectrum antibiotics with cefepime and vancomycin initially. Strep pneumo and Legionella antigens were negative. We did obtain a CTA of the chest to further evaluate his abnormal chest x-ray and there was an infiltrate noted as well. We did start stress dose steroids 100 of Solu-Cortef 3 times daily as the patient had been on prednisone previously this was weaned throughout his hospital stay and he will go back to the facility on prednisone with a taper over the next 12 days. He initially required BiPAP intervention for acute hypoxic respiratory failure on chronic hypoxic respiratory failure. The patient is on oxygen at 2 L at baseline but required BiPAP with transition to 6 L of oxygen and we progressively were able to transition him back to his baseline oxygen of 2 L. Wound care follow the patient with regards to his sacral pressure ulcer and this appeared as if it might be slightly infected as well. Cultures were taken of his wound on admission. Blood cultures were negative. We were unable to obtain a sputum culture however he was treated for suspected pneumonia. His urine culture grew Proteus. His wound culture grew Proteus. Vancomycin was discontinued once cultures were more clear and he was maintained on cefepime. Organism is resistant to quinolones so we will discharge him with Omnicef for another 10 days of treatment. Upon admission family had requested evaluation by hospice. We did suggest that we should wait till the patient was more mentally able to participate which occurred about after 24 hours of admission. Hospice was consulted and evaluated the patient on 12/12/2022. They felt him appropriate for admission and plan to follow him after discharge at [facility]. We are going to hold his carvedilol and Entresto as his blood pre ssure continues to recover. We were able to reinitiate his Lasix on 12/12/2022. Blood pressure at the time of discharge was running anywhere between systolic of 1 20-1 40. I have recommended that his carvedilol be reinstituted once his systolic pressures are consistently above 140 and his Entresto will be reinstituted when his systolic pressures are consistently above 150. We will discontinue his Aldactone at the time of discharge. We will also discontinue his fluoxetine as this is duplicate and likely will increase risk of side effects. Flomax was discontinued as well given the fact that he has a suprapubic catheter at this time. He was able to be discharged in stable condition to [facility] with hospice following on 12/13/2022. Discharge diagnoses: Septic shock Proteus UTI Proteus wound infection-sacral pressure ulcer Healthcare acquired pneumonia Acute on chronic hypoxic respiratory failure Leukocytosis-resolving EMANUEL-resolved CKD stage IIIb History of stroke CAD Hypertension Hyperlipidemia History of ischemic cardiomyopathy DM-2 GERD BPH Depression Anxiety Diabetic neuropathy Parkinson's disease Morbid obesity Physical Exam Const alert, oriented x3 and no apparent distress; Negative for average body habitus or healthy appearing Constitutional Narrative: Morbidly obese, older, white male, sitting up in bed on 2 L nasal cannula, eating breakfast, at bedside, chronically ill-appearing General Appearance: cooperative, comfortable, well kempt and well developed Orientation / Consciousness: awake, oriented to person, oriented to place and oriented to time Exam Limitations: no limitations Nutritional Appearance: morbidly obese HEENT normocephalic, head/scalp atraumatic and moist oral mucous membranes HEENT Narrative: Mallampati 4, no thrush, mild to moderate hearing loss Resp normal respiratory effort, no retractions and no use of accessory muscles Resp Narrative: Minimally scattered rhonchi much improved Auscultation: rhonchi throughout (Improving); Negative for rales or wheezes Cardio regular rate, regular rhythm, S1 normal heart sound, S2 normal heart sound, no murmurs, no rub, no gallops and no clicks GI normal to inspection, nondistended, normoactive bowel sounds, soft to palpation and non-tender GI Narrative: Large protuberant abdomen, ostomy in place with good output, suprapubic catheter in place with good output Extremity Extremity Narrative: Chronic bilateral lower extremity edema with chronic bilateral lower extremity venous stasis skin changes, no cyanosis or clubbing Skin no jaundice, no petechiae and no mottling Skin Narrative: Sacral decubitus ulcer, bilateral lower extremity venous stasis changes Neuro oriented x3 Neuro Narrative: Moves bilateral upper extremities symmetrically, weakness bilateral lower extremities, assessment is difficult because he is bedbound at this time Speech: speech normal Psych Psych Narrative: Patient is joking with me very pleasant sitting up in bed, eye contact is good and mood is stable Weight / BMI Weight Weight: 144.6 kg Body Mass Index (BMI) 40.9 ABG / Lab / Microbiology Data 12/13/22 05:55 12/13/22 06:10 Laboratory: Laboratory Results - last 24 hr 12/12/22 11:38: POC Glucose 354 H 12/12/22 17:11: POC Glucose 305 H 12/12/22 22:56: POC Glucose 264 H 12/13/22 05:55: WBC 11.3 H, RBC 3.58 L, Hgb 10.2 L, Hct 33.3 L, MCV 93.0, MCH 28.5, MCHC 30.6 L, RDW Std Deviation 49.8 H, RDW Coeff of Sherin 14.6, Plt Count 18 1, MPV 11.5, Immature Gran % (Auto) 2.100 H, Neut % (Auto) 77.2 H, Lymph % (Auto) 13.4 L, [place] % (Auto) 6.5, Eos % (Auto) 0.4, Baso % (Auto) 0.4, Absolute Neuts (auto) 8.7 H, Absolute Lymphs (auto) 1.51, Nucleated RBC % 0 12/13/22 06:10: Sodium 138, Potassium 3.9, Chloride 110 H, Carbon Dioxide 23.0, Anion Gap 5, BUN 44 H, Creatinine 1.44 H, Estim Creat Clear Calc 53.91, Est GFR (MDRD) Af Amer 62, Est GFR (MDRD) Non-Af 51 L, BUN/Creatinine Ratio 30.6 H, Glucose 194 H, Calcium 8.9, Phosphorus 2.3 L, Magnesium 1.9, Total Bilirubin 0.20, AST 30, ALT 42, Alkaline Phosphatase 77, Total Protein 6.3 L, Albumin 2.1 L, Globulin 4.2, Albumin/Globulin Ratio 0.5 L 12/13/22 07:46: POC Glucose 195 H Microbiology: Microbiology 12/10/22 00:55 Blood Culture (Wb) - Anticubital Left Blood Culture - Preliminary No growth in 48 hours. 12/10/22 00:47 Blood Culture (Wb) - Left Wrist Blood Culture - Preliminary No growth in 48 hours. 12/10/22 10:15 Wound - Sacral Gram Stain - Final 12/10/22 10:15 Wound - Sacral Wound Culture - Preliminary Proteus mirabilis Gram positive organism 12/10/22 08:00 Urine Catheter - Catheter Legionella Antigen - Final 12/10/22 08:00 Urine Catheter - Catheter Streptococcus pneumoniae Antigen (M - Final 12/10/22 01:23 Nasal Secretion SARS-CoV-2 & FLU Antigen (Rapid) - Final Meaningful Use Info Meaningful Use Diagnoses (Choose all that apply): None applicable Discharge Plan Admission Admit Date/Time: 12/10/22 04:18 Primary Reason for Your Visit: Fever Attending Provider: Jenniffer Padilla Primary Care Provider: Phillip Lindo Consulting Providers: Mir Hunter; Aris Wilkins; Dayanna Robbins; Anaya Rosario; Flor Bishop NP; Randy Clayton Discharge Orders/Prescriptions Prescriptions: New cefdinir 300 mg capsule 300 mg PO BID Qty: 20 0RF Continued aluminum-magnesium hydroxide 225-200 mg/5 mL suspension 30 ml PO Q4H PRN (Reason: GI distress) bisacodyl 10 mg suppository 10 mg MN DAILY PRN (Reason: constipaiton) duloxetine 60 mg capsule,delayed release(DR/EC) 60 mg PO BID Fleet Enema 19-7 gram/118 mL enema 118 ml MN ONCE PRN (Reason: Constipation) guaifenesin 200 mg/5 mL liquid 400 mg PO Q4H PRN (Reason: Cough) magnesium hydroxide [Milk of Magnesia] 400 mg/5 mL suspension 30 ml PO DAILY PRN (Reason: consipation) nystatin 100,000 unit/gram powder 1 applic topical DAILY PRN (Reason: excoriation) trazodone 150 mg tablet 150 mg PO QHS amantadine HCl 100 MG capsule 100 mg PO DAILY pravastatin 80 MG tablet 80 mg PO QHS pantoprazole 40 MG tablet 40 mg PO DAILY pramipexole 0.25 MG tablet 0.25 mg PO QHS nitroglycerin 0.4 MG tablet, sublingual 0.4 mg sublingual PRN PRN (Reason: CHEST PAIN) aspirin 81 MG tablet,chewable 81 mg PO DAILY@0800 sennosides-docusate sodium 8.6-50 mg tablet 1 tab-cap PO BID melatonin 3 MG tablet,disintegrating 3 mg PO QHS fluticasone propionate 110 mcg/actuation Hfa Aerosol Inhaler 1 puff INHALATION BID insulin aspart U-100 [Novolog FlexPen U-100 Insulin] 100 unit/mL (3 mL) Insulin Pen 15 unit SUBCUT TIDCM potassium chloride 20 mEq tablet,ER particles/crystals 40 meq PO DAILY 90 Days Qty: 90 0RF cetirizine [Zyrtec] 10 mg Tablet 10 mg PO DAILY gabapentin 300 mg capsule 300 mg PO QHS furosemide 40 mg tablet 40 mg PO BID ipratropium-albuterol 0.5 mg-3 mg(2.5 mg base)/3 mL Solution For Nebulization 3 ml inhalation Q4HWA.RT Qty: 0 0RF albuterol sulfate 2.5 mg /3 mL (0.083 %) Solution For Nebulization 2.5 mg inhalation Q2H PRN PRN (Reason: SOB/Wheezing) Qty: 0 0RF insulin lispro [Humalog KwikPen Insulin] 100 unit/mL Insulin Pen See Protocol subcut ACHS Qty: 0 0RF Protocol: 4. Sliding Scale Insulin High-Med Dosing Condition: 150-199 mg/dl = 2 units Condition: 200-259 mg/dl = 4 units Condition: 260-324 mg/dl = 6 units Condition: 325-374 mg/dl = 8 units Condition: 375-409 mg/dl = 10 units Condition: 410-449 mg/dl = 11 units Condition: Greater than 449 call physician Protocol Text: - Use for Total Daily Dose of Insulin 56-80 units - Patient who are insulin resistant or septic HIGH MEDIUM DOSING ALGORITHM menthol-zinc oxide [Calmoseptine] 0.44-20.6 % Ointment 1 applic topical BID Qty: 0 0RF Protocol: *Topical Application Instructions APPLICATION INSTRUCTIONS: groin/ coccyx oxycodone 5 MG tablet 5 mg PO TID 2 Days Qty: 6 0RF acetaminophen 325 mg tablet 650 mg PO Q4H PRN (Reason: PAIN/FEVER) acetaminophen 650 mg suppository 650 mg MN Q4H PRN (Reason: fever or pain) metformin 500 mg tablet 500 mg PO BID clopidogrel 75 mg tablet 75 mg PO DAILY Glucagon Emergency Kit (human) 1 mg recon soln 1 mg IM Q20M PRN (Reason: hypoglycemia) Rx Instructions: until target blood sugar attained dextrose [Glucose Gel] 40 % gel 15 g PO Q15M PRN (Reason: hypoglycemia) Rx Instructions: until symptoms of low blood sugar are controlled prednisone 20 mg Tablet 40 mg PO BREAKFAST Qty: 0 0RF Rx Instructions: 40 mg x 3 days, 30 mg x 3 days, 20 mg x 3 days, 10 mg x 3 days and stop Held Entresto 49-51 mg tablet 1 tab PO BID Qty: 60 11RF Hold Instructions: Until systolic blood pressure is consistently greater than 150 carvedilol 25 mg Tablet 25 mg PO BID Qty: 0 0RF Hold Instructions: Restart once systolic blood pressure is consistently greater than 140 Discontinued fluoxetine 40 mg capsule 60 mg PO QPM tamsulosin 0.4 mg Capsule 0.4 mg PO QHS spironolactone 25 mg tablet 25 mg PO DAILY Qty: 30 0RF clindamycin HCl [Cleocin HCl] 300 mg capsule 300 mg PO Q6H Qty: 40 0RF Referrals / Follow Up: Phillip Lindo MD [Primary Care Provider] - See Referral Note (As needed) Disposition Disposition (needs filled in before D/C Order can be placed): NonSkilled NH/Intermed Care Charges/Coding Visit Charges Inpatient E&M: 64961 SNF Disch >30 Min
[2022-12-13 11:10] VITALS: PULSE 92; RESP 20
[2022-12-13 11:30] LABS: Bedside Glucose 231 mg/dL (74-106)
[2022-12-13] MEDS: Na Biphos/Potassium Phosphate PACKET 1 PACKET PO (11:47)
== END 2022-12-13 13:20 | DRG 698 ==
LOC: ED 04:45 → ICU 05:54 → PCU 12-12 15:57
PROVIDERS: Admitting Provider Hospitalist; Emergency Provider Emergency Medicine; PCP Family Medicine; Visit Provider Internal Medicine
DX: T83.518A Infection and inflammatory reaction due to other urinary catheter, initial encounter (principal); A41.59 Other Gram-negative sepsis; R65.21 Severe sepsis with septic shock; J96.21 Acute and chronic respiratory failure with hypoxia; L89.154 Pressure ulcer of sacral region, stage 4; J18.9 Pneumonia, unspecified organism; I13.0 Hypertensive heart and chronic kidney disease with heart failure and stage 1 through stage 4 chronic kidney disease, or unspecified chronic kidney disease; I69.351 Hemiplegia and hemiparesis following cerebral infarction affecting right dominant side; I50.42 Chronic combined systolic (congestive) and diastolic (congestive) heart failure; N17.9 Acute kidney failure, unspecified; Z68.41 Body mass index [BMI] 40.0-44.9, adult; J44.0 Chronic obstructive pulmonary disease with (acute) lower respiratory infection; L03.312 Cellulitis of back [any part except buttock and flank]; N39.0 Urinary tract infection, site not specified; E11.22 Type 2 diabetes mellitus with diabetic chronic kidney disease; Z79.4 Long term (current) use of insulin; N18.32 Chronic kidney disease, stage 3b; E66.01 Morbid (severe) obesity due to excess calories; G20 Parkinson's disease; E11.40 Type 2 diabetes mellitus with diabetic neuropathy, unspecified; E11.65 Type 2 diabetes mellitus with hyperglycemia; Z93.3 Colostomy status; E78.5 Hyperlipidemia, unspecified; K21.00 Gastro-esophageal reflux disease with esophagitis, without bleeding; I25.5 Ischemic cardiomyopathy; I25.10 Atherosclerotic heart disease of native coronary artery without angina pectoris; F32.A Depression, unspecified; G47.33 Obstructive sleep apnea (adult) (pediatric); F41.9 Anxiety disorder, unspecified; J30.9 Allergic rhinitis, unspecified; F17.210 Nicotine dependence, cigarettes, uncomplicated; N40.0 Benign prostatic hyperplasia without lower urinary tract symptoms; Y84.6 Urinary catheterization as the cause of abnormal reaction of the patient, or of later complication, without mention of misadventure at the time of the procedure; B96.4 Proteus (mirabilis) (morganii) as the cause of diseases classified elsewhere; Z66 Do not resuscitate; Z88.0 Allergy status to penicillin; Z79.82 Long term (current) use of aspirin; Z79.02 Long term (current) use of antithrombotics/antiplatelets; Z95.1 Presence of aortocoronary bypass graft; Z95.5 Presence of coronary angioplasty implant and graft; Z99.81 Dependence on supplemental oxygen; Z79.52 Long term (current) use of systemic steroids; Z79.899 Other long term (current) drug therapy
CPT/HCPCS: 36415; 71045; 71250; 72192; 80048; 80053; 80202; 81001; 82009; 82803; 82962; 83605; 83735; 83880; 84100; 84145; 85018; 85025; 85610; 85730; 87040; 87070; 87075; 87077; 87086; 87088; 87186; 87205; 87428; 87449; 92610; 93005; 94002; 94003; 94640; 94762; 96360; 96361; 97802; 99285; 99406; J7030; J7040; J7050; A4216; J0744